=== PATIENT | female | born 1940 | race Caucasian/White ===

== ENCOUNTER 2016-07-27 20:56 | Inpatient (IN) | payer MEDICARE, OTHER ==
[2016-07-27] MEDS ORDERED: SODIUM CHLORIDE 0.9% 1,000 ML IV ONE (22:56)
[2016-07-27] MEDS ORDERED: HYDROmorphone 1 MG/ML 1 ML SYRINGE IVP STA (22:57)
[2016-07-27] MEDS ORDERED: ONDANSETRON 4 MG/2 ML VIAL IVP STA (22:57)
--- NOTE | 2016-07-27 23:09 | ED ---
Abdominal Pain HPI <Diallo Garza - Last Filed: 07/28/16 03:09> - General Source: patient, RN notes reviewed Mode of arrival: wheelchair Limitations: no limitations <Gissel Tillman - Last Filed: 07/28/16 03:36> - General Chief Complaint: Abdominal Pain Stated Complaint: Vomiting/Abdominal Pain Time Seen by Provider: 07/27/16 22:35 - History of Present Illness Initial Comments: Patient is a 76-year-old female presents emergency room for evaluation of abdominal pain. Patient states the pain began Tuesday night. Patient states the pain has been getting progressively worse over the past few days. Patient states the pain woke her up from her sleep so she decided to come here to be evaluated. Patient states the pain is in her left upper quadrant and radiates to her back. Patient states she's never had pain like this before. Patient states the pain makes her very nauseated and she begins dry heaving. Patient states she has a history of a partial hysterectomy and a total hysterectomy. Patient also states she has history of appendectomy. Patient denies pain or burning during urination, trouble urinating or blood in urine. Patient denies chest pain or shortness of breath. Patient states she has a history of diabetes , COPD. Patient states she has a history of a quadruple bypass in 1999. Patient also states she has an aortic aneurysm. Patient states she's having constant sharp pain in her left upper quadrant. Patient states and taking pain medications at home with no relief of symptoms. (Gissel Tillman) - Related Data Home Medications Medication Instructions Recorded Confirmed Ezetimibe [Zetia] 10 mg PO DAILY 11/20/13 07/27/16 Lovastatin [Mevacor] 10 mg PO HS 11/20/13 07/27/16 glipiZIDE XL [Glucotrol XL] 10 mg PO BID 11/20/13 07/27/16 HYDROcodone/APAP 7.5-325MG [[place] 1 tab PO Q6HR PRN 07/11/15 07/27/16 7.5-325] sitaGLIPtin PHOS/metFORMIN HCL 1 tab PO BID 07/11/15 07/27/16 [Janumet 50-1,000 mg Tablet] Metoprolol Tartrate [Lopressor] 50 mg PO BID 07/27/16 07/27/16 Allergies Allergy/AdvReac Type Severity Reaction Status Date / Time cortisone AdvReac PAIN Verified 07/27/16 23:01 procaine HCl [From Novocain] AdvReac pain Verified 07/27/16 23:01 allergy medicines AdvReac "dries me Uncoded 07/27/16 23:01 out, bloody noses,generalized pain" Review of Systems ROS Other: All systems not noted in ROS Statement are negative. <Diallo Garza - Last Filed: 07/28/16 03:09> ROS Other: All systems not noted in ROS Statement are negative. <Gissel Tillman - Last Filed: 07/28/16 03:36> ROS Statement: Those systems with pertinent positive or pertinent negative responses have been documented in the HPI. Past Medical History Past Medical History: COPD, Diabetes Mellitus, Hyperlipidemia, Hypertension, Myocardial Infarction ([place]), Sleep Apnea/CPAP/BIPAP Additional Past Medical History / Comment(s): parkinsonism Last Myocardial Infarction Date:: 1999 History of Any Multi-Drug Resistant Organisms: None Reported Past Surgical History: Appendectomy, Coronary Bypass/CABG, Heart Catheterization , Hysterectomy Past Anesthesia/Blood Transfusion Reactions: No Reported Reaction Past Psychological History: No Psychological Hx Reported Smoking Status: Former smoker Past Alcohol Use History: None Reported Past Drug Use History: None Reported <Gissel Tillman - Last Filed: 07/28/16 03:36> General Exam <Diallo Garza - Last Filed: 07/28/16 03:09> Limitations: no limitations General appearance: alert, in no apparent distress Head exam: Present: atraumatic, normocephalic, normal inspection Eye exam: Present: normal appearance ENT exam: Present: normal exam Neck exam: Present: normal inspection Respiratory exam: Present: normal lung sounds bilaterally. Absent: respiratory distress Cardiovascular Exam: Present: regular rate, normal rhythm, normal heart sounds GI/Abdominal exam: Present: soft, tenderness (Left upper quadrant). Absent: distended, guarding, rebound Extremities exam: Present: normal inspection Back exam: Present: normal inspection Neurological exam: Present: alert, oriented X3, CN II-XII intact, normal gait Psychiatric exam: Present: normal affect, normal mood Skin exam: Present: warm, dry, intact, normal color. Absent: rash <Gissel Tillman - Last Filed: 07/28/16 03:36> - General Exam Comments Initial Comments: Laying in exam room, no acute distress. (Gissel Tillman) Medical Decision Making - Lab Data Result diagrams: 07/27/16 23:45 07/27/16 23:45 <Diallo Garza - Last Filed: 07/28/16 03:09> - Lab Data Result diagrams: 07/27/16 23:45 07/27/16 23:45 - Radiology Data Radiology results: report reviewed, image reviewed <Gissel Tillman - Last Filed: 07/28/16 03:36> - Medical Decision Making Patient is a 76-year-old female presents to the emergency room for evaluation of left upper quadrant pain. Labs significant for hyperkalemia and renal insufficiency. Patient given D50, insulin and Kayexalate. CT abdomen/pelvis without contrast shows a 8 mm left ureteral stone. Patient states she's felt better after pain medications given. Case discussed with Dr. Garza. Dr. Garza discussed case with Dr. Lazcano. Patient will be admitted under Dr. Jim with urology consult. (Gissel Tillman) - Lab Data Lab Results 07/27/16 07/27/16 07/27/16 Range/Units 23:45 23:45 23:45 WBC 13.5 H (3.8-10.6) k/uL RBC 4.24 (3.80-5.40) m/uL Hgb 13.5 (11.4-16.0) gm/dL Hct 42.2 (34.0-46.0) % MCV 99.4 (80.0-100.0) fL MCH 31.7 (25.0-35.0) pg MCHC 31.9 (31.0-37.0) g/dL RDW 15.4 (11.5-15.5) % Plt Count 218 (150-450) k/uL Neutrophils % 88 % Lymphocytes % 7 % Monocytes % 4 % Eosinophils % 0 % Basophils % 0 % Neutrophils # 11.9 H (1.3-7.7) k/uL Lymphocytes # 0.9 L (1.0-4.8) k/uL Monocytes # 0.5 (0-1.0) k/uL Eosinophils # 0.0 (0-0.7) k/uL Basophils # 0.0 (0-0.2) k/uL Hypochromasia Slight Macrocytosis Slight Sodium 138 (137-145) mmol/L Potassium 6.5 H* (3.5-5.1) mmol/L Chloride 105 (98-107) mmol/L Carbon Dioxide 17 L (22-30) mmol/L Anion Gap 16 mmol/L BUN 39 H (7-17) mg/dL Creatinine 1.90 H (0.52-1.04) mg/dL Est GFR (MDRD) Af Amer 31 (>60 ml/min/1.73 sqM) Est GFR (MDRD) Non-Af 26 (>60 ml/min/1.73 sqM) Glucose 208 H (74-99) mg/dL Calcium 9.5 (8.4-10.2) mg/dL Magnesium 2.0 (1.6-2.3) mg/dL Total Bilirubin 0.7 (0.2-1.3) mg/dL AST 19 (14-36) U/L ALT 23 (9-52) U/L Alkaline Phosphatase 92 (38-126) U/L Total Protein 8.9 H (6.3-8.2) g/dL Albumin 4.6 (3.5-5.0) g/dL Amylase 62 (30-110) U/L Lipase 163 (23-300) U/L Urine Color Light Yellow Urine Appearance Clear (Clear) Urine pH 5.5 (5.0-8.0) Ur Specific [place] 1.012 (1.001-1.035) Urine Protein 2+ H (Negative) Urine Glucose (UA) 3+ H (Negative) Urine Ketones Negative (Negative) Urine Blood Small H (Negative) Urine Nitrite Negative (Negative) Urine Bilirubin Negative (Negative) Urine Urobilinogen <2.0 (<2.0) mg/dL Ur Leukocyte Esterase Small H (Negative) Urine RBC 1 (0-5) /hpf Urine WBC 16 H (0-5) /hpf Urine WBC Clumps Rare H (None) /hpf Ur Squamous Epith Cells 1 (0-4) /hpf Amorphous Sediment Rare H (None) /hpf Urine Bacteria Rare H (None) /hpf Hyaline Casts 1 (0-2) /lpf Urine Mucus Rare H (None) /hpf Disposition <Diallo Garza - Last Filed: 07/28/16 03:09> Decision Date: 07/28/16 <Gissel Tillman - Last Filed: 07/28/16 03:36> Clinical Impression: Hyperkalemia, Left ureteral stone, Dehydration, Renal insufficiency, Nausea & vomiting Disposition: ADMITTED IP TO THIS [facility] Condition: Stable
[2016-07-28 00:02] LABS: Basophils % (A) 0 %; CH 31.8; CHCM 32.2; Eosinophils % (A) 0 %; HCT 42.2 % (34.0-46.0); HGB 13.5 gm/dL (11.4-16.0); Hypochromasia Slight; Luc # (Auto) 0.11; Luc % (Auto) 1; Lymphocytes # (A) 0.9 k/uL (1.0-4.8); Lymphocytes % (A) 7 %; MCH 31.7 pg (25.0-35.0); MCHC 31.9 g/dL (31.0-37.0); MCV 99.4 fL (80.0-100.0); Macrocytosis Slight; Mean Platelet Volume 6.8; Monocytes # (A) 0.5 k/uL (0-1.0); Monocytes % (A) 4 %; Neutrophils # (A) 11.9 k/uL (1.3-7.7); Neutrophils % (A) 88 %; RBC 4.24 m/uL (3.80-5.40); RDW 15.4 % (11.5-15.5); WBC 13.5 k/uL (3.8-10.6); WBC (Perox) 14.01
[2016-07-28 00:11] LABS: Calcium 9.5 mg/dL (8.4-10.2); Total Bilirubin 0.7 mg/dL (0.2-1.3); Total Protein 8.9 g/dL (6.3-8.2)
[2016-07-28 00:24] LABS: Amorphous Sediment,Urine Rare /hpf; Appearance,Urine Clear (Clear); Bacteria,Urine Rare /hpf; Bilirubin,Urine Negative (Negative); Glucose,Urine (UA) 3+ (Negative); Ketones,Urine Negative (Negative); Leukocyte Esterase,Urine Small (Negative); Mucus,Urine Rare /hpf; Nitrite,Urine Negative (Negative); PH, Urine 5.5 (5.0-8.0); Particle Count 1370; Protein,Urine 2+ (Negative); RBC,Urine 1 /hpf (0-5); Specific Gravity,Urine 1.012 (1.001-1.035); Squamous Epithelial Cell,Urine 1 /hpf (0-4); UA Billing (MACRO vs. MICRO) MICRO; Urobilinogen,Urine <2.0 mg/dL (<2.0); WBC,Urine 16 /hpf (0-5)
[2016-07-28 00:27] LABS: Potassium 6.5 mmol/L (3.5-5.1)
[2016-07-28] MEDS ORDERED: DEXTROSE 50%-WATER 50 ML SYRINGE IVP STA (00:41)
[2016-07-28] MEDS ORDERED: INSULIN REGULAR 100 UNIT/ML VIAL IV STA (00:43)
[2016-07-28] MEDS ORDERED: HYDROmorphone 1 MG/ML 1 ML SYRINGE IVP STA (01:01)
[2016-07-28] MEDS ORDERED: ONDANSETRON 4 MG/2 ML VIAL IVP STA (01:01)
[2016-07-28] MEDS: SODIUM POLYSTYRENE SULFONATE 15 GM/60 ML BOTTLE PO STA ×3 (01:26→04:14)
--- NOTE | 2016-07-28 01:52 | XR ---
EXAM: XR Abdomen Complete With XR Chest. CLINICAL HISTORY: Reason: left side abd pain, nausea, vomiting TECHNIQUE: Frontal view of the chest, frontal view of the abdomen/pelvis and upright view of the abdomen. COMPARISON: CT abdomen/pelvis on 11/09/2014 FINDINGS: Lungs: Left basilar atelectasis. Pleural space: Unremarkable. No pneumothorax. Heart: Mild enlargement of the cardiac silhouette. Postsurgical changes of CABG. Atherosclerotic changes in aorta. Mediastinum: Median sternotomy changes. Abdomen: Nonobstructive bowel gas pattern with mild to moderate amount of stool. No free air. Soft tissues: Vascular calcifications noted. Clips in both inguinal regions. Phleboliths in the pelvis. Bones/joints: Degenerative changes of the shoulders and acromioclavicular joints. Degenerative changes of the spine and hips. IMPRESSION: No acute findings.
--- NOTE | 2016-07-28 02:11 | CT ---
EXAM: CT Abdomen and Pelvis Without Intravenous Contrast. CLINICAL HISTORY: Reason: Pain TECHNIQUE: Axial computed tomography images of the abdomen and pelvis without intravenous contrast. CTDI is 37.30 mGy and DLP is 1748.30 mGy-cm This CT exam was performed using one or more of the following dose reduction techniques: automated exposure control, adjustment of the mA and/or kV according to patient size, and/or use of iterative reconstruction technique. COMPARISON: CT abdomen/pelvis on 11/09/2014 FINDINGS: Evaluation of solid organs somewhat limited without IV contrast. Liver: Ceci's lobe configuration of the liver. No focal lesion. Spleen: No focal lesion. Gallbladder: No stones or biliary dilatation. Pancreas: No mass. Adrenal glands: Stable thickening of right greater than left adrenal glands. Kidneys: Atrophy of right greater than left kidneys. 8mm stone in the proximal left ureter with mild left-sided hydronephrosis and perinephric stranding. Punctate stone in the inferior left kidney. Punctate nonobstructing stone in the inferior right kidney. Bowel: Extensive diverticulosis without evidence of diverticulitis. No bowel obstruction or inflammation. Urinary bladder: No wall thickening or mass. Reproductive organs: Status post hysterectomy. Muscles: No mass. Subcutaneous tissues: Tiny fat-containing umbilical hernia. Peritoneal space: No free fluid. Lymph nodes: No lymphadenopathy. Vessels: Extensive atherosclerotic changes of the vasculature with similar mild focal aneurysms of the infrarenal abdominal aorta. Calcifications of the origins of the celiac artery and SMA likely cause narrowing. Bones: Median sternotomy changes noted. Degenerative changes of the spine. No acute fracture or bony lesion. Lung bases: Bibasilar atelectasis and/or scarring. Bronchiectasis and air cysts noted in the lower lobes. Other: Mild cardiomegaly with possible septal lipoma again noted. Coronary artery calcifications. Abandoned leads noted. IMPRESSION: 1. Proximal left ureteral stone measuring 8 mm with mild left-sided hydronephrosis and perinephric stranding, compatible with a component of mild obstruction. Punctate stone in the inferior left kidney. Punctate nonobstructing stone in the inferior right kidney. 2. Extensive diverticulosis without evidence of diverticulitis.
[2016-07-28] MEDS ORDERED: SODIUM CHLORIDE 0.9% 1,000 ML IV ONE (02:22)
[2016-07-28] MEDS ORDERED: LABETALOL 5 MG/ML VIAL MDV IVP STA (02:22)
[2016-07-28] MEDS ORDERED: NALOXONE 0.4 MG/ML 1 ML VIAL IV PRN (03:05)
[2016-07-28] MEDS ORDERED: ACETAMINOPHEN TAB 325 MG TAB PO PRN (03:05)
[2016-07-28] MEDS ORDERED: ALBUTEROL NEBULIZED 2.5 MG/3 ML INHALATION STA ×2 (03:09→11:23)
[2016-07-28] MEDS: SODIUM CHLORIDE 0.9% 1,000 ML IV SCH ×2 (03:51→17:19)
[2016-07-28 04:49] VITALS: BMI 36.6
[2016-07-28] MEDS: hydrALAZINE HCL 20 MG/ML 1 ML VIAL IVP PRN (05:39)
[2016-07-28 07:03] LABS: Glucose,Whole Blood 181 mg/dL (75-99)
[2016-07-28] MEDS: ALBUTEROL NEBULIZED 2.5 MG/3 ML INHALATION SCH ×6 (08:24→23:49)
[2016-07-28 09:47] LABS: Calcium 8.4 mg/dL (8.4-10.2); Total Bilirubin 0.6 mg/dL (0.2-1.3); Total Protein 7.6 g/dL (6.3-8.2)
[2016-07-28 10:08] LABS: Potassium 6.5 mmol/L (3.5-5.1)
[2016-07-28] MEDS: HYDROmorphone 1 MG/ML 1 ML SYRINGE IV PRN (10:13)
[2016-07-28] MEDS ORDERED: metFORMIN 500 MG TAB PO SCH (10:15)
--- NOTE | 2016-07-28 10:19 | P.GSCN ---
History of Present Illness Consult date: 07/28/16 History of present illness: Patient is a 76-year-old female admitted to the hospital with significant left renal colic for 3 days. She was evaluated and identified to have an 8 mm proximal left ureteral stone with hydronephrosis. There is no obvious infection. She does have a history of stones. She has had pain nausea and vomiting. Her creatinine was elevated as expected due to the obstruction. We' re asked see the patient for urologic evaluation. She is still having some discomfort at this point in time. His no fever. Her vital signs are stable. Her urine does not look infected. Review of Systems - Constitutional Denies fever, Denies weight loss - Respiratory Denies cough, Denies 7 - Gastrointestinal Reports abdominal pain, Reports nausea - Genitourinary Genitourinary: Reports as per HPI Past Medical History Past Medical History: COPD, Diabetes Mellitus, Hyperlipidemia, Hypertension, Myocardial Infarction ([place]), Sleep Apnea/CPAP/BIPAP Additional Past Medical History / Comment(s): parkinsonism Last Myocardial Infarction Date:: 1999 History of Any Multi-Drug Resistant Organisms: None Reported Past Surgical History: Appendectomy, Coronary Bypass/CABG, Heart Catheterization , Hysterectomy Past Anesthesia/Blood Transfusion Reactions: No Reported Reaction Past Psychological History: No Psychological Hx Reported Smoking Status: Former smoker Past Alcohol Use History: None Reported Past Drug Use History: None Reported - Past Family History Mother Family Medical History: Myocardial Infarction ([place]) Additional Family Medical History / Comment(s): mother of [place] Medications and Allergies Home Medications Medication Instructions Recorded Confirmed Type Ezetimibe [Zetia] 10 mg PO DAILY 11/20/13 07/27/16 History Lovastatin [Mevacor] 10 mg PO HS 11/20/13 07/27/16 History glipiZIDE XL [Glucotrol XL] 10 mg PO BID 11/20/13 07/27/16 History HYDROcodone/APAP 7.5-325MG [[place] 1 tab PO Q6HR PRN 07/11/15 07/27/16 History 7.5-325] sitaGLIPtin PHOS/metFORMIN HCL 1 tab PO BID 07/11/15 07/27/16 History [Janumet 50-1,000 mg Tablet] Metoprolol Tartrate [Lopressor] 50 mg PO BID 07/27/16 07/27/16 History Allergies Allergy/AdvReac Type Severity Reaction Status Date / Time cortisone AdvReac PAIN Verified 07/27/16 23:01 procaine HCl [From Novocain] AdvReac pain Verified 07/27/16 23:01 allergy medicines AdvReac "dries me Uncoded 07/27/16 23:01 out, bloody noses,generalized pain" Surgical - Exam Vital Signs Temp Pulse Resp BP Pulse Ox 98.5 F 62 22 227/102 96 07/27/16 20:58 07/27/16 20:58 07/27/16 20:58 07/27/16 20:58 07/27/16 20:58 - General well developed, well nourished, moderate pain, obese - Eyes PERRL - ENT no hearing loss - Neck trachea midline - Respiratory normal expansion, normal respiratory effort - Cardiovascular Rhythm: regular - Abdomen Mild tenderness in the left upper quadrant and flank Abdomen: soft - Neurologic normal coordination, normal sensation - Musculoskeletal normal posture - Psychiatric oriented to time, oriented to person, oriented to place, speech is normal, memory intact Results - Labs 07/27/16 23:45 07/28/16 08:12 Abnormal Lab Results - Last 24 Hours (Table) 07/28/16 07/28/16 Range/Units 07:01 08:12 Sodium 136 L (137-145) mmol/L Potassium 6.5 H* (3.5-5.1) mmol/L Chloride 108 H (98-107) mmol/L Carbon Dioxide 16 L (22-30) mmol/L BUN 37 H (7-17) mg/dL Creatinine 1.77 H (0.52-1.04) mg/dL Glucose 186 H (74-99) mg/dL POC Glucose (mg/dL) 181 H (75-99) mg/dL Diabetes panel 07/28/16 Range/Units 08:12 Sodium 136 L (137-145) mmol/L Potassium 6.5 H* (3.5-5.1) mmol/L Chloride 108 H (98-107) mmol/L Carbon Dioxide 16 L (22-30) mmol/L BUN 37 H (7-17) mg/dL Creatinine 1.77 H (0.52-1.04) mg/dL Glucose 186 H (74-99) mg/dL Calcium 8.4 (8.4-10.2) mg/dL AST 16 (14-36) U/L ALT 23 (9-52) U/L Alkaline Phosphatase 76 (38-126) U/L Total Protein 7.6 (6.3-8.2) g/dL Albumin 3.8 (3.5-5.0) g/dL Calcium panel 07/28/16 Range/Units 08:12 Calcium 8.4 (8.4-10.2) mg/dL Albumin 3.8 (3.5-5.0) g/dL Pituitary panel 07/28/16 Range/Units 08:12 Sodium 136 L (137-145) mmol/L Potassium 6.5 H* (3.5-5.1) mmol/L Chloride 108 H (98-107) mmol/L Carbon Dioxide 16 L (22-30) mmol/L BUN 37 H (7-17) mg/dL Creatinine 1.77 H (0.52-1.04) mg/dL Glucose 186 H (74-99) mg/dL Calcium 8.4 (8.4-10.2) mg/dL Adrenal panel 07/28/16 Range/Units 08:12 Sodium 136 L (137-145) mmol/L Potassium 6.5 H* (3.5-5.1) mmol/L Chloride 108 H (98-107) mmol/L Carbon Dioxide 16 L (22-30) mmol/L BUN 37 H (7-17) mg/dL Creatinine 1.77 H (0.52-1.04) mg/dL Glucose 186 H (74-99) mg/dL Calcium 8.4 (8.4-10.2) mg/dL Total Bilirubin 0.6 (0.2-1.3) mg/dL AST 16 (14-36) U/L ALT 23 (9-52) U/L Alkaline Phosphatase 76 (38-126) U/L Total Protein 7.6 (6.3-8.2) g/dL Albumin 3.8 (3.5-5.0) g/dL Assessment and Plan Plan: Impression: Left ureteral colic due to 8 mm proximal ureteral stone. History of kidney stones. History of diabetes, cardiac disease and morbid obesity. Recommendation: We will try to get the patient comfortable with pain medicine. Due to the size of the stone she probably eventually is going to need either shockwave therapy ureteroscopy. I will follow this patient with you.
[2016-07-28 11:03] LABS: Glucose,Whole Blood 191 mg/dL (75-99)
[2016-07-28] MEDS: METOPROLOL TARTRATE 50 MG TAB PO SCH ×2 (11:19→21:02)
[2016-07-28] MEDS: glipiZIDE 10 MG TAB PO SCH ×2 (11:19→17:49)
[2016-07-28] MEDS: EZETIMIBE 10 MG TAB PO SCH (11:19)
[2016-07-28] MEDS: LINAGLIPTIN 5 MG TABLET PO SCH (11:20)
[2016-07-28] MEDS ORDERED: SODIUM BICARB 8.4% 50 ML SYR (1 MEQ/ML) IV STA ×2 (11:25→11:41)
[2016-07-28] MEDS ORDERED: INSULIN REGULAR 100 UNIT/ML VIAL IV ONE (11:27)
[2016-07-28] MEDS ORDERED: SODIUM POLYSTYRENE SULFONATE 15 GM/60 ML BOTTLE PO STA ×2 (11:30→15:14)
[2016-07-28] MEDS ORDERED: DEXTROSE 50%-WATER 50 ML SYRINGE IVP ONE (11:30)
[2016-07-28] MEDS ORDERED: ALBUTEROL NEB (CONC) 2.5 MG/0.5 ML INHALATION STA (11:39)
--- NOTE | 2016-07-28 11:53 | P.NPCON ---
History of Present Illness - Reason for Consult acute renal failure - History of Present Illness Reason for consultation: Acute kidney injury and hyperkalemia History of present illness: Patient is a 76-year-old female seen in renal consultation for acute kidney injury and hyperkalemia. Her creatinine from November 2014 was 1 and elevated at 1.9 this admission. It is a little improved to 1.77 today. However she remains hyperkalemic with a potassium level of 6.5. She is also acidotic with a bicarbonate level of 16 this morning. Patient presented to the hospital with abdominal pain along with nausea and vomiting. She was noted to have a left sided 8mm kidney stone with mild hydronephrosis. She states she's been voiding. Denies hematuria. Her oral intake has been poor and she's been dry heaving. Still not able to tolerate much oral intake. Denies use of NSAIDs. Denies any family history of renal disease. She does have long- standing history of diabetes mellitus and has refused insulin. She is maintained on oral medications including metformin. Abdominal pain is somewhat improved. She is currently maintained on normal saline running at 125 mL an hour. Hemodynamically stable. Vital signs are stable. General: The patient appeared well nourished and normally developed. HEENT: Head exam is unremarkable. Neck is without jugular venous distension. LUNGS: Lungs are clear to auscultation and percussion. Breath sounds decreased. HEART: Rate and Rhythm are regular. First and second heart sounds normal. No murmurs, rubs or gallops. ABDOMEN: Abdominal exam reveals normal bowel sounds. Non-tender and non- distended. No evidence of peritonitis. EXTREMITITES: No clubbing, cyanosis, or edema. Past Medical History Past Medical History: COPD, Diabetes Mellitus, Hyperlipidemia, Hypertension, Myocardial Infarction ([place]), Sleep Apnea/CPAP/BIPAP Additional Past Medical History / Comment(s): parkinsonism Last Myocardial Infarction Date:: 1999 History of Any Multi-Drug Resistant Organisms: None Reported Past Surgical History: Appendectomy, Coronary Bypass/CABG, Heart Catheterization , Hysterectomy Past Anesthesia/Blood Transfusion Reactions: No Reported Reaction Past Psychological History: No Psychological Hx Reported Smoking Status: Former smoker Past Alcohol Use History: None Reported Past Drug Use History: None Reported - Past Family History Mother Family Medical History: Myocardial Infarction ([place]) Additional Family Medical History / Comment(s): mother of [place] Medications and Allergies Home Medications Medication Instructions Recorded Confirmed Type Ezetimibe [Zetia] 10 mg PO DAILY 11/20/13 07/27/16 History Lovastatin [Mevacor] 10 mg PO HS 11/20/13 07/27/16 History glipiZIDE XL [Glucotrol XL] 10 mg PO BID 11/20/13 07/27/16 History HYDROcodone/APAP 7.5-325MG [[place] 1 tab PO Q6HR PRN 07/11/15 07/27/16 History 7.5-325] sitaGLIPtin PHOS/metFORMIN HCL 1 tab PO BID 07/11/15 07/27/16 History [Janumet 50-1,000 mg Tablet] Metoprolol Tartrate [Lopressor] 50 mg PO BID 07/27/16 07/27/16 History Allergies Allergy/AdvReac Type Severity Reaction Status Date / Time cortisone AdvReac PAIN Verified 07/27/16 23:01 procaine HCl [From Novocain] AdvReac pain Verified 07/27/16 23:01 allergy medicines AdvReac "dries me Uncoded 07/27/16 23:01 out, bloody noses,generalized pain" Physical Exam Vitals: Vital Signs Temp Pulse Pulse Resp BP BP Pulse Ox 07/28/16 08:49 60 07/28/16 08:33 64 07/28/16 07:00 97.6 F 55 L 16 187/76 95 07/28/16 04:53 97.6 F 61 16 182/79 99 07/28/16 04:12 60 16 167/95 98 07/28/16 03:33 60 07/28/16 03:23 61 Intake and Output 07/27/16 07/28/16 07/28/16 22:59 06:59 14:59 Intake Total 125 Balance 125 Intake: IV 125 Sodium Chloride 0.9% 1, 125 000 ml @ 125 mls/hr IV . Q8H [facility] Rx#:[id number] Other: # Voids 1 Weight 90.718 kg Results - Lab Results Most recent lab results Calcium 8.4 mg/dL (8.4-10.2) 07/28/16 08:12 Magnesium 2.0 mg/dL (1.6-2.3) 07/27/16 23:45 07/27/16 23:45 07/28/16 08:12 Assessment and Plan Plan: Assessment: #1. Nonoliguric acute kidney injury mostly prerenal in nature secondary to poor oral intake along with vomiting. Improving. Creatinine was 1.9 on admission and is down to 1.77 today. #2. Hyperkalemia secondary to acute kidney injury and metabolic acidosis. #3. Metabolic acidosis secondary to acute kidney injury. Metformin can also be a contributing factor. #4. Diabetes mellitus. #5. Left-sided nephrolithiasis and mild hydronephrosis. #6. Pyuria. #7. Proteinuria likely related to diabetic kidney disease. Plan: I will decreased rate of IV fluids to 75 mL an hour. Check urine culture. Rocephin 1 g daily. Medically treat hyperkalemia with 10 units of IV insulin with amp of D50, 20 mg of nebulized albuterol, 3 A of sodium bicarbonate IV push as well as 30 g of Kayexalate. Low potassium diet. Repeat potassium level at 3 PM today. Check postvoid residual and to insert [place] catheter if greater than 250 mL present. Advance diet as tolerated. Start oral sodium bicarbonate supplementation. Discontinue metformin. Thank you for the consultation. I will continue to follow the patient with you during her hospital stay.
[2016-07-28] MEDS ORDERED: SODIUM CHLORIDE 0.9% NEBULIZ 3 ML INHALATION ONE (12:00)
[2016-07-28 17:18] LABS: Glucose,Whole Blood 156 mg/dL (75-99)
--- NOTE | 2016-07-28 19:09 | HP ---
DATE OF ADMISSION: 07/28/2016 PRESENTING COMPLAINT: Abdominal pain. HISTORY OF PRESENTING COMPLAINT: This is a very pleasant 76-year-old patient of Dr. Greg Kline whose chronic stable medical conditions include COPD, diabetes, hyperlipidemia, hypertension, RI in the past, sleep apnea, coronary artery disease, history of coronary artery bypass. Patent for 4 days has been having increasing left flank pain, episodes of nausea. No diarrhea. No fever. She came down to the ER, was found to have a stone in the left ureter and renal failure, hyperkalemia. Earlier today I ordered Kayexalate, sodium bicarb, albuterol breathing treatment and insulin with dextrose. REVIEW OF SYSTEMS: CONSTITUTIONAL: Tired. HEENT: None. RESPIRATORY: Baseline some shortness of breath. CARDIOVASCULAR: None. GASTROINTESTINAL: None. GENITOURINARY: None. MUSCULOSKELETAL: Some pain in the joints. DERMATOLOGICAL: None. HEMATOLOGIC: None. LYMPHATICS: None. PSYCHIATRY: None. NEUROLOGICAL: None. PAST HISTORY: 1. COPD. 2. Diabetes, type 2. 3. Hyperlipidemia. 4. Hypertension. 5. Sleep apnea. 6. Some tremors. 7. Questionable diagnosis of Parkinson's. 8. Coronary artery disease with history of coronary artery bypass. PAST SURGICAL HISTORY: Appendectomy, coronary artery bypass. SOCIAL HISTORY: Patient is an ex-smoker. Lives with her nephew. No alcohol. FAMILY HISTORY: Mother of heart attack. HOME MEDICATIONS: 1. Janumet one tablet p.o. b.i.d. 2. Glucotrol XL 10 mg p.o. b.i.d. 3. Lopressor 50 mg p.o. b.i.d. 4. Mevacor 10 mg p.o. at bedtime. 5. [place] 7.5 one tablet q.6 p.r.n. 6. Zetia 10 mg p.o. daily. ALLERGIES: 1. CORTISONE. 2. PROCAINE. On examination, temperature 98.5, pulse 62, respiration 22, blood pressure 227/102 on presentation, pulse ox 96% on room air. Repeat blood pressure was 167/73. GENERAL APPEARANCE: Well built; BMI 36.6. Sitting up. Not in distress. EYES: Pupils equal. Conjunctivae normal. HEENT: Receding hairline. External appearance of nose and ears normal. Oral cavity with dry mucous membrane. NECK: JVD not raised. Mass not palpable. RESPIRATORY: Effort normal. LUNGS: Decreased breath sounds. CARDIOVASCULAR: First and second sounds normal. No edema. ABDOMEN: Left-sided tenderness. No guarding or rigidity. Liver and spleen not palpable. LYMPHATIC: No lymph node palpable in neck or axillae. PSYCHIATRY: Alert and oriented x3. Mood and affect normal. NEUROLOGICAL: Pupils equal. Cranial nerves grossly intact. Power and sensation grossly intact. MUSCULOSKELETAL: Evidence of osteoarthritis in multiple joints. INVESTIGATIONS: White count 13.5, hemoglobin 13.5, potassium 6.5. BUN 39, creatinine 1.90. UA positive for leukocyte esterase, WBC. Repeat potassium is 6.5. BUN 39, creatinine 9.10. CT scan of the abdomen and pelvis showed proximal left ureter stone measuring 8 mm with mild left-sided hydronephrosis and perinephric stranding and a punctate stone in the inferior left kidney, extensive diverticulosis. ASSESSMENT: 1. Left urinary tract stone causing some left-sided hydronephrosis causing an acute presentation. 2. Acute renal failure, stage III. Do not know if there is a chronic element. Could be diabetic nephropathy and hypertensive nephrosclerosis. 3. Severe hyperkalemia from renal failure. 4. Hyperlipidemia. 5. Essential hypertension, uncontrolled on presentation. 6. Coronary artery disease with prior history of coronary artery bypass graft. 7. Sleep apnea. 8. Obesity; body mass index of 36.6. 9. Metabolic acidosis, multifactorial. PLAN: For hyperkalemia patient did receive Kayexalate, bicarb, insulin and nebulized bronchodilator. Urology was consulted. Patient is getting IV fluids and also getting sodium bicarb IV, both for the potassium and renal failure. Care was discussed with the patient. Nephrology is also consulted. Follow electrolytes closely.
[2016-07-28 20:12] LABS: Glucose,Whole Blood 122 mg/dL (75-99)
[2016-07-28] MEDS: ATORVASTATIN 10 MG TAB PO SCH (21:02)
[2016-07-28] MEDS: SODIUM BICARBONATE TAB 650 MG TAB PO SCH (21:02)
[2016-07-28] MEDS ORDERED: ALBUTEROL NEBULIZED 2.5 MG/3 ML INHALATION PRN (23:50)
[2016-07-29] MEDS: HYDROcodone/APAP 7.5-325MG 1 EACH TAB PO PRN ×3 (02:10→18:22)
[2016-07-29] MEDS: ALBUTEROL NEBULIZED 2.5 MG/3 ML INHALATION SCH ×4 (07:02→20:25)
[2016-07-29 07:09] LABS: Glucose,Whole Blood 94 mg/dL (75-99)
[2016-07-29] MEDS: SODIUM BICARBONATE TAB 650 MG TAB PO SCH ×2 (07:16→21:00)
[2016-07-29] MEDS: EZETIMIBE 10 MG TAB PO SCH (07:16)
[2016-07-29] MEDS: glipiZIDE 10 MG TAB PO SCH ×2 (07:16→17:32)
[2016-07-29] MEDS: LINAGLIPTIN 5 MG TABLET PO SCH (07:16)
[2016-07-29] MEDS: METOPROLOL TARTRATE 50 MG TAB PO SCH ×2 (07:16→21:00)
[2016-07-29 08:34] LABS: Calcium 8.3 mg/dL (8.4-10.2); Potassium 4.8 mmol/L (3.5-5.1)
[2016-07-29] MEDS: SODIUM CHLORIDE 0.9% 1,000 ML IV SCH ×2 (09:23→21:01)
--- NOTE | 2016-07-29 10:54 | P.PN ---
Subjective Patient is seen in follow-up for acute kidney injury and hyperkalemia. Potassium was 6.6 yesterday and is down to 4.8 today with medical management. Her creatinine was 1.9 on admission and did improve to 1.77 yesterday but is slightly elevated today at 1.88. She is currently maintained on normal saline at 75 mL an hour. Denies chest pain or shortness of breath. Appetite is fair. Admits to good urine output. No evidence of urinary retention. Vital signs are stable. General: The patient appeared well nourished and normally developed. HEENT: Head exam is unremarkable. Neck is without jugular venous distension. LUNGS: Lungs are clear to auscultation and percussion. Breath sounds decreased. HEART: Rate and Rhythm are regular. First and second heart sounds normal. No murmurs, rubs or gallops. ABDOMEN: Abdominal exam reveals normal bowel sounds. Non-tender and non- distended. No evidence of peritonitis. EXTREMITITES: No clubbing, cyanosis, or edema. Objective - Vital Signs Vital signs: Vital Signs Temp 97.9 F 07/29/16 07:00 Pulse 62 07/29/16 08:00 Resp 18 07/29/16 08:00 BP 208/83 07/29/16 07:00 Pulse Ox 100 07/29/16 07:00 Intake & Output 07/28/16 07/29/16 07/29/16 18:59 06:59 18:59 Intake Total 240 600 240 Balance 240 600 240 Weight 90.718 kg 90.718 kg 90.718 kg Intake: IV 600 Sodium Chloride 0.9% 1, 600 000 ml @ 75 mls/hr IV . [id number] [facility] Rx#:[id number] Oral 240 240 Other: Voiding Method Bedside Commode Bedside Commode Toilet Bedside Commode # Voids 1 2 1 - Labs CBC & Chem 7: 07/27/16 23:45 07/29/16 07:33 Labs: Abnormal Lab Results - Last 24 Hours (Table) 07/28/16 07/28/16 07/28/16 Range/Units 11:01 11:32 15:09 Potassium 6.6 H* 5.3 H (3.5-5.1) mmol/L BUN (7-17) mg/dL Creatinine (0.52-1.04) mg/dL Glucose (74-99) mg/dL POC Glucose (mg/dL) 191 H (75-99) mg/dL Calcium (8.4-10.2) mg/dL 07/28/16 07/28/16 07/29/16 Range/Units 17:18 20:05 07:33 Potassium (3.5-5.1) mmol/L BUN 35 H (7-17) mg/dL Creatinine 1.88 H (0.52-1.04) mg/dL Glucose 105 H (74-99) mg/dL POC Glucose (mg/dL) 156 H 122 H (75-99) mg/dL Calcium 8.3 L (8.4-10.2) mg/dL Assessment and Plan Plan: Assessment: #1. Nonoliguric acute kidney injury mostly prerenal in nature secondary to poor oral intake along with vomiting. Improving. Creatinine peaked at 1.9 this admission and is 1.88 today. #2. Hyperkalemia secondary to acute kidney injury and metabolic acidosis. Improved. #3. Metabolic acidosis secondary to acute kidney injury. Metformin can also be a contributing factor. Improved. #4. Diabetes mellitus. #5. Left-sided nephrolithiasis and mild hydronephrosis. #6. Pyuria. #7. Proteinuria likely related to diabetic kidney disease. Plan: Continue normal saline to be run at 75 mL an hour. Await urine culture. Continue Rocephin 1 g daily. Maintain Low potassium diet. Continue oral sodium bicarbonate supplementation. Discontinued metformin. Will repeat urinalysis and quantify proteinuria once GFR returns to baseline.
--- NOTE | 2016-07-29 11:08 | P.PN ---
Subjective The patient is still having pain from her kidney stone. I will get a KUB to see if I can see the stone so as to determine whether the stone has moved and potential treatment with either shockwave lithotripsy or ureteroscopy Objective - Vital Signs Vital signs: Vital Signs Temp 97.9 F 07/29/16 07:00 Pulse 62 07/29/16 08:00 Resp 18 07/29/16 08:00 BP 208/83 07/29/16 07:00 Pulse Ox 100 07/29/16 07:00 Intake & Output 07/28/16 07/29/16 07/29/16 18:59 06:59 18:59 Intake Total 240 600 240 Balance 240 600 240 Weight 90.718 kg 90.718 kg 90.718 kg Intake: IV 600 Sodium Chloride 0.9% 1, 600 000 ml @ 75 mls/hr IV . [id number] [facility] Rx#:[id number] Oral 240 240 Other: Voiding Method Bedside Commode Bedside Commode Toilet Bedside Commode # Voids 1 2 1 - Labs CBC & Chem 7: 07/27/16 23:45 07/29/16 07:33 Labs: Abnormal Lab Results - Last 24 Hours (Table) 07/28/16 07/28/16 07/28/16 Range/Units 11:32 15:09 17:18 Potassium 6.6 H* 5.3 H (3.5-5.1) mmol/L BUN (7-17) mg/dL Creatinine (0.52-1.04) mg/dL Glucose (74-99) mg/dL POC Glucose (mg/dL) 156 H (75-99) mg/dL Calcium (8.4-10.2) mg/dL 07/28/16 07/29/16 Range/Units 20:05 07:33 Potassium (3.5-5.1) mmol/L BUN 35 H (7-17) mg/dL Creatinine 1.88 H (0.52-1.04) mg/dL Glucose 105 H (74-99) mg/dL POC Glucose (mg/dL) 122 H (75-99) mg/dL Calcium 8.3 L (8.4-10.2) mg/dL
[2016-07-29] MEDS: ONDANSETRON 4 MG/2 ML VIAL IVP PRN ×2 (11:12→22:52)
[2016-07-29 11:47] LABS: Glucose,Whole Blood 182 mg/dL (75-99)
--- NOTE | 2016-07-29 11:58 | XR ---
Abdomen HISTORY: Nausea and vomiting, kidney stones Correlation to prior abdomen third of May 2009, CT abdomen pelvis 28 July 2016 Lung bases show some possible atelectasis or scarring, epicardial pacing leads are present. There is no pneumoperitoneum or bowel obstruction evident. Ureteral calculus may be obscured by bowel gas. Phl eboliths present in the left hemipelvis. Degenerative disc changes in the visualized spine. Vascular calcifications are present. IMPRESSION: Left ureteral calculus seen on prior CT is obscured
[2016-07-29] MEDS: HYDROmorphone 1 MG/ML 1 ML SYRINGE IV PRN ×2 (12:00→22:48)
[2016-07-29 17:08] LABS: Glucose,Whole Blood 206 mg/dL (75-99)
[2016-07-29 20:33] LABS: Glucose,Whole Blood 154 mg/dL (75-99)
[2016-07-29] MEDS: ATORVASTATIN 10 MG TAB PO SCH (21:00)
[2016-07-29] MEDS: INSULIN LISPRO (humaLOG) 300 UNIT/3 ML VIAL SQ SCH (21:16)
[2016-07-30 00:54] LABS: Hemoglobin A1C 5.9 % (4.2-6.1)
[2016-07-30] MEDS: HYDROcodone/APAP 7.5-325MG 1 EACH TAB PO PRN ×3 (01:47→23:28)
[2016-07-30 07:48] LABS: Glucose,Whole Blood 138 mg/dL (75-99)
[2016-07-30] MEDS: ALBUTEROL NEBULIZED 2.5 MG/3 ML INHALATION SCH ×4 (07:54→19:48)
[2016-07-30] MEDS: ONDANSETRON 4 MG/2 ML VIAL IVP PRN ×2 (07:55→21:13)
[2016-07-30] MEDS: HYDROmorphone 1 MG/ML 1 ML SYRINGE IV PRN ×2 (07:55→21:14)
[2016-07-30 08:34] LABS: Calcium 8.4 mg/dL (8.4-10.2); Potassium 5.3 mmol/L (3.5-5.1)
--- NOTE | 2016-07-30 08:43 | P.PN ---
Subjective Patient is seen in follow-up for acute kidney injury and hyperkalemia. Potassium peaked at 6.6 and was down to 4.8 as of yesterday. It is 5.3 today. Her creatinine was 1.9 on admission and is down to 1.37 today. She is currently maintained on normal saline at 75 mL an hour. Denies chest pain or shortness of breath. Appetite is fair. Admits to good urine output. No evidence of urinary retention. Vital signs are stable. General: The patient appeared well nourished and normally developed. HEENT: Head exam is unremarkable. Neck is without jugular venous distension. LUNGS: Lungs are clear to auscultation and percussion. Breath sounds decreased. HEART: Rate and Rhythm are regular. First and second heart sounds normal. No murmurs, rubs or gallops. ABDOMEN: Abdominal exam reveals normal bowel sounds. Non-tender and non- distended. No evidence of peritonitis. EXTREMITITES: No clubbing, cyanosis, or edema. Objective - Vital Signs Vital signs: Vital Signs Temp 97.7 F 07/30/16 07:00 Pulse 66 07/30/16 07:00 Resp 17 07/30/16 07:00 BP 232/93 07/30/16 07:00 Pulse Ox 92 L 07/30/16 07:00 Intake & Output 07/29/16 07/30/16 07/30/16 18:59 06:59 18:59 Intake Total 1340 2014 Balance 1340 2014 Weight 90.718 kg 90.718 kg Intake: IV 600 675 Sodium Chloride 0.9% 1, 600 675 000 ml @ 75 mls/hr IV . [id number] [facility] Rx#:[id number] Intake, IV Titration 100 Amount cefTRIAXone 1,000 mg In 100 Sodium Chloride 0.9% 50 ml @ 100 mls/hr IVPB Q24HR [facility] Rx#:[id number] Oral 640 1340 Other: Voiding Method Toilet Toilet Bedside Commode Bedside Commode # Voids 4 2 1 # Bowel Movements 0 0 - Labs CBC & Chem 7: 07/27/16 23:45 07/30/16 07:31 Labs: Abnormal Lab Results - Last 24 Hours (Table) 07/29/16 07/29/16 07/29/16 Range/Units 11:45 17:05 20:10 Sodium (137-145) mmol/L Potassium (3.5-5.1) mmol/L BUN (7-17) mg/dL Creatinine (0.52-1.04) mg/dL Glucose (74-99) mg/dL POC Glucose (mg/dL) 182 H 206 H 154 H (75-99) mg/dL 07/30/16 07/30/16 Range/Units 07:18 07:31 Sodium 135 L (137-145) mmol/L Potassium 5.3 H (3.5-5.1) mmol/L BUN 31 H (7-17) mg/dL Creatinine 1.37 H (0.52-1.04) mg/dL Glucose 135 H (74-99) mg/dL POC Glucose (mg/dL) 138 H (75-99) mg/dL Microbiology - Last 24 Hours (Table) 07/29/16 02:05 Urine Culture - Preliminary Urine,Clean Catch Assessment and Plan Plan: Assessment: #1. Nonoliguric acute kidney injury mostly prerenal in nature secondary to poor oral intake along with vomiting. Improving. Creatinine peaked at 1.9 this admission and is 1.37 today. #2. Hyperkalemia secondary to acute kidney injury and metabolic acidosis. #3. Metabolic acidosis secondary to acute kidney injury. Metformin can also be a contributing factor. Improved. #4. Diabetes mellitus. #5. Left-sided nephrolithiasis and mild hydronephrosis. #6. Pyuria. #7. Proteinuria likely related to diabetic kidney disease. Plan: Decrease normal saline to be run at 50 mL an hour. Await urine culture. Continue Rocephin 1 g daily. Maintain Low potassium diet. Continue oral sodium bicarbonate supplementation. Discontinued metformin. Will repeat urinalysis and quantify proteinuria once GFR returns to baseline.
[2016-07-30] MEDS: METOPROLOL TARTRATE 50 MG TAB PO SCH ×2 (08:51→23:27)
[2016-07-30] MEDS: EZETIMIBE 10 MG TAB PO SCH (08:51)
[2016-07-30] MEDS: glipiZIDE 10 MG TAB PO SCH ×2 (08:52→18:08)
[2016-07-30] MEDS: INSULIN LISPRO (humaLOG) 300 UNIT/3 ML VIAL SQ SCH ×5 (08:52→17:47)
[2016-07-30] MEDS: LINAGLIPTIN 5 MG TABLET PO SCH (08:52)
[2016-07-30] MEDS: amLODIPine 5 MG TAB PO SCH (08:58)
[2016-07-30] MEDS: SODIUM CHLORIDE 0.9% 1,000 ML IV SCH ×3 (09:05→23:29)
--- NOTE | 2016-07-30 09:09 | PN ---
DATE OF SERVICE: 07/29/2016 PRESENTING COMPLAINT: Abdominal pain. INTERVAL HISTORY: This patient presented with left ureteral stone, still have significant pain. Getting IV pain medication actually throwing up. Repeat x-ray is ordered by Dr. Lazcano. Sitting up on a chair. Review of systems done for constitutional, cardiovascular, GI, pulmonary; relevant findings as above. Current medications are reviewed and include IV ceftriaxone, IV fluids. On examination, temperature 97.9, pulse 72, respirations 16, blood pressure 141/92, pulse ox 94% on room air. GENERAL APPEARANCE: Sitting up, ( ) comfortable. EYES: Pupils equal. Conjunctivae normal. NECK: JVD not raised. Mass not palpable. RESPIRATORY: Effort normal. LUNGS: Diminished breath sounds. CARDIOVASCULAR: First and second sounds normal. No edema. ABDOMEN: Left side tender. No guarding or rigidity. PSYCHIATRY: Alert and oriented x3. Mood and affect anxious appearing. INVESTIGATIONS: BUN 35, creatinine 1.88. Potassium 4.8. ASSESSMENT: 1. Left ureter stone causing left-sided hydronephrosis, slow to respond. 2. Acute renal failure, stage III cannot say there is chronic element, could be diabetic nephropathy and hypertensive nephrosclerosis. 3. Severe hyperkalemia from renal failure, improved. 4. Hyperlipidemia. 5. Essential hypertension, uncontrolled on presentation. 6. Coronary artery disease with prior history of coronary artery bypass grafting. 7. Sleep apnea. 8. Obesity, body mass index of 36.6. 9. Metabolic acidosis, multifactorial. PLAN: Patient's potassium did come down nicely. If patient is still not improved by tomorrow, patient may need surgical intervention per Urology. Care was discussed with the patient. Continue supportive care. Patient's metabolic acidosis actually has improved.
[2016-07-30] MEDS: SODIUM BICARBONATE TAB 650 MG TAB PO SCH (10:40)
[2016-07-30 11:41] LABS: Glucose,Whole Blood 175 mg/dL (75-99)
--- NOTE | 2016-07-30 12:18 | P.PN ---
Subjective The patient has a proximal left ureteral stone. Her pain is more controlled at present. KUB shows a stone faintly in the region of L3-L4. The chance of spontaneous passage is small given the stone is about 5 x 8 mm. We discussed treatment options including spontaneous passage, ureteroscopy, shockwave lithotripsy. She would prefer extracorporal shockwave lithotripsy if possible. She can be tried on oral pain medicine. The shockwave therapy would be scheduled for August 09. A make arrangements for this procedure barring any changes in her status that would require earlier intervention. Objective - Vital Signs Vital signs: Vital Signs Temp 97.7 F 07/30/16 07:00 Pulse 66 07/30/16 08:00 Resp 17 07/30/16 08:00 BP 232/93 07/30/16 07:00 Pulse Ox 92 L 07/30/16 07:00 Intake & Output 07/29/16 07/30/16 07/30/16 18:59 06:59 18:59 Intake Total 1340 2014 Balance 1340 2014 Weight 90.718 kg 90.718 kg 90.718 kg Intake: IV 600 675 Sodium Chloride 0.9% 1, 600 675 000 ml @ 75 mls/hr IV . [id number] [facility] Rx#:[id number] Intake, IV Titration 100 Amount cefTRIAXone 1,000 mg In 100 Sodium Chloride 0.9% 50 ml @ 100 mls/hr IVPB Q24HR [facility] Rx#:[id number] Oral 640 1340 Other: Voiding Method Toilet Toilet Toilet Bedside Commode Bedside Commode Bedside Commode # Voids 4 2 1 # Bowel Movements 0 0 0 - Labs CBC & Chem 7: 07/27/16 23:45 07/30/16 07:31 Labs: Abnormal Lab Results - Last 24 Hours (Table) 07/29/16 07/29/16 07/30/16 Range/Units 17:05 20:10 07:18 Sodium (137-145) mmol/L Potassium (3.5-5.1) mmol/L BUN (7-17) mg/dL Creatinine (0.52-1.04) mg/dL Glucose (74-99) mg/dL POC Glucose (mg/dL) 206 H 154 H 138 H (75-99) mg/dL 07/30/16 07/30/16 Range/Units 07:31 11:39 Sodium 135 L (137-145) mmol/L Potassium 5.3 H (3.5-5.1) mmol/L BUN 31 H (7-17) mg/dL Creatinine 1.37 H (0.52-1.04) mg/dL Glucose 135 H (74-99) mg/dL POC Glucose (mg/dL) 175 H (75-99) mg/dL Microbiology - Last 24 Hours (Table) 07/29/16 02:05 Urine Culture - Preliminary Urine,Clean Catch
[2016-07-30 13:43] LABS: Glucose,Whole Blood 221 mg/dL (75-99)
[2016-07-30 17:29] LABS: Glucose,Whole Blood 109 mg/dL (75-99)
[2016-07-30 20:35] LABS: Glucose,Whole Blood 102 mg/dL (75-99)
--- NOTE | 2016-07-30 22:46 | PN ---
DATE OF SERVICE: 07/30/2016 PRESENTING COMPLAINT: Abdominal pain. INTERVAL HISTORY: This is a patient who presented with left ureteral stone; still having quite a good amount of pain; getting intermittent nausea and sometimes vomiting. Only eating about 20% of her food. Being followed by Dr. Lazcano. Sitting up on a chair, uncomfortable. Review of systems done for constitutional, cardiovascular, GI, pulmonary; relevant findings as above. Current medications are reviewed that include IV ceftriaxone, IV fluids. On examination, temperature 97.9, pulse 68, respiration 16, blood pressure 145/72, pulse ox 93% on room air. GENERAL APPEARANCE: Sitting up on a chair. Uncomfortable. EYES: Pupils equal. Conjunctivae normal. NECK: JVD not raised. Mass not palpable. RESPIRATORY: Effort normal. LUNGS: Decreased breath sounds. CARDIOVASCULAR: First and second sounds normal. No edema. ABDOMEN: Left flank tenderness. No guarding or rigidity. PSYCHIATRY: Alert and oriented x3. Mood and affect normal. INVESTIGATIONS: BUN 31, creatinine 1.37. Potassium 5.3. ASSESSMENT: 1. Left ureteral stone causing left-sided hydronephrosis, slow to respond. 2. Acute renal failure, component probably prerenal; cannot rule out a chronic component. 3. Severe hyperkalemia from renal failure, improved. 4. Hyperlipidemia. 5. Essential hypertension, uncontrolled on presentation. 6. Coronary artery disease with prior history of coronary artery disease bypass. 7. Sleep apnea. 8. Obesity; body mass index of 36.6. 9. Metabolic acidosis, multifactorial. PLAN: Continue current medication and treatment plan. At this point will increase patient's IV fluids to 100 mL/hour, as patient is not able to keep anything down and oral intake is minimal. Will follow.
[2016-07-30] MEDS: ATORVASTATIN 10 MG TAB PO SCH (23:27)
[2016-07-31] MEDS: HYDROmorphone 1 MG/ML 1 ML SYRINGE IV PRN ×3 (00:35→21:29)
[2016-07-31] MEDS: INSULIN LISPRO (humaLOG) 300 UNIT/3 ML VIAL SQ SCH ×5 (02:07→21:32)
[2016-07-31] MEDS: SODIUM BICARBONATE TAB 650 MG TAB PO SCH ×3 (02:08→21:28)
[2016-07-31] MEDS: SODIUM CHLORIDE 0.9% 1,000 ML IV SCH ×4 (02:10→16:24)
[2016-07-31 07:40] LABS: Glucose,Whole Blood 145 mg/dL (75-99)
[2016-07-31 08:11] LABS: Calcium 8.3 mg/dL (8.4-10.2); Potassium 5.4 mmol/L (3.5-5.1)
[2016-07-31] MEDS: amLODIPine 5 MG TAB PO SCH ×2 (08:28→21:24)
[2016-07-31] MEDS: EZETIMIBE 10 MG TAB PO SCH (08:28)
[2016-07-31] MEDS: METOPROLOL TARTRATE 50 MG TAB PO SCH ×2 (08:29→21:29)
[2016-07-31] MEDS: glipiZIDE 10 MG TAB PO SCH ×2 (08:29→18:34)
[2016-07-31] MEDS: LINAGLIPTIN 5 MG TABLET PO SCH (08:29)
--- NOTE | 2016-07-31 08:32 | P.PN ---
Progress Note - Text The patient is afebrile. She is currently comfortable and was eating breakfast. She says that last night she had another episode of severe pain in her left flank and left lower quadrant. BUN/creatinine today are improved at 31 /1.37. Impression: Intermittent left flank pain secondary to left ureteral calculus. Unclear whether the patient will remain comfortable enough to be discharged. Dr. Lazcano had discussed elective ESWL on August 09. If she continues to have discomfort then double-J catheter or left ureteroscopy with lithotripsy could be set up early next week by Dr. Lazcano.
[2016-07-31] MEDS: HYDROcodone/APAP 7.5-325MG 1 EACH TAB PO PRN ×2 (08:47→15:33)
[2016-07-31] MEDS ORDERED: INSULIN REGULAR 100 UNIT/ML VIAL IV ONE (09:46)
[2016-07-31] MEDS ORDERED: DEXTROSE 50%-WATER 50 ML SYRINGE IVP STA (09:47)
[2016-07-31] MEDS ORDERED: SODIUM POLYSTYRENE SULFONATE 15 GM/60 ML BOTTLE PO STA (09:47)
--- NOTE | 2016-07-31 10:43 | P.PN ---
Subjective Patient is seen in follow-up for acute kidney injury and hyperkalemia. Potassium peaked at 6.6 and 5.4 today. Her creatinine was 1.9 on admission and is 1.47 today. . She is currently maintained on normal saline at 100 mL an hour. Denies chest pain or shortness of breath. Admits to good urine output. No evidence of urinary retention. She continues to have significant pain in her left lower quadrant. Appetite is good. Vital signs are stable. General: The patient appeared well nourished and normally developed. HEENT: Head exam is unremarkable. Neck is without jugular venous distension. LUNGS: Lungs are clear to auscultation and percussion. Breath sounds decreased. HEART: Rate and Rhythm are regular. First and second heart sounds normal. No murmurs, rubs or gallops. ABDOMEN: Abdominal exam reveals normal bowel sounds. Non-tender and non- distended. No evidence of peritonitis. EXTREMITITES: No clubbing, cyanosis, or edema. Objective - Vital Signs Vital signs: Vital Signs Temp 97.9 F 07/31/16 07:00 Pulse 69 07/31/16 08:00 Resp 16 07/31/16 08:00 BP 192/91 07/31/16 07:00 Pulse Ox 90 L 07/31/16 07:00 Intake & Output 07/30/16 07/31/16 07/31/16 18:59 06:59 18:59 Intake Total 600 480 Balance 600 480 Weight 90.718 kg 90.718 kg Intake: IV 400 Sodium Chloride 0.9% 1, 400 000 ml @ 50 mls/hr IV . Q20H [facility] Rx#:[id number] Intake, IV Titration 100 Amount cefTRIAXone 1,000 mg In 100 Sodium Chloride 0.9% 50 ml @ 100 mls/hr IVPB Q24HR [facility] Rx#:[id number] Oral 100 480 Other: Voiding Method Toilet Toilet Bedside Commode Bedside Commode # Voids 1 2 2 # Bowel Movements 0 0 - Labs CBC & Chem 7: 07/27/16 23:45 07/31/16 06:53 Labs: Abnormal Lab Results - Last 24 Hours (Table) 07/30/16 07/30/16 07/30/16 Range/Units 11:39 13:31 17:28 Potassium (3.5-5.1) mmol/L BUN (7-17) mg/dL Creatinine (0.52-1.04) mg/dL Glucose (74-99) mg/dL POC Glucose (mg/dL) 175 H 221 H 109 H (75-99) mg/dL Calcium (8.4-10.2) mg/dL 07/30/16 07/31/16 07/31/16 Range/Units 20:33 06:53 07:03 Potassium 5.4 H (3.5-5.1) mmol/L BUN 29 H (7-17) mg/dL Creatinine 1.47 H (0.52-1.04) mg/dL Glucose 156 H (74-99) mg/dL POC Glucose (mg/dL) 102 H 145 H (75-99) mg/dL Calcium 8.3 L (8.4-10.2) mg/dL Microbiology - Last 24 Hours (Table) 07/29/16 17:45 Gram Stain - Preliminary Sputum Sputum Culture - Preliminary 07/29/16 02:05 Urine Culture - Final Urine,Clean Catch Assessment and Plan Plan: Assessment: #1. Nonoliguric acute kidney injury mostly prerenal in nature secondary to poor oral intake along with vomiting. Improving. Creatinine peaked at 1.9 this admission and is 1.47 today. #2. Hyperkalemia secondary to acute kidney injury and metabolic acidosis. Also component of RTA from diabetes. #3. Metabolic acidosis secondary to acute kidney injury. Metformin can also be a contributing factor. Improved since admission. #4. Diabetes mellitus. #5. Left-sided nephrolithiasis and mild hydronephrosis. #6. Pyuria. #7. Proteinuria likely related to diabetic kidney disease. #8. Hypertension. Uncontrolled. Pain is a contributor factor. Plan: Decrease normal saline to be run at 50 mL an hour. Await urine culture. Continue Rocephin 1 g daily. Maintain Low potassium diet. Continue oral sodium bicarbonate supplementation. Discontinued metformin. Will repeat urinalysis and quantify proteinuria once GFR returns to baseline. Increase amlodipine to 10 mg daily. Pain control. I will give her 10 units of IV insulin with amp of D50 as well as 30 g of Kayexalate once today. Urology following. Scheduled for stone removal and stent placement tomorrow.
[2016-07-31] MEDS: ALBUTEROL NEBULIZED 2.5 MG/3 ML INHALATION SCH ×4 (11:13→19:29)
[2016-07-31 11:40] LABS: Glucose,Whole Blood 186 mg/dL (75-99)
[2016-07-31] MEDS ORDERED: DEXTROSE 50%-WATER 50 ML SYRINGE IVP ONE (12:49)
[2016-07-31] MEDS: ONDANSETRON 4 MG/2 ML VIAL IVP PRN (15:36)
[2016-07-31 17:04] LABS: Glucose,Whole Blood 69 mg/dL (75-99)
--- NOTE | 2016-07-31 17:15 | PN ---
DATE OF SERVICE: 07/31/2016 PRESENTING COMPLAINT: Abdominal pain. INTERVAL HISTORY: This is a patient who presented with left ureteral stone. Continues to be uncomfortable, getting pain meds. Appetite is not good. Sitting up in a chair. Review of systems done for constitutional, cardiovascular, GI, pulmonary; relevant findings as above. Current medications are reviewed that include IV ceftriaxone, saline. On examination, temperature 97.9, pulse 69, respirations 16, blood pressure 190/91, pulse ox 90% on room air. GENERAL APPEARANCE: Sitting up in the chair, uncomfortable persists. EYES: Pupils equal. Conjunctivae normal. NECK: JVD not raised. Mass not palpable. RESPIRATORY: Effort normal. LUNGS: Decreased breath sounds. CARDIOVASCULAR: First and second sounds normal. No edema. ABDOMEN: Left flank tenderness. No guarding or rigidity. PSYCHIATRY: Alert and oriented times three. Mood and affect anxious-appearing. INVESTIGATIONS: Potassium 5.4. BUN 29, creatinine 1.47. ASSESSMENT: 1. Acute renal failure component, could be prerenal. Cannot rule out a chronic component. 2. Severe hypokalemia, renal failure, fluctuating. 3. Hyperlipidemia. 4. Essential hypertension fluctuating, could be primarily from pain. 5. Coronary artery disease with prior history of coronary artery bypass. 6. Sleep apnea. 7. Obesity, body mass index of 36.6. 8. Metabolic acidosis, multifactorial. PLAN: Talked to the patient along with Dr. Henny guaman. I feel probably should speak to urology about proceeding with the procedure as the patient is in rather uncomfortable pain not able to increase oral intake. Did speak to Dr. Sotelo from neurology, who will proceed double-J stent placement tomorrow. In the meantime, I will cut back a bit on IV fluids. Patient will be kept on low potassium diet. Follow.
[2016-07-31 17:29] LABS: Glucose,Whole Blood 89 mg/dL (75-99)
[2016-07-31 20:29] LABS: Glucose,Whole Blood 176 mg/dL (75-99)
[2016-07-31] MEDS: ATORVASTATIN 10 MG TAB PO SCH (21:28)
[2016-07-31] MEDS: hydrALAZINE HCL 20 MG/ML 1 ML VIAL IVP PRN (21:29)
[2016-08-01 07:08] LABS: Glucose,Whole Blood 124 mg/dL (75-99)
[2016-08-01] MEDS: INSULIN LISPRO (humaLOG) 300 UNIT/3 ML VIAL SQ SCH ×4 (08:02→20:44)
[2016-08-01] MEDS: ALBUTEROL NEBULIZED 2.5 MG/3 ML INHALATION SCH ×4 (08:58→19:13)
[2016-08-01] MEDS: glipiZIDE 10 MG TAB PO SCH ×2 (08:59→18:12)
[2016-08-01] MEDS: amLODIPine 5 MG TAB PO SCH ×2 (09:12→20:44)
[2016-08-01] MEDS: SODIUM BICARBONATE TAB 650 MG TAB PO SCH ×2 (09:12→20:44)
[2016-08-01] MEDS: METOPROLOL TARTRATE 50 MG TAB PO SCH ×2 (09:13→20:44)
[2016-08-01] MEDS: EZETIMIBE 10 MG TAB PO SCH (09:14)
--- NOTE | 2016-08-01 09:45 | P.PN ---
Subjective Patient is seen in follow-up for acute kidney injury and hyperkalemia. Potassium peaked at 6.6 and 4.7 as of yesterday. Her creatinine was 1.9 on admission and 1.47 as of yesterday. She is currently maintained on normal saline at 50 mL an hour. Denies chest pain or shortness of breath. Admits to good urine output. No evidence of urinary retention. Abdominal pain is improved with no acute events overnight. Appetite is good. Vital signs are stable. General: The patient appeared well nourished and normally developed. HEENT: Head exam is unremarkable. Neck is without jugular venous distension. LUNGS: Lungs are clear to auscultation and percussion. Breath sounds decreased. HEART: Rate and Rhythm are regular. First and second heart sounds normal. No murmurs, rubs or gallops. ABDOMEN: Abdominal exam reveals normal bowel sounds. Non-tender and non- distended. No evidence of peritonitis. EXTREMITITES: No clubbing, cyanosis, or edema. Objective - Vital Signs Vital signs: Vital Signs Temp 97.4 F L 08/01/16 07:00 Pulse 65 08/01/16 07:00 Resp 17 08/01/16 07:00 BP 160/78 08/01/16 09:10 Pulse Ox 92 L 08/01/16 07:00 Intake & Output 07/31/16 08/01/16 08/01/16 18:59 06:59 18:59 Intake Total 1000 720 Output Total 650 650 Balance 350 70 Weight 90.718 kg 90.718 kg Intake: Intake, IV Titration 600 Amount Sodium Chloride 0.9% 1, 100 000 ml @ 100 mls/hr IV . Q10H TODD Rx#:[id number] Sodium Chloride 0.9% 1, 400 000 ml @ 50 mls/hr IV . Q20H TODD Rx#:[id number] cefTRIAXone 1,000 mg In 100 Sodium Chloride 0.9% 50 ml @ 100 mls/hr IVPB Q24HR TODD Rx#:[id number] Oral 400 720 Output: Urine 650 650 Other: Voiding Method Toilet Toilet Bedside Commode Bedside Commode # Voids 2 4 # Bowel Movements 0 0 - Labs CBC & Chem 7: 07/27/16 23:45 07/31/16 17:43 Labs: Abnormal Lab Results - Last 24 Hours (Table) 07/31/16 07/31/16 07/31/16 Range/Units 11:33 16:50 20:28 POC Glucose (mg/dL) 186 H 69 L 176 H (75-99) mg/dL 08/01/16 Range/Units 06:59 POC Glucose (mg/dL) 124 H (75-99) mg/dL Assessment and Plan Plan: Assessment: #1. Nonoliguric acute kidney injury mostly prerenal in nature secondary to poor oral intake along with vomiting. Improving. Creatinine peaked at 1.9 this admission and was 1.47 as of yesterday. #2. Hyperkalemia secondary to acute kidney injury and metabolic acidosis. Also component of RTA from diabetes. #3. Metabolic acidosis secondary to acute kidney injury. Metformin can also be a contributing factor. Improved since admission. #4. Diabetes mellitus. #5. Left-sided nephrolithiasis and mild hydronephrosis. #6. Pyuria. #7. Proteinuria likely related to diabetic kidney disease. #8. Hypertension. Uncontrolled. Pain is a contributor factor. Plan: Continue normal saline to be run at 50 mL an hour. Await urine culture. Continue Rocephin 1 g daily. Maintain Low potassium diet. Continue oral sodium bicarbonate supplementation. Discontinued metformin. Will repeat urinalysis and quantify proteinuria once GFR returns to baseline. Urology following. Scheduled for stone removal and stent placement today. Check labs today and again in the morning.
[2016-08-01] MEDS: HYDROmorphone 1 MG/ML 1 ML SYRINGE IV PRN ×3 (10:01→19:47)
[2016-08-01] MEDS: ONDANSETRON 4 MG/2 ML VIAL IVP PRN (10:01)
[2016-08-01 10:25] LABS: Potassium 5.3 mmol/L (3.5-5.1)
--- NOTE | 2016-08-01 11:18 | P.PN ---
Progress Note - Text The patient is afebrile and was comfortable overnight but unfortunately had pain again this am. I had discussed possible left ureteroscopy with lithotripsy for today but due to the weekend OR schedule this cannot be done to accomdate my schedule. Dr Lazcano will set up either ureteroscopy with lithotripsy or cystoscopy with placement of a JJ catheter tomorrow.
[2016-08-01] MEDS: HYDROcodone/APAP 7.5-325MG 1 EACH TAB PO PRN ×2 (11:20→18:08)
[2016-08-01] MEDS: LINAGLIPTIN 5 MG TABLET PO SCH (11:20)
[2016-08-01] MEDS: SODIUM CHLORIDE 0.9% 1,000 ML IV SCH ×2 (11:27→18:09)
[2016-08-01 11:28] LABS: Glucose,Whole Blood 147 mg/dL (75-99)
[2016-08-01 15:14] VITALS: RESP 16
[2016-08-01 17:10] LABS: Glucose,Whole Blood 209 mg/dL (75-99)
[2016-08-01] MEDS: ATORVASTATIN 10 MG TAB PO SCH (20:44)
[2016-08-01 20:48] LABS: Glucose,Whole Blood 118 mg/dL (75-99)
--- NOTE | 2016-08-01 23:33 | PN ---
DATE OF SERVICE: 08/01/2016 PRESENTING COMPLAINT: Abdominal pain. INTERVAL HISTORY: This patient presented with left ureteral stone obstruction, not improving clinically. Was due for double G stent placement today, but it has been postponed. Patient's pain is a shade better. Sitting up. Oral intake has not been too good. REVIEW OF SYSTEMS: Done for constitutional, cardiovascular, GI, pulmonary; relevant findings as above. Current medications are reviewed that include IV ceftriaxone, bicarb. On examination, temperature 97.8, pulse 67, respirations 16, blood pressure 186/82, pulse ox 92% on room air. Blood pressure down to 156/54. GENERAL: Sitting up in a chair, uncomfortable. EYES: Pupils equal. Conjunctivae normal. NECK: JVD not raised. Mass not palpable. RESPIRATORY: Effort normal. LUNGS: Decreased breath sounds. CARDIOVASCULAR: First and second sounds normal. No edema. ABDOMEN: Soft, left-sided tenderness. No rigidity. PSYCHIATRY: Alert, oriented x3. Mood and affect normal. INVESTIGATIONS: Potassium 5.3, BUN 24, creatinine 1.21. ASSESSMENT: 1. Acute renal failure, component could be prerenal, cannot rule out chronic component. 2. Severe hyperkalemia, slowly coming down. 3. Hyperlipidemia. 4. Essential hypertension, labile, significant contribution from pain. 5. Coronary artery disease, prior history of coronary artery bypass. 6. Sleep apnea. 7. Obesity, body mass index 36.6. 8. Metabolic acidosis, multifactorial. RECOMMENDATIONS AND PLAN: Continue current medications and treatment plan. Await urology for the double J stent placement. Will follow.
[2016-08-02] MEDS: hydrALAZINE HCL 20 MG/ML 1 ML VIAL IVP PRN (00:10)
[2016-08-02] MEDS: HYDROcodone/APAP 7.5-325MG 1 EACH TAB PO PRN ×3 (00:10→14:20)
[2016-08-02 06:59] LABS: Glucose,Whole Blood 132 mg/dL (75-99)
[2016-08-02] MEDS: ALBUTEROL NEBULIZED 2.5 MG/3 ML INHALATION SCH ×2 (07:11→10:53)
[2016-08-02] MEDS: INSULIN LISPRO (humaLOG) 300 UNIT/3 ML VIAL SQ SCH ×3 (07:22→17:53)
[2016-08-02] MEDS: glipiZIDE 10 MG TAB PO SCH ×3 (07:29→17:53)
[2016-08-02] MEDS: LINAGLIPTIN 5 MG TABLET PO SCH ×2 (07:30→08:41)
[2016-08-02 07:37] VITALS: PULSE 64; TEMP 97.6
[2016-08-02 08:10] LABS: Calcium 9.1 mg/dL (8.4-10.2); Potassium 5.2 mmol/L (3.5-5.1)
[2016-08-02] MEDS: METOPROLOL TARTRATE 50 MG TAB PO SCH (08:39)
[2016-08-02] MEDS: SODIUM BICARBONATE TAB 650 MG TAB PO SCH (08:39)
[2016-08-02] MEDS: EZETIMIBE 10 MG TAB PO SCH (08:40)
[2016-08-02] MEDS: amLODIPine 5 MG TAB PO SCH (08:40)
[2016-08-02] MEDS ORDERED: SODIUM BICARBONATE TAB 650 MG TAB PO SCH (11:30)
--- NOTE | 2016-08-02 11:50 | P.PN ---
Subjective Patient is seen in follow-up for acute kidney injury and hyperkalemia. Potassium peaked at 6.6 this admission and is 5.2 today. Her creatinine was 1.9 on admission and 1.31. She is currently maintained on normal saline at 50 mL an hour. Denies chest pain or shortness of breath. Admits to good urine output. No evidence of urinary retention. Abdominal pain is improved with no acute events overnight. Appetite is good. She is eager to go home. Vital signs are stable. General: The patient appeared well nourished and normally developed. HEENT: Head exam is unremarkable. Neck is without jugular venous distension. LUNGS: Lungs are clear to auscultation and percussion. Breath sounds decreased. HEART: Rate and Rhythm are regular. First and second heart sounds normal. No murmurs, rubs or gallops. ABDOMEN: Abdominal exam reveals normal bowel sounds. Non-tender and non- distended. No evidence of peritonitis. EXTREMITITES: No clubbing, cyanosis, or edema. Objective - Vital Signs Vital signs: Vital Signs Temp 97.6 F 08/02/16 07:00 Pulse 64 08/02/16 07:00 Resp 16 08/02/16 07:00 BP 181/77 08/02/16 07:00 Pulse Ox 93 L 08/02/16 07:12 Intake & Output 08/01/16 08/02/16 08/02/16 18:59 06:59 18:59 Intake Total 700 440 Output Total 1300 Balance -600 440 Weight 90.718 kg Intake: Intake, IV Titration 700 200 Amount Sodium Chloride 0.9% 1, 600 200 000 ml @ 50 mls/hr IV . Q20H TODD Rx#:[id number] cefTRIAXone 1,000 mg In 100 Sodium Chloride 0.9% 50 ml @ 100 mls/hr IVPB Q24HR TODD Rx#:[id number] Oral 240 Output: Urine 1300 Other: Voiding Method Toilet Bedside Commode Bedside Commode Bedside Commode # Voids 4 2 # Bowel Movements 0 - Labs CBC & Chem 7: 07/27/16 23:45 08/02/16 07:27 Labs: Abnormal Lab Results - Last 24 Hours (Table) 08/01/16 08/01/16 08/02/16 Range/Units 17:01 20:40 06:58 Potassium (3.5-5.1) mmol/L BUN (7-17) mg/dL Creatinine (0.52-1.04) mg/dL Glucose (74-99) mg/dL POC Glucose (mg/dL) 209 H 118 H 132 H (75-99) mg/dL 08/02/16 Range/Units 07:27 Potassium 5.2 H (3.5-5.1) mmol/L BUN 22 H (7-17) mg/dL Creatinine 1.31 H (0.52-1.04) mg/dL Glucose 132 H (74-99) mg/dL POC Glucose (mg/dL) (75-99) mg/dL Microbiology - Last 24 Hours (Table) 07/29/16 17:45 Gram Stain - Final Sputum Sputum Culture - Final Assessment and Plan Plan: Assessment: #1. Nonoliguric acute kidney injury mostly prerenal in nature secondary to poor oral intake along with vomiting. Improving. Creatinine peaked at 1.9 this admission and is 1.3 today. #2. Hyperkalemia secondary to acute kidney injury and metabolic acidosis. Also component of RTA from diabetes. #3. Metabolic acidosis secondary to acute kidney injury. Metformin can also be a contributing factor. Improved since admission. #4. Diabetes mellitus. #5. Left-sided nephrolithiasis and mild hydronephrosis. #6. Pyuria. #7. Proteinuria likely related to diabetic kidney disease. #8. Hypertension. Uncontrolled. Pain is a contributor factor. Plan: Hep-Lock IV fluids. Maintain Low potassium diet. Continue oral sodium bicarbonate supplementation - I will decrease the dose. Discontinued metformin. Will repeat urinalysis and quantify proteinuria once GFR returns to baseline as an outpatient. Urology following. Will be scheduled for stone removal and stent placement as an outpatient. Stable to be discharged home from nephrology standpoint and to follow-up as an outpatient in the next 1-2 weeks.
[2016-08-02 11:57] LABS: Glucose,Whole Blood 238 mg/dL (75-99)
[2016-08-02 16:26] VITALS: BP 166/69
--- NOTE | 2016-08-02 20:51 | P.PN ---
Progress Note - Text The patient has been comfortable for the last 24 hours. Her Cr is 1.3 which is improved from admission. I again discussed ESWL vs right ureteroscopy with lithotripsy with the patient and she now is in favor of ESWL. She will be discharged and ESWL will be done on 08/09. I again reviewed the procedure and risks with her.
--- NOTE | 2016-08-04 17:13 | DS ---
DATE OF ADMISSION: 07/28/2016 DATE OF DISCHARGE: 08/02/2016 FINAL DIAGNOSES: 1. Proximal left ureteral stone, 8 mm, causing obstruction with hydronephrosis. 2. Severe hyperkalemia. 3. Hyperlipidemia. 4. Essential hypertension, labile. 5. Coronary artery disease with prior history of coronary artery bypass. 6. Sleep apnea. 7. Obesity; body mass index of 36.6. 8. Metabolic acidosis, multifactorial. 9. Non-oliguric ( ) mostly prerenal, secondary to decreased oral intake. HOSPITAL COURSE: This patient with abdominal pain was found to have a left ureteral stone. By the time of discharge, the pain had greatly improved, patient looking for an outpatient hopefully double-J stent placement. Patient also had acute renal failure, creatinine jumping up to 1.9; did come down to 1.3 by the time of discharge. Patient also had hyperkalemia. She was told to go on a low-potassium diet. On the day of discharge, care was discussed in detail with the patient. Dr. Inman asked the patient to stop her metformin. Patient is not very keen to do the same, but after a long talk she is okay with the Prandin. Patient still has some residual pain. Patient's BUN and creatinine are 22 and 1.31 at the time of discharge. On examination, left abdomen has no tenderness. No guarding or rigidity. PSYCHIATRY: Alert and oriented x3. CONSULTATIONS: 1. Dr. Inman from Nephrology. 2. Dr. Sotelo and Dr. Lazcano from Urology. DISCHARGE MEDICATIONS: 1. Zetia 10 mg a day. 2. Mevacor 10 mg p.o. at bedtime. 3. Lopressor 50 mg p.o. b.i.d. 4. [place] 7.5 one tablet q.6 p.r.n. 5. DuoNeb t.i.d. 6. Prandin 1 mg p.o. before meals t.i.d.; new medication. 7. Sodium bicarb 650 mg p.o. b.i.d. 8. Norvasc 5 mg p.o. b.i.d. 9. Glucotrol XL 10 mg p.o. b.i.d. 10. Januvia 100 mg p.o. daily; new medication. 11. Janumet discontinued. Follow up with Dr. Greg Kline in one week. Follow up with Dr. Inman in one week. Follow up with Dr. Lazcano on 08/23/16. Labs BMP in 3 days. Care was discussed in detail with the patient. Discharge planning more than 35 minutes.
== END 2016-08-02 18:17 | disposition home or self-care (01) | DRG 694 ==
LOC: EC 20:56 → 5MS5E 07-28 03:09
PROVIDERS: ADMIT Hospitalist; ATTEND Hospitalist
DX: N13.2 Hydronephrosis with renal and ureteral calculous obstruction (principal); N17.9 Acute kidney failure, unspecified; E87.2 Acidosis; E11.29 Type 2 diabetes mellitus with other diabetic kidney complication; G20 Parkinson's disease; E87.5 Hyperkalemia; E86.0 Dehydration; E66.9 Obesity, unspecified; E78.5 Hyperlipidemia, unspecified; G47.30 Sleep apnea, unspecified; I10 Essential (primary) hypertension; I25.10 Atherosclerotic heart disease of native coronary artery without angina pectoris; I71.9 Aortic aneurysm of unspecified site, without rupture; J44.9 Chronic obstructive pulmonary disease, unspecified; I25.2 Old myocardial infarction; Z68.36 Body mass index [BMI] 36.0-36.9, adult; Z79.899 Other long term (current) drug therapy; Z82.49 Family history of ischemic heart disease and other diseases of the circulatory system; Z87.442 Personal history of urinary calculi; Z87.891 Personal history of nicotine dependence; Z95.1 Presence of aortocoronary bypass graft; Z79.84 Long term (current) use of oral hypoglycemic drugs
CPT/HCPCS: 36415; 74000; 74022; 74176; 80048; 80053; 81001; 82150; 83036; 83690; 83735; 84132; 85025; 85730; 87070; 87086; 87205; 93005; 94640; 94644; 94760; 96361; 96374; 96375; 96376; 99285

== ENCOUNTER → 2016-08-04 | Outpatient (CLI) | payer MEDICARE, OTHER ==
[2016-08-04 16:10] LABS: Calcium 9.2 mg/dL (8.4-10.2); Potassium 3.9 mmol/L (3.5-5.1)
== END | disposition home or self-care (01) ==
LOC: LABWHC1 15:36
PROVIDERS: ATTEND Nurse Practitioner Acute Care
DX: N17.9 Acute kidney failure, unspecified (principal)
CPT/HCPCS: 36415; 80048

== ENCOUNTER 2016-08-23 05:47 | Day surgery (SDC) | payer MEDICARE, OTHER ==
[2016-08-20 10:41] VITALS: BMI 36.6
[~2016-08-23 05:47] MED LIST: HYDROmorphone 1 MG/ML 1 ML SYRINGE IVP PRN; LACTATED RINGERS 1,000 ML IV SCH; ONDANSETRON 4 MG/2 ML VIAL IVP ONE; Pre Op ABX Message 1 EACH MISC MISCELLANE ONE
[2016-08-23 06:27] VITALS: RESP 18; TEMP 98.1
[2016-08-23 06:29] LABS: Glucose,Whole Blood 156 mg/dL (75-99)
--- NOTE | 2016-08-23 07:17 | XR ---
EXAMINATION TYPE: XR KUB DATE OF EXAM: 08/23/2016 6:16 AM CLINICAL DATA: 76-year-old female prelithotripsy for kidney stone, [facility] COMPARISON: 07/29/[address] 07/28/2016 FINDINGS: Nonobstructive bowel gas pattern. Scattered moderate stool. Known left ureteral calculus not clearly visualized, probably obscured by bowel content. 2 large left-sided pelvic phleboliths are again noted. Degenerative changes lower lumbar spine. IMPRESSION: 2 large left pelvic phleboliths. Known left ureteral calculus seen on prior CT likely obscured by bow el content.
[2016-08-23 07:53] VITALS: BP 181/81; PULSE 80
--- NOTE | 2016-08-23 22:08 | PCN ---
DATE OF PROCEDURE: PREOPERATIVE DIAGNOSIS: Proximal left ureteral calculus. POSTOPERATIVE DIAGNOSIS: No visible calculus. DESCRIPTION OF THE PROCEDURE: Fluoroscopy. ANESTHESIA: None. The patient is a 76-year-old female who was admitted one month ago with left flank pain and at that time noted to have an 8 mm proximal left ureteral calculus on CT scan. The patient had been scheduled to undergo ESWL treatment of the calculus today but a KUB obtained preoperatively failed to identify the calculus. FLUOROSCOPY: Planned for further evaluation. PROCEDURE: The patient was taken to the endoscopy suite and placed in the spine position. The left retroperitoneal area was examined using biplanar fluoroscopy. No definite calculus corresponding to the 8 mm calculus seen on the CT scan was identifiable along the course of the left ureter. In view of the inability to identify the calculus, it was elected to terminate the procedure. The patient tolerated procedure as well. No anesthesia was given. Patient will follow up with Dr. Lazcano, as it may be necessary to perform ureteroscopy with lithotripsy. VERONICA
== END 2016-08-23 08:23 | disposition home or self-care (01) ==
LOC: ORWHC2ENDO 05:47
PROVIDERS: ATTEND Urology
DX: N20.1 Calculus of ureter (principal); J44.9 Chronic obstructive pulmonary disease, unspecified; E11.9 Type 2 diabetes mellitus without complications; Z79.84 Long term (current) use of oral hypoglycemic drugs; E78.5 Hyperlipidemia, unspecified; I25.2 Old myocardial infarction; Z95.1 Presence of aortocoronary bypass graft; I25.10 Atherosclerotic heart disease of native coronary artery without angina pectoris; I10 Essential (primary) hypertension; Z87.891 Personal history of nicotine dependence; G47.33 Obstructive sleep apnea (adult) (pediatric); Z99.89 Dependence on other enabling machines and devices; Z79.899 Other long term (current) drug therapy; Z88.4 Allergy status to anesthetic agent; Z88.8 Allergy status to other drugs, medicaments and biological substances; Z53.8 Procedure and treatment not carried out for other reasons
CPT/HCPCS: 50590; 74000; J2405

== ENCOUNTER 2019-01-25 19:22 | Inpatient (IN) | payer MEDICARE, OTHER ==
[2019-01-25] MEDS ORDERED: SODIUM CHLORIDE 0.9% 1,000 ML IV STA (20:13)
[2019-01-25] MEDS ORDERED: VANCOMYCIN IV PER PHARMACY 1 EACH MISC MISCELLANE PRN (20:13)
--- NOTE | 2019-01-25 20:14 | ED ---
Extremity Problem HPI - General Chief complaint: Extremity Problem,Nontraumatic Stated complaint: Fall, unable to walk, gout Time Seen by Provider: 01/25/19 19:43 Source: patient, RN notes reviewed, old records reviewed Mode of arrival: wheelchair Limitations: physical limitation - History of Present Illness Initial comments: This is a 78-year-old female the ER for evaluation patient resents today for evaluation regards to bilateral foot pain severe foot pain unable to family. History of gout thinks she may have worsening now she also has diabetes. Patient severe pain both lower extremities and difficulty elevated for about a day and a half. She is able to bear weight. No traumatic injuries. No prior systemic complaints she has had gout in one of her feet before which caused similar type pain although this is worse. Deny any fevers no chest pain or shortness of breath or abdominal pain. No headaches MD Complaint: extremity pain (Bilateral lower extremity lower feet), joint pain (Ankle) -: days(s) Location: bilateral lower extremity, other (Bilateral feet) Radiation: none Severity scale (1-10): 9 Quality: aching Consistency: constant Improves with: nothing Worsens with: weight bearing, walking Associated Symptoms: denies other symptoms - Related Data Home Medications Medication Instructions Recorded Confirmed Ezetimibe [Zetia] 10 mg PO DAILY@0900 11/20/13 01/25/19 Lovastatin [Mevacor] 10 mg PO HS@1800 11/20/13 01/25/19 sitaGLIPtin PHOS/metFORMIN HCL 1 tab PO BID@0900,1800 08/20/16 01/25/19 [Janumet 50-1,000 mg Tablet] Aspirin EC [Ecotrin Low Dose] 81 mg PO DAILY@0900 01/25/19 01/25/19 Colchicine [Colcrys] 0.6 mg PO BID@0900,1800 01/25/19 01/25/19 Furosemide [Lasix] 20 mg PO DAILY@0900 01/25/19 01/25/19 Gabapentin [Neurontin] 100 mg PO TID@0900,1500,2100 01/25/19 01/25/19 Primidone [Mysoline] 50 mg PO DAILY@0900 01/25/19 01/25/19 Primidone [Mysoline] 100 mg PO HS@1800 01/25/19 01/25/19 glipiZIDE XL [Glucotrol XL] 10 mg PO BID@0900,1800 01/25/19 01/25/19 Allergies Allergy/AdvReac Type Severity Reaction Status Date / Time cortisone AdvReac PAIN Verified 01/25/19 20:02 procaine HCl [From Novocain] AdvReac pain Verified 01/25/19 20:02 allergy medicines AdvReac "dries me Uncoded 01/25/19 20:02 out, bloody noses,generalized pain" Review of Systems ROS Statement: Those systems with pertinent positive or pertinent negative responses have been documented in the HPI. ROS Other: All systems not noted in ROS Statement are negative. Past Medical History Past Medical History: COPD, Diabetes Mellitus, Hyperlipidemia, Hypertension, Myocardial Infarction ([place]), Sleep Apnea/CPAP/BIPAP Additional Past Medical History / Comment(s): parkinsonism, NO left arm blood draw or blood pressure Last Myocardial Infarction Date:: 1999 History of Any Multi-Drug Resistant Organisms: None Reported Past Surgical History: Appendectomy, Coronary Bypass/CABG, Heart Catheterization, Hysterectomy Past Anesthesia/Blood Transfusion Reactions: No Reported Reaction Past Psychological History: No Psychological Hx Reported Smoking Status: Former smoker Past Alcohol Use History: None Reported Past Drug Use History: None Reported - Past Family History Mother Family Medical History: COPD, Myocardial Infarction ([place]) Brother(s) Family Medical History: Cancer Additional Family Medical History / Comment(s): LUNG CANCER Son(s) Family Medical History: Cancer Additional Family Medical History / Comment(s): COLON CANCER Sister(s) Family Medical History: Cancer Additional Family Medical History / Comment(s): (2) SISTERS HAD BREAST CANCER. General Exam Limitations: physical limitation General appearance: alert, in no apparent distress Head exam: Present: atraumatic, normocephalic, normal inspection Eye exam: Present: normal appearance, PERRL, EOMI. Absent: scleral icterus, conjunctival injection, periorbital swelling ENT exam: Present: normal exam, mucous membranes moist Neck exam: Present: normal inspection. Absent: tenderness, meningismus, lymphadenopathy Respiratory exam: Present: normal lung sounds bilaterally. Absent: respiratory distress, wheezes, rales, rhonchi, stridor Cardiovascular Exam: Present: regular rate, normal rhythm, normal heart sounds. Absent: systolic murmur, diastolic murmur, rubs, gallop, clicks GI/Abdominal exam: Present: soft, normal bowel sounds. Absent: distended, tenderness, guarding, rebound, rigid Extremities exam: Present: normal inspection, full ROM, normal capillary refill, other (Bilateral lower extremity pain and swelling erythema, dry skin with secondary cellulitis). Absent: tenderness, pedal edema, joint swelling, calf tenderness Back exam: Present: normal inspection Neurological exam: Present: alert, oriented X3, CN II-XII intact Psychiatric exam: Present: normal affect, normal mood Skin exam: Present: warm, dry, intact, normal color. Absent: rash Course Vital Signs 01/25/19 01/25/19 19:37 21:21 Temperature 98.5 F Pulse Rate 65 75 Respiratory 18 18 Rate Blood Pressure 161/70 184/81 O2 Sat by Pulse 94 L 96 Oximetry - Reevaluation(s) Reevaluation #1: 01/25/19 20:49 Records reviewed Reevaluation #2: 01/25/19 21:51 Patient informed of results and questions answered - Consultations Consultation #1: spoke w Dr Hernán blanc for admission Medical Decision Making - Medical Decision Making Plan I female with significant bilateral lower extremity cellulitis, severe foot pain. X-rays are negative labwork is within normal limits. Patient will be a dmitted for IV antibiotics secondary to sialitis and foot pain, inability to ambulate - Lab Data Result diagrams: 01/25/19 20:17 01/25/19 20:17 Lab Results 01/25/19 01/25/19 01/25/19 Range/Units 20:17 20:17 20:17 WBC 5.8 (3.8-10.6) k/uL RBC 3.14 L (3.80-5.40) m/uL Hgb 10.2 L (11.4-16.0) gm/dL Hct 33.2 L (34.0-46.0) % MCV 105.7 H (80.0-100.0) fL MCH 32.6 (25.0-35.0) pg MCHC 30.9 L (31.0-37.0) g/dL RDW 15.5 (11.5-15.5) % Plt Count 186 (150-450) k/uL Neutrophils % 67 % Lymphocytes % 17 % Monocytes % 7 % Eosinophils % 5 % Basophils % 2 % Neutrophils # 3.9 (1.3-7.7) k/uL Lymphocytes # 1.0 (1.0-4.8) k/uL Monocytes # 0.4 (0-1.0) k/uL Eosinophils # 0.3 (0-0.7) k/uL Basophils # 0.1 (0-0.2) k/uL Hypochromasia Slight Macrocytosis Moderate PT (9.0-12.0) sec INR (<1.2) APTT (22.0-30.0) sec Sodium 142 (137-145) mmol/L Potassium 5.2 H (3.5-5.1) mmol/L Chloride 103 (98-107) mmol/L Carbon Dioxide 26 (22-30) mmol/L Anion Gap 13 mmol/L BUN 34 H (7-17) mg/dL Creatinine 1.59 H (0.52-1.04) mg/dL Est GFR (CKD-EPI)AfAm 35 (>60 ml/min/1.73 sqM) Est GFR (CKD-EPI)NonAf 31 (>60 ml/min/1.73 sqM) Glucose 112 H (74-99) mg/dL Plasma Lactic Acid Roderick 2.8 H* (0.7-2.0) mmol/L Calcium 7.9 L (8.4-10.2) mg/dL Phosphorus 4.0 (2.5-4.5) mg/dL Magnesium 2.1 (1.6-2.3) mg/dL Total Bilirubin 0.2 (0.2-1.3) mg/dL AST 17 (14-36) U/L ALT 20 (9-52) U/L Alkaline Phosphatase 66 (38-126) U/L Troponin I (0.000-0.034) ng/mL Total Protein 7.8 (6.3-8.2) g/dL Albumin 4.2 (3.5-5.0) g/dL 01/25/19 01/25/19 Range/Units 20:17 20:17 WBC (3.8-10.6) k/uL RBC (3.80-5.40) m/uL Hgb (11.4-16.0) gm/dL Hct (34.0-46.0) % MCV (80.0-100.0) fL MCH (25.0-35.0) pg MCHC (31.0-37.0) g/dL RDW (11.5-15.5) % Plt Count (150-450) k/uL Neutrophils % % Lymphocytes % % Monocytes % % Eosinophils % % Basophils % % Neutrophils # (1.3-7.7) k/uL Lymphocytes # (1.0-4.8) k/uL Monocytes # (0-1.0) k/uL Eosinophils # (0-0.7) k/uL Basophils # (0-0.2) k/uL Hypochromasia Macrocytosis PT 9.8 (9.0-12.0) sec INR 0.9 (<1.2) APTT 24.5 (22.0-30.0) sec Sodium (137-145) mmol/L Potassium (3.5-5.1) mmol/L Chloride (98-107) mmol/L Carbon Dioxide (22-30) mmol/L Anion Gap mmol/L BUN (7-17) mg/dL Creatinine (0.52-1.04) mg/dL Est GFR (CKD-EPI)AfAm (>60 ml/min/1.73 sqM) Est GFR (CKD-EPI)NonAf (>60 ml/min/1.73 sqM) Glucose (74-99) mg/dL Plasma Lactic Acid Roderick (0.7-2.0) mmol/L Calcium (8.4-10.2) mg/dL Phosphorus (2.5-4.5) mg/dL Magnesium (1.6-2.3) mg/dL Total Bilirubin (0.2-1.3) mg/dL AST (14-36) U/L ALT (9-52) U/L Alkaline Phosphatase (38-126) U/L Troponin I <0.012 (0.000-0.034) ng/mL Total Protein (6.3-8.2) g/dL Albumin (3.5-5.0) g/dL - EKG Data -: EKG Interpreted by Me (EKG shows sinus tachycardia rate of 123, IL 140, QRS 80, QTC 470.) - Radiology Data Radiology results: report reviewed (X-ray bilateral lower extremity is negative for acute disease), image reviewed Disposition Clinical Impression: Dehydration, Bilateral cellulitis of lower leg Disposition: ADMITTED IP TO THIS HOSP Condition: Fair Is patient prescribed a controlled substance at d/c from ED?: No Referrals: Greg Kline MD [Primary Care Provider] - 1-2 days
[2019-01-25] MEDS ORDERED: VANCOMYCIN 1,750 MG in SODIUM CHLORIDE 0.9% 500 ML 500 ML IVPB STA (20:17)
--- NOTE | 2019-01-25 20:51 | XR ---
EXAMINATION TYPE: XR foot complete bilateral DATE OF EXAM: 01/25/2019 COMPARISON: NONE HISTORY: Foot pain TECHNIQUE: 3 views FINDINGS: There is bilateral narrowing of the first MP joint space with mild spurring. Metatarsals ar e intact. There are plantar and Achilles calcaneal spurs. I see no fracture nor dislocation. There is some narrowing of the intertarsal joint spaces. There is bilateral soft tissue swelling of the foref oot. IMPRESSION: Soft tissue swelling. Calcaneal spurring. 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 No fractu re seen.
[2019-01-25 20:56] LABS: Basophils # (A) 0.1 k/uL (0-0.2); Basophils % (A) 2 %; Eosinophils # (A) 0.3 k/uL (0-0.7); Eosinophils % (A) 5 %; HCT 33.2 % (34.0-46.0); HGB 10.2 gm/dL (11.4-16.0); Hypochromasia Slight; Lymphocytes % (A) 17 %; MCH 32.6 pg (25.0-35.0); MCHC 30.9 g/dL (31.0-37.0); MCV 105.7 fL (80.0-100.0); Macrocytosis Moderate; Mean Platelet Volume 7.3; Monocytes # (A) 0.4 k/uL (0-1.0); Monocytes % (A) 7 %; Neutrophils # (A) 3.9 k/uL (1.3-7.7); Neutrophils % (A) 67 %; Platelet Count 186 k/uL (150-450); RBC 3.14 m/uL (3.80-5.40); RDW 15.5 % (11.5-15.5); WBC 5.8 k/uL (3.8-10.6)
[2019-01-25] MEDS ORDERED: KETOROLAC 30 MG/ML 1 ML VIAL IVP STA (21:04)
[2019-01-25 21:08] LABS: INR 0.9 (<1.2); Partial Thromboplastin Time 24.5 sec (22.0-30.0); Prothrombin Time 9.8 sec (9.0-12.0)
[2019-01-25 21:17] LABS: Albumin 4.2 g/dL (3.5-5.0); Calcium 7.9 mg/dL (8.4-10.2); Magnesium 2.1 mg/dL (1.6-2.3); Potassium 5.2 mmol/L (3.5-5.1); Total Bilirubin 0.2 mg/dL (0.2-1.3); Total Protein 7.8 g/dL (6.3-8.2)
[2019-01-25] MEDS ORDERED: SODIUM CHLORIDE 0.9% 1,000 ML IV ONE (21:50)
[2019-01-25] MEDS ORDERED: MORPHINE SULFATE 4 MG/ML SYRINGE IVP STA (21:50)
[2019-01-25] MEDS ORDERED: MORPHINE SULFATE 4 MG/ML SYRINGE IVP PRN (21:50)
[2019-01-25 23:36] VITALS: BMI 38.9
[2019-01-26 07:27] LABS: Glucose,Whole Blood 156 mg/dL (75-99)
[2019-01-26] MEDS: INSULIN ASPART (NovoLOG) 100 UNIT/ML VIAL SQ SCH ×4 (09:34→20:52)
[2019-01-26] MEDS ORDERED: ACETAMINOPHEN TAB 325 MG TAB PO PRN (10:43)
[2019-01-26] MEDS: glipiZIDE 10 MG TAB PO SCH ×2 (11:34→17:45)
[2019-01-26] MEDS: COLCHICINE 0.6 MG EACH PO SCH ×2 (11:34→17:45)
[2019-01-26] MEDS: EZETIMIBE 10 MG TAB PO SCH (11:34)
[2019-01-26] MEDS: metFORMIN 500 MG TAB PO SCH ×2 (11:34→20:52)
[2019-01-26] MEDS: FUROSEMIDE 20 MG TAB PO SCH (11:35)
[2019-01-26] MEDS: LINAGLIPTIN 5 MG TABLET PO SCH (11:35)
[2019-01-26 11:53] LABS: Glucose,Whole Blood 206 mg/dL (75-99)
[2019-01-26] MEDS ORDERED: VANCOMYCIN 1,750 MG in SODIUM CHLORIDE 0.9% 500 ML 500 ML IVPB ONE (12:00)
[2019-01-26] MEDS: GABAPENTIN 100 MG CAP PO SCH ×2 (15:46→20:52)
[2019-01-26 17:03] LABS: Glucose,Whole Blood 87 mg/dL (75-99)
[2019-01-26] MEDS: ATORVASTATIN 10 MG TAB PO SCH (17:45)
[2019-01-26] MEDS: PRIMIDONE 50 MG TAB PO SCH (17:45)
[2019-01-26 20:33] LABS: Glucose,Whole Blood 145 mg/dL (75-99)
--- NOTE | 2019-01-26 21:40 | P.HPIM ---
History of Present Illness H&P Date: 01/26/19 Chief Complaint: Redness of the legs History of presenting complaint: This is a pleasant 78-year-old patient of Dr. Greg Nelson. Chronic stable medical conditions include COPD, diabetes, hyperlipidemia, hypertension, parkinsonism, sleep apnea. Has coronary artery disease with prior bypass. Patient went to some personal situation became homeless a few weeks ago. She now presents with redness some redness in both lower extremity. Patient has very dry skin. Not able to put all of the skin because of her physical stature. Sometimes able to put coconut oil. Not able to cut her toenails. Denies any fever and chills. Patient does have diabetic peripheral neuropathy. She has increasing pain in both lower extremity. Some swelling is present. He was treated for cellulitis in the ear started and IV antibiotics. Review of systems: GEN.: Tired EYES: None HEENT: None NECK: None RESPIRATORY: None CARDIOVASCULAR: None GASTROINTESTINAL: None GENITOURINARY: None MUSCULOSKELETAL: . Pain in joints LYMPHATICS: None HEMATOLOGICAL: None PSYCHIATRY: None NEUROLOGICAL: None Social history: Lives alone. Does use a walker. Does smoke in the past. No alcohol. Physical examination: VITAL SIGNS: 98.5, 65, 18, 161/70, 94% room air GENERAL: BMI 39, sitting up, tired. EYES: Pupils equal. Conjunctiva normal. HEENT: External appearance of nose and ears normal, oral cavity grossly normal. NECK: JVD not raised; masses not palpable. HEART: First and second heart sounds are normal; no edema. LUNGS: Respiratory rate normal; decreased breath sounds. ABDOMEN: Soft, nontender, liver spleen not palpable, no masses palpable. PSYCH: Alert and oriented x3; mood and affect normal. NEUROLOGICAL: Cranial nerves grossly intact; no facial asymmetry, power juliana sly intact and sensation decreased distally. LYMPHATICS: No lymph nodes palpable in the axilla and neck DERMATOLOGICAL: Very dry scaly skin down to the feet, with disfigured nails. 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 We'll switch over to clindamycin. He was Silvadene cream twice a day, with Kerlix and Wilmar wrap to both lower extremity. To try to get hold of a plate slitter and inspector but none available for next week. Other home medications resumed. Care was discussed the patient. Cannot use NSAIDs for the pain will use Tylenol. Past Medical History Past Medical History: COPD, Diabetes Mellitus, Hyperlipidemia, Hypertension, Myocardial Infarction ([place]), Sleep Apnea/CPAP/BIPAP Additional Past Medical History / Comment(s): parkinsonism, NO left arm blood draw or blood pressure Last Myocardial Infarction Date:: 1999 History of Any Multi-Drug Resistant Organisms: None Reported Past Surgical History: Appendectomy, Coronary Bypass/CABG, Heart Catheterization, Hysterectomy Past Anesthesia/Blood Transfusion Reactions: No Reported Reaction Past Psychological History: No Psychological Hx Reported Smoking Status: Former smoker Past Alcohol Use History: None Reported Past Drug Use History: None Reported - Past Family History Mother Family Medical History: COPD, Myocardial Infarction ([place]) Brother(s) Family Medical History: Cancer Additional Family Medical History / Comment(s): LUNG CANCER Son(s) Family Medical History: Cancer Additional Family Medical History / Comment(s): COLON CANCER Sister(s) Family Medical History: Cancer Additional Family Medical History / Comment(s): (2) SISTERS HAD BREAST CANCER. Medications and Allergies Home Medications Medication Instructions Recorded Confirmed Type Ezetimibe [Zetia] 10 mg PO DAILY@0900 11/20/13 01/25/19 History Lovastatin [Mevacor] 10 mg PO HS@1800 11/20/13 01/25/19 History sitaGLIPtin PHOS/metFORMIN HCL 1 tab PO BID@0900,1800 08/20/16 01/25/19 History [Janumet 50-1,000 mg Tablet] Aspirin EC [Ecotrin Low Dose] 81 mg PO DAILY@0900 01/25/19 01/25/19 History Colchicine [Colcrys] 0.6 mg PO BID@0900,1800 01/25/19 01/25/19 History Furosemide [Lasix] 20 mg PO DAILY@0900 01/25/19 01/25/19 History Gabapentin [Neurontin] 100 mg PO TID@0900,1500,2100 01/25/19 01/25/19 History Primidone [Mysoline] 50 mg PO DAILY@0900 01/25/19 01/25/19 History Primidone [Mysoline] 100 mg PO HS@1800 01/25/19 01/25/19 History glipiZIDE XL [Glucotrol XL] 10 mg PO BID@0900,1800 01/25/19 01/25/19 History Allergies Allergy/AdvReac Type Severity Reaction Status Date / Time cortisone AdvReac PAIN Verified 01/25/19 20:02 procaine HCl [From Novocain] AdvReac pain Verified 01/25/19 20:02 allergy medicines AdvReac "dries me Uncoded 01/25/19 20:02 out, bloody noses,generalized pain" Physical Exam Vitals: Vital Signs Temp Pulse Pulse Resp BP BP BP 01/26/19 09:32 172/82 01/26/19 05:24 98.2 F 75 16 130/82 01/25/19 23:54 98.2 F 85 16 161/60 01/25/19 22:27 77 18 164/91 01/25/19 21:21 75 18 184/81 01/25/19 19:37 98.5 F 65 18 161/70 Pulse Ox 01/26/19 09:32 01/26/19 05:24 97 01/25/19 23:54 92 L 01/25/19 22:27 96 01/25/19 21:21 96 01/25/19 19:37 94 L Intake and Output 01/25/19 01/26/19 01/26/19 22:59 06:59 14:59 Other: # Voids 1 Weight 96.615 kg Results CBC & Chem 7: 01/25/19 20:17 01/25/19 20:17 Labs: Abnormal Lab Results - Last 24 Hours (Table) 01/25/19 01/25/19 01/25/19 Range/Units 20:17 20:17 20:17 RBC 3.14 L (3.80-5.40) m/uL Hgb 10.2 L (11.4-16.0) gm/dL Hct 33.2 L (34.0-46.0) % MCV 105.7 H (80.0-100.0) fL MCHC 30.9 L (31.0-37.0) g/dL Potassium 5.2 H (3.5-5.1) mmol/L BUN 34 H (7-17) mg/dL Creatinine 1.59 H (0.52-1.04) mg/dL Glucose 112 H (74-99) mg/dL POC Glucose (mg/dL) (75-99) mg/dL Plasma Lactic Acid Roderick 2.8 H* (0.7-2.0) mmol/L Calcium 7.9 L (8.4-10.2) mg/dL 01/26/19 01/26/19 Range/Units 00:28 07:25 RBC (3.80-5.40) m/uL Hgb (11.4-16.0) gm/dL Hct (34.0-46.0) % MCV (80.0-100.0) fL MCHC (31.0-37.0) g/dL Potassium (3.5-5.1) mmol/L BUN (7-17) mg/dL Creatinine (0.52-1.04) mg/dL Glucose (74-99) mg/dL POC Glucose (mg/dL) 156 H (75-99) mg/dL Plasma Lactic Acid Roderick 3.2 H* (0.7-2.0) mmol/L Calcium (8.4-10.2) mg/dL Thrombosis Risk Factor Assmnt - Choose All That Apply Any of the Below Risk Factors Present?: Yes Each Factor Represents 1 point: Abnormal pulmonary function (COPD), Obesity (BMI >25) Other Risk Factors: Yes Each Risk Factor Represents 3 Points: Age 75 years or older Other congenital or acquired thrombophilia - If yes, enter type in comment: No Thrombosis Risk Factor Assessment Total Risk Factor Score: 5 Thrombosis Risk Factor Assessment Level: High Risk
[2019-01-27 07:24] LABS: Glucose,Whole Blood 127 mg/dL (75-99)
[2019-01-27] MEDS: INSULIN ASPART (NovoLOG) 100 UNIT/ML VIAL SQ SCH ×4 (07:29→20:59)
[2019-01-27] MEDS: FUROSEMIDE 20 MG TAB PO SCH (07:59)
[2019-01-27] MEDS: GABAPENTIN 100 MG CAP PO SCH ×3 (07:59→20:59)
[2019-01-27] MEDS: metFORMIN 500 MG TAB PO SCH ×2 (07:59→20:59)
[2019-01-27] MEDS: PRIMIDONE 50 MG TAB PO SCH ×2 (07:59→18:09)
[2019-01-27] MEDS: ASPIRIN 81 MG PO SCH (07:59)
[2019-01-27] MEDS: COLCHICINE 0.6 MG EACH PO SCH ×2 (07:59→18:08)
[2019-01-27] MEDS: LINAGLIPTIN 5 MG TABLET PO SCH (07:59)
[2019-01-27] MEDS: glipiZIDE 10 MG TAB PO SCH ×2 (07:59→18:08)
[2019-01-27] MEDS: EZETIMIBE 10 MG TAB PO SCH (08:00)
[2019-01-27 11:50] LABS: Glucose,Whole Blood 225 mg/dL (75-99)
[2019-01-27 17:02] LABS: Glucose,Whole Blood 65 mg/dL (75-99)
[2019-01-27 17:32] LABS: Glucose,Whole Blood 105 mg/dL (75-99)
[2019-01-27] MEDS: ATORVASTATIN 10 MG TAB PO SCH (18:08)
--- NOTE | 2019-01-27 18:25 | P.PN ---
Progress Note - Text Progress Note Date: 01/27/19 Chief Complaint: Redness of the legs History of presenting complaint: This is a pleasant 78-year-old patient of Dr. Greg Nelson. Chronic stable medical conditions include COPD, diabetes, hyperlipidemia, hypertension, parkinsonism, sleep apnea. Has coronary artery disease with prior bypass. Patient went to some personal situation became homeless a few weeks ago. She now presents with redness some redness in both lower extremity. Patient has very dry skin. Not able to put all of the skin because of her physical stature. Sometimes able to put coconut oil. Not able to cut her toenails. Denies any fever and chills. Patient does have diabetic peripheral neuropathy. She has increasing pain in both lower extremity. Some swelling is present. Being treated for cellulitis and started on IV antibiotics.. Today-lower extremity pain swelling feeling better. Did tolerate her diet. No new issues. Review of systems: Was done for constitutional, cardiovascular, GI, pulmonary. relevant finding as above Active Medications Acetaminophen (Tylenol Tab) 650 mg PO Q6HR PRN PRN Reason: Fever and/ or MILD Pain Last Admin: 01/27/19 13:51 Dose: 650 mg Documented by: Aspirin (Aspirin) 81 mg PO DAILY@0900 [facility] Last Admin: 01/27/19 07:59 Dose: 81 mg Documented by: Atorvastatin Calcium (Lipitor) 10 mg PO HS@1800 [facility] Last Admin: 01/27/19 18:08 Dose: 10 mg Documented by: Colchicine (Colcrys) 0.6 mg PO BID@0900,1800 [facility] Last Admin: 01/27/19 18:08 Dose: 0.6 mg Documented by: Ezetimibe (Zetia) 10 mg PO DAILY@0900 [facility] Last Admin: 01/27/19 08:00 Dose: 10 mg Documented by: Furosemide (Lasix) 20 mg PO DAILY@0900 [facility] Last Admin: 01/27/19 07:59 Dose: 20 mg Documented by: Gabapentin (Neurontin) 100 mg PO TID@0900,1500,2100 [facility] Last Admin: 01/27/19 14:07 Dose: 100 mg Documented by: Glipizide (Glucotrol) 10 mg PO BID@0900,1800 [facility] Last Admin: 01/27/19 18:08 Dose: 10 mg Documented by: Ceftriaxone Sodium 1 gm/ (Sodium Chloride) 50 mls @ 100 mls/hr IVPB Q24H [facility] Last Admin: 01/26/19 20:52 Dose: 100 mls/hr Documented by: Insulin Aspart (Novolog) 0 unit SQ ACHS [facility]; Protocol Last Admin: 01/27/19 17:49 Dose: Not Given Documented by: Linagliptin (Tradjenta) 5 mg PO DAILY [facility] Last Admin: 01/27/19 07:59 Dose: 5 mg Documented by: Metformin HCl (Glucophage) 1,000 mg PO BID [facility] Last Admin: 01/27/19 07:59 Dose: 1,000 mg Documented by: Primidone (Mysoline) 50 mg PO DAILY@0900 [facility] Last Admin: 01/27/19 07:59 Dose: 50 mg Documented by: Primidone (Mysoline) 100 mg PO HS@1800 [facility] Last Admin: 01/27/19 18:09 Dose: 100 mg Documented by: Silver Sulfadiazine (Silvadene Cream) 1 applic TOPICAL BID [facility] Last Admin: 01/27/19 08:01 Dose: 1 applic Documented by: Physical examination: VITAL SIGNS: 97.8, 72, 14, 174/75, 94% room air GENERAL: Sitting up in the bed, more comfortable. EYES: Pupils equal. Conjunctiva normal. HEENT: External appearance of nose and ears normal, oral cavity grossly normal. NECK: JVD not raised; masses not palpable. HEART: First and second heart sounds are normal; no edema. LUNGS: Respiratory rate normal; decreased breath sounds. ABDOMEN: Soft, nontender, liver spleen not palpable, no masses palpable. PSYCH: Alert and oriented x3; mood and affect normal. DERMATOLOGICAL: Dressing on both the legs. INVESTIGATIONS, reviewed in the clinical context: Accu-Cheks 225, 65, 105 Creatinine 1.18 Previous testing White count 5.8 hemoglobin 10.2 platelets 486 potassium 5.2 bun 34 creatinine 1.57 In 2017 and creatinine was 1.33 Lactic acid 2.8 Assessment: -Acute bilateral lower extremity cellulitis secondary to dry skin , with microa ngiopathy organisms -Bilateral lower extremity ichthyosis -Diabetes mellitus type 2 with diabetic peripheral neuropathy -Obesity BMI 39 -Hyperlipidemia -Essential hypertension -Coronary artery disease with prior history of bypass -Chronic kidney disease stage III from diabetic nephropathy and hypertensive nephrosclerosis Plan: Continue with IV ceftriaxone. Clinically feeling better. Discussed with the patient. Should be able to be discharged tomorrow. Repeat labs in the morning.
[2019-01-27 20:41] LABS: Glucose,Whole Blood 154 mg/dL (75-99)
[2019-01-27] MEDS: METOPROLOL TARTRATE 50 MG TAB PO SCH (22:50)
[2019-01-28 07:02] LABS: Glucose,Whole Blood 131 mg/dL (75-99)
[2019-01-28] MEDS: INSULIN ASPART (NovoLOG) 100 UNIT/ML VIAL SQ SCH ×2 (07:15→12:56)
[2019-01-28] MEDS: ASPIRIN 81 MG PO SCH (08:08)
[2019-01-28] MEDS: PRIMIDONE 50 MG TAB PO SCH (08:08)
[2019-01-28] MEDS: EZETIMIBE 10 MG TAB PO SCH (08:08)
[2019-01-28] MEDS: GABAPENTIN 100 MG CAP PO SCH ×2 (08:08→15:36)
[2019-01-28] MEDS: glipiZIDE 10 MG TAB PO SCH (08:08)
[2019-01-28] MEDS: COLCHICINE 0.6 MG EACH PO SCH (08:08)
[2019-01-28] MEDS: METOPROLOL TARTRATE 50 MG TAB PO SCH (08:08)
[2019-01-28] MEDS: LINAGLIPTIN 5 MG TABLET PO SCH (08:08)
[2019-01-28] MEDS: metFORMIN 500 MG TAB PO SCH (08:08)
[2019-01-28] MEDS: FUROSEMIDE 20 MG TAB PO SCH (08:08)
[2019-01-28 09:41] LABS: Calcium 7.8 mg/dL (8.4-10.2)
[2019-01-28 09:45] LABS: Potassium 5.5 mmol/L (3.5-5.1)
[2019-01-28 12:30] LABS: Glucose,Whole Blood 187 mg/dL (75-99)
[2019-01-28 12:47] VITALS: BP 138/70; PULSE 62; RESP 20; TEMP 98.2
[2019-01-28] MEDS ORDERED: SODIUM POLYSTYRENE SULFONATE 15 GM/60 ML BOTTLE PO STA (15:18)
--- NOTE | 2019-01-29 00:06 | P.DS ---
Providers Date of admission: 01/28/19 13:53 Expected date of discharge: 01/28/19 Attending physician: David Jim Consults: 01/26/19 10:41 Consult Physician Routine Consulting Provider: Ryan Steele Consult Reason/Comments: cut toenails Do you want consulting provider notified?: Yes Primary care physician: [facility] Course: Chief Complaint: Redness of the legs Interval history: This is a pleasant 78-year-old patient of Dr. Greg Nelson. Chronic stable medical conditions include COPD, diabetes, hyperlipidemia, hypertension, parkinsonism, sleep apnea. Has coronary artery disease with prior bypass. Patient went to some personal situation became homeless a few weeks ago. She now presents with redness some redness in both lower extremity. Patient has very dry skin. Not able to put all of the skin because of her physical stature. Sometimes able to put coconut oil. Not able to cut her toenails. Denies any fever and chills. Patient does have diabetic peripheral neuropathy. She has increasing pain in both lower extremity. Some swelling is present. Being treated for cellulitis and started on IV antibiotics.. Patient was treated with IV ceftriaxone and Silvadene cream. If Kerlix and Wilmar wrap. Responded well. Symptoms greatly improved. Podiatry was not available for next 1 week hence toenail clipping cannot be done. Today-doing better. Sitting up, so. Care was discussed with the patient. Questions were answered. Dose of Kayexalate was given earlier today. Physical examination: VITAL SIGNS: 98.3, 64, 18, 129/72, 93% room air GENERAL: Sitting up in the chair,. EYES: Pupils equal. Conjunctiva normal. HEENT: External appearance of nose and ears normal, oral cavity grossly normal. NECK: JVD not raised; masses not palpable. HEART: First and second heart sounds are normal; no edema. LUNGS: Respiratory rate normal; decreased breath sounds. ABDOMEN: Soft, nontender, liver spleen not palpable, no masses palpable. PSYCH: Alert and oriented x3; mood and affect normal. DERMATOLOGICAL: Redness swelling, much improved of the lower extremity. INVESTIGATIONS, reviewed in the clinical context: Creatinine 1.36 Previous testing White count 5.8 hemoglobin 10.2 platelets 486 potassium 5.2 bun 34 creatinine 1.57 In 2017 and creatinine was 1.33 Lactic acid 2.8 Discharge diagnosis: -Acute bilateral lower extremity cellulitis secondary to dry skin , with microangiopathy organisms -Bilateral lower extremity ichthyosis -Diabetes mellitus type 2 with diabetic peripheral neuropathy -Obesity BMI 39 -Hyperlipidemia -Essential hypertension -Coronary artery disease with prior history of bypass -Chronic kidney disease stage III from diabetic nephropathy and hypertensive nephrosclerosis Disposition: Home Patient Condition at Discharge: Stable Plan - Discharge Summary Discharge Rx Participant: No New Discharge Prescriptions: New Metoprolol Tartrate [Lopressor] 50 mg PO BID #60 tab SILVER sulfADIAZINE CREAM [Silvadene Cream] 1 applic TOPICAL BID #1 applic Acetaminophen Tab [Tylenol] 650 mg PO Q6HR PRN tab PRN Reason: Fever and/ or MILD Pain Doxycycline [Vibramycin] 100 mg PO BID 3 Days #6 capsule Continue Ezetimibe [Zetia] 10 mg PO DAILY@0900 Lovastatin [Mevacor] 10 mg PO HS@1800 sitaGLIPtin PHOS/metFORMIN HCL [Janumet 50-1,000 mg Tablet] 1 tab PO BID@0900,1800 Primidone [Mysoline] 100 mg PO HS@1800 Furosemide [Lasix] 20 mg PO DAILY@0900 Colchicine [Colcrys] 0.6 mg PO BID@0900,1800 Aspirin EC [Ecotrin Low Dose] 81 mg PO DAILY@0900 Gabapentin [Neurontin] 100 mg PO TID@0900,1500,2100 glipiZIDE XL [Glucotrol XL] 10 mg PO BID@0900,1800 Primidone [Mysoline] 50 mg PO DAILY@0900 Discharge Medication List Ezetimibe [Zetia] 10 mg PO DAILY@0900 11/20/13 [History] Lovastatin [Mevacor] 10 mg PO HS@1800 11/20/13 [History] sitaGLIPtin PHOS/metFORMIN HCL [Janumet 50-1,000 mg Tablet] 1 tab PO BID@0900,1800 08/20/16 [History] Aspirin EC [Ecotrin Low Dose] 81 mg PO DAILY@0900 01/25/19 [History] Colchicine [Colcrys] 0.6 mg PO BID@0900,1800 01/25/19 [History] Furosemide [Lasix] 20 mg PO DAILY@0900 01/25/19 [History] Gabapentin [Neurontin] 100 mg PO TID@0900,1500,2100 01/25/19 [History] Primidone [Mysoline] 50 mg PO DAILY@0900 01/25/19 [History] Primidone [Mysoline] 100 mg PO HS@1800 01/25/19 [History] glipiZIDE XL [Glucotrol XL] 10 mg PO BID@0900,1800 01/25/19 [History] Acetaminophen Tab [Tylenol] 650 mg PO Q6HR PRN tab 01/28/19 [Rx] Doxycycline [Vibramycin] 100 mg PO BID 3 Days #6 capsule 01/28/19 [Rx] Metoprolol Tartrate [Lopressor] 50 mg PO BID #60 tab 01/28/19 [Rx] SILVER sulfADIAZINE CREAM [Silvadene Cream] 1 applic TOPICAL BID #1 applic 01/28/19 [Rx] Follow up Appointment(s)/Referral(s): [facility], [NON-STAFF] - Greg Kline MD [Primary Care Provider] - 1-2 days Patient Instructions/Handouts: Type 2 Diabetes in Adults: New Diagnosis (DC) Activity/Diet/Wound Care/Special Instructions: send home with kerlix and wilmar wrap Discharge Disposition: HOME WITH HOME HEALTH SERVICES
--- NOTE | 2019-02-05 09:15 | CDI ---
Documentation Clarification Form Date: 02/05/2019 8:48:00 AM From: Brigitte Kaplan Phone: If you have a question about this query, please contact Lexi Land Frit Maker at [phone] between 8am and 5pm. Admit Date: 01/28/2019 1:53:00 PM Patient Name: Digna Navarro Visit Number: [id number] Discharge Date: 01/28/2019 4:20:00 PM ATTENTION: The Clinical Documentation Specialists (CDI) and [facility] Coding Staff appreciate your assistance in clarifying documentation. Please respond to the clarification below the line at the bottom and electronically sign. The CDI & [facility] Coding staff will review the response and follow-up if needed. Please note: Queries are made part of the Legal Health Record. If you have any questions, please contact the author of this message via ITS. Dr. David Jim Cellulitis of the bilateral lower extremities. Patient with DM PVD with associated dry skin. Bilateral lower extremity cellulitis secondary to dry skin with microangiopathy organisms. Pldease clarify if cellulitis is related to DM. Patient history/risk factors: PVD, DM, homeless, microangiopathy organisms, ho Vital Signs:98.5 F, 65 bpm, 18 161/70, 94 L RA Treatment: IV antibiotics In your professional opinion, please clarify if cellulitis is related to DM. Cellulitis due to DM PN Cellulitis not due to DM PN Other, please specify: Unable to determine ____Bilateral lower extremity cellulitis, possibly secondary to diabetes mellitus type 2 MTDD
== END 2019-01-28 16:20 | disposition home health service (06) | DRG 638 ==
LOC: EC 19:22 → 4MS4W 21:50 → OBSVTOIN 01-28 13:53
PROVIDERS: ADMIT Hospitalist; ATTEND Hospitalist
DX: E11.628 Type 2 diabetes mellitus with other skin complications (principal); L03.115 Cellulitis of right lower limb; L03.116 Cellulitis of left lower limb; I12.9 Hypertensive chronic kidney disease with stage 1 through stage 4 chronic kidney disease, or unspecified chronic kidney disease; E11.22 Type 2 diabetes mellitus with diabetic chronic kidney disease; N18.3 Chronic kidney disease, stage 3 (moderate); Z79.84 Long term (current) use of oral hypoglycemic drugs; E11.42 Type 2 diabetes mellitus with diabetic polyneuropathy; E11.51 Type 2 diabetes mellitus with diabetic peripheral angiopathy without gangrene; E66.9 Obesity, unspecified; E78.5 Hyperlipidemia, unspecified; E86.0 Dehydration; G20 Parkinson's disease; G47.30 Sleep apnea, unspecified; I25.10 Atherosclerotic heart disease of native coronary artery without angina pectoris; I25.2 Old myocardial infarction; J44.9 Chronic obstructive pulmonary disease, unspecified; K11.20 Sialoadenitis, unspecified; B88.8 Other specified infestations; Z68.39 Body mass index [BMI] 39.0-39.9, adult; Z79.82 Long term (current) use of aspirin; Z79.899 Other long term (current) drug therapy; Z80.0 Family history of malignant neoplasm of digestive organs; Z80.1 Family history of malignant neoplasm of trachea, bronchus and lung; Z80.3 Family history of malignant neoplasm of breast; Z82.49 Family history of ischemic heart disease and other diseases of the circulatory system; Z82.5 Family history of asthma and other chronic lower respiratory diseases; Z87.891 Personal history of nicotine dependence; Z90.710 Acquired absence of both cervix and uterus; Z95.1 Presence of aortocoronary bypass graft; Z88.4 Allergy status to anesthetic agent; Z88.8 Allergy status to other drugs, medicaments and biological substances; Z59.0 Homelessness
CPT/HCPCS: 36415; 80048; 80053; 82565; 83605; 83735; 84100; 84484; 85025; 85610; 85730; 87040; 93005; 94760; 96365; 96375; 99285

== ENCOUNTER 2019-10-19 22:23 | Inpatient (IN) | payer MEDICARE, OTHER ==
[2019-10-19] MEDS ORDERED: IPRATROPIUM-ALBUTEROL 3 ML NEB INHALATION STA (22:41)
--- NOTE | 2019-10-19 23:06 | ED ---
Weakness HPI - General Chief complaint: Weakness Stated complaint: leg pain Time Seen by Provider: 10/19/19 22:25 Source: EMS, RN notes reviewed, old records reviewed Mode of arrival: EMS Limitations: no limitations, altered mental status - History of Present Illness Initial comments: This is an 79-year-old female poor historian coming in for evaluation patient is lower extremity edema cellulitis and erythema. Patient also admits to some shortness of breath relatively poor strain with swelling and legs is increased patient EMS was called by patient's son states patient was not acting appropriately. Patient without significant complaint here in the ER no complaints of pain MD Complaint: generalized weakness, lack of energy -: hour(s) Location: generalized Severity: moderate Severity scale (1-10): 4 Consistency: intermittent Improves with: none Worsens with: morning Context: recent illness Associated Symptoms: denies other symptoms - Related Data Home Medications Medication Instructions Recorded Confirmed Ezetimibe [Zetia] 10 mg PO DAILY@0900 11/20/13 01/25/19 Lovastatin [Mevacor] 10 mg PO HS@1800 11/20/13 01/25/19 sitaGLIPtin PHOS/metFORMIN HCL 1 tab PO BID@0900,1800 08/20/16 01/25/19 [Janumet 50-1,000 mg Tablet] Aspirin EC [Ecotrin Low Dose] 81 mg PO DAILY@0900 01/25/19 01/25/19 Colchicine [Colcrys] 0.6 mg PO BID@0900,1800 01/25/19 01/25/19 Furosemide [Lasix] 20 mg PO DAILY@0900 01/25/19 01/25/19 Gabapentin [Neurontin] 100 mg PO TID@0900,1500,2100 01/25/19 01/25/19 Primidone [Mysoline] 50 mg PO DAILY@0900 01/25/19 01/25/19 Primidone [Mysoline] 100 mg PO HS@1800 01/25/19 01/25/19 glipiZIDE XL [Glucotrol XL] 10 mg PO BID@0900,1800 01/25/19 01/25/19 Previous Rx's Medication Instructions Recorded Acetaminophen Tab [Tylenol] 650 mg PO Q6HR PRN tab 01/28/19 Doxycycline [Vibramycin] 100 mg PO BID 3 Days #6 capsule 10/20/19 Metoprolol Tartrate [Lopressor] 50 mg PO BID #60 tab 01/28/19 SILVER sulfADIAZINE CREAM 1 applic TOPICAL BID #1 applic 01/28/19 [Silvadene Cream] Allergies Allergy/AdvReac Type Severity Reaction Status Date / Time cortisone AdvReac PAIN Verified 10/19/19 22:33 procaine HCl [From Novocain] AdvReac pain Verified 10/19/19 22:33 allergy medicines AdvReac "dries me Uncoded 10/19/19 22:33 out, bloody noses,generalized pain" Review of Systems ROS Statement: Those systems with pertinent positive or pertinent negative responses have been documented in the HPI. ROS Other: All systems not noted in ROS Statement are negative. Past Medical History Past Medical History: COPD, Diabetes Mellitus, Hyperlipidemia, Hypertension, Myocardial Infarction ([place]), Sleep Apnea/CPAP/BIPAP Additional Past Medical History / Comment(s): parkinsonism, NO left arm blood draw or blood pressure Last Myocardial Infarction Date:: 1999 History of Any Multi-Drug Resistant Organisms: None Reported Past Surgical History: Appendectomy, Coronary Bypass/CABG, Heart Catheterization, Hysterectomy Past Anesthesia/Blood Transfusion Reactions: No Reported Reaction Past Psychological History: No Psychological Hx Reported Smoking Status: Former smoker Past Alcohol Use History: None Reported Past Drug Use History: None Reported - Past Family History Mother Family Medical History: COPD, Myocardial Infarction ([place]) Brother(s) Family Medical History: Cancer Additional Family Medical History / Comment(s): LUNG CANCER Son(s) Family Medical History: Cancer Additional Family Medical History / Comment(s): COLON CANCER Sister(s) Family Medical History: Cancer Additional Family Medical History / Comment(s): (2) SISTERS HAD BREAST CANCER. General Exam Limitations: no limitations General appearance: alert, in no apparent distress Head exam: Present: atraumatic, normocephalic, normal inspection Eye exam: Present: normal appearance, PERRL, EOMI. Absent: scleral icterus, conjunctival injection, periorbital swelling ENT exam: Present: normal exam, mucous membranes moist Neck exam: Present: normal inspection. Absent: tenderness, meningismus, lymphadenopathy Respiratory exam: Present: normal lung sounds bilaterally. Absent: respiratory distress, wheezes, rales, rhonchi, stridor Cardiovascular Exam: Present: regular rate, normal rhythm, normal heart sounds. Absent: systolic murmur, diastolic murmur, rubs, gallop, clicks GI/Abdominal exam: Present: soft, normal bowel sounds. Absent: distended, tenderness, guarding, rebound, rigid Extremities exam: Present: normal inspection, full ROM, normal capillary refill, other (Lower extremity edema left-sided cellulitis). Absent: tenderness, pedal edema, joint swelling, calf tenderness Back exam: Present: normal inspection Neurological exam: Present: alert, oriented X3, CN II-XII intact Psychiatric exam: Present: normal affect, normal mood Skin exam: Present: warm, dry, intact, normal color. Absent: rash Course Vital Signs 10/19/19 10/19/19 10/19/19 22:24 22:59 23:23 Temperature 98.9 F Pulse Rate 75 69 71 Respiratory 18 18 Rate Blood Pressure 155/69 - Reevaluation(s) Reevaluation #1: 10/19/19 23:29 Medical records reviewed EKG Findings - EKG Comments: EKG Findings:: EKG shows sinus rhythm of 73, WI 122 QRS 82 QTC 407 Medical Decision Making - Medical Decision Making 79 female DF for evaluation of bilateral lower [place] Sandra source of breath oxygen in the 80s to 90s patient given diuresis breathing treatments. IV antibiotics - Radiology Data Radiology results: report reviewed (Chest x-ray positive for CHF), image reviewed Disposition Clinical Impression: Bilateral cellulitis of lower leg, CHF (congestive heart failure) Disposition: ADMITTED IP TO THIS HOSP Condition: Fair Is patient prescribed a controlled substance at d/c from ED?: No Referrals: Greg Kline MD [Primary Care Provider] - 1-2 days
--- NOTE | 2019-10-19 23:21 | XR ---
EXAMINATION TYPE: XR chest 2V DATE OF EXAM: 10/19/2019 COMPARISON: 07/28/2016 HISTORY: Weakness TECHNIQUE: 2 views FINDINGS: Heart is enlarged. There is mild blunting of the right costophrenic angle. There is mild pe lvic congestion. There are no hilar masses. Thoracic aorta is atheromatous. There are sternal wires. IMPRESSION: There is evidence for some mild congestive heart failure that appears new compared to old exam. Small right pleural effusion.
[2019-10-19] MEDS ORDERED: AZITHROMYCIN 500 MG in SODIUM CHLORIDE 0.9% 250 ML IVPB STA (23:30)
[2019-10-19] MEDS ORDERED: PNEUMONIA PROTOCOL UTILIZED 1 EACH MISC PO PRN (23:30)
[2019-10-19 23:33] LABS: Albumin 3.8 g/dL (3.5-5.0); Calcium 8.6 mg/dL (8.4-10.2); Magnesium 2.1 mg/dL (1.6-2.3); Phosphorus 4.5 mg/dL (2.5-4.5); Potassium 5.4 mmol/L (3.5-5.1); Total Bilirubin 0.3 mg/dL (0.2-1.3); Total Protein 7.2 g/dL (6.3-8.2)
[2019-10-19 23:36] LABS: Anisocytosis Slight; Basophils % (A) 0 %; Eosinophils # (A) 0.4 k/uL (0-0.7); Eosinophils % (A) 6 %; HGB 10.3 gm/dL (11.4-16.0); Hypochromasia Marked; Lymphocytes # (A) 1.4 k/uL (1.0-4.8); Lymphocytes % (A) 24 %; MCH 33.3 pg (25.0-35.0); MCHC 31.1 g/dL (31.0-37.0); MCV 107.2 fL (80.0-100.0); Macrocytosis Marked; Mean Platelet Volume 7.2; Monocytes # (A) 0.4 k/uL (0-1.0); Monocytes % (A) 7 %; Neutrophils # (A) 3.7 k/uL (1.3-7.7); Neutrophils % (A) 61 %; Platelet Count 193 k/uL (150-450); RBC 3.08 m/uL (3.80-5.40); RDW 16.8 % (11.5-15.5)
[2019-10-19 23:37] LABS: Partial Thromboplastin Time 25.1 sec (22.0-30.0); Prothrombin Time 10.3 sec (9.0-12.0)
[2019-10-20 00:06] LABS: Appearance,Urine Clear (Clear); Bilirubin,Urine Negative (Negative); Blood,Urine Negative (Negative); Color,Urine Light Yellow; Glucose,Urine (UA) Negative (Negative); Ketones,Urine Negative (Negative); Leukocyte Esterase,Urine Large (Negative); Mucus,Urine Rare /hpf; Nitrite,Urine Negative (Negative); PH, Urine 5.5 (5.0-8.0); Protein,Urine Trace (Negative); RBC,Urine 2 /hpf (0-5); Specific Gravity,Urine 1.009 (1.001-1.035); Squamous Epithelial Cell,Urine <1 /hpf (0-4); Urobilinogen,Urine <2.0 mg/dL (<2.0); WBC,Urine 48 /hpf (0-5)
[2019-10-20] MEDS: FUROSEMIDE 10 MG/ML 4 ML VIAL IV SCH ×2 (00:24→09:35)
[2019-10-20 06:23] LABS: Glucose,Whole Blood 77 mg/dL (75-99)
--- NOTE | 2019-10-20 07:22 | XR ---
EXAMINATION TYPE: XR chest 2V DATE OF EXAM: 10/20/2019 COMPARISON: 10/19/2019 HISTORY: Shortness of breath TECHNIQUE: Frontal and lateral views of the chest are obtained. FINDINGS: Scattered senescent parenchymal changes noted. Hyperinflation compatible with COPD. No evidence for infiltrate. No evidence for atelectasis. Suspect small effusions. Continued cardiomegaly with pulmonary venous congestion. No evidence for overt failure. Mediastinal structures are stable and grossly unremarkable. No evidence for hilar prominence. Degenerative changes dorsal spine. IMPRESSION: 1. No evidence for acute pulmonary disease.
[2019-10-20] MEDS: IPRATROPIUM-ALBUTEROL 3 ML NEB INHALATION SCH ×4 (08:28→19:28)
[2019-10-20 10:51] VITALS: BMI 37.0
[2019-10-20 12:32] LABS: Glucose,Whole Blood 238 mg/dL (75-99)
--- NOTE | 2019-10-20 13:16 | ECHOF ---
Referral Reason:Heart Failure MEASUREMENTS -------- HEIGHT: 157.5 cm WEIGHT: 91.6 kg BP: 148/86 RVIDd: 3.9 cm (< 3.3) IVSd: 1.4 cm (0.6 - 1.1) LVIDd: 4.3 cm (3.9 - 5.3) LVPWd: 1.6 cm (0.6 - 1.1) IVSs: 2.1 cm LVIDs: 2.9 cm LVPWs: 2.2 cm LAESV Index (A-L): 30.45 ml/m Ao Diam: 3.0 cm (2.0 - 3.7) AV Cusp: 1.8 cm (1.5 - 2.6) MV EXCURSION: 15.662 mm (> 18.000) MV EF SLOPE: 89 mm/s (70 - 150) EPSS: 0.6 cm MV E Kirk: 1.21 m/s MV DecT: 175 ms MV A Kirk: 0.96 m/s MV E/A Ratio: 1.26 RAP: 20.00 mmHg RVSP: 79.66 mmHg FINDINGS -------- Sinus rhythm. This was a technically difficult study with suboptimal apical views. The left ventricular size is normal. There is moderate concentric left ventricular hypertrophy. O verall left ventricular systolic function is mildly impaired with, an EF between 45 - 50 %. Mitral Doppler inflow pattern suggests diastolic filling abnormality 20.14. Septal wall motion is delayed and consistent with prior cardiac surgery. The right ventricle is normal in size. LA is midly dilated 29-33ml/m2. The right atrium was not well visualized. xx ml of Lumason was utilized for enhancement of images. Interatrial and interventricular septum intact. The aortic valve was not well visualized. There is no evidence of aortic regurgitation. There is no evidence of aortic stenosis. Mild mitral regurgitation is present. Moderate to severe tricuspid regurgitation present. There is severe pulmonary hypertension. The r ight ventricular systolic pressure, as measured by Doppler, is 79.66mmHg. There is no pulmonic regurgitation present. The aortic root size is normal. The inferior vena cava is dilated with no significant inspiratory collapse which is consistent estima codie right atrial pressure of >20 mmHg. There is no pericardial effusion. CONCLUSIONS -------- 1. Sinus rhythm. 2. This was a technically difficult study with suboptimal apical views. 3. The left ventricular size is normal. 4. There is moderate concentric left ventricular hypertrophy. 5. Overall left ventricular systolic function is mildly impaired with, an EF between 45 - 50 %. 6. Mitral Doppler inflow pattern suggest diastolic filling abnormality 20.14. 7. Septal wall motion is delayed and consistent with prior cardiac surgery. 8. The right ventricle is normal in size. 9. LA is midly dilated 29-33ml/m2. 10. The right atrium was not well visualized. 11. xx ml of Lumason was utilized for enhancement of images. 12. Interatrial and interventricular septum intact. 13. The aortic valve was not well visualized. 14. There is no evidence of aortic regurgitation. 15. There is no evidence of aortic stenosis. 16. Mild mitral regurgitation is present. 17. Moderate to severe tricuspid regurgitation present. 18. There is severe pulmonary hypertension. 19. The right ventricular systolic pressure, as measured by Doppler, is 79.66mmHg. 20. There is no pulmonic regurgitation present. 21. The aortic root size is normal. 22. The inferior vena cava is dilated with no significant inspiratory collapse which is consistent es timated right atrial pressure of >20 mmHg. 23. There is no pericardial effusion. GUEST SERVICE TEAM LEADER: Elizabet Long RDCS
[2019-10-20] MEDS ORDERED: ALBUTEROL NEBULIZED 2.5 MG/3 ML INHALATION PRN (13:28)
[2019-10-20] MEDS ORDERED: VITAMIN B12 PO SCH (15:00)
[2019-10-20] MEDS: GABAPENTIN 100 MG CAP PO SCH ×2 (15:47→17:51)
[2019-10-20] MEDS: guaiFENesin 600 MG TABLET.ER PO SCH ×2 (15:47→20:57)
[2019-10-20] MEDS: COLCHICINE 0.6 MG EACH PO SCH ×2 (15:47→20:39)
[2019-10-20] MEDS: FOLIC ACID 1 MG TAB PO SCH (15:47)
[2019-10-20] MEDS: MULTIVITAMINS, THERA 1 EACH TAB PO SCH (15:48)
[2019-10-20] MEDS: FUROSEMIDE 10 MG/ML 10 ML VIAL IV SCH (15:48)
[2019-10-20] MEDS: EZETIMIBE 10 MG TAB PO SCH (15:49)
[2019-10-20] MEDS: ENOXAPARIN 40 MG/0.4 ML SYRINGE SQ SCH ×2 (15:51→16:12)
[2019-10-20] MEDS: LINAGLIPTIN 5 MG TABLET PO SCH (15:52)
--- NOTE | 2019-10-20 15:59 | P.HPIM ---
History of Present Illness H&P Date: 10/20/19 Chief Complaint: Short of breath History of presenting complaint: This is a pleasant 79-year-old patient of Dr. Greg Kline. Chronic stable medical conditions include COPD, diabetes, hyperlipidemia, hypertension, parkinsonism, sleep apnea, coronary artery disease with prior bypass. Normally lives alone and gets uses a walker to get about. Patient presents with progressive swelling of the lower extremity and also shortness of breath. With minimal activity. Slight cough. Appetite is fair. No fever no chills. Some orthopnea. No chest pain. Given IV Lasix to which she felt better. Patient's had some cellulitis lower extremity. Review of systems: GEN.: Tired EYES: None HEENT: None NECK: None RESPIRATORY: As above CARDIOVASCULAR: As above GASTROINTESTINAL: None GENITOURINARY: None MUSCULOSKELETAL: . Pain in joints LYMPHATICS: None HEMATOLOGICAL: None PSYCHIATRY: None NEUROLOGICAL: None Social history: -Lives alone at [facility]. Does use a walker. Ex-smoker No alcohol. Physical examination: VITAL SIGNS: 98.9, 75, 18, 155-69, 100% on 3 L GENERAL: Sitting up in a chair, tired EYES: Pupils equal. Conjunctiva normal. HEENT: External appearance of nose and ears normal, oral cavity grossly normal. NECK: JVD possibly raised; masses not palpable. HEART: First and second heart sounds are normal; edema present LUNGS: Respiratory rate increased, diminished breath sounds ABDOMEN: Soft, nontender, liver spleen not palpable, no masses palpable. PSYCH: Alert and oriented x3; mood and affect normal. NEUROLOGICAL: Cranial nerves grossly intact; no facial asymmetry, power grossly intact and sensation decreased distally. LYMPHATICS: No lymph nodes palpable in the axilla and neck DERMATOLOGICAL: Dry skin, with disfigured nails. Some redness to the both lower extremity distally INVESTIGATIONS, reviewed in the clinical context: White count 6 hemoglobin 10.3 platelets 193 potassium 5.4 bun 37 creatinine 1.46 Lactic acid 3.1 troponin I less than 0.012 proBNP 1860 UA positive for leukoesterase WBC EKG tracing personally reviewed by me-process of the flipped T waves in 1 aVL and V3 to V6 Chest x-ray film personally reviewed by me-cardiomegaly venous prominence Previous testing: Bun 26 creatinine 1.36 and January 2010 Assessment: -Acute congestive heart failure exacerbation -Bilateral lower extremity ichthyosis -Diabetes mellitus type 2 with diabetic peripheral neuropathy -Obesity BMI 39 -Hyperlipidemia -Essential hypertension -Coronary artery disease with prior history of bypass -Chronic kidney disease stage III from diabetic nephropathy and hypertensive nephrosclerosis -Chronic gait dysfunction does use a walker Plan: -Patient be changed to Lasix 60 mg IV every 8. Some fluid restriction. Wilmar wrap lower extremity with Silvadene and Kerlix. Also start the patient on oral clindamycin. Order 2-D echocardiogram. Consult cardiology. Care was discussed with the patient question were answered. Past Medical History Past Medical History: COPD, Diabetes Mellitus, Hyperlipidemia, Hypertension, Myocardial Infarction ([place]), Sleep Apnea/CPAP/BIPAP Additional Past Medical History / Comment(s): parkinson, NO left arm blood draw or blood pressure Last Myocardial Infarction Date:: 1999 History of Any Multi-Drug Resistant Organisms: None Reported Past Surgical History: Appendectomy, Coronary Bypass/CABG, Heart Catheterization, Hysterectomy Past Anesthesia/Blood Transfusion Reactions: No Reported Reaction Past Psychological History: No Psychological Hx Reported Smoking Status: Former smoker Past Alcohol Use History: None Reported Past Drug Use History: None Reported - Past Family History Mother Family Medical History: COPD, Myocardial Infarction ([place]) Brother(s) Family Medical History: Cancer Additional Family Medical History / Comment(s): LUNG CANCER Son(s) Family Medical History: Cancer Additional Family Medical History / Comment(s): COLON CANCER Sister(s) Family Medical History: Cancer Additional Family Medical History / Comment(s): (2) SISTERS HAD BREAST CANCER. Medications and Allergies Home Medications Medication Instructions Recorded Confirmed Type Ezetimibe [Zetia] 10 mg PO DAILY@0900 11/20/13 10/19/19 History Lovastatin [Mevacor] 10 mg PO HS@1800 11/20/13 10/19/19 History sitaGLIPtin PHOS/metFORMIN HCL 1 tab PO BID@0900,1800 08/20/16 10/19/19 History [Janumet 50-1,000 mg Tablet] Aspirin EC [Ecotrin Low Dose] 81 mg PO DAILY@0900 01/25/19 10/19/19 History Colchicine [Colcrys] 0.6 mg PO BID@0900,1800 01/25/19 10/19/19 History Furosemide [Lasix] 20 mg PO DAILY@0900 01/25/19 10/19/19 History Gabapentin [Neurontin] 100 mg PO TID@0900,1500,1800 01/25/19 10/19/19 History Primidone [Mysoline] 50 mg PO DAILY@0900 01/25/19 10/19/19 History Primidone [Mysoline] 100 mg PO HS@1800 01/25/19 10/19/19 History glipiZIDE XL [Glucotrol XL] 10 mg PO BID@0900,1800 01/25/19 10/19/19 History Albuterol Inhaler [Ventolin Hfa 2 puff INHALATION RT-QID PRN 10/19/19 10/19/19 History Inhaler] Folic Acid(Unknown Dose) 1 tab PO DAILY@1500 10/19/19 10/19/19 History Multivitamins, Thera [Multivitamin 1 tab PO DAILY@1500 10/19/19 10/19/19 History (formulary)] Vitamin B-12(Unknown Dose) 1 tab PO DAILY@1500 10/19/19 10/19/19 History Allergies Allergy/AdvReac Type Severity Reaction Status Date / Time cortisone AdvReac PAIN Verified 10/19/19 23:32 procaine HCl [From Novocain] AdvReac pain Verified 10/19/19 23:32 allergy medicines AdvReac "dries me Uncoded 10/19/19 23:32 out, bloody noses,generalized pain" Physical Exam Vitals: Vital Signs Temp Pulse Pulse Resp BP BP Pulse Ox 10/20/19 08:40 76 10/20/19 08:28 76 10/20/19 03:24 98.2 F 61 20 148/86 94 L 10/20/19 03:21 77 20 10/20/19 00:33 98.4 F 77 20 152/90 99 10/20/19 00:00 72 18 164/72 100 10/19/19 23:25 98.3 F 73 18 172/78 100 10/19/19 23:23 71 10/19/19 22:59 69 18 10/19/19 22:24 98.9 F 75 18 155/69 Intake and Output 10/19/19 10/20/19 10/20/19 22:59 06:59 14:59 Other: # Voids 3 Weight 92.896 kg 91.8 kg 91.8 kg Results CBC & Chem 7: 10/19/19 22:42 10/19/19 22:42 Labs: Abnormal Lab Results - Last 24 Hours (Table) 10/19/19 10/19/19 10/19/19 Range/Units 22:42 22:42 22:42 RBC 3.08 L (3.80-5.40) m/uL Hgb 10.3 L (11.4-16.0) gm/dL Hct 33.0 L (34.0-46.0) % MCV 107.2 H (80.0-100.0) fL RDW 16.8 H (11.5-15.5) % Macrocytosis Marked A Sodium 135 L (137-145) mmol/L Potassium 5.4 H (3.5-5.1) mmol/L Carbon Dioxide 21 L (22-30) mmol/L BUN 37 H (7-17) mg/dL Creatinine 1.46 H (0.52-1.04) mg/dL Glucose 119 H (74-99) mg/dL Plasma Lactic Acid Roderick 3.1 H* (0.7-2.0) mmol/L Urine Protein (Negative) Ur Leukocyte Esterase (Negative) Urine WBC (0-5) /hpf Urine Mucus (None) /hpf 10/19/19 10/20/19 Range/Units 23:46 01:53 RBC (3.80-5.40) m/uL Hgb (11.4-16.0) gm/dL Hct (34.0-46.0) % MCV (80.0-100.0) fL RDW (11.5-15.5) % Macrocytosis Sodium (137-145) mmol/L Potassium (3.5-5.1) mmol/L Carbon Dioxide (22-30) mmol/L BUN (7-17) mg/dL Creatinine (0.52-1.04) mg/dL Glucose (74-99) mg/dL Plasma Lactic Acid Roderick 2.6 H* (0.7-2.0) mmol/L Urine Protein Trace H (Negative) Ur Leukocyte Esterase Large H (Negative) Urine WBC 48 H (0-5) /hpf Urine Mucus Rare H (None) /hpf Thrombosis Risk Factor Assmnt - Choose All That Apply Each Factor Represents 1 point: Abnormal pulmonary function (COPD), Swollen legs (current) Each Risk Factor Represents 3 Points: Age 75 years or older Other congenital or acquired thrombophilia - If yes, enter type in comment: No Thrombosis Risk Factor Assessment Total Risk Factor Score: 5 Thrombosis Risk Factor Assessment Level: High Risk
[2019-10-20] MEDS ORDERED: IBUPROFEN 400 MG TAB PO PRN (16:11)
[2019-10-20 17:14] LABS: Glucose,Whole Blood 79 mg/dL (75-99)
[2019-10-20] MEDS: INSULIN ASPART (NovoLOG) 100 UNIT/ML VIAL SQ SCH ×2 (17:39→20:32)
[2019-10-20] MEDS: PRIMIDONE 50 MG TAB PO SCH (17:47)
[2019-10-20] MEDS: glipiZIDE 10 MG TAB PO SCH (17:47)
[2019-10-20] MEDS: ATORVASTATIN 10 MG TAB PO SCH (17:47)
[2019-10-20 20:03] LABS: Glucose,Whole Blood 135 mg/dL (75-99)
[2019-10-20] MEDS: metFORMIN 500 MG TAB PO SCH (20:50)
[2019-10-20] MEDS ORDERED: AZITHROMYCIN 500 MG TAB PO SCH (21:00)
[2019-10-21] MEDS: FUROSEMIDE 10 MG/ML 10 ML VIAL IV SCH ×3 (00:38→14:26)
[2019-10-21 06:09] LABS: Glucose,Whole Blood 106 mg/dL (75-99)
[2019-10-21] MEDS: INSULIN ASPART (NovoLOG) 100 UNIT/ML VIAL SQ SCH ×3 (06:27→14:26)
[2019-10-21] MEDS: IPRATROPIUM-ALBUTEROL 3 ML NEB INHALATION SCH ×3 (07:38→14:26)
[2019-10-21 07:52] VITALS: TEMP 97
[2019-10-21] MEDS: LINAGLIPTIN 5 MG TABLET PO SCH (08:10)
[2019-10-21] MEDS: metFORMIN 500 MG TAB PO SCH (08:10)
[2019-10-21] MEDS: glipiZIDE 10 MG TAB PO SCH ×2 (08:12→14:26)
[2019-10-21] MEDS: GABAPENTIN 100 MG CAP PO SCH ×3 (08:13→14:28)
[2019-10-21] MEDS: guaiFENesin 600 MG TABLET.ER PO SCH ×2 (08:13→08:25)
[2019-10-21] MEDS: COLCHICINE 0.6 MG EACH PO SCH ×2 (08:13→14:26)
[2019-10-21] MEDS: EZETIMIBE 10 MG TAB PO SCH (08:14)
--- NOTE | 2019-10-21 08:17 | P.CRDCN ---
History of Present Illness Consult date: 10/21/19 Requesting physician: David Jim Consult reason: congestive heart failure History of present illness: History of present illness: This is an 79-year-old female patient. She has a past medical history of coronary artery disease status post 4 vessel CABG many years ago by Dr. Lopez, diabetes mellitus type 2, COPD, hypertension, hyperlipidemia, possible sleep apnea patient denies, Parkinson, obesity, remote history of tobacco use. Patient states that she follows with Dr. Nelson every 3 months regarding her diabetes and he was concerned regarding circulation to the left foot and has referred her to Dr. Burnett with her first appointment scheduled on November 18. 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 Patient gives history of having difficulty with breathing especially with activity for about 6 months. She has not told Dr. Nelson about this when she is in the office. She denies any oxygen use at home. She states she resides in an apartment and she will he is walk a short distance to get to the kitchen but in with that she has to sit down on her walker and breast. If she lifts anything she has to rest for about 10 minutes to catch her breath. Patient states she developed significant lower extremity edema to both legs. She admits to significant improvement since hospitalized. Patient was treated with Lasix 40 mg every 8 hours changed yesterday to Lasix 60 mg every 8 hours. Patient states she has been urinating frequently and lower extremity is much improved although there is some residual on the left lower extremity. Patient also admits to having dysphagia and complains of left hip/back discomfort since a fall about a month ago. Troponins been negative on 3 draws. Hemoglobin 10.3, sodium 135, potassium 5.4, chloride 102, CO2 21, BUN 37 creatinine 1.46, blood sugar 119. Urinalysis revealed leukoesterase large and WBCs 48. Chest x-ray initially showed mild CHF nail with small right pleural effusion. Repeat chest x-ray this morning shows no acute pulmonary disease. Echocardiogram reveals moderate concentric left ventricle hypertrophy, EF 45-50%, mild mitral regurgitation, moderate to severe tricuspid regurgitation, severe pulmonary hypertension with RVSP 79 mmHg. EKG sinus rhythm Initial lactic acid was 3.1 with repeat down to 1.8. Review Of Systems: Constitutional: No fever, no chills. Reports weakness, reports fatigue, denies lethargy. EENT: No headache. No blurred vision or double vision, no loss of vision. No loss of Hearing, no dizziness. No nasal drainage or congestion. No epistaxis. No sore throat. Reports dysphagia. Lungs: Reports shortness of breath, reports cough, reports clear/white sputum production. No wheezing. Cardiovascular: No chest pain, reports lower extremity edema. No palpitations. No paroxysmal nocturnal dyspnea. reports orthopnea. No lightheadedness or diz ziness. No syncopal episodes. Abdominal: No abdominal pain. No nausea, vomiting. No diarrhea. No constipation. No bloody or tarry stools.. No loss of appetite. Genitourinary: No dysuria, increased frequency, urgency. No urinary retention. Musculoskeletal: No myalgias. No muscle weakness, no gait dysfunction, no frequent falls. No back pain. No neck pain. Integumentary: No wounds, no lesions. No rash or pruritus. No unusual bruising. Reports discoloration of the toes. Neurologic: No aphasia. No facial droop. No change in mentation. No head injury. No headache. No paralysis. No paresthesia. Psychiatric: No depression. No anxiety. No mood swings. Endocrine: Reports abnormal blood sugars. No weight change. No excessive sweating or thirst. No weight change. Physical examination: Gen: This is an 79-year-old obese female. She is resting Piner and appears to be comfortable. Patient is able to speak in full sentences. No acute respiratory distress is noted at rest. VS: Afebrile, heart rate 67, blood pressure 142/77, pulse ox 93% on room air. HEENT: Head is atraumatic, normocephalic. Pupils equal, round. Sclerae is anicteric. NECK: Supple. No JVD. No lymphadenopathy. No thyromegaly. LUNGS: Crackles at bilateral bases. No wheezes or rhonchi. No intercostal retractions. HEART: Regular rate and rhythm. No murmur. ABDOMEN: Soft. Obese. Bowel sounds are present. No masses. No tenderness. EXTREMITIES: No pedal edema to the right lower extremity. Left lower extremity has 1+ edema with purple discoloration of the toes. Pulse on the right is 2+, 1+ on the left. No open wounds. NEUROLOGICAL: Patient is awake, alert and oriented x3. Cranial nerves 2 through 12 are grossly intact. Assessment: Acute systolic heart failure Valvular heart disease with mild mitral regurgitation, moderate to severe tri cuspid regurgitation and severe pulmonary hypertension Peripheral vascular disease History of coronary artery disease with previous four-vessel CABG Hypertension Hyperlipidemia Diabetes mellitus type II Chronic kidney disease stage III Possible obstructive sleep apnea-patient denies Remote history of tobacco use Plan: Continue IV Lasix currently at 60 mg every 8 hours Obtain d-dimer Monitor I&O and daily weights Monitor electrolytes and renal function Patient will follow up with Dr. Burnett at time of discharge Further recommendations based upon clinical course Thank you kindly for this consultation Nurse practitioner note has been reviewed, I agree with documented findings and plan of care. Patient was seen and examined. Past Medical History Past Medical History: COPD, Diabetes Mellitus, Hyperlipidemia, Hypertension, Myocardial Infarction ([place]), Sleep Apnea/CPAP/BIPAP Additional Past Medical History / Comment(s): parkinson, NO left arm blood draw or blood pressure Last Myocardial Infarction Date:: 1999 History of Any Multi-Drug Resistant Organisms: None Reported Past Surgical History: Appendectomy, Coronary Bypass/CABG, Heart Catheterization, Hysterectomy Past Anesthesia/Blood Transfusion Reactions: No Reported Reaction Past Psychological History: No Psychological Hx Reported Smoking Status: Former smoker Past Alcohol Use History: None Reported Past Drug Use History: None Reported - Past Family History Mother Family Medical History: COPD, Myocardial Infarction ([place]) Brother(s) Family Medical History: Cancer Additional Family Medical History / Comment(s): LUNG CANCER Son(s) Family Medical History: Cancer Additional Family Medical History / Comment(s): COLON CANCER Sister(s) Family Medical History: Cancer Additional Family Medical History / Comment(s): (2) SISTERS HAD BREAST CANCER. Medications and Allergies Home Medications Medication Instructions Recorded Confirmed Type Ezetimibe [Zetia] 10 mg PO DAILY@0900 11/20/13 10/19/19 History Lovastatin [Mevacor] 10 mg PO HS@1800 11/20/13 10/19/19 History sitaGLIPtin PHOS/metFORMIN HCL 1 tab PO BID@0900,1800 08/20/16 10/19/19 History [Janumet 50-1,000 mg Tablet] Aspirin EC [Ecotrin Low Dose] 81 mg PO DAILY@0900 01/25/19 10/19/19 History Colchicine [Colcrys] 0.6 mg PO BID@0900,1800 01/25/19 10/19/19 History Furosemide [Lasix] 20 mg PO DAILY@0900 01/25/19 10/19/19 History Gabapentin [Neurontin] 100 mg PO TID@0900,1500,1800 01/25/19 10/19/19 History Primidone [Mysoline] 50 mg PO DAILY@0900 01/25/19 10/19/19 History Primidone [Mysoline] 100 mg PO HS@1800 01/25/19 10/19/19 History glipiZIDE XL [Glucotrol XL] 10 mg PO BID@0900,1800 01/25/19 10/19/19 History Albuterol Inhaler [Ventolin Hfa 2 puff INHALATION RT-QID PRN 10/19/19 10/19/19 History Inhaler] Folic Acid(Unknown Dose) 1 tab PO DAILY@1500 10/19/19 10/19/19 History Multivitamins, Thera [Multivitamin 1 tab PO DAILY@1500 10/19/19 10/19/19 History (formulary)] Vitamin B-12(Unknown Dose) 1 tab PO DAILY@1500 10/19/19 10/19/19 History Allergies Allergy/AdvReac Type Severity Reaction Status Date / Time cortisone AdvReac PAIN Verified 10/19/19 23:32 procaine HCl [From Novocain] AdvReac pain Verified 10/19/19 23:32 allergy medicines AdvReac "dries me Uncoded 10/19/19 23:32 out, bloody noses,generalized pain" Physical Exam Vitals: Vital Signs Temp Pulse Pulse Pulse Resp BP Pulse Ox 10/21/19 04:00 98.2 F 61 67 18 142/77 93 L 10/21/19 00:00 97.9 F 61 63 18 148/75 10/20/19 20:00 98.1 F 61 74 18 152/70 10/20/19 19:43 72 10/20/19 19:29 68 10/20/19 16:00 71 18 166/71 94 L 10/20/19 15:39 72 10/20/19 15:29 68 10/20/19 12:13 76 10/20/19 12:02 72 10/20/19 12:00 72 19 159/72 90 L 10/20/19 08:40 76 10/20/19 08:28 76 10/20/19 08:00 71 19 161/66 92 L Intake and Output 10/20/19 10/21/19 10/21/19 22:59 06:59 14:59 Intake Total 290 Balance 290 Intake: Intake, IV Titration 50 Amount cefTRIAXone 1 gm In 50 Sodium Chloride 0.9% 50 ml @ 100 mls/hr IVPB Q24H [facility] Rx#:[id number] Oral 240 Other: Voiding Method Toilet Toilet Bedside Commode Bedside Commode # Voids 3 3 Weight 90.5 kg Results 10/19/19 22:42 10/19/19 22:42 Current Medications Generic Name Dose Route Start Last Admin Trade Name Freq PRN Reason Stop Dose Admin Albuterol Sulfate 2.5 mg 10/20/19 13:28 Ventolin Nebulized INHALATION RT-QID PRN Shortness Of Breath Albuterol/Ipratropium 3 ml 10/20/19 08:00 10/21/19 07:38 Duoneb 0.5 Mg-3 Mg/3 Ml Soln INHALATION 3 ml RT-QID TODD Administration Aspirin 81 mg 10/21/19 09:00 Aspirin PO DAILY@0900 [facility] Atorvastatin Calcium 10 mg 10/20/19 18:00 10/20/19 17:47 Lipitor PO 10 mg HS@1800 [facility] Administration Colchicine 0.6 mg 10/20/19 13:45 10/20/19 20:39 Colcrys PO 0.6 mg BID@0900,1800 [facility] Administration Ezetimibe 10 mg 10/20/19 09:00 10/20/19 15:49 Zetia PO 10 mg DAILY@0900 [facility] Administration Enoxaparin Sodium 40 mg 10/20/19 13:45 10/20/19 16:12 Lovenox SQ Not Given DAILY [facility] Folic Acid 1 mg 10/20/19 15:00 10/20/19 15:47 Folic Acid PO 1 mg DAILY@1500 [facility] Administration Furosemide 60 mg 10/20/19 16:00 10/21/19 00:38 Lasix IV 60 mg Q8HR TODD Administration Gabapentin 100 mg 10/20/19 15:00 10/20/19 17:51 Neurontin PO 100 mg TID@0900,1500,1800 TODD Administration Glipizide 10 mg 10/20/19 18:00 10/20/19 17:47 Glucotrol PO 10 mg BID@0900,1800 TOD[facility] Administration Guaifenesin 1,200 mg 10/20/19 13:45 10/20/19 20:57 Mucinex PO 1,200 mg Q12HR [facility]D Administration Ceftriaxone Sodium 1 gm/ 50 mls @ 100 mls/hr 10/20/19 22:00 10/20/19 20:57 Sodium Chloride IVPB 100 mls/hr Q24H TODD Administration Ibuprofen 400 mg 10/20/19 16:11 10/20/19 16:18 Motrin PO 400 mg Q6HR PRN Administration Pain Insulin Aspart 0 unit 10/20/19 17:30 10/21/19 06:27 Novolog SQ Not Given ACHS [facility] Protocol Linagliptin 5 mg 10/20/19 13:28 10/20/19 15:52 Tradjenta PO 5 mg DAILY TODD Administration Metformin HCl 1,000 mg 10/20/19 21:00 10/20/19 20:50 Glucophage PO Not Given BID [facility] Miscellaneous Information 1 each 10/19/19 23:30 Pneumonia Protocol Utilized PO ONCE PRN Per Protocol Multivitamins 1 each 10/20/19 15:00 10/20/19 15:48 Theragran PO 1 each DAILY@1500 [facility] Administration Primidone 100 mg 10/20/19 18:00 10/20/19 17:47 Mysoline PO 100 mg HS@1800 [facility] Administration Primidone 50 mg 10/21/19 09:00 Mysoline PO DAILY@0900 [facility] Intake and Output 10/20/19 10/21/19 10/21/19 22:59 06:59 14:59 Intake Total 290 Balance 290 Intake: Intake, IV Titration 50 Amount cefTRIAXone 1 gm In 50 Sodium Chloride 0.9% 50 ml @ 100 mls/hr IVPB Q24H [facility] Rx#:[id number] Oral 240 Other: Voiding Method Toilet Toilet Bedside Commode Bedside Commode # Voids 3 3 Weight 90.5 kg 10/19/19 22:42 10/19/19 22:42
[2019-10-21] MEDS: MULTIVITAMINS, THERA 1 EACH TAB PO SCH (08:26)
[2019-10-21] MEDS ORDERED: FUROSEMIDE 20 MG TAB PO SCH (09:00)
[2019-10-21] MEDS ORDERED: ASPIRIN 81 MG PO SCH (09:00)
[2019-10-21] MEDS ORDERED: PRIMIDONE 50 MG TAB PO SCH (09:00)
[2019-10-21] MEDS: ENOXAPARIN 40 MG/0.4 ML SYRINGE SQ SCH (09:32)
[2019-10-21 09:51] LABS: Calcium 9.3 mg/dL (8.4-10.2); Potassium 5.4 mmol/L (3.5-5.1)
--- NOTE | 2019-10-21 12:27 | NM ---
EXAMINATION TYPE: NM pul vent and perfuse DATE OF EXAM: 10/21/2019 COMPARISON: Chest x-ray 10/20/2019 HISTORY: Elevated d-dimer, difficulty breathing TECHNIQUE: Utilizing inhalation of 68.2 mCi Tc 99m DTPA aerosol and intravenous injection of 5.3 mCi of Tc 99m MAA, ventilation and perfusion images are acquired post injection in multiple projections. FINDINGS: Near normal radiotracer distribution is noted in the lungs, matching subsegmental posterior left lung base focal defect on ventilation and perfusion imaging. There is no evidence of mismatched defects. IMPRESSION: Low probability for pulmonary embolism. Chest x-ray shows findings suggestive of pulmonary venous hyp ertension and interstitial edema.
[2019-10-21 12:28] VITALS: BP 168/93; PULSE 68; RESP 19
[2019-10-21 12:34] LABS: Glucose,Whole Blood 65 mg/dL (75-99)
[2019-10-21 12:50] LABS: Glucose,Whole Blood 72 mg/dL (75-99)
[2019-10-21] MEDS ORDERED: SODIUM POLYSTYRENE SULFONATE 15 GM/60 ML BOTTLE PO STA (13:41)
[2019-10-21] MEDS: FOLIC ACID 1 MG TAB PO SCH (14:25)
[2019-10-21] MEDS: PRIMIDONE 50 MG TAB PO SCH (14:26)
[2019-10-21] MEDS: ATORVASTATIN 10 MG TAB PO SCH (14:26)
--- NOTE | 2019-10-21 18:26 | P.DS ---
Providers Date of admission: 10/19/19 23:32 Expected date of discharge: 10/21/19 Attending physician: David Jim Consults: 10/20/19 13:38 Consult Physician Routine Consulting Provider: All Burnett Consult Reason/Comments: chf Do you want consulting provider notified?: Yes Primary care physician: [facility] Course: Chief Complaint: Short of breath History of presenting complaint: This is a pleasant 79-year-old patient of Dr. Greg Kline. Chronic stable medical conditions include COPD, diabetes, hyperlipidemia, hypertension, parkinsonism, sleep apnea, coronary artery disease with prior bypass. Normally lives alone and gets uses a walker to get about. Patient presents with progressive swelling of the lower extremity and also shortness of breath. With minimal activity. Slight cough. Appetite is fair. No fever no chills. Some orthopnea. No chest pain. Given IV Lasix to which she felt better. Patient's had some cellulitis lower extremity. Today-swelling of lower extremity much improved. Patient will not need any further antibiotics. The cellulitis was very mild if any. Care was discussed in detail with the patient. Discussed with Dr. Racquel Hutchins. VQ scan was low probably for PE. Discussion and discharge planning more than 35 minutes Consultation: Dr. Racquel Hutchins from cardiology Physical examination: VITAL SIGNS: 97, 68, 17, 164/60, 90% room air GENERAL: Sitting up in a chair, comfortable EYES: Pupils equal. Conjunctiva normal. HEENT: External appearance of nose and ears normal, oral cavity grossly normal. NECK: JVD possibly raised; masses not palpable. HEART: First and second heart sounds are normal; edema much improved LUNGS: Respiratory rate normal, diminished breath sounds ABDOMEN: Soft, nontender, liver spleen not palpable, no masses palpable. PSYCH: Alert and oriented x3; mood and affect normal. DERMATOLOGICAL: Dry skin, with disfigured nails. Redness nearly gone INVESTIGATIONS, reviewed in the clinical context: Potassium 5.4 bun 36 creatinine 1.60 Previous testing White count 6 hemoglobin 10.3 platelets 193 potassium 5.4 bun 37 creatinine 1.46 Lactic acid 3.1 troponin I less than 0.012 proBNP 1860 UA positive for leukoesterase WBC EKG tracing personally reviewed by me-process of the flipped T waves in 1 aVL and V3 to V6 Chest x-ray film personally reviewed by me-cardiomegaly venous prominence 2-D echocardiogram-EF 45-50% moderate to severe tricuspid regurgitation, severe pulmonary hypertension, moderate concentric LVH Previous testing: Bun 26 creatinine 1.36 and January 2010 Assessment: -Acute congestive heart failure exacerbation from combined systolic and diastolic dysfunction EF 45-50%-improved -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 -Moderate severe tricuspid regurgitation -Diabetes mellitus type 2 with diabetic peripheral neuropathy -Obesity BMI 39 -Hyperlipidemia -Essential hypertension -Coronary artery disease with prior history of bypass -Chronic kidney disease stage III from diabetic nephropathy and hypertensive nephrosclerosis -Chronic gait dysfunction does use a walker Disposition: Home Labs: BMP-2 days Patient Condition at Discharge: Stable Plan - Discharge Summary Discharge Rx Participant: No New Discharge Prescriptions: New Ipratropium-Albuterol Nebulize [Duoneb 0.5 mg-3 mg/3 ml Soln] 3 ml INHALATION TID #90 ml Furosemide [Lasix] 40 mg PO DAILY #30 tablet guaiFENesin [Mucinex] 1,200 mg PO Q12HR #14 tablet.er Cephalexin [Keflex] 250 mg PO Q8HR #9 capsule Continue Ezetimibe [Zetia] 10 mg PO DAILY@0900 Lovastatin [Mevacor] 10 mg PO HS@1800 sitaGLIPtin PHOS/metFORMIN HCL [Janumet 50-1,000 mg Tablet] 1 tab PO BID@0900,1800 Primidone [Mysoline] 100 mg PO HS@1800 Colchicine [Colcrys] 0.6 mg PO BID@0900,1800 Aspirin EC [Ecotrin Low Dose] 81 mg PO DAILY@0900 Gabapentin [Neurontin] 100 mg PO TID@0900,1500,1800 glipiZIDE XL [Glucotrol XL] 10 mg PO BID@0900,1800 Primidone [Mysoline] 50 mg PO DAILY@0900 Vitamin B-12(Unknown Dose) 1 tab PO DAILY@1500 Multivitamins, Thera [Multivitamin (formulary)] 1 tab PO DAILY@1500 Albuterol Inhaler [Ventolin Hfa Inhaler] 2 puff INHALATION RT-QID PRN PRN Reason: Shortness Of Breath Folic Acid(Unknown Dose) 1 tab PO DAILY@1500 Discontinued Furosemide [Lasix] 20 mg PO DAILY@0900 Discharge Medication List Ezetimibe [Zetia] 10 mg PO DAILY@0900 08/12/14 [History] Lovastatin [Mevacor] 10 mg PO HS@1800 11/20/13 [History] sitaGLIPtin PHOS/metFORMIN HCL [Janumet 50-1,000 mg Tablet] 1 tab PO BID@0900,1800 08/20/16 [History] Aspirin EC [Ecotrin Low Dose] 81 mg PO DAILY@0900 01/25/19 [History] Colchicine [Colcrys] 0.6 mg PO BID@0900,1800 01/25/19 [History] Gabapentin [Neurontin] 100 mg PO TID@0900,1500,1800 01/25/19 [History] Primidone [Mysoline] 50 mg PO DAILY@0900 01/25/19 [History] Primidone [Mysoline] 100 mg PO HS@1800 01/25/19 [History] glipiZIDE XL [Glucotrol XL] 10 mg PO BID@0900,1800 01/25/19 [History] Albuterol Inhaler [Ventolin Hfa Inhaler] 2 puff INHALATION RT-QID PRN 10/19/19 [History] Folic Acid(Unknown Dose) 1 tab PO DAILY@1500 10/19/19 [History] Multivitamins, Thera [Multivitamin (formulary)] 1 tab PO DAILY@1500 10/19/19 [History] Vitamin B-12(Unknown Dose) 1 tab PO DAILY@1500 10/19/19 [History] Cephalexin [Keflex] 250 mg PO Q8HR #9 capsule 10/21/19 [Rx] Furosemide [Lasix] 40 mg PO DAILY #30 tablet 10/21/19 [Rx] Ipratropium-Albuterol Nebulize [Duoneb 0.5 mg-3 mg/3 ml Soln] 3 ml INHALATION TID #90 ml 10/21/19 [Rx] guaiFENesin [Mucinex] 1,200 mg PO Q12HR #14 tablet.er 10/21/19 [Rx] Follow up Appointment(s)/Referral(s): [facility] [NON-STAFF] - As Needed (nebulizer) Greg Kline MD [Primary Care Provider] - 1-2 days (Offices are closed please call to make a follow up appointment. ) Preston Hutchins MD [STAFF PHYSICIAN] - 1 Week (Offices are closed please call to make a follow up appointment. Pt state appt Nov 18 and that she wises to keep that one and not make a new one.) Patient Instructions/Handouts: Heart Failure (DC), Cellulitis (DC) Activity/Diet/Wound Care/Special Instructions: BMP - 2 DAYS Discharge Disposition: HOME SELF-CARE
== END 2019-10-21 14:29 | disposition home or self-care (01) | DRG 291 ==
LOC: EC 22:23 → 3SCARD 23:32 → OBSVTOIN 10-21 12:06 → UNDODISOB 10-21 14:29
PROVIDERS: ADMIT Hospitalist; ATTEND Hospitalist
DX: I13.0 Hypertensive heart and chronic kidney disease with heart failure and stage 1 through stage 4 chronic kidney disease, or unspecified chronic kidney disease (principal); I50.43 Acute on chronic combined systolic (congestive) and diastolic (congestive) heart failure; L03.115 Cellulitis of right lower limb; L03.116 Cellulitis of left lower limb; E87.2 Acidosis; E11.22 Type 2 diabetes mellitus with diabetic chronic kidney disease; E11.42 Type 2 diabetes mellitus with diabetic polyneuropathy; E11.51 Type 2 diabetes mellitus with diabetic peripheral angiopathy without gangrene; E66.9 Obesity, unspecified; E78.5 Hyperlipidemia, unspecified; G20 Parkinson's disease; G47.30 Sleep apnea, unspecified; Z99.89 Dependence on other enabling machines and devices; I08.1 Rheumatic disorders of both mitral and tricuspid valves; Z11.59 Encounter for screening for other viral diseases; I25.10 Atherosclerotic heart disease of native coronary artery without angina pectoris; I25.2 Old myocardial infarction; I27.29 Other secondary pulmonary hypertension; J44.9 Chronic obstructive pulmonary disease, unspecified; N18.3 Chronic kidney disease, stage 3 (moderate); Q80.9 Congenital ichthyosis, unspecified; R13.10 Dysphagia, unspecified; Z68.39 Body mass index [BMI] 39.0-39.9, adult; Z79.82 Long term (current) use of aspirin; Z79.84 Long term (current) use of oral hypoglycemic drugs; Z79.899 Other long term (current) drug therapy; Z80.0 Family history of malignant neoplasm of digestive organs; Z80.1 Family history of malignant neoplasm of trachea, bronchus and lung; Z80.3 Family history of malignant neoplasm of breast; Z82.49 Family history of ischemic heart disease and other diseases of the circulatory system; Z82.5 Family history of asthma and other chronic lower respiratory diseases; Z87.891 Personal history of nicotine dependence; Z90.710 Acquired absence of both cervix and uterus; Z95.1 Presence of aortocoronary bypass graft; Z90.49 Acquired absence of other specified parts of digestive tract; Z60.2 Problems related to living alone; Z88.4 Allergy status to anesthetic agent; Z88.8 Allergy status to other drugs, medicaments and biological substances; R26.9 Unspecified abnormalities of gait and mobility
CPT/HCPCS: 36415; 71046; 78582; 80048; 80053; 81001; 82550; 83605; 83735; 83880; 84100; 84484; 85025; 85379; 85610; 85730; 87040; 87086; 93005; 93306; 94640; 96374; 99285

== ENCOUNTER → 2019-12-21 | Outpatient (CLI) | payer MEDICARE, OTHER ==
[2019-12-21 14:42] LABS: Anisocytosis Slight; HCT 31.6 % (34.0-46.0); HGB 9.8 gm/dL (11.4-16.0); Hypochromasia Marked; MCH 32.7 pg (25.0-35.0); MCHC 30.9 g/dL (31.0-37.0); Macrocytosis Moderate; Mean Platelet Volume 7.6; Platelet Count 179 k/uL (150-450); RBC 2.98 m/uL (3.80-5.40); RDW 16.4 % (11.5-15.5); WBC 5.6 k/uL (3.8-10.6)
[2019-12-21 14:59] LABS: Magnesium 2.1 mg/dL (1.6-2.3)
== END | disposition home or self-care (01) ==
LOC: LABPAT 13:13
PROVIDERS: ATTEND Internal Medicine Interventional Cardiology
DX: Z01.818 Encounter for other preprocedural examination (principal); I70.213 Atherosclerosis of native arteries of extremities with intermittent claudication, bilateral legs
CPT/HCPCS: 36415; 82565; 83735; 84520; 85027

== ENCOUNTER 2020-01-23 06:17 | Inpatient (IN) | payer MEDICARE, OTHER ==
[2020-01-23] MEDS ORDERED: SODIUM CHLORIDE 0.9% 1,000 ML IV STA (06:23)
--- NOTE | 2020-01-23 06:23 | ED ---
Recheck HPI - General Stated Complaint: Abnormal labs Time Seen by Provider: 01/23/20 06:19 Source: RN notes reviewed, old records reviewed Mode of arrival: EMS Limitations: no limitations - History of Present Illness Initial Comments: This is an 79-year-old female DF for evaluation patient is brought in today for evaluation of possible abnormal outpatient lab values. Patient apparently had elevated potassium was called by her family doctor Dr. Nelson to come the ER for reevaluation of vitals elevated labs. Patient is no significant injuries or complaints. No recent nausea vomiting diarrhea. No recent change in medications MD Complaint: abnormal lab (Elevated [place]) -: unknown Returns Today for: Called Because of Abnormal Lab/Test Symptoms Since Prior Visit: no new symptoms Context: called for abnormal lab result Associated Symptoms: none - Related Data Home Medications Medication Instructions Recorded Confirmed Ezetimibe [Zetia] 10 mg PO 1800 11/20/13 01/02/20 Lovastatin [Mevacor] 10 mg PO 1800 11/20/13 01/02/20 sitaGLIPtin PHOS/metFORMIN HCL 1 tab PO BID 08/20/16 01/02/20 [Janumet 50-1,000 mg Tablet] Aspirin EC [Ecotrin Low Dose] 81 mg PO DAILY@0900 01/25/19 01/02/20 Colchicine [Colcrys] 0.6 mg PO BID@0900,1800 01/25/19 01/02/20 Gabapentin [Neurontin] 100 mg PO TID 01/25/19 01/02/20 Primidone [Mysoline] 50 mg PO DAILY@0900 01/25/19 01/02/20 Primidone [Mysoline] 100 mg PO 1800 01/25/19 01/02/20 glipiZIDE XL [Glucotrol XL] 5 mg PO QAM 01/25/19 01/02/20 Albuterol Inhaler [Ventolin Hfa 2 puff INHALATION RT-QID PRN 10/19/19 01/02/20 Inhaler] Folic Acid(Unknown Dose) 1 tab PO DAILY@1500 10/19/19 01/02/20 Vitamin B-12(Unknown Dose) 1 tab PO DAILY@1500 10/19/19 01/02/20 Furosemide [Lasix] 40 mg PO 0900 12/24/19 01/02/20 glipiZIDE [Glucotrol] 10 mg PO 1800 12/24/19 01/02/20 Naproxen Sodium [Aleve] 220 mg PO BID PRN 12/31/19 01/02/20 Allergies Allergy/AdvReac Type Severity Reaction Status Date / Time albuterol [From DuoNeb] Allergy Nausea Verified 01/23/20 06:25 hydrocodone Allergy Nausea Verified 01/23/20 06:25 ipratropium [From DuoNeb] Allergy Nausea Verified 01/23/20 06:25 cortisone AdvReac PAIN Verified 01/23/20 06:25 procaine HCl [From Novocain] AdvReac pain Verified 01/23/20 06:25 allergy medicines AdvReac "dries me Uncoded 01/23/20 06:25 out, bloody noses,generalized pain" Review of Systems ROS Statement: Those systems with pertinent positive or pertinent negative responses have been documented in the HPI. ROS Other: All systems not noted in ROS Statement are negative. Past Medical History Past Medical History: COPD, Diabetes Mellitus, Hyperlipidemia, Hypertension, Myocardial Infarction ([place]), Sleep Apnea/CPAP/BIPAP Additional Past Medical History / Comment(s): tremors,NO left arm blood draw or blood pressure(vessel harvested for CABG), blockages in angelica legs, "water on my lung a couple months ago", "hard to have a bowel movement", gout, frequent urination, this procedure was rescheduled-pt couldn't tell why Last Myocardial Infarction Date:: 1999 History of Any Multi-Drug Resistant Organisms: None Reported Past Surgical History: Appendectomy, Coronary Bypass/CABG, Heart Catheterization, Hysterectomy Past Anesthesia/Blood Transfusion Reactions: No Reported Reaction Past Psychological History: No Psychological Hx Reported Past Alcohol Use History: None Reported Past Drug Use History: None Reported - Past Family History Mother Family Medical History: COPD, Myocardial Infarction ([place]) Brother(s) Family Medical History: Cancer Additional Family Medical History / Comment(s): LUNG CANCER Son(s) Family Medical History: Cancer Additional Family Medical History / Comment(s): COLON CANCER Sister(s) Family Medical History: Cancer Additional Family Medical History / Comment(s): (2) SISTERS HAD BREAST CANCER. General Exam General appearance: alert, in no apparent distress Head exam: Present: atraumatic, normocephalic, normal inspection Eye exam: Present: normal appearance, PERRL, EOMI. Absent: scleral icterus, conjunctival injection, periorbital swelling ENT exam: Present: normal exam, mucous membranes moist Neck exam: Present: normal inspection. Absent: tenderness, meningismus, lymphadenopathy Respiratory exam: Present: normal lung sounds bilaterally. Absent: respiratory distress, wheezes, rales, rhonchi, stridor Cardiovascular Exam: Present: normal rhythm, tachycardia, normal heart sounds. Absent: systolic murmur, diastolic murmur, rubs, gallop, clicks GI/Abdominal exam: Present: soft, normal bowel sounds. Absent: distended, tenderness, guarding, rebound, rigid Extremities exam: Present: normal inspection, full ROM, normal capillary refill. Absent: tenderness, pedal edema, joint swelling, calf tenderness Back exam: Present: normal inspection Neurological exam: Present: alert, oriented X3, CN II-XII intact Psychiatric exam: Present: normal affect, normal mood Skin exam: Present: warm, dry, intact, normal color. Absent: rash Course Vital Signs 01/23/20 01/23/20 06:20 06:40 Temperature 98.2 F Pulse Rate 114 H Pulse Rate [ 112 H Air Bag Builder ] Respiratory 18 Rate Blood Pressure 162/100 O2 Sat by Pulse 95 Oximetry - Reevaluation(s) Reevaluation #1: 01/23/20 06:25 Medical records reviewed Reevaluation #2: 01/23/20 07:00 Patient informed of results, questions answered - Consultations Consultation #1: Spoke with sound who agrees to admit Medical Decision Making - Medical Decision Making 79 female to the ED for abn outpatient lab testing, HyperK, patient is dehydrated and tachycardia, EDWIN, will admit for hydration and treatment for HyperK - Lab Data Result diagrams: 01/23/20 06:32 01/23/20 06:32 Lab Results 01/23/20 01/23/20 Range/Units 06:32 06:32 WBC 5.0 (3.8-10.6) k/uL RBC 3.16 L (3.80-5.40) m/uL Hgb 10.6 L (11.4-16.0) gm/dL Hct 33.2 L (34.0-46.0) % MCV 105.2 H (80.0-100.0) fL MCH 33.6 (25.0-35.0) pg MCHC 32.0 (31.0-37.0) g/dL RDW 14.9 (11.5-15.5) % Plt Count 195 (150-450) k/uL Neutrophils % 54 % Lymphocytes % 28 % Monocytes % 8 % Eosinophils % 8 % Basophils % 1 % Neutrophils # 2.7 (1.3-7.7) k/uL Lymphocytes # 1.4 (1.0-4.8) k/uL Monocytes # 0.4 (0-1.0) k/uL Eosinophils # 0.4 (0-0.7) k/uL Basophils # 0.0 (0-0.2) k/uL Hypochromasia Moderate Macrocytosis Moderate Sodium 135 L (137-145) mmol/L Potassium 5.9 H (3.5-5.1) mmol/L Chloride 98 (98-107) mmol/L Carbon Dioxide 28 (22-30) mmol/L Anion Gap 9 mmol/L BUN 46 H (7-17) mg/dL Creatinine 1.70 H (0.52-1.04) mg/dL Est GFR (CKD-EPI)AfAm 33 (>60 ml/min/1.73 sqM) Est GFR (CKD-EPI)NonAf 28 (>60 ml/min/1.73 sqM) Glucose 93 (74-99) mg/dL Calcium 8.0 L (8.4-10.2) mg/dL Phosphorus 6.0 H (2.5-4.5) mg/dL Magnesium 2.2 (1.6-2.3) mg/dL - EKG Data -: EKG Interpreted by Me (EKG is sinus tachycardia of 114 WA 128 QRS 84 QTc 449) Disposition Clinical Impression: Hyperkalemia, Dehydration, Renal insufficiency Disposition: ADMITTED IP TO [facility] Condition: Serious Is patient prescribed a controlled substance at d/c from ED?: No Referrals: Greg Kline MD [Primary Care Provider] - 1-2 days
[2020-01-23 06:42] LABS: Basophils % (A) 1 %; Eosinophils # (A) 0.4 k/uL (0-0.7); Eosinophils % (A) 8 %; HCT 33.2 % (34.0-46.0); HGB 10.6 gm/dL (11.4-16.0); Hypochromasia Moderate; Lymphocytes # (A) 1.4 k/uL (1.0-4.8); Lymphocytes % (A) 28 %; MCH 33.6 pg (25.0-35.0); MCV 105.2 fL (80.0-100.0); Macrocytosis Moderate; Monocytes # (A) 0.4 k/uL (0-1.0); Monocytes % (A) 8 %; Neutrophils # (A) 2.7 k/uL (1.3-7.7); Neutrophils % (A) 54 %; Platelet Count 195 k/uL (150-450); RBC 3.16 m/uL (3.80-5.40); RDW 14.9 % (11.5-15.5)
[2020-01-23 06:51] LABS: Magnesium 2.2 mg/dL (1.6-2.3); Potassium 5.9 mmol/L (3.5-5.1)
[2020-01-23] MEDS ORDERED: SODIUM CHLORIDE 0.9% 1,000 ML IV ONE (06:57)
[2020-01-23] MEDS ORDERED: SODIUM POLYSTYRENE SULFONATE 15 GM/60 ML BOTTLE PO STA (07:18)
[2020-01-23] MEDS ORDERED: INSULIN REGULAR 100 UNIT/ML VIAL IV ONE (07:18)
[2020-01-23] MEDS ORDERED: DEXTROSE 50% SYRINGE 50 ML IVP STA (07:18)
--- NOTE | 2020-01-23 08:19 | XR ---
EXAMINATION TYPE: XR chest 2V DATE OF EXAM: 01/23/2020 CLINICAL HISTORY: Difficulty breathing. TECHNIQUE: Frontal and lateral views of the chest are obtained. COMPARISON: 10/20/2019 chest radiograph FINDINGS: Sternotomy wires. Unchanged cardiomegaly and mild central pulmonary vascular prominence. M ediastinal silhouette normal. There is no focal air space opacity, pleural effusion, or pneumothorax seen. The osseous structures are intact. IMPRESSION: Unchanged radiographic appearance of the chest versus 10/20/2019. No acute cardiopulmonar y process.
[2020-01-23 09:59] LABS: Glucose,Whole Blood 86 mg/dL (75-99)
[2020-01-23] MEDS ORDERED: ALBUTEROL NEBULIZED 2.5 MG/3 ML INHALATION PRN (10:18)
[2020-01-23] MEDS ORDERED: DENOSUMAB 60 MG/ML 1 ML SYRINGE SQ SCH (10:30)
[2020-01-23] MEDS: METOPROLOL SUCCINATE (ER) 25 MG TAB.ER.24H PO SCH (11:24)
[2020-01-23] MEDS: allopurinoL 300 MG TAB PO SCH (11:24)
[2020-01-23 12:42] LABS: Calcium 8.1 mg/dL (8.4-10.2); Potassium 5.3 mmol/L (3.5-5.1)
[2020-01-23] MEDS ORDERED: ONDANSETRON 4 MG/2 ML VIAL IVP PRN (14:49)
[2020-01-23] MEDS ORDERED: NALOXONE 0.4 MG/ML 1 ML VIAL IV PRN (14:49)
[2020-01-23] MEDS ORDERED: ACETAMINOPHEN TAB 325 MG TAB PO PRN (14:49)
--- NOTE | 2020-01-23 14:53 | P.HPIM ---
History of Present Illness H&P Date: 01/23/20 Chief Complaint: high potassium level Patient is an 79 yo CM with a hx of HTN, HLD, DM, and COPD who presented to the emergency department at the direction of her [facility] physician due to high potassium on pre-op blood work. On arrival to the emergency department she und erwent an extensive evaluation. Her initial vital signs were within normal limits. Initial laboratory analysis showed potassium of 5.9, sodium 135, BP 146, creatinine 1.7, hemoglobin 10.6. The ER she was started on IV fluids given a dose of Kayexalate. He was placed in observation for monitoring of her hyperkalemia. Nephrology was consulted. Patient seen and examined at bedside. She went to see Dr. Nelson for preop evaluation and had blood work completed. She is supposed to undergo angiogram with stenting of critical peripheral arterial disease in her bilateral lower extremities with Dr. Burnett on 02/05. She denies any recent cough, cold, fever, flu, nausea, vomiting, diarrhea, or dysuria. She states she is chronically short of breath. It is worse with exertion and better with rest. She also has a hard time laying flat since her open heart surgery due to her shortness of breath. She does state that her shortness of breath has been getting progressively worse over the last 1-2 weeks. She has had difficulty swallowing for the past year. She is supposed to be having an EGD completed with Dr. Wilson. She reports that she feels as though something gets stuck in her lower neck. She is also having intermittent right arm numbness that goes away if she lifts her arm or squeezes her hands. She does have chronic neck pain and some arthritis. She has claudication which is currently being worked up with Dr. Burnett and plans for surgery. She reports that she has never had issues with her kidneys in the past. She currently takes metformin for her diabetes. She has no other complaints currently. Review of Systems Pertinent positives and negatives as discussed in HPI, a complete review of systems was performed and all other systems are negative. Past Medical History Past Medical History: COPD, Diabetes Mellitus, Hyperlipidemia, Hypertension, Myocardial Infarction ([place]), Sleep Apnea/CPAP/BIPAP Additional Past Medical History / Comment(s): tremors,NO left arm blood draw or blood pressure(vessel harvested for CABG), blockages in angelica legs, Coonstipation, gout, PAD Last Myocardial Infarction Date:: 1999 History of Any Multi-Drug Resistant Organisms: None Reported Past Surgical History: Appendectomy, Coronary Bypass/CABG, Heart Catheterization, Hysterectomy, Tonsillectomy Additional Past Surgical History / Comment(s): angiogram. Right neck lymphnode removal Past Anesthesia/Blood Transfusion Reactions: No Reported Reaction Past Psychological History: No Psychological Hx Reported Smoking Status: Former smoker Past Alcohol Use History: None Reported Past Drug Use History: None Reported Additional History: Walker. Person to help with cleaning and laundry. [facility] - Past Family History Mother Family Medical History: COPD, Myocardial Infarction ([place]) Brother(s) Family Medical History: Cancer Additional Family Medical History / Comment(s): LUNG CANCER Son(s) Family Medical History: Cancer Additional Family Medical History / Comment(s): COLON CANCER Sister(s) Family Medical History: Cancer Additional Family Medical History / Comment(s): (2) SISTERS HAD BREAST CANCER. Medications and Allergies Home Medications Medication Instructions Recorded Confirmed Type Ezetimibe [Zetia] 10 mg PO DAILY@1800 11/20/13 01/23/20 History Lovastatin [Mevacor] 10 mg PO DAILY@1800 11/20/13 01/23/20 History sitaGLIPtin PHOS/metFORMIN HCL 1 tab PO BID 08/20/16 01/23/20 History [Janumet 50-1,000 mg Tablet] Aspirin EC [Ecotrin Low Dose] 81 mg PO DAILY@0900 01/25/19 01/23/20 History Colchicine [Colcrys] 0.6 mg PO BID@0900,1800 01/25/19 01/23/20 History Gabapentin [Neurontin] 100 mg PO TID 01/25/19 01/23/20 History Primidone [Mysoline] 50 mg PO DAILY@0900 01/25/19 01/23/20 History Primidone [Mysoline] 100 mg PO DAILY@1800 01/25/19 01/23/20 History glipiZIDE XL [Glucotrol XL] 5 mg PO QAM 01/25/19 01/23/20 History Albuterol Inhaler [Ventolin Hfa 2 puff INHALATION RT-QID PRN 10/19/19 01/23/20 History Inhaler] Folic Acid(Unknown Dose) 1 tab PO DAILY@1500 10/19/19 01/23/20 History Vitamin B-12(Unknown Dose) 1 tab PO DAILY@1500 10/19/19 01/23/20 History Furosemide [Lasix] 40 mg PO DAILY@0900 12/24/19 01/23/20 History Naproxen Sodium [Aleve] 220 mg PO BID PRN 12/31/19 01/23/20 History Denosumab [Prolia] 60 mg SQ Q180D 01/23/20 01/23/20 History Metoprolol Succinate (ER) [Toprol 25 mg PO DAILY 01/23/20 01/23/20 History Xl] glipiZIDE XL [Glucotrol Xl] 10 mg PO DAILY@1800 01/23/20 01/23/20 History Allergies Allergy/AdvReac Type Severity Reaction Status Date / Time albuterol [From DuoNeb] AdvReac Nausea Verified 01/23/20 09:21 cortisone AdvReac PAIN Verified 01/23/20 09:21 hydrocodone AdvReac Nausea Verified 01/23/20 09:21 ipratropium [From DuoNeb] AdvReac Nausea Verified 01/23/20 09:21 procaine HCl [From Novocain] AdvReac pain Verified 01/23/20 09:21 allergy medicines AdvReac "dries me Uncoded 01/23/20 06:25 out, bloody noses,generalized pain" Physical Exam Osteopathic Statement: *. No significant issues noted on an osteopathic structural exam other than those noted in the History and Physical/Consult. Vitals: Vital Signs Temp Pulse Pulse Resp BP BP Pulse Ox 01/23/20 09:05 98.2 F 112 H 18 151/84 98 01/23/20 09:00 97.6 F 118 H 14 143/86 95 01/23/20 08:06 109 H 18 144/84 100 01/23/20 07:31 97.6 F 118 H 16 143/86 95 01/23/20 07:20 91 L 01/23/20 07:15 98.2 F 113 H 18 146/90 97 01/23/20 06:40 112 H 01/23/20 06:20 98.2 F 114 H 18 162/100 95 Intake and Output 01/22/20 01/23/2020 22:59 06:59 14:59 Other: Voiding Method Toilet Weight 89.811 kg 89.811 kg General: non toxic, no distress, appears older than stated age, thinning hair Derm: dusky appearance bilateral lower extremities Head: atraumatic, normocephalic, symmetric Eyes: EOMI, no lid lag, anicteric sclera, pupils equal round reactive to light ENT: Nose and ears atraumatic, no thrush, no pharyngeal erythema Neck: No thyromegaly, no cervical lymphadenopathy, trachea midline, supple Mouth: no lip lesion, mucus membranes moist Cardiovascular: S1S2 reg, no murmur, positive posterior tibial pulse bilateral, 1+ pitting edema, capillary refill less than 2 seconds Lungs: Decreased bs bilateral, no ronchi, no rales, no wheeze, no accessory muscle use Abdominal: soft, nontender to palpation, no guarding, no appreciable organomegaly, normal bowel sounds Ext: no gross muscle atrophy, muscle strength muscle strength 4 out of 5 in 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, no contractures Neuro: CN II-XI grossly intact, light touch intact 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, finger to nose within normal limits, Psych: Alert, oriented, appropriate affect Results CBC & Chem 7: 01/23/20 06:32 01/23/20 11:23 Labs: Abnormal Lab Results - Last 24 Hours (Table) 01/23/20 01/23/20 Range/Units 06:32 06:32 RBC 3.16 L (3.80-5.40) m/uL Hgb 10.6 L (11.4-16.0) gm/dL Hct 33.2 L (34.0-46.0) % MCV 105.2 H (80.0-100.0) fL Sodium 135 L (137-145) mmol/L Potassium 5.9 H (3.5-5.1) mmol/L BUN 46 H (7-17) mg/dL Creatinine 1.70 H (0.52-1.04) mg/dL Calcium 8.0 L (8.4-10.2) mg/dL Phosphorus 6.0 H (2.5-4.5) mg/dL Thrombosis Risk Factor Assmnt - DVT/VTE Prophylaxis DVT/VTE Prophylaxis: Pharmacologic Prophylaxis ordered - Choose All That Apply Each Risk Factor Represents 3 Points: Age 75 years or older Thrombosis Risk Factor Assessment Total Risk Factor Score: 3 Thrombosis Risk Factor Assessment Level: Moderate Risk Assessment and Plan Assessment: EDWIN with hyperkalemia on CKD satge III/IV with baseline Cr 1.5 - Hold aleve, cholicine, metofrmin, an lasix - check check BMP at noon and in AM - hold off on IVF at this time - Consult nephro Anemia, chronic - at baseline - follow CBC Gout - stop cholocine, start allopurinol Hyperphosphatemia -Suspect secondary to underlying renal disease Diabetes mellitus type 2 -Continue with Januvia, stop metformin -Hold Glucotrol -Sliding-scale insulin -Follow blood sugars Severe peripheral arterial disease -Plan for intervention with Dr. Burnett on 02/05 Dysphagia with right arm numbness and tingling -Outpatient evaluation with Dr. Kline. Chronic conditions: Hypertension Dyslipidemia Obstructive sleep apnea The patient is placed in observation with an anticipated less than 2 midnight stay for evaluation of hyperkalemia . Surrogate decision-maker: sister in law DVT prophylaxis: SCDs Discussed with: patient, nursing Anticipated discharge date: in AM Anticipated discharge place: home A total of 65 minutes was spent on the care of this complex patient more than 50% of the time was spent in counseling and care coordination.
[2020-01-23] MEDS: LINAGLIPTIN 5 MG TABLET PO SCH (15:44)
[2020-01-23] MEDS: GABAPENTIN 100 MG CAP PO SCH ×2 (15:44→21:50)
[2020-01-23 16:35] LABS: Glucose,Whole Blood 176 mg/dL (75-99)
[2020-01-23] MEDS: PRIMIDONE 50 MG TAB PO SCH (17:11)
[2020-01-23] MEDS: ATORVASTATIN 10 MG TAB PO SCH (17:11)
[2020-01-23] MEDS: EZETIMIBE 10 MG TAB PO SCH (17:11)
[2020-01-23] MEDS: INSULIN ASPART (NovoLOG) 100 UNIT/ML VIAL SQ SCH ×2 (17:12→21:50)
[2020-01-23 21:22] LABS: Glucose,Whole Blood 184 mg/dL (75-99)
[2020-01-23] MEDS ORDERED: METOPROLOL SUCCINATE (ER) 25 MG TAB.ER.24H PO STA (21:37)
[2020-01-24 06:00] LABS: Glucose,Whole Blood 153 mg/dL (75-99)
[2020-01-24] MEDS: INSULIN ASPART (NovoLOG) 100 UNIT/ML VIAL SQ SCH ×4 (07:35→20:40)
[2020-01-24] MEDS: allopurinoL 300 MG TAB PO SCH (08:32)
[2020-01-24] MEDS: GABAPENTIN 100 MG CAP PO SCH ×3 (08:32→20:40)
[2020-01-24] MEDS: ASPIRIN 81 MG PO SCH (08:32)
[2020-01-24] MEDS: LINAGLIPTIN 5 MG TABLET PO SCH (08:32)
[2020-01-24] MEDS: PRIMIDONE 50 MG TAB PO SCH ×2 (08:33→17:32)
[2020-01-24] MEDS: METOPROLOL SUCCINATE (ER) 25 MG TAB.ER.24H PO SCH (08:33)
[2020-01-24 11:36] LABS: Glucose,Whole Blood 159 mg/dL (75-99)
--- NOTE | 2020-01-24 12:01 | CONS ---
CONSULTATION REASON FOR CONSULT: Renal failure, hyperkalemia. HISTORY OF PRESENT ILLNESS: Patient is an 79-year-old female who was admitted to the hospital with high potassium levels from outpatient labs. Patient denies any prior history of kidney disease. She had a potassium of 5.9, creatinine 1.7. Patient did admit to increased intake of potassium containing foods. She also does give a history of taking NSAIDs for neck pains and joint pains. No obvious GI bleed noted. Patient was given a dose of Kayexalate. At home she is not on any MARISABEL inhibitors or angiotensin receptor blockers, but takes the Naprosyn. Blood sugars have been slightly on the high side. Not above 200. Patient has been voiding. She did get IV fluids initially. Currently she is off IV fluids. Chest x-ray did not show any significant CHF. PAST MEDICAL HISTORY: Hypertension, diabetes, COPD, hyperlipidemia, history of [place], obstructive sleep apnea. PAST SURGICAL HISTORY: Appendectomy, coronary artery bypass surgery, cardiac catheterization, hysterectomy, tonsillectomy, previous angiogram. SOCIAL HISTORY: Negative for current smoking, patient is a former smoker. No history of drug abuse or alcohol abuse. MEDICATIONS: Prior to admission: Zetia, Mevacor, aspirin, Colcrys, Neurontin, Glucotrol, Lasix, Aleve, Prolia, metoprolol, Glucotrol. ALLERGIES: Include ALBUTEROL, CORTISONE, HYDROCODONE, NOVOCAIN and ANTIHISTAMINIC. REVIEW OF SYSTEMS: As per HPI. Other systems negative. PHYSICAL EXAMINATION: Patient is comfortable, awake, not in any acute distress. Blood pressure is 138/68, heart rate 120 per minute, she is afebrile. Examination of the heart S1, S2. Examination of the lungs, bilateral breath sounds are heard. Abdomen is soft, nontender. Examination of the lower extremities shows no significant edema. 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 LABS: Show sodium 139, potassium 5.3, chloride 102, CO2 is 25, BUN 44, creatinine 1.7, calcium 8.1 g/dL. Chest x-ray does not show any significant findings. UA is not done. ASSESSMENT: 1. Chronic kidney disease, NKF stage III, with previous creatinine 1.4-1.6 in October of 2019. Etiology is likely nephrosclerosis. We will check a urine urinalysis. 2. Possible acute kidney injury related to NSAIDs. 3. Hyperkalemia associated with acute kidney injury use of NSAIDs, currently improved. Patient did get Kayexalate. She also admitted to increased intake of potassium foods which she is asked to restrict now. I will also maintain her on low-dose loop diuretics which will help with the hyperkalemia. 4. Hypertension. 5. COPD, currently stable. 6. Type 2 diabetes. PLAN: Resume Lasix. Check postvoid residual, rule out urine retention. Check urinalysis. I would avoid use of NSAIDs, Naprosyn, including Naprosyn, which is an NSAID and the patient needs to follow up as outpatient for CKD in about 1-2 weeks post discharge. Thank you for this consultation. Will continue to follow the patient with you during her hospitalization. LEE ANNL / MARTHAN: [id number] /
[2020-01-24] MEDS: FUROSEMIDE 40 MG TAB PO SCH (12:04)
[2020-01-24 12:17] LABS: Calcium 7.3 mg/dL (8.4-10.2); Potassium 5.1 mmol/L (3.5-5.1)
[2020-01-24 15:05] LABS: Appearance,Urine Clear (Clear); Bilirubin,Urine Negative (Negative); Blood,Urine Negative (Negative); Color,Urine Light Yellow; Glucose,Urine (UA) Negative (Negative); Ketones,Urine Negative (Negative); Leukocyte Esterase,Urine Small (Negative); Nitrite,Urine Negative (Negative); Protein,Urine Negative (Negative); RBC,Urine 1 /hpf (0-5); Specific Gravity,Urine 1.007 (1.001-1.035); Urobilinogen,Urine <2.0 mg/dL (<2.0); WBC,Urine 4 /hpf (0-5)
--- NOTE | 2020-01-24 15:40 | P.CRDCN ---
History of Present Illness Consult date: 01/24/20 Reason for Consult (text): Atrial flutter Chief complaint: Elevated potassium History of present illness: 'meron is a pleasant 79-year-old female who follows with Dr. Mcmullen in the office. She has a history of hypertension, hyperlipidemia, diabetes, COPD, coronary artery disease with prior bypass surgery, peripheral arterial disease, who on December 12 third underwent a peripheral angiogram by Dr. Burnett which revealed mildly aneurysmal distal abdominal aorta with possible eccentric lesion, intermediate to severe disease involving the left common iliac artery, occluded right SFA and severe disease involving the left SFA, three-vessel runoff below the knee bilaterally. Patient is scheduled as an outpatient to undergo a PTCA of the right and left SFA by Dr. Mcmullen. She came to the hospital on this admission, under direction of her primary care doctor because of abnormal electrolytes. Her potassium was 5.9. Initial sodium was 135, creatinine 1.7, hemoglobin 10.6. Chest x-ray on presentation here was unchanged as compared with the one performed in October. No acute process. Her EKG, which was performed yesterday. EKG performed yesterday showed atrial flutter with 2 to one conduction[address] N[address]-T wave changes. Blood pressure 138/60, heart rate 120, temperature 98.7, she's 94% on room air. White blood cell count 5.0, hemoglobin 10.6, platelet count 195. Sodium today 134, potassium 5.1, BUN 37, creatinine 1.3. A repeat EKG was performed today which revealed an atypical atrial flutter. According to the patient, she has not been told in the past to have an irregular heart rhythm. There is nothing documented in the office chart of any irregular heart rhythm in the past. Most recent EKG from here was done in October that shows a normal sinus rhythm. I did have a discussion with the patient today regarding the importance of anticoagulation for stroke prevention. Past Medical History Past Medical History: COPD, Diabetes Mellitus, Hyperlipidemia, Hypertension, Myocardial Infarction ([place]), Sleep Apnea/CPAP/BIPAP Additional Past Medical History / Comment(s): tremors,NO left arm blood draw or blood pressure(vessel harvested for CABG), blockages in angelica legs, Coonstipation, gout, PAD Last Myocardial Infarction Date:: 1999 History of Any Multi-Drug Resistant Organisms: None Reported Past Surgical History: Appendectomy, Coronary Bypass/CABG, Heart Catheterization, Hysterectomy, Tonsillectomy Additional Past Surgical History / Comment(s): angiogram. Right neck lymphnode removal Past Anesthesia/Blood Transfusion Reactions: No Reported Reaction Past Psychological History: No Psychological Hx Reported Smoking Status: Former smoker Past Alcohol Use History: None Reported Past Drug Use History: None Reported - Past Family History Mother Family Medical History: COPD, Myocardial Infarction ([place]) Brother(s) Family Medical History: Cancer Additional Family Medical History / Comment(s): LUNG CANCER Son(s) Family Medical History: Cancer Additional Family Medical History / Comment(s): COLON CANCER Sister(s) Family Medical History: Cancer Additional Family Medical History / Comment(s): (2) SISTERS HAD BREAST CANCER. Medications and Allergies Home Medications Medication Instructions Recorded Confirmed Type Ezetimibe [Zetia] 10 mg PO DAILY@1800 11/20/13 01/23/20 History Lovastatin [Mevacor] 10 mg PO DAILY@1800 11/20/13 01/23/20 History sitaGLIPtin PHOS/metFORMIN HCL 1 tab PO BID 08/20/16 01/23/20 History [Janumet 50-1,000 mg Tablet] Aspirin EC [Ecotrin Low Dose] 81 mg PO DAILY@0900 01/25/19 01/23/20 History Colchicine [Colcrys] 0.6 mg PO BID@0900,1800 01/25/19 01/23/20 History Gabapentin [Neurontin] 100 mg PO TID 01/25/19 01/23/20 History Primidone [Mysoline] 50 mg PO DAILY@0900 01/25/19 01/23/20 History Primidone [Mysoline] 100 mg PO DAILY@1800 01/25/19 01/23/20 History glipiZIDE XL [Glucotrol XL] 5 mg PO QAM 01/25/19 01/23/20 History Albuterol Inhaler [Ventolin Hfa 2 puff INHALATION RT-QID PRN 10/19/19 01/23/20 History Inhaler] Folic Acid(Unknown Dose) 1 tab PO DAILY@1500 10/19/19 01/23/20 History Vitamin B-12(Unknown Dose) 1 tab PO DAILY@1500 10/19/19 01/23/20 History Furosemide [Lasix] 40 mg PO DAILY@0900 09/14/20 10/14/20 History Naproxen Sodium [Aleve] 220 mg PO BID PRN 12/31/19 01/23/20 History Denosumab [Prolia] 60 mg SQ Q180D 01/23/20 01/23/20 History Metoprolol Succinate (ER) [Toprol 25 mg PO DAILY 01/23/20 01/23/20 History Xl] glipiZIDE XL [Glucotrol Xl] 10 mg PO DAILY@1800 01/23/20 01/23/20 History Allergies Allergy/AdvReac Type Severity Reaction Status Date / Time albuterol [From DuoNeb] AdvReac Nausea Verified 01/23/20 09:21 cortisone AdvReac PAIN Verified 01/23/20 09:21 hydrocodone AdvReac Nausea Verified 01/23/20 09:21 ipratropium [From DuoNeb] AdvReac Nausea Verified 01/23/20 09:21 procaine HCl [From Novocain] AdvReac pain Verified 01/23/20 09:21 allergy medicines AdvReac "dries me Uncoded 01/23/20 06:25 out, bloody noses,generalized pain" Physical Exam Vitals: Vital Signs Temp Pulse Resp BP Pulse Ox 01/24/20 09:00 98.7 F 124 H 18 138/68 94 L 01/24/20 03:50 97.4 F L 120 H 20 121/65 94 L 01/23/20 19:42 97.9 F 115 H 20 130/81 95 Intake and Output 01/24/20 01/24/20 01/24/20 06:59 14:59 22:59 Intake Total 200 Balance 200 Intake: Other 200 Other: Voiding Method Toilet PHYSICAL EXAMINATION: GENERAL: 79-year-old female in no acute distress at the time of my examination HEENT: Head is atraumatic, normocephalic. Pupils equal, round. Sclera anicteric. Conjunctiva are clear. Mucous membranes of the mouth are moist. Neck is supple. There is no elevated jugular venous pressure. No carotid bruit is heard. HEART EXAMINATION: Heart S1 and S2 irregularly irregular a systolic murmur is heard CHEST EXAMINATION: Lungs reveal decreased air exchange ABDOMEN: Soft, obese, nontender. Bowel sounds are heard. No organomegaly noted. EXTREMITIES:[ doppler to 1+ peripheral pulses, 1+ bilateral edema, chronic discoloration venous stasis. NEUROLOGIC patient is awake, alert and oriented 3 . Results 01/23/20 06:32 01/24/20 11:36 Comprehensive Metabolic Panel 01/24/20 Range/Units 11:36 Sodium 134 L (137-145) mmol/L Potassium 5.1 (3.5-5.1) mmol/L Chloride 98 (98-107) mmol/L Carbon Dioxide 26 (22-30) mmol/L BUN 37 H (7-17) mg/dL Creatinine 1.30 H (0.52-1.04) mg/dL Glucose 144 H (74-99) mg/dL Calcium 7.3 L (8.4-10.2) mg/dL Current Medications Generic Name Dose Route Start Last Admin Trade Name Freq PRN Reason Stop Dose Admin Acetaminophen 650 mg 01/23/20 14:49 Acetaminophen Tab 325 Mg Tab PO Q6HR PRN Mild Pain or Fever > 100.5 Albuterol Sulfate 2.5 mg 01/23/20 10:18 Albuterol Nebulized 2.5 Mg/3 Ml INHALATION RT-QID PRN Shortness Of Breath Allopurinol 300 mg 01/23/20 11:00 01/24/20 08:32 Allopurinol 300 Mg Tab PO 300 mg DAILY TODD Administration Aspirin 81 mg 01/24/20 09:00 01/24/20 08:32 Aspirin 81 Mg PO 81 mg DAILY@0900 TODD Administration Atorvastatin Calcium 10 mg 01/23/20 18:00 01/23/20 17:11 Atorvastatin 10 Mg Tab PO 10 mg DAILY@1800 TODD Administration Ezetimibe 10 mg 01/23/20 18:00 01/23/20 17:11 Ezetimibe 10 Mg Tab PO 10 mg DAILY@1800 TODD Administration Furosemide 40 mg 01/24/20 11:45 01/24/20 12:04 Furosemide 40 Mg Tab PO 40 mg DAILY TODD Administration Gabapentin 100 mg 01/23/20 16:00 01/24/20 08:32 Gabapentin 100 Mg Cap PO 100 mg TID TODD Administration Insulin Aspart 0 unit 01/23/20 17:30 01/24/20 12:03 Insulin Aspart (Novolog) 100 Unit/Ml Vial SQ 1 unit ACHS TODD Administration Protocol Linagliptin 5 mg 01/23/20 15:00 01/24/20 08:32 Linagliptin 5 Mg Tablet PO 5 mg DAILY TODD Administration Metoprolol Succinate 25 mg 01/23/20 10:30 01/24/20 08:33 Metoprolol Succinate (Er) 25 Mg Tab.Er.24h PO 25 mg DAILY TODD Administration Naloxone HCl 0.2 mg 01/23/20 14:49 Naloxone 0.4 Mg/Ml 1 Ml Vial IV Q2M PRN Opioid Reversal Ondansetron HCl 4 mg 01/23/20 14:49 Ondansetron 4 Mg/2 Ml Vial IVP Q8HR PRN Nausea And Vomiting Primidone 50 mg 01/24/20 09:00 01/24/20 08:33 Primidone 50 Mg Tab PO 50 mg DAILY@0900 TODD Administration Primidone 100 mg 01/23/20 18:00 01/23/20 17:11 Primidone 50 Mg Tab PO 100 mg DAILY@1800 TODD Administration Intake and Output 01/24/20 01/24/20 01/24/20 06:59 14:59 22:59 Intake Total 200 Balance 200 Intake: Other 200 Other: Voiding Method Toilet 01/23/20 06:32 01/24/20 11:36 EKG Interpretations (text) EKG shows atrial flutter, atypical Assessment and Plan Plan: Assessment and plan #1 hyperkalemia with acute kidney injury #2 diabetes #3 hypertension #4 hyperlipidemia #5 PAD with intermediate to severe disease involving the left common iliac artery, occluded right SFA and severe disease involving the left SFA, patient scheduled to undergo MERCHANDISE MARKER of the right and left SFA as an outpatient by Dr Mcmullen #6 coronary artery disease with prior bypass surgery #7 remote history of nicotine dependence #8 sleep apnea #9 Parkinson's #10 atrial tachycardia/atrial flutter, atypical, appears to be of new onset for the patient Plan Patient's most recent echocardiogram with Doppler study was performed in October which revealed an ejection fraction of 45-50%. Moderate to severe tricuspid regurg. Severe pulmonary hypertension. We will not need to repeat an echo on this admission. We will look into coverage for Eliquis, patient has been educated regarding anticoagulation. Further recommendations to follow. DNP note has been reviewed, I agree with a documented findings and plan of care. Patient was seen and examined.
--- NOTE | 2020-01-24 17:01 | P.PN ---
Progress Note - Text Progress Note Date: 01/24/20 History of presenting complaint: This is a pleasant 79-year-old patient of Dr. Greg Kline. Chronic stable medical conditions include COPD, diabetes, hyperlipidemia, hypertension, parkinsonism, sleep apnea, coronary artery disease with prior bypass. CHF combined with systolic and diastolic dysfunction EF 45-50%. Normally lives alone and gets uses a walker to get about. Patient presented with family doctor finding hyperkalemia potassium of 5.9. Given Kayexalate. Today-sitting up in a chair. Feeling better. Chronically tired. Telemetry showed heart rate increased and about 120s. Strip showing atrial flutter. No chest pain or palpitation. Review of systems: Was done for constitutional, cardiovascular, GI, pulmonary. relevant finding as above Active Medications Acetaminophen (Acetaminophen Tab 325 Mg Tab) 650 mg PO Q6HR PRN PRN Reason: Mild Pain or Fever > 100.5 Albuterol Sulfate (Albuterol Nebulized 2.5 Mg/3 Ml) 2.5 mg INHALATION RT-QID PRN PRN Reason: Shortness Of Breath Allopurinol (Allopurinol 300 Mg Tab) 300 mg PO DAILY [facility] Last Admin: 01/24/20 08:32 Dose: 300 mg Documented by: Aspirin (Aspirin 81 Mg) 81 mg PO DAILY@0900 [facility] Last Admin: 01/24/20 08:32 Dose: 81 mg Documented by: Atorvastatin Calcium (Atorvastatin 10 Mg Tab) 10 mg PO DAILY@1800 [facility] Last Admin: 01/23/20 17:11 Dose: 10 mg Documented by: Ezetimibe (Ezetimibe 10 Mg Tab) 10 mg PO DAILY@1800 [facility] Last Admin: 01/23/20 17:11 Dose: 10 mg Documented by: Furosemide (Furosemide 40 Mg Tab) 40 mg PO DAILY [facility] Last Admin: 01/24/20 12:04 Dose: 40 mg Documented by: Gabapentin (Gabapentin 100 Mg Cap) 100 mg PO TID [facility] Last Admin: 01/24/20 15:17 Dose: 100 mg Documented by: Insulin Aspart (Insulin Aspart (Novolog) 100 Unit/Ml Vial) 0 unit SQ [facility]; Protocol Last Admin: 01/24/20 12:03 Dose: 1 unit Documented by: Linagliptin (Linagliptin 5 Mg Tablet) 5 mg PO DAILY [facility] Last Admin: 01/24/20 08:32 Dose: 5 mg Documented by: Metoprolol Succinate (Metoprolol Succinate (Er) 25 Mg Tab.Er.24h) 25 mg PO DAILY [facility] Last Admin: 01/24/20 08:33 Dose: 25 mg Documented by: Naloxone HCl (Naloxone 0.4 Mg/Ml 1 Ml Vial) 0.2 mg IV Q2M PRN PRN Reason: Opioid Reversal Ondansetron HCl (Ondansetron 4 Mg/2 Ml Vial) 4 mg IVP Q8HR PRN PRN Reason: Nausea And Vomiting Primidone (Primidone 50 Mg Tab) 50 mg PO DAILY@0900 [facility] Last Admin: 01/24/20 08:33 Dose: 50 mg Documented by: Primidone (Primidone 50 Mg Tab) 100 mg PO DAILY@1800 [facility] Last Admin: 01/23/20 17:11 Dose: 100 mg Documented by: Physical examination: VITAL SIGNS: 98.7, 124, 18, 1 38 x 68, 94% room air GENERAL: Sitting up in a chair, awake EYES: Pupils equal. Conjunctiva normal. HEENT: External appearance of nose and ears normal, oral cavity grossly normal. NECK: JVD not raised; masses not palpable. HEART: Irregular; edema present LUNGS: Respiratory rate increased, diminished breath sounds ABDOMEN: Soft, nontender, liver spleen not palpable, no masses palpable. PSYCH: Alert and oriented x3; mood and affect normal. DERMATOLOGICAL: Dry skin, with disfigured nails. 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 Patient does not have acute kidney injury. -Chronic gait dysfunction does use a walker Plan: I did EKG that is short atrial flutter uncontrolled. Patient be moved to the telemetry floor with a cardiology consultation. Other medications to continue. Care was discussed with the patient. Questions were answered.
[2020-01-24 17:15] LABS: Glucose,Whole Blood 153 mg/dL (75-99)
[2020-01-24] MEDS: ATORVASTATIN 10 MG TAB PO SCH (17:32)
[2020-01-24] MEDS: EZETIMIBE 10 MG TAB PO SCH (17:33)
[2020-01-24 20:33] LABS: Glucose,Whole Blood 173 mg/dL (75-99)
[2020-01-25 06:10] LABS: Glucose,Whole Blood 140 mg/dL (75-99)
[2020-01-25] MEDS: INSULIN ASPART (NovoLOG) 100 UNIT/ML VIAL SQ SCH ×4 (06:39→20:49)
[2020-01-25] MEDS: FUROSEMIDE 40 MG TAB PO SCH (08:19)
[2020-01-25] MEDS: GABAPENTIN 100 MG CAP PO SCH ×3 (08:19→20:49)
[2020-01-25] MEDS: LINAGLIPTIN 5 MG TABLET PO SCH (08:19)
[2020-01-25] MEDS: PRIMIDONE 50 MG TAB PO SCH ×2 (08:19→18:22)
[2020-01-25] MEDS: allopurinoL 300 MG TAB PO SCH (08:19)
[2020-01-25] MEDS: ASPIRIN 81 MG PO SCH (08:19)
[2020-01-25] MEDS: METOPROLOL SUCCINATE (ER) 25 MG TAB.ER.24H PO SCH (08:19)
[2020-01-25] MEDS ORDERED: METOPROLOL SUCCINATE (ER) 25 MG TAB.ER.24H PO STA (10:29)
[2020-01-25] MEDS: APIXABAN 2.5 MG TABLET PO SCH ×2 (11:56→20:49)
--- NOTE | 2020-01-25 12:17 | P.PN ---
Subjective Progress Note Date: 01/25/20 This is a 79-year-old female with history of ischemic heart disease with previous bypass surgery, severe pulmonary hypertension and also peripheral vascular disease who was admitted to the hospital and was found to have atrial flutter with moderately rapid ventricular response. Patient heart rate was in t he 120s and 130s. She seemed to fairly comfortable. Denies any chest pain. We will increase the dose of the beta raleigh to 25 mg twice a day. Patient is also being a initiated on anticoagulation therapy. Patient is waiting to have peripheral vascular procedure by Dr. Mcmullen. Rest of the management as for primary care physician Objective - Vital Signs Vital signs: Vital Signs Temp 96.6 F L 01/25/20 08:00 Pulse 86 01/25/20 11:25 Resp 18 01/25/20 11:25 BP 122/82 01/25/20 11:25 Pulse Ox 96 01/25/20 11:25 Intake & Output 01/24/20 01/25/20 01/25/20 18:59 06:59 18:59 Intake Total 320 Output Total 1200 500 350 Balance -880 -500 -350 Weight 90 kg Intake: Oral 120 Other 200 Output: Urine 1200 500 350 Other: Voiding Method Toilet Toilet # Voids 2 # Bowel Movements 0 - Exam GENERAL EXAM: Patient is alert and oriented and doesn't appear to be in any acute distress HEENT: Normocephalic. Normal reaction of pupils, equal size, normal range of extraocular motion. No erythema or exudates in throat. NECK: No masses, no nuchal rigidity. CHEST: No chest wall deformity. LUNGS: Equal air entry with no crackles or wheeze. HEART: S1 and S2 normal with tachycardic ABDOMEN: No hepatosplenomegaly, normal bowel sounds, no guarding or rigidity. SKIN: No rashes CENTRAL NERVOUS SYSTEM: No focal deficits. EXTREMITIES: No cyanosis, - Labs CBC & Chem 7: 01/23/20 06:32 01/24/20 11:36 Labs: Abnormal Lab Results - Last 24 Hours (Table) 01/24/20 01/24/20 01/24/20 Range/Units 11:36 14:50 17:07 Sodium 134 L (137-145) mmol/L BUN 37 H (7-17) mg/dL Creatinine 1.30 H (0.52-1.04) mg/dL Glucose 144 H (74-99) mg/dL POC Glucose (mg/dL) 153 H (75-99) mg/dL Calcium 7.3 L (8.4-10.2) mg/dL Ur Leukocyte Esterase Small H (Negative) 01/24/20 01/25/20 Range/Units 20:32 06:09 Sodium (137-145) mmol/L BUN (7-17) mg/dL Creatinine (0.52-1.04) mg/dL Glucose (74-99) mg/dL POC Glucose (mg/dL) 173 H 140 H (75-99) mg/dL Calcium (8.4-10.2) mg/dL Ur Leukocyte Esterase (Negative) Assessment and Plan (1) Atrial flutter with rapid ventricular response Current Visit: Yes Status: Acute Code(s): I48.92 - UNSPECIFIED ATRIAL FLUTTER SNOMED Code(s): 0917071 (2) Hyperkalemia Current Visit: Yes Status: Acute Code(s): E87.5 - HYPERKALEMIA SNOMED Code(s): 29626794 (3) Renal insufficiency Current Visit: Yes Status: Acute Code(s): N28.9 - DISORDER OF KIDNEY AND URETER, UNSPECIFIED SNOMED Code(s): 412058929 (4) CHF (congestive heart failure) Current Visit: No Status: Acute Code(s): I50.9 - HEART FAILURE, UNSPECIFIED SNOMED Code(s): 46182681 Plan: Increase the dose of the beta raleigh and add anti-coagulation therapy.
[2020-01-25 12:18] LABS: Glucose,Whole Blood 166 mg/dL (75-99)
[2020-01-25 16:58] LABS: Glucose,Whole Blood 160 mg/dL (75-99)
[2020-01-25] MEDS: EZETIMIBE 10 MG TAB PO SCH (18:22)
[2020-01-25] MEDS: ATORVASTATIN 10 MG TAB PO SCH (18:22)
[2020-01-25 19:59] LABS: Glucose,Whole Blood 206 mg/dL (75-99)
--- NOTE | 2020-01-25 20:17 | PN ---
PROGRESS NOTE Patient is seen for followup for acute kidney injury. Patient was admitted to the hospital with elevated potassium as outpatient at 5.9. She did admit to history of use of NSAIDs prior to admission. Patient's blood pressure has not been low. She was not on any angiotensin receptor blockers or MARISABEL inhibitors prior to admission. Serum creatinine has improved. Her potassium has improved as well. PHYSICAL EXAMINATION: Patient is comfortable. Blood pressure is 122/82, heart rate 86 per minute. She is afebrile. EXAMINATION OF THE HEART: S1 and S2. EXAMINATION OF LUNGS: Bilateral breath sounds are heard. ABDOMEN: Soft, non-tender. Examination of lower extremities shows trace edema bilaterally. There is some redness noted in the lower extremities, more on the left side than on the right side. 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 LABS: Labs show sodium 134, potassium 5.1, creatinine 1.3 from yesterday. No labs available from today. UA is completely benign. ASSESSMENT: 1. Acute kidney injury, currently improved. No nephrotoxic agents on board. Patient is currently not on any IV fluids. She is maintained on a small dose of oral Lasix, which I will continue for now. 2. Mild volume overload, currently improved. 3. Atrial flutter with rapid ventricular response, being followed by Cardiology. Currently maintained on beta blockers and Eliquis. 4. Hyperkalemia associated with acute kidney injury, increased intake of potassium- containing foods. Now improved. PLAN: Maintain patient on low-potassium diet. Continue with low-dose loop diuretics and follow up as outpatient for CKD. MMODL / IJN: [id number] /
--- NOTE | 2020-01-25 23:02 | P.PN ---
Progress Note - Text Progress Note Date: 01/25/20 History of presenting complaint: This is a pleasant 79-year-old patient of Dr. Greg Kline. Chronic stable medical conditions include COPD, diabetes, hyperlipidemia, hypertension, parkinsonism, sleep apnea, coronary artery disease with prior bypass. CHF combined with systolic and diastolic dysfunction EF 45-50%. Normally lives alone and gets uses a walker to get about. Patient presented with family doctor finding hyperkalemia potassium of 5.9. Given Kayexalate. Atrial flutter with a rapid ventricular rate. Today-up in a chair. Heart distant up to 120s. Dose of beta raleigh increased . Did tolerate her diet. Review of systems: Was done for constitutional, cardiovascular, GI, pulmonary. relevant finding as above Active Medications Acetaminophen (Acetaminophen Tab 325 Mg Tab) 650 mg PO Q6HR PRN PRN Reason: Mild Pain or Fever > 100.5 Albuterol Sulfate (Albuterol Nebulized 2.5 Mg/3 Ml) 2.5 mg INHALATION RT-QID PRN PRN Reason: Shortness Of Breath Allopurinol (Allopurinol 300 Mg Tab) 300 mg PO DAILY [facility] Last Admin: 01/25/20 08:19 Dose: 300 mg Documented by: Apixaban (Apixaban 2.5 Mg Tablet) 2.5 mg PO BID [facility] Last Admin: 01/25/20 20:49 Dose: 2.5 mg Documented by: Aspirin (Aspirin 81 Mg) 81 mg PO DAILY@0900 [facility] Last Admin: 01/25/20 08:19 Dose: 81 mg Documented by: Atorvastatin Calcium (Atorvastatin 10 Mg Tab) 10 mg PO DAILY@1800 [facility] Last Admin: 01/25/20 18:22 Dose: 10 mg Documented by: Ezetimibe (Ezetimibe 10 Mg Tab) 10 mg PO DAILY@1800 [facility] Last Admin: 01/25/20 18:22 Dose: 10 mg Documented by: Furosemide (Furosemide 40 Mg Tab) 40 mg PO DAILY [facility] Last Admin: 01/25/20 08:19 Dose: 40 mg Documented by: Gabapentin (Gabapentin 100 Mg Cap) 100 mg PO TID [facility] Last Admin: 01/25/20 20:49 Dose: 100 mg Documented by: Insulin Aspart (Insulin Aspart (Novolog) 100 Unit/Ml Vial) 0 unit SQ ACHS [facility]; Protocol Last Admin: 01/25/20 20:49 Dose: 3 unit Documented by: Linagliptin (Linagliptin 5 Mg Tablet) 5 mg PO DAILY [facility] Last Admin: 01/25/20 08:19 Dose: 5 mg Documented by: Metoprolol Succinate (Metoprolol Succinate (Er) 50 Mg Tab.Er.24h) 50 mg PO DAILY [facility] Naloxone HCl (Naloxone 0.4 Mg/Ml 1 Ml Vial) 0.2 mg IV Q2M PRN PRN Reason: Opioid Reversal Ondansetron HCl (Ondansetron 4 Mg/2 Ml Vial) 4 mg IVP Q8HR PRN PRN Reason: Nausea And Vomiting Primidone (Primidone 50 Mg Tab) 50 mg PO DAILY@0900 [facility] Last Admin: 01/25/20 08:19 Dose: 50 mg Documented by: Primidone (Primidone 50 Mg Tab) 100 mg PO DAILY@1800 [facility] Last Admin: 01/25/20 18:22 Dose: 100 mg Documented by: Physical examination: VITAL SIGNS: 96.6, 120, 18, 120/77, 97% room air GENERAL: Sitting up in a chair, awake EYES: Pupils equal. Conjunctiva normal. HEENT: External appearance of nose and ears normal, oral cavity grossly normal. NECK: JVD not raised; masses not palpable. HEART: Irregular; edema present LUNGS: Respiratory rate increased, diminished breath sounds ABDOMEN: Soft, nontender, liver spleen not palpable, no masses palpable. PSYCH: Alert and oriented x3; mood and affect normal. DERMATOLOGICAL: Dry skin, with disfigured nails. 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 Patient does not have acute kidney injury. -Chronic gait dysfunction does use a walker Plan: Beta raleigh increased. Other medications to continue. Patient started eliquis. Discussed with patient.
[2020-01-26 06:23] LABS: Glucose,Whole Blood 152 mg/dL (75-99)
[2020-01-26] MEDS: INSULIN ASPART (NovoLOG) 100 UNIT/ML VIAL SQ SCH ×2 (06:45→12:55)
[2020-01-26 08:08] VITALS: RESP 17
[2020-01-26] MEDS: allopurinoL 300 MG TAB PO SCH (08:08)
[2020-01-26] MEDS: ASPIRIN 81 MG PO SCH (08:08)
[2020-01-26] MEDS: APIXABAN 2.5 MG TABLET PO SCH ×2 (08:09→17:23)
[2020-01-26] MEDS: LINAGLIPTIN 5 MG TABLET PO SCH (08:09)
[2020-01-26] MEDS: FUROSEMIDE 40 MG TAB PO SCH (08:09)
[2020-01-26] MEDS: GABAPENTIN 100 MG CAP PO SCH ×2 (08:09→16:14)
[2020-01-26] MEDS: PRIMIDONE 50 MG TAB PO SCH (08:12)
[2020-01-26] MEDS ORDERED: METOPROLOL SUCCINATE (ER) 50 MG TAB.ER.24H PO SCH (09:00)
[2020-01-26 12:11] LABS: Glucose,Whole Blood 181 mg/dL (75-99)
--- NOTE | 2020-01-26 14:36 | P.PN ---
Subjective This is a pleasant 79-year-old female history of ischemic heart disease with previous bypass surgery, severe pulmonary hypertension and pe ripheral vascular disease. She follows in the office with Dr. Burnett. She was noted to have atrial flutter with moderately rapid ventricular response. This was new for the patient. She has been started on beta blockers and anti- coagulation. She is seen and examined sitting up in the chair in no acute distress. She denies symptoms of chest pain, shortness of breath, dizziness or palpitations. Blood pressure 108/68 heart rate 68 afebrile maintaining oxygen saturation on room air. GENERAL: Well-appearing, well-nourished and in no acute distress. NECK: Supple without JVD or thyromegaly. LUNGS: Breath sounds clear to auscultation bilaterally. Respiration equal and unlabored. No wheezes, rales or rhonchi. HEART: Regular rate and rhythm without murmurs, rubs or gallops. S1 and S2 heard. EXTREMITIES: Normal range of motion, no edema. No clubbing or cyanosis. Peripheral pulses intact. ASSESSMENT Atrial flutter with rapid ventricular rates, improved Hyperkalemia, resolved Renal insufficiency Acute kidney injury Diabetes mellitus Hypertension Peripheral vascular disease PLAN She appears to have converted to sinus mechanism. Obtain postconversion EKG. Clinically stable from a cardiac perspective. Nurse Practitioner note has been reviewed, I agree with a documented findings and plan of care. Patient was seen and examined. Objective - Vital Signs Vital signs: Vital Signs Temp 98.3 F 01/26/20 12:00 Pulse 68 01/26/20 12:00 Resp 17 01/26/20 12:00 BP 108/68 01/26/20 12:00 Pulse Ox 96 01/26/20 12:00 Intake & Output 01/25/20 01/26/20 01/26/20 18:59 06:59 18:59 Intake Total 361 240 Output Total 750 700 Balance -389 -460 Weight 89.9 kg Intake: Oral 361 240 Output: Urine 750 700 Other: Voiding Method Toilet Toilet Toilet # Voids 2 - Labs CBC & Chem 7: 01/23/20 06:32 01/24/20 11:36 Labs: Abnormal Lab Results - Last 24 Hours (Table) 01/25/20 01/25/20 01/26/20 Range/Units 16:46 19:56 06:15 POC Glucose (mg/dL) 160 H 206 H 152 H (75-99) mg/dL 01/26/20 Range/Units 12:10 POC Glucose (mg/dL) 181 H (75-99) mg/dL
[2020-01-26 16:12] VITALS: BP 145/86; PULSE 112; TEMP 97.9
--- NOTE | 2020-01-26 22:52 | P.DS ---
Providers Date of admission: 01/24/20 13:37 Expected date of discharge: 01/26/20 Attending physician: David Jim Consults: 01/23/20 11:01 Consult Physician Routine Consulting Provider: Digna Roth Consult Reason/Comments: EDWIN and hyperkalemia Do you want consulting provider notified?: Yes 01/24/20 13:31 Consult Physician Routine Consulting Provider: Minh Short Consult Reason/Comments: new onset a flutter Do you want consulting provider notified?: Yes Primary care physician: [facility] Course: History of presenting complaint: This is a pleasant 79-year-old patient of Dr. Greg Kline. Chronic stable medical conditions include COPD, diabetes, hyperlipidemia, hypertension, parkinsonism, sleep apnea, coronary artery disease with prior bypass. CHF comb ined with systolic and diastolic dysfunction EF 45-50%. Normally lives alone and gets uses a walker to get about. Patient presented with family doctor finding hyperkalemia potassium of 5.9. Given Kayexalate. Atrial flutter with a rapid ventricular rate.-Converted to sinus rhythm. Today-doing well. In sinus rhythm. Oral intake with. Cleared by cardiology. Discussed with the patient. Consultation: Dr. Briones. Physical examination: VITAL SIGNS: 97.9, 68, 17, 145/86, 95% GENERAL: Sitting up comfortable EYES: Pupils equal. Conjunctiva normal. HEENT: External appearance of nose and ears normal, oral cavity grossly normal. NECK: JVD not raised; masses not palpable. HEART: First cycle some normal; edema decreased LUNGS: Respiratory rate increased, diminished breath sounds ABDOMEN: Soft, nontender, liver spleen not palpable, no masses palpable. PSYCH: Alert and oriented x3; mood and affect normal. DERMATOLOGICAL: Dry skin, with disfigured nails. 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 Patient does not have acute kidney injury. -Chronic gait dysfunction does use a walker Disposition: Home Patient Condition at Discharge: Stable Plan - Discharge Summary New Discharge Prescriptions: New Apixaban [Eliquis] 2.5 mg PO BID #60 tablet Metoprolol Succinate (ER) [Toprol XL] 50 mg PO DAILY #60 tab.er.24h Continue Ezetimibe [Zetia] 10 mg PO DAILY@1800 Lovastatin [Mevacor] 10 mg PO DAILY@1800 sitaGLIPtin PHOS/metFORMIN HCL [Janumet 50-1,000 mg Tablet] 1 tab PO BID Primidone [Mysoline] 100 mg PO DAILY@1800 Colchicine [Colcrys] 0.6 mg PO BID@0900,1800 Aspirin EC [Ecotrin Low Dose] 81 mg PO DAILY@0900 Gabapentin [Neurontin] 100 mg PO TID Primidone [Mysoline] 50 mg PO DAILY@0900 Vitamin B-12(Unknown Dose) 1 tab PO DAILY@1500 Albuterol Inhaler [Ventolin Hfa Inhaler] 2 puff INHALATION RT-QID PRN PRN Reason: Shortness Of Breath Folic Acid(Unknown Dose) 1 tab PO DAILY@1500 Furosemide [Lasix] 40 mg PO DAILY@0900 Discontinued glipiZIDE XL [Glucotrol XL] 5 mg PO QAM Naproxen Sodium [Aleve] 220 mg PO BID PRN PRN Reason: Pain Metoprolol Succinate (ER) [Toprol Xl] 25 mg PO DAILY glipiZIDE XL [Glucotrol Xl] 10 mg PO DAILY@1800 No Action Denosumab [Prolia] 60 mg SQ Q180D Discharge Medication List Ezetimibe [Zetia] 10 mg PO DAILY@1800 11/20/13 [History] Lovastatin [Mevacor] 10 mg PO DAILY@1800 11/20/13 [History] sitaGLIPtin PHOS/metFORMIN HCL [Janumet 50-1,000 mg Tablet] 1 tab PO BID 08/20/16 [History] Aspirin EC [Ecotrin Low Dose] 81 mg PO DAILY@0900 01/25/19 [History] Colchicine [Colcrys] 0.6 mg PO BID@0900,1800 01/25/19 [History] Gabapentin [Neurontin] 100 mg PO TID 10/17/19 [History] Primidone [Mysoline] 50 mg PO DAILY@0900 01/25/19 [History] Primidone [Mysoline] 100 mg PO DAILY@1800 01/25/19 [History] Albuterol Inhaler [Ventolin Hfa Inhaler] 2 puff INHALATION RT-QID PRN 10/19/19 [History] Folic Acid(Unknown Dose) 1 tab PO DAILY@1500 10/19/19 [History] Vitamin B-12(Unknown Dose) 1 tab PO DAILY@1500 10/19/19 [History] Furosemide [Lasix] 40 mg PO DAILY@0900 12/24/19 [History] Denosumab [Prolia] 60 mg SQ Q180D 01/23/20 [History] Apixaban [Eliquis] 2.5 mg PO BID #60 tablet 01/26/20 [Rx] Metoprolol Succinate (ER) [Toprol XL] 50 mg PO DAILY #60 tab.er.24h 01/26/20 [Rx] Follow up Appointment(s)/Referral(s): All Burnett MD [STAFF PHYSICIAN] - 2 Weeks Greg Kline MD [Primary Care Provider] - 1-2 days Patient Instructions/Handouts: A-fib (Atrial Fibrillation) (DC), Potassium Content of Foods List (DC), Hyperkalemia (DC), Safe Use of Anticoagulants (DC) Discharge Disposition: HOME SELF-CARE
== END 2020-01-26 17:48 | disposition home or self-care (01) | DRG 641 ==
LOC: EC 06:17 → 1SOBS 07:17 → OBSVTOIN 01-24 13:37 → 3SCARD 01-24 16:19
PROVIDERS: ADMIT Hospitalist; ATTEND Hospitalist
DX: E87.5 Hyperkalemia (principal); N17.9 Acute kidney failure, unspecified; I13.0 Hypertensive heart and chronic kidney disease with heart failure and stage 1 through stage 4 chronic kidney disease, or unspecified chronic kidney disease; I48.4 Atypical atrial flutter; I47.1 Supraventricular tachycardia; I50.42 Chronic combined systolic (congestive) and diastolic (congestive) heart failure; D63.1 Anemia in chronic kidney disease; E11.22 Type 2 diabetes mellitus with diabetic chronic kidney disease; I27.29 Other secondary pulmonary hypertension; E86.0 Dehydration; E11.42 Type 2 diabetes mellitus with diabetic polyneuropathy; E11.51 Type 2 diabetes mellitus with diabetic peripheral angiopathy without gangrene; N18.30 Chronic kidney disease, stage 3 unspecified; G20 Parkinson's disease; J44.9 Chronic obstructive pulmonary disease, unspecified; E83.39 Other disorders of phosphorus metabolism; I70.213 Atherosclerosis of native arteries of extremities with intermittent claudication, bilateral legs; I13.10 Hypertensive heart and chronic kidney disease without heart failure, with stage 1 through stage 4 chronic kidney disease, or unspecified chronic kidney disease; I07.1 Rheumatic tricuspid insufficiency; E78.5 Hyperlipidemia, unspecified; G47.33 Obstructive sleep apnea (adult) (pediatric); M10.9 Gout, unspecified; Q80.9 Congenital ichthyosis, unspecified; G89.29 Other chronic pain; M54.2 Cervicalgia; M19.90 Unspecified osteoarthritis, unspecified site; I25.10 Atherosclerotic heart disease of native coronary artery without angina pectoris; I25.2 Old myocardial infarction; R13.10 Dysphagia, unspecified; R26.9 Unspecified abnormalities of gait and mobility; R35.0 Frequency of micturition; E66.9 Obesity, unspecified; Z68.39 Body mass index [BMI] 39.0-39.9, adult; Z79.82 Long term (current) use of aspirin; Z79.84 Long term (current) use of oral hypoglycemic drugs; Z79.899 Other long term (current) drug therapy; Z87.891 Personal history of nicotine dependence; Z95.1 Presence of aortocoronary bypass graft; Z87.19 Personal history of other diseases of the digestive system; Z98.890 Other specified postprocedural states; Z90.49 Acquired absence of other specified parts of digestive tract; Z90.710 Acquired absence of both cervix and uterus; Z87.42 Personal history of other diseases of the female genital tract; Z90.89 Acquired absence of other organs; Z88.4 Allergy status to anesthetic agent; Z88.5 Allergy status to narcotic agent; Z88.8 Allergy status to other drugs, medicaments and biological substances; Z82.49 Family history of ischemic heart disease and other diseases of the circulatory system; Z82.5 Family history of asthma and other chronic lower respiratory diseases; Z80.1 Family history of malignant neoplasm of trachea, bronchus and lung; Z80.0 Family history of malignant neoplasm of digestive organs; Z80.3 Family history of malignant neoplasm of breast
CPT/HCPCS: 36415; 71046; 80048; 81001; 83735; 84100; 85025; 93005; 96361; 96374; 99285

== ENCOUNTER 2020-01-31 16:42 | Inpatient (IN) | payer MEDICARE, OTHER ==
[2020-01-31 17:38] LABS: Anisocytosis Slight; Basophils % (A) 1 %; Eosinophils # (A) 0.4 k/uL (0-0.7); Eosinophils % (A) 10 %; HCT 32.2 % (34.0-46.0); HGB 10.3 gm/dL (11.4-16.0); Hypochromasia Moderate; Lymphocytes # (A) 0.9 k/uL (1.0-4.8); Lymphocytes % (A) 21 %; MCH 33.3 pg (25.0-35.0); MCHC 32.1 g/dL (31.0-37.0); MCV 103.6 fL (80.0-100.0); Macrocytosis Moderate; Monocytes # (A) 0.4 k/uL (0-1.0); Monocytes % (A) 8 %; Neutrophils # (A) 2.4 k/uL (1.3-7.7); Neutrophils % (A) 56 %; Platelet Count 179 k/uL (150-450); RBC 3.11 m/uL (3.80-5.40); RDW 16.2 % (11.5-15.5); WBC 4.3 k/uL (3.8-10.6)
[2020-01-31 17:50] LABS: Appearance,Urine Clear (Clear); Bilirubin,Urine Negative (Negative); Blood,Urine Negative (Negative); Color,Urine Light Yellow; Glucose,Urine (UA) Negative (Negative); Ketones,Urine Negative (Negative); Leukocyte Esterase,Urine Negative (Negative); Nitrite,Urine Negative (Negative); Protein,Urine Trace (Negative); Urobilinogen,Urine <2.0 mg/dL (<2.0)
[2020-01-31 17:58] LABS: Partial Thromboplastin Time 26.3 sec (22.0-30.0); Prothrombin Time 10.2 sec (9.0-12.0)
[2020-01-31 18:00] LABS: Albumin 4.2 g/dL (3.5-5.0); Potassium 4.9 mmol/L (3.5-5.1); Total Bilirubin 0.4 mg/dL (0.2-1.3); Total Protein 7.9 g/dL (6.3-8.2)
[2020-01-31 18:03] LABS: Calcium 5.7 mg/dL (8.4-10.2)
--- NOTE | 2020-01-31 19:18 | US ---
EXAMINATION TYPE: US renals and bladder DATE OF EXAM: 01/31/2020 COMPARISON: CT 2017 CLINICAL HISTORY: retention. Retention. Hx kidney stones. EXAM MEASUREMENTS: Right Kidney: 9.7 x 4.6 x 4.3 cm Left Kidney: 9.9 x 5.7 x 5.1 cm Slightly limited due to gas and patient body habitus. Right Kidney: No hydronephrosis or masses seen. Cortical thinning. Left Kidney: No hydronephrosis or masses seen. Cortical thinning. Bladder: Appears to be anechoic. Bilateral Jets seen: No IMPRESSION: No acute process.
[2020-01-31] MEDS ORDERED: DILTIAZEM DRIP BOLUS FROM BAG 1 MG SOLN IV ONE ×2 (19:40→20:43)
[2020-01-31] MEDS ORDERED: DILTIAZEM 125 MG in SODIUM CHLORIDE 0.9% 100 ML IV SCH (19:45)
[2020-01-31] MEDS ORDERED: NALOXONE 0.4 MG/ML 1 ML VIAL IV PRN (20:07)
--- NOTE | 2020-01-31 20:07 | ED ---
General Adult HPI - General Chief complaint: Urogenital Stated complaint: Unable to urinate Time Seen by Provider: 01/31/20 16:52 Source: patient Mode of arrival: wheelchair Limitations: no limitations - History of Present Illness Initial comments: 79-year-old female past medical history of diabetes, hypertension, hyperlipidemia who presents to the emergency department with reported inability to void. States that she has not been able to PE since yesterday. She sits down on the commode and is unable to go. Recently the patient was hospitalized for kidney failure. Dr. Nelson does call the hospital informs us that the patient is having issues and will be coming in for evaluation. Patient does admit to suprapubic pressure. Denies any issues with rectal bleeding. Does admit to diarrhea. She does have a history of A. fib for which she takes metoprolol. Denies missing any doses. No chest pain or shortness of breath. No fevers or chills. No other alleviating, precipitating or modifying factors - Related Data Home Medications Medication Instructions Recorded Confirmed Ezetimibe [Zetia] 10 mg PO DAILY@1800 11/20/13 01/31/20 Lovastatin [Mevacor] 10 mg PO DAILY@1800 11/20/13 01/31/20 sitaGLIPtin PHOS/metFORMIN HCL 1 tab PO BID 08/20/16 01/31/20 [Janumet 50-1,000 mg Tablet] Aspirin EC [Ecotrin Low Dose] 81 mg PO DAILY@0900 01/25/19 01/31/20 Colchicine [Colcrys] 0.6 mg PO BID@0900,1800 01/25/19 01/31/20 Gabapentin [Neurontin] 100 mg PO TID 01/25/19 01/31/20 Primidone [Mysoline] 50 mg PO DAILY@0900 01/25/19 01/31/20 Primidone [Mysoline] 100 mg PO DAILY@1800 01/25/19 01/31/20 Albuterol Inhaler [Ventolin Hfa 2 puff INHALATION RT-QID PRN 10/19/19 01/31/20 Inhaler] Folic Acid(Unknown Dose) 1 tab PO DAILY@1500 10/19/19 01/31/20 Vitamin B-12(Unknown Dose) 1 tab PO DAILY@1500 10/19/19 01/31/20 Furosemide [Lasix] 40 mg PO DAILY@0900 12/24/19 01/31/20 Denosumab [Prolia] 60 mg SQ Q180D 01/23/20 01/31/20 Previous Rx's Medication Instructions Recorded Apixaban [Eliquis] 2.5 mg PO BID #60 tablet 01/26/20 Metoprolol Succinate (ER) [Toprol 50 mg PO DAILY #60 tab.er.24h 01/26/20 XL] Allergies Allergy/AdvReac Type Severity Reaction Status Date / Time albuterol [From DuoNeb] AdvReac Nausea Verified 01/31/20 19:17 cortisone AdvReac PAIN Verified 01/31/20 19:17 hydrocodone AdvReac Nausea Verified 01/31/20 19:17 ipratropium [From DuoNeb] AdvReac Nausea Verified 01/31/20 19:17 procaine HCl [From Novocain] AdvReac pain Verified 01/31/20 19:17 allergy medicines AdvReac "dries me Uncoded 01/31/20 16:48 out, bloody noses,generalized pain" Review of Systems ROS Statement: Those systems with pertinent positive or pertinent negative responses have been documented in the HPI. ROS Other: All systems not noted in ROS Statement are negative. Past Medical History Past Medical History: COPD, Diabetes Mellitus, Hyperlipidemia, Hypertension, Myocardial Infarction (NM), Sleep Apnea/CPAP/BIPAP Additional Past Medical History / Comment(s): tremors,NO left arm blood draw or blood pressure(vessel harvested for CABG), blockages in angelica legs, Coonstipation, gout, PAD Last Myocardial Infarction Date:: 1999 History of Any Multi-Drug Resistant Organisms: None Reported Past Surgical History: Appendectomy, Coronary Bypass/CABG, Heart Catheterization, Hysterectomy, Tonsillectomy Additional Past Surgical History / Comment(s): angiogram. Right neck lymphnode removal Past Anesthesia/Blood Transfusion Reactions: No Reported Reaction Past Psychological History: No Psychological Hx Reported Smoking Status: Former smoker Past Alcohol Use History: None Reported Past Drug Use History: None Reported - Past Family History Mother Family Medical History: COPD, Myocardial Infarction (NM) Brother(s) Family Medical History: Cancer Additional Family Medical History / Comment(s): LUNG CANCER Son(s) Family Medical History: Cancer Additional Family Medical History / Comment(s): COLON CANCER Sister(s) Family Medical History: Cancer Additional Family Medical History / Comment(s): (2) SISTERS HAD BREAST CANCER. General Exam Limitations: no limitations Course Vital Signs 01/31/20 01/31/20 01/31/20 16:46 18:47 19:40 Temperature 98.2 F 98.1 F Pulse Rate 118 H 116 H 115 H Respiratory 18 16 18 Rate Blood Pressure 121/80 130/79 130/79 O2 Sat by Pulse 97 97 93 L Oximetry 01/31/20 01/31/20 20:43 21:00 Temperature Pulse Rate 112 H 94 Respiratory 18 18 Rate Blood Pressure 125/73 98/56 O2 Sat by Pulse 94 L 93 L Oximetry EKG Findings - EKG Comments: EKG Findings:: EKG demonstrates atrial flutter with a rate of 118. QRS 82. QTC of 493. There is some acute ST segment elevation in V5 however this is isolated. Inverted T-wave in 1 and aVL however no depression Medical Decision Making - Medical Decision Making Upon arrival the patient is placed into room 3. A thorough history and physical exam was performed. Patient is able to get up to the bedside commode and does urinate 400 cc. Bladder scan demonstrates 75 cc retained. Laboratory studies were conducted and urinalysis is performed. Renal ultrasound was also performed. Laboratory studies demonstrate a sodium of 132. Creatinine 1.5 which is around the patient's baseline. Lactic acid 2.6. Calcium low at 5.7. Renal ultrasound demonstrates no acute process. 12-lead EKG is performed which does demonstrate that the patient is in A. fib with RVR. She was given a bolus of Cardizem and placed on a Cardizem drip for rate control. She did take her metoprolol today which is once daily. She does take Ahlquist and this is ordered. I did recommend admission for her rapid heart rate for which the patient did agree to. Discuss case with Dr. Jim who accepted admission. Patient is awaiting a bed on the floor - Lab Data Result diagrams: 01/31/20 17:30 01/31/20 17:30 Lab Results 01/31/20 01/31/20 01/31/20 Range/Units 17:20 17:30 17:30 WBC 4.3 (3.8-10.6) k/uL RBC 3.11 L (3.80-5.40) m/uL Hgb 10.3 L (11.4-16.0) gm/dL Hct 32.2 L (34.0-46.0) % MCV 103.6 H (80.0-100.0) fL MCH 33.3 (25.0-35.0) pg MCHC 32.1 (31.0-37.0) g/dL RDW 16.2 H (11.5-15.5) % Plt Count 179 (150-450) k/uL Neutrophils % 56 % Lymphocytes % 21 % Monocytes % 8 % Eosinophils % 10 % Basophils % 1 % Neutrophils # 2.4 (1.3-7.7) k/uL Lymphocytes # 0.9 L (1.0-4.8) k/uL Monocytes # 0.4 (0-1.0) k/uL Eosinophils # 0.4 (0-0.7) k/uL Basophils # 0.0 (0-0.2) k/uL Hypochromasia Moderate Anisocytosis Slight Macrocytosis Moderate PT 10.2 (9.0-12.0) sec INR 1.0 (<1.2) APTT 26.3 (22.0-30.0) sec Sodium (137-145) mmol/L Potassium (3.5-5.1) mmol/L Chloride (98-107) mmol/L Carbon Dioxide (22-30) mmol/L Anion Gap mmol/L BUN (7-17) mg/dL Creatinine (0.52-1.04) mg/dL Est GFR (CKD-EPI)AfAm (>60 ml/min/1.73 sqM) Est GFR (CKD-EPI)NonAf (>60 ml/min/1.73 sqM) Glucose (74-99) mg/dL Lactic Ac Sepsis Rflx Plasma Lactic Acid Roderick (0.7-2.0) mmol/L Calcium (8.4-10.2) mg/dL Total Bilirubin (0.2-1.3) mg/dL AST (14-36) U/L ALT (4-34) U/L Alkaline Phosphatase (38-126) U/L Troponin I (0.000-0.034) ng/mL Total Protein (6.3-8.2) g/dL Albumin (3.5-5.0) g/dL Urine Color Light Yellow Urine Appearance Clear (Clear) Urine pH 5.0 (5.0-8.0) Ur Specific Dumas 1.010 (1.001-1.035) Urine Protein Trace H (Negative) Urine Glucose (UA) Negative (Negative) Urine Ketones Negative (Negative) Urine Blood Negative (Negative) Urine Nitrite Negative (Negative) Urine Bilirubin Negative (Negative) Urine Urobilinogen <2.0 (<2.0) mg/dL Ur Leukocyte Esterase Negative (Negative) 01/31/20 01/31/20 01/31/20 Range/Units 17:30 17:30 18:00 WBC (3.8-10.6) k/uL RBC (3.80-5.40) m/uL Hgb (11.4-16.0) gm/dL Hct (34.0-46.0) % MCV (80.0-100.0) fL MCH (25.0-35.0) pg MCHC (31.0-37.0) g/dL RDW (11.5-15.5) % Plt Count (150-450) k/uL Neutrophils % % Lymphocytes % % Monocytes % % Eosinophils % % Basophils % % Neutrophils # (1.3-7.7) k/uL Lymphocytes # (1.0-4.8) k/uL Monocytes # (0-1.0) k/uL Eosinophils # (0-0.7) k/uL Basophils # (0-0.2) k/uL Hypochromasia Anisocytosis Macrocytosis PT (9.0-12.0) sec INR (<1.2) APTT (22.0-30.0) sec Sodium 132 L (137-145) mmol/L Potassium 4.9 (3.5-5.1) mmol/L Chloride 98 (98-107) mmol/L Carbon Dioxide 20 L (22-30) mmol/L Anion Gap 14 mmol/L BUN 40 H (7-17) mg/dL Creatinine 1.58 H (0.52-1.04) mg/dL Est GFR (CKD-EPI)AfAm 36 (>60 ml/min/1.73 sqM) Est GFR (CKD-EPI)NonAf 31 (>60 ml/min/1.73 sqM) Glucose 131 H (74-99) mg/dL Lactic Ac Sepsis Rflx Y Plasma Lactic Acid Roderick 2.6 H* (0.7-2.0) mmol/L Calcium 5.7 L* (8.4-10.2) mg/dL Total Bilirubin 0.4 (0.2-1.3) mg/dL AST 39 H (14-36) U/L ALT 28 (4-34) U/L Alkaline Phosphatase 148 H (38-126) U/L Troponin I (0.000-0.034) ng/mL Total Protein 7.9 (6.3-8.2) g/dL Albumin 4.2 (3.5-5.0) g/dL Urine Color Urine Appearance (Clear) Urine pH (5.0-8.0) Ur Specific Dum[place] (1.001-1.035) Urine Protein (Negative) Urine Glucose (UA) (Negative) Urine Ketones (Negative) Urine Blood (Negative) Urine Nitrite (Negative) Urine Bilirubin (Negative) Urine Urobilinogen (<2.0) mg/dL Ur Leukocyte Esterase (Negative) 01/31/20 Range/Units 18:10 WBC (3.8-10.6) k/uL RBC (3.80-5.40) m/uL Hgb (11.4-16.0) gm/dL Hct (34.0-46.0) % MCV (80.0-100.0) fL MCH (25.0-35.0) pg MCHC (31.0-37.0) g/dL RDW (11.5-15.5) % Plt Count (150-450) k/uL Neutrophils % % Lymphocytes % % Monocytes % % Eosinophils % % Basophils % % Neutrophils # (1.3-7.7) k/uL Lymphocytes # (1.0-4.8) k/uL Monocytes # (0-1.0) k/uL Eosinophils # (0-0.7) k/uL Basophils # (0-0.2) k/uL Hypochromasia Anisocytosis Macrocytosis PT (9.0-12.0) sec INR (<1.2) APTT (22.0-30.0) sec Sodium (137-145) mmol/L Potassium (3.5-5.1) mmol/L Chloride (98-107) mmol/L Carbon Dioxide (22-30) mmol/L Anion Gap mmol/L BUN (7-17) mg/dL Creatinine (0.52-1.04) mg/dL Est GFR (CKD-EPI)AfAm (>60 ml/min/1.73 sqM) Est GFR (CKD-EPI)NonAf (>60 ml/min/1.73 sqM) Glucose (74-99) mg/dL Lactic Ac Sepsis Rflx Plasma Lactic Acid Roderick (0.7-2.0) mmol/L Calcium (8.4-10.2) mg/dL Total Bilirubin (0.2-1.3) mg/dL AST (14-36) U/L ALT (4-34) U/L Alkaline Phosphatase (38-126) U/L Troponin I <0.012 (0.000-0.034) ng/mL Total Protein (6.3-8.2) g/dL Albumin (3.5-5.0) g/dL Urine Color Urine Appearance (Clear) Urine pH (5.0-8.0) Ur Specific [place] (1.001-1.035) Urine Protein (Negative) Urine Glucose (UA) (Negative) Urine Ketones (Negative) Urine Blood (Negative) Urine Nitrite (Negative) Urine Bilirubin (Negative) Urine Urobilinogen (<2.0) mg/dL Ur Leukocyte Esterase (Negative) Disposition Clinical Impression: Atrial flutter with rapid ventricular response, Urinary retention Disposition: ADMITTED IP TO THIS HOSP Condition: Stable Is patient prescribed a controlled substance at d/c from ED?: No Decision to Admit Reason: Admit from EC Decision Date: 01/31/20 Decision Time: 20:06
[2020-01-31] MEDS ORDERED: ALBUTEROL NEBULIZED 2.5 MG/3 ML INHALATION PRN (20:12)
[2020-01-31 21:27] LABS: Glucose,Whole Blood 207 mg/dL (75-99)
[2020-01-31] MEDS: APIXABAN 2.5 MG TABLET PO SCH (21:58)
[2020-01-31] MEDS: GABAPENTIN 100 MG CAP PO SCH (21:58)
[2020-02-01 08:11] LABS: Glucose,Whole Blood 159 mg/dL (75-99)
[2020-02-01 08:54] LABS: Potassium 4.9 mmol/L (3.5-5.1)
[2020-02-01 09:04] LABS: Calcium 5.4 mg/dL (8.4-10.2)
[2020-02-01 09:05] LABS: Anisocytosis Slight; Basophils % (A) 0 %; Eosinophils # (A) 0.4 k/uL (0-0.7); Eosinophils % (A) 11 %; HGB 9.8 gm/dL (11.4-16.0); Hypochromasia Slight; Lymphocytes # (A) 0.9 k/uL (1.0-4.8); Lymphocytes % (A) 21 %; MCH 32.2 pg (25.0-35.0); MCHC 31.5 g/dL (31.0-37.0); MCV 102.3 fL (80.0-100.0); Macrocytosis Moderate; Mean Platelet Volume 6.9; Monocytes # (A) 0.3 k/uL (0-1.0); Monocytes % (A) 9 %; Neutrophils # (A) 2.2 k/uL (1.3-7.7); Neutrophils % (A) 56 %; Platelet Count 177 k/uL (150-450); RBC 3.04 m/uL (3.80-5.40); RDW 16.7 % (11.5-15.5)
[2020-02-01] MEDS ORDERED: DEXTROSE 5% IN WATER 250 ML with AMIODARONE 300 MG IV ONE (09:47)
[2020-02-01] MEDS ORDERED: DEXTROSE 5% IN WATER 100 ML with AMIODARONE 150 MG IV ONE (10:15)
[2020-02-01] MEDS ORDERED: AMIODARONE 360 MG in DEXTROSE 5% IN WATER 200 ML IV ONE ×2 (10:30)
[2020-02-01] MEDS: INSULIN ASPART (NovoLOG) 100 UNIT/ML VIAL SQ SCH ×4 (10:48→20:22)
[2020-02-01 10:50] LABS: Magnesium 2.1 mg/dL (1.6-2.3)
[2020-02-01] MEDS: GABAPENTIN 100 MG CAP PO SCH ×3 (11:54→20:22)
[2020-02-01] MEDS: ASPIRIN 81 MG PO SCH (11:54)
[2020-02-01] MEDS: APIXABAN 2.5 MG TABLET PO SCH ×2 (11:54→20:22)
[2020-02-01] MEDS: FUROSEMIDE 40 MG TAB PO SCH (11:54)
[2020-02-01] MEDS: PRIMIDONE 50 MG TAB PO SCH ×2 (11:54→18:18)
[2020-02-01] MEDS: COLCHICINE 0.6 MG EACH PO SCH ×2 (11:55→18:18)
[2020-02-01 12:30] LABS: Glucose,Whole Blood 174 mg/dL (75-99)
[2020-02-01 13:15] VITALS: BMI 34.9
--- NOTE | 2020-02-01 14:12 | P.CRDCN ---
History of Present Illness History of present illness: HISTORY OF PRESENTING ILLNESS This is a pleasant 79-year-old female past medical history significant for coronary artery disease s/p bypass grafting, peripheral vascular disease, h ypertension, diabetes mellitus, dyslipidemia, atrial flutter, chronic kidney disease and former nicotine dependence. She follows in the office with Dr. Burnett. She is seen and examined sitting up in the emergency department. She presented to the hospital with symptoms of urinary retention, constipation and pelvic pain. EKG on arrival revealed atrial flutter typical in fashion with a 2:1 conduction. She was started on cardizem infusion. She denies chest pain, palpitations, dizziness or shortness of breath. She is currently scheduled to undergo peripheral intervention with Dr. Burnett next week Tuesday pending her heart rhythm. She was only recently diagnosed with atrial flutter and started on anti-coagulation January 23. Current daily medications include zetia 10 mg daily, torpol 50 mg daily, lovastatin 10 mg daily, lasix 40 mg BID, aspirin 81 mg daily and eliquis 2.5 mg BID. Laboratory data reviewed, WBC 4, hemoglobin 9.8, platelets 177, sodium 129, potassium 4.8, creatinine 1.36, magnesium 2.1, TSH 3.52, troponin negative x1. Recent echocardiogram obtained October 2019 revealed mildly impaired LV systolic function with ejection fraction 45-50%, septal wall motion delay, mild mitral regurgitation, moderate to severe tricuspid regurgitation and severe pulmonary hypertension with an RVSP of 79 mmHg. REVIEW OF SYSTEMS At the time of my exam: CONSTITUTIONAL: Denies fever or chills. CARDIOVASCULAR: Denies chest pain, shortness of breath, orthopnea, PND or palpitations. RESPIRATORY: Denies cough. GASTROINTESTINAL: Denies abdominal pain, diarrhea, constipation, nausea or vomiting. MUSCULOSKELETAL: Denies myalgias. NEUROLOGIC: Denies numbness, tingling or weakness. ENDOCRINE: Denies fatigue, weight change, polydipsia or polyurina. GENITOURINARY: Denies burning, hematuria or urgency with micturation. HEMATOLOGIC: Denies history of anemia or bleeding. PHYSICAL EXAMINATION Blood pressure 125/80 heart rate 118 afebrile and maintaining oxygen saturation on room air. CONSTITUTIONAL: No apparent distress. HEENT: Head is normocephalic. Pupils are equal, round. Sclerae anicteric. Mucous membranes of the mouth are moist. No JVD. No carotid bruit. CHEST EXAMINATION: Lungs are clear to auscultation. No chest wall tenderness is noted on palpation or with deep breathing. HEART EXAMINATION: Regular rate and rhythm. S1, S2 heard. No murmurs, gallops or rub. ABDOMEN: Soft, nontender. Positive bowel sounds. EXTREMITIES: 2+ peripheral pulses, no lower extremity edema and no calf tenderness. NEUROLOGIC EXAMINATION: Patient is awake, alert and oriented x3. ASSESSMENT Persistent atrial flutter, typical Peripheral vascular disease Coronary artery disease s/p bypass grafting Hypertension Dyslipidemia Diabetes mellitus Chronic kidney disease Former nicotine dependence PLAN Initiate on amiodarone bolus and then infusion. Discussed with Dr. Burnett and he will perform a BETHEL/cardioversion this afternoon. Continue Eliquis as previously ordered. Further recommendations to follow based on clinical course. Thank you kindly for this consultation. Nurse Practitioner note has been reviewed, I agree with a documented findings and plan of care. Patient was seen and examined. Past Medical History Past Medical History: Atrial Flutter, Coronary Artery Disease (CAD), Heart Failure, COPD, Diabetes Mellitus, GERD/Reflux, Hyperlipidemia, Hypertension, Myocardial Infarction (ID), Pneumonia, Renal Disease, Vascular Disorder Additional Past Medical History / Comment(s): Pt recently admitted to [facility] on 01/24/20 with Aflutter RVR/hyperkalemia/bilateral lower extremity ichthyosis, pulmonary HTN, tricuspid regurgitation. Other hx: NIDDM type II, neuropathy bilateral feet/legs, occasional dysphagia, gastritis, CKD stage III, nephrolithiasis, gout, osteoporosis, trenors, PAD/bilateral leg blockages which pt states are to be stented soon, gait dysfunction, back pain. Last Myocardial Infarction Date:: 1999 History of Any Multi-Drug Resistant Organisms: None Reported Past Surgical History: Adenoidectomy, Appendectomy, Coronary Bypass/CABG, Heart Catheterization, Hysterectomy, Tonsillectomy Additional Past Surgical History / Comment(s): 1999 CABG 4 vessel, EGD, colonoscopy, aborted lithotripsy d/t unable to view stone, angiograms, R neck benign lymph node removal-benign Past Anesthesia/Blood Transfusion Reactions: No Reported Reaction Smoking Status: Former smoker - Past Family History Mother Family Medical History: COPD, Myocardial Infarction ([place]) Brother(s) Family Medical History: Cancer Additional Family Medical History / Comment(s): LUNG CANCER Son(s) Family Medical History: Cancer Additional Family Medical History / Comment(s): COLON CANCER Sister(s) Family Medical History: Cancer Additional Family Medical History / Comment(s): (2) SISTERS HAD BREAST CANCER and one sister from it. Medications and Allergies Home Medications Medication Instructions Recorded Confirmed Type Ezetimibe [Zetia] 10 mg PO DAILY@1800 11/20/13 01/31/20 History Lovastatin [Mevacor] 10 mg PO DAILY@1800 11/20/13 01/31/20 History sitaGLIPtin PHOS/metFORMIN HCL 1 tab PO BID 08/20/16 01/31/20 History [Janumet 50-1,000 mg Tablet] Aspirin EC [Ecotrin Low Dose] 81 mg PO DAILY@0900 01/25/19 01/31/20 History Colchicine [Colcrys] 0.6 mg PO BID@0900,1800 01/25/19 01/31/20 History Gabapentin [Neurontin] 100 mg PO TID 01/25/19 01/31/20 History Primidone [Mysoline] 50 mg PO DAILY@0900 01/25/19 01/31/20 History Primidone [Mysoline] 100 mg PO DAILY@1800 01/25/19 01/31/20 History Albuterol Inhaler [Ventolin Hfa 2 puff INHALATION RT-QID PRN 10/19/19 01/31/20 History Inhaler] Folic Acid(Unknown Dose) 1 tab PO DAILY@1500 10/19/19 01/31/20 History Vitamin B-12(Unknown Dose) 1 tab PO DAILY@1500 10/19/19 01/31/20 History Furosemide [Lasix] 40 mg PO DAILY@0900 12/24/19 01/31/20 History Denosumab [Prolia] 60 mg SQ Q180D 01/23/20 01/31/20 History Apixaban [Eliquis] 2.5 mg PO BID #60 tablet 01/26/20 01/31/20 Rx Metoprolol Succinate (ER) [Toprol 50 mg PO DAILY #60 tab.er.24h 01/26/20 01/31/20 Rx XL] Allergies Allergy/AdvReac Type Severity Reaction Status Date / Time albuterol [From DuoNeb] AdvReac Nausea Verified 01/31/20 19:17 cortisone AdvReac PAIN Verified 01/31/20 19:17 hydrocodone AdvReac Nausea Verified 01/31/20 19:17 ipratropium [From DuoNeb] AdvReac Nausea Verified 01/31/20 19:17 procaine HCl [From Novocain] AdvReac pain Verified 01/31/20 19:17 allergy medicines AdvReac "dries me Uncoded 01/31/20 16:48 out, bloody noses,generalized pain" Physical Exam Vitals: Vital Signs Temp Pulse Pulse Resp BP BP Pulse Ox 02/01/20 12:05 112 H 18 125/80 02/01/20 12:00 108 H 18 02/01/20 11:56 105 H 18 109/79 97 02/01/20 07:48 118 H 18 02/01/20 07:37 98.2 F 118 H 18 121/79 93 L 02/01/20 06:00 96 18 107/62 95 01/31/20 22:31 87 18 106/62 94 L 01/31/20 21:00 94 18 98/56 93 L 01/31/20 20:43 112 H 18 125/73 94 L 01/31/20 19:40 115 H 18 130/79 93 L 01/31/20 18:47 98.1 F 116 H 16 130/79 97 01/31/20 16:46 98.2 F 118 H 18 121/80 97 Intake and Output 01/31/20 02/01/20 02/01/20 22:59 06:59 14:59 Intake Total 3.917 Output Total 165 800 Balance -161.083 -800 Intake: Intake, IV Titration 3.917 Amount Diltiazem 125 mg In 3.917 Sodium Chloride 0.9% 100 ml @ 5 MG/HR 5 mls/hr IV .Q24H [facility] Rx#:[id number] Output: Urine 800 Post Void Residual 165 Other: Voiding Method Toilet Bedside Commode # Voids 4 1 # Bowel Movements 2 Weight 86.636 kg 86.636 kg Results 02/01/20 08:05 02/01/20 08:05 Cardiac Enzymes 01/31/20 01/31/20 Range/Units 17:30 18:10 AST 39 H (14-36) U/L Troponin I <0.012 (0.000-0.034) ng/mL Coagulation 01/31/20 Range/Units 17:30 PT 10.2 (9.0-12.0) sec APTT 26.3 (22.0-30.0) sec CBC 01/31/20 02/01/20 Range/Units 17:30 08:05 WBC 4.3 4.0 (3.8-10.6) k/uL RBC 3.11 L 3.04 L (3.80-5.40) m/uL Hgb 10.3 L 9.8 L (11.4-16.0) gm/dL Hct 32.2 L 31.0 L (34.0-46.0) % Plt Count 179 177 (150-450) k/uL Comprehensive Metabolic Panel 01/31/20 02/01/20 Range/Units 17:30 08:05 Sodium 132 L 129 L (137-145) mmol/L Potassium 4.9 4.9 (3.5-5.1) mmol/L Chloride 98 99 (98-107) mmol/L Carbon Dioxide 20 L 20 L (22-30) mmol/L BUN 40 H 36 H (7-17) mg/dL Creatinine 1.58 H 1.36 H (0.52-1.04) mg/dL Glucose 131 H 141 H (74-99) mg/dL Calcium 5.7 L* 5.4 L* (8.4-10.2) mg/dL AST 39 H (14-36) U/L ALT 28 (4-34) U/L Alkaline Phosphatase 148 H (38-126) U/L Total Protein 7.9 (6.3-8.2) g/dL Albumin 4.2 (3.5-5.0) g/dL Current Medications Generic Name Dose Route Start Last Admin Trade Name Freq PRN Reason Stop Dose Admin Albuterol Sulfate 2.5 mg 01/31/20 20:12 Albuterol Nebulized 2.5 Mg/3 Ml INHALATION RT-QID PRN Shortness Of Breath Apixaban 2.5 mg 01/31/20 21:00 02/01/20 11:54 Apixaban 2.5 Mg Tablet PO 2.5 mg BID TODD Administration Aspirin 81 mg 02/01/20 09:00 02/01/20 11:54 Aspirin 81 Mg PO 81 mg DAILY@0900 TODD Administration Atorvastatin Calcium 10 mg 02/01/20 18:00 Atorvastatin 10 Mg Tab PO DAILY@1800 [facility] Colchicine 0.6 mg 02/01/20 10:17 02/01/20 11:55 Colchicine 0.6 Mg Each PO 0.6 mg BID@0900,1800 [facility] Administration Cyanocobalamin 500 mcg 02/01/20 15:00 Cyanocobalamin 500 Mcg Tab PO DAILY@1500 [facility] Ezetimibe 10 mg 02/01/20 18:00 Ezetimibe 10 Mg Tab PO DAILY@1800 [facility] Folic Acid 1 mg 02/01/20 15:00 Folic Acid 1 Mg Tab PO DAILY@1500 [facility] Furosemide 40 mg 02/01/20 09:00 02/01/20 11:54 Furosemide 40 Mg Tab PO 40 mg DAILY@0900 [facility] Administration Gabapentin 100 mg 01/31/20 22:00 02/01/20 11:54 Gabapentin 100 Mg Cap PO 100 mg TID TODD Administration Diltiazem HCl 125 mg/ Sodium 125 mls @ 5 mls/hr 01/31/20 19:45 01/31/20 20:44 Chloride IV 10 mg/hr .Q24H TODD 10 mls/hr Infusion 5 MG/HR Amiodarone HCl 360 mg/ 200 mls @ 33.333 mls/hr 02/01/20 10:30 02/01/20 12:22 Dextrose/Water IV 02/01/20 16:29 1 mg/min .Q6H ONE 33.333 mls/hr Administration Protocol 1 MG/MIN Amiodarone HCl 300 mg/ 250 mls @ 25 mls/hr 02/01/20 16:30 Dextrose/Water IV 02/02/20 10:29 .Q10H [facility] Protocol 0.5 MG/MIN Insulin Aspart 0 unit 02/01/20 07:30 02/01/20 12:36 Insulin Aspart (Novolog) 100 Unit/Ml Vial SQ 2 unit ACHS [facility] Administration Protocol Naloxone HCl 0.2 mg 01/31/20 20:07 Naloxone 0.4 Mg/Ml 1 Ml Vial IV Q2M PRN Opioid Reversal Primidone 50 mg 02/01/20 09:00 02/01/20 11:54 Primidone 50 Mg Tab PO 50 mg DAILY@0900 [facility] Administration Primidone 100 mg 02/01/20 18:00 Primidone 50 Mg Tab PO DAILY@1800 [facility] Intake and Output 01/31/20 02/01/20 02/01/20 22:59 06:59 14:59 Intake Total 3.917 Output Total 165 800 Balance -161.083 -800 Intake: Intake, IV Titration 3.917 Amount Diltiazem 125 mg In 3.917 Sodium Chloride 0.9% 100 ml @ 5 MG/HR 5 mls/hr IV .Q24H [facility] Rx#:[id number] Output: Urine 800 Post Void Residual 165 Other: Voiding Method Toilet Bedside Commode # Voids 4 1 # Bowel Movements 2 Weight 86.636 kg 86.636 kg Patient Weight 02/02/20 06:59 Weight 86.636 kg 02/01/20 08:05 02/01/20 08:05
[2020-02-01] MEDS: FOLIC ACID 1 MG TAB PO SCH (15:43)
[2020-02-01] MEDS: METOPROLOL SUCCINATE (ER) 50 MG TAB.ER.24H PO SCH (15:43)
[2020-02-01] MEDS: CYANOCOBALAMIN 500 MCG TAB PO SCH (15:43)
[2020-02-01 16:29] LABS: Glucose,Whole Blood 194 mg/dL (75-99)
[2020-02-01] MEDS: EZETIMIBE 10 MG TAB PO SCH (18:18)
[2020-02-01] MEDS: AMIODARONE 300 MG in DEXTROSE 5% IN WATER 250 ML IV SCH ×2 (18:18)
[2020-02-01] MEDS: ATORVASTATIN 10 MG TAB PO SCH (18:19)
[2020-02-01 20:08] LABS: Glucose,Whole Blood 168 mg/dL (75-99)
--- NOTE | 2020-02-01 20:50 | P.HPIM ---
History of Present Illness H&P Date: 02/01/20 Chief Complaint: Increased heart rate History of presenting complaint: This is a pleasant 79-year-old patient of Dr. Greg Kline. Chronic stable medical conditions include COPD, diabetes, hyperlipidemia, hypertension, parkinsonism, sleep apnea, coronary artery disease with prior bypass. CHF combined with systolic and diastolic dysfunction EF 45-50%. Normally lives alone and gets uses a walker to get about. January 23 through January 25 with hyperkalemia and atrial flutter with a rapid ventricular rate. Currently sinus rhythm. Discharged patient had gone to her family doctor yesterday. Unable to make urine. Sent to the ER. Bladder scan showed about 40 mL of urine and a Cuevas was placed. Patient was discovered to be in atrial flutter with a rapid ventricular rate. No chest pain or palpitation no dizziness no lightheadedness. Patient's place of the [facility] drip and admitted. Appetite is fair. Review of systems: GEN.: Tired EYES: None HEENT: None NECK: None RESPIRATORY: Mild shortness of breath CARDIOVASCULAR: None GASTROINTESTINAL: None GENITOURINARY: None MUSCULOSKELETAL: Joint pains LYMPHATICS: None HEMATOLOGICAL: None PSYCHIATRY: None NEUROLOGICAL: Uses a walker Past medical history to include: Atrial flutter, a cheilosis lower extremity, severe secondary pulmonary hypertension, moderate to severe tricuspid regurgitation, diabetes mellitus type 2 with peripheral neuropathy, obesity, hyperlipidemia, hypertension, coronary artery disease with prior bypass, chronic kidney disease stage III, gait dysfunction uses a walker Social history: Uses a walker. 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 Lives at [facility]. Patient smoked for 61 years stopped in 2012. No alcohol. Physical examination: VITAL SIGNS: 98.2, 118, 18, 121/80, 97% room air-upon presentation GENERAL: BMI 34.9, sitting on a chair, not in distress EYES: Pupils equal. Conjunctiva normal. HEENT: External appearance of nose and ears normal, oral cavity grossly normal. Scant scalp hair NECK: JVD not raised; masses not palpable. HEART: Irregular heart beat; edema present LUNGS: Respiratory rate increased, diminished breath sounds ABDOMEN: Soft, nontender, liver spleen not palpable, no masses palpable. PSYCH: Alert and oriented x3; mood and affect normal. DERMATOLOGICAL: Dry skin, with dystrophic nails. INVESTIGATIONS, reviewed in the clinical context: White count 4.3 hemoglobin 10.3 platelets 179 potassium 4.9 bun 40 creatinine 1.58 Assessment: -Paroxysmal atrial flutter, presenting with a rapid ventricular rate, POA -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 -Moderate severe tricuspid regurgitation -Diabetes mellitus type 2 with diabetic peripheral neuropathy -Obesity BMI 39 -Hyperlipidemia -Essential hypertension -Coronary artery disease with prior history of bypass -Chronic kidney disease stage III from diabetic nephropathy and hypertensive nephrosclerosis. Patient does not have acute kidney injury. -Chronic gait dysfunction does use a walker -Urine outflow obstruction Plan: Patient is put on amiodarone drip. Eliquis. Cardizem drip was discontinued. Other medications to continue. Discussed with patient. Add Flomax. Past Medical History Past Medical History: COPD, Diabetes Mellitus, Hyperlipidemia, Hypertension, Myocardial Infarction ([place]), Sleep Apnea/CPAP/BIPAP Additional Past Medical History / Comment(s): tremors,NO left arm blood draw or blood pressure(vessel harvested for CABG), blockages in angelica legs, Coonstipation, gout, PAD Last Myocardial Infarction Date:: 1999 History of Any Multi-Drug Resistant Organisms: None Reported Past Surgical History: Appendectomy, Coronary Bypass/CABG, Heart Catheterization, Hysterectomy, Tonsillectomy Additional Past Surgical History / Comment(s): angiogram. Right neck lymphnode removal Past Anesthesia/Blood Transfusion Reactions: No Reported Reaction Past Psychological History: No Psychological Hx Reported Smoking Status: Former smoker Past Alcohol Use History: None Reported Past Drug Use History: None Reported - Past Family History Mother Family Medical History: COPD, Myocardial Infarction ([place]) Brother(s) Family Medical History: Cancer Additional Family Medical History / Comment(s): LUNG CANCER Son(s) Family Medical History: Cancer Additional Family Medical History / Comment(s): COLON CANCER Sister(s) Family Medical History: Cancer Additional Family Medical History / Comment(s): (2) SISTERS HAD BREAST CANCER. Medications and Allergies Home Medications Medication Instructions Recorded Confirmed Type Ezetimibe [Zetia] 10 mg PO DAILY@1800 11/20/13 01/31/20 History Lovastatin [Mevacor] 10 mg PO DAILY@1800 11/20/13 01/31/20 History sitaGLIPtin PHOS/metFORMIN HCL 1 tab PO BID 08/20/16 01/31/20 History [Janumet 50-1,000 mg Tablet] Aspirin EC [Ecotrin Low Dose] 81 mg PO DAILY@0900 01/25/19 01/31/20 History Colchicine [Colcrys] 0.6 mg PO BID@0900,1800 01/25/19 01/31/20 History Gabapentin [Neurontin] 100 mg PO TID 01/25/19 01/31/20 History Primidone [Mysoline] 50 mg PO DAILY@0900 01/25/19 01/31/20 History Primidone [Mysoline] 100 mg PO DAILY@1800 01/25/19 01/31/20 History Albuterol Inhaler [Ventolin Hfa 2 puff INHALATION RT-QID PRN 10/19/19 01/31/20 History Inhaler] Folic Acid(Unknown Dose) 1 tab PO DAILY@1500 10/19/19 01/31/20 History Vitamin B-12(Unknown Dose) 1 tab PO DAILY@1500 10/19/19 01/31/20 History Furosemide [Lasix] 40 mg PO DAILY@0900 12/24/19 01/31/20 History Denosumab [Prolia] 60 mg SQ Q180D 01/23/20 01/31/20 History Apixaban [Eliquis] 2.5 mg PO BID #60 tablet 01/26/20 01/31/20 Rx Metoprolol Succinate (ER) [Toprol 50 mg PO DAILY #60 tab.er.24h 01/26/20 01/31/20 Rx XL] Allergies Allergy/AdvReac Type Severity Reaction Status Date / Time albuterol [From DuoNeb] AdvReac Nausea Verified 01/31/20 19:17 cortisone AdvReac PAIN Verified 01/31/20 19:17 hydrocodone AdvReac Nausea Verified 01/31/20 19:17 ipratropium [From DuoNeb] AdvReac Nausea Verified 01/31/20 19:17 procaine HCl [From Novocain] AdvReac pain Verified 01/31/20 19:17 allergy medicines AdvReac "dries me Uncoded 01/31/20 16:48 out, bloody noses,generalized pain" Physical Exam Vitals: Vital Signs Temp Pulse Pulse Resp BP BP Pulse Ox 02/01/20 07:48 118 H 18 02/01/20 07:37 98.2 F 118 H 18 121/79 93 L 10/23/20 06:00 96 18 107/62 95 01/31/20 22:31 87 18 106/62 94 L 01/31/20 21:00 94 18 98/56 93 L 01/31/20 20:43 112 H 18 125/73 94 L 01/31/20 19:40 115 H 18 130/79 93 L 01/31/20 18:47 98.1 F 116 H 16 130/79 97 01/31/20 16:46 98.2 F 118 H 18 121/80 97 Intake and Output 01/31/20 02/01/20 02/01/20 22:59 06:59 14:59 Intake Total 3.917 Output Total 165 Balance -161.083 Intake: Intake, IV Titration 3.917 Amount Diltiazem 125 mg In 3.917 Sodium Chloride 0.9% 100 ml @ 5 MG/HR 5 mls/hr IV .Q24H [facility] Rx#:[id number] Output: Post Void Residual 165 Other: Voiding Method Toilet Bedside Commode Weight 86.636 kg Results CBC & Chem 7: 02/01/20 08:05 02/01/20 08:05 Labs: Abnormal Lab Results - Last 24 Hours (Table) 01/31/20 01/31/20 01/31/20 Range/Units 17:20 17:30 17:30 RBC 3.11 L (3.80-5.40) m/uL Hgb 10.3 L (11.4-16.0) gm/dL Hct 32.2 L (34.0-46.0) % MCV 103.6 H (80.0-100.0) fL RDW 16.2 H (11.5-15.5) % Lymphocytes # 0.9 L (1.0-4.8) k/uL Sodium 132 L (137-145) mmol/L Carbon Dioxide 20 L (22-30) mmol/L BUN 40 H (7-17) mg/dL Creatinine 1.58 H (0.52-1.04) mg/dL Glucose 131 H (74-99) mg/dL POC Glucose (mg/dL) (75-99) mg/dL Plasma Lactic Acid Roderick (0.7-2.0) mmol/L Calcium 5.7 L* (8.4-10.2) mg/dL AST 39 H (14-36) U/L Alkaline Phosphatase 148 H (38-126) U/L Urine Protein Trace H (Negative) 01/31/20 01/31/20 02/01/20 Range/Units 17:30 21:26 08:05 RBC 3.04 L (3.80-5.40) m/uL Hgb 9.8 L (11.4-16.0) gm/dL Hct 31.0 L (34.0-46.0) % MCV 102.3 H (80.0-100.0) fL RDW 16.7 H (11.5-15.5) % Lymphocytes # 0.9 L (1.0-4.8) k/uL Sodium (137-145) mmol/L Carbon Dioxide (22-30) mmol/L BUN (7-17) mg/dL Creatinine (0.52-1.04) mg/dL Glucose (74-99) mg/dL POC Glucose (mg/dL) 207 H (75-99) mg/dL Plasma Lactic Acid Roderick 2.6 H* (0.7-2.0) mmol/L Calcium (8.4-10.2) mg/dL AST (14-36) U/L Alkaline Phosphatase (38-126) U/L Urine Protein (Negative) 02/01/20 02/01/20 Range/Units 08:05 08:09 RBC (3.80-5.40) m/uL Hgb (11.4-16.0) gm/dL Hct (34.0-46.0) % MCV (80.0-100.0) fL RDW (11.5-15.5) % Lymphocytes # (1.0-4.8) k/uL Sodium 129 L (137-145) mmol/L Carbon Dioxide 20 L (22-30) mmol/L BUN 36 H (7-17) mg/dL Creatinine 1.36 H (0.52-1.04) mg/dL Glucose 141 H (74-99) mg/dL POC Glucose (mg/dL) 159 H (75-99) mg/dL Plasma Lactic Acid Roderick (0.7-2.0) mmol/L Calcium 5.4 L* (8.4-10.2) mg/dL AST (14-36) U/L Alkaline Phosphatase (38-126) U/L Urine Protein (Negative)
[2020-02-02] MEDS: AMIODARONE 300 MG in DEXTROSE 5% IN WATER 250 ML IV SCH ×2 (02:35)
[2020-02-02 06:10] LABS: Glucose,Whole Blood 177 mg/dL (75-99)
[2020-02-02] MEDS: INSULIN ASPART (NovoLOG) 100 UNIT/ML VIAL SQ SCH ×4 (06:22→20:43)
[2020-02-02] MEDS: COLCHICINE 0.6 MG EACH PO SCH ×2 (08:10→17:21)
[2020-02-02] MEDS: GABAPENTIN 100 MG CAP PO SCH ×3 (08:11→20:42)
[2020-02-02] MEDS: TAMSULOSIN 0.4 MG CAP.ER.24H PO SCH (08:12)
[2020-02-02] MEDS: PRIMIDONE 50 MG TAB PO SCH ×2 (08:12→17:22)
[2020-02-02] MEDS: METOPROLOL SUCCINATE (ER) 50 MG TAB.ER.24H PO SCH (08:13)
[2020-02-02] MEDS: APIXABAN 2.5 MG TABLET PO SCH ×2 (08:13→20:43)
[2020-02-02] MEDS: ASPIRIN 81 MG PO SCH (08:13)
[2020-02-02] MEDS: FUROSEMIDE 40 MG TAB PO SCH (08:13)
[2020-02-02 11:41] LABS: Glucose,Whole Blood 190 mg/dL (75-99)
[2020-02-02] MEDS ORDERED: BENZOCAINE SPRAY 1 CAN MUCOUS MEM ONE (12:40)
[2020-02-02] MEDS ORDERED: SODIUM CHLORIDE 0.9% 1,000 ML IV ONE (13:10)
--- NOTE | 2020-02-02 13:15 | CE ---
CARDIAC ELECTROPHYSIOLOGY REPORT DATE OF SERVICE: January 31, 2020 PERFORMING PHYSICIAN: All Burnett MD. PROCEDURE PERFORMED: Cardioversion. INDICATION: This is an 82-year-old female patient who was admitted to the hospital with shortness of breath and she was diagnosed with atrial fibrillation with RVR. Medications were tried and the patient continues to be in fast heart rate and because of that a BETHEL and cardioversion was advised. COMPLICATIONS: None. LEVEL OF SEDATION: The procedure was performed using propofol with TILE DITCHER and anesthesiologist in the room. PROCEDURE DESCRIPTION: After a transesophageal echocardiogram and intracardiac thrombus was ruled out, we pursued with the cardioversion. The patient cardioverted from atrial flutter into normal sinus mechanism using 50 joules on first attempt. CONCLUSION: Successful cardioversion of atrial fibrillation to normal sinus mechanism using 50 joules on first attempt. MMODL / IJN: [id number] /
--- NOTE | 2020-02-02 13:30 | ECHOT ---
TRANSESOPHAGEAL ECHOCARDIOGRAM DATE OF SERVICE: January 31, 2020 PERFORMING PHYSICIAN: All Burnett MD. PROCEDURE PERFORMED: Transesophageal echocardiogram. INDICATION: Rule out intracardiac thrombus. COMPLICATION: None. LEVEL OF SEDATION: Deep sedation was performed using propofol. PROCEDURE DESCRIPTION: After obtaining an informed consent, the patient was brought to the recovery room. A pulse oximetry and heart rate monitors were attached to the patient. Subsequently, the patient was turned into left lateral position. After that, I did advance the transesophageal echocardiogram probe to the mid esophageal where 2D echocardiogram images as well as color Doppler images of various cardiac structures were obtained. Particular attention was made to the left atrial appendage. The study was technically somewhat difficult and was completed without any complication. FINDINGS: The left ventricular systolic function appeared to be impaired with EF around 35-40 percent. The right ventricle appeared to be dilated. Both atrium appeared to be severely dilated. The interatrial septum appeared to be very thick. The aortic valve appeared to be thickened and calcified without stenosis and without any insufficiency. Please note that the aortic valve also was not well visualized. The mitral valve seems to be thickened with evidence of moderate to severe mitral regurgitation. There was evidence of severe tricuspid regurgitation seen. The left atrial appendage was also very difficult to visualize, but there was no evidence of thrombus seen. CONCLUSION: 1. Normal left atrial appendage without any evidence of thrombus. 2. Severe biatrial enlargement. 3. Thickened aortic valve leaflets without stenosis or regurgitation. 4. Thickened mitral valve leaflets with moderate to severe MR. 5. Torrential tricuspid regurgitation. 6. Impaired LV function with EF around 35%. 7. No evidence of pericardial effusion. MMODL / IJN: [id number] /
--- NOTE | 2020-02-02 15:29 | PN ---
PROGRESS NOTE Mrs Navarro was in atrial flutter with a 3 to 1 block. She underwent a BETHEL and electrical cardioversion. She has significant LV dysfunction with valve regurgitation that is quite bad. Cardioversion resulted in her converting sinus rhythm and then she went back into atrial tachycardia. Hemodynamically stable, resting comfortably. Prognosis remains poor. Vital signs stable. JVD 1 cm. No carotid bruit. S1-S2 heard normally. Short systolic murmur noted lungs reveal diminished air entry over bases. Abdomen and lower exam otherwise are unchanged. MMODL / IJN: [id number] /
[2020-02-02] MEDS: CYANOCOBALAMIN 500 MCG TAB PO SCH (16:12)
[2020-02-02] MEDS: FOLIC ACID 1 MG TAB PO SCH (16:12)
[2020-02-02 16:48] LABS: Glucose,Whole Blood 216 mg/dL (75-99)
[2020-02-02] MEDS: EZETIMIBE 10 MG TAB PO SCH (17:21)
[2020-02-02] MEDS: ATORVASTATIN 10 MG TAB PO SCH (17:21)
[2020-02-02] MEDS: CALCIUM CARB-VIT D 500MG-200UN 1 EACH TAB PO SCH (18:38)
[2020-02-02 18:44] LABS: Potassium 5.1 mmol/L (3.5-5.1)
[2020-02-02 18:48] LABS: Calcium 5.3 mg/dL (8.4-10.2)
--- NOTE | 2020-02-02 18:51 | PN ---
PROGRESS NOTE DATE OF SERVICE: 02/02/2020 This 79-year-old woman was admitted with paroxysmal atrial flutter with rapid ventricular rate. The patient underwent a BETHEL and as well as cardioversion by Dr. Burnett this morning for atrial fibrillation with rapid ventricular rate. Sinus mechanism was noted after cardioversion. Patient closely monitored. Past medical history reviewed. REVIEW OF SYSTEMS: Cardiovascular system as mentioned earlier. RESPIRATORY as mentioned earlier. GI: As mentioned earlier. : No dysuria. CURRENT MEDICATIONS: Reviewed and include: 1. Ventolin. 2. Cordarone. 3. Eliquis. 4. Aspirin. 5. Lipitor. 6. Colcrys. 7. Vitamin B12. 8. Zetia. 9. Folic acid. 10.Lasix. 11.Doses are reviewed. PHYSICAL EXAM: Patient is alert, oriented x2. Pulse is 95, blood pressure 123/66, respiration 18, temperature 97.4, pulse ox is normal. HEENT: Conjunctivae normal. Oral mucosa moist. NECK is no jugular venous distention. No carotid bruit. No lymph node enlargement. CARDIOVASCULAR system: S1, S2 muffled. RESPIRATION: Breath sounds diminished in the bases. A few scattered rhonchi and crackles. ABDOMEN: Soft, nontender. No mass palpable. LEGS: No edema. No swelling. NERVOUS SYSTEM: No focal deficits. LABS: Glucose 216, hemoglobin 9.8, sodium 129. ASSESSMENT: 1. Atrial fibrillation with fast ventricular rate, status post cardioversion and BETHEL. 2. Bilateral lower extremity edema 3. Secondary pulmonary hypertension. 4. Moderate to severe tricuspid regurgitation. 5. Diabetes mellitus type 2. 6. Diabetic peripheral neuropathy. 7. Obesity. 8. Hyperlipidemia. 9. Hypertension. 10.History of coronary artery disease, coronary artery bypass grafting. 11.Chronic kidney disease stage 3. 12.Chronic gait dysfunction. 13.Urinary outflow obstruction. 14.Hyponatremia. 15.Increased creatinine with possibly chronic kidney disease stage 3. 16.Hypocalcemia. RECOMMENDATIONS AND DISCUSSION: This 79-year-old woman who presented with multiple complex medical issues, we will monitor the patient closely, continue the current medications, management and symptomatic treatment. Otherwise at this time I would recommend calcium supplementation and continue to monitor CBC and BMP. Continue the rest of medications. Guarded prognosis. Further recommendations to follow. MMODL / IJN: [id number] / MTDD
[2020-02-02 19:43] LABS: Glucose,Whole Blood 202 mg/dL (75-99)
[2020-02-02] MEDS: AMIODARONE 200 MG TAB PO SCH (20:41)
[2020-02-02] MEDS: metFORMIN 500 MG TAB PO SCH (20:41)
[2020-02-02] MEDS: LINAGLIPTIN 5 MG TABLET PO SCH (20:42)
[2020-02-02] MEDS ORDERED: NON FORMULARY DRUG (Sitagliptin Phos/Metformin Hcl [Janumet 50-1,000 Mg Tablet] 1 EACH Tab PO SCH (21:00)
[2020-02-03 06:05] LABS: Glucose,Whole Blood 149 mg/dL (75-99)
[2020-02-03] MEDS: CALCIUM CARB-VIT D 500MG-200UN 1 EACH TAB PO SCH ×3 (06:36→17:31)
[2020-02-03] MEDS: INSULIN ASPART (NovoLOG) 100 UNIT/ML VIAL SQ SCH ×4 (06:36→20:41)
[2020-02-03 07:06] LABS: Anisocytosis Slight; Basophils % (A) 0 %; Eosinophils # (A) 0.7 k/uL (0-0.7); Eosinophils % (A) 11 %; HGB 9.6 gm/dL (11.4-16.0); Hypochromasia Moderate; Lymphocytes # (A) 1.2 k/uL (1.0-4.8); Lymphocytes % (A) 20 %; MCH 33.5 pg (25.0-35.0); MCHC 32.1 g/dL (31.0-37.0); MCV 104.3 fL (80.0-100.0); Macrocytosis Moderate; Mean Platelet Volume 7.8; Monocytes # (A) 0.5 k/uL (0-1.0); Monocytes % (A) 8 %; Neutrophils # (A) 3.5 k/uL (1.3-7.7); Neutrophils % (A) 58 %; Platelet Count 179 k/uL (150-450); RBC 2.87 m/uL (3.80-5.40); RDW 16.5 % (11.5-15.5); WBC 6.1 k/uL (3.8-10.6)
[2020-02-03 07:16] LABS: Potassium 5.1 mmol/L (3.5-5.1)
[2020-02-03 07:26] LABS: Calcium 5.6 mg/dL (8.4-10.2)
[2020-02-03] MEDS: METOPROLOL SUCCINATE (ER) 50 MG TAB.ER.24H PO SCH (09:39)
[2020-02-03] MEDS: FUROSEMIDE 40 MG TAB PO SCH (09:39)
[2020-02-03] MEDS: TAMSULOSIN 0.4 MG CAP.ER.24H PO SCH (09:39)
[2020-02-03] MEDS: PRIMIDONE 50 MG TAB PO SCH ×2 (09:39→17:32)
[2020-02-03] MEDS: AMIODARONE 200 MG TAB PO SCH ×2 (09:39→20:40)
[2020-02-03] MEDS: ASPIRIN 81 MG PO SCH (09:40)
[2020-02-03] MEDS: COLCHICINE 0.6 MG EACH PO SCH ×2 (09:40→17:32)
[2020-02-03] MEDS: GABAPENTIN 100 MG CAP PO SCH ×3 (09:40→20:40)
[2020-02-03] MEDS: metFORMIN 500 MG TAB PO SCH (09:40)
[2020-02-03] MEDS: APIXABAN 2.5 MG TABLET PO SCH ×2 (09:41→20:40)
--- NOTE | 2020-02-03 10:26 | PN ---
PROGRESS NOTE Mrs Navarro underwent electrical cardioversion and BETHEL. She has significant valvular regurgitation and she converted to sinus rhythm briefly and now she is in atrial fibrillation, more stable rhythm. Tolerating better. Rate is well controlled. She is well anticoagulated which we will continue. Vitals are stable. JVD is 1 cm. No carotid bruit. S1-S2 heard normally. Short systolic murmur is audible at the base and left sternal border. Lungs reveal improved entry. Abdomen and lower extremity exam unchanged. Plan is to continue medications and also seek a social service consult mainly because she is unable to live on her own at home. She lives alone in an apartment. She will need some further help. We will therefore look at options in terms of discharge planning to a safe place. Patient has multiple comorbid conditions including peripheral artery disease and she will see Dr. Burnett upon discharge in one week or so. I explained to the patient that we will seek social service consult. She is agreeable. MMSARAH / MARTHAN: [id number] /
[2020-02-03 11:40] LABS: Glucose,Whole Blood 198 mg/dL (75-99)
--- NOTE | 2020-02-03 16:02 | PN ---
PROGRESS NOTE DATE OF SERVICE: February 03, 2020. This 79-year-old woman who was admitted with atrial fibrillation, fast ventricular rate had cardioversion. The patient still has persistent atrial fibrillation. No chest pain. No palpitations. No fever. The patient is complaining of significant weakness. The patient has significant valvular regurgitation. The patient is currently in sinus rhythm for some time but currently the patient's atrial fibrillation back again. MEDICATIONS: Reviewed and include : 1. Ventolin. 2. Cordarone. 3. Aspirin. 4. Lipitor. 5. Os-Shen with vitamin D. 6. Colcrys. 7. Zetia. 8. Folic acid. 9. Neurontin. 10.Tradjenta. 11.Narcan. 12.Mysoline. 13.Flomax. REVIEW OF SYSTEMS: CARDIOVASCULAR SYSTEM: As mentioned earlier. RESPIRATIONS: As mentioned earlier. GI as mentioned earlier. : No dysuria. Nervous systems: No numbness or weakness. PHYSICAL EXAMINATION: Alert and oriented x3. Pulse is 101, irregular. Blood pressure 120/62, respiration 20, temperature 96.1, pulse ox 94% on room air. HEENT: Conjunctivae normal. Neck: No JVD. CARDIOVASCULAR: S1, S2 muffled, irregular. Respirations: Breath sounds diminished in the bases. ABDOMEN: Soft. NERVOUS SYSTEM: No focal deficits. LABS: WBC 6.2, hemoglobin 9.1, sodium 124, potassium 5.1 and calcium is 5.6. ASSESSMENT: 1. Atrial fibrillation with fast ventricular rate, status post cardioversion and BETHEL. 2. Bilateral lower extremity edema. 3. Secondary pulmonary hypertension. 4. Moderate to severe tricuspid regurgitation. 5. Diabetes mellitus type 2. 6. Diabetic peripheral neuropathy. 7. Obesity. 8. Hyperlipidemia. 9. Hypertension. 10.History of coronary artery disease, coronary artery bypass grafting. 11.Chronic kidney stage 3. 12.Chronic gait dysfunction. 13.Urinary tract infection. 14.Hyponatremia. 15.Hypocalcemia, severe. 16.Increased creatinine with possible chronic kidney disease stage 3. RECOMMENDATIONS AND DISCUSSION: This 79-year-old woman who presented with multiple complex medical issues, we will monitor the patient closely, continue the current management and symptomatic treatment. I would recommend consultation with Dr. Roth. Also recommend serum phosphorus and as well as parathyroid levels also. The alkaline phosphatase levels are mildly elevated 148, normal is 126. Once again, the prognosis guarded. The possibilities such as hypoparathyroidism needs to be ruled out. Further recommendations to follow. MMODL / IJN: [id number] /
[2020-02-03 16:43] LABS: Glucose,Whole Blood 226 mg/dL (75-99)
[2020-02-03] MEDS: ATORVASTATIN 10 MG TAB PO SCH (17:31)
[2020-02-03] MEDS: FOLIC ACID 1 MG TAB PO SCH (17:31)
[2020-02-03] MEDS: CYANOCOBALAMIN 500 MCG TAB PO SCH (17:31)
[2020-02-03] MEDS: EZETIMIBE 10 MG TAB PO SCH (17:31)
[2020-02-03 20:03] LABS: Glucose,Whole Blood 145 mg/dL (75-99)
[2020-02-03] MEDS: LINAGLIPTIN 5 MG TABLET PO SCH (20:40)
[2020-02-03] MEDS: CALCIUM GLUCONATE 1 GM in SODIUM CHLORIDE 0.9% 100 ML IVPB SCH (20:40)
[2020-02-04 06:28] LABS: Glucose,Whole Blood 153 mg/dL (75-99)
[2020-02-04] MEDS: CALCIUM CARB-VIT D 500MG-200UN 1 EACH TAB PO SCH ×3 (06:35→17:07)
[2020-02-04] MEDS: INSULIN ASPART (NovoLOG) 100 UNIT/ML VIAL SQ SCH ×4 (06:36→20:54)
[2020-02-04 07:58] LABS: Anisocytosis Slight; Basophils % (A) 1 %; Eosinophils # (A) 0.5 k/uL (0-0.7); Eosinophils % (A) 12 %; HCT 31.1 % (34.0-46.0); HGB 9.7 gm/dL (11.4-16.0); Hypochromasia Moderate; Lymphocytes # (A) 0.9 k/uL (1.0-4.8); Lymphocytes % (A) 22 %; MCH 32.4 pg (25.0-35.0); MCHC 31.2 g/dL (31.0-37.0); MCV 103.7 fL (80.0-100.0); Macrocytosis Moderate; Monocytes # (A) 0.3 k/uL (0-1.0); Monocytes % (A) 7 %; Neutrophils # (A) 2.4 k/uL (1.3-7.7); Neutrophils % (A) 56 %; Platelet Count 163 k/uL (150-450); RDW 16.4 % (11.5-15.5); WBC 4.2 k/uL (3.8-10.6)
[2020-02-04 08:19] LABS: Calcium 6.8 mg/dL (8.4-10.2); Potassium 4.7 mmol/L (3.5-5.1)
[2020-02-04] MEDS: TAMSULOSIN 0.4 MG CAP.ER.24H PO SCH (09:09)
[2020-02-04] MEDS: AMIODARONE 200 MG TAB PO SCH (09:09)
[2020-02-04] MEDS: ASPIRIN 81 MG PO SCH (09:09)
[2020-02-04] MEDS: APIXABAN 2.5 MG TABLET PO SCH ×2 (09:09→20:13)
[2020-02-04] MEDS: CALCIUM GLUCONATE 1 GM in SODIUM CHLORIDE 0.9% 100 ML IVPB SCH ×2 (09:09→20:56)
[2020-02-04] MEDS: COLCHICINE 0.6 MG EACH PO SCH ×2 (09:10→17:08)
[2020-02-04] MEDS: FUROSEMIDE 40 MG TAB PO SCH (09:10)
[2020-02-04] MEDS: GABAPENTIN 100 MG CAP PO SCH ×3 (09:10→20:13)
[2020-02-04] MEDS: METOPROLOL SUCCINATE (ER) 50 MG TAB.ER.24H PO SCH (09:10)
[2020-02-04] MEDS: PRIMIDONE 50 MG TAB PO SCH ×2 (09:10→17:08)
[2020-02-04] MEDS ORDERED: METOPROLOL SUCCINATE (ER) 25 MG TAB.ER.24H PO STA (09:18)
--- NOTE | 2020-02-04 09:28 | P.PN ---
Subjective This is a pleasant 7 years old female with multiple medical problems as below, she is being admitted to the hospital on 01/31 for A. fib with RVR, status post cardioversion with persistent atrial fibrillation, also she has moderate to severe tricuspid regurgitation, chronic kidney disease and hyponatremia and hypocalcemia. Patient is been followed closely by cardiology service and she is currently on Eliquis 2.5 mg twice a day for renal dosing. Nephrology service has been consulted yesterday. Patient with low sodium and calcium. Patient herself feels still generally tired today. No chest pain but she states she always have chronic dyspnea. Pain or complaints. No change in urine or bowel habits. No fever. Patient is afebrile slightly tachycardic with heart rate around 101. CBC is stable. Sodium is stable at 124 since yesterday. Parathyroidectomy is elevated at 543.2 with local shunt today at 6.8. Objective - Vital Signs Vital signs: Vital Signs Temp 97.2 F L 02/04/20 08:00 Pulse 101 H 02/04/20 08:00 Resp 16 02/04/20 08:00 BP 118/58 02/04/20 08:00 Pulse Ox 93 L 02/04/20 08:00 Intake & Output 02/03/20 02/04/20 02/04/20 18:59 06:59 18:59 Intake Total 660 125 Output Total 1000 1000 Balance -340 -1000 125 Weight 89.086 kg Intake: Oral 660 125 Output: Urine 1000 1000 Other: Voiding Method Bedside Commode Bedside Commode Bedside Commode # Voids 2 # Bowel Movements 1 - Exam GENERAL: The patient is alert and oriented x3, not in any acute distress. Well developed, well nourished. HEENT: Pupils are round and equally reacting to light. EOMI. No scleral icterus. No conjunctival pallor. Normocephalic, atraumatic. No pharyngeal erythema. No thyromegaly. CARDIOVASCULAR: S1 and S2 present. No murmurs, rubs, or gallops. PULMONARY: Chest is clear to auscultation, no wheezing or crackles. ABDOMEN: Soft, nontender, nondistended, normoactive bowel sounds. No palpable organomegaly. MUSCULOSKELETAL: No joint swelling or deformity. EXTREMITIES: No cyanosis, clubbing, or pedal edema. NEUROLOGICAL: Gross neurological examination did not reveal any focal deficits. SKIN: No rashes. no petechiae. - Labs CBC & Chem 7: 02/04/20 07:37 02/04/20 07:37 Labs: Abnormal Lab Results - Last 24 Hours (Table) 02/03/20 02/03/20 02/03/20 Range/Units 11:39 15:42 16:42 RBC (3.80-5.40) m/uL Hgb (11.4-16.0) gm/dL Hct (34.0-46.0) % MCV (80.0-100.0) fL RDW (11.5-15.5) % Lymphocytes # (1.0-4.8) k/uL Sodium (137-145) mmol/L Chloride (98-107) mmol/L BUN (7-17) mg/dL Creatinine (0.52-1.04) mg/dL Glucose (74-99) mg/dL POC Glucose (mg/dL) 198 H 226 H (75-99) mg/dL Calcium (8.4-10.2) mg/dL PTH Intact 503.2 H (14.0-72.0) pg/mL 02/03/20 02/04/20 02/04/20 Range/Units 20:02 06:27 07:37 RBC 3.00 L (3.80-5.40) m/uL Hgb 9.7 L (11.4-16.0) gm/dL Hct 31.1 L (34.0-46.0) % MCV 103.7 H (80.0-100.0) fL RDW 16.4 H (11.5-15.5) % Lymphocytes # 0.9 L (1.0-4.8) k/uL Sodium (137-145) mmol/L Chloride (98-107) mmol/L BUN (7-17) mg/dL Creatinine (0.52-1.04) mg/dL Glucose (74-99) mg/dL POC Glucose (mg/dL) 145 H 153 H (75-99) mg/dL Calcium (8.4-10.2) mg/dL PTH Intact (14.0-72.0) pg/mL 02/04/20 Range/Units 07:37 RBC (3.80-5.40) m/uL Hgb (11.4-16.0) gm/dL Hct (34.0-46.0) % MCV (80.0-100.0) fL RDW (11.5-15.5) % Lymphocytes # (1.0-4.8) k/uL Sodium 124 L (137-145) mmol/L Chloride 95 L (98-107) mmol/L BUN 29 H (7-17) mg/dL Creatinine 1.43 H (0.52-1.04) mg/dL Glucose 177 H (74-99) mg/dL POC Glucose (mg/dL) (75-99) mg/dL Calcium 6.8 L (8.4-10.2) mg/dL PTH Intact (14.0-72.0) pg/mL Assessment and Plan Assessment: A. fib with RVR status post cardioversion with persistent atrial fibrillation Hyponatremia Moderate to severe tricuspid regurgitation Chronic kidney disease stage III Secondary pulmonary hypertension Type 2 diabetes mellitus Diabetic peripheral neuropathy Operative report Hyperlipidemia Hypertension History of coronary artery disease status post CABG Chronic kidney disease stage III Chronic gait dysfunction Urinary tract infection Hyponatremia Severe hypocalcemia Plan: This is a pleasant 7 years old female who presents with A. fib and RVR and hyponatremia. Also she has severe TR and hypocalcemia. Cardiology on the case, continue with amiodarone and beta [place] and Eliquis. Monitor heart rate Follow-up recommendation by puncher and fastener. Follow-up electrolytes Labs and medication were reviewed.. Continue same treatment. Continue with symptomatic treatment. Resume home medication. Monitor lytes and vitals. DVT and GI prophylaxis. Further recommendationsas per clinical course of the patient DVT prophylaxis: Subcutaneous heparin GI Prophylaxis: Pepcid PT/OT: Pending
[2020-02-04] MEDS ORDERED: FAMOTIDINE 20 MG/2 ML VIAL IV ONE (09:30)
[2020-02-04] MEDS: metFORMIN 500 MG TAB PO SCH ×2 (11:06→20:13)
[2020-02-04 11:32] LABS: Glucose,Whole Blood 173 mg/dL (75-99)
--- NOTE | 2020-02-04 13:06 | P.PN ---
Subjective HISTORY OF PRESENTING ILLNESS This is a pleasant 79-year-old female past medical history significant for coronary artery disease s/p bypass grafting, peripheral vascular disease, hypertension, diabetes mellitus, dyslipidemia, atrial flutter, chronic kidney disease and former nicotine dependence. She follows in the office with Dr. Burnett. She is seen and examined sitting up in the chair in no acute distress. She continues to be in atrial flutter. Blood pressure 122/70 heart rate 98 afebrile maintaining oxygen saturation on room air. Laboratory data reviewed, WBC 4.2, hemoglobin 9.7, platelets 163, sodium 124, potassium 4.7, creatinine 1.43. Currently maintained on Eliquis 2.5 mg twice a day, aspirin 81 mg daily, atorvastatin 10 mg daily, Zetia 10 mg daily, Lasix 40 mg daily and Toprol 50 mg daily. PHYSICAL EXAMINATION CONSTITUTIONAL: No apparent distress. HEENT: Head is normocephalic. Pupils are equal, round. Sclerae anicteric. Mucous membranes of the mouth are moist. No JVD. No carotid bruit. CHEST EXAMINATION: Lungs are clear to auscultation. No chest wall tenderness is noted on palpation or with deep breathing. HEART EXAMINATION: Irregular rate and rhythm. S1, S2 heard. Systolic ejection murmur at the left sternal border, no gallops or rub. EXTREMITIES: 1+ peripheral pulses, no lower extremity edema and no calf tenderness. ASSESSMENT Persistent atrial flutter, typical Peripheral vascular disease Coronary artery disease s/p bypass grafting Hypertension Dyslipidemia Diabetes mellitus Chronic kidney disease Former nicotine dependence PLAN Increase Toprol to 75 mg daily. Discontinue amiodarone. Plan is for rate control. She will likely require an ablation if the goal is rhythm control in the future. Nurse Practitioner note has been reviewed, I agree with a documented findings and plan of care. Patient was seen and examined. Objective - Vital Signs Vital signs: Vital Signs Temp 97.8 F 02/04/20 11:05 Pulse 98 02/04/20 11:25 Resp 16 02/04/20 11:25 BP 122/70 02/04/20 11:05 Pulse Ox 94 L 02/04/20 11:05 Intake & Output 02/03/20 02/04/20 02/04/20 18:59 06:59 18:59 Intake Total 660 125 Output Total 1000 1000 Balance -340 -1000 125 Weight 89.086 kg Intake: Oral 660 125 Output: Urine 1000 1000 Other: Voiding Method Bedside Commode Bedside Commode Bedside Commode # Voids 2 2 # Bowel Movements 1 - Labs CBC & Chem 7: 02/04/20 07:37 02/04/20 07:37 Labs: Abnormal Lab Results - Last 24 Hours (Table) 02/03/20 02/03/20 02/03/20 Range/Units 15:42 16:42 20:02 RBC (3.80-5.40) m/uL Hgb (11.4-16.0) gm/dL Hct (34.0-46.0) % MCV (80.0-100.0) fL RDW (11.5-15.5) % Lymphocytes # (1.0-4.8) k/uL Sodium (137-145) mmol/L Chloride (98-107) mmol/L BUN (7-17) mg/dL Creatinine (0.52-1.04) mg/dL Glucose (74-99) mg/dL POC Glucose (mg/dL) 226 H 145 H (75-99) mg/dL Calcium (8.4-10.2) mg/dL PTH Intact 503.2 H (14.0-72.0) pg/mL 02/04/20 02/04/20 02/04/20 Range/Units 06:27 07:37 07:37 RBC 3.00 L (3.80-5.40) m/uL Hgb 9.7 L (11.4-16.0) gm/dL Hct 31.1 L (34.0-46.0) % MCV 103.7 H (80.0-100.0) fL RDW 16.4 H (11.5-15.5) % Lymphocytes # 0.9 L (1.0-4.8) k/uL Sodium 124 L (137-145) mmol/L Chloride 95 L (98-107) mmol/L BUN 29 H (7-17) mg/dL Creatinine 1.43 H (0.52-1.04) mg/dL Glucose 177 H (74-99) mg/dL POC Glucose (mg/dL) 153 H (75-99) mg/dL Calcium 6.8 L (8.4-10.2) mg/dL PTH Intact (14.0-72.0) pg/mL 02/04/20 Range/Units 11:31 RBC (3.80-5.40) m/uL Hgb (11.4-16.0) gm/dL Hct (34.0-46.0) % MCV (80.0-100.0) fL RDW (11.5-15.5) % Lymphocytes # (1.0-4.8) k/uL Sodium (137-145) mmol/L Chloride (98-107) mmol/L BUN (7-17) mg/dL Creatinine (0.52-1.04) mg/dL Glucose (74-99) mg/dL POC Glucose (mg/dL) 173 H (75-99) mg/dL Calcium (8.4-10.2) mg/dL PTH Intact (14.0-72.0) pg/mL
[2020-02-04] MEDS: CYANOCOBALAMIN 500 MCG TAB PO SCH (15:05)
[2020-02-04] MEDS: FOLIC ACID 1 MG TAB PO SCH (15:05)
--- NOTE | 2020-02-04 15:39 | CONS ---
CONSULTATION REASON FOR CONSULT: Renal failure. HISTORY OF PRESENT ILLNESS: patient is an 79-year-old female who was admitted to the hospital on 01/31/2020 with difficulty in urination. A bladder scan did not show significant urine retention. Therefore, the Cuevas catheter was not placed. Patient does have history of CKD with previous creatinine ranging from 1.6-1.7 mg/dL in December and early January 2020. When she was admitted this time, her creatinine was about 1.58 and 1.6, today it is at 1.43. Patient's blood pressure is slightly on the lower side with an occasional 94 mmHg for systolic. She states that her urine output has improved now and she is voiding frequently. Patient was also noted to be in atrial fibrillation with an RVR on admission. Her rate is now staying at about 100-98 beats per minute. Patient is maintained on oral Lasix. PAST MEDICAL HISTORY: Significant for CKD stage 3 baseline creatinine 1.5-1.6 mg/dL secondary to diabetes nephrosclerosis. The patient also has a history of COPD, hypertension, hyperlipidemia, history of ID, obstructive sleep apnea, peripheral vascular disease, gout, coronary artery disease, history of coronary artery bypass surgery. PAST SURGICAL HISTORY: Appendectomy, coronary artery bypass surgery, cardiac catheterization, hysterectomy, tonsillectomy, right neck lymph node removal. SOCIAL HISTORY: Patient is a former smoker. No history of drug abuse or alcohol abuse. MEDICATIONS: Prior to admission included metformin, Zetia, Mevacor, aspirin, Colcrys, Neurontin, Mysoline, Lasix, Prolia, Eliquis, Toprol. ALLERGIES: Include CORTISONE causes pain, ALBUTEROL, VICODIN, NOVOCAIN, ALLERGY MEDICINES which are basically she is intolerant which causes dry nose and bleeding sometimes. PHYSICAL EXAMINATION: Patient is comfortable, awake, she is not in any acute distress. Blood pressure is 122/70, heart rate 98 per minute, patient is afebrile. Examination of the heart S1, S2. Examination of the lungs, bilateral breath sounds are heard. Abdomen is soft, nontender. Examination of lower extremities shows edema 1+ bilaterally. TIRE MOLD TESTER exam is grossly intact. Patient is moving 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. LABS: Show sodium of 124, potassium 4.7, chloride 95, CO2 is 23, BUN 29, serum creatinine 1.43, hemoglobin 9.7 g/dL. A urinalysis shows trace protein. ASSESSMENT: 1. Chronic kidney disease with serum creatinine baseline about 1.5 mg/dL. Currently patient is maintained on a small dose of oral Lasix which I will continue for now as she does have some lower extremity edema. No recent chest x-ray available at this time. Patient's blood pressure was low and that has probably contributed to some degree of acute kidney injury as well. 2. Hyponatremia currently patient is euvolemic or mildly hypervolemic. I will continue with oral Lasix for now and repeat sodium at about 1 pm. I will check a urine osmolality as well. Patient is advised to maintain some degree of free water restriction. Consider tolvaptan if sodium does not improve. 3. Atrial flutter, being considered for cardioversion status post BETHEL done on 02/02/2020 which showed ejection fraction 35%. 4. Cardiomyopathy, ejection fraction 35%. 5. Thickened mitral valve leaflets, moderate to severe mitral regurgitation. 6. Type 2 diabetes. May continue with the Glucophage for now. 7. Anemia, possibly related to anemia of chronic disease. PLAN: Continue with p.o. Lasix, repeat sodium this afternoon. Check iron profile. Check random urine osmolality. May continue Glucophage and avoid hypotension. Thank you for this consultation. We will continue to follow the patient with you during her hospitalization. MMODL / IJN: [id number] /
[2020-02-04 16:53] LABS: Glucose,Whole Blood 249 mg/dL (75-99)
[2020-02-04] MEDS: EZETIMIBE 10 MG TAB PO SCH (17:08)
[2020-02-04] MEDS: ATORVASTATIN 10 MG TAB PO SCH (17:08)
[2020-02-04] MEDS: FAMOTIDINE 20 MG/2 ML VIAL IV SCH (20:13)
[2020-02-04] MEDS: LINAGLIPTIN 5 MG TABLET PO SCH (20:13)
[2020-02-04 20:37] LABS: Glucose,Whole Blood 130 mg/dL (75-99)
[2020-02-05 02:50] LABS: % Iron Saturation 11.34 (12.00-45.00)
[2020-02-05 06:17] LABS: Glucose,Whole Blood 127 mg/dL (75-99)
[2020-02-05] MEDS: INSULIN ASPART (NovoLOG) 100 UNIT/ML VIAL SQ SCH ×4 (06:18→21:54)
--- NOTE | 2020-02-05 06:27 | P.CONS ---
History of Present Illness - Chief Complaint Medical debility - History of Present Illness I had the opportunity to see patient for inpatient rehab consultation with regard to medical debility. She was admitted to [facility] January 30 with elevated heart rate for which is seen by cardiology. Renal ultrasound negative. Multiple EKGs done. PT reports minimal assistance for transfers and gait 8 feet with roller walker. OT reports minimal assistance for upper dressing and moderate assistance for lower dressing, minimal assistance for bathing, toileting and transfers. Patient reports that he she isn't feeling well this a.m., with nausea. Previous functional history as elicited from patient: 79-year-old right-handed white female who is single lives in a third-floor apartment alone. Describes doesn't do the laundry and doesn't own a car. Independent with own cooking, sink bath and gait with [address] Moran. Review of Systems Review of systems: ENT: Denies sneezes or discharge. Eyes: Denies discharge or photophobia. Cardiac: Denies chest pain or palpitation. Pulmonary: Denies cough or shortness of breath. Breast: Denies discharge or lumps. Gastrointestinal: Nausea. Genitourinary: Denies discharge or frequency. Musculoskeletal: Denies muscle or bone aches. Neurologic: Generalized weakness. Endocrine: Denies shakes or sweats. Oncology: Denies cancers. Dermatologic: Denies rash, itching, pruritus. ALLERGY/immunology: Denies sneezes, rashes. Past Medical History Past Medical History: COPD, Diabetes Mellitus, Hyperlipidemia, Hypertension, Myocardial Infarction ([place]), Sleep Apnea/CPAP/BIPAP Additional Past Medical History / Comment(s): tremors,NO left arm blood draw or blood pressure(vessel harvested for CABG), blockages in angelica legs, Coonstipation, gout, PAD Last Myocardial Infarction Date:: 1999 History of Any Multi-Drug Resistant Organisms: None Reported Past Surgical History: Appendectomy, Coronary Bypass/CABG, Heart Catheterization, Hysterectomy, Tonsillectomy Additional Past Surgical History / Comment(s): angiogram. Right neck lymphnode removal Past Anesthesia/Blood Transfusion Reactions: No Reported Reaction Past Psychological History: No Psychological Hx Reported Smoking Status: Former smoker Past Alcohol Use History: None Reported Past Drug Use History: None Reported - Past Family History Mother Family Medical History: COPD, Myocardial Infarction ([place]) Brother(s) Family Medical History: Cancer Additional Family Medical History / Comment(s): LUNG CANCER Son(s) Family Medical History: Cancer Additional Family Medical History / Comment(s): COLON CANCER Sister(s) Family Medical History: Cancer Additional Family Medical History / Comment(s): (2) SISTERS HAD BREAST CANCER. Medications and Allergies Home Medications Medication Instructions Recorded Confirmed Type Ezetimibe [Zetia] 10 mg PO DAILY@1800 11/20/13 01/31/20 History Lovastatin [Mevacor] 10 mg PO DAILY@1800 11/20/13 01/31/20 History sitaGLIPtin PHOS/metFORMIN HCL 1 tab PO BID 08/20/16 01/31/20 History [Janumet 50-1,000 mg Tablet] Aspirin EC [Ecotrin Low Dose] 81 mg PO DAILY@0900 01/25/19 01/31/20 History Colchicine [Colcrys] 0.6 mg PO BID@0900,1800 01/25/19 01/31/20 History Gabapentin [Neurontin] 100 mg PO TID 01/25/19 01/31/20 History Primidone [Mysoline] 50 mg PO DAILY@0900 01/25/19 01/31/20 History Primidone [Mysoline] 100 mg PO DAILY@1800 01/25/19 01/31/20 History Albuterol Inhaler [Ventolin Hfa 2 puff INHALATION RT-QID PRN 10/19/19 01/31/20 History Inhaler] Folic Acid(Unknown Dose) 1 tab PO DAILY@1500 10/19/19 01/31/20 History Vitamin B-12(Unknown Dose) 1 tab PO DAILY@1500 10/19/19 01/31/20 History Furosemide [Lasix] 40 mg PO DAILY@0900 12/24/19 01/31/20 History Denosumab [Prolia] 60 mg SQ Q180D 01/23/20 01/31/20 History Apixaban [Eliquis] 2.5 mg PO BID #60 tablet 01/26/20 01/31/20 Rx Metoprolol Succinate (ER) [Toprol 50 mg PO DAILY #60 tab.er.24h 01/26/20 01/31/20 Rx XL] Allergies Allergy/AdvReac Type Severity Reaction Status Date / Time albuterol [From DuoNeb] AdvReac Nausea Verified 01/31/20 19:17 cortisone AdvReac PAIN Verified 01/31/20 19:17 hydrocodone AdvReac Nausea Verified 01/31/20 19:17 ipratropium [From DuoNeb] AdvReac Nausea Verified 01/31/20 19:17 procaine HCl [From Novocain] AdvReac pain Verified 01/31/20 19:17 allergy medicines AdvReac "dries me Uncoded 01/31/20 16:48 out, bloody noses,generalized pain" Physical Exam Vitals: Vital Signs Temp Pulse Resp BP BP Pulse Ox 02/05/20 04:00 97.6 F 100 16 124/73 92 L 02/05/20 00:00 98.2 F 96 18 131/78 92 L 02/04/20 20:00 98.3 F 100 18 122/65 94 L 02/04/20 15:36 95 18 02/04/20 15:02 97.2 F L 95 18 112/70 95 02/04/20 11:25 98 16 02/04/20 11:05 97.8 F 98 16 122/70 94 L 02/04/20 08:00 97.2 F L 101 H 16 118/58 93 L Intake and Output 02/04/20 02/04/20 02/05/20 14:59 22:59 06:59 Intake Total 361 686 Output Total 600 400 Balance 361 86 -400 Intake: Oral 361 686 Output: Urine 600 400 Other: Voiding Method Bedside Commode Bedside Commode Bedside Commode # Voids 5 2 # Bowel Movements 1 1 Weight 90.5 kg Skin: Atrophic, intact. General: Obese build and comfortable appearance. Head: Normocephalic, atraumatic. Eyes: Symmetric. Pupils equal round. Ears: Symmetric. Hearing within normal limits. Mouth: Clear. Neck: Supple. Carotid without bruit. Cardiac: Regular rate and rhythm. Lungs: Clear anteriorly and posteriorly. Abdomen: Soft active nontender. Obese. Extremities: Normal tone. Neurological: Mental status: Alert, cooperative, pleasant. Cranial nerves: Symmetric facial tone and trapezius. Motor: Able to elevate all 4 limbs off of bed but at best antigravity in arms unless antigravity in legs. Sensation: Intact throughout. DTRs: Symmetric and equal throughout. Mobility: Requires physical assist for bed mobility. Results CBC & Chem 7: 02/04/20 07:37 02/04/20 14:17 Labs: Abnormal Lab Results - Last 24 Hours (Table) 02/04/20 02/04/20 02/04/20 Range/Units 06:27 07:37 07:37 RBC 3.00 L (3.80-5.40) m/uL Hgb 9.7 L (11.4-16.0) gm/dL Hct 31.1 L (34.0-46.0) % MCV 103.7 H (80.0-100.0) fL RDW 16.4 H (11.5-15.5) % Lymphocytes # 0.9 L (1.0-4.8) k/uL Sodium 124 L (137-145) mmol/L Chloride 95 L (98-107) mmol/L BUN 29 H (7-17) mg/dL Creatinine 1.43 H (0.52-1.04) mg/dL Glucose 177 H (74-99) mg/dL POC Glucose (mg/dL) 153 H (75-99) mg/dL Calcium 6.8 L (8.4-10.2) mg/dL Iron (50-170) ug/dL % Saturation (12.00-45.00) 02/04/20 02/04/20 02/04/20 Range/Units 11:31 14:17 16:51 RBC (3.80-5.40) m/uL Hgb (11.4-16.0) gm/dL Hct (34.0-46.0) % MCV (80.0-100.0) fL RDW (11.5-15.5) % Lymphocytes # (1.0-4.8) k/uL Sodium 125 L (137-145) mmol/L Chloride (98-107) mmol/L BUN (7-17) mg/dL Creatinine (0.52-1.04) mg/dL Glucose (74-99) mg/dL POC Glucose (mg/dL) 173 H 249 H (75-99) mg/dL Calcium (8.4-10.2) mg/dL Iron 39 L (50-170) ug/dL % Saturation 11.34 L (12.00-45.00) 02/04/20 02/05/20 Range/Units 20:32 06:03 RBC (3.80-5.40) m/uL Hgb (11.4-16.0) gm/dL Hct (34.0-46.0) % MCV (80.0-100.0) fL RDW (11.5-15.5) % Lymphocytes # (1.0-4.8) k/uL Sodium (137-145) mmol/L Chloride (98-107) mmol/L BUN (7-17) mg/dL Creatinine (0.52-1.04) mg/dL Glucose (74-99) mg/dL POC Glucose (mg/dL) 130 H 127 H (75-99) mg/dL Calcium (8.4-10.2) mg/dL Iron (50-170) ug/dL % Saturation (12.00-45.00) Assessment and Plan (1) Atrial flutter with rapid ventricular response Current Visit: Yes Status: Acute Code(s): I48.92 - UNSPECIFIED ATRIAL FLUTTER SNOMED Code(s): 2391437 (2) Bilateral cellulitis of lower leg Current Visit: No Status: Acute Code(s): L03.116 - CELLULITIS OF LEFT LOWER LIMB; L03.115 - CELLULITIS OF RIGHT LOWER LIMB SNOMED Code(s): 724776689 (3) CHF (congestive heart failure) Current Visit: No Status: Acute Code(s): I50.9 - HEART FAILURE, UNSPECIFIED SNOMED Code(s): 31813450 (4) Nausea & vomiting Current Visit: No Status: Acute Code(s): R11.2 - NAUSEA WITH VOMITING, UNSPECIFIED SNOMED Code(s): 33235097 Plan: Impression: 1. Medical debility. 2. Atrial flutter with RVR. 3. Nausea with emesis. 4. Obesity. 5. COPD. 6. Hypertension. 7. Cardiac disease with history of VA. 8. Sleep apnea. Constant plan: At this time PT and OT are ongoing. Patient reports however that she doesn't feel well today we'll follow therapies today. Following for possible inpatient rehab but must determine what is going on today.
[2020-02-05] MEDS: CALCIUM CARB-VIT D 500MG-200UN 1 EACH TAB PO SCH ×3 (06:42→17:34)
[2020-02-05 07:48] LABS: Anisocytosis Slight; Basophils % (A) 0 %; Eosinophils # (A) 0.5 k/uL (0-0.7); Eosinophils % (A) 11 %; HGB 9.5 gm/dL (11.4-16.0); Hypochromasia Moderate; Lymphocytes % (A) 25 %; MCH 32.7 pg (25.0-35.0); MCHC 31.8 g/dL (31.0-37.0); Macrocytosis Moderate; Mean Platelet Volume 7.5; Monocytes # (A) 0.3 k/uL (0-1.0); Monocytes % (A) 7 %; Neutrophils # (A) 2.2 k/uL (1.3-7.7); Neutrophils % (A) 53 %; Platelet Count 180 k/uL (150-450); Poikilocytosis Slight; RBC 2.91 m/uL (3.80-5.40); RDW 16.7 % (11.5-15.5); WBC 4.1 k/uL (3.8-10.6)
[2020-02-05 08:06] LABS: Calcium 7.2 mg/dL (8.4-10.2); Potassium 4.9 mmol/L (3.5-5.1)
[2020-02-05] MEDS: TAMSULOSIN 0.4 MG CAP.ER.24H PO SCH (09:21)
[2020-02-05] MEDS: COLCHICINE 0.6 MG EACH PO SCH ×2 (09:25→19:43)
[2020-02-05] MEDS: ASPIRIN 81 MG PO SCH (09:25)
[2020-02-05] MEDS: GABAPENTIN 100 MG CAP PO SCH ×3 (09:25→21:53)
[2020-02-05] MEDS: metFORMIN 500 MG TAB PO SCH ×2 (09:25→21:56)
[2020-02-05] MEDS: CALCIUM GLUCONATE 1 GM in SODIUM CHLORIDE 0.9% 100 ML IVPB SCH ×2 (09:35→21:57)
[2020-02-05] MEDS: FAMOTIDINE 20 MG/2 ML VIAL IV SCH (09:37)
[2020-02-05] MEDS: FUROSEMIDE 40 MG TAB PO SCH ×2 (09:37→10:55)
[2020-02-05] MEDS: METOPROLOL SUCCINATE (ER) 25 MG TAB.ER.24H PO SCH (09:38)
[2020-02-05] MEDS: PRIMIDONE 50 MG TAB PO SCH ×2 (09:39→18:47)
[2020-02-05] MEDS: APIXABAN 2.5 MG TABLET PO SCH (10:55)
[2020-02-05] MEDS ORDERED: TOLVAPTAN 15 MG 1/2 TABLET PO ONE (11:00)
--- NOTE | 2020-02-05 11:09 | XR ---
EXAMINATION TYPE: XR chest 1V DATE OF EXAM: 02/05/2020 CLINICAL HISTORY: chf. TECHNIQUE: Portable frontal view of the chest. COMPARISON: 01/23/2020 chest radiograph FINDINGS: Sternotomy wires. Cardiomegaly. Pulmonary vasculature is normal. Bibasilar airspace opacit y pleural effusion, or pneumothorax seen. The osseous structures are intact. IMPRESSION: Cardiomegaly. No acute cardiopulmonary process.
--- NOTE | 2020-02-05 11:22 | P.PN ---
Subjective This is a pleasant 7 years old female with multiple medical problems as below, she is being admitted to the hospital on 01/31 for A. fib with RVR, status post cardioversion with persistent atrial fibrillation, also she has moderate to severe tricuspid regurgitation, chronic kidney disease and hyponatremia and hypocalcemia. Patient is been followed closely by cardiology service and she is currently on Eliquis 2.5 mg twice a day for renal dosing. Nephrology service has been consulted yesterday. Patient with low sodium and calcium. Patient herself feels still generally tired today. No chest pain but she states she always have chronic dyspnea. Pain or complaints. No change in urine or bowel habits. No fever. Patient is afebrile slightly tachycardic with heart rate around 101. CBC is stable. Sodium is stable at 124 since yesterday. Parathyroidectomy is elevated at 543.2 with local shunt today at 6.8. 02/05/2020 Patient is awake and alert today but she reports she does not feel well without specific symptoms when I ask her if she has chest pain or dyspnea she has shown so I just feel not well. However she is fully awake and appropriate, she was hesitant to see the medical doctor today but she agreed to eventually. She wants to see only Dr. Burnett. Her symptoms and information was limited because patient lack of cooperation. Patient did not report any change in her urine or bowel habits or any leg symptoms. Vital signs stable and patient is afebrile. CBC looks stable. Creatinine is stable at 1.4 . Calcium today is better at 7.2. Her sodium is still low at 124 but is stable. Cardiology and nephrology team on the case. Chest x-ray: Cardiomegaly with no acute cardiopulmonary process by radiologist. Dr. Puri evaluated the patient for possible inpatient rehab I discussed the case with cardiology team and the recommend to hold on Eliquis today and tomorrow for possible surgical procedure with Dr. Burnett, she will need SIX HORSE HITCH DRIVER of left and right SFA. CONSTITUTIONAL: No fever, no malaise, no fatigue. HEENT: No recent visual problems or hearing problems. Denied any sore throat. CARDIOVASCULAR: No orthopnea, PND, no palpitations, no syncope. PULMONARY: No shortness of breath, no cough, no hemoptysis. GASTROINTESTINAL: No diarrhea, no nausea, no vomiting, no abdominal pain. Normoactive bowel sounds. NEUROLOGICAL: No headaches, no weakness, no numbness. HEMATOLOGICAL: Denies any bleeding or petechiae. Active Medications Generic Name Dose Route Start Last Admin Trade Name Fredelicia PRN Reason Stop Dose Admin Albuterol Sulfate 2.5 mg 01/31/20 20:12 Albuterol Nebulized 2.5 Mg/3 Ml INHALATION RT-QID PRN Shortness Of Breath Aspirin 81 mg 02/01/20 09:00 02/05/20 09:25 Aspirin 81 Mg PO 81 mg DAILY@0900 TODD Administration Atorvastatin Calcium 10 mg 02/01/20 18:00 02/04/20 17:08 Atorvastatin 10 Mg Tab PO 10 mg DAILY@1800 TODD Administration Calcium Carbonate 1 each 02/02/20 17:48 02/05/20 06:42 Calcium Carb-Vit D 500mg-200un 1 Each Tab PO 1 each TID-W/MEALS TODD Administration Colchicine 0.6 mg 02/01/20 10:17 02/05/20 09:25 Colchicine 0.6 Mg Each PO 0.6 mg BID@0900,1800 [facility] Administration Cyanocobalamin 500 mcg 02/01/20 15:00 02/04/20 15:05 Cyanocobalamin 500 Mcg Tab PO 500 mcg DAILY@1500 TODD Administration Ezetimibe 10 mg 02/01/20 18:00 02/04/20 17:08 Ezetimibe 10 Mg Tab PO 10 mg DAILY@1800 TODD Administration Famotidine 20 mg 02/04/20 21:00 02/05/20 09:37 Famotidine 20 Mg/2 Ml Vial IV 20 mg Q12HR TODD Administration Folic Acid 1 mg 02/01/20 15:00 02/04/20 15:05 Folic Acid 1 Mg Tab PO 1 mg DAILY@1500 TODD Administration Furosemide 40 mg 02/01/20 09:00 02/05/20 10:55 Furosemide 40 Mg Tab PO Not Given DAILY@0900 TODD Gabapentin 100 mg 01/31/20 22:00 02/05/20 09:25 Gabapentin 100 Mg Cap PO 100 mg TID TODD Administration Calcium Gluconate 1 gm/ Sodium 110 mls @ 100 mls/hr 02/03/20 21:00 02/05/20 09:35 Chloride IVPB 100 mls/hr BID TODD Administration Insulin Aspart 0 unit 02/01/20 07:30 02/05/20 06:18 Insulin Aspart (Novolog) 100 Unit/Ml Vial SQ Not Given ACHS [facility] Protocol Linagliptin 5 mg 02/02/20 21:00 02/04/20 20:13 Linagliptin 5 Mg Tablet PO 5 mg HS TODD Administration Metformin HCl 1,000 mg 02/04/20 09:15 02/05/20 09:25 Metformin 500 Mg Tab PO 1,000 mg BID TODD Administration Metoprolol Succinate 75 mg 02/05/20 09:00 02/05/20 09:38 Metoprolol Succinate (Er) 25 Mg Tab.Er.24h PO 75 mg DAILY TODD Administration Naloxone HCl 0.2 mg 01/31/20 20:07 Naloxone 0.4 Mg/Ml 1 Ml Vial IV Q2M PRN Opioid Reversal Primidone 50 mg 02/01/20 09:00 02/05/20 09:39 Primidone 50 Mg Tab PO 50 mg DAILY@0900 TODD Administration Primidone 100 mg 02/01/20 18:00 02/04/20 17:08 Primidone 50 Mg Tab PO 100 mg DAILY@1800 TODD Administration Tamsulosin HCl 0.4 mg 02/02/20 08:30 02/05/20 09:21 Tamsulosin 0.4 Mg Cap.Er.24h PO 0.4 mg [id number] TODD Administration Objective - Vital Signs Vital signs: Vital Signs Temp 96.9 F L 02/05/20 07:36 Pulse 100 02/05/20 09:00 Resp 18 02/05/20 09:00 BP 150/70 02/05/20 07:36 Pulse Ox 94 L 02/05/20 07:36 Intake & Output 02/04/20 02/05/20 02/05/20 18:59 06:59 18:59 Intake Total 597 450 Output Total 600 400 150 Balance -3 50 -150 Weight 90.5 kg Intake: Oral 597 450 Output: Urine 600 400 150 Other: Voiding Method Bedside Commode Bedside Commode Bedside Commode # Voids 2 1 # Bowel Movements 1 1 0 - Exam GENERAL: The patient is alert and oriented x3, not in any acute distress. Well developed, well nourished. HEENT: Pupils are round and equally reacting to light. EOMI. No scleral icterus. No conjunctival pallor. Normocephalic, atraumatic. No pharyngeal erythema. No thyromegaly. CARDIOVASCULAR: S1 and S2 present. No murmurs, rubs, or gallops. PULMONARY: Chest is clear to auscultation, no wheezing or crackles. ABDOMEN: Soft, nontender, nondistended, normoactive bowel sounds. No palpable organomegaly. MUSCULOSKELETAL: No joint swelling or deformity. EXTREMITIES: No cyanosis, clubbing, or pedal edema. NEUROLOGICAL: Gross neurological examination did not reveal any focal deficits. SKIN: No rashes. no petechiae. - Labs CBC & Chem 7: 02/05/20 06:58 02/05/20 06:58 Labs: Abnormal Lab Results - Last 24 Hours (Table) 02/04/20 02/04/20 02/04/20 Range/Units 11:31 14:17 16:51 RBC (3.80-5.40) m/uL Hgb (11.4-16.0) gm/dL Hct (34.0-46.0) % MCV (80.0-100.0) fL RDW (11.5-15.5) % Sodium 125 L (137-145) mmol/L Chloride (98-107) mmol/L BUN (7-17) mg/dL Creatinine (0.52-1.04) mg/dL Glucose (74-99) mg/dL POC Glucose (mg/dL) 173 H 249 H (75-99) mg/dL Calcium (8.4-10.2) mg/dL Iron 39 L (50-170) ug/dL % Saturation 11.34 L (12.00-45.00) 02/04/20 02/05/20 02/05/20 Range/Units 20:32 06:03 06:58 RBC 2.91 L (3.80-5.40) m/uL Hgb 9.5 L (11.4-16.0) gm/dL Hct 30.0 L (34.0-46.0) % MCV 103.0 H (80.0-100.0) fL RDW 16.7 H (11.5-15.5) % Sodium (137-145) mmol/L Chloride (98-107) mmol/L BUN (7-17) mg/dL Creatinine (0.52-1.04) mg/dL Glucose (74-99) mg/dL POC Glucose (mg/dL) 130 H 127 H (75-99) mg/dL Calcium (8.4-10.2) mg/dL Iron (50-170) ug/dL % Saturation (12.00-45.00) 02/05/20 Range/Units 06:58 RBC (3.80-5.40) m/uL Hgb (11.4-16.0) gm/dL Hct (34.0-46.0) % MCV (80.0-100.0) fL RDW (11.5-15.5) % Sodium 124 L (137-145) mmol/L Chloride 93 L (98-107) mmol/L BUN 26 H (7-17) mg/dL Creatinine 1.44 H (0.52-1.04) mg/dL Glucose 110 H (74-99) mg/dL POC Glucose (mg/dL) (75-99) mg/dL Calcium 7.2 L (8.4-10.2) mg/dL Iron (50-170) ug/dL % Saturation (12.00-45.00) Assessment and Plan Assessment: A. fib with RVR status post cardioversion with persistent atrial fibrillation Peripheral vascular disease of the lower extremity with cardioversion planned for SIX HORSE HITCH DRIVER of the left and right SFA Hyponatremia Moderate to severe tricuspid regurgitation Chronic kidney disease stage III Secondary pulmonary hypertension Type 2 diabetes mellitus Diabetic peripheral neuropathy Operative report Hyperlipidemia Hypertension History of coronary artery disease status post CABG Chronic kidney disease stage III Chronic gait dysfunction History of Urinary tract infection. Urine analysis from 01/30 is negative for infection Severe hypocalcemia, improving Plan: This is a pleasant 7 years old female who presents with A. fib and RVR and hyponatremia. Also she has severe TR and hypocalcemia . Cardiology on the case, discontinue with amiodarone and increase beta [place] according to their recommendation and Eliquis (hold during procedure by operations plant attendant). Monitor heart rate Follow-up recommendation by oil prospecting observer. Follow-up electrolytes Labs and medication were reviewed.. Continue same treatment. Continue with symptomatic treatment. Resume home medication. Monitor lytes and vitals. DVT and GI prophylaxis. Further recommendationsas per clinical course of the patient DVT prophylaxis Eliquis (hold during procedure by operations plant attendant) GI Prophylaxis: Pepcid PT/OT: Pending
[2020-02-05 11:46] LABS: Glucose,Whole Blood 168 mg/dL (75-99)
--- NOTE | 2020-02-05 12:01 | P.PN ---
Subjective HISTORY OF PRESENTING ILLNESS This is a pleasant 79-year-old female past medical history significant for coronary artery disease s/p bypass grafting, peripheral vascular disease, hypertension, diabetes mellitus, dyslipidemia, atrial flutter, chronic kidney disease and former nicotine dependence. She follows in the office with Dr. Burnett. She continues to be in atrial flutter with controlled rates in the 90's. Blood pressure 138/73 maintaining oxygen saturation on room air. PHYSICAL EXAMINATION CONSTITUTIONAL: No apparent distress. HEENT: Head is normocephalic. Pupils are equal, round. Sclerae anicteric. Mucous membranes of the mouth are moist. No JVD. No carotid bruit. CHEST EXAMINATION: Lungs are clear to auscultation. No chest wall tenderness is noted on palpation or with deep breathing. HEART EXAMINATION: Irregular rate and rhythm. S1, S2 heard. Systolic ejection murmur at the left sternal border, no gallops or rub. EXTREMITIES: 1+ peripheral pulses, no lower extremity edema and no calf tenderness. ASSESSMENT Persistent atrial flutter, typical Peripheral vascular disease Coronary artery disease s/p bypass grafting Hypertension Dyslipidemia Diabetes mellitus Chronic kidney disease Former nicotine dependence PLAN Case discussed with her primary client manager large law Dr. Burnett. He would like to proceed with scheduled SFA intervention tomorrow. Eliquis will be held today and she will be nothing by mouth after midnight tonight. Nurse Practitioner note has been reviewed, I agree with a documented findings and plan of care. Patient was seen and examined. Objective - Vital Signs Vital signs: Vital Signs Temp 96.9 F L 02/05/20 07:36 Pulse 100 02/05/20 09:00 Resp 18 02/05/20 09:00 BP 150/70 02/05/20 07:36 Pulse Ox 94 L 02/05/20 07:36 Intake & Output 02/04/20 02/05/20 02/05/20 18:59 06:59 18:59 Intake Total 597 450 Output Total 600 400 150 Balance -3 50 -150 Weight 90.5 kg Intake: Oral 597 450 Output: Urine 600 400 150 Other: Voiding Method Bedside Commode Bedside Commode Bedside Commode # Voids 2 1 # Bowel Movements 1 1 0 - Labs CBC & Chem 7: 02/05/20 06:58 02/05/20 06:58 Labs: Abnormal Lab Results - Last 24 Hours (Table) 02/04/20 02/04/20 02/04/20 Range/Units 14:17 16:51 20:32 RBC (3.80-5.40) m/uL Hgb (11.4-16.0) gm/dL Hct (34.0-46.0) % MCV (80.0-100.0) fL RDW (11.5-15.5) % Sodium 125 L (137-145) mmol/L Chloride (98-107) mmol/L BUN (7-17) mg/dL Creatinine (0.52-1.04) mg/dL Glucose (74-99) mg/dL POC Glucose (mg/dL) 249 H 130 H (75-99) mg/dL Calcium (8.4-10.2) mg/dL Iron 39 L (50-170) ug/dL % Saturation 11.34 L (12.00-45.00) 02/05/20 02/05/20 02/05/20 Range/Units 06:03 06:58 06:58 RBC 2.91 L (3.80-5.40) m/uL Hgb 9.5 L (11.4-16.0) gm/dL Hct 30.0 L (34.0-46.0) % MCV 103.0 H (80.0-100.0) fL RDW 16.7 H (11.5-15.5) % Sodium 124 L (137-145) mmol/L Chloride 93 L (98-107) mmol/L BUN 26 H (7-17) mg/dL Creatinine 1.44 H (0.52-1.04) mg/dL Glucose 110 H (74-99) mg/dL POC Glucose (mg/dL) 127 H (75-99) mg/dL Calcium 7.2 L (8.4-10.2) mg/dL Iron (50-170) ug/dL % Saturation (12.00-45.00) 02/05/20 Range/Units 11:44 RBC (3.80-5.40) m/uL Hgb (11.4-16.0) gm/dL Hct (34.0-46.0) % MCV (80.0-100.0) fL RDW (11.5-15.5) % Sodium (137-145) mmol/L Chloride (98-107) mmol/L BUN (7-17) mg/dL Creatinine (0.52-1.04) mg/dL Glucose (74-99) mg/dL POC Glucose (mg/dL) 168 H (75-99) mg/dL Calcium (8.4-10.2) mg/dL Iron (50-170) ug/dL % Saturation (12.00-45.00)
--- NOTE | 2020-02-05 14:14 | PN ---
PROGRESS NOTE Patient is seen for followup for chronic kidney disease and an element of acute kidney injury. Patient is currently maintained on oral Lasix from mild lower extremity edema. Her sodium is noted to be low at 124 to 125 mEq/L. Serum creatinine had increased to about 1.6, but now it is back down to 1.4, which appears to be her baseline. Patient was initially admitted for cardioversion for persistent atrial fibrillation. Patient had cardioversion on 02/02/2020. She is currently in sinus rhythm. However, she does have peripheral vascular disease and is scheduled for BLOOD BANK TECHNOLOGIST with Dr. Burnett tomorrow. PHYSICAL EXAMINATION: Today, patient is comfortable. Blood pressure is 138/73, heart rate 99 per minute, she is afebrile. Examination of the heart S1, S2. Examination of the lungs, bilateral breath sounds are heard. Abdomen is soft, nontender. Examination of the lower extremities shows trace edema bilaterally. MEDICAID SPECIALIST exam grossly intact. LABS: Show sodium 124, potassium 4.9, chloride 93, CO2 is 23, BUN 26, creatinine 1.4, calcium 7.2, hemoglobin 9.5 g/dL. ASSESSMENT: 1. Hyponatremia, mildly hypervolemic. I will give her a dose of tolvaptan. Continue with the Lasix at the current dose of 40 mg p.o. daily. Patient also has decreased oral intake and has not been eating much protein. Her urine osmolality was on the lower side at 218. Patient is encouraged to increase her oral protein intake and I will give her a dose of tolvaptan today. 2. Atrial fibrillation, persistent, status post cardioversion, now in sinus rhythm. 3. Chronic kidney disease stage 3 with baseline creatinine about 1.5 mg/dL. 4. Cardiomyopathy, ejection fraction 35%. 5. Thickened mitral valve leaflets with moderate to severe MR. 6. Anemia, most likely related to anemia of chronic disease. PLAN: Tolvaptan 50 mg x1 today, repeat sodium this evening and then again in a.m. Increase oral protein intake. Maintain some degree of free water restriction. This is discussed with the patient. Continue with the current dose of Lasix. MMODL / IJN: [id number] /
[2020-02-05 16:38] LABS: Glucose,Whole Blood 175 mg/dL (75-99)
[2020-02-05] MEDS: FOLIC ACID 1 MG TAB PO SCH (17:34)
[2020-02-05] MEDS: CYANOCOBALAMIN 500 MCG TAB PO SCH (17:34)
[2020-02-05] MEDS: ATORVASTATIN 10 MG TAB PO SCH (18:46)
[2020-02-05] MEDS: EZETIMIBE 10 MG TAB PO SCH (19:44)
[2020-02-05 20:20] LABS: Glucose,Whole Blood 164 mg/dL (75-99)
[2020-02-05] MEDS: LINAGLIPTIN 5 MG TABLET PO SCH (21:56)
[2020-02-05] MEDS ORDERED: SODIUM CHLORIDE 0.9% 1,000 ML in EMPTY BAG 1 BAG IV ONE (23:00)
[2020-02-06 06:04] LABS: Glucose,Whole Blood 134 mg/dL (75-99)
[2020-02-06] MEDS: INSULIN ASPART (NovoLOG) 100 UNIT/ML VIAL SQ SCH ×4 (06:23→22:52)
[2020-02-06 07:18] LABS: Anisocytosis Slight; Basophils % (A) 0 %; Eosinophils # (A) 0.4 k/uL (0-0.7); Eosinophils % (A) 10 %; HCT 30.9 % (34.0-46.0); HGB 9.7 gm/dL (11.4-16.0); Hypochromasia Slight; Lymphocytes # (A) 0.9 k/uL (1.0-4.8); Lymphocytes % (A) 25 %; MCH 32.1 pg (25.0-35.0); MCHC 31.3 g/dL (31.0-37.0); MCV 102.5 fL (80.0-100.0); Macrocytosis Moderate; Mean Platelet Volume 7.1; Monocytes # (A) 0.3 k/uL (0-1.0); Monocytes % (A) 7 %; Neutrophils % (A) 56 %; Platelet Count 180 k/uL (150-450); Poikilocytosis Slight; RBC 3.02 m/uL (3.80-5.40); RDW 16.8 % (11.5-15.5); WBC 3.7 k/uL (3.8-10.6)
[2020-02-06 07:37] LABS: Calcium 8.1 mg/dL (8.4-10.2); Potassium 5.2 mmol/L (3.5-5.1)
[2020-02-06] MEDS: CALCIUM CARB-VIT D 500MG-200UN 1 EACH TAB PO SCH ×3 (09:07→18:07)
[2020-02-06] MEDS: METOPROLOL SUCCINATE (ER) 25 MG TAB.ER.24H PO SCH (09:25)
[2020-02-06] MEDS: ASPIRIN 81 MG PO SCH (09:25)
[2020-02-06] MEDS: FAMOTIDINE 20 MG/2 ML VIAL IV SCH (09:26)
[2020-02-06] MEDS: GABAPENTIN 100 MG CAP PO SCH ×3 (09:26→22:51)
[2020-02-06] MEDS: TAMSULOSIN 0.4 MG CAP.ER.24H PO SCH (09:26)
[2020-02-06] MEDS: metFORMIN 500 MG TAB PO SCH ×2 (09:27→22:55)
[2020-02-06] MEDS: PRIMIDONE 50 MG TAB PO SCH ×2 (09:27→18:54)
[2020-02-06] MEDS: CALCIUM GLUCONATE 1 GM in SODIUM CHLORIDE 0.9% 100 ML IVPB SCH ×2 (09:32→23:15)
[2020-02-06] MEDS: COLCHICINE 0.6 MG EACH PO SCH ×2 (09:32→18:53)
[2020-02-06] MEDS ORDERED: TOLVAPTAN 15 MG 1/2 TABLET PO ONE (10:00)
[2020-02-06 11:58] LABS: Glucose,Whole Blood 138 mg/dL (75-99)
--- NOTE | 2020-02-06 12:11 | P.PN ---
Subjective This is a pleasant 7 years old female with multiple medical problems as below, she is being admitted to the hospital on 01/31 for A. fib with RVR, status post cardioversion with persistent atrial fibrillation, also she has moderate to severe tricuspid regurgitation, chronic kidney disease and hyponatremia and hypocalcemia. Patient is been followed closely by cardiology service and she is currently on Eliquis 2.5 mg twice a day for renal dosing. Nephrology service has been consulted yesterday. Patient with low sodium and calcium. Patient herself feels still generally tired today. No chest pain but she states she always have chronic dyspnea. Pain or complaints. No change in urine or bowel habits. No fever. Patient is afebrile slightly tachycardic with heart rate around 101. CBC is stable. Sodium is stable at 124 since yesterday. Parathyroidectomy is elevated at 543.2 with local shunt today at 6.8. 02/05/2020 Patient is awake and alert today but she reports she does not feel well without specific symptoms when I ask her if she has chest pain or dyspnea she has shown so I just feel not well. However she is fully awake and appropriate, she was hesitant to see the medical doctor today but she agreed to eventually. She wants to see only Dr. Burnett. Her symptoms and information was limited because patient lack of cooperation. Patient did not report any change in her urine or bowel habits or any leg symptoms. Vital signs stable and patient is afebrile. CBC looks stable. Creatinine is stable at 1.4 . Calcium today is better at 7.2. Her sodium is still low at 124 but is stable. Cardiology and nephrology team on the case. Chest x-ray: Cardiomegaly with no acute cardiopulmonary process by radiologist. Dr. Puri evaluated the patient for possible inpatient rehab I discussed the case with cardiology team and the recommend to hold on Eliquis today and tomorrow for possible surgical procedure with Dr. Burnett, she will need RETAIL STORE CLERK of left and right SFA . 02/06/2020 This is a pleasant 7 years old female admitted to the hospital on 01/31 for A. fib with RVR, status post cardioversion with persistent atrial fibrillation, also she has moderate to severe tricuspid regurgitation, her heart rate is still on the high side although it is better controlled, is 97-108. Also cardiology team are planning to do RETAIL STORE CLERK of left and right SFA. Eliquis has been held yesterday and today. Her ejection fraction is 35%. Also nephrology evaluated the patient for hypernatremia she is status post 1 dose of Tolvaptan , sodium today slightly better at 126, creatinine stable at 1.4 for her chronic kidney disease. Rest of her vitals and labs look stable when reviewed today Objective - Vital Signs Vital signs: Vital Signs Temp 97.0 F L 02/06/20 08:53 Pulse 97 02/06/20 08:53 Resp 18 02/06/20 08:53 BP 139/79 02/06/20 08:53 Pulse Ox 94 L 02/06/20 08:53 Intake & Output 02/05/20 02/06/20 02/06/20 18:59 06:59 18:59 Intake Total 180 Output Total 925 500 Balance -745 -500 Weight 90.2 kg Intake: Oral 180 Output: Urine 925 500 Other: Voiding Method Bedside Commode Bedside Commode # Voids 1 2 # Bowel Movements 1 - Exam GENERAL: The patient is alert and oriented x3, not in any acute distress. Well developed, well nourished. HEENT: Pupils are round and equally reacting to light. EOMI. No scleral icterus. No conjunctival pallor. Normocephalic, atraumatic. No pharyngeal erythema. No thyromegaly. CARDIOVASCULAR: S1 and S2 present. No murmurs, rubs, or gallops. PULMONARY: Chest is clear to auscultation, no wheezing or crackles. ABDOMEN: Soft, nontender, nondistended, normoactive bowel sounds. No palpable organomegaly. MUSCULOSKELETAL: No joint swelling or deformity. EXTREMITIES: No cyanosis, clubbing, or pedal edema. NEUROLOGICAL: Gross neurological examination did not reveal any focal deficits. SKIN: No rashes. no petechiae. - Labs CBC & Chem 7: 02/06/20 06:25 02/06/20 06:25 Labs: Abnormal Lab Results - Last 24 Hours (Table) 02/05/20 02/05/20 02/06/20 Range/Units 16:37 20:19 06:03 WBC (3.8-10.6) k/uL RBC (3.80-5.40) m/uL Hgb (11.4-16.0) gm/dL Hct (34.0-46.0) % MCV (80.0-100.0) fL RDW (11.5-15.5) % Lymphocytes # (1.0-4.8) k/uL Sodium (137-145) mmol/L Potassium (3.5-5.1) mmol/L Chloride (98-107) mmol/L BUN (7-17) mg/dL Creatinine (0.52-1.04) mg/dL Glucose (74-99) mg/dL POC Glucose (mg/dL) 175 H 164 H 134 H (75-99) mg/dL Calcium (8.4-10.2) mg/dL 02/06/20 02/06/20 02/06/20 Range/Units 06:25 06:25 11:57 WBC 3.7 L (3.8-10.6) k/uL RBC 3.02 L (3.80-5.40) m/uL Hgb 9.7 L (11.4-16.0) gm/dL Hct 30.9 L (34.0-46.0) % MCV 102.5 H (80.0-100.0) fL RDW 16.8 H (11.5-15.5) % Lymphocytes # 0.9 L (1.0-4.8) k/uL Sodium 126 L (137-145) mmol/L Potassium 5.2 H (3.5-5.1) mmol/L Chloride 95 L (98-107) mmol/L BUN 24 H (7-17) mg/dL Creatinine 1.40 H (0.52-1.04) mg/dL Glucose 112 H (74-99) mg/dL POC Glucose (mg/dL) 138 H (75-99) mg/dL Calcium 8.1 L (8.4-10.2) mg/dL Assessment and Plan Assessment: A. fib with RVR status post cardioversion with persistent atrial fibrillation Peripheral vascular disease of the lower extremity with cardioversion planned for RETAIL STORE CLERK of the left and right SFA Hyponatremia Moderate to severe tricuspid regurgitation Chronic kidney disease stage III Secondary pulmonary hypertension Type 2 diabetes mellitus Diabetic peripheral neuropathy Operative report Hyperlipidemia Hypertension History of coronary artery disease status post CABG Chronic kidney disease stage III Chronic gait dysfunction History of Urinary tract infection. Urine analysis from 01/30 is negative for infection Severe hypocalcemia, improving Plan: This is a pleasant 7 years old female who presents with A. fib and RVR and hyponatremia. Also she has severe TR and hypocalcemia . Cardiology on the case, discontinue with amiodarone and increase beta [place] according to their recommendation and Eliquis (hold during procedure by rehab director). Monitor heart rate Follow-up recommendation by pulp and paper tester. Follow-up electrolytes Labs and medication were reviewed.. Continue same treatment. Continue with symptomatic treatment. Resume home medication. Monitor lytes and vitals. DVT and GI prophylaxis. Further recommendationsas per clinical course of the patie nt DVT prophylaxis Eliquis (hold during procedure by rehab director) GI Prophylaxis: Pepcid PT/OT: Pending
--- NOTE | 2020-02-06 12:17 | PN ---
PROGRESS NOTE Patient is seen for followup for chronic kidney disease and acute kidney injury. She is going down for SFA intervention with Dr. Bunrett today. Renal function is stable, creatinine staying at about 1.4 mg/dL. Patient is also being followed for hyponatremia. She is status post one dose of tolvaptan yesterday. Serum sodium is up to 126. Overall, patient states she is feeling well. Denies any significant complaints. PHYSICAL EXAMINATION: Blood pressure 139/79, heart rate 97 per minute, she is afebrile. Examination of the heart S1, S2. Examination of lungs, bilateral breath sounds are heard. Abdomen is soft, nontender. Examination of the lower extremities shows no significant edema. LABS: Show sodium 126, potassium 5.2, chloride 95, BUN 24, creatinine 1.4, hemoglobin 9.7 g/dL. ASSESSMENT: 1. Hyponatremia, mildly hypervolemic, maintained on Lasix which I will continue, status post tolvaptan yesterday. Sodium has improved. I will repeat another dose of tolvaptan today. 2. Atrial fibrillation, persistent, status post cardioversion. 3. Peripheral vascular disease, scheduled for SFA intervention today. Okay to proceed with the procedure. Renal function is stable. 4. Chronic kidney disease stage 3, baseline creatinine 1.5 mg/dL. 5. Cardiomyopathy, ejection fraction 35%. 6. Anemia, most likely anemia of chronic disease. Iron deficiency is noted. I will add IV iron. PLAN: Start IV iron for iron deficiency. Repeat one dose of tolvaptan today. Repeat labs in a.m. MMODL / IJN: [id number] /
[2020-02-06] MEDS: SODIUM FERRIC GLUCONAT-SUCROSE 125 MG in SODIUM CHLORIDE 0.9% 100 ML IVPB SCH (12:43)
[2020-02-06] MEDS ORDERED: IV FLUID CONTINUATION 900 ML IV ONE (15:59)
[2020-02-06] MEDS: fentaNYL (PF) 50 MCG/ML 2 ML AMP IV ONE ×2 (16:24→16:59)
[2020-02-06] MEDS ORDERED: MIDAZOLAM 2 MG/2 ML VIAL IV ONE ×2 (16:24→16:59)
[2020-02-06] MEDS ORDERED: LIDOCAINE 1% INJ 10MG/ML (20 ML MDV) SQ ONE (16:25)
[2020-02-06] MEDS ORDERED: SODIUM CHLORIDE 0.9% 500 ML 500 ML with niCARdipine 6.25 MG, NITROGLYCERIN-D5W PMX 0.05... IV ONE ×4 (16:32)
[2020-02-06] MEDS ORDERED: HEPARIN SODIUM 1,000 UN/ML (10ML VL) IV ONE (16:39)
[2020-02-06] MEDS ORDERED: SODIUM CHLORIDE 0.9% 1,000 ML in EMPTY BAG 1 BAG IV SCH (17:30)
[2020-02-06] MEDS ORDERED: IOPAMIDOL-250 100ML BTL INTRAARTER ONE (17:31)
[2020-02-06] MEDS: FOLIC ACID 1 MG TAB PO SCH (18:06)
[2020-02-06] MEDS: CYANOCOBALAMIN 500 MCG TAB PO SCH (18:06)
[2020-02-06] MEDS ORDERED: ONDANSETRON 4 MG/2 ML VIAL IVP PRN (18:46)
[2020-02-06] MEDS: EZETIMIBE 10 MG TAB PO SCH (18:53)
[2020-02-06] MEDS: ATORVASTATIN 10 MG TAB PO SCH (18:54)
[2020-02-06 20:46] LABS: Glucose,Whole Blood 205 mg/dL (75-99)
--- NOTE | 2020-02-06 20:59 | PCN ---
PROCEDURE NOTE PERCUTANEOUS PERIPHERAL INTERVENTION: DATE OF SERVICE: 02/06/2020 PERFORMING PHYSICIAN: All Burnett M.D. PROCEDURES PERFORMED: 1. Atherectomy of the right SFA using the TurboHawk device. 2. Intravascular ultrasound (IVUS) of the right SFA. 3. Balloon angioplasty and stenting of the right SFA using a 6.0 x 80 mm Zilver PTX drug-coated stent with an excellent angiographic result. 4. Angiogram of the right SFA as well as right anterior tibial artery. COMPLICATIONS: None. LEVEL OF SEDATION: Moderate, with sedation length of 54 minutes. PROCEDURE INDICATION: Right lower extremity intermittent claudication. PROCEDURE DESCRIPTION: After obtaining informed consent, the patient was brought to the cardiac electronic lab technician. The right anterior tibial artery was cannulated using micropuncture technique under ultrasound guidance. The micropuncture wire passed easily. Then I placed a slender 5/6- [place] sheath at the right anterior tibial artery. Subsequently a cocktail drip consisting of verapamil and heparin as well as nitroglycerin was initiated. After that I did selective right anterior tibial artery angiogram to prove that I was in the true lumen. Subsequently I did right SFA angiogram with injection through a CXI catheter. 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 The SFA was extremely calcified. I crossed the chronic total occlusion using an 0.018 buckner-tipped Glidewire with the back-up support of an 0.018 CXI catheter. After that I did exchange my 0.018 wire for an 0.014 wire, where I did intravascular ultrasound which revealed the diameter of the SFA to be about 6 mm with extremely calcified eccentric lesion. Subsequently I did atherectomy using the TurboHawk device with extraction of significant plaque. After that I did balloon angioplasty using a Chocolate balloon, which was a 6 mm balloon. The following angiogram showed severe residual dissection which I decided to cover with a stent. I deployed a 6 x 80 mm Zilver PTX drug-coated stent where the stent was positioned under fluoroscopic guidance and deployed under fluoroscopic guidance. The stent was post-dilated using a 6 mm balloon. Final angiogram showed excellent angiographic results and the procedure was completed without any complication. POST-PROCEDURE MANAGEMENT: 1. Continue Eliquis in addition to aspirin. No need for Plavix. 2. Continue high-intensity statin. 3. Follow up with the patient. MMODL / IJN: [id number] /
[2020-02-06] MEDS: LINAGLIPTIN 5 MG TABLET PO SCH (22:50)
[2020-02-07] MEDS: traMADol 50 MG TAB PO PRN ×2 (00:55→17:37)
[2020-02-07 05:54] LABS: Glucose,Whole Blood 90 mg/dL (75-99)
[2020-02-07] MEDS: INSULIN ASPART (NovoLOG) 100 UNIT/ML VIAL SQ SCH ×4 (06:47→21:39)
[2020-02-07] MEDS: CALCIUM CARB-VIT D 500MG-200UN 1 EACH TAB PO SCH ×3 (06:49→17:38)
[2020-02-07] MEDS: FAMOTIDINE 20 MG/2 ML VIAL IV SCH (08:34)
[2020-02-07] MEDS: FUROSEMIDE 40 MG TAB PO SCH (08:35)
[2020-02-07] MEDS: TAMSULOSIN 0.4 MG CAP.ER.24H PO SCH (08:35)
[2020-02-07] MEDS: METOPROLOL SUCCINATE (ER) 25 MG TAB.ER.24H PO SCH (08:35)
[2020-02-07] MEDS: APIXABAN 2.5 MG TABLET PO SCH ×2 (08:35→21:38)
[2020-02-07] MEDS: ASPIRIN 81 MG PO SCH (08:35)
[2020-02-07] MEDS: metFORMIN 500 MG TAB PO SCH ×2 (08:35→21:38)
[2020-02-07] MEDS: PRIMIDONE 50 MG TAB PO SCH ×3 (08:35→17:38)
[2020-02-07] MEDS: GABAPENTIN 100 MG CAP PO SCH ×3 (08:35→21:38)
[2020-02-07] MEDS: COLCHICINE 0.6 MG EACH PO SCH ×2 (08:35→17:38)
[2020-02-07 09:02] LABS: Anisocytosis Slight; Basophils % (A) 0 %; Eosinophils # (A) 0.3 k/uL (0-0.7); Eosinophils % (A) 7 %; HCT 31.2 % (34.0-46.0); HGB 9.7 gm/dL (11.4-16.0); Hypochromasia Moderate; Lymphocytes # (A) 0.9 k/uL (1.0-4.8); Lymphocytes % (A) 18 %; MCH 32.5 pg (25.0-35.0); MCV 104.8 fL (80.0-100.0); Macrocytosis Moderate; Mean Platelet Volume 7.1; Monocytes # (A) 0.4 k/uL (0-1.0); Monocytes % (A) 7 %; Neutrophils # (A) 3.2 k/uL (1.3-7.7); Neutrophils % (A) 66 %; Platelet Count 199 k/uL (150-450); Poikilocytosis Slight; RBC 2.97 m/uL (3.80-5.40); RDW 16.3 % (11.5-15.5); WBC 4.8 k/uL (3.8-10.6)
[2020-02-07 09:08] LABS: Calcium 8.5 mg/dL (8.4-10.2); Potassium 5.3 mmol/L (3.5-5.1)
--- NOTE | 2020-02-07 09:19 | PN ---
PROGRESS NOTE DATE OF SERVICE: 02/07/2020 BRIEF HISTORY: This is a very pleasant 79-year-old female patient who was seen in the office recently and scheduled to undergo a INFORMATION SECURITY MANAGER of the right SFA after an angiogram revealed occluded right SFA and she was experiencing right leg intermittent claudication. Unfortunately, the patient ended in the hospital with atrial fibrillation with RVR and she underwent a cardioversion. She underwent yesterday successful recanalizing chronically occluded right SFA from right pedal approach. She was seen this morning. The right foot is warm. The site on the right pedal appears to be good. I am going to continue the aspirin and statin and resume her Eliquis at 2.5 mg p.o. b.i.d. The patient will follow up in the office as an outpatient once she is cleared from the cardiac standpoint of view. MMSARAH / IJN: [id number] /
[2020-02-07] MEDS: SODIUM FERRIC GLUCONAT-SUCROSE 125 MG in SODIUM CHLORIDE 0.9% 100 ML IVPB SCH (10:24)
--- NOTE | 2020-02-07 10:51 | IR ---
Fluoroscopy HISTORY: Peripheral vascular occlusive disease 9.9 minutes fluoroscopy time supplied to the referring clinician. 90 intraoperative C-arm images doc ument the procedure. See dictated report from cardiology.
[2020-02-07] MEDS ORDERED: METOPROLOL SUCCINATE (ER) 25 MG TAB.ER.24H PO STA (11:30)
--- NOTE | 2020-02-07 11:33 | P.PN ---
Subjective HISTORY OF PRESENTING ILLNESS This is a pleasant 79-year-old female past medical history significant for coronary artery disease s/p bypass grafting, peripheral vascular disease, hypertension, diabetes mellitus, dyslipidemia, atrial flutter, chronic kidney disease and former nicotine dependence. She follows in the office with Dr. Burnett. She continues to be in atrial flutter. Blood pressure 161/87 heart rate 114. She is complaining of pain in the right foot. Dr. Burnett did SFA intervention via right pedal access yesterday. She had atherectomy, IVUS, balloon angioplasty and stent placement to the right SFA. Laboratory data reviewed, WBC 4.8, hemoglobin 9.7, platelets 199, sodium 1:30, potassium 5.3, creatinine 1.36. Currently maintained on Eliquis 2.5 mg twice a day, aspirin 81 mg daily, atorvastatin 10 mg daily, Zetia 10 mg daily, Lasix 40 mg daily and Toprol 75 mg daily. PHYSICAL EXAMINATION CONSTITUTIONAL: No apparent distress. HEENT: Head is normocephalic. Pupils are equal, round. Sclerae anicteric. Mucous membranes of the mouth are moist. No JVD. No carotid bruit. CHEST EXAMINATION: Lungs are clear to auscultation. No chest wall tenderness is noted on palpation or with deep breathing. HEART EXAMINATION: Irregular rate and rhythm. S1, S2 heard. Systolic ejection murmur at the left sternal border, no gallops or rub. EXTREMITIES: 1+ peripheral pulses, no lower extremity edema and no calf tenderness. Bilateral lower extremity tenderness to touch and erythema. ASSESSMENT Persistent atrial flutter, typical Peripheral vascular disease status post right SFA atherectomy, SANJEEV, balloon angioplasty and stent placement Coronary artery disease s/p bypass grafting Hypertension Dyslipidemia Diabetes mellitus Chronic kidney disease Former nicotine dependence PLAN Increase atorvastatin to 40 mg daily and continue zetia. Increase toprol to 100 mg daily, give additional 25 mg now. Right foot access site is stable and warm. She will require atrial flutter ablation down the road. This can be arranged as an outpatient. Follow up in the office with Dr. Burnett in 1-week. Nurse Practitioner note has been reviewed, I agree with a documented findings and plan of care. Patient was seen and examined. Objective - Vital Signs Vital signs: Vital Signs Temp 97.6 F 02/07/20 08:00 Pulse 114 H 02/07/20 08:00 Resp 18 02/07/20 08:00 BP 161/87 02/07/20 08:00 Pulse Ox 95 02/07/20 08:00 Intake & Output 02/06/20 02/07/20 02/07/20 18:59 06:59 18:59 Intake Total 320 236 Output Total 1600 900 300 Balance -1280 -900 -64 Weight 88.3 kg Intake: IV 320 Oral 236 Output: Urine 1600 900 300 Other: Voiding Method Bedside Commode Bedside Commode # Voids 2 2 1 - Labs CBC & Chem 7: 02/07/20 07:59 02/07/20 07:59 Labs: Abnormal Lab Results - Last 24 Hours (Table) 02/06/20 02/06/20 02/07/20 Range/Units 11:57 20:44 07:59 RBC 2.97 L (3.80-5.40) m/uL Hgb 9.7 L (11.4-16.0) gm/dL Hct 31.2 L (34.0-46.0) % MCV 104.8 H (80.0-100.0) fL RDW 16.3 H (11.5-15.5) % Lymphocytes # 0.9 L (1.0-4.8) k/uL Sodium (137-145) mmol/L Potassium (3.5-5.1) mmol/L Chloride (98-107) mmol/L BUN (7-17) mg/dL Creatinine (0.52-1.04) mg/dL POC Glucose (mg/dL) 138 H 205 H (75-99) mg/dL 02/07/20 Range/Units 07:59 RBC (3.80-5.40) m/uL Hgb (11.4-16.0) gm/dL Hct (34.0-46.0) % MCV (80.0-100.0) fL RDW (11.5-15.5) % Lymphocytes # (1.0-4.8) k/uL Sodium 130 L (137-145) mmol/L Potassium 5.3 H (3.5-5.1) mmol/L Chloride 97 L (98-107) mmol/L BUN 20 H (7-17) mg/dL Creatinine 1.36 H (0.52-1.04) mg/dL POC Glucose (mg/dL) (75-99) mg/dL
--- NOTE | 2020-02-07 11:41 | PN ---
PROGRESS NOTE Patient is seen for followup for acute kidney injury and chronic kidney disease as well as hyponatremia. She has received 2 doses of tolvaptan. Her sodium is up to 130 today. Patient did have the atherectomy of right SFA yesterday with Dr. Burnett with balloon angioplasty and stenting of SFA. She is complaining of significant pain in her right leg. No chest pains or shortness of breath. Serum creatinine is 1.3 today. Patient did receive IV fluids. Potassium is at 5.3. Patient has good urine output. PHYSICAL EXAMINATION: Today blood pressure is 161/87, heart rate 114 per minute, she is afebrile. Examination of the heart S1, S2. Examination of the lungs, bilateral breath sounds are heard. Abdomen is soft, nontender, obese. Examination of the lower extremities shows edema noted bilaterally which is stable. Trace edema is seen. MOBILE EQUIPMENT SERVICER exam grossly intact. LABS: Show sodium 130, potassium 5.3, chloride 97, BUN 20, creatinine 1.36, hemoglobin 9.7 g/dL. ASSESSMENT: 1. Chronic kidney disease NKF stage 3, baseline creatinine about 1.5. Serum creatinine down to 1.3, status post IV fluids. 2. Mild volume overload. Continue with low-dose Lasix. 3. Peripheral vascular disease, status post stenting of SFA yesterday with Dr. Burnett. 4. Hyponatremia which is hypervolemic, status post 2 doses of tolvaptan, sodium up to 130 today. Continue with the oral Lasix. Patient is encouraged to decrease her free water intake. 5. Atrial fibrillation, status post cardioversion, now in sinus rhythm. 6. Anemia, mostly anemia of chronic disease. Patient also has iron deficiency, currently receiving IV iron. 7. Hypertension, blood pressure is high, currently secondary to pain. PLAN: Continue with oral Lasix, repeat labs in a.m. No need for tolvaptan today. Restrict free water intake. MMODL / IJN: [id number] /
[2020-02-07] MEDS: CALCIUM GLUCONATE 1 GM in SODIUM CHLORIDE 0.9% 100 ML IVPB SCH ×2 (11:47→21:39)
[2020-02-07 11:50] LABS: Glucose,Whole Blood 172 mg/dL (75-99)
[2020-02-07] MEDS: FOLIC ACID 1 MG TAB PO SCH (16:22)
[2020-02-07] MEDS: CYANOCOBALAMIN 500 MCG TAB PO SCH (16:22)
[2020-02-07 17:02] LABS: Glucose,Whole Blood 116 mg/dL (75-99)
[2020-02-07] MEDS: EZETIMIBE 10 MG TAB PO SCH (17:40)
[2020-02-07] MEDS ORDERED: ATORVASTATIN 40 MG TAB PO SCH (18:00)
--- NOTE | 2020-02-07 19:07 | P.PN ---
Progress Note - Text Progress Note Date: 02/07/20 Chief Complaint: Increased heart rate History of presenting complaint: This is a pleasant 79-year-old patient of Dr. Greg Kline. Chronic stable medical conditions include COPD, diabetes, hyperlipidemia, hypertension, parkinsonism, sleep apnea, coronary artery disease with prior bypass. CHF combined with systolic and diastolic dysfunction EF 45-50%. Normally lives alone and gets uses a walker to get about. January 23 through January 25 with hyperkalemia and atrial flutter with a rapid ventricular rate. Currently sinus rhythm. Discharged patient had gone to her family doctor yesterday. Unable to make urine. Sent to the ER. Bladder scan showed about 40 mL of urine and a Cuevas was placed. Patient was discovered to be in atrial flutter with a rapid ventricular rate. No chest pain or palpitation no dizziness no lightheadedness. Patient's place of the [facility] drip and admitted. Appetite is fair. Patient underwent right superficial femoral artery angioplasty by Dr. Mcmullen for intermittent claudication and rest pain. Today-sitting up in bed. Heart rate up in 1 teens. Extra dose of Toprol-XL 25 mg given today. Occasional chest fullness. Eating okay. Review of systems: Was done for constitutional, cardiovascular, GI, pulmonary. relevant finding as above Active Medications Albuterol Sulfate (Albuterol Nebulized 2.5 Mg/3 Ml) 2.5 mg INHALATION RT-QID PRN PRN Reason: Shortness Of Breath Apixaban (Apixaban 2.5 Mg Tablet) 2.5 mg PO BID [facility] Last Admin: 02/07/20 08:35 Dose: 2.5 mg Documented by: Aspirin (Aspirin 81 Mg) 81 mg PO DAILY@0900 [facility] Last Admin: 02/07/20 08:35 Dose: 81 mg Documented by: Atorvastatin Calcium (Atorvastatin 40 Mg Tab) 40 mg PO DAILY@1800 [facility] Last Admin: 02/07/20 17:38 Dose: 40 mg Documented by: Calcium Carbonate (Calcium Carb-Vit D 500mg-200un 1 Each Tab) 1 each PO TID-W /MEALS [facility] Last Admin: 02/07/20 17:38 Dose: 1 each Documented by: Colchicine (Colchicine 0.6 Mg Each) 0.6 mg PO BID@0900,1800 [facility] Last Admin: 02/07/20 17:38 Dose: 0.6 mg Documented by: Cyanocobalamin (Cyanocobalamin 500 Mcg Tab) 500 mcg PO DAILY@1500 [facility] Last Admin: 02/07/20 16:22 Dose: 500 mcg Documented by: Ezetimibe (Ezetimibe 10 Mg Tab) 10 mg PO DAILY@1800 [facility] Last Admin: 02/07/20 17:40 Dose: 10 mg Documented by: Famotidine (Famotidine 20 Mg Tab) 20 mg PO DAILY [facility] Folic Acid (Folic Acid 1 Mg Tab) 1 mg PO DAILY@1500 [facility] Last Admin: 02/07/20 16:22 Dose: 1 mg Documented by: Furosemide (Furosemide 40 Mg Tab) 40 mg PO DAILY@0900 [facility] Last Admin: 02/07/20 08:35 Dose: 40 mg Documented by: Gabapentin (Gabapentin 100 Mg Cap) 100 mg PO TID [facility] Last Admin: 02/07/20 16:22 Dose: 100 mg Documented by: Calcium Gluconate 1 gm/ Sodium (Chloride) 110 mls @ 100 mls/hr IVPB BID [facility] Last Admin: 02/07/20 11:47 Dose: 100 mls/hr Documented by: Ferric Sodium Gluconate 125 mg (/ Sodium Chloride) 110 mls @ 100 mls/hr IVPB DAILY [facility] Stop: 02/08/20 23:59 Last Admin: 02/07/20 10:24 Dose: 100 mls/hr Documented by: Insulin Aspart (Insulin Aspart (Novolog) 100 Unit/Ml Vial) 0 unit SQ ACHS [facility]; Protocol Last Admin: 02/07/20 17:48 Dose: Not Given Documented by: Linagliptin (Linagliptin 5 Mg Tablet) 5 mg PO HS [facility] Last Admin: 02/06/20 22:50 Dose: 5 mg Documented by: Metformin HCl (Metformin 500 Mg Tab) 1,000 mg PO BID [facility] Last Admin: 02/07/20 08:35 Dose: 1,000 mg Documented by: Metoprolol Succinate (Metoprolol Succinate (Er) 100 Mg Tab.Er.24h) 100 mg PO DAILY [facility] Naloxone HCl (Naloxone 0.4 Mg/Ml 1 Ml Vial) 0.2 mg IV Q2M PRN PRN Reason: Opioid Reversal Ondansetron HCl (Ondansetron 4 Mg/2 Ml Vial) 4 mg IVP Q6HR PRN PRN Reason: Nausea And Vomiting Primidone (Primidone 50 Mg Tab) 50 mg PO DAILY@0900 [facility] Last Admin: 02/07/20 08:35 Dose: 50 mg Documented by: Primidone (Primidone 50 Mg Tab) 100 mg PO DAILY@1800 [facility] Last Admin: 02/07/20 17:38 Dose: 100 mg Documented by: Tamsulosin HCl (Tamsulosin 0.4 Mg Cap.Er.24h) 0.4 mg PO PC-BRKFST [facility] Last Admin: 02/07/20 08:35 Dose: 0.4 mg Documented by: Tramadol HCl (Tramadol 50 Mg Tab) 50 mg PO QID PRN PRN Reason: Pain Last Admin: 02/07/20 17:37 Dose: 50 mg Documented by: Physical examination: VITAL SIGNS: 97.6, 114, 18, 157/67, 99% room air GENERAL: Sitting up on the bed, awake comfortable EYES: Pupils equal. Conjunctiva normal. HEENT: External appearance of nose and ears normal, oral cavity grossly normal. Scant scalp hair NECK: JVD not raised; masses not palpable. HEART: Irregular heart beat; edema present LUNGS: Respiratory rate increased, diminished breath sounds ABDOMEN: Soft, nontender, liver spleen not palpable, no masses palpable. PSYCH: Alert and oriented x3; mood and affect normal. DERMATOLOGICAL: Dry skin, with dystrophic nails. INVESTIGATIONS, reviewed in the clinical context: White count 4.8 hemoglobin 9.7 potassium 5.3 creatinine 1.36 Admission testing White count 4.3 hemoglobin 10.3 platelets 179 potassium 4.9 bun 40 creatinine 1.58 Assessment: -Paroxysmal atrial flutter, presenting with a rapid ventricular rate, POA-uncon trolled -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 -Moderate severe tricuspid regurgitation -Diabetes mellitus type 2 with diabetic peripheral neuropathy -Obesity BMI 39 -Hyperlipidemia -Essential hypertension -Coronary artery disease with prior history of bypass -Chronic kidney disease stage III from diabetic nephropathy and hypertensive nephrosclerosis. -Chronic gait dysfunction does use a walker -Urine outflow obstruction -Peripheral arterial disease-stenting of the right superficial femoral artery. For intermittent claudication by Dr. Mcmullen -Salvador indifferent to see anemia. Receiving IV iron Plan: She received extra dose of Toprol-XL 25 mg daily. We'll see how the heart rate does. Other medications to continue. Patient return to [facility]. Follow-up ca rdiology and nephrology. Also getting IV iron..
[2020-02-07 20:03] VITALS: RESP 18
[2020-02-07 20:58] LABS: Glucose,Whole Blood 203 mg/dL (75-99)
[2020-02-07] MEDS: LINAGLIPTIN 5 MG TABLET PO SCH (21:38)
[2020-02-08] MEDS: traMADol 50 MG TAB PO PRN ×2 (00:42→09:48)
[2020-02-08 06:27] LABS: Glucose,Whole Blood 122 mg/dL (75-99)
[2020-02-08] MEDS: INSULIN ASPART (NovoLOG) 100 UNIT/ML VIAL SQ SCH ×2 (06:46→12:06)
[2020-02-08] MEDS: CALCIUM CARB-VIT D 500MG-200UN 1 EACH TAB PO SCH ×2 (06:48→12:07)
[2020-02-08 06:59] LABS: Anisocytosis Slight; Basophils % (A) 1 %; Eosinophils # (A) 0.3 k/uL (0-0.7); Eosinophils % (A) 7 %; HGB 9.3 gm/dL (11.4-16.0); Hypochromasia Moderate; Lymphocytes # (A) 1.2 k/uL (1.0-4.8); Lymphocytes % (A) 26 %; MCH 33.5 pg (25.0-35.0); MCHC 32.1 g/dL (31.0-37.0); MCV 104.3 fL (80.0-100.0); Macrocytosis Moderate; Mean Platelet Volume 7.1; Monocytes # (A) 0.3 k/uL (0-1.0); Monocytes % (A) 6 %; Neutrophils # (A) 2.6 k/uL (1.3-7.7); Neutrophils % (A) 57 %; Platelet Count 191 k/uL (150-450); RBC 2.78 m/uL (3.80-5.40); RDW 16.3 % (11.5-15.5); WBC 4.6 k/uL (3.8-10.6)
[2020-02-08 07:07] LABS: Potassium 5.5 mmol/L (3.5-5.1)
[2020-02-08] MEDS ORDERED: FAMOTIDINE 20 MG TAB PO SCH (09:00)
[2020-02-08] MEDS ORDERED: METOPROLOL SUCCINATE (ER) 100 MG TAB.ER.24H PO SCH (09:00)
[2020-02-08] MEDS ORDERED: FUROSEMIDE 10 MG/ML 4 ML VIAL IV STA (09:14)
[2020-02-08 09:38] VITALS: TEMP 97.3
[2020-02-08] MEDS: TAMSULOSIN 0.4 MG CAP.ER.24H PO SCH (09:39)
[2020-02-08] MEDS: metFORMIN 500 MG TAB PO SCH (09:41)
[2020-02-08] MEDS: ASPIRIN 81 MG PO SCH (09:41)
[2020-02-08] MEDS: COLCHICINE 0.6 MG EACH PO SCH (09:41)
[2020-02-08] MEDS: FUROSEMIDE 40 MG TAB PO SCH (09:41)
[2020-02-08] MEDS: GABAPENTIN 100 MG CAP PO SCH ×2 (09:41→15:08)
[2020-02-08] MEDS: APIXABAN 2.5 MG TABLET PO SCH (09:41)
[2020-02-08] MEDS: SODIUM FERRIC GLUCONAT-SUCROSE 125 MG in SODIUM CHLORIDE 0.9% 100 ML IVPB SCH (09:42)
[2020-02-08] MEDS: PRIMIDONE 50 MG TAB PO SCH (09:42)
[2020-02-08] MEDS ORDERED: TOLVAPTAN 15 MG 1/2 TABLET PO ONE (10:00)
[2020-02-08] MEDS: CALCIUM GLUCONATE 1 GM in SODIUM CHLORIDE 0.9% 100 ML IVPB SCH (11:03)
[2020-02-08 11:06] VITALS: BP 120/73; PULSE 109
[2020-02-08 11:57] LABS: Glucose,Whole Blood 137 mg/dL (75-99)
--- NOTE | 2020-02-08 11:59 | P.PN ---
Subjective Progress Note Date: 02/08/20 This is a pleasant 79-year-old female with past medical history significant for coronary artery disease and prior bypass surgery, peripheral vascular disease, hypertension, diabetes, hyperlipidemia, typical atrial flutter, chronic kidney disease, and former nicotine dependence. She follows with Dr. Mcmullen in the office. She continues this morning to be in atrial flutter, Blood pressure 120/70 with a heart rate of 108-114, 90% on room air.patient has undergone SFA intervention, by arthrectomy, SANJEEV, balloon angioplasty and stenting of the right SFA. Her foot is warm today, palpable pulse.White blood cell count 4.6, hemoglobin 9.3, platelet count 191. Sodium 128, potassium 5.5, BUN 20, creatinine 0.5. Objective - Vital Signs Vital signs: Vital Signs Temp 97.3 F L 02/08/20 08:00 Pulse 109 H 02/08/20 11:06 Resp 18 02/08/20 11:06 BP 120/73 02/08/20 11:06 Pulse Ox 90 L 02/08/20 11:06 Intake & Output 02/07/20 02/08/20 02/08/20 18:59 06:59 18:59 Intake Total 1108 0 Output Total 2000 500 Balance -892 -500 0 Weight 87.3 kg Intake: Oral 1108 0 Output: Urine 1999 500 Other: Voiding Method Bedside Commode # Voids 2 1 - Exam PHYSICAL EXAMINATION CONSTITUTIONAL: No apparent distress. HEENT: Head is normocephalic. Pupils are equal, round. Sclerae anicteric. Mucous membranes of the mouth are moist. No JVD. No carotid bruit. CHEST EXAMINATION: Lungs are clear to auscultation. No chest wall tenderness is noted on palpation or with deep breathing. HEART EXAMINATION: Irregular rate and rhythm. S1, S2 heard. Systolic ejection murmur at the left sternal border, no gallops or rub. EXTREMITIES: 1+ peripheral pulses, no lower extremity edema and no calf tenderness. Bilateral lower extremity tenderness to touch and erythema. - Labs CBC & Chem 7: 02/08/20 06:14 02/08/20 06:14 Labs: Abnormal Lab Results - Last 24 Hours (Table) 02/07/20 02/07/20 02/08/20 Range/Units 17:01 20:51 06:14 RBC 2.78 L (3.80-5.40) m/uL Hgb 9.3 L (11.4-16.0) gm/dL Hct 29.0 L (34.0-46.0) % MCV 104.3 H (80.0-100.0) fL RDW 16.3 H (11.5-15.5) % Sodium (137-145) mmol/L Potassium (3.5-5.1) mmol/L Chloride (98-107) mmol/L BUN (7-17) mg/dL Creatinine (0.52-1.04) mg/dL Glucose (74-99) mg/dL POC Glucose (mg/dL) 116 H 203 H (75-99) mg/dL 02/08/20 02/08/20 Range/Units 06:14 06:25 RBC (3.80-5.40) m/uL Hgb (11.4-16.0) gm/dL Hct (34.0-46.0) % MCV (80.0-100.0) fL RDW (11.5-15.5) % Sodium 128 L (137-145) mmol/L Potassium 5.5 H (3.5-5.1) mmol/L Chloride 94 L (98-107) mmol/L BUN 20 H (7-17) mg/dL Creatinine 1.50 H (0.52-1.04) mg/dL Glucose 105 H (74-99) mg/dL POC Glucose (mg/dL) 122 H (75-99) mg/dL Assessment and Plan Plan: ASSESSMENT AND PLAN #1Persistent atrial flutter, typical #2Peripheral vascular disease status post right SFA atherectomy, SANJEEV, balloon angioplasty and stent placement #3Coronary artery disease s/p bypass grafting #4Hypertension #5Dyslipidemia #6Diabetes mellitus #7Chronic kidney disease #8Former nicotine dependence Plan Patient's heart rate continues to be in the 100s to 1 teens range. We will increase her dose of beta r[place] to 150mg giving the additional dose now. We will continue to monitor the patient. She will be going to extended care for rehab post discharge. DNP note has been reviewed, I agree with a documented findings and plan of care. Patient was seen and examined.
--- NOTE | 2020-02-08 12:42 | CT ---
EXAMINATION TYPE: CT brain wo con DATE OF EXAM: 02/08/2020 HISTORY: Weakness CT DLP: 1099.4 mGycm. Automated Exposure Control for Dose Reduction was Utilized. TECHNIQUE: CT scan of the head is performed without contrast. COMPARISON: None. FINDINGS: There is no acute intracranial hemorrhage or midline shift identified. There is diffuse v entricular and sulcal prominence consistent with diffuse age-related cerebral atrophy. There is low- attenuation in the periventricular white matter consistent with chronic small vessel ischemic change. Hyperostosis frontalis. The globes are intact and the visualized sinuses are clear. IMPRESSION: No acute intracranial hemorrhage or midline shift. There is mild to moderate diffuse ce rebral atrophy and moderate chronic small vessel ischemic change noted.
--- NOTE | 2020-02-08 13:33 | P.CNNES ---
History of Present Illness Consult date: 02/08/20 Requesting physician: David Jim History of Present Illness: This is an 79 y/o right-handed woman with medical history of atrial fibrillation status post cardioversion during this hospital stay, diabetes, hyperlipidemia, hypertension, sleep apnea, coronary artery disease status post bypass, peripheral vascular disease, congestive heart failure, COPD presented to the emergency department on 01/31/2020 for urinary retention. She is obtained from medical records. During her hospital stay and was discovered to the patient has atrial flutter with RVR. It seems that the patient had an January 25 that had atrial flutter with RVR as well. During her hospital stay she was placed on the Cardizem drip. And then eventually had cardioversion. So during this hospital stay regarding the patient peripheral vascular disease that she had atherectomy angioplasty and stents placement on 02/06/2020. Neurology team was consulted for questionable transient ischemic attack for left facial droop and slurring of the speech. Per the patient's nurse, today between 10:00 or 11:00AM the nurse noticed that the patient woke-up from bed and nurse noticed left facial droop which was significant and slurring of the speech. Otherwise she didn't have any focality on examination. Then after being more awake she felt the facial droop has improved as well as the slurring of the speech but has not resolved. Last normal seen was around 9:30 AM today (02/08/2020). The patient was taken to CT head STAT. The patient is on Eliquis 2.5 mg twice a day, aspirin 81 mg daily patient is also on Lipitor 40 mg daily. Patient last progress the study is on 01/29/2020: PT 10.2, INR 1.0 and PTT of 26.3. The glucose today around 11:56 AM is 137. Patient lives alone and she uses a walker to get around. It is documented in the patient has history of Parkinson's disease but the patient that denies that. Review of Systems Review of system: The 12 point system was reviewed and apparent positive and negative per HPI. Past Medical History Past Medical History: COPD, Diabetes Mellitus, Hyperlipidemia, Hypertension, Myocardial Infarction ([place]), Sleep Apnea/CPAP/BIPAP Additional Past Medical History / Comment(s): tremors,NO left arm blood draw or blood pressure(vessel harvested for CABG), blockages in angelica legs, Coonstipation, gout, PAD Last Myocardial Infarction Date:: 1999 History of Any Multi-Drug Resistant Organisms: None Reported Past Surgical History: Appendectomy, Coronary Bypass/CABG, Heart Catheterization, Hysterectomy, Tonsillectomy Additional Past Surgical History / Comment(s): angiogram. Right neck lymphnode removal Past Anesthesia/Blood Transfusion Reactions: No Reported Reaction Past Psychological History: No Psychological Hx Reported Smoking Status: Former smoker Past Alcohol Use History: None Reported Past Drug Use History: None Reported - Past Family History Mother Family Medical History: COPD, Myocardial Infarction ([place]) Brother(s) Family Medical History: Cancer Additional Family Medical History / Comment(s): LUNG CANCER Son(s) Family Medical History: Cancer Additional Family Medical History / Comment(s): COLON CANCER Sister(s) Family Medical History: Cancer Additional Family Medical History / Comment(s): (2) SISTERS HAD BREAST CANCER. Medications and Allergies Home Medications Medication Instructions Recorded Confirmed Type Ezetimibe [Zetia] 10 mg PO DAILY@1800 11/20/13 01/31/20 History Lovastatin [Mevacor] 10 mg PO DAILY@1800 11/20/13 01/31/20 History sitaGLIPtin PHOS/metFORMIN HCL 1 tab PO BID 08/20/16 01/31/20 History [Janumet 50-1,000 mg Tablet] Aspirin EC [Ecotrin Low Dose] 81 mg PO DAILY@0900 01/25/19 01/31/20 History Colchicine [Colcrys] 0.6 mg PO BID@0900,1800 01/25/19 01/31/20 History Primidone [Mysoline] 50 mg PO DAILY@0900 01/25/19 01/31/20 History Primidone [Mysoline] 100 mg PO DAILY@1800 01/25/19 01/31/20 History Albuterol Inhaler [Ventolin Hfa 2 puff INHALATION RT-QID PRN 10/19/19 01/31/20 History Inhaler] Folic Acid(Unknown Dose) 1 tab PO DAILY@1500 10/19/19 01/31/20 History Vitamin B-12(Unknown Dose) 1 tab PO DAILY@1500 10/19/19 01/31/20 History Furosemide [Lasix] 40 mg PO DAILY@0900 12/24/19 01/31/20 History Denosumab [Prolia] 60 mg SQ Q180D 01/23/20 01/31/20 History Apixaban [Eliquis] 2.5 mg PO BID #60 tablet 01/26/20 01/31/20 Rx Calcium Carb-Vit D 500Mg-200Un 1 each PO TID-W/MEALS tab 02/08/20 Rx [Oscal 500+D] Famotidine [Pepcid] 20 mg PO DAILY tab 02/08/20 Rx Gabapentin [Neurontin] 100 mg PO TID #9 cap 02/08/20 Rx INSULIN ASPART (NovoLOG) [NovoLOG 0 unit SQ ACHS vial 02/08/20 Rx (formulary)] Metoprolol Succinate (ER) [Toprol 150 mg PO DAILY tab.er.24h 02/08/20 Rx XL] Tamsulosin [Flomax] 0.4 mg PO PC-BRKFST cap.er.24h 02/08/20 Rx Allergies Allergy/AdvReac Type Severity Reaction Status Date / Time albuterol [From DuoNeb] AdvReac Nausea Verified 01/31/20 19:17 cortisone AdvReac PAIN Verified 01/31/20 19:17 hydrocodone AdvReac Nausea Verified 01/31/20 19:17 ipratropium [From DuoNeb] AdvReac Nausea Verified 01/31/20 19:17 procaine HCl [From Novocain] AdvReac pain Verified 01/31/20 19:17 allergy medicines AdvReac "dries me Uncoded 01/31/20 16:48 out, bloody noses,generalized pain" Physical Examination - Vital Signs Vital Signs: Vital Signs Temp Pulse Pulse Resp BP BP Pulse Ox 02/08/20 11:06 109 H 18 120/73 90 L 02/08/20 08:00 97.3 F L 112 H 101 H 18 147/89 92 L 02/08/20 04:00 96.9 F L 111 H 18 127/77 93 L 02/08/20 00:00 97.1 F L 113 H 18 132/81 94 L 02/07/20 20:00 96.9 F L 68 18 168/78 98 02/07/20 16:00 67 17 Intake and Output 02/07/20 02/08/20 02/08/20 22:59 06:59 14:59 Intake Total 636 0 Output Total 1850 350 Balance -1214 -350 0 Intake: Oral 636 0 Output: Urine 1850 350 Other: Voiding Method Bedside Commode # Voids 1 1 Weight 87.3 kg GENERAL: The patient is lying in bed and is not in acute distress. CHEST: The heart rate is regular rate rhythm. No murmurs to auscultation. No carotid bruit bilaterally. LUNG: Clear to auscultation bilaterally no wheezing noted throughout. Not labored breathing. ABDOMEN/GI: Bowel sounds present in all 4 quadrants. No tenderness to palpation throughout. NEUROLOGICAL: Higher mental function: The patient is awake, alert, oriented to self, place and time. Patient is following commands. No aphasia and no neglect. Cranial nerves: The pupils are round, equal and reactive to light and accommodation. Visual tate are full to confrontation throughout. Extraocular movement is intact no nystagmus is noted. Facial sensation is normal to touch throughout. The facial strength is normal throughout. Hearing is normal bilaterally to hand rub. Tongue is midline and moved [id number] without any difficulty. No dysarthria is noted. Shoulder shrug is normal bilaterally. Motor: Gait is defered, since patient refused. The strength is 5- over bilateral hand periodicals library assistant. 5/5 over the bilateral upper extremities. Had hard time fully assessing bilateral lower extremities but no focality over bilateral lower extremities. Normal tone and bulk. No resting tremor seen. Cerebellum: Normal finger to nose bilaterally. Had tremor at end of target on finger to nose. Sensation: Sensation is normal to touch throughout. Reflexes (right/left): 1+ throughout. Plantars are downgoing bilaterally. Results Sodium last is 128. Gen. hospital stay it's been hovering between predominantly 124 to 1:0. On presentation the hospital was 132. Her baseline sodium is 137- 142 TSH on 02/01/2020 as 3.52 which is normal. AST: 39. ALT of 28. Urine analysis on 01/31/2020 was not suggestive of urinary tract infection. - Laboratory Findings CBC and BMP: 02/08/20 06:14 02/08/20 06:14 Abnormal Lab Findings: Abnormal Labs 01/31/20 01/31/20 01/31/20 17:20 17:30 17:30 WBC RBC 3.11 L Hgb 10.3 L Hct 32.2 L MCV 103.6 H RDW 16.2 H Lymphocytes # 0.9 L Sodium 132 L Potassium Chloride Carbon Dioxide 20 L BUN 40 H Creatinine 1.58 H Glucose 131 H POC Glucose (mg/dL) Plasma Lactic Acid Roderick Calcium 5.7 L* Iron % Saturation AST 39 H Alkaline Phosphatase 148 H PTH Intact Urine Protein Trace H 01/31/20 01/31/20 02/01/20 17:30 21:26 08:05 WBC RBC 3.04 L Hgb 9.8 L Hct 31.0 L MCV 102.3 H RDW 16.7 H Lymphocytes # 0.9 L Sodium Potassium Chloride Carbon Dioxide BUN Creatinine Glucose POC Glucose (mg/dL) 207 H Plasma Lactic Acid Roderick 2.6 H* Calcium Iron % Saturation AST Alkaline Phosphatase PTH Intact Urine Protein 02/01/20 02/01/20 02/01/20 08:05 08:09 12:29 WBC RBC Hgb Hct MCV RDW Lymphocytes # Sodium 129 L Potassium Chloride Carbon Dioxide 20 L BUN 36 H Creatinine 1.36 H Glucose 141 H POC Glucose (mg/dL) 159 H 174 H Plasma Lactic Acid Roderick Calcium 5.4 L* Iron % Saturation AST Alkaline Phosphatase PTH Intact Urine Protein 02/01/20 02/01/20 02/02/20 16:28 20:06 06:09 WBC RBC Hgb Hct MCV RDW Lymphocytes # Sodium Potassium Chloride Carbon Dioxide BUN Creatinine Glucose POC Glucose (mg/dL) 194 H 168 H 177 H Plasma Lactic Acid Roderick Calcium Iron % Saturation AST Alkaline Phosphatase PTH Intact Urine Protein 02/02/20 02/02/20 02/02/20 11:39 16:46 17:59 WBC RBC Hgb Hct MCV RDW Lymphocytes # Sodium 125 L Potassium Chloride 94 L Carbon Dioxide BUN 36 H Creatinine 1.61 H Glucose 219 H POC Glucose (mg/dL) 190 H 216 H Plasma Lactic Acid Roderick Calcium 5.3 L* Iron % Saturation AST Alkaline Phosphatase PTH Intact Urine Protein 02/02/20 02/03/20 02/03/20 19:41 06:03 06:34 WBC RBC 2.87 L Hgb 9.6 L Hct 30.0 L MCV 104.3 H RDW 16.5 H Lymphocytes # Sodium Potassium Chloride Carbon Dioxide BUN Creatinine Glucose POC Glucose (mg/dL) 202 H 149 H Plasma Lactic Acid Roderick Calcium Iron % Saturation AST Alkaline Phosphatase PTH Intact Urine Protein 02/03/20 02/03/20 02/03/20 06:34 11:39 15:42 WBC RBC Hgb Hct MCV RDW Lymphocytes # Sodium 124 L Potassium Chloride 93 L Carbon Dioxide BUN 33 H Creatinine 1.65 H Glucose 123 H POC Glucose (mg/dL) 198 H Plasma Lactic Acid Roderick Calcium 5.6 L* Iron % Saturation AST Alkaline Phosphatase PTH Intact 503.2 H Urine Protein 02/03/20 02/03/20 02/04/20 16:42 20:02 06:27 WBC RBC Hgb Hct MCV RDW Lymphocytes # Sodium Potassium Chloride Carbon Dioxide BUN Creatinine Glucose POC Glucose (mg/dL) 226 H 145 H 153 H Plasma Lactic Acid Roderick Calcium Iron % Saturation AST Alkaline Phosphatase PTH Intact Urine Protein 02/04/20 02/04/20 02/04/20 07:37 07:37 11:31 WBC RBC 3.00 L Hgb 9.7 L Hct 31.1 L MCV 103.7 H RDW 16.4 H Lymphocytes # 0.9 L Sodium 124 L Potassium Chloride 95 L Carbon Dioxide BUN 29 H Creatinine 1.43 H Glucose 177 H POC Glucose (mg/dL) 173 H Plasma Lactic Acid Roderick Calcium 6.8 L Iron % Saturation AST Alkaline Phosphatase PTH Intact Urine Protein 02/04/20 02/04/20 02/04/20 14:17 16:51 20:32 WBC RBC Hgb Hct MCV RDW Lymphocytes # Sodium 125 L Potassium Chloride Carbon Dioxide BUN Creatinine Glucose POC Glucose (mg/dL) 249 H 130 H Plasma Lactic Acid Roderick Calcium Iron 39 L % Saturation 11.34 L AST Alkaline Phosphatase PTH Intact Urine Protein 02/05/20 02/05/20 02/05/20 06:03 06:58 06:58 WBC RBC 2.91 L Hgb 9.5 L Hct 30.0 L MCV 103.0 H RDW 16.7 H Lymphocytes # Sodium 124 L Potassium Chloride 93 L Carbon Dioxide BUN 26 H Creatinine 1.44 H Glucose 110 H POC Glucose (mg/dL) 127 H Plasma Lactic Acid Roderick Calcium 7.2 L Iron % Saturation AST Alkaline Phosphatase PTH Intact Urine Protein 02/05/20 02/05/20 02/05/20 11:44 16:37 20:19 WBC RBC Hgb Hct MCV RDW Lymphocytes # Sodium Potassium Chloride Carbon Dioxide BUN Creatinine Glucose POC Glucose (mg/dL) 168 H 175 H 164 H Plasma Lactic Acid Roderick Calcium Iron % Saturation AST Alkaline Phosphatase PTH Intact Urine Protein 02/06/20 02/06/20 02/06/20 06:03 06:25 06:25 WBC 3.7 L RBC 3.02 L Hgb 9.7 L Hct 30.9 L MCV 102.5 H RDW 16.8 H Lymphocytes # 0.9 L Sodium 126 L Potassium 5.2 H Chloride 95 L Carbon Dioxide BUN 24 H Creatinine 1.40 H Glucose 112 H POC Glucose (mg/dL) 134 H Plasma Lactic Acid Roderick Calcium 8.1 L Iron % Saturation AST Alkaline Phosphatase PTH Intact Urine Protein 02/06/20 02/06/20 02/07/20 11:57 20:44 07:59 WBC RBC 2.97 L Hgb 9.7 L Hct 31.2 L MCV 104.8 H RDW 16.3 H Lymphocytes # 0.9 L Sodium Potassium Chloride Carbon Dioxide BUN Creatinine Glucose POC Glucose (mg/dL) 138 H 205 H Plasma Lactic Acid Roderick Calcium Iron % Saturation AST Alkaline Phosphatase PTH Intact Urine Protein 02/07/20 02/07/20 02/07/20 07:59 11:49 17:01 WBC RBC Hgb Hct MCV RDW Lymphocytes # Sodium 130 L Potassium 5.3 H Chloride 97 L Carbon Dioxide BUN 20 H Creatinine 1.36 H Glucose POC Glucose (mg/dL) 172 H 116 H Plasma Lactic Acid Roderick Calcium Iron % Saturation AST Alkaline Phosphatase PTH Intact Urine Protein 02/07/20 02/08/20 02/08/20 20:51 06:14 06:14 WBC RBC 2.78 L Hgb 9.3 L Hct 29.0 L MCV 104.3 H RDW 16.3 H Lymphocytes # Sodium 128 L Potassium 5.5 H Chloride 94 L Carbon Dioxide BUN 20 H Creatinine 1.50 H Glucose 105 H POC Glucose (mg/dL) 203 H Plasma Lactic Acid Roderick Calcium Iron % Saturation AST Alkaline Phosphatase PTH Intact Urine Protein 02/08/20 02/08/20 06:25 11:56 WBC RBC Hgb Hct MCV RDW Lymphocytes # Sodium Potassium Chloride Carbon Dioxide BUN Creatinine Glucose POC Glucose (mg/dL) 122 H 137 H Plasma Lactic Acid Roderick Calcium Iron % Saturation AST Alkaline Phosphatase PTH Intact Urine Protein Assessment and Plan Assessment: This is a 79-year-old woman with multiple medical problems who was admitted to the emergency department on 01/31/2020 for urinary retention. During her stay for her atrial fibrillation with RVR she had she was cardioverted and was placed on Eliquis. Regarding her peripheral vascular disease he had angioplasty and stent during her stay. Today around 10:00 to 11:00 in the morning the nurse felt when the patient woke up the patient had significant lower facial droop as well as dysarthria and then when she was awake for some time as symptoms were improving. Her NIH was a 0. Therefore no TPA. Transient Ischemic attack: Episode of left facial droop as well as dysarthria Acute Mild hyponatremia---likely medication effect (Lasix) Atrial fibrillation RVR status post cardioversion (during this hopsital stay)--on Eliquis Peripheral vascular disease status post angioplasty and stent on 02/06/2020 Essential tremor Chronic kidney insufficiency Hyperkalemia Macrocytic anemia Diabetes mellitus Hyperlipidemia Hypertension Sleep apnea Carotid artery disease status post bypass Congestive heart failure Plan: CT head was reported as no acute intracranial hemorrhage or midline shift. There is mild to moderate diffuse cerebral atrophy and moderate chronic small vessel ischemic changes noted. I personally reviewed the CT of the head and I agree with the radiologist finding. Recommend urgent carotid duplex. Will avoid that CTA of the head and neck because of the patient elevated creatinine function. TSH is 3.52. Currently the patient is on Eliquis 2.5 mg twice a day and aspirin 81 mg daily and asked to be continued. Continue Lipitor 40 mg daily. Transesophageal echocardiogram on 2019 is reported as normal left atrial zach endage without any evidence of thrombus. Severe biatrial enlargement. Impaired left ventricular function with ejection fraction around 35%. Thickened mitral valve leaflet with moderate to severe mitral regurgitation. If patient continues to have these episodes would recommend repeating A 2-D ec ho or limited 2-D echo. Recommend lipid panel. Patient has macrocytic anemia recommend getting vitamin B12 and folate. Currently she is on vitamin B12 500 g daily. Regarding the acute mild hyponatremia likely due to medication effect such as Lasix. We'll defer action to the primary team. I would recommend patient to follow-up with a neurologist upon discharge regarding this episode. Thank you for the consultation. Armin Hemphill M.D. Neuro-hospitalist Time with Patient: Greater than 30
[2020-02-08] MEDS ORDERED: SODIUM POLYSTYRENE SULFONATE 15 GM/60 ML BOTTLE PO STA (13:35)
--- NOTE | 2020-02-08 13:42 | P.DS ---
Providers Date of admission: 01/31/20 20:07 Expected date of discharge: 02/08/20 Attending physician: David Jim Consults: 01/31/20 20:11 Consult Physician Urgent Consulting Provider: Cardiology Rod Consult Reason/Comments: afib with rvr Do you want consulting provider notified?: Yes 02/03/20 15:28 Consult Physician Routine Consulting Provider: Digna Roth Consult Reason/Comments: crf, low ca Do you want consulting provider notified?: Yes 02/04/20 19:36 Consult Physician Routine Consulting Provider: Jayson Gar Consult Reason/Comments: need in-patinet rehab Do you want consulting provider notified?: Yes 02/08/20 11:40 Consult Physician Urgent Consulting Provider: Armin Hemphill Consult Reason/Comments: r/o TIA Do you want consulting provider notified?: Yes Primary care physician: [facility] Course: Chief Complaint: Increased heart rate History of presenting complaint: This is a pleasant 79-year-old patient of Dr. Greg Kline. Chronic stable medical conditions include COPD, diabetes, hyperlipidemia, hypertension, parkinsonism, sleep apnea, coronary artery disease with prior bypass. CHF combined with systolic and diastolic dysfunction EF 45-50%. Normally lives alone and gets uses a walker to get about. January 23 through January 25 with hyperkalemia and atrial flutter with a rapid ventricular rate. Currently sinus rhythm. Discharged patient had gone to her family doctor yesterday. Unable to make urine. Sent to the ER. Bladder scan showed about 40 mL of urine and a Cuevas was placed. Patient was discovered to be in atrial flutter with a rapid ventricular rate. No chest pain or palpitation no dizziness no lightheadedness. Patient's place of the [facility] (formerly [facility]) and admitted. Appetite is fair. Patient underwent right superficial femoral artery angioplasty by Dr. Mcmullen for intermittent claudication and rest pain. Today-is a bit tired. There was a question about her mouth to one side. Stat computed tomography scan of the brain was unremarkable. To make sure carotid Dopplers being ordered. Dose of Lopressor was increased. Discussed with the patient. We will go to rehab today. Discussed with Dr. Hemphill from neurology. Dose of Kayexalate 30 g given today. Check BMP tomorrow. Discussion and discharge planning more than 35 minutes Consultation: Cardiology associates Dr. Roth from neurology Dr. Mcmullen from cardiology Physical examination: VITAL SIGNS: 97.3, 109, 18, 120/73, 90% on room air GENERAL: Sitting pages bed, comfortable EYES: Pupils equal. Conjunctiva normal. HEENT: External appearance of nose and ears normal, oral cavity grossly normal. Scant scalp hair NECK: JVD not raised; masses not palpable. HEART: Irregular heart beat; edema present LUNGS: Respiratory rate increased, diminished breath sounds ABDOMEN: Soft, nontender, liver spleen not palpable, no masses palpable. PSYCH: Alert and oriented x3; mood and affect normal. DERMATOLOGICAL: Dry skin, with dystrophic nails. NEUROLOGICAL: No focal deficit INVESTIGATIONS, reviewed in the clinical context: White count 4.6 hemoglobin 9.3 potassium 5.5 bun 20 creatinine 1.50 Admission testing White count 4.3 hemoglobin 10.3 platelets 179 potassium 4.9 bun 40 creatinine 1.58 Assessment: -Paroxysmal atrial flutter, presenting with a rapid ventricular rate, better controlled -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 -Moderate severe tricuspid regurgitation -Diabetes mellitus type 2 with diabetic peripheral neuropathy -Obesity BMI 39 -Hyperlipidemia -Essential hypertension -Coronary artery disease with prior history of bypass -Chronic kidney disease stage III from diabetic nephropathy and hypertensive nephrosclerosis. -Chronic gait dysfunction does use a walker -Urine outflow obstruction -Peripheral arterial disease-stenting of the right superficial femoral artery. For intermittent claudication by Dr. Mcmullen -Iron deficient anemia. Receiving IV iron Disposition: ECF/[facility] [place] Labs: BMP-on 02/09/2020 Patient Condition at Discharge: Stable Plan - Discharge Summary Discharge Rx Participant: No New Discharge Prescriptions: New Tamsulosin [Flomax] 0.4 mg PO PC-BRKFST cap.er.24h INSULIN ASPART (NovoLOG) [NovoLOG (formulary)] 0 unit SQ ACHS vial Calcium Carb-Vit D 500Mg-200Un [Oscal 500+D] 1 each PO TID-W/MEALS tab Famotidine [Pepcid] 20 mg PO DAILY tab Metoprolol Succinate (ER) [Toprol XL] 150 mg PO DAILY tab.er.24h Continue Ezetimibe [Zetia] 10 mg PO DAILY@1800 Lovastatin [Mevacor] 10 mg PO DAILY@1800 sitaGLIPtin PHOS/metFORMIN HCL [Janumet 50-1,000 mg Tablet] 1 tab PO BID Primidone [Mysoline] 100 mg PO DAILY@1800 Colchicine [Colcrys] 0.6 mg PO BID@0900,1800 Aspirin EC [Ecotrin Low Dose] 81 mg PO DAILY@0900 Primidone [Mysoline] 50 mg PO DAILY@0900 Vitamin B-12(Unknown Dose) 1 tab PO DAILY@1500 Albuterol Inhaler [Ventolin Hfa Inhaler] 2 puff INHALATION RT-QID PRN PRN Reason: Shortness Of Breath Folic Acid(Unknown Dose) 1 tab PO DAILY@1500 Furosemide [Lasix] 40 mg PO DAILY@0900 Denosumab [Prolia] 60 mg SQ Q180D Apixaban [Eliquis] 2.5 mg PO BID #60 tablet Gabapentin [Neurontin] 100 mg PO TID #9 cap Discontinued Metoprolol Succinate (ER) [Toprol XL] 50 mg PO DAILY #60 tab.er.24h Discharge Medication List Ezetimibe [Zetia] 10 mg PO DAILY@1800 11/20/13 [History] Lovastatin [Mevacor] 10 mg PO DAILY@1800 11/20/13 [History] sitaGLIPtin PHOS/metFORMIN HCL [Janumet 50-1,000 mg Tablet] 1 tab PO BID 08/20/16 [History] Aspirin EC [Ecotrin Low Dose] 81 mg PO DAILY@0900 01/25/19 [History] Colchicine [Colcrys] 0.6 mg PO BID@0900,1800 01/25/19 [History] Primidone [Mysoline] 50 mg PO DAILY@0900 01/25/19 [History] Primidone [Mysoline] 100 mg PO DAILY@1800 01/25/19 [History] Albuterol Inhaler [Ventolin Hfa Inhaler] 2 puff INHALATION RT-QID PRN 10/19/19 [History] Folic Acid(Unknown Dose) 1 tab PO DAILY@1500 10/19/19 [History] Vitamin B-12(Unknown Dose) 1 tab PO DAILY@1500 10/19/19 [History] Furosemide [Lasix] 40 mg PO DAILY@0900 12/24/19 [History] Denosumab [Prolia] 60 mg SQ Q180D 01/23/20 [History] Apixaban [Eliquis] 2.5 mg PO BID #60 tablet 01/26/20 [Rx] Calcium Carb-Vit D 500Mg-200Un [Oscal 500+D] 1 each PO TID-W/MEALS tab 02/08/20 [Rx] Famotidine [Pepcid] 20 mg PO DAILY tab 02/08/20 [Rx] Gabapentin [Neurontin] 100 mg PO TID #9 cap 02/08/20 [Rx] INSULIN ASPART (NovoLOG) [NovoLOG (formulary)] 0 unit SQ ACHS vial 02/08/20 [Rx] Metoprolol Succinate (ER) [Toprol XL] 150 mg PO DAILY tab.er.24h 02/08/20 [Rx] Tamsulosin [Flomax] 0.4 mg PO PC-BRKFST cap.er.24h 02/08/20 [Rx] Follow up Appointment(s)/Referral(s): All Burnett MD [STAFF PHYSICIAN] - 10 Days (Please follow up after your procedure on Tuesday.) Greg Kline MD [Primary Care Provider] - 1-2 days Patient Instructions/Handouts: A-fib (Atrial Fibrillation) (DC), Transesophageal Echocardiogram (DC), Cardioversion (DC) Activity/Diet/Wound Care/Special Instructions: bmp - 1 day
--- NOTE | 2020-02-08 13:57 | PN ---
PROGRESS NOTE Patient is seen for followup for chronic kidney disease and hyponatremia. She is status post SFA intervention angioplasty done by Dr. Burnett yesterday. Pain in the right lower extremity is better today. Patient has received 2 doses of tolvaptan. Her serum sodium had improved to about 130 yesterday. However, today it is down to 128. Patient did receive IV fluids at the time of the procedure yesterday. This morning she is comfortable, denies any significant complaints. PHYSICAL EXAMINATION: Blood pressure is 120/73, heart rate 109 per minute, she is afebrile. Examination of the lower extremities shows chronic skin changes and edema noted bilaterally. Edema is noted as well in lower extremities. Abdomen is soft, obese, nontender. SANDER SETTER exam grossly intact. Patient is moving 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. LABS: Shows hemoglobin 9.3, sodium 128, potassium 5.5, BUN 20, creatinine 1.5. ASSESSMENT: 1. Chronic kidney disease. Baseline creatinine about 1.5 mg/dL. Creatinine was down to 1.3, status post IV fluids. She is maintained on low-dose Lasix which I will continue for now. 2. Volume overload, fairly stable. Continue with current dose of Lasix. 3. Hyponatremia which is hypervolemic, status post 2 doses of tolvaptan. I will repeat a dose of tolvaptan today. Patient is encouraged to decrease her free water intake. She did get IV fluids at the time of the procedure, which may have contributed to her lower sodium level today. 4. Atrial fibrillation, status post cardioversion. 5. Peripheral vascular disease, status post stenting of SFA yesterday with Dr. Burnett. 6. Anemia, mostly anemia of chronic disease with iron deficiency receiving IV iron. 7. Hypertension, currently improved. 8. Mild hyperkalemia. Expect improvement with ongoing loop diuretics. I will give her a dose of IV Lasix today. PLAN: Repeat tolvaptan today. Continue with oral Lasix. Maintain fluid restriction. May continue with the Glucophage for now and follow up as outpatient. MMODL / IJN: [id number] /
--- NOTE | 2020-02-08 14:17 | US ---
EXAMINATION TYPE: US carotid duplex BILAT DATE OF EXAM: 02/08/2020 COMPARISON: NONE CLINICAL HISTORY: TIA. EXAM MEASUREMENTS: RIGHT: Peak Systolic Velocity (PSV) cm/sec ----- Right CCA: 39.1 ----- Right ICA: 58.4 ----- Right ECA: 64.5 ICA/CCA ratio: 1.5 RIGHT: End Diastole cm/sec ----- Right CCA: 12.7 ----- Right ICA: 21.7 ----- Right ECA: 0.0 LEFT: Peak Systolic Velocity (PSV) cm/sec ----- Left CCA: 68.6 ----- Left ICA: 73.2 ----- Left ECA: 45.3 ICA/CCA ratio: 1.1 LEFT: End Diastole cm/sec ----- Left CCA: 11.8 ----- Left ICA: 23.5 ----- Left ECA: 0.0 VERTEBRALS (direction of flow): Right Vertebral: Antegrade Left Vertebral: Antegrade Rhythm: Normal Grayscale, color Doppler, spectral Doppler imaging performed of the carotid arteries. Waveform analys is does not show significant stenosis of the internal carotid arteries. No significant stenosis seen. Extensive plaque noted throughout all arteries. No elevated velocities. IMPRESSION: No hemodynamic significant stenosis of the proximal internal carotid arteries by Doppler criteria, an indirect measurement of carotid stenosis Criteria for Assigning % of Stenosis / Diameter reduction (Estimation based on the indirect measurements of the internal carotid artery velocities (ICA PSV). 1. Normal (no stenosis)=ICA PSV < 125 cm/s: ratio < 2.0: ICA EDV<40 cm/s. 2. Less than 50% stenosis=ICA PSV < 125 cm/s: ratio < 2.0: ICA EDV<40 cm/s. 3. 50 to 69% stenosis=ICA PSV of 125 to 230 cm/s: ration 2.0 ? 4.0: ICA EDV 40-100 cm/s. 4. Greater than 70% stenosis to near occlusion= ICA PSV > 230 cm/s: ratio > 4.0: ICA EDV > 100 cm/s. 5. Near occlusion= ICA PSV velocities may be low or undetectable: variable ratio and ICA EDV. 6. Total occlusion=unable to detect flow.
[2020-02-08] MEDS: CYANOCOBALAMIN 500 MCG TAB PO SCH (15:08)
[2020-02-08] MEDS: FOLIC ACID 1 MG TAB PO SCH (15:08)
[2020-02-09] MEDS ORDERED: METOPROLOL SUCCINATE (ER) 50 MG TAB.ER.24H PO SCH (09:00)
== END 2020-02-08 16:04 | DRG 271 ==
LOC: EC 16:42 → 3SCARD 20:07
PROVIDERS: ADMIT Hospitalist; ATTEND Hospitalist
PROC: B24BZZ4 Ultrasonography of Heart with Aorta, Transesophageal (ICD-10-PCS; principal; 2020-02-02 12:00)
PROC: 5A2204Z Restoration of Cardiac Rhythm, Single (ICD-10-PCS; principal; 2020-02-02 12:00)
PROC: B44LZZ3 Ultrasonography of Femoral Artery, Intravascular (ICD-10-PCS; 2020-02-06 14:00)
PROC: B41F1ZZ Fluoroscopy of Right Lower Extremity Arteries using Low Osmolar Contrast (ICD-10-PCS; 2020-02-06 14:00)
PROC: 04CK3ZZ Extirpation of Matter from Right Femoral Artery, Percutaneous Approach (ICD-10-PCS; 2020-02-06 14:00)
PROC: 047K34Z Dilation of Right Femoral Artery with Drug-eluting Intraluminal Device, Percutaneous Approach (ICD-10-PCS; 2020-02-06 14:00)
DX: I48.3 Typical atrial flutter (principal); E87.1 Hypo-osmolality and hyponatremia; G45.9 Transient cerebral ischemic attack, unspecified; I13.0 Hypertensive heart and chronic kidney disease with heart failure and stage 1 through stage 4 chronic kidney disease, or unspecified chronic kidney disease; I50.42 Chronic combined systolic (congestive) and diastolic (congestive) heart failure; L03.115 Cellulitis of right lower limb; L03.116 Cellulitis of left lower limb; N17.9 Acute kidney failure, unspecified; N39.0 Urinary tract infection, site not specified; I48.19 Other persistent atrial fibrillation; I47.1 Supraventricular tachycardia; D63.1 Anemia in chronic kidney disease; E83.51 Hypocalcemia; I27.29 Other secondary pulmonary hypertension; I42.9 Cardiomyopathy, unspecified; N18.30 Chronic kidney disease, stage 3 unspecified; I70.221 Atherosclerosis of native arteries of extremities with rest pain, right leg; E11.22 Type 2 diabetes mellitus with diabetic chronic kidney disease; E11.42 Type 2 diabetes mellitus with diabetic polyneuropathy; E11.51 Type 2 diabetes mellitus with diabetic peripheral angiopathy without gangrene; J44.9 Chronic obstructive pulmonary disease, unspecified; D50.9 Iron deficiency anemia, unspecified; D53.9 Nutritional anemia, unspecified; E66.9 Obesity, unspecified; E78.5 Hyperlipidemia, unspecified; E87.5 Hyperkalemia; G25.0 Essential tremor; I08.1 Rheumatic disorders of both mitral and tricuspid valves; I25.10 Atherosclerotic heart disease of native coronary artery without angina pectoris; I25.2 Old myocardial infarction; M81.0 Age-related osteoporosis without current pathological fracture; N13.9 Obstructive and reflux uropathy, unspecified; Q80.9 Congenital ichthyosis, unspecified; G47.33 Obstructive sleep apnea (adult) (pediatric); K21.9 Gastro-esophageal reflux disease without esophagitis; M10.9 Gout, unspecified; R11.2 Nausea with vomiting, unspecified; R26.9 Unspecified abnormalities of gait and mobility; T50.1X5A Adverse effect of loop [high-ceiling] diuretics, initial encounter; K59.00 Constipation, unspecified; Z68.39 Body mass index [BMI] 39.0-39.9, adult; Z79.01 Long term (current) use of anticoagulants; Z79.4 Long term (current) use of insulin; Z79.82 Long term (current) use of aspirin; Z79.899 Other long term (current) drug therapy; Z87.440 Personal history of urinary (tract) infections; Z87.442 Personal history of urinary calculi; Z95.1 Presence of aortocoronary bypass graft; Z90.49 Acquired absence of other specified parts of digestive tract; Z90.89 Acquired absence of other organs; Z90.710 Acquired absence of both cervix and uterus; Z87.19 Personal history of other diseases of the digestive system; Z87.891 Personal history of nicotine dependence; Z80.0 Family history of malignant neoplasm of digestive organs; Z80.1 Family history of malignant neoplasm of trachea, bronchus and lung; Z80.3 Family history of malignant neoplasm of breast; Z82.49 Family history of ischemic heart disease and other diseases of the circulatory system; Z82.5 Family history of asthma and other chronic lower respiratory diseases
CPT/HCPCS: 36415; 37227; 37252; 70450; 71045; 76770; 80048; 80053; 81003; 82652; 83540; 83550; 83605; 83735; 83935; 83970; 84100; 84295; 84300; 84443; 84484; 85025; 85347; 85610; 85730; 92960; 93005; 93312; 93320; 93325; 93880; 96365; 96366; 96368; 96376; 99285

== ENCOUNTER 2020-02-16 23:09 | Inpatient (IN) | payer MEDICARE, OTHER ==
[2020-02-16] MEDS ORDERED: SODIUM CHLORIDE 0.9% 1,000 ML IV STA (23:38)
--- NOTE | 2020-02-17 00:30 | ED ---
General Adult HPI - General Source: patient, EMS, RN notes reviewed Mode of arrival: EMS Limitations: no limitations <Robin Parsons - Last Filed: 02/17/20 01:30> <Chad Mejia - Last Filed: 02/17/20 09:09> - General Chief complaint: Recheck/Abnormal Lab/Rx Stated complaint: abnormal labs Time Seen by Provider: 02/16/20 23:26 - History of Present Illness Initial comments: 79-year-old female with a complicated past medical history presents to the emergency room for abnormal labs. Patient was found to be hyponatremic earlier today with a potassium of 117. Patient is asymptomatic. Patient reports that she feels well. No history of seizures. Patient has had evidence of hyponatremia over the past several weeks. Patient reports she is told not to eat or drink any salt.Patient has no other complaints at this time including shortness of breath, chest pain, abdominal pain, nausea or vomiting, headache, or visual changes. (Robin Parsons) - Related Data Home Medications Medication Instructions Recorded Confirmed Ezetimibe [Zetia] 10 mg PO DAILY@1800 11/20/13 01/31/20 Lovastatin [Mevacor] 10 mg PO DAILY@1800 11/20/13 01/31/20 sitaGLIPtin PHOS/metFORMIN HCL 1 tab PO BID 08/20/16 01/31/20 [Janumet 50-1,000 mg Tablet] Aspirin EC [Ecotrin Low Dose] 81 mg PO DAILY@0901/25/19 01/31/20 Colchicine [Colcrys] 0.6 mg PO BID@0900,1800 01/25/19 01/31/20 Primidone [Mysoline] 50 mg PO DAILY@0901/25/19 01/31/20 Primidone [Mysoline] 100 mg PO DAILY@1800 01/25/19 01/31/20 Albuterol Inhaler [Ventolin Hfa 2 puff INHALATION RT-QID PRN 10/19/19 01/31/20 Inhaler] Folic Acid(Unknown Dose) 1 tab PO DAILY@1500 10/19/19 01/31/20 Vitamin B-12(Unknown Dose) 1 tab PO DAILY@1500 10/19/19 01/31/20 Furosemide [Lasix] 40 mg PO DAILY@0900 12/24/19 01/31/20 Denosumab [Prolia] 60 mg SQ Q180D 01/23/20 01/31/20 Previous Rx's Medication Instructions Recorded Apixaban [Eliquis] 2.5 mg PO BID #60 tablet 01/26/20 Calcium Carb-Vit D 500Mg-200Un 1 each PO TID-W/MEALS tab 02/08/20 [Oscal 500+D] Famotidine [Pepcid] 20 mg PO DAILY tab 02/08/20 Gabapentin [Neurontin] 100 mg PO TID #9 cap 02/08/20 INSULIN ASPART (NovoLOG) [NovoLOG 0 unit SQ ACHS vial 02/08/20 (formulary)] Metoprolol Succinate (ER) [Toprol 150 mg PO DAILY tab.er.24h 02/08/20 XL] Tamsulosin [Flomax] 0.4 mg PO PC-BRKFST cap.er.24h 02/08/20 Allergies Allergy/AdvReac Type Severity Reaction Status Date / Time albuterol [From DuoNeb] AdvReac Nausea Verified 02/16/20 23:19 cortisone AdvReac PAIN Verified 02/16/20 23:19 hydrocodone AdvReac Nausea Verified 02/16/20 23:19 ipratropium [From DuoNeb] AdvReac Nausea Verified 02/16/20 23:19 procaine HCl [From Novocain] AdvReac pain Verified 02/16/20 23:19 allergy medicines AdvReac "dries me Uncoded 02/16/20 23:19 out, bloody noses,generalized pain" Review of Systems ROS Other: All systems not noted in ROS Statement are negative. <Robin Parsons - Last Filed: 02/17/20 01:30> ROS Other: All systems not noted in ROS Statement are negative. <Chad Mejia - Last Filed: 02/17/20 09:09> ROS Statement: Those systems with pertinent positive or pertinent negative responses have been documented in the HPI. Past Medical History Past Medical History: COPD, Diabetes Mellitus, Hyperlipidemia, Hypertension, Myocardial Infarction ([place]), Sleep Apnea/CPAP/BIPAP Additional Past Medical History / Comment(s): tremors,NO left arm blood draw or blood pressure(vessel harvested for CABG), blockages in angelica legs, Coonstipation, gout, PAD Last Myocardial Infarction Date:: 1999 History of Any Multi-Drug Resistant Organisms: None Reported Past Surgical History: Appendectomy, Coronary Bypass/CABG, Heart Catheterization, Hysterectomy, Tonsillectomy Additional Past Surgical History / Comment(s): angiogram. Right neck lymphnode removal Past Anesthesia/Blood Transfusion Reactions: No Reported Reaction Past Psychological History: No Psychological Hx Reported Smoking Status: Former smoker Past Alcohol Use History: None Reported Past Drug Use History: None Reported - Past Family History Mother Family Medical History: COPD, Myocardial Infarction ([place]) Brother(s) Family Medical History: Cancer Additional Family Medical History / Comment(s): LUNG CANCER Son(s) Family Medical History: Cancer Additional Family Medical History / Comment(s): COLON CANCER Sister(s) Family Medical History: Cancer Additional Family Medical History / Comment(s): (2) SISTERS HAD BREAST CANCER. <Robin Parsons P - Last Filed: 02/17/20 01:30> General Exam Limitations: no limitations General appearance: alert, in no apparent distress Head exam: Present: atraumatic, normocephalic, normal inspection Eye exam: Present: normal appearance, PERRL, EOMI. Absent: scleral icterus, conjunctival injection, periorbital swelling ENT exam: Present: normal exam, mucous membranes moist Neck exam: Present: normal inspection, full ROM. Absent: tenderness, meningismus, lymphadenopathy Respiratory exam: Present: normal lung sounds bilaterally. Absent: respiratory distress, wheezes, rales, rhonchi, stridor Cardiovascular Exam: Present: regular rate, normal rhythm, normal heart sounds. Absent: systolic murmur, diastolic murmur, rubs, gallop, clicks GI/Abdominal exam: Present: soft, normal bowel sounds. Absent: distended, tenderness, guarding, rebound, rigid Neurological exam: Present: alert, oriented X3 <Robin Parsons P - Last Filed: 02/17/20 01:30> Course Vital Signs 02/16/20 02/16/20 02/16/20 23:13 23:15 23:30 Temperature 97.7 F Pulse Rate 88 88 Pulse Rate [ Pulse Oximetery ] Respiratory 18 17 Rate Blood Pressure 148/84 148/84 Blood Pressure [Right Arm] O2 Sat by Pulse 100 100 100 Oximetry 02/17/20 02/17/20 02/17/20 00:00 00:30 01:00 Temperature Pulse Rate 90 Pulse Rate [ Pulse Oximetery ] Respiratory 18 Rate Blood Pressure 131/78 128/90 129/76 Blood Pressure [Right Arm] O2 Sat by Pulse 96 98 99 Oximetry 02/17/20 02/17/20 02/17/20 02:05 02:30 03:00 Temperature 97.7 F 97.6 F Pulse Rate 97 98 Pulse Rate [ 100 Pulse Oximetery ] Respiratory 18 19 19 Rate Blood Pressure 113/73 105/68 Blood Pressure 142/86 [Right Arm] O2 Sat by Pulse 97 96 97 Oximetry EKG Findings - EKG Comments: EKG Findings:: Sinus rhythm, ventricular rate 87, WV interval 122, QTc 464 <Robin Parsons - Last Filed: 02/17/20 01:30> Medical Decision Making - Lab Data Result diagrams: 02/17/20 00:28 02/17/20 00:28 <Robin Parsons - Last Filed: 02/17/20 01:30> - Lab Data Result diagrams: 02/17/20 00:28 02/17/20 00:28 <Chad Mejia - Last Filed: 02/17/20 09:09> - Medical Decision Making Vitals are stable. Patient is well appearing. She is alert and oriented. CBC is unremarkable. Hemoglobin stable at 10.8. CMP reveals hyponatremia of 115. Patient was started on 83 mph of normal saline. CMP also revealed mild hyperkalemia of 5.7 without EKG changes. Calcium 6.6. At this time patient will be admitted with further management, nephrology will be placed on consult. (Robin Parsons) I saw this patient in conjunction with the physician assistant manager pt. I performed independent history and physical exam. Agree with case management. (Chad Mejia) - Lab Data Lab Results 02/17/20 02/17/20 Range/Units 00:28 00:28 WBC 5.8 (3.8-10.6) k/uL RBC 3.29 L (3.80-5.40) m/uL Hgb 10.8 L (11.4-16.0) gm/dL Hct 33.3 L (34.0-46.0) % MCV 101.4 H (80.0-100.0) fL MCH 32.7 (25.0-35.0) pg MCHC 32.3 (31.0-37.0) g/dL RDW 16.3 H (11.5-15.5) % Plt Count 215 (150-450) k/uL Neutrophils % 67 % Lymphocytes % 18 % Monocytes % 7 % Eosinophils % 6 % Basophils % 1 % Neutrophils # 3.9 (1.3-7.7) k/uL Lymphocytes # 1.0 (1.0-4.8) k/uL Monocytes # 0.4 (0-1.0) k/uL Eosinophils # 0.3 (0-0.7) k/uL Basophils # 0.1 (0-0.2) k/uL Hypochromasia Slight Anisocytosis Slight Macrocytosis Slight Sodium 115 L* (137-145) mmol/L Potassium 5.7 H (3.5-5.1) mmol/L Chloride 86 L (98-107) mmol/L Carbon Dioxide 19 L (22-30) mmol/L Anion Gap 10 mmol/L BUN 32 H (7-17) mg/dL Creatinine 1.40 H (0.52-1.04) mg/dL Est GFR (CKD-EPI)AfAm 41 (>60 ml/min/1.73 sqM) Est GFR (CKD-EPI)NonAf 36 (>60 ml/min/1.73 sqM) Glucose 106 H (74-99) mg/dL Calcium 6.6 L (8.4-10.2) mg/dL Magnesium 1.7 (1.6-2.3) mg/dL Total Bilirubin 0.5 (0.2-1.3) mg/dL AST 32 (14-36) U/L ALT 19 (4-34) U/L Alkaline Phosphatase 137 H (38-126) U/L Total Protein 7.0 (6.3-8.2) g/dL Albumin 3.7 (3.5-5.0) g/dL Disposition Is patient prescribed a controlled substance at d/c from ED?: No Time of Disposition: 01:27 <Robin Parsons - Last Filed: 02/17/20 01:30> <Chad Mejia - Last Filed: 02/17/20 09:09> Clinical Impression: Renal insufficiency, Hyperkalemia, Hyponatremia, Hypocalcemia Disposition: ADMITTED IP TO THIS HOSP
[2020-02-17 00:34] LABS: Anisocytosis Slight; Basophils # (A) 0.1 k/uL (0-0.2); Basophils % (A) 1 %; Eosinophils # (A) 0.3 k/uL (0-0.7); Eosinophils % (A) 6 %; HCT 33.3 % (34.0-46.0); HGB 10.8 gm/dL (11.4-16.0); Hypochromasia Slight; Lymphocytes % (A) 18 %; MCH 32.7 pg (25.0-35.0); MCHC 32.3 g/dL (31.0-37.0); MCV 101.4 fL (80.0-100.0); Macrocytosis Slight; Mean Platelet Volume 6.8; Monocytes # (A) 0.4 k/uL (0-1.0); Monocytes % (A) 7 %; Neutrophils # (A) 3.9 k/uL (1.3-7.7); Neutrophils % (A) 67 %; Platelet Count 215 k/uL (150-450); RBC 3.29 m/uL (3.80-5.40); RDW 16.3 % (11.5-15.5); WBC 5.8 k/uL (3.8-10.6)
[2020-02-17 00:48] LABS: Albumin 3.7 g/dL (3.5-5.0); Calcium 6.6 mg/dL (8.4-10.2); Magnesium 1.7 mg/dL (1.6-2.3); Potassium 5.7 mmol/L (3.5-5.1); Total Bilirubin 0.5 mg/dL (0.2-1.3)
[2020-02-17] MEDS ORDERED: NALOXONE 0.4 MG/ML 1 ML VIAL IV PRN (01:27)
[2020-02-17] MEDS ORDERED: ONDANSETRON 4 MG/2 ML VIAL IVP PRN (01:27)
[2020-02-17 06:06] LABS: Glucose,Whole Blood 131 mg/dL (75-99)
[2020-02-17] MEDS ORDERED: TOLVAPTAN 15 MG 1/2 TABLET PO ONE (09:30)
[2020-02-17] MEDS ORDERED: ACETAMINOPHEN TAB 325 MG TAB PO PRN (10:19)
--- NOTE | 2020-02-17 11:01 | XR ---
EXAMINATION TYPE: XR chest 1V DATE OF EXAM: 02/17/2020 HISTORY: Shortness of breath. COMPARISON: 02/05/2020 TECHNIQUE: Single view of the chest is submitted. FINDINGS: Demonstrated are scattered senescent parenchymal change. New Patch[place] density right lower lobe. Correlate for developing infiltrate and/or small effusion. Progr ess studies are advised. The heart is stable. Hilar and mediastinal structures are within normal limits. Degenerative changes are seen of the dorsal spine. IMPRESSION: 1. New Patchy density right lower lobe. Correlate for developing infiltrate and/or small effusion. P rogress studies are advised.
[2020-02-17 11:34] LABS: Glucose,Whole Blood 139 mg/dL (75-99)
[2020-02-17] MEDS: INSULIN ASPART (NovoLOG) 100 UNIT/ML VIAL SQ SCH ×3 (11:46→21:04)
--- NOTE | 2020-02-17 12:08 | P.HPIM ---
History of Present Illness 79-year-old female alf resident was sent in here because the severe hyponatremia and hyperkalemia patient's sodium is 117. Patient in the past had hyponatremia which was believed to be hypovolemic hypernatremia secondary to have right-sided heart failure. Patient was discharged on 40 mg of Lasix. Patient denied any diarrhea nausea patient did have an episode of vomiting today patient is complaining of epigastric abdominal discomfort. Patient denied any short of breath orthopnea or proximal nocturnal dyspnea.this x-ray was ordered which is showing mild infiltrate in the right lower lobe with the pleural effusion minimal. patient probably has atelectasis on the right side will be the chest x-ray tomorrow again. Insulin spirometry will be ordered.patient did this point of time is receiving gentle hydration still has some mild mild bilateral pedal edema without any significant elevation of JVD. Review of Systems REVIEW OF SYSTEMS: CONSTITUTIONAL: No fever, no malaise, no fatigue. HEENT: No recent visual problems or hearing problems. Denied any sore throat. CARDIOVASCULAR: No chest pain, orthopnea, PND, no palpitations, no syncope. PULMONARY: No shortness of breath, no cough, no hemoptysis. GASTROINTESTINAL: No diarrhea, no nausea, no vomiting, no abdominal pain. NEUROLOGICAL: No headaches, no weakness, no numbness. HEMATOLOGICAL: Denies any bleeding or petechiae. GENITOURINARY: Denies any burning micturition, frequency, or urgency. MUSCULOSKELETAL/RHEUMATOLOGICAL: Denies any joint pain, swelling, or any muscle pain. ENDOCRINE: Denies any polyuria or polydipsia. The rest of the 14-point review of systems is negative. Past Medical History Past Medical History: COPD, Diabetes Mellitus, Hyperlipidemia, Hypertension, Myocardial Infarction (LA), Sleep Apnea/CPAP/BIPAP Additional Past Medical History / Comment(s): tremors,NO left arm blood draw or blood pressure(vessel harvested for CABG), blockages in angelica legs, Coonstipation, gout, PAD Last Myocardial Infarction Date:: 1999 History of Any Multi-Drug Resistant Organisms: None Reported Past Surgical History: Appendectomy, Coronary Bypass/CABG, Heart Catheteriz ation, Hysterectomy, Tonsillectomy Additional Past Surgical History / Comment(s): angiogram. Right neck lymphnode removal Past Anesthesia/Blood Transfusion Reactions: No Reported Reaction Past Psychological History: No Psychological Hx Reported Additional Psychological History / Comment(s): Pt resides alone. She uses a walker to ambulate. She no longer drives, her sister in law drives. Pt has a glucometer and a nebulizer but will not use because it nauseates her. 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 Pt lives at [facility]. Smoking Status: Former smoker Past Alcohol Use History: None Reported Additional Past Alcohol Use History / Comment(s): Pt started smoking in 2 and quit in 2004 Past Drug Use History: None Reported - Past Family History Mother Family Medical History: COPD, Myocardial Infarction (LA) Brother(s) Family Medical History: Cancer Additional Family Medical History / Comment(s): LUNG CANCER Son(s) Family Medical History: Cancer Additional Family Medical History / Comment(s): COLON CANCER Sister(s) Family Medical History: Cancer Additional Family Medical History / Comment(s): (2) SISTERS HAD BREAST CANCER. Medications and Allergies Home Medications Medication Instructions Recorded Confirmed Type Ezetimibe [Zetia] 10 mg PO DAILY@1800 11/20/13 02/17/20 History Lovastatin [Mevacor] 10 mg PO DAILY@1800 11/20/13 02/17/20 History sitaGLIPtin PHOS/metFORMIN HCL 1 tab PO BID@0900,1800 08/20/16 02/17/20 History [Janumet 50-1,000 mg Tablet] Aspirin EC [Ecotrin Low Dose] 81 mg PO DAILY@0900 01/25/19 02/17/20 History Colchicine [Colcrys] 0.6 mg PO BID@0900,1800 01/25/19 02/17/20 History Primidone [Mysoline] 50 mg PO DAILY@0900 01/25/19 02/17/20 History Primidone [Mysoline] 100 mg PO DAILY@1800 01/25/19 02/17/20 History Furosemide [Lasix] 40 mg PO DAILY@0600 12/24/19 02/17/20 History Acetaminophen Tab [Tylenol] 650 mg PO Q4H PRN 02/17/20 02/17/20 History Apixaban [Eliquis] 2.5 mg PO BID@0900,2100 02/17/20 02/17/20 History Calcium Carb-Vit D 500Mg-200Un 1 tab PO TID-W/MEALS 02/17/20 02/17/20 History [Oscal 500+D] Cephalexin [Keflex] 500 mg PO TID@0900,1300,2100 02/17/20 02/17/20 History Cyanocobalamin [Vitamin B-12] 500 mcg PO DAILY@1500 02/17/20 02/17/20 History Famotidine [Pepcid] 20 mg PO DAILY@0600 02/17/20 02/17/20 History Folic Acid 1 mg PO DAILY@0900 02/17/20 02/17/20 History Gabapentin [Neurontin] 100 mg PO TID@0600,1400,2200 02/17/20 02/17/20 History INSULIN ASPART (NovoLOG) [NovoLOG See Protocol SQ ACHS 02/17/20 02/17/20 History (formulary)] Metoprolol Succinate (ER) [Toprol 150 mg PO DAILY@0900 02/17/20 02/17/20 History XL] Ondansetron HCl [Zofran] 4 mg PO Q8H PRN 02/17/20 02/17/20 History Tamsulosin [Flomax] 0.4 mg PO DAILY@0900 02/17/20 02/17/20 History Allergies Allergy/AdvReac Type Severity Reaction Status Date / Time albuterol [From DuoNeb] AdvReac Nausea Verified 02/17/20 10:00 cortisone AdvReac PAIN Verified 02/17/20 10:00 hydrocodone AdvReac Nausea Verified 02/17/20 10:00 ipratropium [From DuoNeb] AdvReac Nausea Verified 02/17/20 10:00 procaine HCl [From Novocain] AdvReac pain Verified 02/17/20 10:00 allergy medicines AdvReac "dries me Uncoded 02/17/20 10:00 out, bloody noses,generalized pain" Physical Exam Vitals: Vital Signs Temp Pulse Pulse Resp BP BP Pulse Ox 02/17/20 11:14 97.5 F L 102 H 18 136/86 100 02/17/20 07:56 97.7 F 102 H 16 128/74 94 L 02/17/20 04:00 97.7 F 100 18 142/86 97 02/17/20 03:00 97.6 F 98 19 105/68 97 02/17/20 02:30 97 19 113/73 96 02/17/20 02:05 97.7 F 100 18 142/86 97 02/17/20 01:00 90 18 129/76 99 02/17/20 00:30 128/90 98 02/17/20 00:00 131/78 96 02/16/20 23:30 88 17 148/84 100 02/16/20 23:15 100 02/16/20 23:13 97.7 F 88 18 148/84 100 Intake and Output 02/16/20 02/17/20 02/17/20 22:59 06:59 14:59 Intake Total 200 Output Total 400 300 Balance -400 -100 Intake: Oral 200 Output: Urine 400 300 Other: Voiding Method Toilet Bedside Commode # Voids 1 Weight 97.5 kg PHYSICAL EXAMINATION: GENERAL: The patient is alert and oriented x3, not in any acute distress. Well developed, well nourished. HEENT: Pupils are round and equally reacting to light. EOMI. No scleral icterus. No conjunctival pallor. Normocephalic, atraumatic. No pharyngeal erythema. No thyromegaly. CARDIOVASCULAR: S1 and S2 present. No murmurs, rubs, or gallops. PULMONARY: Chest is clear to auscultation, no wheezing or crackles. ABDOMEN: Soft, nontender, nondistended, normoactive bowel sounds. No palpable o rganomegaly. MUSCULOSKELETAL: No joint swelling or deformity. EXTREMITIES: No cyanosis, clubbing, and has a 1+ pitting pedal edema bilaterally NEUROLOGICAL: Gross neurological examination did not reveal any focal deficits. SKIN: No rashes. Results CBC & Chem 7: 02/17/20 00:28 02/17/20 00:28 Labs: Abnormal Lab Results - Last 24 Hours (Table) 02/17/20 02/17/20 02/17/20 Range/Units 00:28 00:28 06:05 RBC 3.29 L (3.80-5.40) m/uL Hgb 10.8 L (11.4-16.0) gm/dL Hct 33.3 L (34.0-46.0) % MCV 101.4 H (80.0-100.0) fL RDW 16.3 H (11.5-15.5) % Sodium 115 L* (137-145) mmol/L Potassium 5.7 H (3.5-5.1) mmol/L Chloride 86 L (98-107) mmol/L Carbon Dioxide 19 L (22-30) mmol/L BUN 32 H (7-17) mg/dL Creatinine 1.40 H (0.52-1.04) mg/dL Glucose 106 H (74-99) mg/dL POC Glucose (mg/dL) 131 H (75-99) mg/dL Calcium 6.6 L (8.4-10.2) mg/dL Alkaline Phosphatase 137 H (38-126) U/L 02/17/20 Range/Units 11:33 RBC (3.80-5.40) m/uL Hgb (11.4-16.0) gm/dL Hct (34.0-46.0) % MCV (80.0-100.0) fL RDW (11.5-15.5) % Sodium (137-145) mmol/L Potassium (3.5-5.1) mmol/L Chloride (98-107) mmol/L Carbon Dioxide (22-30) mmol/L BUN (7-17) mg/dL Creatinine (0.52-1.04) mg/dL Glucose (74-99) mg/dL POC Glucose (mg/dL) 139 H (75-99) mg/dL Calcium (8.4-10.2) mg/dL Alkaline Phosphatase (38-126) U/L Thrombosis Risk Factor Assmnt - Choose All That Apply Any of the Below Risk Factors Present?: No Other Risk Factors: Yes Each Risk Factor Represents 3 Points: Age 75 years or older Other congenital or acquired thrombophilia - If yes, enter type in comment: No Thrombosis Risk Factor Assessment Total Risk Factor Score: 3 Thrombosis Risk Factor Assessment Level: Moderate Risk Assessment and Plan Plan: -hyponatremia this time it appears to be secondary to intravascular volume depletion still has mild bilateral pedal edema no significant elevation of JVD patient will be continued on IV fluids patient appears to have hypervolemic hyponatremia. Nephrology will evaluate the patient. -mild hyperkalemia secondary to renal failure Mild acute renal failurerenal azotemia from diuretics switched to will be held temporally until evaluated by nephrology. 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
[2020-02-17] MEDS: GABAPENTIN 100 MG CAP PO SCH ×2 (14:46→21:04)
--- NOTE | 2020-02-17 14:59 | CONS ---
CONSULTATION REASON FOR CONSULT: Hyponatremia. HISTORY OF PRESENT ILLNESS: Patient is an 79-year-old female with history of chronic kidney disease, previous history of hyponatremia who was just discharged from the hospital on 02/08/2020 and admitted again for low sodium which was at 115 mEq/L. The patient's hyponatremia was euvolemic to hypervolemic on her last admission and she had responded well to few doses of tolvaptan. The patient was also maintained on loop diuretics at that time. She does have a history of cardiomyopathy with EF of about 35%. The patient has chronic kidney disease with baseline creatinine about 1.5 mg/dL secondary to nephrosclerosis, NKF stage 3. Prior to this admission patient denies any nausea, vomiting, diarrhea. No chest pains. No shortness of breath. She has been eating fairly well. She is maintained on some degree of free water restriction prior to admission. PAST MEDICAL HISTORY: Significant for CKD stage 3, hyponatremia, type 2 diabetes, COPD, hyperlipidemia, obstructive sleep apnea, coronary artery disease, history of IA, gout, history of coronary artery bypass surgery. PAST SURGICAL HISTORY: Appendectomy, coronary artery bypass surgery, cardiac catheterization, hysterectomy, right neck lymph node removal, tonsillectomy. SOCIAL HISTORY: Patient is a former smoker. No history of drug abuse or alcohol abuse. MEDICATIONS: Medications prior to admission included Zofran, Tylenol, insulin, Neurontin, Keflex, metformin, Zetia, vitamin B12, Colcrys, Eliquis, Toprol, Mysoline, Mevacor, Lasix, Pepcid, Flomax, folic acid, aspirin. ALLERGIES: Include ALBUTEROL causes nausea, NOVOCAINE causes mental status changes and intolerance with dry mouth, CORTISONE causes pain, I am not sure where. EXAMINATION: Patient is currently comfortable, awake, not in any acute distress. Alert, oriented x3. Blood pressure is 136/86, heart rate 102 per minute, she is afebrile. Examination of the heart S1, S2. Examination of the lungs, bilateral breath sounds are heard. Abdomen is soft, nontender. Examination of lower extremities shows chronic skin changes. No significant edema noted. OPERATION SPECIALIST exam is grossly intact. LAB: Show sodium of 115, potassium 5.7, chloride 86, CO2 is 19, BUN 32, serum creatinine 1.4. ASSESSMENT: 1. Chronic kidney disease, NKF stage 3. Baseline creatinine about 1.4-1.5 mg/dL secondary to nephrosclerosis and diabetic kidney disease. 2. Hyperkalemia in a patient with chronic kidney disease. No hyperglycemia noted. The patient is not on any nonsteroidal anti-inflammatory agents. I am not sure if she has underlying urine retention and a bladder scan will be obtained. She is maintained on loop diuretics at home which I will resume in a day or 2. 3. Hyponatremia. Patient is currently euvolemic. I will add tolvaptan and check a urine for osmolality as well. 4. Cardiomyopathy, ejection fraction of about 35-40%. 5. Coronary artery disease, history of coronary artery bypass surgery. 6. Atrial fibrillation status post cardioversion on last admission. 7. Peripheral vascular disease, status post stenting of SFA on her last admission [address] Burnett. PLAN: Hold Lasix for today, tolvaptan x1. Check urine osmolality. Repeat labs in a.m. and repeat sodium this evening. Thank you for this consultation. We will continue to follow the patient with you during her hospitalization. MMODL / IJN: [id number] /
[2020-02-17 17:02] LABS: Glucose,Whole Blood 146 mg/dL (75-99)
[2020-02-17] MEDS: PRIMIDONE 50 MG TAB PO SCH (17:18)
[2020-02-17] MEDS: ATORVASTATIN 10 MG TAB PO SCH (17:18)
[2020-02-17] MEDS: EZETIMIBE 10 MG TAB PO SCH (17:18)
[2020-02-17 20:39] LABS: Glucose,Whole Blood 161 mg/dL (75-99)
[2020-02-17] MEDS: APIXABAN 2.5 MG TABLET PO SCH (21:04)
[2020-02-18] MEDS: GABAPENTIN 100 MG CAP PO SCH ×3 (06:28→22:13)
[2020-02-18 06:30] LABS: Glucose,Whole Blood 129 mg/dL (75-99)
[2020-02-18] MEDS: INSULIN ASPART (NovoLOG) 100 UNIT/ML VIAL SQ SCH ×4 (06:31→22:23)
[2020-02-18] MEDS: PANTOPRAZOLE 40 MG/10 ML VIAL IVP SCH (07:58)
[2020-02-18] MEDS: TAMSULOSIN 0.4 MG CAP.ER.24H PO SCH (08:00)
[2020-02-18] MEDS: COLCHICINE 0.6 MG EACH PO SCH (08:00)
[2020-02-18] MEDS: ASPIRIN 81 MG PO SCH (08:00)
[2020-02-18] MEDS: APIXABAN 2.5 MG TABLET PO SCH ×2 (08:00→22:13)
[2020-02-18] MEDS: METOPROLOL SUCCINATE (ER) 50 MG TAB.ER.24H PO SCH (08:00)
[2020-02-18] MEDS: PRIMIDONE 50 MG TAB PO SCH ×2 (08:00→17:41)
[2020-02-18 08:07] LABS: Anisocytosis Slight; HCT 30.4 % (34.0-46.0); HGB 9.8 gm/dL (11.4-16.0); Hypochromasia Moderate; MCH 33.1 pg (25.0-35.0); MCHC 32.2 g/dL (31.0-37.0); Macrocytosis Moderate; Mean Platelet Volume 6.9; Platelet Count 182 k/uL (150-450); RBC 2.95 m/uL (3.80-5.40); RDW 16.3 % (11.5-15.5); WBC 4.2 k/uL (3.8-10.6)
[2020-02-18 08:23] LABS: Calcium 6.7 mg/dL (8.4-10.2)
[2020-02-18] MEDS ORDERED: TOLVAPTAN 15 MG 1/2 TABLET PO ONE (11:01)
[2020-02-18 11:46] LABS: Glucose,Whole Blood 150 mg/dL (75-99)
--- NOTE | 2020-02-18 12:25 | PN ---
PROGRESS NOTE Patient is seen for followup for hyponatremia, she is currently sitting up in bed, patient is comfortable. Denies any significant complaints. She did get a dose of Samsca yesterday. Her sodium is pending from today. PHYSICAL EXAMINATION: On examination, blood pressure is 122/66, heart rate 114 per minute, patient is afebrile. Examination of the heart S1, S2. Examination of the lungs, bilateral breath sounds are heard. Abdomen is soft, nontender. Examination of lower extremities shows chronic skin changes bilaterally. Edema has decreased significantly. PREPARATION PLANT REPAIRER exam grossly intact. LABS: Show sodium 125, potassium 5.0, chloride 94, BUN 23, serum creatinine 1.2, hemoglobin 9.8 g/dL. ASSESSMENT: 1. Hyponatremia euvolemic with low urine osmolality, currently improved with Samsca. I will repeat another dose of Samsca today. Patient will likely need to take it at least 2 times a week as outpatient as this is a second admission for hyponatremia. Continue with fluid restriction and maintain good protein intake. 2. Chronic kidney disease stage 3 baseline creatinine 1.4-1.5 mg/dL secondary to nephrosclerosis and diabetic kidney disease. 3. Hyperkalemia with chronic kidney disease currently improved, no urine retention. 4. Cardiomyopathy, EF 35-40 percent. 5. Atrial fibrillation status post cardioversion on last admission. 6. Peripheral vascular disease, status post stenting of SFA on her last admission with Dr. Burnett. 7. Coronary artery disease, status post coronary artery bypass surgery. PLAN: Repeat tolvaptan today, resume low-dose loop diuretics in a.m. The patient will need close outpatient followup. She will also need to take tolvaptan at least twice a week post discharge. MMODL / IJN: [id number] /
[2020-02-18 16:31] LABS: Glucose,Whole Blood 133 mg/dL (75-99)
--- NOTE | 2020-02-18 16:50 | P.PN ---
Subjective 79-year-old female was admitted for euvolemic hyponatremia. Patient's serum sodium improved with Tolvaptan, nephrology regarding this medication twice a week although this is very expensive and insurance doesn't cover this medication patient is wishing to go home. Patient will be continued on this medication today we will repeat the basic metabolic profile tomorrow. Patient's serum creatinine did improve from 1.4-1.2 holding diuretics. Constitutional: Denied any fatigue denied any fever. Cardio vascular: denied any chest pain, palpitations Gastrointestinal denied any nausea vomiting Pulmonary: Denied any shortness of breath cough Neurologic denied any new focal deficits All inpatient medications were reviewed and appropriate changes in these medications as dictated in the interval history and assessment and plan. Objective - Vital Signs Vital signs: Vital Signs Temp 98.3 F 02/18/20 16:00 Pulse 95 02/18/20 16:00 Resp 16 02/18/20 16:00 BP 109/65 02/18/20 16:00 Pulse Ox 94 L 02/18/20 16:00 Intake & Output 02/17/20 02/18/20 02/18/20 18:59 06:59 18:59 Intake Total 200 236 472 Output Total 4526 882 4500 Balance -1250 -264 -1128 Weight 61.4 kg Intake: Oral 200 236 472 Output: Urine 2479 846 4391 Other: Voiding Method Bedside Commode Bedside Commode # Voids 1 1 1 - Exam PHYSICAL EXAMINATION: GENERAL: The patient is alert and oriented x3, not in any acute distress. Well developed, well nourished. HEENT: Pupils are round and equally reacting to light. EOMI. No scleral icterus. No conjunctival pallor. Normocephalic, atraumatic. No pharyngeal erythema. No thyromegaly. CARDIOVASCULAR: S1 and S2 present. No murmurs, rubs, or gallops. PULMONARY: Chest is clear to auscultation, no wheezing or crackles. ABDOMEN: Soft, nontender, nondistended, normoactive bowel sounds. No palpable organomegaly. MUSCULOSKELETAL: No joint swelling or deformity. EXTREMITIES: No cyanosis, clubbing, and has a 1+ pitting pedal edema bilaterally NEUROLOGICAL: Gross neurological examination did not reveal any focal deficits. SKIN: No rashes. - Labs CBC & Chem 7: 02/18/20 06:35 02/18/20 06:35 Labs: Abnormal Lab Results - Last 24 Hours (Table) 02/17/20 02/17/20 02/17/20 Range/Units 17:01 18:45 20:37 RBC (3.80-5.40) m/uL Hgb (11.4-16.0) gm/dL Hct (34.0-46.0) % MCV (80.0-100.0) fL RDW (11.5-15.5) % Sodium 122 L (137-145) mmol/L Chloride (98-107) mmol/L BUN (7-17) mg/dL Creatinine (0.52-1.04) mg/dL Glucose (74-99) mg/dL POC Glucose (mg/dL) 146 H 161 H (75-99) mg/dL Calcium (8.4-10.2) mg/dL 02/18/20 02/18/20 02/18/20 Range/Units 06:29 06:35 06:35 RBC 2.95 L (3.80-5.40) m/uL Hgb 9.8 L (11.4-16.0) gm/dL Hct 30.4 L (34.0-46.0) % MCV 103.0 H (80.0-100.0) fL RDW 16.3 H (11.5-15.5) % Sodium 125 L (137-145) mmol/L Chloride 94 L (98-107) mmol/L BUN 23 H (7-17) mg/dL Creatinine 1.20 H (0.52-1.04) mg/dL Glucose 103 H (74-99) mg/dL POC Glucose (mg/dL) 129 H (75-99) mg/dL Calcium 6.7 L (8.4-10.2) mg/dL 02/18/20 02/18/20 Range/Units 11:45 16:28 RBC (3.80-5.40) m/uL Hgb (11.4-16.0) gm/dL Hct (34.0-46.0) % MCV (80.0-100.0) fL RDW (11.5-15.5) % Sodium (137-145) mmol/L Chloride (98-107) mmol/L BUN (7-17) mg/dL Creatinine (0.52-1.04) mg/dL Glucose (74-99) mg/dL POC Glucose (mg/dL) 150 H 133 H (75-99) mg/dL Calcium (8.4-10.2) mg/dL Assessment and Plan Plan: -hyponatremia appears to be euvolemic, improved with Tolvaptan, patient will be given another dose of this medication. 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
[2020-02-18] MEDS: EZETIMIBE 10 MG TAB PO SCH (17:41)
[2020-02-18] MEDS: ATORVASTATIN 10 MG TAB PO SCH (17:41)
[2020-02-18 20:05] LABS: Glucose,Whole Blood 131 mg/dL (75-99)
[2020-02-19 06:22] LABS: Glucose,Whole Blood 140 mg/dL (75-99)
[2020-02-19] MEDS: GABAPENTIN 100 MG CAP PO SCH ×3 (06:45→20:48)
[2020-02-19] MEDS: INSULIN ASPART (NovoLOG) 100 UNIT/ML VIAL SQ SCH ×4 (07:58→20:48)
--- NOTE | 2020-02-19 08:25 | XR ---
EXAMINATION TYPE: XR chest 1V DATE OF EXAM: 02/19/2020 COMPARISON: 02/17/2020 HISTORY: Shortness of breath TECHNIQUE: Single frontal view of the chest is obtained. FINDINGS: Bilateral lower lobe infiltrate and small effusion. Cardiomegaly and postsurgical change. Atherosclerotic change aorta. Arthropathy of the shoulders. No pneumothorax. Underlying COPD suspecte d. Question epicardial lead. IMPRESSION: 1. Stable bilateral infiltrate and small effusion. Underlying mild venous congestion in the different ial diagnosis.
[2020-02-19] MEDS: APIXABAN 2.5 MG TABLET PO SCH ×2 (09:20→20:48)
[2020-02-19] MEDS: COLCHICINE 0.6 MG EACH PO SCH (09:21)
[2020-02-19] MEDS: ASPIRIN 81 MG PO SCH (09:21)
[2020-02-19] MEDS: METOPROLOL SUCCINATE (ER) 50 MG TAB.ER.24H PO SCH (09:22)
[2020-02-19] MEDS: PANTOPRAZOLE 40 MG/10 ML VIAL IVP SCH (09:23)
[2020-02-19] MEDS: PRIMIDONE 50 MG TAB PO SCH ×2 (09:24→18:00)
[2020-02-19] MEDS: TAMSULOSIN 0.4 MG CAP.ER.24H PO SCH (09:24)
[2020-02-19 09:31] LABS: Calcium 6.6 mg/dL (8.4-10.2); Potassium 5.7 mmol/L (3.5-5.1)
[2020-02-19] MEDS ORDERED: FUROSEMIDE 10 MG/ML 4 ML VIAL IV STA (09:36)
[2020-02-19] MEDS ORDERED: TOLVAPTAN 30 MG TABLET PO ONE (09:45)
[2020-02-19 11:53] LABS: Glucose,Whole Blood 164 mg/dL (75-99)
--- NOTE | 2020-02-19 14:05 | P.PN ---
Subjective 79-year-old female was admitted for euvolemic hyponatremia. Patient's serum sodium improved with Tolvaptan, nephrology regarding this medication twice a week although this is very expensive and insurance doesn't cover this medication patient is wishing to go home. Patient will be continued on this medication today we will repeat the basic metabolic profile tomorrow. Patient's serum creatinine did improve from 1.4-1.2 holding diuretics. 02/29/2020 Patient had a chest x-ray today showing pulmonary edema. Patient is being resumed on diuretics in IV form patient has only minimal improvement in serum sodium today. Patient received samsca yesterday and today. Constitutional: Denied any fatigue denied any fever. Cardio vascular: denied any chest pain, palpitations Gastrointestinal denied any nausea vomiting Pulmonary: Denied any shortness of breath cough Neurologic denied any new focal deficits All inpatient medications were reviewed and appropriate changes in these medications as dictated in the interval history and assessment and plan. Objective - Vital Signs Vital signs: Vital Signs Temp 97.6 F 02/19/20 11:51 Pulse 87 02/19/20 12:00 Resp 16 02/19/20 11:51 BP 113/64 02/19/20 11:51 Pulse Ox 95 02/19/20 11:51 Intake & Output 02/18/20 02/19/20 02/19/20 18:59 06:59 18:59 Intake Total 952 180 Output Total 1600 1180 Balance -648 -1180 180 Weight 88.6 kg Intake: Oral 952 180 Output: Urine 1600 1180 Other: Voiding Method Bedside Commode Bedside Commode Bedside Commode # Voids 1 2 - Exam PHYSICAL EXAMINATION: GENERAL: The patient is alert and oriented x3, not in any acute distress. Well developed, well nourished. HEENT: Pupils are round and equally reacting to light. EOMI. No scleral icterus. No conjunctival pallor. Normocephalic, atraumatic. No pharyngeal erythema. No thyromegaly. CARDIOVASCULAR: S1 and S2 present. No murmurs, rubs, or gallops. PULMONARY: Chest is clear to auscultation, no wheezing or crackles. ABDOMEN: Soft, nontender, nondistended, normoactive bowel sounds. No palpable organomegaly. MUSCULOSKELETAL: No joint swelling or deformity. EXTREMITIES: No cyanosis, clubbing, and has a 1+ pitting pedal edema bilaterally NEUROLOGICAL: Gross neurological examination did not reveal any focal deficits. SKIN: No rashes. - Labs CBC & Chem 7: 02/18/20 06:35 02/19/20 07:59 Labs: Abnormal Lab Results - Last 24 Hours (Table) 02/18/20 02/18/20 02/19/20 Range/Units 16:28 20:04 06:21 Sodium (137-145) mmol/L Potassium (3.5-5.1) mmol/L Chloride (98-107) mmol/L BUN (7-17) mg/dL Creatinine (0.52-1.04) mg/dL Glucose (74-99) mg/dL POC Glucose (mg/dL) 133 H 131 H 140 H (75-99) mg/dL Calcium (8.4-10.2) mg/dL 02/19/20 02/19/20 Range/Units 07:59 11:51 Sodium 126 L (137-145) mmol/L Potassium 5.7 H (3.5-5.1) mmol/L Chloride 95 L (98-107) mmol/L BUN 27 H (7-17) mg/dL Creatinine 1.29 H (0.52-1.04) mg/dL Glucose 182 H (74-99) mg/dL POC Glucose (mg/dL) 164 H (75-99) mg/dL Calcium 6.6 L (8.4-10.2) mg/dL Assessment and Plan Plan: -hyponatremia hypervolemic because of which patient is on diuretics. 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
--- NOTE | 2020-02-19 14:14 | CDI ---
Documentation Clarification Form Date: 02/19/2020 01:37:31 PM From: Jazmine Gordon RN CCDS Admit Date: 02/17/2020 01:41:00 AM Patient Name: Digna Navarro Visit Number: [id number] Discharge Date: ATTENTION: The Clinical Documentation Specialists (CDI) and [facility] Coding Staff appreciate your assistance in clarifying documentation. Please respond to the clarification below the line at the bottom and electronically sign. The CDI & [facility] Coding staff will review the response and follow-up if needed. Please note: Queries are made part of the Legal Health Record. If you have any questions, please contact the author of this message via ITS. Dr. Alfonso Armendariz Conflicting documentation has been found in the medical record: Nephrology consult 02/16 Chronic kidney disease, NKF stage 3. Internal Medicine 02/17 Chronic kidney disease stage 2 History/Risk Factors: 79-year female presents to the ED for severe hyponatremia and hyperkalemia. Medical history of right sided heart failure, COPD, DM, HTN Clinical Indicators: 10/19/19 BUN 37; CR 1.46; GFR 34 01/23/20 BUN 44; CR 1.70; GFR 28 02/18/20 BUN 23; CR 1.20; GFR 43 Per Nephro consult 02/16 baseline Creatinine about 1.4-1.5 Per H&P 02/16 baseline creatinine 1.1 Treatment: Held Lasix unitl 02/18; 0.9ns 83cc/hr of 1L over 12 hrs; 02/16 & 02/17 Samsca 15mg po x1; Smasca 30mg po x 1 In your opinion, what is the most clinically appropriate diagnosis for this patient? CKD Stage 3 CKD Stage 2 Other explanation of clinical findings Unable to determine (no explanation for clinical findings) (Last Revision: July 2017) Unable to determine MTDD
--- NOTE | 2020-02-19 14:28 | PN ---
PROGRESS NOTE Patient is seen for followup for hyponatremia and chronic kidney disease. Her serum sodium responded to Samsca. However, patient is not able to obtain it as outpatient. She has been mildly hypervolemic. Lasix was on hold after her initial admission however, over the last couple of days, the she has developed some edema in her lower extremities. Patient denies any significant chest pains or shortness of breath. Sodium today is up to 126. PHYSICAL EXAMINATION: Blood pressure is 115/66, heart rate 108 per minute, she is afebrile. Examination of the heart S1, S2. Examination of the lungs, bilateral breath sounds are heard. Decreased breath sounds at bases. Abdomen is soft, nontender. Examination of the lower extremities shows chronic skin changes bilaterally, edema 1+ bilaterally. CABINET BUILDER exam grossly intact. LABS: Show sodium 126, potassium 5.7, chloride 95, BUN 27, creatinine 1.29, blood sugar was 182. ASSESSMENT: 1. Chronic kidney disease, NKF stage III. Baseline creatinine about 1.4-1.5 mg/dL. The creatinine of 1.29 is probably falsely low secondary to mild hypervolemia. Again, I will resume her Lasix and we will give her a dose of IV Lasix today. 2. Hyponatremia currently hypervolemic, improved with Samsca. However, patient cannot continue with Samsca as our outpatient as it is not covered. I will maintain her on free water restriction and resume her loop diuretics. We need to avoid sodium chloride tabs due to underlying CHF and hypervolemia. 3. Hyperkalemia associated with chronic kidney disease. Expect improvement with restarting loop diuretics. 4. Coronary artery disease with history of coronary bypass surgery in the past. 5. Severe pulmonary hypertension. 6. Paroxysmal atrial fibrillation maintained on anticoagulation in the form of Eliquis. PLAN: Resume Lasix. Maintain free water restriction and the patient can be discharged with plans to follow up as outpatient in one week's time with repeat labs to be done in 2 days' post discharge. MMODL / IJN: [id number] /
--- NOTE | 2020-02-19 14:39 | CDI ---
Documentation Clarification Form Date: 02/19/2020 02:21:35 PM From: Jazmine Gordon RN CCDS Admit Date: 02/17/2020 01:41:00 AM Patient Name: Digna Navarro Visit Number: [id number] Discharge Date: ATTENTION: The Clinical Documentation Specialists (CDI) and [facility] Coding Staff appreciate your assistance in clarifying documentation. Please respond to the clarification below the line at the bottom and electronically sign. The CDI & [facility] Coding staff will review the response and follow-up if needed. Please note: Queries are made part of the Legal Health Record. If you have any questions, please contact the author of this message via ITS. Dr. Jennifer Armendariz Right sided heart failure is documented in the H&P 02/16 History/Risk Factors: 79-year-old female presents for severe hyponatremia and hyperkalemia. Medical history of COPD, DM, HLD, Pulmonary HTN, DE and right sided heart failure. Clinical Indicators: 02/15 VS/Pulse OX: B/P 148/84; HR 88; Temp 97.7 F Oral; RR 18; SpO2 100% room air Echocardiogram Results: 02/01 BETHEL: Impaired LV function with EF around 35% 10/19 Echo: Overall left ventricular systolic function is mildly impaired with EF of 45-50% 02/16 Chest X Ray: New patchy density right lower lobe 02/18 Chest X Ray: Stable bilateral infiltrate and small effusion. Underlying mild venous congestion Nephro consult 02/16 Cardiomyopathy ejection fraction of about 35-40% Treatment: 02/18 Lasix 40mg Iv x1; 02/19 Lasix po daily In your professional opinion, can you please clarify the acuity and type of CHF if known? Heart Failure Ruled Out Chronic Systolic Heart Failure Acute on Chronic Systolic Heart Failure Chronic Diastolic Heart Failure Acute on Chronic Diastolic Heart Failure Chronic Systolic & Diastolic Heart Failure Acute on Chronic Systolic & Diastolic Heart Failure Unable to Determine Other, please specify (Last Revision: July 2017) Acute on Chronic Systolic Heart Failure MTDD
[2020-02-19 17:01] LABS: Glucose,Whole Blood 185 mg/dL (75-99)
[2020-02-19] MEDS: EZETIMIBE 10 MG TAB PO SCH (18:00)
[2020-02-19] MEDS: ATORVASTATIN 10 MG TAB PO SCH (18:00)
[2020-02-19 19:54] LABS: Glucose,Whole Blood 138 mg/dL (75-99)
[2020-02-20 06:13] LABS: Glucose,Whole Blood 138 mg/dL (75-99)
[2020-02-20] MEDS: INSULIN ASPART (NovoLOG) 100 UNIT/ML VIAL SQ SCH (06:28)
[2020-02-20] MEDS: GABAPENTIN 100 MG CAP PO SCH (06:28)
[2020-02-20] MEDS ORDERED: PANTOPRAZOLE 40 MG TABLET PO SCH (07:30)
[2020-02-20] MEDS: METOPROLOL SUCCINATE (ER) 50 MG TAB.ER.24H PO SCH (08:38)
[2020-02-20] MEDS: PRIMIDONE 50 MG TAB PO SCH (08:38)
[2020-02-20] MEDS: TAMSULOSIN 0.4 MG CAP.ER.24H PO SCH (08:39)
[2020-02-20] MEDS: APIXABAN 2.5 MG TABLET PO SCH (08:39)
[2020-02-20] MEDS: COLCHICINE 0.6 MG EACH PO SCH (08:39)
[2020-02-20] MEDS: ASPIRIN 81 MG PO SCH (08:39)
[2020-02-20 08:49] VITALS: BP 122/80; PULSE 94; RESP 18; TEMP 97.5
[2020-02-20] MEDS ORDERED: FUROSEMIDE 40 MG TAB PO SCH (09:00)
[2020-02-20 10:17] LABS: Calcium 6.5 mg/dL (8.4-10.2); Potassium 5.9 mmol/L (3.5-5.1)
[2020-02-20] MEDS ORDERED: SODIUM POLYSTYRENE SULFONATE 15 GM/60 ML BOTTLE PO STA (10:33)
--- NOTE | 2020-02-20 10:57 | P.DS ---
Providers Date of admission: 02/17/20 01:41 Attending physician: David Jim Consults: 02/17/20 01:28 Consult Physician Routine Consulting Provider: Digna Roth Consult Reason/Comments: hyponatremia Do you want consulting provider notified?: Yes Primary care physician: Quang Kolbqvi [facility] Course: 79-year-old female was admitted for euvolemic hyponatremia. Patient's serum sodium improved with Tolvaptan, nephrology regarding this medication twice a week although this is very expensive and insurance doesn't cover this medication patient is wishing to go home. Patient will be continued on this medication today we will repeat the basic metabolic profile tomorrow. Patient's serum creatinine did improve from 1.4-1.2 holding diuretics. 02/19/2020 Patient had a chest x-ray today showing pulmonary edema. Patient is being resumed on diuretics in IV form patient has only minimal improvement in serum sodium today. Patient received samsca yesterday and today. 02/20/2020 Patient's serum sodium improved 129. Patient the Lasix dose will be increased to 40 oral twice a day. Since insurance doesn't approve Samsca patient will be adjusted discharged on fluid restriction and Lasix. No sodium chloride tabs because of his head history of congestive heart failure. Patient's creatinine went up to 1.44 patient was a valid by nephrology patient has elevated potassium of 5.9 for which we'll the give her a dose of capsulate and patient will need repeat basic metabolic profile in the tested in 3 days and close follow-up with nephrology as an outpatient. Patient will be on low potassium, cardiac and fluid restricted 1200 mL diet PHYSICAL EXAMINATION: GENERAL: The patient is alert and oriented x3, not in any acute distress. Well developed, well nourished. HEENT: Pupils are round and equally reacting to light. EOMI. No scleral icterus. No conjunctival pallor. Normocephalic, atraumatic. No pharyngeal erythema. No thyromegaly. CARDIOVASCULAR: S1 and S2 present. No murmurs, rubs, or gallops. PULMONARY: Chest is clear to auscultation, no wheezing or crackles. ABDOMEN: Soft, nontender, nondistended, normoactive bowel sounds. No palpable organomegaly. MUSCULOSKELETAL: No joint swelling or deformity. EXTREMITIES: No cyanosis, clubbing, and has a 1+ pitting pedal edema bilaterally NEUROLOGICAL: Gross neurological examination did not reveal any focal deficits. SKIN: No rashes. Assessment and Plan Plan: -hyponatremia hypervolemic mild improvement with the diuretics. 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 Mild acute renal failurerenal azotemia from congestive heart failure chronic systolic dysfunction Congestive heart heart failure chronic systolic dysfunction with the mild acute exacerbation proximal atrial fibrillation patient is presently rate controlled continue with anticoagulation -Severe pulmonary hypertension -Type 2 diabetes mellitus with diabetic peripheral neuropathy -Hyperlipidemia -Essential hypertension -Coronary artery disease with the CABG in the past -Chronic kidney disease stage II from diabetic nephropathy, baseline creatinine appears to be around 1.1, creatinine improved from 1.5-1.3 -Peripheral arterial disease Plan - Discharge Summary Discharge Rx Participant: No New Discharge Prescriptions: New Colchicine [Colcrys] 0.6 mg PO DAILY each Continue Ezetimibe [Zetia] 10 mg PO DAILY@1800 Lovastatin [Mevacor] 10 mg PO DAILY@1800 Primidone [Mysoline] 100 mg PO DAILY@1800 Aspirin EC [Ecotrin Low Dose] 81 mg PO DAILY@0900 Primidone [Mysoline] 50 mg PO DAILY@0900 Ondansetron HCl [Zofran] 4 mg PO Q8H PRN PRN Reason: Nausea And Vomiting Acetaminophen Tab [Tylenol] 650 mg PO Q4H PRN PRN Reason: Fever And/ Or Pain INSULIN ASPART (NovoLOG) [NovoLOG (formulary)] See Protocol SQ ACHS Gabapentin [Neurontin] 100 mg PO TID@0600,1400,2200 Calcium Carb-Vit D 500Mg-200Un [Oscal 500+D] 1 tab PO TID-W/MEALS Cyanocobalamin [Vitamin B-12] 500 mcg PO DAILY@1500 Apixaban [Eliquis] 2.5 mg PO BID@0900,2100 Metoprolol Succinate (ER) [Toprol XL] 150 mg PO DAILY@0900 Famotidine [Pepcid] 20 mg PO DAILY@0600 Tamsulosin [Flomax] 0.4 mg PO DAILY@0900 Folic Acid 1 mg PO DAILY@0900 Changed Furosemide [Lasix] 40 mg PO BID #0 Discontinued sitaGLIPtin PHOS/metFORMIN HCL [Janumet 50-1,000 mg Tablet] 1 tab PO BID@0900,1800 Colchicine [Colcrys] 0.6 mg PO BID@0900,1800 Cephalexin [Keflex] 500 mg PO TID@0900,1300,2100 Discharge Medication List Ezetimibe [Zetia] 10 mg PO DAILY@1800 11/20/13 [History] Lovastatin [Mevacor] 10 mg PO DAILY@1800 11/20/13 [History] Aspirin EC [Ecotrin Low Dose] 81 mg PO DAILY@0900 01/25/19 [History] Primidone [Mysoline] 50 mg PO DAILY@0900 01/25/19 [History] Primidone [Mysoline] 100 mg PO DAILY@1800 01/25/19 [History] Acetaminophen Tab [Tylenol] 650 mg PO Q4H PRN 02/17/20 [History] Apixaban [Eliquis] 2.5 mg PO BID@0900,2100 02/17/20 [History] Calcium Carb-Vit D 500Mg-200Un [Oscal 500+D] 1 tab PO TID-W/MEALS 02/17/20 [History] Cyanocobalamin [Vitamin B-12] 500 mcg PO DAILY@1500 02/17/20 [History] Famotidine [Pepcid] 20 mg PO DAILY@0600 02/17/20 [History] Folic Acid 1 mg PO DAILY@0900 02/17/20 [History] Gabapentin [Neurontin] 100 mg PO TID@0600,1400,2200 02/17/20 [History] INSULIN ASPART (NovoLOG) [NovoLOG (formulary)] See Protocol SQ ACHS 02/17/20 [History] Metoprolol Succinate (ER) [Toprol XL] 150 mg PO DAILY@0900 02/17/20 [History] Ondansetron HCl [Zofran] 4 mg PO Q8H PRN 02/17/20 [History] Tamsulosin [Flomax] 0.4 mg PO DAILY@0900 02/17/20 [History] Colchicine [Colcrys] 0.6 mg PO DAILY each 02/20/20 [Rx] Furosemide [Lasix] 40 mg PO BID #0 02/20/20 [Rx] Follow up Appointment(s)/Referral(s): Quang Abdi MD [Primary Care Provider] - 02/20/20 12:30 pm [facility], [NON-STAFF] - Patient Instructions/Handouts: Hyponatremia (DC), Hyperkalemia (DC), Hypocalcemia (DC) Activity/Diet/Wound Care/Special Instructions: low potassium, cardiac, fluid restricted 1200 cc Discharge Disposition: HOME WITH HOME HEALTH SERVICES
--- NOTE | 2020-02-20 16:02 | PN ---
PROGRESS NOTE Patient is seen for followup for hyponatremia, her serum sodium is improved to 129. Overall, patient is comfortable. She denies any significant complaints. She is maintained on fluid restriction now. PHYSICAL EXAMINATION: On examination today, blood pressure 122/80, heart rate 94 per minute, she is afebrile. Examination of the heart S1, S2. Examination of the lungs, bilateral breath sounds are heard. Abdomen is soft, nontender. Examination of the lower extremities shows edema 1+ bilaterally with chronic skin changes. LEGAL NURSE CONSULTANT exam grossly intact. LABS: Show sodium 129, potassium 5.9, BUN 32, serum creatinine 1.4 mg/dL. ASSESSMENT: 1. Hyponatremia, hypervolemic currently improved. Patient will be maintained on fluid restriction and oral Lasix and she is not able to obtain Samsca to take as outpatient. We will repeat labs in about 2-3 days and see her back for followup in about one week's time. 2. Hyperkalemia associated with chronic kidney disease. Expect improvement with loop diuretics. Patient is also advised regarding potassium restriction in diet. 3. Severe pulmonary hypertension. 4. Paroxysmal atrial fibrillation, maintained on Eliquis, rate is controlled. PLAN: Continue fluid restriction. Maintain Lasix 40 mg b.i.d. and repeat labs in 2-3 days post discharge. Follow up in the office in about one week's time. MMODL / IJN: [id number] /
== END 2020-02-20 11:58 | disposition home health service (06) | DRG 643 ==
LOC: EC 23:09 → 3SCARD 02-17 01:41
PROVIDERS: ADMIT Hospitalist; ATTEND Hospitalist
DX: E22.2 Syndrome of inappropriate secretion of antidiuretic hormone (principal); I50.23 Acute on chronic systolic (congestive) heart failure; I13.0 Hypertensive heart and chronic kidney disease with heart failure and stage 1 through stage 4 chronic kidney disease, or unspecified chronic kidney disease; I42.9 Cardiomyopathy, unspecified; J98.11 Atelectasis; E11.22 Type 2 diabetes mellitus with diabetic chronic kidney disease; E11.42 Type 2 diabetes mellitus with diabetic polyneuropathy; E11.51 Type 2 diabetes mellitus with diabetic peripheral angiopathy without gangrene; E78.5 Hyperlipidemia, unspecified; E83.51 Hypocalcemia; E86.1 Hypovolemia; E87.5 Hyperkalemia; I25.10 Atherosclerotic heart disease of native coronary artery without angina pectoris; I25.2 Old myocardial infarction; I27.29 Other secondary pulmonary hypertension; I48.0 Paroxysmal atrial fibrillation; J44.9 Chronic obstructive pulmonary disease, unspecified; N18.30 Chronic kidney disease, stage 3 unspecified; Z79.01 Long term (current) use of anticoagulants; Z79.4 Long term (current) use of insulin; Z79.82 Long term (current) use of aspirin; Z79.899 Other long term (current) drug therapy; Z80.0 Family history of malignant neoplasm of digestive organs; Z80.1 Family history of malignant neoplasm of trachea, bronchus and lung; Z80.3 Family history of malignant neoplasm of breast; Z82.49 Family history of ischemic heart disease and other diseases of the circulatory system; Z82.5 Family history of asthma and other chronic lower respiratory diseases; Z87.891 Personal history of nicotine dependence; Z90.710 Acquired absence of both cervix and uterus; Z95.1 Presence of aortocoronary bypass graft; Z95.820 Peripheral vascular angioplasty status with implants and grafts; Z60.2 Problems related to living alone; G47.30 Sleep apnea, unspecified; Z99.89 Dependence on other enabling machines and devices; T50.2X5A Adverse effect of carbonic-anhydrase inhibitors, benzothiadiazides and other diuretics, initial encounter; Z90.49 Acquired absence of other specified parts of digestive tract; Z90.89 Acquired absence of other organs; M10.9 Gout, unspecified; K59.00 Constipation, unspecified; Z88.5 Allergy status to narcotic agent; Z88.8 Allergy status to other drugs, medicaments and biological substances
CPT/HCPCS: 36415; 71045; 80048; 80053; 83735; 83935; 84295; 85025; 85027; 93005; 96360; 96361; 99285

== ENCOUNTER 2020-03-21 20:22 | Inpatient (IN) | payer MEDICARE, OTHER ==
--- NOTE | 2020-03-21 20:46 | ED ---
General Adult HPI - General Chief complaint: Fall Stated complaint: weakness Time Seen by Provider: 03/21/20 20:33 Source: EMS Mode of arrival: EMS - History of Present Illness Initial comments: Dictation was produced using [employer] dictation software. please excuse any gramma tical, word or spelling errors. This patient was cared for during a federal and state declared state of emergency secondary to Covid 19 Chief Complaint: 80-year-old feel past nuchal history of COPD, diabetes, dyslipidemia, myocardial infarction presents after fall History of Present Illness: 1-year-old female she has chronic debility. She lives at home by herself. Patient states that she suffered a fall this morning at approximately 7 PM. Patient states she felt weak and legs gave out. She fell struck the back of her head on a toy audible. Patient waited see if her symptoms would improve. She did have physical therapy today and did well according to patient. She was resting at home when she attempted to get up when she felt so weak that she couldn't. She called EMS and decided come to the emergency room. She has not have any family for assistance. Her family all l [facility]. No other complaints at this time The ROS documented in this emergency department record has been reviewed and confirmed by me. Those systems with pertinent positive or negative responses have been documented in the HPI. All other systems are other negative and/or noncontributory. PHYSICAL EXAM: General Impression: Alert and oriented x3, not in acute distress HEENT: Tenderness to the palpation of the right occipital parietal area, extra- ocular movements intact, pupils equal and reactive to light bilaterally, mucous membranes moist. Cardiovascular: Heart regular rate and rhythm Chest: Able to complete full sentences, no retractions, no tachypnea Abdomen: abdomen soft, non-tender, non-distended, no organomegaly Musculoskeletal: Pulses present and equal in all extremities, no peripheral edema Motor: no focal deficits noted Neurological: CN II-XII grossly intact, no focal motor or sensory deficits noted Skin: Intact with no visualized rashes Psych: Normal affect and mood ED course: 80-year-old female presents after fall this morning. She also feels weak. She lives at home by herself and is a fall risk. As upon arrival are within acceptable limits. Laboratory evaluation obtained. Macrocytosis. Coag panel is unremarkable. Metabolic panel shows potassium 6.8 sodium 132. Slightly elevated renal markers from baseline. Rest of labs negative. Computed tomography scan of the brain is unremarkable. Chest x-ray is not acute. Pelvis x-rays negative. Patient has history of chronic kidney disease. She has had episodes of hyperkalemia in the past. This likely secondary to kidney injury. Patient does not have EKG changes. She is ordered for dextrose, Lasix, Kayexalate and insulin. Case is discussed with Dr. Jim who si willing to accept patient's care. He request that patient receive another dose of Kayexalate and 6 hours. EKG interpretation: Ventricular rate 62, sinus rhythm, MT interval 140, QRS 80, QTc 448. No MT prolongation, no QTC prolongation, no ST or T-wave changes noted. EKG compared February 17 2020 showing no changes. Overall, this EKG is unremarkable - Related Data Home Medications Medication Instructions Recorded Confirmed Ezetimibe [Zetia] 10 mg PO DAILY@1800 11/20/13 02/17/20 Lovastatin [Mevacor] 10 mg PO DAILY@1800 11/20/13 02/17/20 Aspirin EC [Ecotrin Low Dose] 81 mg PO DAILY@0900 01/25/19 02/17/20 Primidone [Mysoline] 50 mg PO DAILY@0900 01/25/19 02/17/20 Primidone [Mysoline] 100 mg PO DAILY@1800 01/25/19 02/17/20 Acetaminophen Tab [Tylenol] 650 mg PO Q4H PRN 02/17/20 02/17/20 Apixaban [Eliquis] 2.5 mg PO BID@0900,2100 02/17/20 02/17/20 Calcium Carb-Vit D 500Mg-200Un 1 tab PO TID-W/MEALS 02/17/20 02/17/20 [Oscal 500+D] Cyanocobalamin [Vitamin B-12] 500 mcg PO DAILY@1500 02/17/20 02/17/20 Famotidine [Pepcid] 20 mg PO DAILY@0600 02/17/20 02/17/20 Folic Acid 1 mg PO DAILY@0900 02/17/20 02/17/20 Gabapentin [Neurontin] 100 mg PO TID@0600,1400,2200 02/17/20 02/17/20 INSULIN ASPART (NovoLOG) [NovoLOG See Protocol SQ ACHS 02/17/20 02/17/20 (formulary)] Metoprolol Succinate (ER) [Toprol 150 mg PO DAILY@0900 02/17/20 02/17/20 XL] Ondansetron HCl [Zofran] 4 mg PO Q8H PRN 02/17/20 02/17/20 Tamsulosin [Flomax] 0.4 mg PO DAILY@0900 02/17/20 02/17/20 Previous Rx's Medication Instructions Recorded Colchicine [Colcrys] 0.6 mg PO DAILY each 02/20/20 Furosemide [Lasix] 40 mg PO BID #0 02/20/20 Allergies Allergy/AdvReac Type Severity Reaction Status Date / Time albuterol [From DuoNeb] AdvReac Nausea Verified 02/17/20 10:00 cortisone AdvReac PAIN Verified 02/17/20 10:00 hydrocodone AdvReac Nausea Verified 02/17/20 10:00 ipratropium [From DuoNeb] AdvReac Nausea Verified 02/17/20 10:00 procaine HCl [From Novocain] AdvReac pain Verified 02/17/20 10:00 allergy medicines AdvReac "dries me Uncoded 02/17/20 10:00 out, bloody noses,generalized pain" Review of Systems ROS Statement: Those systems with pertinent positive or pertinent negative responses have been documented in the HPI. ROS Other: All systems not noted in ROS Statement are negative. Past Medical History Past Medical History: COPD, Diabetes Mellitus, Hyperlipidemia, Hypertension, Myocardial Infarction ([place]), Sleep Apnea/CPAP/BIPAP Additional Past Medical History / Comment(s): tremors,NO left arm blood draw or blood pressure(vessel harvested for CABG), blockages in angelica legs, Coonstipation, gout, PAD Last Myocardial Infarction Date:: 1999 History of Any Multi-Drug Resistant Organisms: None Reported Past Surgical History: Appendectomy, Coronary Bypass/CABG, Heart Catheterization, Hysterectomy, Tonsillectomy Additional Past Surgical History / Comment(s): angiogram. Right neck lymphnode removal Past Anesthesia/Blood Transfusion Reactions: No Reported Reaction Past Psychological History: No Psychological Hx Reported Smoking Status: Former smoker Past Alcohol Use History: None Reported Past Drug Use History: None Reported - Past Family History Mother Family Medical History: COPD, Myocardial Infarction ([place]) Brother(s) Family Medical History: Cancer Additional Family Medical History / Comment(s): LUNG CANCER Son(s) Family Medical History: Cancer Additional Family Medical History / Comment(s): COLON CANCER Sister(s) Family Medical History: Cancer Additional Family Medical History / Comment(s): (2) SISTERS HAD BREAST CANCER. Course Vital Signs 03/21/20 03/21/20 20:24 21:35 Temperature 98 F Pulse Rate 63 62 Respiratory 18 7 L Rate Blood Pressure 118/57 108/53 O2 Sat by Pulse 98 94 L Oximetry Medical Decision Making - Lab Data Result diagrams: 03/21/20 21:19 03/21/20 21:08 Lab Results 03/21/20 03/21/20 03/21/20 Range/Units 21:08 21:08 21:08 WBC (3.8-10.6) k/uL RBC (3.80-5.40) m/uL Hgb (11.4-16.0) gm/dL Hct (34.0-46.0) % MCV (80.0-100.0) fL MCH (25.0-35.0) pg MCHC (31.0-37.0) g/dL RDW (11.5-15.5) % Plt Count (150-450) k/uL MPV Neutrophils % % Lymphocytes % % Monocytes % % Eosinophils % % Basophils % % Neutrophils # (1.3-7.7) k/uL Lymphocytes # (1.0-4.8) k/uL Monocytes # (0-1.0) k/uL Eosinophils # (0-0.7) k/uL Basophils # (0-0.2) k/uL Hypochromasia Anisocytosis Macrocytosis PT 10.9 (9.0-12.0) sec INR 1.1 (<1.2) APTT 23.7 (22.0-30.0) sec Sodium 132 L (137-145) mmol/L Potassium 6.8 H* (3.5-5.1) mmol/L Chloride 95 L (98-107) mmol/L Carbon Dioxide 25 (22-30) mmol/L Anion Gap 12 mmol/L BUN 66 H (7-17) mg/dL Creatinine 2.15 H (0.52-1.04) mg/dL Est GFR (CKD-EPI)AfAm 24 (>60 ml/min/1.73 sqM) Est GFR (CKD-EPI)NonAf 21 (>60 ml/min/1.73 sqM) Glucose 148 H (74-99) mg/dL Calcium 7.4 L (8.4-10.2) mg/dL Magnesium 2.4 H (1.6-2.3) mg/dL Total Bilirubin 0.5 (0.2-1.3) mg/dL AST 31 (14-36) U/L ALT 23 (4-34) U/L Alkaline Phosphatase 106 (38-126) U/L Troponin I <0.012 (0.000-0.034) ng/mL Total Protein 7.6 (6.3-8.2) g/dL Albumin 4.2 (3.5-5.0) g/dL 03/21/20 Range/Units 21:19 WBC 5.9 (3.8-10.6) k/uL RBC 3.34 L (3.80-5.40) m/uL Hgb 10.6 L (11.4-16.0) gm/dL Hct 35.1 (34.0-46.0) % MCV 104.9 H (80.0-100.0) fL MCH 31.7 (25.0-35.0) pg MCHC 30.3 L (31.0-37.0) g/dL RDW 16.7 H (11.5-15.5) % Plt Count 186 (150-450) k/uL MPV 7.0 Neutrophils % 68 % Lymphocytes % 19 % Monocytes % 7 % Eosinophils % 4 % Basophils % 1 % Neutrophils # 4.0 (1.3-7.7) k/uL Lymphocytes # 1.1 (1.0-4.8) k/uL Monocytes # 0.4 (0-1.0) k/uL Eosinophils # 0.2 (0-0.7) k/uL Basophils # 0.0 (0-0.2) k/uL Hypochromasia Slight Anisocytosis Slight Macrocytosis Moderate PT (9.0-12.0) sec INR (<1.2) APTT (22.0-30.0) sec Sodium (137-145) mmol/L Potassium (3.5-5.1) mmol/L Chloride (98-107) mmol/L Carbon Dioxide (22-30) mmol/L Anion Gap mmol/L BUN (7-17) mg/dL Creatinine (0.52-1.04) mg/dL Est GFR (CKD-EPI)AfAm (>60 ml/min/1.73 sqM) Est GFR (CKD-EPI)NonAf (>60 ml/min/1.73 sqM) Glucose (74-99) mg/dL Calcium (8.4-10.2) mg/dL Magnesium (1.6-2.3) mg/dL Total Bilirubin (0.2-1.3) mg/dL AST (14-36) U/L ALT (4-34) U/L Alkaline Phosphatase (38-126) U/L Troponin I (0.000-0.034) ng/mL Total Protein (6.3-8.2) g/dL Albumin (3.5-5.0) g/dL Disposition Clinical Impression: Fall, Weakness Disposition: ADMITTED IP TO THIS [facility] Condition: Critical Referrals: Quang Abdi MD [Primary Care Provider] - 1-2 days Decision Time: 22:11
[2020-03-21 21:27] LABS: Anisocytosis Slight; Basophils % (A) 1 %; Eosinophils # (A) 0.2 k/uL (0-0.7); Eosinophils % (A) 4 %; HCT 35.1 % (34.0-46.0); HGB 10.6 gm/dL (11.4-16.0); Hypochromasia Slight; Lymphocytes # (A) 1.1 k/uL (1.0-4.8); Lymphocytes % (A) 19 %; MCH 31.7 pg (25.0-35.0); MCHC 30.3 g/dL (31.0-37.0); MCV 104.9 fL (80.0-100.0); Macrocytosis Moderate; Monocytes # (A) 0.4 k/uL (0-1.0); Monocytes % (A) 7 %; Neutrophils % (A) 68 %; Platelet Count 186 k/uL (150-450); RBC 3.34 m/uL (3.80-5.40); RDW 16.7 % (11.5-15.5); WBC 5.9 k/uL (3.8-10.6)
--- NOTE | 2020-03-21 21:28 | CT ---
EXAMINATION TYPE: CT brain cspine wo con DATE OF EXAM: 03/21/2020 COMPARISON: 02/08/2020 CT brain HISTORY: Fall. CT DLP: 1387.7 mGycm Automated exposure control for dose reduction was used. There is cerebral cortical atrophy. There is no mass effect nor midline shift. There is no sign of in tracranial hemorrhage. The calvarium is intact. There is normal aeration of the mastoid sinuses. The skull base is intact. Cervical vertebra have normal alignment. There is some degenerative disc space narrowing at C4-5 and C5-6 with spur formation. There is multilevel mild hypertrophic cervical facet arthropathy. There is no evidence of a fracture. There is some pleural thickening on the right side. IMPRESSION: Cerebral atrophy. No acute intracranial abnormality. No change compared to old exam. Spondylotic changes in the cervical spine. No fracture. Right pleural effusion.
[2020-03-21 21:29] LABS: Albumin 4.2 g/dL (3.5-5.0); Calcium 7.4 mg/dL (8.4-10.2); Magnesium 2.4 mg/dL (1.6-2.3); Total Bilirubin 0.5 mg/dL (0.2-1.3); Total Protein 7.6 g/dL (6.3-8.2)
[2020-03-21 21:30] LABS: INR 1.1 (<1.2); Partial Thromboplastin Time 23.7 sec (22.0-30.0); Prothrombin Time 10.9 sec (9.0-12.0)
--- NOTE | 2020-03-21 21:31 | XR ---
EXAMINATION TYPE: XR chest 1V portable DATE OF EXAM: 03/21/2020 COMPARISON: 02/19/2020 HISTORY: Fall. Weakness. TECHNIQUE: FINDINGS: Heart is enlarged. There is mild pulmonary vascular congestion. There is some blunting of b oth costophrenic angles and more on the right side. There are sternal wires. There are chest leads. IMPRESSION: Congestive heart failure with pleural effusions that is not significantly different than last exam.
[2020-03-21 21:33] LABS: Potassium 6.8 mmol/L (3.5-5.1)
--- NOTE | 2020-03-21 21:45 | XR ---
EXAMINATION TYPE: XR pelvis AP view DATE OF EXAM: 03/21/2020 COMPARISON: 08/23/2016 HISTORY: Fall. Pain. TECHNIQUE: Single view FINDINGS: The pelvic ring is intact. Proximal femurs are intact. Sacroiliac joints appear normal. The re is no evidence of a fracture. IMPRESSION: No acute abnormality of the pelvis. No fracture. No adverse change compared to old exam.
[2020-03-21] MEDS ORDERED: DEXTROSE 50% SYRINGE 50 ML IVP STA (21:49)
[2020-03-21] MEDS ORDERED: INSULIN REGULAR 100 UNIT/ML VIAL IV ONE (21:49)
[2020-03-21] MEDS ORDERED: FUROSEMIDE 10 MG/ML 4 ML VIAL IV STA (21:49)
[2020-03-21] MEDS ORDERED: SODIUM POLYSTYRENE SULFONATE 15 GM/60 ML BOTTLE PO STA (21:49)
[2020-03-21] MEDS ORDERED: NALOXONE 0.4 MG/ML 1 ML VIAL IV PRN (22:11)
[2020-03-21] MEDS ORDERED: ONDANSETRON 4 MG/2 ML VIAL IVP PRN (22:11)
[2020-03-21] MEDS ORDERED: SODIUM CHLORIDE 0.9% 1,000 ML IV SCH (22:15)
[2020-03-22 00:30] LABS: Calcium 7.5 mg/dL (8.4-10.2); Potassium 5.8 mmol/L (3.5-5.1)
[2020-03-22] MEDS ORDERED: SODIUM POLYSTYRENE SULFONATE 15 GM/60 ML BOTTLE PO ONE ×2 (04:00→09:30)
[2020-03-22 04:19] LABS: Calcium 7.2 mg/dL (8.4-10.2)
[2020-03-22 04:50] LABS: Potassium 6.8 mmol/L (3.5-5.1)
[2020-03-22] MEDS ORDERED: SODIUM POLYSTYRENE SULFONATE 15 GM/60 ML BOTTLE PO STA ×2 (05:27→13:51)
[2020-03-22 06:05] LABS: Glucose,Whole Blood 93 mg/dL (75-99)
[2020-03-22 10:32] LABS: Appearance,Urine Cloudy (Clear); Bacteria,Urine Rare /hpf; Bilirubin,Urine Negative (Negative); Blood,Urine Negative (Negative); Color,Urine Yellow; Glucose,Urine (UA) Negative (Negative); Hyaline Casts,Urine 7 /lpf (0-2); Ketones,Urine Negative (Negative); Leukocyte Esterase,Urine Large (Negative); Mucus,Urine Rare /hpf; Nitrite,Urine Negative (Negative); Protein,Urine Trace (Negative); RBC,Urine 5 /hpf (0-5); Specific Gravity,Urine 1.015 (1.001-1.035); Squamous Epithelial Cell,Urine 3 /hpf (0-4); Transitional Epi Cells,Urine <1 /hpf (0-1); Urobilinogen,Urine <2.0 mg/dL (<2.0); WBC,Urine 81 /hpf (0-5)
[2020-03-22 10:36] LABS: Calcium 7.3 mg/dL (8.4-10.2)
[2020-03-22 10:37] LABS: Potassium 6.2 mmol/L (3.5-5.1)
[2020-03-22 12:06] LABS: Glucose,Whole Blood 150 mg/dL (75-99)
[2020-03-22] MEDS ORDERED: SODIUM CHLORIDE 0.9% 1,000 ML IV SCH (14:00)
[2020-03-22 16:26] LABS: Glucose,Whole Blood 113 mg/dL (75-99)
[2020-03-22] MEDS: METOPROLOL SUCCINATE (ER) 50 MG TAB.ER.24H PO SCH (18:52)
[2020-03-22] MEDS: PRIMIDONE 50 MG TAB PO SCH ×2 (18:53→19:52)
--- NOTE | 2020-03-22 19:36 | P.HPIM ---
History of Present Illness H&P Date: 03/22/20 Chief Complaint: Muscle weakness History of presenting complaint: This is a pleasant 80-year-old patient of Dr. Greg Kline. Chronic stable medical conditions include COPD, diabetes, hyperlipidemia, hypertension, parkinsonism, sleep apnea, coronary artery disease with prior bypass. CHF combined with systolic and diastolic dysfunction EF 45-50%, paroxysmal atrial flutter. Normally lives alone , uses a walker . Patient presents with feeling weak diet legs really feeling weak to the point did she really rundown. No fever no chills. Appetite fair. Found to be severe ly hyperkalemic. Patient initiated refused Kayexalate. On etc. to this morning. Patient renal function was worse. Review of systems: GEN.: Tired EYES: None HEENT: None NECK: None RESPIRATORY: Mild shortness of breath CARDIOVASCULAR: None GASTROINTESTINAL: None GENITOURINARY: None MUSCULOSKELETAL: Joint pains, muscle weakness LYMPHATICS: None HEMATOLOGICAL: None PSYCHIATRY: None NEUROLOGICAL: Uses a walker Past medical history to include: Atrial flutter, xerosis lower extremity, severe secondary pulmonary hypertension, moderate to severe tricuspid regurgitation, diabetes mellitus type 2 with peripheral neuropathy, obesity, hyperlipidemia, hypertension, coronary artery disease with prior bypass, chronic kidney disease stage III, gait dysfunction uses a walker Social history: Uses a walker. 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 Lives at [facility]. Patient smoked for 61 years stopped in 2012. No alcohol. Physical examination: VITAL SIGNS: 98, 63, 18, 118/57, 98% room air GENERAL: BMI 36.9, sitting up in a chair, awake EYES: Pupils equal. Conjunctiva normal. HEENT: External appearance of nose and ears normal, oral cavity grossly normal. Scant scalp hair NECK: JVD not raised; masses not palpable. HEART: Irregular heart beat; edema present LUNGS: Respiratory rate normal, diminished breath sounds ABDOMEN: Soft, nontender, liver spleen not palpable, no masses palpable. PSYCH: Alert and oriented x3; mood and affect normal. DERMATOLOGICAL: Dry skin, with dystrophic nails. INVESTIGATIONS, reviewed in the clinical context: White count 5.9 hemoglobin 10.6 platelets 186 potassium 6.8 bun 66 creatinine 2.25 EKG tracing personally reviewed by me-normal sinus rhythm and normal T waves, U waves Chest x-ray film personally reviewed by me-cardiomegaly with questionable venous prominence Previous testing: Bun 48 creatinine 1.6 on 03/13/2020 Assessment: - Acute kidney injury likely prerenal. Patient has been strictly following a very fluid restricted regime and Lasix.. Baseline creatinine is 1.6. -Acute severe hyperkalemia from kidney injury. Patient had refused Kayexalate. Decreased this morning. -Acute myopathy from electrolyte abnormalities causing paresis leading to fall -Paroxysmal atrial flutter,, currently in sinus rhythm -Bilateral lower extremity xerosis -Secondary pulmonary hypertension-severe -Moderate severe tricuspid regurgitation -Diabetes mellitus type 2 with diabetic peripheral neuropathy -Obesity BMI 39 -Hyperlipidemia -Essential hypertension -Coronary artery disease with prior history of bypass -Chronic kidney disease stage III from diabetic nephropathy and hypertensive nephrosclerosis. -Chronic gait dysfunction does use a walker -Urine outflow obstruction -Peripheral arterial disease-stenting of the right superficial femoral artery. For intermittent claudication by Dr. Mcmullen -Iron deficient anemia. Receiving IV iron Plan: Patient's current clinical and biochemical findings were described to the patient. We'll gently hydrate the patient overnight. Hold off diuretics were today. Use Wilmar wrap lower extremity. Potassium repeated later today was 4.8. Recheck labs in the morning. Patient's chest x-rays suggest fluid overload but clinically patient is not short of breath.. Past Medical History Past Medical History: COPD, Diabetes Mellitus, Hyperlipidemia, Hypertension, Myocardial Infarction (MA), Sleep Apnea/CPAP/BIPAP Additional Past Medical History / Comment(s): tremors,NO left arm blood draw or blood pressure(vessel harvested for CABG), blockages in angelica legs, Coonstipation, gout, PAD Last Myocardial Infarction Date:: 1999 History of Any Multi-Drug Resistant Organisms: None Reported Past Surgical History: Appendectomy, Coronary Bypass/CABG, Heart Catheterization, Hysterectomy, Tonsillectomy Additional Past Surgical History / Comment(s): angiogram. Right neck lymphnode removal Past Anesthesia/Blood Transfusion Reactions: No Reported Reaction Past Psychological History: No Psychological Hx Reported Additional Psychological History / Comment(s): Pt resides alone. She uses a walker to ambulate. She no longer drives, her sister in law drives. Pt has a glucometer and a nebulizer but will not use because it nauseates her. 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 Pt lives at [facility]. Smoking Status: Former smoker Past Alcohol Use History: None Reported Additional Past Alcohol Use History / Comment(s): Pt started smoking in 1952 and quit in 2004 Past Drug Use History: None Reported - Past Family History Mother Family Medical History: COPD, Myocardial Infarction (MA) Brother(s) Family Medical History: Cancer Additional Family Medical History / Comment(s): LUNG CANCER Son(s) Family Medical History: Cancer Additional Family Medical History / Comment(s): COLON CANCER Sister(s) Family Medical History: Cancer Additional Family Medical History / Comment(s): (2) SISTERS HAD BREAST CANCER. Medications and Allergies Home Medications Medication Instructions Recorded Confirmed Type Ezetimibe [Zetia] 10 mg PO DAILY 11/20/13 03/21/20 History Lovastatin [Mevacor] 10 mg PO HS 11/20/13 03/21/20 History Primidone [Mysoline] 50 mg PO DAILY 01/25/19 03/21/20 History Primidone [Mysoline] 100 mg PO HS 01/25/19 03/21/20 History Apixaban [Eliquis] 2.5 mg PO BID 02/17/20 03/21/20 History Calcium Carb-Vit D 500Mg-200Un 1 tab PO TID 02/17/20 03/21/20 History [Oscal 500+D] Cyanocobalamin [Vitamin B-12] 500 mcg PO DAILY 02/17/20 03/21/20 History Folic Acid 1 mg PO DAILY 02/17/20 03/21/20 History Gabapentin [Neurontin] 100 mg PO QID PRN 02/17/20 03/21/20 History Metoprolol Succinate (ER) [Toprol 50 mg PO DAILY 02/17/20 03/21/20 History XL] Furosemide [Lasix] 40 mg PO BID #0 02/20/20 03/21/20 Rx Colchicine [Colcrys] 0.6 mg PO BID 03/21/20 03/21/20 History Allergies Allergy/AdvReac Type Severity Reaction Status Date / Time albuterol [From DuoNeb] AdvReac Nausea Verified 02/17/20 10:00 cortisone AdvReac PAIN Verified 02/17/20 10:00 hydrocodone AdvReac Nausea Verified 02/17/20 10:00 ipratropium [From DuoNeb] AdvReac Nausea Verified 02/17/20 10:00 procaine HCl [From Novocain] AdvReac pain Verified 02/17/20 10:00 allergy medicines AdvReac "dries me Uncoded 02/17/20 10:00 out, bloody noses,generalized pain" Physical Exam Vitals: Vital Signs Temp Pulse Pulse Resp BP BP Pulse Ox 03/22/20 08:00 98.1 F 64 18 114/59 100 03/22/20 04:00 97.3 F L 61 18 117/73 98 03/22/20 02:00 70 18 03/21/20 23:33 98.1 F 70 18 113/81 100 03/21/20 21:35 62 7 L 108/53 94 L 03/21/20 20:24 98 F 63 18 118/57 98 Intake and Output 03/21/20 03/22/20 03/22/20 22:59 06:59 14:59 Intake Total 240 Output Total 0 Balance 0 240 Intake: Oral 240 Output: Urine 0 Other: Voiding Method Bedside Commode Bedside Commode # Voids 0 1 Weight 90.718 kg 91.5 kg Results CBC & Chem 7: 03/21/20 21:19 03/22/20 16:50 Labs: Abnormal Lab Results - Last 24 Hours (Table) 03/21/20 03/21/20 03/21/20 Range/Units 10:07 21:08 21:19 RBC 3.34 L (3.80-5.40) m/uL Hgb 10.6 L (11.4-16.0) gm/dL MCV 104.9 H (80.0-100.0) fL MCHC 30.3 L (31.0-37.0) g/dL RDW 16.7 H (11.5-15.5) % Sodium 132 L (137-145) mmol/L Potassium 6.8 H* (3.5-5.1) mmol/L Chloride 95 L (98-107) mmol/L BUN 66 H (7-17) mg/dL Creatinine 2.15 H (0.52-1.04) mg/dL Glucose 148 H (74-99) mg/dL POC Glucose (mg/dL) (75-99) mg/dL Calcium 7.4 L (8.4-10.2) mg/dL Magnesium 2.4 H (1.6-2.3) mg/dL Urine Appearance Cloudy H (Clear) Urine Protein Trace H (Negative) Ur Leukocyte Esterase Large H (Negative) Urine WBC 81 H (0-5) /hpf Urine WBC Clumps Moderate H (None) /hpf Urine Bacteria Rare H (None) /hpf Hyaline Casts 7 H (0-2) /lpf Urine Mucus Rare H (None) /hpf 03/21/20 03/21/20 03/22/20 Range/Units 21:46 23:07 03:50 RBC (3.80-5.40) m/uL Hgb (11.4-16.0) gm/dL MCV (80.0-100.0) fL MCHC (31.0-37.0) g/dL RDW (11.5-15.5) % Sodium 135 L 132 L (137-145) mmol/L Potassium 6.0 H 5.8 H 6.8 H* (3.5-5.1) mmol/L Chloride 96 L 97 L (98-107) mmol/L BUN 67 H 68 H (7-17) mg/dL Creatinine 2.25 H 2.12 H (0.52-1.04) mg/dL Glucose 67 L (74-99) mg/dL POC Glucose (mg/dL) (75-99) mg/dL Calcium 7.5 L 7.2 L (8.4-10.2) mg/dL Magnesium (1.6-2.3) mg/dL Urine Appearance (Clear) Urine Protein (Negative) Ur Leukocyte Esterase (Negative) Urine WBC (0-5) /hpf Urine WBC Clumps (None) /hpf Urine Bacteria (None) /hpf Hyaline Casts (0-2) /lpf Urine Mucus (None) /hpf 03/22/20 03/22/20 Range/Units 09:55 12:03 RBC (3.80-5.40) m/uL Hgb (11.4-16.0) gm/dL MCV (80.0-100.0) fL MCHC (31.0-37.0) g/dL RDW (11.5-15.5) % Sodium 133 L (137-145) mmol/L Potassium 6.2 H* (3.5-5.1) mmol/L Chloride 94 L (98-107) mmol/L BUN 68 H (7-17) mg/dL Creatinine 2.21 H (0.52-1.04) mg/dL Glucose 184 H (74-99) mg/dL POC Glucose (mg/dL) 150 H (75-99) mg/dL Calcium 7.3 L (8.4-10.2) mg/dL Magnesium (1.6-2.3) mg/dL Urine Appearance (Clear) Urine Protein (Negative) Ur Leukocyte Esterase (Negative) Urine WBC (0-5) /hpf Urine WBC Clumps (None) /hpf Urine Bacteria (None) /hpf Hyaline Casts (0-2) /lpf Urine Mucus (None) /hpf Thrombosis Risk Factor Assmnt - Choose All That Apply Any of the Below Risk Factors Present?: Yes Each Factor Represents 1 point: Abnormal pulmonary function (COPD), Obesity (BMI >25), Swollen legs (current) Other Risk Factors: Yes Each Risk Factor Represents 3 Points: Age 75 years or older Thrombosis Risk Factor Assessment Total Risk Factor Score: 6 Thrombosis Risk Factor Assessment Level: High Risk
[2020-03-22] MEDS: APIXABAN 2.5 MG TABLET PO SCH (19:57)
[2020-03-22] MEDS: ATORVASTATIN 10 MG TAB PO SCH (19:58)
[2020-03-22] MEDS ORDERED: COLCHICINE 0.6 MG EACH PO SCH (21:00)
[2020-03-22 21:29] LABS: Glucose,Whole Blood 156 mg/dL (75-99)
[2020-03-23 06:22] LABS: Glucose,Whole Blood 146 mg/dL (75-99)
[2020-03-23 08:56] LABS: Potassium 4.8 mmol/L (3.5-5.1)
[2020-03-23 09:00] LABS: Calcium 6.4 mg/dL (8.4-10.2)
[2020-03-23] MEDS: FOLIC ACID 1 MG TAB PO SCH (09:53)
[2020-03-23] MEDS: COLCHICINE 0.6 MG EACH PO SCH (09:53)
[2020-03-23] MEDS: METOPROLOL SUCCINATE (ER) 50 MG TAB.ER.24H PO SCH (09:53)
[2020-03-23] MEDS: EZETIMIBE 10 MG TAB PO SCH (09:53)
[2020-03-23] MEDS: APIXABAN 2.5 MG TABLET PO SCH ×2 (09:53→20:51)
[2020-03-23] MEDS: PRIMIDONE 50 MG TAB PO SCH ×2 (09:53→20:51)
[2020-03-23] MEDS: CYANOCOBALAMIN 500 MCG TAB PO SCH (09:53)
[2020-03-23 12:16] LABS: Glucose,Whole Blood 163 mg/dL (75-99)
[2020-03-23] MEDS ORDERED: LACTULOSE 20 GM/30 ML CUP PO ONE (14:48)
[2020-03-23] MEDS ORDERED: CALCIUM GLUCONATE 1 GM in SODIUM CHLORIDE 0.9% 100 ML IVPB ONE (16:27)
[2020-03-23 16:40] LABS: Glucose,Whole Blood 207 mg/dL (75-99)
[2020-03-23] MEDS: CALCIUM CARB-VIT D 500MG-200UN 1 EACH TAB PO SCH ×2 (17:27→20:52)
[2020-03-23] MEDS: GABAPENTIN 100 MG CAP PO SCH (17:27)
[2020-03-23] MEDS: PSYLLIUM HUSK 100% 6 GM PACKET PO SCH (17:28)
--- NOTE | 2020-03-23 19:25 | P.PN ---
Progress Note - Text Progress Note Date: 03/23/20 Chief Complaint: Muscle weakness History of presenting complaint: This is a pleasant 80-year-old patient of Dr. Greg Kline. Chronic stable medical conditions include COPD, diabetes, hyperlipidemia, hypertension, parkinsonism, sleep apnea, coronary artery disease with prior bypass. CHF combined with systolic and diastolic dysfunction EF 45-50%, paroxysmal atrial flutter. Normally lives alone , uses a walker . Patient presents with feeling weak diet legs really feeling weak to the point did she really rundown. No fever no chills. Appetite fair. Found to be severely hyperkalemic. Patient initiated refused Kayexalate. On etc. to this morning. Patient renal function was worse. Admitted with-acute kidney injury, prerenal, severe hyperkalemia, causing acute myopathy. Diuretics were held. Gentle hydration. Potassium corrected. Today-feeling better. On gentle hydration. Diuretics to help. Feeling a bit weak. Oral intake fair. Review of systems: Was done for constitutional, cardiovascular, GI, pulmonary. relevant finding as above Active Medications Apixaban (Apixaban 2.5 Mg Tablet) 2.5 mg PO BID [facility] Last Admin: 03/23/20 09:53 Dose: 2.5 mg Documented by: Atorvastatin Calcium (Atorvastatin 10 Mg Tab) 10 mg PO HS [facility] Last Admin: 03/22/20 19:58 Dose: 10 mg Documented by: Calcium Carbonate (Calcium Carb-Vit D 500mg-200un 1 Each Tab) 1 each PO TID [facility] Last Admin: 03/23/20 17:27 Dose: 1 each Documented by: Colchicine (Colchicine 0.6 Mg Each) 0.6 mg PO DAILY [facility] Last Admin: 03/23/20 09:53 Dose: 0.6 mg Documented by: Cyanocobalamin (Cyanocobalamin 500 Mcg Tab) 500 mcg PO DAILY [facility] Last Admin: 03/23/20 09:53 Dose: 500 mcg Documented by: Ezetimibe (Ezetimibe 10 Mg Tab) 10 mg PO DAILY [facility] Last Admin: 03/23/20 09:53 Dose: 10 mg Documented by: Folic Acid (Folic Acid 1 Mg Tab) 1 mg PO DAILY [facility] Last Admin: 03/23/20 09:53 Dose: 1 mg Documented by: Gabapentin (Gabapentin 100 Mg Cap) 100 mg PO BID [facility] Last Admin: 03/23/20 17:27 Dose: 100 mg Documented by: Magnesium Oxide (Magnesium Oxide 400 Mg Tab) 400 mg PO BID [facility] Metoprolol Succinate (Metoprolol Succinate (Er) 50 Mg Tab.Er.24h) 50 mg PO DAILY [facility] Last Admin: 03/23/20 09:53 Dose: 50 mg Documented by: Naloxone HCl (Naloxone 0.4 Mg/Ml 1 Ml Vial) 0.2 mg IV Q2M PRN PRN Reason: Opioid Reversal Ondansetron HCl (Ondansetron 4 Mg/2 Ml Vial) 4 mg IVP Q8HR PRN PRN Reason: Nausea And Vomiting Primidone (Primidone 50 Mg Tab) 100 mg PO HS [facility] Last Admin: 03/22/20 19:52 Dose: Not Given Documented by: Primidone (Primidone 50 Mg Tab) 50 mg PO DAILY [facility] Last Admin: 03/23/20 09:53 Dose: 50 mg Documented by: Psyllium Hydrophilic Mucilloid (Psyllium Husk 100% 6 Gm Packet) 6 gm PO DAILY [facility] Last Admin: 03/23/20 17:28 Dose: Not Given Documented by: Physical examination: VITAL SIGNS: 98.6, 68, 18, 131/60, 100% on 3 L GENERAL: BMI 36.9, sitting up in a chair, awake EYES: Pupils equal. Conjunctiva normal. HEENT: External appearance of nose and ears normal, oral cavity grossly normal. Scant scalp hair NECK: JVD not raised; masses not palpable. HEART: Irregular heart beat; edema present LUNGS: Respiratory rate normal, diminished breath sounds ABDOMEN: Soft, nontender, liver spleen not palpable, no masses palpable. PSYCH: Alert and oriented x3; mood and affect normal. DERMATOLOGICAL: Dry skin, with dystrophic nails. INVESTIGATIONS, reviewed in the clinical context: March 23: Potassium 4.8 bun 62 creatinine 2 potassium 6.4. Ionized calcium 3.5 White count 5.9 hemoglobin 10.6 platelets 186 potassium 6.8 bun 66 creatinine 2.25 EKG tracing personally reviewed by me-normal sinus rhythm and normal T waves, U waves Chest x-ray film personally reviewed by me-cardiomegaly with questionable venous prominence Previous testing: Bun 48 creatinine 1.6 on 03/13/2020 Assessment: - Acute kidney injury likely prerenal. Patient has been strictly following a very fluid restricted regime and Lasix.. Baseline creatinine is 1.6. -Acute severe hyperkalemia from kidney injury. Patient had refused Kayexalate. Corrected -Acute myopathy from electrolyte abnormalities causing paresis leading to fall -Paroxysmal atrial flutter,, currently in sinus rhythm -Bilateral lower extremity xerosis -Secondary pulmonary hypertension-severe -Moderate severe tricuspid regurgitation -Diabetes mellitus type 2 with diabetic peripheral neuropathy -Obesity BMI 39 -Hyperlipidemia -Essential hypertension -Coronary artery disease with prior history of bypass -Chronic kidney disease stage III from diabetic nephropathy and hypertensive nephrosclerosis. -Chronic gait dysfunction does use a walker -Urine outflow obstruction -Peripheral arterial disease-stenting of the right superficial femoral artery. For intermittent claudication by Dr. Mcmullen -Iron deficient anemia. -Hypocalcemia. Plan: We'll give 1 amp of calcium gluconate. At magnesium supplement. Repeat labs in the morning. Resume patient diuretics in the morning. Resume patient's Neurontin. Repeat labs.
[2020-03-23] MEDS: ATORVASTATIN 10 MG TAB PO SCH (20:51)
[2020-03-23] MEDS: MAGNESIUM OXIDE 400 MG TAB PO SCH (20:51)
[2020-03-23 21:39] LABS: Glucose,Whole Blood 179 mg/dL (75-99)
[2020-03-24] MEDS: GABAPENTIN 100 MG CAP PO SCH ×3 (01:06→19:55)
[2020-03-24 06:07] LABS: Glucose,Whole Blood 173 mg/dL (75-99)
[2020-03-24 08:13] LABS: Albumin 3.9 g/dL (3.5-5.0); Calcium 7.1 mg/dL (8.4-10.2); Magnesium 2.5 mg/dL (1.6-2.3); Potassium 4.5 mmol/L (3.5-5.1); Total Bilirubin 0.5 mg/dL (0.2-1.3); Total Protein 7.1 g/dL (6.3-8.2)
[2020-03-24] MEDS: EZETIMIBE 10 MG TAB PO SCH (09:24)
[2020-03-24] MEDS: COLCHICINE 0.6 MG EACH PO SCH (09:24)
[2020-03-24] MEDS: METOPROLOL SUCCINATE (ER) 50 MG TAB.ER.24H PO SCH (09:24)
[2020-03-24] MEDS: CALCIUM CARB-VIT D 500MG-200UN 1 EACH TAB PO SCH ×3 (09:24→19:55)
[2020-03-24] MEDS: CYANOCOBALAMIN 500 MCG TAB PO SCH (09:24)
[2020-03-24] MEDS: FOLIC ACID 1 MG TAB PO SCH (09:24)
[2020-03-24] MEDS: MAGNESIUM OXIDE 400 MG TAB PO SCH ×2 (09:24→19:55)
[2020-03-24] MEDS: FUROSEMIDE 40 MG TAB PO SCH (09:25)
[2020-03-24] MEDS: APIXABAN 2.5 MG TABLET PO SCH ×2 (09:25→19:55)
[2020-03-24] MEDS: PRIMIDONE 50 MG TAB PO SCH ×2 (09:26→19:55)
[2020-03-24 11:46] LABS: Glucose,Whole Blood 405 mg/dL (75-99)
[2020-03-24] MEDS: PSYLLIUM HUSK 100% 6 GM PACKET PO SCH (13:43)
[2020-03-24] MEDS ORDERED: INSULIN ASPART (NovoLOG) 100 UNIT/ML VIAL SQ ONE (15:19)
[2020-03-24] MEDS ORDERED: INSULIN NPH 300 UNIT/3 ML VIAL SQ STA (15:20)
[2020-03-24 16:01] LABS: Glucose,Whole Blood 355 mg/dL (75-99)
[2020-03-24] MEDS: BACITRACIN ZINC 500 UNIT/GM OINT 28.4 GM TUBE TOPICAL SCH ×2 (16:47→20:29)
[2020-03-24] MEDS: CEPHALEXIN 250 MG CAP PO SCH ×2 (16:48→20:27)
[2020-03-24] MEDS: INSULIN ASPART (NovoLOG) 100 UNIT/ML VIAL SQ SCH (16:48)
[2020-03-24] MEDS: ATORVASTATIN 10 MG TAB PO SCH (19:55)
[2020-03-24 20:24] LABS: Glucose,Whole Blood 58 mg/dL (75-99)
[2020-03-24 20:45] LABS: Glucose,Whole Blood 57 mg/dL (75-99)
[2020-03-24 20:59] LABS: Glucose,Whole Blood 84 mg/dL (75-99)
[2020-03-24] MEDS ORDERED: INSULIN DETEMIR (LEVEMIR) 100 UNIT/ML SYR SQ SCH (21:00)
--- NOTE | 2020-03-24 22:16 | P.PN ---
Progress Note - Text Progress Note Date: 03/24/20 Chief Complaint: Muscle weakness History of presenting complaint: This is a pleasant 80-year-old patient of Dr. Greg Kline. Chronic stable medical conditions include COPD, diabetes, hyperlipidemia, hypertension, parkinsonism, sleep apnea, coronary artery disease with prior bypass. CHF combined with systolic and diastolic dysfunction EF 45-50%, paroxysmal atrial flutter. Normally lives alone , uses a walker . Patient presents with feeling weak diet legs really feeling weak to the point did she really rundown. No fever no chills. Appetite fair. Found to be severely hyperkalemic. Patient initiated refused Kayexalate. On etc. to this morning. Patient renal function was worse. Admitted with-acute kidney injury, prerenal, severe hyperkalemia, causing acute myopathy. Diuretics were held. Gentle hydration. Potassium corrected. Today-feeling much better. Lasix was started this morning. Patient feels week. Eating well. Review of systems: Was done for constitutional, cardiovascular, GI, pulmonary. relevant finding as above Active Medications Apixaban (Apixaban 2.5 Mg Tablet) 2.5 mg PO BID [facility] Last Admin: 03/24/20 19:55 Dose: 2.5 mg Documented by: Atorvastatin Calcium (Atorvastatin 10 Mg Tab) 10 mg PO HS [facility] Last Admin: 03/24/20 19:55 Dose: 10 mg Documented by: Bacitracin (Bacitracin Zinc 500 Unit/Gm Oint 28.4 Gm Tube) 1 applic TOPICAL BID [facility] Last Admin: 03/24/20 20:29 Dose: 1 applic Documented by: Calcium Carbonate (Calcium Carb-Vit D 500mg-200un 1 Each Tab) 1 each PO TID [facility] Last Admin: 03/24/20 19:55 Dose: 1 each Documented by: Cephalexin (Cephalexin 250 Mg Cap) 250 mg PO TID [facility] Last Admin: 03/24/20 20:27 Dose: 250 mg Documented by: Colchicine (Colchicine 0.6 Mg Each) 0.6 mg PO DAILY [facility] Last Admin: 03/24/20 09:24 Dose: 0.6 mg Documented by: Cyanocobalamin (Cyanocobalamin 500 Mcg Tab) 500 mcg PO DAILY [facility] Last Admin: 03/24/20 09:24 Dose: 500 mcg Documented by: Ezetimibe (Ezetimibe 10 Mg Tab) 10 mg PO DAILY [facility] Last Admin: 03/24/20 09:24 Dose: 10 mg Documented by: Folic Acid (Folic Acid 1 Mg Tab) 1 mg PO DAILY [facility] Last Admin: 03/24/20 09:24 Dose: 1 mg Documented by: Furosemide (Furosemide 40 Mg Tab) 40 mg PO DAILY [facility] Last Admin: 03/24/20 09:25 Dose: 40 mg Documented by: Gabapentin (Gabapentin 100 Mg Cap) 100 mg PO BID [facility] Last Admin: 03/24/20 19:55 Dose: 100 mg Documented by: Insulin Aspart (Insulin Aspart (Novolog) 100 Unit/Ml Vial) 4 unit SQ AC-TID [facility] Last Admin: 03/24/20 16:48 Dose: 4 unit Documented by: Insulin Detemir (Insulin Detemir (Levemir) 100 Unit/Ml Syr) 20 unit SQ HS [facility] Last Admin: 03/24/20 20:25 Dose: Not Given Documented by: Magnesium Oxide (Magnesium Oxide 400 Mg Tab) 400 mg PO BID [facility] Last Admin: 03/24/20 19:55 Dose: 400 mg Documented by: Metoprolol Succinate (Metoprolol Succinate (Er) 50 Mg Tab.Er.24h) 50 mg PO DAILY [facility] Last Admin: 03/24/20 09:24 Dose: 50 mg Documented by: Naloxone HCl (Naloxone 0.4 Mg/Ml 1 Ml Vial) 0.2 mg IV Q2M PRN PRN Reason: Opioid Reversal Ondansetron HCl (Ondansetron 4 Mg/2 Ml Vial) 4 mg IVP Q8HR PRN PRN Reason: Nausea And Vomiting Primidone (Primidone 50 Mg Tab) 100 mg PO HS [facility] Last Admin: 03/24/20 19:55 Dose: 100 mg Documented by: Primidone (Primidone 50 Mg Tab) 50 mg PO DAILY [facility] Last Admin: 03/24/20 09:26 Dose: 50 mg Documented by: Psyllium Hydrophilic Mucilloid (Psyllium Husk 100% 6 Gm Packet) 6 gm PO DAILY [facility] Last Admin: 03/24/20 13:43 Dose: Not Given Documented by: Physical examination: VITAL SIGNS: 98.2, 63, 18, 145/63, 100% on 3 L GENERAL: BMI 36.9, reclining in a chair, comfortable EYES: Pupils equal. Conjunctiva normal. HEENT: External appearance of nose and ears normal, oral cavity grossly normal. Scant scalp hair NECK: JVD not raised; masses not palpable. HEART: Irregular heart beat; edema present LUNGS: Respiratory rate normal, diminished breath sounds ABDOMEN: Soft, nontender, liver spleen not palpable, no masses palpable. PSYCH: Alert and oriented x3; mood and affect normal. DERMATOLOGICAL: Dry skin, with dystrophic nails. INVESTIGATIONS, reviewed in the clinical context: March 24: Potassium 4.5 bun 54 creatinine 1.58 March 23: Potassium 4.8 bun 62 creatinine 2 potassium 6.4. Ionized calcium 3.5 White count 5.9 hemoglobin 10.6 platelets 186 potassium 6.8 bun 66 creatinine 2.25 EKG tracing personally reviewed by me-normal sinus rhythm and normal T waves, U waves Chest x-ray film personally reviewed by me-cardiomegaly with questionable venous prominence Previous testing: Bun 48 creatinine 1.6 on 03/13/2020 Assessment: - Acute kidney injury likely prerenal. Patient has been strictly following a very fluid restricted regime and Lasix.. Baseline creatinine is 1.6.-Improved -Acute severe hyperkalemia from kidney injury. . Corrected -Acute myopathy from electrolyte abnormalities causing paresis leading to fall- better -Paroxysmal atrial flutter,, currently in sinus rhythm -Bilateral lower extremity xerosis -Secondary pulmonary hypertension-severe -Moderate severe tricuspid regurgitation -Diabetes mellitus type 2 with diabetic peripheral neuropathy -Obesity BMI 39 -Hyperlipidemia -Essential hypertension -Coronary artery disease with prior history of bypass -Chronic kidney disease stage III from diabetic nephropathy and hypertensive nephrosclerosis. -Chronic gait dysfunction does use a walker -Urine outflow obstruction -Peripheral arterial disease-stenting of the right superficial femoral artery. For intermittent claudication by Dr. Mcmullen -Iron deficient anemia. -Hypocalcemia. Give IV calcium gluconate -Painful peripheral neuropathy on Neurontin Plan: Patient seen by PT OT. Looking at [facility]. pantry worker has been consulted. Wilmar wrap lower extremity. Discussed with patient. I did advise her about trying to find long-term solution for her placement eventually. Given her multiple medical comorbidities. Suggested assisted living
[2020-03-25 06:17] LABS: Glucose,Whole Blood 116 mg/dL (75-99)
[2020-03-25] MEDS: INSULIN ASPART (NovoLOG) 100 UNIT/ML VIAL SQ SCH ×3 (06:18→17:05)
[2020-03-25] MEDS: BACITRACIN ZINC 500 UNIT/GM OINT 28.4 GM TUBE TOPICAL SCH (08:02)
[2020-03-25] MEDS: CEPHALEXIN 250 MG CAP PO SCH ×2 (08:02→17:05)
[2020-03-25] MEDS: APIXABAN 2.5 MG TABLET PO SCH (08:02)
[2020-03-25] MEDS: CALCIUM CARB-VIT D 500MG-200UN 1 EACH TAB PO SCH ×2 (08:02→17:05)
[2020-03-25] MEDS: CYANOCOBALAMIN 500 MCG TAB PO SCH (08:02)
[2020-03-25] MEDS: MAGNESIUM OXIDE 400 MG TAB PO SCH (08:03)
[2020-03-25] MEDS: GABAPENTIN 100 MG CAP PO SCH (08:03)
[2020-03-25] MEDS: COLCHICINE 0.6 MG EACH PO SCH (08:03)
[2020-03-25] MEDS: FOLIC ACID 1 MG TAB PO SCH (08:03)
[2020-03-25] MEDS: FUROSEMIDE 40 MG TAB PO SCH (08:03)
[2020-03-25] MEDS: EZETIMIBE 10 MG TAB PO SCH (08:03)
[2020-03-25] MEDS: PRIMIDONE 50 MG TAB PO SCH (08:04)
[2020-03-25] MEDS: METOPROLOL SUCCINATE (ER) 50 MG TAB.ER.24H PO SCH (08:04)
[2020-03-25] MEDS: PSYLLIUM HUSK 100% 6 GM PACKET PO SCH (08:32)
[2020-03-25 08:40] VITALS: TEMP 98.1
[2020-03-25 11:37] LABS: Glucose,Whole Blood 242 mg/dL (75-99)
[2020-03-25 11:45] VITALS: BP 137/76; PULSE 71; RESP 18
--- NOTE | 2020-03-25 15:37 | P.DS ---
Providers Date of admission: 03/21/20 22:12 Expected date of discharge: 03/25/20 Attending physician: David Jim Primary care physician: Quang Butler Hospital Course: Chief Complaint: Muscle weakness History of presenting complaint: This is a pleasant 80-year-old patient of Dr. Greg Kline. Chronic stable medical conditions include COPD, diabetes, hyperlipidemia, hypertension, parkinsonism, sleep apnea, coronary artery disease with prior bypass. CHF combined with systolic and diastolic dysfunction EF 45-50%, paroxysmal atrial flutter. Normally lives alone , uses a walker . Patient presents with feeling weak diet legs really feeling weak to the point did she really rundown. No fever no chills. Appetite fair. Found to be severely hyperkalemic. Patient initiated refused Kayexalate. On etc. to this morning. Patient renal function was worse. Admitted with-acute kidney injury, prerenal, severe hyperkalemia, causing acute myopathy. Diuretics were held. Gentle hydration. Potassium corrected. Creatinine dropped from 2.25 down to 1.58. Close to her baseline. Today-doing well. Eating well. Pain control in lower extremity. Discussed with patient. go for rehab. Discussed with social work nurse and the patient. Discussion and discharge planning more than 35 minutes Physical examination: VITAL SIGNS: 98.1, 71, 18, 1 37 x 76, 100% on 3 L GENERAL: BMI 36.9, reclining in a chair, comfortable EYES: Pupils equal. Conjunctiva normal. HEENT: External appearance of nose and ears normal, oral cavity grossly normal. Scant scalp hair NECK: JVD not raised; masses not palpable. HEART: Irregular heart beat; edema present LUNGS: Respiratory rate normal, diminished breath sounds ABDOMEN: Soft, nontender, liver spleen not palpable, no masses palpable. PSYCH: Alert and oriented x3; mood and affect normal. DERMATOLOGICAL: Dry skin, with dystrophic nails. INVESTIGATIONS, reviewed in the clinical context: March 24: Potassium 4.5 bun 54 creatinine 1.58 March 23: Potassium 4.8 bun 62 creatinine 2 potassium 6.4. Ionized calcium 3.5 White count 5.9 hemoglobin 10.6 platelets 186 potassium 6.8 bun 66 creatinine 2.25 EKG tracing personally reviewed by me-normal sinus rhythm and normal T waves, U waves Chest x-ray film personally reviewed by me-cardiomegaly with questionable venous prominence Previous testing: Bun 48 creatinine 1.6 on 03/13/2020 Assessment: - Acute kidney injury likely prerenal. Patient has been strictly following a very fluid restricted regime and Lasix.. Baseline creatinine is 1.6.-Improved -Acute severe hyperkalemia from kidney injury. . Corrected -Acute myopathy from electrolyte abnormalities causing paresis leading to fall- better -Paroxysmal atrial flutter,, currently in sinus rhythm -Bilateral lower extremity xerosis -Secondary pulmonary hypertension-severe -Moderate severe tricuspid regurgitation -Diabetes mellitus type 2 with diabetic peripheral neuropathy, uncontrolled with hyperglycemia -Obesity BMI 39 -Hyperlipidemia -Essential hypertension -Coronary artery disease with prior history of bypass -Chronic kidney disease stage III from diabetic nephropathy and hypertensive nephrosclerosis. -Chronic gait dysfunction does use a walker -Urine outflow obstruction -Peripheral arterial disease-stenting of the right superficial femoral artery. For intermittent claudication by Dr. Mcmullen -Iron deficient anemia. -Hypocalcemia. Give IV calcium gluconate -Painful peripheral neuropathy on Neurontin Disposition: ECF/[facility] Patient Condition at Discharge: Stable Plan - Discharge Summary Discharge Rx Participant: No New Discharge Prescriptions: New Cephalexin [Keflex] 250 mg PO TID #6 cap Insulin Detemir (Levemir) [Levemir] 20 unit SQ HS syr Magnesium Oxide [Mag-Ox] 400 mg PO DAILY tab Psyllium Husk 100% [Metamucil Packet] 6 gm PO DAILY packet INSULIN ASPART (NovoLOG) [NovoLOG (formulary)] 4 unit SQ AC-TID vial SILVER sulfADIAZINE Cream [Silvadene 1% Cream] 1 applic TOPICAL BID #1 gram Continue Ezetimibe [Zetia] 10 mg PO DAILY Lovastatin [Mevacor] 10 mg PO HS Primidone [Mysoline] 100 mg PO HS Primidone [Mysoline] 50 mg PO DAILY Calcium Carb-Vit D 500Mg-200Un [Oscal 500+D] 1 tab PO TID Cyanocobalamin [Vitamin B-12] 500 mcg PO DAILY Apixaban [Eliquis] 2.5 mg PO BID Metoprolol Succinate (ER) [Toprol XL] 50 mg PO DAILY Folic Acid 1 mg PO DAILY Colchicine [Colcrys] 0.6 mg PO DAILY #0 Changed Furosemide [Lasix] 40 mg PO DAILY #0 Gabapentin [Neurontin] 100 mg PO BID #6 Discharge Medication List Ezetimibe [Zetia] 10 mg PO DAILY 11/20/13 [History] Lovastatin [Mevacor] 10 mg PO HS 11/20/13 [History] Primidone [Mysoline] 50 mg PO DAILY 01/25/19 [History] Primidone [Mysoline] 100 mg PO HS 01/25/19 [History] Apixaban [Eliquis] 2.5 mg PO BID 02/17/20 [History] Calcium Carb-Vit D 500Mg-200Un [Oscal 500+D] 1 tab PO TID 02/17/20 [History] Cyanocobalamin [Vitamin B-12] 500 mcg PO DAILY 02/17/20 [History] Folic Acid 1 mg PO DAILY 02/17/20 [History] Metoprolol Succinate (ER) [Toprol XL] 50 mg PO DAILY 02/17/20 [History] Cephalexin [Keflex] 250 mg PO TID #6 cap 03/25/20 [Rx] Colchicine [Colcrys] 0.6 mg PO DAILY #0 03/25/20 [Rx] Furosemide [Lasix] 40 mg PO DAILY #0 03/25/20 [Rx] Gabapentin [Neurontin] 100 mg PO BID #6 03/25/20 [Rx] INSULIN ASPART (NovoLOG) [NovoLOG (formulary)] 4 unit SQ AC-TID vial 03/25/20 [Rx] Insulin Detemir (Levemir) [Levemir] 20 unit SQ HS syr 03/25/20 [Rx] Magnesium Oxide [Mag-Ox] 400 mg PO DAILY tab 03/25/20 [Rx] Psyllium Husk 100% [Metamucil Packet] 6 gm PO DAILY packet 03/25/20 [Rx] SILVER sulfADIAZINE Cream [Silvadene 1% Cream] 1 applic TOPICAL BID #1 gram 03/25/20 [Rx] Follow up Appointment(s)/Referral(s): Digna Roth MD [STAFF PHYSICIAN] - 10 Days All Burnett MD [STAFF PHYSICIAN] - 10 Days Quang Abdi MD [Primary Care Provider] - 1-2 days Activity/Diet/Wound Care/Special Instructions: fluid restict 1800 cc/day bmp - 5 days
--- NOTE | 2020-03-25 16:07 | CDI ---
Documentation Clarification Form Date: 03/25/2020 03:57:03 PM From: Juanita Jarrett CCS, CCDS Admit Date: 03/21/2020 10:12:00 PM Patient Name: Digna Navarro Visit Number: [id number] Discharge Date: ATTENTION: The Clinical Documentation Specialists (CDI) and [facility] Coding Staff appreciate your assistance in clarifying documentation. Please respond to the clarification below the line at the bottom and electronically sign. The CDI & [facility] Coding staff will review the response and follow-up if needed. Please note: Queries are made part of the Legal Health Record. If you have any questions, please contact the author of this message via ITS. Dr. David Jim: Atrial Flutter is documented in the 03/22 History & Physical and subsequent Progress Notes as "Paroxysmal Atrial Flutter". History/Risk factors: Hypertensive Heart & CKD III, combined Systolic & Diastolic CHF nos, CAD status post ID & CABG, COPD, DM II, Former Smoker. Clinical Indicators: Presented to the ED on 03/21 after a fall at home with weakness via EMS. Admitted with [facility], Acute severe Hyperkalemia from kidney injury, Acute myopathy from electrolyte abnormalities causing paresis and Paroxysmal Atrial Flutter. EKG/telemetry 03/21: R 62, Unusual P axis, possible ectopic atrial rhythm, Low voltage QRS, T wave abnormality, consider anterolateral ischemia, Abnormal EKG. Cardiology is not consulted. Treatment: IV Dextrose/Water, IV Lasix, IV Insulin, po Kayexalate, po Toprol, IV fluid 1,000 mls @ 50 mls/hr, po Eliquis, IV Calcium Gluconate, po Lasix, O2 2-3Lnc. In your professional opinion, in order to capture the severity of condition; can you please clarify the type of Atrial Flutter if known? Typical/Type I Atypical/Type II Other, please specify Unable to determine (Last Revision: July 2017) Unable to determine MTDD
[2020-03-25 16:58] LABS: Glucose,Whole Blood 191 mg/dL (75-99)
== END 2020-03-25 18:00 | DRG 683 ==
LOC: EC 20:22 → 3SCARD 22:12
PROVIDERS: ADMIT Hospitalist; ATTEND Hospitalist
DX: N17.9 Acute kidney failure, unspecified (principal); I13.0 Hypertensive heart and chronic kidney disease with heart failure and stage 1 through stage 4 chronic kidney disease, or unspecified chronic kidney disease; I48.92 Unspecified atrial flutter; I50.42 Chronic combined systolic (congestive) and diastolic (congestive) heart failure; W18.30XA Fall on same level, unspecified, initial encounter; Y92.019 Unspecified place in single-family (private) house as the place of occurrence of the external cause; E11.42 Type 2 diabetes mellitus with diabetic polyneuropathy; E11.22 Type 2 diabetes mellitus with diabetic chronic kidney disease; E11.51 Type 2 diabetes mellitus with diabetic peripheral angiopathy without gangrene; E11.65 Type 2 diabetes mellitus with hyperglycemia; J44.9 Chronic obstructive pulmonary disease, unspecified; I27.29 Other secondary pulmonary hypertension; E83.51 Hypocalcemia; E87.5 Hyperkalemia; D50.9 Iron deficiency anemia, unspecified; I07.1 Rheumatic tricuspid insufficiency; E66.9 Obesity, unspecified; N18.32 Chronic kidney disease, stage 3b; G72.9 Myopathy, unspecified; G20 Parkinson's disease; E78.5 Hyperlipidemia, unspecified; L85.3 Xerosis cutis; Z68.39 Body mass index [BMI] 39.0-39.9, adult; I25.2 Old myocardial infarction; Z91.81 History of falling; Z95.1 Presence of aortocoronary bypass graft; Z90.710 Acquired absence of both cervix and uterus; Z88.8 Allergy status to other drugs, medicaments and biological substances; Z79.899 Other long term (current) drug therapy; Z79.82 Long term (current) use of aspirin; Z79.01 Long term (current) use of anticoagulants; Z87.891 Personal history of nicotine dependence; Z82.49 Family history of ischemic heart disease and other diseases of the circulatory system; Z82.5 Family history of asthma and other chronic lower respiratory diseases; Z80.1 Family history of malignant neoplasm of trachea, bronchus and lung; Z80.0 Family history of malignant neoplasm of digestive organs; Z80.3 Family history of malignant neoplasm of breast; Z88.5 Allergy status to narcotic agent; Z88.4 Allergy status to anesthetic agent
CPT/HCPCS: 36415; 70450; 71045; 72125; 72170; 80048; 80053; 81001; 82330; 83735; 84132; 84484; 85025; 85610; 85730; 87077; 87086; 87186; 93005; 96374; 96375; 99285

== ENCOUNTER 2020-04-25 10:52 | Inpatient (IN) | payer MEDICARE, OTHER ==
--- NOTE | 2020-04-25 11:02 | ED ---
Fall HPI - General Stated Complaint: Fall Time Seen by Provider: 04/25/20 10:54 - History of Present Illness Initial Comments: 80-year-old female with history of COPD, hypertension, hyperlipidemia, CAD, paroxysmal a flutter, heart failure presenting to the emergency department with a chief complaint of fall. Patient brought to ED via EMS with c-collar. Patient states this occurred about 2 hours prior to arrival. Patient states she lives alone in an apartment. States she was in the kitchen near the counter when her legs buckled. Patient states she went down to the ground and hit her head in the right occipital parietal region. Patient denies loss of consciousness but did develop dizziness afterwards. Patient states she feels like the room is spinning around her. She denies any lightheadedness, blurry vision, chest pain or shortness of breath. Patient denies any history of vertigo or dizziness previously. She denies any nausea vomiting diarrhea. Denies any chest pain or shortness of breath. Patient does take eliquis. Patient states she feels like "Parkinson's is developing". - Related Data Home Medications Medication Instructions Recorded Confirmed Ezetimibe [Zetia] 10 mg PO DAILY 11/20/13 04/25/20 Lovastatin [Mevacor] 10 mg PO HS 11/20/13 04/25/20 Primidone [Mysoline] 50 mg PO DAILY 01/25/19 04/25/20 Primidone [Mysoline] 100 mg PO HS 01/25/19 04/25/20 Apixaban [Eliquis] 2.5 mg PO BID 02/17/20 04/25/20 Calcium Carb-Vit D 500Mg-200Un 1 tab PO TID 02/17/20 04/25/20 [Oscal 500+D] Cyanocobalamin [Vitamin B-12] 500 mcg PO DAILY 02/17/20 04/25/20 Folic Acid 1 mg PO DAILY 02/17/20 04/25/20 Metoprolol Succinate (ER) [Toprol 50 mg PO DAILY 02/17/20 04/25/20 XL] Colchicine [Colcrys] 0.6 mg PO BID 04/25/20 04/25/20 Furosemide [Lasix] 40 mg PO BID 04/25/20 04/25/20 sitaGLIPtin [Januvia] 50 mg PO DAILY 04/25/20 04/25/20 Previous Rx's Medication Instructions Recorded Gabapentin [Neurontin] 100 mg PO BID #6 03/25/20 Magnesium Oxide [Mag-Ox] 400 mg PO DAILY tab 03/25/20 Psyllium Husk 100% [Metamucil 6 gm PO DAILY packet 03/25/20 Packet] SILVER sulfADIAZINE Cream 1 applic TOPICAL BID #1 gram 03/25/20 [Silvadene 1% Cream] Allergies Allergy/AdvReac Type Severity Reaction Status Date / Time albuterol [From DuoNeb] AdvReac Nausea Verified 04/25/20 12:37 cortisone AdvReac PAIN Verified 04/25/20 12:37 hydrocodone AdvReac Nausea Verified 04/25/20 12:37 ipratropium [From DuoNeb] AdvReac Nausea Verified 04/25/20 12:37 procaine HCl [From Novocain] AdvReac pain Verified 04/25/20 12:37 allergy medicines AdvReac "dries me Uncoded 02/17/20 10:00 out, bloody noses,generalized pain" Review of Systems ROS Statement: Those systems with pertinent positive or pertinent negative responses have been documented in the HPI. ROS Other: All systems not noted in ROS Statement are negative. Past Medical History Past Medical History: COPD, Diabetes Mellitus, Hyperlipidemia, Hypertension, Myocardial Infarction ([place]), Sleep Apnea/CPAP/BIPAP Additional Past Medical History / Comment(s): tremors,NO left arm blood draw or blood pressure(vessel harvested for CABG), blockages in angelica legs, Coonstipation, gout, PAD Last Myocardial Infarction Date:: 1999 History of Any Multi-Drug Resistant Organisms: None Reported Past Surgical History: Appendectomy, Coronary Bypass/CABG, Heart Catheterization, Hysterectomy, Tonsillectomy Additional Past Surgical History / Comment(s): angiogram. Right neck lymphnode removal Past Anesthesia/Blood Transfusion Reactions: No Reported Reaction Past Psychological History: No Psychological Hx Reported Additional Psychological History / Comment(s): Pt resides alone. She uses a walker to ambulate. She no longer drives, her sister in law drives. Pt has a glucometer and a nebulizer but will not use because it nauseates her. 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 Pt lives at [facility]. Smoking Status: Former smoker Past Alcohol Use History: None Reported Additional Past Alcohol Use History / Comment(s): Pt started smoking in 1952 and quit in 2004 Past Drug Use History: None Reported - Past Family History Mother Family Medical History: COPD, Myocardial Infarction ([place]) Brother(s) Family Medical History: Cancer Additional Family Medical History / Comment(s): LUNG CANCER Son(s) Family Medical History: Cancer Additional Family Medical History / Comment(s): COLON CANCER Sister(s) Family Medical History: Cancer Additional Family Medical History / Comment(s): (2) SISTERS HAD BREAST CANCER. General Exam Limitations: physical limitation General appearance: alert, in no apparent distress Head exam: Present: normocephalic, normal inspection. Absent: atraumatic (Hematoma noted measuring approximately 5 cm in diameter at the right occipital parietal region.), other (Negative Zafar sign, raccoon eyes, hemotympanum.) Eye exam: Present: normal appearance, PERRL, EOMI Pupils: Present: normal accommodation ENT exam: Present: normal exam, normal oropharynx (No oral trauma. Patient has dentures.), mucous membranes moist, TM's normal bilaterally, normal external ear exam Neck exam: Present: normal inspection, full ROM. Absent: tenderness, lymphade nopathy Respiratory exam: Present: normal lung sounds bilaterally. Absent: respiratory distress, wheezes, rales, rhonchi, stridor Cardiovascular Exam: Present: regular rate, normal rhythm, normal heart sounds GI/Abdominal exam: Present: soft. Absent: tenderness, guarding, rebound Extremities exam: Present: normal inspection, full ROM, normal capillary refill, pedal edema (Bilateral lower extremity edema.), other (Palpable DP and PT.). Absent: tenderness, joint swelling Back exam: Present: normal inspection, full ROM. Absent: tenderness, CVA tenderness (R), CVA tenderness (L) Neurological exam: Present: alert, oriented X3 Psychiatric exam: Present: normal affect, normal mood Skin exam: Present: warm, dry (Skin is quite dry especially in the legs.), intact, normal color Course Vital Signs 04/25/20 04/25/20 11:22 12:06 Temperature 97.6 F 97.6 F Pulse Rate 53 L 52 L Respiratory 16 16 Rate Blood Pressure 148/57 148/57 O2 Sat by Pulse 98 99 Oximetry Medical Decision Making - Medical Decision Making 80-year-old female with history of COPD, hypertension, hyperlipidemia, CAD, paroxysmal a flutter, heart failure presenting to the emergency department with a chief complaint of fall. On physical examination, patient has a right parietal hematoma. She continued to feel dizzy so she was started on Antivert. A reevaluation, patient reports some improvement but it is still persistent. CT of the brain and C-spine is unremarkable. EKG showed junctional rhythm. CBC unremarkable. CMP reveals magnesium of 2.7 as well as a potassium of 6.2. Redraw the potassium is 6.0. Patient will be started on calcium gluconate 1 g and 30 mg of Kayexalate. Also there are some signs of acute kidney injury with elevated BUN of 71 and increase in creatinine from a month ago from 1.04-1.98. I spoke with who will admit patient for the medical management. Case was discussed with - Lab Data Result diagrams: 04/25/20 11:15 04/25/20 12:06 Lab Results 04/25/20 04/25/20 04/25/20 Range/Units 11:15 11:15 11:15 WBC 5.3 (3.8-10.6) k/uL RBC 2.98 L (3.80-5.40) m/uL Hgb 9.6 L (11.4-16.0) gm/dL Hct 31.2 L (34.0-46.0) % MCV 104.7 H (80.0-100.0) fL MCH 32.2 (25.0-35.0) pg MCHC 30.8 L (31.0-37.0) g/dL RDW 16.3 H (11.5-15.5) % Plt Count 146 L (150-450) k/uL MPV 7.7 Neutrophils % 68 % Lymphocytes % 18 % Monocytes % 6 % Eosinophils % 6 % Basophils % 0 % Neutrophils # 3.6 (1.3-7.7) k/uL Lymphocytes # 1.0 (1.0-4.8) k/uL Monocytes # 0.3 (0-1.0) k/uL Eosinophils # 0.3 (0-0.7) k/uL Basophils # 0.0 (0-0.2) k/uL Hypochromasia Slight Anisocytosis Slight Macrocytosis Moderate PT 11.0 (9.0-12.0) sec INR 1.0 (<1.2) APTT 24.6 (22.0-30.0) sec Sodium 139 (137-145) mmol/L Potassium 6.2 H* (3.5-5.1) mmol/L Chloride 104 (98-107) mmol/L Carbon Dioxide 28 (22-30) mmol/L Anion Gap 7 mmol/L BUN 71 H (7-17) mg/dL Creatinine 1.98 H (0.52-1.04) mg/dL Est GFR (CKD-EPI)AfAm 27 (>60 ml/min/1.73 sqM) Est GFR (CKD-EPI)NonAf 23 (>60 ml/min/1.73 sqM) Glucose 150 H (74-99) mg/dL Plasma Lactic Acid Roderick (0.7-2.0) mmol/L Calcium 8.5 (8.4-10.2) mg/dL Magnesium 2.7 H (1.6-2.3) mg/dL Total Bilirubin 0.4 (0.2-1.3) mg/dL AST 26 (14-36) U/L ALT 19 (4-34) U/L Alkaline Phosphatase 124 (38-126) U/L Troponin I (0.000-0.034) ng/mL Total Protein 7.9 (6.3-8.2) g/dL Albumin 4.0 (3.5-5.0) g/dL 04/25/20 04/25/20 04/25/20 Range/Units 11:15 12:06 12:08 WBC (3.8-10.6) k/uL RBC (3.80-5.40) m/uL Hgb (11.4-16.0) gm/dL Hct (34.0-46.0) % MCV (80.0-100.0) fL MCH (25.0-35.0) pg MCHC (31.0-37.0) g/dL RDW (11.5-15.5) % Plt Count (150-450) k/uL MPV Neutrophils % % Lymphocytes % % Monocytes % % Eosinophils % % Basophils % % Neutrophils # (1.3-7.7) k/uL Lymphocytes # (1.0-4.8) k/uL Monocytes # (0-1.0) k/uL Eosinophils # (0-0.7) k/uL Basophils # (0-0.2) k/uL Hypochromasia Anisocytosis Macrocytosis PT (9.0-12.0) sec INR (<1.2) APTT (22.0-30.0) sec Sodium (137-145) mmol/L Potassium 6.0 H (3.5-5.1) mmol/L Chloride (98-107) mmol/L Carbon Dioxide (22-30) mmol/L Anion Gap mmol/L BUN (7-17) mg/dL Creatinine (0.52-1.04) mg/dL Est GFR (CKD-EPI)AfAm (>60 ml/min/1.73 sqM) Est GFR (CKD-EPI)NonAf (>60 ml/min/1.73 sqM) Glucose (74-99) mg/dL Plasma Lactic Acid Roderick 1.3 (0.7-2.0) mmol/L Calcium (8.4-10.2) mg/dL Magnesium (1.6-2.3) mg/dL Total Bilirubin (0.2-1.3) mg/dL AST (14-36) U/L ALT (4-34) U/L Alkaline Phosphatase (38-126) U/L Troponin I <0.012 (0.000-0.034) ng/mL Total Protein (6.3-8.2) g/dL Albumin (3.5-5.0) g/dL - EKG Data EKG Comments: Junctional rhythm Ventricular rate 49, QRS 86, QTC 419. Disposition Clinical Impression: Fall, Head injury, Hyperkalemia, Hypermagnesemia Disposition: ADMITTED IP TO THIS [facility] Condition: Fair Instructions (If sedation given, give patient instructions): Fall Prevention for Older Adults (ED) Is patient prescribed a controlled substance at d/c from ED?: No Referrals: Greg Kline MD [Primary Care Provider] - 1-2 days Time of Disposition: 13:36
[2020-04-25] MEDS ORDERED: MECLIZINE 12.5 MG TAB PO STA (11:17)
[2020-04-25 11:25] LABS: Anisocytosis Slight; Basophils % (A) 0 %; Eosinophils # (A) 0.3 k/uL (0-0.7); Eosinophils % (A) 6 %; HCT 31.2 % (34.0-46.0); HGB 9.6 gm/dL (11.4-16.0); Hypochromasia Slight; Lymphocytes % (A) 18 %; MCH 32.2 pg (25.0-35.0); MCHC 30.8 g/dL (31.0-37.0); MCV 104.7 fL (80.0-100.0); Macrocytosis Moderate; Mean Platelet Volume 7.7; Monocytes # (A) 0.3 k/uL (0-1.0); Monocytes % (A) 6 %; Neutrophils # (A) 3.6 k/uL (1.3-7.7); Neutrophils % (A) 68 %; Platelet Count 146 k/uL (150-450); RBC 2.98 m/uL (3.80-5.40); RDW 16.3 % (11.5-15.5); WBC 5.3 k/uL (3.8-10.6)
[2020-04-25 11:33] LABS: Partial Thromboplastin Time 24.6 sec (22.0-30.0)
[2020-04-25 11:41] LABS: Calcium 8.5 mg/dL (8.4-10.2); Magnesium 2.7 mg/dL (1.6-2.3); Total Bilirubin 0.4 mg/dL (0.2-1.3); Total Protein 7.9 g/dL (6.3-8.2)
[2020-04-25 11:44] LABS: Potassium 6.2 mmol/L (3.5-5.1)
[2020-04-25] MEDS ORDERED: ONDANSETRON 4 MG/2 ML VIAL IVP STA (11:48)
--- NOTE | 2020-04-25 12:13 | CT ---
EXAMINATION TYPE: CT brain ion wo con DATE OF EXAM: 04/25/2020 COMPARISON: 03/21/2020 HISTORY: 80-year-old female Fall with posterior head injury. Patient on blood thinner. CT DLP: 1307.7 mGycm Automated exposure control for dose reduction was used. Technique: Examination of the head was done in axial plane without intravenous contrast. Coronal and sagittal reconstructions performed. CT of the cervical spine was obtained in axial plane without intravenous injection of contrast mater ial. Coronal and sagittal reformatted images were obtained from the axial views for evaluation of f ractures, spinal alignment and canal. FINDINGS: Head: There is no evidence of acute intracranial hemorrhage, acute ischemic changes, mass, mass-effect, or extra-axial fluid collection. There is no effacement of cerebral sulci or basal subarachnoid cister ns. There is no hydrocephalus. There is no midline shift. Starr-white matter distinction is preserv ed. Mild generalized age-related supratentorial volume loss. Mild to moderate patchy white matter hypoden sities in both cerebral hemispheres. There is a posterior superior right parietal scalp contusion. No underlying calvarial fracture. Trace mucosal thickening ethmoid air cells and maxillary sinuses. Mastoid air cells are well pneumati zed. Cervical spine: No craniocervical junction abnormality, predental space widening, or prevertebral soft tissue swellin g. Degenerative changes at the C1 dens articulation. Moderate distention of the degenerative change mid cervical spine particularly at C4-C6 levels. Discu ssed by complex is clear mildly narrow the spinal canal. Degenerative trace grade 1 anterolisthesis C3-C4 and C6-C7. Hypertrophic facet and uncovertebral joint arthropathy is present. Moderate right neuroforaminal sten osis and C5-C6. Mild variable neuroforaminal narrowing at additional levels. No acute fracture of the cervical spine. Some stable heterotopic ossification along the right paramed jeanne posterior midline at the C4 level. There is a small layering right pleural effusion which requires clinical correlation. Underlying emph ysematous change. Sagittal and coronal reformatted images confirm above findings. COMBINED IMPRESSION: 1. Right posterior scalp contusion. Mild age-related cerebral atrophy and patchy burden of chronic sm all vessel ischemic disease. No acute intracranial abnormality seen. 2. No acute fracture of the cervical spine. Moderate spondylotic change. Degenerative grade 1 anterol isthesis at C3-C4 and C6-C7. 3. Note a small layering right pleural effusion. Correlate as to etiology.
[2020-04-25] MEDS ORDERED: CALCIUM GLUCONATE 1 GM in SODIUM CHLORIDE 0.9% 100 ML IVPB ONE ×2 (12:52→20:40)
[2020-04-25] MEDS ORDERED: SODIUM POLYSTYRENE SULFONATE 15 GM/60 ML BOTTLE PO STA ×2 (12:53→20:38)
[2020-04-25] MEDS ORDERED: NALOXONE 0.4 MG/ML 1 ML VIAL IV PRN (13:37)
[2020-04-25] MEDS ORDERED: LORazepam 2 MG/ML INJ IV PRN (13:37)
[2020-04-25 13:41] LABS: Appearance,Urine Turbid (Clear); Bacteria,Urine Many /hpf; Bilirubin,Urine Negative (Negative); Blood,Urine Moderate (Negative); Color,Urine Yellow; Glucose,Urine (UA) Negative (Negative); Ketones,Urine Negative (Negative); Leukocyte Esterase,Urine Large (Negative); Nitrite,Urine Negative (Negative); Protein,Urine 2+ (Negative); RBC,Urine 70 /hpf (0-5); Specific Gravity,Urine 1.013 (1.001-1.035); Squamous Epithelial Cell,Urine 5 /hpf (0-4); Urobilinogen,Urine <2.0 mg/dL (<2.0); WBC,Urine >182 /hpf (0-5)
[2020-04-25] MEDS ORDERED: CEFEPIME 1 GM in SODIUM CHLORIDE 0.9% 50 ML IVPB STA (13:52)
--- NOTE | 2020-04-25 15:00 | XR ---
EXAMINATION TYPE: XR chest 2V DATE OF EXAM: 04/25/2020 COMPARISON: Prior chest 03/21/2020 HISTORY: Trauma and pain, abnormal chest x-ray TECHNIQUE: Frontal and lateral views of the chest are obtained. FINDINGS: Patient is post median sternotomy. The heart is enlarged. There is no evident pneumothorax . Persistent abnormal density at the right lung base, obscured right hemidiaphragm and blunting the r ight costophrenic angle. Aorta is dense. Interstitium mildly increased. There are overlying cardiac l shyann. There are epicardial pacing leads. There are coronary artery calcifications. IMPRESSION: Findings are similar to prior exam, correlate for pulmonary venous hypertension and inte rstitial edema, there is a right pleural effusion and associated atelectasis, pneumonia not excluded.
--- NOTE | 2020-04-25 15:34 | P.HPIM ---
History of Present Illness H&P Date: 04/25/20 Chief Complaint: Fall with head injury History of presenting illness: Patient is an 80-year-old female with a past medical history including CAD, CHF, hypertension, hyperlipidemia, atrial flutter on anticoagulation with Eliquis, COPD, Parkinson's disease, [id number] diabetes mellitus type 2, and CKD stage III. Patient presented to [facility] with a chief complaint of fall with head injury. Patient reports that she was in her kitchen walking with her walker when her knees suddenly just buckled and gave out resulting in her falling backwards hitting her head on the oven door. Patient denies having any loss of consciousness but reports she began having dizziness and lightheadedness along with nausea almost instantly after fall. Patient reports her dizziness increases significantly if she looks up or down and feels like the room is constantly spinning around her. She does report a having a headache in which she rates 6/10 at this time. She denies having any changes in her vision or hearing, denies tinnitus, denies any cervical pain or tenderness with movement, denies back pain, chest pain, shortness of breath, rib pain, abdo elvia pain, vomiting, changes in her difficulties with urinary or bowel function, hip pain, leg pain or knee pain. Patient states that her tremors have been persistently getting worse over the past couple months and this is why she believes her knees buckled resulting in the fall. She denies experiencing any of these symptoms prior to the fall, stating everything happened after she hit her head. Patient states she last took her Eliquis at 9 AM this morning ED course: Patient was seen in place evaluated in the emergency department resulting in admission to Chest x-ray revealing findings similar to prior exam to correlate for pulmonary venous hypertension and interstitial edema, there is right pleural effusion and associated atelectasis, pneumonia not excluded. CT head and cervical spine revealed a right posterior scalp contusion with mild age related cerebral atrophy and patchy burden of chronic small vessel ischemic disease. No acute intercranial abnormalities seen. No acute fracture of the cervical spine moderate spondylitic changes with degenerative grade 1 anterolisthesis at C3 through C4 and C6 through C7. Note a small layering right pleural effusion. Labs: CBC revealing thrombocytopenia with platelet count of 146 and macrocytic microchromic anemia with hemoglobin 9.6, hematocrit 31.2, MCV 104.7, MCH 32.2, MCHC 30.8, and RDW of 16.3. BMP revealing hyperkalemia with potassium of 6.2 and repeat potassium was 6.0 consistent with acute kidney injury on chronic kidney disease with BUN of 71, creatinine 1.98, and GFR of 23 with baseline creatinine of 1.5. Lactate normal findings at 1.3. Troponin negative at less than 0.012. Urinalysis: Turbid positive for protein, blood, leukocytes, 70 RBCs, greater than 182 WBCs, and urine bacteria. (Patient has a previous urine culture collected on 03/21/20 which was positive for pseudomonas aeruginosa) Medications administered in the ED include: Kayexalate, calcium gluconate, Zofran, meclizine, and cefepime. Assessment: Review of systems: Pertinent positives and negatives as discussed in HPI, a complete review of systems was performed and all other systems are negative. Physical exam: General: non toxic, no distress, appears stated age, obese Derm: warm, dry Head: Moderate sized hematoma to right parietal region of scalp. Eyes: EOMI, no lid lag, anicteric sclera Mouth: no lip lesion, mucus membranes moist Cardiovascular: S1S2 reg, no murmur, positive posterior tibial pulses bilaterally, Lungs: CTA bilaterally and slightly diminished at bases possibly secondary to body habitus, no rhonchi, no rales , no accessory muscle use Abdominal: Obese abdomen soft, nontender to palpation, no guarding, no ap preciable organomegaly Ext: no gross muscle atrophy, 1+ edema to bilateral lower extremities with ve nous discoloration, no contractures Neuro: CN II-XI grossly intact, no focal neuro deficits Psych: Alert, oriented, appropriate affect Plan of care: Acute kidney injury on stage III chronic kidney disease -BUN 71, creatinine 1.98, and GFR of 23.... Baseline creatinine 1.5. -At this time we will hold nephrotoxic medications including Lasix. -Gentle hydration with 0.9% normal saline. -Continue close monitoring with repeat a.m. labs. Hyperkalemia -Hyperkalemia with potassium of 6.2 and repeat potassium was 6.0. Patient received Kayexalate and calcium gluconate in the ED, we are awaiting repeat potassium levels and will treat further electrolyte abnormalities as needed. -Continuous telemetry monitoring. -EKG Fall with closed head injury -Neuro checks every 4 hours -Fall precautions. -CT head and cervical spine revealed a right posterior scalp contusion with mild age related cerebral atrophy and patchy burden of chronic small vessel ischemic disease. No acute intercranial abnormalities seen. No acute fracture of the c ervical spine moderate spondylitic changes with degenerative grade 1 anterolisthesis at C3 through C4 and C6 through C7. Note a small layering right pleural effusion. -We will arrange for repeat CT head without contrast to be completed tomorrow at 12 PM. Acute cystitis -Urinalysis: Turbid positive for protein, blood, leukocytes, 70 RBCs, greater than 182 WBCs, and urine bacteria. (Patient has a previous urine culture collected on 03/21/20 which was positive for pseudomonas aeruginosa) -IV antibiotics with Cefepime secondary to history of pseudomonas aeruginosa. -Urine culture, pending -Bladder scan Bradycardia -Patient has been bradycardic arrival heart rate in 50s, possibly secondary to daily metoprolol use vs other. -We will obtain an EKG secondary to patient's reports of dizziness/lightheadedness and bradycardia. -Continuous telemetry monitoring. -Hold metoprolol at this time Anemia of chronic disease -CBC revealing macrocytic microchromic anemia with hemoglobin 9.6, hematocrit 31.2, MCV 104.7, MCH 32.2, MCHC 30.8, and RDW of 16.3. -Baseline hemoglobin levels, we will continue to monitor with repeat a.m. labs. Thrombocytopenia -CBC revealing thrombocytopenia with platelet count of 146. -Possibly secondary to anticoagulant use with Eliquis twice daily. -Will repeat morning labs. Type II [id number] diabetes mellitus -Hold oral glycemic medications. Patient placed on glycemic protocol with sliding scale. -Cardiac/diabetic diet. Chronic conditions stable including: CAD, CHF, hypertension, hyperlipidemia, persistent atrial flutter, and COPD -Continue home medication management. CODE STATUS: Full code DVT prophylaxis: Eliquis Home medications reviewed and ordered. The patient does not have a DPOAE, but in the event she cannot make decisions she would like Nicolasa or Karri Swenson to make decisions for her and they can be reached at [phone] or [phone]. A total of > 50 minutes was spent in the care of this complex patient with more than 50% of the time being spent in counseling and care coordination. Past Medical History Past Medical History: COPD, Diabetes Mellitus, Hyperlipidemia, Hypertension, Myocardial Infarction (PR), Sleep Apnea/CPAP/BIPAP Additional Past Medical History / Comment(s): tremors,NO left arm blood draw or blood pressure(vessel harvested for CABG), blockages in angelica legs, Coonstipation, gout, PAD Last Myocardial Infarction Date:: 1999 History of Any Multi-Drug Resistant Organisms: None Reported Past Surgical History: Appendectomy, Coronary Bypass/CABG, Heart Catheterization, Hysterectomy, Tonsillectomy Additional Past Surgical History / Comment(s): angiogram. Right neck lymphnode removal Past Anesthesia/Blood Transfusion Reactions: No Reported Reaction Past Psychological History: No Psychological Hx Reported Additional Psychological History / Comment(s): Pt resides alone. She uses a walker to ambulate. She no longer drives, her sister in law drives. Pt has a glucometer and a nebulizer but will not use because it nauseates her. 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 Pt lives at [facility]. Smoking Status: Former smoker Past Alcohol Use History: None Reported Additional Past Alcohol Use History / Comment(s): Pt started smoking in 1952 and quit in 2004 Past Drug Use History: None Reported - Past Family History Mother Family Medical History: COPD, Myocardial Infarction (PR) Brother(s) Family Medical History: Cancer Additional Family Medical History / Comment(s): LUNG CANCER Son(s) Family Medical History: Cancer Additional Family Medical History / Comment(s): COLON CANCER Sister(s) Family Medical History: Cancer Additional Family Medical History / Comment(s): (2) SISTERS HAD BREAST CANCER. Medications and Allergies Home Medications Medication Instructions Recorded Confirmed Type Ezetimibe [Zetia] 10 mg PO DAILY 11/20/13 04/25/20 History Lovastatin [Mevacor] 10 mg PO HS 11/20/13 04/25/20 History Primidone [Mysoline] 50 mg PO DAILY 01/25/19 04/25/20 History Primidone [Mysoline] 100 mg PO HS 01/25/19 04/25/20 History Apixaban [Eliquis] 2.5 mg PO BID 02/17/20 04/25/20 History Calcium Carb-Vit D 500Mg-200Un 1 tab PO TID 02/17/20 04/25/20 History [Oscal 500+D] Cyanocobalamin [Vitamin B-12] 500 mcg PO DAILY 02/17/20 04/25/20 History Folic Acid 1 mg PO DAILY 02/17/20 04/25/20 History Metoprolol Succinate (ER) [Toprol 50 mg PO DAILY 02/17/20 04/25/20 History XL] Gabapentin [Neurontin] 100 mg PO BID #6 03/25/20 04/25/20 Rx Magnesium Oxide [Mag-Ox] 400 mg PO DAILY tab 03/25/20 04/25/20 Rx Psyllium Husk 100% [Metamucil 6 gm PO DAILY packet 03/25/20 04/25/20 Rx Packet] SILVER sulfADIAZINE Cream 1 applic TOPICAL BID #1 gram 03/25/20 04/25/20 Rx [Silvadene 1% Cream] Colchicine [Colcrys] 0.6 mg PO BID 04/25/20 04/25/20 History Furosemide [Lasix] 40 mg PO BID 04/25/20 04/25/20 History sitaGLIPtin [Januvia] 50 mg PO DAILY 04/25/20 04/25/20 History Allergies Allergy/AdvReac Type Severity Reaction Status Date / Time albuterol [From DuoNeb] AdvReac Nausea Verified 04/25/20 12:37 cortisone AdvReac PAIN Verified 04/25/20 12:37 hydrocodone AdvReac Nausea Verified 04/25/20 12:37 ipratropium [From DuoNeb] AdvReac Nausea Verified 04/25/20 12:37 procaine HCl [From Novocain] AdvReac pain Verified 04/25/20 12:37 allergy medicines AdvReac "dries me Uncoded 02/17/20 10:00 out, bloody noses,generalized pain" Physical Exam Vitals: Vital Signs Temp Pulse Resp BP Pulse Ox 04/25/20 14:28 97.7 F 52 L 18 165/66 100 04/25/20 12:06 97.6 F 52 L 16 148/57 99 04/25/20 11:22 97.6 F 53 L 16 148/57 98 Intake and Output 04/24/20 04/25/20 04/25/20 22:59 06:59 14:59 Other: Weight 89.811 kg Results CBC & Chem 7: 04/25/20 11:15 04/25/20 12:06 Labs: Abnormal Lab Results - Last 24 Hours (Table) 04/25/20 04/25/20 04/25/20 Range/Units 11:15 11:15 12:06 RBC 2.98 L (3.80-5.40) m/uL Hgb 9.6 L (11.4-16.0) gm/dL Hct 31.2 L (34.0-46.0) % MCV 104.7 H (80.0-100.0) fL MCHC 30.8 L (31.0-37.0) g/dL RDW 16.3 H (11.5-15.5) % Plt Count 146 L (150-450) k/uL Potassium 6.2 H* 6.0 H (3.5-5.1) mmol/L BUN 71 H (7-17) mg/dL Creatinine 1.98 H (0.52-1.04) mg/dL Glucose 150 H (74-99) mg/dL Magnesium 2.7 H (1.6-2.3) mg/dL Urine Appearance (Clear) Urine Protein (Negative) Urine Blood (Negative) Ur Leukocyte Esterase (Negative) Urine RBC (0-5) /hpf Urine WBC (0-5) /hpf Urine WBC Clumps (None) /hpf Ur Squamous Epith Cells (0-4) /hpf Urine Bacteria (None) /hpf 04/25/20 Range/Units 13:26 RBC (3.80-5.40) m/uL Hgb (11.4-16.0) gm/dL Hct (34.0-46.0) % MCV (80.0-100.0) fL MCHC (31.0-37.0) g/dL RDW (11.5-15.5) % Plt Count (150-450) k/uL Potassium (3.5-5.1) mmol/L BUN (7-17) mg/dL Creatinine (0.52-1.04) mg/dL Glucose (74-99) mg/dL Magnesium (1.6-2.3) mg/dL Urine Appearance Turbid H (Clear) Urine Protein 2+ H (Negative) Urine Blood Moderate H (Negative) Ur Leukocyte Esterase Large H (Negative) Urine RBC 70 H (0-5) /hpf Urine WBC >182 H (0-5) /hpf Urine WBC Clumps Many H (None) /hpf Ur Squamous Epith Cells 5 H (0-4) /hpf Urine Bacteria Many H (None) /hpf
[2020-04-25] MEDS: SODIUM CHLORIDE 0.9% 1,000 ML IV SCH (17:13)
[2020-04-25 18:10] LABS: Glucose,Whole Blood 185 mg/dL (75-99)
[2020-04-25] MEDS: INSULIN ASPART (NovoLOG) 100 UNIT/ML VIAL SQ SCH ×2 (18:15→20:49)
[2020-04-25 20:40] LABS: Glucose,Whole Blood 184 mg/dL (75-99)
[2020-04-25] MEDS: GABAPENTIN 100 MG CAP PO SCH (20:40)
[2020-04-25] MEDS: APIXABAN 2.5 MG TABLET PO SCH (20:40)
[2020-04-25] MEDS: ATORVASTATIN 10 MG TAB PO SCH (20:40)
[2020-04-25] MEDS: CEFEPIME 2 GM in SODIUM CHLORIDE 0.9% 100 ML IVPB SCH (20:43)
[2020-04-25 21:53] LABS: Potassium 6.6 mmol/L (3.5-5.1)
[2020-04-25] MEDS ORDERED: DEXTROSE 50% SYRINGE 50 ML IVP STA (22:18)
[2020-04-25] MEDS ORDERED: INSULIN REGULAR 100 UNIT/ML VIAL IV ONE (22:18)
[2020-04-25] MEDS ORDERED: SODIUM POLYSTYRENE SULFONATE 30 GM/120 ML BOTTLE RECTAL STA (22:18)
[2020-04-26] MEDS: CEFEPIME 2 GM in SODIUM CHLORIDE 0.9% 100 ML IVPB SCH (06:13)
[2020-04-26 06:15] LABS: Glucose,Whole Blood 94 mg/dL (75-99)
[2020-04-26] MEDS: SODIUM CHLORIDE 0.9% 1,000 ML IV SCH (06:16)
[2020-04-26] MEDS: INSULIN ASPART (NovoLOG) 100 UNIT/ML VIAL SQ SCH ×4 (06:17→21:06)
[2020-04-26] MEDS: GABAPENTIN 100 MG CAP PO SCH ×2 (08:18→20:03)
[2020-04-26] MEDS: APIXABAN 2.5 MG TABLET PO SCH ×2 (08:18→20:03)
[2020-04-26] MEDS: FUROSEMIDE 10 MG/ML 4 ML VIAL IV SCH ×2 (08:18→20:03)
[2020-04-26] MEDS: EZETIMIBE 10 MG TAB PO SCH (08:18)
[2020-04-26 08:56] LABS: Calcium 8.7 mg/dL (8.4-10.2); Potassium 5.1 mmol/L (3.5-5.1)
[2020-04-26 09:20] LABS: Basophils % (A) 1 %; Eosinophils # (A) 0.3 k/uL (0-0.7); Eosinophils % (A) 5 %; HCT 29.4 % (34.0-46.0); HGB 9.3 gm/dL (11.4-16.0); Hypochromasia Moderate; Lymphocytes % (A) 20 %; MCHC 31.5 g/dL (31.0-37.0); MCV 104.7 fL (80.0-100.0); Macrocytosis Moderate; Mean Platelet Volume 7.9; Monocytes # (A) 0.4 k/uL (0-1.0); Monocytes % (A) 8 %; Neutrophils # (A) 3.2 k/uL (1.3-7.7); Neutrophils % (A) 64 %; Platelet Count 123 k/uL (150-450); RBC 2.81 m/uL (3.80-5.40); RDW 15.8 % (11.5-15.5)
--- NOTE | 2020-04-26 10:06 | P.PN ---
Subjective Progress Note Date: 04/26/20 Patient is doing well today. She denies any complaints this morning. No acute events overnight reported by nursing staff. Objective - Vital Signs Vital signs: Vital Signs Temp 97.9 F 04/26/20 04:00 Pulse 47 L 04/26/20 04:00 Resp 18 04/26/20 04:00 BP 106/54 04/26/20 04:00 Pulse Ox 100 04/26/20 04:00 Intake & Output 04/25/20 04/26/20 04/26/20 18:59 06:59 18:59 Intake Total 120 650 125 Balance 120 650 125 Weight 89.811 kg 77 kg Intake: Oral 120 650 125 Other: Voiding Method Bedside Commode Bedpan # Voids 1 # Bowel Movements 1 - Exam General: The patient is awake and alert, in no distress Eye: there is normal conjunctiva bilaterally. Neck: The neck is supple, there is no JVD. Cardiovascular: Normal S1-S2, no S3-S4, no murmurs. Respiratory: Lungs clear to auscultation bilaterally Gastrointestinal: Abdomen is soft, nontender Musculoskeletal: There is +1 pedal edema. Neurological:. Speech is normal. Skin: Skin is warm and dry - Labs CBC & Chem 7: 04/26/20 08:27 04/26/20 08:27 Labs: Abnormal Lab Results - Last 24 Hours (Table) 04/25/20 04/25/20 04/25/20 Range/Units 11:15 11:15 12:06 RBC 2.98 L (3.80-5.40) m/uL Hgb 9.6 L (11.4-16.0) gm/dL Hct 31.2 L (34.0-46.0) % MCV 104.7 H (80.0-100.0) fL MCHC 30.8 L (31.0-37.0) g/dL RDW 16.3 H (11.5-15.5) % Plt Count 146 L (150-450) k/uL Potassium 6.2 H* 6.0 H (3.5-5.1) mmol/L Carbon Dioxide (22-30) mmol/L BUN 71 H (7-17) mg/dL Creatinine 1.98 H (0.52-1.04) mg/dL Glucose 150 H (74-99) mg/dL POC Glucose (mg/dL) (75-99) mg/dL Magnesium 2.7 H (1.6-2.3) mg/dL Urine Appearance (Clear) Urine Protein (Negative) Urine Blood (Negative) Ur Leukocyte Esterase (Negative) Urine RBC (0-5) /hpf Urine WBC (0-5) /hpf Urine WBC Clumps (None) /hpf Ur Squamous Epith Cells (0-4) /hpf Urine Bacteria (None) /hpf 04/25/20 04/25/20 04/25/20 Range/Units 13:26 18:09 19:35 RBC (3.80-5.40) m/uL Hgb (11.4-16.0) gm/dL Hct (34.0-46.0) % MCV (80.0-100.0) fL MCHC (31.0-37.0) g/dL RDW (11.5-15.5) % Plt Count (150-450) k/uL Potassium 6.6 H* (3.5-5.1) mmol/L Carbon Dioxide (22-30) mmol/L BUN (7-17) mg/dL Creatinine (0.52-1.04) mg/dL Glucose (74-99) mg/dL POC Glucose (mg/dL) 185 H (75-99) mg/dL Magnesium (1.6-2.3) mg/dL Urine Appearance Turbid H (Clear) Urine Protein 2+ H (Negative) Urine Blood Moderate H (Negative) Ur Leukocyte Esterase Large H (Negative) Urine RBC 70 H (0-5) /hpf Urine WBC >182 H (0-5) /hpf Urine WBC Clumps Many H (None) /hpf Ur Squamous Epith Cells 5 H (0-4) /hpf Urine Bacteria Many H (None) /hpf 04/25/20 04/25/20 04/26/20 Range/Units 19:35 20:39 02:23 RBC (3.80-5.40) m/uL Hgb (11.4-16.0) gm/dL Hct (34.0-46.0) % MCV (80.0-100.0) fL MCHC (31.0-37.0) g/dL RDW (11.5-15.5) % Plt Count (150-450) k/uL Potassium 6.6 H* 5.8 H (3.5-5.1) mmol/L Carbon Dioxide (22-30) mmol/L BUN 71 H (7-17) mg/dL Creatinine 1.85 H (0.52-1.04) mg/dL Glucose 213 H (74-99) mg/dL POC Glucose (mg/dL) 184 H (75-99) mg/dL Magnesium (1.6-2.3) mg/dL Urine Appearance (Clear) Urine Protein (Negative) Urine Blood (Negative) Ur Leukocyte Esterase (Negative) Urine RBC (0-5) /hpf Urine WBC (0-5) /hpf Urine WBC Clumps (None) /hpf Ur Squamous Epith Cells (0-4) /hpf Urine Bacteria (None) /hpf 04/26/20 04/26/20 Range/Units 08:27 08:27 RBC 2.81 L (3.80-5.40) m/uL Hgb 9.3 L (11.4-16.0) gm/dL Hct 29.4 L (34.0-46.0) % MCV 104.7 H (80.0-100.0) fL MCHC (31.0-37.0) g/dL RDW 15.8 H (11.5-15.5) % Plt Count 123 L (150-450) k/uL Potassium (3.5-5.1) mmol/L Carbon Dioxide 32 H (22-30) mmol/L BUN 67 H (7-17) mg/dL Creatinine 1.79 H (0.52-1.04) mg/dL Glucose 126 H (74-99) mg/dL POC Glucose (mg/dL) (75-99) mg/dL Magnesium (1.6-2.3) mg/dL Urine Appearance (Clear) Urine Protein (Negative) Urine Blood (Negative) Ur Leukocyte Esterase (Negative) Urine RBC (0-5) /hpf Urine WBC (0-5) /hpf Urine WBC Clumps (None) /hpf Ur Squamous Epith Cells (0-4) /hpf Urine Bacteria (None) /hpf Microbiology - Last 24 Hours (Table) 04/25/20 13:26 Urine Culture - Preliminary Urine,Voided Assessment and Plan Assessment: Acute kidney injury with hyperkalemia on stage III chronic kidney disease -Hyperkalemia treated medically with multiple doses of Kayexalate, calcium gluconate, and IV insulin -Nephrology consulted for further evaluation -Continue close monitoring with repeat a.m. labs. Urinary tract infection -IV antibiotics with Cefepime secondary to history of pseudomonas aeruginosa. -Urine culture, pending -Bladder scan Fall with closed head injury -Neuro checks unremarkable -CT head and cervical spine revealed a right posterior scalp contusion with mild age related cerebral atrophy and patchy burden of chronic small vessel ischemic disease. No acute intercranial abnormalities seen. No acute fracture of the cervical spine - -repeat CT head today at noon as patient is on anticoagulation Bradycardia -Metoprolol discontinue -TSH within normal range Anemia of chronic disease -Stable Type II [id number] diabetes mellitus -Hold oral glycemic medications. Patient placed on glycemic protocol with sliding scale. -Cardiac/diabetic diet. Chronic conditions stable including: CAD, CHF, hypertension, hyperlipidemia, persistent atrial flutter, and COPD -Continue home medication management. CODE STATUS: Full code DVT prophylaxis: Eliquis Home medications reviewed and ordered. The patient does not have a DPOAE, but in the event she cannot make decisions she would like Nicolasa or Karri Swenson to make decisions for her and they can be reached at [phone] or [phone].
--- NOTE | 2020-04-26 10:15 | P.NPCON ---
History of Present Illness - Reason for Consult acute renal failure, chronic renal failure, hyperkalemia - History of Present Illness Reason for consultation: Acute kidney injury on chronic kidney disease and hyperkalemia History of present illness: Patient is a 80-year-old female seen in renal consultation for acute kidney injury on chronic kidney disease. Patient has chronic kidney disease stage IIIA with baseline creatinine in the range of 1.2-1.5 secondary to diabetic kidney disease and nephrosclerosis. Creatinine was 1.98 on admission and is 1.79 today. She is currently receiving IV fluids as well as IV Lasix. Chest x-ray suggestive of vascular congestion. Patient presented to the hospital after she sustained a fall. Patient states she suddenly fell and hit her head on the kitchen counter. She is noted to have a contusion but no acute fracture bleeding. She is awake and alert. Denies chest pain or shortness of breath. She is on home oxygen 2 L. Potassium was elevated at 6.2 on admission and got as high as 6.6. It is down to 5.1 this morning. She has an external catheter a nd is nonoliguric. She denies use of nonsteroidals. Blood sugars are fairly stable. No vomiting or diarrhea. Blood pressure is stable. No fever or chills. Vital signs are stable. General: The patient appeared well nourished and normally developed. HEENT: Head exam is unremarkable. Neck is without jugular venous distension. LUNGS: Breath sounds decreased. HEART: Rate and Rhythm are regular. ABDOMEN: Soft, nontender. EXTREMITITES: Chronic changes noted. Trace edema. Past Medical History Past Medical History: COPD, Diabetes Mellitus, Hyperlipidemia, Hypertension, Myocardial Infarction ([place]), Sleep Apnea/CPAP/BIPAP Additional Past Medical History / Comment(s): tremors,NO left arm blood draw or blood pressure(vessel harvested for CABG), blockages in angelica legs, Coonstipation, gout, PAD Last Myocardial Infarction Date:: 1999 History of Any Multi-Drug Resistant Organisms: None Reported Past Surgical History: Appendectomy, Coronary Bypass/CABG, Heart Catheterization, Hysterectomy, Tonsillectomy Additional Past Surgical History / Comment(s): angiogram. Right neck lymphnode removal Past Anesthesia/Blood Transfusion Reactions: No Reported Reaction Past Psychological History: No Psychological Hx Reported Additional Psychological History / Comment(s): Pt resides alone. She uses a walker to ambulate. She no longer drives, her sister in law drives. Pt has a glucometer and a nebulizer but will not use because it nauseates her. 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 Pt lives at [facility]. Smoking Status: Former smoker Past Alcohol Use History: None Reported Additional Past Alcohol Use History / Comment(s): Pt started smoking in 2 and quit in 2004 Past Drug Use History: None Reported - Past Family History Mother Family Medical History: COPD, Myocardial Infarction ([place]) Brother(s) Family Medical History: Cancer Additional Family Medical History / Comment(s): LUNG CANCER Son(s) Family Medical History: Cancer Additional Family Medical History / Comment(s): COLON CANCER Sister(s) Family Medical History: Cancer Additional Family Medical History / Comment(s): (2) SISTERS HAD BREAST CANCER. Medications and Allergies Home Medications Medication Instructions Recorded Confirmed Type Ezetimibe [Zetia] 10 mg PO DAILY 11/20/13 04/25/20 History Lovastatin [Mevacor] 10 mg PO HS 11/20/13 04/25/20 History Primidone [Mysoline] 50 mg PO DAILY 01/25/19 04/25/20 History Primidone [Mysoline] 100 mg PO HS 01/25/19 04/25/20 History Apixaban [Eliquis] 2.5 mg PO BID 02/17/20 04/25/20 History Calcium Carb-Vit D 500Mg-200Un 1 tab PO TID 02/17/20 04/25/20 History [Oscal 500+D] Cyanocobalamin [Vitamin B-12] 500 mcg PO DAILY 02/17/20 04/25/20 History Folic Acid 1 mg PO DAILY 02/17/20 04/25/20 History Metoprolol Succinate (ER) [Toprol 50 mg PO DAILY 02/17/20 04/25/20 History XL] Gabapentin [Neurontin] 100 mg PO BID #6 03/25/20 04/25/20 Rx Magnesium Oxide [Mag-Ox] 400 mg PO DAILY tab 03/25/20 04/25/20 Rx Psyllium Husk 100% [Metamucil 6 gm PO DAILY packet 03/25/20 04/25/20 Rx Packet] SILVER sulfADIAZINE Cream 1 applic TOPICAL BID #1 gram 03/25/20 04/25/20 Rx [Silvadene 1% Cream] Colchicine [Colcrys] 0.6 mg PO BID 04/25/20 04/25/20 History Furosemide [Lasix] 40 mg PO BID 04/25/20 04/25/20 History sitaGLIPtin [Januvia] 50 mg PO DAILY 04/25/20 04/25/20 History Allergies Allergy/AdvReac Type Severity Reaction Status Date / Time albuterol [From DuoNeb] AdvReac Nausea Verified 04/25/20 12:37 cortisone AdvReac PAIN Verified 04/25/20 12:37 hydrocodone AdvReac Nausea Verified 04/25/20 12:37 ipratropium [From DuoNeb] AdvReac Nausea Verified 04/25/20 12:37 procaine HCl [From Novocain] AdvReac pain Verified 04/25/20 12:37 allergy medicines AdvReac "dries me Uncoded 02/17/20 10:00 out, bloody noses,generalized pain" Physical Exam Vitals: Vital Signs Temp Pulse Pulse Resp BP BP Pulse Ox 04/26/20 04:00 97.9 F 47 L 18 106/54 100 04/26/20 00:00 97.9 F 68 18 131/65 100 04/25/20 20:00 97.6 F 50 L 18 155/87 100 04/25/20 19:07 97.6 F 49 L 18 140/68 99 04/25/20 17:17 97.6 F 52 L 18 147/65 98 04/25/20 14:28 97.7 F 52 L 18 165/66 100 04/25/20 12:06 97.6 F 52 L 16 148/57 99 04/25/20 11:22 97.6 F 53 L 16 148/57 98 Intake and Output 04/25/20 04/26/20 04/26/20 22:59 06:59 14:59 Intake Total 120 650 125 Balance 120 650 125 Intake: Oral 120 650 125 Other: Voiding Method Bedside Commode Bedside Commode Bedpan Bedpan # Voids 1 # Bowel Movements 1 Weight 89.811 kg 77 kg Results - Lab Results Most recent lab results Calcium 8.7 mg/dL (8.4-10.2) 04/26/20 08:27 Magnesium 2.7 mg/dL (1.6-2.3) H 04/25/20 11:15 04/26/20 08:27 04/26/20 08:27 Assessment and Plan Plan: Assessment: 1. Acute kidney injury secondary to ATN secondary to cardiorenal syndrome. Also concern for progression of underlying chronic kidney disease. Creatinine 1.98 on admission is 1.79 today. 2. Hyperkalemia secondary to acute kidney injury. Blood sugar is not too elevated. No evidence of metabolic acidosis. She is not on any medications that would raise the potassium. Improved with medical management. 3. Pyuria maintained on antibiotics. Urine culture pending. 4. Chronic kidney disease stage III with baseline creatinine 1.2-1.5 secondary to diabetic kidney disease. 5. Acute on chronic systolic CHF with ejection fraction of 45-50% with severe tricuspid regurgitation and pulmonary hypertension. 6. Volume overload. 7. Status post fall. 8. Anemia of chronic kidney disease. Rule out iron deficiency. Plan: Hep-Lock IV fluids. Maintain IV Lasix 40 mg twice daily. Check renal ultrasound. Check bladder scan to make sure no urinary retention. Renal diet. Avoid nephrotoxins. Continue to monitor renal function and urine output. Thank you for the consultation. I will continue to follow the patient with you during her hospital stay.
[2020-04-26 12:01] LABS: Glucose,Whole Blood 168 mg/dL (75-99)
--- NOTE | 2020-04-26 12:05 | US ---
EXAMINATION TYPE: US kidneys/renal and bladder DATE OF EXAM: 04/26/2020 COMPARISON: NONE CLINICAL HISTORY: ashok. EXAM MEASUREMENTS: Right Kidney: 9.1 x 4.6 x 3.4 cm Left Kidney: 9.1 x 4.1 x 4.0 cm Technically difficult limited study. Morbidly obese patient. Right Kidney: No hydronephrosis or masses seen, see limitations above Left Kidney: No hydronephrosis or masses seen, see limitations above Bladder: not visualized Somewhat limited exam, cortical medullary differentiation is maintained. IMPRESSION: No evident hydronephrosis.
--- NOTE | 2020-04-26 12:37 | CT ---
EXAMINATION TYPE: CT brain wo con DATE OF EXAM: 04/26/2020 COMPARISON: CT brain 04/25/2020 HISTORY: 24 hour follow up post fall abnormal head CT, history of fall in blood thinners CT DLP: 997.7 mGycm Automated exposure control for dose reduction was used. Imaging through the brain FINDINGS: There is no interval change. Periventricular white matter shows patchy low attenuation. There is alonzo ical atrophy. Cerebral vascular calcifications are present. There is a cephalohematoma over the poste rior parietal calvarium as on prior. Minimal inflammatory change in the right maxillary sinus. Calvar ium is intact. IMPRESSION: NO ACUTE ABNORMALITY.
[2020-04-26 17:04] LABS: Glucose,Whole Blood 139 mg/dL (75-99)
[2020-04-26 17:08] LABS: Ferritin 41.9 ng/mL (10.0-291.0)
[2020-04-26] MEDS: CEFEPIME 1 GM in SODIUM CHLORIDE 0.9% 50 ML IVPB SCH (17:13)
[2020-04-26 17:35] LABS: % Iron Saturation 0.31 (12.00-45.00); Iron <2 ug/dL (50-170); Total Iron Binding Capacity 323 ug/dL (228-460)
[2020-04-26] MEDS: ATORVASTATIN 10 MG TAB PO SCH (20:03)
[2020-04-26 20:41] LABS: Glucose,Whole Blood 111 mg/dL (75-99)
[2020-04-27 06:06] LABS: Glucose,Whole Blood 125 mg/dL (75-99)
[2020-04-27] MEDS: INSULIN ASPART (NovoLOG) 100 UNIT/ML VIAL SQ SCH ×4 (06:14→20:30)
[2020-04-27] MEDS: CEFEPIME 1 GM in SODIUM CHLORIDE 0.9% 50 ML IVPB SCH ×2 (06:17→17:22)
--- NOTE | 2020-04-27 09:23 | P.PN ---
Subjective Patient is seen in follow-up for acute kidney injury on chronic kidney disease. Creatinine 1.79 as of yesterday. Maintain on IV Lasix. Has a Cuevas catheter. Urine output 3.6 L in the last 24 hours. Currently on 2 L nasal cannula. No chest pain or shortness of breath. Vital signs are stable. General: The patient appeared well nourished and normally developed. HEENT: Head exam is unremarkable. Neck is without jugular venous distension. LUNGS: Breath sounds decreased. HEART: Rate and Rhythm are regular. ABDOMEN: Soft, nontender. EXTREMITITES: Trace edema. Chronic changes noted. Objective - Vital Signs Vital signs: Vital Signs Temp 98 F 04/27/20 04:00 Pulse 65 04/27/20 04:00 Resp 18 04/27/20 04:00 BP 118/62 04/27/20 04:00 Pulse Ox 97 04/27/20 04:00 Intake & Output 04/26/20 04/27/20 04/27/20 18:59 06:59 18:59 Intake Total 250 475 236 Output Total 2049 1600 Balance -1800 -1125 236 Weight 82 kg Intake: Oral 250 475 236 Output: Urine 2049 1600 Straight 900 Other: Voiding Method Bedside Commode Indwelling Catheter Bedpan # Voids 1 - Labs CBC & Chem 7: 04/26/20 08:27 04/26/20 08:27 Labs: Abnormal Lab Results - Last 24 Hours (Table) 04/26/20 04/26/20 04/26/20 Range/Units 07:30 08:27 11:53 RBC 2.81 L (3.80-5.40) m/uL Hgb 9.3 L (11.4-16.0) gm/dL Hct 29.4 L (34.0-46.0) % MCV 104.7 H (80.0-100.0) fL RDW 15.8 H (11.5-15.5) % Plt Count 123 L (150-450) k/uL POC Glucose (mg/dL) 168 H (75-99) mg/dL Iron <2 L (50-170) ug/dL % Saturation 0.31 L (12.00-45.00) 04/26/20 04/26/20 04/27/20 Range/Units 16:53 20:40 06:04 RBC (3.80-5.40) m/uL Hgb (11.4-16.0) gm/dL Hct (34.0-46.0) % MCV (80.0-100.0) fL RDW (11.5-15.5) % Plt Count (150-450) k/uL POC Glucose (mg/dL) 139 H 111 H 125 H (75-99) mg/dL Iron (50-170) ug/dL % Saturation (12.00-45.00) Microbiology - Last 24 Hours (Table) 04/25/20 13:26 Urine Culture - Preliminary Urine,Voided Gram Neg Bacilli Gram Neg Bacilli#2 Assessment and Plan Plan: Assessment: 1. Acute kidney injury secondary to ATN secondary to cardiorenal syndrome. Also concern for progression of underlying chronic kidney disease. Creatinine 1.98 on admission is 1.79 as of yesterday. 2. Hyperkalemia secondary to acute kidney injury. Blood sugar is not too elevated. No evidence of metabolic acidosis. She is not on any medications that would raise the potassium. Improved with medical management. 3. UTI with urine culture positive for gram-negative bacilli maintained on antibiotics. 4. Chronic kidney disease stage III with baseline creatinine 1.2-1.5 secondary to diabetic kidney disease. 5. Acute on chronic systolic CHF with ejection fraction of 45-50% with severe tricuspid regurgitation and pulmonary hypertension. 6. Volume overload. Improving with diuresis. 7. Status post fall. 8. Anemia of chronic kidney disease. Severe iron deficiency noted. Plan: I will change Lasix to 40 mg orally twice daily. IV iron 3 doses. First dose today. Renal diet. Avoid nephrotoxins. Continue to monitor renal function and urine output. Morning labs pending.
--- NOTE | 2020-04-27 09:58 | P.PN ---
Subjective Progress Note Date: 04/27/20 Patient is awake and alert today. She is frustrated with the diet restrictions that she is on during this hospital stay. She is upset that she is unable to order vaughan or ham. No other complaints. Objective - Vital Signs Vital signs: Vital Signs Temp 98 F 04/27/20 04:00 Pulse 65 04/27/20 04:00 Resp 18 04/27/20 04:00 BP 118/62 04/27/20 04:00 Pulse Ox 97 04/27/20 04:00 Intake & Output 04/26/20 04/27/20 04/27/20 18:59 06:59 18:59 Intake Total 250 475 236 Output Total 2049 1600 Balance -1800 -1125 236 Weight 82 kg Intake: Oral 250 475 236 Output: Urine 2049 1600 Straight 900 Other: Voiding Method Bedside Commode Indwelling Catheter Bedpan # Voids 1 - Exam General: The patient is awake and alert, in no distress Eye: there is normal conjunctiva bilaterally. Neck: The neck is supple, there is no JVD. Cardiovascular: Normal S1-S2, no S3-S4, no murmurs. Respiratory: Lungs clear to auscultation bilaterally Gastrointestinal: Abdomen is soft, nontender Musculoskeletal: There is +1 pedal edema. Neurological:. Speech is normal. Skin: Skin is warm and dry - Labs CBC & Chem 7: 04/26/20 08:27 04/26/20 08:27 Labs: Abnormal Lab Results - Last 24 Hours (Table) 04/26/20 04/26/20 04/26/20 Range/Units 07:30 11:53 16:53 POC Glucose (mg/dL) 168 H 139 H (75-99) mg/dL Iron <2 L (50-170) ug/dL % Saturation 0.31 L (12.00-45.00) 04/26/20 04/27/20 Range/Units 20:40 06:04 POC Glucose (mg/dL) 111 H 125 H (75-99) mg/dL Iron (50-170) ug/dL % Saturation (12.00-45.00) Microbiology - Last 24 Hours (Table) 04/25/20 13:26 Urine Culture - Preliminary Urine,Voided Gram Neg Bacilli Gram Neg Bacilli#2 Assessment and Plan Assessment: Acute kidney injury with hyperkalemia on stage III chronic kidney disease Obstructive uropathy with 400 mL of urine postvoid residual -Status post Cuevas catheter insertion. We will rule out for bladder decompression for 2-3 days. Voiding trial on Tuesday or Tuesday. -Kidney ultrasound showed no evidence of hydronephrosis -Hyperkalemia treated medically with multiple doses of Kayexalate, calcium gluconate, and IV insulin -Nephrology consulted for further evaluation, appreciate recommendation -Continue close monitoring with repeat a.m. labs. Urinary tract infection -IV antibiotics with Cefepime secondary to history of pseudomonas aeruginosa. -Urine culture, pending Fall with closed head injury -Neuro checks unremarkable -CT head and cervical spine revealed a right posterior scalp contusion with mild age related cerebral atrophy and patchy burden of chronic small vessel ischemic disease. No acute intercranial abnormalities seen. No acute fracture of the cervical spine - -repeat CT head 24 hours later (per trauma protocol for anticoagulated patient) negative for acute findings Bradycardia -Metoprolol discontinued, heart rate improved currently in the low 60s -TSH within normal range Anemia of chronic disease -Stable Type II [id number] diabetes mellitus -Hold oral glycemic medications. Patient placed on glycemic protocol with sliding scale. -Cardiac/diabetic diet. Chronic conditions stable including: CAD, CHF, hypertension, hyperlipidemia, persistent atrial flutter, and COPD -Continue home medication management. CODE STATUS: Full code DVT prophylaxis: Eliquis Home medications reviewed and ordered. The patient does not have a DPOAE, but in the event she cannot make decisions she would like Nicolasa or Karri Swenson to make decisions for her and they can be reached at [phone] or [phone].
[2020-04-27 09:59] LABS: Calcium 8.3 mg/dL (8.4-10.2); Magnesium 2.2 mg/dL (1.6-2.3); Potassium 4.3 mmol/L (3.5-5.1)
[2020-04-27] MEDS: EZETIMIBE 10 MG TAB PO SCH (10:04)
[2020-04-27] MEDS: GABAPENTIN 100 MG CAP PO SCH ×2 (10:04→19:46)
[2020-04-27] MEDS: APIXABAN 2.5 MG TABLET PO SCH ×2 (10:04→19:46)
[2020-04-27 10:05] LABS: Basophils % (A) 1 %; Eosinophils # (A) 0.3 k/uL (0-0.7); Eosinophils % (A) 6 %; HCT 29.1 % (34.0-46.0); HGB 9.3 gm/dL (11.4-16.0); Hypochromasia Marked; Lymphocytes # (A) 0.8 k/uL (1.0-4.8); Lymphocytes % (A) 18 %; MCH 33.8 pg (25.0-35.0); MCV 105.7 fL (80.0-100.0); Macrocytosis Moderate; Mean Platelet Volume 7.9; Monocytes # (A) 0.3 k/uL (0-1.0); Monocytes % (A) 7 %; Neutrophils # (A) 3.1 k/uL (1.3-7.7); Neutrophils % (A) 67 %; Platelet Count 125 k/uL (150-450); RBC 2.76 m/uL (3.80-5.40); RDW 15.5 % (11.5-15.5); WBC 4.6 k/uL (3.8-10.6)
[2020-04-27] MEDS: FUROSEMIDE 10 MG/ML 4 ML VIAL IV SCH (10:07)
[2020-04-27] MEDS: SODIUM FERRIC GLUCONAT-SUCROSE 125 MG in SODIUM CHLORIDE 0.9% 100 ML IVPB SCH (10:49)
[2020-04-27] MEDS: ACETAMINOPHEN TAB 325 MG TAB PO PRN ×2 (11:20→19:46)
[2020-04-27 11:50] LABS: Glucose,Whole Blood 163 mg/dL (75-99)
[2020-04-27] MEDS: FUROSEMIDE 40 MG TAB PO SCH (16:32)
[2020-04-27] MEDS: ONDANSETRON 4 MG/2 ML VIAL IVP PRN (16:32)
[2020-04-27 16:53] LABS: Glucose,Whole Blood 171 mg/dL (75-99)
[2020-04-27] MEDS: ATORVASTATIN 10 MG TAB PO SCH (19:46)
[2020-04-27 20:21] LABS: Glucose,Whole Blood 240 mg/dL (75-99)
[2020-04-28] MEDS: ACETAMINOPHEN TAB 325 MG TAB PO PRN ×3 (02:30→20:18)
[2020-04-28 06:34] LABS: Glucose,Whole Blood 135 mg/dL (75-99)
[2020-04-28] MEDS: CEFEPIME 1 GM in SODIUM CHLORIDE 0.9% 50 ML IVPB SCH ×2 (07:02→17:12)
[2020-04-28] MEDS: INSULIN ASPART (NovoLOG) 100 UNIT/ML VIAL SQ SCH ×4 (07:02→21:34)
[2020-04-28 07:30] LABS: Basophils % (A) 0 %; Eosinophils # (A) 0.3 k/uL (0-0.7); Eosinophils % (A) 7 %; HGB 9.3 gm/dL (11.4-16.0); Hypochromasia Moderate; Lymphocytes # (A) 1.1 k/uL (1.0-4.8); Lymphocytes % (A) 22 %; MCH 33.4 pg (25.0-35.0); MCV 104.2 fL (80.0-100.0); Macrocytosis Moderate; Mean Platelet Volume 8.2; Monocytes # (A) 0.4 k/uL (0-1.0); Monocytes % (A) 8 %; Neutrophils % (A) 60 %; Platelet Count 128 k/uL (150-450); RBC 2.78 m/uL (3.80-5.40); RDW 15.6 % (11.5-15.5); WBC 5.1 k/uL (3.8-10.6)
[2020-04-28 07:48] LABS: Magnesium 2.1 mg/dL (1.6-2.3); Potassium 4.9 mmol/L (3.5-5.1)
[2020-04-28] MEDS: GABAPENTIN 100 MG CAP PO SCH ×2 (08:11→20:18)
[2020-04-28] MEDS: APIXABAN 2.5 MG TABLET PO SCH ×2 (08:12→20:18)
[2020-04-28] MEDS: FUROSEMIDE 40 MG TAB PO SCH ×2 (08:12→15:57)
[2020-04-28] MEDS: EZETIMIBE 10 MG TAB PO SCH (08:12)
--- NOTE | 2020-04-28 09:05 | P.PN ---
Subjective Patient is seen in follow-up for acute kidney injury on chronic kidney disease. Renal function improving. Maintained on oral Lasix. Has a Cuevas catheter. Nonoliguric. Currently on 2 L nasal cannula. No chest pain or shortness of breath. Vital signs are stable. General: The patient appeared well nourished and normally developed. HEENT: Head exam is unremarkable. Neck is without jugular venous distension. LUNGS: Breath sounds decreased. HEART: Rate and Rhythm are regular. ABDOMEN: Soft, nontender. EXTREMITITES: Trace edema. Chronic changes noted. Objective - Vital Signs Vital signs: Vital Signs Temp 97.8 F 04/28/20 08:00 Pulse 73 04/28/20 08:00 Resp 18 04/28/20 08:00 BP 170/74 04/28/20 08:00 Pulse Ox 96 04/28/20 08:00 Intake & Output 04/27/20 04/28/20 04/28/20 18:59 06:59 18:59 Intake Total 536 Output Total 1300 1600 Balance -764 -1600 Weight 81.5 kg Intake: Oral 536 Output: Urine 1300 1600 Other: Voiding Method Indwelling Catheter Indwelling Catheter Indwelling Catheter - Labs CBC & Chem 7: 04/28/20 06:57 04/28/20 06:57 Labs: Abnormal Lab Results - Last 24 Hours (Table) 04/27/20 04/27/20 04/27/20 Range/Units 08:42 08:42 11:36 RBC 2.76 L (3.80-5.40) m/uL Hgb 9.3 L (11.4-16.0) gm/dL Hct 29.1 L (34.0-46.0) % MCV 105.7 H (80.0-100.0) fL RDW (11.5-15.5) % Plt Count 125 L (150-450) k/uL Lymphocytes # 0.8 L (1.0-4.8) k/uL Carbon Dioxide 31 H (22-30) mmol/L BUN 55 H (7-17) mg/dL Creatinine 1.55 H (0.52-1.04) mg/dL Glucose 240 H (74-99) mg/dL POC Glucose (mg/dL) 163 H (75-99) mg/dL Calcium 8.3 L (8.4-10.2) mg/dL 04/27/20 04/27/20 04/28/20 Range/Units 16:36 20:07 06:22 RBC (3.80-5.40) m/uL Hgb (11.4-16.0) gm/dL Hct (34.0-46.0) % MCV (80.0-100.0) fL RDW (11.5-15.5) % Plt Count (150-450) k/uL Lymphocytes # (1.0-4.8) k/uL Carbon Dioxide (22-30) mmol/L BUN (7-17) mg/dL Creatinine (0.52-1.04) mg/dL Glucose (74-99) mg/dL POC Glucose (mg/dL) 171 H 240 H 135 H (75-99) mg/dL Calcium (8.4-10.2) mg/dL 04/28/20 04/28/20 Range/Units 06:57 06:57 RBC 2.78 L (3.80-5.40) m/uL Hgb 9.3 L (11.4-16.0) gm/dL Hct 29.0 L (34.0-46.0) % MCV 104.2 H (80.0-100.0) fL RDW 15.6 H (11.5-15.5) % Plt Count 128 L (150-450) k/uL Lymphocytes # (1.0-4.8) k/uL Carbon Dioxide 39 H (22-30) mmol/L BUN 43 H (7-17) mg/dL Creatinine 1.44 H (0.52-1.04) mg/dL Glucose 134 H (74-99) mg/dL POC Glucose (mg/dL) (75-99) mg/dL Calcium 8.0 L (8.4-10.2) mg/dL Microbiology - Last 24 Hours (Table) 04/25/20 13:26 Urine Culture - Preliminary Urine,Voided Gram Neg Bacilli Escherichia coli Assessment and Plan Plan: Assessment: 1. Acute kidney injury secondary to ATN secondary to cardiorenal syndrome. Renal function improving. Creatinine 1.44 today. 2. Hyperkalemia secondary to acute kidney injury. Blood sugar is not too elevated. No evidence of metabolic acidosis. She is not on any medications that would raise the potassium. Improved with medical management. 3. UTI with urine culture positive for E. coli maintained on antibiotics. 4. Chronic kidney disease stage III with baseline creatinine 1.2-1.5 secondary to diabetic kidney disease. 5. Acute on chronic systolic CHF with ejection fraction of 45-50% with severe tricuspid regurgitation and pulmonary hypertension. 6. Volume overload. Improving with diuresis. 7. Status post fall. 8. Anemia of chronic kidney disease. Severe iron deficiency noted. Plan: Maintain oral Lasix. IV iron 3 doses. Second dose today. Renal diet. Avoid nephrotoxins. Continue to monitor renal function and urine output.
[2020-04-28] MEDS: PRIMIDONE 50 MG TAB PO SCH ×2 (09:56→20:19)
[2020-04-28] MEDS: SODIUM FERRIC GLUCONAT-SUCROSE 125 MG in SODIUM CHLORIDE 0.9% 100 ML IVPB SCH ×2 (10:14→14:02)
--- NOTE | 2020-04-28 10:41 | P.PN ---
Subjective Progress Note Date: 04/28/20 Patient is having increased shakiness today. Unfortunately her Mysoline dose was not ordered since admission. She is otherwise diuresing well. No shortness of breath. Lab work is improving. Objective - Vital Signs Vital signs: Vital Signs Temp 97.8 F 04/28/20 08:00 Pulse 73 04/28/20 08:00 Resp 18 04/28/20 08:00 BP 170/74 04/28/20 08:00 Pulse Ox 96 04/28/20 08:00 Intake & Output 04/27/20 04/28/20 04/28/20 18:59 06:59 18:59 Intake Total 536 236 Output Total 1300 1600 475 Balance -764 -1600 -591 Weight 81.5 kg Intake: Oral 536 236 Output: Urine 1300 1600 475 Other: Voiding Method Indwelling Catheter Indwelling Catheter Indwelling Catheter - Exam General: The patient is awake and alert, in no distress Eye: there is normal conjunctiva bilaterally. Neck: The neck is supple, there is no JVD. Cardiovascular: Normal S1-S2, no S3-S4, no murmurs. Respiratory: Lungs clear to auscultation bilaterally Gastrointestinal: Abdomen is soft, nontender Musculoskeletal: There is +1 pedal edema. Neurological:. Speech is normal. Skin: Skin is warm and dry - Labs CBC & Chem 7: 04/28/20 06:57 04/28/20 06:57 Labs: Abnormal Lab Results - Last 24 Hours (Table) 04/27/20 04/27/20 04/27/20 Range/Units 11:36 16:36 20:07 RBC (3.80-5.40) m/uL Hgb (11.4-16.0) gm/dL Hct (34.0-46.0) % MCV (80.0-100.0) fL RDW (11.5-15.5) % Plt Count (150-450) k/uL Carbon Dioxide (22-30) mmol/L BUN (7-17) mg/dL Creatinine (0.52-1.04) mg/dL Glucose (74-99) mg/dL POC Glucose (mg/dL) 163 H 171 H 240 H (75-99) mg/dL Calcium (8.4-10.2) mg/dL 04/28/20 04/28/20 04/28/20 Range/Units 06:22 06:57 06:57 RBC 2.78 L (3.80-5.40) m/uL Hgb 9.3 L (11.4-16.0) gm/dL Hct 29.0 L (34.0-46.0) % MCV 104.2 H (80.0-100.0) fL RDW 15.6 H (11.5-15.5) % Plt Count 128 L (150-450) k/uL Carbon Dioxide 39 H (22-30) mmol/L BUN 43 H (7-17) mg/dL Creatinine 1.44 H (0.52-1.04) mg/dL Glucose 134 H (74-99) mg/dL POC Glucose (mg/dL) 135 H (75-99) mg/dL Calcium 8.0 L (8.4-10.2) mg/dL Microbiology - Last 24 Hours (Table) 04/25/20 13:26 Urine Culture - Preliminary Urine,Voided Gram Neg Bacilli Escherichia coli Assessment and Plan Assessment: This is a 80-year-old female with complex past medical history noted below who presented to the emergency room from home after sustaining a mechanical fall and hitting her head on the ground. Patient was evaluated in the ER and admitted to the hospital for further management of her medical problems. Acute kidney injury with hyperkalemia on stage III chronic kidney disease Obstructive uropathy with 400 mL of urine postvoid residual -Status post Cuevas catheter insertion. We will rule out for bladder decompression for 2-3 days. Voiding trial on Tuesday or Tuesday. -Kidney ultrasound showed no evidence of hydronephrosis -Hyperkalemia treated medically with multiple doses of Kayexalate, calcium gluconate, and IV insulin -Nephrology consulted for further evaluation, appreciate recommendation -Continue close monitoring with repeat a.m. labs. Urinary tract infection -Currently on IV cefepime day #4 -Urine culture grew E. coli resistant to cefazolin and another gram-negative bacilli awaiting final identification and susceptibility Fall with closed head injury -Neuro checks unremarkable -CT head and cervical spine in the ER revealed a right posterior scalp contusion with mild age related cerebral atrophy and patchy burden of chronic small vessel ischemic disease. No acute intercranial abnormalities seen. No acute fracture of the cervical spine - -repeat CT head 24 hours later (per trauma protocol for anticoagulated patient) negative for acute findings Bradycardia -Metoprolol discontinued, heart rate improved currently in the low 60s -TSH within normal range Anemia of chronic disease -Stable -Patient started on IV iron per nephrology recommendations today dose 2/3 Type II [id number] diabetes mellitus -Hold oral glycemic medications. Patient placed on glycemic protocol with sliding scale. -Cardiac/diabetic diet. Chronic conditions stable including: CAD, CHF, hypertension, hyperlipidemia, persistent atrial flutter, and COPD -Continue home medication management. Physical debility, PT/OT consulted. Patient would benefit from subacute rehab. CODE STATUS: Full code DVT prophylaxis: Eliquis Home medications reviewed and ordered. The patient does not have a DPOAE, but in the event she cannot make decisions she would like Nicolasa or Karri Swenson to make decisions for her and they can be reached at [phone] or [phone]. Discharge planning depending clinical course
[2020-04-28 12:24] LABS: Glucose,Whole Blood 157 mg/dL (75-99)
[2020-04-28 16:30] LABS: Glucose,Whole Blood 200 mg/dL (75-99)
[2020-04-28] MEDS: ATORVASTATIN 10 MG TAB PO SCH (20:18)
[2020-04-28 20:54] LABS: Glucose,Whole Blood 182 mg/dL (75-99)
[2020-04-28] MEDS ORDERED: LORazepam 0.5 MG TAB PO SCH (21:00)
[2020-04-28] MEDS: COLCHICINE 0.6 MG EACH PO SCH (21:34)
[2020-04-28] MEDS ORDERED: traMADol 50 MG TAB PO STA (22:35)
[2020-04-28] MEDS ORDERED: ALPRAZolam 0.5 MG TAB PO STA (22:36)
[2020-04-29] MEDS: CEFEPIME 1 GM in SODIUM CHLORIDE 0.9% 50 ML IVPB SCH ×2 (05:03→18:45)
[2020-04-29 06:18] LABS: Glucose,Whole Blood 174 mg/dL (75-99)
[2020-04-29] MEDS: INSULIN ASPART (NovoLOG) 100 UNIT/ML VIAL SQ SCH ×4 (06:51→21:07)
[2020-04-29 08:30] LABS: Basophils % (A) 1 %; Eosinophils # (A) 0.2 k/uL (0-0.7); Eosinophils % (A) 4 %; HCT 29.8 % (34.0-46.0); HGB 9.8 gm/dL (11.4-16.0); Hypochromasia Slight; Lymphocytes # (A) 0.9 k/uL (1.0-4.8); Lymphocytes % (A) 15 %; MCH 33.5 pg (25.0-35.0); MCHC 32.7 g/dL (31.0-37.0); MCV 102.4 fL (80.0-100.0); Macrocytosis Slight; Mean Platelet Volume 7.4; Monocytes # (A) 0.4 k/uL (0-1.0); Monocytes % (A) 7 %; Neutrophils # (A) 4.5 k/uL (1.3-7.7); Neutrophils % (A) 72 %; Platelet Count 145 k/uL (150-450); RBC 2.92 m/uL (3.80-5.40); RDW 15.6 % (11.5-15.5); WBC 6.3 k/uL (3.8-10.6)
[2020-04-29 08:36] LABS: Calcium 8.1 mg/dL (8.4-10.2); Potassium 4.2 mmol/L (3.5-5.1)
[2020-04-29] MEDS: GABAPENTIN 100 MG CAP PO SCH ×3 (09:07→20:24)
[2020-04-29] MEDS: FUROSEMIDE 40 MG TAB PO SCH ×3 (09:07→15:42)
[2020-04-29] MEDS: APIXABAN 2.5 MG TABLET PO SCH ×3 (09:07→20:24)
[2020-04-29] MEDS: PRIMIDONE 50 MG TAB PO SCH ×3 (09:08→20:24)
[2020-04-29] MEDS: ACETAMINOPHEN TAB 325 MG TAB PO PRN ×3 (09:08→22:36)
[2020-04-29] MEDS: COLCHICINE 0.6 MG EACH PO SCH ×3 (09:09→21:07)
[2020-04-29] MEDS: EZETIMIBE 10 MG TAB PO SCH ×2 (09:09→13:18)
[2020-04-29] MEDS: ONDANSETRON 4 MG/2 ML VIAL IVP PRN (09:33)
[2020-04-29] MEDS ORDERED: LORazepam 2 MG/ML INJ IV STA (09:36)
--- NOTE | 2020-04-29 10:03 | P.PN ---
Subjective Patient is seen in follow-up for acute kidney injury on chronic kidney disease. Renal function improving. Maintained on oral Lasix. Has a Cuevas catheter. Nonoliguric. Currently on 2 L nasal cannula. More tired today. Vital signs are stable. General: The patient appeared well nourished and normally developed. HEENT: Head exam is unremarkable. Neck is without jugular venous distension. LUNGS: Breath sounds decreased. HEART: Rate and Rhythm are regular. ABDOMEN: Soft, nontender. EXTREMITITES: Trace edema. Chronic changes noted. Objective - Vital Signs Vital signs: Vital Signs Temp 98.1 F 04/29/20 08:00 Pulse 75 04/29/20 08:00 Resp 22 04/29/20 08:00 BP 165/64 04/29/20 08:00 Pulse Ox 96 04/29/20 08:00 Intake & Output 04/28/20 04/29/20 04/29/20 18:59 06:59 18:59 Intake Total 712 Output Total 2325 950 Balance -1613 -950 Weight 81 kg Intake: Oral 712 Output: Urine 2325 950 Uretheral (Cuevas) 550 Other: Voiding Method Indwelling Catheter Indwelling Catheter - Labs CBC & Chem 7: 04/29/20 08:01 04/29/20 08:01 Labs: Abnormal Lab Results - Last 24 Hours (Table) 04/28/20 04/28/20 04/28/20 Range/Units 12:22 16:29 20:53 RBC (3.80-5.40) m/uL Hgb (11.4-16.0) gm/dL Hct (34.0-46.0) % MCV (80.0-100.0) fL RDW (11.5-15.5) % Plt Count (150-450) k/uL Lymphocytes # (1.0-4.8) k/uL Chloride (98-107) mmol/L Carbon Dioxide (22-30) mmol/L BUN (7-17) mg/dL Creatinine (0.52-1.04) mg/dL Glucose (74-99) mg/dL POC Glucose (mg/dL) 157 H 200 H 182 H (75-99) mg/dL Calcium (8.4-10.2) mg/dL 01/19/21 01/19/21 01/19/21 Range/Units 06:17 08:01 08:01 RBC 2.92 L (3.80-5.40) m/uL Hgb 9.8 L (11.4-16.0) gm/dL Hct 29.8 L (34.0-46.0) % MCV 102.4 H (80.0-100.0) fL RDW 15.6 H (11.5-15.5) % Plt Count 145 L (150-450) k/uL Lymphocytes # 0.9 L (1.0-4.8) k/uL Chloride 97 L (98-107) mmol/L Carbon Dioxide 37 H (22-30) mmol/L BUN 33 H (7-17) mg/dL Creatinine 1.25 H (0.52-1.04) mg/dL Glucose 156 H (74-99) mg/dL POC Glucose (mg/dL) 174 H (75-99) mg/dL Calcium 8.1 L (8.4-10.2) mg/dL Microbiology - Last 24 Hours (Table) 04/25/20 13:26 Urine Culture - Final Urine,Voided Pseudomonas aeruginosa Escherichia coli Assessment and Plan Plan: Assessment: 1. Acute kidney injury secondary to ATN secondary to cardiorenal syndrome. Renal function improving. Creatinine 1.25 today. 2. Hyperkalemia secondary to acute kidney injury. Blood sugar is not too elevated. No evidence of metabolic acidosis. She is not on any medications that would raise the potassium. Improved with medical management. 3. UTI with urine culture positive for E. coli maintained on antibiotics. 4. Chronic kidney disease stage III with baseline creatinine 1.2-1.5 secondary to diabetic kidney disease. 5. Acute on chronic systolic CHF with ejection fraction of 45-50% with severe tricuspid regurgitation and pulmonary hypertension. 6. Volume overload. Improving with diuresis. 7. Status post fall. 8. Anemia of chronic kidney disease. Severe iron deficiency noted. Plan: Maintain oral Lasix. IV iron 3 doses. Last dose today. Renal diet. Avoid nephrotoxins. Continue to monitor renal function and urine output.
[2020-04-29 10:12] LABS: ABG Base Excess 10.7 mmol/L; ABG HCO3 35 mmol/L (21-25); ABG Oxygen Saturation 96.2 % (94-97); ABG PCO2 54 mmHg (35-45); ABG PH 7.43 (7.35-7.45); ABG PO2 76 mmHg (83-108); ABG TCO2 37 mmol/L (19-24); Allen Test Performed? Yes
--- NOTE | 2020-04-29 11:35 | CT ---
EXAMINATION TYPE: CT brain wo con DATE OF EXAM: 04/29/2020 COMPARISON: 04/26/2020 HISTORY: Confusion CT DLP: 1136.4 mGycm Automated exposure control for dose reduction was used. FINDINGS: Soft tissue hematoma overlying the posterior right occiput. Measures approximately 1.8 cm. Ventricula r system is midline. Periventricular low attenuation is nonspecific but most typical remote white mat ter ischemia. No acute intracranial hemorrhage or mass effect. Hyperostosis of frontal bone. IMPRESSION: 1. Degenerative and nonspecific white matter changes most typical remote ischemia. 2. No acute hemorrhage or mass effect. 3. Soft tissue hematoma overlying the posterior right parietal occipital. Calvarium intact.
[2020-04-29 11:50] LABS: Glucose,Whole Blood 175 mg/dL (75-99)
--- NOTE | 2020-04-29 15:20 | P.PN ---
Subjective Progress Note Date: 04/29/20 Patient mentation is worse today. She is more confused and repeating words such as she is in pain without being specific on where her pain is. Her mentation has been declining since her admission in particular in the last 2 days. On presentation, patient was alert and oriented and was able to answer questions appropriately. Over the last couple of days her mentation continued to worsen and she appeared more confused. She is definitely worse today. She has a history of parkinsonism or Parkinson-like symptoms versus essential tremor. Objective - Vital Signs Vital signs: Vital Signs Temp 98.1 F 04/29/20 13:00 Pulse 77 04/29/20 13:00 Resp 18 04/29/20 13:00 BP 150/68 04/29/20 13:00 Pulse Ox 97 04/29/20 13:00 Intake & Output 04/28/20 04/29/20 04/29/20 18:59 06:59 18:59 Intake Total 712 20 Output Total 2325 950 Balance -1613 -950 20 Weight 81 kg Intake: Oral 712 20 Output: Urine 2325 950 Uretheral (Cuevas) 550 Other: Voiding Method Indwelling Catheter Indwelling Catheter Indwelling Catheter - Exam General: The patient is awake and alert, in no distress Eye: there is normal conjunctiva bilaterally. Neck: The neck is supple, there is no JVD. Cardiovascular: Normal S1-S2, no S3-S4, no murmurs. Respiratory: Lungs clear to auscultation bilaterally Gastrointestinal: Abdomen is soft, nontender Musculoskeletal: There is +1 pedal edema. Neurological:. Speech is normal. Skin: Skin is warm and dry - Labs CBC & Chem 7: 04/29/20 08:01 04/29/20 08:01 Labs: Abnormal Lab Results - Last 24 Hours (Table) 04/28/20 04/28/20 04/29/20 Range/Units 16:29 20:53 06:17 RBC (3.80-5.40) m/uL Hgb (11.4-16.0) gm/dL Hct (34.0-46.0) % MCV (80.0-100.0) fL RDW (11.5-15.5) % Plt Count (150-450) k/uL Lymphocytes # (1.0-4.8) k/uL ABG pCO2 (35-45) mmHg ABG pO2 (83-108) mmHg ABG HCO3 (21-25) mmol/L ABG Total CO2 (19-24) mmol/L Chloride (98-107) mmol/L Carbon Dioxide (22-30) mmol/L BUN (7-17) mg/dL Creatinine (0.52-1.04) mg/dL Glucose (74-99) mg/dL POC Glucose (mg/dL) 200 H 182 H 174 H (75-99) mg/dL Calcium (8.4-10.2) mg/dL 04/29/20 04/29/20 04/29/20 Range/Units 08:01 08:01 10:09 RBC 2.92 L (3.80-5.40) m/uL Hgb 9.8 L (11.4-16.0) gm/dL Hct 29.8 L (34.0-46.0) % MCV 102.4 H (80.0-100.0) fL RDW 15.6 H (11.5-15.5) % Plt Count 145 L (150-450) k/uL Lymphocytes # 0.9 L (1.0-4.8) k/uL ABG pCO2 54 H (35-45) mmHg ABG pO2 76 L (83-108) mmHg ABG HCO3 35 H (21-25) mmol/L ABG Total CO2 37 H (19-24) mmol/L Chloride 97 L (98-107) mmol/L Carbon Dioxide 37 H (22-30) mmol/L BUN 33 H (7-17) mg/dL Creatinine 1.25 H (0.52-1.04) mg/dL Glucose 156 H (74-99) mg/dL POC Glucose (mg/dL) (75-99) mg/dL Calcium 8.1 L (8.4-10.2) mg/dL 04/29/20 Range/Units 11:36 RBC (3.80-5.40) m/uL Hgb (11.4-16.0) gm/dL Hct (34.0-46.0) % MCV (80.0-100.0) fL RDW (11.5-15.5) % Plt Count (150-450) k/uL Lymphocytes # (1.0-4.8) k/uL ABG pCO2 (35-45) mmHg ABG pO2 (83-108) mmHg ABG HCO3 (21-25) mmol/L ABG Total CO2 (19-24) mmol/L Chloride (98-107) mmol/L Carbon Dioxide (22-30) mmol/L BUN (7-17) mg/dL Creatinine (0.52-1.04) mg/dL Glucose (74-99) mg/dL POC Glucose (mg/dL) 175 H (75-99) mg/dL Calcium (8.4-10.2) mg/dL Microbiology - Last 24 Hours (Table) 04/25/20 13:26 Urine Culture - Final Urine,Voided Pseudomonas aeruginosa Escherichia coli Assessment and Plan Assessment: This is a 80-year-old female with complex past medical history noted below who presented to the emergency room from home after sustaining a mechanical fall and hitting her head on the ground. Patient was evaluated in the ER and admitted to the hospital for further management of her medical problems. Acute kidney injury with hyperkalemia on stage III chronic kidney disease Obstructive uropathy with 400 mL of urine postvoid residual -Status post Cuevas catheter insertion. We will allow for bladder decompression for 2-3 days. Voiding trial possibly tomorrow -Kidney ultrasound showed no evidence of hydronephrosis -Hyperkalemia treated medically with multiple doses of Kayexalate, calcium gluconate, and IV insulin -Nephrology consulted for further evaluation, appreciate recommendation -Continue close monitoring with repeat a.m. labs. Urinary tract infection -Currently on IV cefepime day #5 -Urine culture grew Pseudomonas and E. coli resistant to cefazolin Fall with closed head injury -Neuro checks unremarkable -CT head and cervical spine in the ER revealed a right posterior scalp contusion with mild age related cerebral atrophy and patchy burden of chronic small vessel ischemic disease. No acute intercranial abnormalities seen. No acute fracture of the cervical spine - -repeat CT head 24 hours later (per trauma protocol for anticoagulated patient) negative for acute findings Worsening confusion -Exact etiology unclear. No underlying metabolic disturbance to explain her confusion and repeating words. Her kidney function improved. Her underlying UTI is being treated. Blood gas showed no evidence of CO2 retention. -I would consult neurology for further evaluation Bradycardia -Metoprolol dose reduced to Lopressor 12.5 mg twice daily. We'll continue to monitor heart rate. -TSH within normal range Anemia of chronic disease -Stable -Patient started on IV iron per nephrology recommendations today dose 2/3 Type II [id number] diabetes mellitus -Hold oral glycemic medications. Patient placed on glycemic protocol with sliding scale. -Cardiac/diabetic diet. Chronic conditions stable including: CAD, CHF, hypertension, hyperlipidemia, persistent atrial flutter, and COPD -Continue home medication management. Physical debility, PT/OT consulted. Patient would benefit from subacute rehab. CODE STATUS: Full code DVT prophylaxis: Eliquis Home medications reviewed and ordered. The patient does not have a DPOAE, but in the event she cannot make decisions she would like Nicolasa or Karri Swenson to make decisions for her and they can be reached at [phone] or [phone]. Discharge planning depending clinical course
[2020-04-29] MEDS: SODIUM FERRIC GLUCONAT-SUCROSE 125 MG in SODIUM CHLORIDE 0.9% 100 ML IVPB SCH (15:42)
[2020-04-29 16:55] LABS: Glucose,Whole Blood 153 mg/dL (75-99)
[2020-04-29] MEDS: METOPROLOL TARTRATE 12.5 MG TAB PO SCH (20:24)
[2020-04-29] MEDS: ATORVASTATIN 10 MG TAB PO SCH (20:24)
[2020-04-29 20:46] LABS: Glucose,Whole Blood 168 mg/dL (75-99)
[2020-04-30] MEDS: CEFEPIME 1 GM in SODIUM CHLORIDE 0.9% 50 ML IVPB SCH ×2 (05:04→17:27)
[2020-04-30 05:56] LABS: Glucose,Whole Blood 148 mg/dL (75-99)
[2020-04-30] MEDS: INSULIN ASPART (NovoLOG) 100 UNIT/ML VIAL SQ SCH ×4 (06:26→20:59)
[2020-04-30] MEDS: PRIMIDONE 50 MG TAB PO SCH ×2 (09:20→21:00)
[2020-04-30] MEDS: CYANOCOBALAMIN 500 MCG TAB PO SCH (09:20)
[2020-04-30] MEDS: GABAPENTIN 100 MG CAP PO SCH (09:20)
[2020-04-30] MEDS: FOLIC ACID 1 MG TAB PO SCH (09:20)
[2020-04-30] MEDS: APIXABAN 2.5 MG TABLET PO SCH ×2 (09:21→21:00)
[2020-04-30] MEDS: FUROSEMIDE 40 MG TAB PO SCH ×2 (09:21→17:27)
[2020-04-30] MEDS: EZETIMIBE 10 MG TAB PO SCH (09:21)
[2020-04-30] MEDS: COLCHICINE 0.6 MG EACH PO SCH ×2 (09:21→21:00)
[2020-04-30] MEDS: METOPROLOL TARTRATE 12.5 MG TAB PO SCH ×2 (09:21→20:59)
[2020-04-30] MEDS: ACETAMINOPHEN TAB 325 MG TAB PO PRN ×2 (09:27→17:27)
--- NOTE | 2020-04-30 10:10 | P.CNNES ---
History of Present Illness Consult date: 04/30/20 Requesting physician: Rony Oliva Reason for Consult: worsening confusion and ?Parkinsonism History of Present Illness: This is an 80-year-old woman with medical history of Transient ischemic attack on 02/08/20, ?Parkinson disease, atrial fibrillation status post cardioversion, diabetes, hyperlipidemia, hypertension, sleep apnea, coronary artery disease status post bypass, peripheral vascular disease, congestive heart failure, COPD presented emergency department on 04/25/2020 for a fall. She was brought to the the ED via EMS with a c-collar. Some of the history is obtained from medical records since patient is unable to provide history. Patient states that she lives home alone and she was in her kitchen near the catheter were that her legs buckled. She went to the ground and hit her head over the right occipital parietal region. Patient denied losing consciousness. But did develop dizziness afterwards. She felt the room was spinning around her. She denies of visual disturbance as well as she denies of any nausea or vomiting. She does take Eliquis for her atrial fibrillation/flutter. Per the ED note it's mentioned that the she states she feels like Parkinson's is developing. Neurology is consulted because of the worsening confusion. Per the primary team's note it is mentioned that the patient's mentation is declining the last 2 days. On presentation patient was alert oriented was able to answer questions appropriately. During this hospital stay the patient had urinary tract infection and was being treated for it. Seems that the patient received Xanax 0.5 mg on 04/28/2020 close to midnight and that she received Ativan 0.5 mg once on 0 119 in the morning. According to patient she was diagnosed with Parkinson's disease but not able to tell me exactly the history of visits or one was a diagnosed. She is not on the carbidopa levodopa or amantadine. She stated that she is getting primidone from her primary care physician. I would assume that the primidone is used for her tremors but not exactly sure and whats her official diagnosis. Workup in the hospital consisted of: Initial CT of the head as well as cervical spine was reported as right posterior scalp contusion. Mild age-related cerebral atrophy and patchy burden of chronic small vessel ischemia disease. No acute intracranial abnormality seen. No acute fracture of the cervical spine that. Moderate spondylitic changes at. Degenerative grade 1 anterior lithiasis at the C3-C4 and C6-C7. a small layering right pleural effusion. Correlate as to etiology. Patient had a repeated CT of the head (04/26/20) for 24-hour follow-up post fall abnormal head CT, and history of fall since the patient is on blood thinner and that it's reported as no acute abnormality. Then had third CT head (04/29/20) because of confusion and it's reported as degenerative and nonspecific white matter changes most typical remote ischemia. No acute hemorrhage or mass effect. Soft tissue hematoma overlying the posterior right parietal occipital. Calvaerium intact. EKG is reported as junctional rhythm. Rightward axis. Low voltage QRS. ST and T-wave abnormality, consider lateral ischemia. Abnormal EKG. Urinalysis is positive for your tract infection. Appears turbid, nitrates negative, leukocyte esterase was large, urine white blood cell is more than 182 and the urine white blood cell clumps is many as a urine bacteria is many. Patient has microcytic anemia. Presentation the patient had hyperkalemia and that has resolved. Also on presentation the patient had creatinine was 1.98 and the last creatinine is 1.25. TSH is 3.050 which is within the normal limits. The serum glucose has been in the range of 5 130s to the 240s. AST on presentation 26 and ALTs 19. I Personally saw the patient on 02/08/2020 for transient episode of left facial droop as well as dysarthria. I felt that was a transient ischemic attack. Please defer to my note for detailed the neurological history as well as workup. Review of Systems Review of system: The 12 point system was reviewed and apparent positive and negative per HPI. Past Medical History Past Medical History: COPD, Diabetes Mellitus, Hyperlipidemia, Hypertension, Myocardial Infarction ([place]), Sleep Apnea/CPAP/BIPAP Additional Past Medical History / Comment(s): tremors,NO left arm blood draw or blood pressure(vessel harvested for CABG), blockages in angelica legs, Coonstipation, gout, PAD Last Myocardial Infarction Date:: 1999 History of Any Multi-Drug Resistant Organisms: None Reported Past Surgical History: Appendectomy, Coronary Bypass/CABG, Heart Catheterization, Hysterectomy, Tonsillectomy Additional Past Surgical History / Comment(s): angiogram. Right neck lymphnode removal Past Anesthesia/Blood Transfusion Reactions: No Reported Reaction Past Psychological History: No Psychological Hx Reported Additional Psychological History / Comment(s): Pt resides alone. She uses a walker to ambulate. She no longer drives, her sister in law drives. Pt has a glucometer and a nebulizer but will not use because it nauseates her. 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 Pt lives at [facility]. Smoking Status: Former smoker Past Alcohol Use History: None Reported Additional Past Alcohol Use History / Comment(s): Pt started smoking in 1952 and quit in 2004 Past Drug Use History: None Reported - Past Family History Mother Family Medical History: COPD, Myocardial Infarction ([place]) Brother(s) Family Medical History: Cancer Additional Family Medical History / Comment(s): LUNG CANCER Son(s) Family Medical History: Cancer Additional Family Medical History / Comment(s): COLON CANCER Sister(s) Family Medical History: Cancer Additional Family Medical History / Comment(s): (2) SISTERS HAD BREAST CANCER. Medications and Allergies Home Medications Medication Instructions Recorded Confirmed Type Ezetimibe [Zetia] 10 mg PO DAILY 11/20/13 04/25/20 History Lovastatin [Mevacor] 10 mg PO HS 11/20/13 04/25/20 History Primidone [Mysoline] 50 mg PO DAILY 01/25/19 04/25/20 History Primidone [Mysoline] 100 mg PO HS 01/25/19 04/25/20 History Apixaban [Eliquis] 2.5 mg PO BID 02/17/20 04/25/20 History Calcium Carb-Vit D 500Mg-5Mcg 1 tab PO TID 02/17/20 04/25/20 History [Oscal 500+D 5 Mcg (200 Iu)] Cyanocobalamin [Vitamin B-12] 500 mcg PO DAILY 02/17/20 04/25/20 History Folic Acid 1 mg PO DAILY 02/17/20 04/25/20 History Metoprolol Succinate (ER) [Toprol 50 mg PO DAILY 02/17/20 04/25/20 History XL] Gabapentin [Neurontin] 100 mg PO BID #6 03/25/20 04/25/20 Rx Magnesium Oxide [Mag-Ox] 400 mg PO DAILY tab 03/25/20 04/25/20 Rx Psyllium Husk 100% [Metamucil 6 gm PO DAILY packet 03/25/20 04/25/20 Rx Packet] SILVER sulfADIAZINE Cream 1 applic TOPICAL BID #1 gram 03/25/20 04/25/20 Rx [Silvadene 1% Cream] Colchicine [Colcrys] 0.6 mg PO BID 04/25/20 04/25/20 History Furosemide [Lasix] 40 mg PO BID 04/25/20 04/25/20 History sitaGLIPtin [Januvia] 50 mg PO DAILY 04/25/20 04/25/20 History Allergies Allergy/AdvReac Type Severity Reaction Status Date / Time albuterol [From DuoNeb] AdvReac Nausea Verified 04/25/20 12:37 cortisone AdvReac PAIN Verified 04/25/20 12:37 hydrocodone AdvReac Nausea Verified 04/25/20 12:37 ipratropium [From DuoNeb] AdvReac Nausea Verified 04/25/20 12:37 procaine HCl [From Novocain] AdvReac pain Verified 04/25/20 12:37 allergy medicines AdvReac "dries me Uncoded 02/17/20 10:00 out, bloody noses,generalized pain" Physical Examination - Vital Signs Vital Signs: Vital Signs Temp Pulse Pulse Resp BP BP Pulse Ox 04/29/20 15:46 98.6 F 75 20 132/61 95 04/29/20 13:00 98.1 F 77 18 150/68 97 04/29/20 08:00 98.1 F 75 22 165/64 96 04/29/20 03:52 98.0 F 92 18 124/67 94 L 04/28/20 23:00 82 18 150/79 96 04/28/20 20:15 97.8 F 83 16 163/74 98 Intake and Output 04/29/20 04/29/20 04/29/20 06:59 14:59 22:59 Intake Total 20 100 Output Total 400 650 Balance -400 20 -550 Intake: Intake, IV Titration 100 Amount Sodium Ferric Gluconat- 100 Sucrose 125 mg In Sodium Chloride 0.9% 100 ml @ 100 mls/hr IVPB Q24H [facility] Rx#:[id number] Oral 20 Output: Urine 400 650 Other: Voiding Method Indwelling Catheter Indwelling Catheter Weight 81 kg GENERAL: The patient is lying in bed and seemed in distress CHEST: The heart rate is regular rate rhythm. No murmurs to auscultation. LUNG: Clear to auscultation bilaterally no wheezing noted throughout. Not labored breathing. ABDOMEN/GI: Bowel sounds present in all 4 quadrants. No tenderness to palpation throughout. NEUROLOGICAL: Limited because of patient's cooperation. Higher mental function: The patient is awake, alert, oriented to self. She stated she is in the hospital but could not tell me name of it. Not oriented to time. She stated it was year 1999. Patient is following some simple commands but somewhat slow to respond. No aphasia and no neglect. During the examination patient on saying I have pain and ouch even tough she is not been touched and would not tell. Cranial nerves: The pupils are round, equal and reactive to light and accommodation. Visual tate are hard to assess because of patient's cooperation. Extraocular movement: patient tracking throughout room and no nystagmus appreciated. Facial sensation could not be assessed because of patient's cooperation. The facial strength is normal throughout. No dysarthria is noted. Rest of cranial nerves could not be assessed because of patient cooperation. Motor: Gait is deferred because of patient's cooperation. The strength is able to lift bilateral upper extremities above gravity and was able to move them 2- 3/5 at least but strength is limited because of patient's cooperation. Normal tone and bulk. She had inconsitent tremor of right upper extremity > left and with distraction improved. Cerebellum: Could not assessed. because patient kept on saying "don't touch me anywhere". Sensation: Could not assessed. because patient kept on saying "don't touch me anywhere". Reflexes (right/left): Could not be assessed because of patient's cooperation. Plantars Could not be assessed because of cooperation. Results Coagulation study on presentation: PT of 11.0 INR of 1.0 and PTT of 24.6. - Laboratory Findings CBC and BMP: 04/29/20 08:01 04/29/20 08:01 Abnormal Lab Findings: Abnormal Labs 04/25/20 04/25/20 04/25/20 11:15 11:15 12:06 RBC 2.98 L Hgb 9.6 L Hct 31.2 L MCV 104.7 H MCHC 30.8 L RDW 16.3 H Plt Count 146 L Lymphocytes # ABG pCO2 ABG pO2 ABG HCO3 ABG Total CO2 Potassium 6.2 H* 6.0 H Chloride Carbon Dioxide BUN 71 H Creatinine 1.98 H Glucose 150 H POC Glucose (mg/dL) Calcium Magnesium 2.7 H Iron % Saturation Urine Appearance Urine Protein Urine Blood Ur Leukocyte Esterase Urine RBC Urine WBC Urine WBC Clumps Ur Squamous Epith Cells Urine Bacteria 04/25/20 04/25/20 04/25/20 13:26 18:09 19:35 RBC Hgb Hct MCV MCHC RDW Plt Count Lymphocytes # ABG pCO2 ABG pO2 ABG HCO3 ABG Total CO2 Potassium 6.6 H* Chloride Carbon Dioxide BUN Creatinine Glucose POC Glucose (mg/dL) 185 H Calcium Magnesium Iron % Saturation Urine Appearance Turbid H Urine Protein 2+ H Urine Blood Moderate H Ur Leukocyte Esterase Large H Urine RBC 70 H Urine WBC >182 H Urine WBC Clumps Many H Ur Squamous Epith Cells 5 H Urine Bacteria Many H 04/25/20 04/25/20 04/26/20 19:35 20:39 02:23 RBC Hgb Hct MCV MCHC RDW Plt Count Lymphocytes # ABG pCO2 ABG pO2 ABG HCO3 ABG Total CO2 Potassium 6.6 H* 5.8 H Chloride Carbon Dioxide BUN 71 H Creatinine 1.85 H Glucose 213 H POC Glucose (mg/dL) 184 H Calcium Magnesium Iron % Saturation Urine Appearance Urine Protein Urine Blood Ur Leukocyte Esterase Urine RBC Urine WBC Urine WBC Clumps Ur Squamous Epith Cells Urine Bacteria 04/26/20 04/26/20 04/26/20 07:30 08:27 08:27 RBC 2.81 L Hgb 9.3 L Hct 29.4 L MCV 104.7 H MCHC RDW 15.8 H Plt Count 123 L Lymphocytes # ABG pCO2 ABG pO2 ABG HCO3 ABG Total CO2 Potassium Chloride Carbon Dioxide 32 H BUN 67 H Creatinine 1.79 H Glucose 126 H POC Glucose (mg/dL) Calcium Magnesium Iron <2 L % Saturation 0.31 L Urine Appearance Urine Protein Urine Blood Ur Leukocyte Esterase Urine RBC Urine WBC Urine WBC Clumps Ur Squamous Epith Cells Urine Bacteria 04/26/20 04/26/20 04/26/20 11:53 16:53 20:40 RBC Hgb Hct MCV MCHC RDW Plt Count Lymphocytes # ABG pCO2 ABG pO2 ABG HCO3 ABG Total CO2 Potassium Chloride Carbon Dioxide BUN Creatinine Glucose POC Glucose (mg/dL) 168 H 139 H 111 H Calcium Magnesium Iron % Saturation Urine Appearance Urine Protein Urine Blood Ur Leukocyte Esterase Urine RBC Urine WBC Urine WBC Clumps Ur Squamous Epith Cells Urine Bacteria 04/27/20 04/27/20 04/27/20 06:04 08:42 08:42 RBC 2.76 L Hgb 9.3 L Hct 29.1 L MCV 105.7 H MCHC RDW Plt Count 125 L Lymphocytes # 0.8 L ABG pCO2 ABG pO2 ABG HCO3 ABG Total CO2 Potassium Chloride Carbon Dioxide 31 H BUN 55 H Creatinine 1.55 H Glucose 240 H POC Glucose (mg/dL) 125 H Calcium 8.3 L Magnesium Iron % Saturation Urine Appearance Urine Protein Urine Blood Ur Leukocyte Esterase Urine RBC Urine WBC Urine WBC Clumps Ur Squamous Epith Cells Urine Bacteria 04/27/20 04/27/20 04/27/20 11:36 16:36 20:07 RBC Hgb Hct MCV MCHC RDW Plt Count Lymphocytes # ABG pCO2 ABG pO2 ABG HCO3 ABG Total CO2 Potassium Chloride Carbon Dioxide BUN Creatinine Glucose POC Glucose (mg/dL) 163 H 171 H 240 H Calcium Magnesium Iron % Saturation Urine Appearance Urine Protein Urine Blood Ur Leukocyte Esterase Urine RBC Urine WBC Urine WBC Clumps Ur Squamous Epith Cells Urine Bacteria 04/28/20 04/28/20 04/28/20 06:22 06:57 06:57 RBC 2.78 L Hgb 9.3 L Hct 29.0 L MCV 104.2 H MCHC RDW 15.6 H Plt Count 128 L Lymphocytes # ABG pCO2 ABG pO2 ABG HCO3 ABG Total CO2 Potassium Chloride Carbon Dioxide 39 H BUN 43 H Creatinine 1.44 H Glucose 134 H POC Glucose (mg/dL) 135 H Calcium 8.0 L Magnesium Iron % Saturation Urine Appearance Urine Protein Urine Blood Ur Leukocyte Esterase Urine RBC Urine WBC Urine WBC Clumps Ur Squamous Epith Cells Urine Bacteria 04/28/20 04/28/20 04/28/20 12:22 16:29 20:53 RBC Hgb Hct MCV MCHC RDW Plt Count Lymphocytes # ABG pCO2 ABG pO2 ABG HCO3 ABG Total CO2 Potassium Chloride Carbon Dioxide BUN Creatinine Glucose POC Glucose (mg/dL) 157 H 200 H 182 H Calcium Magnesium Iron % Saturation Urine Appearance Urine Protein Urine Blood Ur Leukocyte Esterase Urine RBC Urine WBC Urine WBC Clumps Ur Squamous Epith Cells Urine Bacteria 04/29/20 04/29/2004/29/21 06:17 08:01 08:01 RBC 2.92 L Hgb 9.8 L Hct 29.8 L MCV 102.4 H MCHC RDW 15.6 H Plt Count 145 L Lymphocytes # 0.9 L ABG pCO2 ABG pO2 ABG HCO3 ABG Total CO2 Potassium Chloride 97 L Carbon Dioxide 37 H BUN 33 H Creatinine 1.25 H Glucose 156 H POC Glucose (mg/dL) 174 H Calcium 8.1 L Magnesium Iron % Saturation Urine Appearance Urine Protein Urine Blood Ur Leukocyte Esterase Urine RBC Urine WBC Urine WBC Clumps Ur Squamous Epith Cells Urine Bacteria 04/29/20 04/29/20 04/29/20 10:09 11:36 16:42 RBC Hgb Hct MCV MCHC RDW Plt Count Lymphocytes # ABG pCO2 54 H ABG pO2 76 L ABG HCO3 35 H ABG Total CO2 37 H Potassium Chloride Carbon Dioxide BUN Creatinine Glucose POC Glucose (mg/dL) 175 H 153 H Calcium Magnesium Iron % Saturation Urine Appearance Urine Protein Urine Blood Ur Leukocyte Esterase Urine RBC Urine WBC Urine WBC Clumps Ur Squamous Epith Cells Urine Bacteria Assessment and Plan Assessment: This is an 80-year-old woman with signficant medical history presented emergency department on 04/25/2020 after a fall. She denied loosing consciousness with the fall. She was found to have acute UTI and hyperkalemia. She has worsening of her mentation during her stay. Encephalopathy seems due to multifactorial: Toxic metabolic encephalopathy (EDWIN on CKD), medication effect (benzo), underlying infection (UTI) ?Tremor seems inconsistent with ?diagnosis Parkinson/Parkinsonism (Tremor seems inconsistent) Closed head injury from a fall History of TIA (02/08/2020 for left facial droop and dysarthria) Cervical spondylosis (Degenerative grade 1 anterior lithiasis at the C3-C4 and C6-C7) Atrial fibrillation status post cardioversion on anticoagulation Macrocytic anemia Acute on chronic kidney insufficiency---improving Acute Urinary tract infection diabetes Hyperkalemia---resolved Hyperlipidemia Hypertension Sleep apnea History of coronary artery disease status post bypass Peripheral vascular disease Congestive heart failure History of COPD Plan: I ordered routine EEG. I'll not start the patient on antiepileptic drug unless there is epileptiform discharges or seizure on EEG. Patient last vitamin B12 is 2324 on 03/27/2020 and therefore did not need to be repeated. I ordered folate level especially with the patient macrocytic anemia. Her home dose as vitamin B12 500 g daily as well as the folic acid 1 mg daily. Therefore I'll restart those medications. I ordered ammonia level and came back <9. TSH on this admission is normal. Physical therapy and occupation therapy are consulted. Please avoid any benzodiazepine or narcotic which will effect the patient's the mentation. Regarding her tremor which seems inconsistent on examination and the this diagnosis of questionable Parkinson/parkinsonian is him which I don't feel like she has Parkinson's. I think the patient needs to follow-up with a neurologist or even a movement specialist as an outpatient for further evaluation and possibly consider a RENAE scan as outpatient. Upon reviewing patient's the home medication looks like the patient is on primidone 20 mg daily as well 100 mg daily at bedtime and was restared by primary team. I'm not sure if the patient patient has any benefit to this medication or not for now let's resume it and the all defer adjusting the medication to the outpatient neurologist. Currently the patient is on Eliquis 2.5mg 1 tab bid, Lipitor 10mg daily and Zetia 10mg daily. My 02/08/2020 notes I recommended the patient to be on Eliquis 2.5 mg daily as well as aspirin but because of the fall I think we can hold off on aspirin to avoid any the increased risk of a bleeding. Also at that time I recommended the patient to be on Lipitor 40 mg but this time she is on Lipitor 10 as well as Zetia a thing that would be sufficient. If possible please avoid any antipsychotic drugs. I'll defer the rest of the medical management to the primary team. The plan was discussed with the patient's nurse. Thank you for the consultation. Armin Hemphill MD Neuro-Hospitalist Time with Patient: Greater than 30
--- NOTE | 2020-04-30 11:38 | P.PN ---
Subjective Patient is seen in follow-up for acute kidney injury on chronic kidney disease. Renal function improved. Maintained on oral Lasix. Has a Cuevas catheter. Nonoliguric. Currently on 2 L nasal cannula. A little more confused today. Vital signs are stable. General: The patient appeared well nourished and normally developed. HEENT: Head exam is unremarkable. Neck is without jugular venous distension. LUNGS: Breath sounds decreased. HEART: Rate and Rhythm are regular. ABDOMEN: Soft, nontender. EXTREMITITES: Trace edema. Chronic changes noted. Objective - Vital Signs Vital signs: Vital Signs Temp 99.4 F 04/30/20 08:00 Pulse 86 04/30/20 08:00 Resp 18 04/30/20 04:56 BP 140/67 04/30/20 08:00 Pulse Ox 94 L 04/30/20 09:00 Intake & Output 04/29/20 04/30/20 04/30/20 18:59 06:59 18:59 Intake Total 120 150 Output Total 650 300 Balance -530 -150 Weight 76.5 kg Intake: Intake, IV Titration 100 50 Amount Cefepime 1 gm In Sodium 50 Chloride 0.9% 50 ml @ 12. 5 mls/hr IVPB Q12H [facility] Rx #:[id number] Sodium Ferric Gluconat- 100 Sucrose 125 mg In Sodium Chloride 0.9% 100 ml @ 100 mls/hr IVPB Q24H [facility] Rx#:[id number] Oral 20 100 Output: Urine 650 300 Other: Voiding Method Indwelling Catheter Indwelling Catheter Indwelling Catheter - Labs CBC & Chem 7: 04/29/20 08:01 04/29/20 08:01 Labs: Abnormal Lab Results - Last 24 Hours (Table) 04/29/20 04/29/20 04/29/20 Range/Units 11:36 16:42 20:45 POC Glucose (mg/dL) 175 H 153 H 168 H (75-99) mg/dL 04/30/20 Range/Units 05:54 POC Glucose (mg/dL) 148 H (75-99) mg/dL Assessment and Plan Plan: Assessment: 1. Acute kidney injury secondary to ATN secondary to cardiorenal syndrome. Renal function improving. Creatinine 1.25 as of yesterday. 2. Hyperkalemia secondary to acute kidney injury. Blood sugar is not too elevated. No evidence of metabolic acidosis. She is not on any medications that would raise the potassium. Improved with medical management. 3. UTI with urine culture positive for E. coli maintained on antibiotics. 4. Chronic kidney disease stage III with baseline creatinine 1.2-1.5 secondary to diabetic kidney disease. 5. Acute on chronic systolic CHF with ejection fraction of 45-50% with severe tricuspid regurgitation and pulmonary hypertension. 6. Volume overload. Improving with diuresis. 7. Status post fall. 8. Anemia of chronic kidney disease. Severe iron deficiency noted. Status post IV iron. Plan: Maintain oral Lasix. Renal diet. Avoid nephrotoxins. Continue to monitor renal function and urine output. Repeat electrolytes in the morning.
[2020-04-30 12:10] LABS: Glucose,Whole Blood 156 mg/dL (75-99)
[2020-04-30] MEDS: SODIUM FERRIC GLUCONAT-SUCROSE 125 MG in SODIUM CHLORIDE 0.9% 100 ML IVPB SCH (13:37)
[2020-04-30 16:43] LABS: Glucose,Whole Blood 133 mg/dL (75-99)
--- NOTE | 2020-04-30 19:05 | P.PN ---
Progress Note - Text Progress Note Date: 04/30/20 History of presenting complaint: This is a pleasant 80-year-old patient of Dr. Greg Kline. Chronic stable medical conditions include COPD, diabetes, hyperlipidemia, hypertension, parkinsonism, sleep apnea, coronary artery disease with prior bypass. CHF combined with systolic and diastolic dysfunction EF 45-50%, paroxysmal atrial flutter. Normally lives alone , uses a walker . Patient presented to the ER off or taking a fall and hitting her head to the ground. Computed tomography scan of the head and cervical spine showed no right posterior scalp contusion, no fracture. Also found to bradycardia and metoprolol dose was to reduce. Also acute kidney injury. Patient seems to also be delirious. Today-laying in bed. But lethargic. Mumbling. Does open eyes. Review of systems: Attempted for constitutional, cardiovascular, GI, pulmonary. relevant finding as above Active Medications Acetaminophen (Acetaminophen Tab 325 Mg Tab) 650 mg PO Q6HR PRN PRN Reason: Fever and/ or Pain Last Admin: 04/30/20 17:27 Dose: 650 mg Documented by: Apixaban (Apixaban 2.5 Mg Tablet) 2.5 mg PO BID [facility] Last Admin: 04/30/20 09:21 Dose: 2.5 mg Documented by: Atorvastatin Calcium (Atorvastatin 10 Mg Tab) 10 mg PO HS [facility] Last Admin: 04/29/20 20:24 Dose: 10 mg Documented by: Colchicine (Colchicine 0.6 Mg Each) 0.6 mg PO BID [facility] Last Admin: 04/30/20 09:21 Dose: 0.6 mg Documented by: Cyanocobalamin (Cyanocobalamin 500 Mcg Tab) 500 mcg PO DAILY [facility] Last Admin: 04/30/20 09:20 Dose: 500 mcg Documented by: Ezetimibe (Ezetimibe 10 Mg Tab) 10 mg PO DAILY [facility] Last Admin: 04/30/20 09:21 Dose: 10 mg Documented by: Folic Acid (Folic Acid 1 Mg Tab) 1 mg PO DAILY [facility] Last Admin: 04/30/20 09:20 Dose: 1 mg Documented by: Furosemide (Furosemide 40 Mg Tab) 40 mg PO BID@0900,1600 [facility] Last Admin: 04/30/20 17:27 Dose: 40 mg Documented by: Gabapentin (Gabapentin 100 Mg Cap) 100 mg PO BID [facility] Last Admin: 04/30/20 09:20 Dose: 100 mg Documented by: Cefepime HCl 1 gm/ Sodium (Chloride) 50 mls @ 12.5 mls/hr IVPB Q12H [facility] Last Admin: 04/30/20 17:27 Dose: 12.5 mls/hr Documented by: Insulin Aspart (Insulin Aspart (Novolog) 100 Unit/Ml Vial) 0 unit SQ ACHS [facility]; Protocol Last Admin: 04/30/20 17:28 Dose: 1 unit Documented by: Metoprolol Tartrate (Metoprolol Tartrate 12.5 Mg Tab) 12.5 mg PO BID [facility] Last Admin: 04/30/20 09:21 Dose: 12.5 mg Documented by: Naloxone HCl (Naloxone 0.4 Mg/Ml 1 Ml Vial) 0.2 mg IV Q2M PRN PRN Reason: Opioid Reversal Ondansetron HCl (Ondansetron 4 Mg/2 Ml Vial) 4 mg IVP Q8HR PRN PRN Reason: Nausea And Vomiting Last Admin: 04/29/20 09:33 Dose: 4 mg Documented by: Primidone (Primidone 50 Mg Tab) 50 mg PO DAILY [facility] Last Admin: 04/30/20 09:20 Dose: 50 mg Documented by: Primidone (Primidone 50 Mg Tab) 100 mg PO HS [facility] Last Admin: 04/29/20 20:24 Dose: 100 mg Documented by: Physical examination: VITAL SIGNS: 99.4, 86, 18, 140/67, 85% on room air GENERAL: Reclining in bed, lethargic mumbling EYES: Pupils equal. Conjunctiva normal. HEENT: External appearance of nose and ears normal, Scant scalp hair NECK: JVD unable to assess; masses not palpable. HEART: Irregular heart beat; edema present LUNGS: Respiratory rate normal, diminished breath sounds ABDOMEN: Soft, nontender, liver spleen not palpable, no masses palpable. PSYCH: Lethargic, mumbling DERMATOLOGICAL: Dry skin, with dystrophic nails. INVESTIGATIONS, reviewed in the clinical context: White count 6.3 hemoglobin 9.8 platelets 145 potassium 4.2 bun 33 creatinine 1.25 Admitting labs: Bun 71 and creatinine 1.85 EKG-sinus rhythm with a rate of 49 some flipped T waves Computed tomography scan of the brain-chronic changes. Cephalic hematoma over the posterior parietal calvarium. Computed tomography scan had cervical spine-negative for fracture Previous testing: Bun 54 creatinine 1.58 on 03/24/2020 Assessment: -Blunt head injury with a fall on presentation. No fracture noted. Possible concussion. - Acute kidney injury likely prerenal. Admission creatinine was 1.98 not down to 1.25 -Acute severe hyperkalemia from kidney injury. . Corrected -Paroxysmal atrial flutter,, currently in sinus rhythm -Bilateral lower extremity xerosis -Secondary pulmonary hypertension-severe -Moderate severe tricuspid regurgitation -Diabetes mellitus type 2 with diabetic peripheral neuropathy -Obesity BMI 39 -Hyperlipidemia -Essential hypertension -Coronary artery disease with prior history of bypass -Chronic kidney disease stage III from diabetic nephropathy and hypertensive nephrosclerosis. -Chronic gait dysfunction does use a walker -Urine outflow obstruction -Peripheral arterial disease-stenting of the right superficial femoral artery. For intermittent claudication by Dr. Mcmullen -Iron deficient anemia. -Painful peripheral neuropathy on Neurontin and -acute delirium. Plan: At this point will DC patient Neurontin. Continue other medications. We'll hold off Neurontin for now. Fall precautions. Follow-up with neurology.
--- NOTE | 2020-04-30 20:10 | EEG ---
ELECTROENCEPHALOGRAM REPORT DATE OF SERVICE: 04/30/2020 CLINICAL HISTORY: This is an 80-year-old female with a history of tremor/?parkinsonism who has altered mental status. The video EEG is obtained to evaluate for seizure and epileptiform activity. RELEVANT MEDICATION: The patient is not on any antiepileptic drug. EEG TYPE: A routine 21-channel EEG is performed with video using the 10/20 electrode placement system. DESCRIPTION: Only wakefulness is obtained. During wakefulness, the background consists of 6 to 6.5 hertz activity. At times background consists of diffuse delta activity, 3 to 4 hertz. No physiological stage II sleep was seen. Also there are Generalized peroidic discharges with triphasic morphology without evolution to seizure. The patient had runs of generalized moderate-voltage 3.5-4 hertz delta activity that seems somewhat sharp in morphology, predominantly over the posterior quadrants, left more than the right, without evolution to seizure. Clinically the patient is having head tremor and right upper extremity tremor during the recording. At times she is awake and responding to the debug technician. But on occasions the patient is not having tremor on video monitoring but uncertain without evolution to seizure. INTERICTAL AND ICTAL: None. ACTIVATION PROCEDURES: Photic stimulation did not evoke a posterior driving response. Hyperventilation is not performed. CLINICAL INTERPRETATION: This is an abnormal routine EEG. The background slowing is suggestive of moderate encephalopathy. The triphasic waves are likely due to toxic metabolic encephalopathy. There are no focal slowing, clear epileptiform discharges or seizure during the study. The study was obscured by patient tremor, please refer to above. Clinical recommendation is recommended. RECOMMENDATION: I would recommend outpatient electric distribution checker EEG (8hours) or outpatient epilepsy monitoring unit (EMU) to delineate whether the patient does have any epileptiform activity or seizure. MMODL / IJN: [id number] / VERONICA
[2020-04-30 20:55] LABS: Glucose,Whole Blood 154 mg/dL (75-99)
[2020-04-30] MEDS: ATORVASTATIN 10 MG TAB PO SCH (20:59)
[2020-05-01] MEDS: ACETAMINOPHEN TAB 325 MG TAB PO PRN ×2 (00:21→13:14)
[2020-05-01] MEDS: CEFEPIME 1 GM in SODIUM CHLORIDE 0.9% 50 ML IVPB SCH ×2 (05:07→17:47)
[2020-05-01 06:07] LABS: Glucose,Whole Blood 147 mg/dL (75-99)
[2020-05-01] MEDS: INSULIN ASPART (NovoLOG) 100 UNIT/ML VIAL SQ SCH ×4 (06:21→21:05)
[2020-05-01 08:24] LABS: Calcium 7.7 mg/dL (8.4-10.2); Magnesium 1.8 mg/dL (1.6-2.3); Potassium 4.1 mmol/L (3.5-5.1)
[2020-05-01] MEDS ORDERED: levETIRAcetam IV 1,500 MG in SALINE 1 100ML.BAG IVPB STA (08:44)
[2020-05-01] MEDS: CYANOCOBALAMIN 500 MCG TAB PO SCH (09:25)
[2020-05-01] MEDS: EZETIMIBE 10 MG TAB PO SCH (09:25)
[2020-05-01] MEDS: METOPROLOL TARTRATE 12.5 MG TAB PO SCH ×2 (09:25→21:05)
[2020-05-01] MEDS: APIXABAN 2.5 MG TABLET PO SCH ×2 (09:25→21:05)
[2020-05-01] MEDS: PRIMIDONE 50 MG TAB PO SCH ×2 (09:25→21:06)
[2020-05-01] MEDS: FOLIC ACID 1 MG TAB PO SCH (09:25)
[2020-05-01] MEDS: COLCHICINE 0.6 MG EACH PO SCH ×2 (09:25→21:05)
[2020-05-01] MEDS: FUROSEMIDE 40 MG TAB PO SCH ×2 (09:25→17:47)
--- NOTE | 2020-05-01 09:33 | P.PN ---
Subjective Patient is seen in follow-up for acute kidney injury on chronic kidney disease. Renal function stable. Maintained on oral Lasix. Has a Cuevas catheter. Nonoliguric. Currently on 2 L nasal cannula. Feels tired. No chest pain or shortness of breath. Vital signs are stable. General: The patient appeared well nourished and normally developed. HEENT: Head exam is unremarkable. Neck is without jugular venous distension. LUNGS: Breath sounds decreased. HEART: Rate and Rhythm are regular. ABDOMEN: Soft, nontender. EXTREMITITES: Trace edema. Chronic changes noted. Objective - Vital Signs Vital signs: Vital Signs Temp 98.2 F 05/01/20 03:28 Pulse 78 05/01/20 03:28 Resp 18 05/01/20 03:28 BP 135/74 05/01/20 03:28 Pulse Ox 97 05/01/20 03:28 Intake & Output 04/30/20 05/01/20 05/01/20 18:59 06:59 18:59 Intake Total 200 400 50 Output Total 600 1500 Balance -400 -1100 50 Weight 79 kg Intake: Intake, IV Titration 100 Amount Sodium Ferric Gluconat- 100 Sucrose 125 mg In Sodium Chloride 0.9% 100 ml @ 100 mls/hr IVPB Q24H [facility] Rx#:[id number] Oral 100 400 50 Output: Urine 600 1500 Uretheral (Cuevas) 1100 Other: Voiding Method Indwelling Catheter Indwelling Catheter - Labs CBC & Chem 7: 04/29/20 08:01 05/01/20 07:21 Labs: Abnormal Lab Results - Last 24 Hours (Table) 04/30/20 04/30/20 04/30/20 Range/Units 12:08 16:40 20:50 Sodium (137-145) mmol/L Carbon Dioxide (22-30) mmol/L BUN (7-17) mg/dL Creatinine (0.52-1.04) mg/dL Glucose (74-99) mg/dL POC Glucose (mg/dL) 156 H 133 H 154 H (75-99) mg/dL Calcium (8.4-10.2) mg/dL 05/01/20 05/01/20 Range/Units 05:57 07:21 Sodium 136 L (137-145) mmol/L Carbon Dioxide 32 H (22-30) mmol/L BUN 33 H (7-17) mg/dL Creatinine 1.22 H (0.52-1.04) mg/dL Glucose 146 H (74-99) mg/dL POC Glucose (mg/dL) 147 H (75-99) mg/dL Calcium 7.7 L (8.4-10.2) mg/dL Assessment and Plan Plan: Assessment: 1. Acute kidney injury secondary to ATN secondary to cardiorenal syndrome. Renal function improved. Creatinine stable at 1.22 today. 2. Hyperkalemia secondary to acute kidney injury. Blood sugar is not too elevated. No evidence of metabolic acidosis. She is not on any medications t hat would raise the potassium. Improved with medical management. 3. UTI with urine culture positive for E. coli maintained on antibiotics. 4. Chronic kidney disease stage III with baseline creatinine 1.2-1.5 secondary to diabetic kidney disease. 5. Acute on chronic systolic CHF with ejection fraction of 45-50% with severe tricuspid regurgitation and pulmonary hypertension. 6. Volume overload. Improving with diuresis. 7. Status post fall. 8. Anemia of chronic kidney disease. Severe iron deficiency noted. Status post IV iron. Plan: Maintain oral Lasix. Renal diet. Avoid nephrotoxins. Continue to monitor renal function and urine output. Repeat electrolytes in the morning. Add Aranesp.
[2020-05-01] MEDS ORDERED: DARBEPOETIN ALFA 40 MCG/0.4 ML SYRINGE SQ SCH (10:00)
[2020-05-01 12:32] LABS: Glucose,Whole Blood 171 mg/dL (75-99)
--- NOTE | 2020-05-01 14:13 | CDI ---
Documentation Clarification Form Date: 05/01/2020 01:56:20 PM From: Juanita Jarrett CCS, CCDS Admit Date: 04/25/2020 02:49:00 PM Patient Name: Digna Navarro Visit Number: [id number] Discharge Date: ATTENTION: The Clinical Documentation Specialists (CDI) and [facility] Coding Staff appreciate your assistance in clarifying documentation. Please respond to the clarification below the line at the bottom and electronically sign. The CDI & [facility] Coding staff will review the response and follow-up if needed. Please note: Queries are made part of the Legal Health Record. If you have any questions, please contact the author of this message via ITS. Dr. David Jim: Atrial Fibrillation is documented in the 04/30 Neurology Consult without further specificity. Per the 04/25 ED Note: Paroxysmal atrial flutter is documented. Per the 04/25 History & Physical and subsequent Progress note: Persistent atrial flutter is documented. Per the 04/30 Attending Progress Note: Paroxysmal atrial flutter is documented. History/Risk Factors: "Paroxysmal" Atrial Flutter on Eliquis, COPD, Hypertension, Hyperlipidemia, Systolic CHF, TIA, DM with neuropathy, CKD 3, CAD, NC status post CABG, Sleep Apnea, Tremors, Former smoker. Clinical Indicators: Patient presented to the ED on 04/25 after a fall in her home kitchen, hit her head, complained of dizziness afterwards. Admit with Head Injury, Hyperkalemia & Hypermagnesemia. Per H/P: EDWIN on Stage 3 CKD, Hyperkalemia, Fall with closed head injury, Acute cystitis, Persistent Atrial flutter, Bradycardia, Anemia of chronic disease, Thrombocytopenia & NDDM II. VS 04/25: T 97.6, P 53 - 52*; R 16, BP 148/57 - 165/56; PO 98 RA - 100 2Lnc EKG 04/25: R 49 Junctional rhythm, ST&T wave abnormality. Repeat EKG 04/25: R 49 Unusual P axis, possible ectopic atrial bradycardia, ST&T wave abnormality Treatment: Telemetry, Neuro assessment, Fall precautions, Bladder scan, Blood glucose monitoring, Insulin sl sc, po Antivert, IV Zofran, IV Shen Gluconate, po Kayexalate, IV Cefepime, IV fluid 1,000 mls @ 100 mls/hr q10, po Eliquis. Consults: Neuropathy & Nephrology (Cardiology is not consulted) In your professional opinion, can you please clarify the type of Atrial Fibrillation and/or Atrial Flutter, if known? Atrial Fibrillation, specified as: o Chronic/Permanent o Paroxysmal o Persistent o Other, please specify o Unable to determine Atrial Flutter, specified as: o Atypical o Type I o Type II o Typical o Other, please specify o Unable to determine (Last Revision: July 2017) paroxsysmal atrial fluter/fibrillation atrial flutter - unable to determine MTDD
[2020-05-01 16:53] LABS: Glucose,Whole Blood 137 mg/dL (75-99)
--- NOTE | 2020-05-01 18:34 | P.PN ---
Subjective Progress Note Date: 05/01/20 The patient was seen at beside and stated she stated she feels somewhat better today compared to yesterday. Per the patient nurse she continues to have tremor of the right arm more than the left and the also she has predominant right head tremor. Per the patient's nurse, the tremor subsides somewhat with distraction. Objective - Vital Signs Vital signs: Vital Signs Temp 98.2 F 05/01/20 08:00 Pulse 68 05/01/20 12:00 Resp 18 05/01/20 03:28 BP 144/66 05/01/20 12:00 Pulse Ox 97 05/01/20 12:00 Intake & Output 04/30/20 05/01/20 05/01/20 18:59 06:59 18:59 Intake Total 200 400 290 Output Total 600 1500 1100 Balance -400 -1100 -810 Weight 79 kg Intake: Intake, IV Titration 100 Amount Sodium Ferric Gluconat- 100 Sucrose 125 mg In Sodium Chloride 0.9% 100 ml @ 100 mls/hr IVPB Q24H [facility] Rx#:[id number] Oral 100 400 290 Output: Urine 600 1500 1100 Uretheral (Cuevas) 1100 500 Other: Voiding Method Indwelling Catheter Indwelling Catheter Indwelling Catheter # Voids 2 - Exam GENERAL: The patient is lying in bed and not in distress. HENT: Has constant head tremor throughout examination. NEUROLOGICAL: Limited because of patient's cooperation. Higher mental function: The patient is awake, alert, oriented to self, place and time. Patient is able to name objects correctly such as pen and watch. Patient is following some simple commands. No aphasia and no neglect. Cranial nerves: The pupils are round, equal and reactive to light and accommodation. Visual tate are full to confrontation. Extraocular movement:is intact throughout and no nystagmus. Facial sensation is normal to touch throughout. The facial strength is normal throughout. No dysarthria is noted. Tongue is midline and moves side to side without difficulty. Patient has oral tremor. Motor: Gait is deferred. The strength is 4+to 5- in bilateral upper extremities while hand obgyn hospitalist physician are 5- bilaterally. While lower extremities is able to lift above gravity but could not assess individual muscle because of patient's refusal because of pain. Normal tone and bulk. She has intention tremor of bilateral upper extremities and on few occasions had resting tremor (right>left). Cerebellum: Finger to nose is normal. Sensation: Normal to touch throughout. Reflexes (right/left): 2+ throughout bilateral upper extremities and unable to assess lower because of patient refusal because of pain. Plantars Could not be assessed because of cooperation. - Labs CBC & Chem 7: 04/29/20 08:01 05/01/20 07:21 Labs: Abnormal Lab Results - Last 24 Hours (Table) 04/29/20 04/30/20 05/01/20 Range/Units 21:20 20:50 05:57 Sodium (137-145) mmol/L Carbon Dioxide (22-30) mmol/L BUN (7-17) mg/dL Creatinine (0.52-1.04) mg/dL Glucose (74-99) mg/dL POC Glucose (mg/dL) 154 H 147 H (75-99) mg/dL Calcium (8.4-10.2) mg/dL RBC Folate 1,557 H (280 - 791) ng/mL 05/01/20 05/01/20 05/01/20 Range/Units 07:21 12:30 16:51 Sodium 136 L (137-145) mmol/L Carbon Dioxide 32 H (22-30) mmol/L BUN 33 H (7-17) mg/dL Creatinine 1.22 H (0.52-1.04) mg/dL Glucose 146 H (74-99) mg/dL POC Glucose (mg/dL) 171 H 137 H (75-99) mg/dL Calcium 7.7 L (8.4-10.2) mg/dL RBC Folate (280 - 791) ng/mL Assessment and Plan Assessment: This is an 80-year-old woman with signficant medical history presented emergency department on 04/25/2020 after a fall. She denied loosing consciousness with the fall. She was found to have acute UTI and hyperkalemia. She has worsening of her mentation during her stay. Encephalopathy seems due to multifactorial: Toxic metabolic encephalopathy (EDWIN on CKD), medication effect (benzo), underlying infection (UTI)--improving Tremor of the head, as well as right upper extremity more than the left and the extremities is mostly on today's exam was with intention. I fit the patient had more essential tremor. Regarding her diagnosis with Parkinson's/parkinsonian I disagree. Closed head injury from a fall History of TIA (02/08/2020 for left facial droop and dysarthria) Cervical spondylosis (Degenerative grade 1 anterior lithiasis at the C3-C4 and C6-C7) Atrial fibrillation status post cardioversion on anticoagulation Macrocytic anemia Acute on chronic kidney insufficiency---improving Acute Urinary tract infection diabetes Hyperkalemia---resolved Hyperlipidemia Hypertension Sleep apnea History of coronary artery disease status post bypass Peripheral vascular disease Congestive heart failure History of COPD Plan: EEG on 04/30/20: There are no focal slowing, clear epileptiform discharges or seizure on EEG. There is triphasic waves likely due to toxic-metabolic enceophalopathy. There were runs of diffuse delta activity and seems somewhat sharpy in contour without any evolution to seizure. Clinically: Predominately the patient had head tremor and right upper extremity tremor but on occasions she had no tremor with this sharp delta activity without evolution to seizure but uncertain if she did not have tremor. Because of obscuration of EEG from the tremors and uncertain epileptiform d ischarges. I loaded the patient with Keppra 1500 mg once and then start her on 500 mg 1 tab twice a day to see whether there is any benefits with these the tremor/jerks. I recommended the patient get an 8 hour EEG as an outpatient which [facility] providers as an outpatient. She can also seek another facility as an outpatient or possibly epilepsy monitoring unit to further evaluate whether she has any epileptiform discharges or seizures. If she cannot maybe consider getting serial EEGs at a local neurologist such as Dr. Pascal. I also recommend the patient to follow-up with a motor movement disorder (such as Dr. Dimitri bob at [facility] [place] If unable to follow-up with local neurologist. Upon reviewing patient's the home medication looks like the patient is on primidone 20 mg daily as well 100 mg daily at bedtime and was restared by primary team. I'm not sure if the patient patient has any benefit to this medication or not for now let's resume it and the all defer adjusting the medication to the outpatient neurologist. Patient last vitamin B12 is 2324 on 03/27/2020 and therefore did not need to be repeated. RBC folate: 1557 (high which is considered normal). Continue vitamin B12 500 g daily. I ordered ammonia level and came back <9. TSH on this admission is normal. Physical therapy and occupation therapy are consulted. Please avoid any benzodiazepine or narcotic which will effect the patient's the mentation. Currently the patient is on Eliquis 2.5mg 1 tab bid, Lipitor 10mg daily and Zetia 10mg daily. If possible please avoid any antipsychotic drugs. I'll defer the rest of the medical management to the primary team. The plan was discussed with the patient's nurse. Armin Hemphill MD Neuro-Hospitalist Time with Patient: Greater than 30
--- NOTE | 2020-05-01 19:34 | P.PN ---
Progress Note - Text Progress Note Date: 05/01/20 History of presenting complaint: This is a pleasant 80-year-old patient of Dr. Greg Kline. Chronic stable medical conditions include COPD, diabetes, hyperlipidemia, hypertension, parkinsonism, sleep apnea, coronary artery disease with prior bypass. CHF combined with systolic and diastolic dysfunction EF 45-50%, paroxysmal atrial flutter. Normally lives alone , uses a walker . Patient presented to the ER off or taking a fall and hitting her head to the ground. Computed tomography scan of the head and cervical spine showed no right posterior scalp contusion, no fracture. Also found to bradycardia and metoprolol dose was to reduce. Also acute kidney injury. Patient seems to also be delirious. Today-heart healthy Neurontin yesterday. Patient is more awake this morning. She states she likes to sleep in the morning typically at home. Does not sleep well at night. Started to eat some. Review of systems: constitutional, cardiovascular, GI, pulmonary. relevant finding as above Active Medications Acetaminophen (Acetaminophen Tab 325 Mg Tab) 650 mg PO Q6HR PRN PRN Reason: Fever and/ or Pain Last Admin: 05/01/20 13:14 Dose: 650 mg Documented by: Apixaban (Apixaban 2.5 Mg Tablet) 2.5 mg PO BID [facility], [facility] Last Admin: 05/01/20 09:25 Dose: 2.5 mg Documented by: Atorvastatin Calcium (Atorvastatin 10 Mg Tab) 10 mg PO HS [facility] Last Admin: 04/30/20 20:59 Dose: 10 mg Documented by: Colchicine (Colchicine 0.6 Mg Each) 0.6 mg PO BID [facility] Last Admin: 05/01/20 09:25 Dose: 0.6 mg Documented by: Cyanocobalamin (Cyanocobalamin 500 Mcg Tab) 500 mcg PO DAILY [facility] Last Admin: 05/01/20 09:25 Dose: 500 mcg Documented by: Darbepoetin Obed (Darbepoetin Obed 40 Mcg/0.4 Ml Syringe) 40 mcg SQ Q7D [facility] Last Admin: 05/01/20 17:47 Dose: 40 mcg Documented by: Ezetimibe (Ezetimibe 10 Mg Tab) 10 mg PO DAILY [facility] Last Admin: 05/01/20 09:25 Dose: 10 mg Documented by: Folic Acid (Folic Acid 1 Mg Tab) 1 mg PO DAILY [facility] Last Admin: 05/01/20 09:25 Dose: 1 mg Documented by: Furosemide (Furosemide 40 Mg Tab) 40 mg PO BID@0900,1600 [facility] Last Admin: 05/01/20 17:47 Dose: 40 mg Documented by: Gabapentin (Gabapentin 100 Mg Cap) 100 mg PO [facility] Cefepime HCl 1 gm/ Sodium (Chloride) 50 mls @ 12.5 mls/hr IVPB Q12H [facility], [facility] Last Admin: 05/01/20 17:47 Dose: 12.5 mls/hr Documented by: Insulin Aspart (Insulin Aspart (Novolog) 100 Unit/Ml Vial) 0 unit SQ [facility], [facility]; Protocol Last Admin: 05/01/20 17:48 Dose: 1 unit Documented by: Levetiracetam (Levetiracetam 500 Mg Tab) 500 mg PO Q12HR [facility] Metoprolol Tartrate (Metoprolol Tartrate 12.5 Mg Tab) 12.5 mg PO BID [facility] Last Admin: 05/01/20 09:25 Dose: 12.5 mg Documented by: Naloxone HCl (Naloxone 0.4 Mg/Ml 1 Ml Vial) 0.2 mg IV Q2M PRN PRN Reason: Opioid Reversal Ondansetron HCl (Ondansetron 4 Mg/2 Ml Vial) 4 mg IVP Q8HR PRN PRN Reason: Nausea And Vomiting Last Admin: 04/29/20 09:33 Dose: 4 mg Documented by: Primidone (Primidone 50 Mg Tab) 50 mg PO DAILY [facility] Last Admin: 05/01/20 09:25 Dose: 50 mg Documented by: Primidone (Primidone 50 Mg Tab) 100 mg PO [facility] Last Admin: 04/30/20 21:00 Dose: 100 mg Documented by: Physical examination: VITAL SIGNS: 98.2, 73, 16, 157/69, 95% on 2 L GENERAL: Sitting up in a chair reclined, eating more awake today EYES: Pupils equal. Conjunctiva normal. HEENT: External appearance of nose and ears normal, Scant scalp hair NECK: JVD unable to assess; masses not palpable. HEART: Irregular heart beat; edema present LUNGS: Respiratory rate normal, diminished breath sounds ABDOMEN: Soft, nontender, liver spleen not palpable, no masses palpable. PSYCH: Answering questions DERMATOLOGICAL: Dry skin, with dystrophic nails. INVESTIGATIONS, reviewed in the clinical context: May 01: Potassium 4.1 creatinine 1.2 to EEG-suggestion of moderate encephalopathy. No epileptiform discharges. White count 6.3 hemoglobin 9.8 platelets 145 potassium 4.2 bun 33 creatinine 1.25 Admitting labs: Bun 71 and creatinine 1.85 EKG-sinus rhythm with a rate of 49 some flipped T waves Computed tomography scan of the brain-chronic changes. Cephalic hematoma over the posterior parietal calvarium. Computed tomography scan had cervical spine-negative for fracture Previous testing: Bun 54 creatinine 1.58 on 03/24/2020 Assessment: -Blunt head injury with a fall on presentation. No fracture noted. Possible concussion. -Acute kidney injury likely prerenal. Admission creatinine was 1.98 down to 1.25 -Acute severe hyperkalemia from kidney injury. . Corrected -Paroxysmal atrial flutter,, currently in sinus rhythm -Bilateral lower extremity xerosis -Secondary pulmonary hypertension-severe -Moderate severe tricuspid regurgitation -Diabetes mellitus type 2 with diabetic peripheral neuropathy -Obesity BMI 39 -Hyperlipidemia -Essential hypertension -Coronary artery disease with prior history of bypass -Chronic kidney disease stage III from diabetic nephropathy and hypertensive nephrosclerosis. -Chronic gait dysfunction does use a walker -Urine outflow obstruction -Peripheral arterial disease-stenting of the right superficial femoral artery. For intermittent claudication by Dr. Mcmullen -Iron deficient anemia.-Receiving IV iron. -Painful peripheral neuropathy on Neurontin and -acute delirium-improving. -Acute UTI with cystitis from Pseudomonas and E. coli Plan: Resume patient's Neurontin 100 mg at bedtime starting tonight. ASCUS with the patient. Other medications to continue. Encourage oral intake.
[2020-05-01 20:54] LABS: Glucose,Whole Blood 255 mg/dL (75-99)
[2020-05-01] MEDS ORDERED: GABAPENTIN 100 MG CAP PO SCH (21:00)
[2020-05-01] MEDS: ATORVASTATIN 10 MG TAB PO SCH (21:05)
[2020-05-01] MEDS: levETIRAcetam 500 MG TAB PO SCH (21:05)
[2020-05-02 06:02] LABS: Glucose,Whole Blood 138 mg/dL (75-99)
[2020-05-02] MEDS: CEFEPIME 1 GM in SODIUM CHLORIDE 0.9% 50 ML IVPB SCH (06:13)
[2020-05-02] MEDS: INSULIN ASPART (NovoLOG) 100 UNIT/ML VIAL SQ SCH ×2 (06:14→12:36)
[2020-05-02] MEDS: FOLIC ACID 1 MG TAB PO SCH (08:37)
[2020-05-02] MEDS: PRIMIDONE 50 MG TAB PO SCH (08:37)
[2020-05-02] MEDS: levETIRAcetam 500 MG TAB PO SCH (08:37)
[2020-05-02] MEDS: METOPROLOL TARTRATE 12.5 MG TAB PO SCH (08:37)
[2020-05-02] MEDS: CYANOCOBALAMIN 500 MCG TAB PO SCH (08:37)
[2020-05-02] MEDS: FUROSEMIDE 40 MG TAB PO SCH (08:37)
[2020-05-02] MEDS: COLCHICINE 0.6 MG EACH PO SCH (08:38)
[2020-05-02] MEDS: APIXABAN 2.5 MG TABLET PO SCH (08:38)
[2020-05-02] MEDS: EZETIMIBE 10 MG TAB PO SCH (08:38)
--- NOTE | 2020-05-02 11:30 | P.PN ---
Subjective Patient is seen in follow-up for acute kidney injury on chronic kidney disease. Renal function stable. Maintained on oral Lasix. Has a Cuevas catheter. Nonoliguric. Currently on 2 L nasal cannula. Hemodynamically stable. No changes overnight. Vital signs are stable. General: The patient appeared well nourished and normally developed. HEENT: Head exam is unremarkable. Neck is without jugular venous distension. LUNGS: Breath sounds decreased. HEART: Rate and Rhythm are regular. ABDOMEN: Soft, nontender. EXTREMITITES: Trace edema. Chronic changes noted. Objective - Vital Signs Vital signs: Vital Signs Temp 97.4 F L 05/02/20 08:35 Pulse 80 05/02/20 08:35 Resp 18 05/02/20 08:35 BP 128/76 05/02/20 08:35 Pulse Ox 98 05/02/20 08:35 Intake & Output 05/01/20 05/02/20 05/02/20 18:59 06:59 18:59 Intake Total 530 650 420 Output Total 1300 500 Balance -770 150 420 Weight 82 kg Intake: Intake, IV Titration 50 Amount Cefepime 1 gm In Sodium 50 Chloride 0.9% 50 ml @ 12. 5 mls/hr IVPB Q12H [facility] Rx #:[id number] Oral 530 600 420 Output: Urine 1300 500 Uretheral (Cuevas) 500 Other: Voiding Method Indwelling Catheter Indwelling Catheter Indwelling Catheter # Voids 2 # Bowel Movements 1 - Labs CBC & Chem 7: 04/29/20 08:01 05/01/20 07:21 Labs: Abnormal Lab Results - Last 24 Hours (Table) 04/29/20 05/01/20 05/01/20 Range/Units 21:20 12:30 16:51 POC Glucose (mg/dL) 171 H 137 H (75-99) mg/dL RBC Folate 1,557 H (280 - 791) ng/mL 05/01/20 05/02/20 Range/Units 20:52 06:00 POC Glucose (mg/dL) 255 H 138 H (75-99) mg/dL RBC Folate (280 - 791) ng/mL Assessment and Plan Plan: Assessment: 1. Acute kidney injury secondary to ATN secondary to cardiorenal syndrome. Renal function improved. Creatinine stable at 1.22 as of yesterday. 2. Hyperkalemia secondary to acute kidney injury. Blood sugar is not too elevated. No evidence of metabolic acidosis. She is not on any medications that would raise the potassium. Improved with medical management. 3. UTI with urine culture positive for E. coli maintained on antibiotics. 4. Chronic kidney disease stage III with baseline creatinine 1.2-1.5 secondary to diabetic kidney disease. 5. Acute on chronic systolic CHF with ejection fraction of 45-50% with severe tricuspid regurgitation and pulmonary hypertension. 6. Volume overload. Improving with diuresis. 7. Status post fall. 8. Anemia of chronic kidney disease. Severe iron deficiency noted - status post IV iron. Maintained on Aranesp. Plan: Maintain oral Lasix. Avoid nephrotoxins. Continue to monitor renal function and urine output. Repeat electrolytes in the morning.
[2020-05-02 11:36] VITALS: BP 133/75; PULSE 61; RESP 15; TEMP 97.6
[2020-05-02 11:44] LABS: Glucose,Whole Blood 200 mg/dL (75-99)
[2020-05-02 13:20] VITALS: BMI 33.0
--- NOTE | 2020-05-02 13:38 | P.DS ---
Providers Date of admission: 04/25/20 14:49 Expected date of discharge: 05/02/20 Attending physician: David Jim Consults: 04/26/20 07:44 Consult Physician Routine Consulting Provider: Digna Roth Consult Reason/Comments: hyperkalemia Do you want consulting provider notified?: Yes 04/29/20 15:12 Consult Physician Routine Consulting Provider: Armin Hemphill Consult Reason/Comments: Worsening confusion, parkinsonism? Do you want consulting provider notified?: Yes Primary care physician: [facility] Course: History of presenting complaint: This is a pleasant 80-year-old patient of Dr. Greg Kline. Chronic stable medical conditions include COPD, diabetes, hyperlipidemia, hypertension, parkinsonism, sleep apnea, coronary artery disease with prior bypass. CHF combined with systolic and diastolic dysfunction EF 45-50%, paroxysmal atrial flutter. Normally lives alone , uses a walker . Patient presented to the ER off or taking a fall and hitting her head to the ground. Computed tomography scan of the head and cervical spine showed no right posterior scalp contusion, no fracture. Also found to bradycardia and metoprolol dose was to reduce. Also acute kidney injury. Patient seems to also be delirious. Possible concussion. Creatinine had bumped up to 1.98 on presentation. Down to 1.2 Today-sitting up in a chair. Awake. Did tolerate a diet. Discharge care was discussed in detail with the patient. Questions answered. Quite close to baseline. Discussion and discharge planning more than 35 minutes Consultants: Dr. Arriola from neurology Dr. Inman from nephrology Physical examination: VITAL SIGNS: 97.6, 61, 15, 133/75, 96% on 2 L GENERAL: Sitting up in a chair , comfortable, awake EYES: Pupils equal. Conjunctiva normal. HEENT: External appearance of nose and ears normal, Scant scalp hair NECK: JVD unable to assess; masses not palpable. HEART: Irregular heart beat; edema present LUNGS: Respiratory rate normal, diminished breath sounds ABDOMEN: Soft, nontender, liver spleen not palpable, no masses palpable. PSYCH: Alert and oriented 3 DERMATOLOGICAL: Dry skin, with dystrophic nails. INVESTIGATIONS, reviewed in the clinical context: May 01: Potassium 4.1 creatinine 1.2 to EEG-suggestion of moderate encephalopathy. No epileptiform discharges. White count 6.3 hemoglobin 9.8 platelets 145 potassium 4.2 bun 33 creatinine 1.25 Admitting labs: Bun 71 and creatinine 1.85 EKG-sinus rhythm with a rate of 49 some flipped T waves Computed tomography scan of the brain-chronic changes. Cephalic hematoma over the posterior parietal calvarium. Computed tomography scan had cervical spine-negative for fracture Previous testing: Bun 54 creatinine 1.58 on 03/24/2020 Assessment: -Blunt head injury with a fall on presentation. No fracture noted. Possible concussion. -Acute kidney injury likely prerenal. Admission creatinine was 1.98 down to 1.2 -Acute severe hyperkalemia from kidney injury. . Corrected -Paroxysmal atrial flutter,, currently in sinus rhythm -Bilateral lower extremity xerosis -Secondary pulmonary hypertension-severe -Moderate severe tricuspid regurgitation -Diabetes mellitus type 2 with diabetic peripheral neuropathy -Obesity BMI 39 -Hyperlipidemia -Essential hypertension -Coronary artery disease with prior history of bypass -Chronic kidney disease stage III from diabetic nephropathy and hypertensive nephrosclerosis. -Chronic gait dysfunction does use a walker -Urine outflow obstruction -Peripheral arterial disease-stenting of the right superficial femoral artery. For intermittent claudication by Dr. Mcmullen -Iron deficient anemia.-Receiving IV iron. -Painful peripheral neuropathy on Neurontin -acute delirium-improving. -Acute UTI with cystitis from Pseudomonas and E. coli-computed course of this IV cefepime Disposition: F/[place] Patient Condition at Discharge: Stable Plan - Discharge Summary Discharge Rx Participant: No New Discharge Prescriptions: New Darbepoetin Obed [Aranesp] 40 mcg SQ Q7D syringe levETIRAcetam [Keppra] 500 mg PO Q12HR tab Metoprolol Tartrate [Lopressor] 12.5 mg PO BID tab INSULIN ASPART (NovoLOG) [NovoLOG (formulary)] 0 unit SQ ACHS vial Acetaminophen Tab [Tylenol] 650 mg PO Q6HR PRN tab PRN Reason: Fever And/ Or Pain Continue Ezetimibe [Zetia] 10 mg PO DAILY Lovastatin [Mevacor] 10 mg PO HS Primidone [Mysoline] 100 mg PO HS Primidone [Mysoline] 50 mg PO DAILY Calcium Carb-Vit D 500Mg-5Mcg [Oscal 500+D 5 Mcg (200 Iu)] 1 tab PO TID Cyanocobalamin [Vitamin B-12] 500 mcg PO DAILY Apixaban [Eliquis] 2.5 mg PO BID Folic Acid 1 mg PO DAILY Magnesium Oxide [Mag-Ox] 400 mg PO DAILY tab Psyllium Husk 100% [Metamucil Packet] 6 gm PO DAILY packet SILVER sulfADIAZINE Cream [Silvadene 1% Cream] 1 applic TOPICAL BID #1 gram sitaGLIPtin [Januvia] 50 mg PO DAILY Furosemide [Lasix] 40 mg PO BID Colchicine [Colcrys] 0.6 mg PO DAILY #0 Gabapentin [Neurontin] 100 mg PO BID #6 cap Discontinued Metoprolol Succinate (ER) [Toprol XL] 50 mg PO DAILY Discharge Medication List Ezetimibe [Zetia] 10 mg PO DAILY 11/20/13 [History] Lovastatin [Mevacor] 10 mg PO HS 11/20/13 [History] Primidone [Mysoline] 50 mg PO DAILY 01/25/19 [History] Primidone [Mysoline] 100 mg PO HS 01/25/19 [History] Apixaban [Eliquis] 2.5 mg PO BID 02/17/20 [History] Calcium Carb-Vit D 500Mg-5Mcg [Oscal 500+D 5 Mcg (200 Iu)] 1 tab PO TID 02/17/20 [History] Cyanocobalamin [Vitamin B-12] 500 mcg PO DAILY 02/17/20 [History] Folic Acid 1 mg PO DAILY 02/17/20 [History] Magnesium Oxide [Mag-Ox] 400 mg PO DAILY tab 03/25/20 [Rx] Psyllium Husk 100% [Metamucil Packet] 6 gm PO DAILY packet 03/25/20 [Rx] SILVER sulfADIAZINE Cream [Silvadene 1% Cream] 1 applic TOPICAL BID #1 gram 03/25/20 [Rx] Furosemide [Lasix] 40 mg PO BID 04/25/20 [History] sitaGLIPtin [Januvia] 50 mg PO DAILY 04/25/20 [History] Acetaminophen Tab [Tylenol] 650 mg PO Q6HR PRN tab 05/02/20 [Rx] Colchicine [Colcrys] 0.6 mg PO DAILY #0 05/02/20 [Rx] Darbepoetin Obed [Aranesp] 40 mcg SQ Q7D syringe 05/02/20 [Rx] Gabapentin [Neurontin] 100 mg PO BID #6 cap 05/02/20 [Rx] INSULIN ASPART (NovoLOG) [NovoLOG (formulary)] 0 unit SQ ACHS vial 05/02/20 [Rx] Metoprolol Tartrate [Lopressor] 12.5 mg PO BID tab 05/02/20 [Rx] levETIRAcetam [Keppra] 500 mg PO Q12HR tab 05/02/20 [Rx] Follow up Appointment(s)/Referral(s): Abel Mathews DO [STAFF PHYSICIAN] - 1-2 Days Greg Kline MD [Primary Care Provider] - As Needed Sukhi Inman DO [STAFF PHYSICIAN] - 3 Weeks Patient Instructions/Handouts: Fall Prevention for Older Adults (ED) Plan of Treatment: DC Esmernesp. Change to Procrit 10,000 units sub q weekly. Hold if hgb greater than 10.[address] Inman
--- NOTE | 2020-05-02 15:22 | P.PN ---
Subjective Progress Note Date: 05/02/20 The patient was seen at bedside today and she stated that she's doing better today compared to yesterday. According to the patient's nurse she felt like her tremors were much improved. She stated that she had Tremors of Her Hand out for Years. Regarding the Head Tremor She Stated That the Happened during This Admission According to Patient. She Also Stated That She Has Tremors Also for Her Legs. She Said That the the Result of Her fall was because of the tremors in her legs. Patient stated that she lives home alone but has somebody that checks up on her. Objective - Vital Signs Vital signs: Vital Signs Temp 97.6 F 05/02/20 11:35 Pulse 61 05/02/20 11:35 Resp 15 05/02/20 11:35 BP 133/75 05/02/20 11:35 Pulse Ox 96 05/02/20 11:35 Intake & Output 05/01/20 05/02/20 05/02/20 18:59 06:59 18:59 Intake Total 530 650 600 Output Total 1300 500 200 Balance -770 150 400 Weight 82 kg 82 kg Intake: Intake, IV Titration 50 Amount Cefepime 1 gm In Sodium 50 Chloride 0.9% 50 ml @ 12. 5 mls/hr IVPB Q12H [facility] Rx #:[id number] Oral 530 600 600 Output: Urine 1300 500 200 Uretheral (Cuevas) 500 Other: Voiding Method Indwelling Catheter Indwelling Catheter Indwelling Catheter # Voids 2 # Bowel Movements 1 1 - Exam GENERAL: The patient is lying in bed and not in distress. HENT: Has mild head tremor (seems improved compared to yesterday). NEUROLOGICAL: Limited because of patient's cooperation. Higher mental function: The patient is awake, alert, oriented to self, place and time. Patient is able to name objects correctly such as pen and watch. Patient is following some simple commands. No aphasia and no neglect. Cranial nerves: The pupils are round, equal and reactive to light and accommodation. Visual tate are full to confrontation. Extraocular movement: is intact throughout and no nystagmus. Facial sensation is normal to touch throughout. The facial strength is normal throughout. No dysarthria is noted. Tongue is midline and moves side to side without difficulty. Patient has oral tremor. Motor: Gait is deferred. The strength is 4+to 5- in bilateral upper extremities while hand cement mason highways and streets are 5- bilaterally. While lower extremities is able to lift above gravity but could not assess individual muscle because of patient's refusal because of pain. Normal tone and bulk. She has intention tremor on reaching the objects of bilateral upper extremities. Cerebellum: Finger to nose is normal beside the tremor. But no dysmetria or ataxia. Sensation: Normal to touch throughout. Reflexes (right/left): 2+ throughout bilateral upper extremities and unable to assess lower because of patient refusal because of pain. Plantars Could not be assessed because of cooperation. - Labs CBC & Chem 7: 04/29/20 08:01 05/01/20 07:21 Labs: Abnormal Lab Results - Last 24 Hours (Table) 05/01/20 05/01/20 05/02/20 Range/Units 16:51 20:52 06:00 POC Glucose (mg/dL) 137 H 255 H 138 H (75-99) mg/dL 05/02/20 Range/Units 11:40 POC Glucose (mg/dL) 200 H (75-99) mg/dL Assessment and Plan Assessment: This is an 80-year-old woman with signficant medical history presented emergency department on 04/25/2020 after a fall. She denied loosing consciousness with the fall. She was found to have acute UTI and hyperkalemia. She has worsening of her mentation during her stay. Encephalopathy seems due to multifactorial: Toxic metabolic encephalopathy (EDWIN on CKD), medication effect (benzo), underlying infection (UTI)--resolved Tremor of the head, as well as right upper extremity more than the left and the extremities is mostly on today's exam was with intention. I fit the patient had more essential tremor. Regarding her diagnosis with Parkinson's/parkinsonian I disagree. Closed head injury from a fall History of TIA (02/08/2020 for left facial droop and dysarthria) Cervical spondylosis (Degenerative grade 1 anterior lithiasis at the C3-C4 and C6-C7) Atrial fibrillation status post cardioversion on anticoagulation Macrocytic anemia Acute on chronic kidney insufficiency---improving Acute Urinary tract infection diabetes Hyperkalemia---resolved Hyperlipidemia Hypertension Sleep apnea History of coronary artery disease status post bypass Peripheral vascular disease Congestive heart failure History of COPD Plan: EEG on 04/30/20: There are no focal slowing, clear epileptiform discharges or seizure on EEG. There is triphasic waves likely due to toxic-metabolic enceophalopathy. There were runs of diffuse delta activity and seems somewhat sharpy in contour without any evolution to seizure. Clinically: Predominately the patient had head tremor and right upper extremity tremor but on occasions she had no tremor with this sharp delta activity without evolution to seizure but uncertain if she did not have tremor. Because of obscuration of EEG from the tremors and uncertain epileptiform discharges. I started the patient on Keppra 500mg 1 tab bid. I felt patient seems somewhat better after medication but unsure if coincidence or actually benefit from it. I recommended the patient get an 8 hour EEG as an outpatient which [facility] providers as an outpatient. She can also seek another facility as an outpatient or possibly epilepsy monitoring unit to further evaluate whether she has any epileptiform discharges or seizures. If she cannot maybe consider getting serial EEGs at a local neurologist such as Dr. Pascal. I also recommend the patient to follow-up with a motor movement disorder (such as Dr. Dimitri bob at [facility] [place]). If unable to follow-up with local neurologist. Upon reviewing patient's the home medication looks like the patient is on primidone 20 mg daily as well 100 mg daily at bedtime and was restared by primary team. I'm not sure if the patient patient has any benefit to this medication or not for now let's resume it and the all defer adjusting the medication to the outpatient neurologist. Consider starting the patient on beta [place]. Patient last vitamin B12 is 2324 on 03/27/2020 and therefore did not need to be repeated. RBC folate: 1557 (high which is considered normal). Continue vitamin B12 500 g daily. I ordered ammonia level and came back <9. TSH on this admission is normal. Physical therapy and occupation therapy are consulted. Please avoid any benzodiazepine or narcotic which will effect the patient's the mentation. Currently the patient is on Eliquis 2.5mg 1 tab bid, Lipitor 10mg daily and Zetia 10mg daily. If possible please avoid any antipsychotic drugs. I'll defer the rest of the medical management to the primary team. I notified the patient that I don't feel safe for her to live by herself on multiple occasions because of the falls. The patient needs to follow-up with a neurologist as outpatient within 1-2 weeks. There is no further neurological work-up needed at this time. The plan was discussed with the patient's nurse. Armin Hemphill MD Neuro-Hospitalist Time with Patient: Less than 30
== END 2020-05-02 15:14 | DRG 682 ==
LOC: EC 10:52 → 3SCARD 14:49
PROVIDERS: ADMIT Hospitalist; ATTEND Hospitalist
DX: N17.0 Acute kidney failure with tubular necrosis (principal); G92 Toxic encephalopathy; I50.43 Acute on chronic combined systolic (congestive) and diastolic (congestive) heart failure; I13.0 Hypertensive heart and chronic kidney disease with heart failure and stage 1 through stage 4 chronic kidney disease, or unspecified chronic kidney disease; N30.00 Acute cystitis without hematuria; I48.92 Unspecified atrial flutter; Z16.19 Resistance to other specified beta lactam antibiotics; Z20.822 Contact with and (suspected) exposure to COVID-19; D69.6 Thrombocytopenia, unspecified; I27.22 Pulmonary hypertension due to left heart disease; E83.41 Hypermagnesemia; D63.1 Anemia in chronic kidney disease; E11.42 Type 2 diabetes mellitus with diabetic polyneuropathy; E11.22 Type 2 diabetes mellitus with diabetic chronic kidney disease; G20 Parkinson's disease; Z99.81 Dependence on supplemental oxygen; E11.51 Type 2 diabetes mellitus with diabetic peripheral angiopathy without gangrene; J44.9 Chronic obstructive pulmonary disease, unspecified; I48.0 Paroxysmal atrial fibrillation; N18.31 Chronic kidney disease, stage 3a; E87.5 Hyperkalemia; S00.03XA Contusion of scalp, initial encounter; E78.5 Hyperlipidemia, unspecified; I25.10 Atherosclerotic heart disease of native coronary artery without angina pectoris; G47.30 Sleep apnea, unspecified; M10.9 Gout, unspecified; E66.9 Obesity, unspecified; I07.1 Rheumatic tricuspid insufficiency; M47.812 Spondylosis without myelopathy or radiculopathy, cervical region; N13.9 Obstructive and reflux uropathy, unspecified; B96.20 Unspecified Escherichia coli [E. coli] as the cause of diseases classified elsewhere; B96.5 Pseudomonas (aeruginosa) (mallei) (pseudomallei) as the cause of diseases classified elsewhere; R26.9 Unspecified abnormalities of gait and mobility; G25.0 Essential tremor; I25.2 Old myocardial infarction; W18.30XA Fall on same level, unspecified, initial encounter; Z71.3 Dietary counseling and surveillance; Z68.33 Body mass index [BMI] 33.0-33.9, adult; Z79.899 Other long term (current) drug therapy; Z79.01 Long term (current) use of anticoagulants; Z79.84 Long term (current) use of oral hypoglycemic drugs; Z95.1 Presence of aortocoronary bypass graft; Z95.828 Presence of other vascular implants and grafts; Z86.73 Personal history of transient ischemic attack (TIA), and cerebral infarction without residual deficits; Z90.49 Acquired absence of other specified parts of digestive tract; Z90.710 Acquired absence of both cervix and uterus; Z98.890 Other specified postprocedural states; Z87.891 Personal history of nicotine dependence; Z88.5 Allergy status to narcotic agent; Z88.8 Allergy status to other drugs, medicaments and biological substances; Z82.49 Family history of ischemic heart disease and other diseases of the circulatory system; Z82.5 Family history of asthma and other chronic lower respiratory diseases; Z80.0 Family history of malignant neoplasm of digestive organs; Z80.3 Family history of malignant neoplasm of breast; Z80.1 Family history of malignant neoplasm of trachea, bronchus and lung
CPT/HCPCS: 36415; 36600; 51798; 70450; 71046; 72125; 76770; 80048; 80053; 81001; 82140; 82550; 82728; 82747; 82805; 83540; 83550; 83605; 83735; 83880; 84132; 84443; 84484; 85025; 85610; 85730; 87077; 87086; 87186; 87635; 93005; 94760; 95816; 96365; 96366; 96367; 96368; 96375; 96376; 99285

== ENCOUNTER → 2020-06-26 | Outpatient (CLI) | payer MEDICARE, OTHER ==
--- NOTE | 2020-06-27 11:19 | NM ---
EXAMINATION TYPE: NM DatScan Brain SPECT DATE OF EXAM: 06/26/2020 COMPARISON: NONE HISTORY: Parkinson's disease TECHNIQUE: 10 drops of Lugol's solution was administered 1 hour prior to injection as a thyroid bloc jared agent. After the administration of 4.5 mCi I-123 Ioflupane DaTscan. Images obtained 3.25 hours post injection. SPECT images of the brain were acquired with axial and coronal reconstructions. FINDINGS: The axial SPECT images demonstrate increased background activity and reduced activity withi n the bilateral striata. IMPRESSION: Abnormal appearance highly suggestive of idiopathic Parkinson's disease or Parkinsonian s yndrome.
== END ==
LOC: RADNMMAIN 11:00
PROVIDERS: ATTEND Psychiatry & Neurology Neurology
DX: G20 Parkinson's disease (principal)
CPT/HCPCS: 78803; A9584

== ENCOUNTER 2021-02-05 12:29 | Inpatient (IN) | payer MEDICARE, OTHER ==
--- NOTE | 2021-02-05 13:46 | XR ---
AP pelvis HISTORY: Pain Single frontal view of the pelvis submitted and correlated to prior exam 03/21/2020 There are vascular calcifications noted within the pelvis. Degenerative disc changes present in the v isualized lower lumbar spine. Bone mineralization is reduced. Joint spaces and alignment show a simil ar appearance. No fracture or dislocation evident. IMPRESSION: No significant interval change, no acute abnormality is evident, additional findings abov e.
--- NOTE | 2021-02-05 13:50 | XR ---
Lumbar spine HISTORY: Pain 3 views of the lumbar spine, correlation CT scan 07/28/2016 Lumbar vertebral bodies show preserved height and alignment. Bone mineralization is reduced. Sclerosi s is present in the posterior elements. There is multilevel spondylosis. Loss of disc height present at L4-5, L5-S1. Atherosclerotic vascular calcifications are noted, the aorta is likely ectatic. IMPRESSION: Osteopenia, degenerative disc disease, facet arthropathy and additional findings above
--- NOTE | 2021-02-05 14:33 | US ---
EXAMINATION TYPE: US venous doppler duplex LE RT DATE OF EXAM: 02/05/2021 2:16 PM COMPARISON: NONE CLINICAL HISTORY: pain, previous stent. pain right leg for 2 weeks. patient on blood thinner. history of arterial disease SIDE PERFORMED: Right TECHNIQUE: The lower extremity deep venous system is examined utilizing real time linear array sonog denisha with graded compression, doppler sonography and color-flow sonography. VESSELS IMAGED: Common Femoral Vein Deep Femoral Vein Greater Saphenous Vein * Femoral Vein Popliteal Vein Small Saphenous Vein * Proximal Calf Veins (* superficial vessels) Right Leg: technical limitations due to patient's body habitus and patient unable to rotate leg into adequate position. difficult to visualize popliteal vein. no evidence of DVT as visualized IMPRESSION: No definite evidence for DVT.
[2021-02-05] MEDS ORDERED: NALOXONE 0.4 MG/ML 1 ML VIAL IV PRN (16:18)
[2021-02-05] MEDS ORDERED: ACETAMINOPHEN TAB 325 MG TAB PO PRN (16:18)
[2021-02-05] MEDS ORDERED: HYDROcodone/APAP 5-325MG 1 EACH TAB PO PRN (16:18)
--- NOTE | 2021-02-05 16:18 | ED ---
Extremity Problem HPI - General Chief complaint: Extremity Problem,Nontraumatic Stated complaint: R leg pain Time Seen by Provider: 02/05/21 12:38 Source: patient, family, EMS, RN notes reviewed, old records reviewed Mode of arrival: EMS Limitations: physical limitation - History of Present Illness Initial comments: Patient is a 80-year-old female with history of Parkinson's, COPD, diabetes, presenting to the emergency department via EMS with complains of significant right leg pain as well as bilateral hip and low back pain. She denies any falls or trauma. She states she normally walks with her walker at home, she does have a scooter that she uses occasionally. States over the last week and a half, her pain has been increasing and she has been having a real trouble getting around her house. She states she was not able to eat anything yesterday or today because she was not able to get up and cook something. She had to have a family friend come help her to the restroom today, they convinced her to come to the hospital for evaluation. She denies any previous surgeries of her back, hips or legs. She does admit to a right lower leg stent placement earlier this year. She is on blood thinners. She denies any numbness and tingling into her extremities, no bowel or bladder incontinence. She states she does have history of gout, she was without her medication for about a week but is back on it. She denies any fevers or chills. She denies any chest pain or shortness of breath. She has no further complaints. Patient's vital signs are stable upon arrival. - Related Data Home Medications Medication Instructions Recorded Confirmed Ezetimibe [Zetia] 10 mg PO DAILY 11/20/13 02/05/21 Lovastatin [Mevacor] 10 mg PO HS 11/20/13 02/05/21 Apixaban [Eliquis] 2.5 mg PO BID 02/17/20 02/05/21 Calcium Carb-Vit D 500Mg-5Mcg 1 tab PO TID 02/17/20 02/05/21 [Oscal 500+D 5 Mcg (200 Iu)] Cyanocobalamin [Vitamin B-12] 500 mcg PO DAILY 02/17/20 02/05/21 Folic Acid 1 mg PO DAILY 02/17/20 02/05/21 Furosemide [Lasix] 40 mg PO DAILY 04/25/20 02/05/21 sitaGLIPtin [Januvia] 50 mg PO DAILY 04/25/20 02/05/21 Carbidopa-Levodopa 25-100 mg 1 tab PO TID 02/05/21 02/05/21 [Sinemet 25-100] Colchicine [Colcrys] 0.6 mg PO BID 02/05/21 02/05/21 Denosumab [Prolia] 60 mg SQ Q180D 02/05/21 02/05/21 Docusate [Colace] 100 mg PO BID 02/05/21 02/05/21 Epoetin Obed [Procrit] 10,000 unit SQ TH 02/05/21 02/05/21 Ferrous Sulfate [Feosol] 325 mg PO DAILY 02/05/21 02/05/21 Gabapentin [Neurontin] 100 mg PO BID@0900,1500 02/05/21 02/05/21 Gabapentin [Neurontin] 200 mg PO HS 02/05/21 02/05/21 Metoprolol Tartrate [Lopressor] 12.5 mg PO BID 02/05/21 02/05/21 Previous Rx's Medication Instructions Recorded SILVER sulfADIAZINE Cream 1 applic TOPICAL BID #1 gram 03/25/20 [Silvadene 1% Cream] Allergies Allergy/AdvReac Type Severity Reaction Status Date / Time albuterol [From DuoNeb] AdvReac Nausea Verified 02/05/21 14:35 cortisone AdvReac PAIN Verified 02/05/21 14:35 hydrocodone AdvReac Nausea Verified 02/05/21 14:35 ipratropium [From DuoNeb] AdvReac Nausea Verified 02/05/21 14:35 procaine HCl [From Novocain] AdvReac pain Verified 02/05/21 14:35 allergy medicines AdvReac "dries me Uncoded 02/17/20 10:00 out, bloody noses,generalized pain" Review of Systems ROS Statement: Those systems with pertinent positive or pertinent negative responses have been documented in the HPI. ROS Other: All systems not noted in ROS Statement are negative. Past Medical History Past Medical History: COPD, Diabetes Mellitus, Hyperlipidemia, Hypertension, Myocardial Infarction (DC), Sleep Apnea/CPAP/BIPAP Additional Past Medical History / Comment(s): tremors,NO left arm blood draw or blood pressure(vessel harvested for CABG), blockages in angelica legs, Coonstipation, gout, PAD Last Myocardial Infarction Date:: 1999 History of Any Multi-Drug Resistant Organisms: None Reported Past Surgical History: Appendectomy, Coronary Bypass/CABG, Heart Catheterization, Hysterectomy, Tonsillectomy Additional Past Surgical History / Comment(s): angiogram. Right neck lymphnode removal Past Anesthesia/Blood Transfusion Reactions: No Reported Reaction Past Psychological History: No Psychological Hx Reported Smoking Status: Former smoker Past Alcohol Use History: None Reported Past Drug Use History: None Reported - Past Family History Mother Family Medical History: COPD, Myocardial Infarction (DC) Brother(s) Family Medical History: Cancer Additional Family Medical History / Comment(s): LUNG CANCER Son(s) Family Medical History: Cancer Additional Family Medical History / Comment(s): COLON CANCER Sister(s) Family Medical History: Cancer Additional Family Medical History / Comment(s): (2) SISTERS HAD BREAST CANCER. General Exam - General Exam Comments Initial Comments: GENERAL: Patient is well-developed and well-nourished. Patient is nontoxic and in no acute distress. HEAD: Atraumatic, normocephalic. EYES: Pupils equal round and reactive to light, extraocular movements intact, sclera anicteric, conjunctiva are normal. Eyelids were unremarkable. ENT: Nares patent, oropharynx clear without exudates. Moist mucous membranes. NECK: Normal range of motion, supple without lymphadenopathy or JVD. LUNGS: Unlabored respirations. Breath sounds clear to auscultation bilaterally and equal. No wheezes rales or rhonchi. HEART: Regular rate and rhythm without murmurs, rubs or gallops. ABDOMEN: Soft, nontender, normoactive bowel sounds. No guarding, no rebound. No masses appreciated. MUSCULOSKELETAL: The patient has pain with palpation of the right lower leg, low back pain. Crystal ent is not able to stand on her own without significant assistance, she is not able to ambulate without significant assistance as well. There is no lower leg edema, no erythema or signs of infection. She is neurovascular intact. No clubbing or cyanosis. NEUROLOGICAL: Patient is alert and oriented x 3. Motor and sensory are also intact. Cranial nerves II through XII grossly intact. Symmetrical smile. Normal speech. PSYCH: Normal mood, normal affect. SKIN: Warm, Dry, normal turgor, no rashes or lesions noted. Limitations: physical limitation Course Vital Signs 02/05/21 02/05/21 02/05/21 12:31 12:35 13:00 Temperature 97.1 F L Pulse Rate 50 L Respiratory 16 Rate Blood Pressure 136/89 136/89 136/89 O2 Sat by Pulse 96 91 L 93 L Oximetry 02/05/21 02/05/21 02/05/21 13:30 14:00 14:30 Temperature Pulse Rate 47 L Respiratory Rate Blood Pressure 130/72 157/63 O2 Sat by Pulse 90 L 90 L Oximetry 02/05/21 02/05/21 15:00 15:30 Temperature Pulse Rate 50 L Respiratory Rate Blood Pressure 149/82 154/60 O2 Sat by Pulse 90 L 95 Oximetry Medical Decision Making - Medical Decision Making Patient is an 80-year-old female with history of Parkinson's presenting via a further trouble ambulating at home. She is having right lower leg, low back pain. No falls or trauma. Ultrasound right lower leg reveals no evidence of DVT, Lumbar back x-ray reveals osteopenia, degenerative disc disease, no acute fractures dislocations. Patient is not able to and bleeding here in the ER. She does live by herself, do not feel like she is safe to go home. Patient will be admitted. Patient accepted by Dr. Oliva. Case discussed with Dr. Decker. - Lab Data Result diagrams: 02/05/21 16:46 Disposition Clinical Impression: Unable to ambulate, Low back pain, Bilateral hip pain, Right leg pain Disposition: ADMITTED IP TO THIS [facility] Condition: Stable Decision Date: 02/05/21 Decision Time: 16:18
[2021-02-05 17:01] LABS: Basophils % (A) 1 %; Eosinophils # (A) 0.3 k/uL (0-0.7); Eosinophils % (A) 6 %; HGB 11.1 gm/dL (11.4-16.0); Hyperchromasia Slight; Lymphocytes # (A) 1.6 k/uL (1.0-4.8); Lymphocytes % (A) 30 %; MCH 34.4 pg (25.0-35.0); MCHC 34.7 g/dL (31.0-37.0); Macrocytosis Slight; Mean Platelet Volume 7.7; Monocytes # (A) 0.4 k/uL (0-1.0); Monocytes % (A) 8 %; Neutrophils # (A) 2.8 k/uL (1.3-7.7); Neutrophils % (A) 53 %; Platelet Count 173 k/uL (150-450); Poikilocytosis Slight; RBC 3.23 m/uL (3.80-5.40); RDW 15.8 % (11.5-15.5); WBC 5.2 k/uL (3.8-10.6)
[2021-02-05 17:05] LABS: Albumin 3.9 g/dL (3.5-5.0); Potassium 5.2 mmol/L (3.5-5.1); Total Bilirubin 0.5 mg/dL (0.2-1.3); Total Protein 7.5 g/dL (6.3-8.2)
[2021-02-05 17:14] LABS: Calcium 13.1 mg/dL (8.4-10.2)
[2021-02-05] MEDS ORDERED: SODIUM CHLORIDE 0.9% 1,000 ML IV STA (17:21)
[2021-02-05] MEDS ORDERED: SODIUM CHLORIDE 0.9% 500 ML 500 ML IV ONE (17:46)
--- NOTE | 2021-02-05 18:02 | P.HPIM ---
History of Present Illness Chief Complaint: Generalized weakness This is a 80-year-old female with a complex past medical history noted below significant for underlying Parkinson's disease and stage IIIB chronic kidney disease that presented to the emergency room with progressive weakness for the past 2 weeks. Patient said that she lives in the assisted living facility and has been having problems with ambulation for the past 2 weeks. She said that she gets dizzy and very weak and only able to stand up for a few minutes. She has a scooter that she use to go down the hallway but otherwise she has been spending most of the day in her bed. Patient said that today she was unable to keep much or drinking much as she couldn't get up. She is also complaining of cramps and pain in both legs worse in the right leg. Patient denies any num bness or tingling anywhere. She reported taking her medications as prescribed. She denies any urinary symptoms. Patient was evaluated in the ER and was found to have evidence of dehydration with acute kidney injury. Potassium level was elevated. Patient will be admitted to the hospital for further management. Review of Systems Review of system: 14 points review of systems were obtained and were negative except to what were mentioned in the HPI. Past Medical History Past Medical History: COPD, Diabetes Mellitus, Hyperlipidemia, Hypertension, Myocardial Infarction ([place]), Sleep Apnea/CPAP/BIPAP Additional Past Medical History / Comment(s): tremors,NO left arm blood draw or blood pressure(vessel harvested for CABG), blockages in angelica legs, Coonstipation, gout, PAD Last Myocardial Infarction Date:: 1999 History of Any Multi-Drug Resistant Organisms: None Reported Past Surgical History: Appendectomy, Coronary Bypass/CABG, Heart Catheterization, Hysterectomy, Tonsillectomy Additional Past Surgical History / Comment(s): angiogram. Right neck lymphnode removal Past Anesthesia/Blood Transfusion Reactions: No Reported Reaction Past Psychological History: No Psychological Hx Reported Smoking Status: Former smoker Past Alcohol Use History: None Reported Past Drug Use History: None Reported - Past Family History Mother Family Medical History: COPD, Myocardial Infarction (AR) Brother(s) Family Medical History: Cancer Additional Family Medical History / Comment(s): LUNG CANCER Son(s) Family Medical History: Cancer Additional Family Medical History / Comment(s): COLON CANCER Sister(s) Family Medical History: Cancer Additional Family Medical History / Comment(s): (2) SISTERS HAD BREAST CANCER. Medications and Allergies Home Medications Medication Instructions Recorded Confirmed Type Ezetimibe [Zetia] 10 mg PO DAILY 11/20/13 02/05/21 History Lovastatin [Mevacor] 10 mg PO HS 11/20/13 02/05/21 History Apixaban [Eliquis] 2.5 mg PO BID 02/17/20 02/05/21 History Calcium Carb-Vit D 500Mg-5Mcg 1 tab PO TID 02/17/20 02/05/21 History [Oscal 500+D 5 Mcg (200 Iu)] Cyanocobalamin [Vitamin B-12] 500 mcg PO DAILY 02/17/20 02/05/21 History Folic Acid 1 mg PO DAILY 02/17/20 02/05/21 History SILVER sulfADIAZINE Cream 1 applic TOPICAL BID #1 gram 03/25/20 02/05/21 Rx [Silvadene 1% Cream] Furosemide [Lasix] 40 mg PO DAILY 04/25/20 02/05/21 History sitaGLIPtin [Januvia] 50 mg PO DAILY 04/25/20 02/05/21 History Carbidopa-Levodopa 25-100 mg 1 tab PO TID 02/05/21 02/05/21 History [Sinemet 25-100] Colchicine [Colcrys] 0.6 mg PO BID 02/05/21 02/05/21 History Denosumab [Prolia] 60 mg SQ Q180D 02/05/21 02/05/21 History Docusate [Colace] 100 mg PO BID 02/05/21 02/05/21 History Epoetin Obed [Procrit] 10,000 unit SQ TH 02/05/21 02/05/21 History Ferrous Sulfate [Feosol] 325 mg PO DAILY 02/05/21 02/05/21 History Gabapentin [Neurontin] 100 mg PO BID@0900,1500 02/05/21 02/05/21 History Gabapentin [Neurontin] 200 mg PO HS 02/05/21 02/05/21 History Metoprolol Tartrate [Lopressor] 12.5 mg PO BID 02/05/21 02/05/21 History Allergies Allergy/AdvReac Type Severity Reaction Status Date / Time albuterol [From DuoNeb] AdvReac Nausea Verified 02/05/21 14:35 cortisone AdvReac PAIN Verified 02/05/21 14:35 hydrocodone AdvReac Nausea Verified 02/05/21 14:35 ipratropium [From DuoNeb] AdvReac Nausea Verified 02/05/21 14:35 procaine HCl [From Novocain] AdvReac pain Verified 02/05/21 14:35 allergy medicines AdvReac "dries me Uncoded 02/17/20 10:00 out, bloody noses,generalized pain" Physical Exam Vitals: Vital Signs Temp Pulse Resp BP Pulse Ox 02/05/21 15:30 50 L 154/60 95 02/05/21 15:00 149/82 90 L 02/05/21 14:30 47 L 157/63 90 L 02/05/21 14:00 90 L 02/05/21 13:30 130/72 02/05/21 13:00 136/89 93 L 02/05/21 12:35 136/89 91 L 02/05/21 12:31 97.1 F L 50 L 16 136/89 96 Intake and Output 02/05/21 02/05/21 02/05/21 06:59 14:59 22:59 Other: Weight 77.564 kg General: The patient is awake and alert, in no distress Eye: there is normal conjunctiva bilaterally. Neck: The neck is supple, there is no JVD. Cardiovascular: Normal S1-S2, no S3-S4, no murmurs. Respiratory: Lungs clear to auscultation bilaterally Gastrointestinal: Abdomen is soft, nontender Musculoskeletal: There is no pedal edema. Neurological:. Speech is normal. Skin: Skin is warm and dry Results CBC & Chem 7: 02/05/21 16:46 02/05/21 16:46 Labs: Abnormal Lab Results - Last 24 Hours (Table) 02/05/21 02/05/21 Range/Units 16:46 16:46 RBC 3.23 L (3.80-5.40) m/uL Hgb 11.1 L (11.4-16.0) gm/dL Hct 32.0 L (34.0-46.0) % RDW 15.8 H (11.5-15.5) % Sodium 133 L (137-145) mmol/L Potassium 5.2 H (3.5-5.1) mmol/L Chloride 97 L (98-107) mmol/L BUN 62 H (7-17) mg/dL Creatinine 2.83 H (0.52-1.04) mg/dL Glucose 151 H (74-99) mg/dL Calcium 13.1 H* (8.4-10.2) mg/dL AST 56 H (14-36) U/L Assessment and Plan Assessment: This is a 80-year-old female with complex past medical history noted below the presented to the emergency room with progressive weakness. Patient was evaluated in the ER and will be admitted to the hospital for further management of her medical problems noted below. 1. Acute kidney injury on stage IIIB chronic kidney disease 2. Dehydration with hypercalcemia 3. Progressive weakness with underlying Parkinson's disease 4. Underlying systolic heart failure with known EF of 45-50% 5. Chronic medical problems: Chronic atrial fibrillation on anticoagulation with Eliquis, type 2 diabetes, hyperlipidemia, hypertension, history of coronary artery disease with history of CABG, peripheral vascular occlusive disease Today, I reviewed her medication list and lab work results Normal saline IV bolus 500 mL then at 100 mL per hour Bladder scan every shift to check for postvoid residual Neurology consulted Parkinson's medication needs to be adjusted PT/OT evaluation Repeat lab work in the morning including ionized calcium
[2021-02-05 18:37] LABS: Magnesium 1.8 mg/dL (1.6-2.3); Phosphorus 4.6 mg/dL (2.5-4.5)
[2021-02-05 20:13] LABS: Glucose,Whole Blood 144 mg/dL (75-99)
[2021-02-05] MEDS ORDERED: COLCHICINE 0.6 MG EACH PO SCH (21:00)
[2021-02-05] MEDS: APIXABAN 2.5 MG TABLET PO SCH (21:38)
[2021-02-05] MEDS: GABAPENTIN 100 MG CAP PO SCH (21:39)
[2021-02-05] MEDS: ATORVASTATIN 10 MG TAB PO SCH (21:39)
[2021-02-05] MEDS: DOCUSATE 100 MG CAP PO SCH (21:39)
[2021-02-05] MEDS: CARBIDOPA-LEVODOPA 25-100 MG 1 EACH TAB PO SCH (22:39)
[2021-02-05] MEDS: METOPROLOL TARTRATE 12.5 MG TAB PO SCH (22:42)
[2021-02-05 22:46] LABS: ALT 9 U/L (4-34); AST 43 U/L (14-36); African American GFR (CKD) 17 (>60 ml/min/1.73 sqM); Albumin 3.6 g/dL (3.5-5.0); Albumin/Globulin Ratio 1.1; Alkaline Phosphatase 75 U/L (38-126); Anion Gap 9 mmol/L; Blood Urea Nitrogen 60 mg/dL (7-17); Calcium 11.8 mg/dL (8.4-10.2); Carbon Dioxide 24 mmol/L (22-30); Chloride 100 mmol/L (98-107); Globulin 3.3 g/dL; Glucose 136 mg/dL (74-99); Non-African American GFR(CKD) 15 (>60 ml/min/1.73 sqM); Potassium 4.5 mmol/L (3.5-5.1); Sodium 133 mmol/L (137-145); Total Bilirubin 0.3 mg/dL (0.2-1.3); Total Protein 6.9 g/dL (6.3-8.2)
[2021-02-06] MEDS: DOCUSATE 100 MG CAP PO SCH ×2 (08:46→21:42)
[2021-02-06] MEDS: EZETIMIBE 10 MG TAB PO SCH (08:46)
[2021-02-06] MEDS: CYANOCOBALAMIN 500 MCG TAB PO SCH (08:46)
[2021-02-06] MEDS: GABAPENTIN 100 MG CAP PO SCH ×3 (08:46→21:02)
[2021-02-06] MEDS: APIXABAN 2.5 MG TABLET PO SCH ×2 (08:46→21:02)
[2021-02-06] MEDS: FOLIC ACID 1 MG TAB PO SCH (08:46)
[2021-02-06] MEDS ORDERED: FUROSEMIDE 40 MG TAB PO SCH (09:00)
--- NOTE | 2021-02-06 09:44 | P.CNNES ---
History of Present Illness Consult date: 02/06/21 Requesting physician: Rony Oliva Reason for Consult: Parkinson's disease/weakness History of Present Illness: This is an 80-year-old woman with history of closed head injury from a fall, TIA in 02/08/2020, tremors, hypertension, cervical spondylosis, atrial fibrillation status post cardioversion on eliquis, chronic kidney insufficiency, diabetes, hyperlipidemia, sleep apnea, history of coronary artery disease status post bypass, peripheral vascular disease, congestive heart failure, COPD presented emergency department on 02/05/2021 because of significant right leg pain as well as bilateral hip pain . Neurology is consulted for tremors and Possible Parkinson's disease. Patient stated that she's been having tremor for a while and she feels its with rest or activity and she feels more the left upper extrem ity than the right. She stated that she followed up w with [facility] and was seen by the nurse practioner who felt the patient has Parkinson's disease and was started on Sinement 25-100mg 1 tab tid for the past 5 months and did not feel any better and rather felt worse. She had MRI Brain at that facility and does know her result. Then when she followed-up later she was notified it was not Parkinson's but just tremors but was continuing on Sinement 25-100mg 1 tab tid. She uses a walker as well as scooter to get around as well as has family friend that comes and helps her. Regarding her right lower extremity pain she said she had surgical procedure on lower extremity by cardiology and felt she had a stent in 04/2020 and since then has been having pain. Some of her medication consist of gabapentin 200 mg daily at bedtime as well as gabapentin 100 mg 1 tablet twice a day, folic acid 1 mg daily, metoprolol 12.5 mg 1 tablet twice a day, appears sulfate, Zetia, vitamin B12 500 g daily, carbidopa levodopa 90820 tablet 3 times a day, Eliquis 2.5 tablet twice a day. I personally saw the patient last on 05/02/2020 and I felt the patient had encephalopathy and is seems multifactorial from toxic metabolic as well as medication effect as well as underlying urinary tract infection. Patient had tremor at that time and felt it felt it was more essential and did not feel it was Parkinsonism. I also during that admission the patient the head and EEG and there is a lot of artifact because of the tremor and it was uncertain if she had epileptiform discharges I saw the patient on Keppra 500 mg 1 tablet twice a day as a prophylactic and she felt better and I wasn't sure if the medication helped or the her medical condition improved as a result of tremor helped and I recommended an outpatient the prolonged EEG and recommended the patient to follow-up with a neurologist as an outpatient. Please review my notes from earlier admission for further details. Mother workup in hospital consisted of: Initial vital signs his blood pressure 136/89, heart rate of 50, temperature of 97.1 Fahrenheit oral, respiratory of 16 and the pulse ox of 96% room air. Her pulse ox was as low as 90% White blood cell is 5.2 thousand. Sodium is 133, initial potassium was 5.2 and the repeat his 4.5. Creatinine is 2.83. Glucose is 151, magnesium is 1.8. AST of the 56 and ALT of 6. The calcium was 13.1 and ionized calcium assist is 6.3. Phosphorus 4.6 and magnesium is 1.8. Chan virus per chart nondetected. Lumbar spine x-ray is reported as osteopenia. Degenerative disc disease. Facet arthroplasty. Patient has multilevel spondylosis. Review of Systems Review of system: The 12 point system was reviewed and apparent positive and negative per HPI. Past Medical History Past Medical History: COPD, Diabetes Mellitus, Hyperlipidemia, Hypertension, Myocardial Infarction ([place]), Sleep Apnea/CPAP/BIPAP Additional Past Medical History / Comment(s): tremors,NO left arm blood draw or blood pressure(vessel harvested for CABG), blockages in angelica legs, Coonstipation, gout, PAD Last Myocardial Infarction Date:: 1999 History of Any Multi-Drug Resistant Organisms: None Reported Past Surgical History: Appendectomy, Coronary Bypass/CABG, Heart Catheterization, Hysterectomy, Tonsillectomy Additional Past Surgical History / Comment(s): angiogram. Right neck lymphnode removal Past Anesthesia/Blood Transfusion Reactions: No Reported Reaction Past Psychological History: No Psychological Hx Reported Smoking Status: Former smoker Past Alcohol Use History: None Reported Past Drug Use History: None Reported - Past Family History Mother Family Medical History: COPD, Myocardial Infarction ([place]) Brother(s) Family Medical History: Cancer Additional Family Medical History / Comment(s): LUNG CANCER Son(s) Family Medical History: Cancer Additional Family Medical History / Comment(s): COLON CANCER Sister(s) Family Medical History: Cancer Additional Family Medical History / Comment(s): (2) SISTERS HAD BREAST CANCER. Medications and Allergies Home Medications Medication Instructions Recorded Confirmed Type Ezetimibe [Zetia] 10 mg PO DAILY 11/20/13 02/05/21 History Lovastatin [Mevacor] 10 mg PO HS 11/20/13 02/05/21 History Apixaban [Eliquis] 2.5 mg PO BID 02/17/20 02/05/21 History Calcium Carb-Vit D 500Mg-5Mcg 1 tab PO TID 02/17/20 02/05/21 History [Oscal 500+D 5 Mcg (200 Iu)] Cyanocobalamin [Vitamin B-12] 500 mcg PO DAILY 02/17/20 02/05/21 History Folic Acid 1 mg PO DAILY 02/17/20 02/05/21 History SILVER sulfADIAZINE Cream 1 applic TOPICAL BID #1 gram 03/25/20 02/05/21 Rx [Silvadene 1% Cream] Furosemide [Lasix] 40 mg PO DAILY 04/25/20 02/05/21 History sitaGLIPtin [Januvia] 50 mg PO DAILY 04/25/20 02/05/21 History Carbidopa-Levodopa 25-100 mg 1 tab PO TID 02/05/21 02/05/21 History [Sinemet 25-100] Colchicine [Colcrys] 0.6 mg PO BID 02/05/21 02/05/21 History Denosumab [Prolia] 60 mg SQ Q180D 02/05/21 02/05/21 History Docusate [Colace] 100 mg PO BID 02/05/21 02/05/21 History Epoetin Obed [Procrit] 10,000 unit SQ TH 02/05/21 02/05/21 History Ferrous Sulfate [Feosol] 325 mg PO DAILY 02/05/21 02/05/21 History Gabapentin [Neurontin] 100 mg PO BID@0900,1500 02/05/21 02/05/21 History Gabapentin [Neurontin] 200 mg PO HS 02/05/21 02/05/21 History Metoprolol Tartrate [Lopressor] 12.5 mg PO BID 02/05/21 02/05/21 History Allergies Allergy/AdvReac Type Severity Reaction Status Date / Time albuterol [From DuoNeb] AdvReac Nausea Verified 02/05/21 14:35 cortisone AdvReac PAIN Verified 02/05/21 14:35 hydrocodone AdvReac Nausea Verified 02/05/21 14:35 ipratropium [From DuoNeb] AdvReac Nausea Verified 02/05/21 14:35 procaine HCl [From Novocain] AdvReac pain Verified 02/05/21 14:35 allergy medicines AdvReac "dries me Uncoded 02/17/20 10:00 out, bloody noses,generalized pain" Physical Examination - Vital Signs Vital Signs: Vital Signs Temp Pulse Pulse Resp BP BP Pulse Ox 02/06/21 07:43 97.7 F 60 16 135/70 94 L 02/06/21 01:50 98.2 F 56 L 16 147/67 96 02/05/21 20:05 97.7 F 60 14 150/71 94 L 02/05/21 17:57 56 L 18 125/58 95 02/05/21 15:30 50 L 154/60 95 02/05/21 15:00 149/82 90 L 02/05/21 14:30 47 L 157/63 90 L 02/05/21 14:00 90 L 02/05/21 13:30 130/72 02/05/21 13:00 136/89 93 L 02/05/21 12:35 136/89 91 L 02/05/21 12:31 97.1 F L 50 L 16 136/89 96 Intake and Output 02/05/21 02/06/21 02/06/21 22:59 06:59 14:59 Other: # Voids 4 Weight 77.564 kg GENERAL: The patient is lying in bed and is in mild acute distress. CHEST: The heart rate is regular rate rhythm. No murmurs to auscultation. LUNG: Clear to auscultation bilaterally no wheezing noted throughout. Not labored breathing. ABDOMEN/GI: Bowel sounds present in all 4 quadrants. No tenderness to palpation throughout. INTEGUMENTARY: Patient has erythema, warmth to touch over bilateral feet. It's tender to touch. NEUROLOGICAL: Higher mental function: The patient is awake, alert, oriented to self, place and time. Patient is following commands. No aphasia and no neglect. Cranial nerves: The pupils are round, equal and reactive to light and accommodation. Visual tate are full to confrontation throughout. Extraocular movement is intact no nystagmus is noted. Facial sensation is normal to touch throughout. The facial strength is normal throughout. Hearing is moderately decreased bilaterally to hand rub. Tongue is midline and moved [id number] without any difficulty. Patient has lip tremor. No dysarthria is noted. Shoulder shrug is normal bilaterally. Motor: The strength is 5 over 5 throughout. Normal tone and bulk. Has resting tremor of the left upper extremity and rarely right upper. Cerebellum: Finger to nose there is no ataxia or dysmetria but has intention tremor to right upper. Sensation: Sensation is normal to touch throughout. Reflexes (right/left): 2+ throughout uppers while at patellar are 1+ and ankles could not perform since was in pain. Plantars Could not perform since is in pain. Results - Laboratory Findings CBC and BMP: 02/05/21 16:46 02/05/21 22:24 Abnormal Lab Findings: Abnormal Labs 02/05/21 02/05/21 02/05/21 16:46 16:46 16:46 RBC 3.23 L Hgb 11.1 L Hct 32.0 L RDW 15.8 H Sodium 133 L Potassium 5.2 H Chloride 97 L BUN 62 H Creatinine 2.83 H Glucose 151 H POC Glucose (mg/dL) Calcium 13.1 H* Ionized Calcium Armond Phosphorus 4.6 H AST 56 H 02/05/21 02/05/21 02/06/21 20:11 22:24 05:27 RBC Hgb Hct RDW Sodium 133 L Potassium Chloride BUN 60 H Creatinine 2.83 H Glucose 136 H POC Glucose (mg/dL) 144 H Calcium 11.8 H Ionized Calcium Armond 6.3 H* Phosphorus AST 43 H Assessment and Plan Assessment: * Tremor (has resting left upper extremity, oral tremor but tremor with action over the right upper extremity). Seems possible Parkisonsim but has possible component of essential and her tremors can be exacerbated because of her electrolyte imbalance (She has been on Sinement 25-100 1 tab tid for about 5 months and did not feel improvement) * hypercalcemia * Electrolyte imbalance (kyperkalemia--resolved, hyperphosphatemia and calcemia) * Acute on Chronic kidney insufficiency * Has erythema and warmth of lower extremity (has surgery on the right lower extremity stent in the past and since then having complaints): Rule out cellulitis. * History of closed head injury from a fall * History of TIA * Cervical spondylosis (degenerative grade 1 anterior lithiasis at C3-C4 and C6- C7) * Chronic atrial fibrillation status post cardioversion and on Eliquis * Diabetes mellitus * History of hyperlipidemia * Sleep apnea * History of coronary artery disease s/p bypass * Osteopenia * Peripheral vascular disease Plan: Recommend getting a Davide scan as outpatient (if normal then likely it is essential tremor. Will defer modifying medications and avoiding any medications to get more accurate result and will defer that to the neurologist as outpatient. I will increase her home medication of Sinemet (25-100) from the one tablet 3 times a day to 4 times a day in the mean time. Will try to obtain her report of her most recent MRI Brain from her neurologist she had as outpatient. TSH is ordered and is pending Parathyroid hormone is ordered and is pending We'll defer the electrolyte imbalance to the primary team. Physical therapy and occupation therapy are consulted Patient's having pain over bilateral feet mostly on the right with erythema and warmth to touch possibly consider cellulitis and we'll defer the management/further workup to the primary team. Defer the rest of the medical management to the primary team Upon discharge recommend the patient to follow-up with a neurologist as an outpatient. The plan is discussed with her nurse. Thank you for the consultation. Armin Hemphill M.D. Neuro-hospitalist Time with Patient: Greater than 30
[2021-02-06] MEDS: METOPROLOL TARTRATE 12.5 MG TAB PO SCH ×2 (10:27→22:50)
[2021-02-06] MEDS: CARBIDOPA-LEVODOPA 25-100 MG 1 EACH TAB PO SCH ×4 (10:27→21:36)
[2021-02-06] MEDS: FERROUS SULFATE 325 MG TAB PO SCH (12:37)
--- NOTE | 2021-02-06 15:35 | P.PN ---
Subjective Patient is feeling about the same compared to yesterday. No acute events overnight reported by nursing staff. Objective - Vital Signs Vital signs: Vital Signs Temp 97.7 F 02/06/21 14:43 Pulse 59 L 02/06/21 14:43 Resp 19 02/06/21 14:43 BP 165/56 02/06/21 14:43 Pulse Ox 94 L 02/06/21 14:43 Intake & Output 02/05/21 02/06/21 02/06/21 18:59 06:59 18:59 Intake Total 360 Balance 360 Weight 77.564 kg Intake: Oral 360 Other: # Voids 4 1 # Bowel Movements 1 - Exam General: The patient is awake and alert, in no distress Eye: there is normal conjunctiva bilaterally. Neck: The neck is supple, there is no JVD. Cardiovascular: Normal S1-S2, no S3-S4, no murmurs. Respiratory: Lungs clear to auscultation bilaterally Gastrointestinal: Abdomen is soft, nontender Musculoskeletal: There is no pedal edema. Neurological:. Speech is normal. Skin: Skin is warm and dry - Labs CBC & Chem 7: 02/05/21 16:46 02/05/21 22:24 Labs: Abnormal Lab Results - Last 24 Hours (Table) 02/05/21 02/05/21 02/05/21 Range/Units 16:46 16:46 16:46 RBC 3.23 L (3.80-5.40) m/uL Hgb 11.1 L (11.4-16.0) gm/dL Hct 32.0 L (34.0-46.0) % RDW 15.8 H (11.5-15.5) % Sodium 133 L (137-145) mmol/L Potassium 5.2 H (3.5-5.1) mmol/L Chloride 97 L (98-107) mmol/L BUN 62 H (7-17) mg/dL Creatinine 2.83 H (0.52-1.04) mg/dL Glucose 151 H (74-99) mg/dL POC Glucose (mg/dL) (75-99) mg/dL Calcium 13.1 H* (8.4-10.2) mg/dL Ionized Calcium Armond (4.5-5.3) mg/dL Phosphorus 4.6 H (2.5-4.5) mg/dL AST 56 H (14-36) U/L PTH Intact (14.0-72.0) pg/mL 02/05/21 02/05/21 02/05/21 Range/Units 16:46 20:11 22:24 RBC (3.80-5.40) m/uL Hgb (11.4-16.0) gm/dL Hct (34.0-46.0) % RDW (11.5-15.5) % Sodium 133 L (137-145) mmol/L Potassium (3.5-5.1) mmol/L Chloride (98-107) mmol/L BUN 60 H (7-17) mg/dL Creatinine 2.83 H (0.52-1.04) mg/dL Glucose 136 H (74-99) mg/dL POC Glucose (mg/dL) 144 H (75-99) mg/dL Calcium 11.8 H (8.4-10.2) mg/dL Ionized Calcium Armond (4.5-5.3) mg/dL Phosphorus (2.5-4.5) mg/dL AST 43 H (14-36) U/L PTH Intact 6.2 L (14.0-72.0) pg/mL 02/06/21 Range/Units 05:27 RBC (3.80-5.40) m/uL Hgb (11.4-16.0) gm/dL Hct (34.0-46.0) % RDW (11.5-15.5) % Sodium (137-145) mmol/L Potassium (3.5-5.1) mmol/L Chloride (98-107) mmol/L BUN (7-17) mg/dL Creatinine (0.52-1.04) mg/dL Glucose (74-99) mg/dL POC Glucose (mg/dL) (75-99) mg/dL Calcium (8.4-10.2) mg/dL Ionized Calcium Armond 6.3 H* (4.5-5.3) mg/dL Phosphorus (2.5-4.5) mg/dL AST (14-36) U/L PTH Intact (14.0-72.0) pg/mL Assessment and Plan Assessment: This is a 80-year-old female with complex past medical history noted below the presented to the emergency room with progressive weakness. Patient was evaluated in the ER and will be admitted to the hospital for further management of her medical problems noted below. 1. Acute kidney injury on stage IIIB chronic kidney disease 2. Dehydration with hypercalcemia: Improving with IV fluid hydration. Hypercalcemia may be simply related to patient being bedbound. Need to rule out underlying malignancy. PTH level is low. Awaiting 1, 25 dihydroxy vitamin D and protein electrophoresis 3. Progressive weakness with underlying Parkinson's disease: Neurology following. Brain scan in June 2020 highly suggestive for underlying Parkinson's disease. Sinemet dose increased to 4 times a day by neurology 4. Underlying systolic heart failure with known EF of 45-50% 5. Chronic medical problems: Chronic atrial fibrillation on anticoagulation with Eliquis, type 2 diabetes, hyperlipidemia, hypertension, history of coronary artery disease with history of CABG, peripheral vascular occlusive disease Today, I reviewed her medication list and lab work results Continue IV fluid hydration with normal saline at 75 mL per hour Bladder scan showed no evidence of retention PT/OT evaluation Repeat lab work in the morning including ionized calcium
[2021-02-06] MEDS: SODIUM CHLORIDE 0.9% 1,000 ML IV SCH (18:08)
[2021-02-06] MEDS: ATORVASTATIN 10 MG TAB PO SCH (21:02)
[2021-02-07 03:42] LABS: Protein, Total 6.6 g/dL (6.2-8.2)
[2021-02-07] MEDS: SODIUM CHLORIDE 0.9% 1,000 ML IV SCH ×2 (06:23→20:35)
[2021-02-07] MEDS: APIXABAN 2.5 MG TABLET PO SCH ×2 (08:35→20:34)
[2021-02-07] MEDS: METOPROLOL TARTRATE 12.5 MG TAB PO SCH ×2 (08:35→21:06)
[2021-02-07] MEDS: EZETIMIBE 10 MG TAB PO SCH (08:35)
[2021-02-07] MEDS: FOLIC ACID 1 MG TAB PO SCH (08:36)
[2021-02-07] MEDS: CARBIDOPA-LEVODOPA 25-100 MG 1 EACH TAB PO SCH ×3 (08:36→20:34)
[2021-02-07] MEDS: DOCUSATE 100 MG CAP PO SCH ×2 (08:36→20:34)
[2021-02-07] MEDS: CYANOCOBALAMIN 500 MCG TAB PO SCH (08:36)
--- NOTE | 2021-02-07 10:04 | P.PN ---
Subjective Progress Note Date: 02/07/21 The patient is seen at bedside and she feels her tremors episodes are not improved and feels for past couple months worsening. Since increasing her dose yesterday she does not feel any better tremor rene. She had a Davide brain SPECT exam in 06/26/2020 and was reported as abnormal feelings highly suggestive of idiopathic Parkinson's disease or Parkinsonian syndrome Objective - Vital Signs Vital signs: Vital Signs Temp 98.3 F 02/07/21 08:00 Pulse 52 L 02/07/21 08:00 Resp 18 02/07/21 08:00 BP 151/80 02/07/21 08:00 Pulse Ox 95 02/07/21 08:00 Intake & Output 02/06/21 02/07/21 02/07/21 18:59 06:59 18:59 Intake Total 360 900 Balance 360 900 Intake: Intake, IV Titration 450 Amount Sodium Chloride 0.9% 1, 450 000 ml @ 75 mls/hr IV . [id number] Rx#:[id number] Oral 360 450 Other: # Voids 1 6 # Bowel Movements 1 - Exam GENERAL: The patient is lying in bed and is in mild acute distress. INTEGUMENTARY: Patient has erythema, warmth to touch over bilateral feet. It's tender to touch. NEUROLOGICAL: Higher mental function: The patient is awake, alert, oriented to self, place and time. Patient is following commands. No aphasia and no neglect. Cranial nerves: The pupils are round, equal and reactive to light and accommodation. Visual tate are full to confrontation throughout. Extraocular movement is intact no nystagmus is noted. Facial sensation is normal to touch throughout. The facial strength is normal throughout. Hearing is moderately decreased bilaterally to hand rub. Tongue is midline and moved [id number] without any difficulty. Patient has lip tremor. No dysarthria is noted. Shoulder shrug is normal bilaterally. Motor: The strength is 5 over 5 throughout. Normal tone and bulk. Has resting tremor of the left upper extremity and rarely right upper. Cerebellum: Finger to nose there is no ataxia or dysmetria but has intention tremor to right upper. Sensation: Sensation is normal to touch throughout. Reflexes (right/left): 2+ throughout uppers while at patellar are 1+ and ankles could not perform since was in pain. Plantars Could not perform since is in pain. TSH: 1.37 PTH: 6.2 Calcium: 11.8 and iononized calcium 6.3 - Labs CBC & Chem 7: 02/05/21 16:46 02/05/21 22:24 Labs: Abnormal Lab Results - Last 24 Hours (Table) 02/05/21 Range/Units 16:46 PTH Intact 6.2 L (14.0-72.0) pg/mL Assessment and Plan Assessment: * Parkinsonian disease (had [facility]ide brain SPECT exam in 06/26/2020 reported as suggestive of idiopathic Parkinson's disease or Parkinsonian syndrome): Appears now Parksonian since she stated she was on Sinement for couple month and did not see any improvement. * Her tremor can be exacerbated because of her electrolyte imbalance * hypercalcemia * Electrolyte imbalance (kyperkalemia--resolved, hyperphosphatemia and calcemia) * Acute on Chronic kidney insufficiency * Has erythema and warmth of lower extremity (has surgery on the right lower extremity stent in the past and since then having complaints): Rule out cellulitis. * History of closed head injury from a fall * History of TIA * Cervical spondylosis (degenerative grade 1 anterior lithiasis at C3-C4 and C6- C7) * Chronic atrial fibrillation status post cardioversion and on Eliquis * Diabetes mellitus * History of hyperlipidemia * Sleep apnea * History of coronary artery disease s/p bypass * Osteopenia * Peripheral vascular disease Plan: * During this hospital stay, I increased Sinemet (25-100) from the one tablet 3 times a day to 4 times a day but she does not feel better. Will consider going up to 1 tab 5 times a day if no improvement in 3 days (this could be done as outpatient if she is discharged and can be modified by her neurologist as outpatient). * Will try to obtain her report of her most recent MRI Brain from her neurologist she had as outpatient (per patient it was reported as normal). She stated she had an EEG by her neurologist and was reported as normal. * We'll defer the electrolyte imbalance to the primary team. * Physical therapy and occupation therapy are consulted * Patient's having pain over bilateral feet mostly on the right with erythema and warmth to touch possibly consider cellulitis or vascular surgery consulter and we'll defer the management/further workup to the primary team. * Defer the rest of the medical management to the primary team * Upon discharge recommend the patient to follow-up with her neurologist as an outpatient. The plan is discussed with her nurse. There is no further work-up needed. Armin Hemphill M.D. Neuro-hospitalist Time with Patient: Less than 30
--- NOTE | 2021-02-07 10:05 | P.PN ---
Subjective Patient was seen and evaluated by me this morning. She is feeling about the same compared to yesterday. Lab work this morning is still pending. Her left arm IV infiltrated this morning and I talked to nursing staff to switch IV to the other arm. Patient is requesting switching [place] to tramadol for pain control. Objective - Vital Signs Vital signs: Vital Signs Temp 98.3 F 02/07/21 08:00 Pulse 52 L 02/07/21 08:00 Resp 18 02/07/21 08:00 BP 151/80 02/07/21 08:00 Pulse Ox 95 02/07/21 08:00 Intake & Output 02/06/21 02/07/21 02/07/21 18:59 06:59 18:59 Intake Total 360 900 Balance 360 900 Intake: Intake, IV Titration 450 Amount Sodium Chloride 0.9% 1, 450 000 ml @ 75 mls/hr IV . [id number] Rx#:[id number] Oral 360 450 Other: # Voids 1 6 # Bowel Movements 1 - Exam General: The patient is awake and alert, in no distress Eye: there is normal conjunctiva bilaterally. Neck: The neck is supple, there is no JVD. Cardiovascular: Normal S1-S2, no S3-S4, no murmurs. Respiratory: Lungs clear to auscultation bilaterally Gastrointestinal: Abdomen is soft, nontender Musculoskeletal: There is no pedal edema. Neurological:. Speech is normal. Skin: Skin is warm and dry - Labs CBC & Chem 7: 02/05/21 16:46 02/05/21 22:24 Labs: Abnormal Lab Results - Last 24 Hours (Table) 02/05/21 Range/Units 16:46 PTH Intact 6.2 L (14.0-72.0) pg/mL Assessment and Plan Assessment: This is a 80-year-old female with complex past medical history noted below the presented to the emergency room with progressive weakness. Patient was evaluated in the ER and will be admitted to the hospital for further management of her medical problems noted below. 1. Acute kidney injury on stage IIIB chronic kidney disease 2. Dehydration with hypercalcemia: Improving with IV fluid hydration. Hypercalcemia may be simply related to patient being bedbound. Need to rule out underlying malignancy. PTH level is low. PEP and TSH normal. Awaiting 1, 25 dihydroxy vitamin D 3. Progressive weakness with underlying Parkinson's disease: Neurology following. Brain scan in June 2020 highly suggestive for underlying Parkinson's disease. Sinemet dose increased to 4 times a day by neurology 4. Underlying systolic heart failure with known EF of 45-50% 5. Chronic medical problems: Chronic atrial fibrillation on anticoagulation with Eliquis, type 2 diabetes, hyperlipidemia, hypertension, history of coronary artery disease with history of CABG, peripheral vascular occlusive disease Today, I reviewed her medication list and lab work results Continue IV fluid hydration with normal saline at 75 mL per hour awaiting calcium level today Bladder scan showed no evidence of retention PT/OT evaluation Repeat lab work in the morning Discharge planning possibly to [facility]
[2021-02-07] MEDS: FERROUS SULFATE 325 MG TAB PO SCH (12:10)
[2021-02-07] MEDS: PETROLAT,WHITE/LAN/8-HYDROXYQU 227 GM OINT TOPICAL SCH ×3 (12:11→23:55)
[2021-02-07 13:02] LABS: African American GFR (CKD) 19.3 (60.0-200.0); Anion Gap 11.1 mmol/L (4.00-12.00); BUN/Creat Ratio 16.42 Ratio (12.00-20.00); Blood Urea Nitrogen 42.7 mg/dL (9.0-27.0); Calcium 10.2 mg/dL (8.7-10.3); Carbon Dioxide 21.9 mmol/L (21.6-31.8); Non-African American GFR(CKD) 16.6 (60.0-200.0); Potassium 4.6 mmol/L (3.5-5.5)
[2021-02-07] MEDS: GABAPENTIN 100 MG CAP PO SCH (20:34)
[2021-02-07] MEDS: ATORVASTATIN 10 MG TAB PO SCH (20:34)
[2021-02-08] MEDS: CARBIDOPA-LEVODOPA 25-100 MG 1 EACH TAB PO SCH ×4 (01:58→20:55)
[2021-02-08] MEDS: METOPROLOL TARTRATE 12.5 MG TAB PO SCH ×2 (08:43→20:55)
[2021-02-08] MEDS: DOCUSATE 100 MG CAP PO SCH ×2 (08:44→20:54)
[2021-02-08] MEDS: CYANOCOBALAMIN 500 MCG TAB PO SCH (08:44)
[2021-02-08] MEDS: APIXABAN 2.5 MG TABLET PO SCH ×2 (08:44→20:54)
[2021-02-08] MEDS: FOLIC ACID 1 MG TAB PO SCH (08:44)
[2021-02-08] MEDS: EZETIMIBE 10 MG TAB PO SCH (08:44)
[2021-02-08] MEDS: traMADol 50 MG TAB PO PRN (08:50)
[2021-02-08] MEDS: SODIUM CHLORIDE 0.9% 1,000 ML IV SCH (09:30)
[2021-02-08] MEDS: PETROLAT,WHITE/LAN/8-HYDROXYQU 227 GM OINT TOPICAL SCH ×3 (11:21→20:56)
[2021-02-08] MEDS: FERROUS SULFATE 325 MG TAB PO SCH (12:28)
--- NOTE | 2021-02-08 15:25 | P.PN ---
Subjective Patient was seen and evaluated by me this morning. She does not have any complaint this morning. No acute events overnight reported by nursing staff. Objective - Vital Signs Vital signs: Vital Signs Temp 97.8 F 02/08/21 14:00 Pulse 61 02/08/21 14:00 Resp 18 02/08/21 14:00 BP 122/59 02/08/21 14:00 Pulse Ox 95 02/08/21 14:00 Intake & Output 02/07/21 02/08/21 02/08/21 18:59 06:59 18:59 Intake Total 680 950 180 Output Total 0 850 Balance 680 100 180 Intake: Intake, IV Titration 600 Amount Sodium Chloride 0.9% 1, 600 000 ml @ 75 mls/hr IV . [id number] TODD Rx#:[id number] Oral 680 350 180 Output: Urine 850 Post Void Residual 0 Other: # Voids 6 - Exam General: The patient is awake and alert, in no distress Eye: there is normal conjunctiva bilaterally. Neck: The neck is supple, there is no JVD. Cardiovascular: Normal S1-S2, no S3-S4, no murmurs. Respiratory: Lungs clear to auscultation bilaterally Gastrointestinal: Abdomen is soft, nontender Musculoskeletal: There is no pedal edema. Neurological:. Speech is normal. Skin: Skin is warm and dry - Labs CBC & Chem 7: 02/05/21 16:46 02/07/21 06:56 Assessment and Plan Assessment: This is a 80-year-old female with complex past medical history noted below the presented to the emergency room with progressive weakness. Patient was evaluated in the ER and will be admitted to the hospital for further management of her medical problems noted below. 1. Acute kidney injury on stage IIIB chronic kidney disease 2. Dehydration with hypercalcemia: Improved with IV fluid hydration. Hypercalcemia may be simply related to patient being bedbound. Need to rule out underlying malignancy. PTH level is low. PEP and TSH normal. Awaiting 1, 25 dihydroxy vitamin D 3. Progressive weakness with underlying Parkinson's disease: Neurology following. Brain scan in June 2020 highly suggestive for underlying Parkinson's disease. Sinemet dose increased to 4 times a day by neurology 4. Underlying systolic heart failure with known EF of 45-50% 5. Chronic medical problems: Chronic atrial fibrillation on anticoagulation with Eliquis, type 2 diabetes, hyperlipidemia, hypertension, history of coronary artery disease with history of CABG, peripheral vascular occlusive disease Today, I reviewed her medication list and lab work results Discontinue IV fluids and encourage oral hydration Bladder scan showed no evidence of retention PT/OT evaluation Repeat lab work in the morning Discharge planning possibly to ECF
[2021-02-08] MEDS: GABAPENTIN 100 MG CAP PO SCH (20:54)
[2021-02-08] MEDS: ATORVASTATIN 10 MG TAB PO SCH (20:54)
[2021-02-09] MEDS: traMADol 50 MG TAB PO PRN ×2 (05:15→20:16)
[2021-02-09] MEDS: CYANOCOBALAMIN 500 MCG TAB PO SCH (08:13)
[2021-02-09] MEDS: APIXABAN 2.5 MG TABLET PO SCH ×2 (08:13→20:17)
[2021-02-09] MEDS: DOCUSATE 100 MG CAP PO SCH ×2 (08:13→20:17)
[2021-02-09] MEDS: CARBIDOPA-LEVODOPA 25-100 MG 1 EACH TAB PO SCH ×4 (08:13→23:05)
[2021-02-09] MEDS: METOPROLOL TARTRATE 12.5 MG TAB PO SCH ×2 (08:13→20:17)
[2021-02-09] MEDS: FOLIC ACID 1 MG TAB PO SCH (08:13)
[2021-02-09] MEDS: EZETIMIBE 10 MG TAB PO SCH (08:13)
[2021-02-09] MEDS: PETROLAT,WHITE/LAN/8-HYDROXYQU 227 GM OINT TOPICAL SCH ×3 (08:14→20:18)
[2021-02-09 09:15] LABS: Anion Gap 11.4 mmol/L (4.00-12.00); BUN/Creat Ratio 14.1 Ratio (12.00-20.00); Blood Urea Nitrogen 29.6 mg/dL (9.0-27.0); Calcium 9.3 mg/dL (8.7-10.3); Carbon Dioxide 20.6 mmol/L (21.6-31.8); Non-African American GFR(CKD) 21.5 (60.0-200.0); Potassium 5.2 mmol/L (3.5-5.5)
--- NOTE | 2021-02-09 12:08 | P.PN ---
Subjective Patient is feeling well today. No acute events overnight. Objective - Vital Signs Vital signs: Vital Signs Temp 98.1 F 02/09/21 08:00 Pulse 66 02/09/21 08:00 Resp 18 02/09/21 08:00 BP 135/68 02/09/21 08:00 Pulse Ox 94 L 02/09/21 08:00 Intake & Output 02/08/21 02/09/21 02/09/21 18:59 06:59 18:59 Intake Total 360 Balance 360 Intake: Oral 360 Other: Voiding Method Bedside Commode # Voids 4 4 - Exam General: The patient is awake and alert, in no distress Eye: there is normal conjunctiva bilaterally. Neck: The neck is supple, there is no JVD. Cardiovascular: Normal S1-S2, no S3-S4, no murmurs. Respiratory: Lungs clear to auscultation bilaterally Gastrointestinal: Abdomen is soft, nontender Musculoskeletal: There is no pedal edema. Neurological:. Speech is normal. Skin: Skin is warm and dry - Labs CBC & Chem 7: 02/05/21 16:46 02/09/21 05:16 Labs: Abnormal Lab Results - Last 24 Hours (Table) 02/09/21 Range/Units 05:16 Sodium 134 L (135-145) mmol/L Carbon Dioxide 20.6 L (21.6-31.8) mmol/L BUN 29.6 H (9.0-27.0) mg/dL Creatinine 2.1 H (0.6-1.5) mg/dL Est GFR (CKD-EPI)AfAm 25.0 L (60.0-200.0) Est GFR (CKD-EPI)NonAf 21.5 L (60.0-200.0) Glucose 140 H (70-110) mg/dL Assessment and Plan Assessment: This is a 80-year-old female with complex past medical history noted below the presented to the emergency room with progressive weakness. Patient was evaluated in the ER and will be admitted to the hospital for further management of her medical problems noted below. 1. Acute kidney injury on stage IIIB chronic kidney disease 2. Dehydration with hypercalcemia: Improved with IV fluid hydration. Hypercalcemia may be simply related to patient being bedbound. Need to rule out underlying malignancy. PTH level is low. PEP and TSH normal. Awaiting 1, 25 dihydroxy vitamin D 3. Progressive weakness with underlying Parkinson's disease: Neurology following. Brain scan in June 2020 highly suggestive for underlying Parkinson's disease. Sinemet dose increased to 4 times a day by neurology 4. Underlying systolic heart failure with known EF of 45-50% 5. Chronic medical problems: Chronic atrial fibrillation on anticoagulation with Eliquis, type 2 diabetes, hyperlipidemia, hypertension, history of coronary artery disease with history of CABG, peripheral vascular occlusive disease Today, I reviewed her medication list and lab work results Discontinue IV fluids and encourage oral hydration Bladder scan showed no evidence of retention PT/OT evaluation Repeat lab work in the morning Awaiting ECF placement
[2021-02-09] MEDS: FERROUS SULFATE 325 MG TAB PO SCH (12:49)
[2021-02-09] MEDS: GABAPENTIN 100 MG CAP PO SCH (20:16)
[2021-02-09] MEDS: ATORVASTATIN 10 MG TAB PO SCH (20:17)
[2021-02-10 08:21] VITALS: BP 131/67; PULSE 67; RESP 18; TEMP 98.7
[2021-02-10] MEDS: FOLIC ACID 1 MG TAB PO SCH (08:43)
[2021-02-10] MEDS: CYANOCOBALAMIN 500 MCG TAB PO SCH (08:43)
[2021-02-10] MEDS: CARBIDOPA-LEVODOPA 25-100 MG 1 EACH TAB PO SCH (08:43)
[2021-02-10] MEDS: FERROUS SULFATE 325 MG TAB PO SCH (08:43)
[2021-02-10] MEDS: EZETIMIBE 10 MG TAB PO SCH (08:43)
[2021-02-10] MEDS: DOCUSATE 100 MG CAP PO SCH (08:43)
[2021-02-10] MEDS: APIXABAN 2.5 MG TABLET PO SCH (08:43)
[2021-02-10] MEDS: METOPROLOL TARTRATE 12.5 MG TAB PO SCH (08:43)
[2021-02-10] MEDS: PETROLAT,WHITE/LAN/8-HYDROXYQU 227 GM OINT TOPICAL SCH (08:44)
--- NOTE | 2021-02-10 09:47 | P.DS ---
Providers Date of admission: 02/07/21 15:11 Expected date of discharge: 02/10/21 Attending physician: Rony Oliva Consults: 02/05/21 17:50 Consult Physician Routine Consulting Provider: Armin Hemphill Consult Reason/Comments: Parkinson's/weakness Do you want consulting provider notified?: Yes Primary care physician: Aaliyah Evans MD Hospital Course: This is a 80-year-old female with complex past medical history noted below the presented to the emergency room with progressive weakness. Patient was evaluated in the ER and will be admitted to the hospital for further management of her medical problems noted below. 1. Acute kidney injury on stage IIIB chronic kidney disease 2. Dehydration with hypercalcemia: Improved with IV fluid hydration. Hypercalcemia may be simply related to patient being bedbound. Need to rule out underlying malignancy. PTH level is low. PEP and TSH normal. Awaiting 1, 25 dihydroxy vitamin D 3. Progressive weakness with underlying Parkinson's disease: Neurology following. Brain scan in June 2020 highly suggestive for underlying Parkinson's disease. Sinemet dose increased to 4 times a day by neurology 4. Underlying systolic heart failure with known EF of 45-50% 5. Chronic medical problems: Chronic atrial fibrillation on anticoagulation with Eliquis, type 2 diabetes, hyperlipidemia, hypertension, history of coronary artery disease with history of CABG, peripheral vascular occlusive disease Patient's overall condition improved throughout her hospital stay. She was seen and evaluated by PT/OT. Subacute rehab recommended. Patient will be discharged to [facility] on the [place] in a stable condition. Physical exam: General: The patient is awake and alert, in no distress Eye: there is normal conjunctiva bilaterally. Neck: The neck is supple, there is no JVD. Cardiovascular: Normal S1-S2, no S3-S4, no murmurs. Respiratory: Lungs clear to auscultation bilaterally Gastrointestinal: Abdomen is soft, nontender Musculoskeletal: There is no pedal edema. Neurological:. Speech is normal. Skin: Skin is warm and dry Patient Condition at Discharge: Fair Plan - Discharge Summary Discharge Rx Participant: No New Discharge Prescriptions: New Carbidopa-Levodopa 25-100 mg [Sinemet 25-100 mg] 1 each PO QID tab traMADol HCl [Ultram] 50 mg PO QID PRN #9 tab PRN Reason: Pain Continue Ezetimibe [Zetia] 10 mg PO DAILY Lovastatin [Mevacor] 10 mg PO HS Cyanocobalamin [Vitamin B-12] 500 mcg PO DAILY Apixaban [Eliquis] 2.5 mg PO BID Folic Acid 1 mg PO DAILY sitaGLIPtin [Januvia] 50 mg PO DAILY Furosemide [Lasix] 40 mg PO DAILY Docusate [Colace] 100 mg PO BID Metoprolol Tartrate [Lopressor] 12.5 mg PO BID Denosumab [Prolia] 60 mg SQ Q180D Gabapentin [Neurontin] 200 mg PO HS #6 cap Ferrous Sulfate [Iron (65 MG Elemental)] 325 mg PO DAILY Epoetin Obed [Procrit] 10,000 unit SQ TH Changed Gabapentin [Neurontin] 100 mg PO BID@0900,1500 #6 cap Discontinued Calcium Carb-Vit D 500Mg-5Mcg [Oscal 500+D 5 Mcg (200 Iu)] 1 tab PO TID SILVER sulfADIAZINE Cream [Silvadene 1% Cream] 1 applic TOPICAL BID #1 gram Carbidopa-Levodopa 25-100 mg [Sinemet 25-100] 1 tab PO TID Colchicine [Colcrys] 0.6 mg PO BID Discharge Medication List Ezetimibe [Zetia] 10 mg PO DAILY 11/20/13 [History] Lovastatin [Mevacor] 10 mg PO HS 11/20/13 [History] Apixaban [Eliquis] 2.5 mg PO BID 02/17/20 [History] Cyanocobalamin [Vitamin B-12] 500 mcg PO DAILY 02/17/20 [History] Folic Acid 1 mg PO DAILY 02/17/20 [History] Furosemide [Lasix] 40 mg PO DAILY 04/25/20 [History] sitaGLIPtin [Januvia] 50 mg PO DAILY 04/25/20 [History] Denosumab [Prolia] 60 mg SQ Q180D 02/05/21 [History] Docusate [Colace] 100 mg PO BID 02/05/21 [History] Epoetin Obed [Procrit] 10,000 unit SQ TH 02/05/21 [History] Ferrous Sulfate [Iron (65 MG Elemental)] 325 mg PO DAILY 02/05/21 [History] Metoprolol Tartrate [Lopressor] 12.5 mg PO BID 02/05/21 [History] Carbidopa-Levodopa 25-100 mg [Sinemet 25-100 mg] 1 each PO QID tab 02/10/21 [Rx] Gabapentin [Neurontin] 100 mg PO BID@0900,1500 #6 cap 02/10/21 [Rx] Gabapentin [Neurontin] 200 mg PO HS #6 cap 02/10/21 [Rx] traMADol HCl [Ultram] 50 mg PO QID PRN #9 tab 02/10/21 [Rx] Follow up Appointment(s)/Referral(s): Aaliyah Evans MD [Primary Care Provider] - 1-2 days Discharge Disposition: TRANSFER TO SNF/ECF
[2021-02-10] MEDS: traMADol 50 MG TAB PO PRN (09:52)
== END 2021-02-10 11:00 | DRG 683 ==
LOC: EC 12:29 → 5NMEDONC 15:06 → 6NMEDSUR 19:38 → OBSVTOIN 02-07 15:11
PROVIDERS: ADMIT Internal Medicine; ATTEND Internal Medicine
DX: N17.9 Acute kidney failure, unspecified (principal); I13.0 Hypertensive heart and chronic kidney disease with heart failure and stage 1 through stage 4 chronic kidney disease, or unspecified chronic kidney disease; I48.20 Chronic atrial fibrillation, unspecified; I50.22 Chronic systolic (congestive) heart failure; Z20.822 Contact with and (suspected) exposure to COVID-19; N18.32 Chronic kidney disease, stage 3b; E11.22 Type 2 diabetes mellitus with diabetic chronic kidney disease; E11.51 Type 2 diabetes mellitus with diabetic peripheral angiopathy without gangrene; E78.5 Hyperlipidemia, unspecified; M47.812 Spondylosis without myelopathy or radiculopathy, cervical region; M85.88 Other specified disorders of bone density and structure, other site; I25.10 Atherosclerotic heart disease of native coronary artery without angina pectoris; J44.9 Chronic obstructive pulmonary disease, unspecified; G20 Parkinson's disease; E83.39 Other disorders of phosphorus metabolism; E83.52 Hypercalcemia; E87.5 Hyperkalemia; E86.0 Dehydration; K59.00 Constipation, unspecified; M10.9 Gout, unspecified; G47.30 Sleep apnea, unspecified; I25.2 Old myocardial infarction; Z79.01 Long term (current) use of anticoagulants; Z74.01 Bed confinement status; Z79.84 Long term (current) use of oral hypoglycemic drugs; Z79.899 Other long term (current) drug therapy; Z86.73 Personal history of transient ischemic attack (TIA), and cerebral infarction without residual deficits; Z87.891 Personal history of nicotine dependence; Z90.710 Acquired absence of both cervix and uterus; Z95.1 Presence of aortocoronary bypass graft; Z88.8 Allergy status to other drugs, medicaments and biological substances; Z88.5 Allergy status to narcotic agent; Z95.820 Peripheral vascular angioplasty status with implants and grafts; Z87.820 Personal history of traumatic brain injury
CPT/HCPCS: 72100; 72170; 80048; 80053; 82330; 82652; 83735; 83970; 84100; 84165; 84443; 85025; 87635; 99285

== ENCOUNTER 2021-02-11 17:43 | Observation (INO) | payer MEDICARE, OTHER ==
--- NOTE | 2021-02-11 21:06 | ED ---
General Adult HPI - General Chief complaint: Recheck/Abnormal Lab/Rx Stated complaint: Covid+ Time Seen by Provider: 02/11/21 20:08 Source: patient, EMS, RN notes reviewed Mode of arrival: EMS Limitations: no limitations - History of Present Illness Initial comments: 80-year-old female presents emergency Department with chief complaint of being COVID-19 positive. Patient was discharged from the hospital yesterday went to [facility]. Patient had COVID-19 testing as routine testing and tested positive. Patient states she has minimal cough no other symptoms. Patient states she is unvaccinated. Patient was sent here as he cannot keep COVID-19 patient at [facility] on the [address] - Related Data Home Medications Medication Instructions Recorded Confirmed Ezetimibe [Zetia] 10 mg PO DAILY 11/20/13 02/05/21 Lovastatin [Mevacor] 10 mg PO HS 11/20/13 02/05/21 Apixaban [Eliquis] 2.5 mg PO BID 02/17/20 02/05/21 Cyanocobalamin [Vitamin B-12] 500 mcg PO DAILY 02/17/20 02/05/21 Folic Acid 1 mg PO DAILY 02/17/20 02/05/21 Furosemide [Lasix] 40 mg PO DAILY 04/25/20 02/05/21 sitaGLIPtin [Januvia] 50 mg PO DAILY 04/25/20 02/05/21 Denosumab [Prolia] 60 mg SQ Q180D 02/05/21 02/05/21 Docusate [Colace] 100 mg PO BID 02/05/21 02/05/21 Epoetin Obed [Procrit] 10,000 unit SQ TH 02/05/21 02/05/21 Ferrous Sulfate [Iron (65 MG 325 mg PO DAILY 02/05/21 02/05/21 Elemental)] Metoprolol Tartrate [Lopressor] 12.5 mg PO BID 02/05/21 02/05/21 Previous Rx's Medication Instructions Recorded Carbidopa-Levodopa 25-100 mg 1 each PO QID tab 02/10/21 [Sinemet 25-100 mg] Gabapentin [Neurontin] 100 mg PO BID@0900,1500 #6 cap 02/10/21 Gabapentin [Neurontin] 200 mg PO HS #6 cap 02/10/21 traMADol HCl [Ultram] 50 mg PO QID PRN #9 tab 02/10/21 Allergies Allergy/AdvReac Type Severity Reaction Status Date / Time albuterol [From DuoNeb] AdvReac Nausea Verified 02/11/21 18:51 cortisone AdvReac PAIN Verified 02/11/21 18:51 hydrocodone AdvReac Nausea Verified 02/11/21 18:51 ipratropium [From DuoNeb] AdvReac Nausea Verified 02/11/21 18:51 procaine HCl [From Novocain] AdvReac pain Verified 02/11/21 18:51 allergy medicines AdvReac "dries me Uncoded 02/11/21 18:51 out, bloody noses,generalized pain" Review of Systems ROS Statement: Those systems with pertinent positive or pertinent negative responses have been documented in the HPI. ROS Other: All systems not noted in ROS Statement are negative. Past Medical History Past Medical History: COPD, Diabetes Mellitus, Hyperlipidemia, Hypertension, Myocardial Infarction ([place]), Sleep Apnea/CPAP/BIPAP Additional Past Medical History / Comment(s): tremors,NO left arm blood draw or blood pressure(vessel harvested for CABG), blockages in angelica legs, Coonstipation, gout, PAD Last Myocardial Infarction Date:: 1999 History of Any Multi-Drug Resistant Organisms: None Reported Past Surgical History: Appendectomy, Coronary Bypass/CABG, Heart Catheterization, Hysterectomy, Tonsillectomy Additional Past Surgical History / Comment(s): angiogram. Right neck lymphnode removal Past Anesthesia/Blood Transfusion Reactions: No Reported Reaction Past Psychological History: No Psychological Hx Reported Smoking Status: Former smoker Past Alcohol Use History: None Reported Past Drug Use History: None Reported - Past Family History Mother Family Medical History: COPD, Myocardial Infarction ([place]) Brother(s) Family Medical History: Cancer Additional Family Medical History / Comment(s): LUNG CANCER Son(s) Family Medical History: Cancer Additional Family Medical History / Comment(s): COLON CANCER Sister(s) Family Medical History: Cancer Additional Family Medical History / Comment(s): (2) SISTERS HAD BREAST CANCER. General Exam Limitations: no limitations General appearance: alert, in no apparent distress Head exam: Present: atraumatic, normocephalic, normal inspection Eye exam: Present: normal appearance, PERRL, EOMI. Absent: scleral icterus, conjunctival injection, periorbital swelling Respiratory exam: Present: normal lung sounds bilaterally. Absent: respiratory distress, wheezes, rales, rhonchi, stridor Cardiovascular Exam: Present: regular rate, normal rhythm, normal heart sounds. Absent: systolic murmur, diastolic murmur, rubs, gallop, clicks Course Vital Signs 02/11/21 02/11/21 02/11/21 18:52 20:27 20:28 Temperature 99.1 F Pulse Rate 54 L 57 L Respiratory 20 20 16 Rate Blood Pressure 104/49 124/53 O2 Sat by Pulse 95 93 L Oximetry Medical Decision Making - Medical Decision Making Patient will be admitted for placement. Patient has not been admitted for COVID-19 reasons. She has not hypoxic. Disposition Clinical Impression: COVID-19 Disposition: ADMITTED IP TO THIS HOSP Condition: Fair Referrals: Aaliyah Evans MD [Primary Care Provider] - 1-2 days
[2021-02-11 21:49] LABS: Anisocytosis Slight; Basophils % (A) 0 %; Eosinophils # (A) 0.4 k/uL (0-0.7); Eosinophils % (A) 8 %; HCT 26.8 % (34.0-46.0); Hyperchromasia Slight; Lymphocytes # (A) 1.4 k/uL (1.0-4.8); Lymphocytes % (A) 29 %; MCH 34.5 pg (25.0-35.0); MCHC 34.8 g/dL (31.0-37.0); MCV 99.3 fL (80.0-100.0); Macrocytosis Slight; Monocytes # (A) 0.4 k/uL (0-1.0); Monocytes % (A) 8 %; Neutrophils # (A) 2.5 k/uL (1.3-7.7); Neutrophils % (A) 51 %; Platelet Count 134 k/uL (150-450); Poikilocytosis Moderate; RDW 17.4 % (11.5-15.5); WBC 4.9 k/uL (3.8-10.6)
[2021-02-11 21:57] LABS: Chloride 97 mmol/L (98-107)
[2021-02-11 22:02] LABS: ALT <6 U/L (4-34); AST 35 U/L (14-36); African American GFR (CKD) 23 (>60 ml/min/1.73 sqM); Albumin 3.7 g/dL (3.5-5.0); Alkaline Phosphatase 69 U/L (38-126); Anion Gap 10 mmol/L; Blood Urea Nitrogen 43 mg/dL (7-17); C Reactive Protein 3.1 mg/dL (<1.0); Calcium 8.6 mg/dL (8.4-10.2); Carbon Dioxide 23 mmol/L (22-30); Glucose 111 mg/dL (74-99); HGB 9.3 gm/dL (11.4-16.0); LDH 366 U/L (313-618); Magnesium 2.2 mg/dL (1.6-2.3); Non-African American GFR(CKD) 20 (>60 ml/min/1.73 sqM); Potassium 4.6 mmol/L (3.5-5.1); Sodium 130 mmol/L (137-145); Total Bilirubin 0.3 mg/dL (0.2-1.3); Total Protein 7.1 g/dL (6.3-8.2)
--- NOTE | 2021-02-11 22:25 | XR ---
EXAMINATION TYPE: XR chest 2V DATE OF EXAM: 02/11/2021 COMPARISON: 04/25/2020 HISTORY: Fall. Pain TECHNIQUE: 2 views FINDINGS: Heart is enlarged. There is no gross heart failure. There are sternal wires. Thoracic aorta is atheromatous. There is some linear density left lung base. There is slight blunting of the costop hrenic angles. IMPRESSION: Small pleural effusions are improved compared to old exam. No obvious heart failure. Pulm onary congestion is improved.
--- NOTE | 2021-02-12 00:15 | P.HPIM ---
History of Present Illness H&P Date: 02/11/21 Chief Complaint: Tested positive for Covid 80-year-old female complex past medical history CKD type III, A. fib on anticoagulation, chronic systolic CHF with left ventricular ejection fraction 4550 percent Patient was hospitalized recently discharged yesterday where she was treated for progressive generalized weakness and acute kidney injury she was evaluated by neurology and her medications were adjusted as it was thought to be due to progressive Parkinson disease. Patient was discharged yesterday to [facility] on the [facility] however today upon routine testing she tested positive for Covid and further policy they couldn't keep her at their facility and sent her back to our hospital. Age and otherwise reports no symptoms she denies any fevers or chills denies any generalized myalgias or body aches, denies any chest pain or shortness of breath, denies any nausea or vomiting or abdominal pain denies any diarrhea sore throat close taste or smell sensation. Patient is and vaccinated against Covid. She is reporting mild chronic cough that has unchanged Upon evaluation in the ED vital signs are stable blood work overall is stable compared to most recent blood work done yesterday she has chronic anemia, CK D stage III. Chest x-ray showed improvement compared to most recent chest x-ray where she had some pulmonary vascular congestion Review of Systems Pertinent positives as noted in HPI. All other systems were reviewed and are negative Past Medical History Past Medical History: COPD, Diabetes Mellitus, Hyperlipidemia, Hypertension, Myocardial Infarction ([place]), Sleep Apnea/CPAP/BIPAP Additional Past Medical History / Comment(s): tremors,NO left arm blood draw or blood pressure(vessel harvested for CABG), blockages in angelica legs, Coonstipation, gout, PAD Last Myocardial Infarction Date:: 1999 History of Any Multi-Drug Resistant Organisms: None Reported Past Surgical History: Appendectomy, Coronary Bypass/CABG, Heart Catheterization, Hysterectomy, Tonsillectomy Additional Past Surgical History / Comment(s): angiogram. Right neck lymphnode removal Past Anesthesia/Blood Transfusion Reactions: No Reported Reaction Past Psychological History: No Psychological Hx Reported Smoking Status: Former smoker Past Alcohol Use History: None Reported Past Drug Use History: None Reported - Past Family History Mother Family Medical History: COPD, Myocardial Infarction ([place]) Brother(s) Family Medical History: Cancer Additional Family Medical History / Comment(s): LUNG CANCER Son(s) Family Medical History: Cancer Additional Family Medical History / Comment(s): COLON CANCER Sister(s) Family Medical History: Cancer Additional Family Medical History / Comment(s): (2) SISTERS HAD BREAST CANCER. Medications and Allergies Home Medications Medication Instructions Recorded Confirmed Type Ezetimibe [Zetia] 10 mg PO HS@209911/20/13 02/11/21 History Lovastatin [Mevacor] 10 mg PO HS@209911/20/13 02/11/21 History Apixaban [Eliquis] 2.5 mg PO BID@09,209902/17/20 02/11/21 History Cyanocobalamin [Vitamin B-12] 500 mcg PO DAILY@89902/17/20 02/11/21 History Folic Acid 1 mg PO HS@209902/17/20 02/11/21 History Furosemide [Lasix] 40 mg PO DAILY@0900 04/25/20 02/11/21 History Docusate [Colace] 100 mg PO BID@09,209902/05/21 02/11/21 History Epoetin Obed [Procrit] 10,000 unit SQ TH@89902/05/21 02/11/21 History Ferrous Sulfate [Iron (65 MG 325 mg PO DAILY@89902/05/21 02/11/21 History Elemental)] Metoprolol Tartrate [Lopressor] 12.5 mg PO BID@0900,209902/05/21 02/11/21 History traMADol HCl [Ultram] 50 mg PO QID PRN #9 tab 02/10/21 02/11/21 Rx Carbidopa-Levodopa 25-100 mg 1 tab PO QID 02/11/21 02/11/21 History [Sinemet 25-100 mg] Gabapentin [Neurontin] 100 mg PO BID@0900,1700 02/11/21 02/11/21 History Gabapentin [Neurontin] 200 mg PO HS@209902/11/21 02/11/21 History Linagliptin [Tradjenta] 5 mg PO DAILY@0900 02/11/21 02/11/21 History Allergies Allergy/AdvReac Type Severity Reaction Status Date / Time albuterol [From DuoNeb] AdvReac Nausea Verified 02/11/21 21:24 cortisone AdvReac PAIN Verified 02/11/21 21:24 hydrocodone AdvReac Nausea Verified 02/11/21 21:24 ipratropium [From DuoNeb] AdvReac Nausea Verified 02/11/21 21:24 procaine HCl [From Novocain] AdvReac pain Verified 02/11/21 21:24 allergy medicines AdvReac "dries me Uncoded 02/11/21 21:24 out, bloody noses,generalized pain" Physical Exam Vitals: Vital Signs Temp Pulse Resp BP Pulse Ox 02/11/21 22:46 66 18 126/45 94 L 02/11/21 22:00 62 18 95 02/11/21 20:28 57 L 16 124/53 93 L 02/11/21 20:27 20 02/11/21 18:52 99.1 F 54 L 20 104/49 95 Intake and Output 02/11/21 02/11/21 02/12/21 14:59 22:59 06:59 Other: Weight 77.564 kg Constitutional: No acute distress, conversant, pleasant Eyes: Anicteric sclerae, moist conjunctiva, Pupils equal round reactive to light ENMT: NC/AT Oropharynx clear, no erythema, or exudates Neck: Supple, FROM, no masses, or JVD No carotid bruits No thyromegaly Lungs: Clear to auscultation Clear to percussion Normal respiratory effort, no accessory muscle use Cardiovascular: Heart regular in rate and rhythm, No murmurs, gallops, or rubs No peripheral edema Abdominal: Soft Nontender, no guarding, rebound or rigidity Abdomen moving with respiration Normoactive bowel sounds No hepatomegaly, No splenomegaly No palpable mass No abdominal wall hernia noted Skin: Normal temperature, tone, texture, turgor No induration No subcutaneous nodules No rash, lesions No ulcers Extremities: No digital cyanosis No clubbing Pedal pulses intact and symmetrical Radial pulses intact and symmetrical No calf tenderness Psychiatric: Alert and oriented to person, place and time Appropriate affect fair judgement Neuro Muscles Strength 3/5 bilateral lower extrmieties , 4/5 bilateral upper extremities Sensation to light touch grossly present throughout Cranial nerves II-XII grossly intact Lymphatics: no palpable cervical or supraclavicular , or inguinal lymph nodes Results CBC & Chem 7: 02/11/21 21:21 11/03/21 21:21 Labs: Abnormal Lab Results - Last 24 Hours (Table) 02/11/21 02/11/21 Range/Units 21:21 21:21 RBC 2.70 L (3.80-5.40) m/uL Hgb 9.3 L D (11.4-16.0) gm/dL Hct 26.8 L (34.0-46.0) % RDW 17.4 H (11.5-15.5) % Plt Count 134 L (150-450) k/uL Sodium 130 L (137-145) mmol/L Chloride 97 L (98-107) mmol/L BUN 43 H (7-17) mg/dL Creatinine 2.23 H (0.52-1.04) mg/dL Glucose 111 H (74-99) mg/dL C-Reactive Protein 3.1 H (<1.0) mg/dL Assessment and Plan Assessment: COVID infection asymptomatic supportive care supplemental oxygen as needed monitor vital signs unvaccinated consider regeneron chronic conditions generalized weakness, progressive parkinson disease, resume homemeds afib on anticoagulation CKD 3 anemia of chronic disease DM insulin sliding scale hyperlipidemia hypertension H/O CAD s/p CABG peripheral vascular disease resume home meds full code anticipated length of stay < 2 midnights anticipated discharge , MD
[2021-02-12] MEDS: CARBIDOPA-LEVODOPA 25-100 MG 1 EACH TAB PO SCH ×5 (01:18→21:21)
[2021-02-12 07:45] LABS: Glucose,Whole Blood 131 mg/dL (75-99)
[2021-02-12] MEDS: FERROUS SULFATE 325 MG TAB PO SCH (08:05)
[2021-02-12] MEDS: DOCUSATE 100 MG CAP PO SCH ×2 (08:06→21:20)
[2021-02-12] MEDS: LINAGLIPTIN 5 MG TABLET PO SCH (08:06)
[2021-02-12] MEDS: GABAPENTIN 100 MG CAP PO SCH ×2 (08:06→17:05)
[2021-02-12] MEDS: FUROSEMIDE 40 MG TAB PO SCH (08:06)
[2021-02-12] MEDS: METOPROLOL TARTRATE 12.5 MG TAB PO SCH ×2 (08:06→21:21)
[2021-02-12] MEDS: APIXABAN 2.5 MG TABLET PO SCH ×2 (08:07→21:20)
[2021-02-12 12:27] LABS: Glucose,Whole Blood 153 mg/dL (75-99)
[2021-02-12] MEDS: traMADol 50 MG TAB PO PRN ×2 (12:59→21:20)
[2021-02-12 17:37] LABS: Glucose,Whole Blood 123 mg/dL (75-99)
--- NOTE | 2021-02-12 18:42 | P.PN ---
<Rl Woodward - Last Filed: 02/12/21 18:17> Subjective Progress Note Date: 02/12/21 Hospital course: Patient is a very pleasant 80-year-old female with a past medical history of CAD with previous CABG, chronic systolic heart failure with an EF of 45-50%, atrial fibrillation on anticoagulation with Eliquis, hypertension, hyperlipidemia, wot-tsfflmr-ojkoboyor diabetes mellitus, CKD stage III, and Parkinson's disease. Patient was recently hospitalized from 02/07/21 through 02/10/21 secondary to progressive weakness, dehydration with hyperglycemia, and an acute kidney injury on chronic kidney disease. Patient's condition overall improved throughout her hospital stay and was transferred to a subacute rehab, [facility] on the [place] for continued PT/OT. Patient had negative Covid test prior to transfer and upon arrival at [facility], a routine Covid test was reportedly completed with positive results and patient was sent back to our facility as per their policy they are not able to keep patient at their facility with positive COVID results. Patient is not vaccinated against Covid 19 virus and does report chronic long-term cough from congestive heart failure but states cough is unchanged denies any other symptoms at this time including headache, fevers, chills, diaphoresis, chest pain, shortness of breath, dyspnea with exertion, or any other complaints. Labs drawn in ED reveal hemoglobin consistent with patient's chronic anemia with stable hemoglobin of 9.3, at baseline level. BMP revealing mild hyponatremia and consistent with patient's stage III CKD with BUN 43, and creatinine of 2.23 with GFR of 20 at baseline levels. Inflammatory markers revealing elevated CRP of 3.1 with normal LDH of 366. Ferritin elevated at at 301. Chest x-ray did reveal small pleural effusions and pulmonary congestion improved when compared to prior exam. Physical exam: Patient was seen and fully evaluated at the bedside. Respirations even, regular, and unlabored on room air with SpO2 of 98%. Patient requesting repeat testing as she does not believe she has Covid infection. Patient continues to deny any symptoms or complaints at this time. Vital signs reviewed and stable. General: Nontoxic, no distress and appears stated age. Derm: Skin warm and dry, normal coloration for ethnicity. Head: Atraumatic, normocephalic and symmetric. Eyes: EOMs intact, no lid lag, and anicteric sclera Mouth: no lip lesions, mucus membranes moist Cardiovascular: regular rate and rhythm with normal S1S2, no murmur, positive posterior tibial pulses bilaterally, and cap refill < 2 seconds. Lungs: Respirations even, regular, and unlabored on room air. Lungs CTA bilaterally, no rhonchi, no rales, no wheezing, and no accessory muscle usage. Abdominal: soft, nontender to palpation, no guarding, no appreciable organomegaly Ext: ROM intact. No gross muscle atrophy, no edema, no contractures Neuro: Speech clear, face symmetrical and CN II-XII grossly intact with no noted focal neuro deficits Psych: Alert and oriented to person, place, time, and situation. Appropriate and pleasant affect. Assessment and Plan of Care: Asymptomatic COVID infection and non-vaccinated individual -Repeat Covid PCR -Supportive care -Provide patient with supplemental oxygenation as needed. -Inflammatory markers revealing elevated CRP of 3.1 with normal LDH of 366. Ferritin elevated at at 301. -We will follow inflammatory markers with repeat a.m. labs. -Consider regeneron, pending repeat PCR results -Zinc, vitamin C, and vitamin D. Generalized weakness, progressive -Continue PT/OT and fall precautions. -Provide safe and supportive care with assistance as needed. Parkinson disease Paroxysmal Atrial fibrillation -Continue anticoagulation with Eliquis. CKD stage III -BMP revealing consistent with patient's stage III CKD with BUN 43, and creatinine of 2.23 with GFR of 20 at baseline levels Anemia of chronic disease, stable Hyperlipidemia -Continue daily medication regimen with atorvastatin 10 mg nightly and Zetia 10 mg nightly. Hypertension Monitor vital signs and continue daily medication regimen with metoprolol Other chronic medical conditions include: CAD with previous CABG, peripheral vascular disease DVT prophylaxis: Eliquis Discussed with: Patient and RN Anticipated discharge date: Clinical course to determine Anticipated discharge place: Patient requesting not to go back to SNF, now requesting home with home care. A total of 45 minutes was spent on the care of this complex patient more than 50% of the time was spent in counseling and care coordination. Objective - Vital Signs Vital signs: Vital Signs Temp 98.3 F 02/12/21 07:00 Pulse 60 02/12/21 07:00 Resp 16 02/12/21 07:00 BP 123/74 02/12/21 07:00 Pulse Ox 94 L 02/12/21 07:00 Intake & Output 02/11/21 02/12/21 02/12/21 18:59 06:59 18:59 Weight 77.564 kg 77.564 kg Other: # Voids 2 - Labs CBC & Chem 7: 02/11/21 21:21 02/11/21 21:21 Labs: Abnormal Lab Results - Last 24 Hours (Table) 02/11/21 02/11/21 02/12/21 Range/Units 21:21 21:21 07:44 RBC 2.70 L (3.80-5.40) m/uL Hgb 9.3 L D (11.4-16.0) gm/dL Hct 26.8 L (34.0-46.0) % RDW 17.4 H (11.5-15.5) % Plt Count 134 L (150-450) k/uL Sodium 130 L (137-145) mmol/L Chloride 97 L (98-107) mmol/L BUN 43 H (7-17) mg/dL Creatinine 2.23 H (0.52-1.04) mg/dL Glucose 111 H (74-99) mg/dL POC Glucose (mg/dL) 131 H (75-99) mg/dL Ferritin 301.0 H (10.0-291.0) ng/mL C-Reactive Protein 3.1 H (<1.0) mg/dL <Sol Mcnamara - Last Filed: 02/12/21 21:53> Subjective Rl Woodward NP rendered care for this patient independently, reviewed the findings and plan as documented in the note above. I did not physically speak with or examine the patient on this date. Objective - Vital Signs Vital signs: Vital Signs Temp 97.7 F 02/12/21 20:00 Pulse 58 L 02/12/21 20:00 Resp 18 02/12/21 20:00 BP 125/68 02/12/21 20:00 Pulse Ox 97 02/12/21 20:00 Intake & Output 02/12/21 02/12/21 02/13/21 06:59 18:59 06:59 Weight 77.564 kg Other: # Voids 2 3 - Labs CBC & Chem 7: 02/11/21 21:21 02/11/21 21:21 Labs: Abnormal Lab Results - Last 24 Hours (Table) 02/11/21 02/11/21 02/11/21 Range/Units 21:21 21:21 21:21 RBC 2.70 L (3.80-5.40) m/uL Hgb 9.3 L D (11.4-16.0) gm/dL Hct 26.8 L (34.0-46.0) % RDW 17.4 H (11.5-15.5) % Plt Count 134 L (150-450) k/uL Sodium 130 L (137-145) mmol/L Chloride 97 L (98-107) mmol/L BUN 43 H (7-17) mg/dL Creatinine 2.23 H (0.52-1.04) mg/dL Glucose 111 H (74-99) mg/dL POC Glucose (mg/dL) (75-99) mg/dL Ferritin 301.0 H (10.0-291.0) ng/mL C-Reactive Protein 3.1 H (<1.0) mg/dL Procalcitonin 0.18 H (0.02-0.09) ng/mL 02/12/21 02/12/21 02/12/21 Range/Units 07:44 12:25 17:35 RBC (3.80-5.40) m/uL Hgb (11.4-16.0) gm/dL Hct (34.0-46.0) % RDW (11.5-15.5) % Plt Count (150-450) k/uL Sodium (137-145) mmol/L Chloride (98-107) mmol/L BUN (7-17) mg/dL Creatinine (0.52-1.04) mg/dL Glucose (74-99) mg/dL POC Glucose (mg/dL) 131 H 153 H 123 H (75-99) mg/dL Ferritin (10.0-291.0) ng/mL C-Reactive Protein (<1.0) mg/dL Procalcitonin (0.02-0.09) ng/mL 02/12/21 Range/Units 21:33 RBC (3.80-5.40) m/uL Hgb (11.4-16.0) gm/dL Hct (34.0-46.0) % RDW (11.5-15.5) % Plt Count (150-450) k/uL Sodium (137-145) mmol/L Chloride (98-107) mmol/L BUN (7-17) mg/dL Creatinine (0.52-1.04) mg/dL Glucose (74-99) mg/dL POC Glucose (mg/dL) 101 H (75-99) mg/dL Ferritin (10.0-291.0) ng/mL C-Reactive Protein (<1.0) mg/dL Procalcitonin (0.02-0.09) ng/mL
[2021-02-12] MEDS ORDERED: GABAPENTIN 100 MG CAP PO SCH (21:00)
[2021-02-12] MEDS ORDERED: FOLIC ACID 1 MG TAB PO SCH (21:00)
[2021-02-12] MEDS ORDERED: EZETIMIBE 10 MG TAB PO SCH (21:00)
[2021-02-12] MEDS ORDERED: ATORVASTATIN 10 MG TAB PO SCH (21:00)
[2021-02-12 21:34] LABS: Glucose,Whole Blood 101 mg/dL (75-99)
[2021-02-13 07:48] LABS: Glucose,Whole Blood 122 mg/dL (75-99)
[2021-02-13] MEDS: METOPROLOL TARTRATE 12.5 MG TAB PO SCH (08:54)
[2021-02-13] MEDS: APIXABAN 2.5 MG TABLET PO SCH (08:54)
[2021-02-13] MEDS: GABAPENTIN 100 MG CAP PO SCH (08:54)
[2021-02-13] MEDS: FERROUS SULFATE 325 MG TAB PO SCH (08:54)
[2021-02-13] MEDS: FUROSEMIDE 40 MG TAB PO SCH (08:54)
[2021-02-13] MEDS: DOCUSATE 100 MG CAP PO SCH (08:54)
[2021-02-13] MEDS: CARBIDOPA-LEVODOPA 25-100 MG 1 EACH TAB PO SCH ×2 (08:54→13:56)
[2021-02-13] MEDS: LINAGLIPTIN 5 MG TABLET PO SCH (08:54)
[2021-02-13] MEDS ORDERED: ASCORBIC ACID 500 MG TAB PO SCH (09:00)
[2021-02-13] MEDS ORDERED: CHOLECALCIFEROL 25 MCG (1000 IU) TABLET PO SCH (09:00)
[2021-02-13] MEDS ORDERED: ZINC SULFATE 220 MG CAP PO SCH (09:00)
[2021-02-13 09:13] LABS: Basophils # (A) 0.01 X 10*3/uL (0.00-0.10); Basophils % (A) 0.2 %; Eosinophils # (A) 0.33 X 10*3/uL (0.04-0.35); Eosinophils % (A) 7.7 %; HCT 24.8 % (37.2-46.3); HGB 7.9 g/dL (12.0-15.0); Lymphocytes # (A) 1.08 X 10*3/uL (0.90-5.00); Lymphocytes % (A) 25.4 %; MCH 33.3 pg (27.0-32.0); MCHC 31.9 g/dL (32.0-37.0); MCV 104.6 fL (80.0-97.0); Mean Platelet Volume 10.9 fL (9.5-12.2); Monocytes # (A) 0.48 X 10*3/uL (0.20-1.00); Monocytes % (A) 11.3 %; Neutrophils # (A) 2.33 X 10*3/uL (1.80-7.70); Neutrophils % (A) 54.7 %; Platelet Count 123 X 10*3/uL (140-440); RBC 2.37 X 10*6/uL (4.10-5.20); RDW 16.6 % (11.5-14.5); WBC 4.26 X 10*3/uL (4.50-10.00)
[2021-02-13 09:51] LABS: African American GFR (CKD) 24.5 (60.0-200.0); Anion Gap 9.8 mmol/L (4.00-12.00); BUN/Creat Ratio 19.91 Ratio (12.00-20.00); Blood Urea Nitrogen 42.4 mg/dL (9.0-27.0); Calcium 7.8 mg/dL (8.7-10.3); Carbon Dioxide 23.6 mmol/L (21.6-31.8); Magnesium 2.4 mg/dL (1.5-2.4); Non-African American GFR(CKD) 21.2 (60.0-200.0); Potassium 5.6 mmol/L (3.5-5.5)
[2021-02-13 12:11] LABS: C Reactive Protein 2.2 mg/dL (0.00-0.80)
[2021-02-13 12:26] LABS: Glucose,Whole Blood 146 mg/dL (75-99)
[2021-02-13] MEDS ORDERED: SODIUM CHLORIDE 0.9% 50 ML IVPB ONE ×2 (13:30→14:30)
[2021-02-13] MEDS ORDERED: BAMLANIVIMAB (EUA) 700 MG, ETESEVIMAB (EUA) 1,400 MG in SODIUM CHLORIDE 0.9% 50 ML IVPB ONE (14:00)
[2021-02-13 14:58] LABS: Anisocytosis Slight; Basophils % (A) 0 %; Eosinophils # (A) 0.2 k/uL (0-0.7); Eosinophils % (A) 6 %; HCT 26.9 % (34.0-46.0); HGB 8.9 gm/dL (11.4-16.0); Lymphocytes # (A) 0.7 k/uL (1.0-4.8); Lymphocytes % (A) 20 %; MCH 34.1 pg (25.0-35.0); MCHC 33.2 g/dL (31.0-37.0); Macrocytosis Moderate; Mean Platelet Volume 9.4; Monocytes # (A) 0.3 k/uL (0-1.0); Monocytes % (A) 7 %; Neutrophils # (A) 2.3 k/uL (1.3-7.7); Neutrophils % (A) 64 %; Platelet Count 128 k/uL (150-450); Poikilocytosis Slight; RBC 2.61 m/uL (3.80-5.40); RDW 16.7 % (11.5-15.5); WBC 3.6 k/uL (3.8-10.6)
[2021-02-13 15:23] VITALS: BP 115/62; PULSE 60; RESP 18; TEMP 98.6
[2021-02-13 16:07] LABS: Erythrocyte Sedimentation Rate 106 mm/Hr (0-30)
--- NOTE | 2021-02-13 18:56 | P.DS ---
<Rl Woodward - Last Filed: 02/13/21 18:42> Providers Expected date of discharge: 02/13/21 Hospital Course: Discharge Diagnosis: Asymptomatic COVID infection in non-vaccinated individual Generalized weakness, progressive Paroxysmal Atrial fibrillation CKD stage III Anemia of chronic disease, stable Hyperlipidemia Hypertension CAD with previous CABG Peripheral vascular disease Hospital Course: Patient is a very pleasant 80-year-old female with a past medical history of CAD with previous CABG, chronic systolic heart failure with an EF of 45-50%, atrial fibrillation on anticoagulation with Eliquis, hypertension, hyperlipidemia, ego-[id number]-igmtluqma diabetes mellitus, CKD stage III, and Parkinson's disease. Patient was recently hospitalized from 02/07/21 through 02/10/21 secondary to progressive weakness, dehydration with hyperglycemia, and an acute kidney injury on chronic kidney disease. Patient's condition overall improved throughout her hospital stay and was transferred to a subacute rehab, [facility] on [facility] for continued PT/OT. Patient had negative Covid test prior to transfer and upon arrival at [facility], a routine Covid test was reportedly completed with positive results and patient was sent back to our facility as per their policy they are not able to keep patient at their facility with positive COVID results. Patient is not vaccinated against Covid 19 virus and does report chronic long-term cough from congestive heart failure but states cough is unchanged denies any other symptoms at this time including headache, fevers, chills, diaphoresis, chest pain, shortness of breath, dyspnea with exertion, or any other complaints. Labs drawn in ED reveal hemoglobin consistent with patient's chronic anemia with stable hemoglobin of 9.3, at baseline level. BMP revealing mild hyponatremia and consistent with patient's stage III CKD with BUN 43, and creatinine of 2.23 with GFR of 20 at baseline levels. Inflammatory markers revealing elevated CRP of 3.1 with normal LDH of 366. Ferritin elevated at at 301. Chest x-ray did reveal small pleural effusions and pulmonary congestion improved when compared to prior exam. Patient monitored for greater than 36 hours and continued to deny having any complaints or symptoms of Covid 19 virus infection. Patient remained very adamant that the test was a false positive and that she did not have Covid 19 infection. Discussed with patient recommendations for her to receive monoclonal anti-bodies (BAM-ETA) and despite recommendations, patient stating she did not want to receive any medications because she does not believe she has the infection. Patient refused to be transferred to any other rehabilitation facilities at this time. Patient requesting discharge home with home care. Patient's condition is medically stable and she is stable for discharge home. Patient to be discharged home with [facility] where she will continue to receive PT/OT, nursing care, and a home health aide. Patient was also educated that even though she is asymptomatic from Covid 19 virus infection at this time, it is importantfor her to remain in social isolation for 14 days from date of positive test, if she does not develop symptoms, she may come out of isolation as early as 02/25/21. She was also instructed that if she develops symptoms, it is important to be symptom-free for 2 days prior to coming out of isolation and again the earliest time out of isolation should be 02/25/21. Physical exam: Patient was seen and fully evaluated at the bedside. Respirations even, r egular, and unlabored on room air with SpO2 of 94% this morning. Patient's repeat Covid PCR pending. Patient remains adamant that she does not have the infection. She continues to deny having any complaints or needs at this time including headache, lightheadedness, dizziness, chest pain, palpitations, shortness of breath, changes in frequency or productivity of chronic cough, sinus congestion or drainage, abdominal pain, nausea, vomiting, or experiencing any numbness/tingling/weakness in her extremities. Patient was encouraged to take vitamin C, vitamin D, and zinc and declined. Had discussion with patient about strong recommendations for her to receive monoclonal anti-bodies especially with significant history/risk factors and current diagnosis of asymptomatic Covid infection. Patient remained adamant that she does not want to receive this medication. RN also discussed treatment with monoclonal antibodies with patient at bedside at later time and patient continued to decline. Vital signs reviewed and stable. General: Nontoxic, no distress and appears stated age. Derm: Skin warm and dry, normal coloration for ethnicity. Head: Atraumatic, normocephalic and symmetric. Eyes: EOMs intact, no lid lag, and anicteric sclera Mouth: no lip lesions, mucus membranes moist Cardiovascular: regular rate and rhythm with normal S1S2, no murmur, positive posterior tibial pulses bilaterally, and cap refill < 2 seconds. Lungs: Respirations even, regular, and unlabored on room air. Lungs CTA bilaterally, no rhonchi, no rales, no wheezing, and no accessory muscle usage. Abdominal: soft, nontender to palpation, no guarding, no appreciable organomegaly Ext: ROM intact. No gross muscle atrophy, no edema, no contractures Neuro: Speech clear, face symmetrical and CN II-XII grossly intact with no noted focal neuro deficits Psych: Alert and oriented to person, place, time, and situation. Appropriate and pleasant affect. A total of 45 minutes of time were spent preparing this complex discharge summary. Patient Condition at Discharge: Fair Plan - Discharge Summary Discharge Rx Participant: No New Discharge Prescriptions: No Action Ezetimibe [Zetia] 10 mg PO HS@2100 Lovastatin [Mevacor] 10 mg PO HS@2100 Cyanocobalamin [Vitamin B-12] 500 mcg PO DAILY@0900 Apixaban [Eliquis] 2.5 mg PO BID@899,2099 Folic Acid 1 mg PO HS@2099 Furosemide [Lasix] 40 mg PO DAILY@0900 Docusate [Colace] 100 mg PO BID@09,2099 Metoprolol Tartrate [Lopressor] 12.5 mg PO BID@09,2099 traMADol HCl [Ultram] 50 mg PO QID PRN #9 tab PRN Reason: Pain Gabapentin [Neurontin] 100 mg PO BID@0900,1700 Ferrous Sulfate [Iron (65 MG Elemental)] 325 mg PO DAILY@0900 Epoetin Obed [Procrit] 10,000 unit SQ TH@0900 Carbidopa-Levodopa 25-100 mg [Sinemet 25-100 mg] 1 tab PO QID Linagliptin [Tradjenta] 5 mg PO DAILY@0900 Gabapentin [Neurontin] 200 mg PO HS@2100 Discharge Medication List Ezetimibe [Zetia] 10 mg PO HS@209911/20/13 [History] Lovastatin [Mevacor] 10 mg PO HS@209911/20/13 [History] Apixaban [Eliquis] 2.5 mg PO BID@0900,209902/17/20 [History] Cyanocobalamin [Vitamin B-12] 500 mcg PO DAILY@0900 02/17/20 [History] Folic Acid 1 mg PO HS@209902/17/20 [History] Furosemide [Lasix] 40 mg PO DAILY@0900 04/25/20 [History] Docusate [Colace] 100 mg PO BID@899,209902/05/21 [History] Epoetin Obed [Procrit] 10,000 unit SQ TH@89902/05/21 [History] Ferrous Sulfate [Iron (65 MG Elemental)] 325 mg PO DAILY@89902/05/21 [History] Metoprolol Tartrate [Lopressor] 12.5 mg PO BID@899,209902/05/21 [History] traMADol HCl [Ultram] 50 mg PO QID PRN #9 tab 02/10/21 [Rx] Carbidopa-Levodopa 25-100 mg [Sinemet 25-100 mg] 1 tab PO QID 02/11/21 [History] Gabapentin [Neurontin] 100 mg PO BID@09,17002/11/21 [History] Gabapentin [Neurontin] 200 mg PO HS@209902/11/21 [History] Linagliptin [Tradjenta] 5 mg PO DAILY@89902/11/21 [History] Follow up Appointment(s)/Referral(s): [facility], [NON-STAFF] - 1 Week Aaliyah Evans MD [Primary Care Provider] - 1-2 days Patient Instructions/Handouts: Coronavirus Disease 2019 (COVID-19) Activity/Diet/Wound Care/Special Instructions: Activity: As tolerated. Take breaks as needed. Diet: Heart healthy and carb consistent diet. Avoid salts, or foods with hidden salts such as canned or boxed foods and frozen dinners. Extra salt makes your heart work harder and traps the fluid in your body for longer. Special Instructions: Take all of your medications as directed and remember to keep all of your doctor's appointments and follow-up as needed. You are being discharged home with [facility] consisting of PT/OT, nursing care, and home health aide. Thank you for allowing us to participate in your care, it was truly a pleasure having you for our patient!!! Even though you're asymptomatic from Covid 19 virus infection, it is important to remain on social isolation for 14 days from date of positive test, if you do not develop symptoms you may come out of isolation as early as 02/25/21. If you develop symptoms, it is important to be symptom-free for 2 days prior to coming out of isolation. Discharge Disposition: HOME WITH HOME HEALTH SERVICES <Sol Mcnamara Zuleika - Last Filed: 02/13/21 22:15> Providers Date of admission: 02/11/21 21:27 Attending physician: Anahy Adhikari MD Primary care physician: Aaliyah Evans MD Hospital Course: Rl Woodward NP rendered care for this patient independently, reviewed the findings and plan as documented in the note above. I did not physically speak with or examine the patient on this date.
== END 2021-02-13 16:22 | disposition home health service (06) ==
LOC: EC 17:43 → 6NMEDSUR 21:27
PROVIDERS: ADMIT Internal Medicine; ATTEND Internal Medicine
DX: U07.1 COVID-19 (principal); I48.0 Paroxysmal atrial fibrillation; E11.22 Type 2 diabetes mellitus with diabetic chronic kidney disease; N18.30 Chronic kidney disease, stage 3 unspecified; D63.8 Anemia in other chronic diseases classified elsewhere; E78.5 Hyperlipidemia, unspecified; I25.10 Atherosclerotic heart disease of native coronary artery without angina pectoris; I13.0 Hypertensive heart and chronic kidney disease with heart failure and stage 1 through stage 4 chronic kidney disease, or unspecified chronic kidney disease; I50.22 Chronic systolic (congestive) heart failure; E11.51 Type 2 diabetes mellitus with diabetic peripheral angiopathy without gangrene; E87.1 Hypo-osmolality and hyponatremia; I25.2 Old myocardial infarction; G20 Parkinson's disease; F02.80 Dementia in other diseases classified elsewhere, unspecified severity, without behavioral disturbance, psychotic disturbance, mood disturbance, and anxiety; J44.9 Chronic obstructive pulmonary disease, unspecified; M10.9 Gout, unspecified; Z79.899 Other long term (current) drug therapy; Z79.01 Long term (current) use of anticoagulants; Z79.84 Long term (current) use of oral hypoglycemic drugs; Z88.4 Allergy status to anesthetic agent; Z88.5 Allergy status to narcotic agent; Z88.8 Allergy status to other drugs, medicaments and biological substances; Z95.1 Presence of aortocoronary bypass graft; Z87.891 Personal history of nicotine dependence; Z90.710 Acquired absence of both cervix and uterus; Z90.49 Acquired absence of other specified parts of digestive tract; Z82.5 Family history of asthma and other chronic lower respiratory diseases; Z82.49 Family history of ischemic heart disease and other diseases of the circulatory system; Z80.3 Family history of malignant neoplasm of breast; Z80.1 Family history of malignant neoplasm of trachea, bronchus and lung; Z80.0 Family history of malignant neoplasm of digestive organs
CPT/HCPCS: 99285; 36415; 97162; 97165; 80053; 80048; 85652; 82728; 83615 ×2; 83735 ×2; 85025 ×2; 86140 ×2; 84145; 71046; G0378 ×3; U0003; U0005

== ENCOUNTER 2021-02-22 21:38 | Inpatient (IN) | payer MEDICARE, OTHER ==
[2021-02-22] MEDS ORDERED: ACETAMINOPHEN TAB 500 MG TAB PO STA (21:50)
[2021-02-22] MEDS ORDERED: DEXAMETHASONE SOD PHOSPHATE 10 MG/ML 1 ML VIAL IVP STA (21:50)
[2021-02-22] MEDS ORDERED: SODIUM CHLORIDE 0.9% 1,000 ML IV STA (21:50)
[2021-02-22] MEDS ORDERED: KETOROLAC 15 MG/ML 1 ML VIAL IVP STA (21:50)
--- NOTE | 2021-02-22 22:18 | XR ---
EXAMINATION TYPE: XR chest 1V portable DATE OF EXAM: 02/22/2021 COMPARISON: 02/11/2021 HISTORY: Pneumonia. TECHNIQUE: Single view FINDINGS: There is some mild airspace infiltrate left lower lobe. The other lung tate are fairly cl ear. There are sternal wires. There is no heart failure. Costophrenic angles are clear. Thoracic aort a is atheromatous. IMPRESSION: There is some minimal left lower lobe infiltrate. No significant change.
--- NOTE | 2021-02-22 22:29 | ED ---
Weakness HPI - General Chief complaint: Weakness Stated complaint: Weakness Time Seen by Provider: 02/22/21 21:46 Source: EMS Mode of arrival: EMS Limitations: no limitations, physical limitation - Related Data Home Medications Medication Instructions Recorded Confirmed Ezetimibe [Zetia] 10 mg PO HS@209911/20/13 02/11/21 Lovastatin [Mevacor] 10 mg PO HS@209911/20/13 02/11/21 Apixaban [Eliquis] 2.5 mg PO BID@09,209902/17/20 02/11/21 Cyanocobalamin [Vitamin B-12] 500 mcg PO DAILY@0902/17/20 02/11/21 Folic Acid 1 mg PO HS@209902/17/20 02/11/21 Furosemide [Lasix] 40 mg PO DAILY@0900 04/25/20 02/11/21 Docusate [Colace] 100 mg PO BID@0900,209902/05/21 02/11/21 Epoetin Obed [Procrit] 10,000 unit SQ TH@89902/05/21 02/11/21 Ferrous Sulfate [Iron (65 MG 325 mg PO DAILY@0902/05/21 02/11/21 Elemental)] Metoprolol Tartrate [Lopressor] 12.5 mg PO BID@899,209902/05/21 02/11/21 Carbidopa-Levodopa 25-100 mg 1 tab PO QID 02/11/21 02/11/21 [Sinemet 25-100 mg] Gabapentin [Neurontin] 100 mg PO BID@0900,1700 02/11/21 02/11/21 Gabapentin [Neurontin] 200 mg PO HS@209902/11/21 02/11/21 Linagliptin [Tradjenta] 5 mg PO DAILY@0900 02/11/21 02/11/21 Previous Rx's Medication Instructions Recorded traMADol HCl [Ultram] 50 mg PO QID PRN #9 tab 02/10/21 Allergies Allergy/AdvReac Type Severity Reaction Status Date / Time albuterol [From DuoNeb] AdvReac Nausea Verified 02/11/21 21:24 cortisone AdvReac PAIN Verified 02/11/21 21:24 hydrocodone AdvReac Nausea Verified 02/11/21 21:24 ipratropium [From DuoNeb] AdvReac Nausea Verified 02/11/21 21:24 procaine HCl [From Novocain] AdvReac pain Verified 02/11/21 21:24 allergy medicines AdvReac "dries me Uncoded 02/11/21 21:24 out, bloody noses,generalized pain" Review of Systems ROS Statement: Those systems with pertinent positive or pertinent negative responses have been documented in the HPI. ROS Other: All systems not noted in ROS Statement are negative. Past Medical History Past Medical History: COPD, Diabetes Mellitus, Hyperlipidemia, Hypertension, Myocardial Infarction ([place]), Sleep Apnea/CPAP/BIPAP Additional Past Medical History / Comment(s): tremors,NO left arm blood draw or blood pressure(vessel harvested for CABG), blockages in angelica legs, Coonstipation, gout, PAD Last Myocardial Infarction Date:: 1999 History of Any Multi-Drug Resistant Organisms: None Reported Past Surgical History: Appendectomy, Coronary Bypass/CABG, Heart Cathete rization, Hysterectomy, Tonsillectomy Additional Past Surgical History / Comment(s): angiogram. Right neck lymphnode removal Past Anesthesia/Blood Transfusion Reactions: No Reported Reaction Past Psychological History: No Psychological Hx Reported Smoking Status: Former smoker Past Alcohol Use History: None Reported Past Drug Use History: None Reported - Past Family History Mother Family Medical History: COPD, Myocardial Infarction ([place]) Brother(s) Family Medical History: Cancer Son(s) Family Medical History: Cancer Sister(s) Family Medical History: Cancer General Exam Limitations: no limitations, physical limitation Course Vital Signs 02/22/21 02/22/21 02/23/21 21:48 23:30 01:07 Temperature 97.7 F Pulse Rate 91 89 100 Respiratory 20 18 18 Rate Blood Pressure 104/74 107/78 113/78 O2 Sat by Pulse 95 97 97 Oximetry EKG Findings - EKG Comments: EKG Findings:: ELG shows rate of 90. 226 QRS 88 QTc 442 Medical Decision Making - Lab Data Result diagrams: 02/22/21 22:13 02/22/21 22:13 Lab Results 02/22/21 02/22/21 02/22/21 Range/Units 22:13 22:13 22:13 WBC 3.3 L (3.8-10.6) k/uL RBC 3.23 L (3.80-5.40) m/uL Hgb 10.7 L (11.4-16.0) gm/dL Hct 31.0 L (34.0-46.0) % MCV 96.1 D (80.0-100.0) fL MCH 33.2 (25.0-35.0) pg MCHC 34.5 (31.0-37.0) g/dL RDW 17.3 H (11.5-15.5) % Plt Count 274 D (150-450) k/uL MPV 7.4 Neutrophils % (Manual) 56 % Band Neuts % (Manual) 8 % Lymphocytes % (Manual) 29 % Monocytes % (Manual) 7 % Neutrophils # (Manual) 2.10 (1.3-7.7) k/uL Lymphocytes # (Manual) 0.96 L (1.0-4.8) k/uL Monocytes # (Manual) 0.23 (0-1.0) k/uL Nucleated RBCs 0 (0-0) /100 WBC Manual Slide Review Performed Hyperchromasia Slight Poikilocytosis Moderate Poikilocytosis (manual Present Anisocytosis Slight Anisocytosis (manual) Present Macrocytosis Slight Ovalocytes Present PT 11.2 (9.0-12.0) sec INR 1.1 (<1.2) APTT 25.8 (22.0-30.0) sec Sodium 131 L (137-145) mmol/L Potassium 4.1 (3.5-5.1) mmol/L Chloride 100 (98-107) mmol/L Carbon Dioxide 13 L (22-30) mmol/L Anion Gap 18 mmol/L BUN 109 H* (7-17) mg/dL Creatinine 2.89 H (0.52-1.04) mg/dL Est GFR (CKD-EPI)AfAm 17 (>60 ml/min/1.73 sqM) Est GFR (CKD-EPI)NonAf 15 (>60 ml/min/1.73 sqM) Glucose 73 L (74-99) mg/dL Plasma Lactic Acid Roderick (0.7-2.0) mmol/L Calcium 10.6 H (8.4-10.2) mg/dL Magnesium 2.3 (1.6-2.3) mg/dL Total Bilirubin 0.4 (0.2-1.3) mg/dL AST 35 (14-36) U/L ALT <6 (4-34) U/L Alkaline Phosphatase 78 (38-126) U/L Lactate Dehydrogenase 563 (313-618) U/L C-Reactive Protein 2.7 H (<1.0) mg/dL Total Protein 7.6 (6.3-8.2) g/dL Albumin 3.8 (3.5-5.0) g/dL 02/22/21 Range/Units 22:13 WBC (3.8-10.6) k/uL RBC (3.80-5.40) m/uL Hgb (11.4-16.0) gm/dL Hct (34.0-46.0) % MCV (80.0-100.0) fL MCH (25.0-35.0) pg MCHC (31.0-37.0) g/dL RDW (11.5-15.5) % Plt Count (150-450) k/uL MPV Neutrophils % (Manual) % Band Neuts % (Manual) % Lymphocytes % (Manual) % Monocytes % (Manual) % Neutrophils # (Manual) (1.3-7.7) k/uL Lymphocytes # (Manual) (1.0-4.8) k/uL Monocytes # (Manual) (0-1.0) k/uL Nucleated RBCs (0-0) /100 WBC Manual Slide Review Hyperchromasia Poikilocytosis Poikilocytosis (manual Anisocytosis Anisocytosis (manual) Macrocytosis Ovalocytes PT (9.0-12.0) sec INR (<1.2) APTT (22.0-30.0) sec Sodium (137-145) mmol/L Potassium (3.5-5.1) mmol/L Chloride (98-107) mmol/L Carbon Dioxide (22-30) mmol/L Anion Gap mmol/L BUN (7-17) mg/dL Creatinine (0.52-1.04) mg/dL Est GFR (CKD-EPI)AfAm (>60 ml/min/1.73 sqM) Est GFR (CKD-EPI)NonAf (>60 ml/min/1.73 sqM) Glucose (74-99) mg/dL Plasma Lactic Acid Roderick 0.9 (0.7-2.0) mmol/L Calcium (8.4-10.2) mg/dL Magnesium (1.6-2.3) mg/dL Total Bilirubin (0.2-1.3) mg/dL AST (14-36) U/L ALT (4-34) U/L Alkaline Phosphatase (38-126) U/L Lactate Dehydrogenase (313-618) U/L C-Reactive Protein (<1.0) mg/dL Total Protein (6.3-8.2) g/dL Albumin (3.5-5.0) g/dL Disposition Clinical Impression: Weakness, EDWIN (acute kidney injury), Uremia, ARF (acute renal failure) Disposition: ADMITTED IP TO THIS HOSP Condition: Fair Is patient prescribed a controlled substance at d/c from ED?: No Referrals: Aaliyah Evans MD [Primary Care Provider] - 1-2 days
[2021-02-22 22:35] LABS: Anisocytosis Slight; HGB 10.7 gm/dL (11.4-16.0); Hyperchromasia Slight; MCH 33.2 pg (25.0-35.0); MCHC 34.5 g/dL (31.0-37.0); Macrocytosis Slight; Mean Platelet Volume 7.4; Poikilocytosis Moderate; RBC 3.23 m/uL (3.80-5.40); RDW 17.3 % (11.5-15.5); WBC 3.3 k/uL (3.8-10.6)
[2021-02-22 22:36] LABS: MCV 96.1 fL (80.0-100.0); Platelet Count 274 k/uL (150-450)
[2021-02-22 22:48] LABS: INR 1.1 (<1.2); Partial Thromboplastin Time 25.8 sec (22.0-30.0); Prothrombin Time 11.2 sec (9.0-12.0)
[2021-02-22 22:54] LABS: ALT <6 U/L (4-34); AST 35 U/L (14-36); African American GFR (CKD) 17 (>60 ml/min/1.73 sqM); Albumin 3.8 g/dL (3.5-5.0); Alkaline Phosphatase 78 U/L (38-126); Anion Gap 18 mmol/L; C Reactive Protein 2.7 mg/dL (<1.0); Calcium 10.6 mg/dL (8.4-10.2); Carbon Dioxide 13 mmol/L (22-30); Chloride 100 mmol/L (98-107); Glucose 73 mg/dL (74-99); LDH 563 U/L (313-618); Magnesium 2.3 mg/dL (1.6-2.3); Non-African American GFR(CKD) 15 (>60 ml/min/1.73 sqM); Potassium 4.1 mmol/L (3.5-5.1); Sodium 131 mmol/L (137-145); Total Bilirubin 0.4 mg/dL (0.2-1.3); Total Protein 7.6 g/dL (6.3-8.2)
[2021-02-22 23:05] LABS: Anisocytosis (M) Present; Band Neutrophils % 8 %; Lymphocytes # (M) 0.96 k/uL (1.0-4.8); Monocytes # (M) 0.23 k/uL (0-1.0); Neutrophils % (M) 56 %; Nucleated Red Blood Cells 0 /100 WBC (0-0); Ovalocytes Present; Poikilocytosis (M) Present; Total Cells Counted 100
[2021-02-22 23:15] LABS: Blood Urea Nitrogen 109 mg/dL (7-17)
[2021-02-23] MEDS ORDERED: MORPHINE SULFATE 4 MG/ML SYRINGE IV PRN (01:27)
[2021-02-23] MEDS ORDERED: NALOXONE 0.4 MG/ML 1 ML VIAL IV PRN (01:27)
[2021-02-23] MEDS ORDERED: LORazepam 2 MG/ML INJ IV PRN (01:27)
[2021-02-23] MEDS ORDERED: SODIUM CHLORIDE 0.9% 1,000 ML IV SCH (01:30)
--- NOTE | 2021-02-23 03:46 | P.HPIM ---
History of Present Illness H&P Date: 02/23/21 The patient is an 80-year-old female with a PMH of Pia davey on Ann, chronic kidney disease stage III, COPD, type II DM, hyperlipidemia, hypertension, and systolic CHF who presents to the emergency room brought in by EMS due to diffuse weakness. Of note, the patient was discharged from the hospital on 02/13 when she had presented for a positive COVID-19 test. She reports that ever since going back home she has gradually gotten weaker. She has been unable to perform her ADLs and is spending most of her day in her chair in the living room. She has not been able to use the microwave or stove to cook food as she has not been able to walk. She has been eating things off the dining table that were within arms reach. The patient's nephew called her yesterday who noticed that she did not sound well and subsequent recalled other family members who came and found the patient to be lethargic and weak. This subsequently activated EMS. The patient reports feeling better since being brought into the hospital. Aside from feeling diffusely weak, she also reports chronic bilateral foot pain and dehydration. She denied chest discomfort, shortness of breath, cough, fever, chills, nausea, vomiting, abdominal pain. The pain evaluation in the emergency room was remarkable for a BUN of 109 (baseline 40), creatinine 2.89 (baseline 2.0), and sodium 131. Review of systems: Pertinent positives and negatives as discussed in HPI, a complete review of systems was performed and all other systems are negative. Physical examination: General: non toxic, no distress, appears at stated age, normal weight Derm: no unusual rashes/lesions no unusual ecchymoses, warm, dry Head: atraumatic, normocephalic, symmetric Eyes: EOMI, no lid lag, anicteric sclera, pupils equal round reactive to light ENT: Nose and ears atraumatic, no thrush, no pharyngeal erythema Neck: No thyromegaly, no cervical lymphadenopathy, trachea midline, supple Mouth: no lip lesion, mucus membranes dry Cardiovascular: S1S2 reg, no murmur, positive posterior tibial pulse bilateral, no edema, capillary refill less than 2 seconds Lungs: CTA bilateral, no rhonchi, no rales , no accessory muscle use Abdominal: soft, nontender to palpation, no guarding, no appreciable organomegaly, normal bowel sounds Ext: no gross muscle atrophy, muscle strength 3 out of 5 in 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 grossly, no contractures, Neuro: CN II-XI grossly intact, light touch intact 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, finger to nose within normal limits, Psych: Alert, oriented to person and place only, not oriented to time Assessment/plan Failure to thrive -PT consult -Dietitian consult -IV fluids -Monitor electrolytes Acute kidney injury -Due to dehydration -Monitor BMP and continue IV fluids Hypoglycemia -Due to poor oral intake -Dextrose infusion with a dietitian consulted Chronic conditions: A. fib, chronic kidney disease, type II DM, hypertension, hyperlipidemia -Continue with home meds -Hold antihypertensives in setting of borderline BP -Lispro insulin sliding scale and blood glucose monitoring -Check A1c DVT prophylaxis -Eliquis The patient is admitted with an anticipated greater than 2 midnight stay for evaluation of failure to thrive CODE STATUS: Full Code Discussed with: Patient Anticipated discharge date: 2-[address]: [facility] Past Medical History Past Medical History: COPD, Diabetes Mellitus, Hyperlipidemia, Hypertension, Myocardial Infarction (CT), Sleep Apnea/CPAP/BIPAP Additional Past Medical History / Comment(s): tremors,NO left arm blood draw or blood pressure(vessel harvested for CABG), blockages in angelica legs, Coonstipation, gout, PAD Last Myocardial Infarction Date:: 1999 History of Any Multi-Drug Resistant Organisms: None Reported Past Surgical History: Appendectomy, Coronary Bypass/CABG, Heart Cath eterization, Hysterectomy, Tonsillectomy Additional Past Surgical History / Comment(s): angiogram. Right neck lymphnode removal Past Anesthesia/Blood Transfusion Reactions: No Reported Reaction Past Psychological History: No Psychological Hx Reported Smoking Status: Former smoker Past Alcohol Use History: None Reported Past Drug Use History: None Reported - Past Family History Mother Family Medical History: COPD, Myocardial Infarction (CT) Brother(s) Family Medical History: Cancer Son(s) Family Medical History: Cancer Sister(s) Family Medical History: Cancer Medications and Allergies Home Medications Medication Instructions Recorded Confirmed Type Ezetimibe [Zetia] 10 mg PO HS@2100 11/20/13 02/11/21 History Lovastatin [Mevacor] 10 mg PO HS@2100 11/20/13 02/11/21 History Apixaban [Eliquis] 2.5 mg PO BID@0900,209902/17/20 02/11/21 History Cyanocobalamin [Vitamin B-12] 500 mcg PO DAILY@0900 02/17/20 02/11/21 History Folic Acid 1 mg PO HS@209902/17/20 02/11/21 History Furosemide [Lasix] 40 mg PO DAILY@0900 04/25/20 02/11/21 History Docusate [Colace] 100 mg PO BID@899,209902/05/21 02/11/21 History Epoetin Obed [Procrit] 10,000 unit SQ TH@89902/05/21 02/11/21 History Ferrous Sulfate [Iron (65 MG 325 mg PO DAILY@89902/05/21 02/11/21 History Elemental)] Metoprolol Tartrate [Lopressor] 12.5 mg PO BID@0900,209902/05/21 02/11/21 History traMADol HCl [Ultram] 50 mg PO QID PRN #9 tab 02/10/21 02/11/21 Rx Carbidopa-Levodopa 25-100 mg 1 tab PO QID 02/11/21 02/11/21 History [Sinemet 25-100 mg] Gabapentin [Neurontin] 100 mg PO BID@0900,1700 02/11/21 02/11/21 History Gabapentin [Neurontin] 200 mg PO HS@209902/11/21 02/11/21 History Linagliptin [Tradjenta] 5 mg PO DAILY@0900 02/11/21 02/11/21 History Allergies Allergy/AdvReac Type Severity Reaction Status Date / Time albuterol [From DuoNeb] AdvReac Nausea Verified 02/11/21 21:24 cortisone AdvReac PAIN Verified 02/11/21 21:24 hydrocodone AdvReac Nausea Verified 02/11/21 21:24 ipratropium [From DuoNeb] AdvReac Nausea Verified 02/11/21 21:24 procaine HCl [From Novocain] AdvReac pain Verified 02/11/21 21:24 allergy medicines AdvReac "dries me Uncoded 02/11/21 21:24 out, bloody noses,generalized pain" Physical Exam Vitals: Vital Signs Temp Pulse Resp BP Pulse Ox 02/23/21 03:00 88 18 97 02/23/21 01:07 100 18 113/78 97 02/22/21 23:30 89 18 107/78 97 02/22/21 21:48 97.7 F 91 20 104/74 95 Intake and Output 02/22/21 02/22/21 02/23/21 14:59 22:59 06:59 Other: Weight 72.575 kg Results CBC & Chem 7: 02/22/21 22:13 02/22/21 22:13 Labs: Abnormal Lab Results - Last 24 Hours (Table) 02/22/21 02/22/21 Range/Units 22:13 22:13 WBC 3.3 L (3.8-10.6) k/uL RBC 3.23 L (3.80-5.40) m/uL Hgb 10.7 L (11.4-16.0) gm/dL Hct 31.0 L (34.0-46.0) % RDW 17.3 H (11.5-15.5) % Lymphocytes # (Manual) 0.96 L (1.0-4.8) k/uL Sodium 131 L (137-145) mmol/L Carbon Dioxide 13 L (22-30) mmol/L BUN 109 H* (7-17) mg/dL Creatinine 2.89 H (0.52-1.04) mg/dL Glucose 73 L (74-99) mg/dL Calcium 10.6 H (8.4-10.2) mg/dL C-Reactive Protein 2.7 H (<1.0) mg/dL
[2021-02-23 06:35] LABS: Glucose,Whole Blood 121 mg/dL (75-99)
[2021-02-23] MEDS: DEXTROSE 5%-0.9% NACL 1,000 ML IV SCH ×2 (06:36→23:33)
[2021-02-23 06:46] LABS: African American GFR (CKD) 18 (>60 ml/min/1.73 sqM); Anion Gap 19 mmol/L; Calcium 11.5 mg/dL (8.4-10.2); Carbon Dioxide 14 mmol/L (22-30); Chloride 102 mmol/L (98-107); Glucose 115 mg/dL (74-99); Non-African American GFR(CKD) 15 (>60 ml/min/1.73 sqM); Potassium 4.8 mmol/L (3.5-5.1); Sodium 135 mmol/L (137-145)
[2021-02-23 07:26] LABS: Blood Urea Nitrogen 104 mg/dL (7-17)
[2021-02-23 09:41] LABS: Glucose,Whole Blood 143 mg/dL (75-99)
[2021-02-23] MEDS: INSULIN ASPART (NovoLOG) 100 UNIT/ML VIAL SQ SCH ×4 (09:44→23:59)
[2021-02-23 11:03] LABS: HCT 30.6 % (37.2-46.3); HGB 10.1 g/dL (12.0-15.0); MCH 31.9 pg (27.0-32.0); MCV 96.5 fL (80.0-97.0); Mean Platelet Volume 10.1 fL (9.5-12.2); Platelet Count 245 X 10*3/uL (140-440); RBC 3.17 X 10*6/uL (4.10-5.20); RDW 16.3 % (11.5-14.5); WBC 2.52 X 10*3/uL (4.50-10.00)
[2021-02-23] MEDS: APIXABAN 2.5 MG TABLET PO SCH ×2 (16:09→20:32)
[2021-02-23] MEDS: CARBIDOPA-LEVODOPA 25-100 MG 1 EACH TAB PO SCH ×2 (16:10→20:32)
[2021-02-23] MEDS: CYANOCOBALAMIN 500 MCG TAB PO SCH (16:10)
[2021-02-23] MEDS: METOPROLOL TARTRATE 12.5 MG TAB PO SCH (20:31)
[2021-02-23] MEDS: DEXTROSE 5% IN WATER 1,000 ML with SODIUM BICARB (1 MEQ/ML) 150 ML IV SCH ×2 (20:31→23:32)
[2021-02-23] MEDS: SODIUM BICARBONATE TAB 650 MG TAB PO SCH (20:31)
[2021-02-23] MEDS: FOLIC ACID 1 MG TAB PO SCH (20:31)
[2021-02-23] MEDS: DOCUSATE 100 MG CAP PO SCH (20:31)
[2021-02-23] MEDS: traMADol 50 MG TAB PO PRN (20:32)
--- NOTE | 2021-02-23 21:48 | CONS ---
CONSULTATION REASON FOR CONSULT: Renal failure. HISTORY OF PRESENT ILLNESS: Patient is an 80-year-old female who is admitted to the hospital due to increased weakness. The patient was recently hospitalized on February 13 with positive Covid test. The patient was states that she was not able to get up or walk. She denied any fall. No history of fevers, chills. No history of vomiting or nausea. No diarrhea or constipation. The patient has a history of chronic kidney disease NKF stage 3, UA with baseline creatinine about 1.2-1.5 mg/dL previously, and now staying about 2.8-2.1 in January and February of 2021. On admission, patient's creatinine was 2.89 mg/dL. She states she has been voiding well. Blood pressure is not significantly low, although it was on the lower side with systolic 104 on initial admission. The patient was maintained on Lasix at home 40 mg daily. She denies use of any nonsteroidal anti-inflammatory agents or MARISABEL inhibitors or angiotensin receptor blockers. Her mccarthy virus PCR test is still positive. She does not have any significant respiratory distress. Her O2 sats 95% on room air. The patient received a fluid bolus in the ER. She also received a dose of Toradol. PAST MEDICAL HISTORY: Significant for atrial fibrillation, CKD stage 3A to 3B, type 2 diabetes, COPD, hyperlipidemia, hypertension, and systolic CHF, history of AR, obstructive sleep apnea, tremors, gout, peripheral vascular disease. PAST SURGICAL HISTORY: Appendectomy, coronary artery bypass surgery, cardiac catheterization, hysterectomy, tonsillectomy, angiogram, right neck lymph node removal. SOCIAL HISTORY: Patient is a former smoker. No history of drug abuse or alcohol abuse. MEDICATIONS: Medications prior to admission included Zetia, Mevacor, Eliquis, vitamin B12, folic acid, Lasix, Colace, Procrit, iron, Lopressor, Ultram, Sinemet, Neurontin, Tradjenta. ALLERGIES: MULTIPLE INCLUDE HYDROCODONE CAUSES NAUSEA. ALBUTEROL CAUSES NAUSEA. NOVOCAIN CAUSES PAIN. ALLERGY MEDICINES CAUSE EXCESSIVE DRYNESS. CORTISONE CAUSES PAIN. EXAMINATION: Patient is comfortable, awake. She is not in any acute distress. Blood pressure 139/91, heart rate 98 per minute. Patient is afebrile. Examination shows no significant edema bilateral lower extremities, chronic skin changes noted. Abdomen is soft, nontender. HOME DEPOT REP exam grossly intact. LABS: Show this morning, hemoglobin 10.1, white cell count 2.52, sodium 135, potassium 4.8, CO2 is 14, BUN 104, serum creatinine 2.8. Coronavirus PCR is positive. Chest x-ray this admission shows minimal left lower lobe infiltrate. ASSESSMENT: 1. Acute kidney injury ATN and associated with some degree of volume depletion. Rule out urine retention. We will check a bladder scan. Check urinalysis. Continue with IV fluids. Hold off on diuretics and repeat labs in a.m. 2. Metabolic acidosis and anion gap associated with renal failure. Change IV to IV bicarb. Add oral sodium bicarb as well and repeat labs in a.m. No history of diarrhea. 3. Chronic kidney disease, stage 3A, with previous creatinine around 1.5 as of June of 2020. More recently. Serum creatinine has been about 2.1-2.2 with peak at 2.8 in end of January. Etiology is likely nephrosclerosis. The patient had ultrasound done in April which showed no evidence of hydronephrosis. PLAN: 1. Hold diuretics. Continue IV fluids. Change to IV bicarb. Check bladder scan. Rule out urine retention. Ultrasound done in April did not reveal any hydronephrosis. 2. History of congestive heart failure, ejection fraction 45-50% with severe tricuspid regurgitation and pulmonary hypertension. 3. Thank you for this consultation. We will continue to follow the patient with you during her hospitalization. MMRUELL / MARTHAN: [id number] /
[2021-02-23 23:33] LABS: Glucose,Whole Blood 135 mg/dL (75-99)
[2021-02-23] MEDS: GABAPENTIN 100 MG CAP PO SCH (23:33)
[2021-02-23] MEDS: EZETIMIBE 10 MG TAB PO SCH (23:33)
[2021-02-24] MEDS: DEXTROSE 5%-0.9% NACL 1,000 ML IV SCH ×2 (00:03→12:42)
[2021-02-24] MEDS: CARBIDOPA-LEVODOPA 25-100 MG 1 EACH TAB PO SCH ×5 (00:03→22:04)
[2021-02-24 08:16] LABS: Glucose,Whole Blood 93 mg/dL (75-99)
[2021-02-24] MEDS: INSULIN ASPART (NovoLOG) 100 UNIT/ML VIAL SQ SCH ×4 (08:50→21:00)
[2021-02-24] MEDS: METOPROLOL TARTRATE 12.5 MG TAB PO SCH ×2 (08:58→20:43)
[2021-02-24] MEDS: FERROUS SULFATE 325 MG TAB PO SCH (08:58)
[2021-02-24] MEDS: CYANOCOBALAMIN 500 MCG TAB PO SCH (08:58)
[2021-02-24] MEDS: SODIUM BICARBONATE TAB 650 MG TAB PO SCH ×2 (08:58→20:43)
[2021-02-24] MEDS: traMADol 50 MG TAB PO PRN ×2 (08:58→20:43)
[2021-02-24] MEDS: APIXABAN 2.5 MG TABLET PO SCH ×2 (08:58→20:43)
[2021-02-24] MEDS: DOCUSATE 100 MG CAP PO SCH ×2 (08:59→20:43)
[2021-02-24 09:10] LABS: Basophils # (A) 0.01 X 10*3/uL (0.00-0.10); Basophils % (A) 0.3 %; Eosinophils # (A) 0.03 X 10*3/uL (0.04-0.35); Eosinophils % (A) 0.8 %; HCT 27.7 % (37.2-46.3); HGB 9.6 g/dL (12.0-15.0); Lymphocytes # (A) 0.62 X 10*3/uL (0.90-5.00); Lymphocytes % (A) 17.4 %; MCH 32.9 pg (27.0-32.0); MCHC 34.7 g/dL (32.0-37.0); MCV 94.9 fL (80.0-97.0); Mean Platelet Volume 9.8 fL (9.5-12.2); Monocytes # (A) 0.36 X 10*3/uL (0.20-1.00); Monocytes % (A) 10.1 %; Neutrophils # (A) 2.49 X 10*3/uL (1.80-7.70); Platelet Count 228 X 10*3/uL (140-440); RBC 2.92 X 10*6/uL (4.10-5.20); RDW 15.9 % (11.5-14.5); WBC 3.56 X 10*3/uL (4.50-10.00)
[2021-02-24 11:44] LABS: Glucose,Whole Blood 97 mg/dL (75-99)
[2021-02-24 13:20] LABS: African American GFR (CKD) 24 (>60 ml/min/1.73 sqM); Anion Gap 10 mmol/L; Blood Urea Nitrogen 85 mg/dL (7-17); Calcium 10.7 mg/dL (8.4-10.2); Carbon Dioxide 22 mmol/L (22-30); Chloride 102 mmol/L (98-107); Glucose 104 mg/dL (74-99); Non-African American GFR(CKD) 21 (>60 ml/min/1.73 sqM); Potassium 3.9 mmol/L (3.5-5.1); Sodium 134 mmol/L (137-145)
--- NOTE | 2021-02-24 16:06 | PN ---
PROGRESS NOTE Patient is seen for followup for acute kidney injury. Patient's renal function has improved. Her creatinine is down from 2.8 about 2.1 now. She is maintained on IV fluids. Patient was admitted to the hospital on 02/22 with complaints of increased weakness. She was also found to have a positive COVID test. She denies any significant respiratory symptoms. However, patient was placed on 2 L nasal cannula last night, as her O2 saturations had dropped into the 80s. She was also quite acidotic and was switched to IV bicarb yesterday. Patient has been voiding well. On examination today, she is comfortable. Blood pressure 124/81, heart rate 95 per minute. She is afebrile. Examination of lower extremities shows no evidence of edema. NEEDLE STRAIGHTENER exam grossly intact. Lungs and heart are not examined. Labs show sodium 134, potassium 3.9, chloride 102, BUN 85, serum creatinine 2.14, hemoglobin 9.6 g/dL. ASSESSMENT: 1. Acute kidney injury, prerenal, currently improved. Continue with the IV bicarb. 2. Coronavirus positive PCR with chest x-ray showing mild airspace infiltrate, left lower lobe, not requiring much oxygen. 3. Metabolic acidosis, anion gap, secondary to renal failure, maintained on oral sodium bicarb as well as IV bicarb. 4. Chronic kidney disease, stage 3A. Previous creatinine 1.5 as of June of 2020. More recently creatinine staying 2.1 to 2.2. Etiology is nephrosclerosis. Ultrasound done in April showed no evidence of hydronephrosis. 5. Cardiomyopathy with ejection fraction 45% to 50% with severe tricuspid regurgitation and pulmonary hypertension. 6. Hypercalcemia with appropriately low PTH in January2021, continue IVF. Check immunofixation and MARISABEL level PLAN: Continue with IV fluids. Check a bladder scan. Rule out retention. Repeat labs in a.m. MMODL / IJN: [id number] / [facility]
[2021-02-24 16:14] LABS: Magnesium 1.9 mg/dL (1.5-2.4); Phosphorus 3.7 mg/dL (2.4-5.1)
[2021-02-24 17:26] LABS: Glucose,Whole Blood 130 mg/dL (75-99)
[2021-02-24 17:27] LABS: ALT <5 U/L (8-44); AST 36 U/L (13-35); African American GFR (CKD) 23.2 (60.0-200.0); Albumin 3.3 g/dL (3.8-4.9); Albumin/Globulin Ratio 0.99 (1.60-3.17); Alkaline Phosphatase 68 U/L (41-126); BUN/Creat Ratio 38.16 Ratio (12.00-20.00); Blood Urea Nitrogen 85.1 mg/dL (9.0-27.0); Calcium 10.2 mg/dL (8.7-10.3); Carbon Dioxide 14.8 mmol/L (21.6-31.8); Chloride 101 mmol/L (96-109); Globulin 3.4 g/dL (1.6-3.3); Glucose 122 mg/dL (70-110); Potassium 3.8 mmol/L (3.5-5.5); Sodium 133 mmol/L (135-145); Total Protein 6.7 g/dL (6.2-8.2)
--- NOTE | 2021-02-24 17:48 | P.PN ---
Subjective Patient was seen and evaluated by me this morning. She was still in the emergency room. There is no acute overnight by nursing staff. Patient herself does not have any specific complaints Objective - Vital Signs Vital signs: Vital Signs Temp 97.5 F L 02/24/21 15:25 Pulse 94 02/24/21 15:25 Resp 18 02/24/21 15:25 BP 119/75 02/24/21 15:25 Pulse Ox 91 L 02/24/21 15:25 Intake & Output 02/23/21 02/24/21 02/24/21 18:59 06:59 18:59 Intake Total 1200 480 Balance 1200 480 Weight 72.575 kg Intake: Intake, IV Titration 1200 480 Amount Dextrose 5% in Water 1, 480 000 ml @ 80 mls/hr IV . [id number] TODD with Sodium Bicarb (1 Meq/ml) 150 ml Rx#:[id number] Dextrose 5%-0.9% NaCl 1, 1200 000 ml @ 100 mls/hr IV . Q10H TODD Rx#:[id number] Other: Voiding Method Bedside Commode Bedside Commode # Voids 1 # Bowel Movements 1 - Exam General: The patient is awake and alert, in no distress Eye: there is normal conjunctiva bilaterally. Neck: The neck is supple, there is no JVD. Cardiovascular: Normal S1-S2, no S3-S4, no murmurs. Respiratory: Lungs clear to auscultation bilaterally Gastrointestinal: Abdomen is soft, nontender Musculoskeletal: There is no pedal edema. Neurological:. Speech is normal. Skin: Skin is warm and dry - Labs CBC & Chem 7: 02/24/21 04:50 02/24/21 12:29 Labs: Abnormal Lab Results - Last 24 Hours (Table) 02/23/21 02/23/21 02/24/21 Range/Units 05:27 23:31 04:50 WBC 3.56 L (4.50-10.00) X 10*3/uL RBC 2.92 L (4.10-5.20) X 10*6/uL Hgb 9.6 L (12.0-15.0) g/dL Hct 27.7 L (37.2-46.3) % MCH 32.9 H (27.0-32.0) pg RDW 15.9 H (11.5-14.5) % Immature Gran # 0.05 H (0.00-0.04) X 10*3/uL Lymphocytes # 0.62 L (0.90-5.00) X 10*3/uL Eosinophils # 0.03 L (0.04-0.35) X 10*3/uL Sodium (135-145) mmol/L Carbon Dioxide (21.6-31.8) mmol/L Anion Gap (4.00-12.00) mmol/L BUN (9.0-27.0) mg/dL Creatinine (0.6-1.5) mg/dL Est GFR (CKD-EPI)AfAm (60.0-200.0) Est GFR (CKD-EPI)NonAf (60.0-200.0) BUN/Creatinine Ratio (12.00-20.00) Ratio Glucose (70-110) mg/dL POC Glucose (mg/dL) 135 H (75-99) mg/dL Hemoglobin A1c 6.4 H (4.0-6.0) % Calcium (8.4-10.2) mg/dL Total Bilirubin (0.30-1.20) mg/dL AST (13-35) U/L ALT (8-44) U/L Albumin (3.8-4.9) g/dL Globulin (1.6-3.3) g/dL Albumin/Globulin Ratio (1.60-3.17) g/dL 02/24/21 02/24/21 02/24/21 Range/Units 04:50 12:29 17:24 WBC (4.50-10.00) X 10*3/uL RBC (4.10-5.20) X 10*6/uL Hgb (12.0-15.0) g/dL Hct (37.2-46.3) % MCH (27.0-32.0) pg RDW (11.5-14.5) % Immature Gran # (0.00-0.04) X 10*3/uL Lymphocytes # (0.90-5.00) X 10*3/uL Eosinophils # (0.04-0.35) X 10*3/uL Sodium 133 L 134 L (135-145) mmol/L Carbon Dioxide 14.8 L (21.6-31.8) mmol/L Anion Gap 17.60 H (4.00-12.00) mmol/L BUN 85.1 H 85 H (9.0-27.0) mg/dL Creatinine 2.2 H 2.14 H (0.6-1.5) mg/dL Est GFR (CKD-EPI)AfAm 23.2 L (60.0-200.0) Est GFR (CKD-EPI)NonAf 20.0 L (60.0-200.0) BUN/Creatinine Ratio 38.16 H (12.00-20.00) Ratio Glucose 122 H 104 H (70-110) mg/dL POC Glucose (mg/dL) 130 H (75-99) mg/dL Hemoglobin A1c (4.0-6.0) % Calcium 10.7 H (8.4-10.2) mg/dL Total Bilirubin 0.20 L (0.30-1.20) mg/dL AST 36 H (13-35) U/L ALT <5 L (8-44) U/L Albumin 3.3 L (3.8-4.9) g/dL Globulin 3.4 H (1.6-3.3) g/dL Albumin/Globulin Ratio 0.99 L (1.60-3.17) g/dL Microbiology - Last 24 Hours (Table) 02/22/21 22:13 Blood Culture - Preliminary Blood No Growth after 24 hours Assessment and Plan Assessment: This is a 80-year-old female with complex past medical history noted below the presented to the emergency room with progressive weakness and unable to take care of herself at home. She was evaluated in the ER and admitted to the hospital for further management of her medical problems noted below. 1. Acute kidney injury on stage IIIB chronic kidney disease 2. Acute metabolic acidosis secondary to above 3. COVID-19 positive screen persistent with original positive on 02/12. Patient is a symptomatic with no evidence of hypoxia 4. Physical debility, PT/OT consult. Patient would benefit from placement. 5. Chronic medical problems: Underlying Parkinson's disease, underlying systolic heart failure with known EF of 45-50%, chronic atrial fibrillation on anticoagulation with Eliquis, history of coronary artery disease with history of CABG, hypertension, hyperlipidemia, peripheral vascular occlusive disease, Today, I reviewed her medication list and lab work results. Continue bicarbonate drip as recommended by nephrology. Repeat lab work in the morning. Discharge planning discussed with addiction social worker.
[2021-02-24] MEDS: FOLIC ACID 1 MG TAB PO SCH (20:43)
[2021-02-24] MEDS: GABAPENTIN 100 MG CAP PO SCH (20:43)
[2021-02-24] MEDS: EZETIMIBE 10 MG TAB PO SCH (20:45)
[2021-02-24 21:44] LABS: Glucose,Whole Blood 122 mg/dL (75-99)
[2021-02-24] MEDS: DEXTROSE 5% IN WATER 1,000 ML with SODIUM BICARB (1 MEQ/ML) 150 ML IV SCH (23:00)
[2021-02-25 07:00] LABS: Glucose,Whole Blood 124 mg/dL (75-99)
[2021-02-25] MEDS: INSULIN ASPART (NovoLOG) 100 UNIT/ML VIAL SQ SCH ×5 (07:02→20:39)
[2021-02-25] MEDS: APIXABAN 2.5 MG TABLET PO SCH ×2 (08:25→21:21)
[2021-02-25] MEDS: FERROUS SULFATE 325 MG TAB PO SCH (08:25)
[2021-02-25] MEDS: CARBIDOPA-LEVODOPA 25-100 MG 1 EACH TAB PO SCH ×4 (08:25→21:23)
[2021-02-25] MEDS: CYANOCOBALAMIN 500 MCG TAB PO SCH (08:25)
[2021-02-25] MEDS: SODIUM BICARBONATE TAB 650 MG TAB PO SCH ×2 (08:26→21:21)
[2021-02-25] MEDS: METOPROLOL TARTRATE 12.5 MG TAB PO SCH ×2 (08:26→21:21)
[2021-02-25] MEDS: DOCUSATE 100 MG CAP PO SCH ×2 (09:15→21:21)
[2021-02-25 09:47] LABS: African American GFR (CKD) 30.1 (60.0-200.0); Anion Gap 12.9 mmol/L (4.00-12.00); BUN/Creat Ratio 33.78 Ratio (12.00-20.00); Blood Urea Nitrogen 60.8 mg/dL (9.0-27.0); Calcium 9.4 mg/dL (8.7-10.3); Carbon Dioxide 22.1 mmol/L (21.6-31.8); Non-African American GFR(CKD) 25.9 (60.0-200.0); Potassium 3.5 mmol/L (3.5-5.5)
[2021-02-25 09:52] LABS: Basophils # (A) 0.01 X 10*3/uL (0.00-0.10); Basophils % (A) 0.4 %; Eosinophils # (A) 0.01 X 10*3/uL (0.04-0.35); Eosinophils % (A) 0.4 %; HCT 28.5 % (37.2-46.3); HGB 9.3 g/dL (12.0-15.0); Lymphocytes # (A) 0.49 X 10*3/uL (0.90-5.00); Lymphocytes % (A) 17.5 %; MCHC 32.6 g/dL (32.0-37.0); MCV 97.9 fL (80.0-97.0); Mean Platelet Volume 10.4 fL (9.5-12.2); Monocytes # (A) 0.48 X 10*3/uL (0.20-1.00); Monocytes % (A) 17.1 %; Neutrophils # (A) 1.79 X 10*3/uL (1.80-7.70); Neutrophils % (A) 63.9 %; Platelet Count 199 X 10*3/uL (140-440); RBC 2.91 X 10*6/uL (4.10-5.20); RDW 15.9 % (11.5-14.5)
[2021-02-25 11:52] LABS: Glucose,Whole Blood 137 mg/dL (75-99)
--- NOTE | 2021-02-25 13:52 | P.PN ---
Subjective Progress Note Date: 02/25/21 Principal diagnosis: Patient is weak Constitutional: No acute distress, conversant, pleasant Eyes: Anicteric sclerae, moist conjunctiva, no lid-lag PERRLA ENMT: NC/AT Oropharynx clear, no erythema, exudates Neck: Supple, FROM, no masses, or JVD No carotid bruits No thyromegaly Lungs: Clear to auscultation Clear to percussion Normal respiratory effort, no accessory muscle use Cardiovascular: Heart regular in rate and rhythm, No murmurs, gallops, or rubs No peripheral edema Abdominal: Soft Nontender, no guarding, rebound or rigidity Abdomen moving with respiration Normoactive bowel sounds No hepatomegaly, No splenomegaly No palpable mass No abdominal wall hernia noted Skin: Normal temperature, tone, texture, turgor No induration No subcutaneous nodules No rash, lesions No ulcers Extremities: No digital cyanosis No clubbing Pedal pulses intact and symmetrical Radial pulses intact and symmetrical Normal gait and station No calf tenderness Psychiatric:Alert and oriented to person, place and time Appropriate affect Intact judgement Neuro: Muscles Strength 5/5 in 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 Sensation to light touch grossly present throughout Cranial nerves II-XII grossly intact No focal sensory deficits This is a 80-year-old female with complex past medical history noted below the presented to the emergency room with progressive weakness and unable to take care of herself at home. She was evaluated in the ER and admitted to the hospital for further management of her medical problems noted below. 1. Acute kidney injury on stage IIIB chronic kidney disease 2. Acute metabolic acidosis secondary to above 3. COVID-19 positive screen persistent with original positive on 02/12. Patient is a symptomatic with no evidence of hypoxia 4. Physical debility, PT/OT consult. Patient would benefit from placement. 5. Chronic medical problems: Underlying Parkinson's disease, underlying systolic heart failure with known EF of 45-50%, chronic atrial fibrillation on anticoagulation with Eliquis, history of coronary artery disease with history of CABG, hypertension, hyperlipidemia, peripheral vascular occlusive disease, Today, I reviewed her medication list and lab work results. Continue bicarbonate drip as recommended by nephrology. Repeat lab work in the morning. Discharge planning discussed with social media sr strategy manager. Patient continues to be weak overall stable needs rehab placement on discharge but currently continue current management Objective - Vital Signs Vital signs: Vital Signs Temp 98.2 F 02/25/21 10:00 Pulse 93 02/25/21 10:00 Resp 18 02/25/21 10:00 BP 100/64 02/25/21 10:00 Pulse Ox 100 02/25/21 10:00 Intake & Output 02/24/21 02/25/21 02/25/21 18:59 06:59 18:59 Intake Total 480 240 640 Balance 480 240 640 Intake: Intake, IV Titration 480 640 Amount Dextrose 5% in Water 1, 480 640 000 ml @ 80 mls/hr IV . [id number] TODD with Sodium Bicarb (1 Meq/ml) 150 ml Rx#:[id number] Oral 240 Other: Voiding Method Bedside Commode Toilet # Voids 1 2 2 # Bowel Movements 1 1 1 - Labs CBC & Chem 7: 02/25/21 06:00 02/25/21 06:00 Labs: Abnormal Lab Results - Last 24 Hours (Table) 02/24/21 02/24/21 02/24/21 Range/Units 04:50 17:24 21:38 WBC (4.50-10.00) X 10*3/uL RBC (4.10-5.20) X 10*6/uL Hgb (12.0-15.0) g/dL Hct (37.2-46.3) % MCV (80.0-97.0) fL RDW (11.5-14.5) % Neutrophils # (1.80-7.70) X 10*3/uL Lymphocytes # (0.90-5.00) X 10*3/uL Eosinophils # (0.04-0.35) X 10*3/uL D-Dimer (<0.60) mg/L FEU Sodium 133 L (135-145) mmol/L Carbon Dioxide 14.8 L (21.6-31.8) mmol/L Anion Gap 17.60 H (4.00-12.00) mmol/L BUN 85.1 H (9.0-27.0) mg/dL Creatinine 2.2 H (0.6-1.5) mg/dL Est GFR (CKD-EPI)AfAm 23.2 L (60.0-200.0) Est GFR (CKD-EPI)NonAf 20.0 L (60.0-200.0) BUN/Creatinine Ratio 38.16 H (12.00-20.00) Ratio Glucose 122 H (70-110) mg/dL POC Glucose (mg/dL) 130 H 122 H (75-99) mg/dL Total Bilirubin 0.20 L (0.30-1.20) mg/dL AST 36 H (13-35) U/L ALT <5 L (8-44) U/L Albumin 3.3 L (3.8-4.9) g/dL Globulin 3.4 H (1.6-3.3) g/dL Albumin/Globulin Ratio 0.99 L (1.60-3.17) g/dL 02/25/21 02/25/21 02/25/21 Range/Units 06:00 06:00 06:00 WBC 2.80 L (4.50-10.00) X 10*3/uL RBC 2.91 L (4.10-5.20) X 10*6/uL Hgb 9.3 L (12.0-15.0) g/dL Hct 28.5 L (37.2-46.3) % MCV 97.9 H (80.0-97.0) fL RDW 15.9 H (11.5-14.5) % Neutrophils # 1.79 L (1.80-7.70) X 10*3/uL Lymphocytes # 0.49 L (0.90-5.00) X 10*3/uL Eosinophils # 0.01 L (0.04-0.35) X 10*3/uL D-Dimer 1.00 H (<0.60) mg/L FEU Sodium 133 L (135-145) mmol/L Carbon Dioxide (21.6-31.8) mmol/L Anion Gap 12.90 H (4.00-12.00) mmol/L BUN 60.8 H (9.0-27.0) mg/dL Creatinine 1.8 H (0.6-1.5) mg/dL Est GFR (CKD-EPI)AfAm 30.1 L (60.0-200.0) Est GFR (CKD-EPI)NonAf 25.9 L (60.0-200.0) BUN/Creatinine Ratio 33.78 H (12.00-20.00) Ratio Glucose (70-110) mg/dL POC Glucose (mg/dL) (75-99) mg/dL Total Bilirubin (0.30-1.20) mg/dL AST (13-35) U/L ALT (8-44) U/L Albumin (3.8-4.9) g/dL Globulin (1.6-3.3) g/dL Albumin/Globulin Ratio (1.60-3.17) g/dL 02/25/21 02/25/21 Range/Units 06:53 11:39 WBC (4.50-10.00) X 10*3/uL RBC (4.10-5.20) X 10*6/uL Hgb (12.0-15.0) g/dL Hct (37.2-46.3) % MCV (80.0-97.0) fL RDW (11.5-14.5) % Neutrophils # (1.80-7.70) X 10*3/uL Lymphocytes # (0.90-5.00) X 10*3/uL Eosinophils # (0.04-0.35) X 10*3/uL D-Dimer (<0.60) mg/L FEU Sodium (135-145) mmol/L Carbon Dioxide (21.6-31.8) mmol/L Anion Gap (4.00-12.00) mmol/L BUN (9.0-27.0) mg/dL Creatinine (0.6-1.5) mg/dL Est GFR (CKD-EPI)AfAm (60.0-200.0) Est GFR (CKD-EPI)NonAf (60.0-200.0) BUN/Creatinine Ratio (12.00-20.00) Ratio Glucose (70-110) mg/dL POC Glucose (mg/dL) 124 H 137 H (75-99) mg/dL Total Bilirubin (0.30-1.20) mg/dL AST (13-35) U/L ALT (8-44) U/L Albumin (3.8-4.9) g/dL Globulin (1.6-3.3) g/dL Albumin/Globulin Ratio (1.60-3.17) g/dL Microbiology - Last 24 Hours (Table) 02/22/21 22:13 Blood Culture - Preliminary Blood No Growth after 48 hours
[2021-02-25 13:58] VITALS: BMI 29.2
[2021-02-25] MEDS: DEXTROSE 5% IN WATER 1,000 ML with SODIUM BICARB (1 MEQ/ML) 150 ML IV SCH (15:58)
[2021-02-25 16:24] LABS: Glucose,Whole Blood 120 mg/dL (75-99)
--- NOTE | 2021-02-25 18:10 | PN ---
PROGRESS NOTE Patient is seen for followup for acute kidney injury. Patient is currently maintained on IV fluids. Renal function continues to improve, with creatinine down to 1.8. She was acidotic and is now maintained on IV bicarb. On examination today, patient denied any significant complaints. Blood pressure was 100/64, heart rate 93 per minute. She is afebrile. Examination of the lower extremities shows no evidence of edema. Abdomen is soft, nontender. Lungs and heart are not examined. Labs show hemoglobin 9.3, sodium 133, potassium 3.5, BUN 60, serum creatinine 1.8. ASSESSMENT: 1. Acute kidney injury, prerenal, currently improving with IV hydration. Will continue with IV fluids. Change to Ringer lactate and start oral sodium bicarb. 2. Chronic kidney disease, stage 3A. Previous creatinine 1.5 as of June of 2020, more recently staying at 2.1 to 2.2 mg/dL. Etiology nephrosclerosis. No evidence of hydronephrosis on ultrasound done in April. Previous UA done in May showed evidence of UTI. We do not have a UA from this admission. This will be ordered. 3. Cardiomyopathy, ejection fraction 40% to 45%, with severe tricuspid regurgitation, pulmonary hypertension. 4. Hypercalcemia with appropriately low PTH levels in January of 2021, maintained on saline, currently improved. Calcium is down to 9.4. Serum and urine immunofixation and MARISABEL levels have been ordered. Patient was not on any calcium supplements prior to admission or thiazide diuretics. PLAN: Continue with sodium chloride tabs. Will switch to Ringer lactate tomorrow and I will decrease the rate of the fluids to about 50 mL/hour. MMODL / IJN: [id number] /
[2021-02-25 20:28] LABS: Glucose,Whole Blood 165 mg/dL (75-99)
[2021-02-25] MEDS: FOLIC ACID 1 MG TAB PO SCH (21:21)
[2021-02-25] MEDS: EZETIMIBE 10 MG TAB PO SCH (21:21)
[2021-02-25] MEDS: GABAPENTIN 100 MG CAP PO SCH (21:21)
[2021-02-25] MEDS: traMADol 50 MG TAB PO PRN (22:39)
[2021-02-26] MEDS: traMADol 50 MG TAB PO PRN ×2 (05:50→21:40)
[2021-02-26] MEDS: DEXTROSE 5% IN WATER 1,000 ML with SODIUM BICARB (1 MEQ/ML) 150 ML IV SCH (06:59)
[2021-02-26 07:14] LABS: Glucose,Whole Blood 153 mg/dL (75-99)
[2021-02-26] MEDS: APIXABAN 2.5 MG TABLET PO SCH ×2 (07:35→21:40)
[2021-02-26] MEDS: ONDANSETRON 4 MG/2 ML VIAL IVP PRN ×3 (07:35→21:39)
[2021-02-26] MEDS: METOPROLOL TARTRATE 12.5 MG TAB PO SCH ×2 (07:35→21:40)
[2021-02-26] MEDS: CYANOCOBALAMIN 500 MCG TAB PO SCH (07:35)
[2021-02-26] MEDS: CARBIDOPA-LEVODOPA 25-100 MG 1 EACH TAB PO SCH ×4 (07:36→21:41)
[2021-02-26] MEDS: SODIUM BICARBONATE TAB 650 MG TAB PO SCH ×2 (07:36→21:40)
[2021-02-26] MEDS: INSULIN ASPART (NovoLOG) 100 UNIT/ML VIAL SQ SCH ×4 (07:36→21:42)
[2021-02-26] MEDS: FERROUS SULFATE 325 MG TAB PO SCH (07:36)
[2021-02-26] MEDS: DOCUSATE 100 MG CAP PO SCH ×2 (07:36→21:40)
--- NOTE | 2021-02-26 10:37 | P.PN ---
Subjective Progress Note Date: 02/26/21 Principal diagnosis: Patient appears to be slightly more lethargic today Patient is weak Constitutional: No acute distress, conversant, pleasant Eyes: Anicteric sclerae, moist conjunctiva, no lid-lag PERRLA ENMT: NC/AT Oropharynx clear, no erythema, exudates Neck: Supple, FROM, no masses, or JVD No carotid bruits No thyromegaly Lungs: Clear to auscultation Clear to percussion Normal respiratory effort, no accessory muscle use Cardiovascular: Heart regular in rate and rhythm, No murmurs, gallops, or rubs No peripheral edema Abdominal: Soft Nontender, no guarding, rebound or rigidity Abdomen moving with respiration Normoactive bowel sounds No hepatomegaly, No splenomegaly No palpable mass No abdominal wall hernia noted Skin: Normal temperature, tone, texture, turgor No induration No subcutaneous nodules No rash, lesions No ulcers Extremities: No digital cyanosis No clubbing Pedal pulses intact and symmetrical Radial pulses intact and symmetrical Normal gait and station No calf tenderness Psychiatric:Alert and oriented to person, place and time Appropriate affect Intact judgement Neuro: Muscles Strength 5/5 in 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 Sensation to light touch grossly present throughout Cranial nerves II-XII grossly intact No focal sensory deficits This is a 80-year-old female with complex past medical history noted below the presented to the emergency room with progressive weakness and unable to take care of herself at home. She was evaluated in the ER and admitted to the hospital for further management of her medical problems noted below. 1. Acute kidney injury on stage IIIB chronic kidney disease 2. Acute metabolic acidosis secondary to above 3. COVID-19 positive screen persistent with original positive on 02/12. Patient is a symptomatic with no evidence of hypoxia 4. Physical debility, PT/OT consult. Patient would benefit from placement. 5. Chronic medical problems: Underlying Parkinson's disease, underlying systolic heart failure with known EF of 45-50%, chronic atrial fibrillation on anticoagulation with Eliquis, history of coronary artery disease with history of CABG, hypertension, hyperlipidemia, peripheral vascular occlusive disease, Today, I reviewed her medication list and lab work results. Continue bicarbonate drip as recommended by nephrology. Repeat lab work in the morning. Discharge planning discussed with social media analyst. Patient continues to be weak overall stable needs rehab placement on discharge but currently continue current management Patient continues to have decreased by mouth intake will continue to monitor may consider feeding tube Objective - Vital Signs Vital signs: Vital Signs Temp 97.7 F 02/26/21 10:00 Pulse 110 H 02/26/21 10:00 Resp 18 02/26/21 10:00 BP 88/56 02/26/21 10:00 Pulse Ox 93 L 02/26/21 10:00 Intake & Output 02/25/21 02/26/21 02/26/21 18:59 06:59 18:59 Intake Total 640 Balance 640 Weight 72.575 kg Intake: Intake, IV Titration 640 Amount Dextrose 5% in Water 1, 640 000 ml @ 50 mls/hr IV . Q23H TODD with Sodium Bicarb (1 Meq/ml) 150 ml Rx#:[id number] Other: Voiding Method Bedside Commode # Voids 2 1 3 # Bowel Movements 1 1 3 - Labs CBC & Chem 7: 02/25/21 06:00 02/25/21 06:00 Labs: Abnormal Lab Results - Last 24 Hours (Table) 02/25/21 02/25/21 02/25/21 Range/Units 11:39 16:18 20:25 POC Glucose (mg/dL) 137 H 120 H 165 H (75-99) mg/dL 02/26/21 Range/Units 07:13 POC Glucose (mg/dL) 153 H (75-99) mg/dL Microbiology - Last 24 Hours (Table) 02/22/21 22:13 Blood Culture - Preliminary Blood No Growth after 72 hours
[2021-02-26 11:55] LABS: Glucose,Whole Blood 151 mg/dL (75-99)
[2021-02-26 17:06] LABS: Glucose,Whole Blood 144 mg/dL (75-99)
--- NOTE | 2021-02-26 17:12 | PN ---
PROGRESS NOTE Patient is seen for followup for acute kidney injury on top of chronic kidney disease. Patient's renal function has improved, with creatinine down to 1.8 from 2.89 on initial admission. This is close to her baseline. Patient is currently maintained on IV bicarb. She has tested positive for coronavirus PCR. On examination today, blood pressure was low 88/56, heart rate 110 per minute. She is afebrile. Examination of lower extremities shows no significant edema. ON SITE MANAGER exam grossly intact. Lungs and heart are not examined. Labs show sodium of 133, potassium 3.5, serum creatinine 1.8 as of 02/25/2021. ASSESSMENT: 1. Acute kidney injury, prerenal, improved with IV hydration. 2. Metabolic acidosis, maintained on oral and IV bicarb. Will discontinue the IV bicarb tomorrow. Check labs in a.m. 3. Cardiomyopathy, ejection fraction 40% to 45%, with severe tricuspid regurgitation, pulmonary hypertension. 4. Hypercalcemia with appropriately low PTH level of 6.2 on 02/05/2021. Vitamin D levels were not elevated. Serum and urine immunofixation was ordered to rule out underlying paraproteinemia. 5. Coronavirus PCR positive with minimal left lower lobe infiltrate noted on chest x- ray, maintained on 3 L nasal cannula with O2 saturations 93% to 97%. PLAN: Continue with the bicarb drip. Check labs in a.m. Avoid hypotension. Add parameters for Lopressor. MMODL / IJN: [id number] /
[2021-02-26 20:37] LABS: Glucose,Whole Blood 152 mg/dL (75-99)
[2021-02-26] MEDS: GABAPENTIN 100 MG CAP PO SCH (21:39)
[2021-02-26] MEDS: FOLIC ACID 1 MG TAB PO SCH (21:40)
[2021-02-26] MEDS: EZETIMIBE 10 MG TAB PO SCH (21:40)
[2021-02-27] MEDS: DEXTROSE 5% IN WATER 1,000 ML with SODIUM BICARB (1 MEQ/ML) 150 ML IV SCH (04:32)
[2021-02-27 06:50] LABS: Glucose,Whole Blood 151 mg/dL (75-99)
[2021-02-27] MEDS: INSULIN ASPART (NovoLOG) 100 UNIT/ML VIAL SQ SCH ×4 (07:10→21:30)
[2021-02-27] MEDS: METOPROLOL TARTRATE 12.5 MG TAB PO SCH ×2 (07:10→21:29)
[2021-02-27] MEDS: DOCUSATE 100 MG CAP PO SCH ×2 (07:11→21:29)
[2021-02-27] MEDS: APIXABAN 2.5 MG TABLET PO SCH ×2 (07:11→21:29)
[2021-02-27] MEDS: CARBIDOPA-LEVODOPA 25-100 MG 1 EACH TAB PO SCH ×4 (07:11→21:29)
[2021-02-27] MEDS: CYANOCOBALAMIN 500 MCG TAB PO SCH (07:11)
[2021-02-27] MEDS: FERROUS SULFATE 325 MG TAB PO SCH (07:11)
[2021-02-27] MEDS: SODIUM BICARBONATE TAB 650 MG TAB PO SCH ×2 (07:11→21:29)
[2021-02-27] MEDS: ONDANSETRON 4 MG/2 ML VIAL IVP PRN ×2 (07:18→21:28)
[2021-02-27 09:14] LABS: Basophils # (A) 0.01 X 10*3/uL (0.00-0.10); Basophils % (A) 0.4 %; Eosinophils # (A) 0.02 X 10*3/uL (0.04-0.35); Eosinophils % (A) 0.9 %; HCT 26.2 % (37.2-46.3); HGB 8.6 g/dL (12.0-15.0); Lymphocytes % (A) 22.2 %; MCH 32.3 pg (27.0-32.0); MCHC 32.8 g/dL (32.0-37.0); MCV 98.5 fL (80.0-97.0); Monocytes # (A) 0.59 X 10*3/uL (0.20-1.00); Monocytes % (A) 26.2 %; Neutrophils # (A) 1.09 X 10*3/uL (1.80-7.70); Neutrophils % (A) 48.5 %; Platelet Count 151 X 10*3/uL (140-440); RBC 2.66 X 10*6/uL (4.10-5.20); RDW 16.2 % (11.5-14.5); WBC 2.25 X 10*3/uL (4.50-10.00)
[2021-02-27 11:31] LABS: Glucose,Whole Blood 150 mg/dL (75-99)
--- NOTE | 2021-02-27 12:13 | PN ---
PROGRESS NOTE Patient is seen for followup for acute kidney injury. She is currently maintained on IV fluids. Renal function has been improving. Serum creatinine was down to 1.8 on February 25. Labs were ordered yesterday, but it looks like they were not drawn. Currently patient is maintained on bicarb drip for metabolic acidosis. This morning, she is complaining of feeling sick and has had repeated emesis since this morning. No complaints of abdominal pain. PHYSICAL EXAMINATION: On examination today, blood pressure is 138/86, heart rate 84 per minute. Patient is afebrile. Examination of the lower extremities shows no evidence of edema. Abdomen is soft, nontender. Lungs and heart are not examined. CUPOLA LINER exam grossly intact. LABS: Not available from today. Last creatinine 1.8 on 02/25/2021. Labs are ordered stat for now as we have to decide on the bicarb drip. ASSESSMENT: 1. Acute kidney injury, prerenal, maintained on IV fluids. Check labs stat today. 2. Metabolic acidosis associated with renal failure, maintained on IV bicarb. We can likely discontinue the bicarb drip based on her labs today. 3. Coronavirus PCR positive with minimal left lower lobe infiltrate noted on chest x- ray, maintained on 3 L nasal cannula with O2 sats 93-97 percent. 4. Cardiomyopathy, ejection fraction 40-45% with severe tricuspid regurgitation and pulmonary hypertension. 5. Hypercalcemia with appropriately low PTH level of 6.2 on 02/05/2021. Vitamin D levels were not elevated at that time. A serum and urine immunofixation have been ordered to rule out underlying paraproteinemia. PLAN: Check labs stat to decide on the bicarb drip. MMODL / IJN: [id number] /
[2021-02-27 12:16] LABS: African American GFR (CKD) 40 (>60 ml/min/1.73 sqM); Blood Urea Nitrogen 38 mg/dL (7-17); Calcium 8.3 mg/dL (8.4-10.2); Chloride 84 mmol/L (98-107); Glucose 151 mg/dL (74-99); Non-African American GFR(CKD) 34 (>60 ml/min/1.73 sqM); Potassium 4.2 mmol/L (3.5-5.1); Sodium 129 mmol/L (137-145)
[2021-02-27 12:23] LABS: Anion Gap 4 mmol/L
[2021-02-27 12:30] LABS: Carbon Dioxide 41 mmol/L (22-30)
[2021-02-27 13:00] LABS: ALT <5 U/L (8-44); AST 28 U/L (13-35); African American GFR (CKD) 38.4 (60.0-200.0); Albumin 2.9 g/dL (3.8-4.9); Albumin/Globulin Ratio 1.02 (1.60-3.17); Alkaline Phosphatase 74 U/L (41-126); BUN/Creat Ratio 23.74 Ratio (12.00-20.00); Blood Urea Nitrogen 34.9 mg/dL (9.0-27.0); Calcium 8.1 mg/dL (8.7-10.3); Carbon Dioxide 36.1 mmol/L (21.6-31.8); Chloride 88 mmol/L (96-109); Globulin 2.9 g/dL (1.6-3.3); Glucose 125 mg/dL (70-110); Non-African American GFR(CKD) 33.1 (60.0-200.0); Potassium 3.3 mmol/L (3.5-5.5); Sodium 134 mmol/L (135-145); Total Protein 5.8 g/dL (6.2-8.2)
--- NOTE | 2021-02-27 13:33 | P.PN ---
Subjective Progress Note Date: 02/27/21 Patient is still actively vomiting Patient is weak Constitutional: No acute distress, conversant, pleasant Eyes: Anicteric sclerae, moist conjunctiva, no lid-lag PERRLA ENMT: NC/AT Oropharynx clear, no erythema, exudates Neck: Supple, FROM, no masses, or JVD No carotid bruits No thyromegaly Lungs: Clear to auscultation Clear to percussion Normal respiratory effort, no accessory muscle use Cardiovascular: Heart regular in rate and rhythm, No murmurs, gallops, or rubs No peripheral edema Abdominal: Soft Nontender, no guarding, rebound or rigidity Abdomen moving with respiration Normoactive bowel sounds No hepatomegaly, No splenomegaly No palpable mass No abdominal wall hernia noted Skin: Normal temperature, tone, texture, turgor No induration No subcutaneous nodules No rash, lesions No ulcers Extremities: No digital cyanosis No clubbing Pedal pulses intact and symmetrical Radial pulses intact and symmetrical Normal gait and station No calf tenderness Psychiatric:Alert and oriented to person, place and time Appropriate affect Intact judgement Neuro: Muscles Strength 5/5 in 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 Sensation to light touch grossly present throughout Cranial nerves II-XII grossly intact No focal sensory deficits This is a 80-year-old female with complex past medical history noted below the presented to the emergency room with progressive weakness and unable to take care of herself at home. She was evaluated in the ER and admitted to the hospital for further management of her medical problems noted below. 1. Acute kidney injury on stage IIIB chronic kidney disease 2. Acute metabolic acidosis secondary to above 3. COVID-19 positive screen persistent with original positive on 02/12. Patient is a symptomatic with no evidence of hypoxia 4. Physical debility, PT/OT consult. Patient would benefit from placement. 5. Chronic medical problems: Underlying Parkinson's disease, underlying systolic heart failure with known EF of 45-50%, chronic atrial fibrillation on anticoagulation with Eliquis, history of coronary artery disease with history of CABG, hypertension, hyperlipidemia, peripheral vascular occlusive disease, persisten nausea and vomiting exact etiology not clear continue IV hydration and monitor again Patient will likely need placement after being stabilized of discharge in 2-3 days Objective - Vital Signs Vital signs: Vital Signs Temp 96.4 F L 02/27/21 09:16 Pulse 84 02/27/21 09:16 Resp 18 02/27/21 09:16 BP 138/86 02/27/21 09:16 Pulse Ox 97 02/27/21 09:16 Intake & Output 02/26/21 02/27/21 02/27/21 18:59 06:59 18:59 Intake Total 400 480 Balance 400 480 Intake: Intake, IV Titration 400 Amount Dextrose 5% in Water 1, 400 000 ml @ 50 mls/hr IV . Q23H TODD with Sodium Bicarb (1 Meq/ml) 150 ml Rx#:[id number] Oral 480 Other: Voiding Method Bedside Commode # Voids 3 # Bowel Movements 3 - Labs CBC & Chem 7: 02/27/21 05:59 02/27/21 11:31 Labs: Abnormal Lab Results - Last 24 Hours (Table) 02/26/21 02/26/21 02/27/21 Range/Units 16:52 20:31 05:59 WBC 2.25 L (4.50-10.00) X 10*3/uL RBC 2.66 L (4.10-5.20) X 10*6/uL Hgb 8.6 L (12.0-15.0) g/dL Hct 26.2 L (37.2-46.3) % MCV 98.5 H (80.0-97.0) fL MCH 32.3 H (27.0-32.0) pg RDW 16.2 H (11.5-14.5) % Neutrophils # 1.09 L (1.80-7.70) X 10*3/uL Lymphocytes # 0.50 L (0.90-5.00) X 10*3/uL Eosinophils # 0.02 L (0.04-0.35) X 10*3/uL Sodium (135-145) mmol/L Potassium (3.5-5.5) mmol/L Chloride (96-109) mmol/L Carbon Dioxide (21.6-31.8) mmol/L BUN (9.0-27.0) mg/dL Creatinine (0.52-1.04) mg/dL Est GFR (CKD-EPI)AfAm (60.0-200.0) Est GFR (CKD-EPI)NonAf (60.0-200.0) BUN/Creatinine Ratio (12.00-20.00) Ratio Glucose (70-110) mg/dL POC Glucose (mg/dL) 144 H 152 H (75-99) mg/dL Calcium (8.7-10.3) mg/dL ALT (8-44) U/L Total Protein (6.2-8.2) g/dL Albumin (3.8-4.9) g/dL Albumin/Globulin Ratio (1.60-3.17) g/dL 02/27/21 02/27/21 02/27/21 Range/Units 05:59 06:49 11:29 WBC (4.50-10.00) X 10*3/uL RBC (4.10-5.20) X 10*6/uL Hgb (12.0-15.0) g/dL Hct (37.2-46.3) % MCV (80.0-97.0) fL MCH (27.0-32.0) pg RDW (11.5-14.5) % Neutrophils # (1.80-7.70) X 10*3/uL Lymphocytes # (0.90-5.00) X 10*3/uL Eosinophils # (0.04-0.35) X 10*3/uL Sodium 134 L (135-145) mmol/L Potassium 3.3 L (3.5-5.5) mmol/L Chloride 88 L (96-109) mmol/L Carbon Dioxide 36.1 H (21.6-31.8) mmol/L BUN 34.9 H (9.0-27.0) mg/dL Creatinine (0.52-1.04) mg/dL Est GFR (CKD-EPI)AfAm 38.4 L (60.0-200.0) Est GFR (CKD-EPI)NonAf 33.1 L (60.0-200.0) BUN/Creatinine Ratio 23.74 H (12.00-20.00) Ratio Glucose 125 H (70-110) mg/dL POC Glucose (mg/dL) 151 H 150 H (75-99) mg/dL Calcium 8.1 L (8.7-10.3) mg/dL ALT <5 L (8-44) U/L Total Protein 5.8 L (6.2-8.2) g/dL Albumin 2.9 L (3.8-4.9) g/dL Albumin/Globulin Ratio 1.02 L (1.60-3.17) g/dL 02/27/21 Range/Units 11:31 WBC (4.50-10.00) X 10*3/uL RBC (4.10-5.20) X 10*6/uL Hgb (12.0-15.0) g/dL Hct (37.2-46.3) % MCV (80.0-97.0) fL MCH (27.0-32.0) pg RDW (11.5-14.5) % Neutrophils # (1.80-7.70) X 10*3/uL Lymphocytes # (0.90-5.00) X 10*3/uL Eosinophils # (0.04-0.35) X 10*3/uL Sodium 129 L (135-145) mmol/L Potassium (3.5-5.5) mmol/L Chloride 84 L (96-109) mmol/L Carbon Dioxide 41 H* (21.6-31.8) mmol/L BUN 38 H (9.0-27.0) mg/dL Creatinine 1.43 H (0.52-1.04) mg/dL Est GFR (CKD-EPI)AfAm (60.0-200.0) Est GFR (CKD-EPI)NonAf (60.0-200.0) BUN/Creatinine Ratio (12.00-20.00) Ratio Glucose 151 H (70-110) mg/dL POC Glucose (mg/dL) (75-99) mg/dL Calcium 8.3 L (8.7-10.3) mg/dL ALT (8-44) U/L Total Protein (6.2-8.2) g/dL Albumin (3.8-4.9) g/dL Albumin/Globulin Ratio (1.60-3.17) g/dL Microbiology - Last 24 Hours (Table) 02/22/21 22:13 Blood Culture - Preliminary Blood No Growth after 96 hours
[2021-02-27 16:37] LABS: Glucose,Whole Blood 159 mg/dL (75-99)
[2021-02-27 20:54] LABS: Glucose,Whole Blood 140 mg/dL (75-99)
[2021-02-27] MEDS: FOLIC ACID 1 MG TAB PO SCH (21:29)
[2021-02-27] MEDS: EZETIMIBE 10 MG TAB PO SCH (21:29)
[2021-02-27] MEDS: GABAPENTIN 100 MG CAP PO SCH (21:29)
[2021-02-28] MEDS: DEXTROSE 5% IN WATER 1,000 ML with SODIUM BICARB (1 MEQ/ML) 150 ML IV SCH (05:58)
[2021-02-28 06:57] LABS: Glucose,Whole Blood 129 mg/dL (75-99)
--- NOTE | 2021-02-28 08:46 | P.PN ---
Subjective Progress Note Date: 02/28/21 Principal diagnosis: This is a 80-year-old female seen in consultation because of acute kidney injury, hypercalcemia, etiology unclear being worked up recent history of colon with pneumonia. She continues to have fatigue and tiredness as well as was vomiting yesterday but none today. Her acute kidney injury is deemed to be From hypotension diuretics and antihypertensive medications. Additionally she received 1 dose of Toradol. She is known with atrial fibrillation diabetes type 2 COPD, heart catheterization history of CT. And peripheral vascular disease Vital signs are stable urine output is poorly documented intake is documented at 1080 Objective - Vital Signs Vital signs: Vital Signs Temp 97.9 F 02/28/21 06:00 Pulse 80 02/28/21 06:00 Resp 18 02/27/21 21:58 BP 135/70 02/28/21 06:00 Pulse Ox 96 02/28/21 06:00 Intake & Output 02/27/21 02/28/21 02/28/21 18:59 06:59 18:59 Intake Total 550 530 Output Total 200 Balance 550 330 Weight 72.575 kg Intake: Intake, IV Titration 500 Amount Dextrose 5% in Water 1, 500 000 ml @ 50 mls/hr IV . Q23H TODD with Sodium Bicarb (1 Meq/ml) 150 ml Rx#:[id number] Oral 50 530 Output: Urine 200 Other: Voiding Method Bedside Commode # Bowel Movements 0 Exertions awake alert oriented but looks ill HEENT exam no JVP neck is supple no facial asymmetry Lungs are clear to auscultation fair air entry bilaterally Heart sounds unremarkable for any murmur rub gallop She is known with atrial fibrillation Abdomen soft and slightly tender but vaguely so Extremity exam was no edema Neurologically awake alert oriented but profoundly weak - Labs CBC & Chem 7: 02/27/21 05:59 02/27/21 11:31 Labs: Abnormal Lab Results - Last 24 Hours (Table) 02/27/21 02/27/21 02/27/21 Range/Units 05:59 05:59 11:29 WBC 2.25 L (4.50-10.00) X 10*3/uL RBC 2.66 L (4.10-5.20) X 10*6/uL Hgb 8.6 L (12.0-15.0) g/dL Hct 26.2 L (37.2-46.3) % MCV 98.5 H (80.0-97.0) fL MCH 32.3 H (27.0-32.0) pg RDW 16.2 H (11.5-14.5) % Neutrophils # 1.09 L (1.80-7.70) X 10*3/uL Lymphocytes # 0.50 L (0.90-5.00) X 10*3/uL Eosinophils # 0.02 L (0.04-0.35) X 10*3/uL Sodium 134 L (135-145) mmol/L Potassium 3.3 L (3.5-5.5) mmol/L Chloride 88 L (96-109) mmol/L Carbon Dioxide 36.1 H (21.6-31.8) mmol/L BUN 34.9 H (9.0-27.0) mg/dL Creatinine (0.52-1.04) mg/dL Est GFR (CKD-EPI)AfAm 38.4 L (60.0-200.0) Est GFR (CKD-EPI)NonAf 33.1 L (60.0-200.0) BUN/Creatinine Ratio 23.74 H (12.00-20.00) Ratio Glucose 125 H (70-110) mg/dL POC Glucose (mg/dL) 150 H (75-99) mg/dL Calcium 8.1 L (8.7-10.3) mg/dL ALT <5 L (8-44) U/L Total Protein 5.8 L (6.2-8.2) g/dL Albumin 2.9 L (3.8-4.9) g/dL Albumin/Globulin Ratio 1.02 L (1.60-3.17) g/dL 02/27/21 02/27/21 02/27/21 Range/Units 11:31 16:35 20:47 WBC (4.50-10.00) X 10*3/uL RBC (4.10-5.20) X 10*6/uL Hgb (12.0-15.0) g/dL Hct (37.2-46.3) % MCV (80.0-97.0) fL MCH (27.0-32.0) pg RDW (11.5-14.5) % Neutrophils # (1.80-7.70) X 10*3/uL Lymphocytes # (0.90-5.00) X 10*3/uL Eosinophils # (0.04-0.35) X 10*3/uL Sodium 129 L (135-145) mmol/L Potassium (3.5-5.5) mmol/L Chloride 84 L (96-109) mmol/L Carbon Dioxide 41 H* (21.6-31.8) mmol/L BUN 38 H (9.0-27.0) mg/dL Creatinine 1.43 H (0.52-1.04) mg/dL Est GFR (CKD-EPI)AfAm (60.0-200.0) Est GFR (CKD-EPI)NonAf (60.0-200.0) BUN/Creatinine Ratio (12.00-20.00) Ratio Glucose 151 H (70-110) mg/dL POC Glucose (mg/dL) 159 H 140 H (75-99) mg/dL Calcium 8.3 L (8.7-10.3) mg/dL ALT (8-44) U/L Total Protein (6.2-8.2) g/dL Albumin (3.8-4.9) g/dL Albumin/Globulin Ratio (1.60-3.17) g/dL 02/28/21 Range/Units 06:54 WBC (4.50-10.00) X 10*3/uL RBC (4.10-5.20) X 10*6/uL Hgb (12.0-15.0) g/dL Hct (37.2-46.3) % MCV (80.0-97.0) fL MCH (27.0-32.0) pg RDW (11.5-14.5) % Neutrophils # (1.80-7.70) X 10*3/uL Lymphocytes # (0.90-5.00) X 10*3/uL Eosinophils # (0.04-0.35) X 10*3/uL Sodium (135-145) mmol/L Potassium (3.5-5.5) mmol/L Chloride (96-109) mmol/L Carbon Dioxide (21.6-31.8) mmol/L BUN (9.0-27.0) mg/dL Creatinine (0.52-1.04) mg/dL Est GFR (CKD-EPI)AfAm (60.0-200.0) Est GFR (CKD-EPI)NonAf (60.0-200.0) BUN/Creatinine Ratio (12.00-20.00) Ratio Glucose (70-110) mg/dL POC Glucose (mg/dL) 129 H (75-99) mg/dL Calcium (8.7-10.3) mg/dL ALT (8-44) U/L Total Protein (6.2-8.2) g/dL Albumin (3.8-4.9) g/dL Albumin/Globulin Ratio (1.60-3.17) g/dL Microbiology - Last 24 Hours (Table) 02/22/21 22:13 Blood Culture - Preliminary Blood No Growth after 120 hours Assessment and Plan Assessment: Present 1. Acute kidney injury secondary to volume depletion improved. Creatinine improved from 2.89-1.43 as of yesterday. 2. Mild degree of hyponatremia, sodium and down from 133-134 yesterday morning and within5 hours was recorded at 129 etiology is not clear 3. Hypercalcemia calcium and down from 11.5 on 02/23/2021 to 8.3. Could have been from volume depletion 4. New onset of metabolic alkalosis bicarb is 41 blood gases not available. Bicarb was 14 on the , and up to 22 on the and then to 36 and 41 yesterday on 2 different labs. She was on sodium bicarb drip that was discontinued. 5. Diabetes mellitus 6. Atrial fibrillation 7. COPD obstructive sleep apnea cardiomyopathy. 8. Recent: COVID 19 positive Recommendation Hold any IV fluids and or diuretics. Will redo labs tomorrow and addressed the metabolic alkalosis if it is confirmed to be true
[2021-02-28] MEDS: INSULIN ASPART (NovoLOG) 100 UNIT/ML VIAL SQ SCH ×4 (08:54→22:40)
[2021-02-28] MEDS: METOPROLOL TARTRATE 12.5 MG TAB PO SCH ×2 (08:58→22:39)
[2021-02-28] MEDS: DOCUSATE 100 MG CAP PO SCH ×2 (08:58→22:40)
[2021-02-28] MEDS: FERROUS SULFATE 325 MG TAB PO SCH (08:58)
[2021-02-28] MEDS: CARBIDOPA-LEVODOPA 25-100 MG 1 EACH TAB PO SCH ×4 (08:58→22:40)
[2021-02-28] MEDS: CYANOCOBALAMIN 500 MCG TAB PO SCH (08:58)
[2021-02-28] MEDS: APIXABAN 2.5 MG TABLET PO SCH ×2 (08:58→22:40)
[2021-02-28 09:00] LABS: Basophils # (A) 0.01 X 10*3/uL (0.00-0.10); Basophils % (A) 0.4 %; Eosinophils # (A) 0 X 10*3/uL (0.04-0.35); Eosinophils % (A) 0 %; HGB 8.1 g/dL (12.0-15.0); Lymphocytes # (A) 0.42 X 10*3/uL (0.90-5.00); Lymphocytes % (A) 15.7 %; MCH 31.9 pg (27.0-32.0); MCHC 32.4 g/dL (32.0-37.0); MCV 98.4 fL (80.0-97.0); Monocytes # (A) 0.61 X 10*3/uL (0.20-1.00); Monocytes % (A) 22.8 %; Neutrophils # (A) 1.57 X 10*3/uL (1.80-7.70); Neutrophils % (A) 58.5 %; Platelet Count 158 X 10*3/uL (140-440); RBC 2.54 X 10*6/uL (4.10-5.20); RDW 15.9 % (11.5-14.5); WBC 2.68 X 10*3/uL (4.50-10.00)
[2021-02-28] MEDS: ONDANSETRON 4 MG/2 ML VIAL IVP PRN ×2 (09:00→22:41)
[2021-02-28 09:33] LABS: ALT <5 U/L (8-44); AST 32 U/L (13-35); African American GFR (CKD) 44.6 (60.0-200.0); Albumin 2.8 g/dL (3.8-4.9); Alkaline Phosphatase 67 U/L (41-126); BUN/Creat Ratio 17.85 Ratio (12.00-20.00); Blood Urea Nitrogen 23.2 mg/dL (9.0-27.0); Calcium 7.8 mg/dL (8.7-10.3); Carbon Dioxide 37.3 mmol/L (21.6-31.8); Chloride 85 mmol/L (96-109); Globulin 2.8 g/dL (1.6-3.3); Glucose 135 mg/dL (70-110); Non-African American GFR(CKD) 38.4 (60.0-200.0); Potassium 3.4 mmol/L (3.5-5.5); Sodium 133 mmol/L (135-145); Total Protein 5.6 g/dL (6.2-8.2)
[2021-02-28 11:49] LABS: Glucose,Whole Blood 181 mg/dL (75-99)
--- NOTE | 2021-02-28 14:38 | P.PN ---
Subjective patient is doing better today. Nausea is improving. She is able to tolerate breakfast with no difficulty. Objective - Vital Signs Vital signs: Vital Signs Temp 97.6 F 02/28/21 10:00 Pulse 64 02/28/21 10:00 Resp 16 02/28/21 10:00 BP 105/64 02/28/21 10:00 Pulse Ox 100 02/28/21 10:00 Intake & Output 02/27/21 02/28/21 02/28/21 18:59 06:59 18:59 Intake Total 550 530 Output Total 200 Balance 550 330 Weight 72.575 kg Intake: Intake, IV Titration 500 Amount Dextrose 5% in Water 1, 500 000 ml @ 50 mls/hr IV . Q23H TODD with Sodium Bicarb (1 Meq/ml) 150 ml Rx#:[id number] Oral 50 530 Output: Urine 200 Other: Voiding Method Bedside Commode Bedside Commode # Bowel Movements 0 - Exam General: The patient is awake and alert, in no distress Eye: there is normal conjunctiva bilaterally. Neck: The neck is supple, there is no JVD. Cardiovascular: Normal S1-S2, no S3-S4, no murmurs. Respiratory: Lungs clear to auscultation bilaterally Gastrointestinal: Abdomen is soft, nontender Musculoskeletal: There is no pedal edema. Neurological:. Speech is normal. Skin: Skin is warm and dry - Labs CBC & Chem 7: 02/28/21 05:45 02/28/21 05:44 Labs: Abnormal Lab Results - Last 24 Hours (Table) 02/27/21 02/27/21 02/28/21 Range/Units 16:35 20:47 05:44 WBC (4.50-10.00) X 10*3/uL RBC (4.10-5.20) X 10*6/uL Hgb (12.0-15.0) g/dL Hct (37.2-46.3) % MCV (80.0-97.0) fL RDW (11.5-14.5) % Immature Gran # (0.00-0.04) X 10*3/uL Neutrophils # (1.80-7.70) X 10*3/uL Lymphocytes # (0.90-5.00) X 10*3/uL Eosinophils # (0.04-0.35) X 10*3/uL Sodium 133 L (135-145) mmol/L Potassium 3.4 L (3.5-5.5) mmol/L Chloride 85 L (96-109) mmol/L Carbon Dioxide 37.3 H (21.6-31.8) mmol/L Est GFR (CKD-EPI)AfAm 44.6 L (60.0-200.0) Est GFR (CKD-EPI)NonAf 38.4 L (60.0-200.0) Glucose 135 H (70-110) mg/dL POC Glucose (mg/dL) 159 H 140 H (75-99) mg/dL Calcium 7.8 L (8.7-10.3) mg/dL ALT <5 L (8-44) U/L Total Protein 5.6 L (6.2-8.2) g/dL Albumin 2.8 L (3.8-4.9) g/dL Albumin/Globulin Ratio 1.00 L (1.60-3.17) g/dL 02/28/21 02/28/21 02/28/21 Range/Units 05:45 06:54 11:47 WBC 2.68 L (4.50-10.00) X 10*3/uL RBC 2.54 L (4.10-5.20) X 10*6/uL Hgb 8.1 L (12.0-15.0) g/dL Hct 25.0 L (37.2-46.3) % MCV 98.4 H (80.0-97.0) fL RDW 15.9 H (11.5-14.5) % Immature Gran # 0.07 H (0.00-0.04) X 10*3/uL Neutrophils # 1.57 L (1.80-7.70) X 10*3/uL Lymphocytes # 0.42 L (0.90-5.00) X 10*3/uL Eosinophils # 0 L (0.04-0.35) X 10*3/uL Sodium (135-145) mmol/L Potassium (3.5-5.5) mmol/L Chloride (96-109) mmol/L Carbon Dioxide (21.6-31.8) mmol/L Est GFR (CKD-EPI)AfAm (60.0-200.0) Est GFR (CKD-EPI)NonAf (60.0-200.0) Glucose (70-110) mg/dL POC Glucose (mg/dL) 129 H 181 H (75-99) mg/dL Calcium (8.7-10.3) mg/dL ALT (8-44) U/L Total Protein (6.2-8.2) g/dL Albumin (3.8-4.9) g/dL Albumin/Globulin Ratio (1.60-3.17) g/dL Microbiology - Last 24 Hours (Table) 02/22/21 22:13 Blood Culture - Preliminary Blood No Growth after 120 hours Assessment and Plan Assessment: This is a 80-year-old female with complex past medical history noted below the presented to the emergency room with progressive weakness and unable to take care of herself at home. She was evaluated in the ER and admitted to the hospital for further management of her medical problems noted below. 1. Acute kidney injury on stage IIIB chronic kidney disease 2. Acute metabolic acidosis secondary to above 3. COVID-19 positive screen persistent with original positive on 02/12. Patient is a symptomatic with no evidence of hypoxia 4. Physical debility, PT/OT consult. Patient would benefit from placement. 5. Chronic medical problems: Underlying Parkinson's disease, underlying systolic heart failure with known EF of 45-50%, chronic atrial fibrillation on anticoagulation with Eliquis, history of coronary artery disease with history of CABG, hypertension, hyperlipidemia, peripheral vascular occlusive disease, Today, I reviewed her medication list and lab work results. I discontinued bicarb drip and oral sodium bicarb. Repeat lab work in the morning. Apparently patient was having problems with nausea in the last couple of days that is improving now. Placement on Tuesday.
[2021-02-28 16:42] LABS: Glucose,Whole Blood 139 mg/dL (75-99)
[2021-02-28 20:33] LABS: Glucose,Whole Blood 148 mg/dL (75-99)
[2021-02-28] MEDS: traMADol 50 MG TAB PO PRN (22:39)
[2021-02-28] MEDS: FOLIC ACID 1 MG TAB PO SCH (22:40)
[2021-02-28] MEDS: EZETIMIBE 10 MG TAB PO SCH (22:40)
[2021-02-28] MEDS: GABAPENTIN 100 MG CAP PO SCH (22:40)
[2021-03-01 07:03] LABS: Glucose,Whole Blood 136 mg/dL (75-99)
[2021-03-01] MEDS: APIXABAN 2.5 MG TABLET PO SCH ×2 (07:33→21:46)
[2021-03-01] MEDS: DOCUSATE 100 MG CAP PO SCH ×2 (07:33→21:47)
[2021-03-01] MEDS: INSULIN ASPART (NovoLOG) 100 UNIT/ML VIAL SQ SCH ×4 (07:33→21:48)
[2021-03-01] MEDS: METOPROLOL TARTRATE 12.5 MG TAB PO SCH ×2 (07:34→21:47)
[2021-03-01] MEDS: FERROUS SULFATE 325 MG TAB PO SCH (07:34)
[2021-03-01] MEDS: CARBIDOPA-LEVODOPA 25-100 MG 1 EACH TAB PO SCH ×4 (07:34→21:47)
[2021-03-01] MEDS: CYANOCOBALAMIN 500 MCG TAB PO SCH (07:34)
--- NOTE | 2021-03-01 08:40 | P.PN ---
Subjective Progress Note Date: 03/01/21 Principal diagnosis: This is a 80-year-old female seen in consultation because of acute kidney injury, secondary to hypotension diuretics and Toradol. Additionally she had hypercalcemia, likely secondary to volume depletion with recent history of Covid pneumonia. She continues to have fatigue and tiredness. Also complains of dysphagia and epigastric discomfort after eating. Has had normal bowel movement this morning. She is known with atrial fibrillation diabetes type 2 COPD, heart catheterization history of PA. And peripheral vascular disease Vital signs are stable urine output is poorly documented Objective - Vital Signs Vital signs: Vital Signs Temp 97.9 F 03/01/21 06:00 Pulse 92 03/01/21 06:00 Resp 18 03/01/21 06:00 BP 136/70 03/01/21 06:00 Pulse Ox 100 03/01/21 06:00 Intake & Output 02/28/21 03/01/21 03/01/21 18:59 06:59 18:59 Intake Total 960 Output Total 200 Balance 760 Intake: Oral 960 Output: Urine 200 Other: Voiding Method Bedside Commode Bedside Commode # Voids 1 1 Exam she looks depressed awake alert sitting in a HEENT exam no JVP neck is supple no facial asymmetry Lungs are significant of bilateral fine crackles. Good air entry bilaterally Heart sounds unremarkable for any murmur rub gallop Abdomen soft nontender. Slightly protuberant Extremity exam reveals trace edema Neurologically awake alert oriented - Labs CBC & Chem 7: 02/28/21 05:45 02/28/21 05:44 Labs: Abnormal Lab Results - Last 24 Hours (Table) 02/28/21 02/28/21 02/28/21 Range/Units 05:44 05:45 11:47 WBC 2.68 L (4.50-10.00) X 10*3/uL RBC 2.54 L (4.10-5.20) X 10*6/uL Hgb 8.1 L (12.0-15.0) g/dL Hct 25.0 L (37.2-46.3) % MCV 98.4 H (80.0-97.0) fL RDW 15.9 H (11.5-14.5) % Immature Gran # 0.07 H (0.00-0.04) X 10*3/uL Neutrophils # 1.57 L (1.80-7.70) X 10*3/uL Lymphocytes # 0.42 L (0.90-5.00) X 10*3/uL Eosinophils # 0 L (0.04-0.35) X 10*3/uL Sodium 133 L (135-145) mmol/L Potassium 3.4 L (3.5-5.5) mmol/L Chloride 85 L (96-109) mmol/L Carbon Dioxide 37.3 H (21.6-31.8) mmol/L Est GFR (CKD-EPI)AfAm 44.6 L (60.0-200.0) Est GFR (CKD-EPI)NonAf 38.4 L (60.0-200.0) Glucose 135 H (70-110) mg/dL POC Glucose (mg/dL) 181 H (75-99) mg/dL Calcium 7.8 L (8.7-10.3) mg/dL ALT <5 L (8-44) U/L Total Protein 5.6 L (6.2-8.2) g/dL Albumin 2.8 L (3.8-4.9) g/dL Albumin/Globulin Ratio 1.00 L (1.60-3.17) g/dL 02/28/21 02/28/21 03/01/21 Range/Units 16:41 20:28 07:02 WBC (4.50-10.00) X 10*3/uL RBC (4.10-5.20) X 10*6/uL Hgb (12.0-15.0) g/dL Hct (37.2-46.3) % MCV (80.0-97.0) fL RDW (11.5-14.5) % Immature Gran # (0.00-0.04) X 10*3/uL Neutrophils # (1.80-7.70) X 10*3/uL Lymphocytes # (0.90-5.00) X 10*3/uL Eosinophils # (0.04-0.35) X 10*3/uL Sodium (135-145) mmol/L Potassium (3.5-5.5) mmol/L Chloride (96-109) mmol/L Carbon Dioxide (21.6-31.8) mmol/L Est GFR (CKD-EPI)AfAm (60.0-200.0) Est GFR (CKD-EPI)NonAf (60.0-200.0) Glucose (70-110) mg/dL POC Glucose (mg/dL) 139 H 148 H 136 H (75-99) mg/dL Calcium (8.7-10.3) mg/dL ALT (8-44) U/L Total Protein (6.2-8.2) g/dL Albumin (3.8-4.9) g/dL Albumin/Globulin Ratio (1.60-3.17) g/dL Microbiology - Last 24 Hours (Table) 02/22/21 22:13 Blood Culture - Final Blood No Growth after 144 hours Assessment and Plan Assessment: Present 1. Acute kidney injury secondary to low blood pressure and possibly volume depletion improved. Creatinine improved from 2.89-1.43 and 1.3 as of yesterday. 2. Mild degree of hyponatremia,, improved to 133. etiology is acute kidney injury 3. Hypercalcemia calcium and down from 11.5 on 02/23/2021 to 8.3. Likely from volume depletion 4. New onset of metabolic alkalosis bicarb is 41 blood gases not available. Bicarb was 14 on the , and up to 22 on the and then to 36 and 41 yesterday on 2 different labs. She was on sodium bicarb drip that was discontinued. Subsequent to this it has improved to 37 as of yesterday 5. Diabetes mellitus 6. Atrial fibrillation 7. COPD obstructive sleep apnea cardiomyopathy. 8. Recent: COVID 19 positive Recommendation 1. Obtain chest x-ray because of the clinical findings of bilateral fine crackles to ensure there is no worsening of congestive heart failure 2. Maintain need diuretics but will wait until BX report is available 3. Patient complains of abdominal pain in the epigastric area post prandial as well as dysphagia, will defer to the primary regarding this
--- NOTE | 2021-03-01 10:50 | XR ---
EXAMINATION TYPE: XR chest 1V DATE OF EXAM: 03/01/2021 COMPARISON: 02/22/2021 HISTORY: 80 years Female. STUDY INDICATION GIVEN: CHF . TECHNIQUE: AP chest radiograph IMPRESSION: Worsened patchy opacity in the left lower lobe concerning for pneumonia. Mild interstitial edema and cardiomegaly with postsurgical changes in the mediastinum no significant change. Atherosclerotic calcification seen in the intrathoracic aorta. No pneumothorax or significant effusion. Stable osseous structures.
[2021-03-01 11:40] LABS: Glucose,Whole Blood 174 mg/dL (75-99)
[2021-03-01] MEDS ORDERED: ALPRAZolam 0.25 MG TAB PO STA (15:53)
[2021-03-01 16:36] LABS: Glucose,Whole Blood 148 mg/dL (75-99)
[2021-03-01] MEDS: FUROSEMIDE 10 MG/ML 4 ML VIAL IV SCH (17:05)
--- NOTE | 2021-03-01 17:11 | P.PN ---
Subjective Progress Note Date: 03/01/21 Patient complaint of worsening dyspnea today, poor appetite, denies fevers, chills, nausea, vomiting Objective - Vital Signs Vital signs: Vital Signs Temp 98.0 F 03/01/21 14:00 Pulse 77 03/01/21 14:00 Resp 18 03/01/21 14:00 BP 129/71 03/01/21 14:00 Pulse Ox 99 03/01/21 14:00 Intake & Output 02/28/21 03/01/21 03/01/21 18:59 06:59 18:59 Intake Total 960 Output Total 200 Balance 760 Intake: Oral 960 Output: Urine 200 Other: Voiding Method Bedside Commode Bedside Commode Bedside Commode # Voids 1 1 # Bowel Movements 1 - Exam Gen: awake, alert HEENT: normocephalic, atraumatic, good hearing acuity, moist mucous membranes Resp: good air exchange, breathing comfortably with no accessory muscle use, left basal crackles greater than right CVS: good distal perfusion x 4, regular rate and rhythm without murmurs GI: soft, NTTP, ND : no SPT, no CVAT, brower catheter not present MSK: Bilateral pitting edema, no clubbing Neuro: non-focal, moving all extremities Psych: cooperative, euthymic mood - Labs CBC & Chem 7: 02/28/21 05:45 02/28/21 05:44 Labs: Abnormal Lab Results - Last 24 Hours (Table) 02/28/21 02/28/21 03/01/21 Range/Units 16:41 20:28 07:02 POC Glucose (mg/dL) 139 H 148 H 136 H (75-99) mg/dL 03/01/21 03/01/21 Range/Units 11:39 16:34 POC Glucose (mg/dL) 174 H 148 H (75-99) mg/dL Microbiology - Last 24 Hours (Table) 02/22/21 22:13 Blood Culture - Final Blood No Growth after 144 hours Assessment and Plan Assessment: This is a 80-year-old female with complex past medical history noted below the presented to the emergency room with progressive weakness and unable to take care of herself at home. She was evaluated in the ER and admitted to the hospital for further management of her medical problems noted below. 1. Acute kidney injury on stage IIIB chronic kidney disease 2. Acute metabolic acidosis secondary to above 3. COVID-19 positive screen persistent with original positive on 02/12. Patient is a symptomatic with no evidence of hypoxia 4. Physical debility, PT/OT consult. Patient would benefit from placement. 5. Chronic medical problems: Underlying Parkinson's disease, underlying systolic heart failure with known EF of 45-50%, chronic atrial fibrillation on anticoagulation with Eliquis, history of coronary artery disease with history of CABG, hypertension, hyperlipidemia, peripheral vascular occlusive disease, Today, I reviewed her medication list and lab work results. I reviewed her CXR which showed left basal infiltrate. I ordered an echo, BNP, Procalcitonin, Sputum Cx. I started patient on IV lasix. Holding off on abx for now. Repeat lab work in the morning.
[2021-03-01] MEDS ORDERED: AZITHROMYCIN 500 MG in SODIUM CHLORIDE 0.9% 250 ML IVPB SCH (20:00)
[2021-03-01 20:08] LABS: Glucose,Whole Blood 203 mg/dL (75-99)
[2021-03-01] MEDS: EZETIMIBE 10 MG TAB PO SCH (21:46)
[2021-03-01] MEDS: GABAPENTIN 100 MG CAP PO SCH (21:47)
[2021-03-01] MEDS: FOLIC ACID 1 MG TAB PO SCH (21:47)
[2021-03-02 07:14] LABS: Glucose,Whole Blood 195 mg/dL (75-99)
[2021-03-02] MEDS ORDERED: FUROSEMIDE 10 MG/ML 4 ML VIAL IV STA (07:43)
[2021-03-02] MEDS: DOCUSATE 100 MG CAP PO SCH ×2 (07:45→20:35)
[2021-03-02] MEDS: APIXABAN 2.5 MG TABLET PO SCH ×2 (07:45→20:35)
[2021-03-02] MEDS: CYANOCOBALAMIN 500 MCG TAB PO SCH (07:45)
[2021-03-02] MEDS: METOPROLOL TARTRATE 12.5 MG TAB PO SCH ×2 (07:46→20:35)
[2021-03-02] MEDS: FUROSEMIDE 10 MG/ML 4 ML VIAL IV SCH (07:46)
[2021-03-02] MEDS: FERROUS SULFATE 325 MG TAB PO SCH (07:46)
[2021-03-02] MEDS: CARBIDOPA-LEVODOPA 25-100 MG 1 EACH TAB PO SCH ×4 (07:46→21:08)
[2021-03-02] MEDS: INSULIN ASPART (NovoLOG) 100 UNIT/ML VIAL SQ SCH ×5 (07:46→21:08)
[2021-03-02] MEDS ORDERED: FUROSEMIDE 10 MG/ML 4 ML VIAL IV SCH (09:00)
[2021-03-02 09:31] LABS: Anisocytosis Slight; Basophils % (A) 0 %; Eosinophils % (A) 1 %; HCT 27.8 % (34.0-46.0); HGB 9.3 gm/dL (11.4-16.0); Hypochromasia Slight; Lymphocytes # (A) 0.7 k/uL (1.0-4.8); Lymphocytes % (A) 12 %; MCHC 33.4 g/dL (31.0-37.0); MCV 98.7 fL (80.0-100.0); Macrocytosis Slight; Mean Platelet Volume 7.7; Monocytes # (A) 0.5 k/uL (0-1.0); Monocytes % (A) 9 %; Neutrophils # (A) 4.6 k/uL (1.3-7.7); Neutrophils % (A) 76 %; Platelet Count 185 k/uL (150-450); Poikilocytosis Moderate; RBC 2.81 m/uL (3.80-5.40); RDW 17.2 % (11.5-15.5)
[2021-03-02 09:49] LABS: African American GFR (CKD) 36 (>60 ml/min/1.73 sqM); Anion Gap 7 mmol/L; Blood Urea Nitrogen 23 mg/dL (7-17); Calcium 7.4 mg/dL (8.4-10.2); Chloride 83 mmol/L (98-107); Glucose 196 mg/dL (74-99); Magnesium 1.5 mg/dL (1.6-2.3); Non-African American GFR(CKD) 31 (>60 ml/min/1.73 sqM); Potassium 3.7 mmol/L (3.5-5.1); Sodium 130 mmol/L (137-145)
[2021-03-02 09:56] LABS: Carbon Dioxide 40 mmol/L (22-30)
--- NOTE | 2021-03-02 10:42 | ECHOF ---
Referral Reason:Hx of systolic ischemic cardiomyopathy MEASUREMENTS -------- HEIGHT: 157.5 cm WEIGHT: 72.6 kg BP: 124/73 RVIDd: 3.5 cm (< 3.3) IVSd: 1.5 cm (0.6 - 1.1) LVIDd: 4.2 cm (3.9 - 5.3) LVPWd: 1.6 cm (0.6 - 1.1) IVSs: 1.9 cm LVIDs: 3.3 cm LVPWs: 2.0 cm LA Diam: 3.3 cm (2.7 - 3.8) Ao Diam: 3.1 cm (2.0 - 3.7) AV Cusp: 1.1 cm (1.5 - 2.6) RAP: 15.00 mmHg RVSP: 46.87 mmHg FINDINGS -------- This was a technically difficult study with suboptimal views. The left ventricular size is normal. There is moderate concentric left ventricular hypertrophy. O verall left ventricular systolic function is normal with, an EF between 60 - 65 %. The right ventricle is mildly enlarged. The left atrium is normal in size. The right atrium is normal in size. The aortic valve is trileaflet, and appears structurally normal. No aortic stenosis or regurgitation. Mild mitral annular calcification present. Mild mitral regurgitation is present. Mild tricuspid regurgitation present. There is moderate pulmonary hypertension. The right ventric ular systolic pressure, as measured by Doppler, is 46.87mmHg. The pulmonic valve was not well visualized. The aortic root size is normal. Normal inferior vena cava with less than 50% inspiratory collapse consistent with estimated right atr ial pressure of 15 mmHg. There is no pericardial effusion. CONCLUSIONS -------- 1. The left ventricular size is normal. 2. There is moderate concentric left ventricular hypertrophy. 3. Overall left ventricular systolic function is normal with, an EF between 60 - 65 %. 4. The right ventricle is mildly enlarged. 5. The aortic valve is trileaflet, and appears structurally normal. No aortic stenosis or regurgitati on. 6. Mild mitral annular calcification present. 7. Mild mitral regurgitation is present. 8. Mild tricuspid regurgitation present. 9. There is moderate pulmonary hypertension. 10. The right ventricular systolic pressure, as measured by Doppler, is 46.87mmHg. 11. Normal inferior vena cava with less than 50% inspiratory collapse consistent with estimated right atrial pressure of 15 mmHg. 12. There is no pericardial effusion. STUDENT FINANCE ADVISOR: Rosalina Huertas RDCS
--- NOTE | 2021-03-02 11:26 | P.PN ---
Subjective Progress Note Date: 03/02/21 Pt had very good UOP over last 24 hours. Reports improvement in her breathing. She is saturating 96% on room air on my in room assessment, no tachypnea or labored breathing. Kidney function is at baseline. PC was 0.08, BNP >4000. Objective - Vital Signs Vital signs: Vital Signs Temp 98.0 F 03/02/21 10:00 Pulse 100 03/02/21 10:00 Resp 18 03/02/21 10:00 BP 107/60 03/02/21 10:00 Pulse Ox 90 L 03/02/21 10:00 Intake & Output 03/01/21 03/02/21 03/02/21 18:59 06:59 18:59 Intake Total 1440 Output Total 200 Balance 1240 Intake: Oral 1440 Output: Urine 200 Other: Voiding Method Bedside Commode Bedside Commode # Voids 1 # Bowel Movements 1 1 - Exam Gen: awake, alert HEENT: normocephalic, atraumatic, good hearing acuity, moist mucous membranes Resp: good air exchange, breathing comfortably with no accessory muscle use, left basal crackles greater than right CVS: good distal perfusion x 4, regular rate and rhythm without murmurs GI: soft, NTTP, ND : no SPT, no CVAT, brower catheter not present MSK: Bilateral pitting edema, no clubbing Neuro: non-focal, moving all extremities Psych: cooperative, euthymic mood - Labs CBC & Chem 7: 03/02/21 08:57 03/02/21 08:57 Labs: Abnormal Lab Results - Last 24 Hours (Table) 03/01/21 03/01/21 03/01/21 Range/Units 11:39 16:34 20:07 RBC (3.80-5.40) m/uL Hgb (11.4-16.0) gm/dL Hct (34.0-46.0) % RDW (11.5-15.5) % Lymphocytes # (1.0-4.8) k/uL Sodium (137-145) mmol/L Chloride (98-107) mmol/L Carbon Dioxide (22-30) mmol/L BUN (7-17) mg/dL Creatinine (0.52-1.04) mg/dL Glucose (74-99) mg/dL POC Glucose (mg/dL) 174 H 148 H 203 H (75-99) mg/dL Calcium (8.4-10.2) mg/dL Magnesium (1.6-2.3) mg/dL 03/02/21 03/02/21 03/02/21 Range/Units 06:57 08:57 08:57 RBC 2.81 L (3.80-5.40) m/uL Hgb 9.3 L (11.4-16.0) gm/dL Hct 27.8 L (34.0-46.0) % RDW 17.2 H (11.5-15.5) % Lymphocytes # 0.7 L (1.0-4.8) k/uL Sodium 130 L (137-145) mmol/L Chloride 83 L (98-107) mmol/L Carbon Dioxide 40 H (22-30) mmol/L BUN 23 H (7-17) mg/dL Creatinine 1.56 H (0.52-1.04) mg/dL Glucose 196 H (74-99) mg/dL POC Glucose (mg/dL) 195 H (75-99) mg/dL Calcium 7.4 L (8.4-10.2) mg/dL Magnesium 1.5 L (1.6-2.3) mg/dL Microbiology - Last 24 Hours (Table) 03/01/21 20:55 Sputum Culture - Preliminary Sputum Assessment and Plan Assessment: This is a 80-year-old female with complex past medical history noted below the presented to the emergency room with progressive weakness and unable to take care of herself at home. She was evaluated in the ER and admitted to the hospital for further management of her medical problems noted below. 1. Acute kidney injury on stage IIIB chronic kidney disease 2. Acute metabolic acidosis secondary to above 3. COVID-19 positive screen persistent with original positive on 02/12. Patient is a symptomatic with no evidence of hypoxia 4. Physical debility, PT/OT consult. Patient would benefit from placement. 5. Chronic medical problems: Underlying Parkinson's disease, underlying systolic heart failure with known EF of 45-50%, chronic atrial fibrillation on anticoagulation with Eliquis, history of coronary artery disease with history of CABG, hypertension, hyperlipidemia, peripheral vascular occlusive disease, Today, I reviewed her medication list and lab work results including normal Procal and elevated BNP. I reviewed her Echo with showed pulm HTN, good EF, no WMA, no significant valvular pathology. I gave additional dose of IV lasix. Discontinued abx. Reduced her oxygen to room air. Repeat lab work in the morning.
[2021-03-02 11:28] LABS: Glucose,Whole Blood 182 mg/dL (75-99)
[2021-03-02] MEDS: MAGNESIUM SULFATE-D5W PMX 1 GM in DEXTROSE/WATER 1 100ML.BAG IVPB SCH ×3 (12:23→14:46)
--- NOTE | 2021-03-02 13:31 | P.PN ---
Subjective Patient is seen in follow-up for acute kidney injury. Renal function worse today. She did receive IV Lasix this morning. She is currently on room air. Has been waiting. No vomiting or diarrhea. Oral intake is fair. Vital signs are stable. General: The patient appeared well nourished and normally developed. HEENT: Head exam is unremarkable. LUNGS: Breath sounds decreased. HEART: Rate and Rhythm are regular. ABDOMEN: Soft, no distention. EXTREMITITES: Trace edema. Objective - Vital Signs Vital signs: Vital Signs Temp 98.0 F 03/02/21 10:00 Pulse 100 03/02/21 10:00 Resp 18 03/02/21 10:00 BP 107/60 03/02/21 10:00 Pulse Ox 90 L 03/02/21 10:00 Intake & Output 03/01/21 03/02/21 03/02/21 18:59 06:59 18:59 Intake Total 1440 Output Total 200 Balance 1240 Intake: Oral 1440 Output: Urine 200 Other: Voiding Method Bedside Commode Bedside Commode # Voids 1 # Bowel Movements 1 1 - Labs CBC & Chem 7: 03/02/21 08:57 03/02/21 08:57 Labs: Abnormal Lab Results - Last 24 Hours (Table) 03/01/21 03/01/21 03/02/21 Range/Units 16:34 20:07 06:57 RBC (3.80-5.40) m/uL Hgb (11.4-16.0) gm/dL Hct (34.0-46.0) % RDW (11.5-15.5) % Lymphocytes # (1.0-4.8) k/uL Sodium (137-145) mmol/L Chloride (98-107) mmol/L Carbon Dioxide (22-30) mmol/L BUN (7-17) mg/dL Creatinine (0.52-1.04) mg/dL Glucose (74-99) mg/dL POC Glucose (mg/dL) 148 H 203 H 195 H (75-99) mg/dL Calcium (8.4-10.2) mg/dL Magnesium (1.6-2.3) mg/dL 03/02/21 03/02/21 03/02/21 Range/Units 08:57 08:57 11:26 RBC 2.81 L (3.80-5.40) m/uL Hgb 9.3 L (11.4-16.0) gm/dL Hct 27.8 L (34.0-46.0) % RDW 17.2 H (11.5-15.5) % Lymphocytes # 0.7 L (1.0-4.8) k/uL Sodium 130 L (137-145) mmol/L Chloride 83 L (98-107) mmol/L Carbon Dioxide 40 H (22-30) mmol/L BUN 23 H (7-17) mg/dL Creatinine 1.56 H (0.52-1.04) mg/dL Glucose 196 H (74-99) mg/dL POC Glucose (mg/dL) 182 H (75-99) mg/dL Calcium 7.4 L (8.4-10.2) mg/dL Magnesium 1.5 L (1.6-2.3) mg/dL Microbiology - Last 24 Hours (Table) 03/01/21 20:55 Gram Stain - Preliminary Sputum Sputum Culture - Preliminary Assessment and Plan Plan: Assessment: 1. Acute kidney injury secondary to ATN secondary to hypotension. Creatinine was 2.89 on admission and was down to 1.3 as of February 28 - 1.56 today. 2. Metabolic acidosis secondary to acute kidney injury status post bicarb drip. Now alkalotic. Bicarb level 40 today. 3. Hypomagnesemia from poor intake and diuresis. Being replaced. 4. Hyponatremia secondary to acute kidney injury. Slightly hypervolemic. Also component of hypertonicity from hyperglycemia. 5. Moderate pulmonary hypertension. 6. Diabetes mellitus. Plan: Status post IV Lasix this morning. Hold off on further diuretics at this time. Off IV fluids. Repeat chest x-ray tomorrow. Encouraged oral intake. Continue to monitor renal function and urine output. Repeat labs in the morning. Check urinalysis.
[2021-03-02] MEDS ORDERED: VANCOMYCIN IV PER PHARMACY 1 EACH MISC MISCELLANE PRN (14:27)
[2021-03-02] MEDS ORDERED: VANCOMYCIN 1,250 MG in SODIUM CHLORIDE 0.9% 250 ML IVPB ONE (15:00)
[2021-03-02 16:38] LABS: Glucose,Whole Blood 217 mg/dL (75-99)
[2021-03-02 19:55] LABS: Appearance,Urine Clear (Clear); Bilirubin,Urine Negative (Negative); Blood,Urine Negative (Negative); Color,Urine Light Yellow; Glucose,Urine (UA) Negative (Negative); Hyaline Casts,Urine 1 /lpf (0-2); Ketones,Urine Negative (Negative); Leukocyte Esterase,Urine Trace (Negative); Mucus,Urine Rare /hpf; Nitrite,Urine Negative (Negative); PH, Urine 6.5 (5.0-8.0); Protein,Urine Negative (Negative); RBC,Urine 1 /hpf (0-5); Specific Gravity,Urine 1.008 (1.001-1.035); Squamous Epithelial Cell,Urine <1 /hpf (0-4); Urobilinogen,Urine <2.0 mg/dL (<2.0); WBC,Urine 7 /hpf (0-5)
[2021-03-02] MEDS: traMADol 50 MG TAB PO PRN (20:00)
[2021-03-02] MEDS: FOLIC ACID 1 MG TAB PO SCH (20:35)
[2021-03-02] MEDS: EZETIMIBE 10 MG TAB PO SCH (20:35)
[2021-03-02] MEDS: GABAPENTIN 100 MG CAP PO SCH (20:55)
[2021-03-02 21:02] LABS: Glucose,Whole Blood 119 mg/dL (75-99)
[2021-03-03 05:38] VITALS: TEMP 98
[2021-03-03 06:49] LABS: Glucose,Whole Blood 148 mg/dL (75-99)
[2021-03-03] MEDS: METOPROLOL TARTRATE 12.5 MG TAB PO SCH (07:47)
[2021-03-03] MEDS: CYANOCOBALAMIN 500 MCG TAB PO SCH (07:47)
[2021-03-03] MEDS: APIXABAN 2.5 MG TABLET PO SCH (07:48)
[2021-03-03] MEDS: FERROUS SULFATE 325 MG TAB PO SCH (07:48)
[2021-03-03] MEDS: DOCUSATE 100 MG CAP PO SCH (07:48)
[2021-03-03] MEDS: CARBIDOPA-LEVODOPA 25-100 MG 1 EACH TAB PO SCH ×2 (07:48→11:54)
[2021-03-03] MEDS: INSULIN ASPART (NovoLOG) 100 UNIT/ML VIAL SQ SCH ×2 (07:48→11:54)
--- NOTE | 2021-03-03 08:28 | XR ---
EXAMINATION TYPE: XR chest 1V DATE OF EXAM: 03/03/2021 COMPARISON: Chest x-ray 03/01/2021, CT 04/25/2020 HISTORY: Shortness of breath TECHNIQUE: Single frontal view of the chest is obtained. FINDINGS: Patient is post median sternotomy. Aorta is dense. No evident pneumothorax or pleural effu sophia. Cardiac mediastinal silhouette is stable. Patchy basilar density, perihilar linear densities ar e again noted. Bones are unchanged. IMPRESSION: Findings are similar to prior exam. Correlate for atelectasis, difficult to exclude pneu monia versus scarring and interstitial lung disease. There is underlying emphysema.
[2021-03-03 08:41] LABS: Anisocytosis Slight; Basophils % (A) 0 %; Eosinophils # (A) 0.1 k/uL (0-0.7); Eosinophils % (A) 1 %; HCT 27.5 % (34.0-46.0); HGB 9.1 gm/dL (11.4-16.0); Hypochromasia Slight; Lymphocytes # (A) 1.1 k/uL (1.0-4.8); Lymphocytes % (A) 15 %; MCH 33.1 pg (25.0-35.0); MCHC 33.1 g/dL (31.0-37.0); MCV 99.8 fL (80.0-100.0); Macrocytosis Slight; Monocytes # (A) 0.6 k/uL (0-1.0); Monocytes % (A) 8 %; Neutrophils # (A) 5.1 k/uL (1.3-7.7); Neutrophils % (A) 72 %; Platelet Count 194 k/uL (150-450); Poikilocytosis Moderate; RBC 2.76 m/uL (3.80-5.40); RDW 17.4 % (11.5-15.5); WBC 7.1 k/uL (3.8-10.6)
[2021-03-03 10:01] LABS: African American GFR (CKD) 37.2 (60.0-200.0); Anion Gap 9.3 mmol/L (4.00-12.00); BUN/Creat Ratio 14.93 Ratio (12.00-20.00); Blood Urea Nitrogen 22.4 mg/dL (9.0-27.0); Calcium 7.5 mg/dL (8.7-10.3); Carbon Dioxide 36.7 mmol/L (21.6-31.8); Magnesium 2.4 mg/dL (1.5-2.4); Non-African American GFR(CKD) 32.1 (60.0-200.0)
[2021-03-03 10:34] VITALS: BP 96/61; PULSE 113; RESP 18
--- NOTE | 2021-03-03 10:41 | P.PN ---
Subjective Patient is seen in follow-up for acute kidney injury. Renal function stable. She is currently on room air. Has been voiding No vomiting or diarrhea. Oral intake is fair. Wants to go home. Vital signs are stable. General: The patient appeared well nourished and normally developed. HEENT: Head exam is unremarkable. LUNGS: Breath sounds decreased. HEART: Rate and Rhythm are regular. ABDOMEN: Soft, no distention. EXTREMITITES: Trace edema. Objective - Vital Signs Vital signs: Vital Signs Temp 98.0 F 03/03/21 10:00 Pulse 113 H 03/03/21 10:00 Resp 18 03/03/21 10:00 BP 96/61 03/03/21 10:00 Pulse Ox 93 L 03/03/21 10:00 Intake & Output 03/02/21 03/03/21 03/03/21 18:59 06:59 18:59 Intake Total 1030 220 Output Total 300 Balance 1030 -80 Weight 72.575 kg Intake: Intake, IV Titration 550 Amount Magnesium Sulfate-D5w Pmx 300 1 gm In Dextrose/Water 1 100ml.bag @ 100 mls/hr IVPB Q1H [facility] Rx#: [id number] Vancomycin 1,250 mg In 250 Sodium Chloride 0.9% 250 ml @ 125 mls/hr IVPB Q48H [facility] Rx#:[id number] Oral 480 220 Output: Urine 300 Other: Voiding Method Toilet Bedside Commode # Voids 1 1 # Bowel Movements 1 - Labs CBC & Chem 7: 03/03/21 05:52 03/03/21 05:52 Labs: Abnormal Lab Results - Last 24 Hours (Table) 03/02/21 03/02/21 03/02/21 Range/Units 11:26 16:25 19:17 RBC (3.80-5.40) m/uL Hgb (11.4-16.0) gm/dL Hct (34.0-46.0) % RDW (11.5-15.5) % Sodium (135-145) mmol/L Chloride (96-109) mmol/L Carbon Dioxide (21.6-31.8) mmol/L Est GFR (CKD-EPI)AfAm (60.0-200.0) Est GFR (CKD-EPI)NonAf (60.0-200.0) Glucose (70-110) mg/dL POC Glucose (mg/dL) 182 H 217 H (75-99) mg/dL Calcium (8.7-10.3) mg/dL Ur Leukocyte Esterase Trace H (Negative) Urine WBC 7 H (0-5) /hpf Urine Mucus Rare H (None) /hpf 03/02/21 03/03/21 03/03/21 Range/Units 21:00 05:52 05:52 RBC 2.76 L (3.80-5.40) m/uL Hgb 9.1 L (11.4-16.0) gm/dL Hct 27.5 L (34.0-46.0) % RDW 17.4 H (11.5-15.5) % Sodium 130 L (135-145) mmol/L Chloride 84 L (96-109) mmol/L Carbon Dioxide 36.7 H (21.6-31.8) mmol/L Est GFR (CKD-EPI)AfAm 37.2 L (60.0-200.0) Est GFR (CKD-EPI)NonAf 32.1 L (60.0-200.0) Glucose 139 H (70-110) mg/dL POC Glucose (mg/dL) 119 H (75-99) mg/dL Calcium 7.5 L (8.7-10.3) mg/dL Ur Leukocyte Esterase (Negative) Urine WBC (0-5) /hpf Urine Mucus (None) /hpf 03/03/21 Range/Units 06:48 RBC (3.80-5.40) m/uL Hgb (11.4-16.0) gm/dL Hct (34.0-46.0) % RDW (11.5-15.5) % Sodium (135-145) mmol/L Chloride (96-109) mmol/L Carbon Dioxide (21.6-31.8) mmol/L Est GFR (CKD-EPI)AfAm (60.0-200.0) Est GFR (CKD-EPI)NonAf (60.0-200.0) Glucose (70-110) mg/dL POC Glucose (mg/dL) 148 H (75-99) mg/dL Calcium (8.7-10.3) mg/dL Ur Leukocyte Esterase (Negative) Urine WBC (0-5) /hpf Urine Mucus (None) /hpf Microbiology - Last 24 Hours (Table) 03/01/21 18:09 Blood Culture Gram Stain - Preliminary Blood Blood Culture - Preliminary Staphylococcus epidermidis 03/01/21 18:09 Blood Culture - Final Blood 03/01/21 20:55 Gram Stain - Preliminary Sputum Sputum Culture - Preliminary Assessment and Plan Plan: Assessment: 1. Acute kidney injury secondary to ATN secondary to hypotension. Creatinine was 2.89 on admission and was down to 1.3 as of February 28 - stable at 1.5 today. UA benign. 2. Metabolic acidosis secondary to acute kidney injury status post bicarb drip. Now alkalotic. Bicarb level 40 03/02/21 - 36.7 today. 3. Hypomagnesemia from poor intake and diuresis. Replaced. Better. 4. Hyponatremia secondary to acute kidney injury. Also component of hypertonicity from hyperglycemia. 5. Moderate pulmonary hypertension. 6. Diabetes mellitus. Plan: Status post IV Lasix March 02. Hold off on further diuretics at this time. Off IV fluids. Encouraged oral intake. Continue to monitor renal function and urine output. Repeat labs in the morning. 1200 mL fluid restriction.
[2021-03-03] MEDS ORDERED: ALPRAZolam 0.25 MG TAB PO STA (11:06)
[2021-03-03 11:38] LABS: Glucose,Whole Blood 189 mg/dL (75-99)
--- NOTE | 2021-03-03 14:09 | P.DS ---
Providers Date of admission: 02/23/21 01:27 Expected date of discharge: 03/03/21 Attending physician: Margarita Owens MD Consults: 02/23/21 09:38 Consult Physician Routine Consulting Provider: Digna Roth Consult Reason/Comments: EDWIN Do you want consulting provider notified?: Yes Primary care physician: Aaliyah Evans MD Hospital Course: 1. Acute kidney injury on stage IIIB chronic kidney disease 2. Acute metabolic acidosis secondary to above 3. COVID-19 positive screen persistent with original positive on 02/12 4. Physical debility 5. Chronic medical problems: Underlying Parkinson's disease, underlying systolic heart failure with known EF of 45-50%, chronic atrial fibrillation on anticoagulation with Eliquis, history of coronary artery disease with history of CABG, hypertension, hyperlipidemia, peripheral vascular occlusive disease This is a 80-year-old female with complex past medical history noted below the presented to the emergency room with progressive weakness and unable to take care of herself at home. She was noted to have EDWIN on CKD IIIb as well as acute metabolic acidosis secondary to this. Nephrology was consulted and felt that patient was volume depleted and EDWIN was secondary to ATN. She was started on IV bicarb gtt for total 6 days, which corrected acidosis and improved kidney function. Patient then developed some respiratory failure requiring max of 3L of NC. CXR demonstrated pneumonia vs volume overload. Procalcitonin was negative, but BNP was elevated. Fluids were d/c'd and patient given lasix for 48 hours. With this, she was able to return to room air. Echo confirmed pHTN, but normalized EF from prior known hx of mild dysfunction. Pneumonia with bacteremia was entertained and patient was briefly placed on abx while sputum cx and blood cx were positive, but both were considered to be contaminated. On day of discharge, patient was saturating well on room air, and Cr and bicarb were stable. I spent 45 minutes coordinating this complex discharge. Assessment: Gen: awake, alert HEENT: normocephalic, atraumatic, good hearing acuity, moist mucous membranes Resp: good air exchange, breathing comfortably with no accessory muscle use, left basal crackles greater than right CVS: good distal perfusion x 4, regular rate and rhythm without murmurs GI: soft, NTTP, ND : no SPT, no CVAT, brower catheter not present MSK: Bilateral pitting edema, no clubbing Neuro: non-focal, moving all extremities Psych: cooperative, euthymic mood Patient Condition at Discharge: Fair Plan - Discharge Summary Discharge Rx Participant: Yes New Discharge Prescriptions: Continue Ezetimibe [Zetia] 10 mg PO HS Lovastatin [Mevacor] 10 mg PO HS Cyanocobalamin [Vitamin B-12] 500 mcg PO DAILY Apixaban [Eliquis] 2.5 mg PO BID Folic Acid 1 mg PO HS Docusate [Colace] 100 mg PO BID Metoprolol Tartrate [Lopressor] 12.5 mg PO BID Gabapentin [Neurontin] 200 mg PO HS #9 cap Gabapentin [Neurontin] 100 mg PO BID@0900,1700 #18 cap Ferrous Sulfate [Iron (65 MG Elemental)] 325 mg PO DAILY Epoetin Obed [Procrit] 10,000 unit SQ TH Carbidopa-Levodopa 25-100 mg [Sinemet 25-100 mg] 1 tab PO QID Linagliptin [Tradjenta] 5 mg PO DAILY traMADol HCl [Ultram] 50 mg PO QID PRN #9 tab PRN Reason: Pain Discontinued Furosemide [Lasix] 40 mg PO DAILY Discharge Medication List Ezetimibe [Zetia] 10 mg PO HS 11/20/13 [History] Lovastatin [Mevacor] 10 mg PO HS 11/20/13 [History] Apixaban [Eliquis] 2.5 mg PO BID 02/17/20 [History] Cyanocobalamin [Vitamin B-12] 500 mcg PO DAILY 02/17/20 [History] Folic Acid 1 mg PO HS 02/17/20 [History] Docusate [Colace] 100 mg PO BID 02/05/21 [History] Epoetin Obed [Procrit] 10,000 unit SQ TH 02/05/21 [History] Ferrous Sulfate [Iron (65 MG Elemental)] 325 mg PO DAILY 02/05/21 [History] Metoprolol Tartrate [Lopressor] 12.5 mg PO BID 02/05/21 [History] Carbidopa-Levodopa 25-100 mg [Sinemet 25-100 mg] 1 tab PO QID 02/11/21 [History] Linagliptin [Tradjenta] 5 mg PO DAILY 02/11/21 [History] Gabapentin [Neurontin] 100 mg PO BID@0900,1700 #18 cap 03/03/21 [Rx] Gabapentin [Neurontin] 200 mg PO HS #9 cap 03/03/21 [Rx] traMADol HCl [Ultram] 50 mg PO QID PRN #9 tab 03/03/21 [Rx] Follow up Appointment(s)/Referral(s): Aaliyah Evans MD [Primary Care Provider] - 1-2 days Patient Instructions/Handouts: Chronic Kidney Disease (DC), Malnutrition (DC) Discharge Disposition: TRANSFER TO SNF/ECF
[2021-03-03] MEDS ORDERED: VANCOMYCIN 1,250 MG in SODIUM CHLORIDE 0.9% 250 ML IVPB SCH (22:00)
--- NOTE | 2021-03-06 07:54 | CDI ---
Documentation Clarification Form Date: 03/06/21 From: Ivory Martínez Admit Date: 02/23/2021 01:27:00 AM Patient Name: Digna Navarro Visit Number: [id number] Discharge Date: 03/03/2021 02:34:00 PM ATTENTION: The Clinical Documentation Specialists (CDI) and [facility] Coding Staff appreciate your assistance in clarifying documentation. Please respond to the clarification below the line at the bottom and electronically sign. The CDI & [facility] Coding staff will review the response and follow-up if needed. Please note: Queries are made part of the Legal Health Record. If you have any questions, please contact the author of this message via ITS. Dr. Brenda Van, Per Discharge summary "Patient then developed some respiratory failure requiring max of 3L of NC. CXR demonstrated pneumonia vs volume overload." Based on this information and the findings below, is there an additional diagnosis that is clinically appropriate for this patient? History/Risk Factors: recent COVID still testing positive, metabolic acidosis, cardiomyopathy, DM Tobacco use: history of smoking Home oxygen: none Clinical Indicators: Patient then developed some respiratory failure requiring max of 3L of NC. CXR demonstrated pneumonia vs volume overload. Vital signs: on 02/23 T 97.3, P 103, R 20, BP 129/86 on 02/24 80/56 Pulse oximetry: 02/23 94/93/93, 02/24 88/90/91, 03/02 90/93/94/93, 03/03 93/94/93 Lung/Breathing assessment: SOB w activity Continuous Pulse ox O2: started on 2L changed to 3L on 02/25 Is there an additional diagnosis that is clinically appropriate for this patient? [ x ] Acute Hypoxic Respiratory Failure (pO2 <60 mm Hg or SpO2 <91% on room air) [ ] Acute Hypercapnic Respiratory Failure (pCO2 >50 and pH <7.35) [ ] Acute on Chronic Respiratory Failure [ ] Chronic Respiratory Failure [ ] Acute Respiratory Distress [ ] Acute Respiratory Insufficiency [ ] Other Diagnosis, please specify [ ] Unable to determine MTDD
--- NOTE | 2021-03-06 08:09 | CDI ---
Documentation Clarification Form Date: 03/06/21 From: Ivory Martínez Admit Date: 02/23/2021 01:27:00 AM Patient Name: Digna Navarro Visit Number: [id number] Discharge Date: 03/03/2021 02:34:00 PM ATTENTION: The Clinical Documentation Specialists (CDI) and [facility] Coding Staff appreciate your assistance in clarifying documentation. Please respond to the clarification below the line at the bottom and electronically sign. The CDI & [facility] Coding staff will review the response and follow-up if needed. Please note: Queries are made part of the Legal Health Record. If you have any questions, please contact the author of this message via ITS. Dr. Brenda Van, Your patient has the documented diagnosis of unspecified systolic CHF in the H&P. Additional information regarding the [type, acuity] of CHF is requested. History/Risk Factors: recent COVID still testing positive, metabolic acidosis, cardiomyopathy, DM Clinical Indicators: 03/01 Bilateral pitting edema, left basal crackles greater that right. VS/Pulse OX: Vital signs: on 02/23 T 97.3, P 103, R 20, BP 129/86 on 02/24 80/56, 03/01 T 98.0, P 111, R 17 BP 1347/79 Echocardiogram Results: Overall left ventricular systolic function is normal with, an EF between 60- 65 %. Chest X Ray: 02/22 There is some minimal left lower lobe infiltrate. Treatment: 03/01 IV Lasix 40 mg daily, 03/02 IV Lasix 40 mg once, 03/02 IV Lasix 40 mg BID In your professional opinion, can you please clarify the [acuity and type] of CHF if known? [ ] Acute Systolic Heart Failure (reduced EF) [ ] Chronic Systolic Heart Failure (reduced EF) [ ] Acute on Chronic Systolic Heart Failure (reduced EF) [ x] Other, please specify: Acute Diastolic Heart Failure [ ] Unable to determine MTDD
--- NOTE | 2021-03-06 08:23 | CDI ---
Documentation Clarification Form Date: 03/06/21 From: Ivory Martínez Admit Date: 02/23/2021 01:27:00 AM Patient Name: Digna Navarro Visit Number: [id number] Discharge Date: 03/03/2021 02:34:00 PM ATTENTION: The Clinical Documentation Specialists (CDI) and [facility] Coding Staff appreciate your assistance in clarifying documentation. Please respond to the clarification below the line at the bottom and electronically sign. The CDI & [facility] Coding staff will review the response and follow-up if needed. Please note: Queries are made part of the Legal Health Record. If you have any questions, please contact the author of this message via ITS. Dr. Margarita Owens, Recent hx of COVID pneumonia is documented in 02/28 PN. Additional clarification regarding the type of pneumonia is requested. History/Risk Factors: recent COVID still testing positive Clinical Indicators: H&P-CTA bilateral, no rhonchi, no rales , no accessory muscle use. -Patient then developed some respiratory failure requiring max of 3L of NC. CXR demonstrated pneumonia vs volume overload. WBC/Left shift: 3.3/2.49 X-ray: 02/22 There is some minimal left lower lobe infiltrate. 03/01 Worsened patchy opacity in the left lower lobe concerning for pneumonia. 03/03 Findings are similar to prior exam. Correlate for atelectasis, difficult to exclude pneumonia versus scarring and interstitial lung disease. There is underlying emphysema. Antibiotics: Rocephin IV, IV Vanco O2 started on 2L changed to 3L on 02/25 Please clarify the type of pneumonia, if known: [ ] COVID pneumonia [ ] Gram Negative Bacterial Pneumonia [ ] Bacterial Pneumonia Due to Strep [ ] Bacterial Pneumonia Due to Staph [ ] Bacterial Pneumonia Due to E. Coli [ ] Other bacteria (please specify) [ ] Unable to determine No pneumonia present, that finding on CXR represented volume overload superimposed on atelectasis. MTDD
== END 2021-03-03 14:34 | DRG 682 ==
LOC: EC 21:38 → 4SSUR 02-23 01:27
PROVIDERS: ADMIT Internal Medicine; ATTEND Internal Medicine
DX: N17.0 Acute kidney failure with tubular necrosis (principal); U07.1 COVID-19; J96.01 Acute respiratory failure with hypoxia; I50.31 Acute diastolic (congestive) heart failure; I13.0 Hypertensive heart and chronic kidney disease with heart failure and stage 1 through stage 4 chronic kidney disease, or unspecified chronic kidney disease; E87.1 Hypo-osmolality and hyponatremia; E87.4 Mixed disorder of acid-base balance; I48.20 Chronic atrial fibrillation, unspecified; I42.9 Cardiomyopathy, unspecified; E11.649 Type 2 diabetes mellitus with hypoglycemia without coma; I95.9 Hypotension, unspecified; I27.20 Pulmonary hypertension, unspecified; E11.22 Type 2 diabetes mellitus with diabetic chronic kidney disease; G20 Parkinson's disease; E11.51 Type 2 diabetes mellitus with diabetic peripheral angiopathy without gangrene; N18.32 Chronic kidney disease, stage 3b; E11.65 Type 2 diabetes mellitus with hyperglycemia; J44.9 Chronic obstructive pulmonary disease, unspecified; R62.7 Adult failure to thrive; Z68.29 Body mass index [BMI] 29.0-29.9, adult; E86.0 Dehydration; E83.52 Hypercalcemia; G47.33 Obstructive sleep apnea (adult) (pediatric); I07.1 Rheumatic tricuspid insufficiency; I25.10 Atherosclerotic heart disease of native coronary artery without angina pectoris; R53.81 Other malaise; E83.42 Hypomagnesemia; R13.10 Dysphagia, unspecified; T44.7X5A Adverse effect of beta-adrenoreceptor antagonists, initial encounter; E78.5 Hyperlipidemia, unspecified; I25.2 Old myocardial infarction; M79.671 Pain in right foot; M79.672 Pain in left foot; Z79.01 Long term (current) use of anticoagulants; Z79.84 Long term (current) use of oral hypoglycemic drugs; Z79.899 Other long term (current) drug therapy; Z87.39 Personal history of other diseases of the musculoskeletal system and connective tissue; Z95.1 Presence of aortocoronary bypass graft; Z90.710 Acquired absence of both cervix and uterus; Z87.42 Personal history of other diseases of the female genital tract; Z87.891 Personal history of nicotine dependence; Z87.01 Personal history of pneumonia (recurrent); Z90.49 Acquired absence of other specified parts of digestive tract; Z87.19 Personal history of other diseases of the digestive system; Z90.89 Acquired absence of other organs; Z87.440 Personal history of urinary (tract) infections; Z98.890 Other specified postprocedural states; Z71.3 Dietary counseling and surveillance; Z88.4 Allergy status to anesthetic agent; Z88.5 Allergy status to narcotic agent; Z88.8 Allergy status to other drugs, medicaments and biological substances; Z82.49 Family history of ischemic heart disease and other diseases of the circulatory system; Z82.5 Family history of asthma and other chronic lower respiratory diseases; Z80.9 Family history of malignant neoplasm, unspecified
CPT/HCPCS: 36415; 71045; 80048; 80053; 81001; 83036; 83605; 83615; 83735; 83880; 84100; 84145; 85025; 85027; 85379; 85610; 85730; 86140; 86334; 86335; 87040; 87070; 87077; 87186; 87205; 87635; 93005; 93306; 94760; 96361; 96374; 96375; 99285

== ENCOUNTER 2021-03-06 17:22 | Emergency (ER) | payer MEDICARE, OTHER ==
[2021-03-06 17:51] VITALS: TEMP 98.8
--- NOTE | 2021-03-06 19:07 | ED ---
General Adult HPI - General Chief complaint: Recheck/Abnormal Lab/Rx Stated complaint: low hemoglobin Time Seen by Provider: 03/06/21 17:29 Source: patient, EMS Mode of arrival: EMS - History of Present Illness Initial comments: Dictation was produced using [employer] dictation software. please excuse any grammatical, word or spelling errors. Chief Complaint: Patient is an 81-year-old female recently discharged presents to the ER for low hemoglobin History of Present Illness: Patient is an 81-year-old female she presents to us for the shelter per she is brought in by EMS for low hemoglobin. Patient allegedly had a hemoglobin of 6.6. Patient denies any issues currently. She was just discharged from the hospital 3 days ago. She was admitted for acute kidney injury, metabolic acidosis coronavirus. Her blood work today and had a hemoglobin of 6.6. Patient has an abdominal pain. Denies any shortness of breath. The ROS documented in this emergency department record has been reviewed and confirmed by me. Those systems with pertinent positive or negative responses have been documented in the HPI. All other systems are other negative and/or noncontributory. PHYSICAL EXAM: General Impression: Alert and oriented x3, not in acute distress HEENT: Normocephalic atraumatic, extra-ocular movements intact, pupils equal and reactive to light bilaterally, mucous membranes moist. Cardiovascular: Heart regular rate and rhythm Chest: Able to complete full sentences, no retractions, no tachypnea Abdomen: abdomen soft, non-tender, non-distended, no organomegaly Musculoskeletal: Pulses present and equal in all extremities, no peripheral edema Motor: no focal deficits noted Neurological: CN II-XII grossly intact, no focal motor or sensory deficits noted Skin: Intact with no visualized rashes Psych: Normal affect and mood ED course: 81-year-old female sent to the emergency Department from shelter for abnormal labs. She probably had a hemoglobin of 6.6 and resulted at 5:15 and. Patient stable at the bedside. She has normal vitals. Vital signs upon arrival are within acceptable limits. EKG interpretation: Ventricular rate 75, normal sinus rhythm, IL interval 128, QRS 80, QTc 437. No IL prolongation, no QTC prolongation, no ST or T-wave changes noted. EKG compared to 02/22/2021 showing no changes. Overall, this EKG is unremarkable Labs were obtained. Patient hemoglobin 8.5. Rest of CBC unremarkable. Coag panel is negative. Serum is 127. Patient is history of hyponatremia. Patient given some fluids. She'll be discharge back to shelter facility. Patient seen 1106.6 from previous labs likely a lab error. So, pleasant negative. Patient observed in emergency department for approximately 3 hours and 30 minutes. She is reevaluated at bedside at 9 PM found to be in stable medical condition. Patient discharge. - Related Data Home Medications Medication Instructions Recorded Confirmed Ezetimibe [Zetia] 10 mg PO HS@2100 11/20/13 03/06/21 Lovastatin [Mevacor] 10 mg PO HS@2100 11/20/13 03/06/21 Apixaban [Eliquis] 2.5 mg PO BID@0800,1700 02/17/20 03/06/21 Cyanocobalamin [Vitamin B-12] 500 mcg PO DAILY@1700 02/17/20 03/06/21 Folic Acid 1 mg PO DAILY@1700 02/17/20 03/06/21 Docusate [Colace] 100 mg PO BID@0800,1700 02/05/21 03/06/21 Epoetin Obed [Procrit] 10,000 unit SQ TH@0800 02/05/21 03/06/21 Ferrous Sulfate [Iron (65 MG 325 mg PO DAILY@1700 02/05/21 03/06/21 Elemental)] Metoprolol Tartrate [Lopressor] 12.5 mg PO BID@0800,1700 02/05/21 03/06/21 Carbidopa-Levodopa 25-100 mg 1 tab PO QID 02/11/21 03/06/21 [Sinemet 25-100 mg] Linagliptin [Tradjenta] 5 mg PO DAILY@0800 02/11/21 03/06/21 Gabapentin [Neurontin] 200 mg PO BID@0800,1700 03/06/21 03/06/21 LORazepam [Ativan] 0.5 mg PO BID PRN 03/06/21 03/06/21 Magnesium Hydroxide [Milk of 7,200 mg PO DAILY PRN 03/06/21 03/06/21 Magnesia Concentrate] Na Phos,M-B/Na Phos,Di-Ba [Fleet 133 ml RECTAL DAILY PRN 03/06/21 03/06/21 Adult] bisacodyL [Dulcolax] 10 mg RECTAL DAILY PRN 03/06/21 03/06/21 Previous Rx's Medication Instructions Recorded traMADol HCl [Ultram] 50 mg PO QID PRN #9 tab 03/03/21 Allergies Allergy/AdvReac Type Severity Reaction Status Date / Time albuterol [From DuoNeb] AdvReac Nausea Verified 03/06/21 17:51 cortisone AdvReac PAIN Verified 03/06/21 17:51 hydrocodone AdvReac Nausea Verified 03/06/21 17:51 ipratropium [From DuoNeb] AdvReac Nausea Verified 03/06/21 17:51 procaine HCl [From Novocain] AdvReac pain Verified 03/06/21 17:51 allergy medicines AdvReac "dries me Uncoded 03/06/21 17:51 out, bloody noses,generalized pain" Review of Systems ROS Statement: Those systems with pertinent positive or pertinent negative responses have been documented in the HPI. ROS Other: All systems not noted in ROS Statement are negative. Past Medical History Past Medical History: COPD, Diabetes Mellitus, Hyperlipidemia, Hypertension, Myocardial Infarction (AL), Sleep Apnea/CPAP/BIPAP Additional Past Medical History / Comment(s): tremors,NO left arm blood draw or blood pressure(vessel harvested for CABG), blockages in angelica legs, Coonstipation, gout, PAD Last Myocardial Infarction Date:: 1999 History of Any Multi-Drug Resistant Organisms: None Reported Past Surgical History: Appendectomy, Coronary Bypass/CABG, Heart Catheterization, Hysterectomy, Tonsillectomy Additional Past Surgical History / Comment(s): angiogram. Right neck lymphnode removal Past Anesthesia/Blood Transfusion Reactions: No Reported Reaction Past Psychological History: No Psychological Hx Reported Smoking Status: Former smoker Past Alcohol Use History: None Reported Past Drug Use History: None Reported - Past Family History Brother(s) Family Medical History: Cancer Son(s) Family Medical History: Cancer Sister(s) Family Medical History: Cancer Mother Family Medical History: COPD, Myocardial Infarction (AL) Additional Family Medical History / Comment(s): mother of AL-pt cannot recall at what age. Course Vital Signs 03/06/21 03/06/21 17:40 20:30 Temperature 98.8 F Pulse Rate 74 85 Respiratory 18 20 Rate Blood Pressure 127/60 122/76 O2 Sat by Pulse 97 97 Oximetry Medical Decision Making - Lab Data Result diagrams: 03/06/21 18:50 03/06/21 18:50 Lab Results 03/06/21 03/06/21 03/06/21 Range/Units 18:35 18:50 18:50 WBC 10.0 (3.8-10.6) k/uL RBC 2.66 L (3.80-5.40) m/uL Hgb 8.5 L (11.4-16.0) gm/dL Hct 25.5 L (34.0-46.0) % MCV 96.1 (80.0-100.0) fL MCH 31.9 (25.0-35.0) pg MCHC 33.2 (31.0-37.0) g/dL RDW 18.1 H (11.5-15.5) % Plt Count 192 (150-450) k/uL MPV 7.3 Neutrophils % 74 % Lymphocytes % 14 % Monocytes % 7 % Eosinophils % 3 % Basophils % 0 % Neutrophils # 7.4 (1.3-7.7) k/uL Lymphocytes # 1.4 (1.0-4.8) k/uL Monocytes # 0.7 (0-1.0) k/uL Eosinophils # 0.3 (0-0.7) k/uL Basophils # 0.0 (0-0.2) k/uL Poikilocytosis Moderate Anisocytosis Slight Macrocytosis Slight PT 10.4 (9.0-12.0) sec INR 1.0 (<1.2) APTT 25.6 (22.0-30.0) sec Sodium (137-145) mmol/L Potassium (3.5-5.1) mmol/L Chloride (98-107) mmol/L Carbon Dioxide (22-30) mmol/L Anion Gap mmol/L BUN (7-17) mg/dL Creatinine (0.52-1.04) mg/dL Est GFR (CKD-EPI)AfAm (>60 ml/min/1.73 sqM) Est GFR (CKD-EPI)NonAf (>60 ml/min/1.73 sqM) Glucose (74-99) mg/dL Calcium (8.4-10.2) mg/dL Stool Occult Blood (Negative) Blood Type A Positive Blood Type Recheck A Pos Bld Type Recheck Status No Antibody Screen NEGATIVE Spec Expiration Date 03/09/2021 - 233403/06/21 03/06/21 Range/Units 18:50 20:24 WBC (3.8-10.6) k/uL RBC (3.80-5.40) m/uL Hgb (11.4-16.0) gm/dL Hct (34.0-46.0) % MCV (80.0-100.0) fL MCH (25.0-35.0) pg MCHC (31.0-37.0) g/dL RDW (11.5-15.5) % Plt Count (150-450) k/uL MPV Neutrophils % % Lymphocytes % % Monocytes % % Eosinophils % % Basophils % % Neutrophils # (1.3-7.7) k/uL Lymphocytes # (1.0-4.8) k/uL Monocytes # (0-1.0) k/uL Eosinophils # (0-0.7) k/uL Basophils # (0-0.2) k/uL Poikilocytosis Anisocytosis Macrocytosis PT (9.0-12.0) sec INR (<1.2) APTT (22.0-30.0) sec Sodium 127 L (137-145) mmol/L Potassium 5.5 H (3.5-5.1) mmol/L Chloride 88 L (98-107) mmol/L Carbon Dioxide 33 H (22-30) mmol/L Anion Gap 6 mmol/L BUN 33 H (7-17) mg/dL Creatinine 1.75 H (0.52-1.04) mg/dL Est GFR (CKD-EPI)AfAm 31 (>60 ml/min/1.73 sqM) Est GFR (CKD-EPI)NonAf 27 (>60 ml/min/1.73 sqM) Glucose 116 H (74-99) mg/dL Calcium 7.2 L (8.4-10.2) mg/dL Stool Occult Blood Negative (Negative) Blood Type Blood Type Recheck Bld Type Recheck Status Antibody Screen Spec Expiration Date Disposition Clinical Impression: Abnormal laboratory test result Disposition: HOME SELF-CARE Condition: Good Instructions (If sedation given, give patient instructions): Anemia (ED) Is patient prescribed a controlled substance at d/c from ED?: No Referrals: Abel Mathews DO [Primary Care Provider] - 1-2 days
[2021-03-06 19:12] LABS: Partial Thromboplastin Time 25.6 sec (22.0-30.0); Prothrombin Time 10.4 sec (9.0-12.0)
[2021-03-06 19:18] LABS: Anisocytosis Slight; Basophils % (A) 0 %; Eosinophils # (A) 0.3 k/uL (0-0.7); Eosinophils % (A) 3 %; HCT 25.5 % (34.0-46.0); HGB 8.5 gm/dL (11.4-16.0); Lymphocytes # (A) 1.4 k/uL (1.0-4.8); Lymphocytes % (A) 14 %; MCH 31.9 pg (25.0-35.0); MCHC 33.2 g/dL (31.0-37.0); MCV 96.1 fL (80.0-100.0); Macrocytosis Slight; Mean Platelet Volume 7.3; Monocytes # (A) 0.7 k/uL (0-1.0); Monocytes % (A) 7 %; Neutrophils # (A) 7.4 k/uL (1.3-7.7); Neutrophils % (A) 74 %; Platelet Count 192 k/uL (150-450); Poikilocytosis Moderate; RBC 2.66 m/uL (3.80-5.40); RDW 18.1 % (11.5-15.5)
[2021-03-06 19:19] LABS: Calcium 7.2 mg/dL (8.4-10.2); Potassium 5.5 mmol/L (3.5-5.1)
[2021-03-06 20:31] VITALS: BP 122/76; PULSE 85; RESP 20
== END 2021-03-06 22:43 | disposition home or self-care (01) ==
LOC: EC 17:22
DX: R79.9 Abnormal finding of blood chemistry, unspecified (principal); E11.9 Type 2 diabetes mellitus without complications; I10 Essential (primary) hypertension; I25.2 Old myocardial infarction; J44.9 Chronic obstructive pulmonary disease, unspecified; E78.5 Hyperlipidemia, unspecified; Z87.891 Personal history of nicotine dependence; Z79.01 Long term (current) use of anticoagulants; Z79.899 Other long term (current) drug therapy
CPT/HCPCS: 36415; 80048; 82272; 85025; 85610; 85730; 86850; 86900; 86901; 93005; 99284

== ENCOUNTER 2021-03-10 06:40 | Inpatient (IN) | payer MEDICARE, OTHER ==
[2021-03-10] MEDS ORDERED: PANTOPRAZOLE 40 MG/10 ML VIAL IVP STA (07:20)
--- NOTE | 2021-03-10 07:23 | ED ---
General Adult HPI - General Chief complaint: Recheck/Abnormal Lab/Rx Stated complaint: Low Hemoglobin Time Seen by Provider: 03/10/21 07:01 Source: patient, EMS, RN notes reviewed, old records reviewed Mode of arrival: EMS Limitations: no limitations - History of Present Illness Initial comments: Patient is a pleasant 81-year-old female presenting to the emergency department for anemia. Patient is from [facility]. Patient had reported hemoglobin of 6.4. Patient states she feels fine and has no complaints otherwise. Patient states she was here yesterday with similar problems. Chart reviewed. Patient denies any bleeding. No fatigue. No exertional dyspnea. - Related Data Home Medications Medication Instructions Recorded Confirmed Ezetimibe [Zetia] 10 mg PO HS@2100 11/20/13 03/06/21 Lovastatin [Mevacor] 10 mg PO HS@2100 11/20/13 03/06/21 Apixaban [Eliquis] 2.5 mg PO BID@0800,1700 02/17/20 03/06/21 Cyanocobalamin [Vitamin B-12] 500 mcg PO DAILY@1700 02/17/20 03/06/21 Folic Acid 1 mg PO DAILY@1700 02/17/20 03/06/21 Docusate [Colace] 100 mg PO BID@0800,1700 02/05/21 03/06/21 Epoetin Obed [Procrit] 10,000 unit SQ TH@0800 02/05/21 03/06/21 Ferrous Sulfate [Iron (65 MG 325 mg PO DAILY@1700 02/05/21 03/06/21 Elemental)] Metoprolol Tartrate [Lopressor] 12.5 mg PO BID@0800,1700 02/05/21 03/06/21 Carbidopa-Levodopa 25-100 mg 1 tab PO QID 02/11/21 03/06/21 [Sinemet 25-100 mg] Linagliptin [Tradjenta] 5 mg PO DAILY@0800 02/11/21 03/06/21 Gabapentin [Neurontin] 200 mg PO BID@0800,1700 03/06/21 03/06/21 LORazepam [Ativan] 0.5 mg PO BID PRN 03/06/21 03/06/21 Magnesium Hydroxide [Milk of 7,200 mg PO DAILY PRN 03/06/21 03/06/21 Magnesia Concentrate] Na Phos,M-B/Na Phos,Di-Ba [Fleet 133 ml RECTAL DAILY PRN 03/06/21 03/06/21 Adult] bisacodyL [Dulcolax] 10 mg RECTAL DAILY PRN 03/06/21 03/06/21 Previous Rx's Medication Instructions Recorded traMADol HCl [Ultram] 50 mg PO QID PRN #9 tab 03/03/21 Allergies Allergy/AdvReac Type Severity Reaction Status Date / Time albuterol [From DuoNeb] AdvReac Nausea Verified 03/10/21 06:46 cortisone AdvReac PAIN Verified 03/10/21 06:46 hydrocodone AdvReac Nausea Verified 03/10/21 06:46 ipratropium [From DuoNeb] AdvReac Nausea Verified 03/10/21 06:46 procaine HCl [From Novocain] AdvReac pain Verified 03/10/21 06:46 allergy medicines AdvReac "dries me Uncoded 03/10/21 06:46 out, bloody noses,generalized pain" Review of Systems ROS Statement: Those systems with pertinent positive or pertinent negative responses have been documented in the HPI. ROS Other: All systems not noted in ROS Statement are negative. Constitutional: Denies: fever Eyes: Denies: eye pain ENT: Denies: ear pain Respiratory: Denies: cough Cardiovascular: Denies: chest pain Endocrine: Denies: fatigue Gastrointestinal: Denies: abdominal pain, hematemesis, melena, hematochezia Genitourinary: Denies: dysuria Musculoskeletal: Denies: back pain Skin: Denies: rash Neurological: Denies: weakness Past Medical History Past Medical History: COPD, Diabetes Mellitus, Hyperlipidemia, Hypertension, Myocardial Infarction ([place]), Sleep Apnea/CPAP/BIPAP Additional Past Medical History / Comment(s): tremors,NO left arm blood draw or blood pressure(vessel harvested for CABG), blockages in angelica legs, Coonstipation, gout, PAD Last Myocardial Infarction Date:: 1999 History of Any Multi-Drug Resistant Organisms: None Reported Past Surgical History: Appendectomy, Coronary Bypass/CABG, Heart Catheterization, Hysterectomy, Tonsillectomy Additional Past Surgical History / Comment(s): angiogram. Right neck lymphnode removal Past Anesthesia/Blood Transfusion Reactions: No Reported Reaction Past Psychological History: No Psychological Hx Reported Smoking Status: Former smoker Past Alcohol Use History: None Reported Past Drug Use History: None Reported - Past Family History Brother(s) Family Medical History: Cancer Son(s) Family Medical History: Cancer Sister(s) Family Medical History: Cancer Mother Family Medical History: COPD, Myocardial Infarction ([place]) Additional Family Medical History / Comment(s): mother of [place]-pt cannot recall at what age. General Exam Limitations: no limitations General appearance: alert, in no apparent distress Head exam: Present: normocephalic Eye exam: Present: normal appearance Neck exam: Present: normal inspection Respiratory exam: Present: normal lung sounds bilaterally Cardiovascular Exam: Present: regular rate, normal rhythm GI/Abdominal exam: Present: soft. Absent: tenderness Rectal exam: Present: normal inspection. Absent: black stool, bloody stool Extremities exam: Present: normal inspection Neurological exam: Present: alert Psychiatric exam: Present: normal affect, normal mood Skin exam: Present: normal color Course Vital Signs 03/10/21 03/10/21 06:42 06:53 Temperature 99.2 F Pulse Rate 84 Respiratory 18 18 Rate Blood Pressure 130/53 O2 Sat by Pulse 100 Oximetry Medical Decision Making - Medical Decision Making Patient reevaluated and updated. Case discussed with Dr. Jim, who will admit for Dr. Mathews. He does request consult with GI and hematology. - Lab Data Result diagrams: 03/10/21 07:23 03/10/21 07:23 Lab Results 03/10/21 03/10/21 03/10/21 Range/Units 07:23 07:23 07:23 WBC 7.1 (3.8-10.6) k/uL RBC 2.08 L (3.80-5.40) m/uL Hgb 6.9 L* D (11.4-16.0) gm/dL Hct 21.3 L (34.0-46.0) % MCV 102.6 H D (80.0-100.0) fL MCH 33.4 (25.0-35.0) pg MCHC 32.5 (31.0-37.0) g/dL RDW 19.4 H (11.5-15.5) % Plt Count 209 (150-450) k/uL MPV 7.5 Neutrophils % 69 % Lymphocytes % 14 % Monocytes % 8 % Eosinophils % 7 % Basophils % 0 % Neutrophils # 4.9 (1.3-7.7) k/uL Lymphocytes # 1.0 (1.0-4.8) k/uL Monocytes # 0.6 (0-1.0) k/uL Eosinophils # 0.5 (0-0.7) k/uL Basophils # 0.0 (0-0.2) k/uL Poikilocytosis Slight Anisocytosis Slight Macrocytosis Moderate PT 10.7 (9.0-12.0) sec INR 1.0 (<1.2) APTT 25.4 (22.0-30.0) sec Sodium 129 L (137-145) mmol/L Potassium 5.6 H (3.5-5.1) mmol/L Chloride 98 (98-107) mmol/L Carbon Dioxide 26 (22-30) mmol/L Anion Gap 5 mmol/L BUN 24 H (7-17) mg/dL Creatinine 1.73 H (0.52-1.04) mg/dL Est GFR (CKD-EPI)AfAm 31 (>60 ml/min/1.73 sqM) Est GFR (CKD-EPI)NonAf 27 (>60 ml/min/1.73 sqM) Glucose 171 H (74-99) mg/dL Calcium 8.0 L (8.4-10.2) mg/dL Total Bilirubin 0.3 (0.2-1.3) mg/dL AST 29 (14-36) U/L ALT 8 (4-34) U/L Alkaline Phosphatase 86 (38-126) U/L Total Protein 6.2 L (6.3-8.2) g/dL Albumin 2.7 L (3.5-5.0) g/dL Stool Occult Blood (Negative) 03/10/21 Range/Units 07:23 WBC (3.8-10.6) k/uL RBC (3.80-5.40) m/uL Hgb (11.4-16.0) gm/dL Hct (34.0-46.0) % MCV (80.0-100.0) fL MCH (25.0-35.0) pg MCHC (31.0-37.0) g/dL RDW (11.5-15.5) % Plt Count (150-450) k/uL MPV Neutrophils % % Lymphocytes % % Monocytes % % Eosinophils % % Basophils % % Neutrophils # (1.3-7.7) k/uL Lymphocytes # (1.0-4.8) k/uL Monocytes # (0-1.0) k/uL Eosinophils # (0-0.7) k/uL Basophils # (0-0.2) k/uL Poikilocytosis Anisocytosis Macrocytosis PT (9.0-12.0) sec INR (<1.2) APTT (22.0-30.0) sec Sodium (137-145) mmol/L Potassium (3.5-5.1) mmol/L Chloride (98-107) mmol/L Carbon Dioxide (22-30) mmol/L Anion Gap mmol/L BUN (7-17) mg/dL Creatinine (0.52-1.04) mg/dL Est GFR (CKD-EPI)AfAm (>60 ml/min/1.73 sqM) Est GFR (CKD-EPI)NonAf (>60 ml/min/1.73 sqM) Glucose (74-99) mg/dL Calcium (8.4-10.2) mg/dL Total Bilirubin (0.2-1.3) mg/dL AST (14-36) U/L ALT (4-34) U/L Alkaline Phosphatase (38-126) U/L Total Protein (6.3-8.2) g/dL Albumin (3.5-5.0) g/dL Stool Occult Blood Negative (Negative) Disposition Clinical Impression: Anemia Disposition: ADMITTED IP TO THIS HOSP Is patient prescribed a controlled substance at d/c from ED?: No Referrals: Abel Mathews DO [Primary Care Provider] - 1-2 days Decision Time: 08:12
[2021-03-10 07:47] LABS: Partial Thromboplastin Time 25.4 sec (22.0-30.0); Prothrombin Time 10.7 sec (9.0-12.0)
[2021-03-10 07:50] LABS: Albumin 2.7 g/dL (3.5-5.0); Potassium 5.6 mmol/L (3.5-5.1); Total Bilirubin 0.3 mg/dL (0.2-1.3); Total Protein 6.2 g/dL (6.3-8.2)
[2021-03-10] MEDS ORDERED: SODIUM CHLORIDE 0.9% 1,000 ML IV STA (07:52)
[2021-03-10 07:59] LABS: Anisocytosis Slight; Basophils % (A) 0 %; Eosinophils # (A) 0.5 k/uL (0-0.7); Eosinophils % (A) 7 %; HCT 21.3 % (34.0-46.0); Lymphocytes % (A) 14 %; MCH 33.4 pg (25.0-35.0); MCHC 32.5 g/dL (31.0-37.0); Macrocytosis Moderate; Mean Platelet Volume 7.5; Monocytes # (A) 0.6 k/uL (0-1.0); Monocytes % (A) 8 %; Neutrophils # (A) 4.9 k/uL (1.3-7.7); Neutrophils % (A) 69 %; Platelet Count 209 k/uL (150-450); Poikilocytosis Slight; RBC 2.08 m/uL (3.80-5.40); RDW 19.4 % (11.5-15.5); WBC 7.1 k/uL (3.8-10.6)
[2021-03-10 08:02] LABS: HGB 6.9 gm/dL (11.4-16.0); MCV 102.6 fL (80.0-100.0)
[2021-03-10] MEDS ORDERED: NALOXONE 0.4 MG/ML 1 ML VIAL IV PRN (08:13)
[2021-03-10] MEDS ORDERED: LORazepam 0.5 MG TAB PO PRN (10:36)
--- NOTE | 2021-03-10 14:47 | P.CONS ---
History of Present Illness - Reason for Consult Consult date: 03/10/21 anemia Requesting physician: David Jim - Chief Complaint abdominal pain, abnormal labs - History of Present Illness This is a 81-year-old female who was brought in for medical monitoring having abnormal labs. Apparently the patient had labs drawn and had a hemoglobin of 6.4 and was sent emergency department for further evaluation. Admission lab work revealed a hemoglobin of 6.9, patient is currently receiving 1 unit of PRBC transfusion. Strength relative was consulted for anemia. The patient has multiple comorbidities including COPD, diabetes mellitus, hyperlipidemia, hypertension, myocardial infarction, sleep apnea, chronic kidney disease, coronary artery disease status post CABG, peripheral arterial disease, and anemia. The patient states she was recently diagnosed with COVID-19 however her Crohn virus PCR was not detected. Patient also was negative for occult blood in her stool. She denies any knowledge of any blood in her stool, states that it is always start due to her iron. She denies any previous blood transfusion. She states she does not follow with a automotive porter. Looking back it looks like she had a hemoglobin of 6.6 on 1126, for does not appear that she received a blood transfusion had a repeat later that day at 8.5. Looks like patient's hemoglobin usually runs around 9 or 10. When asked the patient denies any abdominal pain but states that she has pain all over and is referring to her vaginal area. Patient does have a urinary tampon in place. She denies any previous HET and states her last colonoscopy was many years ago which she states was normal. No records found on colonoscopy. Review of Systems REVIEW OF SYSTEMS: CARDIOPULMONARY: No chest pain or shortness of breath. Gastrointestinal: Abdominal pain. No nausea or vomiting. No hematemesis, coffee-ground emesis. No rectal bleeding, or melena. GENITOURINARY: No dysuria or hematuria. MUSCULOSKELETAL: Reports normal range of motion., Joint pain. SKIN: No rashes. No jaundice. ENDOCRINE: No chills, fevers. No excessive weight gain or loss. No polydipsia or polyuria. PSYCHIATRIC: Unremarkable. NEUROLOGY: No change in mental status. Denies dizziness, headache. ENT: Vision unremarkable. CONSTITUTIONAL: No recent weight loss. No fever, chills, night sweats. Patient reports pain all over. Past Medical History Past Medical History: COPD, Diabetes Mellitus, Hyperlipidemia, Hypertension, Myocardial Infarction ([place]), Sleep Apnea/CPAP/BIPAP Additional Past Medical History / Comment(s): tremors,NO left arm blood draw or blood pressure(vessel harvested for CABG), blockages in angelica legs, Coonstipation, gout, PAD Last Myocardial Infarction Date:: 1999 History of Any Multi-Drug Resistant Organisms: None Reported Past Surgical History: Appendectomy, Coronary Bypass/CABG, Heart C atheterization, Hysterectomy, Tonsillectomy Additional Past Surgical History / Comment(s): angiogram. Right neck lymphnode removal Past Anesthesia/Blood Transfusion Reactions: No Reported Reaction Past Psychological History: No Psychological Hx Reported Smoking Status: Former smoker Past Alcohol Use History: None Reported Past Drug Use History: None Reported - Past Family History Brother(s) Family Medical History: Cancer Son(s) Family Medical History: Cancer Sister(s) Family Medical History: Cancer Mother Family Medical History: COPD, Myocardial Infarction ([place]) Additional Family Medical History / Comment(s): mother of [place]-pt cannot recall at what age. Medications and Allergies Home Medications Medication Instructions Recorded Confirmed Type Ezetimibe [Zetia] 10 mg PO HS@2100 11/20/13 03/10/21 History Lovastatin [Mevacor] 10 mg PO HS@2100 11/20/13 03/10/21 History Apixaban [Eliquis] 2.5 mg PO BID@0800,1700 02/17/20 03/10/21 History Cyanocobalamin [Vitamin B-12] 500 mcg PO DAILY@1700 02/17/20 03/10/21 History Folic Acid 1 mg PO DAILY@1700 02/17/20 03/10/21 History Docusate [Colace] 100 mg PO BID@0800,1700 02/05/21 03/10/21 History Epoetin Obed [Procrit] 10,000 unit SQ TH@0800 02/05/21 03/10/21 History Ferrous Sulfate [Iron (65 MG 325 mg PO DAILY@1700 02/05/21 03/10/21 History Elemental)] Metoprolol Tartrate [Lopressor] 12.5 mg PO BID@0800,1700 02/05/21 03/10/21 History Carbidopa-Levodopa 25-100 mg 1 tab PO QID@08,12,17,02/11/21 03/10/21 History [Sinemet 25-100 mg] Linagliptin [Tradjenta] 5 mg PO DAILY@0800 02/11/21 03/10/21 History traMADol HCl [Ultram] 50 mg PO QID PRN #9 tab 03/03/21 03/10/21 Rx Gabapentin [Neurontin] 200 mg PO BID@0800,1700 03/06/21 03/10/21 History LORazepam [Ativan] 0.5 mg PO BID PRN 03/06/21 03/10/21 History Magnesium Hydroxide [Milk of 7,200 mg PO DAILY PRN 03/06/21 03/10/21 History Magnesia Concentrate] Na Phos,M-B/Na Phos,Di-Ba [Fleet 133 ml RECTAL DAILY PRN 03/06/21 03/10/21 History Adult] bisacodyL [Dulcolax] 10 mg RECTAL DAILY PRN 03/06/21 03/10/21 History Allergies Allergy/AdvReac Type Severity Reaction Status Date / Time albuterol [From DuoNeb] AdvReac Nausea Verified 03/10/21 08:19 cortisone AdvReac PAIN Verified 03/10/21 08:19 hydrocodone AdvReac Nausea Verified 03/10/21 08:19 ipratropium [From DuoNeb] AdvReac Nausea Verified 03/10/21 08:19 procaine HCl [From Novocain] AdvReac pain Verified 03/10/21 08:19 allergy medicines AdvReac "dries me Uncoded 03/10/21 08:20 out, bloody noses,generalized pain" Physical Exam Vitals: Vital Signs Temp Pulse Resp BP Pulse Ox 03/10/21 10:13 98.9 F 64 18 126/55 100 03/10/21 10:10 98 F 18 126/56 100 03/10/21 10:00 98 F 82 18 146/78 100 03/10/21 06:53 18 03/10/21 06:42 99.2 F 84 18 130/53 100 Intake and Output 03/09/21 03/10/21 03/10/21 22:59 06:59 14:59 Intake Total 0 Balance 0 Intake: Blood Product 0 Rc As-1 Unit 0 [id number] Other: Weight 87.997 kg General appearance: The patient is alert, oriented, appears in no acute distress. HET: Head is normocephalic and atraumatic. Conjunctiva pink. Sclera anicteric. Neck: Supple without lymphadenopathy. Trachea midline. Heart: S1 S2. Regular rate and rhythm. Lungs: Clear to auscultation. Abdomen: Soft, diffuse tenderness, nondistended with bowel sounds. No guarding or rigidity. Skin: No rashes. No jaundice. Extremities: Normal skin color and turgor. No pedal edema. Neurological: No focal deficits. Alert and oriented. Results CBC & Chem 7: 03/10/21 07:23 03/10/21 07:23 Labs: Abnormal Lab Results - Last 24 Hours (Table) 03/10/21 03/10/21 03/10/21 Range/Units 07:23 07:23 07:23 RBC 2.08 L (3.80-5.40) m/uL Hgb 6.9 L* D (11.4-16.0) gm/dL Hct 21.3 L (34.0-46.0) % MCV 102.6 H D (80.0-100.0) fL RDW 19.4 H (11.5-15.5) % Sodium 129 L (137-145) mmol/L Potassium 5.6 H (3.5-5.1) mmol/L BUN 24 H (7-17) mg/dL Creatinine 1.73 H (0.52-1.04) mg/dL Glucose 171 H (74-99) mg/dL Calcium 8.0 L (8.4-10.2) mg/dL Total Protein 6.2 L (6.3-8.2) g/dL Albumin 2.7 L (3.5-5.0) g/dL Crossmatch See Detail Assessment and Plan (1) Anemia Narrative/Plan: 81-year-old female who presented to the emergency department from medical chart for abnormal labs. Patient admitted to the emergency department with a hemoglobin of 6.9. She denies any active bleeding. Denies any blood in her stool, nausea, or vomiting. Patient states that her stools are dark however she takes iron. She denies any previous blood transfusions in the past. She does state that she has abdominal pain however states that she has pain all over her body. She states that no previous history of EGD last colonoscopy was remote. She states last colonoscopy was many years ago and states it was normal. She denies following with automotive porter however does have a long history of anemia. She currently is on oral iron and Procrit at home. Patient's labs are consistent with a macrocytic anemia. Iron studies are pending. Unclear of etiology for anemia, however at this time: Stool is negative. Possible etiologies include anemia of chronic disease. Will await iron studies and CT of the abdomen. Current Visit: Yes Status: Acute Code(s): D64.9 - ANEMIA, UNSPECIFIED SNOMED Code(s): 023140352 (2) Abdominal pain Narrative/Plan: Diffuse abdominal pain on palpation. Unclear on etiology of pain. CT of abdomen and pelvis without contrast ordered due to kidney function. Current Visit: Yes Status: Acute Code(s): R10.9 - UNSPECIFIED ABDOMINAL PAIN SNOMED Code(s): 96908166 Plan: 1. Continue symptomatic and supportive care 2. Agree with PRBC transfusion 3. Iron studies ordered 4. Hold anticoagulation 5. Daily CBC transfuse for hemoglobin less than [address] abdomen and pelvis without contrast ordered for abdominal pain 7. Agree with hematology consult 8. Further recommendations forthcoming based on clinical course Thank you for this consultation, we will continue to follow. Dr. Oren Hutchins I agree with the dictator's note, documented as a scribe by Farheen Islas.
[2021-03-10] MEDS: traMADol 50 MG TAB PO PRN (14:48)
[2021-03-10] MEDS: GABAPENTIN 100 MG CAP PO SCH ×2 (14:48→18:24)
[2021-03-10] MEDS: FOLIC ACID 1 MG TAB PO SCH (14:49)
[2021-03-10] MEDS: METOPROLOL TARTRATE 12.5 MG TAB PO SCH ×2 (14:49→18:47)
[2021-03-10] MEDS: CARBIDOPA-LEVODOPA 25-100 MG 1 EACH TAB PO SCH ×4 (14:49→22:05)
--- NOTE | 2021-03-10 15:07 | CT ---
EXAMINATION TYPE: CT abdomen pelvis wo con DATE OF EXAM: 03/10/2021 HISTORY: Anemia, abdominal pain CT DLP: 983.6 mGycm. Automated Exposure Control for Dose Reduction was Utilized. TECHNIQUE: CT scan of the abdomen and pelvis is performed without oral or IV contrast. COMPARISON: CT abdomen and pelvis July 28, 2016 FINDINGS: Within the limitations of a non-contrast study, the following observations are made. LUNG BASES: Moderate to severe parenchymal fibrotic change left greater than right with left-sided br onchiectasis is redemonstrated. There is cardiomegaly with epicardial pacer wires and overlying olivo al wires. There is lipomatous hypertrophy of the intra-arterial septum. LIVER/GB: No significant abnormality is appreciated. PANCREAS: No significant abnormality is seen. SPLEEN: No significant abnormality is seen. ADRENALS: Low dense nodularity to both adrenal glands redemonstrated favoring benign lipid rich hyper plasia as it is stable. KIDNEYS: Cortical thinning both kidneys is more prominent from prior study. Mild bilateral hydronephr osis without obstructing ureteral calculi. Moderately distended bladder without intraluminal calculus . BOWEL: Evaluation bowel suboptimal secondary to lack of enteric contrast. Stomach poorly distended an d thus suboptimally evaluated. No suspicious small bowel dilatation. Mild diffuse fecal prominence th roughout the colon. Diffuse colonic diverticulosis. Findings greatest at level sigmoid colon. No conv incing CT evidence for acute diverticulitis. GENITAL ORGANS: Uterus surgically absent. Scattered pelvic phleboliths. LYMPH NODES: No greater than 1cm abdominal or pelvic lymph nodes are appreciated. OSSEOUS STRUCTURES: Facet arthropathy lower lumbar levels. [id number] multilevel spurring the s pine. OTHER: Moderate to severe atherosclerotic changes of the aorta extending into branch vessels. There i s 3.1 cm distal AAA axial image 38. IMPRESSION: 1. No suspicious focal fluid collection to suggest hematoma. 2. Moderately distended bladder likely accounting for new mild bilateral hydronephrosis. Consider Fol ey catheterization. No renal calculus or obstructing ureteral calculi identified 3. Diffuse colonic diverticulosis redemonstrated without CT evidence for acute diverticulitis. 4. No additional new acute finding.
[2021-03-10] MEDS ORDERED: bisacodyL 10 MG SUPP RECTAL PRN (15:16)
--- NOTE | 2021-03-10 15:19 | P.HPIM ---
History of Present Illness H&P Date: 03/10/21 Chief Complaint: Anemia, abdominal pain 81 year old woman with permanent a fib on eliquis, HTN/HLD/DM/CAD, chronic diastolic heart failiure, recent COVID infection, COPD/DIONI presented with abdominal pain, anemia. Pt was in moderate to severe distress from abdominal pain during my evaluation and would not answer my questions on interview. ROS was positive for abdominal pain, but she did not engage in any further questioning. In reviewing the EMR, my understanding is that after she was discharged to SNF, she was progressing well, but routine blood check demonstrated anemia to 6.4, and patient was sent to the hospital for further evaluation. Initially, there were not complaints of abdominal pain, and this apparently developed later in the ER course. Patient otherwise had no complaints herself despite the low hemoglobin. The abdominal pain appears to be of sudden onset and diffuse, but beyond that, I could not get a sense of its nature and whether it was sharp, cramping, squeezing, etc. Patients vitals are otherwise stable, afebrile, 149/67, HR 85, 100% on 2L NC. CBC showed hgb of 6.9, hyponatremia to 129, hyperkalemia to 5.6, BUN 24, Cr 1.73 with baseline of 1.5. CT A/P without contrast did not find any source of bleeding, but did demonstrate mild bilateral hydronephrosis with distended bladder. Review of Systems See HPI Past Medical History Past Medical History: COPD, Diabetes Mellitus, Hyperlipidemia, Hypertension, Myocardial Infarction ([place]), Sleep Apnea/CPAP/BIPAP Additional Past Medical History / Comment(s): tremors,NO left arm blood draw or blood pressure(vessel harvested for CABG), blockages in angelica legs, Coonstipation, gout, PAD Last Myocardial Infarction Date:: 1999 History of Any Multi-Drug Resistant Organisms: None Reported Past Surgical History: Appendectomy, Coronary Bypass/CABG, Heart Catheterization, Hysterectomy, Tonsillectomy Additional Past Surgical History / Comment(s): angiogram. Right neck lymphnode removal Past Anesthesia/Blood Transfusion Reactions: No Reported Reaction Past Psychological History: No Psychological Hx Reported Smoking Status: Former smoker Past Alcohol Use History: None Reported Past Drug Use History: None Reported - Past Family History Brother(s) Family Medical History: Cancer Son(s) Family Medical History: Cancer Sister(s) Family Medical History: Cancer Mother Family Medical History: COPD, Myocardial Infarction ([place]) Additional Family Medical History / Comment(s): mother of [place]-pt cannot r ecall at what age. Medications and Allergies Home Medications Medication Instructions Recorded Confirmed Type Ezetimibe [Zetia] 10 mg PO HS@2100 11/20/13 03/10/21 History Lovastatin [Mevacor] 10 mg PO HS@2100 11/20/13 03/10/21 History Apixaban [Eliquis] 2.5 mg PO BID@0800,1700 02/17/20 03/10/21 History Cyanocobalamin [Vitamin B-12] 500 mcg PO DAILY@1700 02/17/20 03/10/21 History Folic Acid 1 mg PO DAILY@1700 02/17/20 03/10/21 History Docusate [Colace] 100 mg PO BID@0800,1700 02/05/21 03/10/21 History Epoetin Obed [Procrit] 10,000 unit SQ TH@0800 02/05/21 03/10/21 History Ferrous Sulfate [Iron (65 MG 325 mg PO DAILY@1700 02/05/21 03/10/21 History Elemental)] Metoprolol Tartrate [Lopressor] 12.5 mg PO BID@0800,1700 02/05/21 03/10/21 History Carbidopa-Levodopa 25-100 mg 1 tab PO QID@08,12,17,02/11/21 03/10/21 History [Sinemet 25-100 mg] Linagliptin [Tradjenta] 5 mg PO DAILY@0800 02/11/21 03/10/21 History traMADol HCl [Ultram] 50 mg PO QID PRN #9 tab 03/03/21 03/10/21 Rx Gabapentin [Neurontin] 200 mg PO BID@0800,1700 03/06/21 03/10/21 History LORazepam [Ativan] 0.5 mg PO BID PRN 03/06/21 03/10/21 History Magnesium Hydroxide [Milk of 7,200 mg PO DAILY PRN 03/06/21 03/10/21 History Magnesia Concentrate] Na Phos,M-B/Na Phos,Di-Ba [Fleet 133 ml RECTAL DAILY PRN 03/06/21 03/10/21 History Adult] bisacodyL [Dulcolax] 10 mg RECTAL DAILY PRN 03/06/21 03/10/21 History Allergies Allergy/AdvReac Type Severity Reaction Status Date / Time albuterol [From DuoNeb] AdvReac Nausea Verified 03/10/21 08:19 cortisone AdvReac PAIN Verified 03/10/21 08:19 hydrocodone AdvReac Nausea Verified 03/10/21 08:19 ipratropium [From DuoNeb] AdvReac Nausea Verified 03/10/21 08:19 procaine HCl [From Novocain] AdvReac pain Verified 03/10/21 08:19 allergy medicines AdvReac "dries me Uncoded 03/10/21 08:20 out, bloody noses,generalized pain" Physical Exam Osteopathic Statement: *. No significant issues noted on an osteopathic structural exam other than those noted in the History and Physical/Consult. Vitals: Vital Signs Temp Pulse Resp BP Pulse Ox 03/10/21 14:49 85 18 149/67 100 03/10/21 12:00 80 18 149/67 98 03/10/21 11:10 99.1 F 80 18 138/60 100 03/10/21 10:40 98 F 80 18 138/60 03/10/21 10:13 98.9 F 64 18 126/55 100 03/10/21 10:10 98 F 18 126/56 100 03/10/21 10:00 98 F 82 18 146/78 100 03/10/21 06:53 18 03/10/21 06:42 99.2 F 84 18 130/53 100 Intake and Output 03/10/21 03/10/21 03/10/21 06:59 14:59 22:59 Intake Total 310 Balance 310 Intake: Blood Product 310 Rc As-1 Unit 310 [id number] Other: Weight 87.997 kg Gen: In severe distress from pain, awake HEENT: normocephalic, atraumatic, impaired hearing acuity, moist mucous membranes Resp: good air exchange, breathing comfortably with no accessory muscle use CVS: good distal perfusion x 4, GI: Diffusely tender to palpation, no guarding : no SPT, no CVAT, brower catheter not present MSK: + Bilateral pitting edema, no clubbing Neuro: non-focal, moving all extremities Results CBC & Chem 7: 03/10/21 07:23 03/10/21 07:23 Labs: Abnormal Lab Results - Last 24 Hours (Table) 03/10/21 03/10/21 03/10/21 Range/Units 07:23 07:23 07:23 RBC 2.08 L (3.80-5.40) m/uL Hgb 6.9 L* D (11.4-16.0) gm/dL Hct 21.3 L (34.0-46.0) % MCV 102.6 H D (80.0-100.0) fL RDW 19.4 H (11.5-15.5) % Sodium 129 L (137-145) mmol/L Potassium 5.6 H (3.5-5.1) mmol/L BUN 24 H (7-17) mg/dL Creatinine 1.73 H (0.52-1.04) mg/dL Glucose 171 H (74-99) mg/dL Calcium 8.0 L (8.4-10.2) mg/dL Total Protein 6.2 L (6.3-8.2) g/dL Albumin 2.7 L (3.5-5.0) g/dL Crossmatch See Detail Assessment and Plan Assessment: Anemia Chronic kidney disease stage IIIB -Admit to inpatient, telemetry -Transfuse 1 unit of packed blood cells -Repeat CBC in the morning -GI consult -Hematology consult -Nephrology consult -Iron studies, B12/folate, EPO, MMA, haptoglobin - pending -Stool occult blood Hydronephrosis Urinary retention -Insert Brower catheter -Repeat renal ultrasound in 48 hours Permanent atrial fibrillation on Eliquis -Hold Eliquis -Continue metoprolol Hypertension Hyperlipidemia Diabetes type 2 COPD without exacerbation Obstructive sleep apnea CAD Chronic diastolic heart failure Parkinsons Disease -Home medications reviewed and reconciled Patient is a full code DVT prophylaxis held in the setting of anemia
[2021-03-10 15:53] LABS: % Iron Saturation 12.13 (12.00-45.00); Iron 21 ug/dL (50-170); Total Iron Binding Capacity 176 ug/dL (228-460)
[2021-03-10 17:30] LABS: Folate, Serum >20.00 ng/mL (4.40-31.00)
--- NOTE | 2021-03-10 18:03 | P.CONS ---
History of Present Illness - Reason for Consult Consult date: 03/10/21 anemia Requesting physician: Robel Ramires - Chief Complaint abnormal lab, sent from [facility]. - History of Present Illness Ms. Navarro is a very pleasant 81-year-old female we've been asked to see regarding macrocytic anemia. She recently became a resident at [facility]. She was sent therefore rehabilitation after being hospitalized and treated for bilateral lower extremity cellulitis. She is not able to give us much history regarding her anemia but, it is noted in this medical record as far back as 2016. She states she is never required a blood transfusion before. She denies any bleeding. Medical records here show a colonoscopy in 2013, she is not barron mbering one any more recent than that. Review of Systems 10 point ROS is neg except as stated in HPI Past Medical History Past Medical History: COPD, Diabetes Mellitus, Hyperlipidemia, Hypertension, Myocardial Infarction ([place]), Sleep Apnea/CPAP/BIPAP Additional Past Medical History / Comment(s): tremors,NO left arm blood draw or blood pressure(vessel harvested for CABG), blockages in angelica legs, Coonstipation, gout, PAD Last Myocardial Infarction Date:: 1999 History of Any Multi-Drug Resistant Organisms: None Reported Past Surgical History: Appendectomy, Coronary Bypass/CABG, Heart Catheterization, Hysterectomy, Tonsillectomy Additional Past Surgical History / Comment(s): angiogram. Right neck lymphnode removal Past Anesthesia/Blood Transfusion Reactions: No Reported Reaction Past Psychological History: No Psychological Hx Reported Smoking Status: Former smoker Past Alcohol Use History: None Reported Past Drug Use History: None Reported - Past Family History Brother(s) Family Medical History: Cancer Son(s) Family Medical History: Cancer Sister(s) Family Medical History: Cancer Mother Family Medical History: COPD, Myocardial Infarction ([place]) Additional Family Medical History / Comment(s): mother of [place]-pt cannot recall at what age. Medications and Allergies Home Medications Medication Instructions Recorded Confirmed Type Ezetimibe [Zetia] 10 mg PO HS@2100 11/20/13 03/10/21 History Lovastatin [Mevacor] 10 mg PO HS@2100 11/20/13 03/10/21 History Apixaban [Eliquis] 2.5 mg PO BID@0800,1700 02/17/20 03/10/21 History Cyanocobalamin [Vitamin B-12] 500 mcg PO DAILY@1700 02/17/20 03/10/21 History Folic Acid 1 mg PO DAILY@1700 02/17/20 03/10/21 History Docusate [Colace] 100 mg PO BID@0800,1700 02/05/21 03/10/21 History Epoetin Obed [Procrit] 10,000 unit SQ TH@0800 02/05/21 03/10/21 History Ferrous Sulfate [Iron (65 MG 325 mg PO DAILY@1700 02/05/21 03/10/21 History Elemental)] Metoprolol Tartrate [Lopressor] 12.5 mg PO BID@0800,1700 02/05/21 03/10/21 History Carbidopa-Levodopa 25-100 mg 1 tab PO QID@08,,,02/11/21 03/10/21 History [Sinemet 25-100 mg] Linagliptin [Tradjenta] 5 mg PO DAILY@0800 02/11/21 03/10/21 History traMADol HCl [Ultram] 50 mg PO QID PRN #9 tab 03/03/21 03/10/21 Rx Gabapentin [Neurontin] 200 mg PO BID@0800,1700 03/06/21 03/10/21 History LORazepam [Ativan] 0.5 mg PO BID PRN 03/06/21 03/10/21 History Magnesium Hydroxide [Milk of 7,200 mg PO DAILY PRN 03/06/21 03/10/21 History Magnesia Concentrate] Na Phos,M-B/Na Phos,Di-Ba [Fleet 133 ml RECTAL DAILY PRN 03/06/21 03/10/21 History Adult] bisacodyL [Dulcolax] 10 mg RECTAL DAILY PRN 03/06/21 03/10/21 History Allergies Allergy/AdvReac Type Severity Reaction Status Date / Time albuterol [From DuoNeb] AdvReac Nausea Verified 03/10/21 08:19 cortisone AdvReac PAIN Verified 03/10/21 08:19 hydrocodone AdvReac Nausea Verified 03/10/21 08:19 ipratropium [From DuoNeb] AdvReac Nausea Verified 03/10/21 08:19 procaine HCl [From Novocain] AdvReac pain Verified 03/10/21 08:19 allergy medicines AdvReac "dries me Uncoded 03/10/21 08:20 out, bloody noses,generalized pain" Physical Exam Vitals: Vital Signs Temp Pulse Resp BP Pulse Ox 03/10/21 10:13 98.9 F 64 18 126/55 100 03/10/21 10:10 98 F 18 126/56 100 03/10/21 10:00 98 F 82 18 146/78 100 03/10/21 06:53 18 03/10/21 06:42 99.2 F 84 18 130/53 100 Intake and Output 03/09/21 03/10/21 03/10/21 22:59 06:59 14:59 Intake Total 0 Balance 0 Intake: Blood Product 0 Rc As-1 Unit 0 [id number] Other: Weight 87.997 kg - Constitutional General appearance: cooperative, no acute distress, obese - EENT Eyes: anicteric sclerae, EOMI ENT: hearing grossly normal, normal oropharynx - Neck Neck: no lymphadenopathy - Respiratory Respiratory: bilateral: diminished, rales (few scattered) - Cardiovascular Rhythm: regular Heart sounds: normal: S1, S2 Abnormal Heart Sounds: no systolic murmur, no diastolic murmur, no rub, no S3 Gallop, no S4 Gallop, no click, no other leg Peripheral Edema: bilateral: 1+, Other (shins red, warm to touch) - Gastrointestinal General gastrointestinal: no absent bowel sounds, no decreased bowel sounds, no distended, no hepatomegaly, no hyperactive bowel sounds, normal bowel sounds, no organomegaly, no rigid, no scaphoid, soft, no splenomegaly, no tenderness, no umbilical hernia, no ventral hernia - Integumentary Integumentary: pale - Neurologic Neurologic: CNII-XII intact - Musculoskeletal Musculoskeletal: generalized weakness - Psychiatric Psychiatric: A&O x's 3, appropriate affect, intact judgment & insight Results CBC & Chem 7: 03/10/21 07:23 03/10/21 07:23 Labs: Abnormal Lab Results - Last 24 Hours (Table) 03/10/21 03/10/21 03/10/21 Range/Units 07:23 07:23 07:23 RBC 2.08 L (3.80-5.40) m/uL Hgb 6.9 L* D (11.4-16.0) gm/dL Hct 21.3 L (34.0-46.0) % MCV 102.6 H D (80.0-100.0) fL RDW 19.4 H (11.5-15.5) % Sodium 129 L (137-145) mmol/L Potassium 5.6 H (3.5-5.1) mmol/L BUN 24 H (7-17) mg/dL Creatinine 1.73 H (0.52-1.04) mg/dL Glucose 171 H (74-99) mg/dL Calcium 8.0 L (8.4-10.2) mg/dL Total Protein 6.2 L (6.3-8.2) g/dL Albumin 2.7 L (3.5-5.0) g/dL Crossmatch See Detail Assessment and Plan (1) Macrocytic anemia Narrative/Plan: Patient has had anemia since 2017 though, currently, degree of anemia is worse and requiring transfusion. She is never had a blood transfusion prior. Some of the possible differentials for this pt anemia include anemia of chronic kidney disease exacerbated by medications, recent infection and/or antibiotics. Labs of been ordered to evaluate progressive anemia. B12 levels and folic acid and MMA to evaluate macrocytosis. Agree with packed red blood cell transfusions to keep patient's hemoglobin 7 or higher. Current Visit: Yes Status: Acute Priority: High Code(s): D53.9 - NUTRITIONAL ANEMIA, UNSPECIFIED SNOMED Code(s): 22989695 Plan: CKD noted on review of chart, anemia and elevated creatinine since at least 2017. Erythropoietin level ordered. attests: I performed H&P, seen and examined pt, developed impression and plan of care. Discussed with dictator. Agree with dictation, documented as a scribe.
[2021-03-10] MEDS: SODIUM CHLORIDE 0.9% 1,000 ML IV SCH ×2 (18:27→22:17)
[2021-03-10] MEDS: FERROUS SULFATE 325 MG TAB PO SCH (18:47)
[2021-03-10] MEDS: DOCUSATE 100 MG CAP PO SCH (18:55)
[2021-03-10] MEDS: CYANOCOBALAMIN 500 MCG TAB PO SCH (18:55)
[2021-03-10] MEDS: ATORVASTATIN 10 MG TAB PO SCH (22:05)
[2021-03-10] MEDS: EZETIMIBE 10 MG TAB PO SCH (22:05)
[2021-03-11 07:31] LABS: Glucose,Whole Blood 103 mg/dL (75-99)
[2021-03-11] MEDS ORDERED: LINAGLIPTIN 5 MG TABLET PO SCH (08:00)
[2021-03-11 08:51] LABS: Anisocytosis Slight; Basophils % (A) 0 %; Eosinophils # (A) 0.5 k/uL (0-0.7); Eosinophils % (A) 8 %; HCT 25.4 % (34.0-46.0); Hypochromasia Slight; Lymphocytes # (A) 0.7 k/uL (1.0-4.8); Lymphocytes % (A) 12 %; MCHC 33.7 g/dL (31.0-37.0); MCV 97.8 fL (80.0-100.0); Macrocytosis Slight; Mean Platelet Volume 7.1; Monocytes # (A) 0.4 k/uL (0-1.0); Monocytes % (A) 6 %; Neutrophils # (A) 4.3 k/uL (1.3-7.7); Neutrophils % (A) 72 %; Platelet Count 222 k/uL (150-450); Poikilocytosis Moderate; RDW 19.9 % (11.5-15.5)
[2021-03-11 08:53] LABS: HGB 8.6 gm/dL (11.4-16.0)
[2021-03-11] MEDS: PANTOPRAZOLE 40 MG/10 ML VIAL IV SCH (10:04)
[2021-03-11] MEDS: CARBIDOPA-LEVODOPA 25-100 MG 1 EACH TAB PO SCH ×4 (10:04→20:25)
[2021-03-11] MEDS: DOCUSATE 100 MG CAP PO SCH ×2 (10:04→17:26)
[2021-03-11] MEDS: GABAPENTIN 100 MG CAP PO SCH ×2 (10:04→17:27)
[2021-03-11] MEDS: METOPROLOL TARTRATE 12.5 MG TAB PO SCH ×2 (10:05→17:26)
[2021-03-11 11:18] LABS: Glucose,Whole Blood 256 mg/dL (75-99)
--- NOTE | 2021-03-11 11:59 | P.PN ---
Subjective Progress Note Date: 03/11/21 Principal diagnosis: Anemia 81-year-old female who presented to the emergency department yesterday for anemia from extended care facility. Patient has long-standing history of ch ronic anemia likely multifactorial related to anemia of chronic disease. Patient has a history of renal disease. Admission patient was noted to have a hemoglobin of 6.9 and was transfused 1 unit of PRBC transfusion. Today's repeat hemoglobin is 8.6 hematocrit 25 platelet count 222,000 with a normocytic normochromic anemia. Iron studies 21 TIBC 176 ferritin 380. Occult stool negative. Today patient states she is feeling much better. Denies any abdominal pain, nausea, or vomiting. States she's only had clear liquid diet and is hungry and would like to eat. She is denying any evidence of GI bleed. States she has dark stool always due to her iron. Patient states her last colonoscopy was many years ago and also states she does not want any endoscopic evaluation.CT of abdomen reviewed showingsuspicious focal fluid collection to suggest hematoma. Moderately distended bladder likely accounting for new mild bilateral hydronephrosis. Diffuse colonic diverticulosis redemonstrated without CT evidence for acute diverticulitis. No additional new acute finding. Objective - Vital Signs Vital signs: Vital Signs Temp 98.1 F 03/11/21 04:40 Pulse 75 03/11/21 04:40 Resp 18 03/11/21 04:40 BP 131/85 03/11/21 04:40 Pulse Ox 97 03/11/21 07:38 Intake & Output 03/10/21 03/11/21 03/11/21 18:59 06:59 18:59 Intake Total 310 Output Total 2400 Balance 310 -2400 Weight 84.5 kg Intake: Blood Product 310 Rc As-1 Unit 310 [id number] Output: Urine 2400 Uretheral (Cuevas) 1500 Other: Voiding Method Indwelling Catheter - Exam General appearance: The patient is alert, oriented, appears in no acute distress. HET: Head is normocephalic and atraumatic. Conjunctiva pink. Sclera anicteric. Neck: Supple without lymphadenopathy. Abdomen: Soft, nontender, nondistended with bowel sounds. No guarding or rigidity. Extremities: Normal skin color and turgor. No pedal edema Skin: No rashes, no jaundice Neurological: No focal deficits. Alert and oriented -3. - Labs CBC & Chem 7: 03/11/21 08:19 03/10/21 07:23 Labs: Abnormal Lab Results - Last 24 Hours (Table) 03/10/21 03/10/21 03/10/21 Range/Units 07:23 07:23 07:23 RBC (3.80-5.40) m/uL Hgb (11.4-16.0) gm/dL Hct (34.0-46.0) % RDW (11.5-15.5) % Lymphocytes # (1.0-4.8) k/uL Haptoglobin 322.0 H (31.2-198.0) mg/dL POC Glucose (mg/dL) (75-99) mg/dL Iron 21 L (50-170) ug/dL TIBC 176 L (228-460) ug/dL Transferrin 126.0 L (204.0-354.0) mg/dL Ferritin 380.0 H (10.0-291.0) ng/mL Vitamin B12 1242.0 H (200.0-944.0) pg/mL Crossmatch See Detail 03/11/21 03/11/21 Range/Units 07:24 08:19 RBC 2.60 L (3.80-5.40) m/uL Hgb 8.6 L D (11.4-16.0) gm/dL Hct 25.4 L (34.0-46.0) % RDW 19.9 H (11.5-15.5) % Lymphocytes # 0.7 L (1.0-4.8) k/uL Haptoglobin (31.2-198.0) mg/dL POC Glucose (mg/dL) 103 H (75-99) mg/dL Iron (50-170) ug/dL TIBC (228-460) ug/dL Transferrin (204.0-354.0) mg/dL Ferritin (10.0-291.0) ng/mL Vitamin B12 (200.0-944.0) pg/mL Crossmatch Assessment and Plan (1) Anemia Narrative/Plan: 81-year-old female who presented to the emergency department from medical chart for abnormal labs. Patient admitted to the emergency department with a hemoglobin of 6.9. She denies any active bleeding. Denies any blood in her stool, nausea, or vomiting. Patient states that her stools are dark however she takes iron. She denies any previous blood transfusions in the past. She does state that she has abdominal pain however states that she has pain all over her body. She states that no previous history of EGD last colonoscopy was remote. She states last colonoscopy was many years ago and states it was normal. She denies following with stab setter and driller however does have a long history of anemia. She currently is on oral iron and Procrit at home. Patient's labs are consistent with a macrocytic anemia. CT of abdomen reviewed showingsuspicious focal fluid collection to suggest hematoma. Moderately distended bladder likely accounting for new mild bilateral hydronephrosis. Diffuse colonic diverticulosis redemonstrated without CT evidence for acute diverticulitis. No additional new acute finding. Iron studies are not consistent with iron deficiency anemia his ferritin is normal. Anemia is likely related to anemia of chronic disease. Hematology is following. No plans on endoscopic evaluation. Current Visit: Yes Status: Acute Code(s): D64.9 - ANEMIA, UNSPECIFIED SNOMED Code(s): 366220495 (2) Abdominal pain Narrative/Plan: Diffuse abdominal pain on palpation. Unclear on etiology of pain. CT of abdomen and pelvis without contrast ordered due to kidney function. A CT of the abdomen reviewed showing moderate diverticulosis without any evidence of diverticulitis. Nonacute abdomen. Current Visit: Yes Status: Acute Code(s): R10.9 - UNSPECIFIED ABDOMINAL PAIN SNOMED Code(s): 92372416 Plan: 1. Continue symptomatic and supportive care 2. Daily CBC, transfuse for hemoglobin less than 3. Iron studies were ordered and reviewed not consistent with iron deficiency anemia. 5. Daily CBC transfuse for hemoglobin less than [address] abdomen and pelvis reviewed with an acute abdomen 7. Agree with hematology consult 8. No plans on endoscopic evaluation. Likely anemia of chronic disease with no evidence of GI bleed. Occult stool negative. As well as patient is refusing any endoscopic evaluation. Thank you for this consultation, we will continue to follow. Dr. Oren Hutchins I agree with the dictator's note, documented as a scribe by Farheen Islas.
[2021-03-11 12:05] LABS: African American GFR (CKD) 34.4 (60.0-200.0); Albumin 2.7 g/dL (3.8-4.9); Albumin/Globulin Ratio 0.84 (1.60-3.17); BUN/Creat Ratio 11.19 Ratio (12.00-20.00); Blood Urea Nitrogen 17.9 mg/dL (9.0-27.0); Calcium 8.3 mg/dL (8.7-10.3); Globulin 3.2 g/dL (1.6-3.3); Non-African American GFR(CKD) 29.7 (60.0-200.0); Potassium 5.7 mmol/L (3.5-5.5); Total Bilirubin 0.3 mg/dL (0.30-1.20); Total Protein 5.9 g/dL (6.2-8.2)
[2021-03-11] MEDS ORDERED: SODIUM ZIRCONIUM CYCLOSILICATE 10 GM PACKET PO ONE (13:30)
[2021-03-11] MEDS: SODIUM FERRIC GLUCONAT-SUCROSE 125 MG in SODIUM CHLORIDE 0.9% 100 ML IVPB SCH (13:47)
[2021-03-11] MEDS: SODIUM CHLORIDE 0.9% 1,000 ML IV SCH (13:48)
[2021-03-11] MEDS ORDERED: SODIUM POLYSTYRENE SULFONATE 15 GM/60 ML BOTTLE PO STA (13:56)
--- NOTE | 2021-03-11 14:11 | P.PN ---
Subjective Progress Note Date: 03/11/21 Principal diagnosis: CC: low hgb 81 year old woman with permanent a fib on eliquis, HTN/HLD/DM/CAD, chronic diastolic heart failiure, recent COVID infection, COPD/DIONI was sent from a rehab facility because routine lab showed low hemoglobin of 6.4. In the ED patient was also complaining of abdominal pain. CT abdomen and pelvis showed distended bladder and bilateral hydronephrosis. Patient had a Cuevas catheter placed with 1500 mL output. After Cuevas was placed patient's abdominal pain improved. Patient was transfused 1 unit of PRBC and her hemoglobin responded appropriately. Patient denied any overt signs of bleeding. Iron panel was consistent with anemia of chronic disease. Hematology started patient on Aranesp. Per GI no endoscopic procedures needed at this time. I've also restarted patient's Eliquis. Patient also had mild acute kidney injury this is likely due to anemia. Her creatinine baseline is around 1.5. After transfusion patient's creatinine is improving. Patient also found to have hyperkalemia. She was given 1 dose of Kayexalate on 03/11/2021. Patient is currently denying any abdominal pain. She says that her abdominal pain resolved after Cuevas catheter was placed. Patient stated that she also has more energy after she received a unit of PRBC. Objective - Vital Signs Vital signs: Vital Signs Temp 98.6 F 03/11/21 11:17 Pulse 83 03/11/21 11:17 Resp 18 03/11/21 11:17 BP 121/54 03/11/21 11:17 Pulse Ox 98 03/11/21 11:17 Intake & Output 03/10/21 03/11/21 03/11/21 18:59 06:59 18:59 Intake Total 310 Output Total 2400 Balance 310 -2400 Weight 84.5 kg Intake: Blood Product 310 Rc As-1 Unit 310 [id number] Output: Urine 2400 Uretheral (Cuevas) 1500 Other: Voiding Method Indwelling Catheter Indwelling Catheter - Exam General examination - Alert and Oriented 3 in NAD, appears chronically debilitated Heart - + S1S2 no murmurs Lungs - Clear to auscultation Abdomen soft NT ND +ve BS 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 - 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 Psych - Calm and cooperative - Labs CBC & Chem 7: 03/11/21 08:19 03/11/21 08:19 Labs: Abnormal Lab Results - Last 24 Hours (Table) 03/10/21 03/10/21 03/10/21 Range/Units 07:23 07:23 07:23 RBC (3.80-5.40) m/uL Hgb (11.4-16.0) gm/dL Hct (34.0-46.0) % RDW (11.5-15.5) % Lymphocytes # (1.0-4.8) k/uL Haptoglobin 322.0 H (31.2-198.0) mg/dL Sodium (135-145) mmol/L Potassium (3.5-5.5) mmol/L Anion Gap (10.00-18.00) mmol/L Creatinine (0.6-1.5) mg/dL Est GFR (CKD-EPI)AfAm (60.0-200.0) Est GFR (CKD-EPI)NonAf (60.0-200.0) BUN/Creatinine Ratio (12.00-20.00) Ratio POC Glucose (mg/dL) (75-99) mg/dL Calcium (8.7-10.3) mg/dL Iron 21 L (50-170) ug/dL TIBC 176 L (228-460) ug/dL Transferrin 126.0 L (204.0-354.0) mg/dL Ferritin 380.0 H (10.0-291.0) ng/mL ALT (8-44) U/L Total Protein (6.2-8.2) g/dL Albumin (3.8-4.9) g/dL Albumin/Globulin Ratio (1.60-3.17) g/dL Vitamin B12 1242.0 H (200.0-944.0) pg/mL Crossmatch See Detail 03/11/21 03/11/21 03/11/21 Range/Units 07:24 08:19 08:19 RBC 2.60 L (3.80-5.40) m/uL Hgb 8.6 L D (11.4-16.0) gm/dL Hct 25.4 L (34.0-46.0) % RDW 19.9 H (11.5-15.5) % Lymphocytes # 0.7 L (1.0-4.8) k/uL Haptoglobin (31.2-198.0) mg/dL Sodium 133 L (135-145) mmol/L Potassium 5.7 H (3.5-5.5) mmol/L Anion Gap 9.00 L (10.00-18.00) mmol/L Creatinine 1.6 H (0.6-1.5) mg/dL Est GFR (CKD-EPI)AfAm 34.4 L (60.0-200.0) Est GFR (CKD-EPI)NonAf 29.7 L (60.0-200.0) BUN/Creatinine Ratio 11.19 L (12.00-20.00) Ratio POC Glucose (mg/dL) 103 H (75-99) mg/dL Calcium 8.3 L (8.7-10.3) mg/dL Iron (50-170) ug/dL TIBC (228-460) ug/dL Transferrin (204.0-354.0) mg/dL Ferritin (10.0-291.0) ng/mL ALT 5 L (8-44) U/L Total Protein 5.9 L (6.2-8.2) g/dL Albumin 2.7 L (3.8-4.9) g/dL Albumin/Globulin Ratio 0.84 L (1.60-3.17) g/dL Vitamin B12 (200.0-944.0) pg/mL Crossmatch 03/11/21 Range/Units 11:13 RBC (3.80-5.40) m/uL Hgb (11.4-16.0) gm/dL Hct (34.0-46.0) % RDW (11.5-15.5) % Lymphocytes # (1.0-4.8) k/uL Haptoglobin (31.2-198.0) mg/dL Sodium (135-145) mmol/L Potassium (3.5-5.5) mmol/L Anion Gap (10.00-18.00) mmol/L Creatinine (0.6-1.5) mg/dL Est GFR (CKD-EPI)AfAm (60.0-200.0) Est GFR (CKD-EPI)NonAf (60.0-200.0) BUN/Creatinine Ratio (12.00-20.00) Ratio POC Glucose (mg/dL) 256 H (75-99) mg/dL Calcium (8.7-10.3) mg/dL Iron (50-170) ug/dL TIBC (228-460) ug/dL Transferrin (204.0-354.0) mg/dL Ferritin (10.0-291.0) ng/mL ALT (8-44) U/L Total Protein (6.2-8.2) g/dL Albumin (3.8-4.9) g/dL Albumin/Globulin Ratio (1.60-3.17) g/dL Vitamin B12 (200.0-944.0) pg/mL Crossmatch Assessment and Plan Assessment: Anemia of chronic disease likely due to CKD Chronic kidney disease stage IIIB -Admit to inpatient, telemetry -Transfused 1 unit of packed blood cells on 03/10/21 -Hgb responded appropriately after one unit. Trend CBC Q12 -GI consult -> since ther are no overt signs of bleeding no need for Gi procedures at this time. -Hematology consult on board and started patient on Arenesp -Nephrology consult pending -Stool occult blood negative Hydronephrosis Urinary retention -Insert Cuevas catheter -will need voiding trials at rehab Permanent atrial fibrillation on Eliquis -Resume Eliquis -Continue metoprolol Hypertension Hyperlipidemia Diabetes type 2 COPD without exacerbation Obstructive sleep apnea CAD Chronic diastolic heart failure Parkinsons Disease -Home medications reviewed and reconciled Patient is a full code DVT prophylaxis held in the setting of anemia
--- NOTE | 2021-03-11 14:17 | P.PCN ---
Date of Procedure: 03/11/21 Procedure(s) Performed: Brief history: Patient is a pleasant 81-year-old white male admitted hospital with severe symptomatic anemia and hemoglobin of 5 g/dL. It appears of PRBC transfusion. He is been having intermittent black tarry stools. He was extensively investigated in October of this year with EGD, colonoscopy and small bowel capsule ENDOSCOPY and was noted to have scattered angiectasia in the duodenum and jejunum thatwere cauterized. He had an episode of acute GI bleed during last hospitalization 2 weeks ago at which time he refused EGD colonoscopy was discharged home and was scheduled as an outpatient basisbut he failed to show up. He was readmitted to the hospital with severe symptomatic anemia and hence scheduled for an EGD and colonoscopy today Procedure performed: Esophagogastroduodenoscopy/enteroscopy Colonoscopy snare polypectomy Preoperative diagnosis: severe symptomatic anemia and intermittent GI bleed Anesthesia: MAC Procedure: After informed consent was obtained from the patient was brought into the endoscopy unit and IV sedation was administered by anesthesia under continuous monitoring. Initially upper endoscopy was done. The Olympus GF 160 video endoscope was inserted inserted into the mouth and esophagus intubated without any difficulty and was gradually advanced into the stomach and duodenum and carefully examined. The bulb and second part of the duodenum appeared normal. the scope was advanced into the proximal jejunum and appeared normal. No angiectasia seen. The scope was then withdrawn into the stomach adequately insufflated with air and upon careful examination the antrum appeared normal. were changes consistent with moderate to severe portal hypertensive gastropathy involving the body and fundus of the stomach. No gastric or esophageal varices seen. The scope was then withdrawn into the esophagus. The GE junction was located at 40 cm to the incisors. It appeared regular with no erythema erosions or ulcerations. Rest of the esophagus appeared normal. Patient tolerated the procedure well. At this time the patient continued to remain sedation. Initial digital rectal examination was normal. Olympus CF 160 video colonoscope was then inserted into the rectum and gradually advanced to the cecum without any difficulty. Careful examination was performed as the scope was gradually being withdrawn. The prep was excellent. The cecum, ascending colon, appeared normal. In the hepatic flexure there were 3 polyps measuring 2 cm and 5 mm in size all of which were removed by snare polypectomy. Rest of the transverse colon, descending colon, sigmoid colon and rectum appeared normal. Retroflexion was performed in the rectum aas internal hemorrhoidsre noted. Patient tolerated the procedure well. Impression: 1. Upper endoscopy/enteroscopy revealed moderate to severe portal hypertensive gastropathy with no active bleeding 2. Colonoscopy revealed a 2 cm, 5 mm 3 hepatic flexure polyps status post polypectomy and grade 2 internal hemorrhoids Recommendations: Findings of this examination were discussed with the patient. Diet will be advanced as tolerated. Follow with the biopsy results. Transfuse as needed. Most lightly anemia is related to follow hypertensive gastropathy, bleeding from internal hemorrhoids and anemia of chronic disease underlying cirrhosis of the liver
--- NOTE | 2021-03-11 17:19 | CONS ---
CONSULTATION REASON FOR CONSULT: Renal failure. HISTORY OF PRESENT ILLNESS: Patient is an 81-year-old female who was admitted to the hospital yesterday with complaints of increased weakness. Patient was found to have a hemoglobin of 6.9 g/dL. Patient has been transfused one unit packed RBCs. Her creatinine was 1.7 with potassium of 5.6. Patient has underlying CKD with previous creatinine ranging from around 1.3 to 1.5 mg/dL at baseline with recent increase in creatinine to 1.9 and 1.7 on 03/06/2021. She currently has an indwelling Cuevas catheter. Blood pressure is not low. PAST MEDICAL HISTORY: Significant for COPD, type 2 diabetes, hyperlipidemia, hypertension, history of UT, obstructive sleep apnea, peripheral vascular disease, constipation. PAST SURGICAL HISTORY: Appendectomy, coronary artery bypass surgery, cardiac catheterization, hysterectomy, tonsillectomy, angiogram, lymph node biopsy. SOCIAL HISTORY: Patient is a former smoker. No history of drug abuse or alcohol abuse. MEDICATIONS: Medications at home prior to admission included Zetia, Mevacor, Eliquis, B12, folic acid, Colace, Procrit, Lopressor, Tradjenta, Ultram, Neurontin, Ativan, milk of magnesia, Dulcolax. ALLERGIES: ALLERGIES INCLUDE ALBUTEROL, CORTISONE, HYDROCODONE, NOVOCAIN. PHYSICAL EXAMINATION: Patient is comfortable, awake, not in any acute distress. Blood pressure 121/54, heart rate 83 per minute. She is afebrile. EXAMINATION OF THE HEART: S1 and S2. EXAMINATION OF LUNGS: Decreased breath sounds at the bases. Abdomen is soft, non-tender. Examination of lower extremities shows no significant edema. 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 LABS: Sodium 133, potassium 5.7, chloride 101, BUN 17.9, serum creatinine 1.6, hemoglobin 8.6 g/dL. Stool occult blood was negative. ASSESSMENT: 1. Chronic kidney disease NKF stage 3B, baseline creatinine 1.3 to 1.5 mg/dL, secondary to nephrosclerosis. Previous UA on 03/02/2021 was completely benign. 2. Anemia with stool for occult blood being negative, status post packed RBCs transfusion. Check serum and urine immunofixation. Rule out other causes of anemia. 3. Hyponatremia which appears to be hypovolemic, improved with saline. 4. Hyperkalemia associated with chronic kidney disease and acute kidney injury, not on MARISABEL inhibitors, angiotensin receptor blockers or NSAIDs. No active GI bleed noted at this time. Stool for occult blood was negative. Patient will be maintained on low-potassium diet. I will give her a dose of Lokelma and we will repeat labs in a.m. PLAN: Continue with the saline for now. Lokelma 5 grams x1 today. Repeat labs in a.m. Check urine and serum immunofixation. Thank you for this consultation. Will continue to follow the patient with you during her hospitalization. MMODL / IJN: [id number] /
[2021-03-11] MEDS: FERROUS SULFATE 325 MG TAB PO SCH (17:26)
[2021-03-11] MEDS: CYANOCOBALAMIN 500 MCG TAB PO SCH (17:26)
[2021-03-11] MEDS: FOLIC ACID 1 MG TAB PO SCH (17:27)
[2021-03-11] MEDS: traMADol 50 MG TAB PO PRN ×2 (17:27→20:25)
[2021-03-11 17:29] LABS: Glucose,Whole Blood 136 mg/dL (75-99)
[2021-03-11 19:02] LABS: Anisocytosis Slight; HCT 24.9 % (34.0-46.0); HGB 8.4 gm/dL (11.4-16.0); Hypochromasia Slight; MCHC 33.7 g/dL (31.0-37.0); MCV 98.2 fL (80.0-100.0); Macrocytosis Slight; Mean Platelet Volume 7.7; Platelet Count 203 k/uL (150-450); Poikilocytosis Slight; RBC 2.53 m/uL (3.80-5.40); WBC 6.5 k/uL (3.8-10.6)
[2021-03-11] MEDS: EZETIMIBE 10 MG TAB PO SCH (20:25)
[2021-03-11] MEDS: ATORVASTATIN 10 MG TAB PO SCH (20:25)
[2021-03-11] MEDS ORDERED: APIXABAN 2.5 MG TABLET PO SCH (21:00)
[2021-03-11 21:05] LABS: Glucose,Whole Blood 169 mg/dL (75-99)
[2021-03-12] MEDS: SODIUM CHLORIDE 0.9% 1,000 ML IV SCH ×2 (04:37→14:20)
[2021-03-12 05:24] LABS: Anisocytosis Slight; HCT 23.8 % (34.0-46.0); HGB 7.7 gm/dL (11.4-16.0); Hypochromasia Slight; MCH 32.2 pg (25.0-35.0); MCHC 32.5 g/dL (31.0-37.0); Macrocytosis Moderate; Mean Platelet Volume 7.5; Platelet Count 219 k/uL (150-450); Poikilocytosis Moderate; RBC 2.41 m/uL (3.80-5.40); RDW 19.2 % (11.5-15.5); WBC 5.2 k/uL (3.8-10.6)
[2021-03-12 05:42] LABS: African American GFR (CKD) 38 (>60 ml/min/1.73 sqM); Anion Gap 6 mmol/L; Blood Urea Nitrogen 19 mg/dL (7-17); Calcium 7.8 mg/dL (8.4-10.2); Carbon Dioxide 22 mmol/L (22-30); Chloride 101 mmol/L (98-107); Glucose 87 mg/dL (74-99); Non-African American GFR(CKD) 33 (>60 ml/min/1.73 sqM); Potassium 5.4 mmol/L (3.5-5.1); Sodium 129 mmol/L (137-145)
[2021-03-12 07:48] LABS: Glucose,Whole Blood 97 mg/dL (75-99)
[2021-03-12] MEDS ORDERED: DARBEPOETIN ALFA 25 MCG/0.42 ML SYRINGE SQ SCH (08:00)
[2021-03-12] MEDS: PANTOPRAZOLE 40 MG/10 ML VIAL IV SCH (09:57)
[2021-03-12] MEDS: APIXABAN 2.5 MG TABLET PO SCH ×2 (09:58→22:23)
[2021-03-12] MEDS: SODIUM FERRIC GLUCONAT-SUCROSE 125 MG in SODIUM CHLORIDE 0.9% 100 ML IVPB SCH (09:58)
[2021-03-12] MEDS: GABAPENTIN 100 MG CAP PO SCH ×2 (10:59→17:24)
[2021-03-12] MEDS: DOCUSATE 100 MG CAP PO SCH ×2 (10:59→17:24)
[2021-03-12] MEDS: METOPROLOL TARTRATE 12.5 MG TAB PO SCH ×2 (10:59→17:24)
[2021-03-12] MEDS: CARBIDOPA-LEVODOPA 25-100 MG 1 EACH TAB PO SCH ×4 (11:00→22:23)
[2021-03-12 12:18] LABS: Glucose,Whole Blood 145 mg/dL (75-99)
[2021-03-12 13:45] LABS: Anisocytosis Slight; HCT 27.2 % (34.0-46.0); MCH 32.4 pg (25.0-35.0); MCHC 33.1 g/dL (31.0-37.0); MCV 98.1 fL (80.0-100.0); Macrocytosis Slight; Mean Platelet Volume 8.8; Platelet Count 260 k/uL (150-450); Poikilocytosis Moderate; RBC 2.78 m/uL (3.80-5.40); RDW 19.5 % (11.5-15.5); WBC 8.2 k/uL (3.8-10.6)
--- NOTE | 2021-03-12 15:24 | P.PN ---
Subjective Progress Note Date: 03/12/21 Principal diagnosis: Anemia 81-year-old female who presented to the emergency department yesterday for anemia from extended care facility. Patient has long-standing history of ch ronic anemia likely multifactorial related to anemia of chronic disease. Patient has a history of renal disease. Admission patient was noted to have a hemoglobin of 6.9 and was transfused 1 unit of PRBC transfusion. Today's repeat hemoglobin is 8.6 hematocrit 25 platelet count 222,000 with a normocytic normochromic anemia. Iron studies 21 TIBC 176 ferritin 380. Occult stool negative. Today patient states she is feeling much better. Denies any abdominal pain, nausea, or vomiting. States she's only had clear liquid diet and is hungry and would like to eat. She is denying any evidence of GI bleed. States she has dark stool always due to her iron. Patient states her last colonoscopy was many years ago and also states she does not want any endoscopic evaluation.CT of abdomen reviewed showingsuspicious focal fluid collection to suggest hematoma. Moderately distended bladder likely accounting for new mild bilateral hydronephrosis. Diffuse colonic diverticulosis redemonstrated without CT evidence for acute diverticulitis. No additional new acute finding. Patient's last EGD and colonoscopy 01/23/14.upper endoscopy revealed mild antral gastritis but no evidence of esophagitis or peptic ulcer disease. Colonoscopy revealed rectal polyp status post polypectomy and moderate sigmoid diverticulosis. 03/12/2021 The patient is seen and examined sitting up at the bedside. She denies any She states she is feeling much better. Denies any abdominal pain. She's eating a regular diet. Repeat hemoglobin 9.0. Plan is for possible discharge today. Objective - Vital Signs Vital signs: Vital Signs Temp 98.4 F 03/12/21 13:00 Pulse 74 03/12/21 13:00 Resp 18 03/12/21 13:00 BP 149/72 03/12/21 13:00 Pulse Ox 100 03/12/21 13:00 Intake & Output 03/11/21 03/12/21 03/12/21 18:59 06:59 18:59 Intake Total 600 Output Total 1000 1300 1100 Balance -1000 -700 -1100 Intake: Intake, IV Titration 600 Amount Sodium Chloride 0.9% 1, 600 000 ml @ 75 mls/hr IV . [id number] [facility] Rx#:[id number] Output: Urine 1000 1300 1100 Uretheral (Cuevas) 1000 Other: Voiding Method Indwelling Catheter Indwelling Catheter Indwelling Catheter - Exam General appearance: The patient is alert, oriented, appears in no acute distress. HET: Head is normocephalic and atraumatic. Conjunctiva pink. Sclera anicteric. Neck: Supple without lymphadenopathy. Abdomen: Soft, nontender, nondistended with bowel sounds. No guarding or rigidity. Extremities: Normal skin color and turgor. No pedal edema Skin: No rashes, no jaundice Neurological: No focal deficits. Alert and oriented -3. - Labs CBC & Chem 7: 03/12/21 12:19 03/12/21 04:01 Labs: Abnormal Lab Results - Last 24 Hours (Table) 03/11/21 03/11/21 03/11/21 Range/Units 17:22 18:07 20:40 RBC 2.53 L (3.80-5.40) m/uL Hgb 8.4 L (11.4-16.0) gm/dL Hct 24.9 L (34.0-46.0) % RDW 19.0 H (11.5-15.5) % Sodium (137-145) mmol/L Potassium (3.5-5.1) mmol/L BUN (7-17) mg/dL Creatinine (0.52-1.04) mg/dL POC Glucose (mg/dL) 136 H 169 H (75-99) mg/dL Calcium (8.4-10.2) mg/dL 03/12/21 03/12/21 03/12/21 Range/Units 04:01 04:01 12:10 RBC 2.41 L (3.80-5.40) m/uL Hgb 7.7 L (11.4-16.0) gm/dL Hct 23.8 L (34.0-46.0) % RDW 19.2 H (11.5-15.5) % Sodium 129 L (137-145) mmol/L Potassium 5.4 H (3.5-5.1) mmol/L BUN 19 H (7-17) mg/dL Creatinine 1.47 H (0.52-1.04) mg/dL POC Glucose (mg/dL) 145 H (75-99) mg/dL Calcium 7.8 L (8.4-10.2) mg/dL 03/12/21 Range/Units 12:19 RBC 2.78 L (3.80-5.40) m/uL Hgb 9.0 L (11.4-16.0) gm/dL Hct 27.2 L (34.0-46.0) % RDW 19.5 H (11.5-15.5) % Sodium (137-145) mmol/L Potassium (3.5-5.1) mmol/L BUN (7-17) mg/dL Creatinine (0.52-1.04) mg/dL POC Glucose (mg/dL) (75-99) mg/dL Calcium (8.4-10.2) mg/dL Assessment and Plan (1) Anemia Narrative/Plan: 81-year-old female who presented to the emergency department from medical chart for abnormal labs. Patient admitted to the emergency department with a hemoglobin of 6.9. She denies any active bleeding. Denies any blood in her stool, nausea, or vomiting. Patient states that her stools are dark however she takes iron. She denies any previous blood transfusions in the past. She does state that she has abdominal pain however states that she has pain all over her body. She states that no previous history of EGD last colonoscopy was remote. She states last colonoscopy was many years ago and states it was normal. She denies following with project consultant however does have a long history of anemia. She currently is on oral iron and Procrit at home. Patient's labs are consistent with a macrocytic anemia. CT of abdomen reviewed showingsuspicious focal fluid collection to suggest hematoma. Moderately distended bladder likely accounting for new mild bilateral hydronephrosis. Diffuse colonic diverticulosis redemonstrated without CT evidence for acute diverticulitis. No additional new acute finding. Iron studies are not consistent with iron deficiency anemia his ferritin is normal. Anemia is likely related to anemia of chronic disease. Hematology is following. No plans on endoscopic evaluation. Current Visit: Yes Status: Acute Code(s): D64.9 - ANEMIA, UNSPECIFIED SNOMED Code(s): 824489997 (2) Abdominal pain Narrative/Plan: Diffuse abdominal pain on palpation. Unclear on etiology of pain. CT of abdomen and pelvis without contrast ordered due to kidney function. A CT of the abdomen reviewed showing moderate diverticulosis without any evidence of diverticulitis. Nonacute abdomen. Current Visit: Yes Status: Acute Code(s): R10.9 - UNSPECIFIED ABDOMINAL PAIN SNOMED Code(s): 95659058 Plan: 1. Continue symptomatic and supportive care 2. Daily CBC, transfuse for hemoglobin less than 3. Iron studies were ordered and reviewed not consistent with iron deficiency anemia. 5. Daily CBC transfuse for hemoglobin less than [address] abdomen and pelvis reviewed with an acute abdomen 7. Agree with hematology consult 8. No plans on endoscopic evaluation. Likely anemia of chronic disease with no evidence of GI bleed. Occult stool negative. As well as patient is refusing any endoscopic evaluation. Thank you for this consultation, we will sign off at this time. Dr. Oren Hutchins I agree with the dictator's note, documented as a scribe by Farheen Islas.
--- NOTE | 2021-03-12 15:43 | P.PN ---
Subjective Progress Note Date: 03/12/21 Principal diagnosis: CC: low hgb Patient denies any acute complaints. There are no acute issues overnight. Patient denies any overt signs of bleeding. Physical therapy was in the room will be ready to work with the patient. Patient stated that she'll only work for a little bit. Objective - Vital Signs Vital signs: Vital Signs Temp 98.4 F 03/12/21 13:00 Pulse 74 03/12/21 13:00 Resp 18 03/12/21 13:00 BP 149/72 03/12/21 13:00 Pulse Ox 100 03/12/21 13:00 Intake & Output 03/11/21 03/12/21 03/12/21 18:59 06:59 18:59 Intake Total 600 Output Total 1000 1300 1100 Balance -1000 -700 -1100 Intake: Intake, IV Titration 600 Amount Sodium Chloride 0.9% 1, 600 000 ml @ 75 mls/hr IV . 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 Psych - Calm and cooperative - Labs CBC & Chem 7: 03/12/21 12:19 03/12/21 04:01 Labs: Abnormal Lab Results - Last 24 Hours (Table) 03/11/21 03/11/21 03/11/21 Range/Units 17:22 18:07 20:40 RBC 2.53 L (3.80-5.40) m/uL Hgb 8.4 L (11.4-16.0) gm/dL Hct 24.9 L (34.0-46.0) % RDW 19.0 H (11.5-15.5) % Sodium (137-145) mmol/L Potassium (3.5-5.1) mmol/L BUN (7-17) mg/dL Creatinine (0.52-1.04) mg/dL POC Glucose (mg/dL) 136 H 169 H (75-99) mg/dL Calcium (8.4-10.2) mg/dL 03/12/21 03/12/21 03/12/21 Range/Units 04:01 04:01 12:10 RBC 2.41 L (3.80-5.40) m/uL Hgb 7.7 L (11.4-16.0) gm/dL Hct 23.8 L (34.0-46.0) % RDW 19.2 H (11.5-15.5) % Sodium 129 L (137-145) mmol/L Potassium 5.4 H (3.5-5.1) mmol/L BUN 19 H (7-17) mg/dL Creatinine 1.47 H (0.52-1.04) mg/dL POC Glucose (mg/dL) 145 H (75-99) mg/dL Calcium 7.8 L (8.4-10.2) mg/dL 03/12/21 Range/Units 12:19 RBC 2.78 L (3.80-5.40) m/uL Hgb 9.0 L (11.4-16.0) gm/dL Hct 27.2 L (34.0-46.0) % RDW 19.5 H (11.5-15.5) % Sodium (137-145) mmol/L Potassium (3.5-5.1) mmol/L BUN (7-17) mg/dL Creatinine (0.52-1.04) mg/dL POC Glucose (mg/dL) (75-99) mg/dL Calcium (8.4-10.2) mg/dL Assessment and Plan Assessment: Anemia of chronic disease likely due to CKD Chronic kidney disease stage IIIB -Admit to inpatient, telemetry -Transfused 1 unit of packed blood cells on 03/10/21 -Hgb responded appropriately after one unit. -Hemoglobin is stable -GI consult -> since ther are no overt signs of bleeding no need for Gi procedures at this time. -Hematology consult on board and started patient on Arenesp -Patient's creatinine is back to her baseline. -Stool occult blood negative -I discussed with gastroenterology said okay to resume Eliquis Hydronephrosis Urinary retention -Insert Cuevas catheter -will need voiding trials at rehab Permanent atrial fibrillation on Eliquis -Resume Eliquis -Continue metoprolol Hypertension Hyperlipidemia Diabetes type 2 COPD without exacerbation patient is on 3 L nasal cannula at baseline Obstructive sleep apnea CAD Chronic diastolic heart failure Parkinsons Disease -Home medications reviewed and reconciled Patient is medically stable for discharge to inpatient rehab facility. Awaiting for prior authorization Patient is a full code DVT prophylaxis Eliquis
--- NOTE | 2021-03-12 15:57 | PN ---
PROGRESS NOTE The patient is seen for followup for CKD and acute kidney injury. The patient is currently sitting up on a bedside chair, she is comfortable. Denies any significant complaints. Patient received a dose of Lokelma for hyperkalemia. Today potassium is down to 5.4. PHYSICAL EXAMINATION: On examination today, blood pressure 149/72, heart rate 74 per minute. She is afebrile. Examination of the heart S1, S2. Examination of the lungs, decreased breath sounds at the bases. Abdomen: Soft, obese. Examination of lower extremities shows edema 1+ bilaterally with chronic skin changes. METALSMITH exam grossly intact. LABS: Show sodium 129, potassium 5.4, chloride 101, BUN 19, creatinine 1.47, hemoglobin 7.7 earlier today and up to 9.0 now. ASSESSMENT: 1. Acute kidney injury associated with severe anemia, currently improved. Patient also received IV fluids initially. However, she is currently mildly hypervolemic. I will hold off on the IV fluids. Renal function has improved. The patient has an indwelling Cuevas catheter. 2. Hyperkalemia associated with chronic kidney disease and acute kidney injury status post Lokelma, maintained on low-potassium diet. Will add loop diuretics. 3. Anemia with negative stool for occult blood, status post packed RBCs transfusion going for EGD. 4. Hyponatremia, initially improved with normal saline today. Sodium is back down. I will discontinue the saline. The patient will likely be started on loop diuretics tomorrow. PLAN: DC normal saline. Repeat labs in a.m. Add low-dose loop diuretics starting tomorrow. MMODL / IJN: [id number] /
[2021-03-12] MEDS: CYANOCOBALAMIN 500 MCG TAB PO SCH (17:24)
[2021-03-12] MEDS: FOLIC ACID 1 MG TAB PO SCH (17:24)
[2021-03-12] MEDS: FERROUS SULFATE 325 MG TAB PO SCH (17:24)
[2021-03-12 17:41] LABS: Glucose,Whole Blood 144 mg/dL (75-99)
--- NOTE | 2021-03-12 19:39 | P.PN ---
Subjective Progress Note Date: 03/12/21 Principal diagnosis: worsening anemia Hemoglobin down 7.7 today, she is receiving epogen per nephrology Objective - Vital Signs Vital signs: Vital Signs Temp 97.9 F 03/12/21 07:00 Pulse 73 03/12/21 07:00 Resp 12 03/12/21 07:00 BP 135/69 03/12/21 07:00 Pulse Ox 94 L 03/12/21 07:00 Intake & Output 03/11/21 03/12/21 03/12/21 18:59 06:59 18:59 Intake Total 600 Output Total 1000 1300 Balance -1000 -700 Intake: Intake, IV Titration 600 Amount Sodium Chloride 0.9% 1, 600 000 ml @ 75 mls/hr IV . [id number] [facility] Rx#:[id number] Output: Urine 1000 1300 Uretheral (Cuevas) 1000 Other: Voiding Method Indwelling Catheter Indwelling Catheter Indwelling Catheter - Exam Fatigue NAD Head NCAT Lungs CTA Heart irr Abdo Soft Ext Eccy Mild pedal - Labs CBC & Chem 7: 03/12/21 12:19 03/12/21 04:01 Labs: Abnormal Lab Results - Last 24 Hours (Table) 03/11/21 03/11/21 03/11/21 Range/Units 17:22 18:07 20:40 RBC 2.53 L (3.80-5.40) m/uL Hgb 8.4 L (11.4-16.0) gm/dL Hct 24.9 L (34.0-46.0) % RDW 19.0 H (11.5-15.5) % Sodium (137-145) mmol/L Potassium (3.5-5.1) mmol/L BUN (7-17) mg/dL Creatinine (0.52-1.04) mg/dL POC Glucose (mg/dL) 136 H 169 H (75-99) mg/dL Calcium (8.4-10.2) mg/dL 03/12/21 03/12/21 03/12/21 Range/Units 04:01 04:01 12:10 RBC 2.41 L (3.80-5.40) m/uL Hgb 7.7 L (11.4-16.0) gm/dL Hct 23.8 L (34.0-46.0) % RDW 19.2 H (11.5-15.5) % Sodium 129 L (137-145) mmol/L Potassium 5.4 H (3.5-5.1) mmol/L BUN 19 H (7-17) mg/dL Creatinine 1.47 H (0.52-1.04) mg/dL POC Glucose (mg/dL) 145 H (75-99) mg/dL Calcium 7.8 L (8.4-10.2) mg/dL Assessment and Plan (1) Anemia Current Visit: Yes Status: Acute Code(s): D64.9 - ANEMIA, UNSPECIFIED SNOMED Code(s): 910321682 (2) Atrial flutter with rapid ventricular response Current Visit: No Status: Acute Code(s): I48.92 - UNSPECIFIED ATRIAL FLUTTER SNOMED Code(s): 5957598 (3) Bilateral cellulitis of lower leg Current Visit: No Status: Acute Code(s): L03.116 - CELLULITIS OF LEFT LOWER LIMB; L03.115 - CELLULITIS OF RIGHT LOWER LIMB SNOMED Code(s): 772555778 (4) CHF (congestive heart failure) Current Visit: No Status: Acute Code(s): I50.9 - HEART FAILURE, UNSPECIFIED SNOMED Code(s): 86678401 Plan: Please continue to monitor daily CBC and transfuse less than 7 Awaiting completed Anemia work-up for more recommendation, as this is still pending
[2021-03-12 21:51] LABS: Glucose,Whole Blood 176 mg/dL (75-99)
[2021-03-12] MEDS: EZETIMIBE 10 MG TAB PO SCH (22:22)
[2021-03-12] MEDS: ATORVASTATIN 10 MG TAB PO SCH (22:22)
[2021-03-13] MEDS: traMADol 50 MG TAB PO PRN ×2 (02:53→09:21)
[2021-03-13 06:31] VITALS: TEMP 98.3
[2021-03-13 06:39] LABS: Anisocytosis Slight; Basophils % (A) 0 %; Eosinophils # (A) 0.4 k/uL (0-0.7); Eosinophils % (A) 8 %; HGB 7.6 gm/dL (11.4-16.0); Hypochromasia Slight; Lymphocytes # (A) 0.8 k/uL (1.0-4.8); Lymphocytes % (A) 14 %; MCH 32.1 pg (25.0-35.0); MCHC 33.1 g/dL (31.0-37.0); Macrocytosis Slight; Mean Platelet Volume 7.3; Monocytes # (A) 0.4 k/uL (0-1.0); Monocytes % (A) 8 %; Neutrophils # (A) 3.8 k/uL (1.3-7.7); Neutrophils % (A) 69 %; Platelet Count 226 k/uL (150-450); Poikilocytosis Slight; RBC 2.37 m/uL (3.80-5.40); RDW 18.6 % (11.5-15.5); WBC 5.5 k/uL (3.8-10.6)
[2021-03-13 07:27] LABS: Glucose,Whole Blood 100 mg/dL (75-99)
[2021-03-13 07:39] VITALS: BP 129/62; PULSE 80; RESP 16
[2021-03-13] MEDS: DOCUSATE 100 MG CAP PO SCH (09:14)
[2021-03-13] MEDS: CARBIDOPA-LEVODOPA 25-100 MG 1 EACH TAB PO SCH ×2 (09:15→12:51)
[2021-03-13] MEDS: GABAPENTIN 100 MG CAP PO SCH (09:15)
[2021-03-13] MEDS: APIXABAN 2.5 MG TABLET PO SCH (09:16)
[2021-03-13] MEDS: METOPROLOL TARTRATE 12.5 MG TAB PO SCH (09:16)
[2021-03-13] MEDS: PANTOPRAZOLE 40 MG/10 ML VIAL IV SCH (09:16)
[2021-03-13] MEDS: SODIUM FERRIC GLUCONAT-SUCROSE 125 MG in SODIUM CHLORIDE 0.9% 100 ML IVPB SCH (09:20)
[2021-03-13 10:05] LABS: African American GFR (CKD) 37 (>60 ml/min/1.73 sqM); Anion Gap 3 mmol/L; Blood Urea Nitrogen 16 mg/dL (7-17); Calcium 8.1 mg/dL (8.4-10.2); Carbon Dioxide 26 mmol/L (22-30); Chloride 103 mmol/L (98-107); Glucose 94 mg/dL (74-99); Non-African American GFR(CKD) 32 (>60 ml/min/1.73 sqM); Potassium 5.1 mmol/L (3.5-5.1); Sodium 132 mmol/L (137-145)
[2021-03-13 12:39] LABS: Anisocytosis Slight; HCT 25.9 % (34.0-46.0); HGB 8.4 gm/dL (11.4-16.0); Hypochromasia Slight; MCH 32.1 pg (25.0-35.0); MCHC 32.4 g/dL (31.0-37.0); MCV 99.1 fL (80.0-100.0); Macrocytosis Moderate; Mean Platelet Volume 7.7; Platelet Count 263 k/uL (150-450); Poikilocytosis Slight; RBC 2.62 m/uL (3.80-5.40); WBC 6.4 k/uL (3.8-10.6)
[2021-03-13 12:58] LABS: Glucose,Whole Blood 149 mg/dL (75-99)
--- NOTE | 2021-03-13 13:25 | P.DS ---
Providers Date of admission: 03/10/21 08:13 Expected date of discharge: 03/13/21 Attending physician: Sol Mcnmaara DO Consults: 03/10/21 08:14 Consult Physician Routine Consulting Provider: Hugo Cordova Consult Reason/Comments: anemia Do you want consulting provider notified?: Yes 03/10/21 15:14 Consult Physician Routine Consulting Provider: Digna Roth Consult Reason/Comments: CKD with anemia Do you want consulting provider notified?: Yes Primary care physician: [facility][1] Course: Discharge Diagnosis: Anemia of chronic disease likely due to CKD Chronic kidney disease stage IIIB Hydronephrosis Urinary retention Permanent atrial fibrillation on Eliquis Hypertension Hyperlipidemia Diabetes type 2 COPD without exacerbation patient is on 3 L nasal cannula at baseline Obstructive sleep apnea CAD Chronic diastolic heart failure Parkinsons Disease Hospital Course: Patient was sent for inpatient rehab facility because she was found to have low hemoglobin. Patient was transfused 1 unit of PRBC in the ED. She was then referred for admission. Patient's hemoglobin responded appropriately. GI was consulted. Per GI patient does not have any signs of bleeding so no GI procedures needed. In addition patient has anemia of chronic disease and not iron deficiency anemia. Her stool occult was also negative. I discussed with GI who said okay to resume her Eliquis. Patient's hemoglobin was stable throughout the remainder of hospitalization. She had no overt signs of bleeding. She was deemed stable for discharge. Of note in the ED patient was complaining of abdominal pain. Her CT abdomen and pelvis was unremarkable but did show distended bladder with mild hydronephrosis. Patient had a Cuevas catheter placed with greater [id number] mL output. After Cuevas catheter placement her abdominal pain resolved. Patient will need voiding trials while at the care home. Patient is also being followed by nephrology for acute kidney injury on CK D. Patient's renal function improved to baseline. Per nephrology recommendations I will start patient on Lasix on discharge. [facility]. At the time of discharge patient denied any shortness of breath chest pain nausea vomiting or diarrhea. She says she is looking forward to going back to rehab. General examination - Alert and Oriented 3 in NAD, patient appears chronically debilitated Heart - + S1S2 no murmurs Lungs - Clear to auscultation Abdomen soft NT ND +ve BS Extremities -+1 pitting edema bilateral lower extremities [employer]ER - Moving 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 spontaneously Psych - Calm and cooperative A total of [32] minutes of time were spent preparing this complex discharge summary . Patient Condition at Discharge: Fair Plan - Discharge Summary New Discharge Prescriptions: New Furosemide [Lasix] 20 mg PO DAILY #30 tab Continue Ezetimibe [Zetia] 10 mg PO HS@2100 Lovastatin [Mevacor] 10 mg PO HS@2100 Cyanocobalamin [Vitamin B-12] 500 mcg PO DAILY@1700 Apixaban [Eliquis] 2.5 mg PO BID@0800,1700 Folic Acid 1 mg PO DAILY@1700 Docusate [Colace] 100 mg PO BID@0800,1700 Metoprolol Tartrate [Lopressor] 12.5 mg PO BID@0800,1700 LORazepam [Ativan] 0.5 mg PO BID PRN PRN Reason: Anxiety Na Phos,M-B/Na Phos,Di-Ba [Fleet Adult] 133 ml RECTAL DAILY PRN PRN Reason: Constipation Ferrous Sulfate [Iron (65 MG Elemental)] 325 mg PO DAILY@1700 Epoetin Obed [Procrit] 10,000 unit SQ TH@0800 Carbidopa-Levodopa 25-100 mg [Sinemet 25-100 mg] 1 tab PO QID@08,12,17,21 Linagliptin [Tradjenta] 5 mg PO DAILY@0800 traMADol HCl [Ultram] 50 mg PO QID PRN #9 tab PRN Reason: Pain bisacodyL [Dulcolax] 10 mg RECTAL DAILY PRN PRN Reason: Constipation Gabapentin [Neurontin] 200 mg PO BID@0800,1700 Magnesium Hydroxide [Milk of Magnesia Concentrate] 7,200 mg PO DAILY PRN PRN Reason: Constipation Discharge Medication List Ezetimibe [Zetia] 10 mg PO HS@209911/20/13 [History] Lovastatin [Mevacor] 10 mg PO HS@209911/20/13 [History] Apixaban [Eliquis] 2.5 mg PO BID@0800,1700 02/17/20 [History] Cyanocobalamin [Vitamin B-12] 500 mcg PO DAILY@1700 02/17/20 [History] Folic Acid 1 mg PO DAILY@1700 02/17/20 [History] Docusate [Colace] 100 mg PO BID@0800,1700 02/05/21 [History] Epoetin Obed [Procrit] 10,000 unit SQ TH@0800 02/05/21 [History] Ferrous Sulfate [Iron (65 MG Elemental)] 325 mg PO DAILY@1700 02/05/21 [History] Metoprolol Tartrate [Lopressor] 12.5 mg PO BID@0800,1700 02/05/21 [History] Carbidopa-Levodopa 25-100 mg [Sinemet 25-100 mg] 1 tab PO QID@08,12,17,21 02/11/21 [History] Linagliptin [Tradjenta] 5 mg PO DAILY@0800 02/11/21 [History] traMADol HCl [Ultram] 50 mg PO QID PRN #9 tab 03/03/21 [Rx] Gabapentin [Neurontin] 200 mg PO BID@0800,1700 03/06/21 [History] LORazepam [Ativan] 0.5 mg PO BID PRN 03/06/21 [History] Magnesium Hydroxide [Milk of Magnesia Concentrate] 7,200 mg PO DAILY PRN 03/06/21 [History] Na Phos,M-B/Na Phos,Di-Ba [Fleet Adult] 133 ml RECTAL DAILY PRN 03/06/21 [History] bisacodyL [Dulcolax] 10 mg RECTAL DAILY PRN 03/06/21 [History] Furosemide [Lasix] 20 mg PO DAILY #30 tab 03/13/21 [Rx] Follow up Appointment(s)/Referral(s): Hugo Cordova MD [STAFF PHYSICIAN] - 1 Week Abel Mathews DO [Primary Care Provider] - 1-2 days Danyell Hutchins MD [STAFF PHYSICIAN] - As Needed Discharge Disposition: TRANSFER TO SNF/ECF
[2021-03-14] MEDS ORDERED: PANTOPRAZOLE 40 MG TABLET PO SCH (07:30)
== END 2021-03-13 14:48 | DRG 292 ==
LOC: EC 06:40 → 5NMEDONC 08:13
PROVIDERS: ADMIT Internal Medicine; ATTEND Internal Medicine
PROC: 30233N1 Transfusion of Nonautologous Red Blood Cells into Peripheral Vein, Percutaneous Approach (ICD-10-PCS; principal; 2021-03-10)
DX: I13.0 Hypertensive heart and chronic kidney disease with heart failure and stage 1 through stage 4 chronic kidney disease, or unspecified chronic kidney disease (principal); E87.1 Hypo-osmolality and hyponatremia; I48.21 Permanent atrial fibrillation; I48.92 Unspecified atrial flutter; I50.32 Chronic diastolic (congestive) heart failure; L03.115 Cellulitis of right lower limb; L03.116 Cellulitis of left lower limb; N13.30 Unspecified hydronephrosis; N17.9 Acute kidney failure, unspecified; N18.32 Chronic kidney disease, stage 3b; D63.1 Anemia in chronic kidney disease; E11.22 Type 2 diabetes mellitus with diabetic chronic kidney disease; E11.51 Type 2 diabetes mellitus with diabetic peripheral angiopathy without gangrene; E78.5 Hyperlipidemia, unspecified; E87.5 Hyperkalemia; M10.9 Gout, unspecified; G20 Parkinson's disease; G47.33 Obstructive sleep apnea (adult) (pediatric); I25.2 Old myocardial infarction; J44.9 Chronic obstructive pulmonary disease, unspecified; K57.30 Diverticulosis of large intestine without perforation or abscess without bleeding; Z20.822 Contact with and (suspected) exposure to COVID-19; I25.10 Atherosclerotic heart disease of native coronary artery without angina pectoris; Z86.010 Personal history of colon polyps; R33.9 Retention of urine, unspecified; E86.1 Hypovolemia; Z79.01 Long term (current) use of anticoagulants; Z79.84 Long term (current) use of oral hypoglycemic drugs; Z79.899 Other long term (current) drug therapy; Z82.49 Family history of ischemic heart disease and other diseases of the circulatory system; Z82.5 Family history of asthma and other chronic lower respiratory diseases; Z86.16 Personal history of COVID-19; Z87.891 Personal history of nicotine dependence; Z90.710 Acquired absence of both cervix and uterus; Z95.1 Presence of aortocoronary bypass graft; Z90.89 Acquired absence of other organs; Z88.5 Allergy status to narcotic agent; Z90.49 Acquired absence of other specified parts of digestive tract; Z88.4 Allergy status to anesthetic agent; Z88.8 Allergy status to other drugs, medicaments and biological substances
CPT/HCPCS: 36415; 74176; 80048; 80053; 82272; 82607; 82668; 82728; 82746; 83010; 83540; 83550; 83615; 83921; 85025; 85027; 85610; 85730; 86334; 86335; 86850; 86900; 86901; 86920; 87635; 94760; 99285

== ENCOUNTER 2021-10-22 16:10 | Inpatient (IN) | payer MEDICARE, OTHER ==
--- NOTE | 2021-10-22 16:22 | ED ---
General Adult HPI - General Stated complaint: Weakness Time Seen by Provider: 10/22/21 16:14 Source: patient, RN notes reviewed, old records reviewed Limitations: no limitations - History of Present Illness Initial comments: Patient is a pleasant 81-year-old female residing to the emergency department wi th weakness. Onset of symptoms was mildly couple of days ago however significant today. Patient states she is unable to stand. Patient does occasionally use a walker. No dyspnea. No upper extremity weakness. No confusion or speech problems. Patient believes she has had similar problem previously related to Parkinson's. - Related Data Home Medications Medication Instructions Recorded Confirmed Ezetimibe [Zetia] 10 mg PO DAILY@1800 11/20/13 10/22/21 Lovastatin [Mevacor] 10 mg PO DAILY@1800 11/20/13 10/22/21 Apixaban [Eliquis] 2.5 mg PO BID@0900,1800 02/17/20 10/22/21 Cyanocobalamin [Vitamin B-12] 500 mcg PO HS 02/17/20 10/22/21 Docusate [Colace] 100 mg PO DAILY@1800 02/05/21 10/22/21 Epoetin Obed [Procrit] 10,000 unit SQ TH@0800 02/05/21 10/22/21 Ferrous Sulfate [Iron (65 MG 325 mg PO DAILY@1800 02/05/21 10/22/21 Elemental)] Metoprolol Tartrate [Lopressor] 12.5 mg PO BID@0900,1800 02/05/21 10/22/21 Carbidopa-Levodopa 25-100 mg 1 tab PO TID@0900,1500,2100 02/11/21 10/22/21 [Sinemet 25-100 mg] Aspirin EC [Ecotrin Low Dose] 81 mg PO DAILY 07/19/21 10/22/21 Colchicine [Mitigare] 0.6 mg PO BID@0900,1800 07/19/21 10/22/21 sitaGLIPtin [Januvia] 50 mg PO DAILY 07/19/21 10/22/21 Calcium Carbonate/Vitamin D3 1 tab PO TID@0900,1500,2100 10/22/21 10/22/21 [Calcium 500 mg-Vit D3 5 mcg (200 Unit)] Folic Acid 1 mg PO DAILY 10/22/21 10/22/21 Furosemide [Lasix] 40 mg PO DAILY@1500 10/22/21 10/22/21 Gabapentin [Neurontin] 200 mg PO HS 10/22/21 10/22/21 Previous Rx's Medication Instructions Recorded Gabapentin [Neurontin] 100 mg PO BID@0900,1500 #6 cap 07/23/21 Allergies Allergy/AdvReac Type Severity Reaction Status Date / Time albuterol [From DuoNeb] AdvReac Nausea Verified 10/22/21 18:04 cortisone AdvReac PAIN Verified 10/22/21 18:04 hydrocodone AdvReac Nausea Verified 10/22/21 18:04 ipratropium [From DuoNeb] AdvReac Nausea Verified 10/22/21 18:04 procaine HCl [From Novocain] AdvReac pain Verified 10/22/21 18:04 allergy medicines AdvReac "dries me Uncoded 10/22/21 18:04 out, bloody noses,generalized pain" Review of Systems ROS Statement: Those systems with pertinent positive or pertinent negative responses have been documented in the HPI. ROS Other: All systems not noted in ROS Statement are negative. Constitutional: Denies: fever Eyes: Denies: eye pain ENT: Denies: ear pain Respiratory: Denies: cough, dyspnea Cardiovascular: Denies: chest pain Endocrine: Denies: fatigue Gastrointestinal: Denies: abdominal pain Genitourinary: Denies: dysuria Musculoskeletal: Reports: other (Patient has some mild chronic back pain, unchanged) Skin: Denies: rash Neurological: Reports: as per HPI. Denies: headache, confusion Past Medical History Past Medical History: Atrial Fibrillation, Atrial Flutter, Coronary Artery Disease (CAD), Heart Failure, COPD, Diabetes Mellitus, GERD/Reflux, Hyperlipidemia, Hypertension, Myocardial Infarction ([place]), Musculoskeletal Disorder, Renal Disease, Respiratory Disorder, Sleep Apnea/CPAP/BIPAP, Vascular Disorder Additional Past Medical History / Comment(s): NIDDM type II, neuropathy bilateral legs/feet, CKD stage III, nephrolithiasis, anemia, diastolic CHF, cardiac valve disease, pulmonary htn, home oxygen prn, afib/flutter with RVR, pt states she fell one year ago and suffered 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 Last Myocardial Infarction Date:: 1999 History of Any Multi-Drug Resistant Organisms: None Reported Past Surgical History: Appendectomy, Coronary Bypass/CABG, Heart Catheterization, Hysterectomy, Tonsillectomy Additional Past Surgical History / Comment(s): 1999 CABG 4 vessel, BETHEL/cardioversion, abdominal aortagrams/bilateral runoffs, R atherectomy/PTBA/stent to R SFA, R neck benign lymph node removed, cysto/lit hotripsy/aborted d/t unable to visualize stone, EGD, colonoscopy Past Anesthesia/Blood Transfusion Reactions: Motion Sickness Additional Past Anesthesia/Blood Transfusion Reaction / Comment(s): Pt has motion sickness/clausterphobia. Smoking Status: Former smoker - Past Family History Brother(s) Family Medical History: Cancer Son(s) Family Medical History: Cancer, Myocardial Infarction ([place]) Sister(s) Family Medical History: Cancer Mother Family Medical History: COPD, Myocardial Infarction ([place]) Additional Family Medical History / Comment(s): mother of TN-pt cannot recall at what age. General Exam Limitations: no limitations General appearance: alert, in no apparent distress Head exam: Present: atraumatic, normocephalic Eye exam: Present: normal appearance, PERRL, EOMI ENT exam: Present: normal oropharynx Neck exam: Present: normal inspection Respiratory exam: Present: normal lung sounds bilaterally Cardiovascular Exam: Present: regular rate, normal rhythm GI/Abdominal exam: Present: soft. Absent: tenderness Extremities exam: Present: pedal edema. Absent: calf tenderness Neurological exam: Present: alert, oriented X3, CN II-XII intact Expanded Neurological exam: Present: protecting the airway Speech: Present: fluid speech Cranial nerves: EOM's Intact: Normal Sensory exam: Upper Extremity Light Touch: Normal, Lower Extremity Light Touch: Normal Motor strength exam: RUE: 5, LUE: 5, RLE: 2/1, LLE: 2/1 Eye Response: (4) open spontaneously Motor Response: (6) obeys commands Verbal Response: (5) oriented Psychiatric exam: Present: normal affect, normal mood Skin exam: Present: normal color Course Vital Signs 10/22/21 10/22/21 16:10 18:00 Temperature 97.5 F L Pulse Rate 56 L 57 L Respiratory 18 20 Rate Blood Pressure 144/65 134/58 O2 Sat by Pulse 96 97 Oximetry EKG Findings - EKG Comments: EKG Findings:: Sinus rhythm 60. MA 101. QRS 92. QT 379. QTC 379. Normal axis. PVC is present. T-wave inversion V3 through V6. Normal QRS. Medical Decision Making - Medical Decision Making Patient reevaluated and resting comfortably in bed. A tobias updated on results and plan. Patient does have evidence of urinary tract infection with weakness, unable to ambulate. Case was discussed with Dr. Collazo, who will admit covering Dr. Lu's better. - Lab Data Result diagrams: 10/22/21 16:27 10/22/21 16:27 Lab Results 10/22/21 10/22/21 10/22/21 Range/Units 16:27 16:27 16:27 WBC 3.9 (3.8-10.6) k/uL RBC 2.88 L (3.80-5.40) m/uL Hgb 9.8 L (11.4-16.0) gm/dL Hct 29.4 L (34.0-46.0) % MCV 102.1 H (80.0-100.0) fL MCH 33.9 (25.0-35.0) pg MCHC 33.3 (31.0-37.0) g/dL RDW 20.3 H (11.5-15.5) % Plt Count 162 (150-450) k/uL MPV 8.0 Neutrophils % 73 % Lymphocytes % 11 % Monocytes % 10 % Eosinophils % 2 % Basophils % 0 % Neutrophils # 2.9 (1.3-7.7) k/uL Lymphocytes # 0.4 L (1.0-4.8) k/uL Monocytes # 0.4 (0-1.0) k/uL Eosinophils # 0.1 (0-0.7) k/uL Basophils # 0.0 (0-0.2) k/uL Poikilocytosis Slight Anisocytosis Moderate Macrocytosis Moderate PT 11.1 (9.0-12.0) sec INR 1.0 (<1.2) APTT 24.2 (22.0-30.0) sec Sodium (137-145) mmol/L Potassium (3.5-5.1) mmol/L Chloride (98-107) mmol/L Carbon Dioxide (22-30) mmol/L Anion Gap mmol/L BUN (7-17) mg/dL Creatinine (0.52-1.04) mg/dL Est GFR (CKD-EPI)AfAm (>60 ml/min/1.73 sqM) Est GFR (CKD-EPI)NonAf (>60 ml/min/1.73 sqM) Glucose (74-99) mg/dL Plasma Lactic Acid Roderick (0.7-2.0) mmol/L Calcium (8.4-10.2) mg/dL Magnesium (1.6-2.3) mg/dL Total Bilirubin (0.2-1.3) mg/dL AST (14-36) U/L ALT (4-34) U/L Alkaline Phosphatase (38-126) U/L Troponin I (0.000-0.034) ng/mL Total Protein (6.3-8.2) g/dL Albumin (3.5-5.0) g/dL TSH (0.465-4.680) mIU/L Free T4 (0.78-2.19) ng/dL Free T3 pg/mL (2.8-5.3) pg/ml Urine Color Light Yellow Urine Appearance Cloudy H (Clear) Urine pH 5.5 (5.0-8.0) Ur Specific [place] 1.008 (1.001-1.035) Urine Protein Trace H (Negative) Urine Glucose (UA) Negative (Negative) Urine Ketones Negative (Negative) Urine Blood Moderate H (Negative) Urine Nitrite Positive H (Negative) Urine Bilirubin Negative (Negative) Urine Urobilinogen <2.0 (<2.0) mg/dL Ur Leukocyte Esterase Large H (Negative) Urine RBC 7 H (0-5) /hpf Urine WBC >182 H (0-5) /hpf Urine WBC Clumps Many H (None) /hpf Urine Bacteria Occasional H (None) /hpf Urine Mucus Rare H (None) /hpf 10/22/21 10/22/21 10/22/21 Range/Units 16:27 16:27 16:27 WBC (3.8-10.6) k/uL RBC (3.80-5.40) m/uL Hgb (11.4-16.0) gm/dL Hct (34.0-46.0) % MCV (80.0-100.0) fL MCH (25.0-35.0) pg MCHC (31.0-37.0) g/dL RDW (11.5-15.5) % Plt Count (150-450) k/uL MPV Neutrophils % % Lymphocytes % % Monocytes % % Eosinophils % % Basophils % % Neutrophils # (1.3-7.7) k/uL Lymphocytes # (1.0-4.8) k/uL Monocytes # (0-1.0) k/uL Eosinophils # (0-0.7) k/uL Basophils # (0-0.2) k/uL Poikilocytosis Anisocytosis Macrocytosis PT (9.0-12.0) sec INR (<1.2) APTT (22.0-30.0) sec Sodium 135 L (137-145) mmol/L Potassium 3.1 L (3.5-5.1) mmol/L Chloride 108 H (98-107) mmol/L Carbon Dioxide 20 L (22-30) mmol/L Anion Gap 7 mmol/L BUN 40 H (7-17) mg/dL Creatinine 1.80 H (0.52-1.04) mg/dL Est GFR (CKD-EPI)AfAm 30 (>60 ml/min/1.73 sqM) Est GFR (CKD-EPI)NonAf 26 (>60 ml/min/1.73 sqM) Glucose 82 (74-99) mg/dL Plasma Lactic Acid Roderick 0.8 (0.7-2.0) mmol/L Calcium 8.8 (8.4-10.2) mg/dL Magnesium 1.2 L (1.6-2.3) mg/dL Total Bilirubin 0.3 (0.2-1.3) mg/dL AST 26 (14-36) U/L ALT 6 (4-34) U/L Alkaline Phosphatase 73 (38-126) U/L Troponin I 0.015 (0.000-0.034) ng/mL Total Protein 6.2 L (6.3-8.2) g/dL Albumin 3.2 L (3.5-5.0) g/dL TSH 1.800 (0.465-4.680) mIU/L Free T4 1.06 (0.78-2.19) ng/dL Free T3 pg/mL 2.7 L (2.8-5.3) pg/ml Urine Color Urine Appearance (Clear) Urine pH (5.0-8.0) Ur Specific [place] (1.001-1.035) Urine Protein (Negative) Urine Glucose (UA) (Negative) Urine Ketones (Negative) Urine Blood (Negative) Urine Nitrite (Negative) Urine Bilirubin (Negative) Urine Urobilinogen (<2.0) mg/dL Ur Leukocyte Esterase (Negative) Urine RBC (0-5) /hpf Urine WBC (0-5) /hpf Urine WBC Clumps (None) /hpf Urine Bacteria (None) /hpf Urine Mucus (None) /hpf - Radiology Data Radiology results: report reviewed (CT brain reveals no acute process), image reviewed (Chest x-ray shows no acute process) Disposition Clinical Impression: Unable to ambulate, Urinary tract infection Disposition: ADMITTED IP TO THIS HOSP Is patient prescribed a controlled substance at d/c from ED?: No Referrals: Aaliyah Evans MD [Primary Care Provider] - 1-2 days Time of Disposition: 19:33
[2021-10-22 16:55] LABS: Anisocytosis Moderate; Basophils % (A) 0 %; Eosinophils # (A) 0.1 k/uL (0-0.7); Eosinophils % (A) 2 %; HCT 29.4 % (34.0-46.0); HGB 9.8 gm/dL (11.4-16.0); Lymphocytes # (A) 0.4 k/uL (1.0-4.8); Lymphocytes % (A) 11 %; MCH 33.9 pg (25.0-35.0); MCHC 33.3 g/dL (31.0-37.0); MCV 102.1 fL (80.0-100.0); Macrocytosis Moderate; Monocytes # (A) 0.4 k/uL (0-1.0); Monocytes % (A) 10 %; Neutrophils # (A) 2.9 k/uL (1.3-7.7); Neutrophils % (A) 73 %; Platelet Count 162 k/uL (150-450); Poikilocytosis Slight; RBC 2.88 m/uL (3.80-5.40); RDW 20.3 % (11.5-15.5); WBC 3.9 k/uL (3.8-10.6)
[2021-10-22 17:06] LABS: Partial Thromboplastin Time 24.2 sec (22.0-30.0); Prothrombin Time 11.1 sec (9.0-12.0)
[2021-10-22 17:08] LABS: Albumin 3.2 g/dL (3.5-5.0); Calcium 8.8 mg/dL (8.4-10.2); Magnesium 1.2 mg/dL (1.6-2.3); Potassium 3.1 mmol/L (3.5-5.1); Total Bilirubin 0.3 mg/dL (0.2-1.3); Total Protein 6.2 g/dL (6.3-8.2)
[2021-10-22 17:24] LABS: T4, Free (Free Thyroxine) 1.06 ng/dL (0.78-2.19)
--- NOTE | 2021-10-22 18:01 | XR ---
EXAMINATION: XR chest 2V DATE AND TIME: 10/22/2021 5:19 PM CLINICAL INDICATION: Trauma; Weakness TECHNIQUE: The frontal radiograph appears AP and is RPO-rotated. Lateral view obtained. COMPARISON: 03/03/2021 FINDINGS: The lungs appear well-expanded and clear. Interstitial lung changes redemonstrated. The pleural spaces are negative. Sternal sutures and mediastinal clips noted. The cardiac silhouette is mildly enlarged, unchanged. Th e remainder of the mediastinal silhouette is unremarkable. The skeletal structures and soft tissues are negative for acute findings. IMPRESSION: No acute radiographic process.
--- NOTE | 2021-10-22 18:06 | CT ---
EXAMINATION TYPE: CT brain wo con DATE OF EXAM: 10/22/2021 HISTORY: Weakness. CT DLP: 1100.4 mGycm. Automated Exposure Control for Dose Reduction was Utilized. TECHNIQUE: CT scan of the head is performed without contrast. COMPARISON: 04/29/2020 FINDINGS: There is no acute intracranial hemorrhage or midline shift identified. There is diffuse v entricular and sulcal prominence consistent with diffuse age-related cerebral atrophy. There is low- attenuation in the periventricular white matter consistent with chronic small vessel ischemic change. The globes are intact and the visualized sinuses are clear. IMPRESSION: No acute intracranial hemorrhage or midline shift. There is diffuse age-related cerebra l atrophy and chronic small vessel ischemic change noted.
[2021-10-22 19:01] LABS: Appearance,Urine Cloudy (Clear); Bacteria,Urine Occasional /hpf; Bilirubin,Urine Negative (Negative); Blood,Urine Moderate (Negative); Color,Urine Light Yellow; Glucose,Urine (UA) Negative (Negative); Ketones,Urine Negative (Negative); Leukocyte Esterase,Urine Large (Negative); Mucus,Urine Rare /hpf; Nitrite,Urine Positive (Negative); PH, Urine 5.5 (5.0-8.0); Protein,Urine Trace (Negative); RBC,Urine 7 /hpf (0-5); Specific Gravity,Urine 1.008 (1.001-1.035); Urobilinogen,Urine <2.0 mg/dL (<2.0); WBC,Urine >182 /hpf (0-5)
[2021-10-22] MEDS ORDERED: NALOXONE 0.4 MG/ML 1 ML VIAL IV PRN (19:34)
[2021-10-22] MEDS ORDERED: POTASSIUM CHLORIDE ER 20 MEQ TAB.ER PO STA (19:41)
[2021-10-22] MEDS ORDERED: LINAGLIPTIN 5 MG TABLET PO SCH (19:45)
--- NOTE | 2021-10-23 02:54 | P.HPIM ---
History of Present Illness H&P Date: 10/22/21 Chief Complaint: Generalized weakness 81-year-old female with multiple comorbidities patient has A. fib, Parkinson disease, diabetes mellitus, Patient comes in with main concern of progressive generalized weakness she got to the point where she cannot stand up from sitting position. She denies any focal neuro deficits however she feels overall weak and fatigued. Denies any fevers or chills denies any nausea vomiting chest pain trouble breathing denies any coughing denies any abdominal pain. However she does report frequent urination and dysuria. She thinks some believes that she has urinary tract infection. She also reports having decub which [facility] she believes it's healing. She denies any GI bleeding denies any recent falls she is on blood thinner for A. fib. Workup in the ED showed chronic stable anemia, showed electrolyte imbalance with hypokalemia hypomagnesemia Showed CK D stage IV that stable CT of the brain was negative for any acute pathology EKG showed junctional rhythm with diffuse precordial T wave inversion and frequent PVCs. She denies any chest pain or trouble breathing again. Review of Systems Pertinent positives as noted in HPI. All other systems were reviewed and are negative Past Medical History Past Medical History: Atrial Fibrillation, Atrial Flutter, Coronary Artery Disease (CAD), Heart Failure, COPD, Diabetes Mellitus, GERD/Reflux, Hyperlipidemia, Hypertension, Myocardial Infarction (AL), Musculoskeletal Disorder, Renal Disease, Respiratory Disorder, Sleep Apnea/CPAP/BIPAP, Vascular Disorder Additional Past Medical History / Comment(s): NIDDM type II, neuropathy bilateral legs/feet, CKD stage III, nephrolithiasis, anemia, diastolic CHF, cardiac valve disease, pulmonary htn, home oxygen prn, afib/flutter with RVR, pt states she fell one year ago and suffered 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 Last Myocardial Infarction Date:: 1999 History of Any Multi-Drug Resistant Organisms: None Reported Past Surgical History: Appendectomy, Coronary Bypass/CABG, Heart Catheterization, Hysterectomy, Tonsillectomy Additional Past Surgical History / Comment(s): 2000 CABG 4 vessel, TE E/cardioversion, abdominal aortagrams/bilateral runoffs, R atherectomy/PTBA/stent to R SFA, R neck benign lymph node removed, cysto/lithotripsy/aborted d/t unable to visualize stone, EGD, colonoscopy Past Anesthesia/Blood Transfusion Reactions: Motion Sickness Additional Past Anesthesia/Blood Transfusion Reaction / Comment(s): Pt has motion sickness/clausterphobia. Smoking Status: Former smoker - Past Family History Brother(s) Family Medical History: Cancer Son(s) Family Medical History: Cancer, Myocardial Infarction (AL) Sister(s) Family Medical History: Cancer Mother Family Medical History: COPD, Myocardial Infarction (AL) Additional Family Medical History / Comment(s): mother of AL-pt cannot recall at what age. Medications and Allergies Home Medications Medication Instructions Recorded Confirmed Type Ezetimibe [Zetia] 10 mg PO DAILY@1800 11/20/13 10/22/21 History Lovastatin [Mevacor] 10 mg PO DAILY@1800 11/20/13 10/22/21 History Apixaban [Eliquis] 2.5 mg PO BID@0900,1800 02/17/20 10/22/21 History Cyanocobalamin [Vitamin B-12] 500 mcg PO HS 02/17/20 10/22/21 History Docusate [Colace] 100 mg PO DAILY@1800 02/05/21 10/22/21 History Epoetin Obed [Procrit] 10,000 unit SQ TH@0800 02/05/21 10/22/21 History Ferrous Sulfate [Iron (65 MG 325 mg PO DAILY@1800 02/05/21 10/22/21 History Elemental)] Metoprolol Tartrate [Lopressor] 12.5 mg PO BID@0900,1800 02/05/21 10/22/21 History Carbidopa-Levodopa 25-100 mg 1 tab PO TID@0900,1500,2100 02/11/21 10/22/21 History [Sinemet 25-100 mg] Aspirin EC [Ecotrin Low Dose] 81 mg PO DAILY 07/19/21 10/22/21 History Colchicine [Mitigare] 0.6 mg PO BID@0900,1800 07/19/21 10/22/21 History sitaGLIPtin [Januvia] 50 mg PO DAILY 07/19/21 10/22/21 History Gabapentin [Neurontin] 100 mg PO BID@0900,1500 #6 cap 07/23/21 10/22/21 Rx Calcium Carbonate/Vitamin D3 1 tab PO TID@0900,1500,2100 10/22/21 10/22/21 History [Calcium 500 mg-Vit D3 5 mcg (200 Unit)] Folic Acid 1 mg PO DAILY 10/22/21 10/22/21 History Furosemide [Lasix] 40 mg PO DAILY@1500 10/22/21 10/22/21 History Gabapentin [Neurontin] 200 mg PO HS 10/22/21 10/22/21 History Allergies Allergy/AdvReac Type Severity Reaction Status Date / Time albuterol [From DuoNeb] AdvReac Nausea Verified 10/22/21 18:04 cortisone AdvReac PAIN Verified 10/22/21 18:04 hydrocodone AdvReac Nausea Verified 10/22/21 18:04 ipratropium [From DuoNeb] AdvReac Nausea Verified 10/22/21 18:04 procaine HCl [From Novocain] AdvReac pain Verified 10/22/21 18:04 allergy medicines AdvReac "dries me Uncoded 10/22/21 18:04 out, bloody noses,generalized pain" Physical Exam Vitals: Vital Signs Temp Pulse Resp BP Pulse Ox 10/22/21 18:00 57 L 20 134/58 97 10/22/21 16:10 97.5 F L 56 L 18 144/65 96 Intake and Output 10/22/21 10/22/21 10/22/21 06:59 14:59 22:59 Other: Weight 71.668 kg 1Constitutional: No acute distress, conversant, pleasant Eyes: Anicteric sclerae, moist conjunctiva, Pupils equal round reactive to light ENMT: NC/AT Oropharynx clear, no erythema, or exudates Neck: Supple, no masses, or JVD No carotid bruits No thyromegaly Lungs: Clear to auscultation Clear to percussion Normal respiratory effort, no accessory muscle use Cardiovascular: Heart regular in rate and rhythm, No murmurs, gallops, or rubs No peripheral edema Abdominal: Soft Nontender, no guarding, rebound or rigidity Abdomen moving with respiration Normoactive bowel sounds No hepatomegaly, No splenomegaly No palpable mass No abdominal wall hernia noted Skin: Normal temperature, tone, texture, turgor No induration No subcutaneous nodules No rash, lesions No ulcers Extremities: No digital cyanosis No clubbing Pedal pulses intact and symmetrical Radial pulses intact and symmetrical No calf tenderness Psychiatric: Alert and oriented to person, place and time Appropriate affect fair judgement Neuro Muscles Strength 4/5 in 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 Sensation to light touch grossly present throughout Cranial nerves II-XII grossly intact No focal sensory deficits Lymphatics: no palpable cervical or supraclavicular , or inguinal lymph nodes Results CBC & Chem 7: 10/22/21 16:27 10/22/21 16:27 Labs: Abnormal Lab Results - Last 24 Hours (Table) 10/22/21 10/22/21 10/22/21 Range/Units 16:27 16:27 16:27 RBC 2.88 L (3.80-5.40) m/uL Hgb 9.8 L (11.4-16.0) gm/dL Hct 29.4 L (34.0-46.0) % MCV 102.1 H (80.0-100.0) fL RDW 20.3 H (11.5-15.5) % Lymphocytes # 0.4 L (1.0-4.8) k/uL Sodium 135 L (137-145) mmol/L Potassium 3.1 L (3.5-5.1) mmol/L Chloride 108 H (98-107) mmol/L Carbon Dioxide 20 L (22-30) mmol/L BUN 40 H (7-17) mg/dL Creatinine 1.80 H (0.52-1.04) mg/dL Magnesium 1.2 L (1.6-2.3) mg/dL Total Protein 6.2 L (6.3-8.2) g/dL Albumin 3.2 L (3.5-5.0) g/dL Free T3 pg/mL 2.7 L (2.8-5.3) pg/ml Urine Appearance Cloudy H (Clear) Urine Protein Trace H (Negative) Urine Blood Moderate H (Negative) Urine Nitrite Positive H (Negative) Ur Leukocyte Esterase Large H (Negative) Urine RBC 7 H (0-5) /hpf Urine WBC >182 H (0-5) /hpf Urine WBC Clumps Many H (None) /hpf Urine Bacteria Occasional H (None) /hpf Urine Mucus Rare H (None) /hpf Assessment and Plan Assessment: Generalized progressive weakness Urinary tract infection follow-up cultures Patient initiated on antibiotics Gentle IV fluid hydration Brain CAT scan was negative for any acute pathology New onset precordial T wave inversion with junctional rhythm and PVCs Denies chest pain or shortness of breath Cardiology consult for evaluation Chronic kidney disease stage IV Electrolyte imbalance Replace magnesium and potassium Follow-up level Monitor urine output Monitor renal function Discontinue diuretics Chronic anemia stable Denies any GI bleeding Chronic conditions Atrial fibrillation on Vera Eben Hypertension controlled Parkinson disease Hyperlipidemia Diabetes mellitus insulin sliding scale Full code DVT prophylaxis patient is on Elquis for A. fib
[2021-10-23] MEDS: CYANOCOBALAMIN 500 MCG TAB PO SCH ×2 (04:52→21:06)
[2021-10-23] MEDS: SODIUM CHLORIDE 0.9% 1,000 ML IV SCH ×3 (04:52→23:31)
[2021-10-23] MEDS: CALCIUM CARB-VIT D 500 MG-5 MCG TAB PO SCH ×4 (04:52→21:05)
[2021-10-23] MEDS: CARBIDOPA-LEVODOPA 25-100 MG 1 EACH TAB PO SCH ×4 (04:52→21:05)
[2021-10-23] MEDS: MAGNESIUM OXIDE 400 MG TAB PO SCH ×3 (04:55→21:05)
[2021-10-23] MEDS: GABAPENTIN 100 MG CAP PO SCH ×5 (04:55→21:07)
[2021-10-23] MEDS: MAGNESIUM SULFATE-D5W PMX 1 GM in DEXTROSE/WATER 1 100ML.BAG IVPB SCH ×2 (05:01→06:08)
[2021-10-23 08:15] LABS: Glucose,Whole Blood 147 mg/dL (70-110)
[2021-10-23 08:44] LABS: Basophils # (A) 0.01 X 10*3/uL (0.00-0.10); Basophils % (A) 0.2 %; Eosinophils # (A) 0.04 X 10*3/uL (0.04-0.35); Eosinophils % (A) 0.9 %; HCT 27.6 % (37.2-46.3); HGB 8.7 g/dL (12.0-15.0); Immature Grans, Automated 0.7 %; Lymphocytes # (A) 0.83 X 10*3/uL (0.90-5.00); Lymphocytes % (A) 19.6 %; MCH 32.7 pg (27.0-32.0); MCHC 31.5 g/dL (32.0-37.0); MCV 103.8 fL (80.0-97.0); Mean Platelet Volume 11.8 fL (9.5-12.2); Monocytes # (A) 0.75 X 10*3/uL (0.20-1.00); Monocytes % (A) 17.7 %; NRBC Per 100 WBC 0 /100 WBCS (0.0-0.0); Neutrophils # (A) 2.58 X 10*3/uL (1.80-7.70); Neutrophils % (A) 60.9 %; Platelet Count 163 X 10*3/uL (140-440); RBC 2.66 X 10*6/uL (4.10-5.20); WBC 4.24 X 10*3/uL (4.50-10.00)
[2021-10-23 09:12] LABS: African American GFR (CKD) 24.8 (60.0-200.0); Albumin 3.6 g/dL (3.8-4.9); Albumin/Globulin Ratio 1.2 (1.60-3.17); Anion Gap 13.5 mmol/L (10.00-18.00); BUN/Creat Ratio 19.19 Ratio (12.00-20.00); Blood Urea Nitrogen 40.3 mg/dL (9.0-27.0); Calcium 10.3 mg/dL (8.7-10.3); Carbon Dioxide 22.5 mmol/L (20.0-27.5); Magnesium 2.3 mg/dL (1.5-2.4); Non-African American GFR(CKD) 21.4 (60.0-200.0); Potassium 4.6 mmol/L (3.5-5.5); Total Bilirubin 0.3 mg/dL (0.30-1.20); Total Protein 6.6 g/dL (6.2-8.2)
[2021-10-23] MEDS: INSULIN ASPART (NovoLOG) 100 UNIT/ML VIAL SQ SCH ×4 (09:59→21:07)
[2021-10-23] MEDS: ASPIRIN 81 MG PO SCH (09:59)
[2021-10-23] MEDS: FOLIC ACID 1 MG TAB PO SCH (09:59)
[2021-10-23] MEDS: COLCHICINE 0.6 MG EACH PO SCH ×2 (10:00→18:26)
[2021-10-23] MEDS: METOPROLOL TARTRATE 12.5 MG TAB PO SCH ×2 (10:00→18:27)
[2021-10-23] MEDS: APIXABAN 2.5 MG TABLET PO SCH ×2 (10:00→21:05)
[2021-10-23 11:40] LABS: Glucose,Whole Blood 180 mg/dL (70-110)
--- NOTE | 2021-10-23 12:27 | P.CRDCN ---
History of Present Illness History of present illness: HISTORY OF PRESENTING ILLNESS This is a pleasant 81 year old female with a past medical history of coronary artery disease status post prior CABG, PAD with previous stenting last in 01/2020, hypertension, permanent atrial fibrillation on Eliquis, dyslipidemia, type 2 diabetes, GERD, obstructive sleep apnea, former smoker, Parksinson's. Patient follows in the office with Dr. Burnett. we have been asked to see in consultation for precordial T-wave inversion. These EKG T wave inversions are not new, EKGs with similar findings in 2019, 2018, 2017 and 2015. Patient presented to the ER with complaints of generalized weakness and her bilateral legs and feet. She states it progressively has been getting worse over a few days. she had difficulty standing and walking. She denies any chest pain, shortness of breath, lightheadedness, dizziness, palpitations, syncope or near syncope. She denies any abdominal pain, nausea, vomiting. DIAGNOSTICS EKG reveals atrial fibrillation, heart rate 60, non-specific STT wave abnormalities in the anterior leads, prior EKGs with similar findings Telemetry tracings indicate atrial fibrillation with controlled ventricular rates Chest xray no acute cardiopulmonary process CT brain reported with no acute intracranial abnormalities Laboratory reviewed, WBC 4.2, Hgb 8.7, Plt 163, Sodium 134, K 4.6, BUN 40, sCr 2.1. UA positive of UTI Current home cardiac medications include metoprolol tartrarte 12.5mg BID, Lasix 50mg daily, Zetia 10, Eliquis 2.5mg BID, aspirin 81mg daily Echo 02/2021 EF 60-65% mild MR, mild TR, moderate pulmonary hypertension RVSP 46mmHg REVIEW OF SYSTEMS At the time of my exam: CONSTITUTIONAL: Denies fever or chills. CARDIOVASCULAR: Denies chest pain, shortness of breath, orthopnea, PND or palpitations. RESPIRATORY: Denies cough. GASTROINTESTINAL: Denies abdominal pain, diarrhea, constipation, nausea or vomiting. MUSCULOSKELETAL: Denies myalgias. NEUROLOGIC: Denies numbness, tingling, headacbe or weakness. ENDOCRINE: Denies fatigue, weight change, polydipsia or polyurina. GENITOURINARY: Denies burning, hematuria or urgency with micturation. HEMATOLOGIC: Denies history of anemia or bleeding. PHYSICAL EXAMINATION Vitals reviewed CONSTITUTIONAL: No apparent distress. HEENT: Head is normocephalic. Pupils are equal, round. Sclerae anicteric. Mucous membranes of the mouth are moist. No JVD. No carotid bruit. CHEST EXAMINATION: Lungs are clear to auscultation. No chest wall tenderness is noted on palpation or with deep breathing. HEART EXAMINATION: Irregular rate and rhythm. S1, S2 heard. Systolic murmur noted ABDOMEN: Soft, nontender. Positive bowel sounds. EXTREMITIES: Decreased pedal pulses, lower extremity erythema noted L > R. Trace bilateral lower extremity edema, tenderness to palpation to bottom of feet NEUROLOGIC EXAMINATION: Patient is awake, alert and oriented x3. ASSESSMENT Generalized bilateral lower extremity pain, redness and weakness Coronary artery disease status post prior CABG Peripheral artery disease previous stenting last in 01/2020 Hypertension Permanent atrial fibrillation on Eliquis Dyslipidemia Type 2 diabetes GERD Obstructive sleep apnea Former smoker Parksinson's PLAN EKG T wave inversions are not new, EKGs with similar findings in 2019, 2018, 2016 and 2014 Check 2D echocardiogram Continue home cardiac medications Rest of management per primary Close follow up outpatient with Dr. Burnett, follow up appointment made on 10/30 Nurse practitioner note has been reviewed by physician. Signing provider agrees with the documented findings, assessment, and plan of care. Past Medical History Past Medical History: Atrial Fibrillation, Atrial Flutter, Coronary Artery Disease (CAD), Heart Failure, COPD, Diabetes Mellitus, GERD/Reflux, Hyperlipidemia, Hypertension, Myocardial Infarction (AL), Musculoskeletal Disorder, Renal Disease, Respiratory Disorder, Sleep Apnea/CPAP/BIPAP, Vascular Disorder Additional Past Medical History / Comment(s): NIDDM type II, neuropathy bilateral legs/feet, CKD stage III, nephrolithiasis, anemia, diastolic CHF, cardiac valve disease, pulmonary htn, home oxygen prn, afib/flutter with RVR, pt states she fell one year ago and suffered 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 Last Myocardial Infarction Date:: 1999 History of Any Multi-Drug Resistant Organisms: None Reported Past Surgical History: Appendectomy, Coronary Bypass/CABG, Heart Catheterization, Hysterectomy, Tonsillectomy Additional Past Surgical History / Comment(s): 1999 CABG 4 vessel, TE E/cardioversion, abdominal aortagrams/bilateral runoffs, R atherectomy/PTBA/stent to R SFA, R neck benign lymph node removed, cysto/lithotripsy/aborted d/t unable to visualize stone, EGD, colonoscopy Past Anesthesia/Blood Transfusion Reactions: Motion Sickness Additional Past Anesthesia/Blood Transfusion Reaction / Comment(s): Pt has motion sickness/clausterphobia. Smoking Status: Former smoker - Past Family History Brother(s) Family Medical History: Cancer Son(s) Family Medical History: Cancer, Myocardial Infarction (AL) Sister(s) Family Medical History: Cancer Mother Family Medical History: COPD, Myocardial Infarction (AL) Additional Family Medical History / Comment(s): mother of AL-pt cannot recall at what age. Medications and Allergies Home Medications Medication Instructions Recorded Confirmed Type Ezetimibe [Zetia] 10 mg PO DAILY@1800 11/20/13 10/22/21 History Lovastatin [Mevacor] 10 mg PO DAILY@1800 11/20/13 10/22/21 History Apixaban [Eliquis] 2.5 mg PO BID@0900,1800 02/17/20 10/22/21 History Cyanocobalamin [Vitamin B-12] 500 mcg PO HS 02/17/20 10/22/21 History Docusate [Colace] 100 mg PO DAILY@1800 02/05/21 10/22/21 History Epoetin Obed [Procrit] 10,000 unit SQ TH@0800 02/05/21 10/22/21 History Ferrous Sulfate [Iron (65 MG 325 mg PO DAILY@1800 02/05/21 10/22/21 History Elemental)] Metoprolol Tartrate [Lopressor] 12.5 mg PO BID@0900,1800 02/05/21 10/22/21 History Carbidopa-Levodopa 25-100 mg 1 tab PO TID@0900,1500,2100 02/11/21 10/22/21 History [Sinemet 25-100 mg] Aspirin EC [Ecotrin Low Dose] 81 mg PO DAILY 07/19/21 10/22/21 History Colchicine [Mitigare] 0.6 mg PO BID@0900,1800 07/19/21 10/22/21 History sitaGLIPtin [Januvia] 50 mg PO DAILY 07/19/21 10/22/21 History Gabapentin [Neurontin] 100 mg PO BID@0900,1500 #6 cap 07/23/21 10/22/21 Rx Calcium Carbonate/Vitamin D3 1 tab PO TID@0900,1500,2100 10/22/21 10/22/21 History [Calcium 500 mg-Vit D3 5 mcg (200 Unit)] Folic Acid 1 mg PO DAILY 10/22/21 10/22/21 History Furosemide [Lasix] 40 mg PO DAILY@1500 10/22/21 10/22/21 History Gabapentin [Neurontin] 200 mg PO HS 10/22/21 10/22/21 History Allergies Allergy/AdvReac Type Severity Reaction Status Date / Time albuterol [From DuoNeb] AdvReac Nausea Verified 10/22/21 18:04 cortisone AdvReac PAIN Verified 10/22/21 18:04 hydrocodone AdvReac Nausea Verified 10/22/21 18:04 ipratropium [From DuoNeb] AdvReac Nausea Verified 10/22/21 18:04 procaine HCl [From Novocain] AdvReac pain Verified 10/22/21 18:04 allergy medicines AdvReac "dries me Uncoded 10/22/21 18:04 out, bloody noses,generalized pain" Physical Exam Vitals: Vital Signs Temp Pulse Pulse Resp BP BP Pulse Ox 10/23/21 07:45 98.5 F 71 17 128/66 93 L 10/22/21 23:08 98.4 F 73 16 121/69 93 L 10/22/21 23:07 98.4 F 73 16 121/69 93 L 10/22/21 18:00 57 L 20 134/58 97 10/22/21 16:10 97.5 F L 56 L 18 144/65 96 Intake and Output 10/22/21 10/23/21 10/23/21 22:59 06:59 14:59 Intake Total 480 Output Total 200 Balance 280 Intake: Oral 480 Output: Urine 200 Other: # Voids 1 Weight 71.668 kg 71.668 kg Results 10/23/21 06:19 10/23/21 06:19 Cardiac Enzymes 10/22/21 10/22/21 10/23/21 Range/Units 16:27 16:27 06:19 AST 26 32 (14-36) U/L Troponin I 0.015 (0.000-0.034) ng/mL Coagulation 10/22/21 Range/Units 16:27 PT 11.1 (9.0-12.0) sec APTT 24.2 (22.0-30.0) sec CBC 10/22/21 10/23/21 Range/Units 16:27 06:19 WBC 3.9 4.24 L (3.8-10.6) k/uL RBC 2.88 L 2.66 L (3.80-5.40) m/uL Hgb 9.8 L 8.7 L (11.4-16.0) gm/dL Hct 29.4 L 27.6 L (34.0-46.0) % Plt Count 162 163 (150-450) k/uL Comprehensive Metabolic Panel 10/22/21 10/23/21 Range/Units 16:27 06:19 Sodium 135 L 134 L (137-145) mmol/L Potassium 3.1 L 4.6 (3.5-5.1) mmol/L Chloride 108 H 98 (98-107) mmol/L Carbon Dioxide 20 L 22.5 (22-30) mmol/L BUN 40 H 40.3 H (7-17) mg/dL Creatinine 1.80 H 2.1 H (0.52-1.04) mg/dL Glucose 82 127 H (74-99) mg/dL Calcium 8.8 10.3 (8.4-10.2) mg/dL AST 26 32 (14-36) U/L ALT 6 8 (4-34) U/L Alkaline Phosphatase 73 80 (38-126) U/L Total Protein 6.2 L 6.6 (6.3-8.2) g/dL Albumin 3.2 L 3.6 L (3.5-5.0) g/dL Current Medications Generic Name Dose Route Start Last Admin Trade Name Freq PRN Reason Stop Dose Admin Apixaban 2.5 mg 10/23/21 09:00 10/23/21 10:00 Apixaban 2.5 Mg Tablet PO 2.5 mg BID TODD Administration Protocol Aspirin 81 mg 10/23/21 09:00 10/23/21 09:59 Aspirin 81 Mg PO 81 mg DAILY TODD Administration Atorvastatin Calcium 10 mg 10/23/21 18:00 Atorvastatin 10 Mg Tab PO DAILY@1800 [facility] Calcium Carbonate 1 each 10/22/21 21:00 10/23/21 09:59 Calcium Carb-Vit D 500 Mg-5 Mcg Tab PO 1 each TID@0900,1500,2100 TODD Administration Carbidopa/Levodopa 1 each 10/22/21 21:00 10/23/21 10:00 Carbidopa-Levodopa 25-100 Mg 1 Each Tab PO 1 each TID@0900,1500,2100 [facility] Administration Colchicine 0.6 mg 10/23/21 09:00 10/23/21 10:00 Colchicine 0.6 Mg Each PO 0.6 mg BID@0900,1800 [facility] Administration Cyanocobalamin 500 mcg 10/22/21 21:00 10/23/21 04:52 Cyanocobalamin 500 Mcg Tab PO Not Given HS [facility] Darbepoetin Obed 25 mcg 10/29/21 08:00 Darbepoetin Obed 25 Mcg/0.42 Ml Syringe SQ TH@0800 [facility] Docusate Sodium 100 mg 10/23/21 18:00 Docusate 100 Mg Cap PO DAILY@1800 [facility] Ezetimibe 10 mg 10/23/21 18:00 Ezetimibe 10 Mg Tab PO DAILY@1800 [facility] Ferrous Sulfate 325 mg 10/23/21 18:00 Ferrous Sulfate 325 Mg Tab PO DAILY@1800 [facility] Folic Acid 1 mg 10/23/21 09:00 10/23/21 09:59 Folic Acid 1 Mg Tab PO 1 mg DAILY TODD Administration Gabapentin 200 mg 10/22/21 21:00 10/23/21 04:55 Gabapentin 100 Mg Cap PO Not Given HS [facility] Gabapentin 100 mg 10/23/21 09:00 10/23/21 10:04 Gabapentin 100 Mg Cap PO Not Given BID@0900,1500 [facility] Ceftriaxone Sodium 1 gm/ 50 mls @ 100 mls/hr 10/22/21 19:40 10/23/21 09:58 Sodium Chloride IVPB 100 mls/hr Q12HR TODD Administration Protocol Sodium Chloride 1,000 mls @ 75 mls/hr 10/22/21 19:45 10/23/21 10:42 Saline 0.9% IV Not Given .[id number] [facility] Insulin Aspart 0 unit 10/23/21 07:30 10/23/21 09:59 Insulin Aspart (Novolog) 100 Unit/Ml Vial SQ 1 unit ACHS TODD Administration Protocol Magnesium Oxide 400 mg 10/22/21 21:00 10/23/21 09:59 Magnesium Oxide 400 Mg Tab PO 400 mg BID TODD Administration Metoprolol Tartrate 12.5 mg 10/23/21 09:00 10/23/21 10:00 Metoprolol Tartrate 12.5 Mg Tab PO 12.5 mg BID@0900,1800 TODD Administration Naloxone HCl 0.2 mg 10/22/21 19:34 Naloxone 0.4 Mg/Ml 1 Ml Vial IV Q2M PRN Opioid Reversal Intake and Output 10/22/21 10/23/21 10/23/21 22:59 06:59 14:59 Intake Total 480 Output Total 200 Balance 280 Intake: Oral 480 Output: Urine 200 Other: # Voids 1 Weight 71.668 kg 71.668 kg 10/23/21 06:19 10/23/21 06:19
[2021-10-23] MEDS ORDERED: FUROSEMIDE 40 MG TAB PO SCH (15:00)
[2021-10-23] MEDS: HYDROcodone/APAP 5-325MG 1 EACH TAB PO PRN ×3 (15:01→23:11)
--- NOTE | 2021-10-23 16:16 | CA ---
Transthoracic Echo Report Name: Digna Navarro Age: 81 Gender: F : 1940 Exam Date: 10/23/2021 12:48 Exam Location: [place] [facility] Ht (in): 62 Wt (lb): 158 Ordering Physician: Krissy Oseguera Attending/Referring Phys: Photographer'S Assistant Radha Cheng RDCS Procedure CPT: Indications: LV function Cardiac Hx: No cardiac hx Technical Quality: Good Contrast 1: Total Dose (mL): Contrast 2: Total Dose (mL): MEASUREMENTS (Male / Female) Normal Values 2D ECHO LV Diastolic Diameter PLAX 2.5 cm 4.2 - 5.9 / 3.9 - 5.3 cm LV Systolic Diameter PLAX 1.2 cm IVS Diastolic Thickness 1.2 cm 0.6 - 1.0 / 0.6 - 0.9 cm LVPW Diastolic Thickness 1.3 cm 0.6 - 1.0 / 0.6 - 0.9 cm LV Relative Wall Thickness 1.0 LVOT Diameter 1.5 cm M-MODE Aortic Root Diameter MM 3.3 cm LA Systolic Diameter MM 3.3 cm LA Ao Ratio MM 1.0 AV Cusp Separation MM 1.1 cm DOPPLER AV Peak Velocity 148.0 cm/s AV Peak Gradient 8.8 mmHg MV Area PHT 4.2 cm??? MR Peak Velocity 419.2 cm/s MR Peak Gradient 70.3 mmHg Mitral E Point Velocity 100.4 cm/s Mitral A Point Velocity 71.6 cm/s Mitral E to A Ratio 1.4 MV Deceleration Time 180.9 ms TR Peak Velocity 354.7 cm/s TR Peak Gradient 50.3 mmHg Right Ventricular Systolic Press 52.5 mmHg FINDINGS Left Ventricle Left ventricular ejection fraction is estimated at 55-60 %. Left ventricular cavity size normal.mild concentric left ventricular hypertrophy. Right Ventricle The right ventricle is normal in size and function. Moderate PHTN Right Atrium The right atrium is normal in size. Left Atrium The left atrium is normal in size. Mitral Valve Structurally normal mitral valve without significant stenosis or prolapse. There is mild mitral regurgitation. Mitral valve thickened. Aortic Valve Structurally normal aortic valve without significant sclerosis or stenosis. There is no aortic regurgitation. Tricuspid Valve Structurally normal tricuspid valve without significant stenosis. Pulmonary artery systolic pressure is 53 mmHg. Mild tricuspid regurgitation. Pulmonic Valve Pulmonic valve not well visualized. Pericardium Small pericardial effusion. Aorta Normal size aortic root and proximal ascending aorta. CONCLUSIONS 1. Normal size and systolic function 2. Mild mitral and tricuspid regurgitation 3. Moderate pulmonary hypertension Previewed by: Dr. Minh Short MD (Electronically Signed) Final Date: 23 October 2021 16:15
[2021-10-23 16:30] LABS: Glucose,Whole Blood 104 mg/dL (70-110)
--- NOTE | 2021-10-23 18:24 | P.PN ---
Subjective Hospital course: Patient is a very pleasant 81-year-old female with a past medical history of atrial fibrillation on anticoagulation with Eliquis, diastolic CHF, COPD, HTN, HLD, CAD, CKD IV and type II diabetes mellitus, She presented to the ED with a chief complaint of generalized weakness, urinary frequency, and dysuria. She underwent full evaluation in the emergency department. She was found to have macrocytic normochromic anemia with hemoglobin of 9.8 with baseline hemoglobin of 9, hypokalemia with potassium of 3.1, stable stage IV CKD with BUN 7, creatinine 40, and GFR of 1.8 with baseline creatinine of 2, and urinalysis revealing nitrate-positive UTI. CT head negative for acute intercranial process revealing age-related cerebral atrophy and chronic small vessel ischemic changes. EKG showing junctional rhythm at 60 bpm with precordial T wave inversions and occasional PVCs. Patient was admitted under our services with consultation to cardiology and PT/OT. Physical exam: Vital signs reviewed and stable. General: Nontoxic, no distress and appears stated age. Derm: Skin warm and dry, normal coloration for ethnicity. Head: Atraumatic, normocephalic and symmetric. Eyes: EOMs intact, no lid lag, and anicteric sclera Mouth: no lip lesions, mucus membranes moist Cardiovascular: regular rate and rhythm with normal S1S2, no murmur, positive posterior tibial pulses bilaterally, and cap refill < 2 seconds. Lungs: Respirations even, regular, and unlabored on room air. Lungs CTA bilaterally, no rhonchi, no rales, no wheezing, and no accessory muscle usage. Abdominal: soft, nontender to palpation, no guarding, no appreciable organomegaly Ext: ROM intact. No gross muscle atrophy, no edema, no contractures Neuro: Speech clear, face symmetrical and CN II-XII grossly intact with no noted focal neuro deficits Psych: Alert and oriented to person, place, time, and situation. Appropriate and pleasant affect. Assessment and Plan of Care: Generalized progressive weakness Urinary tract infection follow-up cultures -Patient initiated on antibiotics with Rocephin -Gentle IV fluid hydration -CT head negative for acute intercranial process -PT/OT consult -Fall precautions New onset precordial T wave inversion with junctional rhythm and PVCs Denies chest pain or shortness of breath Cardiology consult for evaluation Chronic kidney disease stage IV Electrolyte imbalance Replace magnesium and potassium Follow-up level Monitor urine output Monitor renal function Discontinue diuretics Chronic anemia stable Denies any GI bleeding Chronic conditions Atrial fibrillation on Eliquis Hypertension controlled Parkinson disease Hyperlipidemia Diabetes mellitus insulin sliding scale CODE STATUS: Full code DVT prophylaxis: Eliquis Discussed with: Patient and RN Anticipated discharge date: 1-[address]: [facility] facility A total of 39 minutes was spent on the care of this complex patient more than 50% of the time was spent in counseling and care coordination. Objective - Vital Signs Vital signs: Vital Signs Temp 98.5 F 10/23/21 07:45 Pulse 71 10/23/21 07:45 Resp 17 10/23/21 07:45 BP 128/66 10/23/21 07:45 Pulse Ox 93 L 10/23/21 07:45 FiO2 Intake & Output 10/22/21 10/23/21 10/23/21 18:59 06:59 18:59 Intake Total 480 Output Total 200 Balance 280 Weight 71.668 kg 71.668 kg Intake: Oral 480 Output: Urine 200 Other: # Voids 1 - Labs CBC & Chem 7: 10/23/21 06:19 10/23/21 06:19 Labs: Abnormal Lab Results - Last 24 Hours (Table) 10/22/21 10/22/21 10/22/21 Range/Units 16:27 16:27 16:27 RBC 2.88 L (3.80-5.40) m/uL Hgb 9.8 L (11.4-16.0) gm/dL Hct 29.4 L (34.0-46.0) % MCV 102.1 H (80.0-100.0) fL RDW 20.3 H (11.5-15.5) % Lymphocytes # 0.4 L (1.0-4.8) k/uL Sodium 135 L (137-145) mmol/L Potassium 3.1 L (3.5-5.1) mmol/L Chloride 108 H (98-107) mmol/L Carbon Dioxide 20 L (22-30) mmol/L BUN 40 H (7-17) mg/dL Creatinine 1.80 H (0.52-1.04) mg/dL POC Glucose (mg/dL) (70-110) mg/dL Magnesium 1.2 L (1.6-2.3) mg/dL Total Protein 6.2 L (6.3-8.2) g/dL Albumin 3.2 L (3.5-5.0) g/dL Free T3 pg/mL 2.7 L (2.8-5.3) pg/ml Urine Appearance Cloudy H (Clear) Urine Protein Trace H (Negative) Urine Blood Moderate H (Negative) Urine Nitrite Positive H (Negative) Ur Leukocyte Esterase Large H (Negative) Urine RBC 7 H (0-5) /hpf Urine WBC >182 H (0-5) /hpf Urine WBC Clumps Many H (None) /hpf Urine Bacteria Occasional H (None) /hpf Urine Mucus Rare H (None) /hpf 10/23/21 Range/Units 08:13 RBC (3.80-5.40) m/uL Hgb (11.4-16.0) gm/dL Hct (34.0-46.0) % MCV (80.0-100.0) fL RDW (11.5-15.5) % Lymphocytes # (1.0-4.8) k/uL Sodium (137-145) mmol/L Potassium (3.5-5.1) mmol/L Chloride (98-107) mmol/L Carbon Dioxide (22-30) mmol/L BUN (7-17) mg/dL Creatinine (0.52-1.04) mg/dL POC Glucose (mg/dL) 147 H (70-110) mg/dL Magnesium (1.6-2.3) mg/dL Total Protein (6.3-8.2) g/dL Albumin (3.5-5.0) g/dL Free T3 pg/mL (2.8-5.3) pg/ml Urine Appearance (Clear) Urine Protein (Negative) Urine Blood (Negative) Urine Nitrite (Negative) Ur Leukocyte Esterase (Negative) Urine RBC (0-5) /hpf Urine WBC (0-5) /hpf Urine WBC Clumps (None) /hpf Urine Bacteria (None) /hpf Urine Mucus (None) /hpf Microbiology - Last 24 Hours (Table) 10/22/21 16:27 Urine Culture - Preliminary Urine,Clean Catch
[2021-10-23] MEDS: DOCUSATE 100 MG CAP PO SCH (18:26)
[2021-10-23] MEDS: ATORVASTATIN 10 MG TAB PO SCH (18:26)
[2021-10-23] MEDS: FERROUS SULFATE 325 MG TAB PO SCH (18:26)
[2021-10-23] MEDS: EZETIMIBE 10 MG TAB PO SCH (18:26)
[2021-10-23 20:54] LABS: Glucose,Whole Blood 139 mg/dL (70-110)
[2021-10-24 06:45] LABS: Glucose,Whole Blood 117 mg/dL (70-110)
[2021-10-24] MEDS: INSULIN ASPART (NovoLOG) 100 UNIT/ML VIAL SQ SCH ×4 (07:35→20:38)
[2021-10-24] MEDS: APIXABAN 2.5 MG TABLET PO SCH ×2 (07:42→20:36)
[2021-10-24] MEDS: ASPIRIN 81 MG PO SCH (07:42)
[2021-10-24] MEDS: CALCIUM CARB-VIT D 500 MG-5 MCG TAB PO SCH ×3 (07:42→20:36)
[2021-10-24] MEDS: FOLIC ACID 1 MG TAB PO SCH (07:42)
[2021-10-24] MEDS: METOPROLOL TARTRATE 12.5 MG TAB PO SCH ×2 (07:42→17:21)
[2021-10-24] MEDS: CARBIDOPA-LEVODOPA 25-100 MG 1 EACH TAB PO SCH ×3 (07:43→20:37)
[2021-10-24] MEDS: GABAPENTIN 100 MG CAP PO SCH ×2 (07:43→14:25)
[2021-10-24] MEDS: COLCHICINE 0.6 MG EACH PO SCH ×2 (07:43→17:21)
[2021-10-24] MEDS: MAGNESIUM OXIDE 400 MG TAB PO SCH ×2 (07:43→20:37)
[2021-10-24 11:25] LABS: Glucose,Whole Blood 160 mg/dL (70-110)
[2021-10-24] MEDS: SODIUM CHLORIDE 0.9% 1,000 ML IV SCH (11:25)
[2021-10-24] MEDS: ONDANSETRON 4 MG/2 ML VIAL IVP PRN (14:25)
[2021-10-24 16:35] LABS: Glucose,Whole Blood 122 mg/dL (70-110)
--- NOTE | 2021-10-24 16:41 | P.PN ---
Subjective Progress Note Date: 10/24/21 Hospital course: Patient is a very pleasant 81-year-old female with a past medical history of atrial fibrillation on anticoagulation with Eliquis, diastolic CHF, COPD, HTN, HLD, CAD, CKD IV and type II diabetes mellitus, She presented to the ED with a chief complaint of generalized weakness, urinary frequency, and dysuria. She underwent full evaluation in the emergency department. She was found to have macrocytic normochromic anemia with hemoglobin of 9.8 with baseline hemoglobin of 9, hypokalemia with potassium of 3.1, stable stage IV CKD with BUN 7, creatinine 40, and GFR of 1.8 with baseline creatinine of 2, and urinalysis revealing nitrate-positive UTI. CT head negative for acute intercranial process revealing age-related cerebral atrophy and chronic small vessel ischemic changes. EKG showing junctional rhythm at 60 bpm with precordial T wave inversions and occasional PVCs. Patient was admitted under our services with consultation to cardiology and PT/OT. Physical exam: Patient seen and fully evaluated at bedside this morning. Patient reported mild nausea, otherwise denied having any complaints at this time with the exception of weakness. Patient given Zofran as needed for nausea and/or vomiting. Preliminary urine cultures positive for gram-negative bacilli. Patient remains on IV antibiotics Rocephin pending final culture and sensitivity results. Case management following. Awaiting acceptance to SNF and insurance authorization for placement at this time. Vital signs reviewed and stable. General: Nontoxic, no distress and appears stated age. Derm: Skin warm and dry, normal coloration for ethnicity. Head: Atraumatic, normocephalic and symmetric. Eyes: EOMs intact, no lid lag, and anicteric sclera Mouth: no lip lesions, mucus membranes moist Cardiovascular: regular rate and rhythm with normal S1S2, no murmur, positive posterior tibial pulses bilaterally, and cap refill < 2 seconds. Lungs: Respirations even, regular, and unlabored on room air. Lungs CTA bilaterally, no rhonchi, no rales, no wheezing, and no accessory muscle usage. Abdominal: soft, nontender to palpation, no guarding, no appreciable organomegaly Ext: ROM intact. No gross muscle atrophy, no edema, no contractures Neuro: Speech clear, face symmetrical and CN II-XII grossly intact with no noted focal neuro deficits Psych: Alert and oriented to person, place, time, and situation. Appropriate and pleasant affect. Assessment and Plan of Care: Generalized progressive weakness Urinary tract infection follow-up cultures -Continue IV antibiotics: Rocephin pending culture and sensitivity report. Preliminary cultures positive for gram-negative bacilli. -Gentle IV fluid hydration -CT head negative for acute intercranial process -PT/OT consult -Fall precautions -Case management following and assisting with placement in [facility], [facility]. Awaiting acceptance and insurance authorization. New onset precordial T wave inversion with junctional rhythm and PVCs -Denies chest pain or shortness of breath -Echocardiogram showing normal EF 55-60% with mild mitral and tricuspid regurgitation and moderate pulmonary hypertension. -Cardiology consult for evaluation, recommending outpatient follow-up with Dr. Mcmullen as scheduled on 10/30/21. Chronic kidney disease stage IV Electrolyte imbalance Hypomagnesemia, resolved Hypokalemia, resolved -Follow-up level -Monitor urine output -Monitor renal function -Discontinue diuretics Chronic anemia stable -Denies any GI bleeding Chronic conditions Atrial fibrillation on Eliquis Hypertension controlled Parkinson disease Hyperlipidemia Diabetes mellitus insulin sliding scale CODE STATUS: Full code DVT prophylaxis: Eliquis Discussed with: Patient and RN Anticipated discharge date: Pending acceptance to SNF and insurance authorization Anticipated discharge place: [facility] facility A total of 35 minutes was spent on the care of this complex patient more than 50% of the time was spent in counseling and care coordination. Objective - Vital Signs Vital signs: Vital Signs Temp 98.0 F 10/24/21 07:56 Pulse 51 L 10/24/21 07:56 Resp 18 10/24/21 07:56 BP 135/63 10/24/21 07:56 Pulse Ox 95 10/24/21 07:56 FiO2 Intake & Output 10/23/21 10/24/21 10/24/21 18:59 06:59 18:59 Output Total 550 600 Balance -550 -600 Output: Urine 550 600 Other: Voiding Method External Catheter # Voids 1 - Labs CBC & Chem 7: 10/23/21 06:19 10/23/21 06:19 Labs: Abnormal Lab Results - Last 24 Hours (Table) 10/23/21 10/23/21 10/23/21 Range/Units 06:19 06:19 11:35 WBC 4.24 L (4.50-10.00) X 10*3/uL RBC 2.66 L (4.10-5.20) X 10*6/uL Hgb 8.7 L (12.0-15.0) g/dL Hct 27.6 L (37.2-46.3) % MCV 103.8 H (80.0-97.0) fL MCH 32.7 H (27.0-32.0) pg MCHC 31.5 L (32.0-37.0) g/dL RDW 20.0 H (11.5-14.5) % Lymphocytes # 0.83 L (0.90-5.00) X 10*3/uL Sodium 134 L (135-145) mmol/L BUN 40.3 H (9.0-27.0) mg/dL Creatinine 2.1 H (0.6-1.5) mg/dL Est GFR (CKD-EPI)AfAm 24.8 L (60.0-200.0) Est GFR (CKD-EPI)NonAf 21.4 L (60.0-200.0) Glucose 127 H (70-110) mg/dL POC Glucose (mg/dL) 180 H (70-110) mg/dL Albumin 3.6 L (3.8-4.9) g/dL Albumin/Globulin Ratio 1.20 L (1.60-3.17) g/dL 10/23/21 10/24/21 Range/Units 20:52 06:45 WBC (4.50-10.00) X 10*3/uL RBC (4.10-5.20) X 10*6/uL Hgb (12.0-15.0) g/dL Hct (37.2-46.3) % MCV (80.0-97.0) fL MCH (27.0-32.0) pg MCHC (32.0-37.0) g/dL RDW (11.5-14.5) % Lymphocytes # (0.90-5.00) X 10*3/uL Sodium (135-145) mmol/L BUN (9.0-27.0) mg/dL Creatinine (0.6-1.5) mg/dL Est GFR (CKD-EPI)AfAm (60.0-200.0) Est GFR (CKD-EPI)NonAf (60.0-200.0) Glucose (70-110) mg/dL POC Glucose (mg/dL) 139 H 117 H (70-110) mg/dL Albumin (3.8-4.9) g/dL Albumin/Globulin Ratio (1.60-3.17) g/dL
[2021-10-24] MEDS: FERROUS SULFATE 325 MG TAB PO SCH (17:21)
[2021-10-24] MEDS: DOCUSATE 100 MG CAP PO SCH (17:21)
[2021-10-24] MEDS: ATORVASTATIN 10 MG TAB PO SCH (17:21)
[2021-10-24] MEDS: EZETIMIBE 10 MG TAB PO SCH (17:21)
[2021-10-24] MEDS: HYDROcodone/APAP 5-325MG 1 EACH TAB PO PRN (20:36)
[2021-10-24] MEDS: CYANOCOBALAMIN 500 MCG TAB PO SCH (20:37)
[2021-10-25] MEDS: HYDROcodone/APAP 5-325MG 1 EACH TAB PO PRN ×3 (00:19→21:06)
[2021-10-25] MEDS: GABAPENTIN 100 MG CAP PO SCH ×4 (00:19→21:06)
[2021-10-25] MEDS: SODIUM CHLORIDE 0.9% 1,000 ML IV SCH (01:34)
[2021-10-25 07:04] LABS: Glucose,Whole Blood 125 mg/dL (70-110)
[2021-10-25] MEDS: INSULIN ASPART (NovoLOG) 100 UNIT/ML VIAL SQ SCH ×4 (07:43→21:07)
[2021-10-25] MEDS: COLCHICINE 0.6 MG EACH PO SCH ×2 (07:49→17:15)
[2021-10-25] MEDS: FOLIC ACID 1 MG TAB PO SCH (07:49)
[2021-10-25] MEDS: CARBIDOPA-LEVODOPA 25-100 MG 1 EACH TAB PO SCH ×3 (07:49→21:05)
[2021-10-25] MEDS: CALCIUM CARB-VIT D 500 MG-5 MCG TAB PO SCH ×3 (07:49→21:07)
[2021-10-25] MEDS: ASPIRIN 81 MG PO SCH (07:49)
[2021-10-25] MEDS: MAGNESIUM OXIDE 400 MG TAB PO SCH ×2 (07:49→21:05)
[2021-10-25] MEDS: METOPROLOL TARTRATE 12.5 MG TAB PO SCH ×2 (07:49→17:15)
[2021-10-25] MEDS: APIXABAN 2.5 MG TABLET PO SCH ×2 (07:50→21:05)
[2021-10-25] MEDS: ONDANSETRON 4 MG/2 ML VIAL IVP PRN (10:26)
--- NOTE | 2021-10-25 11:10 | P.PN ---
Subjective Progress Note Date: 10/25/21 Hospital course: Patient is a very pleasant 81-year-old female with a past medical history of atrial fibrillation on anticoagulation with Eliquis, diastolic CHF, COPD, HTN, HLD, CAD, CKD IV and type II diabetes mellitus, She presented to the ED with a chief complaint of generalized weakness, urinary frequency, and dysuria. She underwent full evaluation in the emergency department. She was found to have macrocytic normochromic anemia with hemoglobin of 9.8 with baseline hemoglobin of 9, hypokalemia with potassium of 3.1, stable stage IV CKD with BUN 7, creatinine 40, and GFR of 1.8 with baseline creatinine of 2, and urinalysis revealing nitrate-positive UTI. CT head negative for acute intercranial process revealing age-related cerebral atrophy and chronic small vessel ischemic changes. EKG showing junctional rhythm at 60 bpm with precordial T wave inversions and occasional PVCs. Patient was admitted under our services with consultation to cardiology and PT/OT. Physical exam: Patient seen and fully evaluated at bedside this morning. Patient again reported mild nausea, states that she gets nauseas whenever she eats our food. Pt offered saltine crackers and she stated that they taste like flower and then offered gingerale and she again declined stating our nate stanton is not the real thing. Patient currently awaiting transfer arrangements to be made to assisted facility. Patient continues to report inability to ambulate secondary to her weakness. Urine culture positive for Serratia marcescens with multiple drug resistance use. Rocephin discontinued and patient started on cefepime per culture and sensitivity report. Vital signs reviewed and stable. General: Nontoxic, no distress and appears stated age. Derm: Skin warm and dry, normal coloration for ethnicity. Head: Atraumatic, normocephalic and symmetric. Eyes: EOMs intact, no lid lag, and anicteric sclera Mouth: no lip lesions, mucus membranes moist Cardiovascular: regular rate and rhythm with normal S1S2, no murmur, positive posterior tibial pulses bilaterally, and cap refill < 2 seconds. Lungs: Respirations even, regular, and unlabored on room air. Lungs CTA bilaterally, no rhonchi, no rales, no wheezing, and no accessory muscle usage. Abdominal: soft, nontender to palpation, no guarding, no appreciable organomegaly Ext: ROM intact. No gross muscle atrophy, no edema, no contractures. Venous discoloration. Neuro: Speech clear, face symmetrical and CN II-XII grossly intact with no noted focal neuro deficits Psych: Alert and oriented to person, place, time, and situation. Appropriate and pleasant affect. Assessment and Plan of Care: Generalized weakness with inability to ambulate independently Serratia marcescens Urinary tract infection -Continue IV antibiotics: Cefepime -Gentle IV fluid hydration -CT head negative for acute intercranial process -PT/OT consult -Fall precautions -Case management following and assisting with placement in [facility], [facility]. Lavell mitchell acceptance and insurance authorization. New onset precordial T wave inversion with junctional rhythm and PVCs -Denies chest pain or shortness of breath -Echocardiogram showing normal EF 55-60% with mild mitral and tricuspid regurgitation and moderate pulmonary hypertension. -Cardiology consult for evaluation, recommending outpatient follow-up with Dr. Mcmullen as scheduled on 10/30/21. Chronic kidney disease stage IV Electrolyte imbalance Hypomagnesemia, resolved Hypokalemia, resolved -Follow-up level -Monitor urine output -Monitor renal function -Discontinue diuretics Chronic anemia stable -Denies any GI bleeding Chronic conditions Atrial fibrillation on Eliquis Hypertension controlled Parkinson disease Peripheral neuropathy Hyperlipidemia Diabetes mellitus insulin sliding scale CODE STATUS: Full code DVT prophylaxis: Eliquis Discussed with: Patient and RN Anticipated discharge date: Pending acceptance to SNF and insurance authorization Anticipated discharge place: longterm facility A total of 35 minutes was spent on the care of this complex patient more than 50% of the time was spent in counseling and care coordination. Patient seen by nurse practitioner independently, I agree with assessment and plan as documented above Haim Martinez MD [facility] Medicine Objective - Vital Signs Vital signs: Vital Signs Temp 97.9 F 10/25/21 07:35 Pulse 65 10/25/21 07:35 Resp 17 10/25/21 07:35 BP 115/54 10/25/21 07:35 Pulse Ox 94 L 10/25/21 07:41 FiO2 Intake & Output 10/24/21 10/25/21 10/25/21 18:59 06:59 18:59 Intake Total 480 Output Total 750 1580 Balance -750 -1100 Intake: Oral 480 Output: Urine 750 1580 Other: Voiding Method External Catheter External Catheter - Labs CBC & Chem 7: 10/23/21 06:19 10/23/21 06:19 Labs: Abnormal Lab Results - Last 24 Hours (Table) 10/24/21 10/24/21 10/25/21 Range/Units 11:24 16:34 07:03 POC Glucose (mg/dL) 160 H 122 H 125 H (70-110) mg/dL Microbiology - Last 24 Hours (Table) 10/22/21 16:27 Urine Culture - Preliminary Urine,Clean Catch Gram Neg Bacilli
[2021-10-25 11:44] LABS: Glucose,Whole Blood 163 mg/dL (70-110)
[2021-10-25] MEDS: CEFEPIME 2 GM in SODIUM CHLORIDE 0.9% 100 ML IVPB SCH (15:07)
[2021-10-25 16:41] LABS: Glucose,Whole Blood 139 mg/dL (70-110)
[2021-10-25] MEDS: ATORVASTATIN 10 MG TAB PO SCH (17:15)
[2021-10-25] MEDS: EZETIMIBE 10 MG TAB PO SCH (17:15)
[2021-10-25] MEDS: FERROUS SULFATE 325 MG TAB PO SCH (17:16)
[2021-10-25] MEDS: DOCUSATE 100 MG CAP PO SCH (17:16)
[2021-10-25 20:10] LABS: Glucose,Whole Blood 128 mg/dL (70-110)
[2021-10-25] MEDS: CYANOCOBALAMIN 500 MCG TAB PO SCH (21:05)
[2021-10-26] MEDS: CEFEPIME 2 GM in SODIUM CHLORIDE 0.9% 100 ML IVPB SCH ×2 (00:42→09:12)
[2021-10-26 06:42] LABS: Glucose,Whole Blood 128 mg/dL (70-110)
[2021-10-26] MEDS: INSULIN ASPART (NovoLOG) 100 UNIT/ML VIAL SQ SCH ×4 (08:14→22:56)
[2021-10-26 08:31] LABS: HCT 27.1 % (37.2-46.3); HGB 8.7 g/dL (12.0-15.0); MCH 34.3 pg (27.0-32.0); MCHC 32.1 g/dL (32.0-37.0); MCV 106.7 fL (80.0-97.0); Mean Platelet Volume 11.6 fL (9.5-12.2); NRBC Per 100 WBC 0 /100 WBCS (0.0-0.0); Platelet Count 146 X 10*3/uL (140-440); RBC 2.54 X 10*6/uL (4.10-5.20); RDW 20.4 % (11.5-14.5); WBC 4.01 X 10*3/uL (4.50-10.00)
[2021-10-26 08:44] LABS: African American GFR (CKD) 29.9 (60.0-200.0); Albumin 3.4 g/dL (3.8-4.9); Albumin/Globulin Ratio 1.1 (1.60-3.17); Anion Gap 9.4 mmol/L (10.00-18.00); BUN/Creat Ratio 16.89 Ratio (12.00-20.00); Blood Urea Nitrogen 30.4 mg/dL (9.0-27.0); Calcium 10.4 mg/dL (8.7-10.3); Carbon Dioxide 25.6 mmol/L (20.0-27.5); Globulin 3.1 g/dL (1.6-3.3); Magnesium 2.2 mg/dL (1.5-2.4); Non-African American GFR(CKD) 25.8 (60.0-200.0); Potassium 5.5 mmol/L (3.5-5.5); Total Bilirubin 0.3 mg/dL (0.30-1.20); Total Protein 6.5 g/dL (6.2-8.2)
[2021-10-26] MEDS: CARBIDOPA-LEVODOPA 25-100 MG 1 EACH TAB PO SCH ×3 (09:13→23:05)
[2021-10-26] MEDS: APIXABAN 2.5 MG TABLET PO SCH ×2 (09:13→23:05)
[2021-10-26] MEDS: FOLIC ACID 1 MG TAB PO SCH (09:13)
[2021-10-26] MEDS: ASPIRIN 81 MG PO SCH (09:14)
[2021-10-26] MEDS: MAGNESIUM OXIDE 400 MG TAB PO SCH ×2 (09:14→23:05)
[2021-10-26] MEDS: COLCHICINE 0.6 MG EACH PO SCH ×3 (09:14→17:19)
[2021-10-26] MEDS: METOPROLOL TARTRATE 12.5 MG TAB PO SCH ×2 (09:14→17:18)
[2021-10-26] MEDS: CALCIUM CARB-VIT D 500 MG-5 MCG TAB PO SCH ×4 (09:14→23:05)
[2021-10-26] MEDS: GABAPENTIN 100 MG CAP PO SCH ×3 (09:15→23:05)
[2021-10-26 11:44] LABS: Glucose,Whole Blood 148 mg/dL (70-110)
[2021-10-26] MEDS: ONDANSETRON 4 MG/2 ML VIAL IVP PRN (12:05)
[2021-10-26] MEDS: HYDROcodone/APAP 5-325MG 1 EACH TAB PO PRN (16:07)
[2021-10-26 16:50] LABS: Glucose,Whole Blood 104 mg/dL (70-110)
[2021-10-26] MEDS: DOCUSATE 100 MG CAP PO SCH (17:18)
[2021-10-26] MEDS: ATORVASTATIN 10 MG TAB PO SCH ×2 (17:18→17:21)
[2021-10-26] MEDS: FERROUS SULFATE 325 MG TAB PO SCH ×2 (17:18→17:20)
[2021-10-26] MEDS: EZETIMIBE 10 MG TAB PO SCH ×2 (17:18→17:20)
--- NOTE | 2021-10-26 18:15 | P.PN ---
Subjective Progress Note Date: 10/26/21 Hospital course: Patient is a very pleasant 81-year-old female with a past medical history of atrial fibrillation on anticoagulation with Eliquis, diastolic CHF, COPD, HTN, HLD, CAD, CKD IV and type II diabetes mellitus, She presented to the ED with a chief complaint of generalized weakness, urinary frequency, and dysuria. She underwent full evaluation in the emergency department. She was found to have macrocytic normochromic anemia with hemoglobin of 9.8 with baseline hemoglobin of 9, hypokalemia with potassium of 3.1, stable stage IV CKD with BUN 7, creatinine 40, and GFR of 1.8 with baseline creatinine of 2, and urinalysis revealing nitrate-positive UTI. CT head negative for acute intercranial process revealing age-related cerebral atrophy and chronic small vessel ischemic changes. EKG showing junctional rhythm at 60 bpm with precordial T wave inversions and occasional PVCs. Patient was admitted under our services with consultation to cardiology and PT/OT. Physical exam: Patient seen and fully evaluated at bedside this morning. She was resting comfortably. She denied having any needs or concerns at this time. Patient continues to deny having any headache, lightheadedness, dizziness, chest pain, palpitations, or shortness of breath. She remains on cefepime for treatment of Serratia marcescens urinary tract infection. Morning labs reviewed and stable. Patient is medically stable [facility] once insurance authorization has been obtained. Vital signs reviewed and stable. General: Nontoxic, no distress and appears stated age. Derm: Skin warm and dry, normal coloration for ethnicity. Head: Atraumatic, normocephalic and symmetric. Eyes: EOMs intact, no lid lag, and anicteric sclera Mouth: no lip lesions, mucus membranes moist Cardiovascular: regular rate and rhythm with normal S1S2, no murmur, positive posterior tibial pulses bilaterally, and cap refill < 2 seconds. Lungs: Respirations even, regular, and unlabored on room air. Lungs CTA bilaterally, no rhonchi, no rales, no wheezing, and no accessory muscle usage. Abdominal: soft, nontender to palpation, no guarding, no appreciable organomegaly Ext: ROM intact. No gross muscle atrophy, no edema, no contractures. Venous discoloration. Neuro: Speech clear, face symmetrical and CN II-XII grossly intact with no noted focal neuro deficits Psych: Alert and oriented to person, place, time, and situation. Appropriate and pleasant affect. Assessment and Plan of Care: Generalized weakness with inability to ambulate independently Serratia marcescens Urinary tract infection -Continue IV antibiotics: Cefepime -Gentle IV fluid hydration -CT head negative for acute intercranial process -PT/OT consult -Fall precautions -Case management following and assisting with placement in SNF, [facility]. Awaiting acceptance and insurance authorization. New onset precordial T wave inversion with junctional rhythm and PVCs -Denies chest pain or shortness of breath -Echocardiogram showing normal EF 55-60% with mild mitral and tricuspid regurgitation and moderate pulmonary hypertension. -Cardiology consult for evaluation, recommending outpatient follow-up with Dr. Mcmullen as scheduled on 10/30/21. Chronic kidney disease stage IV Electrolyte imbalance Hypomagnesemia, resolved Hypokalemia, resolved -Monitor urine output -Monitor renal function -Discontinued diuretics Chronic anemia, stable -Denies any GI bleeding Chronic conditions Atrial fibrillation on Eliquis Hypertension controlled Parkinson disease Peripheral neuropathy Hyperlipidemia Diabetes mellitus insulin sliding scale CODE STATUS: Full code DVT prophylaxis: Eliquis Discussed with: Patient and RN Anticipated discharge date: Medically cleared for discharge Pending insurance authorization for [facility]. Anticipated discharge place: [facility] A total of 31 minutes was spent on the care of this complex patient more than 50% of the time was spent in counseling and care coordination. Objective - Vital Signs Vital signs: Vital Signs Temp 97.8 F 10/26/21 07:18 Pulse 62 10/26/21 07:18 Resp 18 10/26/21 07:18 BP 152/67 10/26/21 07:18 Pulse Ox 100 10/26/21 07:18 FiO2 Intake & Output 10/25/21 10/26/21 10/26/21 18:59 06:59 18:59 Intake Total 590 Output Total 800 200 Balance -800 390 Intake: Oral 590 Output: Urine 800 200 Other: Voiding Method External Catheter External Catheter # Voids 4 - Labs CBC & Chem 7: 10/26/21 05:54 10/26/21 05:54 Labs: Abnormal Lab Results - Last 24 Hours (Table) 10/25/21 10/25/21 10/25/21 Range/Units 11:43 16:34 20:09 WBC (4.50-10.00) X 10*3/uL RBC (4.10-5.20) X 10*6/uL Hgb (12.0-15.0) g/dL Hct (37.2-46.3) % MCV (80.0-97.0) fL MCH (27.0-32.0) pg RDW (11.5-14.5) % Sodium (135-145) mmol/L Anion Gap (10.00-18.00) mmol/L BUN (9.0-27.0) mg/dL Creatinine (0.6-1.5) mg/dL Est GFR (CKD-EPI)AfAm (60.0-200.0) Est GFR (CKD-EPI)NonAf (60.0-200.0) Glucose (70-110) mg/dL POC Glucose (mg/dL) 163 H 139 H 128 H (70-110) mg/dL Calcium (8.7-10.3) mg/dL ALT (8-44) U/L Albumin (3.8-4.9) g/dL Albumin/Globulin Ratio (1.60-3.17) g/dL 10/26/21 10/26/21 10/26/21 Range/Units 05:54 05:54 06:41 WBC 4.01 L (4.50-10.00) X 10*3/uL RBC 2.54 L (4.10-5.20) X 10*6/uL Hgb 8.7 L (12.0-15.0) g/dL Hct 27.1 L (37.2-46.3) % MCV 106.7 H (80.0-97.0) fL MCH 34.3 H (27.0-32.0) pg RDW 20.4 H (11.5-14.5) % Sodium 132 L (135-145) mmol/L Anion Gap 9.40 L (10.00-18.00) mmol/L BUN 30.4 H (9.0-27.0) mg/dL Creatinine 1.8 H (0.6-1.5) mg/dL Est GFR (CKD-EPI)AfAm 29.9 L (60.0-200.0) Est GFR (CKD-EPI)NonAf 25.8 L (60.0-200.0) Glucose 120 H (70-110) mg/dL POC Glucose (mg/dL) 128 H (70-110) mg/dL Calcium 10.4 H (8.7-10.3) mg/dL ALT 6 L (8-44) U/L Albumin 3.4 L (3.8-4.9) g/dL Albumin/Globulin Ratio 1.10 L (1.60-3.17) g/dL Microbiology - Last 24 Hours (Table) 10/22/21 16:27 Urine Culture - Final Urine,Clean Catch Serratia marcescens
[2021-10-26 20:39] LABS: Glucose,Whole Blood 129 mg/dL (70-110)
[2021-10-26] MEDS: CEFEPIME 1 GM in SODIUM CHLORIDE 0.9% 50 ML IVPB SCH (22:59)
[2021-10-26] MEDS: CYANOCOBALAMIN 500 MCG TAB PO SCH (23:05)
[2021-10-27] MEDS: HYDROcodone/APAP 5-325MG 1 EACH TAB PO PRN (00:47)
[2021-10-27 07:03] LABS: Glucose,Whole Blood 110 mg/dL (70-110)
[2021-10-27] MEDS: INSULIN ASPART (NovoLOG) 100 UNIT/ML VIAL SQ SCH ×2 (07:15→11:10)
[2021-10-27 08:04] VITALS: RESP 16
[2021-10-27] MEDS: CEFEPIME 1 GM in SODIUM CHLORIDE 0.9% 50 ML IVPB SCH (08:44)
[2021-10-27] MEDS: METOPROLOL TARTRATE 12.5 MG TAB PO SCH (10:12)
[2021-10-27] MEDS: ASPIRIN 81 MG PO SCH (10:21)
[2021-10-27] MEDS: APIXABAN 2.5 MG TABLET PO SCH (10:57)
[2021-10-27] MEDS: GABAPENTIN 100 MG CAP PO SCH ×2 (10:57→15:07)
[2021-10-27] MEDS: COLCHICINE 0.6 MG EACH PO SCH (10:57)
[2021-10-27] MEDS: CARBIDOPA-LEVODOPA 25-100 MG 1 EACH TAB PO SCH ×2 (11:00→15:07)
[2021-10-27] MEDS: FOLIC ACID 1 MG TAB PO SCH (11:02)
[2021-10-27] MEDS: MAGNESIUM OXIDE 400 MG TAB PO SCH (11:05)
[2021-10-27] MEDS: CALCIUM CARB-VIT D 500 MG-5 MCG TAB PO SCH ×2 (11:08→15:07)
[2021-10-27 11:10] LABS: Glucose,Whole Blood 112 mg/dL (70-110)
--- NOTE | 2021-10-27 11:31 | P.DS ---
Providers Date of admission: 10/22/21 19:34 Expected date of discharge: 10/27/21 Attending physician: Anahy Adhikari MD Consults: 10/23/21 02:50 Consult Physician Routine Consulting Provider: All Burnett Consult Reason/Comments: Precordial T wave inversion new compared to before Do you want consulting provider notified?: Yes, Notify in am Primary care physician: Aaliyah Evans MD Hospital Course: Discharge Diagnosis: Generalized weakness with inability to ambulate independently, discharged to [facility] for continued rehab with PT/OT. Serratia marcescens Urinary tract infection, received 2 day course of cefepime pain and being discharged home on Bactrim 800/160 mg twice daily for an additional 5 days to total 7 day course of antibiotics. New onset precordial T wave inversion with junctional rhythm and PVCs -Denies chest pain or shortness of breath -Echocardiogram showing normal EF 55-60% with mild mitral and tricuspid regurgitation and moderate pulmonary hypertension. -Cardiology consult for evaluation, recommending outpatient follow-up with Dr. Mcmullen as scheduled on 10/30/21. Chronic kidney disease stage IV, stable Electrolyte imbalance, Lasix was discontinued Hypomagnesemia, resolved Hypokalemia, resolved Chronic anemia, stable. Continue daily ferrous sulfate as long as weekly Epoetin injections. Atrial fibrillation, continue anticoagulation with Eliquis Hypertension controlled. Monitor vital signs and continue daily medication regimen with metoprolol Parkinson disease, continue carbidopa levodopa and provide assistance as needed. Peripheral neuropathy Hyperlipidemia Diabetes mellitus insulin sliding scale Hospital Course: Patient is a very pleasant 81-year-old female with a past medical history of atrial fibrillation on anticoagulation with Eliquis, diastolic CHF, COPD, HTN, HLD, CAD, CKD IV and type II diabetes mellitus, She presented to the ED with a chief complaint of generalized weakness, urinary frequency, and dysuria. She underwent full evaluation in the emergency department. She was found to have ma crocytic normochromic anemia with hemoglobin of 9.8 with baseline hemoglobin of 9, hypokalemia with potassium of 3.1, stable stage IV CKD with BUN 7, creatinine 40, and GFR of 1.8 with baseline creatinine of 2, and urinalysis revealing nitrate-positive UTI. CT head negative for acute intercranial process revealing age-related cerebral atrophy and chronic small vessel ischemic changes. EKG showing junctional rhythm at 60 bpm with precordial T wave inversions and occasional PVCs. Patient was admitted under our services with consultation to cardiology and PT/OT. She was initially placed on Rocephin for treatment of UTI, urine cultures came back positive for Serratia marcescens and antibiotic changed to cefepime per culture and sensitivity report. She underwent evaluation by physical therapy stating patient had challenges with bed mobility, strength, balance, transfers, endurance, and ambulation. Physical therapy recommending subacute rehabilitation as assistance required for ADLs and patient is a high risk for falls. Lasix was discontinued secondary to electrolyte imbalance and poor oral intake. Patient being discharged home on oral antibiotic, Bactrim 800/160 mg twice daily for an additional 5 days to total 7 day course of antibiotic treatment for her Serratia marcescens UTI. Patient also sent with instructions for encouragement of oral intake, recommending protein supplements 3 times daily between meals. Insurance authorization was received for SNF. Patient medically stable for discharge to [facility] at this time. Physical exam: Patient seen and evaluated at bedside. Patient again reporting, the food makes her nauseous. Patient given chocolate pudding per her request. Patient was encouraged to increase her oral intake, patient refusing to eat anything other than chocolate pudding at this time. Vital signs reviewed and stable. General: Nontoxic, no distress and appears stated age. Derm: Skin warm and dry, normal coloration for ethnicity. Head: Atraumatic, normocephalic and symmetric. Eyes: EOMs intact, no lid lag, and anicteric sclera Mouth: no lip lesions, mucus membranes moist Cardiovascular: regular rate and rhythm with normal S1S2, no murmur, positive posterior tibial pulses bilaterally, and cap refill < 2 seconds. Lungs: Respirations even, regular, and unlabored on room air. Lungs CTA bilatera lly, no rhonchi, no rales, no wheezing, and no accessory muscle usage. Abdominal: soft, nontender to palpation, no guarding, no appreciable organomegaly Ext: ROM limited but intact. No gross muscle atrophy, no edema, no contractures. Venous discoloration. Neuro: Speech clear, face symmetrical and CN II-XII grossly intact with no noted focal neuro deficits Psych: Alert and oriented to person, place, time, and situation. Appropriate and pleasant affect. A total of 38 minutes of time were spent preparing this complex discharge summary. Pt was discharged on 10/27/21 at 11:29 AM. Rl Woodward NP rendered care for this patient independently, reviewed the findings and plan as documented in the note above. I did not physically speak with or examine the patient on this date. Patient Condition at Discharge: Stable Plan - Discharge Summary Discharge Rx Participant: Yes New Discharge Prescriptions: New Sulfamethox-Tmp 800-160Mg [Bactrim DS 800-160 mg] 1 tab PO Q12HR 5 Days #10 tab Continue Ezetimibe [Zetia] 10 mg PO DAILY@1800 Lovastatin [Mevacor] 10 mg PO DAILY@1800 Cyanocobalamin [Vitamin B-12] 500 mcg PO HS Apixaban [Eliquis] 2.5 mg PO BID@0900,1800 Docusate [Colace] 100 mg PO DAILY@1800 Metoprolol Tartrate [Lopressor] 12.5 mg PO BID@0900,1800 sitaGLIPtin [Januvia] 50 mg PO DAILY Aspirin EC [Ecotrin Low Dose] 81 mg PO DAILY Folic Acid 1 mg PO DAILY Ferrous Sulfate [Iron (65 MG Elemental)] 325 mg PO DAILY@1800 Epoetin Obed [Procrit] 10,000 unit SQ TH@0800 Carbidopa-Levodopa 25-100 mg [Sinemet 25-100 mg] 1 tab PO TID@0900,1500,2100 Colchicine [Mitigare] 0.6 mg PO BID@0900,1800 Calcium Carbonate/Vitamin D3 [Calcium 500 mg-Vit D3 5 mcg (200 Unit)] 1 tab PO TID@0900,1500,2100 Gabapentin [Neurontin] 100 mg PO BID@0900,1500 3 Days #6 cap Changed Gabapentin [Neurontin] 200 mg PO HS 3 Days #3 cap Discontinued Furosemide [Lasix] 40 mg PO DAILY@1500 Discharge Medication List Ezetimibe [Zetia] 10 mg PO DAILY@1800 11/20/13 [History] Lovastatin [Mevacor] 10 mg PO DAILY@1800 11/20/13 [History] Apixaban [Eliquis] 2.5 mg PO BID@0900,1800 02/17/20 [History] Cyanocobalamin [Vitamin B-12] 500 mcg PO HS 02/17/20 [History] Docusate [Colace] 100 mg PO DAILY@1800 10/28/21 [History] Epoetin Obed [Procrit] 10,000 unit SQ TH@0800 02/05/21 [History] Ferrous Sulfate [Iron (65 MG Elemental)] 325 mg PO DAILY@1800 02/05/21 [History] Metoprolol Tartrate [Lopressor] 12.5 mg PO BID@0900,1800 02/05/21 [History] Carbidopa-Levodopa 25-100 mg [Sinemet 25-100 mg] 1 tab PO TID@0900,1500,2100 02/11/21 [History] Aspirin EC [Ecotrin Low Dose] 81 mg PO DAILY 07/19/21 [History] Colchicine [Mitigare] 0.6 mg PO BID@0900,1800 07/19/21 [History] sitaGLIPtin [Januvia] 50 mg PO DAILY 07/19/21 [History] Calcium Carbonate/Vitamin D3 [Calcium 500 mg-Vit D3 5 mcg (200 Unit)] 1 tab PO TID@0900,1500,2100 10/22/21 [History] Folic Acid 1 mg PO DAILY 10/22/21 [History] Gabapentin [Neurontin] 100 mg PO BID@0900,1500 3 Days #6 cap 10/27/21 [Rx] Gabapentin [Neurontin] 200 mg PO HS 3 Days #3 cap 10/27/21 [Rx] Sulfamethox-Tmp 400-80Mg [Bactrim SS 400-80 mg] 1 tab PO Q12HR 5 Days #10 tablet 10/27/21 [Rx] Follow up Appointment(s)/Referral(s): All Burnett MD [STAFF PHYSICIAN] - 10/30/21 10:00 am Saige Velasquez, [NON-STAFF] - As Needed Aaliyah Evans MD [Primary Care Provider] - 1-2 days Patient Instructions/Handouts: Urinary Tract Infection in Women (DC) Activity/Diet/Wound Care/Special Instructions: Activity: Pt requires assistance. Activity as tolerated. Take breaks as needed. Fall precautions. Diet: Heart healthy and carb consistent diet. Avoid salts, or foods with hidden salts such as canned or boxed foods and frozen dinners. Extra salt makes your heart work harder and traps the fluid in your body for longer. Strongly recommend increased protein intake, protein supplements TID between meals and encouragement of oral intake of food and fluids. Special Instructions: Take all of your medications as directed and remember to keep all of your doctor's appointments and follow-up as needed. Thank you for allowing us to participate in your care, it was truly a pleasure having you for our patient!!! Discharge Disposition: TRANSFER TO SNF/ECF
[2021-10-27 14:07] VITALS: BP 151/59; PULSE 59; TEMP 97.8
[2021-10-29] MEDS ORDERED: DARBEPOETIN ALFA 25 MCG/0.42 ML SYRINGE SQ SCH (08:00)
== END 2021-10-27 15:46 | DRG 690 ==
LOC: EC 16:10 → 4SSUR 19:34
PROVIDERS: ADMIT Internal Medicine; ATTEND Internal Medicine
DX: N39.0 Urinary tract infection, site not specified (principal); I13.0 Hypertensive heart and chronic kidney disease with heart failure and stage 1 through stage 4 chronic kidney disease, or unspecified chronic kidney disease; I48.20 Chronic atrial fibrillation, unspecified; I50.32 Chronic diastolic (congestive) heart failure; N18.4 Chronic kidney disease, stage 4 (severe); I48.21 Permanent atrial fibrillation; I25.10 Atherosclerotic heart disease of native coronary artery without angina pectoris; B96.89 Other specified bacterial agents as the cause of diseases classified elsewhere; Z20.822 Contact with and (suspected) exposure to COVID-19; J44.9 Chronic obstructive pulmonary disease, unspecified; E11.22 Type 2 diabetes mellitus with diabetic chronic kidney disease; I49.3 Ventricular premature depolarization; D64.9 Anemia, unspecified; E78.5 Hyperlipidemia, unspecified; E83.42 Hypomagnesemia; E87.6 Hypokalemia; G20 Parkinson's disease; I25.2 Old myocardial infarction; Z79.01 Long term (current) use of anticoagulants; I08.1 Rheumatic disorders of both mitral and tricuspid valves; E11.51 Type 2 diabetes mellitus with diabetic peripheral angiopathy without gangrene; G47.33 Obstructive sleep apnea (adult) (pediatric); E11.42 Type 2 diabetes mellitus with diabetic polyneuropathy; I27.20 Pulmonary hypertension, unspecified; R29.6 Repeated falls; K21.9 Gastro-esophageal reflux disease without esophagitis; M81.0 Age-related osteoporosis without current pathological fracture; Z79.82 Long term (current) use of aspirin; Z79.84 Long term (current) use of oral hypoglycemic drugs; Z79.899 Other long term (current) drug therapy; Z82.49 Family history of ischemic heart disease and other diseases of the circulatory system; Z82.5 Family history of asthma and other chronic lower respiratory diseases; Z86.16 Personal history of COVID-19; Z87.19 Personal history of other diseases of the digestive system; Z87.442 Personal history of urinary calculi; Z87.891 Personal history of nicotine dependence; Z90.710 Acquired absence of both cervix and uterus; Z95.1 Presence of aortocoronary bypass graft; Z95.5 Presence of coronary angioplasty implant and graft; Z88.8 Allergy status to other drugs, medicaments and biological substances; Z88.5 Allergy status to narcotic agent; Z91.81 History of falling
CPT/HCPCS: 36415; 70450; 71046; 80053; 81001; 83605; 83735; 84439; 84443; 84481; 84484; 85025; 85027; 85610; 85730; 87077; 87086; 87186; 87635; 93005; 93306; 94760; 96365; 99285

== ENCOUNTER 2021-11-06 11:50 | Inpatient (IN) | payer MEDICARE, OTHER ==
[2021-11-06 11:57] LABS: Glucose,Whole Blood 97 mg/dL (70-110)
[2021-11-06 12:31] LABS: Anisocytosis Moderate; Basophils % (A) 0 %; Eosinophils # (A) 0.1 k/uL (0-0.7); Eosinophils % (A) 2 %; HGB 8.4 gm/dL (11.4-16.0); Lymphocytes # (A) 0.8 k/uL (1.0-4.8); Lymphocytes % (A) 23 %; MCHC 35.2 g/dL (31.0-37.0); MCV 99.6 fL (80.0-100.0); Macrocytosis Moderate; Mean Platelet Volume 8.6; Monocytes # (A) 0.3 k/uL (0-1.0); Monocytes % (A) 8 %; Neutrophils # (A) 2.4 k/uL (1.3-7.7); Neutrophils % (A) 66 %; Platelet Count 146 k/uL (150-450); Poikilocytosis Moderate; RBC 2.41 m/uL (3.80-5.40); RDW 20.6 % (11.5-15.5); WBC 3.7 k/uL (3.8-10.6)
--- NOTE | 2021-11-06 12:32 | CT ---
EXAMINATION TYPE: CT brain wo con DATE OF EXAM: 11/06/2021 COMPARISON: 10/22/2021 HISTORY: 81-year-old female confusion, altered mental status TECHNIQUE: Examination was done in axial plane without intravenous contrast. Coronal and sagittal r econstructions performed. CT DLP: 1072.4 mGycm Automated exposure control for dose reduction was used. FINDINGS: There is no evidence of acute intracranial hemorrhage, acute ischemic changes, mass, mass-effect, or extra-axial fluid collection. There is no effacement of cerebral sulci or basal subarachnoid cister ns. There is no hydrocephalus. There is no midline shift. Starr-white matter distinction is preserv ed. Moderate patchy white matter hypodensities in both hemispheres. Trace mucosal thickening maxillary si nuses. Mastoid air cells well pneumatized. Orbits and globes are intact. IMPRESSION: Moderate patchy burden of chronic small vessel ischemic disease. No acute intracranial abnormality se en. Mild chronic maxillary sinus disease.
[2021-11-06 12:41] LABS: Amorphous Sediment,Urine Rare /hpf; Appearance,Urine Clear (Clear); Bacteria,Urine Rare /hpf; Bilirubin,Urine Negative (Negative); Blood,Urine Small (Negative); Color,Urine Light Yellow; Glucose,Urine (UA) Negative (Negative); Ketones,Urine Negative (Negative); Leukocyte Esterase,Urine Large (Negative); Mucus,Urine Rare /hpf; Nitrite,Urine Negative (Negative); PH, Urine 5.5 (5.0-8.0); Protein,Urine Negative (Negative); RBC,Urine 2 /hpf (0-5); Specific Gravity,Urine 1.005 (1.001-1.035); Urobilinogen,Urine <2.0 mg/dL (<2.0); WBC,Urine 35 /hpf (0-5)
[2021-11-06 12:44] LABS: Partial Thromboplastin Time 28.3 sec (22.0-30.0); Prothrombin Time 10.9 sec (9.0-12.0)
--- NOTE | 2021-11-06 12:44 | XR ---
EXAMINATION TYPE: XR chest 2V DATE OF EXAM: 11/06/2021 COMPARISON: Chest x-ray dated 10/22/2021 HISTORY: Altered mental status TECHNIQUE: Frontal and lateral views of the chest are obtained. FINDINGS: Prominent lung volumes suggest underlying COPD. Aorta is dense and possibly aneurysmal. Th ere is blunting the posterior paraspinous phrenic angles which is developed in the interval. Coronary artery calcifications are noted. The heart is enlarged. Patient is post median sternotomy. No eviden t pneumothorax. Interstitium is increased. Epicardial pacing leads are present. IMPRESSION: Correlate for pulmonary venous hypertension and interstitial edema in a patient with pre -existing COPD. Possible aortic aneurysm. There is cardiomegaly, coronary artery disease. Possible sm all pleural effusions.
[2021-11-06 12:46] LABS: ALT <6 U/L (4-34); African American GFR (CKD) 40 (>60 ml/min/1.73 sqM); Albumin 3.5 g/dL (3.5-5.0); Anion Gap 6 mmol/L; Blood Urea Nitrogen 32 mg/dL (7-17); Calcium 9.3 mg/dL (8.4-10.2); Carbon Dioxide 25 mmol/L (22-30); Chloride 91 mmol/L (98-107); Glucose 85 mg/dL (74-99); Non-African American GFR(CKD) 35 (>60 ml/min/1.73 sqM); Sodium 122 mmol/L (137-145); Total Bilirubin 0.5 mg/dL (0.2-1.3); Total Protein 6.7 g/dL (6.3-8.2)
--- NOTE | 2021-11-06 12:58 | ED ---
Altered Mental Status HPI - General Chief Complaint: Altered Mental Status Stated Complaint: AMS Time Seen by Provider: 11/06/21 12:05 Source: EMS Mode of arrival: EMS Limitations: altered mental status - History of Present Illness Initial Comments: 81-year-old female with history of A. fib, COPD, congestive heart failure, diabetes presents to the emergency department altered mental status. Patient sent from [facility] with lethargy and electrolyte abnormalities. Review the patient's record demonstrates hyponatremia with a sodium of 122. Random urine is 57 with a urine osmole of 262 and a serum osmole of 269. She was given 40 mg of Lasix yesterday per the JUN. patient also on Bactrim for UTI was started during her previous admission. When speaking with the patient she cannot provide any history. Denies any pain. Does interact appropriately. Denies any shortness of breath. No other alleviating, precipitating or modifying factors - Related Data Home Medications Medication Instructions Recorded Confirmed Ezetimibe [Zetia] 10 mg PO DAILY@1700 11/20/13 11/06/21 Lovastatin [Mevacor] 10 mg PO DAILY@1700 11/20/13 11/06/21 Apixaban [Eliquis] 2.5 mg PO BID@0800,1700 02/17/20 11/06/21 Cyanocobalamin [Vitamin B-12] 500 mcg PO HS 02/17/20 11/06/21 Epoetin Obed [Procrit] 10,000 unit SQ TH@0800 02/05/21 11/06/21 Ferrous Sulfate [Iron (65 MG 325 mg PO DAILY@1700 02/05/21 11/06/21 Elemental)] Metoprolol Tartrate [Lopressor] 12.5 mg PO BID@0800,1700 02/05/21 11/06/21 Aspirin EC [Ecotrin Low Dose] 81 mg PO DAILY@1700 07/19/21 11/06/21 Colchicine [Mitigare] 0.6 mg PO BID@0800,1700 07/19/21 11/06/21 sitaGLIPtin [Januvia] 50 mg PO DAILY@0900 07/19/21 11/06/21 Folic Acid 1 mg PO DAILY@1700 10/22/21 11/06/21 Calcium Carbonate/Vitamin D3 1 cap PO TID@0800,1400,2100 11/06/21 07/29/22 [Calcium 600 mg-D3 10 Mcg (400 Iu)] Carbidopa/Levodopa [Parcopa 25-100 1 tab PO TID@0800,1400,209911/06/21 11/06/21 mg Odt] Ensure Enlive 237 ml PO BID@0800,1700 11/06/21 11/06/21 Furosemide 10mg/Ml 40 mg IV ONCE 11/06/21 11/06/21 Gabapentin [Neurontin] 100 mg PO BID@0800,1400 11/06/21 11/06/21 Gabapentin [Neurontin] 200 mg PO HS@209911/06/21 11/06/21 Magnesium Hydroxide [Milk of 7,200 mg PO Q48H PRN 11/06/21 11/06/21 Magnesia Concentrate] Meclizine [Antivert] 12.5 mg PO Q8H PRN 11/06/21 11/06/21 Na Phos,M-B/Na Phos,Di-Ba [Fleet 133 ml RECTAL DAILY PRN 11/06/21 11/06/21 Adult] Sennosides/Docusate Sodium [Senna 1 tab PO BID@0800,1700 11/06/21 11/06/21 Plus 8.6-50 mg Tablet] Sodium Polystyrene Sulfonate 15 gm PO ONCE 11/06/21 11/06/21 [Kayexalate] bisacodyL [Dulcolax] 10 mg RECTAL DAILY PRN 11/06/21 11/06/21 Allergies Allergy/AdvReac Type Severity Reaction Status Date / Time tuberculin, purified protein Allergy Per [place] Verified 11/06/21 13:02 deriva albuterol [From DuoNeb] AdvReac Nausea Verified 11/06/21 13:02 cortisone AdvReac PAIN Verified 11/06/21 13:02 hydrocodone AdvReac Nausea Verified 11/06/21 13:02 ipratropium [From DuoNeb] AdvReac Nausea Verified 11/06/21 13:02 procaine HCl [From Novocain] AdvReac pain Verified 11/06/21 13:02 allergy medicines AdvReac "dries me Uncoded 11/06/21 13:02 out, bloody noses,generalized pain" Review of Systems ROS Statement: Those systems with pertinent positive or pertinent negative responses have been documented in the HPI. ROS Other: All systems not noted in ROS Statement are negative. Past Medical History Past Medical History: Atrial Fibrillation, Atrial Flutter, Coronary Artery Disease (CAD), Heart Failure, COPD, Diabetes Mellitus, GERD/Reflux, Hyperlipidemia, Hypertension, Myocardial Infarction ([place]), Musculoskeletal Disorder, Renal Disease, Respiratory Disorder, Sleep Apnea/CPAP/BIPAP, Vascular Disorder Additional Past Medical History / Comment(s): NIDDM type II, neuropathy bilateral legs/feet, CKD stage III, nephrolithiasis, anemia, diastolic CHF, card iac valve disease, pulmonary htn, home oxygen prn, afib/flutter with RVR, pt states she fell one year ago and suffered 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 Last Myocardial Infarction Date:: 1999 History of Any Multi-Drug Resistant Organisms: None Reported Past Surgical History: Appendectomy, Coronary Bypass/CABG, Heart Catheterization, Hysterectomy, Tonsillectomy Additional Past Surgical History / Comment(s): 1999 CABG 4 vessel, BETHEL/cardioversion, abdominal aortagrams/bilateral runoffs, R atherectomy/PTBA/stent to R SFA, R neck benign lymph node removed, cysto/lithotripsy/aborted d/t unable to visualize stone, EGD, colonoscopy Past Anesthesia/Blood Transfusion Reactions: Motion Sickness Additional Past Anesthesia/Blood Transfusion Reaction / Comment(s): Pt has motion sickness/clausterphobia. Past Psychological History: No Psychological Hx Reported Smoking Status: Former smoker - Past Family History Brother(s) Family Medical History: Cancer Son(s) Family Medical History: Cancer, Myocardial Infarction ([place]) Sister(s) Family Medical History: Cancer Mother Family Medical History: COPD, Myocardial Infarction ([place]) Additional Family Medical History / Comment(s): mother of [place]-pt cannot recall at what age. General Exam Limitations: altered mental status Course Vital Signs 11/06/21 11/06/21 11/06/21 12:03 12:56 13:13 Temperature Pulse Rate 46 L 43 L 45 L Pulse Rate [ Right Pulse Oximetery] Respiratory 18 14 Rate Blood Pressure 127/54 118/32 135/53 Blood Pressure [Right Arm] O2 Sat by Pulse 92 L 100 100 Oximetry 11/06/21 11/06/21 14:22 14:43 Temperature 97.3 F L 97.6 F Pulse Rate 48 L Pulse Rate [ 47 L Right Pulse Oximetery] Respiratory 16 18 Rate Blood Pressure 151/59 Blood Pressure 136/59 [Right Arm] O2 Sat by Pulse 99 100 Oximetry Medical Decision Making - Medical Decision Making Upon arrival the patient was placed into room 2. I did review the patient's lab oratory studies. I did repeat laboratory studies. Sodium 122. Patient will be admitted. Spoke with Dr. Mcnamara. - Lab Data Result diagrams: 11/06/21 12:16 11/06/21 12:16 Lab Results 11/06/21 11/06/21 11/06/21 Range/Units 11:56 12:16 12:16 WBC 3.7 L (3.8-10.6) k/uL RBC 2.41 L (3.80-5.40) m/uL Hgb 8.4 L (11.4-16.0) gm/dL Hct 24.0 L (34.0-46.0) % MCV 99.6 (80.0-100.0) fL MCH 35.0 (25.0-35.0) pg MCHC 35.2 (31.0-37.0) g/dL RDW 20.6 H (11.5-15.5) % Plt Count 146 L (150-450) k/uL MPV 8.6 Neutrophils % 66 % Lymphocytes % 23 % Monocytes % 8 % Eosinophils % 2 % Basophils % 0 % Neutrophils # 2.4 (1.3-7.7) k/uL Lymphocytes # 0.8 L (1.0-4.8) k/uL Monocytes # 0.3 (0-1.0) k/uL Eosinophils # 0.1 (0-0.7) k/uL Basophils # 0.0 (0-0.2) k/uL Poikilocytosis Moderate Anisocytosis Moderate Macrocytosis Moderate PT 10.9 (9.0-12.0) sec INR 1.0 (<1.2) APTT 28.3 (22.0-30.0) sec VBG pH (7.31-7.41) VBG pCO2 (37-51) mmHg VBG HCO3 (24-28) mmol/L Sodium (137-145) mmol/L Potassium (3.5-5.1) mmol/L Chloride (98-107) mmol/L Carbon Dioxide (22-30) mmol/L Anion Gap mmol/L BUN (7-17) mg/dL Creatinine (0.52-1.04) mg/dL Est GFR (CKD-EPI)AfAm (>60 ml/min/1.73 sqM) Est GFR (CKD-EPI)NonAf (>60 ml/min/1.73 sqM) Glucose (74-99) mg/dL POC Glucose (mg/dL) 97 (70-110) mg/dL POC Glu Supervisor Telephone Information ID Georgina Cruz Osmolality [phone]) mosm/kg Plasma Lactic Acid Roderick (0.7-2.0) mmol/L Calcium (8.4-10.2) mg/dL Total Bilirubin (0.2-1.3) mg/dL AST (14-36) U/L ALT (4-34) U/L Alkaline Phosphatase (38-126) U/L Ammonia (<30) umol/L NT-Pro-B Natriuret Pep pg/mL Total Protein (6.3-8.2) g/dL Albumin (3.5-5.0) g/dL TSH (0.465-4.680) mIU/L Urine Color Urine Appearance (Clear) Urine pH (5.0-8.0) Ur Specific [place] (1.001-1.035) Urine Protein (Negative) Urine Glucose (UA) (Negative) Urine Ketones (Negative) Urine Blood (Negative) Urine Nitrite (Negative) Urine Bilirubin (Negative) Urine Urobilinogen (<2.0) mg/dL Ur Leukocyte Esterase (Negative) Urine RBC (0-5) /hpf Urine WBC (0-5) /hpf Amorphous Sediment (None) /hpf Urine Bacteria (None) /hpf Urine Mucus (None) /hpf Urine Osmolality (50-1400) mosm/kg 11/06/21 11/06/21 11/06/21 Range/Units 12:16 12:16 12:16 WBC (3.8-10.6) k/uL RBC (3.80-5.40) m/uL Hgb (11.4-16.0) gm/dL Hct (34.0-46.0) % MCV (80.0-100.0) fL MCH (25.0-35.0) pg MCHC (31.0-37.0) g/dL RDW (11.5-15.5) % Plt Count (150-450) k/uL MPV Neutrophils % % Lymphocytes % % Monocytes % % Eosinophils % % Basophils % % Neutrophils # (1.3-7.7) k/uL Lymphocytes # (1.0-4.8) k/uL Monocytes # (0-1.0) k/uL Eosinophils # (0-0.7) k/uL Basophils # (0-0.2) k/uL Poikilocytosis Anisocytosis Macrocytosis PT (9.0-12.0) sec INR (<1.2) APTT (22.0-30.0) sec VBG pH (7.31-7.41) VBG pCO2 (37-51) mmHg VBG HCO3 (24-28) mmol/L Sodium 122 L (137-145) mmol/L Potassium 5.4 H (3.5-5.1) mmol/L Chloride 91 L (98-107) mmol/L Carbon Dioxide 25 (22-30) mmol/L Anion Gap 6 mmol/L BUN 32 H (7-17) mg/dL Creatinine 1.42 H (0.52-1.04) mg/dL Est GFR (CKD-EPI)AfAm 40 (>60 ml/min/1.73 sqM) Est GFR (CKD-EPI)NonAf 35 (>60 ml/min/1.73 sqM) Glucose 85 (74-99) mg/dL POC Glucose (mg/dL) (70-110) mg/dL POC Glu Supervisor Telephone Information ID Osmolality ([phone]) mosm/kg Plasma Lactic Acid Roderick (0.7-2.0) mmol/L Calcium 9.3 (8.4-10.2) mg/dL Total Bilirubin 0.5 (0.2-1.3) mg/dL AST 26 (14-36) U/L ALT <6 (4-34) U/L Alkaline Phosphatase 70 (38-126) U/L Ammonia (<30) umol/L NT-Pro-B Natriuret Pep 4790 pg/mL Total Protein 6.7 (6.3-8.2) g/dL Albumin 3.5 (3.5-5.0) g/dL TSH 4.290 (0.465-4.680) mIU/L Urine Color Light Yellow Urine Appearance Clear (Clear) Urine pH 5.5 (5.0-8.0) Ur Specific [place] 1.005 (1.001-1.035) Urine Protein Negative (Negative) Urine Glucose (UA) Negative (Negative) Urine Ketones Negative (Negative) Urine Blood Small H (Negative) Urine Nitrite Negative (Negative) Urine Bilirubin Negative (Negative) Urine Urobilinogen <2.0 (<2.0) mg/dL Ur Leukocyte Esterase Large H (Negative) Urine RBC 2 (0-5) /hpf Urine WBC 35 H (0-5) /hpf Amorphous Sediment Rare H (None) /hpf Urine Bacteria Rare H (None) /hpf Urine Mucus Rare H (None) /hpf Urine Osmolality (50-1400) mosm/kg 11/06/21 11/06/21 11/06/21 Range/Units 12:16 12:16 12:39 WBC (3.8-10.6) k/uL RBC (3.80-5.40) m/uL Hgb (11.4-16.0) gm/dL Hct (34.0-46.0) % MCV (80.0-100.0) fL MCH (25.0-35.0) pg MCHC (31.0-37.0) g/dL RDW (11.5-15.5) % Plt Count (150-450) k/uL MPV Neutrophils % % Lymphocytes % % Monocytes % % Eosinophils % % Basophils % % Neutrophils # (1.3-7.7) k/uL Lymphocytes # (1.0-4.8) k/uL Monocytes # (0-1.0) k/uL Eosinophils # (0-0.7) k/uL Basophils # (0-0.2) k/uL Poikilocytosis Anisocytosis Macrocytosis PT (9.0-12.0) sec INR (<1.2) APTT (22.0-30.0) sec VBG pH (7.31-7.41) VBG pCO2 (37-51) mmHg VBG HCO3 (24-28) mmol/L Sodium (137-145) mmol/L Potassium (3.5-5.1) mmol/L Chloride (98-107) mmol/L Carbon Dioxide (22-30) mmol/L Anion Gap mmol/L BUN (7-17) mg/dL Creatinine (0.52-1.04) mg/dL Est GFR (CKD-EPI)AfAm (>60 ml/min/1.73 sqM) Est GFR (CKD-EPI)NonAf (>60 ml/min/1.73 sqM) Glucose (74-99) mg/dL POC Glucose (mg/dL) (70-110) mg/dL POC Glu Supervisor Telephone Information ID Osmolality [phone] L ([phone]) mosm/kg Plasma Lactic Acid Roderick 0.5 L (0.7-2.0) mmol/L Calcium (8.4-10.2) mg/dL Total Bilirubin (0.2-1.3) mg/dL AST (14-36) U/L ALT (4-34) U/L Alkaline Phosphatase (38-126) U/L Ammonia <9 (<30) umol/L NT-Pro-B Natriuret Pep pg/mL Total Protein (6.3-8.2) g/dL Albumin (3.5-5.0) g/dL TSH (0.465-4.680) mIU/L Urine Color Urine Appearance (Clear) Urine pH (5.0-8.0) Ur Specific [place] (1.001-1.035) Urine Protein (Negative) Urine Glucose (UA) (Negative) Urine Ketones (Negative) Urine Blood (Negative) Urine Nitrite (Negative) Urine Bilirubin (Negative) Urine Urobilinogen (<2.0) mg/dL Ur Leukocyte Esterase (Negative) Urine RBC (0-5) /hpf Urine WBC (0-5) /hpf Amorphous Sediment (None) /hpf Urine Bacteria (None) /hpf Urine Mucus (None) /hpf Urine Osmolality 201 (50-1400) mosm/kg 11/06/21 Range/Units 12:39 WBC (3.8-10.6) k/uL RBC (3.80-5.40) m/uL Hgb (11.4-16.0) gm/dL Hct (34.0-46.0) % MCV (80.0-100.0) fL MCH (25.0-35.0) pg MCHC (31.0-37.0) g/dL RDW (11.5-15.5) % Plt Count (150-450) k/uL MPV Neutrophils % % Lymphocytes % % Monocytes % % Eosinophils % % Basophils % % Neutrophils # (1.3-7.7) k/uL Lymphocytes # (1.0-4.8) k/uL Monocytes # (0-1.0) k/uL Eosinophils # (0-0.7) k/uL Basophils # (0-0.2) k/uL Poikilocytosis Anisocytosis Macrocytosis PT (9.0-12.0) sec INR (<1.2) APTT (22.0-30.0) sec VBG pH 7.36 (7.31-7.41) VBG pCO2 51 (37-51) mmHg VBG HCO3 28 (24-28) mmol/L Sodium (137-145) mmol/L Potassium (3.5-5.1) mmol/L Chloride (98-107) mmol/L Carbon Dioxide (22-30) mmol/L Anion Gap mmol/L BUN (7-17) mg/dL Creatinine (0.52-1.04) mg/dL Est GFR (CKD-EPI)AfAm (>60 ml/min/1.73 sqM) Est GFR (CKD-EPI)NonAf (>60 ml/min/1.73 sqM) Glucose (74-99) mg/dL POC Glucose (mg/dL) (70-110) mg/dL POC Glu Supervisor Telephone Information ID Osmolality ([phone]) mosm/kg Plasma Lactic Acid Roderick (0.7-2.0) mmol/L Calcium (8.4-10.2) mg/dL Total Bilirubin (0.2-1.3) mg/dL AST (14-36) U/L ALT (4-34) U/L Alkaline Phosphatase (38-126) U/L Ammonia (<30) umol/L NT-Pro-B Natriuret Pep pg/mL Total Protein (6.3-8.2) g/dL Albumin (3.5-5.0) g/dL TSH (0.465-4.680) mIU/L Urine Color Urine Appearance (Clear) Urine pH (5.0-8.0) Ur Specific [place] (1.001-1.035) Urine Protein (Negative) Urine Glucose (UA) (Negative) Urine Ketones (Negative) Urine Blood (Negative) Urine Nitrite (Negative) Urine Bilirubin (Negative) Urine Urobilinogen (<2.0) mg/dL Ur Leukocyte Esterase (Negative) Urine RBC (0-5) /hpf Urine WBC (0-5) /hpf Amorphous Sediment (None) /hpf Urine Bacteria (None) /hpf Urine Mucus (None) /hpf Urine Osmolality (50-1400) mosm/kg - EKG Data EKG Comments: EKG demonstrates a sinus bradycardia with a rate of 47. [place] interval 104. QRS 93. QTC of 413. No acute ST segment elevations or depressions Disposition Clinical Impression: Hyponatremia, Bradycardia Disposition: ADMITTED IP TO THIS HOSP Condition: Stable Is patient prescribed a controlled substance at d/c from ED?: No Time of Disposition: 13:52 Decision to Admit Reason: Admit from EC Decision Date: 11/06/21 Decision Time: 13:52
[2021-11-06 13:09] LABS: VBG PH 7.36 (7.31-7.41)
[2021-11-06 13:26] LABS: AST 26 U/L (14-36); Alkaline Phosphatase 70 U/L (38-126); Potassium 5.4 mmol/L (3.5-5.1)
[2021-11-06 13:47] LABS: Lactic Acid, Venous 0.5 mmol/L (0.7-2.0)
[2021-11-06] MEDS ORDERED: NALOXONE 0.4 MG/ML 1 ML VIAL IV PRN (13:52)
[2021-11-06] MEDS ORDERED: FUROSEMIDE 10 MG/ML 4 ML VIAL IV STA (13:54)
[2021-11-06] MEDS ORDERED: MECLIZINE 12.5 MG TAB PO PRN (14:29)
[2021-11-06] MEDS ORDERED: NA PHOS,M-B/NA PHOS,DI-BA 133 ML ENEMA RECTAL PRN (14:29)
[2021-11-06] MEDS ORDERED: MAGNESIUM HYDROXIDE 2,400 MG/10 ML CUP PO PRN (14:29)
[2021-11-06] MEDS ORDERED: bisacodyL 10 MG SUPP RECTAL PRN (14:29)
[2021-11-06] MEDS ORDERED: DEXTROSE 50% SYRINGE 50 ML IVP PRN ×2 (14:35)
[2021-11-06] MEDS ORDERED: DEXTROSE 50% SYRINGE 50 ML IVP ONE (15:29)
[2021-11-06] MEDS ORDERED: INSULIN REGULAR 100 UNIT/ML VIAL (IV) IV ONE (15:29)
[2021-11-06] MEDS: SODIUM CHLORIDE 0.9% 1,000 ML IV SCH (15:30)
--- NOTE | 2021-11-06 15:47 | P.HPIM ---
History of Present Illness H&P Date: 11/06/21 Chief Complaint: Patient sent from assisted facility for cause of abn ormal labs Patient is a 81-year-old female with a past medical history of atrial fibrilla tion on anticoagulation with Eliquis, diastolic heart failure, COPD, hypertension, hyperlipidemia, coronary artery disease, CK D stage IV and type 2 diabetes mellitus who was recently admitted for generalized weakness and was treated for UTI and discharged on Bactrim for 5 more days to assisted facility. Patient had labs done at the assisted facility and she is found to have hyponatremia and hyperkalemia so she was sent back to the ED. Patient states that she has a difficult time eating. She states that she can only tolerate pured diet. She stated that she has not been eating much. Patient also states that at the assisted facility she had issues with urinary retention and they had to place a Cuevas catheter after straight cathing her twice. In the ED patient found to have a sodium of 122. UA also indicated UTI. Upon further questioning patient complains of some suprapubic pain. Patient was referred for admission to the hospitalist service. Review of Systems 10 ROS reviewed and are negative except as noted in HPI Past Medical History Past Medical History: Atrial Fibrillation, Atrial Flutter, Coronary Artery Disease (CAD), Heart Failure, COPD, Diabetes Mellitus, GERD/Reflux, Hyperlipidemia, Hypertension, Myocardial Infarction (PA), Musculoskeletal Disorder, Renal Disease, Respiratory Disorder, Sleep Apnea/CPAP/BIPAP, Vascular Disorder Additional Past Medical History / Comment(s): NIDDM type II, neuropathy bilater al legs/feet, CKD stage III, nephrolithiasis, anemia, diastolic CHF, cardiac valve disease, pulmonary htn, home oxygen prn, afib/flutter with RVR, pt states she fell one year ago and suffered 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 Last Myocardial Infarction Date:: 1999 History of Any Multi-Drug Resistant Organisms: None Reported Past Surgical History: Appendectomy, Coronary Bypass/CABG, Heart Catheterization, Hysterectomy, Tonsillectomy Additional Past Surgical History / Comment(s): 1999 CABG 4 vessel, BETHEL/cardioversion, abdominal aortagrams/bilateral runoffs, R atherectomy/PTBA/stent to R SFA, R neck benign lymph node removed, cysto/lithotripsy/aborted d/t unable to visualize stone, EGD, colonoscopy Past Anesthesia/Blood Transfusion Reactions: Motion Sickness Additional Past Anesthesia/Blood Transfusion Reaction / Comment(s): Pt has motion sickness/clausterphobia. Past Psychological History: No Psychological Hx Reported Additional Psychological History / Comment(s): Pt resides alone i her home. She states she has [facility] home care. She uses a wheeled walker and a scooter, She has home oxygen that she wears prn. She has a glucometer and nebulizer. Pt states Nicolasa and Messi takes her to [facility], pt does not drive. pt states she has not used home 02 for the last two months. Smoking Status: Former smoker Past Alcohol Use History: None Reported Additional Past Alcohol Use History / Comment(s): Pt started smoking in 1951 and quit in 2012 Past Drug Use History: None Reported - Past Family History Brother(s) Family Medical History: Cancer Son(s) Family Medical History: Cancer, Myocardial Infarction (PA) Sister(s) Family Medical History: Cancer Mother Family Medical History: COPD, Myocardial Infarction (PA) Additional Family Medical History / Comment(s): mother of PA-pt cannot recall at what age. Medications and Allergies Home Medications Medication Instructions Recorded Confirmed Type Ezetimibe [Zetia] 10 mg PO DAILY@1700 11/20/13 11/06/21 History Lovastatin [Mevacor] 10 mg PO DAILY@1700 11/20/13 11/06/21 History Apixaban [Eliquis] 2.5 mg PO BID@0800,1700 02/17/20 11/06/21 History Cyanocobalamin [Vitamin B-12] 500 mcg PO HS 02/17/20 11/06/21 History Epoetin Obed [Procrit] 10,000 unit SQ TH@0800 02/05/21 11/06/21 History Ferrous Sulfate [Iron (65 MG 325 mg PO DAILY@1700 02/05/21 11/06/21 History Elemental)] Metoprolol Tartrate [Lopressor] 12.5 mg PO BID@0800,1700 02/05/21 11/06/21 History Aspirin EC [Ecotrin Low Dose] 81 mg PO DAILY@1700 07/19/21 11/06/21 History Colchicine [Mitigare] 0.6 mg PO BID@0800,169907/19/21 11/06/21 History sitaGLIPtin [Januvia] 50 mg PO DAILY@0900 07/19/21 11/06/21 History Folic Acid 1 mg PO DAILY@169910/22/21 11/06/21 History Calcium Carbonate/Vitamin D3 1 cap PO TID@0800,1400,209911/06/21 11/06/21 History [Calcium 600 mg-D3 10 Mcg (400 Iu)] Carbidopa/Levodopa [Parcopa 25-100 1 tab PO TID@0800,1400,209911/06/21 11/06/21 History mg Odt] Ensure Enlive 237 ml PO BID@0800,0 11/06/21 11/06/21 History Furosemide 10mg/Ml 40 mg IV ONCE 11/06/21 11/06/21 History Gabapentin [Neurontin] 100 mg PO BID@0800,1400 11/06/21 11/06/21 History Gabapentin [Neurontin] 200 mg PO HS@209911/06/21 11/06/21 History Magnesium Hydroxide [Milk of 7,200 mg PO Q48H PRN 11/06/21 11/06/21 History Magnesia Concentrate] Meclizine [Antivert] 12.5 mg PO Q8H PRN 11/06/21 11/06/21 History Na Phos,M-B/Na Phos,Di-Ba [Fleet 133 ml RECTAL DAILY PRN 11/06/21 11/06/21 History Adult] Sennosides/Docusate Sodium [Senna 1 tab PO BID@0800,0 11/06/21 11/06/21 History Plus 8.6-50 mg Tablet] Sodium Polystyrene Sulfonate 15 gm PO ONCE 11/06/21 11/06/21 History [Kayexalate] bisacodyL [Dulcolax] 10 mg RECTAL DAILY PRN 11/06/21 11/06/21 History Allergies Allergy/AdvReac Type Severity Reaction Status Date / Time tuberculin, purified protein Allergy Per [place] Verified 11/06/21 13:02 deriva albuterol [From DuoNeb] AdvReac Nausea Verified 11/06/21 13:02 cortisone AdvReac PAIN Verified 11/06/21 13:02 hydrocodone AdvReac Nausea Verified 11/06/21 13:02 ipratropium [From DuoNeb] AdvReac Nausea Verified 11/06/21 13:02 procaine HCl [From Novocain] AdvReac pain Verified 11/06/21 13:02 allergy medicines AdvReac "dries me Uncoded 11/06/21 13:02 out, bloody noses,generalized pain" Physical Exam Osteopathic Statement: *. No significant issues noted on an osteopathic structural exam other than those noted in the History and Physical/Consult. Vitals: Vital Signs Temp Pulse Pulse Resp BP BP Pulse Ox 11/06/21 14:43 97.6 F 47 L 18 136/59 100 11/06/21 14:22 97.3 F L 48 L 16 151/59 99 11/06/21 13:13 45 L 14 135/53 100 11/06/21 12:56 43 L 118/32 100 11/06/21 12:03 46 L 18 127/54 92 L Intake and Output 11/06/21 11/06/21 11/06/21 06:59 14:59 22:59 Other: Weight 74.843 kg General: [Alert and oriented, well nourished, no acute distress, appears chronically debilitated]. Eye: [PERRL, EOMI, normal conjunctiva]. HENT: [Normocephalic, clear tympanic membranes, normal hearing, moist oral mucosa, no scleral icterus, no sinus tenderness]. Neck: [Supple, non-tender, no carotid bruits, no JVD, no lymphadenopathy]. Lungs: [Diminished breath sounds bilaterally, non-labored respiration]. Heart: [Normal rate, regular rhythm, no murmur, gallop or edema]. Abdomen: [Soft, non-tender, non-distended, normal bowel sounds, no masses]. Musculoskeletal: [Normal range of motion and strength, no tenderness or swelling]. Skin: [Skin is warm, dry and pink, no rashes or lesions]. Neurologic: [Awake, alert, and oriented X3, CN II-XII intact]. Psychiatric: [Cooperative, appropriate mood and affect]. Results CBC & Chem 7: 11/06/21 12:16 11/06/21 12:16 Labs: Abnormal Lab Results - Last 24 Hours (Table) 11/06/21 11/06/21 11/06/21 Range/Units 12:16 12:16 12:16 WBC 3.7 L (3.8-10.6) k/uL RBC 2.41 L (3.80-5.40) m/uL Hgb 8.4 L (11.4-16.0) gm/dL Hct 24.0 L (34.0-46.0) % RDW 20.6 H (11.5-15.5) % Plt Count 146 L (150-450) k/uL Lymphocytes # 0.8 L (1.0-4.8) k/uL Sodium 122 L (137-145) mmol/L Potassium 5.4 H (3.5-5.1) mmol/L Chloride 91 L (98-107) mmol/L BUN 32 H (7-17) mg/dL Creatinine 1.42 H (0.52-1.04) mg/dL Osmolality (280-301) mosm/kg Plasma Lactic Acid Roderick (0.7-2.0) mmol/L Urine Blood Small H (Negative) Ur Leukocyte Esterase Large H (Negative) Urine WBC 35 H (0-5) /hpf Amorphous Sediment Rare H (None) /hpf Urine Bacteria Rare H (None) /hpf Urine Mucus Rare H (None) /hpf 11/06/21 11/06/21 Range/Units 12:16 12:39 WBC (3.8-10.6) k/uL RBC (3.80-5.40) m/uL Hgb (11.4-16.0) gm/dL Hct (34.0-46.0) % RDW (11.5-15.5) % Plt Count (150-450) k/uL Lymphocytes # (1.0-4.8) k/uL Sodium (137-145) mmol/L Potassium (3.5-5.1) mmol/L Chloride (98-107) mmol/L BUN (7-17) mg/dL Creatinine (0.52-1.04) mg/dL Osmolality 263 L (280-301) mosm/kg Plasma Lactic Acid Roderick 0.5 L (0.7-2.0) mmol/L Urine Blood (Negative) Ur Leukocyte Esterase (Negative) Urine WBC (0-5) /hpf Amorphous Sediment (None) /hpf Urine Bacteria (None) /hpf Urine Mucus (None) /hpf Assessment and Plan Assessment: -We'll give patient gentle fluids. We'll need to monitor patient's volume status closely as she does have a history of chronic diastolic heart failure. -Trend BMP daily -Hold her Lasix for now -Consult nephrology Mild hyperkalemia -Suspected due to Bactrim -Hold Bactrim -Patient refusing to take Kayexalate -Patient does have bradycardia so we will correct with Sinus bradycardia -Could be contributing to patient's weakness -We'll treat hyperkalemia and also hold beta raleigh -If heart rate does not improve will consult cardiology Generalized weakness secondary to multiple comorbidities and exacerbated by bradycardia and dehydration -Patient will return back to assisted facility once medically stable Urinary tract infection secondary to chronic indwelling catheter -Patient had Cuevas catheter placed at the assisted facility -Does not meet sepsis criteria -On previous admission patient's urine culture grew Serratia marcescens that was sensitive to Zosyn so we'll start patient on Zosyn. -Follow urine culture and this admission -Obtain blood cultures CK D stage IV -Patient's creatinine at baseline Anemia of chronic kidney disease -Resume Aranesp injections -Patient's hemoglobin at her baseline Atrial fibrillation -Resume ELiquis -Resume metoprolol due to beta cardia Parkinson's disease -Resume home meds Peripheral neuropathy -Hold gabapentin as it could be contributed to her weakness and lethargy Hypertension: Control -Resume home meds Diabetes mellitus -Resume Guardian's and sliding scale insulin Hyperlipidemia -Resume statin CODE STATUS:full code DVT prophylaxis: Сергейquashly Discussed with: Patient, ER, rn Anticipated length of stay > than [address]: SNF A total of 75 minutes was spent on the care of this complex patient more than 50% of the time was spent in counseling and care coordination.
[2021-11-06] MEDS: SENNOSIDES-DOCUSATE SODIUM 1 EACH TAB PO SCH (16:52)
[2021-11-06] MEDS: EZETIMIBE 10 MG TAB PO SCH (16:52)
[2021-11-06] MEDS: FOLIC ACID 1 MG TAB PO SCH (16:52)
[2021-11-06] MEDS: FERROUS SULFATE 325 MG TAB PO SCH (16:52)
[2021-11-06] MEDS: ASPIRIN 81 MG PO SCH (16:52)
[2021-11-06] MEDS: APIXABAN 2.5 MG TABLET PO SCH (16:52)
[2021-11-06] MEDS: ATORVASTATIN 10 MG TAB PO SCH (16:53)
[2021-11-06] MEDS: PIPERACILLIN-TAZOBACTAM 3.375 GM in SODIUM CHLORIDE 0.9% 100 ML IVPB SCH (16:53)
[2021-11-06] MEDS: COLCHICINE 0.6 MG EACH PO SCH ×2 (16:58→17:23)
[2021-11-06] MEDS ORDERED: METOPROLOL TARTRATE 25 MG TAB PO SCH (17:00)
[2021-11-06] MEDS ORDERED: NON FORMULARY DRUG (Ensure Enlive 237 ML) PO SCH (17:00)
[2021-11-06 17:09] LABS: Glucose,Whole Blood 102 mg/dL (70-110)
[2021-11-06] MEDS: INSULIN ASPART (NovoLOG) 100 UNIT/ML VIAL SQ SCH ×2 (18:36→20:11)
[2021-11-06] MEDS: LEVODOPA PO SCH (20:03)
[2021-11-06] MEDS: CALCIUM CARB-VIT D 500 MG-5 MCG TAB PO SCH (20:03)
[2021-11-06] MEDS: CARBIDOPA PO SCH (20:03)
[2021-11-06] MEDS: CYANOCOBALAMIN 500 MCG TAB PO SCH (20:03)
[2021-11-06 20:12] LABS: Glucose,Whole Blood 103 mg/dL (70-110)
[2021-11-07] MEDS: PIPERACILLIN-TAZOBACTAM 3.375 GM in SODIUM CHLORIDE 0.9% 100 ML IVPB SCH ×4 (00:13→23:35)
[2021-11-07 06:50] LABS: Glucose,Whole Blood 91 mg/dL (70-110)
[2021-11-07] MEDS: SODIUM CHLORIDE 0.9% 1,000 ML IV SCH ×2 (09:20→17:09)
[2021-11-07] MEDS: INSULIN ASPART (NovoLOG) 100 UNIT/ML VIAL SQ SCH ×4 (09:21→21:53)
[2021-11-07] MEDS: APIXABAN 2.5 MG TABLET PO SCH ×2 (09:29→16:57)
[2021-11-07] MEDS: SENNOSIDES-DOCUSATE SODIUM 1 EACH TAB PO SCH ×2 (09:29→16:57)
[2021-11-07] MEDS: CALCIUM CARB-VIT D 500 MG-5 MCG TAB PO SCH ×3 (09:29→22:06)
[2021-11-07] MEDS: LEVODOPA PO SCH ×2 (09:39→09:49)
[2021-11-07] MEDS: CARBIDOPA PO SCH ×2 (09:39→09:49)
[2021-11-07] MEDS: LINAGLIPTIN 5 MG TABLET PO SCH (09:40)
[2021-11-07] MEDS: COLCHICINE 0.6 MG EACH PO SCH ×2 (09:42→16:57)
[2021-11-07 11:20] LABS: Basophils # (A) 0.02 X 10*3/uL (0.00-0.10); Basophils % (A) 0.5 %; Eosinophils # (A) 0.12 X 10*3/uL (0.04-0.35); Eosinophils % (A) 2.9 %; HCT 23.9 % (37.2-46.3); HGB 7.7 g/dL (12.0-15.0); Immature Grans, Automated 2.4 %; Lymphocytes # (A) 0.77 X 10*3/uL (0.90-5.00); Lymphocytes % (A) 18.6 %; MCH 32.9 pg (27.0-32.0); MCHC 32.2 g/dL (32.0-37.0); MCV 102.1 fL (80.0-97.0); Mean Platelet Volume 11.4 fL (9.5-12.2); Monocytes # (A) 0.43 X 10*3/uL (0.20-1.00); Monocytes % (A) 10.4 %; NRBC Per 100 WBC 0 /100 WBCS (0.0-0.0); Neutrophils # (A) 2.69 X 10*3/uL (1.80-7.70); Neutrophils % (A) 65.2 %; Platelet Count 147 X 10*3/uL (140-440); RBC 2.34 X 10*6/uL (4.10-5.20); RDW 20.3 % (11.5-14.5); WBC 4.13 X 10*3/uL (4.50-10.00)
--- NOTE | 2021-11-07 11:27 | P.PN ---
Subjective Progress Note Date: 11/07/21 Patient is complaining that the nurses need to wake her up when her food comes and they also need to adjust her bed so that she is upright. I discussed these complaints with the nurse. Patient states that she is able to tolerate a pured diet well. I also wants to eat some applesauce without any issues. Objective - Vital Signs Vital signs: Vital Signs Temp 97.8 F 11/07/21 07:58 Pulse 50 L 11/07/21 07:58 Resp 16 11/07/21 07:58 BP 155/68 11/07/21 07:58 Pulse Ox 99 11/07/21 07:58 FiO2 Intake & Output 11/06/21 11/07/21 11/07/21 18:59 06:59 18:59 Intake Total 120 100 Output Total 875 Balance 120 -775 Weight 74.843 kg Intake: Intake, IV Titration 100 Amount Piperacillin-Tazobactam 3 100 .375 gm In Sodium Chloride 0.9% 100 ml @ 25 mls/hr IVPB Q8HR [facility] Rx# :[id number] Oral 120 Output: Urine 875 Other: Voiding Method Indwelling Catheter Indwelling Catheter Indwelling Catheter - Exam General examination - Alert and Oriented 3 in NAD, appears chronically debilitated Heart - + S1S2 no murmurs Lungs - Clear to auscultation Abdomen soft NT ND +ve BS Extremities - No edema 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 - Moving 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 spontaneously Psych - Calm and cooperative - Labs CBC & Chem 7: 11/07/21 05:58 11/06/21 12:16 Labs: Abnormal Lab Results - Last 24 Hours (Table) 11/06/21 11/06/21 11/06/21 Range/Units 12:16 12:16 12:16 WBC 3.7 L (3.8-10.6) k/uL RBC 2.41 L (3.80-5.40) m/uL Hgb 8.4 L (11.4-16.0) gm/dL Hct 24.0 L (34.0-46.0) % MCV (80.0-97.0) fL MCH (27.0-32.0) pg RDW 20.6 H (11.5-15.5) % Plt Count 146 L (150-450) k/uL Immature Gran # (0.00-0.04) X 10*3/uL Lymphocytes # 0.8 L (1.0-4.8) k/uL Sodium 122 L (137-145) mmol/L Potassium 5.4 H (3.5-5.1) mmol/L Chloride 91 L (98-107) mmol/L BUN 32 H (7-17) mg/dL Creatinine 1.42 H (0.52-1.04) mg/dL Osmolality (280-301) mosm/kg Plasma Lactic Acid Roderick (0.7-2.0) mmol/L Urine Blood Small H (Negative) Ur Leukocyte Esterase Large H (Negative) Urine WBC 35 H (0-5) /hpf Amorphous Sediment Rare H (None) /hpf Urine Bacteria Rare H (None) /hpf Urine Mucus Rare H (None) /hpf 11/06/21 11/06/21 11/07/21 Range/Units 12:16 12:39 05:58 WBC 4.13 L (3.8-10.6) k/uL RBC 2.34 L (3.80-5.40) m/uL Hgb 7.7 L (11.4-16.0) gm/dL Hct 23.9 L (34.0-46.0) % MCV 102.1 H (80.0-97.0) fL MCH 32.9 H (27.0-32.0) pg RDW 20.3 H (11.5-15.5) % Plt Count (150-450) k/uL Immature Gran # 0.10 H (0.00-0.04) X 10*3/uL Lymphocytes # 0.77 L (1.0-4.8) k/uL Sodium (137-145) mmol/L Potassium (3.5-5.1) mmol/L Chloride (98-107) mmol/L BUN (7-17) mg/dL Creatinine (0.52-1.04) mg/dL Osmolality 263 L (280-301) mosm/kg Plasma Lactic Acid Roderick 0.5 L (0.7-2.0) mmol/L Urine Blood (Negative) Ur Leukocyte Esterase (Negative) Urine WBC (0-5) /hpf Amorphous Sediment (None) /hpf Urine Bacteria (None) /hpf Urine Mucus (None) /hpf Microbiology - Last 24 Hours (Table) 11/06/21 12:16 Urine Culture - Preliminary Urine,Voided Assessment and Plan Assessment: -We'll give patient gentle fluids. We'll need to monitor patient's volume status closely as she does have a history of chronic diastolic heart failure. -Trend BMP daily -Hold her Lasix for now -Nephrology consult pending Mild hyperkalemia -Suspected due to Bactrim -Hold Bactrim -A.m. labs pending Sinus bradycardia -Could be contributing to patient's weakness -We'll treat hyperkalemia and also hold beta raleigh -Heart rate is in the low 50s so will consult cardiology Generalized weakness secondary to multiple comorbidities and exacerbated by bradycardia and dehydration -Patient will return back to [facility] facility once medically stable Urinary tract infection secondary to chronic indwelling catheter -Patient had Cuevas catheter placed at the [facility] facility -Does not meet sepsis criteria -On previous admission patient's urine culture grew Serratia marcescens that was sensitive to Zosyn so we'll start patient on Zosyn. -Follow urine culture and this admission -Obtain blood cultures CK D stage IV -Patient's creatinine at baseline Anemia of chronic kidney disease -Resume Aranesp injections -Patient's hemoglobin at her baseline Atrial fibrillation -Resume ELiquis -Hold metoprolol due to bradycardia Parkinson's disease -Resume home meds Peripheral neuropathy -Hold gabapentin as it could be contributed to her weakness and lethargy Hypertension: Control -Resume home meds Diabetes mellitus -Resume Guardian's and sliding scale insulin Hyperlipidemia -Resume statin CODE STATUS:full code DVT prophylaxis: ELiquis Anticipated length of stay > than [address]: SNF A total of 75 minutes was spent on the care of this complex patient more than 50% of the time was spent in counseling and care coordination.
[2021-11-07 11:58] LABS: Glucose,Whole Blood 123 mg/dL (70-110)
[2021-11-07] MEDS: CARBIDOPA-LEVODOPA 25-100 MG 1 EACH TAB PO SCH ×3 (12:31→22:06)
[2021-11-07 12:43] LABS: African American GFR (CKD) 35.5 (60.0-200.0); Anion Gap 9.8 mmol/L (10.00-18.00); BUN/Creat Ratio 17.24 Ratio (12.00-20.00); Blood Urea Nitrogen 26.9 mg/dL (9.0-27.0); Calcium 9.2 mg/dL (8.7-10.3); Carbon Dioxide 23.9 mmol/L (20.0-27.5); Non-African American GFR(CKD) 30.6 (60.0-200.0); Potassium 5.2 mmol/L (3.5-5.5)
[2021-11-07 12:54] VITALS: BMI 26.6
[2021-11-07] MEDS: ACETAMINOPHEN TAB 325 MG TAB PO PRN ×2 (15:24→22:31)
--- NOTE | 2021-11-07 15:30 | P.NPCON ---
History of Present Illness - Reason for Consult Consult date: 11/07/21 acute renal failure, hyponatremia - Chief Complaint Mental status - History of Present Illness Admitted from assisted with altered mental status. History of CKD stage IV with a baseline creatinine 1.5-1.6 MG per DL. She has history of chronic hyponatremia, with a baseline sodium of 132-134. On admission serum sodium was 122, improved to 126 today. Currently on IV fluids. Unable to get history from the patient, poor historian most of the history obtained from the chart. Review of Systems Constitutional: Reports as per HPI Past Medical History Past Medical History: Atrial Fibrillation, Atrial Flutter, Coronary Artery Disease (CAD), Heart Failure, COPD, Diabetes Mellitus, GERD/Reflux, Hyperlipidemia, Hypertension, Myocardial Infarction (HI), Musculoskeletal Disorder, Renal Disease, Respiratory Disorder, Sleep Apnea/CPAP/BIPAP, Vascular Disorder Additional Past Medical History / Comment(s): NIDDM type II, neuropathy bilateral legs/feet, CKD stage III, nephrolithiasis, anemia, diastolic CHF, cardiac valve disease, pulmonary htn, home oxygen prn, afib/flutter with RVR, pt states she fell one year ago and suffered 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 Last Myocardial Infarction Date:: 1999 History of Any Multi-Drug Resistant Organisms: None Reported Past Surgical History: Appendectomy, Coronary Bypass/CABG, Heart Catheterization, Hysterectomy, Tonsillectomy Additional Past Surgical History / Comment(s): 1999 CABG 4 vessel, BETHEL/cardioversion, abdominal aortagrams/bilateral runoffs, R atherectomy/PTBA/stent to R SFA, R neck benign lymph node removed, cysto/litho tripsy/aborted d/t unable to visualize stone, EGD, colonoscopy Past Anesthesia/Blood Transfusion Reactions: Motion Sickness Additional Past Anesthesia/Blood Transfusion Reaction / Comment(s): Pt has motion sickness/clausterphobia. Past Psychological History: No Psychological Hx Reported Smoking Status: Former smoker - Past Family History Brother(s) Family Medical History: Cancer Son(s) Family Medical History: Cancer, Myocardial Infarction (HI) Sister(s) Family Medical History: Cancer Mother Family Medical History: COPD, Myocardial Infarction (HI) Additional Family Medical History / Comment(s): mother of HI-pt cannot recall at what age. Medications and Allergies Home Medications Medication Instructions Recorded Confirmed Type Ezetimibe [Zetia] 10 mg PO DAILY@1700 11/20/13 11/06/21 History Lovastatin [Mevacor] 10 mg PO DAILY@1700 11/20/13 11/06/21 History Apixaban [Eliquis] 2.5 mg PO BID@0800,1700 02/17/20 11/06/21 History Cyanocobalamin [Vitamin B-12] 500 mcg PO HS 02/17/20 11/06/21 History Epoetin Obed [Procrit] 10,000 unit SQ TH@0800 02/05/21 11/06/21 History Ferrous Sulfate [Iron (65 MG 325 mg PO DAILY@169902/05/21 11/06/21 History Elemental)] Metoprolol Tartrate [Lopressor] 12.5 mg PO BID@0800,169902/05/21 11/06/21 History Aspirin EC [Ecotrin Low Dose] 81 mg PO DAILY@169907/19/21 11/06/21 History Colchicine [Mitigare] 0.6 mg PO BID@0800,169907/19/21 11/06/21 History sitaGLIPtin [Januvia] 50 mg PO DAILY@0900 07/19/21 11/06/21 History Folic Acid 1 mg PO DAILY@169910/22/21 11/06/21 History Calcium Carbonate/Vitamin D3 1 cap PO TID@0800,1400,209911/06/21 11/06/21 History [Calcium 600 mg-D3 10 Mcg (400 Iu)] Carbidopa/Levodopa [Parcopa 25-100 1 tab PO TID@0800,1400,209911/06/21 11/06/21 History mg Odt] Ensure Enlive 237 ml PO BID@0800,169911/06/21 11/06/21 History Furosemide 10mg/Ml 40 mg IV ONCE 11/06/21 11/06/21 History Gabapentin [Neurontin] 100 mg PO BID@0800,1400 11/06/21 11/06/21 History Gabapentin [Neurontin] 200 mg PO HS@2100 11/06/21 11/06/21 History Magnesium Hydroxide [Milk of 7,200 mg PO Q48H PRN 11/06/21 11/06/21 History Magnesia Concentrate] Meclizine [Antivert] 12.5 mg PO Q8H PRN 11/06/21 11/06/21 History Na Phos,M-B/Na Phos,Di-Ba [Fleet 133 ml RECTAL DAILY PRN 11/06/21 11/06/21 History Adult] Sennosides/Docusate Sodium [Senna 1 tab PO BID@0800,1700 11/06/21 11/06/21 History Plus 8.6-50 mg Tablet] Sodium Polystyrene Sulfonate 15 gm PO ONCE 11/06/21 11/06/21 History [Kayexalate] bisacodyL [Dulcolax] 10 mg RECTAL DAILY PRN 11/06/21 11/06/21 History Allergies Allergy/AdvReac Type Severity Reaction Status Date / Time tuberculin, purified protein Allergy Per [place] Verified 11/06/21 13:02 deriva albuterol [From DuoNeb] AdvReac Nausea Verified 11/06/21 13:02 cortisone AdvReac PAIN Verified 11/06/21 13:02 hydrocodone AdvReac Nausea Verified 11/06/21 13:02 ipratropium [From DuoNeb] AdvReac Nausea Verified 11/06/21 13:02 procaine HCl [From Novocain] AdvReac pain Verified 11/06/21 13:02 allergy medicines AdvReac "dries me Uncoded 11/06/21 13:02 out, bloody noses,generalized pain" Physical Exam Vitals: Vital Signs Temp Pulse Resp BP Pulse Ox 11/07/21 14:00 97.5 F L 55 L 18 131/67 99 11/07/21 07:58 97.8 F 50 L 16 155/68 99 11/07/21 01:42 98.2 F 47 L 16 128/72 100 11/06/21 20:00 51 L 14 11/06/21 19:24 98.3 F 51 L 14 127/72 100 Intake and Output 11/07/21 11/07/21 11/07/21 06:59 14:59 22:59 Intake Total 100 100 Output Total 875 1000 Balance -975 -932 Intake: Intake, IV Titration 100 100 Amount Piperacillin-Tazobactam 3 100 100 .375 gm In Sodium Chloride 0.9% 100 ml @ 25 mls/hr IVPB Q8HR [facility] Rx# :[id number] Output: Urine 875 1000 Other: Voiding Method Indwelling Catheter Weight 74.843 kg No acute distress S1-S2 heard Decreased breath sounds No edema Results - Lab Results Most recent lab results Calcium 9.2 mg/dL (8.7-10.3) 11/07/21 05:58 11/07/21 05:58 11/07/21 05:58 Assessment and Plan Assessment: #1 acute on chronic hyponatremia suspect hypovolemia. #2 CK D stage IV with a baseline creatinine of 1.5-1.6 MG per DL. #3 systolic CHF. Plan: #1 continue with fluids today. #2 check serum osmolality, urine osmolality, urine sodium and potassium. Also check uric acid. #3 continue to hold Lasix today. #4 daily renal labs.
[2021-11-07 16:16] LABS: Appearance,Urine Clear (Clear); Bilirubin,Urine Negative (Negative); Blood,Urine Trace (Negative); Color,Urine Colorless; Glucose,Urine (UA) Negative (Negative); Ketones,Urine Negative (Negative); Leukocyte Esterase,Urine Moderate (Negative); Nitrite,Urine Negative (Negative); PH, Urine 6.5 (5.0-8.0); Protein,Urine Negative (Negative); RBC,Urine 2 /hpf (0-5); Specific Gravity,Urine 1.004 (1.001-1.035); Urobilinogen,Urine <2.0 mg/dL (<2.0); WBC,Urine 10 /hpf (0-5)
[2021-11-07 16:49] LABS: Glucose,Whole Blood 109 mg/dL (70-110)
[2021-11-07] MEDS: FERROUS SULFATE 325 MG TAB PO SCH (16:57)
[2021-11-07] MEDS: FOLIC ACID 1 MG TAB PO SCH (16:57)
[2021-11-07] MEDS: EZETIMIBE 10 MG TAB PO SCH (16:57)
[2021-11-07] MEDS: ATORVASTATIN 10 MG TAB PO SCH (16:57)
[2021-11-07] MEDS: ASPIRIN 81 MG PO SCH (16:57)
[2021-11-07 20:36] LABS: Glucose,Whole Blood 92 mg/dL (70-110)
[2021-11-07] MEDS: CYANOCOBALAMIN 500 MCG TAB PO SCH (22:06)
[2021-11-08 06:52] LABS: Glucose,Whole Blood 91 mg/dL (70-110)
[2021-11-08 06:59] LABS: Anisocytosis Moderate; Basophils % (A) 0 %; Eosinophils # (A) 0.1 k/uL (0-0.7); Eosinophils % (A) 3 %; HCT 23.7 % (34.0-46.0); HGB 7.9 gm/dL (11.4-16.0); Hypochromasia Moderate; Lymphocytes # (A) 0.7 k/uL (1.0-4.8); Lymphocytes % (A) 25 %; MCH 34.8 pg (25.0-35.0); MCHC 33.2 g/dL (31.0-37.0); Macrocytosis Marked; Mean Platelet Volume 8.4; Monocytes # (A) 0.2 k/uL (0-1.0); Monocytes % (A) 7 %; Neutrophils # (A) 1.7 k/uL (1.3-7.7); Neutrophils % (A) 60 %; Platelet Count 144 k/uL (150-450); Poikilocytosis Slight; RBC 2.26 m/uL (3.80-5.40); WBC 2.9 k/uL (3.8-10.6)
[2021-11-08 07:00] LABS: MCV 104.7 fL (80.0-100.0)
[2021-11-08 07:03] LABS: African American GFR (CKD) 46 (>60 ml/min/1.73 sqM); Anion Gap 5 mmol/L; Blood Urea Nitrogen 21 mg/dL (7-17); Calcium 8.4 mg/dL (8.4-10.2); Carbon Dioxide 23 mmol/L (22-30); Chloride 101 mmol/L (98-107); Glucose 72 mg/dL (74-99); Non-African American GFR(CKD) 40 (>60 ml/min/1.73 sqM); Potassium 5.1 mmol/L (3.5-5.1); Sodium 129 mmol/L (137-145)
[2021-11-08 09:22] LABS: Uric Acid 5.7 mg/dL (3.7-7.4)
[2021-11-08] MEDS: INSULIN ASPART (NovoLOG) 100 UNIT/ML VIAL SQ SCH ×4 (09:38→21:38)
[2021-11-08] MEDS: LINAGLIPTIN 5 MG TABLET PO SCH (09:39)
[2021-11-08] MEDS: SODIUM CHLORIDE 0.9% 1,000 ML IV SCH (09:42)
[2021-11-08] MEDS: APIXABAN 2.5 MG TABLET PO SCH ×2 (09:43→17:19)
[2021-11-08] MEDS: COLCHICINE 0.6 MG EACH PO SCH ×2 (09:43→17:19)
[2021-11-08] MEDS: CARBIDOPA-LEVODOPA 25-100 MG 1 EACH TAB PO SCH ×3 (09:43→21:37)
[2021-11-08] MEDS: SENNOSIDES-DOCUSATE SODIUM 1 EACH TAB PO SCH ×2 (09:43→17:19)
[2021-11-08] MEDS: PIPERACILLIN-TAZOBACTAM 3.375 GM in SODIUM CHLORIDE 0.9% 100 ML IVPB SCH ×3 (09:43→23:37)
[2021-11-08] MEDS: CALCIUM CARB-VIT D 500 MG-5 MCG TAB PO SCH ×3 (09:43→21:37)
--- NOTE | 2021-11-08 11:08 | P.PN ---
Subjective Progress Note Date: 11/08/21 On admission patient requested pureed diet so I started it for her. Patient says that she does have some swallowing issues. She says that she has a hard time swallowing anything that is not pureed. Per nurse patient has been swallowing her pills fine. Patient requesting for cereal with cold milk. I t old nurse that this was okay and if the patient showed any signs of choking that we should take it away from her. I also did put in a consult for speech therapy. Patient remains on IV fluids at 75 mL an hour. Her sodium level is improving. I encouraged the patient to drink water. Objective - Vital Signs Vital signs: Vital Signs Temp 97.8 F 11/08/21 08:00 Pulse 64 11/08/21 08:00 Resp 17 11/08/21 08:00 BP 171/65 11/08/21 08:00 Pulse Ox 99 11/08/21 08:00 FiO2 Intake & Output 11/07/21 11/08/21 11/08/21 18:59 06:59 18:59 Intake Total 100 Output Total 1000 1350 1000 Balance -900 -1350 -1000 Weight 74.843 kg Intake: Intake, IV Titration 100 Amount Piperacillin-Tazobactam 3 100 .375 gm In Sodium Chloride 0.9% 100 ml @ 25 mls/hr IVPB Q8HR [facility] Rx# :[id number] Output: Urine 1000 1350 1000 Other: Voiding Method Indwelling Catheter Indwelling Catheter Indwelling Catheter - Exam General examination - Alert and Oriented 3 in NAD, appears chronically debilitated Heart - + S1S2 no murmurs Lungs - Clear to auscultation Abdomen soft NT ND +ve BS Extremities - No edema 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 Psych - Calm and cooperative - Labs CBC & Chem 7: 11/08/21 05:47 11/08/21 05:47 Labs: Abnormal Lab Results - Last 24 Hours (Table) 11/07/21 11/07/21 11/07/21 Range/Units 05:58 05:58 11:56 WBC 4.13 L (4.50-10.00) X 10*3/uL RBC 2.34 L (4.10-5.20) X 10*6/uL Hgb 7.7 L (12.0-15.0) g/dL Hct 23.9 L (37.2-46.3) % MCV 102.1 H (80.0-97.0) fL MCH 32.9 H (27.0-32.0) pg RDW 20.3 H (11.5-14.5) % Plt Count (150-450) k/uL Immature Gran # 0.10 H (0.00-0.04) X 10*3/uL Lymphocytes # 0.77 L (0.90-5.00) X 10*3/uL Macrocytosis Sodium 126 L (135-145) mmol/L Chloride 93 L (96-109) mmol/L Anion Gap 9.80 L (10.00-18.00) mmol/L BUN (7-17) mg/dL Creatinine 1.6 H (0.6-1.5) mg/dL Est GFR (CKD-EPI)AfAm 35.5 L (60.0-200.0) Est GFR (CKD-EPI)NonAf 30.6 L (60.0-200.0) Glucose (74-99) mg/dL POC Glucose (mg/dL) 123 H (70-110) mg/dL Osmolality (280-301) mosm/kg Urine Blood (Negative) Ur Leukocyte Esterase (Negative) Urine WBC (0-5) /hpf Ur Random Potassium (25.0-125.0) mmol/L 11/07/21 11/07/21 11/07/21 Range/Units 15:53 15:53 17:43 WBC (4.50-10.00) X 10*3/uL RBC (4.10-5.20) X 10*6/uL Hgb (12.0-15.0) g/dL Hct (37.2-46.3) % MCV (80.0-97.0) fL MCH (27.0-32.0) pg RDW (11.5-14.5) % Plt Count (150-450) k/uL Immature Gran # (0.00-0.04) X 10*3/uL Lymphocytes # (0.90-5.00) X 10*3/uL Macrocytosis Sodium (135-145) mmol/L Chloride (96-109) mmol/L Anion Gap (10.00-18.00) mmol/L BUN (7-17) mg/dL Creatinine (0.6-1.5) mg/dL Est GFR (CKD-EPI)AfAm (60.0-200.0) Est GFR (CKD-EPI)NonAf (60.0-200.0) Glucose (74-99) mg/dL POC Glucose (mg/dL) (70-110) mg/dL Osmolality 276 L (280-301) mosm/kg Urine Blood Trace H (Negative) Ur Leukocyte Esterase Moderate H (Negative) Urine WBC 10 H (0-5) /hpf Ur Random Potassium 15.0 L (25.0-125.0) mmol/L 11/08/21 11/08/21 Range/Units 05:47 05:47 WBC 2.9 L (4.50-10.00) X 10*3/uL RBC 2.26 L (4.10-5.20) X 10*6/uL Hgb 7.9 L (12.0-15.0) g/dL Hct 23.7 L (37.2-46.3) % MCV 104.7 H D (80.0-97.0) fL MCH (27.0-32.0) pg RDW 21.0 H (11.5-14.5) % Plt Count 144 L (150-450) k/uL Immature Gran # (0.00-0.04) X 10*3/uL Lymphocytes # 0.7 L (0.90-5.00) X 10*3/uL Macrocytosis Marked A Sodium 129 L (135-145) mmol/L Chloride (96-109) mmol/L Anion Gap (10.00-18.00) mmol/L BUN 21 H (7-17) mg/dL Creatinine 1.26 H (0.6-1.5) mg/dL Est GFR (CKD-EPI)AfAm (60.0-200.0) Est GFR (CKD-EPI)NonAf (60.0-200.0) Glucose 72 L (74-99) mg/dL POC Glucose (mg/dL) (70-110) mg/dL Osmolality (280-301) mosm/kg Urine Blood (Negative) Ur Leukocyte Esterase (Negative) Urine WBC (0-5) /hpf Ur Random Potassium (25.0-125.0) mmol/L Microbiology - Last 24 Hours (Table) 11/06/21 12:16 Urine Culture - Preliminary Urine,Voided Group D Enterococcus 11/06/21 16:03 Blood Culture - Preliminary Blood No Growth after 24 hours 11/06/21 15:54 Blood Culture - Preliminary Blood No Growth after 24 hours Assessment and Plan Assessment: Hypovolemic hyponatremia -We'll give patient gentle fluids. We'll need to monitor patient's volume status closely as she does have a history of chronic diastolic heart failure. -Trend BMP daily -> sodium is improving -Hold her Lasix for now -Nephrology on board Mild hyperkalemia -Suspected due to Bactrim -Hold Bactrim -Resolved Sinus bradycardia -Could be contributing to patient's weakness -Hold Beta raleigh -Heart rate is still in the low 50s so will consult cardiology Generalized weakness secondary to multiple comorbidities and exacerbated by bradycardia and dehydration -Patient will return back to [facility] once medically stable Urinary tract infection secondary to chronic indwelling catheter -Patient had Cuevas catheter placed at the correction facility -Does not meet sepsis criteria -Urine culture growing group D enterococcus -Follow urine culture until finalized -Blood cultures negative to date CK D stage IV -Patient's creatinine at baseline Anemia of chronic kidney disease -Resume Aranesp injections -Patient's hemoglobin at her baseline Atrial fibrillation -Resume ELiquis -Hold metoprolol due to bradycardia Parkinson's disease -Resume home meds Peripheral neuropathy -Hold gabapentin as it could be contributed to her weakness and lethargy Hypertension: Control -Resume home meds Diabetes mellitus -Resume Tradjenta and sliding scale insulin Hyperlipidemia -Resume statin CODE STATUS:full code DVT prophylaxis: ELiquis Anticipated length of stay > than [address]: SNF in the next 24-48 hours if sodium normalizes and cleared by nephrology
[2021-11-08 11:39] LABS: Glucose,Whole Blood 99 mg/dL (70-110)
--- NOTE | 2021-11-08 12:41 | P.CRDCN ---
History of Present Illness History of present illness: HISTORY OF PRESENTING ILLNESS Patient is pleasant 81-year-old female with history of CAD status post CABG, PVD status post previous stenting in January 2020, hypertension, atrial fibrillatio n, dyslipidemia, diabetes mellitus type 2, GERD, obstructive sleep apnea, previous tobacco abuse, Parkinson's disease who normally follows with Dr. Burnett. She presented with generalized weakness and feeling at times like her legs will give out and buckle under her. She denies any chest pain or pressure however at times does have some mild shortness breath. She had gone to [facility] however continue to have issues and therefore recommended come to emergency department. She has been treated for UTI and urinalysis still shows increased white blood cell count and leukocyte esterase. Denies any fevers or chills. Cardiology was consult to secondary to rate it cardiac with read-out of junctional bradycardia however on personal review appears to be small P waves with sinus rhythm and sinus bradycardia. She is not on any rate controlling medications. Blood work shows white blood cell count 3.7, hemoglobin 8.4, platelets 146, sodium 122, BUN 32, creatinine 1.4, proBNP 4790, TSH 4.2. She was given IV fluids with mild increase in sodium up to 129 with a creatinine of 1.2. REVIEW OF SYSTEMS At the time of my exam: CONSTITUTIONAL: Denies fever or chills. CARDIOVASCULAR: Denies chest pain, +chronic shortness of breath, no orthopnea, PND or palpitations. RESPIRATORY: Denies cough. GASTROINTESTINAL: Denies abdominal pain, diarrhea, constipation, nausea or vomiting. MUSCULOSKELETAL: Denies myalgias. NEUROLOGIC: Denies numbness, tingling or weakness. ENDOCRINE: Denies fatigue, weight change, polydipsia or polyurina. GENITOURINARY: Denies burning, hematuria or urgency with micturation. HEMATOLOGIC: Denies history of anemia or bleeding. PHYSICAL EXAMINATION Vital signs reviewed. CONSTITUTIONAL: No apparent distress, chronically ill appearing HEENT: Head is normocephalic. Pupils are equal, round. Sclerae anicteric. Mucous membranes of the mouth are moist. No JVD. No carotid bruit. CHEST EXAMINATION: Lungs are clear to auscultation. No chest wall tenderness is noted on palpation or with deep breathing. HEART EXAMINATION: Regular rate and rhythm. S1, S2 heard. No murmurs, gallops or rub. ABDOMEN: Soft, nontender. Positive bowel sounds. EXTREMITIES: 2+ peripheral pulses, 1+ lower extremity edema and no calf tenderness. NEUROLOGIC EXAMINATION: Patient is awake, alert. ASSESSMENT 1. Generalized weakness and lower extremity weakness, denies any syncope or lightheadedness. Likely related to urinary tract infection, deconditioning 2. Sinus bradycardia not clearly symptomatic 3. CAD status post CABG no significant angina-type symptoms 4. PAD status post stenting January 2020 5. Hypertension 6. Persistent atrial fibrillation 7. Diabetes mellitus type 2 8. Hyperlipidemia 9. Urinary tract infection 10. Pancytopenia 11. Parkinson's 12. Former tobacco abuse PLAN Patient with recent similar presentation. Majority of her symptoms appear related to deconditioning, urinary tract infection, hyponatremia. EKG read out as junctional rhythm however appears to have P waves prior and sinus bradycardia. Hold negative chronotropic and place patient on telemetry to further monitor. No current clearcut symptomatic bradycardia and therefore no current need for any permit pacemaker. Continue supportive care. Further recommendations follow. Past Medical History Past Medical History: Atrial Fibrillation, Atrial Flutter, Coronary Artery Disease (CAD), Heart Failure, COPD, Diabetes Mellitus, GERD/Reflux, Hyperlipidemia, Hypertension, Myocardial Infarction ([place]), Musculoskeletal Disorder, Renal Disease, Respiratory Disorder, Sleep Apnea/CPAP/BIPAP, Vascular Disorder Additional Past Medical History / Comment(s): NIDDM type II, neuropathy bilateral legs/feet, CKD stage III, nephrolithiasis, anemia, diastolic CHF, cardiac valve disease, pulmonary htn, home oxygen prn, afib/flutter with RVR, pt states she fell one year ago and suffered 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 Last Myocardial Infarction Date:: 1999 History of Any Multi-Drug Resistant Organisms: None Reported Past Surgical History: Appendectomy, Coronary Bypass/CABG, Heart Catheterization, Hysterectomy, Tonsillectomy Additional Past Surgical History / Comment(s): 1999 CABG 4 vessel, BETHEL/cardioversion, abdominal aortagrams/bilateral runoffs, R atherectomy/PTBA/stent to R SFA, R neck benign lymph node removed, cysto /lithotripsy/aborted d/t unable to visualize stone, EGD, colonoscopy Past Anesthesia/Blood Transfusion Reactions: Motion Sickness Additional Past Anesthesia/Blood Transfusion Reaction / Comment(s): Pt has motion sickness/clausterphobia. Past Psychological History: No Psychological Hx Reported Smoking Status: Former smoker - Past Family History Brother(s) Family Medical History: Cancer Son(s) Family Medical History: Cancer, Myocardial Infarction ([place]) Sister(s) Family Medical History: Cancer Mother Family Medical History: COPD, Myocardial Infarction ([place]) Additional Family Medical History / Comment(s): mother of [place]-pt cannot recall at what age. Medications and Allergies Home Medications Medication Instructions Recorded Confirmed Type Ezetimibe [Zetia] 10 mg PO DAILY@1700 11/20/13 11/06/21 History Lovastatin [Mevacor] 10 mg PO DAILY@169911/20/13 11/06/21 History Apixaban [Eliquis] 2.5 mg PO BID@0800,1700 02/17/20 11/06/21 History Cyanocobalamin [Vitamin B-12] 500 mcg PO HS 02/17/20 11/06/21 History Epoetin Obed [Procrit] 10,000 unit SQ TH@0800 02/05/21 11/06/21 History Ferrous Sulfate [Iron (65 MG 325 mg PO DAILY@169902/05/21 11/06/21 History Elemental)] Metoprolol Tartrate [Lopressor] 12.5 mg PO BID@0800,1700 02/05/21 11/06/21 History Aspirin EC [Ecotrin Low Dose] 81 mg PO DAILY@169907/19/21 11/06/21 History Colchicine [Mitigare] 0.6 mg PO BID@0800,1700 07/19/21 11/06/21 History sitaGLIPtin [Januvia] 50 mg PO DAILY@0900 07/19/21 11/06/21 History Folic Acid 1 mg PO DAILY@169910/22/21 11/06/21 History Calcium Carbonate/Vitamin D3 1 cap PO TID@0800,1400,209911/06/21 11/06/21 History [Calcium 600 mg-D3 10 Mcg (400 Iu)] Carbidopa/Levodopa [Parcopa 25-100 1 tab PO TID@0800,1400,2100 11/06/21 11/06/21 History mg Odt] Ensure Enlive 237 ml PO BID@0800,1700 11/06/21 11/06/21 History Furosemide 10mg/Ml 40 mg IV ONCE 11/06/21 11/06/21 History Gabapentin [Neurontin] 100 mg PO BID@0800,1400 11/06/21 11/06/21 History Gabapentin [Neurontin] 200 mg PO HS@2100 11/06/21 11/06/21 History Magnesium Hydroxide [Milk of 7,200 mg PO Q48H PRN 11/06/21 11/06/21 History Magnesia Concentrate] Meclizine [Antivert] 12.5 mg PO Q8H PRN 11/06/21 11/06/21 History Na Phos,M-B/Na Phos,Di-Ba [Fleet 133 ml RECTAL DAILY PRN 11/06/21 11/06/21 History Adult] Sennosides/Docusate Sodium [Senna 1 tab PO BID@0800,1700 11/06/21 11/06/21 History Plus 8.6-50 mg Tablet] Sodium Polystyrene Sulfonate 15 gm PO ONCE 11/06/21 11/06/21 History [Kayexalate] bisacodyL [Dulcolax] 10 mg RECTAL DAILY PRN 11/06/21 11/06/21 History Allergies Allergy/AdvReac Type Severity Reaction Status Date / Time tuberculin, purified protein Allergy Per Saige Verified 11/06/21 13:02 deriva albuterol [From DuoNeb] AdvReac Nausea Verified 11/06/21 13:02 cortisone AdvReac PAIN Verified 11/06/21 13:02 hydrocodone AdvReac Nausea Verified 11/06/21 13:02 ipratropium [From DuoNeb] AdvReac Nausea Verified 11/06/21 13:02 procaine HCl [From Novocain] AdvReac pain Verified 11/06/21 13:02 allergy medicines AdvReac "dries me Uncoded 11/06/21 13:02 out, bloody noses,generalized pain" Physical Exam Vitals: Vital Signs Temp Pulse Resp BP Pulse Ox 11/08/21 08:00 97.8 F 64 17 171/65 99 11/08/21 07:55 95 11/08/21 01:15 97.4 F L 53 L 15 130/57 93 L 11/07/21 19:42 98 F 53 L 16 147/55 100 11/07/21 14:00 97.5 F L 55 L 18 131/67 99 Intake and Output 11/07/21 11/08/21 11/08/21 22:59 06:59 14:59 Output Total 513 330 6853 Balance -400 -950 -1000 Output: Urine 296 889 8585 Other: Voiding Method Indwelling Catheter Indwelling Catheter Results 11/08/21 05:47 11/08/21 05:47 CBC 11/08/21 Range/Units 05:47 WBC 2.9 L (3.8-10.6) k/uL RBC 2.26 L (3.80-5.40) m/uL Hgb 7.9 L (11.4-16.0) gm/dL Hct 23.7 L (34.0-46.0) % Plt Count 144 L (150-450) k/uL Comprehensive Metabolic Panel 11/07/21 11/08/21 Range/Units 05:58 05:47 Sodium 126 L 129 L (135-145) mmol/L Potassium 5.2 5.1 (3.5-5.5) mmol/L Chloride 93 L 101 (96-109) mmol/L Carbon Dioxide 23.9 23 (20.0-27.5) mmol/L BUN 26.9 21 H (9.0-27.0) mg/dL Creatinine 1.6 H 1.26 H (0.6-1.5) mg/dL Glucose 78 72 L (70-110) mg/dL Calcium 9.2 8.4 (8.7-10.3) mg/dL Current Medications Generic Name Dose Route Start Last Admin Trade Name Freq PRN Reason Stop Dose Admin Acetaminophen 650 mg 11/07/21 15:14 11/07/21 22:31 Acetaminophen Tab 325 Mg Tab PO 650 mg Q6HR PRN Administration Fever and/ or mild Pain Apixaban 2.5 mg 11/06/21 17:00 11/08/21 09:43 Apixaban 2.5 Mg Tablet PO 2.5 mg BID@0800,1700 TODD Administration Protocol Aspirin 81 mg 11/06/21 17:00 11/07/21 16:57 Aspirin 81 Mg PO 81 mg DAILY@1700 TODD Administration Atorvastatin Calcium 10 mg 11/06/21 17:00 11/07/21 16:57 Atorvastatin 10 Mg Tab PO 10 mg DAILY@1700 TODD Administration Bisacodyl 10 mg 11/06/21 14:29 Bisacodyl 10 Mg Supp RECTAL DAILY PRN Constipation Calcium Carbonate 1 each 11/06/21 21:00 11/08/21 09:43 Calcium Carb-Vit D 500 Mg-5 Mcg Tab PO 1 each TID@0800,1400,2100 TODD Administration Carbidopa/Levodopa 1 each 11/07/21 11:45 11/08/21 09:43 Carbidopa-Levodopa 25-100 Mg 1 Each Tab PO 1 each TID TODD Administration Colchicine 0.6 mg 11/06/21 17:00 11/08/21 09:43 Colchicine 0.6 Mg Each PO 0.6 mg BID@0800,1700 TODD Administration Cyanocobalamin 500 mcg 11/06/21 21:00 11/07/21 22:06 Cyanocobalamin 500 Mcg Tab PO 500 mcg HS TODD Administration Darbepoetin Obed 25 mcg 11/12/21 08:00 Darbepoetin Obed 25 Mcg/0.42 Ml Syringe SQ TH@0800 [facility] Dextrose/Water 25 ml 11/06/21 14:35 Dextrose 50% Syringe 50 Ml IVP PER PROTOCOL PRN Hypoglycemia Protocol Dextrose/Water 50 ml 11/06/21 14:35 Dextrose 50% Syringe 50 Ml IVP PER PROTOCOL PRN Hypoglycemia Protocol Ezetimibe 10 mg 11/06/21 17:00 11/07/21 16:57 Ezetimibe 10 Mg Tab PO 10 mg DAILY@1700 TODD Administration Ferrous Sulfate 325 mg 11/06/21 17:00 11/07/21 16:57 Ferrous Sulfate 325 Mg Tab PO 325 mg DAILY@1700 TODD Administration Folic Acid 1 mg 11/06/21 17:00 11/07/21 16:57 Folic Acid 1 Mg Tab PO 1 mg DAILY@1700 TODD Administration Sodium Chloride 1,000 mls @ 75 mls/hr 11/06/21 15:30 11/08/21 09:42 Saline 0.9% IV 75 mls/hr .[id number] TODD Administration Piperacillin Sod/Tazobactam 100 mls @ 25 mls/hr 11/06/21 16:00 11/08/21 09:43 Sod 3.375 gm/ Sodium Chloride IVPB 25 mls/hr Q8HR [facility] Administration Protocol Insulin Aspart 0 unit 11/06/21 17:30 11/08/21 11:45 Insulin Aspart (Novolog) 100 Unit/Ml Vial SQ Not Given ACHS [facility] Protocol Linagliptin 5 mg 11/07/21 09:00 11/08/21 09:39 Linagliptin 5 Mg Tablet PO Not Given DAILY@0900 [facility] Magnesium Hydroxide 7,200 mg 11/06/21 14:29 Magnesium Hydroxide 2,400 Mg/10 Ml Cup PO Q48H PRN Constipation Meclizine HCl 12.5 mg 11/06/21 14:29 Meclizine 12.5 Mg Tab PO Q8H PRN Vertigo/Dizziness Naloxone HCl 0.2 mg 11/06/21 13:52 Naloxone 0.4 Mg/Ml 1 Ml Vial IV Q2M PRN Opioid Reversal Senna/Docusate Sodium 1 each 11/06/21 17:00 11/08/21 09:43 Sennosides-Docusate Sodium 1 Each Tab PO 1 each BID@0800,1700 [facility] Administration Sodium Biphosphate/Sodium Phosphate 133 ml 11/06/21 14:29 Na Phos,M-B/Na Phos,Di-Ba 133 Ml Enema RECTAL DAILY PRN Constipation Intake and Output 11/07/21 11/08/21 11/08/21 22:59 06:59 14:59 Output Total 673 425 2276 Balance -400 -950 -1000 Output: Urine 999 256 4909 Other: Voiding Method Indwelling Catheter Indwelling Catheter 11/08/21 05:47 11/08/21 05:47
--- NOTE | 2021-11-08 13:05 | P.PN ---
Subjective Progress Note Date: 11/08/21 Follow-up for acute kidney injury and hyponatremia. Objective - Vital Signs Vital signs: Vital Signs Temp 97.8 F 11/08/21 08:00 Pulse 64 11/08/21 08:00 Resp 17 11/08/21 08:00 BP 171/65 11/08/21 08:00 Pulse Ox 99 11/08/21 08:00 FiO2 Intake & Output 11/07/21 11/08/21 11/08/21 18:59 06:59 18:59 Intake Total 100 Output Total 1000 1350 1000 Balance -900 -1350 -1000 Weight 74.843 kg Intake: Intake, IV Titration 100 Amount Piperacillin-Tazobactam 3 100 .375 gm In Sodium Chloride 0.9% 100 ml @ 25 mls/hr IVPB Q8HR [facility] Rx# :[id number] Output: Urine 1000 1350 1000 Other: Voiding Method Indwelling Catheter Indwelling Catheter Indwelling Catheter - Exam No acute distress S1-S2 heard Lungs clear No edema - Labs CBC & Chem 7: 11/08/21 05:47 11/08/21 05:47 Labs: Abnormal Lab Results - Last 24 Hours (Table) 11/07/21 11/07/21 11/07/21 Range/Units 15:53 15:53 17:43 WBC (3.8-10.6) k/uL RBC (3.80-5.40) m/uL Hgb (11.4-16.0) gm/dL Hct (34.0-46.0) % MCV (80.0-100.0) fL RDW (11.5-15.5) % Plt Count (150-450) k/uL Lymphocytes # (1.0-4.8) k/uL Macrocytosis Sodium (137-145) mmol/L BUN (7-17) mg/dL Creatinine (0.52-1.04) mg/dL Glucose (74-99) mg/dL Osmolality 276 L (280-301) mosm/kg Urine Blood Trace H (Negative) Ur Leukocyte Esterase Moderate H (Negative) Urine WBC 10 H (0-5) /hpf Ur Random Potassium 15.0 L (25.0-125.0) mmol/L 11/08/21 11/08/21 Range/Units 05:47 05:47 WBC 2.9 L (3.8-10.6) k/uL RBC 2.26 L (3.80-5.40) m/uL Hgb 7.9 L (11.4-16.0) gm/dL Hct 23.7 L (34.0-46.0) % MCV 104.7 H D (80.0-100.0) fL RDW 21.0 H (11.5-15.5) % Plt Count 144 L (150-450) k/uL Lymphocytes # 0.7 L (1.0-4.8) k/uL Macrocytosis Marked A Sodium 129 L (137-145) mmol/L BUN 21 H (7-17) mg/dL Creatinine 1.26 H (0.52-1.04) mg/dL Glucose 72 L (74-99) mg/dL Osmolality (280-301) mosm/kg Urine Blood (Negative) Ur Leukocyte Esterase (Negative) Urine WBC (0-5) /hpf Ur Random Potassium (25.0-125.0) mmol/L Microbiology - Last 24 Hours (Table) 11/06/21 12:16 Urine Culture - Preliminary Urine,Voided Group D Enterococcus 11/06/21 16:03 Blood Culture - Preliminary Blood No Growth after 24 hours 11/06/21 15:54 Blood Culture - Preliminary Blood No Growth after 24 hours Assessment and Plan Assessment: #1 acute on chronic hyponatremia suspect hypovolemia. #2 CK D stage IV with a baseline creatinine of 1.5-1.6 MG per DL. #3 systolic CHF. Plan: #1 continue with fluids today. And he stopped by tomorrow #2 await urine studies. #3 continue to hold Lasix today. #4 daily renal labs.
[2021-11-08 16:41] LABS: Glucose,Whole Blood 103 mg/dL (70-110)
[2021-11-08] MEDS: EZETIMIBE 10 MG TAB PO SCH (17:18)
[2021-11-08] MEDS: ASPIRIN 81 MG PO SCH (17:18)
[2021-11-08] MEDS: ATORVASTATIN 10 MG TAB PO SCH (17:19)
[2021-11-08] MEDS: FERROUS SULFATE 325 MG TAB PO SCH (17:19)
[2021-11-08] MEDS: FOLIC ACID 1 MG TAB PO SCH (17:19)
[2021-11-08 20:26] LABS: Glucose,Whole Blood 157 mg/dL (70-110)
[2021-11-08] MEDS: CYANOCOBALAMIN 500 MCG TAB PO SCH (21:37)
[2021-11-08] MEDS: ACETAMINOPHEN TAB 325 MG TAB PO PRN (21:37)
[2021-11-09] MEDS: SODIUM CHLORIDE 0.9% 1,000 ML IV SCH ×2 (05:47→14:17)
[2021-11-09 07:15] LABS: Glucose,Whole Blood 87 mg/dL (70-110)
[2021-11-09] MEDS: INSULIN ASPART (NovoLOG) 100 UNIT/ML VIAL SQ SCH ×4 (08:12→21:05)
[2021-11-09] MEDS: PIPERACILLIN-TAZOBACTAM 3.375 GM in SODIUM CHLORIDE 0.9% 100 ML IVPB SCH (08:20)
[2021-11-09] MEDS: ACETAMINOPHEN TAB 325 MG TAB PO PRN ×2 (08:20→21:45)
[2021-11-09] MEDS: CARBIDOPA-LEVODOPA 25-100 MG 1 EACH TAB PO SCH ×3 (08:22→21:45)
[2021-11-09] MEDS: LINAGLIPTIN 5 MG TABLET PO SCH (08:22)
[2021-11-09] MEDS: SENNOSIDES-DOCUSATE SODIUM 1 EACH TAB PO SCH ×2 (08:22→17:03)
[2021-11-09] MEDS: COLCHICINE 0.6 MG EACH PO SCH (08:22)
[2021-11-09] MEDS: APIXABAN 2.5 MG TABLET PO SCH ×2 (08:22→17:03)
[2021-11-09] MEDS: CALCIUM CARB-VIT D 500 MG-5 MCG TAB PO SCH ×3 (08:23→21:45)
[2021-11-09 09:38] LABS: Anisocytosis Moderate; HCT 28.5 % (34.0-46.0); HGB 9.1 gm/dL (11.4-16.0); Hypochromasia Marked; MCH 33.9 pg (25.0-35.0); MCHC 31.9 g/dL (31.0-37.0); MCV 106.3 fL (80.0-100.0); Macrocytosis Marked; Mean Platelet Volume 8.5; Platelet Count 176 k/uL (150-450); Poikilocytosis Slight; RBC 2.68 m/uL (3.80-5.40); RDW 20.3 % (11.5-15.5); WBC 3.5 k/uL (3.8-10.6)
[2021-11-09 09:49] LABS: African American GFR (CKD) 47 (>60 ml/min/1.73 sqM); Anion Gap 9 mmol/L; Blood Urea Nitrogen 17 mg/dL (7-17); Carbon Dioxide 22 mmol/L (22-30); Chloride 99 mmol/L (98-107); Glucose 130 mg/dL (74-99); Non-African American GFR(CKD) 41 (>60 ml/min/1.73 sqM); Potassium 5.1 mmol/L (3.5-5.1); Sodium 130 mmol/L (137-145)
--- NOTE | 2021-11-09 10:08 | P.PN ---
Subjective Progress Note Date: 11/09/21 HISTORY OF PRESENT ILLNESS: Patient is pleasant 81-year-old female with history of CAD status post CABG, PVD status post previous stenting in January 2020, hypertension, atrial fibr illation, dyslipidemia, diabetes mellitus type 2, GERD, obstructive sleep apnea, previous tobacco abuse, Parkinson's disease who normally follows with Dr. Burnett. She presented with generalized weakness and feeling at times like her legs will give out and buckle under her. She denies any chest pain or pressure however at times does have some mild shortness breath. She had gone to [facility] however continue to have issues and therefore recommended come to emergency department. She has been treated for UTI and urinalysis still shows increased white blood cell count and leukocyte esterase. Denies any fevers or chills. Cardiology was consult to secondary to rate it cardiac with read-out of junctional bradycardia however on personal review appears to be small P waves with sinus rhythm and sin us bradycardia. She is not on any rate controlling medications. Blood work shows white blood cell count 3.7, hemoglobin 8.4, platelets 146, sodium 122, BUN 32, creatinine 1.4, proBNP 4790, TSH 4.2. She was given IV fluids with mild increase in sodium up to 129 with a creatinine of 1.2. 11/09/2021 Patient examined his rectum itself. Patient denies chest pain or pressure. She denies shortness of breath. Telemetry reveals sinus mechanism. Her beta raleigh remains on hold. Blood pressures are stable with systolic blood pressures ranging between [id number]. PHYSICAL EXAM: VITAL SIGNS: Reviewed. GENERAL: Well-developed in no acute distress. NECK: Supple. No JVD or thyromegaly LUNGS: Respirations even and unlabored. Lungs essentially clear to auscultation bilaterally. HEART: Regular rate and rhythm. S1 and S2 heard. EXTREMITIES: Normal range of motion. No clubbing or cyanosis. Peripheral pulses intact. No lower extremity edema ASSESSMENT: 1. Generalized weakness and lower extremity weakness, denies any syncope or lightheadedness. Likely related to urinary tract infection, deconditioning 2. Sinus bradycardia not clearly symptomatic 3. CAD status post CABG no significant angina-type symptoms 4. PAD status post stenting January 2020 5. Hypertension 6. Persistent atrial fibrillation 7. Diabetes mellitus type 2 8. Hyperlipidemia 9. Urinary tract infection 10. Pancytopenia 11. Parkinson's 12. Former tobacco abuse PLAN: Continue current cardiac medications Continue to hold beta raleigh Patient is currently stable from a cardiac standpoint with no further inpatient recommendations We will sign off. Please reconsult if needed. Nurse practitioner note has been reviewed by physician. Signing provider agrees with the documented findings, assessment, and plan of care. Objective - Vital Signs Vital signs: Vital Signs Temp 97.4 F L 11/09/21 07:33 Pulse 50 L 11/09/21 07:33 Resp 23 11/09/21 07:33 BP 151/62 11/09/21 07:33 Pulse Ox 100 11/09/21 07:33 FiO2 Intake & Output 11/08/21 11/09/21 11/09/21 18:59 06:59 18:59 Intake Total 100 Output Total 1800 1650 Balance -1700 -1650 Intake: Intake, IV Titration 100 Amount Piperacillin-Tazobactam 3 100 .375 gm In Sodium Chloride 0.9% 100 ml @ 25 mls/hr IVPB Q8HR [facility] Rx# :[id number] Output: Urine 1800 1650 Other: Voiding Method Indwelling Catheter Indwelling Catheter # Voids 2 - Labs CBC & Chem 7: 11/09/21 08:59 11/09/21 08:59 Labs: Abnormal Lab Results - Last 24 Hours (Table) 11/08/21 11/09/21 11/09/21 Range/Units 20:25 08:59 08:59 WBC 3.5 L (3.8-10.6) k/uL RBC 2.68 L (3.80-5.40) m/uL Hgb 9.1 L (11.4-16.0) gm/dL Hct 28.5 L (34.0-46.0) % MCV 106.3 H (80.0-100.0) fL RDW 20.3 H (11.5-15.5) % Macrocytosis Marked A Sodium 130 L (137-145) mmol/L Creatinine 1.24 H (0.52-1.04) mg/dL Glucose 130 H (74-99) mg/dL POC Glucose (mg/dL) 157 H (70-110) mg/dL Microbiology - Last 24 Hours (Table) 11/06/21 12:16 Urine Culture - Final Urine,Voided Enterococcus faecalis VRE 11/06/21 16:03 Blood Culture - Preliminary Blood No Growth after 48 hours 11/06/21 15:54 Blood Culture - Preliminary Blood No Growth after 48 hours
--- NOTE | 2021-11-09 10:11 | P.PN ---
Subjective Patient is seen in follow-up for chronic kidney disease and hyponatremia. Renal function stable. Sodium level also improving. Receiving IV fluids. Has a Cuevas catheter. Nonoliguric. No vomiting or diarrhea. Denies chest pain or shortness of breath. Vital signs are stable. General: Awake. No acute distress. HEENT: Head exam is unremarkable. LUNGS: Breath sounds decreased. HEART: Rate and Rhythm are regular. ABDOMEN: Soft, no distention. EXTREMITITES: No edema. Objective - Vital Signs Vital signs: Vital Signs Temp 97.4 F L 11/09/21 07:33 Pulse 50 L 11/09/21 07:33 Resp 23 11/09/21 07:33 BP 151/62 11/09/21 07:33 Pulse Ox 100 11/09/21 07:33 FiO2 Intake & Output 11/08/21 11/09/21 11/09/21 18:59 06:59 18:59 Intake Total 100 Output Total 1800 1650 Balance -1700 -1650 Intake: Intake, IV Titration 100 Amount Piperacillin-Tazobactam 3 100 .375 gm In Sodium Chloride 0.9% 100 ml @ 25 mls/hr IVPB Q8HR [facility] Rx# :[id number] Output: Urine 1800 1650 Other: Voiding Method Indwelling Catheter Indwelling Catheter # Voids 2 - Labs CBC & Chem 7: 11/09/21 08:59 11/09/21 08:59 Labs: Abnormal Lab Results - Last 24 Hours (Table) 11/08/21 11/09/21 11/09/21 Range/Units 20:25 08:59 08:59 WBC 3.5 L (3.8-10.6) k/uL RBC 2.68 L (3.80-5.40) m/uL Hgb 9.1 L (11.4-16.0) gm/dL Hct 28.5 L (34.0-46.0) % MCV 106.3 H (80.0-100.0) fL RDW 20.3 H (11.5-15.5) % Macrocytosis Marked A Sodium 130 L (137-145) mmol/L Creatinine 1.24 H (0.52-1.04) mg/dL Glucose 130 H (74-99) mg/dL POC Glucose (mg/dL) 157 H (70-110) mg/dL Microbiology - Last 24 Hours (Table) 11/06/21 12:16 Urine Culture - Final Urine,Voided Enterococcus faecalis VRE 11/06/21 16:03 Blood Culture - Preliminary Blood No Growth after 48 hours 11/06/21 15:54 Blood Culture - Preliminary Blood No Growth after 48 hours Assessment and Plan Plan: Assessment: 1. Hypovolemic hyponatremia improving with IV fluids. Sodium level 130 today. Urine sodium 51 and urine osmolality 180. TSH normal. 2. Chronic kidney disease stage IIIB with baseline creatinine near 1.2-1.4. Etiology is nephrosclerosis. No proteinuria on UA. 3. VRE UTI on antibiotics. 4. Diabetes mellitus. 5. Chronic diastolic CHF with moderate pulmonary hypertension. 6. Anemia of chronic kidney disease. Rule out iron deficiency. Plan: Decrease rate of normal saline to 50 mL an hour. 1200 mL fluid restriction. Encouraged oral intake. Avoid nephrotoxins. Stop Fleet enemas. Continue to monitor renal function and urine output. Check iron studies.
[2021-11-09 11:04] LABS: Glucose,Whole Blood 136 mg/dL (70-110)
[2021-11-09 15:51] LABS: Glucose,Whole Blood 100 mg/dL (70-110)
--- NOTE | 2021-11-09 16:07 | P.PN ---
Subjective Progress Note Date: 11/09/21 Principal diagnosis: Weakness Patient was seen and examined. No acute events overnight. Patient with multiple complaints about food served at the hospital. She reports generalized weakness and neuropathic pain in her lower extremities. Objective - Vital Signs Vital signs: Vital Signs Temp 97.9 F 11/09/21 13:53 Pulse 57 L 11/09/21 13:53 Resp 20 11/09/21 13:53 BP 169/65 11/09/21 13:53 Pulse Ox 99 11/09/21 13:53 FiO2 Intake & Output 11/08/21 11/09/21 11/09/21 18:59 06:59 18:59 Intake Total 100 Output Total 1800 1650 1200 Balance -1700 -1650 -1200 Intake: Intake, IV Titration 100 Amount Piperacillin-Tazobactam 3 100 .375 gm In Sodium Chloride 0.9% 100 ml @ 25 mls/hr IVPB Q8HR [facility] Rx# :[id number] Output: Urine 1800 1650 1200 Other: Voiding Method Indwelling Catheter Indwelling Catheter # Voids 2 - Exam General: [non toxic], [no distress], [appears at stated age] Derm: [warm], [dry] Head: [atraumatic], [normocephalic], [symmetric] Eyes: [EOMI], [no lid lag], [anicteric sclera] Mouth: [no lip lesion], [mucus membranes moist] Cardiovascular: [Bradycardic], [no murmur] Lungs: [CTA bilateral], [no rhonchi, no rales] , [no accessory muscle use] Abdominal: [soft], [ nontender to palpation] Ext: [no gross muscle atrophy], [no edema], [no contractures] Neuro: [no focal neuro deficits] Psych: [Alert], [oriented], [appropriate affect] - Labs CBC & Chem 7: 11/09/21 08:59 11/09/21 08:59 Labs: Abnormal Lab Results - Last 24 Hours (Table) 11/08/21 11/09/21 11/09/21 Range/Units 20:25 08:59 08:59 WBC 3.5 L (3.8-10.6) k/uL RBC 2.68 L (3.80-5.40) m/uL Hgb 9.1 L (11.4-16.0) gm/dL Hct 28.5 L (34.0-46.0) % MCV 106.3 H (80.0-100.0) fL RDW 20.3 H (11.5-15.5) % Macrocytosis Marked A Sodium 130 L (137-145) mmol/L Creatinine 1.24 H (0.52-1.04) mg/dL Glucose 130 H (74-99) mg/dL POC Glucose (mg/dL) 157 H (70-110) mg/dL 11/09/21 Range/Units 11:02 WBC (3.8-10.6) k/uL RBC (3.80-5.40) m/uL Hgb (11.4-16.0) gm/dL Hct (34.0-46.0) % MCV (80.0-100.0) fL RDW (11.5-15.5) % Macrocytosis Sodium (137-145) mmol/L Creatinine (0.52-1.04) mg/dL Glucose (74-99) mg/dL POC Glucose (mg/dL) 136 H (70-110) mg/dL Microbiology - Last 24 Hours (Table) 11/06/21 12:16 Urine Culture - Final Urine,Voided Enterococcus faecalis VRE 11/06/21 16:03 Blood Culture - Preliminary Blood No Growth after 48 hours 11/06/21 15:54 Blood Culture - Preliminary Blood No Growth after 48 hours Assessment and Plan Assessment: Hypovolemic hyponatremia -We'll give patient gentle fluids. We'll need to monitor patient's volume status closely as she does have a history of chronic diastolic heart failure. -Trend BMP daily -> sodium is improving -Hold her Lasix for now -Nephrology on board Mild hyperkalemia -Suspected due to Bactrim -Hold Bactrim -Resolved Sinus bradycardia -Could be contributing to patient's weakness -Hold Beta raleigh -Cardiology recommends holding beta raleigh with no further intervention Generalized weakness secondary to multiple comorbidities and exacerbated by bradycardia and dehydration -Patient will return back to shelter facility once medically stable Urinary tract infection secondary to chronic indwelling catheter -Patient had Cuevas catheter placed at the shelter facility -Does not meet sepsis criteria -Urine culture growing group D enterococcus -Antibiotics switched to Daptomycin IV -Blood cultures negative to date CK D stage IV -Patient's creatinine at baseline Anemia of chronic kidney disease -Resume Aranesp injections -Patient's hemoglobin at her baseline Atrial fibrillation -Resume Eliquis -Hold metoprolol due to bradycardia Parkinson's disease -Resume home meds Peripheral neuropathy -Hold gabapentin as it could be contributed to her weakness and lethargy -Tylenol for pain management Hypertension: Control -Resume home meds Diabetes mellitus -Resume Tradjenta and sliding scale insulin Hyperlipidemia -Resume statin CODE STATUS:full code DVT prophylaxis: Eliquis Anticipated length of stay > than [address]: SNF in the next 24-48 hours if sodium normalizes and cleared by nephrology Anticipate DC tomorrow after 2 doses of Daptomycin.
[2021-11-09] MEDS: ASPIRIN 81 MG PO SCH (17:03)
[2021-11-09] MEDS: EZETIMIBE 10 MG TAB PO SCH (17:03)
[2021-11-09] MEDS: FOLIC ACID 1 MG TAB PO SCH (17:03)
[2021-11-09] MEDS: ATORVASTATIN 10 MG TAB PO SCH (17:03)
[2021-11-09] MEDS: FERROUS SULFATE 325 MG TAB PO SCH (17:04)
[2021-11-09 17:14] LABS: % Iron Saturation 29.47 (12.00-45.00)
[2021-11-09 20:19] LABS: Glucose,Whole Blood 132 mg/dL (70-110)
[2021-11-09] MEDS: CYANOCOBALAMIN 500 MCG TAB PO SCH (21:45)
[2021-11-10] MEDS: ACETAMINOPHEN TAB 325 MG TAB PO PRN ×3 (01:46→21:42)
[2021-11-10 05:44] LABS: Glucose,Whole Blood 92 mg/dL (70-110)
[2021-11-10 06:34] LABS: African American GFR (CKD) 50 (>60 ml/min/1.73 sqM); Anion Gap 3 mmol/L; Blood Urea Nitrogen 14 mg/dL (7-17); Calcium 9.3 mg/dL (8.4-10.2); Carbon Dioxide 26 mmol/L (22-30); Chloride 101 mmol/L (98-107); Glucose 84 mg/dL (74-99); Magnesium 1.4 mg/dL (1.6-2.3); Non-African American GFR(CKD) 44 (>60 ml/min/1.73 sqM); Potassium 5.1 mmol/L (3.5-5.1); Sodium 130 mmol/L (137-145)
[2021-11-10 06:55] LABS: Glucose,Whole Blood 94 mg/dL (70-110)
[2021-11-10] MEDS: SODIUM CHLORIDE 0.9% 1,000 ML IV SCH (08:29)
[2021-11-10] MEDS: INSULIN ASPART (NovoLOG) 100 UNIT/ML VIAL SQ SCH ×4 (09:22→20:51)
[2021-11-10] MEDS: APIXABAN 2.5 MG TABLET PO SCH ×2 (09:30→16:58)
[2021-11-10] MEDS: CALCIUM CARB-VIT D 500 MG-5 MCG TAB PO SCH ×3 (09:30→20:12)
[2021-11-10] MEDS: SENNOSIDES-DOCUSATE SODIUM 1 EACH TAB PO SCH ×2 (09:30→17:06)
[2021-11-10] MEDS: CARBIDOPA-LEVODOPA 25-100 MG 1 EACH TAB PO SCH ×3 (09:30→20:12)
[2021-11-10] MEDS: LINAGLIPTIN 5 MG TABLET PO SCH (09:31)
--- NOTE | 2021-11-10 09:51 | P.PN ---
Subjective Patient is seen in follow-up for chronic kidney disease and hyponatremia. Renal function stable. Sodium level also stable. Receiving IV fluids. Has a Cuevas catheter. Nonoliguric. No vomiting or diarrhea. Denies chest pain or shortness of breath. Blood pressure on the higher side. Vital signs are stable. General: Awake. No acute distress. HEENT: Head exam is unremarkable. LUNGS: Breath sounds decreased. HEART: Rate and Rhythm are regular. ABDOMEN: Soft, no distention. EXTREMITITES: No edema. Objective - Vital Signs Vital signs: Vital Signs Temp 97.6 F 11/10/21 01:26 Pulse 55 L 11/10/21 01:26 Resp 18 11/10/21 01:26 BP 175/67 11/10/21 01:26 Pulse Ox 99 11/10/21 01:26 FiO2 Intake & Output 11/09/21 11/10/21 11/10/21 18:59 06:59 18:59 Intake Total 1060 Output Total 2500 250 Balance -1440 -250 Intake: Oral 1060 Output: Urine 2500 250 Other: Voiding Method Indwelling Catheter - Labs CBC & Chem 7: 11/09/21 08:59 11/10/21 05:56 Labs: Abnormal Lab Results - Last 24 Hours (Table) 11/09/21 11/09/21 11/09/21 Range/Units 08:59 08:59 08:59 WBC 3.5 L (3.8-10.6) k/uL RBC 2.68 L (3.80-5.40) m/uL Hgb 9.1 L (11.4-16.0) gm/dL Hct 28.5 L (34.0-46.0) % MCV 106.3 H (80.0-100.0) fL RDW 20.3 H (11.5-15.5) % Macrocytosis Marked A Sodium 130 L (137-145) mmol/L Creatinine 1.24 H (0.52-1.04) mg/dL Glucose 130 H (74-99) mg/dL POC Glucose (mg/dL) (70-110) mg/dL Magnesium (1.6-2.3) mg/dL Ferritin 424.0 H (10.0-291.0) ng/mL 11/09/21 11/09/21 11/10/21 Range/Units 11:02 20:16 05:56 WBC (3.8-10.6) k/uL RBC (3.80-5.40) m/uL Hgb (11.4-16.0) gm/dL Hct (34.0-46.0) % MCV (80.0-100.0) fL RDW (11.5-15.5) % Macrocytosis Sodium 130 L (137-145) mmol/L Creatinine 1.17 H (0.52-1.04) mg/dL Glucose (74-99) mg/dL POC Glucose (mg/dL) 136 H 132 H (70-110) mg/dL Magnesium 1.4 L (1.6-2.3) mg/dL Ferritin (10.0-291.0) ng/mL Microbiology - Last 24 Hours (Table) 11/06/21 16:03 Blood Culture - Preliminary Blood No Growth after 72 hours 11/06/21 15:54 Blood Culture - Preliminary Blood No Growth after 72 hours Assessment and Plan Plan: Assessment: 1. Hypovolemic hyponatremia improving with IV fluids. Sodium level stable at 130 today. Urine sodium 51 and urine osmolality 180. TSH normal. 2. Chronic kidney disease stage IIIB with baseline creatinine near 1.2-1.4. Etiology is nephrosclerosis. No proteinuria on UA. 3. VRE UTI on antibiotics. 4. Diabetes mellitus. 5. Chronic diastolic CHF with moderate pulmonary hypertension. 6. Anemia of chronic kidney disease. Iron replete. On Aranesp. 7. Hypomagnesemia from poor intake. 8. Hypertension with chronic kidney disease. Plan: Heplock IVFs. Maintain 1200 mL fluid restriction. Encouraged oral intake. Avoid nephrotoxins. Stopped Fleet enemas. Continue to monitor renal function and urine output. Repeat BMP and magnesium level 2-3 days postdischarge. Follow up outpatient in 1 week. Cuevas catheter to be removed today. Monitor for retention. Replace magnesium. Add low-dose hydralazine. Hold for systolic blood pressure less than 125.
[2021-11-10] MEDS: MAGNESIUM SULFATE-D5W PMX 1 GM in DEXTROSE/WATER 1 100ML.BAG IVPB SCH ×2 (11:01→12:34)
[2021-11-10] MEDS: hydrALAZINE HCL 25 MG TAB PO SCH ×3 (11:01→20:12)
--- NOTE | 2021-11-10 11:41 | P.DS ---
Providers Date of admission: 11/06/21 13:52 Expected date of discharge: 11/10/21 Attending physician: Sol Mcnamara DO Consults: 11/06/21 13:52 Consult Physician Urgent Consulting Provider: Sukhi Inman Consult Reason/Comments: hyponatremia, ckd Do you want consulting provider notified?: Yes Primary care physician: Aaliyah Evans MD Hospital Course: Patient is a 81-year-old female with a past medical history of atrial fibrillation on anticoagulation with Eliquis, diastolic heart failure, COPD, hypertension, hyperlipidemia, coronary artery disease, CK D stage IV and type 2 diabetes mellitus who was recently admitted for generalized weakness and was treated for UTI and discharged on Bactrim for 5 more days to assisted facility. Patient had labs done at the assisted facility and she is found to have hyponatremia and hyperkalemia so she was sent back to the ED. Patient states that she has a difficult time eating. She states that she can on ly tolerate pured diet. She stated that she has not been eating much. Patient also states that at the assisted facility she had issues with urinary retention and they had to place a Cuevas catheter after straight cathing her twice. In the ED patient found to have a sodium of 122. UA also indicated UTI. Upon further questioning patient complains of some suprapubic pain. Patient was referred for admission to the hospitalist service. Patient was started on Zosyn IV for concerns a UTI. Urine culture grew enterococcus faecalis resistant to VRE. Blood cultures were negative. She was switched to daptomycin and discharge on nitrofurantoin to complete 7 more days. Her Cuevas catheter was discontinued. Gabapentin was discontinued which was thought to be causing lethargy and weaknes s. Nephrology was consulted with regard to her hyponatremia, sodium 122 on admission. Nephrology recommended gentle hydration, and holding Lasix. Her sodium was 130 at the time of discharge. Nephrology recommended fluid restriction to 1500 mL daily on discharge. Patient was noted to have sinus bradycardia with heart rate in the 50s. Her metoprolol was discontinued. Cardiology was consulted and recommended holding metoprolol on discharge. Patient was seen and examined on November 10. No acute events overnight. Patient reported generally feeling well except for her weakness. She was advised to follow-up with her PCP within 1-2 days of discharge. She was advised to repeat BMP within 3 days of discharge to be followed by her PCP. General: [non toxic], [no distress], [appears at stated age] Derm: [warm], [dry] Head: [atraumatic], [normocephalic], [symmetric] Eyes: [EOMI], [no lid lag], [anicteric sclera] Mouth: [no lip lesion], [mucus membranes moist] Cardiovascular: [Bradycardic], [no murmur] Lungs: [CTA bilateral], [no rhonchi, no rales] , [no accessory muscle use] Abdominal: [soft], [ nontender to palpation] Ext: [no gross muscle atrophy], [no edema], [no contractures] Neuro: [no focal neuro deficits] Psych: [Alert], [oriented], [appropriate affect] Discharge diagnosis: Hypovolemic hyponatremia Sinus bradycardia Generalized weakness secondary to multiple comorbidities exacerbated by bradycardia and dehydration Urinary tract infection secondary to chronic indwelling catheter Chronic kidney disease stage IV Anemia of chronic disease Atrial fibrillation Parkinson's disease Peripheral neuropathy Hypertension Diabetes mellitus Dyslipidemia Resolved: Hyperkalemia This complex discharge took about 45 minutes to complete. Pertinent Studies: Brain CT CXR EKG Patient Condition at Discharge: Stable Plan - Discharge Summary New Discharge Prescriptions: New hydrALAZINE HCL [Apresoline] 25 mg PO TID tab Nitrofurantoin Monohyd/M-Cryst [Macrobid] 100 mg PO Q12HR #14 cap Acetaminophen Tab [Tylenol] 650 mg PO Q4HR PRN tab PRN Reason: Fever and/ or mild Pain Continue Ezetimibe [Zetia] 10 mg PO DAILY@1700 Lovastatin [Mevacor] 10 mg PO DAILY@1700 Cyanocobalamin [Vitamin B-12] 500 mcg PO HS Apixaban [Eliquis] 2.5 mg PO BID@0800,1700 sitaGLIPtin [Januvia] 50 mg PO DAILY@0900 Aspirin EC [Ecotrin Low Dose] 81 mg PO DAILY@1700 Folic Acid 1 mg PO DAILY@1700 Magnesium Hydroxide [Milk of Magnesia Concentrate] 7,200 mg PO Q48H PRN PRN Reason: Constipation Meclizine [Antivert] 12.5 mg PO Q8H PRN PRN Reason: Vertigo/Dizziness bisacodyL [Dulcolax] 10 mg RECTAL DAILY PRN PRN Reason: Constipation Calcium Carbonate/Vitamin D3 [Calcium 600 mg-D3 10 Mcg (400 Iu)] 1 cap PO TID@0800,1400,2100 Ferrous Sulfate [Iron (65 MG Elemental)] 325 mg PO DAILY@1700 Epoetin Obed [Procrit] 10,000 unit SQ TH@0800 Colchicine [Mitigare] 0.6 mg PO BID@0800,1700 Na Phos,M-B/Na Phos,Di-Ba [Fleet Adult] 133 ml RECTAL DAILY PRN PRN Reason: Constipation Carbidopa/Levodopa [Parcopa 25-100 mg Odt] 1 tab PO TID@0800,1400,2100 Sennosides/Docusate Sodium [Senna Plus 8.6-50 mg Tablet] 1 tab PO BID@0800,1700 Ensure Enlive 237 ml PO BID@0800,1700 Discontinued Metoprolol Tartrate [Lopressor] 12.5 mg PO BID@0800,1700 Sodium Polystyrene Sulfonate [Kayexalate] 15 gm PO ONCE Gabapentin [Neurontin] 100 mg PO BID@0800,1400 Gabapentin [Neurontin] 200 mg PO HS@2100 Furosemide 10mg/Ml 40 mg IV ONCE Discharge Medication List Ezetimibe [Zetia] 10 mg PO DAILY@169911/20/13 [History] Lovastatin [Mevacor] 10 mg PO DAILY@169911/20/13 [History] Apixaban [Eliquis] 2.5 mg PO BID@0800,1700 02/17/20 [History] Cyanocobalamin [Vitamin B-12] 500 mcg PO HS 02/17/20 [History] Epoetin Obed [Procrit] 10,000 unit SQ TH@0800 02/05/21 [History] Ferrous Sulfate [Iron (65 MG Elemental)] 325 mg PO DAILY@169902/05/21 [History] Aspirin EC [Ecotrin Low Dose] 81 mg PO DAILY@169907/19/21 [History] Colchicine [Mitigare] 0.6 mg PO BID@0800,1700 07/19/21 [History] sitaGLIPtin [Januvia] 50 mg PO DAILY@0900 07/19/21 [History] Folic Acid 1 mg PO DAILY@169910/22/21 [History] Calcium Carbonate/Vitamin D3 [Calcium 600 mg-D3 10 Mcg (400 Iu)] 1 cap PO TID@0800,1400,209911/06/21 [History] Carbidopa/Levodopa [Parcopa 25-100 mg Odt] 1 tab PO TID@0800,1400,209911/06/21 [History] Ensure Enlive 237 ml PO BID@0800,1700 11/06/21 [History] Magnesium Hydroxide [Milk of Magnesia Concentrate] 7,200 mg PO Q48H PRN 11/06/21 [History] Meclizine [Antivert] 12.5 mg PO Q8H PRN 11/06/21 [History] Na Phos,M-B/Na Phos,Di-Ba [Fleet Adult] 133 ml RECTAL DAILY PRN 11/06/21 [History] Sennosides/Docusate Sodium [Senna Plus 8.6-50 mg Tablet] 1 tab PO BID@0800,1700 11/06/21 [History] bisacodyL [Dulcolax] 10 mg RECTAL DAILY PRN 11/06/21 [History] Acetaminophen Tab [Tylenol] 650 mg PO Q4HR PRN tab 11/10/21 [Rx] Nitrofurantoin Monohyd/M-Cryst [Macrobid] 100 mg PO Q12HR #14 cap 11/10/21 [Rx] hydrALAZINE HCL [Apresoline] 25 mg PO TID tab 11/10/21 [Rx] Follow up Appointment(s)/Referral(s): Aaliyah Evans MD [Primary Care Provider] - 1-2 days Ambulatory/Diagnostic Orders: Basic Metabolic Panel [LAB.AMB] Time Frame: 3 Days, Location: None Selected Activity/Diet/Wound Care/Special Instructions: Diet: Fluid restriction, Cardiac FU PCP within 1-2 days of DC. Repeat BMP within 3 days, results to be followed by PCP. Take all medications as advised. Come back to the ED or call 911 for worsening of symptoms. Discharge Disposition: TRANSFER TO SNF/ECF
[2021-11-10 11:44] LABS: Glucose,Whole Blood 124 mg/dL (70-110)
[2021-11-10] MEDS: EZETIMIBE 10 MG TAB PO SCH (16:58)
[2021-11-10] MEDS: FOLIC ACID 1 MG TAB PO SCH (16:58)
[2021-11-10] MEDS: ATORVASTATIN 10 MG TAB PO SCH (16:58)
[2021-11-10] MEDS: FERROUS SULFATE 325 MG TAB PO SCH (16:58)
[2021-11-10] MEDS: ASPIRIN 81 MG PO SCH (16:58)
[2021-11-10 17:00] LABS: Glucose,Whole Blood 133 mg/dL (70-110)
[2021-11-10] MEDS: CYANOCOBALAMIN 500 MCG TAB PO SCH (20:12)
[2021-11-10 20:26] LABS: Glucose,Whole Blood 121 mg/dL (70-110)
[2021-11-11 02:10] VITALS: RESP 17
[2021-11-11 06:42] LABS: Glucose,Whole Blood 100 mg/dL (70-110)
[2021-11-11] MEDS: INSULIN ASPART (NovoLOG) 100 UNIT/ML VIAL SQ SCH ×2 (06:50→11:55)
[2021-11-11 08:30] VITALS: TEMP 98.1
--- NOTE | 2021-11-11 09:07 | P.PN ---
Subjective Patient is seen in follow-up for chronic kidney disease and hyponatremia. Renal function stable. Sodium level also stable as of yesterday. Off IV fluids. Nonoliguric. No vomiting or diarrhea. Denies chest pain or shortness of breath. Blood pressure better. Vital signs are stable. General: Awake. No acute distress. HEENT: Head exam is unremarkable. LUNGS: Breath sounds decreased. HEART: Rate and Rhythm are regular. ABDOMEN: Soft, no distention. EXTREMITITES: No edema. Objective - Vital Signs Vital signs: Vital Signs Temp 98.1 F 11/11/21 08:00 Pulse 58 L 11/11/21 08:00 Resp 17 11/11/21 02:00 BP 159/61 11/11/21 08:00 Pulse Ox 100 11/11/21 08:00 FiO2 Intake & Output 11/10/21 11/11/21 11/11/21 18:59 06:59 18:59 Intake Total 300 Output Total 1000 500 Balance -1000 -200 Weight 74.843 kg Intake: Oral 300 Output: Urine 1000 500 Other: Voiding Method External Catheter # Bowel Movements 2 - Labs CBC & Chem 7: 11/09/21 08:59 11/10/21 05:56 Labs: Abnormal Lab Results - Last 24 Hours (Table) 11/10/21 11/10/21 11/10/21 Range/Units 11:42 16:57 20:24 POC Glucose (mg/dL) 124 H 133 H 121 H (70-110) mg/dL Microbiology - Last 24 Hours (Table) 11/06/21 16:03 Blood Culture - Preliminary Blood No Growth after 96 hours 11/06/21 15:54 Blood Culture - Preliminary Blood No Growth after 96 hours Assessment and Plan Plan: Assessment: 1. Hypovolemic hyponatremia improved with IV fluids. Sodium level stable at 130 yesterday. Urine sodium 51 and urine osmolality 180. TSH normal. 2. Chronic kidney disease stage IIIB with baseline creatinine near 1.2-1.4. Etiology is nephrosclerosis. No proteinuria on UA. 3. VRE UTI s/p antibiotics. 4. Diabetes mellitus. 5. Chronic diastolic CHF with moderate pulmonary hypertension. 6. Anemia of chronic kidney disease. Iron replete. On Aranesp. 7. Hypomagnesemia from poor intake. Replaced. 8. Hypertension with chronic kidney disease. Better controlled. Plan: Maintain 1200 mL fluid restriction. Encouraged oral intake. Avoid nephrotoxins. Stopped Fleet enemas. Continue to monitor renal function and urine output. Repeat BMP and magnesium level 2-3 days postdischarge. Follow up outpatient in 1 week. Cuevas catheter removed on the 2021. Follow-up morning labs.
[2021-11-11] MEDS: SENNOSIDES-DOCUSATE SODIUM 1 EACH TAB PO SCH (09:20)
[2021-11-11] MEDS: CALCIUM CARB-VIT D 500 MG-5 MCG TAB PO SCH (09:21)
[2021-11-11] MEDS: CARBIDOPA-LEVODOPA 25-100 MG 1 EACH TAB PO SCH ×2 (09:21→16:17)
[2021-11-11] MEDS: hydrALAZINE HCL 25 MG TAB PO SCH ×2 (09:21→16:17)
[2021-11-11] MEDS: LINAGLIPTIN 5 MG TABLET PO SCH (09:21)
[2021-11-11] MEDS: APIXABAN 2.5 MG TABLET PO SCH (09:21)
[2021-11-11 11:21] LABS: Glucose,Whole Blood 133 mg/dL (70-110)
[2021-11-11 12:47] LABS: African American GFR (CKD) 50 (>60 ml/min/1.73 sqM); Anion Gap 4 mmol/L; Blood Urea Nitrogen 15 mg/dL (7-17); Calcium 10.3 mg/dL (8.4-10.2); Carbon Dioxide 28 mmol/L (22-30); Chloride 96 mmol/L (98-107); Glucose 105 mg/dL (74-99); Magnesium 1.8 mg/dL (1.6-2.3); Non-African American GFR(CKD) 44 (>60 ml/min/1.73 sqM); Potassium 5.4 mmol/L (3.5-5.1); Sodium 128 mmol/L (137-145)
[2021-11-11] MEDS ORDERED: SODIUM ZIRCONIUM CYCLOSILICATE 10 GM PACKET PO ONE (13:00)
[2021-11-11] MEDS ORDERED: TOLVAPTAN 15 MG 1/2 TABLET PO ONE (13:30)
--- NOTE | 2021-11-11 14:16 | P.DS ---
Providers Date of admission: 11/06/21 13:52 Expected date of discharge: 11/11/21 Attending physician: Sol Mcnamara DO Consults: 11/06/21 13:52 Consult Physician Urgent Consulting Provider: Sukhi Inman Consult Reason/Comments: hyponatremia, ckd Do you want consulting provider notified?: Yes Primary care physician: Aaliyah Evans MD Hospital Course: Patient is a 81-year-old female with a past medical history of atrial fibrillation on anticoagulation with Eliquis, diastolic heart failure, COPD, hypertension, hyperlipidemia, coronary artery disease, CK D stage IV and type 2 diabetes mellitus who was recently admitted for generalized weakness and was treated for UTI and discharged on Bactrim for 5 more days to correction facility. Patient had labs done at the correction facility and she is found to have hyponatremia and hyperkalemia so she was sent back to the ED. Patient states that she has a difficult time eating. She states that she can on ly tolerate pured diet. She stated that she has not been eating much. Patient also states that at the correction facility she had issues with urinary retention and they had to place a Cuevas catheter after straight cathing her twice. In the ED patient found to have a sodium of 122. UA also indicated UTI. Upon further questioning patient complains of some suprapubic pain. Patient was referred for admission to the hospitalist service. Patient was started on Zosyn IV for concerns a UTI. Urine culture grew enterococcus faecalis resistant to VRE. Blood cultures were negative. She was switched to daptomycin and discharge on nitrofurantoin to complete 7 more days. Her Cuevas catheter was discontinued. Gabapentin was discontinued which was thought to be causing lethargy and weaknes s. Nephrology was consulted with regard to her hyponatremia, sodium 122 on admission. Nephrology recommended gentle hydration, and holding Lasix. Her sodium was 130 at the time of discharge. Nephrology recommended fluid restriction to 1500 mL daily on discharge. Patient was noted to have sinus bradycardia with heart rate in the 50s. Her metoprolol was discontinued. Cardiology was consulted and recommended holding metoprolol on discharge. She did have a potassium of 5.4 on 11/11. One dose of Lokelma was ordered. She was advised to follow-up with her PCP within 1-2 days of discharge. She was advised to repeat BMP within 3 days of discharge to be followed by her PCP. General: [non toxic], [no distress], [appears at stated age] Derm: [warm], [dry] Head: [atraumatic], [normocephalic], [symmetric] Eyes: [EOMI], [no lid lag], [anicteric sclera] Mouth: [no lip lesion], [mucus membranes moist] Cardiovascular: [Bradycardic], [no murmur] Lungs: [CTA bilateral], [no rhonchi, no rales] , [no accessory muscle use] Abdominal: [soft], [ nontender to palpation] Ext: [no gross muscle atrophy], [no edema], [no contractures] Neuro: [no focal neuro deficits] Psych: [Alert], [oriented], [appropriate affect] Discharge diagnosis: Hypovolemic hyponatremia Hyperkalemia Sinus bradycardia Generalized weakness secondary to multiple comorbidities exacerbated by bradycardia and dehydration Urinary tract infection secondary to chronic indwelling catheter Chronic kidney disease stage IV Anemia of chronic disease Atrial fibrillation Parkinson's disease Peripheral neuropathy Hypertension Diabetes mellitus Dyslipidemia This complex discharge took about 45 minutes to complete. Pertinent Studies: Brain CT CXR EKG Patient Condition at Discharge: Stable Plan - Discharge Summary New Discharge Prescriptions: New hydrALAZINE HCL [Apresoline] 25 mg PO TID tab Nitrofurantoin Monohyd/M-Cryst [Macrobid] 100 mg PO Q12HR #14 cap Acetaminophen Tab [Tylenol] 650 mg PO Q4HR PRN tab PRN Reason: Fever and/ or mild Pain Continue Ezetimibe [Zetia] 10 mg PO DAILY@1700 Lovastatin [Mevacor] 10 mg PO DAILY@1700 Cyanocobalamin [Vitamin B-12] 500 mcg PO HS Apixaban [Eliquis] 2.5 mg PO BID@0800,1700 sitaGLIPtin [Januvia] 50 mg PO DAILY@0900 Aspirin EC [Ecotrin Low Dose] 81 mg PO DAILY@1700 Folic Acid 1 mg PO DAILY@1700 Magnesium Hydroxide [Milk of Magnesia Concentrate] 7,200 mg PO Q48H PRN PRN Reason: Constipation Meclizine [Antivert] 12.5 mg PO Q8H PRN PRN Reason: Vertigo/Dizziness bisacodyL [Dulcolax] 10 mg RECTAL DAILY PRN PRN Reason: Constipation Calcium Carbonate/Vitamin D3 [Calcium 600 mg-D3 10 Mcg (400 Iu)] 1 cap PO TID@0800,1400,2100 Ferrous Sulfate [Iron (65 MG Elemental)] 325 mg PO DAILY@1700 Epoetin Obed [Procrit] 10,000 unit SQ TH@0800 Colchicine [Mitigare] 0.6 mg PO BID@0800,1700 Na Phos,M-B/Na Phos,Di-Ba [Fleet Adult] 133 ml RECTAL DAILY PRN PRN Reason: Constipation Carbidopa/Levodopa [Parcopa 25-100 mg Odt] 1 tab PO TID@0800,1400,2100 Sennosides/Docusate Sodium [Senna Plus 8.6-50 mg Tablet] 1 tab PO BID@0800,1700 Ensure Enlive 237 ml PO BID@0800,1700 Discontinued Metoprolol Tartrate [Lopressor] 12.5 mg PO BID@0800,1700 Sodium Polystyrene Sulfonate [Kayexalate] 15 gm PO ONCE Gabapentin [Neurontin] 100 mg PO BID@0800,1400 Gabapentin [Neurontin] 200 mg PO HS@2100 Furosemide 10mg/Ml 40 mg IV ONCE Discharge Medication List Ezetimibe [Zetia] 10 mg PO DAILY@17011/20/13 [History] Lovastatin [Mevacor] 10 mg PO DAILY@169911/20/13 [History] Apixaban [Eliquis] 2.5 mg PO BID@0800,1700 02/17/20 [History] Cyanocobalamin [Vitamin B-12] 500 mcg PO HS 02/17/20 [History] Epoetin Obed [Procrit] 10,000 unit SQ TH@0800 02/05/21 [History] Ferrous Sulfate [Iron (65 MG Elemental)] 325 mg PO DAILY@169902/05/21 [History] Aspirin EC [Ecotrin Low Dose] 81 mg PO DAILY@169907/19/21 [History] Colchicine [Mitigare] 0.6 mg PO BID@0800,1700 07/19/21 [History] sitaGLIPtin [Januvia] 50 mg PO DAILY@0900 07/19/21 [History] Folic Acid 1 mg PO DAILY@169910/22/21 [History] Calcium Carbonate/Vitamin D3 [Calcium 600 mg-D3 10 Mcg (400 Iu)] 1 cap PO TID@0800,1400,209911/06/21 [History] Carbidopa/Levodopa [Parcopa 25-100 mg Odt] 1 tab PO TID@0800,1400,2100 11/06/21 [History] Ensure Enlive 237 ml PO BID@0800,1700 11/06/21 [History] Magnesium Hydroxide [Milk of Magnesia Concentrate] 7,200 mg PO Q48H PRN 11/06/21 [History] Meclizine [Antivert] 12.5 mg PO Q8H PRN 11/06/21 [History] Na Phos,M-B/Na Phos,Di-Ba [Fleet Adult] 133 ml RECTAL DAILY PRN 11/06/21 [History] Sennosides/Docusate Sodium [Senna Plus 8.6-50 mg Tablet] 1 tab PO BID@0800,1700 11/06/21 [History] bisacodyL [Dulcolax] 10 mg RECTAL DAILY PRN 11/06/21 [History] Acetaminophen Tab [Tylenol] 650 mg PO Q4HR PRN tab 11/10/21 [Rx] Nitrofurantoin Monohyd/M-Cryst [Macrobid] 100 mg PO Q12HR #14 cap 11/10/21 [Rx] hydrALAZINE HCL [Apresoline] 25 mg PO TID tab 11/10/21 [Rx] Follow up Appointment(s)/Referral(s): Aaliyah Evans MD [Primary Care Provider] - 1-2 days Ambulatory/Diagnostic Orders: Basic Metabolic Panel [LAB.AMB] Time Frame: 3 Days, Location: None Selected Patient Instructions/Handouts: Hyponatremia (DC), Encephalopathy (DC) Activity/Diet/Wound Care/Special Instructions: Diet: Fluid restriction, Cardiac FU PCP within 1-2 days of DC. Repeat BMP within 3 days, results to be followed by PCP. Take all medications as advised. Come back to the ED or call 911 for worsening of symptoms. Discharge Disposition: TRANSFER TO SNF/ECF
[2021-11-11] MEDS ORDERED: SODIUM POLYSTYRENE SULFONATE 15 GM/60 ML BOTTLE PO ONE (14:30)
[2021-11-11 15:45] VITALS: BP 142/62; PULSE 60
[2021-11-11 16:30] LABS: Glucose,Whole Blood 125 mg/dL (70-110)
[2021-11-12] MEDS ORDERED: DARBEPOETIN ALFA 25 MCG/0.42 ML SYRINGE SQ SCH (08:00)
== END 2021-11-11 16:40 | DRG 699 ==
LOC: EC 11:50 → 4SSUR 13:52
PROVIDERS: ADMIT Internal Medicine; ATTEND Internal Medicine
DX: T83.518A Infection and inflammatory reaction due to other urinary catheter, initial encounter (principal); D61.818 Other pancytopenia; N17.9 Acute kidney failure, unspecified; N39.0 Urinary tract infection, site not specified; N18.4 Chronic kidney disease, stage 4 (severe); Z16.21 Resistance to vancomycin; E87.1 Hypo-osmolality and hyponatremia; I13.0 Hypertensive heart and chronic kidney disease with heart failure and stage 1 through stage 4 chronic kidney disease, or unspecified chronic kidney disease; I48.19 Other persistent atrial fibrillation; I50.42 Chronic combined systolic (congestive) and diastolic (congestive) heart failure; Y84.6 Urinary catheterization as the cause of abnormal reaction of the patient, or of later complication, without mention of misadventure at the time of the procedure; B95.2 Enterococcus as the cause of diseases classified elsewhere; D63.1 Anemia in chronic kidney disease; E11.22 Type 2 diabetes mellitus with diabetic chronic kidney disease; E11.42 Type 2 diabetes mellitus with diabetic polyneuropathy; Z20.822 Contact with and (suspected) exposure to COVID-19; Z86.16 Personal history of COVID-19; I27.20 Pulmonary hypertension, unspecified; E78.5 Hyperlipidemia, unspecified; G20 Parkinson's disease; J44.9 Chronic obstructive pulmonary disease, unspecified; E11.51 Type 2 diabetes mellitus with diabetic peripheral angiopathy without gangrene; E83.42 Hypomagnesemia; E86.0 Dehydration; E86.1 Hypovolemia; E87.5 Hyperkalemia; I25.10 Atherosclerotic heart disease of native coronary artery without angina pectoris; I25.2 Old myocardial infarction; M81.0 Age-related osteoporosis without current pathological fracture; R13.10 Dysphagia, unspecified; M10.9 Gout, unspecified; R29.6 Repeated falls; Z91.81 History of falling; R00.1 Bradycardia, unspecified; R33.9 Retention of urine, unspecified; Z53.29 Procedure and treatment not carried out because of patient's decision for other reasons; Z79.01 Long term (current) use of anticoagulants; Z79.82 Long term (current) use of aspirin; Z79.84 Long term (current) use of oral hypoglycemic drugs; Z79.899 Other long term (current) drug therapy; Z82.49 Family history of ischemic heart disease and other diseases of the circulatory system; Z82.5 Family history of asthma and other chronic lower respiratory diseases; Z86.010 Personal history of colon polyps; Z87.442 Personal history of urinary calculi; Z87.891 Personal history of nicotine dependence; Z95.1 Presence of aortocoronary bypass graft
CPT/HCPCS: 36415; 70450; 71046; 80048; 80053; 81001; 82140; 82728; 82803; 83540; 83550; 83605; 83735; 83880; 83930; 83935; 84133; 84300; 84443; 84550; 85025; 85027; 85610; 85730; 87040; 87077; 87086; 87186; 87635; 93005; 94760; 99285

== ENCOUNTER 2021-12-09 18:39 | Emergency (ER) | payer MEDICARE, OTHER ==
[2021-12-09 19:44] LABS: Anisocytosis Slight; Basophils % (A) 0 %; Eosinophils % (A) 1 %; HCT 21.9 % (34.0-46.0); Hypochromasia Moderate; Lymphocytes % (A) 24 %; MCH 32.1 pg (25.0-35.0); MCHC 32.3 g/dL (31.0-37.0); Macrocytosis Slight; Mean Platelet Volume 9.5; Monocytes # (A) 0.2 k/uL (0-1.0); Monocytes % (A) 6 %; Neutrophils # (A) 2.8 k/uL (1.3-7.7); Neutrophils % (A) 68 %; Poikilocytosis Slight; RBC 2.19 m/uL (3.80-5.40); RDW 18.4 % (11.5-15.5); WBC 4.1 k/uL (3.8-10.6)
[2021-12-09 19:50] LABS: MCV 99.6 fL (80.0-100.0)
[2021-12-09 19:54] LABS: Albumin 3.1 g/dL (3.5-5.0); Calcium 6.5 mg/dL (8.4-10.2); Potassium 4.1 mmol/L (3.5-5.1); Total Bilirubin 0.3 mg/dL (0.2-1.3)
[2021-12-09 20:12] LABS: Platelet Count 92 k/uL (150-450)
[2021-12-09 20:14] LABS: Ovalocytes Present
[2021-12-09 20:40] VITALS: RESP 16
--- NOTE | 2021-12-09 20:44 | ED ---
Recheck HPI - General Chief Complaint: Recheck/Abnormal Lab/Rx Stated Complaint: Low Hemoglobin Time Seen by Provider: 12/09/21 19:05 Source: patient, EMS, RN notes reviewed Mode of arrival: EMS Limitations: altered mental status (mild and at baseline) - History of Present Illness Initial Comments: This is an 81-year-old female who presents to the emergency department for low hemoglobin levels and COVID-19. Patient was sent over from [facility]. She had a cholecystectomy on 11/27/2021 and was just discharged from the hospital on 12/07/21. Patient is noted to be acting scared and confused in the room, stating that she does not want to be left alone. She currently denies being in any pain. I spoke with the nursing debone supervisor at [facility], who states that the patient is normally somewhat confused on baseline. She was having admission lab work done for [facility], which revealed the low hemoglobin level. Denies any fevers, chills, sore throat, cough, dyspnea, chest pain, palpitations, abdominal pain, nausea, vomiting, diarrhea, back pain, or headaches. MD Complaint: abnormal lab - Related Data Home Medications Medication Instructions Recorded Confirmed Ezetimibe [Zetia] 10 mg PO DAILY@1700 11/20/13 12/09/21 Lovastatin [Mevacor] 10 mg PO DAILY@169911/20/13 12/09/21 Apixaban [Eliquis] 2.5 mg PO BID@0800,1700 02/17/20 12/09/21 Cyanocobalamin [Vitamin B-12] 500 mcg PO HS@2100 02/17/20 12/09/21 Ferrous Sulfate [Iron (65 MG 325 mg PO DAILY@17002/05/21 12/09/21 Elemental)] Aspirin EC [Ecotrin Low Dose] 81 mg PO DAILY@169907/19/21 12/09/21 Colchicine [Mitigare] 0.6 mg PO BID@0800,169907/19/21 12/09/21 sitaGLIPtin [Januvia] 50 mg PO DAILY@0800 07/19/21 12/09/21 Folic Acid 1 mg PO DAILY@1700 10/22/21 12/09/21 Ensure Enlive 237 ml PO BID@0800,1700 11/06/21 12/09/21 Magnesium Hydroxide [Milk of 7,200 mg PO Q48H PRN 11/06/21 12/09/21 Magnesia Concentrate] Meclizine [Antivert] 12.5 mg PO Q8H PRN 11/06/21 12/09/21 Na Phos,M-B/Na Phos,Di-Ba [Fleet 133 ml RECTAL DAILY PRN 11/06/21 12/09/21 Adult] Sennosides/Docusate Sodium [Senna 1 tab PO BID@0800,1700 11/06/21 12/09/21 Plus 8.6-50 mg Tablet] bisacodyL [Dulcolax] 10 mg RECTAL DAILY PRN 11/06/21 12/09/21 Acetaminophen Tab [Tylenol] 650 mg PO Q4HR PRN 11/25/21 12/09/21 hydrALAZINE HCL [Apresoline] 25 mg PO TID@0800,1400,2100 11/25/21 12/09/21 Amoxic-Pot Clav 875-125Mg 1 tab PO BID@0800,2100 12/09/21 12/09/21 [Augmentin 875-125] Carbidopa-Levodopa 25-100 mg 1 tab PO TID@0800,1400,2100 12/09/21 12/09/21 [Sinemet 25-100] polyethylene glycoL 3350 [Miralax] 17 gm PO DAILY@0800 12/09/21 12/09/21 Allergies Allergy/AdvReac Type Severity Reaction Status Date / Time tuberculin, purified protein Allergy Per [place] Verified 12/09/21 23:32 deriva albuterol [From DuoNeb] AdvReac Nausea Verified 12/09/21 23:32 cortisone AdvReac PAIN Verified 12/09/21 23:32 hydrocodone AdvReac Nausea Verified 12/09/21 23:32 ipratropium [From DuoNeb] AdvReac Nausea Verified 12/09/21 23:32 procaine HCl [From Novocain] AdvReac pain Verified 12/09/21 23:32 allergy medicines AdvReac "dries me Uncoded 12/09/21 18:45 out, bloody noses,generalized pain" Review of Systems ROS Statement: Those systems with pertinent positive or pertinent negative responses have been documented in the HPI. ROS Other: All systems not noted in ROS Statement are negative. Past Medical History Past Medical History: Atrial Fibrillation, Atrial Flutter, Coronary Artery Disea se (CAD), Heart Failure, COPD, Diabetes Mellitus, GERD/Reflux, Hyperlipidemia, Hypertension, Myocardial Infarction ([place]), Musculoskeletal Disorder, Renal Disease, Respiratory Disorder, Sleep Apnea/CPAP/BIPAP, Vascular Disorder Additional Past Medical History / Comment(s): NIDDM type II, neuropathy bilateral legs/feet, CKD stage III, nephrolithiasis, anemia, diastolic CHF, c ardiac valve disease, pulmonary htn, home oxygen prn, afib/flutter with RVR, pt states she fell one year ago and suffered 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 Last Myocardial Infarction Date:: 1999 History of Any Multi-Drug Resistant Organisms: VRE Date of last positivie culture/infection: 11/06/21 MDRO Source:: Urine Past Surgical History: Appendectomy, Coronary Bypass/CABG, Heart Catheterization, Hysterectomy, Tonsillectomy Additional Past Surgical History / Comment(s): 1999 CABG 4 vessel, BETHEL/cardioversion, abdominal aortagrams/bilateral runoffs, R atherectomy/PTBA/stent to R SFA, R neck benign lymph node removed, cysto/lithotripsy/aborted d/t unable to visualize stone, EGD, colonoscopy Past Anesthesia/Blood Transfusion Reactions: Motion Sickness Additional Past Anesthesia/Blood Transfusion Reaction / Comment(s): Pt has motion sickness/clausterphobia. Past Psychological History: No Psychological Hx Reported Smoking Status: Former smoker Past Alcohol Use History: None Reported Past Drug Use History: None Reported - Past Family History Brother(s) Family Medical History: Cancer Son(s) Family Medical History: Cancer, Myocardial Infarction ([place]) Sister(s) Family Medical History: Cancer Mother Family Medical History: COPD, Myocardial Infarction ([place]) Additional Family Medical History / Comment(s): mother of [place]-pt cannot recall at what age. General Exam Limitations: altered mental status (mild and at baseline) General appearance: alert Head exam: Present: atraumatic, normocephalic, normal inspection Respiratory exam: Present: normal lung sounds bilaterally. Absent: respiratory distress, wheezes, rales, rhonchi, stridor Cardiovascular Exam: Present: regular rate, normal rhythm, normal heart sounds. Absent: systolic murmur, diastolic murmur, rubs, gallop, clicks Neurological exam: Present: alert Psychiatric exam: Present: normal affect, normal mood Skin exam: Present: warm, dry, intact, normal color. Absent: rash Course Vital Signs 12/09/21 12/09/21 12/09/21 18:41 20:40 20:50 Temperature 98.7 F 97.3 F L 97.3 F L Pulse Rate 72 69 69 Respiratory 20 16 16 Rate Blood Pressure 117/54 137/63 137/63 O2 Sat by Pulse 100 100 98 Oximetry 12/09/21 12/09/21 12/09/21 21:00 21:30 22:24 Temperature 97.9 F 98.0 F Pulse Rate 64 67 64 Respiratory 16 16 16 Rate Blood Pressure 130/56 148/77 140/63 O2 Sat by Pulse 98 98 Oximetry 12/10/21 00:17 Temperature 97.7 F Pulse Rate 66 Respiratory 16 Rate Blood Pressure 134/59 O2 Sat by Pulse 97 Oximetry Medical Decision Making - Medical Decision Making This is an 81-year-old female who presents to the emergency department for a low hemoglobin level. Lab work was rechecked, and her hemoglobin had increased from 6.0 to 7.0. Patient transfused with 1 unit of packed red blood cells. Given that she did have recent surgery, computed tomography scan of the abdomen and pelvis was obtained. This revealed no acute irregularities. Patient's occult blood was positive, however there was no marielle blood in her stool. Patient also noted to have chronic anemia. Given that the patient's hemoglobin level improved from prior lab work and she is hemodynamically stable, patient is stable for discharge home. Advised to follow-up with her primary care provider and Dr. Rodas for follow up and to discuss when to repeat blood work. Return precautions reviewed in depth, the patient is instructed to return to the emergency department with any new, worsening, or concerning symptoms. Patient verbalized understanding. This case was discussed in detail with the attending ED physician. Presentation, findings, and treatment plan discussed in detail as well. - Lab Data Result diagrams: 12/09/21 19:40 12/09/21 19:40 Lab Results 12/09/21 12/09/21 12/09/21 Range/Units 19:40 19:40 19:40 WBC 4.1 (3.8-10.6) k/uL RBC 2.19 L (3.80-5.40) m/uL Hgb 7.0 L D (11.4-16.0) gm/dL Hct 21.9 L (34.0-46.0) % MCV 99.6 D (80.0-100.0) fL MCH 32.1 (25.0-35.0) pg MCHC 32.3 (31.0-37.0) g/dL RDW 18.4 H (11.5-15.5) % Plt Count 92 L (150-450) k/uL MPV 9.5 Neutrophils % 68 % Lymphocytes % 24 % Monocytes % 6 % Eosinophils % 1 % Basophils % 0 % Neutrophils # 2.8 (1.3-7.7) k/uL Lymphocytes # 1.0 (1.0-4.8) k/uL Monocytes # 0.2 (0-1.0) k/uL Eosinophils # 0.0 (0-0.7) k/uL Basophils # 0.0 (0-0.2) k/uL Manual Slide Review Performed Hypochromasia Moderate Poikilocytosis Slight Anisocytosis Slight Macrocytosis Slight Ovalocytes Present Sodium 137 (137-145) mmol/L Potassium 4.1 (3.5-5.1) mmol/L Chloride 100 (98-107) mmol/L Carbon Dioxide 26 (22-30) mmol/L Anion Gap 11 mmol/L BUN 27 H (7-17) mg/dL Creatinine 1.13 H (0.52-1.04) mg/dL Est GFR (CKD-EPI)AfAm 52 (>60 ml/min/1.73 sqM) Est GFR (CKD-EPI)NonAf 46 (>60 ml/min/1.73 sqM) Glucose 100 H (74-99) mg/dL Calcium 6.5 L (8.4-10.2) mg/dL Total Bilirubin 0.3 (0.2-1.3) mg/dL AST 21 (14-36) U/L ALT 12 (4-34) U/L Alkaline Phosphatase 81 (38-126) U/L Total Protein 6.0 L (6.3-8.2) g/dL Albumin 3.1 L (3.5-5.0) g/dL Stool Occult Blood (Negative) Blood Type A Positive Blood Type Recheck A Pos Bld Type Recheck Status No Antibody Screen NEGATIVE Crossmatch See Detail Spec Expiration Date 12/12/2021 - 233912/09/21 Range/Units 23:25 WBC (3.8-10.6) k/uL RBC (3.80-5.40) m/uL Hgb (11.4-16.0) gm/dL Hct (34.0-46.0) % MCV (80.0-100.0) fL MCH (25.0-35.0) pg MCHC (31.0-37.0) g/dL RDW (11.5-15.5) % Plt Count (150-450) k/uL MPV Neutrophils % % Lymphocytes % % Monocytes % % Eosinophils % % Basophils % % Neutrophils # (1.3-7.7) k/uL Lymphocytes # (1.0-4.8) k/uL Monocytes # (0-1.0) k/uL Eosinophils # (0-0.7) k/uL Basophils # (0-0.2) k/uL Manual Slide Review Hypochromasia Poikilocytosis Anisocytosis Macrocytosis Ovalocytes Sodium (137-145) mmol/L Potassium (3.5-5.1) mmol/L Chloride (98-107) mmol/L Carbon Dioxide (22-30) mmol/L Anion Gap mmol/L BUN (7-17) mg/dL Creatinine (0.52-1.04) mg/dL Est GFR (CKD-EPI)AfAm (>60 ml/min/1.73 sqM) Est GFR (CKD-EPI)NonAf (>60 ml/min/1.73 sqM) Glucose (74-99) mg/dL Calcium (8.4-10.2) mg/dL Total Bilirubin (0.2-1.3) mg/dL AST (14-36) U/L ALT (4-34) U/L Alkaline Phosphatase (38-126) U/L Total Protein (6.3-8.2) g/dL Albumin (3.5-5.0) g/dL Stool Occult Blood Positive H (Negative) Blood Type Blood Type Recheck Bld Type Recheck Status Antibody Screen Crossmatch Spec Expiration Date - Radiology Data Radiology results: report reviewed, image reviewed Disposition Clinical Impression: Anemia Disposition: HOME SELF-CARE Instructions (If sedation given, give patient instructions): Iron Rich Diet (ED), Anemia (ED) Additional Instructions: Return to the emergency department with any new, worsening, or concerning symptoms. Follow up with your primary care provider in 1-2 days. Is patient prescribed a controlled substance at d/c from ED?: No Referrals: Abel Mathews DO [Primary Care Provider] - 1-2 days
--- NOTE | 2021-12-09 22:13 | CT ---
EXAMINATION TYPE: CT abdomen pelvis wo con DATE OF EXAM: 12/09/2021 COMPARISON: 12/02/2021 HISTORY: Low hemoglobin, recent GI surgery CT DLP: 750.7 mGycm Automated exposure control for dose reduction was used. Images obtained from the diaphragm to the floor the pelvis with no contrast. There is some infiltrate and atelectasis at the lung bases. Heart is slightly enlarged. No pleural effusion. No pericardial effusion. Liver and spleen are intact. The bile duct are not dila codie. There are clips separately from cholecystectomy. There is no sign of pancreatic mass. The stomac h appears intact. There is no adrenal mass. Kidneys have normal size. No hydronephrosis. Ureters are nondilated. No ret roperitoneal adenopathy. Abdominal aorta is atheromatous. 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 There is some fluid-filled mildly dilated small bowel loops in the mid abdomen. Small bow el measures up to 3.3 cm. Large small pattern is fairly normal. There are multiple sigmoid diverticul a. No diverticulitis. Bladder distends smoothly. No inguinal hernia. No free fluid in the pelvis. No sign of a pelvic mass. The lumbar vertebrae have normal alignment. No compression fracture. There is degenerative mild disc space narrowing and spur formation in the lumbar spine. The bony pelvis is intact. Hip joints are intact. IMPRESSION: Atherosclerotic vascular disease. 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 Mildly dilated small bowel consistent with small bowel ileus. No transition point seen. Moderate colo arcenio diverticulosis without diverticulitis. Mild infiltrate and atelectasis at the lung bases. I do no t suspect a mechanical bowel obstruction. Small bowel distention slightly increased compared to last exam. Lung abnormalities similar to last e xam.
[2021-12-10 00:18] VITALS: TEMP 97.7
[2021-12-10 01:43] VITALS: BP 136/78; PULSE 80
== END 2021-12-10 01:42 | disposition home or self-care (01) ==
LOC: EC 18:39
DX: D64.9 Anemia, unspecified (principal); U07.1 COVID-19; J44.9 Chronic obstructive pulmonary disease, unspecified; I48.91 Unspecified atrial fibrillation; I25.2 Old myocardial infarction; I25.10 Atherosclerotic heart disease of native coronary artery without angina pectoris; E78.5 Hyperlipidemia, unspecified; K21.9 Gastro-esophageal reflux disease without esophagitis; I13.0 Hypertensive heart and chronic kidney disease with heart failure and stage 1 through stage 4 chronic kidney disease, or unspecified chronic kidney disease; E11.22 Type 2 diabetes mellitus with diabetic chronic kidney disease; N18.30 Chronic kidney disease, stage 3 unspecified; I50.30 Unspecified diastolic (congestive) heart failure; E11.40 Type 2 diabetes mellitus with diabetic neuropathy, unspecified; M10.9 Gout, unspecified; Z95.1 Presence of aortocoronary bypass graft; Z87.891 Personal history of nicotine dependence; Z88.8 Allergy status to other drugs, medicaments and biological substances; Z88.5 Allergy status to narcotic agent; Z88.4 Allergy status to anesthetic agent; Z79.82 Long term (current) use of aspirin; Z79.899 Other long term (current) drug therapy; Z79.84 Long term (current) use of oral hypoglycemic drugs; Z79.01 Long term (current) use of anticoagulants
CPT/HCPCS: 36415; 86900; 86901; 80053; 85025; 86850; 86920; 82272; 74176; 99285; 36430; P9016

== ENCOUNTER 2022-02-23 11:27 | Observation (INO) | payer MEDICARE, OTHER ==
--- NOTE | 2022-02-23 11:56 | ED ---
Female Urogenital HPI - General Chief complaint: Urogenital Stated complaint: back pain Time Seen by Provider: 02/23/22 11:44 Source: patient, EMS, RN notes reviewed Mode of arrival: EMS Limitations: no limitations - History of Present Illness Initial comments: 81-year-old female brought in by EMS with complaints of generalized weakness and inability and late well with her walker, urinary burning, decreased urine output over 24+ hours. Patient states she's been dribbling when she tries to urinate. Also she states she believes that she is drinking adequate amounts of fluid still having symptoms. She denies any overt fevers chills or sweats she does have low back pain and seems to radiate bilaterally. Suprapubic discomfort. Additionally the patient does state that she's had a peripheral edema to her lower extremities which is relatively new for her. No other complaints MD Complaint: dysuria - Related Data Home Medications Medication Instructions Recorded Confirmed Ezetimibe [Zetia] 10 mg PO DAILY 11/20/13 02/23/22 Lovastatin [Mevacor] 10 mg PO DAILY 11/20/13 02/23/22 Apixaban [Eliquis] 2.5 mg PO BID 02/17/20 02/23/22 Cyanocobalamin [Vitamin B-12] 500 mcg PO DAILY 02/17/20 02/23/22 Ferrous Sulfate [Iron (65 MG 325 mg PO DAILY 02/05/21 02/23/22 Elemental)] Aspirin EC [Ecotrin Low Dose] 81 mg PO DAILY 07/19/21 02/23/22 Colchicine [Mitigare] 0.6 mg PO BID 07/19/21 02/23/22 sitaGLIPtin [Januvia] 50 mg PO DAILY 07/19/21 02/23/22 Folic Acid 1 mg PO DAILY 10/22/21 02/23/22 Acetaminophen Tab [Tylenol] 650 mg PO Q4HR PRN 11/25/21 02/23/22 hydrALAZINE HCL [Apresoline] 25 mg PO TID 11/25/21 02/23/22 Carbidopa-Levodopa 25-100 mg 1 tab PO TID 12/09/21 02/23/22 [Sinemet 25-100] Shen/D3/Mag11/Zinc/Kiln Mechanic/[place]/Bor 1 tab PO DAILY 02/23/22 02/23/22 [Caltrate 600+D Plus Tablet] Furosemide [Lasix] 20 mg PO DAILY 02/23/22 02/23/22 Gabapentin [Neurontin] 100 mg PO QID 02/23/22 02/23/22 Allergies Allergy/AdvReac Type Severity Reaction Status Date / Time tuberculin, purified protein Allergy Per [place] Verified 02/23/22 11:46 deriva albuterol [From DuoNeb] AdvReac Nausea Verified 02/23/22 11:46 cortisone AdvReac PAIN Verified 02/23/22 11:46 hydrocodone AdvReac Nausea Verified 02/23/22 11:46 ipratropium [From DuoNeb] AdvReac Nausea Verified 02/23/22 11:46 procaine HCl [From Novocain] AdvReac pain Verified 02/23/22 11:46 allergy medicines AdvReac "dries me Uncoded 02/23/22 11:46 out, bloody noses,generalized pain" Review of Systems ROS Statement: Those systems with pertinent positive or pertinent negative responses have been documented in the HPI. ROS Other: All systems not noted in ROS Statement are negative. Past Medical History Past Medical History: Atrial Fibrillation, Atrial Flutter, Coronary Artery Disease (CAD), Heart Failure, COPD, Diabetes Mellitus, GERD/Reflux, Hyperlipidemia, Hypertension, Myocardial Infarction ([place]), Musculoskeletal Disorder, Renal Disease, Respiratory Disorder, Sleep Apnea/CPAP/BIPAP, Vascular Disorder Additional Past Medical History / Comment(s): NIDDM type II, neuropathy bilate ral legs/feet, CKD stage III, nephrolithiasis, anemia, diastolic CHF, cardiac valve disease, pulmonary htn, home oxygen prn, afib/flutter with RVR, pt states she fell one year ago and suffered 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 Last Myocardial Infarction Date:: 1999 History of Any Multi-Drug Resistant Organisms: VRE Date of last positivie culture/infection: 11/06/21 MDRO Source:: Urine Past Surgical History: Appendectomy, Coronary Bypass/CABG, Heart Catheterizati on, Hysterectomy, Tonsillectomy Additional Past Surgical History / Comment(s): 1999 CABG 4 vessel, BETHEL/cardioversion, abdominal aortagrams/bilateral runoffs, R atherectomy/PTB A/stent to R SFA, R neck benign lymph node removed, cysto/lithotripsy/aborted d/t unable to visualize stone, EGD, colonoscopy Past Anesthesia/Blood Transfusion Reactions: Motion Sickness Additional Past Anesthesia/Blood Transfusion Reaction / Comment(s): Pt has motion sickness/clausterphobia. Past Psychological History: No Psychological Hx Reported Smoking Status: Former smoker Past Alcohol Use History: None Reported Past Drug Use History: None Reported - Past Family History Brother(s) Family Medical History: Cancer Son(s) Family Medical History: Cancer, Myocardial Infarction ([place]) Sister(s) Family Medical History: Cancer Mother Family Medical History: COPD, Myocardial Infarction ([place]) Additional Family Medical History / Comment(s): mother of TN-pt cannot recall at what age. General Exam - General Exam Comments Initial Comments: This is a well-developed well-nourished awake alert oriented 4 female Limitations: no limitations General appearance: alert, in no apparent distress Head exam: Present: atraumatic, normocephalic, normal inspection Eye exam: Present: normal appearance, PERRL, EOMI. Absent: scleral icterus, conjunctival injection, periorbital swelling ENT exam: Present: mucous membranes dry Neck exam: Present: normal inspection. Absent: tenderness, meningismus, lymphadenopathy Respiratory exam: Present: normal lung sounds bilaterally. Absent: respiratory distress, wheezes, rales, rhonchi, stridor Cardiovascular Exam: Present: normal rhythm, bradycardia, normal heart sounds. Absent: systolic murmur, diastolic murmur, rubs, gallop, clicks GI/Abdominal exam: Present: soft, tenderness (Mild suprapubic tenderness. No overt guarding rebound masses or bruits), normal bowel sounds. Absent: distended, guarding, rebound, rigid Extremities exam: Present: full ROM, normal capillary refill, pedal edema (Some evidence of stasis changes). Absent: tenderness, joint swelling, calf tenderness Back exam: Present: normal inspection Neurological exam: Present: alert, oriented X3, CN II-XII intact Psychiatric exam: Present: normal affect, normal mood Skin exam: Present: warm, dry, intact, normal color. Absent: rash Course Vital Signs 02/23/22 11:31 Temperature 98.1 F Pulse Rate 55 L Respiratory 16 Rate Blood Pressure 140/62 O2 Sat by Pulse 95 Oximetry Medical Decision Making - Medical Decision Making I did discuss findings with the patient also with Dr. Lewis - Lab Data Result diagrams: 02/23/22 11:55 02/23/22 11:55 Lab Results 02/23/22 02/23/22 02/23/22 Range/Units 11:55 11:55 11:55 WBC 3.1 L (3.8-10.6) k/uL RBC 2.64 L (3.80-5.40) m/uL Hgb 8.5 L (11.4-16.0) gm/dL Hct 26.3 L (34.0-46.0) % MCV 99.4 D (80.0-100.0) fL MCH 32.3 (25.0-35.0) pg MCHC 32.4 (31.0-37.0) g/dL RDW 19.9 H (11.5-15.5) % Plt Count 151 (150-450) k/uL MPV 11.1 Neutrophils % (Manual) 58 % Lymphocytes % (Manual) 32 % Monocytes % (Manual) 10 % Neutrophils # (Manual) 1.80 (1.3-7.7) k/uL Lymphocytes # (Manual) 0.99 L (1.0-4.8) k/uL Monocytes # (Manual) 0.31 (0-1.0) k/uL Nucleated RBCs 0 (0-0) /100 WBC Hypochromasia Moderate Poikilocytosis Slight Anisocytosis Slight Macrocytosis Moderate Tear Drop Cells Present Sodium 139 (137-145) mmol/L Potassium 4.6 (3.5-5.1) mmol/L Chloride 110 H (98-107) mmol/L Carbon Dioxide 18 L (22-30) mmol/L Anion Gap 11 mmol/L BUN 44 H (7-17) mg/dL Creatinine 1.81 H (0.52-1.04) mg/dL Est GFR (CKD-EPI)AfAm 30 (>60 ml/min/1.73 sqM) Est GFR (CKD-EPI)NonAf 26 (>60 ml/min/1.73 sqM) Glucose 85 (74-99) mg/dL Plasma Lactic Acid Roderick 0.7 (0.7-2.0) mmol/L Calcium 8.5 (8.4-10.2) mg/dL Total Bilirubin 1.0 (0.2-1.3) mg/dL AST 33 (14-36) U/L ALT 7 (4-34) U/L Alkaline Phosphatase 79 (38-126) U/L Creatine Kinase 134 (30-135) U/L Total Protein 7.5 (6.3-8.2) g/dL Albumin 4.2 (3.5-5.0) g/dL Lipase 99 (23-300) U/L Urine Color Urine Appearance (Clear) Urine pH (5.0-8.0) Ur Specific [place] (1.001-1.035) Urine Protein (Negative) Urine Glucose (UA) (Negative) Urine Ketones (Negative) Urine Blood (Negative) Urine Nitrite (Negative) Urine Bilirubin (Negative) Urine Urobilinogen (<2.0) mg/dL Ur Leukocyte Esterase (Negative) Urine RBC (0-5) /hpf Urine WBC (0-5) /hpf Ur Squamous Epith Cells (0-4) /hpf Urine Bacteria (None) /hpf Hyaline Casts (0-2) /lpf Urine Mucus (None) /hpf 02/23/22 Range/Units 12:39 WBC (3.8-10.6) k/uL RBC (3.80-5.40) m/uL Hgb (11.4-16.0) gm/dL Hct (34.0-46.0) % MCV (80.0-100.0) fL MCH (25.0-35.0) pg MCHC (31.0-37.0) g/dL RDW (11.5-15.5) % Plt Count (150-450) k/uL MPV Neutrophils % (Manual) % Lymphocytes % (Manual) % Monocytes % (Manual) % Neutrophils # (Manual) (1.3-7.7) k/uL Lymphocytes # (Manual) (1.0-4.8) k/uL Monocytes # (Manual) (0-1.0) k/uL Nucleated RBCs (0-0) /100 WBC Hypochromasia Poikilocytosis Anisocytosis Macrocytosis Tear Drop Cells Sodium (137-145) mmol/L Potassium (3.5-5.1) mmol/L Chloride (98-107) mmol/L Carbon Dioxide (22-30) mmol/L Anion Gap mmol/L BUN (7-17) mg/dL Creatinine (0.52-1.04) mg/dL Est GFR (CKD-EPI)AfAm (>60 ml/min/1.73 sqM) Est GFR (CKD-EPI)NonAf (>60 ml/min/1.73 sqM) Glucose (74-99) mg/dL Plasma Lactic Acid Roderick (0.7-2.0) mmol/L Calcium (8.4-10.2) mg/dL Total Bilirubin (0.2-1.3) mg/dL AST (14-36) U/L ALT (4-34) U/L Alkaline Phosphatase (38-126) U/L Creatine Kinase (30-135) U/L Total Protein (6.3-8.2) g/dL Albumin (3.5-5.0) g/dL Lipase (23-300) U/L Urine Color Yellow Urine Appearance Cloudy H (Clear) Urine pH 5.5 (5.0-8.0) Ur Specific [place] 1.015 (1.001-1.035) Urine Protein 1+ H (Negative) Urine Glucose (UA) Negative (Negative) Urine Ketones Negative (Negative) Urine Blood Trace H (Negative) Urine Nitrite Negative (Negative) Urine Bilirubin Negative (Negative) Urine Urobilinogen <2.0 (<2.0) mg/dL Ur Leukocyte Esterase Small H (Negative) Urine RBC 35 H (0-5) /hpf Urine WBC 21 H (0-5) /hpf Ur Squamous Epith Cells 2 (0-4) /hpf Urine Bacteria Rare H (None) /hpf Hyaline Casts 3 H (0-2) /lpf Urine Mucus Occasional H (None) /hpf - Radiology Data Radiology results: image reviewed (I did review the x-ray there is evidence of ileus on the KUB.) Disposition Clinical Impression: Acute urinary retention, Oliguria, Hematuria, Dehydration, Weakness, Failure to thrive Disposition: ADMITTED IP TO THIS [facility] Condition: Stable Referrals: Benson Boswell MD [Primary Care Provider] - 1-2 days Decision Date: 02/23/22 Decision Time: 14:45
[2022-02-23 12:20] LABS: Anisocytosis Slight; HCT 26.3 % (34.0-46.0); HGB 8.5 gm/dL (11.4-16.0); Hypochromasia Moderate; MCH 32.3 pg (25.0-35.0); MCHC 32.4 g/dL (31.0-37.0); Macrocytosis Moderate; Mean Platelet Volume 11.1; Platelet Count 151 k/uL (150-450); Poikilocytosis Slight; RBC 2.64 m/uL (3.80-5.40); RDW 19.9 % (11.5-15.5); WBC 3.1 k/uL (3.8-10.6)
--- NOTE | 2022-02-23 12:21 | XR ---
EXAMINATION TYPE: XR KUB DATE OF EXAM: 02/23/2022 COMPARISON: 08/23/2016 HISTORY: Pain TECHNIQUE: One view abdominal series FINDINGS: The osseous structures are intact. The bowel gas pattern is nonspecific. Hypertrophic and degenerati ve changes spine with arthropathy of the hips. Surgical clips are seen overlying the soft tissues of the groin region. Vascular calcifications are seen. 8 mm calcification station stable from prior exam and therefore likely on the basis of vascular phlebolith. Epicardial lead and postsurgical changes involving the mediastinum. 6 mm calcification right upper qu adrant could be related to the gallbladder or right kidney. Right basilar atelectasis favored over in filtrate. IMPRESSION: 1. Nonspecific abdomen with multiple prominent small bowel loops. Correlate for an ileus or enteritis area of partial obstruction not entirely excluded. 2. Right upper quadrant calcification could be associated with a gallstone or some possibly small magdalena al stone.
[2022-02-23 12:24] LABS: Albumin 4.2 g/dL (3.5-5.0); Calcium 8.5 mg/dL (8.4-10.2); Total Protein 7.5 g/dL (6.3-8.2)
[2022-02-23 12:28] LABS: MCV 99.4 fL (80.0-100.0)
[2022-02-23 12:47] LABS: Lymphocytes # (M) 0.99 k/uL (1.0-4.8); Monocytes # (M) 0.31 k/uL (0-1.0); Neutrophils % (M) 58 %; Nucleated Red Blood Cells 0 /100 WBC (0-0); Total Cells Counted 100
[2022-02-23 12:49] LABS: Tear Drop Cells Present
[2022-02-23 12:54] LABS: Potassium 4.6 mmol/L (3.5-5.1)
[2022-02-23 14:21] LABS: Appearance,Urine Cloudy (Clear); Bacteria,Urine Rare /hpf; Bilirubin,Urine Negative (Negative); Blood,Urine Trace (Negative); Color,Urine Yellow; Glucose,Urine (UA) Negative (Negative); Hyaline Casts,Urine 3 /lpf (0-2); Ketones,Urine Negative (Negative); Leukocyte Esterase,Urine Small (Negative); Mucus,Urine Occasional /hpf; Nitrite,Urine Negative (Negative); PH, Urine 5.5 (5.0-8.0); Protein,Urine 1+ (Negative); RBC,Urine 35 /hpf (0-5); Specific Gravity,Urine 1.015 (1.001-1.035); Squamous Epithelial Cell,Urine 2 /hpf (0-4); Urobilinogen,Urine <2.0 mg/dL (<2.0); WBC,Urine 21 /hpf (0-5)
[2022-02-23] MEDS ORDERED: NALOXONE 0.4 MG/ML 1 ML VIAL IV PRN (15:05)
--- NOTE | 2022-02-23 15:12 | ED ---
Medical Decision Making - Lab Data Result diagrams: 02/23/22 11:55 02/23/22 11:55 Lab Results 02/23/22 02/23/22 02/23/22 Range/Units 11:55 11:55 11:55 WBC 3.1 L (3.8-10.6) k/uL RBC 2.64 L (3.80-5.40) m/uL Hgb 8.5 L (11.4-16.0) gm/dL Hct 26.3 L (34.0-46.0) % MCV 99.4 D (80.0-100.0) fL MCH 32.3 (25.0-35.0) pg MCHC 32.4 (31.0-37.0) g/dL RDW 19.9 H (11.5-15.5) % Plt Count 151 (150-450) k/uL MPV 11.1 Neutrophils % (Manual) 58 % Lymphocytes % (Manual) 32 % Monocytes % (Manual) 10 % Neutrophils # (Manual) 1.80 (1.3-7.7) k/uL Lymphocytes # (Manual) 0.99 L (1.0-4.8) k/uL Monocytes # (Manual) 0.31 (0-1.0) k/uL Nucleated RBCs 0 (0-0) /100 WBC Hypochromasia Moderate Poikilocytosis Slight Anisocytosis Slight Macrocytosis Moderate Tear Drop Cells Present Sodium 139 (137-145) mmol/L Potassium 4.6 (3.5-5.1) mmol/L Chloride 110 H (98-107) mmol/L Carbon Dioxide 18 L (22-30) mmol/L Anion Gap 11 mmol/L BUN 44 H (7-17) mg/dL Creatinine 1.81 H (0.52-1.04) mg/dL Est GFR (CKD-EPI)AfAm 30 (>60 ml/min/1.73 sqM) Est GFR (CKD-EPI)NonAf 26 (>60 ml/min/1.73 sqM) Glucose 85 (74-99) mg/dL Plasma Lactic Acid Roderick 0.7 (0.7-2.0) mmol/L Calcium 8.5 (8.4-10.2) mg/dL Total Bilirubin 1.0 (0.2-1.3) mg/dL AST 33 (14-36) U/L ALT 7 (4-34) U/L Alkaline Phosphatase 79 (38-126) U/L Creatine Kinase 134 (30-135) U/L Total Protein 7.5 (6.3-8.2) g/dL Albumin 4.2 (3.5-5.0) g/dL Lipase 99 (23-300) U/L Urine Color Urine Appearance (Clear) Urine pH (5.0-8.0) Ur Specific [place] (1.001-1.035) Urine Protein (Negative) Urine Glucose (UA) (Negative) Urine Ketones (Negative) Urine Blood (Negative) Urine Nitrite (Negative) Urine Bilirubin (Negative) Urine Urobilinogen (<2.0) mg/dL Ur Leukocyte Esterase (Negative) Urine RBC (0-5) /hpf Urine WBC (0-5) /hpf Ur Squamous Epith Cells (0-4) /hpf Urine Bacteria (None) /hpf Hyaline Casts (0-2) /lpf Urine Mucus (None) /hpf 02/23/ Range/Units 12:39 WBC (3.8-10.6) k/uL RBC (3.80-5.40) m/uL Hgb (11.4-16.0) gm/dL Hct (34.0-46.0) % MCV (80.0-100.0) fL MCH (25.0-35.0) pg MCHC (31.0-37.0) g/dL RDW (11.5-15.5) % Plt Count (150-450) k/uL MPV Neutrophils % (Manual) % Lymphocytes % (Manual) % Monocytes % (Manual) % Neutrophils # (Manual) (1.3-7.7) k/uL Lymphocytes # (Manual) (1.0-4.8) k/uL Monocytes # (Manual) (0-1.0) k/uL Nucleated RBCs (0-0) /100 WBC Hypochromasia Poikilocytosis Anisocytosis Macrocytosis Tear Drop Cells Sodium (137-145) mmol/L Potassium (3.5-5.1) mmol/L Chloride (98-107) mmol/L Carbon Dioxide (22-30) mmol/L Anion Gap mmol/L BUN (7-17) mg/dL Creatinine (0.52-1.04) mg/dL Est GFR (CKD-EPI)AfAm (>60 ml/min/1.73 sqM) Est GFR (CKD-EPI)NonAf (>60 ml/min/1.73 sqM) Glucose (74-99) mg/dL Plasma Lactic Acid Roderick (0.7-2.0) mmol/L Calcium (8.4-10.2) mg/dL Total Bilirubin (0.2-1.3) mg/dL AST (14-36) U/L ALT (4-34) U/L Alkaline Phosphatase (38-126) U/L Creatine Kinase (30-135) U/L Total Protein (6.3-8.2) g/dL Albumin (3.5-5.0) g/dL Lipase (23-300) U/L Urine Color Yellow Urine Appearance Cloudy H (Clear) Urine pH 5.5 (5.0-8.0) Ur Specific [place] 1.015 (1.001-1.035) Urine Protein 1+ H (Negative) Urine Glucose (UA) Negative (Negative) Urine Ketones Negative (Negative) Urine Blood Trace H (Negative) Urine Nitrite Negative (Negative) Urine Bilirubin Negative (Negative) Urine Urobilinogen <2.0 (<2.0) mg/dL Ur Leukocyte Esterase Small H (Negative) Urine RBC 35 H (0-5) /hpf Urine WBC 21 H (0-5) /hpf Ur Squamous Epith Cells 2 (0-4) /hpf Urine Bacteria Rare H (None) /hpf Hyaline Casts 3 H (0-2) /lpf Urine Mucus Occasional H (None) /hpf Disposition Clinical Impression: Acute urinary retention, Oliguria, Hematuria, Dehydration, Weakness, Failure to thrive, Ileus Disposition: ADMITTED IP TO THIS [facility] Condition: Stable Referrals: Benson Boswell MD [Primary Care Provider] - 1-2 days
--- NOTE | 2022-02-23 16:30 | P.HPIM ---
History of Present Illness H&P Date: 02/23/22 History of Presenting Illness: Patient is a very pleasant 81-year-old female with a past medical history of CAD status post CABG, atrial fibrillation on anticoagulation with Eliquis, diastolic CHF, COPD, HTN, HLD, CKD IIIb, type II diabetes mellitus,iand Parkinson's disease. She presented to the ED with a chief complaint of generalized weakness, dysuria, decreased urine output and lower back pain. She reports this has been ongoing for the past 2 day's and progressively worsened. Patient reports she is so weak she is unable to even walk with her walker. She reports ongoing bilateral lower extremity edema over the past few months in which she takes Lasix for treatment at home. She states that she has had a lot of improvement in this swelling . Patient denies having any fevers, chills, diaphoresis, dizziness, lightheadedness, chest pain, palpitations, shortness of breath, abdominal pain, nausea, vomiting, or experiencing any numbness or tingling in her extremities. Pt reports she lives at home alone and has a home care nurse from [facility] services that visits her often. She states she was too weak to care for herself at home and knew something was going on with her urine so she called for EMS to bring her to the hospital. Patient underwent full evaluation in the emergency department. Vital signs evaluated and were stable. Urinalysis was concerning for UTI and BMP revealed an acute kidney injury with BUN 44, creatinine 1.81 and GFR of 26 with baseline creatinine of 1.CBC revealing leukopenia with WBC count of 3.1and normocytic anemia with hemoglobin of 8.5 both at baseline levels. Patient admitted under our services with consult to PT/OT. Review of systems: Pertinent positives and negatives as discussed in HPI, a complete review of systems was performed and all other systems are negative. Physical exam: Vital signs reviewed and stable. General: Nontoxic, no distress and appears stated age. Derm: Skin warm and dry, normal coloration for ethnicity. Head: Atraumatic, normocephalic and symmetric. Eyes: EOMs intact, no lid lag, and anicteric sclera Mouth: no lip lesions, mucus membranes moist Cardiovascular: regular rate and rhythm with normal S1S2, systolic murmur, positive posterior tibial pulses bilaterally, and cap refill < 2 seconds. Lungs: Respirations even, regular, and unlabored on room air. Lungs CTA bilaterally, no rhonchi, no rales, no wheezing, and no accessory muscle usage. Abdominal: soft, nontender to palpation, no guarding, no appreciable organomegaly Ext: ROM intact. No gross muscle atrophy, 1+ BLE edema, no contractures Neuro: Speech clear, face symmetrical and CN II-XII grossly intact with no noted focal neuro deficits Psych: Alert and oriented to person, place, time, and situation. Appropriate and pleasant affect. Assessment and Plan of Care: Acute kidney injury on chronic kidney disease stage IIIB Dehydration -Hold nephrotoxic medications such as Lasix. -Urinalysis positive for infection, will treat underlying infection with Rocephin pending urine culture results. -bladder scan to monitor for postvoid residual. -Acute kidney injury is believed to be secondary to dehydration as patient appears very dry. Patient being provided with IV fluid hydration and we will continue to monitor renal function closely with repeat a.m. labs. -If no improvement in renal function with IV fluid hydration will order renal ultrasound for further evaluation. UTI Urinary retention -IV antibiotic Rocephin pending urine culture results. -Bladder management. CAD status post CABG, Atrial fibrillation on anticoagulation with Eliquis, Chronic Diastolic CHF with previously known EF of 55-60% Hypertension Hyperlipidemia -Monitor vital signs and continue daily medication regimen with aspirin, Eliqu is, atorvastatin, Zetia, and hydralazine. -Lasix held at this time as concerns for dehydration. Type II [id number]-[id number] diabetes mellitus -hold Januvia and place patient on glycemic protocol with NovoLog sliding scale. Parkinson's disease -Continue daily medication regimen with carbidopa levodopa CODE STATUS: Full Code DVT prophylaxis: Eliquis Discussed with: Patient Anticipated discharge date: 1-[address]: Home with homecare A total of 46 minutes was spent on the care of this complex patient more than 50% of the time was spent in counseling and care coordination. Past Medical History Past Medical History: Atrial Fibrillation, Atrial Flutter, Coronary Artery Disease (CAD), Heart Failure, COPD, Diabetes Mellitus, GERD/Reflux, Hyperlipidemia, Hypertension, Myocardial Infarction ([place]), Musculoskeletal Dis order, Renal Disease, Respiratory Disorder, Sleep Apnea/CPAP/BIPAP, Vascular Disorder Additional Past Medical History / Comment(s): NIDDM type II, neuropathy bilateral legs/feet, CKD stage III, nephrolithiasis, anemia, diastolic CHF, cardiac valve disease, pulmonary htn, home oxygen prn, afib/flutter with RVR, pt states she fell one year ago and suffered 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 Last Myocardial Infarction Date:: 1999 History of Any Multi-Drug Resistant Organisms: VRE Date of last positivie culture/infection: 11/06/21 MDRO Source:: Urine Past Surgical History: Appendectomy, Coronary Bypass/CABG, Heart Catheterization, Hysterectomy, Tonsillectomy Additional Past Surgical History / Comment(s): 1999 CABG 4 vessel, BETHEL/cardioversion, abdominal aortagrams/bilateral runoffs, R atherectomy/PTBA/stent to R SFA, R neck benign lymph node removed, cysto/lithotripsy/aborted d/t unable to visualize stone, EGD, colonoscopy Past Anesthesia/Blood Transfusion Reactions: Motion Sickness Additional Past Anesthesia/Blood Transfusion Reaction / Comment(s): Pt has motion sickness/clausterphobia. Past Psychological History: No Psychological Hx Reported Smoking Status: Former smoker Past Alcohol Use History: None Reported Past Drug Use History: None Reported - Past Family History Brother(s) Family Medical History: Cancer Son(s) Family Medical History: Cancer, Myocardial Infarction ([place]) Sister(s) Family Medical History: Cancer Mother Family Medical History: COPD, Myocardial Infarction ([place]) Additional Family Medical History / Comment(s): mother of [place]-pt cannot recall at what age. Medications and Allergies Home Medications Medication Instructions Recorded Confirmed Type Ezetimibe [Zetia] 10 mg PO DAILY 11/20/13 02/23/22 History Lovastatin [Mevacor] 10 mg PO DAILY 11/20/13 02/23/22 History Apixaban [Eliquis] 2.5 mg PO BID 02/17/20 02/23/22 History Cyanocobalamin [Vitamin B-12] 500 mcg PO DAILY 02/17/20 02/23/22 History Ferrous Sulfate [Iron (65 MG 325 mg PO DAILY 02/05/21 02/23/22 History Elemental)] Aspirin EC [Ecotrin Low Dose] 81 mg PO DAILY 07/19/21 02/23/22 History Colchicine [Mitigare] 0.6 mg PO BID 07/19/21 02/23/22 History sitaGLIPtin [Januvia] 50 mg PO DAILY 07/19/21 02/23/22 History Folic Acid 1 mg PO DAILY 10/22/21 02/23/22 History Acetaminophen Tab [Tylenol] 650 mg PO Q4HR PRN 11/25/21 02/23/22 History hydrALAZINE HCL [Apresoline] 25 mg PO TID 11/25/21 02/23/22 History Carbidopa-Levodopa 25-100 mg 1 tab PO TID 12/09/21 02/23/22 History [Sinemet 25-100] Shen/D3/Mag11/Zinc/Occupational Health Rn/[place]/Bor 1 tab PO DAILY 02/23/22 02/23/22 History [Caltrate 600+D Plus Tablet] Furosemide [Lasix] 20 mg PO DAILY 02/23/22 02/23/22 History Gabapentin [Neurontin] 100 mg PO QID 02/23/22 02/23/22 History Allergies Allergy/AdvReac Type Severity Reaction Status Date / Time tuberculin, purified protein Allergy Per [place] Verified 02/23/22 11:46 deriva albuterol [From DuoNeb] AdvReac Nausea Verified 02/23/22 11:46 cortisone AdvReac PAIN Verified 02/23/22 11:46 hydrocodone AdvReac Nausea Verified 02/23/22 11:46 ipratropium [From DuoNeb] AdvReac Nausea Verified 02/23/22 11:46 procaine HCl [From Novocain] AdvReac pain Verified 02/23/22 11:46 allergy medicines AdvReac "dries me Uncoded 02/23/22 11:46 out, bloody noses,generalized pain" Physical Exam Osteopathic Statement: *. No significant issues noted on an osteopathic structural exam other than those noted in the History and Physical/Consult. Vitals: Vital Signs Temp Pulse Resp BP Pulse Ox 02/23/22 11:31 98.1 F 55 L 16 140/62 95 Intake and Output 02/23/22 02/23/22 02/23/22 06:59 14:59 22:59 Other: Weight 72.575 kg Results CBC & Chem 7: 02/23/22 11:55 02/23/22 11:55 Labs: Abnormal Lab Results - Last 24 Hours (Table) 02/23/22 02/23/22 02/23/22 Range/Units 11:55 11:55 12:39 WBC 3.1 L (3.8-10.6) k/uL RBC 2.64 L (3.80-5.40) m/uL Hgb 8.5 L (11.4-16.0) gm/dL Hct 26.3 L (34.0-46.0) % RDW 19.9 H (11.5-15.5) % Lymphocytes # (Manual) 0.99 L (1.0-4.8) k/uL Chloride 110 H (98-107) mmol/L Carbon Dioxide 18 L (22-30) mmol/L BUN 44 H (7-17) mg/dL Creatinine 1.81 H (0.52-1.04) mg/dL Urine Appearance Cloudy H (Clear) Urine Protein 1+ H (Negative) Urine Blood Trace H (Negative) Ur Leukocyte Esterase Small H (Negative) Urine RBC 35 H (0-5) /hpf Urine WBC 21 H (0-5) /hpf Urine Bacteria Rare H (None) /hpf Hyaline Casts 3 H (0-2) /lpf Urine Mucus Occasional H (None) /hpf Assessment and Plan Assessment: Attending note Rl Woodward NP rendered care for this patient independently, reviewed the findings and plan as documented in the note above. I did not physically speak with our examined the patient on this date.
[2022-02-23] MEDS: SODIUM CHLORIDE 0.9% 1,000 ML IV SCH ×3 (16:47→23:15)
[2022-02-23] MEDS: CARBIDOPA-LEVODOPA 25-100 MG 1 EACH TAB PO SCH ×2 (16:59→23:35)
[2022-02-23] MEDS: hydrALAZINE HCL 25 MG TAB PO SCH ×2 (16:59→23:36)
[2022-02-23] MEDS ORDERED: DEXTROSE 50% SYRINGE 50 ML IVP PRN ×2 (17:25)
[2022-02-23 21:28] LABS: Glucose,Whole Blood 102 mg/dL (70-110)
[2022-02-23] MEDS: INSULIN ASPART (NovoLOG) 100 UNIT/ML VIAL SQ SCH ×2 (23:15→23:16)
[2022-02-23] MEDS: COLCHICINE 0.6 MG EACH PO SCH (23:28)
[2022-02-23] MEDS: APIXABAN 2.5 MG TABLET PO SCH (23:35)
[2022-02-23] MEDS: ACETAMINOPHEN TAB 325 MG TAB PO PRN (23:35)
[2022-02-23] MEDS: GABAPENTIN 100 MG CAP PO SCH ×2 (23:36)
[2022-02-24] MEDS: SODIUM CHLORIDE 0.9% 1,000 ML IV SCH ×3 (06:47→16:33)
[2022-02-24 07:11] LABS: Glucose,Whole Blood 97 mg/dL (70-110)
[2022-02-24] MEDS: ASPIRIN 81 MG PO SCH (07:49)
[2022-02-24] MEDS: CALCIUM CARB-VIT D 500 MG-5 MCG TAB PO SCH (07:49)
[2022-02-24] MEDS: ATORVASTATIN 10 MG TAB PO SCH (07:49)
[2022-02-24] MEDS: FERROUS SULFATE 325 MG TAB PO SCH (07:49)
[2022-02-24] MEDS: CYANOCOBALAMIN 500 MCG TAB PO SCH ×2 (07:49→07:50)
[2022-02-24] MEDS: GABAPENTIN 100 MG CAP PO SCH ×4 (07:50→21:45)
[2022-02-24] MEDS: FOLIC ACID 1 MG TAB PO SCH (07:50)
[2022-02-24] MEDS: EZETIMIBE 10 MG TAB PO SCH (07:50)
[2022-02-24] MEDS: hydrALAZINE HCL 25 MG TAB PO SCH ×3 (07:50→21:46)
[2022-02-24] MEDS: APIXABAN 2.5 MG TABLET PO SCH ×2 (07:50→21:45)
[2022-02-24] MEDS: CARBIDOPA-LEVODOPA 25-100 MG 1 EACH TAB PO SCH ×3 (07:51→21:45)
[2022-02-24] MEDS: COLCHICINE 0.6 MG EACH PO SCH ×2 (07:51→21:45)
[2022-02-24] MEDS ORDERED: LINAGLIPTIN 5 MG TABLET PO SCH (09:00)
[2022-02-24] MEDS ORDERED: FUROSEMIDE 20 MG TAB PO SCH (09:00)
[2022-02-24] MEDS: INSULIN ASPART (NovoLOG) 100 UNIT/ML VIAL SQ SCH ×4 (10:35→20:15)
[2022-02-24 11:09] LABS: Glucose,Whole Blood 123 mg/dL (70-110)
[2022-02-24 12:33] LABS: African American GFR (CKD) 37 (>60 ml/min/1.73 sqM); Anion Gap 8 mmol/L; Blood Urea Nitrogen 38 mg/dL (7-17); Calcium 8.5 mg/dL (8.4-10.2); Carbon Dioxide 16 mmol/L (22-30); Chloride 114 mmol/L (98-107); Glucose 108 mg/dL (74-99); Non-African American GFR(CKD) 32 (>60 ml/min/1.73 sqM); Potassium 4.1 mmol/L (3.5-5.1); Sodium 138 mmol/L (137-145)
[2022-02-24 13:28] LABS: Anisocytosis Slight; HCT 27.9 % (34.0-46.0); HGB 9.1 gm/dL (11.4-16.0); Hypochromasia Moderate; MCH 32.6 pg (25.0-35.0); MCHC 32.7 g/dL (31.0-37.0); MCV 99.8 fL (80.0-100.0); Macrocytosis Slight; Mean Platelet Volume 10.4; Platelet Count 106 k/uL (150-450); Poikilocytosis Slight; RBC 2.79 m/uL (3.80-5.40); RDW 19.2 % (11.5-15.5); WBC 3.2 k/uL (3.8-10.6)
--- NOTE | 2022-02-24 17:03 | P.PN ---
Subjective Progress Note Date: 02/24/22 Hospital course: Patient is a very pleasant 81-year-old female with a past medical history of CAD status post CABG, atrial fibrillation on anticoagulation with Eliquis, diastolic CHF, COPD, HTN, HLD, CKD IIIb, type II diabetes mellitus,iand Parkinson's disease. She presented to the ED with a chief complaint of generalized weakness, dysuria, decreased urine output and lower back pain. She reports this has been ongoing for the past 2 day's and progressively worsened. Patient reports she is so weak she is unable to even walk with her walker. She reports ongoing bilateral lower extremity edema over the past few months in which she takes Lasix for treatment at home. She states that she has had a lot of improvement in this swelling . Patient denies having any fevers, chills, di aphoresis, dizziness, lightheadedness, chest pain, palpitations, shortness of breath, abdominal pain, nausea, vomiting, or experiencing any numbness or tingling in her extremities. Pt reports she lives at home alone and has a home care nurse from [facility] services that visits her often. She states she was too weak to care for herself at home and knew something was going on with her urine so she called for EMS to bring her to the hospital. Patient underwent full evaluation in the emergency department. Vital signs evaluated and were stable. Urinalysis was concerning for UTI and BMP revealed an acute kidney injury with BUN 44, creatinine 1.81 and GFR of 26 with baseline creatinine of 1 .CBC revealing leukopenia with WBC count of 3.1and normocytic anemia with hemoglobin of 8.5 both at baseline levels. Patient admitted under our services with consult to PT/OT. Physical exam: Patient seen and fully evaluated at bedside this morning. Patient's condition stable. Renal function improving with BUN 38, creatinine 1.51, and GFR of 32. We will continue with gentle IV fluid hydration at this time for an additional 24 hours. Patient reports she has been urinating well and states feeling much better. She remains on IV antibiotic Rocephin pending culture and sensitivity reports. Vital signs reviewed and stable. General: Nontoxic, no distress and appears stated age. Derm: Skin warm and dry, normal coloration for ethnicity. Head: Atraumatic, normocephalic and symmetric. Eyes: EOMs intact, no lid lag, and anicteric sclera Mouth: no lip lesions, mucus membranes moist Cardiovascular: regular rate and rhythm with normal S1S2, systolic murmur, positive posterior tibial pulses bilaterally, and cap refill < 2 seconds. Lungs: Respirations even, regular, and unlabored on room air. Lungs CTA bilaterally, no rhonchi, no rales, no wheezing, and no accessory muscle usage. Abdominal: soft, nontender to palpation, no guarding, no appreciable organomegaly Ext: ROM intact. No gross muscle atrophy, 1+ BLE edema, no contractures Neuro: Speech clear, face symmetrical and CN II-XII grossly intact with no noted focal neuro deficits Psych: Alert and oriented to person, place, time, and situation. Appropriate and pleasant affect. Assessment and Plan of Care: Acute kidney injury on chronic kidney disease stage IIIB, improving Dehydration -Hold nephrotoxic medications including Lasix. -Urinalysis positive for infection, will treat underlying infection with Rocephin pending urine culture results. -bladder scan to monitor for postvoid residual. -Acute kidney injury is believed to be secondary to dehydration as patient appears very dry. Patient being provided with IV fluid hydration and we will continue to monitor renal function closely with repeat a.m. labs. -If no improvement in renal function with IV fluid hydration will order renal ultrasound for further evaluation. UTI Urinary retention -IV antibiotic Rocephin pending urine culture results. -Bladder management. CAD status post CABG, Atrial fibrillation on anticoagulation with Eliquis, Chronic Diastolic CHF with previously known EF of 55-60% Hypertension Hyperlipidemia -Monitor vital signs and continue daily medication regimen with aspirin, Eliquis, atorvastatin, Zetia, and hydralazine. -Lasix held at this time as concerns for dehydration. Type II cyo-fzlttjj-avcieibqk diabetes mellitus -Hold Januvia and place patient on glycemic protocol with NovoLog sliding scale. Parkinson's disease -Continue daily medication regimen with carbidopa levodopa CODE STATUS: Full Code DVT prophylaxis: Eliquis Discussed with: Patient Anticipated discharge date: 1-[address]: Home with homecare A total of 46 minutes was spent on the care of this complex patient more than 50% of the time was spent in counseling and care coordination. Rl Woodward NP rendered care for this patient independently, reviewed the findings and plan as documented in the note above. I did not physically speak with or examine the patient on this date. Objective - Vital Signs Vital signs: Vital Signs Temp 98.1 F 02/24/22 02:00 Pulse 61 02/24/22 07:47 Resp 16 02/24/22 07:47 BP 124/56 02/24/22 07:47 Pulse Ox 95 02/24/22 07:47 FiO2 Intake & Output 02/23/22 02/24/22 02/24/22 18:59 06:59 18:59 Weight 72.575 kg 72.575 kg Other: # Voids 2 - Labs CBC & Chem 7: 02/27/22 08:39 02/27/22 08:39 Labs: Abnormal Lab Results - Last 24 Hours (Table) 02/23/22 02/23/22 02/23/22 Range/Units 11:55 11:55 12:39 WBC 3.1 L (3.8-10.6) k/uL RBC 2.64 L (3.80-5.40) m/uL Hgb 8.5 L (11.4-16.0) gm/dL Hct 26.3 L (34.0-46.0) % RDW 19.9 H (11.5-15.5) % Lymphocytes # (Manual) 0.99 L (1.0-4.8) k/uL Chloride 110 H (98-107) mmol/L Carbon Dioxide 18 L (22-30) mmol/L BUN 44 H (7-17) mg/dL Creatinine 1.81 H (0.52-1.04) mg/dL Urine Appearance Cloudy H (Clear) Urine Protein 1+ H (Negative) Urine Blood Trace H (Negative) Ur Leukocyte Esterase Small H (Negative) Urine RBC 35 H (0-5) /hpf Urine WBC 21 H (0-5) /hpf Urine Bacteria Rare H (None) /hpf Hyaline Casts 3 H (0-2) /lpf Urine Mucus Occasional H (None) /hpf Microbiology - Last 24 Hours (Table) 02/23/22 12:39 Urine Culture - Preliminary Urine,Catheterized
[2022-02-24 17:14] LABS: Glucose,Whole Blood 91 mg/dL (70-110)
[2022-02-24 20:16] LABS: Glucose,Whole Blood 101 mg/dL (70-110)
[2022-02-24] MEDS: ACETAMINOPHEN TAB 325 MG TAB PO PRN (23:33)
[2022-02-25] MEDS: SODIUM CHLORIDE 0.9% 1,000 ML IV SCH ×2 (06:18→13:22)
[2022-02-25 07:08] LABS: Glucose,Whole Blood 88 mg/dL (70-110)
[2022-02-25] MEDS: INSULIN ASPART (NovoLOG) 100 UNIT/ML VIAL SQ SCH ×4 (08:59→21:39)
[2022-02-25] MEDS: EZETIMIBE 10 MG TAB PO SCH (09:16)
[2022-02-25] MEDS: CARBIDOPA-LEVODOPA 25-100 MG 1 EACH TAB PO SCH ×3 (09:16→21:39)
[2022-02-25] MEDS: CYANOCOBALAMIN 500 MCG TAB PO SCH (09:16)
[2022-02-25] MEDS: FOLIC ACID 1 MG TAB PO SCH (09:16)
[2022-02-25] MEDS: GABAPENTIN 100 MG CAP PO SCH ×4 (09:16→21:39)
[2022-02-25] MEDS: CALCIUM CARB-VIT D 500 MG-5 MCG TAB PO SCH (09:17)
[2022-02-25] MEDS: ATORVASTATIN 10 MG TAB PO SCH (09:17)
[2022-02-25] MEDS: APIXABAN 2.5 MG TABLET PO SCH ×2 (09:17→21:39)
[2022-02-25] MEDS: COLCHICINE 0.6 MG EACH PO SCH ×2 (09:17→21:39)
[2022-02-25] MEDS: ASPIRIN 81 MG PO SCH (09:17)
[2022-02-25] MEDS: FERROUS SULFATE 325 MG TAB PO SCH (09:17)
[2022-02-25] MEDS: hydrALAZINE HCL 25 MG TAB PO SCH ×3 (09:17→21:40)
[2022-02-25] MEDS: ACETAMINOPHEN TAB 325 MG TAB PO PRN ×2 (09:22→17:25)
[2022-02-25 10:39] LABS: HCT 24.5 % (37.2-46.3); HGB 7.3 g/dL (12.0-15.0); MCH 31.3 pg (27.0-32.0); MCHC 29.8 g/dL (32.0-37.0); MCV 105.2 fL (80.0-97.0); Mean Platelet Volume 11.6 fL (9.5-12.2); NRBC Per 100 WBC 0 /100 WBCS (0.0-0.0); Platelet Count 110 X 10*3/uL (140-440); RBC 2.33 X 10*6/uL (4.10-5.20); RDW 19.7 % (11.5-14.5); WBC 2.81 X 10*3/uL (4.50-10.00)
[2022-02-25 11:08] LABS: Glucose,Whole Blood 93 mg/dL (70-110)
[2022-02-25 12:17] LABS: African American GFR (CKD) 40.5 (60.0-200.0); Albumin 3.3 g/dL (3.8-4.9); Albumin/Globulin Ratio 1.32 (1.60-3.17); Anion Gap 9.9 mmol/L (10.00-18.00); BUN/Creat Ratio 22.21 Ratio (12.00-20.00); Blood Urea Nitrogen 31.1 mg/dL (9.0-27.0); Calcium 8.4 mg/dL (8.7-10.3); Carbon Dioxide 18.1 mmol/L (20.0-27.5); Globulin 2.5 g/dL (1.6-3.3); Non-African American GFR(CKD) 34.9 (60.0-200.0); Potassium 3.9 mmol/L (3.5-5.5); Total Bilirubin 0.2 mg/dL (0.30-1.20); Total Protein 5.8 g/dL (6.2-8.2)
--- NOTE | 2022-02-25 16:05 | P.PN ---
Subjective Progress Note Date: 02/25/22 Hospital course: Patient is a very pleasant 81-year-old female with a past medical history of CAD status post CABG, atrial fibrillation on anticoagulation with Eliquis, diastolic CHF, COPD, HTN, HLD, CKD IIIb, type II diabetes mellitus,iand Parkinson's disease. She presented to the ED with a chief complaint of generalized weakness, dysuria, decreased urine output and lower back pain. She reports this has been ongoing for the past 2 day's and progressively worsened. Patient reports she is so weak she is unable to even walk with her walker. She reports ongoing bilateral lower extremity edema over the past few months in which she takes Lasix for treatment at home. She states that she has had a lot of improvement in this swelling . Patient denies having any fevers, chills, di aphoresis, dizziness, lightheadedness, chest pain, palpitations, shortness of breath, abdominal pain, nausea, vomiting, or experiencing any numbness or tingling in her extremities. Pt reports she lives at home alone and has a home care nurse from [facility] services that visits her often. She states she was too weak to care for herself at home and knew something was going on with her urine so she called for EMS to bring her to the hospital. Patient underwent full evaluation in the emergency department. Vital signs evaluated and were stable. Urinalysis was concerning for UTI and BMP revealed an acute kidney injury with BUN 44, creatinine 1.81 and GFR of 26 with baseline creatinine of 1 .CBC revealing leukopenia with WBC count of 3.1and normocytic anemia with hemoglobin of 8.5 both at baseline levels. Patient admitted under our services with consult to PT/OT. Physical exam: Patient seen and fully evaluated at bedside this morning. Patient's condition stable. Acute kidney injury has resolved. Patient is medically stable for discharge at this time. However patient continues to have significant weakness and PT/OT stating patient is very limited secondary to weakness and poor endurance requiring total assist from sitting to standing and moderate assist with ambulating with use of rolling walker. Case management has arranged for patient to be transferred to [facility] for rehab upon discharge. Medically patient is stable for discharge at this time, was informed patient will require insurance authorization and pending their approval patient is medically stable for discharge. Vital signs reviewed and stable. General: Nontoxic, no distress and appears stated age. Derm: Skin warm and dry, normal coloration for ethnicity. Head: Atraumatic, normocephalic and symmetric. Eyes: EOMs intact, no lid lag, and anicteric sclera Mouth: no lip lesions, mucus membranes moist Cardiovascular: regular rate and rhythm with normal S1S2, systolic murmur, positive posterior tibial pulses bilaterally, and cap refill < 2 seconds. Lungs: Respirations even, regular, and unlabored on room air. Lungs CTA bilaterally, no rhonchi, no rales, no wheezing, and no accessory muscle usage. Abdominal: soft, nontender to palpation, no guarding, no appreciable organomegaly Ext: ROM intact. No gross muscle atrophy, 1+ BLE edema, no contractures Neuro: Speech clear, face symmetrical and CN II-XII grossly intact with no noted focal neuro deficits Psych: Alert and oriented to person, place, time, and situation. Appropriate and pleasant affect. Assessment and Plan of Care: Generalized weakness with inability to independently carry out activities of daily living -PT/OT stating patient is very limited secondary to weakness and poor endurance requiring total assist from sitting to standing and moderate assist with ambulating with use of rolling walker. -Case management has arranged for patient to be transferred to [facility] for rehab upon discharge. -Fall precautions Acute kidney injury on chronic kidney disease stage IIIB, resolved with IV fluid hydration and holding of Lasix. Dehydration, resolved after IV fluid hydration. UTI, completed 3 day course of antibiotic treatment with Rocephin. Urine culture then resulting negative. Urinary retention, resolved -Bladder management. CAD status post CABG, Atrial fibrillation on anticoagulation with Eliquis, Chronic Diastolic CHF with previously known EF of 55-60% Hypertension Hyperlipidemia -Monitor vital signs and continue daily medication regimen with aspirin, Eliquis, atorvastatin, Zetia, and hydralazine. -Lasix held.. Type II trm-fhztpvn-cmcuqlvst diabetes mellitus -Hold Januvia and place patient on glycemic protocol with NovoLog sliding scale. Parkinson's disease -Continue daily medication regimen with carbidopa levodopa CODE STATUS: Full Code DVT prophylaxis: Eliquis Discussed with: Patient , long term care social worker, and RN Anticipated discharge date: Patient is medically clear for discharge at this time. Instructed by social work pending insurance authorization discharged to [facility] Anticipated discharge place: [facility] A total of 32 minutes was spent on the care of this complex patient more than 50% of the time was spent in counseling and care coordination. Objective - Vital Signs Vital signs: Vital Signs Temp 97.7 F 02/25/22 11:07 Pulse 57 L 02/25/22 11:07 Resp 18 02/25/22 11:07 BP 130/86 02/25/22 11:07 Pulse Ox 95 02/25/22 11:07 FiO2 Intake & Output 02/24/22 02/25/22 02/25/22 18:59 06:59 18:59 Intake Total 1900 Balance 1900 Intake: Intake, IV Titration 1400 Amount Sodium Chloride 0.9% 1, 1400 000 ml @ 130 mls/hr IV . [id number] [facility] Rx#:[id number] Oral 500 Other: Voiding Method Toilet Toilet # Voids 1 4 1 # Bowel Movements 1 1 - Labs CBC & Chem 7: 02/25/22 07:10 02/25/22 07:10 Labs: Abnormal Lab Results - Last 24 Hours (Table) 02/25/22 02/25/22 Range/Units 07:10 07:10 WBC 2.81 L (4.50-10.00) X 10*3/uL RBC 2.33 L (4.10-5.20) X 10*6/uL Hgb 7.3 L (12.0-15.0) g/dL Hct 24.5 L (37.2-46.3) % MCV 105.2 H (80.0-97.0) fL MCHC 29.8 L (32.0-37.0) g/dL RDW 19.7 H (11.5-14.5) % Plt Count 110 L (140-440) X 10*3/uL Chloride 111 H (96-109) mmol/L Carbon Dioxide 18.1 L (20.0-27.5) mmol/L Anion Gap 9.90 L (10.00-18.00) mmol/L BUN 31.1 H (9.0-27.0) mg/dL Est GFR (CKD-EPI)AfAm 40.5 L (60.0-200.0) Est GFR (CKD-EPI)NonAf 34.9 L (60.0-200.0) BUN/Creatinine Ratio 22.21 H (12.00-20.00) Ratio Calcium 8.4 L (8.7-10.3) mg/dL Total Bilirubin 0.20 L (0.30-1.20) mg/dL ALT 7 L (8-44) U/L Total Protein 5.8 L (6.2-8.2) g/dL Albumin 3.3 L (3.8-4.9) g/dL Albumin/Globulin Ratio 1.32 L (1.60-3.17) g/dL Microbiology - Last 24 Hours (Table) 02/23/22 12:39 Urine Culture - Final Urine,Catheterized Assessment and Plan Assessment: Attending note Rl dotson NP rendered care for this patient independently, reviewed the findings and plan as documented in the note above. I did not physically speak with or examined the patient on this date
[2022-02-25 16:22] VITALS: BMI 29.2
[2022-02-25 17:18] LABS: Glucose,Whole Blood 112 mg/dL (70-110)
[2022-02-25 21:29] LABS: Glucose,Whole Blood 104 mg/dL (70-110)
[2022-02-26 07:30] LABS: Glucose,Whole Blood 93 mg/dL (70-110)
[2022-02-26] MEDS: INSULIN ASPART (NovoLOG) 100 UNIT/ML VIAL SQ SCH ×4 (08:59→21:11)
[2022-02-26] MEDS: ASPIRIN 81 MG PO SCH (09:37)
[2022-02-26] MEDS: CALCIUM CARB-VIT D 500 MG-5 MCG TAB PO SCH ×2 (09:37→09:47)
[2022-02-26] MEDS: hydrALAZINE HCL 25 MG TAB PO SCH ×3 (09:37→21:14)
[2022-02-26] MEDS: ATORVASTATIN 10 MG TAB PO SCH (09:37)
[2022-02-26] MEDS: FOLIC ACID 1 MG TAB PO SCH (09:37)
[2022-02-26] MEDS: APIXABAN 2.5 MG TABLET PO SCH ×2 (09:38→21:14)
[2022-02-26] MEDS: COLCHICINE 0.6 MG EACH PO SCH ×2 (09:38→21:14)
[2022-02-26] MEDS: CARBIDOPA-LEVODOPA 25-100 MG 1 EACH TAB PO SCH ×3 (09:38→21:14)
[2022-02-26] MEDS: FERROUS SULFATE 325 MG TAB PO SCH (09:38)
[2022-02-26] MEDS: EZETIMIBE 10 MG TAB PO SCH (09:38)
[2022-02-26] MEDS: CYANOCOBALAMIN 500 MCG TAB PO SCH (09:39)
--- NOTE | 2022-02-26 11:37 | P.PN ---
Subjective Progress Note Date: 02/26/22 Hospital course: Patient is a very pleasant 81-year-old female with a past medical history of CAD status post CABG, atrial fibrillation on anticoagulation with Eliquis, diastolic CHF, COPD, HTN, HLD, CKD IIIb, type II diabetes mellitus,iand Parkinson's disease. She presented to the ED with a chief complaint of generalized weakness, dysuria, decreased urine output and lower back pain. She reports this has been ongoing for the past 2 day's and progressively worsened. Patient reports she is so weak she is unable to even walk with her walker. She reports ongoing bilateral lower extremity edema over the past few months in which she takes Lasix for treatment at home. She states that she has had a lot of improvement in this swelling . Patient denies having any fevers, chills, di aphoresis, dizziness, lightheadedness, chest pain, palpitations, shortness of breath, abdominal pain, nausea, vomiting, or experiencing any numbness or tingling in her extremities. Pt reports she lives at home alone and has a home care nurse from [facility] services that visits her often. She states she was too weak to care for herself at home and knew something was going on with her urine so she called for EMS to bring her to the hospital. Patient underwent full evaluation in the emergency department. Vital signs evaluated and were stable. Urinalysis was concerning for UTI and BMP revealed an acute kidney injury with BUN 44, creatinine 1.81 and GFR of 26 with baseline creatinine of 1 .CBC revealing leukopenia with WBC count of 3.1and normocytic anemia with hemoglobin of 8.5 both at baseline levels. Patient admitted under our services with consult to PT/OT. Physical exam: Patient seen and fully evaluated at bedside this morning. Patient's condition stable. She denies having any complaints or pain at this time. Patient continues to have generalized weakness in her lower extremities requiring assistance with standing and ambulation. [facility] has a ccepted patient and we are currently awaiting insurance authorization at this time. Patient updated and plans for discharge once insurance authorization is obtained. Vital signs reviewed and stable. General: Nontoxic, no distress and appears stated age. Derm: Skin warm and dry, normal coloration for ethnicity. Head: Atraumatic, normocephalic and symmetric. Eyes: EOMs intact, no lid lag, and anicteric sclera Mouth: no lip lesions, mucus membranes moist Cardiovascular: regular rate and rhythm with normal S1S2, systolic murmur, positive posterior tibial pulses bilaterally, and cap refill < 2 seconds. Lungs: Respirations even, regular, and unlabored on room air. Lungs CTA bilaterally, no rhonchi, no rales, no wheezing, and no accessory muscle usage. Abdominal: soft, nontender to palpation, no guarding, no appreciable organomegaly Ext: ROM intact. No gross muscle atrophy, 1+ BLE edema, no contractures Neuro: Speech clear, face symmetrical and CN II-XII grossly intact with no noted focal neuro deficits Psych: Alert and oriented to person, place, time, and situation. Appropriate and pleasant affect. Assessment and Plan of Care: Generalized weakness with inability to independently carry out activities of daily living -PT/OT stating patient is very limited secondary to weakness and bilateral lower extremities and poor endurance requiring total assist from sitting to standing and moderate assist with ambulating with use of rolling walker. -Case management has arranged for patient to be transferred to [facility] for rehab upon discharge. -Fall precautions Acute kidney injury on chronic kidney disease stage IIIB, resolved with IV fluid hydration and holding of Lasix. Dehydration, resolved after IV fluid hydration. UTI, completed 3 day course of antibiotic treatment with Rocephin. Urine culture then resulting negative. Urinary retention, resolved -Bladder management. CAD status post CABG Atrial fibrillation on anticoagulation with Eliquis Chronic Diastolic CHF with previously known EF of 55-60% Hypertension Hyperlipidemia -Monitor vital signs and continue daily medication regimen with aspirin, Eliquis, atorvastatin, Zetia, and hydralazine. -Lasix held.. Type II [id number] diabetes mellitus -Hold Januvia and place patient on glycemic protocol with NovoLog sliding scale. Parkinson's disease -Continue daily medication regimen with carbidopa levodopa CODE STATUS: Full Code DVT prophylaxis: Eliquis Discussed with: Patient , manager social responsibility, and RN Anticipated discharge date: Patient is medically clear for discharge at this time. Instructed by social work pending insurance authorization discharged to [facility] Anticipated discharge place: [facility] A total of 31 minutes was spent on the care of this complex patient more than 50% of the time was spent in counseling and care coordination. Objective - Vital Signs Vital signs: Vital Signs Temp 97.9 F 02/26/22 05:00 Pulse 73 11/18/22 05:00 Resp 16 02/26/22 05:00 BP 130/57 02/26/22 05:00 Pulse Ox 94 L 02/26/22 05:00 FiO2 Intake & Output 02/25/22 02/26/22 02/26/22 18:59 06:59 18:59 Intake Total 600 Output Total 1 Balance -1 600 Weight 72.575 kg Intake: Oral 600 Output: Urine 1 Other: Voiding Method Toilet Toilet # Voids 1 2 # Bowel Movements 1 1 - Labs CBC & Chem 7: 02/25/22 07:10 02/25/22 07:10 Labs: Abnormal Lab Results - Last 24 Hours (Table) 02/25/22 02/25/22 02/25/22 Range/Units 07:10 07:10 17:17 WBC 2.81 L (4.50-10.00) X 10*3/uL RBC 2.33 L (4.10-5.20) X 10*6/uL Hgb 7.3 L (12.0-15.0) g/dL Hct 24.5 L (37.2-46.3) % MCV 105.2 H (80.0-97.0) fL MCHC 29.8 L (32.0-37.0) g/dL RDW 19.7 H (11.5-14.5) % Plt Count 110 L (140-440) X 10*3/uL Chloride 111 H (96-109) mmol/L Carbon Dioxide 18.1 L (20.0-27.5) mmol/L Anion Gap 9.90 L (10.00-18.00) mmol/L BUN 31.1 H (9.0-27.0) mg/dL Est GFR (CKD-EPI)AfAm 40.5 L (60.0-200.0) Est GFR (CKD-EPI)NonAf 34.9 L (60.0-200.0) BUN/Creatinine Ratio 22.21 H (12.00-20.00) Ratio POC Glucose (mg/dL) 112 H (70-110) mg/dL Calcium 8.4 L (8.7-10.3) mg/dL Total Bilirubin 0.20 L (0.30-1.20) mg/dL ALT 7 L (8-44) U/L Total Protein 5.8 L (6.2-8.2) g/dL Albumin 3.3 L (3.8-4.9) g/dL Albumin/Globulin Ratio 1.32 L (1.60-3.17) g/dL Assessment and Plan Assessment: Attending note Rl Woodward NP rendered care for this patient independently, reviewed the findings and plan as documented in the note above. I did not physically speak with our examined the patient on this date.
[2022-02-26 12:37] LABS: Glucose,Whole Blood 97 mg/dL (70-110)
[2022-02-26] MEDS: GABAPENTIN 100 MG CAP PO SCH ×3 (14:02→21:14)
--- NOTE | 2022-02-26 15:16 | CDI ---
Documentation Clarification Form Date: 02/26/2022 03:05:21 PM From: Juanita Jarrett CCS, CCDS Admit Date: 02/23/2022 03:07:00 PM Patient Name: Digna Navarro Visit Number: [id number] Discharge Date: ATTENTION: The Clinical Documentation Specialists (CDI) and [facility] Coding Staff appreciate your assistance in clarifying documentation. Please respond to the clarification below the line at the bottom and electronically sign. The CDI & [facility] Coding staff will review the response and follow-up if needed. Please note: Queries are made part of the Legal Health Record. If you have any questions, please contact the author of this message via ITS. Dr. Erin Rodarte: Normocytic Anemia without further specificity is documented in the 02/23 H/P and in subsequent Progress Notes. Per the 02/23 H/P: CBC revealing leukopenia with WBC count of 3.1and normocytic anemia with hemoglobin of 8.5 at baseline levels. Additional specificity regarding the Type & Acuity of Anemia is requested. History/Risk Factors per the 02/23 H/P: CAD status post CABG, Atrial Fibrillation on anticoagulation, Chronic Diastolic CHF, COPD, Hypertension, Hyperlipidemia, CKD IIIb, DM II, Parkinson's Disease and former smoker. Clinical indicators: Presented to the ED on 02/23 via EMS with Back Pain, generalized weakness, inability to walk with her walker, urinary burning, decreased urine output for >24 hours. Admit with Acute Urinary Retention, Oliguria, Hematuria, Dehydration, Weakness and Failure to Thrive. Hemoglobin 02/23: 8.5. 02/24: 9.1. 02/25: 7.2. Hematocrit 02/23: 26.3. 02/24: 27.9. 02/25: 24.5. Treatment 02/23: Bladder Scan, Blood glucose monitoring, Fall precautions, I&Os, Neuro Assessment, IV Na Chl 1,000 mls @ 130 mls/hr q7H, IV Rocephin 50 mls @ 100 mls/hr q24H, IV Dextrose 25-50 ml prn. Please further clarify the Type & Acuity of Anemia: [ ] Chronic blood loss anemia [ ] Hemolytic anemia [ ] Nutritional anemia [ X ] Anemia of chronic kidney disease [ ] Anemia of chronic disease, please specify: [ ] Unable to determine [ ] Other, please specify (Template Last Revised: May 2020) MTDD
--- NOTE | 2022-02-26 15:25 | CDI ---
Documentation Clarification Form Date: 02/26/2022 03:17:00 PM From: Juanita Jarrett CCS, CCDS Admit Date: 02/23/2022 03:07:00 PM Patient Name: Digna Navarro Visit Number: [id number] Discharge Date: ATTENTION: The Clinical Documentation Specialists (CDI) and [facility] Coding Staff appreciate your assistance in clarifying documentation. Please respond to the clarification below the line at the bottom and electronically sign. The CDI & [facility] Coding staff will review the response and follow-up if needed. Please note: Queries are made part of the Legal Health Record. If you have any questions, please contact the author of this message via ITS. Dr. Bandar Lewis: Atrial Fibrillation is documented in the 02/23 History & Physical and in subsequent Progress Notes: Atrial fibrillation on anticoagulation with Eliquis, Chronic Diastolic CHF with previously known EF of 55-60% and Hypertension. Additional clarification regarding the type of Atrial Fibrillation is requested. History/Risk Factors per the 02/23 H/P: CAD status post CABG, Atrial Fibrillation on anticoagulation, Chronic Diastolic CHF, COPD, Hypertension, Hyperlipidemia, CKD IIIb, DM II, Parkinson's Disease and former smoker. Clinical indicators: Presented to the ED on 02/23 via EMS with Back Pain, generalized weakness, inability to walk with her walker, urinary burning, decreased urine output for >24 hours. Admit with Acute Urinary Retention, Oliguria, Hematuria, Dehydration, Weakness and Failure to Thrive. 02/23 VS: T 98.1, P 55, 61, 62, 56; R 16, BP 140/62, PO 95 RA, BMI: 29.3. No EKG. Previous ECHO 10/23/21: EF 55-60%, Mild LVH, Moderate Pulmonary Hypertension, Mild MR, Mild TR, Small pericardial effusion. Treatment 02/23: Bladder Scan, Blood glucose monitoring, Fall precautions, I&Os, Neuro Assessment, IV Na Chl 1,000 mls @ 130 mls/hr q7H, IV Rocephin 50 mls @ 100 mls/hr q24H, IV Dextrose 25-50 ml prn, po Eliquis 2.5 mg BID. Please clarify the type of Atrial Fibrillation, if known: [ ] Chronic [ ] Permanent [ ] Paroxysmal [ ] Persistent [ ] Other, please specify: [ x ] Unable to determine (Template Last Revised: August 2020) [facility]
[2022-02-26] MEDS: ACETAMINOPHEN TAB 325 MG TAB PO PRN ×2 (16:48→23:26)
[2022-02-26 16:56] LABS: Glucose,Whole Blood 99 mg/dL (70-110)
[2022-02-26 20:55] LABS: Glucose,Whole Blood 120 mg/dL (70-110)
[2022-02-26] MEDS ORDERED: ONDANSETRON 4 MG/2 ML VIAL IVP STA (23:18)
[2022-02-27 07:34] LABS: Glucose,Whole Blood 98 mg/dL (70-110)
[2022-02-27] MEDS ORDERED: ONDANSETRON 4 MG/2 ML VIAL IVP PRN (08:46)
[2022-02-27 09:11] LABS: Anisocytosis Moderate; HCT 23.7 % (34.0-46.0); Hypochromasia Marked; MCH 31.4 pg (25.0-35.0); MCHC 30.5 g/dL (31.0-37.0); MCV 102.9 fL (80.0-100.0); Macrocytosis Moderate; Mean Platelet Volume 10.6; Platelet Count 103 k/uL (150-450); Poikilocytosis Slight; RDW 20.4 % (11.5-15.5); WBC 2.4 k/uL (3.8-10.6)
[2022-02-27 09:22] LABS: ALT 10 U/L (4-34); AST 35 U/L (14-36); African American GFR (CKD) 40 (>60 ml/min/1.73 sqM); Albumin 3.1 g/dL (3.5-5.0); Albumin/Globulin Ratio 1.1; Alkaline Phosphatase 81 U/L (38-126); Anion Gap 7 mmol/L; Blood Urea Nitrogen 31 mg/dL (7-17); Calcium 8.2 mg/dL (8.4-10.2); Carbon Dioxide 17 mmol/L (22-30); Chloride 116 mmol/L (98-107); Globulin 2.7 g/dL; Glucose 94 mg/dL (74-99); Non-African American GFR(CKD) 35 (>60 ml/min/1.73 sqM); Sodium 140 mmol/L (137-145); Total Bilirubin 0.5 mg/dL (0.2-1.3); Total Protein 5.8 g/dL (6.3-8.2)
[2022-02-27 09:49] LABS: HGB 7.2 gm/dL (11.4-16.0)
[2022-02-27] MEDS: INSULIN ASPART (NovoLOG) 100 UNIT/ML VIAL SQ SCH ×3 (10:19→18:34)
[2022-02-27] MEDS: APIXABAN 2.5 MG TABLET PO SCH (10:39)
[2022-02-27] MEDS: ATORVASTATIN 10 MG TAB PO SCH (10:39)
[2022-02-27] MEDS: CALCIUM CARB-VIT D 500 MG-5 MCG TAB PO SCH (10:39)
[2022-02-27] MEDS: ASPIRIN 81 MG PO SCH (10:39)
[2022-02-27] MEDS: FERROUS SULFATE 325 MG TAB PO SCH (10:40)
[2022-02-27] MEDS: EZETIMIBE 10 MG TAB PO SCH (10:40)
[2022-02-27] MEDS: CARBIDOPA-LEVODOPA 25-100 MG 1 EACH TAB PO SCH ×2 (10:40→16:02)
[2022-02-27] MEDS: CYANOCOBALAMIN 500 MCG TAB PO SCH (10:40)
[2022-02-27] MEDS: COLCHICINE 0.6 MG EACH PO SCH (10:40)
[2022-02-27] MEDS: GABAPENTIN 100 MG CAP PO SCH ×3 (10:41→18:45)
[2022-02-27] MEDS: FOLIC ACID 1 MG TAB PO SCH (10:41)
[2022-02-27] MEDS: hydrALAZINE HCL 25 MG TAB PO SCH ×2 (10:41→16:02)
[2022-02-27] MEDS: ACETAMINOPHEN TAB 325 MG TAB PO PRN (10:46)
--- NOTE | 2022-02-27 10:57 | P.DS ---
Providers Date of admission: 02/23/22 15:07 Expected date of discharge: 02/27/22 Attending physician: Bandar Lewis MD Primary care physician: Benson Boswell [facility] Course: Discharge Diagnosis: Generalized weakness with inability to independently carry out activities of daily living, generalized weakness resulting from dehydration secondary to daily diuretic use and insufficient oral intake of fluids. Lasix was held and patient was rehydrated. Patient may resume low-dose Lasix at 20 mg daily and educated on importance of maintaining oral hydration and to weigh self daily. Patient to follow-up with PCP and cardiology. Patient being discharged to extended care facility for physical therapy and continued rehab to regain strength and endurance. Acute kidney injury on chronic kidney disease stage IIIB, resolved with IV fluid hydration and holding of Lasix. Dehydration, resolved after IV fluid hydration. Anemia of chronic disease, baseline hemoglobin 8. Hemoglobin 7.2 on discharge (7.3 previous day). Patient to follow-up with repeat CBC-CIWA Protocol with symptom triggered medication management with benzodiazepines. UTI, completed 3 day course of antibiotic treatment with Rocephin. Urine culture then resulting negative. Urinary retention, resolved. CAD status post CABG. Continue daily medication regimen with aspirin, Eliquis, atorvastatin, Zetia, and hydralazine. Paroxysmal Atrial fibrillation on anticoagulation with Eliquis Chronic Diastolic CHF with previously known EF of 55-60%. Continue daily medication regimen with aspirin, Eliquis, atorvastatin, Zetia, and hydralazine. Hypertension Hyperlipidemia Type II [id number] diabetes mellitus Parkinson's disease. Continue daily medication regimen with carbidopa levodopa Hospital Course: Patient is a very pleasant 81-year-old female with a past medical history of CAD status post CABG, atrial fibrillation on anticoagulation with Eliquis, bala stolic CHF, COPD, HTN, HLD, CKD IIIb, pancytopenia, type II diabetes mellitus,iand Parkinson's disease. She presented to the ED with a chief complaint of generalized weakness, dysuria, decreased urine output and lower back pain. She reports this has been ongoing for the past 2 day's and progressively worsened. Patient reports she is so weak she is unable to even walk with her walker. She reports ongoing bilateral lower extremity edema over the past few months in which she takes Lasix for treatment at home. She states that she has had a lot of improvement in this swelling . Patient denies having any fevers, chills, diaphoresis, dizziness, lightheadedness, chest pain, palpitations, shortness of breath, abdominal pain, nausea, vomiting, or experiencing any numbness or tingling in her extremities. Pt reports she lives at home alone and has a home care nurse from [facility] services that visits her often. She states she was too weak to care for herself at home and knew something was going on with her urine so she called for EMS to bring her to the hospital. Patient underwent full evaluation in the emergency department. Vital signs evaluated and were stable. Urinalysis was concerning for UTI and BMP revealed an acute kidney injury with BUN 44, creatinine 1.81 and GFR of 26 with baseline creatinine of 1.CBC revealing leukopenia with WBC count of 3.1and normocytic anemia with hemoglobin of 8.5 both at baseline levels. Patient admitted under our services with consult to PT/OT. Patient completed course of antibiotics for treatment of UTI. Urine culture resulting negative. Patient was then rehydrated for dehydration and evaluated by physical therapy. Was deemed in patient's best interest that she would benefit from [facility] facility upon discharge for continued physical therapy/rehab to work on improvement of strength and endurance. Patient has been accepted to [facility] facility. Insurance authorization has been obtained. Patient is medically stable for discharge at this time. Physical exam: Vital signs reviewed and stable. General: Nontoxic, no distress and appears stated age. Derm: Skin warm and dry, normal coloration for ethnicity. Head: Atraumatic, normocephalic and symmetric. Eyes: EOMs intact, no lid lag, and anicteric sclera Mouth: no lip lesions, mucus membranes moist Cardiovascular: regular rate and rhythm with normal S1S2, systolic murmur, positive posterior tibial pulses bilaterally, and cap refill < 2 seconds. Lungs: Respirations even, regular, and unlabored on room air. Lungs CTA bilaterally, no rhonchi, no rales, no wheezing, and no accessory muscle usage. Abdominal: soft, nontender to palpation, no guarding, no appreciable organomegaly Ext: ROM intact. No gross muscle atrophy, 1+ BLE edema, no contractures Neuro: Speech clear, face symmetrical and CN II-XII grossly intact with no noted focal neuro deficits Psych: Alert and oriented to person, place, time, and situation. Appropriate and pleasant affect. A total of 34 minutes of time were spent preparing this complex discharge summary. Pt was discharged on 02/27/22 at 10:44 AM. I reviewed the documentation as provided by the KEVIN above, who is the original author of this note. I agree with the documented assessment and plan, with the following changes: none Patient Condition at Discharge: Stable Plan - Discharge Summary New Discharge Prescriptions: New Ondansetron [Ondansetron Odt] 4 mg PO Q6H PRN #40 tab PRN Reason: Nausea Continue Ezetimibe [Zetia] 10 mg PO DAILY Lovastatin [Mevacor] 10 mg PO DAILY Cyanocobalamin [Vitamin B-12] 500 mcg PO DAILY Apixaban [Eliquis] 2.5 mg PO BID sitaGLIPtin [Januvia] 50 mg PO DAILY Aspirin EC [Ecotrin Low Dose] 81 mg PO DAILY Folic Acid 1 mg PO DAILY hydrALAZINE HCL [Apresoline] 25 mg PO TID Ferrous Sulfate [Iron (65 MG Elemental)] 325 mg PO DAILY Colchicine [Mitigare] 0.6 mg PO BID Acetaminophen Tab [Tylenol] 650 mg PO Q4HR PRN PRN Reason: Fever And/ Or Pain Carbidopa-Levodopa 25-100 mg [Sinemet 25-100 mg] 1 tab PO TID Shen/D3/Mag11/Zinc/Paradi Operator/[place]/Bor [Caltrate 600+D Plus Tablet] 1 tab PO DAILY Furosemide [Lasix] 20 mg PO DAILY Gabapentin [Neurontin] 100 mg PO QID #12 cap Discharge Medication List Ezetimibe [Zetia] 10 mg PO DAILY 11/20/13 [History] Lovastatin [Mevacor] 10 mg PO DAILY 11/20/13 [History] Apixaban [Eliquis] 2.5 mg PO BID 02/17/20 [History] Cyanocobalamin [Vitamin B-12] 500 mcg PO DAILY 02/17/20 [History] Ferrous Sulfate [Iron (65 MG Elemental)] 325 mg PO DAILY 02/05/21 [History] Aspirin EC [Ecotrin Low Dose] 81 mg PO DAILY 07/19/21 [History] Colchicine [Mitigare] 0.6 mg PO BID 07/19/21 [History] sitaGLIPtin [Januvia] 50 mg PO DAILY 07/19/21 [History] Folic Acid 1 mg PO DAILY 10/22/21 [History] Acetaminophen Tab [Tylenol] 650 mg PO Q4HR PRN 11/25/21 [History] hydrALAZINE HCL [Apresoline] 25 mg PO TID 11/25/21 [History] Carbidopa-Levodopa 25-100 mg [Sinemet 25-100 mg] 1 tab PO TID 12/09/21 [History] Shen/D3/Mag11/Zinc/Paradi Operator/[place]/Bor [Caltrate 600+D Plus Tablet] 1 tab PO DAILY 02/23/22 [History] Furosemide [Lasix] 20 mg PO DAILY 02/23/22 [History] Gabapentin [Neurontin] 100 mg PO QID #12 cap 02/27/22 [Rx] Ondansetron [Ondansetron Odt] 4 mg PO Q6H PRN #40 tab 02/27/22 [Rx] Follow up Appointment(s)/Referral(s): Benson Boswell MD [Primary Care Provider] - 1-2 days Ambulatory/Diagnostic Orders: Basic Metabolic Panel [LAB.AMB] Location: None Selected Complete Blood Count w/diff [LAB.AMB] Location: None Selected Activity/Diet/Wound Care/Special Instructions: Activity: As tolerated. Take breaks as needed. Diet: Ensure adequate hydration to prevent further episodes of dehydration. Heart healthy and carb consistent diet. Avoid salts, or foods with hidden salts such as canned or boxed foods and frozen dinners. Extra salt makes your heart work harder and traps the fluid in your body for longer. Special Instructions: Take all of your medications as directed and remember to keep all of your doctor's appointments and follow-up as needed. Will need repeat CBC and BMP completed in 1 week. Thank you for allowing us to participate in your care, it was truly a pleasure having you for our patient!!! Discharge Disposition: TRANSFER TO SNF/ECF
[2022-02-27 11:47] VITALS: BP 123/54; PULSE 62; RESP 19; TEMP 97.5
[2022-02-27 11:47] LABS: Glucose,Whole Blood 128 mg/dL (70-110)
[2022-02-27 12:07] LABS: Band Neutrophils % 1 %; Basophils # (M) 0.02 k/uL (0-0.2); Eosinophils # (M) 0.05 k/uL (0-0.7); Lymphocytes # (M) 0.62 k/uL (1.0-4.8); Monocytes # (M) 0.26 k/uL (0-1.0); Myelocytes # (M) 0.02 k/uL (0); Myelocytes % 1 %; Neutrophils % (M) 60 %; Nucleated Red Blood Cells 0 /100 WBC (0-0); Tear Drop Cells Present; Total Cells Counted 200
[2022-02-27 17:51] LABS: Glucose,Whole Blood 97 mg/dL (70-110)
== END 2022-02-27 20:09 ==
LOC: EC 11:27 → 5NMEDONC 15:07 → INTOOBSV 15:07 → 5NMEDONC 19:50
PROVIDERS: ADMIT Student in an Organized Health Care Education/Training Program; ATTEND Student in an Organized Health Care Education/Training Program
DX: N17.9 Acute kidney failure, unspecified (principal); N39.0 Urinary tract infection, site not specified; E86.0 Dehydration; T50.2X5A Adverse effect of carbonic-anhydrase inhibitors, benzothiadiazides and other diuretics, initial encounter; R53.1 Weakness; R62.7 Adult failure to thrive; K56.7 Ileus, unspecified; E11.51 Type 2 diabetes mellitus with diabetic peripheral angiopathy without gangrene; I13.0 Hypertensive heart and chronic kidney disease with heart failure and stage 1 through stage 4 chronic kidney disease, or unspecified chronic kidney disease; N18.32 Chronic kidney disease, stage 3b; D63.1 Anemia in chronic kidney disease; E11.22 Type 2 diabetes mellitus with diabetic chronic kidney disease; I48.91 Unspecified atrial fibrillation; I50.32 Chronic diastolic (congestive) heart failure; I25.10 Atherosclerotic heart disease of native coronary artery without angina pectoris; I48.0 Paroxysmal atrial fibrillation; E78.5 Hyperlipidemia, unspecified; G20 Parkinson's disease; I27.20 Pulmonary hypertension, unspecified; E11.41 Type 2 diabetes mellitus with diabetic mononeuropathy; E11.42 Type 2 diabetes mellitus with diabetic polyneuropathy; J44.9 Chronic obstructive pulmonary disease, unspecified; D61.818 Other pancytopenia; D63.8 Anemia in other chronic diseases classified elsewhere; M54.50 Low back pain, unspecified; D72.819 Decreased white blood cell count, unspecified; M81.0 Age-related osteoporosis without current pathological fracture; M10.9 Gout, unspecified; K21.9 Gastro-esophageal reflux disease without esophagitis; I48.92 Unspecified atrial flutter; I25.2 Old myocardial infarction; G47.30 Sleep apnea, unspecified; R63.8 Other symptoms and signs concerning food and fluid intake; R26.2 Difficulty in walking, not elsewhere classified; F40.240 Claustrophobia; Z79.01 Long term (current) use of anticoagulants; Z79.82 Long term (current) use of aspirin; Z79.84 Long term (current) use of oral hypoglycemic drugs; Z79.899 Other long term (current) drug therapy; Z88.4 Allergy status to anesthetic agent; Z88.5 Allergy status to narcotic agent; Z88.7 Allergy status to serum and vaccine; Z88.8 Allergy status to other drugs, medicaments and biological substances; Z95.1 Presence of aortocoronary bypass graft; Z87.442 Personal history of urinary calculi; Z87.19 Personal history of other diseases of the digestive system; Z86.16 Personal history of COVID-19; Z91.81 History of falling; Z86.010 Personal history of colon polyps; Z87.828 Personal history of other (healed) physical injury and trauma; Z16.21 Resistance to vancomycin; Z90.49 Acquired absence of other specified parts of digestive tract; Z87.891 Personal history of nicotine dependence; Z90.710 Acquired absence of both cervix and uterus; Z98.890 Other specified postprocedural states; Z95.828 Presence of other vascular implants and grafts; Z82.49 Family history of ischemic heart disease and other diseases of the circulatory system; Z82.5 Family history of asthma and other chronic lower respiratory diseases; Z80.9 Family history of malignant neoplasm, unspecified
CPT/HCPCS: 96361 ×3; 96366 ×3; 96375; 96365; 99285; 51798; 36415; 97530; 97163; 97535; 97167; 80053 ×3; 80048; 82550; 83605; 83690; 85025 ×2; 85027 ×2; 81001; 87086; 87635; 74018; G0378 ×5; J2405; J0696 ×3

== ENCOUNTER 2022-03-06 19:35 | Inpatient (IN) | payer MEDICARE, OTHER ==
--- NOTE | 2022-03-06 19:53 | ED ---
SOB HPI - General Source: patient, EMS, RN notes reviewed, old records reviewed Mode of arrival: EMS - History of Present Illness MD Complaint: shortness of breath <Diallo Garza - Last Filed: 03/06/22 21:01> <Yfn Portillo - Last Filed: 03/06/22 23:22> - General Stated Complaint: Difficulty Breathing Time Seen by Provider: 03/06/22 19:40 - History of Present Illness Initial Comments: 82-year-old female with a recent history of admission to this facility from the of the of this month at that time she was admitted for urinary retention dehydration acute kidney injury oliguria and chronic anemia who today comes from the assisted by EMS with reports of shortness of breath reports that she had an x-ray done earlier showed evidence of CHF and possible pneumonia. Patient denies any chest pain fevers chills or sweats. She states she does have an ALLERGY to albuterol however etiology seems to be nausea after a treatment. No other complaints or modifying factors reported at this time. (Diallo Garza) - Related Data Home Medications Medication Instructions Recorded Confirmed Ezetimibe [Zetia] 10 mg PO DAILY@0800 11/20/13 03/06/22 Lovastatin [Mevacor] 10 mg PO DAILY@1700 11/20/13 03/06/22 Apixaban [Eliquis] 2.5 mg PO BID@0800,1700 02/17/20 03/06/22 Cyanocobalamin [Vitamin B-12] 500 mcg PO DAILY@1700 02/17/20 03/06/22 Ferrous Sulfate [Iron (65 MG 325 mg PO DAILY@1700 02/05/21 03/06/22 Elemental)] Aspirin EC [Ecotrin Low Dose] 81 mg PO DAILY@1700 07/19/21 03/06/22 Colchicine [Mitigare] 0.6 mg PO BID@0800,1700 07/19/21 03/06/22 sitaGLIPtin [Januvia] 50 mg PO DAILY@0800 07/19/21 03/06/22 Folic Acid 1 mg PO DAILY@1700 10/22/21 03/06/22 Acetaminophen Tab [Tylenol] 650 mg PO Q4HR PRN 11/25/21 03/06/22 hydrALAZINE HCL [Apresoline] 25 mg PO TID@0800,1400,2100 PRN 11/25/21 03/06/22 Carbidopa-Levodopa 25-100 mg 1 tab PO TID@0800,1400,2100 12/09/21 03/06/22 [Sinemet 25-100 mg] Hsen/D3/Mag11/Zinc/Spr[employer]/[place]/Bor 1 tab PO DAILY@1700 02/23/22 03/06/22 [Caltrate 600+D Plus Tablet] Furosemide [Lasix] 40 mg PO DAILY@0800 03/06/22 03/06/22 Gabapentin [Neurontin] 100 mg PO QID@08,12,17,03/06/22 03/06/22 Loperamide HCl [Imodium A-D] 2 - 4 mg PO QID PRN MDD 8MG 03/06/22 03/06/22 Magnesium Hydroxide [Milk of 7,200 mg PO DAILY PRN 03/06/22 03/06/22 Magnesia Concentrate] Na Phos,M-B/Na Phos,Di-Ba [Fleet 133 ml RECTAL DAILY PRN 03/06/22 03/06/22 Adult] Ondansetron [Ondansetron Odt] 4 mg PO Q8H PRN 03/06/22 03/06/22 bisacodyL [Dulcolax] 10 mg RECTAL DAILY PRN 03/06/22 03/06/22 Allergies Allergy/AdvReac Type Severity Reaction Status Date / Time tuberculin, purified protein Allergy Per [place] Verified 03/06/22 20:59 deriva albuterol [From DuoNeb] AdvReac Nausea Verified 03/06/22 20:59 cortisone AdvReac PAIN Verified 03/06/22 20:59 hydrocodone AdvReac Nausea Verified 03/06/22 20:59 ipratropium [From DuoNeb] AdvReac Nausea Verified 03/06/22 20:59 procaine HCl [From Novocain] AdvReac pain Verified 03/06/22 20:59 allergy medicines AdvReac "dries me Uncoded 02/23/22 11:46 out, bloody noses,generalized pain" Review of Systems ROS Other: All systems not noted in ROS Statement are negative. <Diallo Garza - Last Filed: 03/06/22 21:01> ROS Other: All systems not noted in ROS Statement are negative. <Yfn Portillo - Last Filed: 03/06/22 23:22> ROS Statement: Those systems with pertinent positive or pertinent negative responses have been documented in the HPI. 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 Last Myocardial Infarction Date:: 1999 History of Any Multi-Drug Resistant Organisms: VRE Date of last positivie culture/infection: 11/06/21 MDRO Source:: Urine Past Surgical History: Appendectomy, Coronary Bypass/CABG, Heart Catheterization, Hysterectomy, Tonsillectomy Additional Past Surgical History / Comment(s): 1999 CABG 4 vessel, BETHEL/car dioversion, abdominal aortagrams/bilateral runoffs, R atherectomy/PTBA/stent to R SFA, R neck benign lymph node removed, cysto/lithotripsy/aborted d/t unable to visualize stone, EGD, colonoscopy Past Anesthesia/Blood Transfusion Reactions: Motion Sickness Additional Past Anesthesia/Blood Transfusion Reaction / Comment(s): Pt has motion sickness/clausterphobia. Past Psychological History: No Psychological Hx Reported Smoking Status: Former smoker Past Alcohol Use History: None Reported Past Drug Use History: None Reported - Past Family History Brother(s) Family Medical History: Cancer Son(s) Family Medical History: Cancer, Myocardial Infarction (HI) Sister(s) Family Medical History: Cancer Mother Family Medical History: COPD, Myocardial Infarction (HI) Additional Family Medical History / Comment(s): mother of HI-pt cannot recall at what age. <Diallo Garza Last Filed: 03/06/22 21:01> General Exam General appearance: alert, in no apparent distress Head exam: Present: atraumatic, normocephalic, normal inspection Eye exam: Present: normal appearance, PERRL, EOMI. Absent: scleral icterus, conjunctival injection, periorbital swelling ENT exam: Present: mucous membranes dry Neck exam: Present: normal inspection, full ROM, other (No stridor JVD or bruits). Absent: tenderness, meningismus, lymphadenopathy Respiratory exam: Present: decreased breath sounds, other (Basilar crackles on the left). Absent: respiratory distress, wheezes, rales, rhonchi, stridor Cardiovascular Exam: Present: regular rate, normal rhythm, normal heart sounds. Absent: systolic murmur, diastolic murmur, rubs, gallop, clicks GI/Abdominal exam: Present: soft, normal bowel sounds. Absent: distended, tenderness, guarding, rebound, rigid Extremities exam: Present: full ROM, normal capillary refill, other (Stasis dermatitis both lower extremities). Absent: tenderness, pedal edema, joint swelling, calf tenderness Back exam: Present: normal inspection Neurological exam: Present: alert, oriented X3, CN II-XII intact Psychiatric exam: Present: normal affect, normal mood Skin exam: Present: warm, dry, intact, normal color. Absent: rash <Diallo Garza Filed: 03/06/22 21:01> General appearance: alert, in no apparent distress, anxious Head exam: Present: atraumatic, normocephalic, normal inspection Eye exam: Present: normal appearance, PERRL, EOMI. Absent: scleral icterus, conjunctival injection, periorbital swelling ENT exam: Present: normal exam, mucous membranes dry Neck exam: Present: normal inspection. Absent: tenderness, meningismus, lymphadenopathy Respiratory exam: Present: wheezes, rales, decreased breath sounds. Absent: respiratory distress, rhonchi, stridor Cardiovascular Exam: Present: regular rate, normal rhythm, normal heart sounds. Absent: systolic murmur, diastolic murmur, rubs, gallop, clicks GI/Abdominal exam: Present: soft, normal bowel sounds. Absent: distended, tenderness, guarding, rebound, rigid Extremities exam: Present: normal inspection, full ROM, normal capillary refill. Absent: tenderness, pedal edema, joint swelling, calf tenderness Back exam: Present: normal inspection Neurological exam: Present: alert, oriented X3, CN II-XII intact Psychiatric exam: Present: normal affect, normal mood Skin exam: Present: warm, dry, intact, normal color. Absent: rash <Yfn Portillo - Last Filed: 03/06/22 23:22> - General Exam Comments Initial Comments: Is a well-developed frail-appearing female who is awake alert oriented 4 (Diallo Garza) Course <Diallo Garza - Last Filed: 03/06/22 21:01> <Yfn Portillo - Last Filed: 03/06/22 23:22> Vital Signs 03/06/22 03/06/22 19:42 22:00 Temperature 98.7 F Pulse Rate 63 61 Respiratory 18 22 Rate Blood Pressure 119/58 126/56 O2 Sat by Pulse 100 Oximetry - Reevaluation(s) Reevaluation #1: 03/06/22 21:01 Patient's care is endorsed to Dr. Portillo at our shift change. Workup pending in progress. (Diallo Garza) Reevaluation #2: 03/06/22 23:21 Patient informed of results and questions answered (Yfn Portillo) Reevaluation #3: 03/06/22 23:21 Patient has no significant worsening of symptoms but also no improvement here in the ER (Yfn Portillo) - Consultations Consultation #1: Spoke with Dr. Jim agrees to admit this patient (Yfn Portillo) Medical Decision Making - EKG Data -: EKG Interpreted by Me <Diallo Garza - Last Filed: 03/06/22 21:01> - Lab Data Result diagrams: 03/06/22 20:23 03/06/22 20:23 - Radiology Data Radiology results: report reviewed (Chest x-rays positive for CHF), image reviewed <Yfn Portillo - Last Filed: 03/06/22 23:22> - Medical Decision Making 82 female to the emergency department with difficulty breathing COPD CHF and severe anemia symptomatic. [place] for transfusion and monitoring of worsening CHF and breathing treatments (Yfn Portillo) - Lab Data Lab Results 03/06/22 03/06/22 03/06/22 Range/Units 20:23 20:23 20:23 WBC 2.0 L (3.8-10.6) k/uL RBC 1.97 L (3.80-5.40) m/uL Hgb 6.5 L* (11.4-16.0) gm/dL Hct 19.3 L* (34.0-46.0) % MCV 98.4 (80.0-100.0) fL MCH 33.1 (25.0-35.0) pg MCHC 33.6 (31.0-37.0) g/dL RDW 19.8 H (11.5-15.5) % Plt Count 74 L (150-450) k/uL MPV 11.2 Neutrophils % (Manual) 71 % Band Neuts % (Manual) 4 % Lymphocytes % (Manual) 20 % Monocytes % (Manual) 4 % Eosinophils % (Manual) 1 % Metamyelocytes % 1 % Neutrophils # (Manual) 1.50 (1.3-7.7) k/uL Lymphocytes # (Manual) 0.40 L (1.0-4.8) k/uL Monocytes # (Manual) 0.08 (0-1.0) k/uL Eosinophils # (Manual) 0.02 (0-0.7) k/uL Metamyelocytes # (Man) 0.02 H (0) k/uL Nucleated RBCs 0 (0-0) /100 WBC Manual Slide Review Performed Hypochromasia Moderate Poikilocytosis Moderate Anisocytosis Slight Macrocytosis Slight Ovalocytes Present PT (9.0-12.0) sec INR (<1.2) APTT (22.0-30.0) sec D-Dimer (<0.60) mg/L FEU Sodium 137 (137-145) mmol/L Potassium 4.1 (3.5-5.1) mmol/L Chloride 110 H (98-107) mmol/L Carbon Dioxide 18 L (22-30) mmol/L Anion Gap 9 mmol/L BUN 67 H (7-17) mg/dL Creatinine 1.76 H (0.52-1.04) mg/dL Est GFR (CKD-EPI)AfAm 30 (>60 ml/min/1.73 sqM) Est GFR (CKD-EPI)NonAf 26 (>60 ml/min/1.73 sqM) Glucose 97 (74-99) mg/dL Plasma Lactic Acid Roderick 0.9 (0.7-2.0) mmol/L Calcium 7.8 L (8.4-10.2) mg/dL Magnesium 1.6 (1.6-2.3) mg/dL Total Bilirubin 0.3 (0.2-1.3) mg/dL AST 27 (14-36) U/L ALT 8 (4-34) U/L Alkaline Phosphatase 119 (38-126) U/L Troponin I (0.000-0.034) ng/mL NT-Pro-B Natriuret Pep pg/mL Total Protein 6.0 L (6.3-8.2) g/dL Albumin 3.2 L (3.5-5.0) g/dL Blood Type Blood Type Recheck Bld Type Recheck Status Antibody Screen Crossmatch Spec Expiration Date 03/06/22 03/06/22 03/06/22 Range/Units 20:23 20:23 20:52 WBC (3.8-10.6) k/uL RBC (3.80-5.40) m/uL Hgb (11.4-16.0) gm/dL Hct (34.0-46.0) % MCV (80.0-100.0) fL MCH (25.0-35.0) pg MCHC (31.0-37.0) g/dL RDW (11.5-15.5) % Plt Count (150-450) k/uL MPV Neutrophils % (Manual) % Band Neuts % (Manual) % Lymphocytes % (Manual) % Monocytes % (Manual) % Eosinophils % (Manual) % Metamyelocytes % % Neutrophils # (Manual) (1.3-7.7) k/uL Lymphocytes # (Manual) (1.0-4.8) k/uL Monocytes # (Manual) (0-1.0) k/uL Eosinophils # (Manual) (0-0.7) k/uL Metamyelocytes # (Man) (0) k/uL Nucleated RBCs (0-0) /100 WBC Manual Slide Review Hypochromasia Poikilocytosis Anisocytosis Macrocytosis Ovalocytes PT 12.5 H (9.0-12.0) sec INR 1.2 H (<1.2) APTT 20.9 L (22.0-30.0) sec D-Dimer 6.09 H (<0.60) mg/L FEU Sodium (137-145) mmol/L Potassium (3.5-5.1) mmol/L Chloride (98-107) mmol/L Carbon Dioxide (22-30) mmol/L Anion Gap mmol/L BUN (7-17) mg/dL Creatinine (0.52-1.04) mg/dL Est GFR (CKD-EPI)AfAm (>60 ml/min/1.73 sqM) Est GFR (CKD-EPI)NonAf (>60 ml/min/1.73 sqM) Glucose (74-99) mg/dL Plasma Lactic Acid Roderick (0.7-2.0) mmol/L Calcium (8.4-10.2) mg/dL Magnesium (1.6-2.3) mg/dL Total Bilirubin (0.2-1.3) mg/dL AST (14-36) U/L ALT (4-34) U/L Alkaline Phosphatase (38-126) U/L Troponin I 0.018 (0.000-0.034) ng/mL NT-Pro-B Natriuret Pep 9730 pg/mL Total Protein (6.3-8.2) g/dL Albumin (3.5-5.0) g/dL Blood Type Blood Type Recheck Bld Type Recheck Status Antibody Screen Crossmatch Spec Expiration Date 03/06/22 Range/Units 21:58 WBC (3.8-10.6) k/uL RBC (3.80-5.40) m/uL Hgb (11.4-16.0) gm/dL Hct (34.0-46.0) % MCV (80.0-100.0) fL MCH (25.0-35.0) pg MCHC (31.0-37.0) g/dL RDW (11.5-15.5) % Plt Count (150-450) k/uL MPV Neutrophils % (Manual) % Band Neuts % (Manual) % Lymphocytes % (Manual) % Monocytes % (Manual) % Eosinophils % (Manual) % Metamyelocytes % % Neutrophils # (Manual) (1.3-7.7) k/uL Lymphocytes # (Manual) (1.0-4.8) k/uL Monocytes # (Manual) (0-1.0) k/uL Eosinophils # (Manual) (0-0.7) k/uL Metamyelocytes # (Man) (0) k/uL Nucleated RBCs (0-0) /100 WBC Manual Slide Review Hypochromasia Poikilocytosis Anisocytosis Macrocytosis Ovalocytes PT (9.0-12.0) sec INR (<1.2) APTT (22.0-30.0) sec D-Dimer (<0.60) mg/L FEU Sodium (137-145) mmol/L Potassium (3.5-5.1) mmol/L Chloride (98-107) mmol/L Carbon Dioxide (22-30) mmol/L Anion Gap mmol/L BUN (7-17) mg/dL Creatinine (0.52-1.04) mg/dL Est GFR (CKD-EPI)AfAm (>60 ml/min/1.73 sqM) Est GFR (CKD-EPI)NonAf (>60 ml/min/1.73 sqM) Glucose (74-99) mg/dL Plasma Lactic Acid Roderick (0.7-2.0) mmol/L Calcium (8.4-10.2) mg/dL Magnesium (1.6-2.3) mg/dL Total Bilirubin (0.2-1.3) mg/dL AST (14-36) U/L ALT (4-34) U/L Alkaline Phosphatase (38-126) U/L Troponin I (0.000-0.034) ng/mL NT-Pro-B Natriuret Pep pg/mL Total Protein (6.3-8.2) g/dL Albumin (3.5-5.0) g/dL Blood Type A Positive Blood Type Recheck A Pos Bld Type Recheck Status No Antibody Screen NEGATIVE Crossmatch See Detail Spec Expiration Date 03/09/20222357 - EKG Data EKG Comments: EKG read by me shows a sinus rhythm a 62 DC interval 160 QRS duration 90 QT since QTC of 400/[address] configuration some artifact present (Diallo Garza) Critical Care Time Critical Care Time: Yes Total Critical Care Time: 31 <Yfn Portillo - Last Filed: 03/06/22 23:22> Disposition <Diallo Garza - Last Filed: 03/06/22 21:01> Is patient prescribed a controlled substance at d/c from ED?: No Time of Disposition: 23:20 <Yfn Portillo - Last Filed: 03/06/22 23:22> Clinical Impression: Acute exacerbation of chronic obstructive pulmonary disease, CHF (congestive heart failure), Anemia, Weakness Disposition: ADMITTED IP TO THIS HOSP Condition: Serious Referrals: Benson Boswell MD [Primary Care Provider] - 1-2 days
[2022-03-06 20:51] LABS: Anisocytosis Slight; Hypochromasia Moderate; MCH 33.1 pg (25.0-35.0); MCHC 33.6 g/dL (31.0-37.0); MCV 98.4 fL (80.0-100.0); Macrocytosis Slight; Mean Platelet Volume 11.2; Poikilocytosis Moderate; RBC 1.97 m/uL (3.80-5.40); RDW 19.8 % (11.5-15.5)
--- NOTE | 2022-03-06 21:15 | XR ---
EXAMINATION TYPE: XR chest 2V DATE OF EXAM: 03/06/2022 COMPARISON: 11/25/2021 HISTORY: Short of breath TECHNIQUE: FINDINGS: Heart is enlarged. There is pulmonary vascular congestion. There are sternal wires. There i s blunting of the costophrenic angles. There are chest leads. There is some infiltrate at the lung ba ses. IMPRESSION: Congestive mild heart failure with bilateral pleural effusions and appears new compared t o old exam.
[2022-03-06 21:17] LABS: Albumin 3.2 g/dL (3.5-5.0); Calcium 7.8 mg/dL (8.4-10.2); Magnesium 1.6 mg/dL (1.6-2.3); Potassium 4.1 mmol/L (3.5-5.1); Total Bilirubin 0.3 mg/dL (0.2-1.3)
[2022-03-06 21:22] LABS: HGB 6.5 gm/dL (11.4-16.0)
[2022-03-06 21:23] LABS: HCT 19.3 % (34.0-46.0)
[2022-03-06] MEDS ORDERED: FUROSEMIDE 10 MG/ML 4 ML VIAL IV STA (21:28)
[2022-03-06 21:58] LABS: INR 1.2 (<1.2); Prothrombin Time 12.5 sec (9.0-12.0)
[2022-03-06 22:10] LABS: Partial Thromboplastin Time 20.9 sec (22.0-30.0)
[2022-03-06 23:14] LABS: Band Neutrophils % 4 %; Eosinophils # (M) 0.02 k/uL (0-0.7); Metamyelocytes # (M) 0.02 k/uL (0); Metamyelocytes % 1 %; Monocytes # (M) 0.08 k/uL (0-1.0); Neutrophils % (M) 71 %; Nucleated Red Blood Cells 0 /100 WBC (0-0); Total Cells Counted 200
[2022-03-06 23:15] LABS: Ovalocytes Present
[2022-03-06 23:16] LABS: Platelet Count 74 k/uL (150-450)
[2022-03-06] MEDS ORDERED: NALOXONE 0.4 MG/ML 1 ML VIAL IV PRN (23:18)
[2022-03-07 06:24] LABS: Glucose,Whole Blood 112 mg/dL (70-110)
[2022-03-07] MEDS ORDERED: ONDANSETRON ODT 4 MG TAB PO PRN (08:02)
[2022-03-07] MEDS ORDERED: NA PHOS,M-B/NA PHOS,DI-BA 133 ML ENEMA RECTAL PRN (08:02)
[2022-03-07] MEDS ORDERED: LOPERAMIDE 2 MG CAP PO PRN (08:02)
[2022-03-07] MEDS ORDERED: bisacodyL 10 MG SUPP RECTAL PRN (08:02)
[2022-03-07] MEDS ORDERED: MAGNESIUM HYDROXIDE 2,400 MG/10 ML CUP PO PRN (08:02)
[2022-03-07] MEDS ORDERED: hydrALAZINE HCL 25 MG TAB PO PRN (08:30)
[2022-03-07 08:32] LABS: Albumin 3.4 g/dL (3.5-5.0); Calcium 7.8 mg/dL (8.4-10.2); Magnesium 1.6 mg/dL (1.6-2.3); Phosphorus 4.1 mg/dL (2.5-4.5); Potassium 4.3 mmol/L (3.5-5.1); Total Protein 6.2 g/dL (6.3-8.2)
[2022-03-07 08:37] LABS: Anisocytosis Slight; HCT 30.8 % (34.0-46.0); Hypochromasia Moderate; MCH 33.2 pg (25.0-35.0); MCHC 34.6 g/dL (31.0-37.0); MCV 95.9 fL (80.0-100.0); Macrocytosis Slight; Platelet Count 64 k/uL (150-450); Poikilocytosis Moderate; RBC 3.21 m/uL (3.80-5.40); RDW 18.3 % (11.5-15.5); WBC 3.9 k/uL (3.8-10.6)
[2022-03-07 08:41] LABS: HGB 10.7 gm/dL (11.4-16.0)
[2022-03-07 08:53] LABS: Eosinophils # (M) 0.12 k/uL (0-0.7); Lymphocytes # (M) 0.62 k/uL (1.0-4.8); Metamyelocytes # (M) 0.08 k/uL (0); Metamyelocytes % 2 %; Monocytes # (M) 0.16 k/uL (0-1.0); Neutrophils # (M) 2.93 k/uL (1.3-7.7); Neutrophils % (M) 75 %; Nucleated Red Blood Cells 0 /100 WBC (0-0); Poikilocytosis (M) Present; Polychromasia Present; Total Cells Counted 100
[2022-03-07] MEDS: GABAPENTIN 100 MG CAP PO SCH ×4 (10:31→20:55)
[2022-03-07] MEDS: ACETAMINOPHEN TAB 325 MG TAB PO PRN ×2 (10:31→17:36)
[2022-03-07] MEDS: LINAGLIPTIN 5 MG TABLET PO SCH (10:31)
[2022-03-07] MEDS: FUROSEMIDE 40 MG TAB PO SCH (10:32)
[2022-03-07] MEDS: COLCHICINE 0.6 MG EACH PO SCH ×2 (10:32→18:55)
[2022-03-07] MEDS: CARBIDOPA-LEVODOPA 25-100 MG 1 EACH TAB PO SCH ×3 (10:32→20:55)
[2022-03-07] MEDS: APIXABAN 2.5 MG TABLET PO SCH ×2 (10:32→17:35)
[2022-03-07] MEDS: EZETIMIBE 10 MG TAB PO SCH (10:34)
[2022-03-07 11:35] LABS: Glucose,Whole Blood 128 mg/dL (70-110)
--- NOTE | 2022-03-07 12:10 | P.CNPUL ---
History of Present Illness Consult date: 03/07/22 Reason for consult: dyspnea History of present illness: I was asked to evaluate this 82-year-old female patient of the patient has history of COPD. The patient was hospitalized for increased shortness of breath and generalized weakness and the patient was hospitalized for the same earlier this month. She is known to have multiple medical problems and comorbidities. She has history of COPD, coronary artery disease with previous bypass surgery, history of paroxysmal atrial fibrillation, history of diastolic heart failure with an ejection fraction of 55-60%, hypertension, hyperlipidemia, type II [id number] diabetes mellitus, Parkinson's disease and chronic stage III kidney disease and episodic UTIs. The patient was in the hospital last week for dehydration due to diuretic intake and acute on top of chronic kidney injury. She was treated and she was discharged home. Hemoglobin at time of discharge was around 8.5. The patient comes in the hospital and that hemoglobin was at 6.5. The white cell count was at 2. Platelet count was 94 and this is obviously consistent with herbert cytopenia. I reviewed previous blood work on this patient and I note that the patient's white cell count has been persistently low. The platelets have been also persistently low with further interval dropped. The patient has had previous Covid 19 infection on 12/07/2021 and her most recent testing has been negative. Had also stool was positive on 12/09/2021. Her previous iron studies have been low from 2020 and a most recent iron study from 11/09/2021 was within normal limits. As for the renal function, the patient has chronic kidney disease. Her creatinine is stable at 1.69 for today. She does have a component of non-anion gap metabolic acidosis. She is currently on oxygen and she is on 2 L nasal cannula. The chest x-ray that was done at the time of admission showed some mild CHF with bilateral pleural effusions. The patient is currently received and got transfused with a total of 2 units of packed RBC and hemoglobin is currently up to 10.7. She is also on oxygen. She is on bronchodilators with DuoNeb nebulized treatments [id number] 4 times a day. She is on long-term and coagulation with Eliquis 2.5 mg by mouth daily. She is on oral Lasix 40 mg by mouth daily. She is on a routine home medications. The patient is a longterm resident. She is not a reliable historian. She has significant amount of body aches all over. No signs of any respiratory distress at rest. She is on 2 L O2 nasal cannula Review of Systems CONSTITUTIONAL: Denies fever or chills. Very poor historian, profound weakness, resting comfortably in bed. No signs of any respiratory distress. Very much debilitated, lethargic, she is a longterm resident for now. CARDIOVASCULAR: Denies chest pain, +chronic shortness of breath, no orthopnea, PND or palpitations. RESPIRATORY: Denies cough. GASTROINTESTINAL: Denies abdominal pain, diarrhea, constipation, nausea or vomiting. MUSCULOSKELETAL: Denies myalgias. NEUROLOGIC: Denies numbness, tingling or weakness. ENDOCRINE: Denies fatigue, weight change, polydipsia or polyurina. GENITOURINARY: Denies burning, hematuria or urgency with micturation. HEMATOLOGIC: Denies history of anemia or bleeding. Past Medical History Past Medical History: Atrial Fibrillation, Atrial Flutter, Coronary Artery Disease (CAD), Heart Failure, COPD, Diabetes Mellitus, GERD/Reflux, Hyperlipidemia, Hypertension, Myocardial Infarction (DC), Musculoskeletal Disorder, Renal Disease, Respiratory Disorder, Sleep Apnea/CPAP/BIPAP, Vascular Disorder Additional Past Medical History / Comment(s): NIDDM type II, neuropathy bilateral legs/feet, CKD stage III, nephrolithiasis, anemia, diastolic CHF, cardiac valve disease, pulmonary htn, home oxygen prn, afib/flutter with RVR, pt states she fell one year ago and suffered 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 Last Myocardial Infarction Date:: 1999 History of Any Multi-Drug Resistant Organisms: VRE Date of last positivie culture/infection: 11/06/21 MDRO Source:: Urine Past Surgical History: Appendectomy, Coronary Bypass/CABG, Heart Catheterization, Hysterectomy, Tonsillectomy Additional Past Surgical History / Comment(s): 1999 CABG 4 vessel, BETHEL/cardioversion, abdominal aortagrams/bilateral runoffs, R atherectomy/PTBA/stent to R SFA, R neck benign lymph node removed, cysto/lithotripsy/aborted d/t unable to visualize stone, EGD, colonoscopy Past Anesthesia/Blood Transfusion Reactions: Motion Sickness Additional Past Anesthesia/Blood Transfusion Reaction / Comment(s): Pt has motion sickness/clausterphobia. Past Psychological History: No Psychological Hx Reported Additional Psychological History / Comment(s): . Smoking Status: Former smoker Past Alcohol Use History: None Reported Additional Past Alcohol Use History / Comment(s): . Past Drug Use History: None Reported - Past Family History Brother(s) Family Medical History: Cancer Son(s) Family Medical History: Cancer, Myocardial Infarction (DC) Sister(s) Family Medical History: Cancer Mother Family Medical History: COPD, Myocardial Infarction (DC) Additional Family Medical History / Comment(s): mother of DC-pt cannot recall at what age. Medications and Allergies Home Medications Medication Instructions Recorded Confirmed Type Ezetimibe [Zetia] 10 mg PO DAILY@0800 11/20/13 03/06/22 History Lovastatin [Mevacor] 10 mg PO DAILY@1700 11/20/13 03/06/22 History Apixaban [Eliquis] 2.5 mg PO BID@0800,1700 02/17/20 03/06/22 History Cyanocobalamin [Vitamin B-12] 500 mcg PO DAILY@1700 02/17/20 03/06/22 History Ferrous Sulfate [Iron (65 MG 325 mg PO DAILY@1700 02/05/21 03/06/22 History Elemental)] Aspirin EC [Ecotrin Low Dose] 81 mg PO DAILY@1700 07/19/21 03/06/22 History Colchicine [Mitigare] 0.6 mg PO BID@0800,1700 07/19/21 03/06/22 History sitaGLIPtin [Januvia] 50 mg PO DAILY@0800 07/19/21 03/06/22 History Folic Acid 1 mg PO DAILY@1700 10/22/21 03/06/22 History Acetaminophen Tab [Tylenol] 650 mg PO Q4HR PRN 11/25/21 03/06/22 History hydrALAZINE HCL [Apresoline] 25 mg PO TID@0800,1400,2100 PRN 11/25/21 03/06/22 History Carbidopa-Levodopa 25-100 mg 1 tab PO TID@0800,1400,2100 12/09/21 03/06/22 History [Sinemet 25-100 mg] Shen/D3/Mag11/Zinc/Pvc Monitor/[place]/Bor 1 tab PO DAILY@1700 02/23/22 03/06/22 History [Caltrate 600+D Plus Tablet] Furosemide [Lasix] 40 mg PO DAILY@0800 03/06/22 03/06/22 History Gabapentin [Neurontin] 100 mg PO QID@08,12,17,21 03/06/22 03/06/22 History Loperamide HCl [Imodium A-D] 2 - 4 mg PO QID PRN MDD 8MG 03/06/22 03/06/22 History Magnesium Hydroxide [Milk of 7,200 mg PO DAILY PRN 03/06/22 03/06/22 History Magnesia Concentrate] Na Phos,M-B/Na Phos,Di-Ba [Fleet 133 ml RECTAL DAILY PRN 03/06/22 03/06/22 Hi story Adult] Ondansetron [Ondansetron Odt] 4 mg PO Q8H PRN 03/06/22 03/06/22 History bisacodyL [Dulcolax] 10 mg RECTAL DAILY PRN 03/06/22 03/06/22 History Allergies Allergy/AdvReac Type Severity Reaction Status Date / Time tuberculin, purified protein Allergy Per Saige Verified 03/06/22 20:59 deriva albuterol [From DuoNeb] AdvReac Nausea Verified 03/06/22 20:59 cortisone AdvReac PAIN Verified 03/06/22 20:59 hydrocodone AdvReac Nausea Verified 03/06/22 20:59 ipratropium [From DuoNeb] AdvReac Nausea Verified 03/06/22 20:59 procaine HCl [From Novocain] AdvReac pain Verified 03/06/22 20:59 allergy medicines AdvReac "dries me Uncoded 02/23/22 11:46 out, bloody noses,generalized pain" Physical Exam Vitals: Vital Signs Temp Pulse Pulse Resp BP BP Pulse Ox 03/07/22 06:40 97.7 F 58 L 16 143/74 98 03/07/22 04:13 97.6 F 64 18 142/63 98 03/07/22 03:53 97.5 F L 60 16 129/74 98 03/07/22 03:43 97.6 F 63 18 126/67 99 03/07/22 03:13 97.6 F 54 L 18 134/64 100 03/07/22 01:00 98.1 F 65 18 129/56 99 03/07/22 00:13 97.8 F 60 20 120/61 97 03/06/22 23:53 97.6 F 60 20 118/53 99 03/06/22 23:43 97.6 F 59 L 20 121/53 99 03/06/22 23:34 97.6 F 60 20 121/53 100 03/06/22 22:00 61 22 126/56 03/06/22 19:42 98.7 F 63 18 119/58 100 Intake and Output 03/06/22 03/07/22 03/07/22 22:59 06:59 14:59 Intake Total 620 118 Output Total 300 Balance 320 118 Intake: Oral 118 Blood Product 620 Rc As-1 Unit 310 [id number] Rc Irr As1 Unit 310 [id number] Output: Urine 300 Other: # Voids 1 Weight 77.111 kg 77.111 kg General: Nontoxic, no distress and appears stated age. She is currently on 2 L of oxygen by nasal cannula Derm: Skin warm and dry, normal coloration for ethnicity. Head: Atraumatic, normocephalic and symmetric. Eyes: EOMs intact, no lid lag, and anicteric sclera Mouth: no lip lesions, mucus membranes moist Cardiovascular: regular rate and rhythm with normal S1S2, systolic murmur, positive posterior tibial pulses bilaterally, and cap refill < 2 seconds. Lungs: Respirations even, regular, and unlabored on room air. Lungs CTA bilaterally, no rhonchi, no rales, no wheezing, and no accessory muscle usage. He'll contact in the lung bases bilaterally. Abdominal: soft, nontender to palpation, no guarding, no appreciable organomegaly Ext: ROM intact. No gross muscle atrophy, 1+ BLE edema, no contractures Neuro: Speech clear, face symmetrical and CN II-XII grossly intact with no noted focal neuro deficits, the patient has profound weakness, gait cannot be assessed, has some resting tremors, very unreliable historian. Psych: Alert and oriented to person, place, time, and situation. Appropriate and pleasant affect. Skin shows areas of skin excoriation in the sacral area. Results - Laboratory Findings CBC and BMP: 03/07/22 07:45 03/07/22 07:45 PT/INR, D-dimer PT 12.5 sec (9.0-12.0) H 03/06/22 20:52 INR 1.2 (<1.2) H 03/06/22 20:52 D-Dimer 6.09 mg/L FEU (<0.60) H 03/06/22 20:52 Abnormal lab findings: Abnormal Labs 03/06/22 03/06/22 03/06/22 20:23 20:23 20:52 WBC 2.0 L RBC 1.97 L Hgb 6.5 L* Hct 19.3 L* RDW 19.8 H Plt Count 74 L Lymphocytes # (Manual) 0.40 L Metamyelocytes # (Man) 0.02 H PT 12.5 H INR 1.2 H APTT 20.9 L D-Dimer 6.09 H Chloride 110 H Carbon Dioxide 18 L BUN 67 H Creatinine 1.76 H POC Glucose (mg/dL) Calcium 7.8 L Total Protein 6.0 L Albumin 3.2 L Crossmatch 03/06/22 03/07/22 03/07/22 21:58 06:23 07:45 WBC RBC 3.21 L Hgb 10.7 L D Hct 30.8 L RDW 18.3 H Plt Count 64 L Lymphocytes # (Manual) 0.62 L Metamyelocytes # (Man) 0.08 H PT INR APTT D-Dimer Chloride Carbon Dioxide BUN Creatinine POC Glucose (mg/dL) 112 H Calcium Total Protein Albumin Crossmatch See Detail 03/07/22 03/07/22 07:45 11:34 WBC RBC Hgb Hct RDW Plt Count Lymphocytes # (Manual) Metamyelocytes # (Man) PT INR APTT D-Dimer Chloride 111 H Carbon Dioxide 17 L BUN 64 H Creatinine 1.69 H POC Glucose (mg/dL) 128 H Calcium 7.8 L Total Protein 6.2 L Albumin 3.4 L Crossmatch Assessment and Plan Plan: Shortness of breath, multifactorial, chronic, and the patient's shortness of breath got worse as the patient got a hemoglobin down to 6.5, in combination with underlying COPD and some mild CHF. Chest x-ray showing some atelectatic changes in the lung bases bilaterally. Chronic hypoxic respiratory failure currently on 2 L of oxygen by nasal cannula Pancytopenia, consider myelodysplasia, will benefit from hematology oncology consultation Acute on chronic anemia with questionable GI blood loss as the patient the remote history of iron deficiency anemia with a positive occult blood in the stool. Patient is also on anticoagulants History of Parkinson's disease Chronic stage III kidney disease Hypertension Hyperlipidemia Diastolic heart failure with an infection of around 55-60% Sacral skin excoriation Paroxysmal atrial fibrillation. Her current cardiac rhythm is sinus. Plan Monitor hemoglobin and watch for any signs of GI bleed No indication for pneumonia COPD is chronic Offered DuoNeb about treatments when necessary Oxygen therapy Give another dose of Lasix 40 mg IV push 1 Oral bicarb Will follow.
[2022-03-07] MEDS ORDERED: FUROSEMIDE 10 MG/ML 4 ML VIAL IV STA ×2 (12:11→12:37)
--- NOTE | 2022-03-07 12:37 | P.CRDCN ---
History of Present Illness History of present illness: HISTORY OF PRESENTING ILLNESS Patient is pleasant 82-year-old female with history of CAD status post CABG, PVD status post previous stenting in January 2020, hypertension, atrial fibrillatio n, dyslipidemia, diabetes mellitus type 2, GERD, obstructive sleep apnea, bradycardia, previous tobacco abuse, Parkinson's disease who normally follows with Dr. Burnett. Patient has had multiple hospitalizations including gallbladder surgery, UTIs, sepsis, anemia, bradycardia. She states more recently she has been having increased shortness breath and fatigue which has been persistent. She admits to some chest burning sensation. She cannot describe if this feels similar to her prior bypass. Hemoglobin was noted to be low at 6.5 and therefore was transfused 2 units packed blood cells. She is normally on Eliquis 2.5 mg twice a day. Denies any hematochezia or melena. Creatinine 1.7 which appears to be at her baseline, does have metabolic acidosis with bicarb 18, proBNP 9700, troponin 0.018. Cardiology was consult if her CHF. She was given Lasix 1 yesterday and transition to oral Lasix. He admits she has had very poor appetite. EKG shows sinus rhythm, normal axis, T-wave flattening, no significant ST abnormalities. Chest x-ray shows bilateral pleural effusions new compared to prior and mild congestive heart failure. REVIEW OF SYSTEMS At the time of my exam: CONSTITUTIONAL: Denies fever or chills. CARDIOVASCULAR: Denies chest pain, +chronic shortness of breath, no orthopnea, PND or palpitations. RESPIRATORY: Denies cough. GASTROINTESTINAL: Denies abdominal pain, diarrhea, constipation, nausea or vomiting. MUSCULOSKELETAL: Denies myalgias. NEUROLOGIC: Denies numbness, tingling or weakness. ENDOCRINE: Denies fatigue, weight change, polydipsia or polyurina. GENITOURINARY: Denies burning, hematuria or urgency with micturation. HEMATOLOGIC: Denies history of anemia or bleeding. PHYSICAL EXAMINATION Vital signs reviewed. CONSTITUTIONAL: No apparent distress, chronically ill appearing HEENT: Head is normocephalic. Pupils are equal, round. Sclerae anicteric. Mucous membranes of the mouth are moist. No JVD. No carotid bruit. CHEST EXAMINATION: Lungs are clear to auscultation. No chest wall tenderness is noted on palpation or with deep breathing. HEART EXAMINATION: Regular rate and rhythm. S1, S2 heard. No murmurs, gallops or rub. ABDOMEN: Soft, nontender. Positive bowel sounds. EXTREMITIES: 2+ peripheral pulses, 1+ lower extremity edema and no calf te nderness. NEUROLOGIC EXAMINATION: Patient is awake, alert. ASSESSMENT 1. Generalized weakness and lower extremity weakness 2. Symptomatic anemia 3. CAD status post CABG 4. PAD status post stenting January 2020 5. Hypertension 6. Persistent atrial fibrillation 7. Diabetes mellitus type 2 8. Hyperlipidemia 9. Urinary tract infection 10. Pancytopenia 11. Parkinson's 12. Former tobacco abuse 13. Atypical chest pain 14. Bilateral pleural effusions and pulmonary vascular congestion. Possibly some component of heart failure PLAN Patient with multiple admissions for has had significant anemia status post 2 units packed red blood cells. She does have complex presentation with multiple medical comorbidities. May be some component of heart failure and we will monitor diuretics however has been having worsening creatinine and some failure to thrive. One more day of IV diuretics and monitor response. Prognosis guarded. Past Medical History Past Medical History: Atrial Fibrillation, Atrial Flutter, Coronary Artery Disease (CAD), Heart Failure, COPD, Diabetes Mellitus, GERD/Reflux, Hyperlipidemia, Hypertension, Myocardial Infarction ([place]), Musculoskeletal Disorder, Renal Disease, Respiratory Disorder, Sleep Apnea/CPAP/BIPAP, Vascular Disorder Additional Past Medical History / Comment(s): NIDDM type II, neuropathy bilateral legs/feet, CKD stage III, nephrolithiasis, anemia, diastolic CHF, cardiac valve disease, pulmonary htn, home oxygen prn, afib/flutter with RVR, pt states she fell one year ago and suffered 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 Last Myocardial Infarction Date:: 1999 History of Any Multi-Drug Resistant Organisms: VRE Date of last positivie culture/infection: 11/06/21 MDRO Source:: Urine Past Surgical History: Appendectomy, Coronary Bypass/CABG, Heart Catheterization, Hysterectomy, Tonsillectomy Additional Past Surgical History / Comment(s): 1999 CABG 4 vessel, BETHEL/cardioversion, abdominal aortagrams/bilateral runoffs, R at herectomy/PTBA/stent to R SFA, R neck benign lymph node removed, cysto/lithotripsy/aborted d/t unable to visualize stone, EGD, colonoscopy Past Anesthesia/Blood Transfusion Reactions: Motion Sickness Additional Past Anesthesia/Blood Transfusion Reaction / Comment(s): Pt has motion sickness/clausterphobia. Past Psychological History: No Psychological Hx Reported Additional Psychological History / Comment(s): . Smoking Status: Former smoker Past Alcohol Use History: None Reported Additional Past Alcohol Use History / Comment(s): . Past Drug Use History: None Reported - Past Family History Brother(s) Family Medical History: Cancer Son(s) Family Medical History: Cancer, Myocardial Infarction ([place]) Sister(s) Family Medical History: Cancer Mother Family Medical History: COPD, Myocardial Infarction ([place]) Additional Family Medical History / Comment(s): mother of [place]-pt cannot recall at what age. Medications and Allergies Home Medications Medication Instructions Recorded Confirmed Type Ezetimibe [Zetia] 10 mg PO DAILY@0800 11/20/13 03/06/22 History Lovastatin [Mevacor] 10 mg PO DAILY@1700 11/20/13 03/06/22 History Apixaban [Eliquis] 2.5 mg PO BID@0800,1700 02/17/20 03/06/22 History Cyanocobalamin [Vitamin B-12] 500 mcg PO DAILY@1700 02/17/20 03/06/22 History Ferrous Sulfate [Iron (65 MG 325 mg PO DAILY@1700 02/05/21 03/06/22 History Elemental)] Aspirin EC [Ecotrin Low Dose] 81 mg PO DAILY@1700 07/19/21 03/06/22 History Colchicine [Mitigare] 0.6 mg PO BID@0800,1700 07/19/21 03/06/22 History sitaGLIPtin [Januvia] 50 mg PO DAILY@0800 07/19/21 03/06/22 History Folic Acid 1 mg PO DAILY@1700 10/22/21 03/06/22 History Acetaminophen Tab [Tylenol] 650 mg PO Q4HR PRN 11/25/21 03/06/22 History hydrALAZINE HCL [Apresoline] 25 mg PO TID@0800,1400,2100 PRN 11/25/21 03/06/22 History Carbidopa-Levodopa 25-100 mg 1 tab PO TID@0800,1400,2100 12/09/21 03/06/22 History [Sinemet 25-100 mg] Shen/D3/Mag11/Zinc/Mold Insert Changer/[place]/Bor 1 tab PO DAILY@1700 02/23/22 03/06/22 History [Caltrate 600+D Plus Tablet] Furosemide [Lasix] 40 mg PO DAILY@0800 03/06/22 03/06/22 History Gabapentin [Neurontin] 100 mg PO QID@08,12,17,03/06/22 03/06/22 History Loperamide HCl [Imodium A-D] 2 - 4 mg PO QID PRN MDD 8MG 03/06/22 03/06/22 History Magnesium Hydroxide [Milk of 7,200 mg PO DAILY PRN 03/06/22 03/06/22 History Magnesia Concentrate] Na Phos,M-B/Na Phos,Di-Ba [Fleet 133 ml RECTAL DAILY PRN 03/06/22 03/06/22 History Adult] Ondansetron [Ondansetron Odt] 4 mg PO Q8H PRN 03/06/22 03/06/22 History bisacodyL [Dulcolax] 10 mg RECTAL DAILY PRN 03/06/22 03/06/22 History Allergies Allergy/AdvReac Type Severity Reaction Status Date / Time tuberculin, purified protein Allergy Per Saige Verified 03/06/22 20:59 deriva albuterol [From DuoNeb] AdvReac Nausea Verified 03/06/22 20:59 cortisone AdvReac PAIN Verified 03/06/22 20:59 hydrocodone AdvReac Nausea Verified 03/06/22 20:59 ipratropium [From DuoNeb] AdvReac Nausea Verified 03/06/22 20:59 procaine HCl [From Novocain] AdvReac pain Verified 03/06/22 20:59 allergy medicines AdvReac "dries me Uncoded 02/23/22 11:46 out, bloody noses,generalized pain" Physical Exam Vitals: Vital Signs Temp Pulse Pulse Resp BP BP Pulse Ox 03/07/22 06:40 97.7 F 58 L 16 143/74 98 03/07/22 04:13 97.6 F 64 18 142/63 98 03/07/22 03:53 97.5 F L 60 16 129/74 98 03/07/22 03:43 97.6 F 63 18 126/67 99 03/07/22 03:13 97.6 F 54 L 18 134/64 100 03/07/22 01:00 98.1 F 65 18 129/56 99 03/07/22 00:13 97.8 F 60 20 120/61 97 03/06/22 23:53 97.6 F 60 20 118/53 99 03/06/22 23:43 97.6 F 59 L 20 121/53 99 03/06/22 23:34 97.6 F 60 20 121/53 100 03/06/22 22:00 61 22 126/56 03/06/22 19:42 98.7 F 63 18 119/58 100 Intake and Output 03/06/22 03/07/22 03/07/22 22:59 06:59 14:59 Intake Total 620 118 Output Total 300 Balance 320 118 Intake: Oral 118 Blood Product 620 Rc As-1 Unit 310 [id number] Rc Irr As1 Unit 310 [id number] Output: Urine 300 Other: # Voids 1 Weight 77.111 kg 77.111 kg Results 03/07/22 07:45 03/07/22 07:45 Cardiac Enzymes 03/06/22 03/06/22 03/07/22 Range/Units 20:23 20:23 07:45 AST 27 28 (14-36) U/L Troponin I 0.018 (0.000-0.034) ng/mL Coagulation 03/06/22 Range/Units 20:52 PT 12.5 H (9.0-12.0) sec APTT 20.9 L (22.0-30.0) sec CBC 03/06/22 03/07/22 Range/Units 20:23 07:45 WBC 2.0 L 3.9 (3.8-10.6) k/uL RBC 1.97 L 3.21 L (3.80-5.40) m/uL Hgb 6.5 L* 10.7 L D (11.4-16.0) gm/dL Hct 19.3 L* 30.8 L (34.0-46.0) % Plt Count 74 L 64 L (150-450) k/uL Comprehensive Metabolic Panel 03/06/22 03/07/22 Range/Units 20:23 07:45 Sodium 137 139 (137-145) mmol/L Potassium 4.1 4.3 (3.5-5.1) mmol/L Chloride 110 H 111 H (98-107) mmol/L Carbon Dioxide 18 L 17 L (22-30) mmol/L BUN 67 H 64 H (7-17) mg/dL Creatinine 1.76 H 1.69 H (0.52-1.04) mg/dL Glucose 97 90 (74-99) mg/dL Calcium 7.8 L 7.8 L (8.4-10.2) mg/dL AST 27 28 (14-36) U/L ALT 8 7 (4-34) U/L Alkaline Phosphatase 119 118 (38-126) U/L Total Protein 6.0 L 6.2 L (6.3-8.2) g/dL Albumin 3.2 L 3.4 L (3.5-5.0) g/dL Current Medications Generic Name Dose Route Start Last Admin Trade Name Daneq PRN Reason Stop Dose Admin Acetaminophen 650 mg 03/07/22 08:02 03/07/22 10:31 Acetaminophen Tab 325 Mg Tab PO 650 mg Q4HR PRN Administration Fever and/ or Pain Apixaban 2.5 mg 03/07/22 08:30 03/07/22 10:32 Apixaban 2.5 Mg Tablet PO 2.5 mg BID@0800,1700 [facility] Administration Protocol Aspirin 81 mg 03/07/22 17:00 Aspirin 81 Mg PO DAILY@1700 [facility] Atorvastatin Calcium 10 mg 03/07/22 17:00 Atorvastatin 10 Mg Tab PO DAILY@1700 [facility] Bisacodyl 10 mg 03/07/22 08:02 Bisacodyl 10 Mg Supp RECTAL DAILY PRN Constipation Calcium Carbonate 1 each 03/07/22 17:00 Calcium Carb-Vit D 500 Mg-5 Mcg Tab PO DAILY@1700 [facility] Carbidopa/Levodopa 1 each 03/07/22 08:30 03/07/22 10:32 Carbidopa-Levodopa 25-100 Mg 1 Each Tab PO 1 each TID@0800,1400,2100 [facility] Administration Colchicine 0.6 mg 03/07/22 08:30 03/07/22 10:32 Colchicine 0.6 Mg Each PO 0.6 mg BID@0800,1700 [facility] Administration Cyanocobalamin 500 mcg 03/07/22 17:00 Cyanocobalamin 500 Mcg Tab PO DAILY@1700 [facility] Ezetimibe 10 mg 03/07/22 08:30 03/07/22 10:34 Ezetimibe 10 Mg Tab PO 10 mg DAILY@0800 [facility] Administration Ferrous Sulfate 325 mg 03/07/22 17:00 Ferrous Sulfate 325 Mg Tab PO DAILY@1700 [facility] Folic Acid 1 mg 03/07/22 17:00 Folic Acid 1 Mg Tab PO DAILY@1700 [facility] Furosemide 40 mg 03/07/22 08:00 03/07/22 10:32 Furosemide 40 Mg Tab PO 40 mg DAILY@0800 [facility] Administration Gabapentin 100 mg 03/07/22 08:30 03/07/22 11:32 Gabapentin 100 Mg Cap PO Not Given QID@08,12,17,21 [facility] Hydralazine HCl 25 mg 03/07/22 08:30 Hydralazine Hcl 25 Mg Tab PO TID@0800,1400,2100 PRN Hold for SBP > 125 Linagliptin 5 mg 03/07/22 08:30 03/07/22 10:31 Linagliptin 5 Mg Tablet PO 5 mg DAILY@0800 [facility] Administration Loperamide HCl 4 mg 03/07/22 08:02 Loperamide 2 Mg Cap PO QID PRN Diarrhea Magnesium Hydroxide 7,200 mg 03/07/22 08:02 Magnesium Hydroxide 2,400 Mg/10 Ml Cup PO DAILY PRN Constipation Morphine Sulfate 4 mg 03/06/22 23:18 Morphine Sulfate 4 Mg/Ml Syringe IV Q4HR PRN Severe Pain (Scale 7 to 10) Naloxone HCl 0.2 mg 03/06/22 23:18 Naloxone 0.4 Mg/Ml 1 Ml Vial IV Q2M PRN Opioid Reversal Ondansetron HCl 4 mg 03/06/22 23:18 Ondansetron 4 Mg/2 Ml Vial IVP Q8HR PRN Nausea And Vomiting Ondansetron HCl 4 mg 03/07/22 08:02 Ondansetron Odt 4 Mg Tab PO Q8H PRN Nausea Sodium Bicarbonate 650 mg 03/08/22 09:00 Sodium Bicarbonate Tab 650 Mg Tab PO DAILY [facility] Sodium Biphosphate/Sodium Phosphate 133 ml 03/07/22 08:02 Na Phos,M-B/Na Phos,Di-Ba 133 Ml Enema RECTAL DAILY PRN Constipation Intake and Output 03/06/22 03/07/22 03/07/22 22:59 06:59 14:59 Intake Total 620 118 Output Total 300 Balance 320 118 Intake: Oral 118 Blood Product 620 Rc As-1 Unit 310 [id number] Rc Irr As1 Unit 310 [id number] Output: Urine 300 Other: # Voids 1 Weight 77.111 kg 77.111 kg 03/07/22 07:45 03/07/22 07:45
[2022-03-07] MEDS ORDERED: IPRATROPIUM-ALBUTEROL 3 ML NEB INHALATION PRN (15:02)
--- NOTE | 2022-03-07 15:08 | P.HPIM ---
History of Present Illness H&P Date: 03/07/22 Chief Complaint: anemia Patient is a 82-year-old chronically ill with multiple medical comorbidities presenting from care home with Chronic anemia. She has a history of COPD, CAD, paroxysmal A. fib, heart failure with preserved ejection fraction, hyperte nsion, dyslipidemia, type 2 diabetes, Parkinson's disease, and CKD3. She was recently discharged on 02/27/22 after being admitted for generalized weakness and dehydration on daily diuretic use, acute kidney injury and failure to thrive. She claims that since discharge she is been feeling about the same. However, she gets weekly labs at the nursing facility. One of her lab work showed worsening anemia. She claims that she does have shortness of breath, no worsening. She occasionally gets left-sided chest pain as well. She is also complaining of occasional generalized abdominal pain. She denies any nausea, vomiting, diarrhea, constipation, or urinary complaints. She denies any smoking , alcohol use, or illicit drug use. She claims that she has not been out of bed and walking for the last 2 weeks. On initial presentation her vital signs were within normal limits, she was saturating well on 2 L nasal cannula. Her laboratory workup showed pancytopenia, hemoglobin of 6.5. MCV was 98.4. Renal function and baseline. ProBNP at 9700. Chest x-ray showed congestion, bilateral pleural effusion. EKG showed normal sinus rhythm. Patient was given 2 units of packed red blood cells as well as IV diuretics. Patient seen and examined at bedside. Pertinent positives and negatives as discussed in HPI, a complete review of systems was performed and all other systems are negative. Vital signs reviewed General: nontoxic, no distress, appears at stated age, chronically ill-appearing Derm: warm, dry Head: atraumatic, normocephalic, symmetric Eyes: EOMI, no lid lag, anicteric sclera, pupils equal round reactive to light ENT: Nose and ears atraumatic Neck: No thyromegaly, supple Mouth: no lip lesion, mucus membranes moist Cardiovascular: S1S2 reg, no murmur, no edema Lungs: clear to auscultation bilateral, no rhonchi, no rales, no wheeze, no accessory muscle use, 2 L supplemental oxygen Abdominal: soft, nontender to palpation, no guarding, no appreciable organomegaly Ext: no gross muscle atrophy, muscle strength muscle strength 4 out of 5 in 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, no contractures Neuro: CN II-XII grossly intact Psych: Alert, oriented, appropriate affect Assessment/Plan: Acute and chronic symptomatic anemia Pancytopenia -No active blood loss -Status post 2 units of PRBCs -Prior iron studies, thyroid function test, B12, folic acid levels were normal -Possibly related to bone marrow suppression, myelodysplastic syndrome on diff erential given high MCV -Reticulocyte count pending Acute on chronic shortness of breath, likely multifactorial Possible diastolic CHF exacerbation -Cardiology consulted -IV diuretics, no switched to oral -I's and O's, daily weights COPD, not in exacerbation - Pulmonology following -Bronchodilators if patient wheezing Chronic medical conditions Paroxysmal atrial fibrillation CAD Parkinson's disease Diabetes Chronic kidney disease -Medications reviewed and reconciled The patient is admitted with an anticipated greater than 2 midnight stay for evaluation of symptomatic anemia. Surrogate decision-maker: Has power of hospitalist CODE STATUS: Full code DVT prophylaxis: On Eliquis Anticipated discharge date: 03/[address]: Back to care home A total of 58 minutes was spent on the care of this complex patient more than 50% of the time was spent in counseling and care coordination. Past Medical History Past Medical History: Atrial Fibrillation, Atrial Flutter, Coronary Artery Disease (CAD), Heart Failure, COPD, Diabetes Mellitus, GERD/Reflux, Hyperlipidemia, Hypertension, Myocardial Infarction (ID), Musculoskeletal Disorder, Renal Disease, Respiratory Disorder, Sleep Apnea/CPAP/BIPAP, Vascular Disorder Additional Past Medical History / Comment(s): NIDDM type II, neuropathy bilateral legs/feet, CKD stage III, nephrolithiasis, anemia, diastolic CHF, cardiac valve disease, pulmonary htn, home oxygen prn, afib/flutter with RVR, pt states she fell one year ago and suffered head injury that led to parkinson's disease, FALLS, PAD, bilateral lower extremitty ichthyosis, divertucykar dise ase, benign colon polyps, constipation, occasional dysphagia, gout, back pain, osteoporosis, covid + 02/2021, bilateral cataracts. Last Myocardial Infarction Date:: 1999 History of Any Multi-Drug Resistant Organisms: VRE Date of last positivie culture/infection: 11/06/21 MDRO Source:: Urine Past Surgical History: Appendectomy, Coronary Bypass/CABG, Heart Catheterization, Hysterectomy, Tonsillectomy Additional Past Surgical History / Comment(s): 1999 CABG 4 vessel, BETHEL/cardioversion, abdominal aortagrams/bilateral runoffs, R atherectomy/PTBA/stent to R SFA, R neck benign lymph node removed, cysto/lithotripsy/aborted d/t unable to visualize stone, EGD, colonoscopy Past Anesthesia/Blood Transfusion Reactions: Motion Sickness Additional Past Anesthesia/Blood Transfusion Reaction / Comment(s): Pt has motion sickness/clausterphobia. Past Psychological History: No Psychological Hx Reported Additional Psychological History / Comment(s): . Smoking Status: Former smoker Past Alcohol Use History: None Reported Additional Past Alcohol Use History / Comment(s): . Past Drug Use History: None Reported - Past Family History Brother(s) Family Medical History: Cancer Son(s) Family Medical History: Cancer, Myocardial Infarction (ID) Sister(s) Family Medical History: Cancer Mother Family Medical History: COPD, Myocardial Infarction (ID) Additional Family Medical History / Comment(s): mother of ID-pt cannot recall at what age. Medications and Allergies Home Medications Medication Instructions Recorded Confirmed Type Ezetimibe [Zetia] 10 mg PO DAILY@0800 11/20/13 03/06/22 History Lovastatin [Mevacor] 10 mg PO DAILY@1700 11/20/13 03/06/22 History Apixaban [Eliquis] 2.5 mg PO BID@0800,1700 02/17/20 03/06/22 History Cyanocobalamin [Vitamin B-12] 500 mcg PO DAILY@169902/17/20 03/06/22 History Ferrous Sulfate [Iron (65 MG 325 mg PO DAILY@169902/05/21 03/06/22 History Elemental)] Aspirin EC [Ecotrin Low Dose] 81 mg PO DAILY@1700 07/19/21 03/06/22 History Colchicine [Mitigare] 0.6 mg PO BID@0800,169907/19/21 03/06/22 History sitaGLIPtin [Januvia] 50 mg PO DAILY@0800 07/19/21 03/06/22 History Folic Acid 1 mg PO DAILY@1700 10/22/21 03/06/22 History Acetaminophen Tab [Tylenol] 650 mg PO Q4HR PRN 11/25/21 03/06/22 History hydrALAZINE HCL [Apresoline] 25 mg PO TID@0800,1400,2100 PRN 11/25/21 03/06/22 History Carbidopa-Levodopa 25-100 mg 1 tab PO TID@0800,1400,2100 12/09/21 03/06/22 History [Sinemet 25-100 mg] Shne/D3/Mag11/Zinc/Hull Line Crew Member/[place]/Bor 1 tab PO DAILY@1700 02/23/22 03/06/22 History [Caltrate 600+D Plus Tablet] Furosemide [Lasix] 40 mg PO DAILY@0800 03/06/22 03/06/22 History Gabapentin [Neurontin] 100 mg PO QID@08,12,,03/06/22 03/06/22 History Loperamide HCl [Imodium A-D] 2 - 4 mg PO QID PRN MDD 8MG 03/06/22 03/06/22 History Magnesium Hydroxide [Milk of 7,200 mg PO DAILY PRN 03/06/22 03/06/22 History Magnesia Concentrate] Na Phos,M-B/Na Phos,Di-Ba [Fleet 133 ml RECTAL DAILY PRN 03/06/22 03/06/22 History Adult] Ondansetron [Ondansetron Odt] 4 mg PO Q8H PRN 03/06/22 03/06/22 History bisacodyL [Dulcolax] 10 mg RECTAL DAILY PRN 03/06/22 03/06/22 History Allergies Allergy/AdvReac Type Severity Reaction Status Date / Time tuberculin, purified protein Allergy Per [place] Verified 03/06/22 20:59 deriva albuterol [From DuoNeb] AdvReac Nausea Verified 03/06/22 20:59 cortisone AdvReac PAIN Verified 03/06/22 20:59 hydrocodone AdvReac Nausea Verified 03/06/22 20:59 ipratropium [From DuoNeb] AdvReac Nausea Verified 03/06/22 20:59 procaine HCl [From Novocain] AdvReac pain Verified 03/06/22 20:59 allergy medicines AdvReac "dries me Uncoded 02/23/22 11:46 out, bloody noses,generalized pain" Physical Exam Vitals: Vital Signs Temp Pulse Pulse Resp BP BP Pulse Ox 03/07/22 11:30 97.9 F 62 18 152/78 98 03/07/22 09:50 98.1 F 62 18 165/66 98 03/07/22 06:40 97.7 F 58 L 16 143/74 98 03/07/22 04:13 97.6 F 64 18 142/63 98 03/07/22 03:53 97.5 F L 60 16 129/74 98 03/07/22 03:43 97.6 F 63 18 126/67 99 03/07/22 03:13 97.6 F 54 L 18 134/64 100 03/07/22 01:00 98.1 F 65 18 129/56 99 03/07/22 00:13 97.8 F 60 20 120/61 97 03/06/22 23:53 97.6 F 60 20 118/53 99 03/06/22 23:43 97.6 F 59 L 20 121/53 99 03/06/22 23:34 97.6 F 60 20 121/53 100 03/06/22 22:00 61 22 126/56 03/06/22 19:42 98.7 F 63 18 119/58 100 Intake and Output 03/07/22 03/07/22 03/07/22 06:59 14:59 22:59 Intake Total 620 236 Output Total 300 Balance 320 236 Intake: Oral 236 Blood Product 620 Rc As-1 Unit 310 [id number] Rc Irr As1 Unit 310 [id number] Output: Urine 300 Other: Voiding Method External Catheter # Voids 1 Weight 77.111 kg 71 kg Results CBC & Chem 7: 03/07/22 07:45 03/07/22 07:45 Labs: Abnormal Lab Results - Last 24 Hours (Table) 03/06/22 03/06/22 03/06/22 Range/Units 20:23 20:23 20:52 WBC 2.0 L (3.8-10.6) k/uL RBC 1.97 L (3.80-5.40) m/uL Hgb 6.5 L* (11.4-16.0) gm/dL Hct 19.3 L* (34.0-46.0) % RDW 19.8 H (11.5-15.5) % Plt Count 74 L (150-450) k/uL Lymphocytes # (Manual) 0.40 L (1.0-4.8) k/uL Metamyelocytes # (Man) 0.02 H (0) k/uL PT 12.5 H (9.0-12.0) sec INR 1.2 H (<1.2) APTT 20.9 L (22.0-30.0) sec D-Dimer 6.09 H (<0.60) mg/L FEU Chloride 110 H (98-107) mmol/L Carbon Dioxide 18 L (22-30) mmol/L BUN 67 H (7-17) mg/dL Creatinine 1.76 H (0.52-1.04) mg/dL POC Glucose (mg/dL) (70-110) mg/dL Calcium 7.8 L (8.4-10.2) mg/dL Total Protein 6.0 L (6.3-8.2) g/dL Albumin 3.2 L (3.5-5.0) g/dL Crossmatch 03/06/22 03/07/22 03/07/22 Range/Units 21:58 06:23 07:45 WBC (3.8-10.6) k/uL RBC 3.21 L (3.80-5.40) m/uL Hgb 10.7 L D (11.4-16.0) gm/dL Hct 30.8 L (34.0-46.0) % RDW 18.3 H (11.5-15.5) % Plt Count 64 L (150-450) k/uL Lymphocytes # (Manual) 0.62 L (1.0-4.8) k/uL Metamyelocytes # (Man) 0.08 H (0) k/uL PT (9.0-12.0) sec INR (<1.2) APTT (22.0-30.0) sec D-Dimer (<0.60) mg/L FEU Chloride (98-107) mmol/L Carbon Dioxide (22-30) mmol/L BUN (7-17) mg/dL Creatinine (0.52-1.04) mg/dL POC Glucose (mg/dL) 112 H (70-110) mg/dL Calcium (8.4-10.2) mg/dL Total Protein (6.3-8.2) g/dL Albumin (3.5-5.0) g/dL Crossmatch See Detail 03/07/22 03/07/22 Range/Units 07:45 11:34 WBC (3.8-10.6) k/uL RBC (3.80-5.40) m/uL Hgb (11.4-16.0) gm/dL Hct (34.0-46.0) % RDW (11.5-15.5) % Plt Count (150-450) k/uL Lymphocytes # (Manual) (1.0-4.8) k/uL Metamyelocytes # (Man) (0) k/uL PT (9.0-12.0) sec INR (<1.2) APTT (22.0-30.0) sec D-Dimer (<0.60) mg/L FEU Chloride 111 H (98-107) mmol/L Carbon Dioxide 17 L (22-30) mmol/L BUN 64 H (7-17) mg/dL Creatinine 1.69 H (0.52-1.04) mg/dL POC Glucose (mg/dL) 128 H (70-110) mg/dL Calcium 7.8 L (8.4-10.2) mg/dL Total Protein 6.2 L (6.3-8.2) g/dL Albumin 3.4 L (3.5-5.0) g/dL Crossmatch Thrombosis Risk Factor Assmnt - Choose All That Apply Any of the Below Risk Factors Present?: Yes Each Factor Represents 1 point: Abnormal pulmonary function (COPD), Medical pt on bed rest, Obesity (BMI >25), Swollen legs (current) Each Risk Factor Represents 3 Points: Age 75 years or older Thrombosis Risk Factor Assessment Total Risk Factor Score: 7 Thrombosis Risk Factor Assessment Level: High Risk
[2022-03-07 16:40] LABS: Glucose,Whole Blood 167 mg/dL (70-110)
[2022-03-07] MEDS: ASPIRIN 81 MG PO SCH (17:36)
[2022-03-07] MEDS: CYANOCOBALAMIN 500 MCG TAB PO SCH (18:55)
[2022-03-07] MEDS: FERROUS SULFATE 325 MG TAB PO SCH (18:55)
[2022-03-07] MEDS: FOLIC ACID 1 MG TAB PO SCH (18:55)
[2022-03-07] MEDS: ATORVASTATIN 10 MG TAB PO SCH (18:55)
[2022-03-07] MEDS: CALCIUM CARB-VIT D 500 MG-5 MCG TAB PO SCH (18:55)
[2022-03-07 20:31] LABS: Glucose,Whole Blood 109 mg/dL (70-110)
[2022-03-08 06:15] LABS: Glucose,Whole Blood 108 mg/dL (70-110)
[2022-03-08] MEDS: CARBIDOPA-LEVODOPA 25-100 MG 1 EACH TAB PO SCH ×3 (08:34→21:27)
[2022-03-08] MEDS: COLCHICINE 0.6 MG EACH PO SCH ×2 (08:34→16:30)
[2022-03-08] MEDS: SODIUM BICARBONATE TAB 650 MG TAB PO SCH (08:34)
[2022-03-08] MEDS: APIXABAN 2.5 MG TABLET PO SCH ×2 (08:34→16:30)
[2022-03-08] MEDS: FUROSEMIDE 40 MG TAB PO SCH (08:34)
[2022-03-08] MEDS: LINAGLIPTIN 5 MG TABLET PO SCH (08:34)
[2022-03-08] MEDS: EZETIMIBE 10 MG TAB PO SCH (08:34)
[2022-03-08] MEDS: GABAPENTIN 100 MG CAP PO SCH ×4 (08:34→21:27)
[2022-03-08 10:14] LABS: Anisocytosis Slight; HCT 29.2 % (34.0-46.0); HGB 10.1 gm/dL (11.4-16.0); Hypochromasia Slight; MCH 31.9 pg (25.0-35.0); MCHC 34.4 g/dL (31.0-37.0); MCV 92.6 fL (80.0-100.0); Mean Platelet Volume 12.6; Poikilocytosis Moderate; RBC 3.16 m/uL (3.80-5.40); RDW 18.2 % (11.5-15.5); Reticulocyte % 0.4 % (0.5-2.0); WBC 2.3 k/uL (3.8-10.6)
[2022-03-08 10:17] LABS: Potassium 3.9 mmol/L (3.5-5.1)
[2022-03-08 10:18] LABS: Platelet Count 57 k/uL (150-450)
[2022-03-08 11:43] LABS: Glucose,Whole Blood 126 mg/dL (70-110)
[2022-03-08 12:27] LABS: Eosinophils # (M) 0.05 k/uL (0-0.7); Lymphocytes # (M) 0.25 k/uL (1.0-4.8); Monocytes # (M) 0.28 k/uL (0-1.0); Neutrophils # (M) 1.73 k/uL (1.3-7.7); Neutrophils % (M) 75 %; Nucleated Red Blood Cells 0 /100 WBC (0-0); Total Cells Counted 100
--- NOTE | 2022-03-08 13:17 | FL ---
EXAMINATION TYPE: FL barium swallow w video DATE OF EXAM: 03/08/2022 MODIFIED SWALLOW / DEGLUTITION STUDY CLINICAL HISTORY: Dysphagia. TECHNIQUE: Deglutition study is performed utilizing thin liquid barium, honey and nectar thick liqui d barium, barium thick applesauce, and barium coated cracker. 2 minutes 14 seconds of fluoro time an d 0 images obtained. COMPARISON: None. FINDINGS: The oral and pharyngeal phases show satisfactory initiation and propagation with all modali ties tested. Satisfactory mastication is seen with solid modalities tested. There is no evidence of penetration or aspiration with any modality tested. Moderate pharyngeal residue was appreciated with more viscous modalities. Proximal esophagus shows ingested barium suggesting severe stasis and/or ach alasia. Further workup and follow-up advised. IMPRESSION: No penetration or aspiration observed. Please refer to speech therapist notes for furthe r details if necessary.
[2022-03-08] MEDS: CALCIUM CARB-VIT D 500 MG-5 MCG TAB PO SCH (13:41)
[2022-03-08] MEDS: FOLIC ACID 1 MG TAB PO SCH (13:41)
[2022-03-08] MEDS: CYANOCOBALAMIN 500 MCG TAB PO SCH (13:41)
[2022-03-08] MEDS: FERROUS SULFATE 325 MG TAB PO SCH (13:41)
[2022-03-08] MEDS: ONDANSETRON 4 MG/2 ML VIAL IVP PRN (14:36)
--- NOTE | 2022-03-08 15:11 | P.PN ---
Subjective Progress Note Date: 03/08/22 HISTORY OF PRESENTING ILLNESS Patient is pleasant 82-year-old female with history of CAD status post CABG, PVD status post previous stenting in January 2020, hypertension, atrial fibrillation, dyslipidemia, diabetes mellitus type 2, GERD, obstructive sleep apnea, bradycardia, previous tobacco abuse, Parkinson's disease who normally follows with Dr. Burnett. Patient has had multiple hospitalizations including gallbladder surgery, UTIs, sepsis, anemia, bradycardia. She states more recently she has been having increased shortness breath and fatigue which has been persistent. She admits to some chest burning sensation. She cannot describe if this feels similar to her prior bypass. Hemoglobin was noted to be low at 6.5 and therefore was transfused 2 units packed blood cells. She is normally on Eliquis 2.5 mg twice a day. Denies any hematochezia or melena. Creatinine 1.7 which appears to be a t her baseline, does have metabolic acidosis with bicarb 18, proBNP 9700, troponin 0.018. Cardiology was consult if her CHF. She was given Lasix 1 yesterday and transition to oral Lasix. He admits she has had very poor appetite. EKG shows sinus rhythm, normal axis, T-wave flattening, no significant ST abnormalities. Chest x-ray shows bilateral pleural effusions new compared to prior and mild congestive heart failure. 03/08 Patient has many generalized complaints stating that she is not feeling well. She is complaining of pain and discomfort in her feet and also tenderness in her right lower quadrant. Currently she denies any chest pain but states she did have some earlier and the left upper anterior area. Blood pressure 156/68. She is on Lasix 40 mg oral daily and did receive 1 dose of IV 40 mg yesterday. She has had good urine output with external female catheter in place. Also documented improvement in her weight from 77 kg to 71 kg. PHYSICAL EXAMINATION Vital signs reviewed. CONSTITUTIONAL: No apparent distress, chronically ill appearing HEENT: Head is normocephalic. Pupils are equal, round. Sclerae anicteric. Mucous membranes of the mouth are moist. No JVD. No carotid bruit. CHEST EXAMINATION: Lungs are clear to auscultation. No chest wall tenderness is noted on palpation or with deep breathing. HEART EXAMINATION: Regular rate and rhythm. S1, S2 heard. No murmurs, gallops or rub. ABDOMEN: Soft, nontender. Positive bowel sounds. EXTREMITIES: 2+ peripheral pulses, 1+ lower extremity edema and no calf tenderness. NEUROLOGIC EXAMINATION: Patient is awake, alert. ASSESSMENT 1. Generalized weakness and lower extremity weakness 2. Symptomatic anemia 3. CAD status post CABG 4. PAD status post stenting January 2020 5. Hypertension 6. Persistent atrial fibrillation 7. Diabetes mellitus type 2 8. Hyperlipidemia 9. Urinary tract infection 10. Pancytopenia 11. Parkinson's 12. Former tobacco abuse 13. Atypical chest pain 14. Bilateral pleural effusions and pulmonary vascular congestion. Possibly some component of heart failure PLAN Patient with multiple admissions for has had significant anemia status post 2 units packed red blood cells. She does have complex presentation with multiple medical comorbidities. May be some component of heart failure and we will monitor diuretics however has been having worsening creatinine and some failure to thrive. Continue oral Lasix 40 mg daily, monitor I&O, daily weights, I's and renal fun ction. Continue patient on atorvastatin 10 mg daily Further recommendations based upon the patient's progress. Nurse practitioner note has been reviewed, I agree with documented findings and plan of care. Patient was seen and examined. Objective - Vital Signs Vital signs: Vital Signs Temp 98.0 F 03/08/22 08:24 Pulse 69 03/08/22 08:24 Resp 16 03/08/22 08:24 BP 156/68 03/08/22 08:24 Pulse Ox 97 03/08/22 08:24 FiO2 28 03/07/22 19:36 Intake & Output 03/07/22 03/08/22 03/08/22 18:59 06:59 18:59 Intake Total 236 Output Total 900 350 850 Balance -881 -431 -706 Weight 71 kg Intake: Oral 236 Output: Urine 900 350 850 Straight 900 Other: Voiding Method External Catheter External Catheter - Labs CBC & Chem 7: 03/08/22 09:43 03/08/22 09:43 Labs: Abnormal Lab Results - Last 24 Hours (Table) 03/07/22 03/07/22 Range/Units 11:34 16:35 POC Glucose (mg/dL) 128 H 167 H (70-110) mg/dL Microbiology - Last 24 Hours (Table) 03/06/22 20:50 Blood Culture - Preliminary Blood No Growth after 24 hours 03/06/22 20:23 Blood Culture - Preliminary Blood No Growth after 24 hours
--- NOTE | 2022-03-08 15:28 | P.PN ---
Subjective Progress Note Date: 03/08/22 Hospital course: Patient is a very pleasant 82-year-old female with a past medical history of CAD status post CABG, atrial fibrillation on anticoagulation with Eliquis, chronic diastolic CHF, COPD, HTN, HLD, CKD IIIb, type II diabetes mellitus, and Parkinson's disease. She presented to the ED on 03/07/22 with a chief complaint of acute on chronic anemia. Patient was sent from [facility] after having a weekly routine lab drawn which showed worsening anemia. Patient was recently discharged on 02/27/22 after being admitted for generalized weakness and dehydration on daily diuretic use, acute kidney injury and failure to thrive. She claimed that since discharge she had been feeling about the same. However, she gets weekly labs at the nursing facility. One of her lab work showed worsening anemia and she was sent to the hospital for evaluation. Upon arrival to the emergency department, patient underwent full evaluation. CBC completed revealing pancytopenia with WBC count of 2.0, hemoglobin 6.5, and platelet count of 74. Patient's baseline hemoglobin is around 8. Troponin 0.018 and pro-BMP of 9730. BMP did reveal slightly elevated renal function with BUN 67, creatinine 1.76, and GFR of 26 with baseline creatinine of 1.4. EKG was completed showing sinus rhythm at 62 bpm. Chest x-ray consistent with congestive mild heart failure with bilateral pleural effusions. Patient was transfused with 2 units PRBCs and started on IV diuresis with Lasix. She was admitted under our services. Physical exam: Patient seen and fully evaluated at bedside this morning. Patient reports feeling unchanged and denies having new complaints this morning. RN at bedside reports that patient was having difficulty swallowing overnight in a speech and language pathologist consult was placed. Patient has had a total of 1250 mL of urinary output over the past 24 hours. Vital signs reviewed and stable. General: Nontoxic, no distress and chronically ill-appearing. Derm: Skin warm and dry, normal coloration for ethnicity. Head: Atraumatic, normocephalic and symmetric. Eyes: EOMs intact, no lid lag, and anicteric sclera Mouth: no lip lesions, mucus membranes moist Cardiovascular: regular rate and rhythm with normal S1S2, systolic murmur, positive posterior tibial pulses bilaterally, and cap refill < 2 seconds. Lungs: Respirations even, regular, and unlabored on room air. Lungs coarse di ffuse rhonchi bilaterally. No accessory muscle usage. Abdominal: soft, nontender to palpation, no guarding, no appreciable organomegaly Ext: ROM intact. No gross muscle atrophy, no edema, no contractures Neuro: Speech clear, face symmetrical and CN II-XII grossly intact with no noted focal neuro deficits Psych: Alert and oriented to person, place, time, and situation. Appropriate and pleasant affect. Assessment and Plan of Care: Acute on chronic symptomatic anemia Pancytopenia -No active blood loss -Status post 2 units of PRBCs, hemoglobin stable at 10.7 -Prior iron studies, thyroid function test, B12, folic acid levels were normal -Possibly related to bone marrow suppression, myelodysplastic syndrome on differential given high MCV -Reticulocyte count slightly low at 0.4% Acute on chronic shortness of breath, likely multifactorial Acute on chronic diastolic heart failure exacerbation -Cardiology consulted -Lasix 40 mg by mouth twice a day -I's and O's, daily weights -Continue telemetry monitoring -Close monitoring of renal function and electrolytes while diuresing. Dysphasia -Swallow eval completed. -Patient was evaluated by speech and language pathologist recommending further evaluation for concerns of Zenker's diverticulum. -Seasonal Customer Service Associate consulted -Diet changed to pured diet -Aspiration precautions COPD, not in exacerbation -Pulmonology following -Bronchodilators if patient wheezing Chronic medical conditions Paroxysmal atrial fibrillation CAD Parkinson's disease Diabetes Chronic kidney disease -Medications reviewed and reconciled CODE STATUS: Full code DVT prophylaxis: Eliquis Anticipated discharge date: Clinical course to determine Anticipated discharge place: Back to residential A total of 36 minutes was spent on the care of this complex patient more than 50% of the time was spent in counseling and care coordination. Rl Woodward NP rendered care for this patient independently, reviewed the findings and plan as documented in the note above. I did not physically speak with or examine the patient on this date. Objective - Vital Signs Vital signs: Vital Signs Temp 98.0 F 03/07/22 23:46 Pulse 64 03/08/22 04:47 Resp 18 03/08/22 04:47 BP 138/67 03/08/22 04:47 Pulse Ox 96 03/08/22 04:47 FiO2 28 03/07/22 19:36 Intake & Output 03/07/22 03/08/22 03/08/22 18:59 06:59 18:59 Intake Total 236 Output Total 900 350 Balance -664 -350 Weight 71 kg Intake: Oral 236 Output: Urine 900 350 Straight 900 Other: Voiding Method External Catheter External Catheter - Labs CBC & Chem 7: 03/08/22 09:43 03/08/22 09:43 Labs: Abnormal Lab Results - Last 24 Hours (Table) 03/07/22 03/07/22 03/07/22 Range/Units 07:45 07:45 11:34 RBC 3.21 L (3.80-5.40) m/uL Hgb 10.7 L D (11.4-16.0) gm/dL Hct 30.8 L (34.0-46.0) % RDW 18.3 H (11.5-15.5) % Plt Count 64 L (150-450) k/uL Lymphocytes # (Manual) 0.62 L (1.0-4.8) k/uL Metamyelocytes # (Man) 0.08 H (0) k/uL Chloride 111 H (98-107) mmol/L Carbon Dioxide 17 L (22-30) mmol/L BUN 64 H (7-17) mg/dL Creatinine 1.69 H (0.52-1.04) mg/dL POC Glucose (mg/dL) 128 H (70-110) mg/dL Calcium 7.8 L (8.4-10.2) mg/dL Total Protein 6.2 L (6.3-8.2) g/dL Albumin 3.4 L (3.5-5.0) g/dL 03/07/22 Range/Units 16:35 RBC (3.80-5.40) m/uL Hgb (11.4-16.0) gm/dL Hct (34.0-46.0) % RDW (11.5-15.5) % Plt Count (150-450) k/uL Lymphocytes # (Manual) (1.0-4.8) k/uL Metamyelocytes # (Man) (0) k/uL Chloride (98-107) mmol/L Carbon Dioxide (22-30) mmol/L BUN (7-17) mg/dL Creatinine (0.52-1.04) mg/dL POC Glucose (mg/dL) 167 H (70-110) mg/dL Calcium (8.4-10.2) mg/dL Total Protein (6.3-8.2) g/dL Albumin (3.5-5.0) g/dL Microbiology - Last 24 Hours (Table) 03/06/22 20:50 Blood Culture - Preliminary Blood No Growth after 24 hours 03/06/22 20:23 Blood Culture - Preliminary Blood No Growth after 24 hours
--- NOTE | 2022-03-08 16:04 | P.PN ---
Subjective Progress Note Date: 03/08/22 Principal diagnosis: Shortness of breath, multifactorial, secondary to anemia and underlying COPD with mild congestive heart failure I was asked to evaluate this 82-year-old female patient of the patient has history of COPD. The patient was hospitalized for increased shortness of breath and generalized weakness and the patient was hospitalized for the same earlier this month. She is known to have multiple medical problems and comorbidities. She has history of COPD, coronary artery disease with previous bypass surgery, history of paroxysmal atrial fibrillation, history of diastolic heart failure with an ejection fraction of 55-60%, hypertension, hyperlipidemia, type II adp-lppposo-bwlpvdyrz diabetes mellitus, Parkinson's disease and chronic stage III kidney disease and episodic UTIs. The patient was in the hospital last week for dehydration due to diuretic intake and acute on top of chronic kidney injury. She was treated and she was discharged home. Hemoglobin at time of discharge was around 8.5. The patient comes in the hospital and that hemoglobin was at 6.5. The white cell count was at 2. Platelet count was 94 and this is obviously consistent with herbert cytopenia. I reviewed previous blood work on this patient and I note that the patient's white cell count has been persistently low. The platelets have been also persistently low with further interval dropped. The patient has had previous Covid 19 infection on 12/07/2021 and her most recent testing has been negative. Had also stool was positive on 12/09/2021. Her previous iron studies have been low from 2020 and a most recent iron study from 11/09/2021 was within normal limits. As for the renal function, the patient has chronic kidney disease. Her creatinine is stable at 1.69 for today. She does have a component of non-anion gap metabolic acidosis. She is currently on oxygen and she is on 2 L nasal cannula. The chest x-ray that was done at the time of admission showed some mild CHF with bilateral pleural effusions. The patient is currently received and got transfused with a total of 2 units of packed RBC and hemoglobin is currently up to 10.7. She is also on oxygen. She is on bronchodilators with DuoNeb nebulized treatments [id number] 4 times a day. She is on long-term and coagulation with Eliquis 2.5 mg by mouth daily. She is on oral Lasix 40 mg by mouth daily. She is on a routine home medications. The patient is a retirement resident. She is not a reliable historian. She has significant amount of body aches all over. No signs of any respiratory distress at rest. She is on 2 L O2 nasal cannula Reevaluated today on 03/08/22, patient is feeling a bit better, nonetheless she remains very generally weak. Hardly any cough no wheezing no fever no chills no hemoptysis. Patient is on 2 L nasal cannula, and her O2 sats is 96%. Hemoglobin today is 10.1, electrolytes are normal however her BUN is 59 and creatinine 1.46. Patient received a total of 2 units of packed RBCs since admission. Patient did receive IV Lasix yesterday, and she was transitioned to oral Lasix today. Chest x-ray on admission did show evidence of bilateral pleural effusions consistent with mild CHF. BNP level was quite high at 9730. Objective - Vital Signs Vital signs: Vital Signs Temp 98.0 F 03/08/22 08:24 Pulse 57 L 03/08/22 13:17 Resp 16 03/08/22 11:45 BP 131/72 03/08/22 11:45 Pulse Ox 96 03/08/22 11:45 FiO2 28 03/07/22 19:36 Intake & Output 03/07/22 03/08/22 03/08/22 18:59 06:59 18:59 Intake Total 236 Output Total 900 350 850 Balance -664 -350 -850 Weight 71 kg Intake: Oral 236 Output: Urine 900 350 850 Straight 900 Other: Voiding Method External Catheter External Catheter External Catheter # Bowel Movements 1 - Exam Physical Exam: Revealed an 82-year-old female looks chronically ill. On 2 L nasal cannula. Head: Atraumatic, normocephalic. HEENT:[Neck is supple.] [No neck masses.] [No thyromegaly.] [No JVD.] Chest: [Symmetrical chest expansion minimal crackles at the bases no rhonchi and no wheezes Cardiac Exam: [Normal S1 and S2, no S3 gallop, no murmur.] Abdomen: [Soft, nontender, no megaly, no rebound, no guarding, normal bowel sounds.] Extremities: [No clubbing, 1+ bipedal edema, no cyanosis.] Neurological Exam: [No focal neurologic deficit.] Psychiatric: Normal mood affect and normal mental status examination. Skin: No rashes. - Labs CBC & Chem 7: 03/08/22 09:43 03/08/22 09:43 Labs: Abnormal Lab Results - Last 24 Hours (Table) 03/07/22 03/08/22 03/08/22 Range/Units 16:35 09:43 09:43 WBC 2.3 L (3.8-10.6) k/uL RBC 3.16 L (3.80-5.40) m/uL Hgb 10.1 L (11.4-16.0) gm/dL Hct 29.2 L (34.0-46.0) % RDW 18.2 H (11.5-15.5) % Plt Count 57 L (150-450) k/uL Lymphocytes # (Manual) 0.25 L (1.0-4.8) k/uL Retic Count 0.4 L (0.5-2.0) % Sodium 136 L (137-145) mmol/L BUN 59 H (7-17) mg/dL Creatinine 1.46 H (0.52-1.04) mg/dL Glucose 108 H (74-99) mg/dL POC Glucose (mg/dL) 167 H (70-110) mg/dL Calcium 8.0 L (8.4-10.2) mg/dL 03/08/22 Range/Units 11:41 WBC (3.8-10.6) k/uL RBC (3.80-5.40) m/uL Hgb (11.4-16.0) gm/dL Hct (34.0-46.0) % RDW (11.5-15.5) % Plt Count (150-450) k/uL Lymphocytes # (Manual) (1.0-4.8) k/uL Retic Count (0.5-2.0) % Sodium (137-145) mmol/L BUN (7-17) mg/dL Creatinine (0.52-1.04) mg/dL Glucose (74-99) mg/dL POC Glucose (mg/dL) 126 H (70-110) mg/dL Calcium (8.4-10.2) mg/dL Microbiology - Last 24 Hours (Table) 03/06/22 20:50 Blood Culture - Preliminary Blood No Growth after 24 hours 03/06/22 20:23 Blood Culture - Preliminary Blood No Growth after 24 hours Assessment and Plan Assessment: Impression: Symptomatic anemia, chronic in nature. Shortness of breath, multifactorial mostly secondary to anemia, atrial fibrillation, and congestive heart failure, diastolic in nature. Previous echocardiogram showed preserved LV function. Ejection fraction of 55% Chronic hypoxic respiratory maintaining on home oxygen at 2 L/m. History of underlying COPD. Chronic kidney disease stage III History of Parkinson's disease Possible myelodysplasia Sacral skin excoriation Chronic diastolic heart failure Paroxysmal atrial fibrillation Recommendation: Continue present treatment plan Continue diuretics Continue bronchodilators Continue oral bicarb Continue updrafts Continue oxygen and titrate accordingly We'll continue to follow Time with Patient: Less than 30
[2022-03-08] MEDS: ATORVASTATIN 10 MG TAB PO SCH (16:30)
[2022-03-08] MEDS: ASPIRIN 81 MG PO SCH (16:30)
[2022-03-08 17:15] LABS: Glucose,Whole Blood 150 mg/dL (70-110)
[2022-03-08 20:41] LABS: Glucose,Whole Blood 111 mg/dL (70-110)
[2022-03-08] MEDS: MORPHINE SULFATE 4 MG/ML SYRINGE IV PRN (23:27)
[2022-03-09 06:15] LABS: Glucose,Whole Blood 109 mg/dL (70-110)
[2022-03-09] MEDS: APIXABAN 2.5 MG TABLET PO SCH (08:03)
[2022-03-09] MEDS: EZETIMIBE 10 MG TAB PO SCH (08:03)
[2022-03-09] MEDS: SODIUM BICARBONATE TAB 650 MG TAB PO SCH (08:03)
[2022-03-09] MEDS: GABAPENTIN 100 MG CAP PO SCH ×4 (08:03→21:20)
[2022-03-09] MEDS: FUROSEMIDE 40 MG TAB PO SCH (08:03)
[2022-03-09] MEDS: COLCHICINE 0.6 MG EACH PO SCH ×2 (08:03→16:40)
[2022-03-09] MEDS: CARBIDOPA-LEVODOPA 25-100 MG 1 EACH TAB PO SCH ×3 (08:03→21:21)
[2022-03-09] MEDS: LINAGLIPTIN 5 MG TABLET PO SCH (08:03)
--- NOTE | 2022-03-09 08:25 | XR ---
EXAMINATION TYPE: XR chest 1V portable DATE OF EXAM: 03/09/2022 COMPARISON: 03/07/2022 INDICATION: Congestive heart failure TECHNIQUE: Single frontal view of the chest is obtained. FINDINGS: The heart size is enlarged. The pulmonary vasculature is stable. Mild left lower lobe infiltrate is present. Minimal effusions may be present. IMPRESSION: 1. Clinical correlation recommended for mild congestive heart failure. Findings are stable from arvind rison. Continued follow-up is recommended.
--- NOTE | 2022-03-09 09:15 | P.CONS ---
History of Present Illness - Reason for Consult Consult date: 03/09/22 Goals of care Requesting physician: Sol Mcnamara - Chief Complaint Shortness of breath - History of Present Illness The patient is a 82-year-old female who presented to the emergency room on 03/06/22 with shortness of breath. She has multiple comorbidities and has had frequent hospitalizations She has a past medical history significant for anemia, COPD, CAD, paroxysmal A. fib, heart failure with preserved ejection fraction, hypertension, dyslipidemia, type 2 diabetes, Parkinson's disease, and CKD3. She was recently discharged on 02/27/22 after being admitted for g eneralized weakness and dehydration on daily diuretic use, acute kidney injury and failure to thrive. Upon arrival to the emergency department, patient underwent full evaluation. CBC completed revealing pancytopenia with WBC count of 2.0, hemoglobin 6.5, and platelet count of 74. Patient's baseline hemoglobin is around 8. Troponin 0.018 and pro-BMP of 9730. BMP did reveal slightly elevated renal function with BUN 67, creatinine 1.76, and GFR of 26 with baseline creatinine of 1.4. EKG was completed showing sinus rhythm at 62 bpm. Chest x-ray consistent with congestive mild heart failure with bilateral pleural effusions. Patient was transfused with 2 units PRBCs and started on IV diuresis with Lasix. She is also complaining of occasional generalized abdominal pain. She occasionally gets left-sided chest pain as well. She denied any nausea, vomiting, diarrhea, constipation, or urinary complaints. She denies any smoking, alcohol use, or illicit drug use. She claims that she has not been out of bed and walking for the last 2 weeks. Review of Systems Constitutional: Reports as per HPI Past Medical History Past Medical History: Atrial Fibrillation, Atrial Flutter, Coronary Artery Dise ase (CAD), Heart Failure, COPD, Diabetes Mellitus, GERD/Reflux, Hyperlipidemia, Hypertension, Myocardial Infarction (LA), Musculoskeletal Disorder, Renal Disease, Respiratory Disorder, Sleep Apnea/CPAP/BIPAP, Vascular Disorder Additional Past Medical History / Comment(s): NIDDM type II, neuropathy bilateral legs/feet, CKD stage III, nephrolithiasis, anemia, diastolic CHF, cardiac valve disease, pulmonary htn, home oxygen prn, afib/flutter with RVR, pt states she fell one year ago and suffered 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 Last Myocardial Infarction Date:: 1999 History of Any Multi-Drug Resistant Organisms: VRE Year Discovered:: 11/06/21 MDRO Source:: Urine Past Surgical History: Appendectomy, Coronary Bypass/CABG, Heart Cathete rization, Hysterectomy, Tonsillectomy Additional Past Surgical History / Comment(s): 1999 CABG 4 vessel, BETHEL/cardioversion, abdominal aortagrams/bilateral runoffs, R atherecto my/PTBA/stent to R SFA, R neck benign lymph node removed, cysto/lithotripsy/aborted d/t unable to visualize stone, EGD, colonoscopy Past Anesthesia/Blood Transfusion Reactions: Motion Sickness Additional Past Anesthesia/Blood Transfusion Reaction / Comm: Pt has motion sickness/clausterphobia. Past Psychological History: No Psychological Hx Reported Additional Psychological History / Comment(s): . Smoking Status: Former smoker Past Alcohol Use History: None Reported Additional Past Alcohol Use History / Comment(s): . Past Drug Use History: None Reported - Past Family History Brother(s) Family Medical History: Cancer Son(s) Family Medical History: Cancer, Myocardial Infarction (LA) Sister(s) Family Medical History: Cancer Mother Family Medical History: COPD, Myocardial Infarction (LA) Additional Family Medical History / Comment(s): mother of LA-pt cannot recall at what age. Medications and Allergies Home Medications Medication Instructions Recorded Confirmed Type Ezetimibe [Zetia] 10 mg PO DAILY@0800 11/20/13 03/06/22 History Lovastatin [Mevacor] 10 mg PO DAILY@1700 11/20/13 03/06/22 History Apixaban [Eliquis] 2.5 mg PO BID@0800,1700 02/17/20 03/06/22 History Cyanocobalamin [Vitamin B-12] 500 mcg PO DAILY@1700 02/17/20 03/06/22 History Ferrous Sulfate [Iron (65 MG 325 mg PO DAILY@1700 02/05/21 03/06/22 History Elemental)] Aspirin EC [Ecotrin Low Dose] 81 mg PO DAILY@1700 07/19/21 03/06/22 History Colchicine [Mitigare] 0.6 mg PO BID@0800,1700 07/19/21 03/06/22 History sitaGLIPtin [Januvia] 50 mg PO DAILY@0800 07/19/21 03/06/22 History Folic Acid 1 mg PO DAILY@1700 10/22/21 03/06/22 History Acetaminophen Tab [Tylenol] 650 mg PO Q4HR PRN 11/25/21 03/06/22 History hydrALAZINE HCL [Apresoline] 25 mg PO TID@0800,1400,2100 PRN 11/25/21 03/06/22 History Carbidopa-Levodopa 25-100 mg 1 tab PO TID@0800,1400,2100 12/09/21 03/06/22 History [Sinemet 25-100 mg] Shen/D3/Mag11/Zinc/Solar Field Service Technician/[place]/Bor 1 tab PO DAILY@1700 02/23/22 03/06/22 History [Caltrate 600+D Plus Tablet] Furosemide [Lasix] 40 mg PO DAILY@0800 03/06/22 03/06/22 History Gabapentin [Neurontin] 100 mg PO QID@08,12,17,03/06/22 03/06/22 History Loperamide HCl [Imodium A-D] 2 - 4 mg PO QID PRN MDD 8MG 03/06/22 03/06/22 History Magnesium Hydroxide [Milk of 7,200 mg PO DAILY PRN 03/06/22 03/06/22 History Magnesia Concentrate] Na Phos,M-B/Na Phos,Di-Ba [Fleet 133 ml RECTAL DAILY PRN 03/06/22 03/06/22 History Adult] Ondansetron [Ondansetron Odt] 4 mg PO Q8H PRN 03/06/22 03/06/22 History bisacodyL [Dulcolax] 10 mg RECTAL DAILY PRN 03/06/22 03/06/22 History Allergies Allergy/AdvReac Type Severity Reaction Status Date / Time tuberculin, purified protein Allergy Per Saige Verified 03/06/22 20:59 deriva albuterol [From DuoNeb] AdvReac Nausea Verified 03/06/22 20:59 cortisone AdvReac PAIN Verified 03/06/22 20:59 hydrocodone AdvReac Nausea Verified 03/06/22 20:59 ipratropium [From DuoNeb] AdvReac Nausea Verified 03/06/22 20:59 procaine HCl [From Novocain] AdvReac pain Verified 03/06/22 20:59 allergy medicines AdvReac "dries me Uncoded 02/23/22 11:46 out, bloody noses,generalized pain" Physical Exam Vitals: Vital Signs Temp Pulse Resp BP Pulse Ox 03/09/22 04:00 97.2 F L 63 18 142/68 96 03/09/22 02:00 62 03/09/22 00:16 62 18 134/72 95 03/08/22 20:00 97.4 F L 62 18 142/54 95 03/08/22 15:05 97.5 F L 65 18 148/58 96 03/08/22 13:17 57 L 03/08/22 11:45 57 L 16 131/72 96 03/08/22 08:24 98.0 F 69 16 156/68 97 Intake and Output 03/08/22 03/09/22 03/09/22 22:59 06:59 14:59 Output Total 400 450 Balance -400 -450 Output: Urine 400 450 Other: Voiding Method External Catheter External Catheter Weight 63 kg General: . Chronically ill appearing Appears stated age. Appears short of breath. HEENT: Head is atraumatic, normocephalic. CV: Heart regular in rate and rhythm positive S1 and S2. Lungs:Diminished throughout with crackles to bilateral bases.Respirations labored. On 4L NC. Abdomen/GI: Soft. + abdominal tenderness. : No suprapubic tenderness. Musculoskeletal/ Extremities: No gross atrophy. + generalized weakness Vascular: +1 LE edema Skin: Warm and dry Neurologic: Awake, alert and oriented times 3. CN II-XII grossly intact. No focal deficits. Psychiatric: Flat affect Results CBC & Chem 7: 03/08/22 09:43 03/08/22 09:43 Labs: Abnormal Lab Results - Last 24 Hours (Table) 03/08/22 03/08/22 03/08/22 Range/Units 09:43 09:43 11:41 WBC 2.3 L (3.8-10.6) k/uL RBC 3.16 L (3.80-5.40) m/uL Hgb 10.1 L (11.4-16.0) gm/dL Hct 29.2 L (34.0-46.0) % RDW 18.2 H (11.5-15.5) % Plt Count 57 L (150-450) k/uL Lymphocytes # (Manual) 0.25 L (1.0-4.8) k/uL Retic Count 0.4 L (0.5-2.0) % Sodium 136 L (137-145) mmol/L BUN 59 H (7-17) mg/dL Creatinine 1.46 H (0.52-1.04) mg/dL Glucose 108 H (74-99) mg/dL POC Glucose (mg/dL) 126 H (70-110) mg/dL Calcium 8.0 L (8.4-10.2) mg/dL 03/08/22 03/08/22 Range/Units 17:14 20:37 WBC (3.8-10.6) k/uL RBC (3.80-5.40) m/uL Hgb (11.4-16.0) gm/dL Hct (34.0-46.0) % RDW (11.5-15.5) % Plt Count (150-450) k/uL Lymphocytes # (Manual) (1.0-4.8) k/uL Retic Count (0.5-2.0) % Sodium (137-145) mmol/L BUN (7-17) mg/dL Creatinine (0.52-1.04) mg/dL Glucose (74-99) mg/dL POC Glucose (mg/dL) 150 H 111 H (70-110) mg/dL Calcium (8.4-10.2) mg/dL Microbiology - Last 24 Hours (Table) 03/06/22 20:50 Blood Culture - Preliminary Blood No Growth after 48 hours 03/06/22 20:23 Blood Culture - Preliminary Blood No Growth after 48 hours Chest x-ray: report reviewed Assessment and Plan Assessment: Symptoms * Pain - 7/10 abdominal pain. Continue Morphine, Tylenol, and Neurotin * Fatigue - + generalized weakness, fatigue, and debility. Continue PT/OT and Fesol * SOB - + sob at rest. Currently on 4L NC. Continue Lasix * Insomnia - No * N/V - Occasional, Continue Zofran prn * Anxiety - No * Depression - No * Confusion -No * Agitation - Yes - mild * Hallucinations - No * Appetite/weight loss - Decreased appetite, no recent weight loss * Dysphagia - Yes, BIOLOGY MANAGER consulted, swallow eval done. Continue dysphagia level I pured diet and aspiration precautions * Constipation - yes, continue Dulcolax and milk of magnesia and Fleet enema as needed. LBM 03/08 * Incontinence - yes, external catheter in placed * Itch - no * Cough - no Plan: Summary/Goals - Upon entering the room the patient was resting in bed and appeared short of breath. The GI EHS ENGINEER was present and explaining to the patient that they would like to scope her tomorrow to help determine if she has a GI bleed. The patient is agreeable to having a scope tomorrow, however she voiced that she does want a feeding tube placed. CODE STATUS was addressed with the patient who immediately became agitated. She stated she was tired of everyone asking the same questions. It was explained to her that we only want to honor her wishes. CODE STATUS was explained in detail to the patient. She kept saying "I don't know". I explained to her that in this case she would remain a full code which would include chest compressions, cardioversion, and being placed on a ventilator if her heart were to stop. She shrugged her shoulders and closed her eyes. A optical laboratory manager came in to draw some blood and she again was irritated. I told her that her healthcare moving forward is entirely in her hands. She can make decisions for herself and choose to continue with aggressive treatment or head down a comfort pathway. She said that she doesn't want to talk anymore. She stated she just wants to sleep and asked me to leave. I told her I would call her POA who is her brother, Farhan, and update him. She rolled her eyes and shrugged her shoulders. I told her that I would follow up with her tomorrow after her scope with GI. Attempted to reach Farhan via telephone, but it went straight to voice mail. Left message requesting callback. Recommendations - TBD Advanced Directives - On file Code Status - Full Code Thank you for this consultation Kimberly Cheema [facility] [id number] Email: [email or web address] Time with Patient: Greater than 30
[2022-03-09 09:26] LABS: Anisocytosis Slight; HCT 29.3 % (34.0-46.0); HGB 10.2 gm/dL (11.4-16.0); Hypochromasia Slight; MCH 33.2 pg (25.0-35.0); MCHC 34.6 g/dL (31.0-37.0); MCV 95.8 fL (80.0-100.0); Macrocytosis Slight; Mean Platelet Volume 12.6; Poikilocytosis Moderate; RBC 3.06 m/uL (3.80-5.40); RDW 18.4 % (11.5-15.5); WBC 1.8 k/uL (3.8-10.6)
[2022-03-09 09:28] LABS: Platelet Count 47 k/uL (150-450)
[2022-03-09 09:40] LABS: Albumin 3.4 g/dL (3.5-5.0); Calcium 8.2 mg/dL (8.4-10.2); Magnesium 1.6 mg/dL (1.6-2.3); Potassium 3.3 mmol/L (3.5-5.1); Total Bilirubin 0.7 mg/dL (0.2-1.3); Total Protein 6.3 g/dL (6.3-8.2)
[2022-03-09] MEDS: ONDANSETRON 4 MG/2 ML VIAL IVP PRN (10:35)
[2022-03-09] MEDS ORDERED: POTASSIUM CHLORIDE ER 20 MEQ TAB.ER PO STA (10:58)
[2022-03-09] MEDS ORDERED: Potassium Replacement Protocol 1 EACH MISC MISCELLANE PRN (11:07)
--- NOTE | 2022-03-09 11:12 | P.CONS ---
History of Present Illness - Reason for Consult Consult date: 03/09/22 dysphagia Requesting physician: Rl Woodward - Chief Complaint Shortness of breath - History of Present Illness This is an 82-year-old female who presented to the emergency department 3 days ago with complaints of shortness of breath. She has a past medical history including atrial fibrillation, atrial flutter, coronary artery disease heart failure, COPD, diabetes mellitus, hyperlipidemia, hypertension, renal disease, and vascular disorder.apparently patient has reported difficulty with swallowing and that food gets stuck in her throat/esophagus, she admits to weight loss although she is on sure of how much and states that this has been going on for at least one month duration. gastroenterology was consulted for dysphagia.Patient is having a very difficult time talking to me and is at best whispering, making it difficult to obtain history and review of systems. Patient denies any recent EGD or colonoscopy. Patient also came in with anemia with a hemoglobin of 6.5 on admission and was given 2 units of blood transfusion. Patient's last EGD colonoscopy was 01/23/2014for workup for anemia. EGD showed mild gastritis and colonoscopy showed polyps status post polypectomy and moderate diverticulosis. during this hospitalization the patient was seen by speech therapy and underwent a modified barium swallow that reported there appears to be a Zenker's diverticulum as well as impaired peristalsis in the proximal esophagus which could not be effectively cleared with a liquid wash however there was no aspiration or penetration observed. There was concern for the Zenker's diverticulum and significant stasis/dysmotility of the proximal esophagus. Recommendation of further evaluation with esophagram or EGD. Patient denies any abdominal pain, nausea or vomiting. She states that she does have dark stool but they are not black and it's related to iron that she has been taking. Review of Systems REVIEW OF SYSTEMS: CARDIOPULMONARY: No chest pain, patient has chronic shortness of breath. Gastrointestinal: No abdominal pain. No nausea or vomiting. patient is having difficulty with swallowing, especially solids. Feels as if it gets stuck.No hematemesis, coffee-ground emesis. No rectal bleeding, or melena. GENITOURINARY: No dysuria or hematuria. MUSCULOSKELETAL: Reports normal range of motion. SKIN: No rashes. No jaundice. ENDOCRINE: No chills, fevers. No excessive weight gain or loss. No polydipsia or polyuria. PSYCHIATRIC: Unremarkable. NEUROLOGY: No change in mental status. Denies dizziness, headache. ENT: Vision unremarkable. CONSTITUTIONAL: Reports recent weight loss however unsure of how much. No fever, chills, night sweats. Past Medical History Past Medical History: Atrial Fibrillation, Atrial Flutter, Coronary Artery Disease (CAD), Heart Failure, COPD, Diabetes Mellitus, GERD/Reflux, Hyperlipidemia, Hypertension, Myocardial Infarction (MN), Musculoskeletal Disorder, Renal Disease, Respiratory Disorder, Sleep Apnea/CPAP/BIPAP, Vascular Disorder Additional Past Medical History / Comment(s): NIDDM type II, neuropathy bila teral legs/feet, CKD stage III, nephrolithiasis, anemia, diastolic CHF, cardiac valve disease, pulmonary htn, home oxygen prn, afib/flutter with RVR, pt states she fell one year ago and suffered 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 Last Myocardial Infarction Date:: 1999 History of Any Multi-Drug Resistant Organisms: VRE Year Discovered:: 11/06/21 MDRO Source:: Urine Past Surgical History: Appendectomy, Coronary Bypass/CABG, Heart Catheterization, Hysterectomy, Tonsillectomy Additional Past Surgical History / Comment(s): 1999 CABG 4 vessel, BETHEL/cardioversion, abdominal aortagrams/bilateral runoffs, R atherectomy/PTBA/stent to R SFA, R neck benign lymph node removed, cysto/lithotripsy/aborted d/t unable to visualize stone, EGD, colonoscopy Past Anesthesia/Blood Transfusion Reactions: Motion Sickness Additional Past Anesthesia/Blood Transfusion Reaction / Comm: Pt has motion sickness/clausterphobia. Past Psychological History: No Psychological Hx Reported Additional Psychological History / Comment(s): . Smoking Status: Former smoker Past Alcohol Use History: None Reported Additional Past Alcohol Use History / Comment(s): . Past Drug Use History: None Reported - Past Family History Brother(s) Family Medical History: Cancer Son(s) Family Medical History: Cancer, Myocardial Infarction ([place]) Sister(s) Family Medical History: Cancer Mother Family Medical History: COPD, Myocardial Infarction ([place]) Additional Family Medical History / Comment(s): mother of MN-pt cannot recall at what age. Medications and Allergies Home Medications Medication Instructions Recorded Confirmed Type Ezetimibe [Zetia] 10 mg PO DAILY@0800 11/20/13 03/06/22 History Lovastatin [Mevacor] 10 mg PO DAILY@1700 11/20/13 03/06/22 History Apixaban [Eliquis] 2.5 mg PO BID@0800,1700 02/17/20 03/06/22 History Cyanocobalamin [Vitamin B-12] 500 mcg PO DAILY@1700 02/17/20 03/06/22 History Ferrous Sulfate [Iron (65 MG 325 mg PO DAILY@1700 02/05/21 03/06/22 History Elemental)] Aspirin EC [Ecotrin Low Dose] 81 mg PO DAILY@1700 07/19/21 03/06/22 History Colchicine [Mitigare] 0.6 mg PO BID@0800,1700 07/19/21 03/06/22 History sitaGLIPtin [Januvia] 50 mg PO DAILY@0800 07/19/21 03/06/22 History Folic Acid 1 mg PO DAILY@1700 10/22/21 03/06/22 History Acetaminophen Tab [Tylenol] 650 mg PO Q4HR PRN 11/25/21 03/06/22 History hydrALAZINE HCL [Apresoline] 25 mg PO TID@0800,1400,2100 PRN 11/25/21 03/06/22 History Carbidopa-Levodopa 25-100 mg 1 tab PO TID@0800,1400,2100 12/09/21 03/06/22 History [Sinemet 25-100 mg] Shen/D3/Mag11/Zinc/[place]/Bor 1 tab PO DAILY@1700 02/23/22 03/06/22 History [Caltrate 600+D Plus Tablet] Furosemide [Lasix] 40 mg PO DAILY@0800 03/06/22 03/06/22 History Gabapentin [Neurontin] 100 mg PO QID@08,12,17,03/06/22 03/06/22 History Loperamide HCl [Imodium A-D] 2 - 4 mg PO QID PRN MDD 8MG 03/06/22 03/06/22 History Magnesium Hydroxide [Milk of 7,200 mg PO DAILY PRN 03/06/22 03/06/22 History Magnesia Concentrate] Na Phos,M-B/Na Phos,Di-Ba [Fleet 133 ml RECTAL DAILY PRN 03/06/22 03/06/22 History Adult] Ondansetron [Ondansetron Odt] 4 mg PO Q8H PRN 03/06/22 03/06/22 History bisacodyL [Dulcolax] 10 mg RECTAL DAILY PRN 03/06/22 03/06/22 History Allergies Allergy/AdvReac Type Severity Reaction Status Date / Time tuberculin, purified protein Allergy Per [place] Verified 03/06/22 20:59 deriva albuterol [From DuoNeb] AdvReac Nausea Verified 03/06/22 20:59 cortisone AdvReac PAIN Verified 03/06/22 20:59 hydrocodone AdvReac Nausea Verified 03/06/22 20:59 ipratropium [From DuoNeb] AdvReac Nausea Verified 03/06/22 20:59 procaine HCl [From Novocain] AdvReac pain Verified 03/06/22 20:59 allergy medicines AdvReac "dries me Uncoded 02/23/22 11:46 out, bloody noses,generalized pain" Physical Exam Vitals: Vital Signs Temp Pulse Resp BP Pulse Ox 03/09/22 08:02 97.6 F 64 18 123/61 99 03/09/22 04:00 97.2 F L 63 18 142/68 96 03/09/22 02:00 62 03/09/22 00:16 62 18 134/72 95 03/08/22 20:00 97.4 F L 62 18 142/54 95 03/08/22 15:05 97.5 F L 65 18 148/58 96 03/08/22 13:17 57 L 03/08/22 11:45 57 L 16 131/72 96 03/08/22 08:24 98.0 F 69 16 156/68 97 Intake and Output 03/08/22 03/09/22 03/09/22 22:59 06:59 14:59 Output Total 400 450 Balance -400 -450 Output: Urine 400 450 Other: Voiding Method External Catheter External Catheter Weight 63 kg General appearance: The patient is alert, oriented, appears in no acute distress. Appears debilitated, chronically ill appearing. HET: Head is normocephalic and atraumatic. Conjunctiva pink. Sclera anicteric. Neck: Supple without lymphadenopathy. Trachea midline. Heart: S1 S2. Regular rate and rhythm. Lungs: decreased lung sounds. Abdomen: Soft, tender to palpation, nondistended with bowel sounds. No guarding or rigidity. Skin: No rashes. No jaundice. Extremities: Normal skin color and turgor. No pedal edema. Neurological: No focal deficits. Alert and oriented x3. Results CBC & Chem 7: 03/09/22 08:30 03/09/22 08:30 Labs: Abnormal Lab Results - Last 24 Hours (Table) 03/08/22 03/08/22 03/08/22 Range/Units 09:43 09:43 11:41 WBC 2.3 L (3.8-10.6) k/uL RBC 3.16 L (3.80-5.40) m/uL Hgb 10.1 L (11.4-16.0) gm/dL Hct 29.2 L (34.0-46.0) % RDW 18.2 H (11.5-15.5) % Plt Count 57 L (150-450) k/uL Lymphocytes # (Manual) 0.25 L (1.0-4.8) k/uL Retic Count 0.4 L (0.5-2.0) % Sodium 136 L (137-145) mmol/L BUN 59 H (7-17) mg/dL Creatinine 1.46 H (0.52-1.04) mg/dL Glucose 108 H (74-99) mg/dL POC Glucose (mg/dL) 126 H (70-110) mg/dL Calcium 8.0 L (8.4-10.2) mg/dL 03/08/22 03/08/22 Range/Units 17:14 20:37 WBC (3.8-10.6) k/uL RBC (3.80-5.40) m/uL Hgb (11.4-16.0) gm/dL Hct (34.0-46.0) % RDW (11.5-15.5) % Plt Count (150-450) k/uL Lymphocytes # (Manual) (1.0-4.8) k/uL Retic Count (0.5-2.0) % Sodium (137-145) mmol/L BUN (7-17) mg/dL Creatinine (0.52-1.04) mg/dL Glucose (74-99) mg/dL POC Glucose (mg/dL) 150 H 111 H (70-110) mg/dL Calcium (8.4-10.2) mg/dL Microbiology - Last 24 Hours (Table) 03/06/22 20:50 Blood Culture - Preliminary Blood No Growth after 48 hours 03/06/22 20:23 Blood Culture - Preliminary Blood No Growth after 48 hours Assessment and Plan (1) Dysphagia Narrative/Plan: 82-year-old female who presented with shortness of breath and was found to be anemic with hemoglobin of 6.5. Patient also complaining of difficulty with swallowing, feeling as though food is getting stuck as well as weight loss over the last 1 month's duration. Patient underwent a modified barium swallow evaluated by speech therapy who showed concerns for Zenkers diverticulum, as well as significant stasis/dysmotility in the proximal esophagus. Recommendati on was further evaluation with possible EGD. Patient is agreeable to undergo EGD for further evaluation, however patient is on eliquis.will plan for barium swallow study to further evaluate if there is a Zenker's diverticulum, if there is no possibly recommend transfer to tertiary center for Z-POEM procedure. Current Visit: Yes Status: Acute Code(s): R13.10 - DYSPHAGIA, UNSPECIFIED SNOMED Code(s): 81570860 (2) COPD (chronic obstructive pulmonary disease) Current Visit: Yes Status: Acute Code(s): J44.9 - CHRONIC OBSTRUCTIVE PULMONARY DISEASE, UNSPECIFIED SNOMED Code(s): 00844475 (3) Anemia Current Visit: Yes Status: Acute Code(s): D64.9 - ANEMIA, UNSPECIFIED SNOMED Code(s): 301855860 (4) CHF (congestive heart failure) Current Visit: Yes Status: Acute Code(s): I50.9 - HEART FAILURE, UNSPECIFIED SNOMED Code(s): 27668486 (5) Weakness Current Visit: Yes Status: Acute Code(s): R53.1 - WEAKNESS SNOMED Code(s): 53475544 Plan: 1. Continue symptomatic and supportive care 2. Hold Eliquis 3. Continue with diet recommended by speech 4. Barium swallow ordered for further evaluation of Zenker diverticulum. Will consider EGD for further evaluation of dysphagia or Tuesday 5. Protonix 40 mg daily for GI prophylaxis Thank you for this consultation, we will continue to follow. Dr. Oren Hutchins I agree with the dictator's note, documented as a scribe by Farheen Islas.
[2022-03-09] MEDS: POTASSIUM CHLORIDE 10 MEQ in WATER FOR INJECTION 1 100ML.BAG IVPB SCH ×4 (11:28→15:11)
[2022-03-09 12:06] LABS: Glucose,Whole Blood 128 mg/dL (70-110)
--- NOTE | 2022-03-09 12:08 | P.PN ---
Subjective Progress Note Date: 03/09/22 Hospital course: Patient is a very pleasant 82-year-old female with a past medical history of CAD status post CABG, atrial fibrillation on anticoagulation with Eliquis, chronic diastolic CHF, COPD, HTN, HLD, CKD IIIb, type II diabetes mellitus, and Parkinson's disease. She presented to the ED on 03/07/22 with a chief complaint of acute on chronic anemia. Patient was sent from [facility] after having a weekly routine lab drawn which showed worsening anemia. Patient was recently discharged on 02/27/22 after being admitted for generalized weakness and dehydration on daily diuretic use, acute kidney injury and failure to thrive. She claimed that since discharge she had been feeling about the same. However, she gets weekly labs at the nursing facility. One of her lab work showed worsening anemia and she was sent to the hospital for evaluation. Upon arrival to the emergency department, patient underwent full evaluation. CBC completed revealing pancytopenia with WBC count of 2.0, hemoglobin 6.5, and platelet count of 74. Patient's baseline hemoglobin is around 8. Troponin 0.018 and pro-BMP of 9730. BMP did reveal slightly elevated renal function with BUN 67, creatinine 1.76, and GFR of 26 with baseline creatinine of 1.4. EKG was completed showing sinus rhythm at 62 bpm. Chest x-ray consistent with congestive mild heart failure with bilateral pleural effusions. Patient was transfused with 2 units PRBCs and started on IV diuresis with Lasix. She was admitted under our services. Physical exam: Patient seen and fully evaluated at bedside this morning. Patient reports feeling unchanged and denies having new complaints this morning with the exception that she cannot get comfortable in bed. Patient underwent barium swallow with speech which reported concerns of a Zenker's diverticulum as well as impaired peristalsis in the proximal esophagus. GI was consulted and plans to take patient for EGD after holding of Eliquis. Patient has had 1700 mL of output over the past 24 hours. Vital signs reviewed and stable. General: Nontoxic, no distress and chronically ill-appearing. Derm: Skin warm and dry, normal coloration for ethnicity. Head: Atraumatic, normocephalic and symmetric. Eyes: EOMs intact, no lid lag, and anicteric sclera Mouth: no lip lesions, mucus membranes moist Cardiovascular: regular rate and rhythm with normal S1S2, systolic murmur, positive posterior tibial pulses bilaterally, and cap refill < 2 seconds. Lungs: Respirations even, regular, and unlabored on room air. Lungs coarse diffuse rhonchi bilaterally. No accessory muscle usage. Abdominal: soft, nontender to palpation, no guarding, no appreciable organomegaly Ext: ROM intact. No gross muscle atrophy, no edema, no contractures Neuro: Speech clear, face symmetrical and CN II-XII grossly intact with no noted focal neuro deficits Psych: Alert and oriented to person, place, time, and situation. Appropriate and pleasant affect. Assessment and Plan of Care: Acute on chronic symptomatic anemia Pancytopenia -No active blood loss -Status post 2 units of PRBCs, hemoglobin stable at 10.7 -Prior iron studies, thyroid function test, B12, folic acid levels were normal -Possibly related to bone marrow suppression, myelodysplastic syndrome on differential given high MCV -Reticulocyte count slightly low at 0.4% Acute on chronic shortness of breath, likely multifactorial Acute on chronic diastolic heart failure exacerbation -Cardiology consulted -Lasix 40 mg by mouth twice a day -I's and O's, daily weights -Continue telemetry monitoring -Close monitoring of renal function and electrolytes while diuresing. Dysphasia -Swallow eval completed. -Patient was evaluated by speech and language pathologist recommending further evaluation for concerns of Zenker's diverticulum. -Wood Cabinetmaker consulted and plans to take patient for EGD and possible PEG tube placement -Diet changed to pured diet -Aspiration precautions COPD, not in exacerbation -Pulmonology following -Bronchodilators if patient wheezing Hypokalemia Hypomagnesemia -Replaced. Continue to monitor closely with repeat a.m. labs. Chronic medical conditions Paroxysmal atrial fibrillation CAD Parkinson's disease Diabetes Chronic kidney disease -Medications reviewed and reconciled CODE STATUS: Full code DVT prophylaxis: Eliquis, held at this time secondary to need for patient to undergo EGD and possible PEG tube placement Anticipated discharge date: Clinical course to determine Anticipated discharge place: Back to [facility] A total of 36 minutes was spent on the care of this complex patient more than 50% of the time was spent in counseling and care coordination. I reviewed the documentation as provided by the KEVIN above, who is the original author of this note. I agree with the documented assessment and plan, with the following changes: none Objective - Vital Signs Vital signs: Vital Signs Temp 97.6 F 03/09/22 08:02 Pulse 64 03/09/22 08:02 Resp 18 03/09/22 08:02 BP 123/61 03/09/22 08:02 Pulse Ox 99 03/09/22 08:02 FiO2 28 03/07/22 19:36 Intake & Output 03/08/22 03/09/22 03/09/22 18:59 06:59 18:59 Output Total 1250 450 Balance -1250 -450 Weight 63 kg Output: Urine 1250 450 Other: Voiding Method External Catheter External Catheter External Catheter # Bowel Movements 1 - Labs CBC & Chem 7: 03/11/22 09:57 03/11/22 09:57 Labs: Abnormal Lab Results - Last 24 Hours (Table) 03/08/22 03/08/22 03/08/22 Range/Units 09:43 09:43 11:41 WBC 2.3 L (3.8-10.6) k/uL RBC 3.16 L (3.80-5.40) m/uL Hgb 10.1 L (11.4-16.0) gm/dL Hct 29.2 L (34.0-46.0) % RDW 18.2 H (11.5-15.5) % Plt Count 57 L (150-450) k/uL Lymphocytes # (Manual) 0.25 L (1.0-4.8) k/uL Retic Count 0.4 L (0.5-2.0) % Sodium 136 L (137-145) mmol/L BUN 59 H (7-17) mg/dL Creatinine 1.46 H (0.52-1.04) mg/dL Glucose 108 H (74-99) mg/dL POC Glucose (mg/dL) 126 H (70-110) mg/dL Calcium 8.0 L (8.4-10.2) mg/dL 03/08/22 03/08/22 Range/Units 17:14 20:37 WBC (3.8-10.6) k/uL RBC (3.80-5.40) m/uL Hgb (11.4-16.0) gm/dL Hct (34.0-46.0) % RDW (11.5-15.5) % Plt Count (150-450) k/uL Lymphocytes # (Manual) (1.0-4.8) k/uL Retic Count (0.5-2.0) % Sodium (137-145) mmol/L BUN (7-17) mg/dL Creatinine (0.52-1.04) mg/dL Glucose (74-99) mg/dL POC Glucose (mg/dL) 150 H 111 H (70-110) mg/dL Calcium (8.4-10.2) mg/dL Microbiology - Last 24 Hours (Table) 03/06/22 20:50 Blood Culture - Preliminary Blood No Growth after 48 hours 03/06/22 20:23 Blood Culture - Preliminary Blood No Growth after 48 hours
--- NOTE | 2022-03-09 12:45 | P.PN ---
Subjective Progress Note Date: 03/09/22 HISTORY OF PRESENTING ILLNESS Patient is pleasant 82-year-old female with history of CAD status post CABG, PVD status post previous stenting in January 2020, hypertension, atrial fibrillation, dyslipidemia, diabetes mellitus type 2, GERD, obstructive sleep apnea, bradycardia, previous tobacco abuse, Parkinson's disease who normally follows with Dr. Burnett. Patient has had multiple hospitalizations including gallbladder surgery, UTIs, sepsis, anemia, bradycardia. She states more recently she has been having increased shortness breath and fatigue which has been persistent. She admits to some chest burning sensation. She cannot describe if this feels similar to her prior bypass. Hemoglobin was noted to be low at 6.5 and therefore was transfused 2 units packed blood cells. She is normally on Eliquis 2.5 mg twice a day. Denies any hematochezia or melena. Creatinine 1.7 which appears to be a t her baseline, does have metabolic acidosis with bicarb 18, proBNP 9700, troponin 0.018. Cardiology was consult if her CHF. She was given Lasix 1 yesterday and transition to oral Lasix. He admits she has had very poor appetite. EKG shows sinus rhythm, normal axis, T-wave flattening, no significant ST abnormalities. Chest x-ray shows bilateral pleural effusions new compared to prior and mild congestive heart failure. 03/08 Patient has many generalized complaints stating that she is not feeling well. She is complaining of pain and discomfort in her feet and also tenderness in her right lower quadrant. Currently she denies any chest pain but states she did have some earlier and the left upper anterior area. Blood pressure 156/68. She is on Lasix 40 mg oral daily and did receive 1 dose of IV 40 mg yesterday. She has had good urine output with external female catheter in place. Also documented improvement in her weight from 77 kg to 71 kg. 03/09 Patient is seen and examined. Patient was seen by palliative care yesterday She will with no change in her current plan. She is also followed by GI. PHYSICAL EXAMINATION Vital signs reviewed. CONSTITUTIONAL: No apparent distress, chronically ill appearing HEENT: Head is normocephalic. Pupils are equal, round. Sclerae anicteric. Mucous membranes of the mouth are moist. No JVD. No carotid bruit. CHEST EXAMINATION: Lungs are clear to auscultation. No chest wall tenderness is noted on palpation or with deep breathing. HEART EXAMINATION: Regular rate and rhythm. S1, S2 heard. No murmurs, gallops or rub. ABDOMEN: Soft, nontender. Positive bowel sounds. EXTREMITIES: 2+ peripheral pulses, 1+ lower extremity edema and no calf tenderness. NEUROLOGIC EXAMINATION: Patient is awake, alert. ASSESSMENT 1. Generalized weakness and lower extremity weakness 2. Symptomatic anemia 3. CAD status post CABG 4. PAD status post stenting January 2020 5. Hypertension 6. Persistent atrial fibrillation 7. Diabetes mellitus type 2 8. Hyperlipidemia 9. Urinary tract infection 10. Pancytopenia 11. Parkinson's 12. Former tobacco abuse 13. Atypical chest pain 14. Bilateral pleural effusions and pulmonary vascular congestion. Possibly some component of heart failure PLAN Patient with multiple admissions for has had significant anemia status post 2 units packed red blood cells. She does have complex presentation with multiple medical comorbidities. May be some component of heart failure and we will monitor diuretics however has been having worsening creatinine and some failure to thrive. Continue oral Lasix 40 mg daily, monitor I&O, daily weights, I &O's and renal function. Continue patient on atorvastatin 10 mg daily Further recommendations based upon the patient's progress. Nurse practitioner note has been reviewed, I agree with documented findings and plan of care. Patient was seen and examined. Objective - Vital Signs Vital signs: Vital Signs Temp 97.6 F 03/09/22 08:02 Pulse 64 03/09/22 08:02 Resp 18 03/09/22 08:02 BP 123/61 03/09/22 08:02 Pulse Ox 99 03/09/22 08:02 FiO2 28 03/07/22 19:36 Intake & Output 03/08/22 03/09/22 03/09/22 18:59 06:59 18:59 Output Total 1250 450 Balance -1250 -450 Weight 63 kg Output: Urine 1250 450 Other: Voiding Method External Catheter External Catheter External Catheter # Bowel Movements 1 - Labs CBC & Chem 7: 03/09/22 08:30 03/09/22 08:30 Labs: Abnormal Lab Results - Last 24 Hours (Table) 03/08/22 03/08/22 03/08/22 Range/Units 09:43 11:41 17:14 WBC (3.8-10.6) k/uL RBC (3.80-5.40) m/uL Hgb (11.4-16.0) gm/dL Hct (34.0-46.0) % RDW (11.5-15.5) % Plt Count (150-450) k/uL Lymphocytes # (Manual) 0.25 L (1.0-4.8) k/uL Potassium (3.5-5.1) mmol/L BUN (7-17) mg/dL Creatinine (0.52-1.04) mg/dL Glucose (74-99) mg/dL POC Glucose (mg/dL) 126 H 150 H (70-110) mg/dL Calcium (8.4-10.2) mg/dL Albumin (3.5-5.0) g/dL 03/08/22 03/09/22 03/09/22 Range/Units 20:37 08:30 08:30 WBC 1.8 L (3.8-10.6) k/uL RBC 3.06 L (3.80-5.40) m/uL Hgb 10.2 L (11.4-16.0) gm/dL Hct 29.3 L (34.0-46.0) % RDW 18.4 H (11.5-15.5) % Plt Count 47 L (150-450) k/uL Lymphocytes # (Manual) (1.0-4.8) k/uL Potassium 3.3 L (3.5-5.1) mmol/L BUN 61 H (7-17) mg/dL Creatinine 1.48 H (0.52-1.04) mg/dL Glucose 100 H (74-99) mg/dL POC Glucose (mg/dL) 111 H (70-110) mg/dL Calcium 8.2 L (8.4-10.2) mg/dL Albumin 3.4 L (3.5-5.0) g/dL Microbiology - Last 24 Hours (Table) 03/06/22 20:50 Blood Culture - Preliminary Blood No Growth after 48 hours 03/06/22 20:23 Blood Culture - Preliminary Blood No Growth after 48 hours
--- NOTE | 2022-03-09 14:40 | P.PN ---
Subjective Progress Note Date: 03/09/22 Principal diagnosis: Shortness of breath, multifactorial, secondary to anemia and underlying COPD with mild congestive heart failure I was asked to evaluate this 82-year-old female patient of the patient has history of COPD. The patient was hospitalized for increased shortness of breath and generalized weakness and the patient was hospitalized for the same earlier this month. She is known to have multiple medical problems and comorbidities. She has history of COPD, coronary artery disease with previous bypass surgery, history of paroxysmal atrial fibrillation, history of diastolic heart failure with an ejection fraction of 55-60%, hypertension, hyperlipidemia, type II maq-itxbkxq-glxwokydz diabetes mellitus, Parkinson's disease and chronic stage III kidney disease and episodic UTIs. The patient was in the hospital last week for dehydration due to diuretic intake and acute on top of chronic kidney injury. She was treated and she was discharged home. Hemoglobin at time of discharge was around 8.5. The patient comes in the hospital and that hemoglobin was at 6.5. The white cell count was at 2. Platelet count was 94 and this is obviously consistent with herbert cytopenia. I reviewed previous blood work on this patient and I note that the patient's white cell count has been persistently low. The platelets have been also persistently low with further interval dropped. The patient has had previous Covid 19 infection on 12/07/2021 and her most recent testing has been negative. Had also stool was positive on 12/09/2021. Her previous iron studies have been low from 2020 and a most recent iron study from 11/09/2021 was within normal limits. As for the renal function, the patient has chronic kidney disease. Her creatinine is stable at 1.69 for today. She does have a component of non-anion gap metabolic acidosis. She is currently on oxygen and she is on 2 L nasal cannula. The chest x-ray that was done at the time of admission showed some mild CHF with bilateral pleural effusions. The patient is currently received and got transfused with a total of 2 units of packed RBC and hemoglobin is currently up to 10.7. She is also on oxygen. She is on bronchodilators with DuoNeb nebulized treatments [id number] 4 times a day. She is on long-term and coagulation with Eliquis 2.5 mg by mouth daily. She is on oral Lasix 40 mg by mouth daily. She is on a routine home medications. The patient is a [place] resident. She is not a reliable historian. She has significant amount of body aches all over. No signs of any respiratory distress at rest. She is on 2 L O2 nasal cannula Reevaluated today on 03/08/22, patient is feeling a bit better, nonetheless she remains very generally weak. Hardly any cough no wheezing no fever no chills no hemoptysis. Patient is on 2 L nasal cannula, and her O2 sats is 96%. Hemoglobin today is 10.1, electrolytes are normal however her BUN is 59 and creatinine 1.46. Patient received a total of 2 units of packed RBCs since admission. Patient did receive IV Lasix yesterday, and she was transitioned to oral Lasix today. Chest x-ray on admission did show evidence of bilateral pleural effusions consistent with mild CHF. BNP level was quite high at 9730. Reevaluated today on 03/09/22, patient has multiple complaints, but does not seem to be complaining of shortness of breath, she seems to be complaining of some vague abdominal pain and discomfort. She has no cough no wheezing no s hortness of breath, remains on Lasix, she had good urine output over the last 24 hours, and her weight seems to be coming down nicely. Her GI symptoms today aren't new, that being addressed by the admitting physician. WBC count today is 1.8 hemoglobin is 10.2 electrolytes are normal except for slightly low potassium of 3.3, renal profile showed a BUN of 61 creatinine 1.48. Objective - Vital Signs Vital signs: Vital Signs Temp 97.6 F 03/09/22 08:02 Pulse 65 03/09/22 13:46 Resp 16 03/09/22 11:15 BP 110/54 03/09/22 11:15 Pulse Ox 98 03/09/22 11:15 FiO2 28 03/07/22 19:36 Intake & Output 03/08/22 03/09/22 03/09/22 18:59 06:59 18:59 Output Total 1250 450 Balance -1250 -450 Weight 63 kg Output: Urine 1250 450 Other: Voiding Method External Catheter External Catheter External Catheter # Bowel Movements 1 - Exam Physical Exam: Revealed an 82-year-old female looks chronically ill. On 2 L nasal cannula. O2 saturations 98% Head: Atraumatic, normocephalic. HEENT:[Neck is supple.] [No neck masses.] [No thyromegaly.] [No JVD.] Chest: [Symmetrical chest expansion clear bilaterally, no crackles or rhonchi or wheezes. Cardiac Exam: [Normal S1 and S2, no S3 gallop, no murmur.] Abdomen: [Soft, slightly tender abdomen,, no megaly, no rebound, no guarding, normal bowel sounds.] Extremities: [No clubbing, 1+ bipedal edema, no cyanosis.] Neurological Exam: [No focal neurologic deficit.] Psychiatric: Normal mood affect and normal mental status examination. Skin: No rashes. - Labs CBC & Chem 7: 03/09/22 08:30 03/09/22 08:30 Labs: Abnormal Lab Results - Last 24 Hours (Table) 03/08/22 03/08/22 03/09/22 Range/Units 17:14 20:37 08:30 WBC 1.8 L (3.8-10.6) k/uL RBC 3.06 L (3.80-5.40) m/uL Hgb 10.2 L (11.4-16.0) gm/dL Hct 29.3 L (34.0-46.0) % RDW 18.4 H (11.5-15.5) % Plt Count 47 L (150-450) k/uL Potassium (3.5-5.1) mmol/L BUN (7-17) mg/dL Creatinine (0.52-1.04) mg/dL Glucose (74-99) mg/dL POC Glucose (mg/dL) 150 H 111 H (70-110) mg/dL Calcium (8.4-10.2) mg/dL Albumin (3.5-5.0) g/dL 03/09/22 03/09/22 Range/Units 08:30 12:02 WBC (3.8-10.6) k/uL RBC (3.80-5.40) m/uL Hgb (11.4-16.0) gm/dL Hct (34.0-46.0) % RDW (11.5-15.5) % Plt Count (150-450) k/uL Potassium 3.3 L (3.5-5.1) mmol/L BUN 61 H (7-17) mg/dL Creatinine 1.48 H (0.52-1.04) mg/dL Glucose 100 H (74-99) mg/dL POC Glucose (mg/dL) 128 H (70-110) mg/dL Calcium 8.2 L (8.4-10.2) mg/dL Albumin 3.4 L (3.5-5.0) g/dL Microbiology - Last 24 Hours (Table) 03/06/22 20:50 Blood Culture - Preliminary Blood No Growth after 48 hours 03/06/22 20:23 Blood Culture - Preliminary Blood No Growth after 48 hours Assessment and Plan Assessment: Impression: Symptomatic anemia, chronic in nature. Shortness of breath, multifactorial mostly secondary to anemia, atrial fibrillation, and congestive heart failure, diastolic in nature. Previous echocardiogram showed preserved LV function. Ejection fraction of 55% Chronic hypoxic respiratory maintaining on home oxygen at 2 L/m. History of underlying COPD. Chronic kidney disease stage III History of Parkinson's disease Possible myelodysplasia Sacral skin excoriation Chronic diastolic heart failure Paroxysmal atrial fibrillation Recommendation: Continue present treatment plan Continue diuretics Continue bronchodilators Continue oral bicarb Continue updrafts Continue oxygen and titrate accordingly Patient may need ECF facility referral. Pulmonary-rene I will clear the patient for discharge if cleared by other consultants Time with Patient: Less than 30
[2022-03-09] MEDS: CYANOCOBALAMIN 500 MCG TAB PO SCH (15:20)
[2022-03-09] MEDS: CALCIUM CARB-VIT D 500 MG-5 MCG TAB PO SCH (15:20)
[2022-03-09] MEDS: FERROUS SULFATE 325 MG TAB PO SCH (15:21)
[2022-03-09] MEDS: FOLIC ACID 1 MG TAB PO SCH (15:21)
[2022-03-09] MEDS: ASPIRIN 81 MG PO SCH (16:40)
[2022-03-09] MEDS: ATORVASTATIN 10 MG TAB PO SCH (16:40)
[2022-03-09 16:53] LABS: Glucose,Whole Blood 107 mg/dL (70-110)
[2022-03-09] MEDS: MAGNESIUM SULFATE-D5W PMX 1 GM in DEXTROSE/WATER 1 100ML.BAG IVPB SCH ×2 (17:23→18:47)
[2022-03-09 20:28] LABS: Glucose,Whole Blood 121 mg/dL (70-110)
[2022-03-10] MEDS: ONDANSETRON 4 MG/2 ML VIAL IVP PRN ×2 (00:49→18:32)
[2022-03-10 06:23] LABS: Glucose,Whole Blood 109 mg/dL (70-110)
[2022-03-10] MEDS: SODIUM BICARBONATE TAB 650 MG TAB PO SCH (09:30)
[2022-03-10] MEDS: CARBIDOPA-LEVODOPA 25-100 MG 1 EACH TAB PO SCH ×3 (09:30→21:51)
[2022-03-10] MEDS: GABAPENTIN 100 MG CAP PO SCH ×4 (09:31→21:51)
[2022-03-10] MEDS: FUROSEMIDE 40 MG TAB PO SCH (09:31)
[2022-03-10] MEDS: COLCHICINE 0.6 MG EACH PO SCH ×2 (09:31→17:02)
[2022-03-10] MEDS: EZETIMIBE 10 MG TAB PO SCH (09:31)
[2022-03-10] MEDS: LINAGLIPTIN 5 MG TABLET PO SCH (09:31)
--- NOTE | 2022-03-10 09:39 | FL ---
ESOPHOGRAM. HISTORY: Dysphagia Esophagram was performed per the single contrast technique with the patient supine on the fluoroscopi c table. Examination is quite limited given difficulty in patient positioning and limited volume of b arium intake. There is a Zenker's diverticulum noted at the cervicothoracic junction. There is no evidence for aspi ration or penetration. Esophagus demonstrates tertiary contractions compatible with presbyesophagus. No evidence for filling defect or mass. No obvious hiatal hernia. IMPRESSION: Overall limited study. There is evidence of a Zenker's diverticulum at the level of the c ervicothoracic junction. Changes of presbyesophagus
--- NOTE | 2022-03-10 10:14 | XR ---
EXAMINATION TYPE: XR chest 1V DATE OF EXAM: 03/07/2022 COMPARISON: 03/06/2022 HISTORY: Follow-up CHF TECHNIQUE: Single frontal view of the chest is obtained. FINDINGS: The patient is status post CABG surgery. There is no change in the mildly enlarged heart, small bilateral pleural effusions, interstitial mario a and mild pulmonary vascular congestion. Osseous structures are intact. There is no pneumothorax. IMPRESSION: Findings consistent with CHF unchanged compared to previous
[2022-03-10 11:44] LABS: Glucose,Whole Blood 130 mg/dL (70-110)
--- NOTE | 2022-03-10 12:53 | P.PN ---
Subjective Progress Note Date: 03/10/22 HISTORY OF PRESENTING ILLNESS Patient is pleasant 82-year-old female with history of CAD status post CABG, PVD status post previous stenting in January 2020, hypertension, atrial fibrillation, dyslipidemia, diabetes mellitus type 2, GERD, obstructive sleep apnea, bradycardia, previous tobacco abuse, Parkinson's disease who normally follows with Dr. Burnett. Patient has had multiple hospitalizations including gallbladder surgery, UTIs, sepsis, anemia, bradycardia. She states more recently she has been having increased shortness breath and fatigue which has been persistent. She admits to some chest burning sensation. She cannot describe if this feels similar to her prior bypass. Hemoglobin was noted to be low at 6.5 and therefore was transfused 2 units packed blood cells. She is normally on Eliquis 2.5 mg twice a day. Denies any hematochezia or melena. Creatinine 1.7 which appears to be a t her baseline, does have metabolic acidosis with bicarb 18, proBNP 9700, troponin 0.018. Cardiology was consult if her CHF. She was given Lasix 1 yesterday and transition to oral Lasix. He admits she has had very poor appetite. EKG shows sinus rhythm, normal axis, T-wave flattening, no significant ST abnormalities. Chest x-ray shows bilateral pleural effusions new compared to prior and mild congestive heart failure. 03/08 Patient has many generalized complaints stating that she is not feeling well. She is complaining of pain and discomfort in her feet and also tenderness in her right lower quadrant. Currently she denies any chest pain but states she did have some earlier and the left upper anterior area. Blood pressure 156/68. She is on Lasix 40 mg oral daily and did receive 1 dose of IV 40 mg yesterday. She has had good urine output with external female catheter in place. Also documented improvement in her weight from 77 kg to 71 kg. 03/09 Patient is seen and examined. Patient was seen by palliative care yesterday the patient has been resistant to going down the path of palliative first comfort care. She stills requesting to be full code. She is also followed by GI with plan for modified barium swallow for swallowing difficulty. 03/10 Patient states that she does not feel well in general. No new concerns today. She is complaining of upset stomach and the generalized abdominal pain. She is being worked up for Zenker's diverticulum, stasis dysmotility in the proximal esophagus. Patient remains in atrial fibrillation with heart rate in the 60s, blood pressure 153/68. PHYSICAL EXAMINATION Vital signs reviewed. CONSTITUTIONAL: No apparent distress, chronically ill appearing HEENT: Head is normocephalic. Pupils are equal, round. Sclerae anicteric. Mucous membranes of the mouth are moist. No JVD. No carotid bruit. CHEST EXAMINATION: Lungs are clear to auscultation. No chest wall tenderness is noted on palpation or with deep breathing. HEART EXAMINATION: Regular rate and rhythm. S1, S2 heard. No murmurs, gallops or rub. ABDOMEN: Soft, generalized abdominal tenderness. EXTREMITIES: 2+ peripheral pulses, no lower extremity edema and no calf tenderness. NEUROLOGIC EXAMINATION: Patient is awake, alert. ASSESSMENT 1. Generalized weakness and lower extremity weakness 2. Symptomatic anemia 3. CAD status post CABG 4. PAD status post stenting January 2020 5. Hypertension 6. Persistent atrial fibrillation 7. Diabetes mellitus type 2 8. Hyperlipidemia 9. Urinary tract infection 10. Pancytopenia 11. Parkinson's 12. Former tobacco abuse 13. Atypical chest pain 14. Bilateral pleural effusions and pulmonary vascular congestion. Possibly some component of heart failure PLAN Patient with multiple admissions for has had significant anemia status post 2 units packed red blood cells. She does have complex presentation with multiple medical comorbidities. May be some component of heart failure and we will monitor diuretics however has been having worsening creatinine and some failure to thrive. Workup in progress for Zenker's diverticulum, stasis/dysmotility in the proximal esophagus Continue oral Lasix 40 mg daily, monitor I&O, daily weights, I &O's and renal function. Continue patient on atorvastatin 10 mg daily Cardiology we'll sign off her case and will follow on an as-needed basis. Nurse practitioner note has been reviewed, I agree with documented findings and plan of care. Patient was seen and examined. Objective - Vital Signs Vital signs: Vital Signs Temp 97.6 F 03/09/22 19:55 Pulse 63 03/10/22 04:00 Resp 18 03/10/22 04:00 BP 126/65 03/10/22 04:00 Pulse Ox 96 03/10/22 04:00 FiO2 28 03/07/22 19:36 Intake & Output 03/09/22 03/10/22 03/10/22 18:59 06:59 18:59 Output Total 1200 500 Balance -1200 -500 Weight 65 kg Output: Urine 1200 500 Other: Voiding Method External Catheter External Catheter - Labs CBC & Chem 7: 03/09/22 08:30 03/09/22 08:30 Labs: Abnormal Lab Results - Last 24 Hours (Table) 03/09/22 03/09/22 Range/Units 12:02 20:27 POC Glucose (mg/dL) 128 H 121 H (70-110) mg/dL Microbiology - Last 24 Hours (Table) 03/06/22 20:50 Blood Culture - Preliminary Blood No Growth after 72 hours 03/06/22 20:23 Blood Culture - Preliminary Blood No Growth after 72 hours
--- NOTE | 2022-03-10 13:00 | P.PN ---
Subjective Progress Note Date: 03/10/22 Principal diagnosis: Shortness of breath, multifactorial, secondary to anemia and underlying COPD with mild congestive heart failure I was asked to evaluate this 82-year-old female patient of the patient has history of COPD. The patient was hospitalized for increased shortness of breath and generalized weakness and the patient was hospitalized for the same earlier this month. She is known to have multiple medical problems and comorbidities. She has history of COPD, coronary artery disease with previous bypass surgery, history of paroxysmal atrial fibrillation, history of diastolic heart failure with an ejection fraction of 55-60%, hypertension, hyperlipidemia, type II zrd-ynhryub-aubgyximu diabetes mellitus, Parkinson's disease and chronic stage III kidney disease and episodic UTIs. The patient was in the hospital last week for dehydration due to diuretic intake and acute on top of chronic kidney injury. She was treated and she was discharged home. Hemoglobin at time of discharge was around 8.5. The patient comes in the hospital and that hemoglobin was at 6.5. The white cell count was at 2. Platelet count was 94 and this is obviously consistent with herbert cytopenia. I reviewed previous blood work on this patient and I note that the patient's white cell count has been persistently low. The platelets have been also persistently low with further interval dropped. The patient has had previous Covid 19 infection on 12/07/2021 and her most recent testing has been negative. Had also stool was positive on 12/09/2021. Her previous iron studies have been low from 2020 and a most recent iron study from 11/09/2021 was within normal limits. As for the renal function, the patient has chronic kidney disease. Her creatinine is stable at 1.69 for today. She does have a component of non-anion gap metabolic acidosis. She is currently on oxygen and she is on 2 L nasal cannula. The chest x-ray that was done at the time of admission showed some mild CHF with bilateral pleural effusions. The patient is currently received and got transfused with a total of 2 units of packed RBC and hemoglobin is currently up to 10.7. She is also on oxygen. She is on bronchodilators with DuoNeb nebulized treatments [id number] 4 times a day. She is on long-term and coagulation with Eliquis 2.5 mg by mouth daily. She is on oral Lasix 40 mg by mouth daily. She is on a routine home medications. The patient is a [facility] resident. She is not a reliable historian. She has significant amount of body aches all over. No signs of any respiratory distress at rest. She is on 2 L O2 nasal cannula Reevaluated today on 03/08/22, patient is feeling a bit better, nonetheless she remains very generally weak. Hardly any cough no wheezing no fever no chills no hemoptysis. Patient is on 2 L nasal cannula, and her O2 sats is 96%. Hemoglobin today is 10.1, electrolytes are normal however her BUN is 59 and creatinine 1.46. Patient received a total of 2 units of packed RBCs since admission. Patient did receive IV Lasix yesterday, and she was transitioned to oral Lasix today. Chest x-ray on admission did show evidence of bilateral pleural effusions consistent with mild CHF. BNP level was quite high at 9730. Reevaluated today on 03/09/22, patient has multiple complaints, but does not seem to be complaining of shortness of breath, she seems to be complaining of some vague abdominal pain and discomfort. She has no cough no wheezing no s hortness of breath, remains on Lasix, she had good urine output over the last 24 hours, and her weight seems to be coming down nicely. Her GI symptoms today aren't new, that being addressed by the admitting physician. WBC count today is 1.8 hemoglobin is 10.2 electrolytes are normal except for slightly low potassium of 3.3, renal profile showed a BUN of 61 creatinine 1.48. Reevaluated today on 03/10/22, patient is basically about the same, continues to have some vague abdominal discomfort. Her barium swallow showed evidence of Zenker's diverticulum and dysmotility in the proximal esophagus. Overall the patient is doing great, and I'm recommending discharge planning to ECF if cleared by all other consultants. Pulmonary-rene, the patient is relatively asymptomatic, and we will sign off and see the patient on when necessary basis. Objective - Vital Signs Vital signs: Vital Signs Temp 97.9 F 03/10/22 11:38 Pulse 64 03/10/22 11:38 Resp 20 03/10/22 11:38 BP 153/68 03/10/22 11:38 Pulse Ox 99 03/10/22 11:38 FiO2 28 03/07/22 19:36 Intake & Output 03/09/22 03/10/22 03/10/22 18:59 06:59 18:59 Output Total 1200 500 Balance -1200 -500 Weight 65 kg Output: Urine 1200 500 Other: Voiding Method External Catheter External Catheter External Catheter - Exam Physical Exam: Revealed an 82-year-old female looks chronically ill. On 2 L nasal cannula. O2 saturations 99% Head: Atraumatic, normocephalic. HEENT:[Neck is supple.] [No neck masses.] [No thyromegaly.] [No JVD.] Chest: [Symmetrical chest expansion clear bilaterally, no crackles or rhonchi or wheezes. Cardiac Exam: [Normal S1 and S2, no S3 gallop, no murmur.] Abdomen: [Soft, slightly tender abdomen,, no megaly, no rebound, no guarding, normal bowel sounds.] Extremities: [No clubbing, 1+ bipedal edema, no cyanosis.] Neurological Exam: [No focal neurologic deficit.] Psychiatric: Normal mood affect and normal mental status examination. Skin: No rashes. - Labs CBC & Chem 7: 03/09/22 08:30 03/09/22 08:30 Labs: Abnormal Lab Results - Last 24 Hours (Table) 03/09/22 03/10/22 Range/Units 20:27 11:43 POC Glucose (mg/dL) 121 H 130 H (70-110) mg/dL Microbiology - Last 24 Hours (Table) 03/06/22 20:50 Blood Culture - Preliminary Blood No Growth after 72 hours 03/06/22 20:23 Blood Culture - Preliminary Blood No Growth after 72 hours Assessment and Plan Assessment: Impression: Symptomatic anemia, chronic in nature. Shortness of breath, multifactorial mostly secondary to anemia, atrial fibrillation, and congestive heart failure, diastolic in nature. Previous echocardiogram showed preserved LV function. Ejection fraction of 55% Chronic hypoxic respiratory maintaining on home oxygen at 2 L/m. History of underlying COPD. Chronic kidney disease stage III History of Parkinson's disease Possible myelodysplasia Sacral skin excoriation Chronic diastolic heart failure Paroxysmal atrial fibrillation Recommendation: Continue present treatment plan Continue diuretics Continue bronchodilators Continue oral bicarb Continue updrafts Continue oxygen and titrate accordingly Patient may need ECF We will follow as needed Time with Patient: Less than 30
--- NOTE | 2022-03-10 14:56 | P.PN ---
Subjective Progress Note Date: 03/10/22 Principal diagnosis: Dysphagia This is an 82-year-old female who presented to the emergency department 3 days ago with complaints of shortness of breath. She has a past medical history including atrial fibrillation, atrial flutter, coronary artery disease heart failure, COPD, diabetes mellitus, hyperlipidemia, hypertension, renal disease, and vascular disorder.apparently patient has reported difficulty with swallowing and that food gets stuck in her throat/esophagus, she admits to weight loss although she is on sure of how much and states that this has been going on for a t least one month duration. gastroenterology was consulted for dysphagia.Patient is having a very difficult time talking to me and is at best whispering, making it difficult to obtain history and review of systems. Patient denies any recent EGD or colonoscopy. Patient also came in with anemia with a hemoglobin of 6.5 on admission and was given 2 units of blood transfusion. Patient's last EGD colonoscopy was 01/23/2014for workup for anemia. EGD showed mild gastritis and colonoscopy showed polyps status post polypectomy and moderate diverticulosis. during this hospitalization the patient was seen by speech therapy and underwent a modified barium swallow that reported there appears to be a Zenker's diverticulum as well as impaired peristalsis in the proximal esophagus which could not be effectively cleared with a liquid wash however there was no aspiration or penetration observed. There was concern for the Zenker's diverticulum and significant stasis/dysmotility of the proximal esophagus. Recommendation of further evaluation with esophagram or EGD. Patient denies any abdominal pain, nausea or vomiting. She states that she does have dark stool but they are not black and it's related to iron that she has been taking. 03/10/2022. Patient was seen and examined today as a follow-up for dysphagia. States overall she had a back pain does not feel well. States that she still feels like it is difficult to swallow. She is on a pured diet and states she tolerates liquids just fine. She underwent barium swallow study this morning that reported a limited study. That there was evidence of a Zenker's diverticulum at the level of the cervical thoracic junction. Changes of presbyesophagus. Objective - Vital Signs Vital signs: Vital Signs Temp 97.6 F 03/09/22 19:55 Pulse 63 03/10/22 04:00 Resp 18 03/10/22 04:00 BP 126/65 03/10/22 04:00 Pulse Ox 96 03/10/22 04:00 FiO2 28 03/07/22 19:36 Intake & Output 03/09/22 03/10/22 03/10/22 18:59 06:59 18:59 Output Total 1200 500 Balance -1200 -500 Weight 65 kg Output: Urine 1200 500 Other: Voiding Method External Catheter External Catheter - Exam General appearance: The patient is alert, oriented, appears in no acute distress. HET: Head is normocephalic and atraumatic. Conjunctiva pink. Sclera anicteric. Neck: Supple without lymphadenopathy. Abdomen: Soft, nontender, nondistended with bowel sounds. No guarding or rigidity. Extremities: Normal skin color and turgor. No pedal edema Skin: No rashes, no jaundice Neurological: No focal deficits. Alert and oriented. - Labs CBC & Chem 7: 03/09/22 08:30 03/09/22 08:30 Labs: Abnormal Lab Results - Last 24 Hours (Table) 03/09/22 03/09/22 Range/Units 12:02 20:27 POC Glucose (mg/dL) 128 H 121 H (70-110) mg/dL Microbiology - Last 24 Hours (Table) 03/06/22 20:50 Blood Culture - Preliminary Blood No Growth after 72 hours 03/06/22 20:23 Blood Culture - Preliminary Blood No Growth after 72 hours Assessment and Plan (1) Dysphagia Narrative/Plan: 82-year-old female who presented with shortness of breath and was found to be anemic with hemoglobin of 6.5. Patient also complaining of difficulty with swallowing, feeling as though food is getting stuck as well as weight loss over the last 1 month's duration. Patient underwent a modified barium swallow evaluated by speech therapy who showed concerns for Zenkers diverticulum, as well as significant stasis/dysmotility in the proximal esophagus. Recommendation was further evaluation with possible EGD. Patient is agreeable to undergo EGD for further evaluation, however patient is on eliquis.will plan for barium swallow study to further evaluate if there is a Zenker's diverticulum, if there is no possibly recommend transfer to tertiary center for Z-POEM procedure. Barium swallow study reports evidence of Zenker's diverticulum at the level of the cervicothoracic junction with changes of presbyesophagus. Current Visit: Yes Status: Acute Code(s): R13.10 - DYSPHAGIA, UNSPECIFIED SNOMED Code(s): 82982663 (2) COPD (chronic obstructive pulmonary disease) Current Visit: Yes Status: Acute Code(s): J44.9 - CHRONIC OBSTRUCTIVE PULMONARY DISEASE, UNSPECIFIED SNOMED Code(s): 93388887 (3) Anemia Current Visit: Yes Status: Acute Code(s): D64.9 - ANEMIA, UNSPECIFIED SNOMED Code(s): 496250828 (4) CHF (congestive heart failure) Current Visit: Yes Status: Acute Code(s): I50.9 - HEART FAILURE, UNSPECIFIED SNOMED Code(s): 27640440 (5) Weakness Current Visit: Yes Status: Acute Code(s): R53.1 - WEAKNESS SNOMED Code(s): 92189404 Plan: 1. Continue symptomatic and supportive care 2. May resume Eliquis 3. Continue with diet recommended by speech 4. Barium swallow ordered for further evaluation of Zenker diverticulum. 5. Protonix 40 mg daily for GI prophylaxis 6. Patient will need outpatient follow-up and referral to [facility] for Zenker's diverticulum for andvanced endoscopy with diverticulectomy 7. No plan on endoscopic evaluation during this hospitalization Thank you for this consultation, we will sign off at this time. Dr. Oren Hutchins I agree with the dictator's note, documented as a scribe by Farheen Islas.
[2022-03-10 16:44] LABS: Glucose,Whole Blood 127 mg/dL (70-110)
[2022-03-10] MEDS: ASPIRIN 81 MG PO SCH (17:02)
[2022-03-10] MEDS: CYANOCOBALAMIN 500 MCG TAB PO SCH (17:02)
[2022-03-10] MEDS: FOLIC ACID 1 MG TAB PO SCH (17:02)
[2022-03-10] MEDS: CALCIUM CARB-VIT D 500 MG-5 MCG TAB PO SCH (17:02)
[2022-03-10] MEDS: ATORVASTATIN 10 MG TAB PO SCH (17:02)
[2022-03-10] MEDS: FERROUS SULFATE 325 MG TAB PO SCH (17:02)
--- NOTE | 2022-03-10 17:59 | P.PN ---
Subjective Progress Note Date: 03/10/22 Hospital course: Patient is a very pleasant 82-year-old female with a past medical history of CAD status post CABG, atrial fibrillation on anticoagulation with Eliquis, chronic diastolic CHF, COPD, HTN, HLD, CKD IIIb, type II diabetes mellitus, and Parkinson's disease. She presented to the ED on 03/07/22 with a chief complaint of acute on chronic anemia. Patient was sent from [facility] after having a weekly routine lab drawn which showed worsening anemia. Patient was recently discharged on 02/27/22 after being admitted for generalized weakness and dehydration on daily diuretic use, acute kidney injury and failure to thrive. She claimed that since discharge she had been feeling about the same. However, she gets weekly labs at the nursing facility. One of her lab work showed worsening anemia and she was sent to the hospital for evaluation. Upon arrival to the emergency department, patient underwent full evaluation. CBC completed revealing pancytopenia with WBC count of 2.0, hemoglobin 6.5, and platelet count of 74. Patient's baseline hemoglobin is around 8. Troponin 0.018 and pro-BMP of 9730. BMP did reveal slightly elevated renal function with BUN 67, creatinine 1.76, and GFR of 26 with baseline creatinine of 1.4. EKG was completed showing sinus rhythm at 62 bpm. Chest x-ray consistent with congestive mild heart failure with bilateral pleural effusions. Patient was transfused with 2 units PRBCs and started on IV diuresis with Lasix. She was admitted under our services. Physical exam: Patient seen and fully evaluated at bedside this morning. She just returned from barium swallow eval. Awaiting results and further recommendations from gastroenterology. Vital signs reviewed and stable. General: Nontoxic, no distress and chronically ill-appearing. Derm: Skin warm and dry, normal coloration for ethnicity. Head: Atraumatic, normocephalic and symmetric. Eyes: EOMs intact, no lid lag, and anicteric sclera Mouth: no lip lesions, mucus membranes moist Cardiovascular: regular rate and rhythm with normal S1S2, systolic murmur, positive posterior tibial pulses bilaterally, and cap refill < 2 seconds. Lungs: Respirations even, regular, and unlabored on room air. Lungs coarse diffuse rhonchi bilaterally. No accessory muscle usage. Abdominal: soft, nontender to palpation, no guarding, no appreciable organomegaly Ext: ROM intact. No gross muscle atrophy, no edema, no contractures Neuro: Speech clear, face symmetrical and CN II-XII grossly intact with no noted focal neuro deficits Psych: Alert and oriented to person, place, time, and situation. Appropriate and pleasant affect. Assessment and Plan of Care: Acute on chronic symptomatic anemia Pancytopenia -No active blood loss -Status post 2 units of PRBCs, hemoglobin stable at 10.2 -Prior iron studies, thyroid function test, B12, folic acid levels were normal -Possibly related to bone marrow suppression, myelodysplastic syndrome on differential given high MCV -Reticulocyte count slightly low at 0.4% Acute on chronic shortness of breath, likely multifactorial Acute on chronic diastolic heart failure exacerbation -Cardiology consulted -Lasix 40 mg by mouth daily -I's and O's, daily weights -Continue telemetry monitoring -Close monitoring of renal function and electrolytes while diuresing. Dysphasia -Swallow eval completed. -Patient was evaluated by speech and language pathologist recommending further evaluation for concerns of Zenker's diverticulum. -Safety Investigator consulted and plans to take patient for EGD and possible PEG tube placement -Diet changed to pured diet -Aspiration precautions COPD, not in exacerbation -Pulmonology following -Bronchodilators if patient wheezing Hypokalemia Hypomagnesemia -Replaced. Continue to monitor closely with repeat a.m. labs. Chronic medical conditions Paroxysmal atrial fibrillation CAD Parkinson's disease Diabetes Chronic kidney disease -Medications reviewed and reconciled CODE STATUS: Full code DVT prophylaxis: Eliquis, held at this time secondary to need for patient to undergo EGD and possible PEG tube placement Anticipated discharge date: Clinical course to determine, possibly within the next 24 pending results of barium swallow eval. Anticipated discharge place: Back to [facility] A total of 35 minutes was spent on the care of this complex patient more than 50% of the time was spent in counseling and care coordination. I reviewed the documentation as provided by the KEVIN above, who is the original author of this note. I agree with the documented assessment and plan, with the following changes: none Objective - Vital Signs Vital signs: Vital Signs Temp 97.6 F 03/09/22 19:55 Pulse 63 03/10/22 04:00 Resp 18 03/10/22 04:00 BP 126/65 03/10/22 04:00 Pulse Ox 96 03/10/22 04:00 FiO2 28 03/07/22 19:36 Intake & Output 03/09/22 03/10/22 03/10/22 18:59 06:59 18:59 Output Total 1200 500 Balance -1200 -500 Weight 65 kg Output: Urine 1200 500 Other: Voiding Method External Catheter External Catheter - Labs CBC & Chem 7: 03/11/22 09:57 03/11/22 09:57 Labs: Abnormal Lab Results - Last 24 Hours (Table) 03/09/22 03/09/22 03/09/22 Range/Units 08:30 08:30 12:02 WBC 1.8 L (3.8-10.6) k/uL RBC 3.06 L (3.80-5.40) m/uL Hgb 10.2 L (11.4-16.0) gm/dL Hct 29.3 L (34.0-46.0) % RDW 18.4 H (11.5-15.5) % Plt Count 47 L (150-450) k/uL Potassium 3.3 L (3.5-5.1) mmol/L BUN 61 H (7-17) mg/dL Creatinine 1.48 H (0.52-1.04) mg/dL Glucose 100 H (74-99) mg/dL POC Glucose (mg/dL) 128 H (70-110) mg/dL Calcium 8.2 L (8.4-10.2) mg/dL Albumin 3.4 L (3.5-5.0) g/dL 03/09/22 Range/Units 20:27 WBC (3.8-10.6) k/uL RBC (3.80-5.40) m/uL Hgb (11.4-16.0) gm/dL Hct (34.0-46.0) % RDW (11.5-15.5) % Plt Count (150-450) k/uL Potassium (3.5-5.1) mmol/L BUN (7-17) mg/dL Creatinine (0.52-1.04) mg/dL Glucose (74-99) mg/dL POC Glucose (mg/dL) 121 H (70-110) mg/dL Calcium (8.4-10.2) mg/dL Albumin (3.5-5.0) g/dL Microbiology - Last 24 Hours (Table) 03/06/22 20:50 Blood Culture - Preliminary Blood No Growth after 72 hours 03/06/22 20:23 Blood Culture - Preliminary Blood No Growth after 72 hours
[2022-03-10] MEDS ORDERED: ACETAMINOPHEN IV (For NPO) 1,000 MG in EMPTY BAG 1 BAG IVPB STA (18:19)
[2022-03-10 20:24] LABS: Glucose,Whole Blood 135 mg/dL (70-110)
[2022-03-10 20:41] LABS: Glucose,Whole Blood 117 mg/dL (70-110)
[2022-03-11 06:27] LABS: Glucose,Whole Blood 135 mg/dL (70-110)
[2022-03-11] MEDS: FUROSEMIDE 40 MG TAB PO SCH (09:53)
[2022-03-11] MEDS: SODIUM BICARBONATE TAB 650 MG TAB PO SCH (09:53)
[2022-03-11] MEDS: CARBIDOPA-LEVODOPA 25-100 MG 1 EACH TAB PO SCH ×3 (09:53→21:11)
[2022-03-11] MEDS: GABAPENTIN 100 MG CAP PO SCH ×4 (09:53→21:11)
[2022-03-11] MEDS: LINAGLIPTIN 5 MG TABLET PO SCH (09:53)
[2022-03-11] MEDS: EZETIMIBE 10 MG TAB PO SCH (09:53)
[2022-03-11] MEDS: COLCHICINE 0.6 MG EACH PO SCH ×2 (09:54→16:51)
[2022-03-11 11:03] LABS: Albumin 3.8 g/dL (3.5-5.0); Calcium 8.6 mg/dL (8.4-10.2); Magnesium 2.3 mg/dL (1.6-2.3); Total Bilirubin 0.8 mg/dL (0.2-1.3); Total Protein 6.8 g/dL (6.3-8.2)
[2022-03-11 11:13] LABS: Anisocytosis Slight; HCT 28.7 % (34.0-46.0); HGB 9.9 gm/dL (11.4-16.0); Hypochromasia Slight; MCH 32.3 pg (25.0-35.0); MCHC 34.6 g/dL (31.0-37.0); MCV 93.4 fL (80.0-100.0); Mean Platelet Volume 12.3; Poikilocytosis Moderate; RBC 3.07 m/uL (3.80-5.40); RDW 18.5 % (11.5-15.5); WBC 1.9 k/uL (3.8-10.6)
[2022-03-11 11:16] LABS: Platelet Count 53 k/uL (150-450)
[2022-03-11 11:55] LABS: Glucose,Whole Blood 133 mg/dL (70-110)
[2022-03-11] MEDS: ONDANSETRON 4 MG/2 ML VIAL IVP PRN (13:02)
[2022-03-11] MEDS: MORPHINE SULFATE 4 MG/ML SYRINGE IV PRN (13:03)
--- NOTE | 2022-03-11 15:53 | P.PN ---
Subjective Progress Note Date: 03/11/22 Hospital course: Patient is a very pleasant 82-year-old female with a past medical history of CAD status post CABG, atrial fibrillation on anticoagulation with Eliquis, chronic diastolic CHF, COPD, HTN, HLD, CKD IIIb, type II diabetes mellitus, and Parkinson's disease. She presented to the ED on 03/07/22 with a chief complaint of acute on chronic anemia. Patient was sent from [facility] after having a weekly routine lab drawn which showed worsening anemia. Patient was recently discharged on 02/27/22 after being admitted for generalized weakness and dehydration on daily diuretic use, acute kidney injury and failure to thrive. She claimed that since discharge she had been feeling about the same. However, she gets weekly labs at the nursing facility. One of her lab work showed worsening anemia and she was sent to the hospital for evaluation. Upon arrival to the emergency department, patient underwent full evaluation. CBC completed revealing pancytopenia with WBC count of 2.0, hemoglobin 6.5, and platelet count of 74. Patient's baseline hemoglobin is around 8. Troponin 0.018 and pro-BMP of 9730. BMP did reveal slightly elevated renal function with BUN 67, creatinine 1.76, and GFR of 26 with baseline creatinine of 1.4. EKG was completed showing sinus rhythm at 62 bpm. Chest x-ray consistent with congestive mild heart failure with bilateral pleural effusions. Patient was transfused with 2 units PRBCs and started on IV diuresis with Lasix. She was admitted under our services. On the evening of 03/05/22 patient was reported to have difficulties with swallowing. She was made nothing by mouth and evaluated by speech and language pathologist. Patient underwent a swallow evaluation and reportedly failed. Speech and language pathologist recommending further evaluation for concerns of Zenker's diverticulum. I was consulted Physical exam: Patient seen and fully evaluated at bedside this morning. She has been cleared by cardiology and gastroenterology for discharge at this time. Medically patient is stable for discharge and arrangements have been made for patient to return to [facility]. We are currently awaiting insurance authorization. Patient was evaluated by palliative care and is planning to continue with palliative care upon discharge. Patient denies having any new complaints or concerns at this time. She is tolerating oral intake of her fluids. Vital signs reviewed and stable. General: Nontoxic, no distress and chronically ill-appearing. Derm: Skin warm and dry, normal coloration for ethnicity. Head: Atraumatic, normocephalic and symmetric. Eyes: EOMs intact, no lid lag, and anicteric sclera Mouth: no lip lesions, mucus membranes moist Cardiovascular: regular rate and rhythm with normal S1S2, systolic murmur, positive posterior tibial pulses bilaterally, and cap refill < 2 seconds. Lungs: Respirations even, regular, and unlabored on room air. Lungs diminished. No rhonchi, rales, or wheezes noted. No accessory muscle usage. Abdominal: soft, nontender to palpation, no guarding, no appreciable organomegaly Ext: ROM intact. No gross muscle atrophy, no edema, no contractures Neuro: Speech clear, face symmetrical and CN II-XII grossly intact with no noted focal neuro deficits Psych: Alert and oriented to person, place, time, and situation. Appropriate and pleasant affect. Assessment and Plan of Care: Acute on chronic symptomatic anemia Pancytopenia -No active blood loss -Status post 2 units of PRBCs, hemoglobin stable at 9.9 -Prior iron studies, thyroid function test, B12, folic acid levels were normal -Possibly related to bone marrow suppression, myelodysplastic syndrome on differential given high MCV -Reticulocyte count slightly low at 0.4% Acute on chronic shortness of breath, likely multifactorial Acute on chronic diastolic heart failure exacerbation -Cardiology following, clearing patient from cardiac perspective recommending outpatient follow-up in our office. -Lasix 40 mg by mouth daily -I's and O's, daily weights -Continue telemetry monitoring -Close monitoring of renal function and electrolytes while diuresing. Dysphasia -Swallow eval completed. -Patient was evaluated by speech and language pathologist recommending further evaluation for concerns of Zenker's diverticulum. 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 GI clearing patient and stated patient will need an outpatient follow-up and referral to [facility] for Zenker's diverticulum for advanced endoscopy with diverticulectomy. -Diet changed to pured diet -Aspiration precautions COPD, not in exacerbation -Pulmonology following -Bronchodilators if patient wheezing Hypokalemia Hypomagnesemia -Replaced and resolved. Continue to monitor closely with repeat a.m. labs. Chronic medical conditions Paroxysmal atrial fibrillation CAD Parkinson's disease Diabetes Chronic kidney disease -Medications reviewed and reconciled CODE STATUS: Full code DVT prophylaxis: Eliquis Anticipated discharge date: Patient is medically stable for discharge at this time pending insurance authorization for transfer back to [facility] Anticipated discharge place: [facility] A total of 33 minutes was spent on the care of this complex patient more than 50% of the time was spent in counseling and care coordination. I reviewed the documentation as provided by the KEVIN above, who is the original author of this note. I agree with the documented assessment and plan, with the following changes: none Objective - Vital Signs Vital signs: Vital Signs Temp 97.7 F 03/11/22 12:00 Pulse 66 03/11/22 12:00 Resp 22 03/11/22 12:00 BP 138/63 03/11/22 12:00 Pulse Ox 99 03/11/22 12:00 FiO2 28 03/07/22 19:36 Intake & Output 03/10/22 03/11/22 03/11/22 18:59 06:59 18:59 Intake Total 100 Output Total 700 150 Balance -600 -150 Intake: Oral 100 Output: Urine 500 150 Stool 200 Other: Voiding Method External Catheter External Catheter Bedpan # Voids 3 # Bowel Movements 1 6 - Labs CBC & Chem 7: 03/11/22 09:57 03/11/22 09:57 Labs: Abnormal Lab Results - Last 24 Hours (Table) 03/10/22 03/10/22 03/10/22 Range/Units 16:42 20:12 20:39 WBC (3.8-10.6) k/uL RBC (3.80-5.40) m/uL Hgb (11.4-16.0) gm/dL Hct (34.0-46.0) % RDW (11.5-15.5) % Plt Count (150-450) k/uL BUN (7-17) mg/dL Creatinine (0.52-1.04) mg/dL Glucose (74-99) mg/dL POC Glucose (mg/dL) 127 H 135 H 117 H (70-110) mg/dL AST (14-36) U/L Alkaline Phosphatase (38-126) U/L 03/11/22 03/11/22 03/11/22 Range/Units 06:26 09:57 09:57 WBC 1.9 L (3.8-10.6) k/uL RBC 3.07 L (3.80-5.40) m/uL Hgb 9.9 L (11.4-16.0) gm/dL Hct 28.7 L (34.0-46.0) % RDW 18.5 H (11.5-15.5) % Plt Count 53 L (150-450) k/uL BUN 65 H (7-17) mg/dL Creatinine 1.55 H (0.52-1.04) mg/dL Glucose 122 H (74-99) mg/dL POC Glucose (mg/dL) 135 H (70-110) mg/dL AST 38 H (14-36) U/L Alkaline Phosphatase 134 H (38-126) U/L 03/11/22 Range/Units 11:53 WBC (3.8-10.6) k/uL RBC (3.80-5.40) m/uL Hgb (11.4-16.0) gm/dL Hct (34.0-46.0) % RDW (11.5-15.5) % Plt Count (150-450) k/uL BUN (7-17) mg/dL Creatinine (0.52-1.04) mg/dL Glucose (74-99) mg/dL POC Glucose (mg/dL) 133 H (70-110) mg/dL AST (14-36) U/L Alkaline Phosphatase (38-126) U/L Microbiology - Last 24 Hours (Table) 03/06/22 20:50 Blood Culture - Preliminary Blood No Growth after 96 hours 03/06/22 20:23 Blood Culture - Preliminary Blood No Growth after 96 hours
--- NOTE | 2022-03-11 16:17 | P.PN ---
Subjective Progress Note Date: 03/11/22 The patient is a 82-year-old female who presented to the emergency room on 03/06/22 with shortness of breath. She has multiple comorbidities and has had frequent hospitalizations She has a past medical history significant for anemia, COPD, CAD, paroxysmal A. fib, heart failure with preserved ejection fraction, hypertension, dyslipidemia, type 2 diabetes, Parkinson's disease, and CKD3. She was recently discharged on 02/27/22 after being admitted for generalized weakness and dehydration on daily diuretic use, acute kidney injury and failure to thrive. Upon arrival to the emergency department, patient underwent full evaluation. CBC completed revealing pancytopenia with WBC count of 2.0, hemoglobin 6.5, and platelet count of 74. Patient's baseline hemoglobin is around 8. Troponin 0.018 and pro-BMP of 9730. BMP did reveal slightly elevated renal function with BUN 67, creatinine 1.76, and GFR of 26 with baseline creatinine of 1.4. EKG was completed showing sinus rhythm at 62 bpm. Chest x-ray consistent with congestive mild heart failure with bilateral pleural effusions. Patient was transfused with 2 units PRBCs and started on IV diuresis with Lasix. She is also complaining of occasional generalized abdominal pain. She occasionally gets left-sided chest pain as well. She denied any nausea, vomiting, diarrhea, constipation, or urinary complaints. She denies any smoking, alcohol use, or illicit drug use. She claims that she has not been out of bed and walking for the last 2 weeks. 03/09 Upon entering the room the patient was resting in bed and appeared short of breath. The GI CORPORATE GIVING MANAGER was present and explaining to the patient that they would like to scope her tomorrow to help determine if she has a GI bleed. The patient is agreeable to having a scope tomorrow, however she voiced that she does want a feeding tube placed. CODE STATUS was addressed with the patient who immediately became agitated. She stated she was tired of everyone asking the same questions. It was explained to her that we only want to honor her wishes. CODE STATUS was explained in detail to the patient. She kept saying "I don't know". I explained to her that in this case she would remain a full code which would include chest compressions, cardioversion, and being placed on a ventilator if her heart were to stop. She shrugged her shoulders and closed her eyes. A technical laboratory asst came in to draw some blood and she again was irritated. I told her that her healthcare moving forward is entirely in her hands. She can make decisions for herself and choose to continue with aggressive treatment or head down a comfort pathway. She said that she doesn't want to talk anymore. She stated she just wants to sleep and asked me to leave. I told her I would call her POA who is her brother, Farhan, and update him. She rolled her eyes and shrugged her shoulders. I told her that I would follow up with her tomorrow after her scope with GI. Attempted to reach Farhan via telephone, but it went straight to voice mail. Left message requesting callback. Objective - Vital Signs Vital signs: Vital Signs Temp 97.7 F 03/11/22 12:00 Pulse 66 03/11/22 12:00 Resp 22 03/11/22 12:00 BP 138/63 03/11/22 12:00 Pulse Ox 99 03/11/22 12:00 FiO2 28 03/07/22 19:36 Intake & Output 03/10/22 03/11/22 03/11/22 18:59 06:59 18:59 Intake Total 100 Output Total 700 150 Balance -600 -150 Intake: Oral 100 Output: Urine 500 150 Stool 200 Other: Voiding Method External Catheter External Catheter Bedpan # Voids 3 # Bowel Movements 1 6 - Exam General: Well developed, well nourished. No acute distress. Chronically ill appearing HEENT: Head is atraumatic, normocephalic. Hard of hearing CV: Heart regular in rate and rhythm positive S1 and S2. Peripheral pulses equal. 2/4 Lungs: Diminished throughout. No wheezes rales or rhonchi. Respirations labored. Abdomen/GI: Soft. No guarding, rigidity. + abdominal tenderness. : No suprapubic tenderness. Musculoskeletal/ Extremities: PAZ, no contractures. No gross atrophy. + generalized weakness Skin: Warm and dry Neurologic: Awake, alert and oriented times 3. CN II-XII grossly intact. No f ocal deficits. Psychiatric: Flat affect. - Labs CBC & Chem 7: 03/11/22 09:57 03/11/22 09:57 Labs: Abnormal Lab Results - Last 24 Hours (Table) 11/03/10/22 03/10/22 Range/Units 16:42 20:12 20:39 WBC (3.8-10.6) k/uL RBC (3.80-5.40) m/uL Hgb (11.4-16.0) gm/dL Hct (34.0-46.0) % RDW (11.5-15.5) % Plt Count (150-450) k/uL BUN (7-17) mg/dL Creatinine (0.52-1.04) mg/dL Glucose (74-99) mg/dL POC Glucose (mg/dL) 127 H 135 H 117 H (70-110) mg/dL AST (14-36) U/L Alkaline Phosphatase (38-126) U/L 03/11/22 03/11/22 03/11/22 Range/Units 06:26 09:57 09:57 WBC 1.9 L (3.8-10.6) k/uL RBC 3.07 L (3.80-5.40) m/uL Hgb 9.9 L (11.4-16.0) gm/dL Hct 28.7 L (34.0-46.0) % RDW 18.5 H (11.5-15.5) % Plt Count 53 L (150-450) k/uL BUN 65 H (7-17) mg/dL Creatinine 1.55 H (0.52-1.04) mg/dL Glucose 122 H (74-99) mg/dL POC Glucose (mg/dL) 135 H (70-110) mg/dL AST 38 H (14-36) U/L Alkaline Phosphatase 134 H (38-126) U/L 03/11/22 Range/Units 11:53 WBC (3.8-10.6) k/uL RBC (3.80-5.40) m/uL Hgb (11.4-16.0) gm/dL Hct (34.0-46.0) % RDW (11.5-15.5) % Plt Count (150-450) k/uL BUN (7-17) mg/dL Creatinine (0.52-1.04) mg/dL Glucose (74-99) mg/dL POC Glucose (mg/dL) 133 H (70-110) mg/dL AST (14-36) U/L Alkaline Phosphatase (38-126) U/L Microbiology - Last 24 Hours (Table) 03/06/22 20:50 Blood Culture - Preliminary Blood No Growth after 96 hours 03/06/22 20:23 Blood Culture - Preliminary Blood No Growth after 96 hours Assessment and Plan Assessment: Symptoms * Pain - 7/10 abdominal pain. Continue Morphine, Tylenol, and Neurotin * Fatigue - + generalized weakness, fatigue, and debility. Continue PT/OT and Fesol * SOB - + sob at rest. Currently on 4L NC. Continue Lasix * Insomnia - No * N/V - Occasional, Continue Zofran prn * Anxiety - No * Depression - No * Confusion -No * Agitation - Yes - mild * Hallucinations - No * Appetite/weight loss - Decreased appetite, no recent weight loss * Dysphagia - Yes, TELEGRAPHIC INSTRUMENT SUPERVISOR consulted, swallow eval done. Continue dysphagia level I pured diet and aspiration precautions * Constipation - No, continue Dulcolax and milk of magnesia and Fleet enema as needed. LBM 03/11 * Incontinence - yes, external catheter in placed * Itch - no * Cough - no Plan: Summary/Goals - The patient is resting in bed. She appears short of breath at rest and is on 2 L nasal cannula. She states she feels better today but complains of abdominal pain. She has been cleared for discharge by medicine and is planning to return to [facility]. Insurance authorization pending. The patient has agreed to outpatient palliative care. qual research manager notified. Recommendations - return to [facility] with outpatient palliative care Advanced Directives - On file Code Status - Full Code Thank you for this consultation Kimberly Cheema [facility] [id number] Email: [email or web address] Time with Patient: Less than 30
[2022-03-11] MEDS: CYANOCOBALAMIN 500 MCG TAB PO SCH (16:51)
[2022-03-11] MEDS: CALCIUM CARB-VIT D 500 MG-5 MCG TAB PO SCH (16:51)
[2022-03-11] MEDS: ATORVASTATIN 10 MG TAB PO SCH (16:51)
[2022-03-11] MEDS: FOLIC ACID 1 MG TAB PO SCH (16:51)
[2022-03-11] MEDS: FERROUS SULFATE 325 MG TAB PO SCH (16:51)
[2022-03-11] MEDS: ASPIRIN 81 MG PO SCH (16:51)
[2022-03-11 17:07] LABS: Glucose,Whole Blood 117 mg/dL (70-110)
[2022-03-11 20:18] LABS: Glucose,Whole Blood 113 mg/dL (70-110)
[2022-03-12 05:03] VITALS: TEMP 97.5
[2022-03-12 06:07] LABS: Glucose,Whole Blood 117 mg/dL (70-110)
[2022-03-12] MEDS: FUROSEMIDE 40 MG TAB PO SCH (09:36)
[2022-03-12] MEDS: GABAPENTIN 100 MG CAP PO SCH ×2 (09:36→11:34)
[2022-03-12] MEDS: EZETIMIBE 10 MG TAB PO SCH (09:36)
[2022-03-12] MEDS: LINAGLIPTIN 5 MG TABLET PO SCH (09:36)
[2022-03-12] MEDS: SODIUM BICARBONATE TAB 650 MG TAB PO SCH (09:36)
[2022-03-12] MEDS: CARBIDOPA-LEVODOPA 25-100 MG 1 EACH TAB PO SCH ×2 (09:36→11:34)
[2022-03-12] MEDS: COLCHICINE 0.6 MG EACH PO SCH (09:36)
[2022-03-12] MEDS: MORPHINE SULFATE 4 MG/ML SYRINGE IV PRN ×2 (11:34→17:53)
[2022-03-12 11:50] LABS: Glucose,Whole Blood 131 mg/dL (70-110)
--- NOTE | 2022-03-12 12:08 | P.DS ---
Providers Date of admission: 03/06/22 23:18 Expected date of discharge: 03/12/22 Attending physician: Sol Mcnamara DO Consults: 03/06/22 23:18 Consult Physician Routine Consulting Provider: Venkat Roblero Consult Reason/Comments: copd Do you want consulting provider notified?: Yes Consult Physician Routine Consulting Provider: Minh Short Consult Reason/Comments: chf Do you want consulting provider notified?: Yes 03/08/22 14:54 Consult to Palliative Care Routine Consulting Provider: Kimberly Cheema Consult Reason/Comments: Multiple comorbidities, recurrent hospitalizations Do you want consulting provider notified?: Yes Primary care physician: Benson Boswell Hospital Course: Discharge Diagnosis: Acute on chronic symptomatic anemia, status post 2 units PRBCs hemoglobin stable at 9.9. Pancytopenia, chronic Acute on chronic shortness of breath, likely multifactorial Acute on chronic diastolic heart failure exacerbation. Patient underwent successful IV diuresis during hospitalization. She is discharged back to custodial facility with no changes made to daily cardiac medication regimen. Patient to resume daily cardiac medication regimen with lovastatin, Eliquis, aspirin, hydralazine, and furosemide. Dysphagia secondary to Zenker's diverticulum. -Patient was evaluated by speech and language pathologist recommending further evaluation for concerns of Zenker's diverticulum. -Capping Machine Operator consulted and took patient for barium swallow evaluation Confirming diagnosis of Zenker's diverticulum at the level of her cervical thoracic junction. GI clearing patient and stated patient will need an outpatient follow-up and referral to [facility] for Zenker's diverticulum for advanced endoscopy with diverticulectomy. -Diet changed to pured diet and medications to be crushed prior to administration -Aspiration precautions COPD, not in exacerbation Hypokalemia, resolved Hypomagnesemia, resolved Paroxysmal atrial fibrillation, continue anticoagulation with Eliquis, CAD, Patient to resume daily cardiac medication regimen with lovastatin, Eliquis, aspirin, hydralazine, and furosemide. Parkinson's disease. Continue daily medication regimen with carbidopa levodopa Diabetes. Monitor blood glucose levels and continue daily medication regimen with Januvia Chronic kidney disease stage III, patient was started on sodium bicarb tablets. Renal function consistent with stage III CKD with BUN 65, creatinine 1.55 and GFR of 31 upon discharge. Hospital Course: Patient is a very pleasant 82-year-old female with a past medical history of CAD status post CABG, atrial fibrillation on anticoagulation with Eliquis, chronic diastolic CHF, COPD, HTN, HLD, CKD IIIb, type II diabetes mellitus, and Parkinson's disease. She presented to the ED on 03/07/22 with a chief complaint of acute on chronic anemia. Patient was sent from [facility] after having a weekly routine lab drawn which showed worsening anemia. Patient was recently discharged on 02/27/22 after being admitted for generalized weakness and dehydration on daily diuretic use, acute kidney injury and failure to thrive. She claimed that since discharge she had been feeling about the same. However, she gets weekly labs at the nursing facility. One of her lab work showed worsening anemia and she was sent to the hospital for evaluation. Upon arrival to the emergency department, patient underwent full evaluation. CBC completed revealing pancytopenia with WBC count of 2.0, hemoglobin 6.5, and platelet count of 74. Patient's baseline hemoglobin is around 8. Troponin 0.018 and pro-BMP of 9730. BMP did reveal slightly elevated renal function with BUN 67, creatinine 1.76, and GFR of 26 with baseline creatinine of 1.4. EKG was completed showing sinus rhythm at 62 bpm. Chest x-ray consistent with congestive mild heart failure with bilateral pleural effusions. Patient was transfused with 2 units PRBCs and started on IV diuresis with Lasix. She was admitted under our services with consults to cardiology and pulmonology. Patient had successful diuresis during hospitalization and cleared by both cardiology and pulmonology for discharge back to custodial [facility]. However, on the evening of 03/05/22 patient was reported to have difficulties with swallowing. She was made nothing by mouth and evaluated by speech and language pathologist. Patient underwent a swallow evaluation and failed. Speech and language pathologist recommending further evaluation for concerns of Zenker's diverticulum. Capping Machine Operator consulted and took patient for barium swallow evaluation Confirming diagnosis of Zenker's diverticulum at the level of her cervical thoracic junction. GI clearing patient and stated patient will need an outpatient follow-up outpatient in their office to obtain a referral to [facility] for Zenker's diverticulum for advanced endoscopy with diverticulectomy. Patient is medically stable at this time in stable for discharge back to custodial [facility], [facility]. Physical exam: Vital signs reviewed and stable. General: Nontoxic, no distress and chronically ill-appearing. Derm: Skin warm and dry, normal coloration for ethnicity. Head: Atraumatic, normocephalic and symmetric. Eyes: EOMs intact, no lid lag, and anicteric sclera Mouth: no lip lesions, mucus membranes moist Cardiovascular: regular rate and rhythm with normal S1S2, systolic murmur, positive posterior tibial pulses bilaterally, and cap refill < 2 seconds. Lungs: Respirations even, regular, and unlabored on room air. Lungs diminished. No rhonchi, rales, or wheezes noted. No accessory muscle usage. Abdominal: soft, nontender to palpation, no guarding, no appreciable organomegaly Ext: ROM intact. No gross muscle atrophy, no edema, no contractures Neuro: Speech clear whispering voice, face symmetrical and CN II-XII grossly intact with no noted focal neuro deficits Psych: Alert and oriented to person, place, time, and situation. Appropriate and pleasant affect. A total of 38 minutes of time were spent preparing this complex discharge summary. Pt was discharged on 03/12/22 at 11:44 AM. I reviewed the documentation as provided by the KEVIN above, who is the original author of this note. I agree with the documented assessment and plan, with the following changes: none Patient Condition at Discharge: Stable Plan - Discharge Summary Discharge Rx Participant: No New Discharge Prescriptions: New Sodium Bicarbonate Tab 650 mg PO DAILY #0 tab Continue Ezetimibe [Zetia] 10 mg PO DAILY@0800 Lovastatin [Mevacor] 10 mg PO DAILY@1700 Cyanocobalamin [Vitamin B-12] 500 mcg PO DAILY@1700 Apixaban [Eliquis] 2.5 mg PO BID@0800,1700 sitaGLIPtin [Januvia] 50 mg PO DAILY@0800 Aspirin EC [Ecotrin Low Dose] 81 mg PO DAILY@1700 Folic Acid 1 mg PO DAILY@1700 hydrALAZINE HCL [Apresoline] 25 mg PO TID@0800,1400,2100 PRN PRN Reason: Hold for SBP > 125 Na Phos,M-B/Na Phos,Di-Ba [Fleet Adult] 133 ml RECTAL DAILY PRN PRN Reason: Constipation bisacodyL [Dulcolax] 10 mg RECTAL DAILY PRN PRN Reason: Constipation Furosemide [Lasix] 40 mg PO DAILY@0800 Magnesium Hydroxide [Milk of Magnesia Concentrate] 7,200 mg PO DAILY PRN PRN Reason: Constipation Ferrous Sulfate [Iron (65 MG Elemental)] 325 mg PO DAILY@170 Colchicine [Mitigare] 0.6 mg PO BID@0800,1700 Acetaminophen Tab [Tylenol] 650 mg PO Q4HR PRN PRN Reason: Fever And/ Or Pain Carbidopa-Levodopa 25-100 mg [Sinemet 25-100 mg] 1 tab PO TID@0800,1400,2099 Shen/D3/Mag11/Zinc/Road Roller Operator Hot Mix/[place]/Bor [Caltrate 600+D Plus Tablet] 1 tab PO DAILY@170 Loperamide HCl [Imodium A-D] 2 - 4 mg PO QID PRN MDD 8MG PRN Reason: Diarrhea Ondansetron [Ondansetron Odt] 4 mg PO Q8H PRN PRN Reason: Nausea Changed Gabapentin [Neurontin] 100 mg PO QID@08,,, #12 cap Discharge Medication List Ezetimibe [Zetia] 10 mg PO DAILY@79911/20/13 [History] Lovastatin [Mevacor] 10 mg PO DAILY@169911/20/13 [History] Apixaban [Eliquis] 2.5 mg PO BID@0800,17002/17/20 [History] Cyanocobalamin [Vitamin B-12] 500 mcg PO DAILY@169902/17/20 [History] Ferrous Sulfate [Iron (65 MG Elemental)] 325 mg PO DAILY@169902/05/21 [History] Aspirin EC [Ecotrin Low Dose] 81 mg PO DAILY@169907/19/21 [History] Colchicine [Mitigare] 0.6 mg PO BID@0800,169907/19/21 [History] sitaGLIPtin [Januvia] 50 mg PO DAILY@79907/19/21 [History] Folic Acid 1 mg PO DAILY@169910/22/21 [History] Acetaminophen Tab [Tylenol] 650 mg PO Q4HR PRN 11/25/21 [History] hydrALAZINE HCL [Apresoline] 25 mg PO TID@0800,1400,2100 PRN 11/25/21 [History] Carbidopa-Levodopa 25-100 mg [Sinemet 25-100 mg] 1 tab PO TID@0800,1400,2100 12/09/21 [History] Shen/D3/Mag11/Zinc/Road Roller Operator Hot Mix/[place]/Bor [Caltrate 600+D Plus Tablet] 1 tab PO DAILY@1700 02/23/22 [History] Furosemide [Lasix] 40 mg PO DAILY@0800 03/06/22 [History] Loperamide HCl [Imodium A-D] 2 - 4 mg PO QID PRN MDD 8MG 03/06/22 [History] Magnesium Hydroxide [Milk of Magnesia Concentrate] 7,200 mg PO DAILY PRN 03/06/22 [History] Na Phos,M-B/Na Phos,Di-Ba [Fleet Adult] 133 ml RECTAL DAILY PRN 03/06/22 [History] Ondansetron [Ondansetron Odt] 4 mg PO Q8H PRN 03/06/22 [History] bisacodyL [Dulcolax] 10 mg RECTAL DAILY PRN 03/06/22 [History] Gabapentin [Neurontin] 100 mg PO QID@08,12,17,21 #12 cap 03/12/22 [Rx] Sodium Bicarbonate Tab 650 mg PO DAILY #0 tab 03/12/22 [Rx] Follow up Appointment(s)/Referral(s): Danyell Hutchins MD [STAFF PHYSICIAN] - [facility] [NON-STAFF] - Benson Boswell MD [Primary Care Provider] - 1-2 days Activity/Diet/Wound Care/Special Instructions: Activity: As tolerated. Take breaks as needed. Aspiration precautions Diet: Pured Heart healthy and carb consistent diet. Avoid salts, or foods with hidden salts such as canned or boxed foods and frozen dinners. Extra salt makes your heart work harder and traps the fluid in your body for longer. Pills will need to be crushed pending outpatient evaluation with java web application developer at [facility] and further recommendations. Special Instructions: Take all of your medications as directed and remember to keep all of your doctor's appointments and follow-up as needed. Patient will need to follow-up with Dr. Hutchins in her office in one week for an outpatient referral to [facility] for Zenker's diverticulum and advanced endoscopy with diverticulectomy. Thank you for allowing us to participate in your care, it was truly a pleasure having you for our patient!!! Discharge Disposition: TRANSFER TO SNF/ECF
[2022-03-12 14:42] VITALS: BMI 19.1
[2022-03-12 14:50] VITALS: BP 140/62; PULSE 65; RESP 22
[2022-03-12 16:27] LABS: Glucose,Whole Blood 121 mg/dL (70-110)
== END 2022-03-12 18:14 | DRG 291 ==
LOC: EC 19:35 → 3SCARD 23:18
PROVIDERS: ADMIT Internal Medicine; ATTEND Internal Medicine
PROC: 30233N1 Transfusion of Nonautologous Red Blood Cells into Peripheral Vein, Percutaneous Approach (ICD-10-PCS; principal; 2022-03-07)
PROC: 3E0F7SF Introduction of Other Gas into Respiratory Tract, Via Natural or Artificial Opening (ICD-10-PCS; 2022-03-07)
DX: I13.0 Hypertensive heart and chronic kidney disease with heart failure and stage 1 through stage 4 chronic kidney disease, or unspecified chronic kidney disease (principal); I50.33 Acute on chronic diastolic (congestive) heart failure; I48.19 Other persistent atrial fibrillation; J44.1 Chronic obstructive pulmonary disease with (acute) exacerbation; D62 Acute posthemorrhagic anemia; D61.818 Other pancytopenia; E87.20 Acidosis, unspecified; I25.10 Atherosclerotic heart disease of native coronary artery without angina pectoris; Z20.822 Contact with and (suspected) exposure to COVID-19; I48.92 Unspecified atrial flutter; N39.0 Urinary tract infection, site not specified; R62.7 Adult failure to thrive; K22.4 Dyskinesia of esophagus; Z51.5 Encounter for palliative care; D64.9 Anemia, unspecified; E11.22 Type 2 diabetes mellitus with diabetic chronic kidney disease; G20 Parkinson's disease; K29.70 Gastritis, unspecified, without bleeding; E11.41 Type 2 diabetes mellitus with diabetic mononeuropathy; E78.5 Hyperlipidemia, unspecified; N18.32 Chronic kidney disease, stage 3b; Z86.16 Personal history of COVID-19; Z87.891 Personal history of nicotine dependence; E83.42 Hypomagnesemia; E87.6 Hypokalemia; E11.42 Type 2 diabetes mellitus with diabetic polyneuropathy; I25.2 Old myocardial infarction; I27.20 Pulmonary hypertension, unspecified; R29.6 Repeated falls; K22.89 Other specified disease of esophagus; M81.0 Age-related osteoporosis without current pathological fracture; Z98.42 Cataract extraction status, left eye; Z98.41 Cataract extraction status, right eye; Z86.010 Personal history of colon polyps; Z91.81 History of falling; Z87.820 Personal history of traumatic brain injury; K22.5 Diverticulum of esophagus, acquired; R07.89 Other chest pain; M10.9 Gout, unspecified; E11.51 Type 2 diabetes mellitus with diabetic peripheral angiopathy without gangrene; R09.02 Hypoxemia; R13.10 Dysphagia, unspecified; K59.00 Constipation, unspecified; S31.010A Laceration without foreign body of lower back and pelvis without penetration into retroperitoneum, initial encounter; Z79.01 Long term (current) use of anticoagulants; Z79.82 Long term (current) use of aspirin; Z79.84 Long term (current) use of oral hypoglycemic drugs; Z79.899 Other long term (current) drug therapy; Z87.19 Personal history of other diseases of the digestive system; Z87.442 Personal history of urinary calculi; Z90.710 Acquired absence of both cervix and uterus; Z95.1 Presence of aortocoronary bypass graft; Z88.5 Allergy status to narcotic agent; Z88.6 Allergy status to analgesic agent
CPT/HCPCS: 36415; 71045; 71046; 74220; 74230; 80048; 80053; 83605; 83735; 83880; 84100; 84484; 85025; 85027; 85045; 85379; 85610; 85730; 86850; 86900; 86901; 86920; 87040; 87324; 87635; 93005; 94760; 96374; 99291

== ENCOUNTER 2022-03-12 22:15 | Emergency (ER) | payer MEDICARE, OTHER ==
[2022-03-12] MEDS ORDERED: IPRATROPIUM-ALBUTEROL 3 ML NEB INHALATION STA (22:24)
--- NOTE | 2022-03-12 22:24 | ED ---
SOB HPI - General Stated Complaint: SOB Time Seen by Provider: 03/12/22 22:21 Source: RN notes reviewed, old records reviewed, Caregiver Mode of arrival: EMS Limitations: no limitations, altered mental status - History of Present Illness Initial Comments: This is an 82-year-old female to the emergency department for evaluation. Today patient presents for shortness of breath. Patient evaluated area for shortness of breath difficulty breathing. Patient has presenting from extended-care facility on arrival patient was very argumentative and angry. Fighting with staff. Patient has no fevers. No chest pain. No real complaints aside from shortness of breath MD Complaint: shortness of breath (Patient is in no distress), anxiety -: unknown Severity: moderate Severity scale (1-10): 4 Quality: dull Consistency: intermittent Improves With: nothing Worsens With: nothing Known History Of: COPD, congestive heart failure Associated Symptoms: chest pain, cough Treatments Prior to Arrival: none - Related Data Home Medications Medication Instructions Recorded Confirmed Ezetimibe [Zetia] 10 mg PO DAILY@0800 11/20/13 03/06/22 Lovastatin [Mevacor] 10 mg PO DAILY@1700 11/20/13 03/06/22 Apixaban [Eliquis] 2.5 mg PO BID@0800,1700 02/17/20 03/06/22 Cyanocobalamin [Vitamin B-12] 500 mcg PO DAILY@1700 02/17/20 03/06/22 Ferrous Sulfate [Iron (65 MG 325 mg PO DAILY@1700 02/05/21 03/06/22 Elemental)] Aspirin EC [Ecotrin Low Dose] 81 mg PO DAILY@1700 07/19/21 03/06/22 Colchicine [Mitigare] 0.6 mg PO BID@0800,1700 07/19/21 03/06/22 sitaGLIPtin [Januvia] 50 mg PO DAILY@0800 07/19/21 03/06/22 Folic Acid 1 mg PO DAILY@1700 10/22/21 03/06/22 Acetaminophen Tab [Tylenol] 650 mg PO Q4HR PRN 11/25/21 03/06/22 hydrALAZINE HCL [Apresoline] 25 mg PO TID@0800,1400,2100 PRN 11/25/21 03/06/22 Carbidopa-Levodopa 25-100 mg 1 tab PO TID@0800,1400,2100 12/09/21 03/06/22 [Sinemet 25-100 mg] Shen/D3/Mag11/Zinc/[employer]er/[place]/Bor 1 tab PO DAILY@1700 02/23/22 03/06/22 [Caltrate 600+D Plus Tablet] Furosemide [Lasix] 40 mg PO DAILY@0800 03/06/22 03/06/22 Loperamide HCl [Imodium A-D] 2 - 4 mg PO QID PRN MDD 8MG 03/06/22 03/06/22 Magnesium Hydroxide [Milk of 7,200 mg PO DAILY PRN 03/06/22 03/06/22 Magnesia Concentrate] Na Phos,M-B/Na Phos,Di-Ba [Fleet 133 ml RECTAL DAILY PRN 03/06/22 03/06/22 Adult] Ondansetron [Ondansetron Odt] 4 mg PO Q8H PRN 03/06/22 03/06/22 bisacodyL [Dulcolax] 10 mg RECTAL DAILY PRN 03/06/22 03/06/22 Previous Rx's Medication Instructions Recorded Gabapentin [Neurontin] 100 mg PO QID@08,12,17,21 #12 cap 03/12/22 Sodium Bicarbonate Tab 650 mg PO DAILY #0 tab 03/12/22 Allergies Allergy/AdvReac Type Severity Reaction Status Date / Time tuberculin, purified protein Allergy Per Saige Verified 03/12/22 22:55 deriva albuterol [From DuoNeb] AdvReac Nausea Verified 03/12/22 22:55 cortisone AdvReac PAIN Verified 03/12/22 22:55 hydrocodone AdvReac Nausea Verified 03/12/22 22:55 ipratropium [From DuoNeb] AdvReac Nausea Verified 03/12/22 22:55 procaine HCl [From Novocain] AdvReac pain Verified 03/12/22 22:55 allergy medicines AdvReac "dries me Uncoded 03/12/22 22:55 out, bloody noses,generalized pain" Review of Systems ROS Statement: Those systems with pertinent positive or pertinent negative responses have been documented in the HPI. ROS Other: All systems not noted in ROS Statement are negative. Past Medical History Past Medical History: Atrial Fibrillation, Atrial Flutter, Coronary Artery Disease (CAD), Heart Failure, COPD, Diabetes Mellitus, GERD/Reflux, Hyperl ipidemia, Hypertension, Myocardial Infarction ([place]), Musculoskeletal Disorder, Renal Disease, Respiratory Disorder, Sleep Apnea/CPAP/BIPAP, Vascular Disorder Additional Past Medical History / Comment(s): NIDDM type II, neuropathy bilateral legs/feet, CKD stage III, nephrolithiasis, anemia, diastolic CHF, cardiac valve disease, pulmonary htn, home oxygen prn, afib/flutter with RVR, pt states she fell one year ago and suffered 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 Last Myocardial Infarction Date:: 1999 History of Any Multi-Drug Resistant Organisms: VRE Date of last positivie culture/infection: 11/06/21 MDRO Source:: Urine Past Surgical History: Appendectomy, Coronary Bypass/CABG, Heart Catheterization, Hysterectomy, Tonsillectomy Additional Past Surgical History / Comment(s): 1999 CABG 4 vessel, BETHEL/cardioversion, abdominal aortagrams/bilateral runoffs, R atherectomy/PTBA/stent to R SFA, R neck benign lymph node removed, cysto/lithotripsy/aborted d/t unable to visualize stone, EGD, colonoscopy Past Anesthesia/Blood Transfusion Reactions: Motion Sickness Additional Past Anesthesia/Blood Transfusion Reaction / Comment(s): Pt has motion sickness/clausterphobia. Past Psychological History: No Psychological Hx Reported Additional Psychological History / Comment(s): . Smoking Status: Former smoker Past Alcohol Use History: None Reported Additional Past Alcohol Use History / Comment(s): . Past Drug Use History: None Reported - Past Family History Brother(s) Family Medical History: Cancer Son(s) Family Medical History: Cancer, Myocardial Infarction ([place]) Sister(s) Family Medical History: Cancer Mother Family Medical History: COPD, Myocardial Infarction ([place]) Additional Family Medical History / Comment(s): mother of [place]-pt cannot recall at what age. General Exam General appearance: alert, in no apparent distress, anxious Head exam: Present: atraumatic, normocephalic, normal inspection Eye exam: Present: normal appearance, PERRL, EOMI. Absent: scleral icterus, conjunctival injection, periorbital swelling ENT exam: Present: normal exam, mucous membranes moist Neck exam: Present: normal inspection. Absent: tenderness, meningismus, lymphadenopathy Respiratory exam: Present: normal lung sounds bilaterally. Absent: respiratory distress, wheezes, rales, rhonchi, stridor Cardiovascular Exam: Present: regular rate, normal rhythm, normal heart sounds. Absent: systolic murmur, diastolic murmur, rubs, gallop, clicks GI/Abdominal exam: Present: soft, normal bowel sounds. Absent: distended, tenderness, guarding, rebound, rigid Extremities exam: Present: normal inspection, full ROM, normal capillary refill. Absent: tenderness, pedal edema, joint swelling, calf tenderness Back exam: Present: normal inspection Neurological exam: Present: alert, oriented X3, CN II-XII intact Psychiatric exam: Present: normal affect, normal mood Skin exam: Present: warm, dry, intact, normal color. Absent: rash Course Vital Signs 03/12/22 03/12/22 03/12/22 22:55 23:18 23:24 Temperature 98.1 F Pulse Rate 75 77 80 Respiratory 15 Rate Blood Pressure 104/47 O2 Sat by Pulse 99 Oximetry - Reevaluation(s) Reevaluation #1: 03/13/22 00:12 Medical record is reviewed Reevaluation #2: 03/13/22 00:12 Patient with no complaints no distress Reevaluation #3: 03/13/22 00:12 Patient informed results and questions answered Medical Decision Making - Medical Decision Making 82 female DF for evaluation shortness of breath no acute cause found normal x- ray normal lab values anemia is resolved oxygen is normal patient can be discharged home - Lab Data Result diagrams: 03/12/22 22:31 03/12/22 22:31 Lab Results 03/12/22 03/12/22 03/12/22 Range/Units 22:31 22:31 22:31 WBC 2.7 L (3.8-10.6) k/uL RBC 2.98 L (3.80-5.40) m/uL Hgb 9.8 L (11.4-16.0) gm/dL Hct 27.8 L (34.0-46.0) % MCV 93.4 (80.0-100.0) fL MCH 32.9 (25.0-35.0) pg MCHC 35.2 (31.0-37.0) g/dL RDW 18.1 H (11.5-15.5) % Plt Count 53 L (150-450) k/uL MPV 13.7 Neutrophils % (Manual) 78 % Band Neuts % (Manual) 1 % Lymphocytes % (Manual) 11 % Monocytes % (Manual) 9 % Metamyelocytes % 1 % Neutrophils # (Manual) 2.10 (1.3-7.7) k/uL Lymphocytes # (Manual) 0.30 L (1.0-4.8) k/uL Monocytes # (Manual) 0.24 (0-1.0) k/uL Metamyelocytes # (Man) 0.03 H (0) k/uL Nucleated RBCs 0 (0-0) /100 WBC Manual Slide Review Performed Hypochromasia Slight Poikilocytosis Marked Poikilocytosis (manual Present Anisocytosis Slight PT 14.2 H (9.0-12.0) sec INR 1.4 H (<1.2) APTT 28.5 (22.0-30.0) sec Sodium 144 (137-145) mmol/L Potassium 4.1 (3.5-5.1) mmol/L Chloride 106 (98-107) mmol/L Carbon Dioxide 27 (22-30) mmol/L Anion Gap 11 mmol/L BUN 95 H (7-17) mg/dL Creatinine 2.03 H (0.52-1.04) mg/dL Est GFR (CKD-EPI)AfAm 26 (>60 ml/min/1.73 sqM) Est GFR (CKD-EPI)NonAf 22 (>60 ml/min/1.73 sqM) Glucose 141 H (74-99) mg/dL Plasma Lactic Acid Roderick (0.7-2.0) mmol/L Calcium 8.5 (8.4-10.2) mg/dL Phosphorus 3.7 (2.5-4.5) mg/dL Magnesium 2.3 (1.6-2.3) mg/dL Total Bilirubin 0.8 (0.2-1.3) mg/dL AST 50 H (14-36) U/L ALT 15 (4-34) U/L Alkaline Phosphatase 151 H (38-126) U/L Troponin I (0.000-0.034) ng/mL NT-Pro-B Natriuret Pep pg/mL Total Protein 6.8 (6.3-8.2) g/dL Albumin 3.7 (3.5-5.0) g/dL Blood Type Blood Type Recheck Bld Type Recheck Status Antibody Screen Spec Expiration Date 03/12/22 03/12/22 03/12/22 Range/Units 22:31 22:31 22:31 WBC (3.8-10.6) k/uL RBC (3.80-5.40) m/uL Hgb (11.4-16.0) gm/dL Hct (34.0-46.0) % MCV (80.0-100.0) fL MCH (25.0-35.0) pg MCHC (31.0-37.0) g/dL RDW (11.5-15.5) % Plt Count (150-450) k/uL MPV Neutrophils % (Manual) % Band Neuts % (Manual) % Lymphocytes % (Manual) % Monocytes % (Manual) % Metamyelocytes % % Neutrophils # (Manual) (1.3-7.7) k/uL Lymphocytes # (Manual) (1.0-4.8) k/uL Monocytes # (Manual) (0-1.0) k/uL Metamyelocytes # (Man) (0) k/uL Nucleated RBCs (0-0) /100 WBC Manual Slide Review Hypochromasia Poikilocytosis Poikilocytosis (manual Anisocytosis PT (9.0-12.0) sec INR (<1.2) APTT (22.0-30.0) sec Sodium (137-145) mmol/L Potassium (3.5-5.1) mmol/L Chloride (98-107) mmol/L Carbon Dioxide (22-30) mmol/L Anion Gap mmol/L BUN (7-17) mg/dL Creatinine (0.52-1.04) mg/dL Est GFR (CKD-EPI)AfAm (>60 ml/min/1.73 sqM) Est GFR (CKD-EPI)NonAf (>60 ml/min/1.73 sqM) Glucose (74-99) mg/dL Plasma Lactic Acid Roderick 1.4 (0.7-2.0) mmol/L Calcium (8.4-10.2) mg/dL Phosphorus (2.5-4.5) mg/dL Magnesium (1.6-2.3) mg/dL Total Bilirubin (0.2-1.3) mg/dL AST (14-36) U/L ALT (4-34) U/L Alkaline Phosphatase (38-126) U/L Troponin I 0.045 H* (0.000-0.034) ng/mL NT-Pro-B Natriuret Pep 6340 pg/mL Total Protein (6.3-8.2) g/dL Albumin (3.5-5.0) g/dL Blood Type Blood Type Recheck Bld Type Recheck Status Antibody Screen Spec Expiration Date 03/12/22 Range/Units 22:31 WBC (3.8-10.6) k/uL RBC (3.80-5.40) m/uL Hgb (11.4-16.0) gm/dL Hct (34.0-46.0) % MCV (80.0-100.0) fL MCH (25.0-35.0) pg MCHC (31.0-37.0) g/dL RDW (11.5-15.5) % Plt Count (150-450) k/uL MPV Neutrophils % (Manual) % Band Neuts % (Manual) % Lymphocytes % (Manual) % Monocytes % (Manual) % Metamyelocytes % % Neutrophils # (Manual) (1.3-7.7) k/uL Lymphocytes # (Manual) (1.0-4.8) k/uL Monocytes # (Manual) (0-1.0) k/uL Metamyelocytes # (Man) (0) k/uL Nucleated RBCs (0-0) /100 WBC Manual Slide Review Hypochromasia Poikilocytosis Poikilocytosis (manual Anisocytosis PT (9.0-12.0) sec INR (<1.2) APTT (22.0-30.0) sec Sodium (137-145) mmol/L Potassium (3.5-5.1) mmol/L Chloride (98-107) mmol/L Carbon Dioxide (22-30) mmol/L Anion Gap mmol/L BUN (7-17) mg/dL Creatinine (0.52-1.04) mg/dL Est GFR (CKD-EPI)AfAm (>60 ml/min/1.73 sqM) Est GFR (CKD-EPI)NonAf (>60 ml/min/1.73 sqM) Glucose (74-99) mg/dL Plasma Lactic Acid Roderick (0.7-2.0) mmol/L Calcium (8.4-10.2) mg/dL Phosphorus (2.5-4.5) mg/dL Magnesium (1.6-2.3) mg/dL Total Bilirubin (0.2-1.3) mg/dL AST (14-36) U/L ALT (4-34) U/L Alkaline Phosphatase (38-126) U/L Troponin I (0.000-0.034) ng/mL NT-Pro-B Natriuret Pep pg/mL Total Protein (6.3-8.2) g/dL Albumin (3.5-5.0) g/dL Blood Type A Positive Blood Type Recheck A Pos Bld Type Recheck Status No Antibody Screen NEGATIVE Spec Expiration Date 03/15/20222330 - EKG Data -: EKG Interpreted by Me (EKG is A. fib 84 QRS 102 QTC 438) - Radiology Data Radiology results: report reviewed (Chest x-rays negative for acute disease), image reviewed Disposition Clinical Impression: Anemia, COPD (chronic obstructive pulmonary disease), Weakness, CHF (congestive heart failure) Disposition: HOME SELF-CARE Condition: Fair Is patient prescribed a controlled substance at d/c from ED?: No Referrals: Ming Fraire MD [Primary Care Provider] - 1-2 days Time of Disposition: 00:15
--- NOTE | 2022-03-12 22:52 | XR ---
EXAMINATION TYPE: XR chest 1V portable DATE OF EXAM: 03/12/2022 COMPARISON: 03/09/2022 HISTORY: Short of breath TECHNIQUE: FINDINGS: Heart is enlarged. There is some infiltrate and atelectasis left lung base. There is mild p ulmonary congestion. There are sternal wires. There is slight blunting of the costophrenic angles. IMPRESSION: Mild congestive heart failure which is not significantly different than last exam. Mild i nfiltrate and atelectasis left lower lobe. No change
[2022-03-12 22:53] LABS: Anisocytosis Slight; HCT 27.8 % (34.0-46.0); HGB 9.8 gm/dL (11.4-16.0); Hypochromasia Slight; MCH 32.9 pg (25.0-35.0); MCHC 35.2 g/dL (31.0-37.0); MCV 93.4 fL (80.0-100.0); Mean Platelet Volume 13.7; Poikilocytosis Marked; RBC 2.98 m/uL (3.80-5.40); RDW 18.1 % (11.5-15.5); WBC 2.7 k/uL (3.8-10.6)
[2022-03-12 23:02] VITALS: RESP 15; TEMP 98.1
[2022-03-12 23:12] LABS: INR 1.4 (<1.2); Partial Thromboplastin Time 28.5 sec (22.0-30.0); Prothrombin Time 14.2 sec (9.0-12.0)
[2022-03-12 23:14] LABS: Platelet Count 53 k/uL (150-450)
[2022-03-12 23:18] LABS: Albumin 3.7 g/dL (3.5-5.0); Calcium 8.5 mg/dL (8.4-10.2); Magnesium 2.3 mg/dL (1.6-2.3); Phosphorus 3.7 mg/dL (2.5-4.5); Potassium 4.1 mmol/L (3.5-5.1); Total Bilirubin 0.8 mg/dL (0.2-1.3); Total Protein 6.8 g/dL (6.3-8.2)
[2022-03-12 23:56] LABS: Band Neutrophils % 1 %; Metamyelocytes # (M) 0.03 k/uL (0); Metamyelocytes % 1 %; Monocytes # (M) 0.24 k/uL (0-1.0); Neutrophils % (M) 78 %; Nucleated Red Blood Cells 0 /100 WBC (0-0); Total Cells Counted 100
[2022-03-12 23:57] LABS: Poikilocytosis (M) Present
[2022-03-13 00:48] VITALS: BP 109/59; PULSE 91
== END 2022-03-13 02:29 | disposition home or self-care (01) ==
LOC: EC 22:15
DX: J44.9 Chronic obstructive pulmonary disease, unspecified (principal); I50.30 Unspecified diastolic (congestive) heart failure; D64.9 Anemia, unspecified; R53.1 Weakness; I48.91 Unspecified atrial fibrillation; I25.10 Atherosclerotic heart disease of native coronary artery without angina pectoris; K21.9 Gastro-esophageal reflux disease without esophagitis; E78.5 Hyperlipidemia, unspecified; I13.0 Hypertensive heart and chronic kidney disease with heart failure and stage 1 through stage 4 chronic kidney disease, or unspecified chronic kidney disease; E11.9 Type 2 diabetes mellitus without complications; I25.2 Old myocardial infarction; N18.30 Chronic kidney disease, stage 3 unspecified; Z87.891 Personal history of nicotine dependence; Z88.7 Allergy status to serum and vaccine; Z88.1 Allergy status to other antibiotic agents; Z88.5 Allergy status to narcotic agent; Z88.8 Allergy status to other drugs, medicaments and biological substances; Z79.82 Long term (current) use of aspirin; Z79.899 Other long term (current) drug therapy; Z79.01 Long term (current) use of anticoagulants
CPT/HCPCS: 36415; 71045; 80053; 83605; 83735; 83880; 84100; 84484; 85025; 85610; 85730; 86850; 86900; 86901; 93005; 94640; 99285